=== PATIENT | male | born 1940 | race Caucasian/White ===

== ENCOUNTER → 2017-04-22 | Outpatient (CLI) | payer MEDICARE, OTHER ==
[~2017-04-22] MED LIST: AGM875T PO; ALPR-557 PO; ALPR0.5T22 PO; ALPR1TAB21; AMLO10TA PO; AMLO5TAB2 PO; ASP325TEC PO; ASPI-892; ATOR80TA PO; CLIN150C2 PO; CRV25T PO; DOXE25CA2 PO; DOXE50CA3; FENO135C PO; FISH1CAP15 PO; GBPN600T; MELA1TAB11 PO; MULT-608 PO; NIAC1CAP PO; OMEP40CA36 PO; OMG1KC; OXYC-199 PO; TMSL.4C; VALS1TAB12 PO; VALS1TAB4; WARF5TAB6 PO; WARF7.5T; WRF5T; WRF5T PO
--- NOTE | 2017-04-22 14:35 | Diagnostic Imaging Report ---
PROCEDURE: CT abdomen and pelvis without contrast. TECHNIQUE: Multiple contiguous axial images were obtained through the abdomen and pelvis without the use of intravenous contrast. INDICATION: Hematuria. COMPARISON: 02/14/2014. FINDINGS: There is minimal atelectasis and scarring. Lobulated contour of the liver is seen compatible with chronic liver disease or cirrhosis. There is no ascites. There is a calcified gallstone with no CT evidence of cholecystitis. The spleen, the adrenal glands, and the pancreas appear unremarkable for an unenhanced exam. Prominent vascular calcifications are seen in the upper abdomen and in the aortoiliac arterial segments. No aortic aneurysm. The kidneys demonstrate no hydronephrosis. No urinary tract stone is seen. There is no significant free fluid or fluid collection in the abdomen or pelvis. The prostate is enlarged at 5.8 cm in transverse dimension. A few colonic diverticula are seen with no evidence of diverticulitis. The osseous structures appear grossly unremarkable. IMPRESSION: 1. The prostate is enlarged. 2. No urinary tract stones or hydronephrosis. 3. Lobulated contour of the liver is suggestive of underlying chronic liver disease or cirrhosis. Dictated by: Dictated on workstation # [id number]
== END ==
LOC: RAD 12:33
PROVIDERS: ATTEND Urology
DX: N40.0 Benign prostatic hyperplasia without lower urinary tract symptoms (principal); R31.9 Hematuria, unspecified
CPT/HCPCS: 74176

== ENCOUNTER 2017-09-13 11:44 | Inpatient (IN) | payer MEDICARE, OTHER ==
[2017-09-13] VITALS (9 sets, daily range): BP systolic 121–143; BP diastolic 58–85
[~2017-09-13] VITALS: Ht 180.3 cm; Wt 85.0 kg
--- OUTSIDE RECORDS SUMMARY | 2017-09-13 12:16 | XMS REPORT | CCD ---
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 Name Role Phone PP Unavailable CCM Unavailable Summary Purpose Interface Exchange Insurance Providers Payer name Policy type / Coverage type Covered alliance party ID Effective Begin Date Effective End Date [place] Medicare Part B [id number] 2013 Unknown [facility] Medicare Part B [id number] 2013 Unknown Family history Mother Diagnosis Age At Onset No Family Disease Entered N/A Daughter Diagnosis Age At Onset No Family Disease Entered N/A Son Diagnosis Age At Onset No Family Disease Entered N/A Sister Diagnosis Age At Onset No Family Disease Entered N/A Son Diagnosis Age At Onset No Family Disease Entered N/A Father Diagnosis Age At Onset No Family Disease Entered N/A Daughter Diagnosis Age At Onset No Family Disease Entered N/A Daughter Diagnosis Age At Onset No Family Disease Entered N/A Social History Social History Element Codes Description Effective Dates Marital status Unknown Cheryle 03/21/2015 Living arrangements Unknown House 02/01/2013 Employment 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 smoked cigars 4 daily x 20 years. quit totally Jan 2011 01/29/[address]: 200742753 Never drinks alcohol quit 198601/29/2011 Has the patient ever used illegal drugs? 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 ICD-9: V58.61 ICD-10: Z79.01 Active 08/22/2014 Unknown Urinary tract infection, site not specified ICD-9: 599.0 ICD-10: N39.0 Active 04/05/2017 Unknown Essential (primary) hypertension ICD-9: 401.9 ICD-10: I10 Active 01/18/2014 Unknown Low back pain ICD-9: 724.2 ICD-10: M54.5 Active 04/06/2016 Unknown Mixed hyperlipidemia ICD-9: 272.4 ICD-10: E78.2 Active 03/19/2014 Unknown Cervicalgia ICD-9: 723.1 ICD-10: M54.2 Active 04/06/2016 Unknown Cough ICD-9: 786.2 ICD-10: R05 Active 10/21/2011 Unknown Encounter for general adult medical examination with abnormal findings ICD-9: V70.0 ICD-10: Z00.01 Active 04/16/2016 Unknown Encounter for immunization ICD-9: V04.81 ICD-10: Z23 Active 02/20/2016 Unknown Other secondary pulmonary hypertension ICD-9: 416.8 ICD-10: I27.2 Active 06/24/2015 Unknown Encounter for immunization ICD-9: V03.9 ICD-10: Z23 Active 03/19/2015 Unknown Pain in left knee ICD- 9: 719.46 ICD-10: M25.562 Active 02/21/2015 Unknown Pneumonia, unspecified organism ICD-9: 486 ICD-10: J18.9 Active 02/21/2015 Unknown Left knee pain ICD-9: 719.46 Active 12/27/2014 Unknown ESSENTIAL HYPERTENSION ICD-9: 401.9 Active 01/18/2014 Unknown H/O long-term (current) use of anticoagulants ICD-9: V58.61 Active 08/22/2014 Unknown HYPERLIPIDEMIA ICD-9: 272.4 Active 03/19/2014 Unknown Diarrhea ICD-9: 787.91 Active 03/05/2014 Unknown Abdominal abscess ICD- 9: 567.22 Active 02/19/2014 Unknown Cellulitis of oral soft tissues ICD-9: 528.3 Active 02/13/2014 Unknown Abdominal pain ICD-9: 789.00 Active 01/18/2014 Unknown Dehydration ICD-9: 276.51 Active 01/18/2014 Unknown FEVER NOS ICD-9: 780.60 Active 01/18/2014 Unknown Nausea alone ICD-9: 787.02 Active 01/18/2014 Unknown Rebound tenderness ICD -9: 789.60 Active 01/18/2014 Unknown Renal insufficiency ICD-9: 593.9 Active 01/18/2014 Unknown Right lower quadrant abdominal pain ICD-9: 789.03 Active 2013 Unknown Nodule of tongue ICD-9 : 784.2 Active 10/10/2013 Unknown VAC STREP PNEUMONIAE-FLU ICD-9: V06.6 Active 02/01/2013 Unknown VACCIN FOR INFLUENZA ICD-9: V04.81 Active 02/01/2013 Unknown Multiple actinic keratoses ICD-9: 702.0 Active 09/01/2012 Unknown Myalgia ICD-9: 729.1 Active 07/13/2012 Unknown CRP elevated ICD-9: 790.95 Active 07/07/2012 Unknown BACTERIAL PNEUMONIA NEC ICD-9: 482.89 Active 06/28/2012 Unknown Constipation ICD-9: 564.00 Active 05/25/2012 Unknown Constipation - functional ICD-9: 564.09 Active 10/21/2011 Unknown COUGH ICD-9: 786.2 Active 10/21/2011 Unknown Sacroiliitis ICD-9: 720.2 Active 06/24/2011 Unknown Fatigue ICD-9: 780.79 Active 03/23/2011 Unknown Cyst of ear canal ICD- 9: 380.89 Active 02/03/2011 Unknown Atrial fibrillation Unknown Active 01/29/2011 Unknown BPH Unknown Active 01/29/2011 Unknown Coronary Artery Disease Unknown Active 01/29/2011 Unknown Hyperlipidemia Unknown Active 01/29/2011 Unknown Hypertension Unknown Active 01/29/2011 Unknown peripheral neuropathy Unknown Active 01/29/2011 Unknown HYPOTENSION ICD-9: 458.9 Active 01/29/2011 Unknown PNEUMONIA (CAP) ICD-9 : 486 Active 01/29/2011 Unknown Problems Condition Codes Effective Dates Condition Status custodial (current) use of anticoagulants ICD-9: V58.61 ICD-10: Z79.01 08/22/2014 Active Urinary tract infection, site not specified ICD-9: 599.0 ICD-10: N39.0 04/05/2017 Active Essential (primary) hypertension ICD-9: 401.9 ICD-10: I10 01/18/2014 Active Low back pain ICD-9: 724.2 ICD-10: M54.5 04/06/2016 Active Mixed hyperlipidemia ICD-9: 272.4 ICD-10: E78.2 03/19/2014 Active Cervicalgia ICD-9: 723.1 ICD-10: M54.2 04/06/2016 Active Cough ICD-9: 786.2 ICD-10: R05 10/21/2011 Active Encounter for general adult medical examination with abnormal findings ICD-9: V70.0 ICD-10: Z00.01 04/16/2016 Active Encounter for immunization ICD-9: V04.81 ICD-10: Z23 02/20/2016 Active Other secondary pulmonary hypertension ICD-9: 416.8 ICD-10: I27.2 06/24/2015 Active Encounter for immunization ICD-9: V03.9 ICD-10: Z23 03/19/2015 Active Pain in left knee ICD- 9: 719.46 ICD-10: M25.562 02/21/2015 Active Pneumonia, unspecified organism ICD-9: 486 ICD-10: J18.9 02/21/2015 Active Left knee pain ICD-9: 719.46 12/27/2014 Active ESSENTIAL HYPERTENSION ICD-9: 401.9 01/18/2014 Active H/O long-term (current) use of anticoagulants ICD-9: V58.61 08/22/2014 Active HYPERLIPIDEMIA ICD-9: 272.4 03/19/2014 Active Diarrhea ICD-9: 787.91 03/05/2014 Active Abdominal abscess ICD- 9: 567.22 02/19/2014 Active Cellulitis of oral soft tissues ICD-9: 528.3 02/13/2014 Active Abdominal pain ICD-9: 789.00 01/18/2014 Active Dehydration ICD-9: 276.51 01/18/2014 Active FEVER NOS ICD-9: 780.60 01/18/2014 Active Nausea alone ICD-9: 787.02 01/18/2014 Active Rebound tenderness ICD -9: 789.60 01/18/2014 Active Renal insufficiency ICD-9: 593.9 01/18/2014 Active Right lower quadrant abdominal pain ICD-9: 789.03 01/18/2014 Active Nodule of tongue ICD-9 : 784.2 10/10/2013 Active VAC STREP PNEUMONIAE-FLU ICD-9: V06.6 02/01/2013 Active VACCIN FOR INFLUENZA ICD-9: V04.81 02/01/2013 Active Multiple actinic keratoses ICD-9: 702.0 09/01/2012 Active Myalgia ICD-9: 729.1 07/13/2012 Active CRP elevated ICD-9: 790.95 07/07/2012 Active BACTERIAL PNEUMONIA NEC ICD-9: 482.89 06/28/2012 Active Constipation ICD-9: 564.00 05/25/2012 Active Constipation - functional ICD-9: 564.09 10/21/2011 Active COUGH ICD-9: 786.2 10/21/2011 Active Sacroiliitis ICD-9: 720.2 06/24/2011 Active Fatigue ICD-9: 780.79 03/23/2011 Active Cyst of ear canal ICD- 9: 380.89 02/03/2011 Active Atrial fibrillation Unknown 01/29/2011 Active BPH Unknown 01/29/2011 Active Coronary Artery Disease Unknown 01/29/2011 Active Hyperlipidemia Unknown 01/29/2011 Active Hypertension Unknown 01/29/2011 Active peripheral neuropathy Unknown 01/29/2011 Active HYPOTENSION ICD-9: 458.9 01/29/2011 Active PNEUMONIA (CAP) ICD-9 : 486 01/29/2011 Active Medications Medication Codes Instructions Start Date Stop Date Status Fill Instructions amlodipine 10 mg tablet RxNorm: 516666 Tablet(s) TAKE ONE TABLET BY MOUTH DAILY 05/25/2017 02/18/2018 Active valsartan 160 mg tablet RxNorm: 259842 TAKE ONE TABLET BY MOUTH DAILY 04/26/2017 10/22/2017 Active carvedilol 25 mg tablet RxNorm: 781046 TAKE ONE TABLET BY MOUTH TWICE A DAY 03/22/2017 12/16/2017 Active Flomax 0.4 mg capsule RxNorm: 061768 TAKE ONE CAPSULE BY MOUTH DAILY 03/15/2017 03/09/2018 Active amlodipine 10 mg tablet RxNorm: 845463 TAKE ONE TABLET BY MOUTH DAILY 02/25/2017 05/24/2017 Inactive fenofibrate nanocrystallized 145 mg tablet RxNorm: 860650 TAKE ONE TABLET BY MOUTH DAILY 02/09/2017 12/05/2017 Active valsartan 160 mg tablet RxNorm: 246164 TAKE ONE TABLET BY MOUTH DAILY 01/25/2017 04/25/2017 Inactive Lipitor 80 mg tablet RxNorm: 625933 TAKE ONE TABLET BY MOUTH AT BEDTIME 11/04/2016 10/29/2017 Active valsartan 160 mg tablet RxNorm: 544640 TAKE ONE TABLET BY MOUTH DAILY 10/21/2016 01/24/2017 Inactive fenofibrate nanocrystallized 145 mg tablet RxNorm: 736933 TAKE ONE TABLET BY MOUTH DAILY 10/06/2016 02/08/2017 Inactive amlodipine 10 mg tablet RxNorm: 905437 1 Tablet(s) PO daily 02/20/2017 Inactive amlodipine 10 mg tablet RxNorm: 562670 1 Tablet(s) PO daily 09/23/2016 Inactive carvedilol 25 mg tablet RxNorm: 630946 TAKE ONE TABLET BY MOUTH TWICE A DAY 09/22/2016 03/20/2017 Inactive Coumadin 5 mg tablet RxNorm: 508434 TAKE 1 TABLET BY MOUTH ON WEDNESDAY , WEDNESDAY, WEDNESDAY, WEDNESDAY AND SUNDAYS. TAKE 1/2 TABLET BY MOUTH ON THURSDAYS. 07/07/2016 04/02/2017 Inactive fenofibrate nanocrystallized 145 mg tablet RxNorm: 553344 TAKE ONE TABLET BY MOUTH DAILY 06/10/2016 10/05/2016 Inactive valsartan 160 mg tablet RxNorm: 230219 1 Tablet(s) PO daily 04/201610/16/2016 Inactive Flomax 0.4 mg capsule RxNorm: 644544 TAKE ONE CAPSULE BY MOUTH DAILY 04/10/2016 03/05/2017 Inactive carvedilol 25 mg tablet RxNorm: 982210 TAKE ONE TABLET BY MOUTH TWICE A DAY 03/23/2016 09/18/2016 Inactive fenofibrate nanocrystallized 145 mg tablet RxNorm: 976962 TAKE ONE TABLET BY MOUTH DAILY 01/14/2016 06/09/2016 Inactive Coumadin 5 mg tablet RxNorm: 851504 Tablet(s) take 5mg daily except 1/2 pill wednesday/wednesday12/19/2015 07/06/2016 Inactive Coumadin 5 mg tablet RxNorm: 632417 Tablet(s) take 5mg wednesday/wednesday/wednesday/ wednesday and 1/2 pill wednesday//wednesday12/18/2015 12/18/2015 Inactive Lipitor 80 mg tablet RxNorm: 914940 TAKE ONE TABLET BY MOUTH AT BEDTIME 11/11/2015 11/04/2016 Inactive Lipitor 80 mg tablet RxNorm: 655604 TAKE ONE TABLET BY MOUTH AT BEDTIME 11/11/2015 11/04/2016 Inactive Lipitor 80 mg tablet RxNorm: 274889 TAKE ONE TABLET BY MOUTH AT BEDTIME 11/11/2015 11/04/2016 Inactive Lipitor 80 mg tablet RxNorm: 828444 TAKE ONE TABLET BY MOUTH AT BEDTIME 11/11/2015 11/03/2016 Inactive Coumadin 5 mg tablet RxNorm: 978923 Tablet(s) TAKE 1 TABLET BY MOUTH DAILY 10/29/2015 10/28/2015 Inactive betamethasone dipropionate 0.05 % topical ointment RxNorm: 881727 1 Application TOP QID 10/29/2015 11/04/2015 Inactive amlodipine 5 mg tablet RxNorm: 410268 1 Tablet(s) PO daily 09/23/2016 Inactive Coumadin 5 mg tablet RxNorm: 501561 Tablet(s) take 5mg wednesday/wednesday/wednesday/ wednesday/wednesday and 1/2 pill wednesday/10/29/2015 12/17/2015 Inactive valsartan 160 mg tablet RxNorm: 793963 1 Tablet(s) PO daily 04/17/2016 Inactive Norvasc 10 mg tablet RxNorm: 373632 Tablet(s) TAKE ONE TABLET BY MOUTH EVERY DAY 10/01/2015 10/28/2015 Inactive Norvasc 10 mg tablet RxNorm: 758804 Tablet(s) TAKE ONE TABLET BY MOUTH EVERY DAY 09/30/2015 09/30/2015 Inactive carvedilol 25 mg tablet RxNorm: 646848 TAKE ONE TABLET BY MOUTH TWICE A DAY 09/24/2015 03/21/2016 Inactive Coumadin 5 mg tablet RxNorm: 820801 TAKE 1 TABLET BY MOUTH ON WEDNESDAY , WEDNESDAY, WEDNESDAY, WEDNESDAY AND SUNDAYS. TAKE 1/2 TABLET BY MOUTH ON THURSDAYS. 06/28/2015 10/28/2015 Inactive fenofibrate nanocrystallized 145 mg tablet RxNorm: 474772 1 Tablet(s) PO daily 06/25/2015 01/13/2016 Inactive Diovan 160 mg tablet RxNorm: 278415 TAKE ONE TABLET BY MOUTH EVERY MORNING 05/17/2015 06/24/2015 Inactive Keflex 500 mg capsule RxNorm: 654425 1 Capsule(s) PO TID 201405/05/2015 Inactive Keflex 500 mg capsule RxNorm: 269670 1 Capsule(s) PO TID 201404/28/2015 Inactive Trilipix 135 mg capsule,delayed release RxNorm: 485441 TAKE ONE CAPSULE BY MOUTH DAILY 04/08/2015 06/24/2015 Inactive Flomax 0.4 mg capsule RxNorm: 480745 TAKE ONE CAPSULE BY MOUTH DAILY 04/03/2015 03/27/2016 Inactive Flomax 0.4 mg capsule RxNorm: 967321 Capsule(s) TAKE ONE CAPSULE BY MOUTH DAILY 04/03/2015 04/02/2015 Inactive carvedilol 25 mg tablet RxNorm: 426919 1 Tablet(s) PO BID 03/2609/21/2015 Inactive Trilipix 135 mg capsule,delayed release RxNorm: 532895 1 Capsule(s) PO daily 03/04/2015 04/02/2015 Inactive Levaquin 500 mg tablet RxNorm: 052122 1 Tablet(s) PO daily 10/201402/18/2015 Inactive Levaquin 500 mg tablet RxNorm: 357622 1 Tablet(s) PO daily 04/201512/25/2014 Inactive Lipitor 80 mg tablet RxNorm: 733788 1 Tablet(s) PO QH 201411/07/2015 Inactive Lipitor 80 mg tablet RxNorm: 706857 1 Tablet(s) PO QH 201411/12/2014 Inactive Norvasc 10 mg tablet RxNorm: 065621 TAKE ONE TABLET BY MOUTH EVERY DAY 09/26/2014 09/20/2015 Inactive Flomax 0.4 mg capsule RxNorm: 564324 TAKE ONE CAPSULE BY MOUTH DAILY 09/13/2014 03/11/2015 Inactive Norvasc 10 mg tablet RxNorm: 202818 Tablet(s) PO TAKE ONE TABLET BY MOUTH EVERY DAY 08/23/2014 09/25/2014 Inactive [SAVINGS FOR NON-COVERED DRUGS -- BIN:759839, PCN: ASPROD1, Group: XXXXX, ID# [id number], Questions: . THIS IS NOT INSURANCE.] Diovan 160 mg tablet RxNorm: 500900 1 Tablet(s) PO QAM 201402/17/2015 Inactive [SAVINGS FOR NON-COVERED DRUGS -- BIN:054022, PCN: ASPROD1, Group: XXXXX, ID # [id number], Questions: . THIS IS NOT INSURANCE.] Coumadin 5 mg tablet RxNorm: 903793 TAKE 1 TABLET BY MOUTH ON WEDNESDAY , WEDNESDAY, WEDNESDAY, WEDNESDAY AND SUNDAYS. TAKE 1/2 TABLET BY MOUTH ON THURSDAYS. 07/27/2014 06/21/2015 Inactive Diovan 160 mg tablet RxNorm: 315477 1/2 Tablet(s) PO BID 201408/21/2014 Inactive [SAVINGS FOR UNINSURED PATIENTS -- BIN:649064, PCN: ASPROD1, Group: [id number], ID # [id number], Process claim through MedImpact, for questions: . THIS IS NOT INSURANCE.] Diovan 320 mg tablet RxNorm: 523017 1/2 Tablet(s) PO BID 201305/22/2014 Inactive [SAVINGS FOR UNINSURED PATIENTS -- BIN:092088, PCN: ASPROD1, Group: [id number], ID # [id number], Process claim through MedImpact, for questions: . THIS IS NOT INSURANCE.] Flomax 0.4 mg capsule RxNorm: 445145 1 Capsule(s) PO daily 03/0509/12/2014 Inactive [SAVINGS FOR UNINSURED PATIENTS -- BIN:774896, PCN: ASPROD1, Group: [id number], ID# [id number], Process claim through MedImpact, for questions: . THIS IS NOT INSURANCE.] ciprofloxacin 500 mg tablet RxNorm: 967749 1 Tablet(s) PO BID 02/14/2014 02/23/2014 Inactive [SAVINGS FOR UNINSURED PATIENTS -- BIN:577746, PCN: ASPROD1, Group: [id number], ID# [id number], Process claim through MedImpact, for questions: [phone]. THIS IS NOT INSURANCE.] ciprofloxacin 500 mg tablet RxNorm: 326293 1 Tablet(s) PO BID 02/14/2014 02/13/2014 Inactive Flagyl 500 mg tablet RxNorm: 869509 1 Tablet(s) PO TID 201302/13/2014 Inactive Flagyl 500 mg tablet RxNorm: 659035 1 Tablet(s) PO TID 201302/23/2014 Inactive [SAVINGS FOR UNINSURED PATIENTS -- BIN:700078, PCN: ASPROD1, Group: [id number], ID # [id number], Process claim through MedImpact, for questions: . THIS IS NOT INSURANCE.] clindamycin 150 mg capsule RxNorm: 562192 1 Capsule(s) PO QID 02/13/2014 02/13/2014 Inactive [SAVINGS FOR UNINSURED PATIENTS -- BIN:299744, PCN: ASPROD1, Group: [id number], ID# [id number], Process claim through MedImpact, for questions: [phone]. THIS IS NOT INSURANCE.] Diovan 320 mg tablet RxNorm: 911417 1/2 Tablet(s) PO BID 201303/04/2014 Inactive [SAVINGS FOR UNINSURED PATIENTS -- BIN:537252, PCN: ASPROD1, Group: [id number], ID # [id number], Process claim through MedImpact, for questions: . THIS IS NOT INSURANCE.] triamcinolone acetonide 0.1 % topical ointment RxNorm: 7241914 1 Application TOP PRN 01/02/2014 01/01/2014 Inactive triamcinolone acetonide 0.1 % topical ointment RxNorm: 5153386 1 Application TOP PRN 01/02/2014 06/24/2015 Inactive [SAVINGS FOR UNINSURED PATIENTS -- BIN:069807, PCN: ASPROD1, Group: [id number], ID# [id number], Process claim through MedImpact, for questions: . THIS IS NOT INSURANCE.] Norvasc 10 mg tablet RxNorm: 247072 Tablet(s) PO TAKE ONE TABLET BY MOUTH EVERY DAY 08/28/2013 08/27/2013 Inactive Norvasc 10 mg tablet RxNorm: 029409 Tablet(s) PO TAKE ONE TABLET BY MOUTH EVERY DAY 08/28/2013 08/27/2013 Inactive Norvasc 10 mg tablet RxNorm: 565273 Tablet(s) PO TAKE ONE TABLET BY MOUTH EVERY DAY 08/28/2013 03/04/2014 Inactive Coumadin 5 mg tablet RxNorm: 002931 Tablet(s) PO TAKE ONE TABLET BY MOUTH ON WEDNESDAY, WED, WEDNESDAY, SAT. AND WEDNESDAY . TAKE 1/2 TABLET ON Thursdays07/10/2013 10/28/2015 Inactive Coumadin 5 mg tablet RxNorm: 244631 Tablet(s) PO TAKE ONE TABLET BY MOUTH ON WEDNESDAY, WED, WEDNESDAY, SAT. AND WEDNESDAY . TAKE 1/2 TABLET ON Thursdays07/10/2013 07/09/2013 Inactive Zithromax Z-Marcelo 250 mg tablet RxNorm: 331398 1 Tablet(s) PO UD 05/01/2013 05/05/2013 Inactive cefdinir 300 mg capsule RxNorm: 055249 1 Capsule(s) PO BID 05/07/2013 Inactive Senna-S 8.6 mg-50 mg tablet RxNorm: 179628 Tablet(s) PO TAKE ONE TABLET BY MOUTH TWICE A DAY 03/24/2013 03/04/2014 Inactive Senna-S 8.6 mg-50 mg tablet RxNorm: 830358 Tablet(s) PO TAKE ONE TABLET BY MOUTH TWICE A DAY 11/22/2012 03/23/2013 Inactive Norvasc 10 mg tablet RxNorm: 401018 Tablet(s) PO TAKE ONE TABLET BY MOUTH EVERY DAY 09/22/2012 08/27/2013 Inactive Coumadin 5 mg tablet RxNorm: 588953 Tablet(s) PO 07/04/2012 07/09/2013 Inactive 5mg Wed Sat Sun2.5 levofloxacin 500 mg tablet RxNorm: 368181 1 Tablet(s) PO daily 1.5 pills daily on days #1, #2, then one pill daily thereafter 06/28/2012 07/02/2012 Inactive Levaquin 500 mg tablet RxNorm: 239307 Tablet(s) PO 1.5 tabs on day 1 & 2, 1 tab on days 3,4,5,6 06/28/2012 08/31/2012 Inactive 1.5 tabs on day 1 & 2, 1 tab on days 3,4,5,6 Coumadin 5 mg tablet RxNorm: 938298 Tablet(s) PO 06/20/2012 07/03/2012 Inactive 5mg Mon Wed Frid Sat Sun2.5 Thurs Coumadin 5 mg tablet RxNorm: 140509 Tablet(s) PO 05/25/2012 06/19/2012 Inactive 5mg Mon Wed Frid Sat Sun2.5 Tu Th Norvasc 10 mg tablet RxNorm: 994996 1 Tablet(s) PO 05/25/2012 09/21/2012 Inactive Senna-S 8.6 mg-50 mg tablet RxNorm: 857250 1 Tablet(s) PO BID 05/25/2012 11/20/2012 Inactive Senna-S 8.6 mg-50 mg tablet RxNorm: 659697 1 Tablet(s) PO BID 04/29/2012 05/24/2012 Inactive Kenalog 40 mg/mL Susp for Injection RxNorm: 3770618 Milliliter(s) Inj 03/17/2012 03/17/2012 Inactive cefdinir 300 mg capsule RxNorm: 339355 1 Capsule(s) PO BID 12/201103/23/2012 Inactive Rocephin 500 mg Solution for Injection RxNorm: 986266 Inj 03/1703/17/2012 Inactive Vitamin D2 50,000 unit Cap RxNorm: 299196 1 Capsule(s) PO QW 08/01/2015 Inactive 50,000 weekly for 3 months then 1000 units daily thereafter Senna-S 8.6 mg-50 mg tablet RxNorm: 829793 1 Tablet(s) PO BID 10/21/2011 04/17/2012 Inactive Coumadin 5 mg Tab RxNorm: 084759 Tablet(s) PO 06/15/2011 06/14/2011 Inactive 5mg Mon Wed Frid Sat2.5 Tues Thurs Sat Coumadin 5 mg tablet RxNorm: 438467 Tablet(s) PO 06/15/2011 05/24/2012 Inactive 5mg Mon Wed Frid Sat2.5 Tues Th Sun Norvasc 5 mg tablet RxNorm: 177697 1 Tablet(s) PO daily 201005/21/2012 Inactive Rocephin 1 gram Solution for Injection RxNorm: 491359 Inj 01/3010/21/2011 Inactive Levaquin 500 mg Tab RxNorm: 116742 1 Tablet(s) PO daily 201010/21/2011 Inactive Rocephin 1 gram Solution for Injection RxNorm: 820414 Inj 01/2901/29/2011 Inactive cyclobenzaprine 5 mg tablet RxNorm: 995668 1 Tablet(s) PO Q8 as needed No Start Date Active aspirin 81 mg Tab RxNorm: 877674 1 Tablet(s) PO daily No Start Date Active Centrum Silver Tab RxNorm: 1 Tablet(s) PO daily No Start Date Active melatonin 3 mg tablet RxNorm: 053769 1 Tablet(s) PO QHS No Start Date Active alprazolam 0.5 mg tablet RxNorm: 453467 1 Tablet(s) PO TID as needed No Start Date Active polyethylene glycol 3350 17 gram oral powder packet RxNorm: 704397 17 Gram(s) PO daily No Start Date Active Fish Oil 1,000 mg Cap RxNorm: 4 Capsule(s) PO QH No Start Date 06/24/2015 Inactive Miralax 17 gram Oral Powder Packet RxNorm: 124130 1 PO daily No Start Date 03/04/2014 Inactive carvedilol 25 mg Tab RxNorm: 828910 1 Tablet(s) PO BID No Start Date 03/25/2015 Inactive Diovan 320 mg tablet RxNorm: 341947 1/2 Tablet(s) PO BID No Start Date 02/11/2014 Inactive doxepin 25 mg Cap RxNorm: 2678749 Capsule(s) PO No Start Date 03/04/2014 Inactive one bid and 2 at hs valsartan 160 mg tablet RxNorm: 611296 1 Tablet(s) PO daily No Start Date 10/20/2015 Inactive promethazine-codeine 6.25 mg-10 mg/5 mL Syrup RxNorm: 683559 5-10 Milliliter(s) PO Q4 PRN No Start Date 10/21/2011 Inactive Diovan HCT 320 mg-12.5 mg Tab RxNorm: 850277 1/2 Tablet(s) PO BID No Start Date 05/25/2012 Inactive niacin ER 500 mg Tab RxNorm: 813106 2 Tablet(s) PO QH No Start Date 08/21/2014 Inactive Vitamin D2 50,000 unit Cap RxNorm: 462813 1 Capsule(s) PO QW No Start Date 10/22/2011 Inactive 50,000 weekly for 3 months then 1000 units daily thereafter Trilipix 135 mg Cap RxNorm: 624636 1 Capsule(s) PO daily No Start Date 08/13/2014 Inactive Lipitor 80 mg Tab RxNorm: 808012 1 Tablet(s) PO QH No Start Date 11/12/2014 Inactive Coumadin 5 mg Tab RxNorm: 681378 Tablet(s) PO No Start Date 06/14/2011 Inactive 5mg Wed Sat2.5 Sat Norvasc 5 mg Tab RxNorm: 874016 1 Tablet(s) PO daily No Start Date 04/27/2011 Inactive Flomax 0.4 mg 24 hr Cap RxNorm: 485737 1 Capsule(s) PO QH No Start Date 03/04/2014 Inactive Levaquin 500 mg tablet RxNorm: 100357 Tablet(s) PO 1.5 tabs on day 1 & 2, 1 tab on days 3,4,5,6 No Start Date 06/27/2012 Inactive albuterol sulfate 2.5 mg/3 mL (0.083 %) Neb Solution RxNorm: 913912 3 Milliliter(s ) INH Q4 PRN No Start Date 03/04/2014 Inactive Zithromax Z-Marcelo 250 mg tablet RxNorm: 383951 Tablet(s) PO UD No Start Date 10/31/2012 Inactive alprazolam 0.5 mg Tab RxNorm: 221246 Tablet(s) PO No Start Date 06/25/2015 Inactive 1- 3 daily 2 at hs Medication Administered Medication Codes Instructions Start Date Status Rocephin 500 mg Solution for Injection RxNorm: 625494 03/17/2012 No longer Active Kenalog 40 mg/mL Susp for Injection RxNorm: 6848690 Milliliter 03/17/2012 No longer Active Rocephin 1 gram Solution for Injection RxNorm: 863271 01/29/2011 No longer Active Immunizations Vaccine Codes Date Status Influenza CVX: 141 02/21/2016 completed Influenza CVX: 141 03/20/2015 completed Influenza CVX: 141 02/08/2014 completed Influenza CVX: 141 02/01/2013 completed Pneumococcal (Adult) CVX: 33 02/01/2013 completed Assessments Condition Codes Effective Dates 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: 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 ICD-9: V58.61 04/05/2017 Urinary tract infection, site not specified ICD-10: N39.0 ICD-9: 599.0 04/05/2017 Mixed hyperlipidemia ICD-10: E78.2 ICD-9: 272.4 03/09/2017 Essential (primary) hypertension ICD-10: I10 ICD-9: 401.9 03/09/2017 Low back pain ICD-10: M54.5 ICD-9: 724.2 12/01/2016 Cough ICD-10: R05 ICD-9: 786.2 08/04/2016 Encounter for general adult medical examination with abnormal findings ICD-10: Z00.01 ICD-9: V70.0 04/17/2016 Cervicalgia ICD-10: M54.2 ICD-9: 723.1 04/07/2016 Encounter for immunization ICD-10: Z23 ICD-9: V04.81 02/21/2016 Other secondary pulmonary hypertension ICD-10: I27.2 ICD-9: 416.8 06/25/2015 Encounter for immunization ICD-10: Z23 ICD-9: V03.9 03/20/2015 Pneumonia, unspecified organism ICD-10: J18.9 ICD-9: 486 02/22/2015 Pain in left knee ICD-10: M25.562 ICD-9: 719.46 02/22/2015 Left knee pain ICD-9: 719.46 12/28/2014 ESSENTIAL HYPERTENSION ICD-9: 401.9 12/28 HYPERLIPIDEMIA ICD-9: 272.4 12/19/2014 H/O long-term (current) use of anticoagulants ICD-9: V58.61 12/19/2014 Diarrhea ICD-9: 787.91 03/05/2014 Abdominal abscess ICD-9: 567.22 2013 Abdominal pain ICD-9: 789.00 02/19/2014 Cellulitis of oral soft tissues ICD-9: 528.3 02/13/2014 Renal insufficiency ICD-9: 593.9 2013 Right lower quadrant abdominal pain ICD-9: 789.03 01/18/2014 FEVER NOS ICD-9: 780.60 01/18/2014 Nausea alone ICD-9: 787.02 01/18/2014 Dehydration ICD-9: 276.51 01/18/2014 Rebound tenderness ICD-9: 789.60 2013 Nodule of tongue ICD-9: 784.2 10/10/2013 COUGH ICD-9: 786.2 05/16/2013 PNEUMONIA (CAP) ICD-9: 486 05/01/2013 VAC STREP PNEUMONIAE-FLU ICD-9: V06.6 ACTINIC KERATOSIS ICD-9: 702.0 2012 Myalgia ICD-9: 729.1 07/13/2012 CRP elevated ICD-9: 790.95 07/13/2012 BACTERIAL PNEUMONIA NEC ICD-9: 482.89 Constipation ICD-9: 564.00 05/25/2012 Constipation - functional ICD-9: 564.09 10/21/2011 Sacroiliitis ICD-9: 720.2 06/24/2011 Fatigue ICD-9: 780.79 03/23/2011 Cyst of ear canal ICD-9: 380.89 2010 HYPOTENSION ICD-9: 458.9 02/03/2011 Reason For Visit Reason For Visit Effective Dates Notes prolonged PT (INR) 03/09/2017 prolonged PT (INR) 12/01/2016 prolonged PT (INR) 11/26/2016 hypertension 08/04/2016 Annual Medicare Wellness Exam 04/17/2016 hypertension 04/07/2016 vaccination against influenza 02/21/2016 hypertension 12/04/2015 hypertension 10/29/2015 back pain 08/02/2015 hypertension 06/25/2015 hypertension 03/21/2015 vaccination against influenza 03/20/2015 cough 02/22/2015 cough 02/12/2015 hypertension 12/28/2014 hypertension 12/19/2014 hypertension 08/22/2014 hypertension 05/23/2014 hypertension 03/19/2014 abdominal pain 03/05/2014 abdominal pain 02/19/2014 earache 02/13/2014 right ear abdominal pain 02/08/2014 abdominal pain 01/18/2014 hypertension 10/10/2013 hypertension 08/15/2013 hypertension 05/16/2013 hypertension 05/01/2013 hypertension 02/01/2013 hypertension 11/01/2012 changing lesion 09/07/2012 hypertension 09/01/2012 cough 07/07/2012 cough 06/28/2012 hypertension 06/08/2012 hypertension 05/25/2012 cough 03/17/2012 hypertension 02/17/2012 hypertension 10/21/2011 back pain 06/24/2011 hypertension 05/25/2011 blood pressure followup 03/23/2011 cough 02/03/2011 --Improved edema 01/30/2011 --Improved cough 01/29/2011 Results Observation Observation Code Item Item Code Result Date Pt [id number] PT 24.7 seconds 04/14/2017 Pt Gle7014 INR 2.2 04/14/2017 Pt Owr8500 Low Intensity - 1.5-2.0 04/14/2017 Pt Blr0019 Mod intensity - 2.0-3.0 04/14/2017 Pt Lza7714 Hi intensity - 3.0-4.0 04/14/2017 Cbc With Differential Ord2 WBC 6.55 K/ul 04/14/2017 Cbc With Differential Ord2 RBC 4.63 M/ul 04/14/2017 Cbc With Differential Ord2 HGB 12.8 g/dl 04/14/2017 Cbc With Differential Ord2 Neut% 65.0 % 04/14/2017 Cbc With Differential Ord2 HCT 37.6 % 04/14/2017 Cbc With Differential Ord2 Lymph% 25.5 % 04/14/2017 Cbc With Differential Ord2 MCV 81.2 fl 04/14/2017 Cbc With Differential Ord2 [place]% 7.3 % 04/14/2017 Cbc With Differential Ord2 MCH 27.6 pg 04/14/2017 Cbc With Differential Ord2 Eos% 2.0 % 04/14/2017 Cbc With Differential Ord2 MCHC 34.0 pg 04/14/2017 Cbc With Differential Ord2 Baso% 0.2 % 04/14/2017 Cbc With Differential Ord2 PLT 304 K/ul 04/14/2017 Cbc With Differential Ord2 RDW 18.5 % 04/14/2017 Cbc With Differential Ord2 Neut ABS# 4.26 K/ul 04/14/2017 Cbc With Differential Ord2 Lymph ABS# 1.67 K/ul 04/14/2017 Cbc With Differential Ord2 [place] ABS# 0.5 K/ul 04/14/2017 Cbc With Differential Ord2 Eos ABS# 0.1 K/ul 04/14/2017 Cbc With Differential Ord2 Baso ABS# 0.0 K/ul 04/14/2017 Urine Culture Ucult Preliminary NO Growth Day 1 04/07/2017 Urine Culture Ucult Complete NO Growth Day 2 04/07/2017 Pt Ryu5340 PT 33.2 seconds 04/05/2017 Pt Lyo1046 INR 3.2 04/05/2017 Pt Tla5026 Low Intensity - 1.5-2.0 04/05/2017 Pt Tjm0203 Mod intensity - 2.0-3.0 04/05/2017 Pt Meu4065 Hi intensity - 3.0-4.0 04/05/2017 Cbc With Differential Ord2 WBC 6.25 K/ul 03/08/2017 Cbc With Differential Ord2 RBC 4.48 M/ul 03/08/2017 Cbc With Differential Ord2 HGB 12.5 g/dl 03/08/2017 Cbc With Differential Ord2 HCT 36.9 % 03/08/2017 Cbc With Differential Ord2 Neut% 68.4 % 03/08/2017 Cbc With Differential Ord2 Lymph% 22.6 % 03/08/2017 Cbc With Differential Ord2 MCV 82.4 fl 03/08/2017 Cbc With Differential Ord2 [place]% 7.4 % 03/08/2017 Cbc With Differential Ord2 MCH 27.9 pg 03/08/2017 Cbc With Differential Ord2 MCHC 33.9 pg 03/08/2017 Cbc With Differential Ord2 Eos% 1.4 % 03/08/2017 Cbc With Differential Ord2 Baso% 0.2 % 03/08/2017 Cbc With Differential Ord2 PLT 258 K/ul 03/08/2017 Cbc With Differential Ord2 Neut ABS# 4.28 K/ul 03/08/2017 Cbc With Differential Ord2 RDW 18.0 % 03/08/2017 Cbc With Differential Ord2 Lymph ABS# 1.41 K/ul 03/08/2017 Cbc With Differential Ord2 [place] ABS# 0.5 K/ul 03/08/2017 Cbc With Differential Ord2 Eos ABS# 0.1 K/ul 03/08/2017 Cbc With Differential Ord2 Baso ABS# 0.0 K/ul 03/08/2017 Comp Metabolic Ihb468 NA 142 mEq/L 03/08/2017 Comp Metabolic Nvk100 K 4.3 mEq/L 03/08/2017 Comp Metabolic Apv165 CL 110 mEq/L 03/08/2017 Comp Metabolic Yvf893 CO2 24.0 mEq/L 03/08/2017 Comp Metabolic Ogi799 ANION GAP 12 03/08/2017 Comp Metabolic Cwh205 GLUCOSE 110 mg/dL 03/08/2017 Comp Metabolic Bob603 Creat 1.0 mg/dL 03/08/2017 Comp Metabolic Ktd108 eGFR 74 ml/min/1.73m2 03/08/2017 Comp Metabolic Ssg911 BUN 20 mg/dL 03/08/2017 Comp Metabolic Knq987 B/C Ratio 19.4 Ratio 03/08/2017 Comp Metabolic Ewk101 CALCIUM 8.9 mg/dL 03/08/2017 Comp Metabolic Zkl945 ALK PHOS 42 U/L 03/08/2017 Comp Metabolic Qpd895 AST(SGOT) 18 U/L 03/08/2017 Comp Metabolic Udr893 ALT(SGPT) 14 U/L 03/08/2017 Comp Metabolic Qsd789 BILI T 0.7 mg/dL 03/08/2017 Comp Metabolic Rbc053 ALBUMIN 4.1 g/dL 03/08/2017 Comp Metabolic Nia549 TPRO 7.2 g/dL 03/08/2017 Comp Metabolic Qtx573 GLOB 3.1 g/dL 03/08/2017 Comp Metabolic Iwd205 A/G Ratio 1.3 Ratio 03/08/2017 Comp Metabolic Qtl598 Osmo 286 mOsmo 03/08/2017 Lipid Ord30 CHOL 78 mg/dL 03/08/2017 Lipid Ord30 HDL 17.0 mg/dl 03/08/2017 Lipid Ord30 TRIG 84 mg/dL 03/08/2017 Lipid Ord30 LDL 44 mg/dL 03/08/2017 Lipid Ord30 C/HDL 4.6 Ratio 03/08/2017 Pt Gho3038 PT 30.5 seconds 03/08/2017 Pt Zdf7860 INR 2.9 03/08/2017 Pt Ejz4304 Low Intensity - 1.5-2.0 03/08/2017 Pt Smx7070 Mod intensity - 2.0-3.0 03/08/2017 Pt Qsg9327 Hi intensity - 3.0-4.0 03/08/2017 Tsh Ord6 hTSH II 2.02 uIU/mL 03/08/2017 Comp Metabolic Ftl603 NA 140 mEq/L 12/02/2016 Comp Metabolic Wjy422 K 4.1 mEq/L 12/02/2016 Comp Metabolic Tgb568 CL 109 mEq/L 12/02/2016 Comp Metabolic Asv207 CO2 23.0 mEq/L 12/02/2016 Comp Metabolic Rks519 ANION GAP 12 12/02/2016 Comp Metabolic Rqi265 GLUCOSE 117 mg/dL 12/02/2016 Comp Metabolic Qhf967 Creat 1.2 mg/dL 12/02/2016 Comp Metabolic Oxe442 eGFR 64 ml/min/1.73m2 12/02/2016 Comp Metabolic Kck398 BUN 18 mg/dL 12/02/2016 Comp Metabolic Kli183 B/C Ratio 15.3 Ratio 12/02/2016 Comp Metabolic Pat164 CALCIUM 9.7 mg/dL 12/02/2016 Comp Metabolic Zpc613 ALK PHOS 34 U/L 12/02/2016 Comp Metabolic Tfq457 AST(SGOT) 21 U/L 12/02/2016 Comp Metabolic Zkb760 ALT(SGPT) 17 U/L 12/02/2016 Comp Metabolic Nzi145 BILI T 0.6 mg/dL 12/02/2016 Comp Metabolic Byr487 ALBUMIN 4.2 g/dL 12/02/2016 Comp Metabolic Feb320 TPRO 7.6 g/dL 12/02/2016 Comp Metabolic Kqh925 GLOB 3.4 g/dL 12/02/2016 Comp Metabolic Ehk695 A/G Ratio 1.3 Ratio 12/02/2016 Comp Metabolic Huv351 Osmo 282 mOsmo 12/02/2016 Lipid Ord30 CHOL 98 mg/dL 12/02/2016 Lipid Ord30 HDL 19.0 mg/dl 12/02/2016 Lipid Ord30 TRIG 156 mg/dL 12/02/2016 Lipid Ord30 LDL 48 mg/dL 12/02/2016 Lipid Ord30 C/HDL 5.2 Ratio 12/02/2016 Cbc With Differential Ord2 WBC 7.21 K/ul 12/02/2016 Cbc With Differential Ord2 RBC 5.13 M/ul 12/02/2016 Cbc With Differential Ord2 HGB 14.2 g/dl 12/02/2016 Cbc With Differential Ord2 HCT 41.2 % 12/02/2016 Cbc With Differential Ord2 Neut% 63.0 % 12/02/2016 Cbc With Differential Ord2 Lymph% 27.5 % 12/02/2016 Cbc With Differential Ord2 MCV 80.3 fl 12/02/2016 Cbc With Differential Ord2 MCH 27.7 pg 12/02/2016 Cbc With Differential Ord2 [place]% 7.6 % 12/02/2016 Cbc With Differential Ord2 MCHC 34.5 pg 12/02/2016 Cbc With Differential Ord2 Eos% 1.9 % 12/02/2016 Cbc With Differential Ord2 Baso% 0.0 % 12/02/2016 Cbc With Differential Ord2 PLT 312 K/ul 12/02/2016 Cbc With Differential Ord2 RDW 21.2 % 12/02/2016 Cbc With Differential Ord2 Neut ABS# 4.54 K/ul 12/02/2016 Cbc With Differential Ord2 Lymph ABS# 1.98 K/ul 12/02/2016 Cbc With Differential Ord2 [place] ABS# 0.6 K/ul 12/02/2016 Cbc With Differential Ord2 Eos ABS# 0.1 K/ul 12/02/2016 Cbc With Differential Ord2 Baso ABS# 0.0 K/ul 12/02/2016 Tsh Ord6 hTSH II 1.65 uIU/mL 12/02/2016 Pt Xxr6818 PT 23.4 seconds 11/26/2016 Pt Zgd8931 INR 2.2 11/26/2016 Pt Nwh1628 Low Intensity - 1.5-2.0 11/26/2016 Pt Yhz8413 Mod intensity - 2.0-3.0 11/26/2016 Pt Mip0045 Hi intensity - 3.0-4.0 11/26/2016 Comp Metabolic Coe593 NA 139 mEq/L 08/03/2016 Comp Metabolic Eto313 K 3.9 mEq/L 08/03/2016 Comp Metabolic Gmo690 CL 109 mEq/L 08/03/2016 Comp Metabolic Ujn777 CO2 22.0 mEq/L 08/03/2016 Comp Metabolic Mut325 ANION GAP 12 08/03/2016 Comp Metabolic Nrm958 GLUCOSE 109 mg/dL 08/03/2016 Comp Metabolic Lqx719 Creat 1.0 mg/dL 08/03/2016 Comp Metabolic Egj366 eGFR 82 ml/min/1.73m2 08/03/2016 Comp Metabolic Rlx594 BUN 20 mg/dL 08/03/2016 Comp Metabolic Ksb846 B/C Ratio 21.1 Ratio 08/03/2016 Comp Metabolic Spj365 CALCIUM 9.3 mg/dL 08/03/2016 Comp Metabolic Rip909 ALK PHOS 44 U/L 08/03/2016 Comp Metabolic Xka668 AST(SGOT) 18 U/L 08/03/2016 Comp Metabolic Tkj346 ALT(SGPT) 14 U/L 08/03/2016 Comp Metabolic Zko752 BILI T 0.8 mg/dL 08/03/2016 Comp Metabolic Gzu657 ALBUMIN 4.0 g/dL 08/03/2016 Comp Metabolic Edj625 TPRO 7.2 g/dL 08/03/2016 Comp Metabolic Zav689 GLOB 3.2 g/dL 08/03/2016 Comp Metabolic Vze169 A/G Ratio 1.2 Ratio 08/03/2016 Comp Metabolic Sqh059 Osmo 281 mOsmo 08/03/2016 Pt Bjw1086 PT 21.6 seconds 08/03/2016 Pt Niz1799 INR 2.0 08/03/2016 Pt Wsr3226 Low Intensity - 1.5-2.0 08/03/2016 Pt Xuu8540 Mod intensity - 2.0-3.0 08/03/2016 Pt Vkd9531 Hi intensity - 3.0-4.0 08/03/2016 Cbc With Differential Ord2 WBC 6.24 K/ul 08/03/2016 Cbc With Differential Ord2 RBC 4.87 M/ul 08/03/2016 Cbc With Differential Ord2 HGB 13.3 g/dl 08/03/2016 Cbc With Differential Ord2 HCT 39.4 % 08/03/2016 Cbc With Differential Ord2 Neut% 69.3 % 08/03/2016 Cbc With Differential Ord2 MCV 80.9 fl 08/03/2016 Cbc With Differential Ord2 Lymph% 20.5 % 08/03/2016 Cbc With Differential Ord2 MCH 27.3 pg 08/03/2016 Cbc With Differential Ord2 [place]% 7.9 % 08/03/2016 Cbc With Differential Ord2 MCHC 33.8 pg 08/03/2016 Cbc With Differential Ord2 Eos% 2.1 % 08/03/2016 Cbc With Differential Ord2 Baso% 0.2 % 08/03/2016 Cbc With Differential Ord2 PLT 256 K/ul 08/03/2016 Cbc With Differential Ord2 RDW 19.0 % 08/03/2016 Cbc With Differential Ord2 Neut ABS# 4.33 K/ul 08/03/2016 Cbc With Differential Ord2 Lymph ABS# 1.28 K/ul 08/03/2016 Cbc With Differential Ord2 [place] ABS# 0.5 K/ul 08/03/2016 Cbc With Differential Ord2 Eos ABS# 0.1 K/ul 08/03/2016 Cbc With Differential Ord2 Baso ABS# 0.0 K/ul 08/03/2016 Tsh Ord6 hTSH II 1.66 uIU/mL 08/03/2016 Lipid Ord30 CHOL 85 mg/dL 08/03/2016 Lipid Ord30 HDL 17.0 mg/dl 08/03/2016 Lipid Ord30 TRIG 104 mg/dL 08/03/2016 Lipid Ord30 LDL 47 mg/dL 08/03/2016 Lipid Ord30 C/HDL 5.0 Ratio 08/03/2016 Tsh Ord6 hTSH II 1.87 uIU/mL 04/06/2016 Pt Trc6078 PT 23.2 seconds 04/06/2016 Pt Iss1021 INR 2.2 04/06/2016 Pt Pui7260 Low Intensity - 1.5-2.0 04/06/2016 Pt Qtb2630 Mod intensity - 2.0-3.0 04/06/2016 Pt Uai1198 Hi intensity - 3.0-4.0 04/06/2016 Cbc With Differential Ord2 WBC 7.07 K/ul 04/06/2016 Cbc With Differential Ord2 RBC 5.08 M/ul 04/06/2016 Cbc With Differential Ord2 HGB 13.8 g/dl 04/06/2016 Cbc With Differential Ord2 Neut% 67.8 % 04/06/2016 Cbc With Differential Ord2 HCT 41.2 % 04/06/2016 Cbc With Differential Ord2 MCV 81.1 fl 04/06/2016 Cbc With Differential Ord2 Lymph% 24.0 % 04/06/2016 Cbc With Differential Ord2 MCH 27.2 pg 04/06/2016 Cbc With Differential Ord2 [place]% 6.4 % 04/06/2016 Cbc With Differential Ord2 Eos% 1.7 % 04/06/2016 Cbc With Differential Ord2 MCHC 33.5 pg 04/06/2016 Cbc With Differential Ord2 PLT 275 K/ul 04/06/2016 Cbc With Differential Ord2 Baso% 0.1 % 04/06/2016 Cbc With Differential Ord2 Neut ABS# 4.79 K/ul 04/06/2016 Cbc With Differential Ord2 RDW 19.0 % 04/06/2016 Cbc With Differential Ord2 Lymph ABS# 1.70 K/ul 04/06/2016 Cbc With Differential Ord2 [place] ABS# 0.5 K/ul 04/06/2016 Cbc With Differential Ord2 Eos ABS# 0.1 K/ul 04/06/2016 Cbc With Differential Ord2 Baso ABS# 0.0 K/ul 04/06/2016 Comp Metabolic Knx185 NA 140 mEq/L 04/06/2016 Comp Metabolic Tjq271 K 4.2 mEq/L 04/06/2016 Comp Metabolic Tlm592 CL 108 mEq/L 04/06/2016 Comp Metabolic Rdw398 CO2 22.0 mEq/L 04/06/2016 Comp Metabolic Gkq511 ANION GAP 14 04/06/2016 Comp Metabolic Hew281 GLUCOSE 95 mg/dL 04/06/2016 Comp Metabolic Rxp418 Creat 1.1 mg/dL 04/06/2016 Comp Metabolic Rdc733 eGFR 69 ml/min/1.73m2 04/06/2016 Comp Metabolic Xvt177 BUN 19 mg/dL 04/06/2016 Comp Metabolic Lmh761 B/C Ratio 17.3 Ratio 04/06/2016 Comp Metabolic Qdl957 CALCIUM 9.5 mg/dL 04/06/2016 Comp Metabolic Iyx530 ALK PHOS 34 U/L 04/06/2016 Comp Metabolic Lev635 AST(SGOT) 20 U/L 04/06/2016 Comp Metabolic Acg716 ALT(SGPT) 18 U/L 04/06/2016 Comp Metabolic Uxf426 BILI T 0.8 mg/dL 04/06/2016 Comp Metabolic Ena022 ALBUMIN 4.2 g/dL 04/06/2016 Comp Metabolic Fwn075 TPRO 7.7 g/dL 04/06/2016 Comp Metabolic Yij046 GLOB 3.5 g/dL 04/06/2016 Comp Metabolic Ksk202 A/G Ratio 1.2 Ratio 04/06/2016 Comp Metabolic Pwg769 Osmo 281 mOsmo 04/06/2016 Pt Zgv4809 PT 33.1 seconds 03/20/2016 Pt Vdz1881 INR 3.5 03/20/2016 Pt Yvq4875 Low Intensity - 1.5-2.0 03/20/2016 Pt Vci9551 Mod intensity - 2.0-3.0 03/20/2016 Pt Ukd7644 Hi intensity - 3.0-4.0 03/20/2016 Pt Qff9465 PT 30.3 seconds 03/06/2016 Pt Tks4122 INR 3.1 03/06/2016 Pt Xfx5824 Low Intensity - 1.5-2.0 03/06/2016 Pt Gys7828 Mod intensity - 2.0-3.0 03/06/2016 Pt Kee2449 Hi intensity - 3.0-4.0 03/06/2016 Pt Eap8795 PT 33.5 seconds 02/21/2016 Pt Enc9589 INR 3.6 02/21/2016 Pt Oqe8806 Low Intensity - 1.5-2.0 02/21/2016 Pt Efn1159 Mod intensity - 2.0-3.0 02/21/2016 Pt Lkd6304 Hi intensity - 3.0-4.0 02/21/2016 Cbc With Differential Ord2 WBC 6.49 K/ul 01/30/2016 Cbc With Differential Ord2 RBC 4.83 M/ul 01/30/2016 Cbc With Differential Ord2 HGB 13.7 g/dl 01/30/2016 Cbc With Differential Ord2 Neut% 70.2 % 01/30/2016 Cbc With Differential Ord2 HCT 40.9 % 01/30/2016 Cbc With Differential Ord2 Lymph% 21.9 % 01/30/2016 Cbc With Differential Ord2 MCV 84.7 fl 01/30/2016 Cbc With Differential Ord2 [place]% 6.2 % 01/30/2016 Cbc With Differential Ord2 MCH 28.4 pg 01/30/2016 Cbc With Differential Ord2 MCHC 33.5 pg 01/30/2016 Cbc With Differential Ord2 Eos% 1.5 % 01/30/2016 Cbc With Differential Ord2 Baso% 0.2 % 01/30/2016 Cbc With Differential Ord2 PLT 314 K/ul 01/30/2016 Cbc With Differential Ord2 RDW 16.7 % 01/30/2016 Cbc With Differential Ord2 Neut ABS# 4.56 K/ul 01/30/2016 Cbc With Differential Ord2 Lymph ABS# 1.42 K/ul 01/30/2016 Cbc With Differential Ord2 [place] ABS# 0.4 K/ul 01/30/2016 Cbc With Differential Ord2 Eos ABS# 0.1 K/ul 01/30/2016 Cbc With Differential Ord2 Baso ABS# 0.0 K/ul 01/30/2016 Comp Metabolic Lnp110 NA 136 mEq/L 01/30/2016 Comp Metabolic Smd759 K 4.0 mEq/L 01/30/2016 Comp Metabolic Biw805 CL 103 mEq/L 01/30/2016 Comp Metabolic Gdh669 CO2 27.0 mEq/L 01/30/2016 Comp Metabolic Fjb637 ANION GAP 10 01/30/2016 Comp Metabolic Vrf400 GLUCOSE 106 mg/dL 01/30/2016 Comp Metabolic Cwu649 Creat 1.3 mg/dL 01/30/2016 Comp Metabolic Osu843 eGFR 60 ml/min/1.73m2 01/30/2016 Comp Metabolic Xql626 BUN 22 mg/dL 01/30/2016 Comp Metabolic Xci802 B/C Ratio 17.6 Ratio 01/30/2016 Comp Metabolic Yql694 CALCIUM 9.7 mg/dL 01/30/2016 Comp Metabolic Uvq039 ALK PHOS 29 U/L 01/30/2016 Comp Metabolic Ehn902 AST(SGOT) 19 U/L 01/30/2016 Comp Metabolic Xuy518 ALT(SGPT) 16 U/L 01/30/2016 Comp Metabolic Gll606 BILI T 0.6 mg/dL 01/30/2016 Comp Metabolic Raq388 ALBUMIN 4.4 g/dL 01/30/2016 Comp Metabolic Fmo705 TPRO 7.5 g/dL 01/30/2016 Comp Metabolic Msl602 GLOB 3.1 g/dL 01/30/2016 Comp Metabolic Gdy318 A/G Ratio 1.4 Ratio 01/30/2016 Comp Metabolic Ivf463 Osmo 276 mOsmo 01/30/2016 Pt Nhl3858 PT 22.3 seconds 01/30/2016 Pt Zol8093 INR 2.1 01/30/2016 Pt Qje6916 Low Intensity - 1.5-2.0 01/30/2016 Pt Rou3058 Mod intensity - 2.0-3.0 01/30/2016 Pt Xrw5220 Hi intensity - 3.0-4.0 01/30/2016 Lipid Ord30 CHOL 104 mg/dL 01/30/2016 Lipid Ord30 HDL 19.0 mg/dl 01/30/2016 Lipid Ord30 TRIG 137 mg/dL 01/30/2016 Lipid Ord30 LDL 58 mg/dL 01/30/2016 Lipid Ord30 C/HDL 5.5 Ratio 01/30/2016 Pt Rxo5645 PT 35.2 seconds 12/17/2015 Pt Fgi8655 INR 3.8 12/17/2015 Pt Jev8555 Low Intensity - 1.5-2.0 12/17/2015 Pt Htr6518 Mod intensity - 2.0-3.0 12/17/2015 Pt Jdy3755 Hi intensity - 3.0-4.0 12/17/2015 Comp Metabolic Pcj587 NA 140 mEq/L 10/25/2015 Comp Metabolic Wys447 K 4.2 mEq/L 10/25/2015 Comp Metabolic Fza150 CL 107 mEq/L 10/25/2015 Comp Metabolic Adg876 CO2 25.0 mEq/L 10/25/2015 Comp Metabolic Edl613 ANION GAP 12 10/25/2015 Comp Metabolic Wkp554 GLUCOSE 105 mg/dL 10/25/2015 Comp Metabolic Tog400 Creat 1.2 mg/dL 10/25/2015 Comp Metabolic Gjv441 eGFR 61 ml/min/1.73m2 10/25/2015 Comp Metabolic Ksh871 BUN 31 mg/dL 10/25/2015 Comp Metabolic Olc057 B/C Ratio 25.4 Ratio 10/25/2015 Comp Metabolic Glu107 CALCIUM 9.5 mg/dL 10/25/2015 Comp Metabolic Oay088 ALK PHOS 37 U/L 10/25/2015 Comp Metabolic Mwg629 AST(SGOT) 23 U/L 10/25/2015 Comp Metabolic Aay946 ALT(SGPT) 23 U/L 10/25/2015 Comp Metabolic Rqy450 BILI T 0.6 mg/dL 10/25/2015 Comp Metabolic Zjf671 ALBUMIN 4.2 g/dL 10/25/2015 Comp Metabolic Nrd506 TPRO 7.1 g/dL 10/25/2015 Comp Metabolic Lyw568 GLOB 3.0 g/dL 10/25/2015 Comp Metabolic Kkf870 A/G Ratio 1.4 Ratio 10/25/2015 Comp Metabolic Ypk119 Osmo 286 mOsmo 10/25/2015 Pt Tce0384 PT 29.9 seconds 10/25/2015 Pt Ifa8681 INR 3.1 10/25/2015 Pt Ztv1281 Low Intensity - 1.5-2.0 10/25/2015 Pt Xeq2481 Mod intensity - 2.0-3.0 10/25/2015 Pt Vyj4090 Hi intensity - 3.0-4.0 10/25/2015 Tsh Ord6 hTSH II 1.61 uIU/mL 10/25/2015 Lipid Ord30 CHOL 114 mg/dL 10/25/2015 Lipid Ord30 HDL 24.0 mg/dl 10/25/2015 Lipid Ord30 TRIG 141 mg/dL 10/25/2015 Lipid Ord30 LDL 62 mg/dL 10/25/2015 Lipid Ord30 C/HDL 4.8 Ratio 10/25/2015 Cbc With Differential Ord2 WBC 7.60 K/ul 10/25/2015 Cbc With Differential Ord2 RBC 4.88 M/ul 10/25/2015 Cbc With Differential Ord2 HGB 13.8 g/dl 10/25/2015 Cbc With Differential Ord2 Neut% 68.3 % 10/25/2015 Cbc With Differential Ord2 HCT 40.5 % 10/25/2015 Cbc With Differential Ord2 Lymph% 21.1 % 10/25/2015 Cbc With Differential Ord2 MCV 83.0 fl 10/25/2015 Cbc With Differential Ord2 MCH 28.3 pg 10/25/2015 Cbc With Differential Ord2 [place]% 8.7 % 10/25/2015 Cbc With Differential Ord2 Eos% 1.8 % 10/25/2015 Cbc With Differential Ord2 MCHC 34.1 pg 10/25/2015 Cbc With Differential Ord2 PLT 309 K/ul 10/25/2015 Cbc With Differential Ord2 Baso% 0.1 % 10/25/2015 Cbc With Differential Ord2 RDW 20.1 % 10/25/2015 Cbc With Differential Ord2 Neut ABS# 5.19 K/ul 10/25/2015 Cbc With Differential Ord2 Lymph ABS# 1.60 K/ul 10/25/2015 Cbc With Differential Ord2 [place] ABS# 0.7 K/ul 10/25/2015 Cbc With Differential Ord2 Eos ABS# 0.1 K/ul 10/25/2015 Cbc With Differential Ord2 Baso ABS# 0.0 K/ul 10/25/2015 Pt Hvy3681 PT 31.8 seconds 09/26/2015 Pt Oqq5164 INR 3.3 09/26/2015 Pt Jml4077 Low Intensity - 1.5-2.0 09/26/2015 Pt Tpx6641 Mod intensity - 2.0-3.0 09/26/2015 Pt Rbc7600 Hi intensity - 3.0-4.0 09/26/2015 Pt Ugo2851 PT 15.7 seconds 09/10/2015 Pt Boj6004 INR 1.3 09/10/2015 Pt Odc6698 Low Intensity - 1.5-2.0 09/10/2015 Pt Cdo0944 Mod intensity - 2.0-3.0 09/10/2015 Pt Kea4224 Hi intensity - 3.0-4.0 09/10/2015 Pt Fkr7499 PT 22.0 seconds 08/27/2015 Pt Vvz8569 INR 2.0 08/27/2015 Pt Wqs6078 Low Intensity - 1.5-2.0 08/27/2015 Pt Yqw1740 Mod intensity - 2.0-3.0 08/27/2015 Pt Mnb5721 Hi intensity - 3.0-4.0 08/27/2015 Pt Ccd1386 PT 22.0 seconds 03/20/2015 Pt Mhs5927 INR 2.0 03/20/2015 Pt Omt3593 Low Intensity - 1.5-2.0 03/20/2015 Pt Nom9848 Mod intensity - 2.0-3.0 03/20/2015 Pt Luf0496 Hi intensity - 3.0-4.0 03/20/2015 Lipid Ord30 CHOL 89 mg/dL 03/20/2015 Lipid Ord30 HDL 22.0 mg/dl 03/20/2015 Lipid Ord30 TRIG 95 mg/dL 03/20/2015 Lipid Ord30 LDL 48 mg/dL 03/20/2015 Lipid Ord30 C/HDL 4.0 Ratio 03/20/2015 Cbc With Differential Ord2 WBC 6.8 K/uL 03/20/2015 Cbc With Differential Ord2 LYM 1.5 K/uL 03/20/2015 Cbc With Differential Ord2 LYM% 21.6 % 03/20/2015 Cbc With Differential Ord2 NEUT/GRAN 4.9 K/uL 03/20/2015 Cbc With Differential Ord2 NEUT/GRAN % 72.3 % 03/20/2015 Cbc With Differential Ord2 MID 0.4 K/uL 03/20/2015 Cbc With Differential Ord2 MID% 6.1 % 03/20/2015 Cbc With Differential Ord2 RBC 4.74 M/uL 03/20/2015 Cbc With Differential Ord2 HGB 13.4 g/dL 03/20/2015 Cbc With Differential Ord2 HCT 39.9 % 03/20/2015 Cbc With Differential Ord2 MCV 84 fL 03/20/2015 Cbc With Differential Ord2 MCH 28 pg 03/20/2015 Cbc With Differential Ord2 MCHC 34 g/dL 03/20/2015 Cbc With Differential Ord2 PLT 257 K/uL 03/20/2015 Cbc With Differential Ord2 RDW 18.1 % 03/20/2015 Comp Metabolic Ebc645 NA 140 mEq/L 03/20/2015 Comp Metabolic Vvu365 K 4.3 mEq/L 03/20/2015 Comp Metabolic Aer936 CL 109 mEq/L 03/20/2015 Comp Metabolic Oal272 CO2 22.0 mEq/L 03/20/2015 Comp Metabolic Txv353 ANION GAP 13 03/20/2015 Comp Metabolic Gdt184 GLUCOSE 100 mg/dL 03/20/2015 Comp Metabolic Ikq883 Creat 1.1 mg/dL 03/20/2015 Comp Metabolic Igj764 eGFR 67 ml/min/1.73m2 03/20/2015 Comp Metabolic Dtd814 BUN 18 mg/dL 03/20/2015 Comp Metabolic Vdo131 B/C Ratio 15.9 Ratio 03/20/2015 Comp Metabolic Nlu787 CALCIUM 9.3 mg/dL 03/20/2015 Comp Metabolic Rji798 ALK PHOS 41 U/L 03/20/2015 Comp Metabolic Vxz100 AST(SGOT) 21 U/L 03/20/2015 Comp Metabolic Byb662 ALT(SGPT) 19 U/L 03/20/2015 Comp Metabolic Mkn294 BILI T 0.8 mg/dL 03/20/2015 Comp Metabolic Skj129 ALBUMIN 4.3 g/dL 03/20/2015 Comp Metabolic Mlt551 TPRO 7.5 g/dL 03/20/2015 Comp Metabolic Enq798 GLOB 3.2 g/dL 03/20/2015 Comp Metabolic Ouq722 A/G Ratio 1.4 Ratio 03/20/2015 Comp Metabolic Obb674 Osmo 281 mOsmo 03/20/2015 Tsh Ord6 hTSH II 1.69 uIU/mL 03/20/2015 Pt Wcs9148 PT 23.7 seconds 02/20/2015 Pt Ukr4730 INR 2.2 02/20/2015 Pt Voe2973 Low Intensity - 1.5-2.0 02/20/2015 Pt Dat3986 Mod intensity - 2.0-3.0 02/20/2015 Pt Ljm4388 Hi intensity - 3.0-4.0 02/20/2015 Pt Rka9377 PT 23.6 seconds 02/15/2015 Pt Gls6811 INR 2.2 02/15/2015 Pt Dbc2121 Low Intensity - 1.5-2.0 02/15/2015 Pt Kkx9401 Mod intensity - 2.0-3.0 02/15/2015 Pt Jmq9421 Hi intensity - 3.0-4.0 02/15/2015 Pt Rrj7373 PT 25.2 seconds 02/12/2015 Pt Kyj2976 INR 2.4 02/12/2015 Pt Acc1936 Low Intensity - 1.5-2.0 02/12/2015 Pt Imo9934 Mod intensity - 2.0-3.0 02/12/2015 Pt Kpb0893 Hi intensity - 3.0-4.0 02/12/2015 Pt Tqs8976 PT 25.8 seconds 12/27/2014 Pt Jze5795 INR 2.4 12/27/2014 Pt Srd7667 Low Intensity - 1.5-2.0 12/27/2014 Pt Nab1204 Mod intensity - 2.0-3.0 12/27/2014 Pt Ssd9994 Hi intensity - 3.0-4.0 12/27/2014 Comp Metabolic Kwv865 NA 138 mEq/L 12/18/2014 Comp Metabolic Hgc714 K 4.3 mEq/L 12/18/2014 Comp Metabolic Aep723 CL 107 mEq/L 12/18/2014 Comp Metabolic Pso517 CO2 25.0 mEq/L 12/18/2014 Comp Metabolic Ltr113 ANION GAP 10 12/18/2014 Comp Metabolic Ona492 GLUCOSE 105 mg/dL 12/18/2014 Comp Metabolic Rma336 Creat 1.1 mg/dL 12/18/2014 Comp Metabolic Uqc228 eGFR 69 ml/min/1.73m2 12/18/2014 Comp Metabolic Hht518 BUN 16 mg/dL 12/18/2014 Comp Metabolic Jxx595 B/C Ratio 14.5 Ratio 12/18/2014 Comp Metabolic Kkf355 CALCIUM 9.9 mg/dL 12/18/2014 Comp Metabolic Mhf105 ALK PHOS 39 U/L 12/18/2014 Comp Metabolic Yqw486 AST(SGOT) 19 U/L 12/18/2014 Comp Metabolic Msc620 ALT(SGPT) 18 U/L 12/18/2014 Comp Metabolic Apb956 BILI T 0.7 mg/dL 12/18/2014 Comp Metabolic Mip139 ALBUMIN 4.4 g/dL 12/18/2014 Comp Metabolic Wag211 TPRO 7.8 g/dL 12/18/2014 Comp Metabolic Ovq271 GLOB 3.4 g/dL 12/18/2014 Comp Metabolic Yil752 A/G Ratio 1.3 Ratio 12/18/2014 Comp Metabolic Ibu736 Osmo 277 mOsmo 12/18/2014 Pt Xoa9779 PT 26.4 seconds 12/18/2014 Pt Czq1647 INR 2.5 12/18/2014 Pt Asb6946 Low Intensity - 1.5-2.0 12/18/2014 Pt Nls7613 Mod intensity - 2.0-3.0 12/18/2014 Pt Wan6485 Hi intensity - 3.0-4.0 12/18/2014 Cbc With Differential Ord2 WBC 6.2 K/uL 12/18/2014 Cbc With Differential Ord2 LYM 1.5 K/uL 12/18/2014 Cbc With Differential Ord2 LYM% 25.0 % 12/18/2014 Cbc With Differential Ord2 NEUT/GRAN 4.3 K/uL 12/18/2014 Cbc With Differential Ord2 NEUT/GRAN % 70.0 % 12/18/2014 Cbc With Differential Ord2 MID 0.3 K/uL 12/18/2014 Cbc With Differential Ord2 MID% 5.0 % 12/18/2014 Cbc With Differential Ord2 RBC 5.03 M/uL 12/18/2014 Cbc With Differential Ord2 HGB 13.7 g/dL 12/18/2014 Cbc With Differential Ord2 HCT 42.4 % 12/18/2014 Cbc With Differential Ord2 MCV 84 fL 12/18/2014 Cbc With Differential Ord2 MCH 27 pg 12/18/2014 Cbc With Differential Ord2 MCHC 32 g/dL 12/18/2014 Cbc With Differential Ord2 PLT 293 K/uL 12/18/2014 Cbc With Differential Ord2 RDW 18.3 % 12/18/2014 Tsh Ord6 hTSH II 1.79 uIU/mL 12/18/2014 Lipid Ord30 CHOL 85 mg/dL 12/18/2014 Lipid Ord30 HDL 22.0 mg/dl 12/18/2014 Lipid Ord30 TRIG 89 mg/dL 12/18/2014 Lipid Ord30 LDL 45 mg/dL 12/18/2014 Lipid Ord30 C/HDL 3.9 Ratio 12/18/2014 ESR [id number] ESR 28 MM/HR 07/14/2012 CRP [id number] CRP 0.4 MG/DL 07/13/2012 PT/MC [id number] PRO TIME 24.6 SEC 07/13/2012 PT/MC [id number] INR [facility] 2.2 07/13/2012 Review of Systems System Result Effective Dates Constitutional No night sweats 2016 Constitutional No chills 03/09/2017 Constitutional No fever 03/09/2017 Eyes No blindness 03/09/2017 Eyes No vision change 03/09/2017 Ears/Nose/Throat/Neck No dizziness 2016 Ears/Nose/Throat/Neck No dysphagia 2016 Ears/Nose/Throat/Neck No headache 2016 Ears/Nose/Throat/Neck No hearing loss Ears/Nose/Throat/Neck No nasal allergies 03/09/2017 Ears/Nose/Throat/Neck No sore throat Ears/Nose/Throat/Neck No postnasal drip 03/09/2017 Ears/Nose/Throat/Neck No sinus congestion 03/09/2017 Cardiovascular No chest pain/pressure Cardiovascular No dyspnea 03/09/2017 Cardiovascular No edema 03/09/2017 Cardiovascular No exercise intolerance Cardiovascular No fatigue 03/09/2017 Cardiovascular hypertension 03/09/2017 Cardiovascular No near-syncope/dizziness 03/09/2017 Respiratory No chest congestion 2016 Respiratory No chest tightness 2016 Gastrointestinal No anorexia 03/09/2017 Gastrointestinal No constipation 2016 Gastrointestinal No diarrhea 03/09/2017 Genitourinary/Nephrology No dysuria 03/09 Genitourinary/Nephrology No nocturia Genitourinary/Nephrology No urinary incontinence 03/09/2017 Musculoskeletal No stiffness 03/09/2017 Musculoskeletal No arthralgia(s) 2016 Dermatologic No rash 03/09/2017 Dermatologic No scar 03/09/2017 Neurologic No dizziness 03/09/2017 Neurologic No headache 03/09/2017 Psychiatric No anxiety 03/09/2017 Psychiatric No depression 03/09/2017 Constitutional No night sweats 2016 Constitutional No chills 12/01/2016 Constitutional No fever 12/01/2016 Eyes No blindness 12/01/2016 Eyes No vision change 12/01/2016 Ears/Nose/Throat/Neck No dental pain Ears/Nose/Throat/Neck No dizziness 2016 Ears/Nose/Throat/Neck No dysphagia 2016 Ears/Nose/Throat/Neck No headache 2016 Ears/Nose/Throat/Neck No hearing loss Ears/Nose/Throat/Neck No nasal allergies 12/01/2016 Ears/Nose/Throat/Neck No sore throat Ears/Nose/Throat/Neck No postnasal drip 12/01/2016 Ears/Nose/Throat/Neck No sinus congestion 12/01/2016 Cardiovascular No chest pain/pressure Cardiovascular No dyspnea 12/01/2016 Cardiovascular No edema 12/01/2016 Cardiovascular No exercise intolerance Cardiovascular No fatigue 12/01/2016 Cardiovascular hypertension 12/01/2016 Cardiovascular No near-syncope/dizziness 12/01/2016 Respiratory No chest congestion 2016 Respiratory No chest tightness 2016 Respiratory cough 12/01/2016 Gastrointestinal No anorexia 12/01/2016 Gastrointestinal No constipation 2016 Gastrointestinal No diarrhea 12/01/2016 Genitourinary/Nephrology No dysuria 12/01 Genitourinary/Nephrology No nocturia Genitourinary/Nephrology No urinary incontinence 12/01/2016 Musculoskeletal No stiffness 12/01/2016 Musculoskeletal No arthralgia(s) 2016 Dermatologic No rash 12/01/2016 Dermatologic No scar 12/01/2016 Neurologic No dizziness 12/01/2016 Neurologic No headache 12/01/2016 Psychiatric No anxiety 12/01/2016 Psychiatric No depression 12/01/2016 Constitutional No night sweats 2016 Constitutional No chills 11/26/2016 Constitutional No fever 11/26/2016 Eyes No blindness 11/26/2016 Eyes No vision change 11/26/2016 Ears/Nose/Throat/Neck No dental pain Ears/Nose/Throat/Neck No dizziness 2016 Ears/Nose/Throat/Neck No dysphagia 2016 Ears/Nose/Throat/Neck No headache 2016 Ears/Nose/Throat/Neck No hearing loss Ears/Nose/Throat/Neck No nasal allergies 11/26/2016 Ears/Nose/Throat/Neck No sore throat Ears/Nose/Throat/Neck No postnasal drip 11/26/2016 Ears/Nose/Throat/Neck No sinus congestion 11/26/2016 Cardiovascular No chest pain/pressure Cardiovascular No dyspnea 11/26/2016 Cardiovascular No edema 11/26/2016 Cardiovascular No exercise intolerance Cardiovascular No fatigue 11/26/2016 Cardiovascular hypertension 11/26/2016 Cardiovascular No near-syncope/dizziness 11/26/2016 Respiratory No chest congestion 2016 Respiratory No chest tightness 2016 Gastrointestinal No anorexia 11/26/2016 Gastrointestinal No constipation 2016 Gastrointestinal No diarrhea 11/26/2016 Genitourinary/Nephrology No dysuria 11/26 Genitourinary/Nephrology No nocturia Genitourinary/Nephrology No urinary incontinence 11/26/2016 Musculoskeletal No stiffness 11/26/2016 Dermatologic No rash 11/26/2016 Dermatologic No scar 11/26/2016 Neurologic No dizziness 11/26/2016 Neurologic No headache 11/26/2016 Psychiatric No anxiety 11/26/2016 Psychiatric No depression 11/26/2016 Musculoskeletal back pain 11/26/2016 Musculoskeletal neck pain 11/26/2016 Constitutional No night sweats 2016 Constitutional No chills 08/04/2016 Constitutional No fever 08/04/2016 Eyes No blindness 08/04/2016 Eyes No vision change 08/04/2016 Ears/Nose/Throat/Neck No dental pain Ears/Nose/Throat/Neck No dizziness 2016 Ears/Nose/Throat/Neck No dysphagia 2016 Ears/Nose/Throat/Neck No headache 2016 Ears/Nose/Throat/Neck No hearing loss Ears/Nose/Throat/Neck No nasal allergies 08/04/2016 Ears/Nose/Throat/Neck No sore throat Ears/Nose/Throat/Neck No postnasal drip 08/04/2016 Ears/Nose/Throat/Neck No sinus congestion 08/04/2016 Cardiovascular No chest pain/pressure Cardiovascular No dyspnea 08/04/2016 Cardiovascular No edema 08/04/2016 Cardiovascular No exercise intolerance Cardiovascular No fatigue 08/04/2016 Cardiovascular hypertension 08/04/2016 Cardiovascular No near-syncope/dizziness 08/04/2016 Respiratory No chest congestion 2016 Respiratory No chest tightness 2016 Respiratory cough 08/04/2016 Gastrointestinal No anorexia 08/04/2016 Gastrointestinal No constipation 2016 Gastrointestinal No diarrhea 08/04/2016 Genitourinary/Nephrology No dysuria 08/04 Genitourinary/Nephrology No nocturia Genitourinary/Nephrology No urinary incontinence 08/04/2016 Musculoskeletal No stiffness 08/04/2016 Musculoskeletal No arthralgia(s) 2016 Dermatologic No rash 08/04/2016 Dermatologic No scar 08/04/2016 Neurologic No dizziness 08/04/2016 Neurologic No headache 08/04/2016 Psychiatric No anxiety 08/04/2016 Psychiatric No depression 08/04/2016 Constitutional No chills 04/17/2016 Constitutional No fever 04/17/2016 Eyes No eye erythema 04/17/2016 Eyes No vision change 04/17/2016 Ears/Nose/Throat/Neck No nasal allergies 04/17/2016 Ears/Nose/Throat/Neck No sore throat 01/2016 Ears/Nose/Throat/Neck No postnasal drip 04/17/2016 Ears/Nose/Throat/Neck No sinus congestion 04/17/2016 Cardiovascular No chest pain/pressure 01/2016 Cardiovascular No dyspnea 04/17/2016 Respiratory No chest congestion 2015 Respiratory No cough 04/17/2016 Gastrointestinal No constipation 2015 Gastrointestinal No diarrhea 04/17/2016 Dermatologic No rash 04/17/2016 Psychiatric No anxiety 04/17/2016 Psychiatric No depression 04/17/2016 Constitutional No recent illness 2015 Ears/Nose/Throat/Neck No nasal discharge 04/17/2016 Cardiovascular No edema 04/17/2016 Respiratory No dyspnea 04/17/2016 Gastrointestinal No vomiting 04/17/2016 Gastrointestinal No nausea 04/17/2016 Gastrointestinal No abdominal pain 2015 Musculoskeletal back pain 04/17/2016 Neurologic No alteration of consciousness 04/17/2016 Neurologic No mental status change 2015 Constitutional No night sweats 2015 Constitutional No chills 04/07/2016 Constitutional No fever 04/07/2016 Eyes No blindness 04/07/2016 Eyes No vision change 04/07/2016 Ears/Nose/Throat/Neck No dental pain Ears/Nose/Throat/Neck No dizziness 2015 Ears/Nose/Throat/Neck No dysphagia 2015 Ears/Nose/Throat/Neck No headache 2015 Ears/Nose/Throat/Neck No hearing loss Ears/Nose/Throat/Neck No nasal allergies 04/07/2016 Ears/Nose/Throat/Neck No sore throat Ears/Nose/Throat/Neck No postnasal drip 04/07/2016 Ears/Nose/Throat/Neck No sinus congestion 04/07/2016 Cardiovascular No chest pain/pressure Cardiovascular No dyspnea 04/07/2016 Cardiovascular No edema 04/07/2016 Cardiovascular No exercise intolerance Cardiovascular No fatigue 04/07/2016 Cardiovascular hypertension 04/07/2016 Cardiovascular No near-syncope/dizziness 04/07/2016 Respiratory No chest congestion 2015 Respiratory No chest tightness 2015 Respiratory cough 04/07/2016 Gastrointestinal No anorexia 04/07/2016 Gastrointestinal No constipation 2015 Gastrointestinal No diarrhea 04/07/2016 Genitourinary/Nephrology No dysuria 04/07 Genitourinary/Nephrology No nocturia Genitourinary/Nephrology No urinary incontinence 04/07/2016 Musculoskeletal No stiffness 04/07/2016 Musculoskeletal No arthralgia(s) 2015 Dermatologic No rash 04/07/2016 Dermatologic No scar 04/07/2016 Neurologic No dizziness 04/07/2016 Neurologic No headache 04/07/2016 Psychiatric No anxiety 04/07/2016 Psychiatric No depression 04/07/2016 Constitutional No night sweats 2015 Constitutional No chills 12/04/2015 Constitutional No fever 12/04/2015 Eyes No blindness 12/04/2015 Eyes No vision change 12/04/2015 Ears/Nose/Throat/Neck No dental pain Ears/Nose/Throat/Neck No dizziness 2015 Ears/Nose/Throat/Neck No dysphagia 2015 Ears/Nose/Throat/Neck No headache 2015 Ears/Nose/Throat/Neck No hearing loss Ears/Nose/Throat/Neck No nasal allergies 12/04/2015 Ears/Nose/Throat/Neck No sore throat Ears/Nose/Throat/Neck No postnasal drip 12/04/2015 Ears/Nose/Throat/Neck No sinus congestion 12/04/2015 Cardiovascular No chest pain/pressure Cardiovascular No dyspnea 12/04/2015 Cardiovascular No edema 12/04/2015 Cardiovascular No exercise intolerance Cardiovascular No fatigue 12/04/2015 Cardiovascular hypertension 12/04/2015 Cardiovascular No near-syncope/dizziness 12/04/2015 Respiratory No chest congestion 2015 Respiratory No chest tightness 2015 Respiratory cough 12/04/2015 Gastrointestinal No anorexia 12/04/2015 Gastrointestinal No constipation 2015 Gastrointestinal No diarrhea 12/04/2015 Genitourinary/Nephrology No dysuria 12/03 Genitourinary/Nephrology No nocturia Genitourinary/Nephrology No urinary incontinence 12/04/2015 Musculoskeletal No stiffness 12/04/2015 Musculoskeletal No arthralgia(s) 2015 Dermatologic No rash 12/04/2015 Dermatologic No scar 12/04/2015 Neurologic No dizziness 12/04/2015 Neurologic No headache 12/04/2015 Psychiatric No anxiety 12/04/2015 Psychiatric No depression 12/04/2015 Constitutional No night sweats 2015 Constitutional No chills 10/29/2015 Constitutional No fever 10/29/2015 Eyes No blindness 10/29/2015 Eyes No vision change 10/29/2015 Ears/Nose/Throat/Neck No dental pain Ears/Nose/Throat/Neck No dizziness 2015 Ears/Nose/Throat/Neck No dysphagia 2015 Ears/Nose/Throat/Neck No headache 2015 Ears/Nose/Throat/Neck No hearing loss Ears/Nose/Throat/Neck No nasal allergies 10/29/2015 Ears/Nose/Throat/Neck No sore throat Ears/Nose/Throat/Neck No postnasal drip 10/29/2015 Ears/Nose/Throat/Neck No sinus congestion 10/29/2015 Cardiovascular No chest pain/pressure Cardiovascular No dyspnea 10/29/2015 Cardiovascular No edema 10/29/2015 Cardiovascular No exercise intolerance Cardiovascular No fatigue 10/29/2015 Cardiovascular hypertension 10/29/2015 Cardiovascular No near-syncope/dizziness 10/29/2015 Respiratory No chest congestion 2015 Respiratory No chest tightness 2015 Respiratory cough 10/29/2015 Gastrointestinal No anorexia 10/29/2015 Gastrointestinal No constipation 2015 Gastrointestinal No diarrhea 10/29/2015 Genitourinary/Nephrology No dysuria 10/28 Genitourinary/Nephrology No nocturia Genitourinary/Nephrology No urinary incontinence 10/29/2015 Musculoskeletal No stiffness 10/29/2015 Musculoskeletal No arthralgia(s) 2015 Dermatologic No rash 10/29/2015 Dermatologic No scar 10/29/2015 Neurologic No dizziness 10/29/2015 Neurologic No headache 10/29/2015 Psychiatric No anxiety 10/29/2015 Psychiatric No depression 10/29/2015 Eyes No eye erythema 08/02/2015 Eyes No vision change 08/02/2015 Ears/Nose/Throat/Neck No nasal allergies 08/02/2015 Cardiovascular No chest pain/pressure Cardiovascular No dyspnea 08/02/2015 Respiratory No chest congestion 2015 Respiratory No cough 08/02/2015 Gastrointestinal No anorexia 08/02/2015 Gastrointestinal No constipation 2015 Gastrointestinal No diarrhea 08/02/2015 Genitourinary/Nephrology No dysuria 08/01 Dermatologic No rash 08/02/2015 Dermatologic No scar 08/02/2015 Psychiatric No anxiety 08/02/2015 Psychiatric No depression 08/02/2015 Constitutional No recent illness 2015 Ears/Nose/Throat/Neck No nasal discharge 08/02/2015 Musculoskeletal back pain 08/02/2015 Neurologic No alteration of consciousness 08/02/2015 Neurologic No mental status change 2015 Constitutional No night sweats 2015 Constitutional No chills 06/25/2015 Constitutional No fever 06/25/2015 Ears/Nose/Throat/Neck No dental pain Ears/Nose/Throat/Neck No dizziness 2015 Ears/Nose/Throat/Neck No dysphagia 2015 Ears/Nose/Throat/Neck No headache 2015 Ears/Nose/Throat/Neck No hearing loss Ears/Nose/Throat/Neck No nasal allergies 06/25/2015 Ears/Nose/Throat/Neck No sore throat Ears/Nose/Throat/Neck No postnasal drip 06/25/2015 Ears/Nose/Throat/Neck No sinus congestion 06/25/2015 Cardiovascular No chest pain/pressure Cardiovascular No dyspnea 06/25/2015 Cardiovascular No edema 06/25/2015 Cardiovascular No exercise intolerance Cardiovascular No fatigue 06/25/2015 Cardiovascular hypertension 06/25/2015 Cardiovascular No near-syncope/dizziness 06/25/2015 Respiratory No chest congestion 2015 Respiratory No chest tightness 2015 Respiratory cough 06/25/2015 Gastrointestinal No anorexia 06/25/2015 Gastrointestinal No constipation 2015 Gastrointestinal No diarrhea 06/25/2015 Musculoskeletal No stiffness 06/25/2015 Musculoskeletal No arthralgia(s) 2015 Dermatologic No rash 06/25/2015 Dermatologic No scar 06/25/2015 Neurologic No dizziness 06/25/2015 Neurologic No headache 06/25/2015 Psychiatric No anxiety 06/25/2015 Psychiatric No depression 06/25/2015 Genitourinary/Nephrology No dysuria 06/25 Genitourinary/Nephrology No nocturia Genitourinary/Nephrology No urinary incontinence 06/25/2015 Eyes No blindness 06/25/2015 Eyes No vision change 06/25/2015 Constitutional No night sweats 2014 Constitutional No chills 03/21/2015 Constitutional No fever 03/21/2015 Ears/Nose/Throat/Neck No dental pain 04/2015 Ears/Nose/Throat/Neck No dizziness 2014 Ears/Nose/Throat/Neck No dysphagia 2014 Ears/Nose/Throat/Neck No headache 2014 Ears/Nose/Throat/Neck No hearing loss 04/2015 Ears/Nose/Throat/Neck No nasal allergies 03/21/2015 Ears/Nose/Throat/Neck No sore throat 04/2015 Ears/Nose/Throat/Neck No postnasal drip 03/21/2015 Ears/Nose/Throat/Neck No sinus congestion 03/21/2015 Cardiovascular No chest pain/pressure 04/2015 Cardiovascular No dyspnea 03/21/2015 Cardiovascular No edema 03/21/2015 Cardiovascular No exercise intolerance Cardiovascular No fatigue 03/21/2015 Cardiovascular hypertension 03/21/2015 Cardiovascular No near-syncope/dizziness 03/21/2015 Respiratory No chest congestion 2014 Respiratory No chest tightness 2014 Respiratory cough 03/21/2015 Gastrointestinal No anorexia 03/21/2015 Gastrointestinal No constipation 2014 Gastrointestinal No diarrhea 03/21/2015 Musculoskeletal No stiffness 03/21/2015 Musculoskeletal No arthralgia(s) 2014 Dermatologic No rash 03/21/2015 Dermatologic No scar 03/21/2015 Neurologic No dizziness 03/21/2015 Neurologic No headache 03/21/2015 Psychiatric No anxiety 03/21/2015 Psychiatric No depression 03/21/2015 Eyes No blindness 03/21/2015 Eyes No vision change 03/21/2015 Genitourinary/Nephrology No dysuria 03/21 Genitourinary/Nephrology No nocturia 04/2015 Genitourinary/Nephrology No urinary incontinence 03/21/2015 Constitutional recent illness 02/22/2015 Constitutional No anorexia 02/22/2015 Constitutional No night sweats 2014 Constitutional No chills 02/22/2015 Constitutional No diaphoresis 02/22/2015 Constitutional No fatigue 02/22/2015 Constitutional No fever 02/22/2015 Constitutional insomnia 02/22/2015 Constitutional No malaise 02/22/2015 Constitutional No weight loss 02/22/2015 Constitutional No weight gain 02/22/2015 Eyes No eye erythema 02/22/2015 Eyes No eye discharge 02/22/2015 Ears/Nose/Throat/Neck No dizziness 2014 Ears/Nose/Throat/Neck nasal allergies Ears/Nose/Throat/Neck No headache 2014 Cardiovascular No chest pain/pressure Cardiovascular No edema 02/22/2015 Respiratory No cigarette smoking 2014 Respiratory cough 02/22/2015 Gastrointestinal No abdominal pain 2014 Gastrointestinal No constipation 2014 Gastrointestinal No diarrhea 02/22/2015 Dermatologic No rash 02/22/2015 Dermatologic No sores 02/22/2015 Psychiatric No anxiety 02/22/2015 Psychiatric No depression 02/22/2015 Respiratory No dyspnea on exertion 2014 Musculoskeletal joint complaint 2014 Neurologic No alteration of consciousness 02/22/2015 Genitourinary/Nephrology No dysuria 02/22 Constitutional recent illness 02/12/2015 Constitutional fatigue 02/12/2015 Constitutional No fever 02/12/2015 Constitutional malaise 02/12/2015 Ears/Nose/Throat/Neck No dizziness 2014 Ears/Nose/Throat/Neck No headache 2014 Cardiovascular No chest pain/pressure 10/2014 Cardiovascular dyspnea 02/12/2015 Cardiovascular No edema 02/12/2015 Cardiovascular exercise intolerance 02/12 Cardiovascular fatigue 02/12/2015 Respiratory cough 02/12/2015 Respiratory chest congestion 02/12/2015 Respiratory No cigarette smoking 2014 Respiratory dyspnea on exertion 2014 Gastrointestinal No abdominal pain 2014 Gastrointestinal No diarrhea 02/12/2015 Gastrointestinal No constipation 2014 Psychiatric No anxiety 02/12/2015 Psychiatric No depression 02/12/2015 Dermatologic No sores 02/12/2015 Dermatologic No rash 02/12/2015 Constitutional No recent illness 2014 Constitutional No anorexia 12/28/2014 Constitutional No night sweats 2014 Constitutional No chills 12/28/2014 Constitutional No diaphoresis 12/28/2014 Constitutional No fatigue 12/28/2014 Constitutional No fever 12/28/2014 Constitutional No malaise 12/28/2014 Constitutional No weight loss 12/28/2014 Constitutional No weight gain 12/28/2014 Constitutional No insomnia 12/28/2014 Eyes No eye discharge 12/28/2014 Eyes No eye erythema 12/28/2014 Ears/Nose/Throat/Neck No dizziness 2014 Ears/Nose/Throat/Neck No headache 2014 Cardiovascular No chest pain/pressure Cardiovascular No dyspnea 12/28/2014 Cardiovascular No edema 12/28/2014 Respiratory No productive sputum 2014 Respiratory No chest congestion 2014 Gastrointestinal No vomiting 12/28/2014 Musculoskeletal joint complaint 2014 Dermatologic No drainage 12/28/2014 Neurologic No alteration of consciousness 12/28/2014 Constitutional No night sweats 2014 Constitutional No chills 12/19/2014 Constitutional No fever 12/19/2014 Ears/Nose/Throat/Neck No dental pain 04/2015 Ears/Nose/Throat/Neck No dizziness 2014 Ears/Nose/Throat/Neck No dysphagia 2014 Ears/Nose/Throat/Neck No headache 2014 Ears/Nose/Throat/Neck No hearing loss 04/2015 Ears/Nose/Throat/Neck No nasal allergies 12/19/2014 Ears/Nose/Throat/Neck No sore throat 04/2015 Ears/Nose/Throat/Neck No postnasal drip 12/19/2014 Ears/Nose/Throat/Neck No sinus congestion 12/19/2014 Cardiovascular No chest pain/pressure 04/2015 Cardiovascular No dyspnea 12/19/2014 Cardiovascular No edema 12/19/2014 Cardiovascular No exercise intolerance Cardiovascular No fatigue 12/19/2014 Cardiovascular hypertension 12/19/2014 Cardiovascular No near-syncope/dizziness 12/19/2014 Respiratory No chest congestion 2014 Respiratory No chest tightness 2014 Respiratory No cough 12/19/2014 Gastrointestinal No anorexia 12/19/2014 Gastrointestinal No constipation 2014 Gastrointestinal No diarrhea 12/19/2014 Musculoskeletal No stiffness 12/19/2014 Musculoskeletal No arthralgia(s) 2014 Dermatologic No rash 12/19/2014 Dermatologic No scar 12/19/2014 Neurologic No dizziness 12/19/2014 Neurologic No headache 12/19/2014 Psychiatric No anxiety 12/19/2014 Psychiatric No depression 12/19/2014 Constitutional No night sweats 2014 Constitutional No chills 08/22/2014 Constitutional No fever 08/22/2014 Ears/Nose/Throat/Neck No dental pain Ears/Nose/Throat/Neck No dizziness 2014 Ears/Nose/Throat/Neck No dysphagia 2014 Ears/Nose/Throat/Neck No headache 2014 Ears/Nose/Throat/Neck No hearing loss Ears/Nose/Throat/Neck No nasal allergies 08/22/2014 Ears/Nose/Throat/Neck No sore throat Ears/Nose/Throat/Neck No postnasal drip 08/22/2014 Ears/Nose/Throat/Neck No sinus congestion 08/22/2014 Cardiovascular No chest pain/pressure Cardiovascular No dyspnea 08/22/2014 Cardiovascular No edema 08/22/2014 Cardiovascular No exercise intolerance Cardiovascular No fatigue 08/22/2014 Cardiovascular hypertension 08/22/2014 Cardiovascular No near-syncope/dizziness 08/22/2014 Respiratory No chest congestion 2014 Respiratory No chest tightness 2014 Respiratory No cough 08/22/2014 Gastrointestinal No anorexia 08/22/2014 Gastrointestinal No constipation 2014 Gastrointestinal No diarrhea 08/22/2014 Musculoskeletal No stiffness 08/22/2014 Musculoskeletal No arthralgia(s) 2014 Dermatologic No rash 08/22/2014 Dermatologic No scar 08/22/2014 Neurologic No dizziness 08/22/2014 Neurologic No headache 08/22/2014 Psychiatric No anxiety 08/22/2014 Psychiatric No depression 08/22/2014 Constitutional No night sweats 2014 Constitutional No chills 05/23/2014 Constitutional No fever 05/23/2014 Respiratory No chest congestion 2014 Respiratory No chest tightness 2014 Respiratory No cough 05/23/2014 Gastrointestinal No anorexia 05/23/2014 Gastrointestinal No constipation 2014 Gastrointestinal No diarrhea 05/23/2014 Musculoskeletal No stiffness 05/23/2014 Musculoskeletal No arthralgia(s) 2014 Neurologic No dizziness 05/23/2014 Neurologic No headache 05/23/2014 Psychiatric No anxiety 05/23/2014 Psychiatric No depression 05/23/2014 Cardiovascular No chest pain/pressure Cardiovascular No dyspnea 05/23/2014 Cardiovascular No edema 05/23/2014 Cardiovascular No exercise intolerance Cardiovascular No fatigue 05/23/2014 Cardiovascular No near-syncope/dizziness 05/23/2014 Cardiovascular hypertension 05/23/2014 Ears/Nose/Throat/Neck No dental pain Ears/Nose/Throat/Neck No dizziness 2014 Ears/Nose/Throat/Neck No dysphagia 2014 Ears/Nose/Throat/Neck No headache 2014 Ears/Nose/Throat/Neck No hearing loss Ears/Nose/Throat/Neck No nasal allergies 05/23/2014 Ears/Nose/Throat/Neck No sore throat Ears/Nose/Throat/Neck No postnasal drip 05/23/2014 Ears/Nose/Throat/Neck No sinus congestion 05/23/2014 Dermatologic No rash 05/23/2014 Dermatologic No scar 05/23/2014 Constitutional No night sweats 2013 Constitutional No chills 03/19/2014 Constitutional No fever 03/19/2014 Respiratory No chest congestion 2013 Respiratory No chest tightness 2013 Respiratory No cough 03/19/2014 Gastrointestinal No anorexia 03/19/2014 Gastrointestinal No constipation 2013 Gastrointestinal No diarrhea 03/19/2014 Musculoskeletal No stiffness 03/19/2014 Musculoskeletal No arthralgia(s) 2013 Neurologic No dizziness 03/19/2014 Neurologic No headache 03/19/2014 Psychiatric No anxiety 03/19/2014 Psychiatric No depression 03/19/2014 Constitutional No night sweats 2013 Constitutional No chills 03/05/2014 Constitutional insomnia 03/05/2014 Eyes No blindness 03/05/2014 Eyes No vision change 03/05/2014 Ears/Nose/Throat/Neck No dizziness 2013 Ears/Nose/Throat/Neck No dysphagia 2013 Ears/Nose/Throat/Neck No headache 2013 Ears/Nose/Throat/Neck No hearing loss Ears/Nose/Throat/Neck No nasal allergies 03/05/2014 Ears/Nose/Throat/Neck No sore throat Ears/Nose/Throat/Neck No postnasal drip 03/05/2014 Ears/Nose/Throat/Neck No sinus congestion 03/05/2014 Respiratory No chest congestion 2013 Respiratory No chest tightness 2013 Respiratory No cough 03/05/2014 Genitourinary/Nephrology No dysuria 03/05 Genitourinary/Nephrology No nocturia Genitourinary/Nephrology No urinary incontinence 03/05/2014 Musculoskeletal No stiffness 03/05/2014 Musculoskeletal No arthralgia(s) 2013 Neurologic No dizziness 03/05/2014 Neurologic No headache 03/05/2014 Psychiatric No anxiety 03/05/2014 Psychiatric No depression 03/05/2014 Constitutional insomnia 02/19/2014 Constitutional No night sweats 2013 Constitutional No chills 02/19/2014 Eyes No blindness 02/19/2014 Eyes No vision change 02/19/2014 Ears/Nose/Throat/Neck No dizziness 2013 Ears/Nose/Throat/Neck No dysphagia 2013 Ears/Nose/Throat/Neck No headache 2013 Ears/Nose/Throat/Neck No hearing loss Ears/Nose/Throat/Neck No nasal allergies 02/19/2014 Ears/Nose/Throat/Neck No sore throat Ears/Nose/Throat/Neck No postnasal drip 02/19/2014 Ears/Nose/Throat/Neck No sinus congestion 02/19/2014 Respiratory No chest congestion 2013 Respiratory No chest tightness 2013 Respiratory No cough 02/19/2014 Genitourinary/Nephrology No dysuria 02/19 Genitourinary/Nephrology No nocturia Genitourinary/Nephrology No urinary incontinence 02/19/2014 Musculoskeletal No stiffness 02/19/2014 Musculoskeletal No arthralgia(s) 2013 Neurologic No dizziness 02/19/2014 Neurologic No headache 02/19/2014 Psychiatric No anxiety 02/19/2014 Psychiatric No depression 02/19/2014 Constitutional recent illness 02/13/2014 Constitutional No anorexia 02/13/2014 Constitutional No night sweats 2013 Constitutional No chills 02/13/2014 Constitutional No diaphoresis 02/13/2014 Constitutional No fatigue 02/13/2014 Constitutional No fever 02/13/2014 Constitutional No insomnia 02/13/2014 Constitutional No malaise 02/13/2014 Constitutional weight loss 02/13/2014 Eyes No eye discharge 02/13/2014 Eyes No eye erythema 02/13/2014 Ears/Nose/Throat/Neck facial pain 2013 Ears/Nose/Throat/Neck No nasal discharge 02/13/2014 Ears/Nose/Throat/Neck oral pain 2013 Ears/Nose/Throat/Neck otalgia 02/13/2014 Ears/Nose/Throat/Neck No otorrhea 2013 Ears/Nose/Throat/Neck No sore throat 11/2013 Cardiovascular No chest pain/pressure 11/2013 Respiratory No cough 02/13/2014 Dermatologic No sores 02/13/2014 Dermatologic No rash 02/13/2014 Dermatologic erythema 02/13/2014 Constitutional No night sweats 2013 Constitutional No chills 02/08/2014 Eyes No blindness 02/08/2014 Eyes No vision change 02/08/2014 Ears/Nose/Throat/Neck No dizziness 2013 Ears/Nose/Throat/Neck No dysphagia 2013 Ears/Nose/Throat/Neck No headache 2013 Ears/Nose/Throat/Neck No hearing loss 06/2013 Ears/Nose/Throat/Neck No nasal allergies 02/08/2014 Ears/Nose/Throat/Neck No sore throat 06/2013 Ears/Nose/Throat/Neck No postnasal drip 02/08/2014 Ears/Nose/Throat/Neck No sinus congestion 02/08/2014 Respiratory No chest congestion 2013 Respiratory No chest tightness 2013 Respiratory No cough 02/08/2014 Genitourinary/Nephrology No dysuria 02/08 Genitourinary/Nephrology No nocturia 06/2013 Genitourinary/Nephrology No urinary incontinence 02/08/2014 Musculoskeletal No stiffness 02/08/2014 Musculoskeletal No arthralgia(s) 2013 Neurologic No dizziness 02/08/2014 Neurologic No headache 02/08/2014 Psychiatric No anxiety 02/08/2014 Psychiatric No depression 02/08/2014 Constitutional recent illness 01/18/2014 Constitutional anorexia 01/18/2014 Constitutional fatigue 01/18/2014 Constitutional fever 01/18/2014 Constitutional malaise 01/18/2014 Eyes No vision change 01/18/2014 Ears/Nose/Throat/Neck No dizziness 2013 Ears/Nose/Throat/Neck No headache 2013 Cardiovascular No chest pain/pressure 03/2014 Cardiovascular No dyspnea 01/18/2014 Cardiovascular No edema 01/18/2014 Cardiovascular fatigue 01/18/2014 Respiratory No cough 01/18/2014 Respiratory No chest congestion 2013 Gastrointestinal abdominal pain 2013 Gastrointestinal anorexia 01/18/2014 Gastrointestinal gas and bloating 2013 Gastrointestinal nausea 01/18/2014 Gastrointestinal No vomiting 01/18/2014 Genitourinary/Nephrology No flank pain Musculoskeletal No stiffness 01/18/2014 Musculoskeletal No arthralgia(s) 2013 Musculoskeletal No joint complaint 2013 Dermatologic No rash 01/18/2014 Dermatologic No sores 01/18/2014 Neurologic No ataxia 01/18/2014 Neurologic No dizziness 01/18/2014 Psychiatric No anxiety 01/18/2014 Psychiatric No depression 01/18/2014 Hematologic/Lymphatic No abnormal ecchymoses 01/18/2014 Hematologic/Lymphatic No abnormal bleeding and bruising 01/18/2014 Allergy/Immunology No food allergy 2013 Constitutional No night sweats 2013 Constitutional No chills 10/10/2013 Constitutional No fever 10/10/2013 Eyes No blindness 10/10/2013 Eyes No vision change 10/10/2013 Ears/Nose/Throat/Neck No dizziness 2013 Ears/Nose/Throat/Neck No dysphagia 2013 Ears/Nose/Throat/Neck No headache 2013 Ears/Nose/Throat/Neck No hearing loss 07/2013 Ears/Nose/Throat/Neck No nasal allergies 10/10/2013 Ears/Nose/Throat/Neck No sore throat 07/2013 Ears/Nose/Throat/Neck No postnasal drip 10/10/2013 Ears/Nose/Throat/Neck No sinus congestion 10/10/2013 Respiratory No chest congestion 2013 Respiratory No chest tightness 2013 Respiratory No cough 10/10/2013 Gastrointestinal No anorexia 10/10/2013 Gastrointestinal No constipation 2013 Gastrointestinal No diarrhea 10/10/2013 Genitourinary/Nephrology No dysuria 10/10 Genitourinary/Nephrology No nocturia 07/2013 Genitourinary/Nephrology No urinary incontinence 10/10/2013 Musculoskeletal No stiffness 10/10/2013 Musculoskeletal No arthralgia(s) 2013 Neurologic No dizziness 10/10/2013 Neurologic No headache 10/10/2013 Psychiatric No anxiety 10/10/2013 Psychiatric No depression 10/10/2013 Constitutional No night sweats 2013 Constitutional No chills 08/15/2013 Constitutional No fever 08/15/2013 Eyes No blindness 08/15/2013 Eyes No vision change 08/15/2013 Respiratory No chest congestion 2013 Respiratory No chest tightness 2013 Respiratory No cough 08/15/2013 Gastrointestinal No anorexia 08/15/2013 Gastrointestinal No constipation 2013 Gastrointestinal No diarrhea 08/15/2013 Genitourinary/Nephrology No dysuria 08/15 Genitourinary/Nephrology No nocturia 12/2013 Genitourinary/Nephrology No urinary incontinence 08/15/2013 Musculoskeletal No stiffness 08/15/2013 Musculoskeletal No arthralgia(s) 2013 Neurologic No dizziness 08/15/2013 Neurologic No headache 08/15/2013 Psychiatric No anxiety 08/15/2013 Psychiatric No depression 08/15/2013 Ears/Nose/Throat/Neck No dizziness 2013 Ears/Nose/Throat/Neck No dysphagia 2013 Ears/Nose/Throat/Neck No headache 2013 Ears/Nose/Throat/Neck No hearing loss 12/2013 Ears/Nose/Throat/Neck No nasal allergies 08/15/2013 Ears/Nose/Throat/Neck No sore throat 12/2013 Ears/Nose/Throat/Neck No postnasal drip 08/15/2013 Ears/Nose/Throat/Neck No sinus congestion 08/15/2013 Constitutional No night sweats 2013 Constitutional No chills 05/16/2013 Constitutional No fever 05/16/2013 Eyes No blindness 05/16/2013 Eyes No vision change 05/16/2013 Respiratory chest congestion 05/16/2013 Respiratory No chest tightness 2013 Respiratory cough 05/16/2013 Gastrointestinal No anorexia 05/16/2013 Gastrointestinal No constipation 2013 Gastrointestinal No diarrhea 05/16/2013 Genitourinary/Nephrology No dysuria 05/16 Genitourinary/Nephrology No nocturia 11/2013 Genitourinary/Nephrology No urinary incontinence 05/16/2013 Musculoskeletal No stiffness 05/16/2013 Musculoskeletal No arthralgia(s) 2013 Neurologic No dizziness 05/16/2013 Neurologic No headache 05/16/2013 Psychiatric No anxiety 05/16/2013 Psychiatric No depression 05/16/2013 Constitutional No night sweats 2012 Constitutional No chills 05/01/2013 Constitutional No fever 05/01/2013 Eyes No blindness 05/01/2013 Eyes No vision change 05/01/2013 Respiratory chest congestion 05/01/2013 Respiratory No chest tightness 2012 Respiratory cough 05/01/2013 Gastrointestinal No anorexia 05/01/2013 Gastrointestinal No constipation 2012 Gastrointestinal No diarrhea 05/01/2013 Genitourinary/Nephrology No dysuria 05/01 Genitourinary/Nephrology No nocturia Genitourinary/Nephrology No urinary incontinence 05/01/2013 Musculoskeletal No stiffness 05/01/2013 Musculoskeletal No arthralgia(s) 2012 Neurologic No dizziness 05/01/2013 Neurologic No headache 05/01/2013 Psychiatric No anxiety 05/01/2013 Psychiatric No depression 05/01/2013 Constitutional No night sweats 2012 Constitutional No chills 02/01/2013 Constitutional No fever 02/01/2013 Eyes No blindness 02/01/2013 Eyes No vision change 02/01/2013 Respiratory No chest congestion 2012 Respiratory No chest tightness 2012 Respiratory No cough 02/01/2013 Gastrointestinal No anorexia 02/01/2013 Gastrointestinal No constipation 2012 Gastrointestinal No diarrhea 02/01/2013 Genitourinary/Nephrology No dysuria 02/01 Genitourinary/Nephrology No nocturia Genitourinary/Nephrology No urinary incontinence 02/01/2013 Musculoskeletal No stiffness 02/01/2013 Musculoskeletal No arthralgia(s) 2012 Neurologic No dizziness 02/01/2013 Neurologic No headache 02/01/2013 Psychiatric No anxiety 02/01/2013 Psychiatric No depression 02/01/2013 Constitutional No night sweats 2012 Constitutional No chills 11/01/2012 Constitutional No fever 11/01/2012 Eyes No blindness 11/01/2012 Eyes No vision change 11/01/2012 Respiratory No chest congestion 2012 Respiratory No chest tightness 2012 Respiratory No cough 11/01/2012 Gastrointestinal No anorexia 11/01/2012 Gastrointestinal No constipation 2012 Gastrointestinal No diarrhea 11/01/2012 Genitourinary/Nephrology No dysuria 11/01 Genitourinary/Nephrology No nocturia Genitourinary/Nephrology No urinary incontinence 11/01/2012 Musculoskeletal No stiffness 11/01/2012 Musculoskeletal No arthralgia(s) 2012 Neurologic No dizziness 11/01/2012 Neurologic No headache 11/01/2012 Psychiatric No anxiety 11/01/2012 Psychiatric No depression 11/01/2012 Constitutional No recent illness 2012 Constitutional No anorexia 09/07/2012 Constitutional No night sweats 2012 Constitutional No chills 09/07/2012 Constitutional No diaphoresis 09/07/2012 Constitutional No fatigue 09/07/2012 Constitutional No insomnia 09/07/2012 Constitutional No fever 09/07/2012 Constitutional No malaise 09/07/2012 Constitutional No weight loss 09/07/2012 Constitutional No weight gain 09/07/2012 Constitutional No obesity 09/07/2012 Constitutional No night sweats 2012 Constitutional No chills 09/01/2012 Constitutional No fever 09/01/2012 Eyes No blindness 09/01/2012 Eyes No vision change 09/01/2012 Respiratory No chest congestion 2012 Respiratory No chest tightness 2012 Respiratory No cough 09/01/2012 Gastrointestinal No anorexia 09/01/2012 Gastrointestinal No constipation 2012 Gastrointestinal No diarrhea 09/01/2012 Genitourinary/Nephrology No dysuria 09/01 Genitourinary/Nephrology No nocturia Genitourinary/Nephrology No urinary incontinence 09/01/2012 Musculoskeletal No stiffness 09/01/2012 Musculoskeletal No arthralgia(s) 2012 Neurologic No dizziness 09/01/2012 Neurologic No headache 09/01/2012 Psychiatric No anxiety 09/01/2012 Psychiatric No depression 09/01/2012 Constitutional recent illness 06/28/2012 Constitutional No night sweats 2012 Constitutional No chills 06/28/2012 Constitutional diaphoresis 06/28/2012 Constitutional No fever 06/28/2012 Eyes No eye discharge 06/28/2012 Eyes No eye erythema 06/28/2012 Ears/Nose/Throat/Neck dizziness 2012 Ears/Nose/Throat/Neck No headache 2012 Ears/Nose/Throat/Neck No otalgia 2012 Ears/Nose/Throat/Neck sinus congestion Ears/Nose/Throat/Neck No sore throat Cardiovascular No chest pain/pressure Gastrointestinal No abdominal pain 2012 Gastrointestinal No constipation 2012 Gastrointestinal No diarrhea 06/28/2012 Gastrointestinal No nausea 06/28/2012 Gastrointestinal No vomiting 06/28/2012 Genitourinary/Nephrology No dysuria 06/28 Musculoskeletal No joint complaint 2012 Dermatologic No rash 06/28/2012 Dermatologic No sores 06/28/2012 Neurologic No alteration of consciousness 06/28/2012 Constitutional No night sweats 2012 Constitutional No chills 06/08/2012 Constitutional No fever 06/08/2012 Respiratory No chest congestion 2012 Respiratory No chest tightness 2012 Respiratory No cough 06/08/2012 Gastrointestinal No anorexia 06/08/2012 Gastrointestinal No constipation 2012 Gastrointestinal No diarrhea 06/08/2012 Musculoskeletal No stiffness 06/08/2012 Musculoskeletal No arthralgia(s) 2012 Neurologic No dizziness 06/08/2012 Neurologic No headache 06/08/2012 Psychiatric No anxiety 06/08/2012 Psychiatric No depression 06/08/2012 Genitourinary/Nephrology No dysuria 05/25 Respiratory No productive sputum 2012 Respiratory No chest congestion 2012 Respiratory No cough 05/25/2012 Ears/Nose/Throat/Neck No dizziness 2012 Ears/Nose/Throat/Neck No headache 2012 Ears/Nose/Throat/Neck No nasal allergies 05/25/2012 Ears/Nose/Throat/Neck No nasal discharge 05/25/2012 Ears/Nose/Throat/Neck No otalgia 2012 Ears/Nose/Throat/Neck No sinus congestion 05/25/2012 Eyes No eye discharge 05/25/2012 Eyes No eye erythema 05/25/2012 Constitutional No recent illness 2012 Constitutional No anorexia 05/25/2012 Constitutional No chills 05/25/2012 Constitutional No diaphoresis 05/25/2012 Constitutional No fatigue 05/25/2012 Constitutional No fever 05/25/2012 Constitutional No insomnia 05/25/2012 Musculoskeletal No joint complaint 2012 Dermatologic No rash 05/25/2012 Dermatologic No sores 05/25/2012 Neurologic No alteration of consciousness 05/25/2012 Constitutional recent illness 03/17/2012 Constitutional No chills 03/17/2012 Constitutional No night sweats 2011 Constitutional diaphoresis 03/17/2012 Constitutional No fever 03/17/2012 Eyes No eye discharge 03/17/2012 Eyes No eye erythema 03/17/2012 Ears/Nose/Throat/Neck dizziness 2011 Ears/Nose/Throat/Neck No headache 2011 Ears/Nose/Throat/Neck nasal allergies 12/2011 Ears/Nose/Throat/Neck nasal discharge 12/2011 Ears/Nose/Throat/Neck No otalgia 2011 Ears/Nose/Throat/Neck No sore throat 12/2011 Ears/Nose/Throat/Neck sinus congestion Cardiovascular No chest pain/pressure 12/2011 Gastrointestinal No abdominal pain 2011 Gastrointestinal No diarrhea 03/17/2012 Gastrointestinal No constipation 2011 Gastrointestinal No nausea 03/17/2012 Gastrointestinal No vomiting 03/17/2012 Genitourinary/Nephrology No dysuria 03/17 Musculoskeletal No joint complaint 2011 Dermatologic No rash 03/17/2012 Dermatologic No sores 03/17/2012 Neurologic No alteration of consciousness 03/17/2012 Constitutional No night sweats 2011 Constitutional No chills 02/17/2012 Constitutional No fever 02/17/2012 Respiratory No chest congestion 2011 Respiratory No chest tightness 2011 Respiratory No cough 02/17/2012 Gastrointestinal No anorexia 02/17/2012 Gastrointestinal No constipation 2011 Gastrointestinal No diarrhea 02/17/2012 Musculoskeletal No stiffness 02/17/2012 Musculoskeletal No arthralgia(s) 2011 Neurologic No dizziness 02/17/2012 Neurologic No headache 02/17/2012 Psychiatric No anxiety 02/17/2012 Psychiatric No depression 02/17/2012 Eyes No blindness 02/17/2012 Eyes No vision change 02/17/2012 Genitourinary/Nephrology No dysuria 02/16 Genitourinary/Nephrology No nocturia 02/2012 Genitourinary/Nephrology No urinary incontinence 02/17/2012 Constitutional No night sweats 2011 Constitutional No chills 10/21/2011 Constitutional No fever 10/21/2011 Respiratory No chest congestion 2011 Respiratory No chest tightness 2011 Respiratory No cough 10/21/2011 Gastrointestinal No anorexia 10/21/2011 Gastrointestinal constipation 10/21/2011 Gastrointestinal No diarrhea 10/21/2011 Musculoskeletal No stiffness 10/21/2011 Musculoskeletal No arthralgia(s) 2011 Neurologic No dizziness 10/21/2011 Neurologic No headache 10/21/2011 Psychiatric No anxiety 10/21/2011 Psychiatric No depression 10/21/2011 Dermatologic No sores 10/21/2011 Dermatologic No rash 10/21/2011 Ears/Nose/Throat/Neck No dental pain Cardiovascular hypertension 06/24/2011 Cardiovascular No near-syncope/dizziness 06/24/2011 Respiratory No cough 06/24/2011 Respiratory No chest tightness 2011 Respiratory No chest congestion 2011 Gastrointestinal No abdominal pain 2011 Gastrointestinal No constipation 2011 Gastrointestinal No diarrhea 06/24/2011 Psychiatric No anxiety 06/24/2011 Psychiatric No depression 06/24/2011 Neurologic No dizziness 06/24/2011 Neurologic gait abnormality 06/24/2011 Neurologic pain, back 06/24/2011 Dermatologic No rash 06/24/2011 Constitutional No recent illness 2011 Constitutional No chills 06/24/2011 Constitutional No fatigue 06/24/2011 Constitutional No fever 06/24/2011 Eyes No vision change 06/24/2011 Ears/Nose/Throat/Neck No dizziness 2011 Ears/Nose/Throat/Neck No headache 2011 Cardiovascular No chest pain/pressure Cardiovascular No edema 06/24/2011 Cardiovascular No fatigue 06/24/2011 Constitutional No night sweats 2011 Constitutional No chills 05/25/2011 Constitutional No fever 05/25/2011 Psychiatric No anxiety 05/25/2011 Psychiatric No depression 05/25/2011 Neurologic No dizziness 05/25/2011 Neurologic No headache 05/25/2011 Musculoskeletal No arthralgia(s) 2011 Musculoskeletal No stiffness 05/25/2011 Respiratory No cough 05/25/2011 Respiratory No chest congestion 2011 Respiratory No chest tightness 2011 Gastrointestinal No anorexia 05/25/2011 Gastrointestinal No diarrhea 05/25/2011 Gastrointestinal No constipation 2011 Musculoskeletal No arthralgia(s) 2010 Dermatologic No rash 03/23/2011 Dermatologic No sores 03/23/2011 Neurologic No headache 03/23/2011 Neurologic No memory loss 03/23/2011 Psychiatric No anxiety 03/23/2011 Psychiatric No depression 03/23/2011 Constitutional fatigue 03/23/2011 Constitutional No recent illness 2010 Constitutional No chills 03/23/2011 Eyes No vision change 03/23/2011 Ears/Nose/Throat/Neck dental pain 2010 Respiratory No cough 03/23/2011 Respiratory No chest congestion 2010 Gastrointestinal No abdominal pain 2010 Gastrointestinal No constipation 2010 Gastrointestinal No diarrhea 03/23/2011 Constitutional recent illness 02/03/2011 Constitutional chills 02/03/2011 Constitutional fatigue 02/03/2011 Constitutional fever 02/03/2011 Neurologic No mental status change 2010 Constitutional malaise 02/03/2011 Ears/Nose/Throat/Neck nasal discharge Ears/Nose/Throat/Neck sinus congestion Ears/Nose/Throat/Neck sore throat 2010 Respiratory productive sputum 02/03/2011 Respiratory chest congestion 02/03/2011 Respiratory cough 02/03/2011 Respiratory dyspnea on exertion 2010 Eyes No eye discharge 02/03/2011 Eyes No eye erythema 02/03/2011 Ears/Nose/Throat/Neck No facial pain Cardiovascular No chest pain/pressure Cardiovascular No hypertension 2010 Respiratory No hemoptysis 02/03/2011 Respiratory No pedal edema 02/03/2011 Gastrointestinal No abdominal pain 2010 Gastrointestinal No constipation 2010 Gastrointestinal No diarrhea 02/03/2011 Gastrointestinal No nausea 02/03/2011 Gastrointestinal No vomiting 02/03/2011 Genitourinary/Nephrology No dysuria 02/03 Musculoskeletal No joint complaint 2010 Dermatologic No rash 02/03/2011 Neurologic No alteration of consciousness 02/03/2011 Constitutional recent illness 01/30/2011 Constitutional chills 01/30/2011 Constitutional fatigue 01/30/2011 Constitutional fever 01/30/2011 Neurologic No mental status change 2010 Constitutional malaise 01/30/2011 Eyes No eye discharge 01/30/2011 Eyes No eye erythema 01/30/2011 Ears/Nose/Throat/Neck No facial pain Ears/Nose/Throat/Neck nasal discharge Ears/Nose/Throat/Neck sinus congestion Ears/Nose/Throat/Neck sore throat 2010 Cardiovascular No chest pain/pressure Cardiovascular No hypertension 2010 Respiratory productive sputum 01/30/2011 Respiratory chest congestion 01/30/2011 Respiratory cough 01/30/2011 Respiratory dyspnea on exertion 2010 Respiratory No hemoptysis 01/30/2011 Respiratory No pedal edema 01/30/2011 Gastrointestinal No abdominal pain 2010 Gastrointestinal No constipation 2010 Gastrointestinal No diarrhea 01/30/2011 Gastrointestinal No nausea 01/30/2011 Gastrointestinal No vomiting 01/30/2011 Genitourinary/Nephrology No dysuria 01/30 Musculoskeletal No joint complaint 2010 Dermatologic No rash 01/30/2011 Neurologic No alteration of consciousness 01/30/2011 Constitutional recent illness 01/29/2011 Constitutional chills 01/29/2011 Constitutional fever 01/29/2011 Constitutional fatigue 01/29/2011 Constitutional malaise 01/29/2011 Eyes No eye discharge 01/29/2011 Eyes No eye erythema 01/29/2011 Ears/Nose/Throat/Neck No facial pain Ears/Nose/Throat/Neck nasal discharge Ears/Nose/Throat/Neck sinus congestion Ears/Nose/Throat/Neck sore throat 2010 Cardiovascular No chest pain/pressure Cardiovascular No hypertension 2010 Respiratory productive sputum 01/29/2011 Respiratory chest congestion 01/29/2011 Respiratory cough 01/29/2011 Respiratory dyspnea on exertion 2010 Respiratory No hemoptysis 01/29/2011 Respiratory No pedal edema 01/29/2011 Gastrointestinal No constipation 2010 Gastrointestinal No diarrhea 01/29/2011 Gastrointestinal No nausea 01/29/2011 Gastrointestinal No vomiting 01/29/2011 Gastrointestinal No abdominal pain 2010 Genitourinary/Nephrology No dysuria 01/29 Musculoskeletal No joint complaint 2010 Dermatologic No rash 01/29/2011 Neurologic No alteration of consciousness 01/29/2011 Neurologic No mental status change 2010 Physical Exam Exam Name System Name Item Name Status Result Effective Dates Notes Full Exam - General 1994 Constitutional general appearance Overall: well developed 03/09/2017 None Full Exam - General 1994 Constitutional general appearance Overall: in no acute distress 03/09/2017 None Full Exam - General 1994 Constitutional general appearance Overall: well nourished 03/09/2017 None Full Exam - General 1994 Eyes pupils and irises Overall: pupils equal, round, reactive to light and accomodation 03/09/2017 None Full Exam - General 1994 Ears/Nose/Throat otoscopic exam Overall: external auditory canals clear 03/09/2017 None Full Exam - General 1994 Ears/Nose/Throat otoscopic exam Overall: tympanic membranes clear 03/09/2017 None Full Exam - General 1994 Ears/Nose/Throat oral cavity/pharynx/larynx Overall: oral mucosa clear 03/09/2017 None Full Exam - General 1994 Ears/Nose/Throat oral cavity/pharynx/larynx Overall: oropharyngeal mucosa clear 03/09/2017 None Full Exam - General 1994 Ears/Nose/Throat oral cavity/pharynx/larynx Overall: no masses 03/09/2017 None Full Exam - General 1994 Respiratory auscultation Overall: breath sounds clear bilaterally 03/09/2017 None Full Exam - General 1994 Respiratory respiratory effort/rhythm Overall: no retractions 03/09/2017 None Full Exam - General 1994 Respiratory respiratory effort/rhythm Overall: normal rate 03/09/2017 None Full Exam - General 1994 Cardiovascular extremities Overall: no clubbing 03/09/2017 None Full Exam - General 1994 Cardiovascular auscultation of heart Overall: regular rate 03/09/2017 None Full Exam - General 1994 Cardiovascular auscultation of heart Overall: normal heart sounds 03/09/2017 None Full Exam - General 1994 Cardiovascular auscultation of heart Systolic murmur: holosystolic 03/09/2017 None Full Exam - General 1994 Cardiovascular auscultation of heart Systolic murmur grade: II/ 03/09/2017 None Full Exam - General 1994 Abdomen abdominal exam Overall: no tenderness 03/09/2017 None Full Exam - General 1994 Abdomen abdominal exam Overall: normal bowel sounds 03/09/2017 None Full Exam - General 1994 Abdomen abdominal exam Contour: protuberant 03/09/2017 None Full Exam - General 1994 Musculoskeletal head and neck Overall: head atraumatic 03/09/2017 None Full Exam - General 1994 Musculoskeletal head and neck Overall: cervical spine benign 03/09/2017 None Full Exam - General 1994 Neurologic gait Overall: no ataxia, no unsteadiness 03/09/2017 None Full Exam - General 1994 Psychiatric orientation/consciousness Overall: oriented to person, place and time 03/09/2017 None Full Exam - General 1994 Psychiatric mood and affect Overall: normal mood and affect 03/09/2017 None Full Exam - General 1994 Constitutional general appearance Overall: well developed 12/01/2016 None Full Exam - General 1994 Constitutional general appearance Overall: in no acute distress 12/01/2016 None Full Exam - General 1994 Constitutional general appearance Overall: well nourished 12/01/2016 None Full Exam - General 1994 Eyes pupils and irises Overall: pupils equal, round, reactive to light and accomodation 12/01/2016 None Full Exam - General 1994 Ears/Nose/Throat otoscopic exam Overall: external auditory canals clear 12/01/2016 None Full Exam - General 1994 Ears/Nose/Throat otoscopic exam Overall: tympanic membranes clear 12/01/2016 None Full Exam - General 1994 Ears/Nose/Throat oral cavity/pharynx/larynx Overall: oral mucosa clear 12/01/2016 None Full Exam - General 1994 Ears/Nose/Throat oral cavity/pharynx/larynx Overall: oropharyngeal mucosa clear 12/01/2016 None Full Exam - General 1994 Ears/Nose/Throat oral cavity/pharynx/larynx Overall: no masses 12/01/2016 None Full Exam - General 1994 Respiratory auscultation Overall: breath sounds clear bilaterally 12/01/2016 None Full Exam - General 1994 Respiratory respiratory effort/rhythm Overall: no retractions 12/01/2016 None Full Exam - General 1994 Respiratory respiratory effort/rhythm Overall: normal rate 12/01/2016 None Full Exam - General 1994 Cardiovascular extremities Overall: no clubbing 12/01/2016 None Full Exam - General 1994 Cardiovascular auscultation of heart Overall: regular rate 12/01/2016 None Full Exam - General 1994 Cardiovascular auscultation of heart Overall: normal heart sounds 12/01/2016 None Full Exam - General 1994 Cardiovascular auscultation of heart Systolic murmur: holosystolic 12/01/2016 None Full Exam - General 1994 Cardiovascular auscultation of heart Systolic murmur grade: II/ 12/01/2016 None Full Exam - General 1994 Abdomen abdominal exam Overall: no tenderness 12/01/2016 None Full Exam - General 1994 Abdomen abdominal exam Overall: normal bowel sounds 12/01/2016 None Full Exam - General 1994 Abdomen abdominal exam Contour: protuberant 12/01/2016 None Full Exam - General 1994 Musculoskeletal head and neck Overall: head atraumatic 12/01/2016 None Full Exam - General 1994 Musculoskeletal head and neck Overall: cervical spine benign 12/01/2016 None Full Exam - General 1994 Neurologic gait Overall: no ataxia, no unsteadiness 12/01/2016 None Full Exam - General 1994 Psychiatric orientation/consciousness Overall: oriented to person, place and time 12/01/2016 None Full Exam - General 1994 Psychiatric mood and affect Overall: normal mood and affect 12/01/2016 None Full Exam - General 1994 Constitutional general appearance Overall: well developed 11/26/2016 None Full Exam - General 1994 Constitutional general appearance Overall: in no acute distress 11/26/2016 None Full Exam - General 1994 Constitutional general appearance Overall: well nourished 11/26/2016 None Full Exam - General 1994 Eyes pupils and irises Overall: pupils equal, round, reactive to light and accomodation 11/26/2016 None Full Exam - General 1994 Ears/Nose/Throat otoscopic exam Overall: external auditory canals clear 11/26/2016 None Full Exam - General 1994 Ears/Nose/Throat otoscopic exam Overall: tympanic membranes clear 11/26/2016 None Full Exam - General 1994 Ears/Nose/Throat oral cavity/pharynx/larynx Overall: oral mucosa clear 11/26/2016 None Full Exam - General 1994 Ears/Nose/Throat oral cavity/pharynx/larynx Overall: oropharyngeal mucosa clear 11/26/2016 None Full Exam - General 1994 Ears/Nose/Throat oral cavity/pharynx/larynx Overall: no masses 11/26/2016 None Full Exam - General 1994 Respiratory auscultation Overall: breath sounds clear bilaterally 11/26/2016 None Full Exam - General 1994 Respiratory respiratory effort/rhythm Overall: no retractions 11/26/2016 None Full Exam - General 1994 Respiratory respiratory effort/rhythm Overall: normal rate 11/26/2016 None Full Exam - General 1994 Cardiovascular extremities Overall: no clubbing 11/26/2016 None Full Exam - General 1994 Cardiovascular auscultation of heart Overall: regular rate 11/26/2016 None Full Exam - General 1994 Cardiovascular auscultation of heart Overall: normal heart sounds 11/26/2016 None Full Exam - General 1994 Cardiovascular auscultation of heart Systolic murmur: holosystolic 11/26/2016 None Full Exam - General 1994 Cardiovascular auscultation of heart Systolic murmur grade: II/ 11/26/2016 None Full Exam - General 1994 Abdomen abdominal exam Overall: no tenderness 11/26/2016 None Full Exam - General 1994 Abdomen abdominal exam Overall: normal bowel sounds 11/26/2016 None Full Exam - General 1994 Abdomen abdominal exam Contour: protuberant 11/26/2016 None Full Exam - General 1994 Musculoskeletal head and neck Overall: head atraumatic 11/26/2016 None Full Exam - General 1994 Musculoskeletal head and neck Overall: cervical spine benign 11/26/2016 None Full Exam - General 1994 Neurologic gait Overall: no ataxia, no unsteadiness 11/26/2016 None Full Exam - General 1994 Psychiatric orientation/consciousness Overall: oriented to person, place and time 11/26/2016 None Full Exam - General 1994 Psychiatric mood and affect Overall: normal mood and affect 11/26/2016 None Full Exam - General 1994 Constitutional general appearance Overall: well developed 08/04/2016 None Full Exam - General 1994 Constitutional general appearance Overall: in no acute distress 08/04/2016 None Full Exam - General 1994 Constitutional general appearance Overall: well nourished 08/04/2016 None Full Exam - General 1994 Eyes pupils and irises Overall: pupils equal, round, reactive to light and accomodation 08/04/2016 None Full Exam - General 1994 Ears/Nose/Throat otoscopic exam Overall: external auditory canals clear 08/04/2016 None Full Exam - General 1994 Ears/Nose/Throat otoscopic exam Overall: tympanic membranes clear 08/04/2016 None Full Exam - General 1994 Ears/Nose/Throat oral cavity/pharynx/larynx Overall: oral mucosa clear 08/04/2016 None Full Exam - General 1994 Ears/Nose/Throat oral cavity/pharynx/larynx Overall: oropharyngeal mucosa clear 08/04/2016 None Full Exam - General 1994 Ears/Nose/Throat oral cavity/pharynx/larynx Overall: no masses 08/04/2016 None Full Exam - General 1994 Respiratory auscultation Overall: breath sounds clear bilaterally 08/04/2016 None Full Exam - General 1994 Respiratory respiratory effort/rhythm Overall: no retractions 08/04/2016 None Full Exam - General 1994 Respiratory respiratory effort/rhythm Overall: normal rate 08/04/2016 None Full Exam - General 1994 Cardiovascular extremities Overall: no clubbing 08/04/2016 None Full Exam - General 1994 Cardiovascular auscultation of heart Overall: regular rate 08/04/2016 None Full Exam - General 1994 Cardiovascular auscultation of heart Overall: normal heart sounds 08/04/2016 None Full Exam - General 1994 Cardiovascular auscultation of heart Systolic murmur: holosystolic 08/04/2016 None Full Exam - General 1994 Cardiovascular auscultation of heart Systolic murmur grade: II/ 08/04/2016 None Full Exam - General 1994 Abdomen abdominal exam Overall: no tenderness 08/04/2016 None Full Exam - General 1994 Abdomen abdominal exam Overall: normal bowel sounds 08/04/2016 None Full Exam - General 1994 Abdomen abdominal exam Contour: protuberant 08/04/2016 None Full Exam - General 1994 Musculoskeletal head and neck Overall: head atraumatic 08/04/2016 None Full Exam - General 1994 Musculoskeletal head and neck Overall: cervical spine benign 08/04/2016 None Full Exam - General 1994 Neurologic gait Overall: no ataxia, no unsteadiness 08/04/2016 None Full Exam - General 1994 Psychiatric orientation/consciousness Overall: oriented to person, place and time 08/04/2016 None Full Exam - General 1994 Psychiatric mood and affect Overall: normal mood and affect 08/04/2016 None Full Exam - General 1994 Constitutional general appearance Overall: well developed 04/17/2016 None Full Exam - General 1994 Constitutional general appearance Overall: in no acute distress 04/17/2016 None Full Exam - General 1994 Constitutional general appearance Overall: well nourished 04/17/2016 None Full Exam - General 1994 Ears/Nose/Throat otoscopic exam Overall: external auditory canals clear 04/17/2016 None Full Exam - General 1994 Ears/Nose/Throat otoscopic exam Overall: tympanic membranes clear 04/17/2016 None Full Exam - General 1994 Ears/Nose/Throat oral cavity/pharynx/larynx Overall: oral mucosa clear 04/17/2016 None Full Exam - General 1994 Ears/Nose/Throat oral cavity/pharynx/larynx Overall: oropharyngeal mucosa clear 04/17/2016 None Full Exam - General 1994 Ears/Nose/Throat oral cavity/pharynx/larynx Overall: no masses 04/17/2016 None Full Exam - General 1994 Respiratory auscultation Overall: breath sounds clear bilaterally 04/17/2016 None Full Exam - General 1994 Respiratory respiratory effort/rhythm Overall: no retractions 04/17/2016 None Full Exam - General 1994 Respiratory respiratory effort/rhythm Overall: normal rate 04/17/2016 None Full Exam - General 1994 Cardiovascular extremities Overall: no clubbing 04/17/2016 None Full Exam - General 1994 Cardiovascular auscultation of heart Overall: regular rate 04/17/2016 None Full Exam - General 1994 Cardiovascular auscultation of heart Overall: normal heart sounds 04/17/2016 None Full Exam - General 1994 Cardiovascular auscultation of heart Systolic murmur: holosystolic 04/17/2016 None Full Exam - General 1994 Cardiovascular auscultation of heart Systolic murmur grade: II/ 04/17/2016 None Full Exam - General 1994 Abdomen abdominal exam Overall: no tenderness 04/17/2016 None Full Exam - General 1994 Abdomen abdominal exam Overall: normal bowel sounds 04/17/2016 None Full Exam - General 1994 Musculoskeletal head and neck Overall: head atraumatic 04/17/2016 None Full Exam - General 1994 Neurologic gait Overall: no ataxia, no unsteadiness 04/17/2016 None Full Exam - General 1994 Psychiatric orientation/consciousness Overall: oriented to person, place and time 04/17/2016 None Full Exam - General 1994 Psychiatric mood and affect Overall: normal mood and affect 04/17/2016 None Full Exam - General 1994 Eyes conjunctiva /eyelids Overall: conjunctiva clear 04/17/2016 None Full Exam - General 1994 Eyes conjunctiva /eyelids Overall: eyelids normal 04/17/2016 None Full Exam - General 1994 Ears/Nose/Throat lips/teeth/gingiva Overall: benign lips 04/17/2016 None Full Exam - General 1994 Psychiatric appearance Overall: well-groomed, good eye contact 04/17/2016 None Full Exam - General 1994 Constitutional general appearance Overall: well developed 04/07/2016 None Full Exam - General 1994 Constitutional general appearance Overall: in no acute distress 04/07/2016 None Full Exam - General 1994 Constitutional general appearance Overall: well nourished 04/07/2016 None Full Exam - General 1994 Eyes pupils and irises Overall: pupils equal, round, reactive to light and accomodation 04/07/2016 None Full Exam - General 1994 Ears/Nose/Throat otoscopic exam Overall: external auditory canals clear 04/07/2016 None Full Exam - General 1994 Ears/Nose/Throat otoscopic exam Overall: tympanic membranes clear 04/07/2016 None Full Exam - General 1994 Ears/Nose/Throat oral cavity/pharynx/larynx Overall: oral mucosa clear 04/07/2016 None Full Exam - General 1994 Ears/Nose/Throat oral cavity/pharynx/larynx Overall: oropharyngeal mucosa clear 04/07/2016 None Full Exam - General 1994 Ears/Nose/Throat oral cavity/pharynx/larynx Overall: no masses 04/07/2016 None Full Exam - General 1994 Respiratory auscultation Overall: breath sounds clear bilaterally 04/07/2016 None Full Exam - General 1994 Respiratory respiratory effort/rhythm Overall: no retractions 04/07/2016 None Full Exam - General 1994 Respiratory respiratory effort/rhythm Overall: normal rate 04/07/2016 None Full Exam - General 1994 Cardiovascular extremities Overall: no clubbing 04/07/2016 None Full Exam - General 1994 Cardiovascular auscultation of heart Overall: regular rate 04/07/2016 None Full Exam - General 1994 Cardiovascular auscultation of heart Overall: normal heart sounds 04/07/2016 None Full Exam - General 1994 Cardiovascular auscultation of heart Systolic murmur: holosystolic 04/07/2016 None Full Exam - General 1994 Cardiovascular auscultation of heart Systolic murmur grade: II/ 04/07/2016 None Full Exam - General 1994 Abdomen abdominal exam Overall: no tenderness 04/07/2016 None Full Exam - General 1994 Abdomen abdominal exam Overall: normal bowel sounds 04/07/2016 None Full Exam - General 1994 Abdomen abdominal exam Contour: protuberant 04/07/2016 None Full Exam - General 1994 Musculoskeletal head and neck Overall: head atraumatic 04/07/2016 None Full Exam - General 1994 Musculoskeletal head and neck Overall: cervical spine benign 04/07/2016 None Full Exam - General 1994 Neurologic gait Overall: no ataxia, no unsteadiness 04/07/2016 None Full Exam - General 1994 Psychiatric orientation/consciousness Overall: oriented to person, place and time 04/07/2016 None Full Exam - General 1994 Psychiatric mood and affect Overall: normal mood and affect 04/07/2016 None Full Exam - Cardiology Respiratory respiratory effort/rhythm Overall: no retractions 02/21/2016 None Full Exam - Cardiology Respiratory respiratory effort/rhythm Overall: normal rate 02/21/2016 None Full Exam - Cardiology Respiratory auscultation Overall: breath sounds clear bilaterally 02/21/2016 None Full Exam - General 1994 Constitutional general appearance Overall: well developed 12/04/2015 None Full Exam - General 1994 Constitutional general appearance Overall: in no acute distress 12/04/2015 None Full Exam - General 1994 Constitutional general appearance Overall: well nourished 12/04/2015 None Full Exam - General 1994 Eyes pupils and irises Overall: pupils equal, round, reactive to light and accomodation 12/04/2015 None Full Exam - General 1994 Ears/Nose/Throat otoscopic exam Overall: external auditory canals clear 12/04/2015 None Full Exam - General 1994 Ears/Nose/Throat otoscopic exam Overall: tympanic membranes clear 12/04/2015 None Full Exam - General 1994 Ears/Nose/Throat oral cavity/pharynx/larynx Overall: oral mucosa clear 12/04/2015 None Full Exam - General 1994 Ears/Nose/Throat oral cavity/pharynx/larynx Overall: oropharyngeal mucosa clear 12/04/2015 None Full Exam - General 1994 Ears/Nose/Throat oral cavity/pharynx/larynx Overall: no masses 12/04/2015 None Full Exam - General 1994 Respiratory auscultation Overall: breath sounds clear bilaterally 12/04/2015 None Full Exam - General 1994 Respiratory respiratory effort/rhythm Overall: no retractions 12/04/2015 None Full Exam - General 1994 Respiratory respiratory effort/rhythm Overall: normal rate 12/04/2015 None Full Exam - General 1994 Cardiovascular extremities Overall: no clubbing 12/04/2015 None Full Exam - General 1994 Cardiovascular auscultation of heart Overall: regular rate 12/04/2015 None Full Exam - General 1994 Cardiovascular auscultation of heart Overall: normal heart sounds 12/04/2015 None Full Exam - General 1994 Cardiovascular auscultation of heart Systolic murmur: holosystolic 12/04/2015 None Full Exam - General 1994 Cardiovascular auscultation of heart Systolic murmur grade: II/ 12/04/2015 None Full Exam - General 1994 Abdomen abdominal exam Overall: no tenderness 12/04/2015 None Full Exam - General 1994 Abdomen abdominal exam Overall: normal bowel sounds 12/04/2015 None Full Exam - General 1994 Abdomen abdominal exam Contour: protuberant 12/04/2015 None Full Exam - General 1994 Musculoskeletal head and neck Overall: head atraumatic 12/04/2015 None Full Exam - General 1994 Musculoskeletal head and neck Overall: cervical spine benign 12/04/2015 None Full Exam - General 1994 Neurologic gait Overall: no ataxia, no unsteadiness 12/04/2015 None Full Exam - General 1994 Psychiatric orientation/consciousness Overall: oriented to person, place and time 12/04/2015 None Full Exam - General 1994 Psychiatric mood and affect Overall: normal mood and affect 12/04/2015 None Full Exam - General 1994 Constitutional general appearance Overall: well developed 10/29/2015 None Full Exam - General 1994 Constitutional general appearance Overall: in no acute distress 10/29/2015 None Full Exam - General 1994 Constitutional general appearance Overall: well nourished 10/29/2015 None Full Exam - General 1994 Eyes pupils and irises Overall: pupils equal, round, reactive to light and accomodation 10/29/2015 None Full Exam - General 1994 Ears/Nose/Throat otoscopic exam Overall: external auditory canals clear 10/29/2015 None Full Exam - General 1994 Ears/Nose/Throat otoscopic exam Overall: tympanic membranes clear 10/29/2015 None Full Exam - General 1994 Ears/Nose/Throat oral cavity/pharynx/larynx Overall: oral mucosa clear 10/29/2015 None Full Exam - General 1994 Ears/Nose/Throat oral cavity/pharynx/larynx Overall: oropharyngeal mucosa clear 10/29/2015 None Full Exam - General 1994 Ears/Nose/Throat oral cavity/pharynx/larynx Overall: no masses 10/29/2015 None Full Exam - General 1994 Respiratory auscultation Overall: breath sounds clear bilaterally 10/29/2015 None Full Exam - General 1994 Respiratory respiratory effort/rhythm Overall: no retractions 10/29/2015 None Full Exam - General 1994 Respiratory respiratory effort/rhythm Overall: normal rate 10/29/2015 None Full Exam - General 1994 Cardiovascular extremities Overall: no clubbing 10/29/2015 None Full Exam - General 1994 Cardiovascular auscultation of heart Overall: regular rate 10/29/2015 None Full Exam - General 1994 Cardiovascular auscultation of heart Overall: normal heart sounds 10/29/2015 None Full Exam - General 1994 Cardiovascular auscultation of heart Systolic murmur: holosystolic 10/29/2015 None Full Exam - General 1994 Cardiovascular auscultation of heart Systolic murmur grade: II/ 10/29/2015 None Full Exam - General 1994 Abdomen abdominal exam Overall: no tenderness 10/29/2015 None Full Exam - General 1994 Abdomen abdominal exam Overall: normal bowel sounds 10/29/2015 None Full Exam - General 1994 Abdomen abdominal exam Contour: protuberant 10/29/2015 None Full Exam - General 1994 Musculoskeletal head and neck Overall: head atraumatic 10/29/2015 None Full Exam - General 1994 Musculoskeletal head and neck Overall: cervical spine benign 10/29/2015 None Full Exam - General 1994 Neurologic gait Overall: no ataxia, no unsteadiness 10/29/2015 None Full Exam - General 1994 Psychiatric orientation/consciousness Overall: oriented to person, place and time 10/29/2015 None Full Exam - General 1994 Psychiatric mood and affect Overall: normal mood and affect 10/29/2015 None Full Exam - General 1994 Constitutional general appearance Overall: well developed 08/02/2015 None Full Exam - General 1994 Constitutional general appearance Overall: in no acute distress 08/02/2015 None Full Exam - General 1994 Constitutional general appearance Overall: well nourished 08/02/2015 None Full Exam - General 1994 Respiratory respiratory effort/rhythm Overall: no retractions 08/02/2015 None Full Exam - General 1994 Respiratory respiratory effort/rhythm Overall: normal rate 08/02/2015 None Full Exam - General 1994 Abdomen abdominal exam Contour: protuberant 08/02/2015 None Full Exam - General 1994 Musculoskeletal head and neck Overall: head atraumatic 08/02/2015 None Full Exam - General 1994 Musculoskeletal head and neck Overall: cervical spine benign 08/02/2015 None Full Exam - General 1994 Neurologic gait Overall: no ataxia, no unsteadiness 08/02/2015 None Full Exam - General 1994 Psychiatric orientation/consciousness Overall: oriented to person, place and time 08/02/2015 None Full Exam - General 1994 Psychiatric mood and affect Overall: normal mood and affect 08/02/2015 None Full Exam - General 1994 Eyes conjunctiva /eyelids Overall: conjunctiva clear 08/02/2015 None Full Exam - General 1994 Eyes conjunctiva /eyelids Overall: cornea clear 08/02/2015 None Full Exam - General 1994 Eyes conjunctiva /eyelids Overall: eyelids normal 08/02/2015 None Full Exam - General 1994 Ears/Nose/Throat lips/teeth/gingiva Overall: benign lips 08/02/2015 None Full Exam - General 1994 Musculoskeletal spine, ribs and pelvis Spine: tender @ lumbar spine 08/02/2015 None Full Exam - General 1994 Musculoskeletal spine, ribs and pelvis Sacroiliac joints: tender right sacroiliac joint 08/02/2015 None Full Exam - General 1994 Constitutional general appearance Overall: well developed 06/25/2015 None Full Exam - General 1994 Constitutional general appearance Overall: in no acute distress 06/25/2015 None Full Exam - General 1994 Constitutional general appearance Overall: well nourished 06/25/2015 None Full Exam - General 1994 Eyes pupils and irises Overall: pupils equal, round, reactive to light and accomodation 06/25/2015 None Full Exam - General 1994 Ears/Nose/Throat otoscopic exam Overall: external auditory canals clear 06/25/2015 None Full Exam - General 1994 Ears/Nose/Throat otoscopic exam Overall: tympanic membranes clear 06/25/2015 None Full Exam - General 1994 Ears/Nose/Throat oral cavity/pharynx/larynx Overall: oral mucosa clear 06/25/2015 None Full Exam - General 1994 Ears/Nose/Throat oral cavity/pharynx/larynx Overall: oropharyngeal mucosa clear 06/25/2015 None Full Exam - General 1994 Ears/Nose/Throat oral cavity/pharynx/larynx Overall: no masses 06/25/2015 None Full Exam - General 1994 Respiratory auscultation Overall: breath sounds clear bilaterally 06/25/2015 None Full Exam - General 1994 Respiratory respiratory effort/rhythm Overall: no retractions 06/25/2015 None Full Exam - General 1994 Respiratory respiratory effort/rhythm Overall: normal rate 06/25/2015 None Full Exam - General 1994 Cardiovascular extremities Overall: no clubbing 06/25/2015 None Full Exam - General 1994 Cardiovascular auscultation of heart Overall: regular rate 06/25/2015 None Full Exam - General 1994 Cardiovascular auscultation of heart Overall: normal heart sounds 06/25/2015 None Full Exam - General 1994 Cardiovascular auscultation of heart Systolic murmur: holosystolic 06/25/2015 None Full Exam - General 1994 Cardiovascular auscultation of heart Systolic murmur grade: II/ 06/25/2015 None Full Exam - General 1994 Abdomen abdominal exam Overall: no tenderness 06/25/2015 None Full Exam - General 1994 Abdomen abdominal exam Overall: normal bowel sounds 06/25/2015 None Full Exam - General 1994 Abdomen abdominal exam Contour: protuberant 06/25/2015 None Full Exam - General 1994 Musculoskeletal head and neck Overall: head atraumatic 06/25/2015 None Full Exam - General 1994 Musculoskeletal head and neck Overall: cervical spine benign 06/25/2015 None Full Exam - General 1994 Neurologic gait Overall: no ataxia, no unsteadiness 06/25/2015 None Full Exam - General 1994 Psychiatric orientation/consciousness Overall: oriented to person, place and time 06/25/2015 None Full Exam - General 1994 Psychiatric mood and affect Overall: normal mood and affect 06/25/2015 None Full Exam - General 1994 Constitutional general appearance Overall: well developed 03/21/2015 None Full Exam - General 1994 Constitutional general appearance Overall: in no acute distress 03/21/2015 None Full Exam - General 1994 Constitutional general appearance Overall: well nourished 03/21/2015 None Full Exam - General 1994 Eyes pupils and irises Overall: pupils equal, round, reactive to light and accomodation 03/21/2015 None Full Exam - General 1994 Ears/Nose/Throat otoscopic exam Overall: external auditory canals clear 03/21/2015 None Full Exam - General 1994 Ears/Nose/Throat otoscopic exam Overall: tympanic membranes clear 03/21/2015 None Full Exam - General 1994 Ears/Nose/Throat oral cavity/pharynx/larynx Overall: oral mucosa clear 03/21/2015 None Full Exam - General 1994 Ears/Nose/Throat oral cavity/pharynx/larynx Overall: oropharyngeal mucosa clear 03/21/2015 None Full Exam - General 1994 Ears/Nose/Throat oral cavity/pharynx/larynx Overall: no masses 03/21/2015 None Full Exam - General 1994 Respiratory auscultation Overall: breath sounds clear bilaterally 03/21/2015 None Full Exam - General 1994 Respiratory respiratory effort/rhythm Overall: no retractions 03/21/2015 None Full Exam - General 1994 Respiratory respiratory effort/rhythm Overall: normal rate 03/21/2015 None Full Exam - General 1994 Cardiovascular extremities Overall: no clubbing 03/21/2015 None Full Exam - General 1994 Cardiovascular auscultation of heart Overall: regular rate 03/21/2015 None Full Exam - General 1994 Cardiovascular auscultation of heart Overall: normal heart sounds 03/21/2015 None Full Exam - General 1994 Cardiovascular auscultation of heart Systolic murmur: holosystolic 03/21/2015 None Full Exam - General 1994 Cardiovascular auscultation of heart Systolic murmur grade: II/ 03/21/2015 None Full Exam - General 1994 Abdomen abdominal exam Overall: no tenderness 03/21/2015 None Full Exam - General 1994 Abdomen abdominal exam Overall: normal bowel sounds 03/21/2015 None Full Exam - General 1994 Abdomen abdominal exam Contour: protuberant 03/21/2015 None Full Exam - General 1994 Musculoskeletal head and neck Overall: head atraumatic 03/21/2015 None Full Exam - General 1994 Musculoskeletal head and neck Overall: cervical spine benign 03/21/2015 None Full Exam - General 1994 Neurologic gait Overall: no ataxia, no unsteadiness 03/21/2015 None Full Exam - General 1994 Psychiatric orientation/consciousness Overall: oriented to person, place and time 03/21/2015 None Full Exam - General 1994 Psychiatric mood and affect Overall: normal mood and affect 03/21/2015 None Full Exam - General 1994 Constitutional general appearance Overall: well developed 02/22/2015 None Full Exam - General 1994 Constitutional general appearance Overall: in no acute distress 02/22/2015 None Full Exam - General 1994 Constitutional general appearance Overall: well nourished 02/22/2015 None Full Exam - General 1994 Eyes pupils and irises Overall: pupils equal, round, reactive to light and accomodation 02/22/2015 None Full Exam - General 1994 Ears/Nose/Throat otoscopic exam Overall: external auditory canals clear 02/22/2015 None Full Exam - General 1994 Ears/Nose/Throat otoscopic exam Overall: tympanic membranes clear 02/22/2015 None Full Exam - General 1994 Ears/Nose/Throat oral cavity/pharynx/larynx Overall: oral mucosa clear 02/22/2015 None Full Exam - General 1994 Ears/Nose/Throat oral cavity/pharynx/larynx Overall: oropharyngeal mucosa clear 02/22/2015 None Full Exam - General 1994 Ears/Nose/Throat oral cavity/pharynx/larynx Overall: no masses 02/22/2015 None Full Exam - General 1994 Respiratory auscultation Overall: breath sounds clear bilaterally 02/22/2015 None Full Exam - General 1994 Respiratory respiratory effort/rhythm Overall: no retractions 02/22/2015 None Full Exam - General 1994 Respiratory respiratory effort/rhythm Overall: normal rate 02/22/2015 None Full Exam - General 1994 Cardiovascular extremities Overall: no clubbing 02/22/2015 None Full Exam - General 1994 Cardiovascular auscultation of heart Overall: regular rate 02/22/2015 None Full Exam - General 1994 Cardiovascular auscultation of heart Overall: normal heart sounds 02/22/2015 None Full Exam - General 1994 Cardiovascular auscultation of heart Systolic murmur: holosystolic 02/22/2015 None Full Exam - General 1994 Cardiovascular auscultation of heart Systolic murmur grade: II/ 02/22/2015 None Full Exam - General 1994 Abdomen abdominal exam Overall: no tenderness 02/22/2015 None Full Exam - General 1994 Abdomen abdominal exam Overall: normal bowel sounds 02/22/2015 None Full Exam - General 1994 Abdomen abdominal exam Contour: protuberant 02/22/2015 None Full Exam - General 1994 Musculoskeletal lower extremity Inspection - knee: swelling 02/22/2015 None Full Exam - General 1994 Musculoskeletal head and neck Overall: head atraumatic 02/22/2015 None Full Exam - General 1994 Musculoskeletal head and neck Overall: cervical spine benign 02/22/2015 None Full Exam - General 1994 Neurologic gait Overall: no ataxia, no unsteadiness 02/22/2015 None Full Exam - General 1994 Psychiatric orientation/consciousness Overall: oriented to person, place and time 02/22/2015 None Full Exam - General 1994 Psychiatric mood and affect Overall: normal mood and affect 02/22/2015 None Full Exam - General 1994 Constitutional general appearance Overall: well developed 02/12/2015 None Full Exam - General 1994 Constitutional general appearance Overall: in no acute distress 02/12/2015 None Full Exam - General 1994 Constitutional general appearance Overall: well nourished 02/12/2015 None Full Exam - General 1994 Eyes pupils and irises Overall: pupils equal, round, reactive to light and accomodation 02/12/2015 None Full Exam - General 1994 Ears/Nose/Throat otoscopic exam Overall: external auditory canals clear 02/12/2015 None Full Exam - General 1994 Ears/Nose/Throat otoscopic exam Overall: tympanic membranes clear 02/12/2015 None Full Exam - General 1994 Ears/Nose/Throat oral cavity/pharynx/larynx Overall: oral mucosa clear 02/12/2015 None Full Exam - General 1994 Ears/Nose/Throat oral cavity/pharynx/larynx Overall: oropharyngeal mucosa clear 02/12/2015 None Full Exam - General 1994 Ears/Nose/Throat oral cavity/pharynx/larynx Overall: no masses 02/12/2015 None Full Exam - General 1994 Respiratory respiratory effort/rhythm Overall: no retractions 02/12/2015 None Full Exam - General 1994 Respiratory respiratory effort/rhythm Overall: normal rate 02/12/2015 None Full Exam - General 1994 Cardiovascular extremities Overall: no clubbing 02/12/2015 None Full Exam - General 1994 Cardiovascular auscultation of heart Overall: regular rate 02/12/2015 None Full Exam - General 1994 Cardiovascular auscultation of heart Overall: normal heart sounds 02/12/2015 None Full Exam - General 1994 Cardiovascular auscultation of heart Systolic murmur: holosystolic 02/12/2015 None Full Exam - General 1994 Cardiovascular auscultation of heart Systolic murmur grade: II/ 02/12/2015 None Full Exam - General 1994 Musculoskeletal head and neck Overall: head atraumatic 02/12/2015 None Full Exam - General 1994 Musculoskeletal head and neck Overall: cervical spine benign 02/12/2015 None Full Exam - General 1994 Neurologic gait Overall: no ataxia, no unsteadiness 02/12/2015 None Full Exam - General 1994 Psychiatric orientation/consciousness Overall: oriented to person, place and time 02/12/2015 None Full Exam - General 1994 Psychiatric mood and affect Overall: normal mood and affect 02/12/2015 None Full Exam - General 1994 Respiratory auscultation Lower lung field: crackles 02/12/2015 left greater than right Full Exam - General 1994 Lymphatic neck nodes Overall: anterior cervical chain benign 02/12/2015 None Full Exam - General 1994 Lymphatic neck nodes Overall: posterior cervical chain benign 02/12/2015 None Full Exam - General 1994 Constitutional general appearance Overall: well developed 12/28/2014 None Full Exam - General 1994 Constitutional general appearance Overall: in no acute distress 12/28/2014 None Full Exam - General 1994 Constitutional general appearance Overall: well nourished 12/28/2014 None Full Exam - General 1994 Eyes pupils and irises Overall: pupils equal, round, reactive to light and accomodation 12/28/2014 None Full Exam - General 1994 Ears/Nose/Throat otoscopic exam Overall: external auditory canals clear 12/28/2014 None Full Exam - General 1994 Ears/Nose/Throat otoscopic exam Overall: tympanic membranes clear 12/28/2014 None Full Exam - General 1994 Ears/Nose/Throat oral cavity/pharynx/larynx Overall: oral mucosa clear 12/28/2014 None Full Exam - General 1994 Ears/Nose/Throat oral cavity/pharynx/larynx Overall: oropharyngeal mucosa clear 12/28/2014 None Full Exam - General 1994 Ears/Nose/Throat oral cavity/pharynx/larynx Overall: no masses 12/28/2014 None Full Exam - General 1994 Respiratory auscultation Overall: breath sounds clear bilaterally 12/28/2014 None Full Exam - General 1994 Respiratory respiratory effort/rhythm Overall: no retractions 12/28/2014 None Full Exam - General 1994 Respiratory respiratory effort/rhythm Overall: normal rate 12/28/2014 None Full Exam - General 1994 Cardiovascular extremities Overall: no clubbing 12/28/2014 None Full Exam - General 1994 Cardiovascular auscultation of heart Overall: regular rate 12/28/2014 None Full Exam - General 1994 Cardiovascular auscultation of heart Overall: normal heart sounds 12/28/2014 None Full Exam - General 1994 Cardiovascular auscultation of heart Systolic murmur: holosystolic 12/28/2014 None Full Exam - General 1994 Cardiovascular auscultation of heart Systolic murmur grade: II/ 12/28/2014 None Full Exam - General 1994 Abdomen abdominal exam Overall: no tenderness 12/28/2014 None Full Exam - General 1994 Abdomen abdominal exam Overall: normal bowel sounds 12/28/2014 None Full Exam - General 1994 Abdomen abdominal exam Contour: protuberant 12/28/2014 None Full Exam - General 1994 Musculoskeletal head and neck Overall: head atraumatic 12/28/2014 None Full Exam - General 1994 Musculoskeletal head and neck Overall: cervical spine benign 12/28/2014 None Full Exam - General 1994 Neurologic gait Overall: no ataxia, no unsteadiness 12/28/2014 None Full Exam - General 1994 Psychiatric orientation/consciousness Overall: oriented to person, place and time 12/28/2014 None Full Exam - General 1994 Psychiatric mood and affect Overall: normal mood and affect 12/28/2014 None Full Exam - General 1994 Musculoskeletal lower extremity Inspection - knee: swelling 12/28/2014 None Full Exam - General 1994 Constitutional general appearance Overall: well developed 12/19/2014 None Full Exam - General 1994 Constitutional general appearance Overall: in no acute distress 12/19/2014 None Full Exam - General 1994 Constitutional general appearance Overall: well nourished 12/19/2014 None Full Exam - General 1994 Eyes pupils and irises Overall: pupils equal, round, reactive to light and accomodation 12/19/2014 None Full Exam - General 1994 Ears/Nose/Throat otoscopic exam Overall: external auditory canals clear 12/19/2014 None Full Exam - General 1994 Ears/Nose/Throat otoscopic exam Overall: tympanic membranes clear 12/19/2014 None Full Exam - General 1994 Ears/Nose/Throat oral cavity/pharynx/larynx Overall: oral mucosa clear 12/19/2014 None Full Exam - General 1994 Ears/Nose/Throat oral cavity/pharynx/larynx Overall: oropharyngeal mucosa clear 12/19/2014 None Full Exam - General 1994 Ears/Nose/Throat oral cavity/pharynx/larynx Overall: no masses 12/19/2014 None Full Exam - General 1994 Respiratory auscultation Overall: breath sounds clear bilaterally 12/19/2014 None Full Exam - General 1994 Respiratory respiratory effort/rhythm Overall: no retractions 12/19/2014 None Full Exam - General 1994 Respiratory respiratory effort/rhythm Overall: normal rate 12/19/2014 None Full Exam - General 1994 Cardiovascular extremities Overall: no clubbing 12/19/2014 None Full Exam - General 1994 Cardiovascular auscultation of heart Overall: regular rate 12/19/2014 None Full Exam - General 1994 Cardiovascular auscultation of heart Overall: normal heart sounds 12/19/2014 None Full Exam - General 1994 Cardiovascular auscultation of heart Systolic murmur: holosystolic 12/19/2014 None Full Exam - General 1994 Cardiovascular auscultation of heart Systolic murmur grade: II/ 12/19/2014 None Full Exam - General 1994 Abdomen abdominal exam Overall: no tenderness 12/19/2014 None Full Exam - General 1994 Abdomen abdominal exam Overall: normal bowel sounds 12/19/2014 None Full Exam - General 1994 Abdomen abdominal exam Contour: protuberant 12/19/2014 None Full Exam - General 1994 Musculoskeletal head and neck Overall: head atraumatic 12/19/2014 None Full Exam - General 1994 Musculoskeletal head and neck Overall: cervical spine benign 12/19/2014 None Full Exam - General 1994 Neurologic gait Overall: no ataxia, no unsteadiness 12/19/2014 None Full Exam - General 1994 Psychiatric orientation/consciousness Overall: oriented to person, place and time 12/19/2014 None Full Exam - General 1994 Psychiatric mood and affect Overall: normal mood and affect 12/19/2014 None Full Exam - General 1994 Constitutional general appearance Overall: well developed 08/22/2014 None Full Exam - General 1994 Constitutional general appearance Overall: in no acute distress 08/22/2014 None Full Exam - General 1994 Constitutional general appearance Overall: well nourished 08/22/2014 None Full Exam - General 1994 Eyes pupils and irises Overall: pupils equal, round, reactive to light and accomodation 08/22/2014 None Full Exam - General 1994 Ears/Nose/Throat otoscopic exam Overall: external auditory canals clear 08/22/2014 None Full Exam - General 1994 Ears/Nose/Throat otoscopic exam Overall: tympanic membranes clear 08/22/2014 None Full Exam - General 1994 Ears/Nose/Throat oral cavity/pharynx/larynx Overall: oral mucosa clear 08/22/2014 None Full Exam - General 1994 Ears/Nose/Throat oral cavity/pharynx/larynx Overall: oropharyngeal mucosa clear 08/22/2014 None Full Exam - General 1994 Ears/Nose/Throat oral cavity/pharynx/larynx Overall: no masses 08/22/2014 None Full Exam - General 1994 Respiratory auscultation Overall: breath sounds clear bilaterally 08/22/2014 None Full Exam - General 1994 Respiratory respiratory effort/rhythm Overall: no retractions 08/22/2014 None Full Exam - General 1994 Respiratory respiratory effort/rhythm Overall: normal rate 08/22/2014 None Full Exam - General 1994 Cardiovascular extremities Overall: no clubbing 08/22/2014 None Full Exam - General 1994 Cardiovascular auscultation of heart Overall: regular rate 08/22/2014 None Full Exam - General 1994 Cardiovascular auscultation of heart Overall: normal heart sounds 08/22/2014 None Full Exam - General 1994 Cardiovascular auscultation of heart Systolic murmur: holosystolic 08/22/2014 None Full Exam - General 1994 Cardiovascular auscultation of heart Systolic murmur grade: II/ 08/22/2014 None Full Exam - General 1994 Abdomen abdominal exam Overall: no tenderness 08/22/2014 None Full Exam - General 1994 Abdomen abdominal exam Overall: normal bowel sounds 08/22/2014 None Full Exam - General 1994 Abdomen abdominal exam Contour: protuberant 08/22/2014 None Full Exam - General 1994 Musculoskeletal head and neck Overall: head atraumatic 08/22/2014 None Full Exam - General 1994 Musculoskeletal head and neck Overall: cervical spine benign 08/22/2014 None Full Exam - General 1994 Neurologic gait Overall: no ataxia, no unsteadiness 08/22/2014 None Full Exam - General 1994 Psychiatric orientation/consciousness Overall: oriented to person, place and time 08/22/2014 None Full Exam - General 1994 Psychiatric mood and affect Overall: normal mood and affect 08/22/2014 None Full Exam - General 1994 Constitutional general appearance Overall: well developed 05/23/2014 None Full Exam - General 1994 Constitutional general appearance Overall: in no acute distress 05/23/2014 None Full Exam - General 1994 Constitutional general appearance Overall: well nourished 05/23/2014 None Full Exam - General 1994 Eyes pupils and irises Overall: pupils equal, round, reactive to light and accomodation 05/23/2014 None Full Exam - General 1994 Ears/Nose/Throat otoscopic exam Overall: external auditory canals clear 05/23/2014 None Full Exam - General 1994 Ears/Nose/Throat otoscopic exam Overall: tympanic membranes clear 05/23/2014 None Full Exam - General 1995 Ears/Nose/Throat oral cavity/pharynx/larynx Overall: oral mucosa clear 05/23/2014 None Full Exam - General 1994 Ears/Nose/Throat oral cavity/pharynx/larynx Overall: oropharyngeal mucosa clear 05/23/2014 None Full Exam - General 1994 Ears/Nose/Throat oral cavity/pharynx/larynx Overall: no masses 05/23/2014 None Full Exam - General 1994 Respiratory auscultation Overall: breath sounds clear bilaterally 05/23/2014 None Full Exam - General 1994 Respiratory respiratory effort/rhythm Overall: no retractions 05/23/2014 None Full Exam - General 1994 Respiratory respiratory effort/rhythm Overall: normal rate 05/23/2014 None Full Exam - General 1994 Cardiovascular extremities Overall: no clubbing 05/23/2014 None Full Exam - General 1994 Cardiovascular auscultation of heart Overall: regular rate 05/23/2014 None Full Exam - General 1994 Cardiovascular auscultation of heart Overall: normal heart sounds 05/23/2014 None Full Exam - General 1994 Cardiovascular auscultation of heart Systolic murmur: holosystolic 05/23/2014 None Full Exam - General 1994 Cardiovascular auscultation of heart Systolic murmur grade: II/ 05/23/2014 None Full Exam - General 1994 Abdomen abdominal exam Overall: no tenderness 05/23/2014 None Full Exam - General 1994 Abdomen abdominal exam Overall: normal bowel sounds 05/23/2014 None Full Exam - General 1994 Abdomen abdominal exam Contour: protuberant 05/23/2014 None Full Exam - General 1994 Musculoskeletal head and neck Overall: head atraumatic 05/23/2014 None Full Exam - General 1994 Musculoskeletal head and neck Overall: cervical spine benign 05/23/2014 None Full Exam - General 1994 Neurologic gait Overall: no ataxia, no unsteadiness 05/23/2014 None Full Exam - General 1994 Psychiatric orientation/consciousness Overall: oriented to person, place and time 05/23/2014 None Full Exam - General 1994 Psychiatric mood and affect Overall: normal mood and affect 05/23/2014 None Full Exam - General 1994 Constitutional general appearance Overall: well developed 03/19/2014 None Full Exam - General 1994 Constitutional general appearance Overall: in no acute distress 03/19/2014 None Full Exam - General 1994 Constitutional general appearance Overall: well nourished 03/19/2014 None Full Exam - General 1994 Eyes pupils and irises Overall: pupils equal, round, reactive to light and accomodation 03/19/2014 None Full Exam - General 1994 Ears/Nose/Throat otoscopic exam Overall: external auditory canals clear 03/19/2014 None Full Exam - General 1994 Ears/Nose/Throat otoscopic exam Overall: tympanic membranes clear 03/19/2014 None Full Exam - General 1994 Ears/Nose/Throat oral cavity/pharynx/larynx Overall: oral mucosa clear 03/19/2014 None Full Exam - General 1994 Ears/Nose/Throat oral cavity/pharynx/larynx Overall: oropharyngeal mucosa clear 03/19/2014 None Full Exam - General 1994 Ears/Nose/Throat oral cavity/pharynx/larynx Overall: no masses 03/19/2014 None Full Exam - General 1994 Respiratory auscultation Overall: breath sounds clear bilaterally 03/19/2014 None Full Exam - General 1994 Respiratory respiratory effort/rhythm Overall: no retractions 03/19/2014 None Full Exam - General 1994 Respiratory respiratory effort/rhythm Overall: normal rate 03/19/2014 None Full Exam - General 1994 Cardiovascular extremities Overall: no clubbing 03/19/2014 None Full Exam - General 1994 Cardiovascular auscultation of heart Overall: regular rate 03/19/2014 None Full Exam - General 1994 Cardiovascular auscultation of heart Overall: normal heart sounds 03/19/2014 None Full Exam - General 1994 Cardiovascular auscultation of heart Systolic murmur: holosystolic 03/19/2014 None Full Exam - General 1994 Cardiovascular auscultation of heart Systolic murmur grade: II/ 03/19/2014 None Full Exam - General 1994 Abdomen abdominal exam Overall: no tenderness 03/19/2014 None Full Exam - General 1994 Abdomen abdominal exam Overall: normal bowel sounds 03/19/2014 None Full Exam - General 1994 Abdomen abdominal exam Contour: protuberant 03/19/2014 None Full Exam - General 1994 Musculoskeletal head and neck Overall: head atraumatic 03/19/2014 None Full Exam - General 1994 Musculoskeletal head and neck Overall: cervical spine benign 03/19/2014 None Full Exam - General 1994 Neurologic gait Overall: no ataxia, no unsteadiness 03/19/2014 None Full Exam - General 1994 Psychiatric orientation/consciousness Overall: oriented to person, place and time 03/19/2014 None Full Exam - General 1994 Psychiatric mood and affect Overall: normal mood and affect 03/19/2014 None Full Exam - General 1994 Constitutional general appearance Overall: well developed 03/05/2014 None Full Exam - General 1994 Constitutional general appearance Overall: in no acute distress 03/05/2014 None Full Exam - General 1994 Constitutional general appearance Overall: well nourished 03/05/2014 None Full Exam - General 1994 Eyes pupils and irises Overall: pupils equal, round, reactive to light and accomodation 03/05/2014 None Full Exam - General 1994 Ears/Nose/Throat oral cavity/pharynx/larynx Overall: oral mucosa clear 03/05/2014 None Full Exam - General 1994 Ears/Nose/Throat oral cavity/pharynx/larynx Overall: oropharyngeal mucosa clear 03/05/2014 None Full Exam - General 1994 Ears/Nose/Throat oral cavity/pharynx/larynx Overall: no masses 03/05/2014 None Full Exam - General 1994 Respiratory auscultation Overall: breath sounds clear bilaterally 03/05/2014 None Full Exam - General 1994 Respiratory respiratory effort/rhythm Overall: no retractions 03/05/2014 None Full Exam - General 1994 Respiratory respiratory effort/rhythm Overall: normal rate 03/05/2014 None Full Exam - General 1994 Cardiovascular extremities Overall: no clubbing 03/05/2014 None Full Exam - General 1994 Cardiovascular auscultation of heart Overall: regular rate 03/05/2014 None Full Exam - General 1994 Cardiovascular auscultation of heart Overall: normal heart sounds 03/05/2014 None Full Exam - General 1994 Cardiovascular auscultation of heart Systolic murmur: holosystolic 03/05/2014 None Full Exam - General 1994 Cardiovascular auscultation of heart Systolic murmur grade: II/ 03/05/2014 None Full Exam - General 1994 Abdomen abdominal exam Overall: no tenderness 03/05/2014 None Full Exam - General 1994 Abdomen abdominal exam Overall: normal bowel sounds 03/05/2014 None Full Exam - General 1994 Abdomen abdominal exam Contour: protuberant 03/05/2014 None Full Exam - General 1994 Neurologic gait Overall: no ataxia, no unsteadiness 03/05/2014 None Full Exam - General 1994 Psychiatric orientation/consciousness Overall: oriented to person, place and time 03/05/2014 None Full Exam - General 1994 Psychiatric mood and affect Overall: normal mood and affect 03/05/2014 None Full Exam - General 1994 Constitutional general appearance Overall: well developed 02/19/2014 None Full Exam - General 1994 Constitutional general appearance Overall: in no acute distress 02/19/2014 None Full Exam - General 1994 Constitutional general appearance Overall: well nourished 02/19/2014 None Full Exam - General 1994 Eyes pupils and irises Overall: pupils equal, round, reactive to light and accomodation 02/19/2014 None Full Exam - General 1994 Ears/Nose/Throat otoscopic exam Overall: external auditory canals clear 02/19/2014 None Full Exam - General 1994 Ears/Nose/Throat otoscopic exam Overall: tympanic membranes clear 02/19/2014 None Full Exam - General 1995 Ears/Nose/Throat oral cavity/pharynx/larynx Overall: oral mucosa clear 02/19/2014 None Full Exam - General 1995 Ears/Nose/Throat oral cavity/pharynx/larynx Overall: oropharyngeal mucosa clear 02/19/2014 None Full Exam - General 1994 Ears/Nose/Throat oral cavity/pharynx/larynx Overall: no masses 02/19/2014 None Full Exam - General 1994 Respiratory auscultation Overall: breath sounds clear bilaterally 02/19/2014 None Full Exam - General 1994 Respiratory respiratory effort/rhythm Overall: no retractions 02/19/2014 None Full Exam - General 1994 Respiratory respiratory effort/rhythm Overall: normal rate 02/19/2014 None Full Exam - General 1994 Cardiovascular extremities Overall: no clubbing 02/19/2014 None Full Exam - General 1994 Cardiovascular auscultation of heart Overall: regular rate 02/19/2014 None Full Exam - General 1994 Cardiovascular auscultation of heart Overall: normal heart sounds 02/19/2014 None Full Exam - General 1994 Cardiovascular auscultation of heart Systolic murmur: holosystolic 02/19/2014 None Full Exam - General 1994 Cardiovascular auscultation of heart Systolic murmur grade: II/ 02/19/2014 None Full Exam - General 1994 Abdomen abdominal exam Contour: protuberant 02/19/2014 None Full Exam - General 1994 Musculoskeletal head and neck Overall: head atraumatic 02/19/2014 None Full Exam - General 1994 Musculoskeletal head and neck Overall: cervical spine benign 02/19/2014 None Full Exam - General 1994 Neurologic gait Overall: no ataxia, no unsteadiness 02/19/2014 None Full Exam - General 1994 Psychiatric orientation/consciousness Overall: oriented to person, place and time 02/19/2014 None Full Exam - General 1994 Psychiatric mood and affect Overall: normal mood and affect 02/19/2014 None Full Exam - General 1994 Abdomen abdominal exam Bowel sounds: hypoactive 02/19/2014 None Full Exam - General 1994 Abdomen abdominal exam Upper quadrant: non-tender to palpation 02/19/2014 None Full Exam - General 1994 Abdomen abdominal exam Lower quadrant: tender to palpation 02/19/2014 None Full Exam - General 1994 Constitutional general appearance Overall: well developed 02/13/2014 None Full Exam - General 1994 Constitutional general appearance Overall: in no acute distress 02/13/2014 None Full Exam - General 1994 Constitutional general appearance Overall: well nourished 02/13/2014 None Full Exam - General 1994 Eyes pupils and irises Overall: pupils equal, round, reactive to light and accomodation 02/13/2014 None Full Exam - General 1994 Ears/Nose/Throat otoscopic exam Overall: tympanic membranes clear 02/13/2014 None Full Exam - General 1994 Respiratory auscultation Overall: breath sounds clear bilaterally 02/13/2014 None Full Exam - General 1994 Respiratory respiratory effort/rhythm Overall: no retractions 02/13/2014 None Full Exam - General 1994 Respiratory respiratory effort/rhythm Overall: normal rate 02/13/2014 None Full Exam - General 1994 Cardiovascular extremities Overall: no clubbing 02/13/2014 None Full Exam - General 1994 Cardiovascular auscultation of heart Overall: regular rate 02/13/2014 None Full Exam - General 1994 Cardiovascular auscultation of heart Overall: normal heart sounds 02/13/2014 None Full Exam - General 1994 Cardiovascular auscultation of heart Systolic murmur: holosystolic 02/13/2014 None Full Exam - General 1994 Cardiovascular auscultation of heart Systolic murmur grade: II/ 02/13/2014 None Full Exam - General 1994 Abdomen abdominal exam Contour: protuberant 02/13/2014 None Full Exam - General 1994 Musculoskeletal head and neck Overall: head atraumatic 02/13/2014 None Full Exam - General 1994 Musculoskeletal head and neck Overall: cervical spine benign 02/13/2014 None Full Exam - General 1994 Neurologic gait Overall: no ataxia, no unsteadiness 02/13/2014 None Full Exam - General 1994 Psychiatric orientation/consciousness Overall: oriented to person, place and time 02/13/2014 None Full Exam - General 1994 Psychiatric mood and affect Overall: normal mood and affect 02/13/2014 None Full Exam - General 1994 Ears/Nose/Throat otoscopic exam Overall: external auditory canals clear 02/13/2014 None Full Exam - General 1994 Ears/Nose/Throat external ear Auricle: erythema 02/13/2014 None Full Exam - General 1994 Ears/Nose/Throat external ear Auricle: tender 02/13/2014 swelling, soft tissue swelling noted to right upper cheek and extends to right auricle. Full Exam - General 1994 Ears/Nose/Throat lips/teeth/gingiva Teeth: wears dentures 02/13/2014 None Full Exam - General 1994 Ears/Nose/Throat lips/teeth/gingiva Gingiva: a normal exam 02/13/2014 None Full Exam - General 1994 Lymphatic neck nodes Overall: anterior cervical chain benign 02/13/2014 None Full Exam - General 1994 Lymphatic neck nodes Overall: posterior cervical chain benign 02/13/2014 None Full Exam - General 1994 Constitutional general appearance Overall: well developed 02/08/2014 None Full Exam - General 1994 Constitutional general appearance Overall: in no acute distress 02/08/2014 None Full Exam - General 1994 Constitutional general appearance Overall: well nourished 02/08/2014 None Full Exam - General 1994 Eyes pupils and irises Overall: pupils equal, round, reactive to light and accomodation 02/08/2014 None Full Exam - General 1994 Ears/Nose/Throat otoscopic exam Overall: external auditory canals clear 02/08/2014 None Full Exam - General 1994 Ears/Nose/Throat otoscopic exam Overall: tympanic membranes clear 02/08/2014 None Full Exam - General 1994 Ears/Nose/Throat oral cavity/pharynx/larynx Overall: oral mucosa clear 02/08/2014 None Full Exam - General 1994 Ears/Nose/Throat oral cavity/pharynx/larynx Overall: oropharyngeal mucosa clear 02/08/2014 None Full Exam - General 1994 Ears/Nose/Throat oral cavity/pharynx/larynx Overall: no masses 02/08/2014 None Full Exam - General 1994 Respiratory auscultation Overall: breath sounds clear bilaterally 02/08/2014 None Full Exam - General 1994 Respiratory respiratory effort/rhythm Overall: no retractions 02/08/2014 None Full Exam - General 1994 Respiratory respiratory effort/rhythm Overall: normal rate 02/08/2014 None Full Exam - General 1994 Cardiovascular extremities Overall: no clubbing 02/08/2014 None Full Exam - General 1994 Cardiovascular auscultation of heart Overall: regular rate 02/08/2014 None Full Exam - General 1994 Cardiovascular auscultation of heart Overall: normal heart sounds 02/08/2014 None Full Exam - General 1994 Cardiovascular auscultation of heart Systolic murmur: holosystolic 02/08/2014 None Full Exam - General 1994 Cardiovascular auscultation of heart Systolic murmur grade: II/ 02/08/2014 None Full Exam - General 1994 Abdomen abdominal exam Overall: normal bowel sounds 02/08/2014 None Full Exam - General 1994 Abdomen abdominal exam Contour: protuberant 02/08/2014 None Full Exam - General 1994 Musculoskeletal head and neck Overall: head atraumatic 02/08/2014 None Full Exam - General 1994 Musculoskeletal head and neck Overall: cervical spine benign 02/08/2014 None Full Exam - General 1994 Neurologic gait Overall: no ataxia, no unsteadiness 02/08/2014 None Full Exam - General 1994 Psychiatric orientation/consciousness Overall: oriented to person, place and time 02/08/2014 None Full Exam - General 1994 Psychiatric mood and affect Overall: normal mood and affect 02/08/2014 None Full Exam - General 1994 Constitutional general appearance Overall: well developed 01/18/2014 None Full Exam - General 1994 Constitutional general appearance Overall: well nourished 01/18/2014 None Full Exam - General 1994 Eyes pupils and irises Overall: pupils equal, round, reactive to light and accomodation 01/18/2014 None Full Exam - General 1994 Ears/Nose/Throat otoscopic exam Overall: external auditory canals clear 01/18/2014 None Full Exam - General 1994 Ears/Nose/Throat otoscopic exam Overall: tympanic membranes clear 01/18/2014 None Full Exam - General 1994 Ears/Nose/Throat oral cavity/pharynx/larynx Overall: oral mucosa clear 01/18/2014 None Full Exam - General 1994 Ears/Nose/Throat oral cavity/pharynx/larynx Overall: oropharyngeal mucosa clear 01/18/2014 None Full Exam - General 1994 Ears/Nose/Throat oral cavity/pharynx/larynx Overall: no masses 01/18/2014 None Full Exam - General 1994 Respiratory auscultation Overall: breath sounds clear bilaterally 01/18/2014 None Full Exam - General 1994 Respiratory respiratory effort/rhythm Overall: no retractions 01/18/2014 None Full Exam - General 1994 Respiratory respiratory effort/rhythm Overall: normal rate 01/18/2014 None Full Exam - General 1994 Cardiovascular extremities Overall: no clubbing 01/18/2014 None Full Exam - General 1994 Cardiovascular auscultation of heart Overall: regular rate 01/18/2014 None Full Exam - General 1994 Cardiovascular auscultation of heart Overall: normal heart sounds 01/18/2014 None Full Exam - General 1994 Cardiovascular auscultation of heart Systolic murmur: holosystolic 01/18/2014 None Full Exam - General 1994 Cardiovascular auscultation of heart Systolic murmur grade: II/ 01/18/2014 None Full Exam - General 1994 Abdomen abdominal exam Contour: protuberant 01/18/2014 None Full Exam - General 1994 Musculoskeletal head and neck Overall: head atraumatic 01/18/2014 None Full Exam - General 1994 Musculoskeletal head and neck Overall: cervical spine benign 01/18/2014 None Full Exam - General 1994 Psychiatric orientation/consciousness Overall: oriented to person, place and time 01/18/2014 None Full Exam - General 1994 Psychiatric mood and affect Overall: normal mood and affect 01/18/2014 None Full Exam - General 1994 Integument inspection of skin Overall: no rash, lesions 01/18/2014 None Full Exam - General 1994 Neurologic gait Conventional walking: unsteady 01/18/2014 None Full Exam - General 1994 Abdomen abdominal exam Bowel sounds: hypoactive 01/18/2014 None Full Exam - General 1994 Abdomen abdominal exam Upper quadrant: tender to palpation 01/18/2014 None Full Exam - General 1994 Abdomen abdominal exam Upper quadrant: involuntary guarding 01/18/2014 None Full Exam - General 1994 Abdomen abdominal exam Lower quadrant: involuntary guarding 01/18/2014 None Full Exam - General 1994 Abdomen abdominal exam Lower quadrant: tender to palpation 01/18/2014 None Full Exam - General 1994 Abdomen abdominal exam Lower quadrant: rebound tenderness 01/18/2014 None Full Exam - General 1994 Abdomen abdominal exam Lower quadrant: firm 01/18/2014 None Full Exam - General 1994 Abdomen abdominal exam Epigastric: non-tender to palpation 01/18/2014 None Full Exam - General 1994 Abdomen abdominal exam Periumbilical: tender to palpation 01/18/2014 None Full Exam - General 1994 Constitutional general appearance Overall: well developed 10/10/2013 None Full Exam - General 1994 Constitutional general appearance Overall: in no acute distress 10/10/2013 None Full Exam - General 1994 Constitutional general appearance Overall: well nourished 10/10/2013 None Full Exam - General 1994 Eyes pupils and irises Overall: pupils equal, round, reactive to light and accomodation 10/10/2013 None Full Exam - General 1994 Ears/Nose/Throat otoscopic exam Overall: external auditory canals clear 10/10/2013 None Full Exam - General 1994 Ears/Nose/Throat otoscopic exam Overall: tympanic membranes clear 10/10/2013 None Full Exam - General 1994 Ears/Nose/Throat oral cavity/pharynx/larynx Overall: oral mucosa clear 10/10/2013 None Full Exam - General 1994 Ears/Nose/Throat oral cavity/pharynx/larynx Overall: oropharyngeal mucosa clear 10/10/2013 None Full Exam - General 1994 Ears/Nose/Throat oral cavity/pharynx/larynx Overall: no masses 10/10/2013 None Full Exam - General 1994 Respiratory auscultation Overall: breath sounds clear bilaterally 10/10/2013 None Full Exam - General 1994 Respiratory respiratory effort/rhythm Overall: no retractions 10/10/2013 None Full Exam - General 1994 Respiratory respiratory effort/rhythm Overall: normal rate 10/10/2013 None Full Exam - General 1994 Cardiovascular extremities Overall: no clubbing 10/10/2013 None Full Exam - General 1994 Cardiovascular auscultation of heart Overall: regular rate 10/10/2013 None Full Exam - General 1994 Cardiovascular auscultation of heart Overall: normal heart sounds 10/10/2013 None Full Exam - General 1994 Cardiovascular auscultation of heart Systolic murmur: holosystolic 10/10/2013 None Full Exam - General 1994 Cardiovascular auscultation of heart Systolic murmur grade: II/ 10/10/2013 None Full Exam - General 1994 Abdomen abdominal exam Overall: no tenderness 10/10/2013 None Full Exam - General 1994 Abdomen abdominal exam Overall: normal bowel sounds 10/10/2013 None Full Exam - General 1994 Abdomen abdominal exam Contour: protuberant 10/10/2013 None Full Exam - General 1994 Musculoskeletal head and neck Overall: head atraumatic 10/10/2013 None Full Exam - General 1994 Musculoskeletal head and neck Overall: cervical spine benign 10/10/2013 None Full Exam - General 1994 Neurologic gait Overall: no ataxia, no unsteadiness 10/10/2013 None Full Exam - General 1994 Psychiatric orientation/consciousness Overall: oriented to person, place and time 10/10/2013 None Full Exam - General 1994 Psychiatric mood and affect Overall: normal mood and affect 10/10/2013 None Full Exam - General 1994 Constitutional general appearance Overall: well developed 08/15/2013 None Full Exam - General 1994 Constitutional general appearance Overall: in no acute distress 08/15/2013 None Full Exam - General 1994 Constitutional general appearance Overall: well nourished 08/15/2013 None Full Exam - General 1994 Eyes pupils and irises Overall: pupils equal, round, reactive to light and accomodation 08/15/2013 None Full Exam - General 1994 Ears/Nose/Throat otoscopic exam Overall: external auditory canals clear 08/15/2013 None Full Exam - General 1994 Ears/Nose/Throat otoscopic exam Overall: tympanic membranes clear 08/15/2013 None Full Exam - General 1994 Ears/Nose/Throat oral cavity/pharynx/larynx Overall: oral mucosa clear 08/15/2013 None Full Exam - General 1994 Ears/Nose/Throat oral cavity/pharynx/larynx Overall: oropharyngeal mucosa clear 08/15/2013 None Full Exam - General 1994 Ears/Nose/Throat oral cavity/pharynx/larynx Overall: no masses 08/15/2013 None Full Exam - General 1994 Respiratory auscultation Overall: breath sounds clear bilaterally 08/15/2013 None Full Exam - General 1994 Respiratory respiratory effort/rhythm Overall: no retractions 08/15/2013 None Full Exam - General 1994 Respiratory respiratory effort/rhythm Overall: normal rate 08/15/2013 None Full Exam - General 1994 Cardiovascular extremities Overall: no clubbing 08/15/2013 None Full Exam - General 1994 Cardiovascular auscultation of heart Overall: regular rate 08/15/2013 None Full Exam - General 1994 Cardiovascular auscultation of heart Overall: normal heart sounds 08/15/2013 None Full Exam - General 1994 Cardiovascular auscultation of heart Systolic murmur: holosystolic 08/15/2013 None Full Exam - General 1994 Cardiovascular auscultation of heart Systolic murmur grade: II/ 08/15/2013 None Full Exam - General 1994 Abdomen abdominal exam Overall: no tenderness 08/15/2013 None Full Exam - General 1994 Abdomen abdominal exam Overall: normal bowel sounds 08/15/2013 None Full Exam - General 1994 Abdomen abdominal exam Contour: protuberant 08/15/2013 None Full Exam - General 1994 Musculoskeletal head and neck Overall: head atraumatic 08/15/2013 None Full Exam - General 1994 Musculoskeletal head and neck Overall: cervical spine benign 08/15/2013 None Full Exam - General 1994 Neurologic gait Overall: no ataxia, no unsteadiness 08/15/2013 None Full Exam - General 1994 Psychiatric orientation/consciousness Overall: oriented to person, place and time 08/15/2013 None Full Exam - General 1994 Psychiatric mood and affect Overall: normal mood and affect 08/15/2013 None Full Exam - General 1994 Constitutional general appearance Overall: well developed 05/16/2013 None Full Exam - General 1994 Constitutional general appearance Overall: in no acute distress 05/16/2013 None Full Exam - General 1994 Constitutional general appearance Overall: well nourished 05/16/2013 None Full Exam - General 1994 Eyes pupils and irises Overall: pupils equal, round, reactive to light and accomodation 05/16/2013 None Full Exam - General 1994 Ears/Nose/Throat otoscopic exam Overall: external auditory canals clear 05/16/2013 None Full Exam - General 1994 Ears/Nose/Throat otoscopic exam Overall: tympanic membranes clear 05/16/2013 None Full Exam - General 1995 Ears/Nose/Throat oral cavity/pharynx/larynx Overall: oral mucosa clear 05/16/2013 None Full Exam - General 1995 Ears/Nose/Throat oral cavity/pharynx/larynx Overall: oropharyngeal mucosa clear 05/16/2013 None Full Exam - General 1995 Ears/Nose/Throat oral cavity/pharynx/larynx Overall: no masses 05/16/2013 None Full Exam - General 1994 Respiratory auscultation Overall: breath sounds clear bilaterally 05/16/2013 None Full Exam - General 1994 Respiratory respiratory effort/rhythm Overall: no retractions 05/16/2013 None Full Exam - General 1994 Respiratory respiratory effort/rhythm Overall: normal rate 05/16/2013 None Full Exam - General 1994 Cardiovascular extremities Overall: no clubbing 05/16/2013 None Full Exam - General 1994 Cardiovascular auscultation of heart Overall: regular rate 05/16/2013 None Full Exam - General 1994 Cardiovascular auscultation of heart Overall: normal heart sounds 05/16/2013 None Full Exam - General 1994 Cardiovascular auscultation of heart Systolic murmur: holosystolic 05/16/2013 None Full Exam - General 1994 Cardiovascular auscultation of heart Systolic murmur grade: II/ 05/16/2013 None Full Exam - General 1994 Abdomen abdominal exam Overall: no tenderness 05/16/2013 None Full Exam - General 1994 Abdomen abdominal exam Overall: normal bowel sounds 05/16/2013 None Full Exam - General 1994 Abdomen abdominal exam Contour: protuberant 05/16/2013 None Full Exam - General 1994 Musculoskeletal head and neck Overall: head atraumatic 05/16/2013 None Full Exam - General 1994 Musculoskeletal head and neck Overall: cervical spine benign 05/16/2013 None Full Exam - General 1994 Neurologic gait Overall: no ataxia, no unsteadiness 05/16/2013 None Full Exam - General 1994 Psychiatric orientation/consciousness Overall: oriented to person, place and time 05/16/2013 None Full Exam - General 1994 Psychiatric mood and affect Overall: normal mood and affect 05/16/2013 None Full Exam - General 1994 Constitutional general appearance Overall: well developed 05/01/2013 None Full Exam - General 1994 Constitutional general appearance Overall: in no acute distress 05/01/2013 None Full Exam - General 1994 Constitutional general appearance Overall: well nourished 05/01/2013 None Full Exam - General 1994 Eyes pupils and irises Overall: pupils equal, round, reactive to light and accomodation 05/01/2013 None Full Exam - General 1994 Ears/Nose/Throat otoscopic exam Overall: external auditory canals clear 05/01/2013 None Full Exam - General 1994 Ears/Nose/Throat otoscopic exam Overall: tympanic membranes clear 05/01/2013 None Full Exam - General 1994 Ears/Nose/Throat oral cavity/pharynx/larynx Overall: oral mucosa clear 05/01/2013 None Full Exam - General 1994 Ears/Nose/Throat oral cavity/pharynx/larynx Overall: oropharyngeal mucosa clear 05/01/2013 None Full Exam - General 1994 Ears/Nose/Throat oral cavity/pharynx/larynx Overall: no masses 05/01/2013 None Full Exam - General 1994 Respiratory auscultation Overall: breath sounds clear bilaterally 05/01/2013 None Full Exam - General 1994 Respiratory respiratory effort/rhythm Overall: no retractions 05/01/2013 None Full Exam - General 1994 Respiratory respiratory effort/rhythm Overall: normal rate 05/01/2013 None Full Exam - General 1994 Cardiovascular extremities Overall: no clubbing 05/01/2013 None Full Exam - General 1994 Cardiovascular auscultation of heart Overall: regular rate 05/01/2013 None Full Exam - General 1994 Cardiovascular auscultation of heart Overall: normal heart sounds 05/01/2013 None Full Exam - General 1994 Cardiovascular auscultation of heart Systolic murmur: holosystolic 05/01/2013 None Full Exam - General 1994 Cardiovascular auscultation of heart Systolic murmur grade: II/ 05/01/2013 None Full Exam - General 1994 Abdomen abdominal exam Overall: no tenderness 05/01/2013 None Full Exam - General 1994 Abdomen abdominal exam Overall: normal bowel sounds 05/01/2013 None Full Exam - General 1994 Abdomen abdominal exam Contour: protuberant 05/01/2013 None Full Exam - General 1994 Musculoskeletal head and neck Overall: head atraumatic 05/01/2013 None Full Exam - General 1994 Musculoskeletal head and neck Overall: cervical spine benign 05/01/2013 None Full Exam - General 1994 Neurologic gait Overall: no ataxia, no unsteadiness 05/01/2013 None Full Exam - General 1994 Psychiatric orientation/consciousness Overall: oriented to person, place and time 05/01/2013 None Full Exam - General 1994 Psychiatric mood and affect Overall: normal mood and affect 05/01/2013 None Full Exam - General 1994 Constitutional general appearance Overall: well developed 02/01/2013 None Full Exam - General 1994 Constitutional general appearance Overall: in no acute distress 02/01/2013 None Full Exam - General 1994 Constitutional general appearance Overall: well nourished 02/01/2013 None Full Exam - General 1994 Eyes pupils and irises Overall: pupils equal, round, reactive to light and accomodation 02/01/2013 None Full Exam - General 1994 Ears/Nose/Throat otoscopic exam Overall: external auditory canals clear 02/01/2013 None Full Exam - General 1994 Ears/Nose/Throat otoscopic exam Overall: tympanic membranes clear 02/01/2013 None Full Exam - General 1994 Ears/Nose/Throat oral cavity/pharynx/larynx Overall: oral mucosa clear 02/01/2013 None Full Exam - General 1994 Ears/Nose/Throat oral cavity/pharynx/larynx Overall: oropharyngeal mucosa clear 02/01/2013 None Full Exam - General 1994 Ears/Nose/Throat oral cavity/pharynx/larynx Overall: no masses 02/01/2013 None Full Exam - General 1994 Respiratory auscultation Overall: breath sounds clear bilaterally 02/01/2013 None Full Exam - General 1994 Respiratory respiratory effort/rhythm Overall: no retractions 02/01/2013 None Full Exam - General 1994 Respiratory respiratory effort/rhythm Overall: normal rate 02/01/2013 None Full Exam - General 1994 Cardiovascular extremities Overall: no clubbing 02/01/2013 None Full Exam - General 1994 Cardiovascular auscultation of heart Overall: regular rate 02/01/2013 None Full Exam - General 1994 Cardiovascular auscultation of heart Overall: normal heart sounds 02/01/2013 None Full Exam - General 1994 Cardiovascular auscultation of heart Systolic murmur: holosystolic 02/01/2013 None Full Exam - General 1994 Cardiovascular auscultation of heart Systolic murmur grade: II/ 02/01/2013 None Full Exam - General 1994 Abdomen abdominal exam Overall: no tenderness 02/01/2013 None Full Exam - General 1994 Abdomen abdominal exam Overall: normal bowel sounds 02/01/2013 None Full Exam - General 1994 Abdomen abdominal exam Contour: protuberant 02/01/2013 None Full Exam - General 1994 Musculoskeletal head and neck Overall: head atraumatic 02/01/2013 None Full Exam - General 1994 Musculoskeletal head and neck Overall: cervical spine benign 02/01/2013 None Full Exam - General 1994 Neurologic gait Overall: no ataxia, no unsteadiness 02/01/2013 None Full Exam - General 1994 Psychiatric orientation/consciousness Overall: oriented to person, place and time 02/01/2013 None Full Exam - General 1994 Psychiatric mood and affect Overall: normal mood and affect 02/01/2013 None Full Exam - General 1994 Constitutional general appearance Overall: well developed 11/01/2012 None Full Exam - General 1994 Constitutional general appearance Overall: in no acute distress 11/01/2012 None Full Exam - General 1994 Constitutional general appearance Overall: well nourished 11/01/2012 None Full Exam - General 1994 Eyes pupils and irises Overall: pupils equal, round, reactive to light and accomodation 11/01/2012 None Full Exam - General 1994 Ears/Nose/Throat otoscopic exam Overall: external auditory canals clear 11/01/2012 None Full Exam - General 1994 Ears/Nose/Throat otoscopic exam Overall: tympanic membranes clear 11/01/2012 None Full Exam - General 1994 Ears/Nose/Throat oral cavity/pharynx/larynx Overall: oral mucosa clear 11/01/2012 None Full Exam - General 1995 Ears/Nose/Throat oral cavity/pharynx/larynx Overall: oropharyngeal mucosa clear 11/01/2012 None Full Exam - General 1994 Ears/Nose/Throat oral cavity/pharynx/larynx Overall: no masses 11/01/2012 None Full Exam - General 1994 Respiratory auscultation Overall: breath sounds clear bilaterally 11/01/2012 None Full Exam - General 1994 Respiratory respiratory effort/rhythm Overall: no retractions 11/01/2012 None Full Exam - General 1994 Respiratory respiratory effort/rhythm Overall: normal rate 11/01/2012 None Full Exam - General 1994 Cardiovascular extremities Overall: no clubbing 11/01/2012 None Full Exam - General 1994 Cardiovascular auscultation of heart Overall: regular rate 11/01/2012 None Full Exam - General 1994 Cardiovascular auscultation of heart Overall: normal heart sounds 11/01/2012 None Full Exam - General 1994 Cardiovascular auscultation of heart Systolic murmur: holosystolic 11/01/2012 None Full Exam - General 1994 Cardiovascular auscultation of heart Systolic murmur grade: II/ 11/01/2012 None Full Exam - General 1994 Abdomen abdominal exam Overall: no tenderness 11/01/2012 None Full Exam - General 1994 Abdomen abdominal exam Overall: normal bowel sounds 11/01/2012 None Full Exam - General 1994 Abdomen abdominal exam Contour: protuberant 11/01/2012 None Full Exam - General 1994 Musculoskeletal head and neck Overall: head atraumatic 11/01/2012 None Full Exam - General 1994 Musculoskeletal head and neck Overall: cervical spine benign 11/01/2012 None Full Exam - General 1994 Neurologic gait Overall: no ataxia, no unsteadiness 11/01/2012 None Full Exam - General 1994 Psychiatric orientation/consciousness Overall: oriented to person, place and time 11/01/2012 None Full Exam - General 1994 Psychiatric mood and affect Overall: normal mood and affect 11/01/2012 None Full Exam - General 1994 Integument inspection of skin Location: left arm 09/07/2012 4 lesions on left upper forearm and down to the interdigitary region on left dorsum of hand between digits # 4 and 5 Full Exam - General 1994 Integument inspection of skin Location: right arm 09/07/2012 5 lesions from lateral upper forearm down to wrist on right - the lateral lesion with more irritation at the borders, the lesions as they go down the arm appear less irritated, and have a white heaped up appearance. Full Exam - General 1994 Musculoskeletal head and neck Overall: cervical spine benign 09/01/2012 None Full Exam - General 1994 Neurologic gait Overall: no ataxia, no unsteadiness 09/01/2012 None Full Exam - General 1994 Psychiatric orientation/consciousness Overall: oriented to person, place and time 09/01/2012 None Full Exam - General 1994 Psychiatric mood and affect Overall: normal mood and affect 09/01/2012 None Full Exam - General 1994 Integument inspection of skin Location: left arm 09/01/2012 4-5 lesions on left upper forearm and down to the interdigitary region on left dorsum of hand between digits # 2 and 3, the lesion on left lateral forearm with heaped up border and appears fairly irritated today. Full Exam - General 1994 Integument inspection of skin Location: right arm 09/01/2012 about 4 lesions from lateral upper forearm down to wrist on right - the lateral lesion with more irritation at the borders, the lesions as they go down the arm appear less irritated, and have a white heaped up appearance. Full Exam - General 1994 Ears/Nose/Throat oral cavity/pharynx/larynx Overall: oropharyngeal mucosa clear 09/01/2012 None Full Exam - General 1994 Ears/Nose/Throat oral cavity/pharynx/larynx Overall: no masses 09/01/2012 None Full Exam - General 1994 Respiratory auscultation Overall: breath sounds clear bilaterally 09/01/2012 None Full Exam - General 1994 Respiratory respiratory effort/rhythm Overall: no retractions 09/01/2012 None Full Exam - General 1994 Respiratory respiratory effort/rhythm Overall: normal rate 09/01/2012 None Full Exam - General 1994 Cardiovascular extremities Overall: no clubbing 09/01/2012 None Full Exam - General 1994 Cardiovascular auscultation of heart Overall: regular rate 09/01/2012 None Full Exam - General 1994 Cardiovascular auscultation of heart Overall: normal heart sounds 09/01/2012 None Full Exam - General 1994 Cardiovascular auscultation of heart Systolic murmur: holosystolic 09/01/2012 None Full Exam - General 1994 Cardiovascular auscultation of heart Systolic murmur grade: II/ 09/01/2012 None Full Exam - General 1994 Abdomen abdominal exam Overall: no tenderness 09/01/2012 None Full Exam - General 1994 Abdomen abdominal exam Overall: normal bowel sounds 09/01/2012 None Full Exam - General 1995 Abdomen abdominal exam Contour: protuberant 09/01/2012 None Full Exam - General 1994 Musculoskeletal head and neck Overall: head atraumatic 09/01/2012 None Full Exam - General 1995 Constitutional general appearance Overall: well developed 09/01/2012 None Full Exam - General 1995 Constitutional general appearance Overall: in no acute distress 09/01/2012 None Full Exam - General 1995 Constitutional general appearance Overall: well nourished 09/01/2012 None Full Exam - General 1994 Eyes pupils and irises Overall: pupils equal, round, reactive to light and accomodation 09/01/2012 None Full Exam - General 1995 Ears/Nose/Throat otoscopic exam Overall: external auditory canals clear 09/01/2012 None Full Exam - General 1995 Ears/Nose/Throat otoscopic exam Overall: tympanic membranes clear 09/01/2012 None Full Exam - General 1995 Ears/Nose/Throat oral cavity/pharynx/larynx Overall: oral mucosa clear 09/01/2012 None Full Exam - General 1994 Constitutional general appearance Overall: well developed 07/07/2012 None Full Exam - General 1994 Constitutional general appearance Overall: in no acute distress 07/07/2012 None Full Exam - General 1994 Constitutional general appearance Overall: well nourished 07/07/2012 None Full Exam - General 1994 Respiratory auscultation Overall: breath sounds clear bilaterally 07/07/2012 None Full Exam - General 1994 Respiratory respiratory effort/rhythm Overall: no retractions 07/07/2012 None Full Exam - General 1994 Respiratory respiratory effort/rhythm Overall: normal rate 07/07/2012 None Full Exam - General 1994 Cardiovascular extremities Overall: no clubbing 07/07/2012 None Full Exam - General 1994 Cardiovascular auscultation of heart Overall: regular rate 07/07/2012 None Full Exam - General 1994 Cardiovascular auscultation of heart Overall: normal heart sounds 07/07/2012 None Full Exam - General 1994 Cardiovascular auscultation of heart Systolic murmur: holosystolic 07/07/2012 None Full Exam - General 1994 Cardiovascular auscultation of heart Systolic murmur grade: II/ 07/07/2012 None Full Exam - General 1994 Abdomen abdominal exam Contour: protuberant 07/07/2012 None Full Exam - General 1994 Psychiatric mood and affect Overall: normal mood and affect 07/07/2012 None Full Exam - General 1994 Psychiatric orientation/consciousness Overall: oriented to person, place and time 07/07/2012 None Full Exam - General 1995 Neurologic gait Overall: no ataxia, no unsteadiness 07/07/2012 None Full Exam - Pulmonary Constitutional general appearance Overall: well nourished 06/28/2012 None Full Exam - Pulmonary Constitutional general appearance Overall: well developed 06/28/2012 None Full Exam - Pulmonary Constitutional general appearance Overall: in no acute distress 06/28/2012 None Full Exam - Pulmonary Eyes conjunctiva/ eyelids Overall: conjunctiva clear 06/28/2012 None Full Exam - Pulmonary Eyes pupils and irises Overall: pupils equal, round, reactive to light and accomodation 06/28/2012 None Full Exam - Pulmonary Ears/Nose/Throat oropharynx Oral mucosa: a normal exam 06/28/2012 None Full Exam - Pulmonary Neck inspection of neck Overall: normal size 06/28/2012 None Full Exam - Pulmonary Neck inspection of neck Overall: normal appearance 06/28/2012 None Full Exam - Pulmonary Respiratory auscultation Left upper lung field: a normal exam 06/28/2012 None Full Exam - Pulmonary Respiratory auscultation Left lower lung field: crackles 06/28/2012 None Full Exam - Pulmonary Respiratory auscultation Right upper lung field: a normal exam 06/28/2012 None Full Exam - Pulmonary Respiratory auscultation Right middle lung field: a normal exam 06/28/2012 None Full Exam - Pulmonary Respiratory auscultation Right lower lung field: diminished 06/28/2012 None Full Exam - Pulmonary Respiratory respiratory effort/rhythm Overall: no retractions 06/28/2012 None Full Exam - Pulmonary Respiratory respiratory effort/rhythm Overall: normal rate 06/28/2012 None Full Exam - Pulmonary Respiratory breast/ chest inspection Overall: normal shape, normal expansion 06/28/2012 None Full Exam - Pulmonary Cardiovascular auscultation of heart Overall: regular rate 06/28/2012 None Full Exam - Pulmonary Cardiovascular auscultation of heart Overall: normal heart sounds 06/28/2012 None Full Exam - Pulmonary Cardiovascular examination of vasculature Overall: no clubbing 06/28/2012 None Full Exam - Pulmonary Cardiovascular examination of vasculature Edema: absent 06/28/2012 None Full Exam - Pulmonary Abdomen abdominal exam Overall: normal bowel sounds 06/28/2012 None Full Exam - Pulmonary Abdomen abdominal exam Contour: rounded 06/28/2012 None Full Exam - Pulmonary Lymphatic palpation of nodes Overall: anterior cervical chain benign 06/28/2012 None Full Exam - Pulmonary Lymphatic palpation of nodes Overall: posterior cervical chain benign 06/28/2012 None Full Exam - Pulmonary Musculoskeletal gait and station Overall: normal gait 06/28/2012 None Full Exam - Pulmonary Musculoskeletal gait and station Overall: normal station 06/28/2012 None Full Exam - Pulmonary Integument inspection/palpation Overall: no rash, lesions 06/28/2012 None Full Exam - Pulmonary Neurologic deep tendon reflexes Overall: deep tendon reflexes intact 06/28/2012 None Full Exam - Pulmonary Neurologic mental status Overall: alert 06/28/2012 None Full Exam - Pulmonary Neurologic mental status Overall: oriented 06/28/2012 None Full Exam - Pulmonary Neurologic cranial nerves Overall: cranial nerves 1-12 intact 06/28/2012 None Full Exam - Pulmonary Psychiatric orientation/consciousness Overall: oriented to person, place and time 06/28/2012 None Full Exam - General 1994 Constitutional general appearance Overall: well nourished 06/08/2012 None Full Exam - General 1994 Constitutional general appearance Overall: well developed 06/08/2012 None Full Exam - General 1994 Constitutional general appearance Overall: in no acute distress 06/08/2012 None Full Exam - General 1994 Eyes pupils and irises Overall: pupils equal, round, reactive to light and accomodation 06/08/2012 None Full Exam - General 1994 Ears/Nose/Throat otoscopic exam Overall: external auditory canals clear 06/08/2012 None Full Exam - General 1994 Ears/Nose/Throat otoscopic exam Overall: tympanic membranes clear 06/08/2012 None Full Exam - General 1994 Ears/Nose/Throat oral cavity/pharynx/larynx Overall: oral mucosa clear 06/08/2012 None Full Exam - General 1994 Ears/Nose/Throat oral cavity/pharynx/larynx Overall: oropharyngeal mucosa clear 06/08/2012 None Full Exam - General 1995 Ears/Nose/Throat oral cavity/pharynx/larynx Overall: no masses 06/08/2012 None Full Exam - General 1994 Respiratory auscultation Overall: breath sounds clear bilaterally 06/08/2012 None Full Exam - General 1994 Respiratory respiratory effort/rhythm Overall: no retractions 06/08/2012 None Full Exam - General 1994 Respiratory respiratory effort/rhythm Overall: normal rate 06/08/2012 None Full Exam - General 1994 Cardiovascular auscultation of heart Overall: regular rate 06/08/2012 None Full Exam - General 1994 Cardiovascular auscultation of heart Overall: normal heart sounds 06/08/2012 None Full Exam - General 1994 Cardiovascular auscultation of heart Systolic murmur: holosystolic 06/08/2012 None Full Exam - General 1994 Cardiovascular auscultation of heart Systolic murmur grade: II/ 06/08/2012 None Full Exam - General 1995 Cardiovascular extremities Overall: no clubbing 06/08/2012 None Full Exam - General 1994 Abdomen abdominal exam Overall: no tenderness 06/08/2012 None Full Exam - General 1994 Abdomen abdominal exam Overall: normal bowel sounds 06/08/2012 None Full Exam - General 1995 Abdomen abdominal exam Contour: protuberant 06/08/2012 None Full Exam - General 1994 Musculoskeletal head and neck Overall: head atraumatic 06/08/2012 None Full Exam - General 1994 Musculoskeletal head and neck Overall: cervical spine benign 06/08/2012 None Full Exam - General 1994 Neurologic gait Overall: no ataxia, no unsteadiness 06/08/2012 None Full Exam - General 1994 Psychiatric orientation/consciousness Overall: oriented to person, place and time 06/08/2012 None Full Exam - General 1994 Psychiatric mood and affect Overall: normal mood and affect 06/08/2012 None Full Exam - General 1994 Constitutional general appearance Overall: well developed 05/25/2012 None Full Exam - General 1994 Constitutional general appearance Overall: in no acute distress 05/25/2012 None Full Exam - General 1994 Constitutional general appearance Overall: well nourished 05/25/2012 None Full Exam - General 1994 Eyes pupils and irises Overall: pupils equal, round, reactive to light and accomodation 05/25/2012 None Full Exam - General 1994 Ears/Nose/Throat otoscopic exam Overall: external auditory canals clear 05/25/2012 None Full Exam - General 1994 Ears/Nose/Throat otoscopic exam Overall: tympanic membranes clear 05/25/2012 None Full Exam - General 1994 Ears/Nose/Throat oral cavity/pharynx/larynx Overall: oral mucosa clear 05/25/2012 None Full Exam - General 1995 Ears/Nose/Throat oral cavity/pharynx/larynx Overall: oropharyngeal mucosa clear 05/25/2012 None Full Exam - General 1994 Ears/Nose/Throat oral cavity/pharynx/larynx Overall: no masses 05/25/2012 None Full Exam - General 1994 Respiratory auscultation Overall: breath sounds clear bilaterally 05/25/2012 None Full Exam - General 1994 Respiratory respiratory effort/rhythm Overall: no retractions 05/25/2012 None Full Exam - General 1994 Respiratory respiratory effort/rhythm Overall: normal rate 05/25/2012 None Full Exam - General 1994 Cardiovascular extremities Overall: no clubbing 05/25/2012 None Full Exam - General 1994 Cardiovascular auscultation of heart Overall: regular rate 05/25/2012 None Full Exam - General 1994 Cardiovascular auscultation of heart Overall: normal heart sounds 05/25/2012 None Full Exam - General 1994 Cardiovascular auscultation of heart Systolic murmur: holosystolic 05/25/2012 None Full Exam - General 1994 Cardiovascular auscultation of heart Systolic murmur grade: II/ 05/25/2012 None Full Exam - General 1994 Abdomen abdominal exam Overall: no tenderness 05/25/2012 None Full Exam - General 1994 Abdomen abdominal exam Overall: normal bowel sounds 05/25/2012 None Full Exam - General 1994 Abdomen abdominal exam Contour: protuberant 05/25/2012 None Full Exam - General 1994 Musculoskeletal head and neck Overall: head atraumatic 05/25/2012 None Full Exam - General 1994 Musculoskeletal head and neck Overall: cervical spine benign 05/25/2012 None Full Exam - General 1994 Neurologic gait Overall: no ataxia, no unsteadiness 05/25/2012 None Full Exam - General 1994 Psychiatric orientation/consciousness Overall: oriented to person, place and time 05/25/2012 None Full Exam - General 1994 Psychiatric mood and affect Overall: normal mood and affect 05/25/2012 None Full Exam - Pulmonary Constitutional general appearance Overall: well nourished 03/17/2012 None Full Exam - Pulmonary Constitutional general appearance Overall: well developed 03/17/2012 None Full Exam - Pulmonary Constitutional general appearance Overall: in no acute distress 03/17/2012 None Full Exam - Pulmonary Eyes conjunctiva/ eyelids Overall: conjunctiva clear 03/17/2012 None Full Exam - Pulmonary Eyes pupils and irises Overall: pupils equal, round, reactive to light and accomodation 03/17/2012 None Full Exam - Pulmonary Neck inspection of neck Overall: normal size 03/17/2012 None Full Exam - Pulmonary Neck inspection of neck Overall: normal appearance 03/17/2012 None Full Exam - Pulmonary Respiratory auscultation Left upper lung field: a normal exam 03/17/2012 None Full Exam - Pulmonary Respiratory auscultation Left lower lung field: crackles 03/17/2012 None Full Exam - Pulmonary Respiratory auscultation Right upper lung field: a normal exam 03/17/2012 None Full Exam - Pulmonary Respiratory auscultation Right middle lung field: a normal exam 03/17/2012 None Full Exam - Pulmonary Respiratory auscultation Right lower lung field: diminished 03/17/2012 None Full Exam - Pulmonary Respiratory respiratory effort/rhythm Overall: no retractions 03/17/2012 None Full Exam - Pulmonary Respiratory respiratory effort/rhythm Overall: normal rate 03/17/2012 None Full Exam - Pulmonary Respiratory breast/ chest inspection Overall: normal shape, normal expansion 03/17/2012 None Full Exam - Pulmonary Cardiovascular auscultation of heart Overall: regular rate 03/17/2012 None Full Exam - Pulmonary Cardiovascular auscultation of heart Overall: normal heart sounds 03/17/2012 None Full Exam - Pulmonary Cardiovascular examination of vasculature Overall: no clubbing 03/17/2012 None Full Exam - Pulmonary Cardiovascular examination of vasculature Edema: absent 03/17/2012 None Full Exam - Pulmonary Abdomen abdominal exam Overall: normal bowel sounds 03/17/2012 None Full Exam - Pulmonary Abdomen abdominal exam Contour: rounded 03/17/2012 None Full Exam - Pulmonary Lymphatic palpation of nodes Overall: anterior cervical chain benign 03/17/2012 None Full Exam - Pulmonary Lymphatic palpation of nodes Overall: posterior cervical chain benign 03/17/2012 None Full Exam - Pulmonary Musculoskeletal gait and station Overall: normal gait 03/17/2012 None Full Exam - Pulmonary Musculoskeletal gait and station Overall: normal station 03/17/2012 None Full Exam - Pulmonary Integument inspection/palpation Overall: no rash, lesions 03/17/2012 None Full Exam - Pulmonary Neurologic deep tendon reflexes Overall: deep tendon reflexes intact 03/17/2012 None Full Exam - Pulmonary Neurologic mental status Overall: alert 03/17/2012 None Full Exam - Pulmonary Neurologic mental status Overall: oriented 03/17/2012 None Full Exam - Pulmonary Neurologic cranial nerves Overall: cranial nerves 1-12 intact 03/17/2012 None Full Exam - Pulmonary Psychiatric orientation/consciousness Overall: oriented to person, place and time 03/17/2012 None Full Exam - Pulmonary Ears/Nose/Throat oropharynx Oral mucosa: a normal exam 03/17/2012 None Full Exam - General 1995 Ears/Nose/Throat oral cavity/pharynx/larynx Overall: oral mucosa clear 02/17/2012 None Full Exam - General 1994 Ears/Nose/Throat oral cavity/pharynx/larynx Overall: oropharyngeal mucosa clear 02/17/2012 None Full Exam - General 1994 Ears/Nose/Throat oral cavity/pharynx/larynx Overall: no masses 02/17/2012 None Full Exam - General 1994 Respiratory auscultation Overall: breath sounds clear bilaterally 02/17/2012 None Full Exam - General 1994 Respiratory respiratory effort/rhythm Overall: no retractions 02/17/2012 None Full Exam - General 1994 Respiratory respiratory effort/rhythm Overall: normal rate 02/17/2012 None Full Exam - General 1994 Cardiovascular auscultation of heart Overall: regular rate 02/17/2012 None Full Exam - General 1994 Cardiovascular auscultation of heart Overall: normal heart sounds 02/17/2012 None Full Exam - General 1994 Cardiovascular auscultation of heart Systolic murmur: holosystolic 02/17/2012 None Full Exam - General 1994 Cardiovascular auscultation of heart Systolic murmur grade: II/ 02/17/2012 None Full Exam - General 1994 Cardiovascular extremities Overall: no clubbing 02/17/2012 None Full Exam - General 1994 Abdomen abdominal exam Overall: no tenderness 02/17/2012 None Full Exam - General 1994 Abdomen abdominal exam Overall: normal bowel sounds 02/17/2012 None Full Exam - General 1994 Constitutional general appearance Overall: well nourished 02/17/2012 None Full Exam - General 1994 Constitutional general appearance Overall: well developed 02/17/2012 None Full Exam - General 1994 Constitutional general appearance Overall: in no acute distress 02/17/2012 None Full Exam - General 1994 Eyes pupils and irises Overall: pupils equal, round, reactive to light and accomodation 02/17/2012 None Full Exam - General 1994 Ears/Nose/Throat otoscopic exam Overall: external auditory canals clear 02/17/2012 None Full Exam - General 1994 Ears/Nose/Throat otoscopic exam Overall: tympanic membranes clear 02/17/2012 None Full Exam - General 1994 Abdomen abdominal exam Contour: protuberant 02/17/2012 None Full Exam - General 1994 Musculoskeletal head and neck Overall: head atraumatic 02/17/2012 None Full Exam - General 1994 Musculoskeletal head and neck Overall: cervical spine benign 02/17/2012 None Full Exam - General 1994 Neurologic gait Overall: no ataxia, no unsteadiness 02/17/2012 None Full Exam - General 1994 Psychiatric orientation/consciousness Overall: oriented to person, place and time 02/17/2012 None Full Exam - General 1994 Psychiatric mood and affect Overall: normal mood and affect 02/17/2012 None Full Exam - General 1994 Constitutional general appearance Overall: well nourished 10/21/2011 None Full Exam - General 1994 Constitutional general appearance Overall: well developed 10/21/2011 None Full Exam - General 1994 Constitutional general appearance Overall: in no acute distress 10/21/2011 None Full Exam - General 1994 Eyes pupils and irises Overall: pupils equal, round, reactive to light and accomodation 10/21/2011 None Full Exam - General 1994 Ears/Nose/Throat otoscopic exam Overall: external auditory canals clear 10/21/2011 None Full Exam - General 1994 Ears/Nose/Throat otoscopic exam Overall: tympanic membranes clear 10/21/2011 None Full Exam - General 1994 Ears/Nose/Throat oral cavity/pharynx/larynx Overall: oral mucosa clear 10/21/2011 None Full Exam - General 1994 Ears/Nose/Throat oral cavity/pharynx/larynx Overall: oropharyngeal mucosa clear 10/21/2011 None Full Exam - General 1995 Ears/Nose/Throat oral cavity/pharynx/larynx Overall: no masses 10/21/2011 None Full Exam - General 1994 Respiratory auscultation Overall: breath sounds clear bilaterally 10/21/2011 None Full Exam - General 1994 Respiratory respiratory effort/rhythm Overall: no retractions 10/21/2011 None Full Exam - General 1994 Respiratory respiratory effort/rhythm Overall: normal rate 10/21/2011 None Full Exam - General 1994 Cardiovascular auscultation of heart Overall: regular rate 10/21/2011 None Full Exam - General 1994 Cardiovascular auscultation of heart Overall: normal heart sounds 10/21/2011 None Full Exam - General 1994 Cardiovascular auscultation of heart Systolic murmur: holosystolic 10/21/2011 None Full Exam - General 1994 Cardiovascular auscultation of heart Systolic murmur grade: II/ 10/21/2011 None Full Exam - General 1994 Cardiovascular extremities Overall: no clubbing 10/21/2011 None Full Exam - General 1994 Abdomen abdominal exam Overall: no tenderness 10/21/2011 None Full Exam - General 1994 Abdomen abdominal exam Overall: normal bowel sounds 10/21/2011 None Full Exam - General 1995 Abdomen abdominal exam Contour: protuberant 10/21/2011 None Full Exam - General 1995 Musculoskeletal head and neck Overall: head atraumatic 10/21/2011 None Full Exam - General 1995 Musculoskeletal head and neck Overall: cervical spine benign 10/21/2011 None Full Exam - General 1995 Neurologic gait Overall: no ataxia, no unsteadiness 10/21/2011 None Full Exam - General 1995 Psychiatric orientation/consciousness Overall: oriented to person, place and time 10/21/2011 None Full Exam - General 1995 Psychiatric mood and affect Overall: normal mood and affect 10/21/2011 None Full Exam - General 1994 Cardiovascular auscultation of heart Systolic murmur: holosystolic 06/24/2011 None Full Exam - General 1994 Cardiovascular auscultation of heart Systolic murmur grade: II/ 06/24/2011 None Full Exam - General 1995 Musculoskeletal spine, ribs and pelvis Sacroiliac joints: tender right sacroiliac joint 06/24/2011 injection with lidocaoine and kenalog 0.5ml of each using sterile technique Full Exam - General 1994 Musculoskeletal spine, ribs and pelvis Sacroiliac joints: tender left sacroiliac joint 06/24/2011 injection with lidocaoine and kenalog 0.5ml of each using sterile technique Full Exam - General 1994 Ears/Nose/Throat oral cavity/pharynx/larynx Overall: oral mucosa clear 06/24/2011 None Full Exam - General 1995 Ears/Nose/Throat oral cavity/pharynx/larynx Overall: oropharyngeal mucosa clear 06/24/2011 None Full Exam - General 1994 Ears/Nose/Throat oral cavity/pharynx/larynx Overall: no masses 06/24/2011 None Full Exam - General 1994 Eyes pupils and irises Overall: pupils equal, round, reactive to light and accomodation 06/24/2011 None Full Exam - General 1994 Musculoskeletal head and neck Overall: head atraumatic 06/24/2011 None Full Exam - General 1994 Musculoskeletal head and neck Overall: cervical spine benign 06/24/2011 None Full Exam - General 1994 Neurologic gait Overall: no ataxia, no unsteadiness 06/24/2011 None Full Exam - General 1994 Psychiatric orientation/consciousness Overall: oriented to person, place and time 06/24/2011 None Full Exam - General 1994 Psychiatric mood and affect Overall: normal mood and affect 06/24/2011 None Full Exam - General 1994 Respiratory auscultation Overall: breath sounds clear bilaterally 06/24/2011 None Full Exam - General 1994 Respiratory respiratory effort/rhythm Overall: no retractions 06/24/2011 None Full Exam - General 1994 Respiratory respiratory effort/rhythm Overall: normal rate 06/24/2011 None Full Exam - General 1994 Abdomen abdominal exam Overall: no tenderness 06/24/2011 None Full Exam - General 1994 Abdomen abdominal exam Overall: normal bowel sounds 06/24/2011 None Full Exam - General 1994 Abdomen abdominal exam Contour: protuberant 06/24/2011 None Full Exam - General 1994 Cardiovascular auscultation of heart Overall: regular rate 06/24/2011 None Full Exam - General 1994 Cardiovascular auscultation of heart Overall: normal heart sounds 06/24/2011 None Full Exam - General 1994 Cardiovascular extremities Overall: no clubbing 06/24/2011 None Full Exam - General 1994 Constitutional general appearance Overall: well nourished 06/24/2011 None Full Exam - General 1994 Constitutional general appearance Overall: well developed 06/24/2011 None Full Exam - General 1994 Constitutional general appearance Overall: in no acute distress 06/24/2011 None Full Exam - General 1994 Ears/Nose/Throat otoscopic exam Overall: external auditory canals clear 06/24/2011 None Full Exam - General 1994 Ears/Nose/Throat otoscopic exam Overall: tympanic membranes clear 06/24/2011 None Full Exam - General 1994 Constitutional general appearance Overall: well nourished 05/25/2011 None Full Exam - General 1994 Constitutional general appearance Overall: well developed 05/25/2011 None Full Exam - General 1994 Constitutional general appearance Overall: in no acute distress 05/25/2011 None Full Exam - General 1994 Eyes pupils and irises Overall: pupils equal, round, reactive to light and accomodation 05/25/2011 None Full Exam - General 1994 Ears/Nose/Throat otoscopic exam Overall: external auditory canals clear 05/25/2011 None Full Exam - General 1994 Ears/Nose/Throat otoscopic exam Overall: tympanic membranes clear 05/25/2011 None Full Exam - General 1994 Ears/Nose/Throat oral cavity/pharynx/larynx Overall: oral mucosa clear 05/25/2011 None Full Exam - General 1994 Ears/Nose/Throat oral cavity/pharynx/larynx Overall: oropharyngeal mucosa clear 05/25/2011 None Full Exam - General 1994 Ears/Nose/Throat oral cavity/pharynx/larynx Overall: no masses 05/25/2011 None Full Exam - General 1994 Respiratory auscultation Overall: breath sounds clear bilaterally 05/25/2011 None Full Exam - General 1994 Respiratory respiratory effort/rhythm Overall: no retractions 05/25/2011 None Full Exam - General 1994 Respiratory respiratory effort/rhythm Overall: normal rate 05/25/2011 None Full Exam - General 1994 Cardiovascular auscultation of heart Overall: regular rate 05/25/2011 None Full Exam - General 1994 Cardiovascular auscultation of heart Overall: normal heart sounds 05/25/2011 None Full Exam - General 1994 Cardiovascular extremities Overall: no clubbing 05/25/2011 None Full Exam - General 1994 Abdomen abdominal exam Overall: no tenderness 05/25/2011 None Full Exam - General 1994 Abdomen abdominal exam Overall: normal bowel sounds 05/25/2011 None Full Exam - General 1994 Abdomen abdominal exam Contour: protuberant 05/25/2011 None Full Exam - General 1994 Musculoskeletal head and neck Overall: head atraumatic 05/25/2011 None Full Exam - General 1994 Musculoskeletal head and neck Overall: cervical spine benign 05/25/2011 None Full Exam - General 1994 Neurologic gait Overall: no ataxia, no unsteadiness 05/25/2011 None Full Exam - General 1994 Psychiatric orientation/consciousness Overall: oriented to person, place and time 05/25/2011 None Full Exam - General 1994 Psychiatric mood and affect Overall: normal mood and affect 05/25/2011 None Full Exam - General 1994 Cardiovascular auscultation of heart Systolic murmur: holosystolic 05/25/2011 None Full Exam - General 1994 Cardiovascular auscultation of heart Systolic murmur grade: II/ 05/25/2011 None Full Exam - General 1994 Respiratory respiratory effort/rhythm Overall: normal rate 03/23/2011 None Full Exam - General 1994 Neurologic gait Overall: no ataxia, no unsteadiness 03/23/2011 None Full Exam - General 1994 Psychiatric orientation/consciousness Overall: oriented to person, place and time 03/23/2011 None Full Exam - General 1994 Psychiatric mood and affect Overall: normal mood and affect 03/23/2011 None Full Exam - General 1994 Musculoskeletal head and neck Overall: cervical spine benign 03/23/2011 None Full Exam - General 1994 Musculoskeletal head and neck Overall: head atraumatic 03/23/2011 None Full Exam - General 1994 Constitutional general appearance Overall: well nourished 03/23/2011 None Full Exam - General 1994 Constitutional general appearance Overall: well developed 03/23/2011 None Full Exam - General 1994 Constitutional general appearance Overall: in no acute distress 03/23/2011 None Full Exam - General 1994 Eyes pupils and irises Overall: pupils equal, round, reactive to light and accomodation 03/23/2011 None Full Exam - General 1994 Ears/Nose/Throat otoscopic exam Overall: tympanic membranes clear 03/23/2011 None Full Exam - General 1994 Ears/Nose/Throat otoscopic exam Overall: external auditory canals clear 03/23/2011 None Full Exam - General 1994 Ears/Nose/Throat oral cavity/pharynx/larynx Overall: oropharyngeal mucosa clear 03/23/2011 None Full Exam - General 1994 Ears/Nose/Throat oral cavity/pharynx/larynx Overall: no masses 03/23/2011 None Full Exam - General 1994 Respiratory respiratory effort/rhythm Overall: no retractions 03/23/2011 None Full Exam - General 1994 Respiratory auscultation Overall: breath sounds clear bilaterally 03/23/2011 None Full Exam - General 1994 Cardiovascular auscultation of heart Overall: regular rate 03/23/2011 None Full Exam - General 1994 Cardiovascular auscultation of heart Overall: normal heart sounds 03/23/2011 None Full Exam - General 1994 Cardiovascular extremities Overall: no clubbing 03/23/2011 None Full Exam - General 1994 Abdomen abdominal exam Overall: no tenderness 03/23/2011 None Full Exam - General 1994 Abdomen abdominal exam Overall: normal bowel sounds 03/23/2011 None Full Exam - General 1994 Abdomen abdominal exam Contour: protuberant 03/23/2011 None Full Exam - General 1994 Ears/Nose/Throat oral cavity/pharynx/larynx Overall: oral mucosa clear 03/23/2011 None Full Exam - Pulmonary Neck inspection of neck Overall: normal appearance 02/03/2011 None Full Exam - Pulmonary Respiratory auscultation Left upper lung field: a normal exam 02/03/2011 None Full Exam - Pulmonary Respiratory auscultation Right upper lung field: a normal exam 02/03/2011 None Full Exam - Pulmonary Respiratory auscultation Right middle lung field: a normal exam 02/03/2011 None Full Exam - Pulmonary Respiratory respiratory effort/rhythm Overall: no retractions 02/03/2011 None Full Exam - Pulmonary Respiratory respiratory effort/rhythm Overall: normal rate 02/03/2011 None Full Exam - Pulmonary Respiratory breast/ chest inspection Overall: normal shape, normal expansion 02/03/2011 None Full Exam - Pulmonary Cardiovascular auscultation of heart Overall: regular rate 02/03/2011 None Full Exam - Pulmonary Cardiovascular auscultation of heart Overall: normal heart sounds 02/03/2011 None Full Exam - Pulmonary Cardiovascular examination of vasculature Overall: no clubbing 02/03/2011 None Full Exam - Pulmonary Cardiovascular examination of vasculature Edema: absent 02/03/2011 None Full Exam - Pulmonary Abdomen abdominal exam Overall: normal bowel sounds 02/03/2011 None Full Exam - Pulmonary Lymphatic palpation of nodes Overall: anterior cervical chain benign 02/03/2011 None Full Exam - Pulmonary Ears/Nose/Throat oropharynx Oral mucosa: dry 02/03/2011 --Resolved Full Exam - Pulmonary Ears/Nose/Throat oropharynx Oropharynx: erythema 02/03/2011 --Resolved. Pustule noted to right ear canal. Dr. Ferro in to evaluate patient-open pustule with 23g needle and drained. Culture obtained as well. Silver nitrate stick applied. Patient tolerated well. Full Exam - Pulmonary Respiratory auscultation Left lower lung field: crackles 02/03/2011 --Resolved Full Exam - Pulmonary Respiratory auscultation Right lower lung field: diminished 02/03/2011 --Resolved Full Exam - Pulmonary Abdomen abdominal exam Contour: rounded 02/03/2011 None Full Exam - Pulmonary Constitutional general appearance Overall: well nourished 02/03/2011 None Full Exam - Pulmonary Constitutional general appearance Overall: well developed 02/03/2011 None Full Exam - Pulmonary Constitutional general appearance Overall: in no acute distress 02/03/2011 None Full Exam - Pulmonary Eyes conjunctiva/ eyelids Overall: conjunctiva clear 02/03/2011 None Full Exam - Pulmonary Eyes pupils and irises Overall: pupils equal, round, reactive to light and accomodation 02/03/2011 None Full Exam - Pulmonary Neck inspection of neck Overall: normal size 02/03/2011 None Full Exam - Pulmonary Lymphatic palpation of nodes Overall: posterior cervical chain benign 02/03/2011 None Full Exam - Pulmonary Musculoskeletal gait and station Overall: normal gait 02/03/2011 None Full Exam - Pulmonary Musculoskeletal gait and station Overall: normal station 02/03/2011 None Full Exam - Pulmonary Integument inspection/palpation Overall: no rash, lesions 02/03/2011 None Full Exam - Pulmonary Neurologic deep tendon reflexes Overall: deep tendon reflexes intact 02/03/2011 None Full Exam - Pulmonary Neurologic mental status Overall: alert 02/03/2011 None Full Exam - Pulmonary Neurologic mental status Overall: oriented 02/03/2011 None Full Exam - Pulmonary Neurologic cranial nerves Overall: cranial nerves 1-12 intact 02/03/2011 None Full Exam - Pulmonary Psychiatric orientation/consciousness Overall: oriented to person, place and time 02/03/2011 None Full Exam - Pulmonary Abdomen abdominal exam Contour: rounded 01/30/2011 None Full Exam - Pulmonary Lymphatic palpation of nodes Overall: anterior cervical chain benign 01/30/2011 None Full Exam - Pulmonary Lymphatic palpation of nodes Overall: posterior cervical chain benign 01/30/2011 None Full Exam - Pulmonary Musculoskeletal gait and station Overall: normal gait 01/30/2011 None Full Exam - Pulmonary Musculoskeletal gait and station Overall: normal station 01/30/2011 None Full Exam - Pulmonary Integument inspection/palpation Overall: no rash, lesions 01/30/2011 None Full Exam - Pulmonary Neurologic deep tendon reflexes Overall: deep tendon reflexes intact 01/30/2011 None Full Exam - Pulmonary Neurologic mental status Overall: alert 01/30/2011 None Full Exam - Pulmonary Respiratory auscultation Left lower lung field: crackles 01/30/2011 --Improved Full Exam - Pulmonary Respiratory auscultation Right upper lung field: a normal exam 01/30/2011 None Full Exam - Pulmonary Respiratory auscultation Right middle lung field: a normal exam 01/30/2011 None Full Exam - Pulmonary Respiratory auscultation Right lower lung field: diminished 01/30/2011 --Improved Full Exam - Pulmonary Respiratory respiratory effort/rhythm Overall: no retractions 01/30/2011 None Full Exam - Pulmonary Respiratory respiratory effort/rhythm Overall: normal rate 01/30/2011 None Full Exam - Pulmonary Abdomen abdominal exam Overall: normal bowel sounds 01/30/2011 None Full Exam - Pulmonary Respiratory breast/ chest inspection Overall: normal shape, normal expansion 01/30/2011 None Full Exam - Pulmonary Constitutional general appearance Overall: well nourished 01/30/2011 None Full Exam - Pulmonary Constitutional general appearance Overall: well developed 01/30/2011 None Full Exam - Pulmonary Constitutional general appearance Overall: in no acute distress 01/30/2011 None Full Exam - Pulmonary Cardiovascular auscultation of heart Overall: regular rate 01/30/2011 None Full Exam - Pulmonary Cardiovascular auscultation of heart Overall: normal heart sounds 01/30/2011 None Full Exam - Pulmonary Cardiovascular examination of vasculature Overall: no clubbing 01/30/2011 None Full Exam - Pulmonary Cardiovascular examination of vasculature Edema: absent 01/30/2011 None Full Exam - Pulmonary Neurologic mental status Overall: oriented 01/30/2011 None Full Exam - Pulmonary Neurologic cranial nerves Overall: cranial nerves 1-12 intact 01/30/2011 None Full Exam - Pulmonary Psychiatric orientation/consciousness Overall: oriented to person, place and time 01/30/2011 None Full Exam - Pulmonary Eyes conjunctiva/ eyelids Overall: conjunctiva clear 01/30/2011 None Full Exam - Pulmonary Eyes pupils and irises Overall: pupils equal, round, reactive to light and accomodation 01/30/2011 None Full Exam - Pulmonary Ears/Nose/Throat oropharynx Oral mucosa: dry 01/30/2011 --Improved Full Exam - Pulmonary Ears/Nose/Throat oropharynx Oropharynx: erythema 01/30/2011 --Improved Full Exam - Pulmonary Neck inspection of neck Overall: normal size 01/30/2011 None Full Exam - Pulmonary Neck inspection of neck Overall: normal appearance 01/30/2011 None Full Exam - Pulmonary Respiratory auscultation Left upper lung field: a normal exam 01/30/2011 None Full Exam - Pulmonary Neurologic deep tendon reflexes Overall: deep tendon reflexes intact 01/29/2011 None Full Exam - Pulmonary Neurologic mental status Overall: alert 01/29/2011 None Full Exam - Pulmonary Neurologic mental status Overall: oriented 01/29/2011 None Full Exam - Pulmonary Neurologic cranial nerves Overall: cranial nerves 1-12 intact 01/29/2011 None Full Exam - Pulmonary Psychiatric orientation/consciousness Overall: oriented to person, place and time 01/29/2011 None Full Exam - Pulmonary Ears/Nose/Throat oropharynx Oral mucosa: dry 01/29/2011 None Full Exam - Pulmonary Cardiovascular examination of vasculature Edema: absent 01/29/2011 None Full Exam - Pulmonary Cardiovascular examination of vasculature Overall: no clubbing 01/29/2011 None Full Exam - Pulmonary Constitutional general appearance Overall: well nourished 01/29/2011 None Full Exam - Pulmonary Constitutional general appearance Overall: well developed 01/29/2011 None Full Exam - Pulmonary Constitutional general appearance Overall: in no acute distress 01/29/2011 None Full Exam - Pulmonary Eyes conjunctiva/ eyelids Overall: conjunctiva clear 01/29/2011 None Full Exam - Pulmonary Eyes pupils and irises Overall: pupils equal, round, reactive to light and accomodation 01/29/2011 None Full Exam - Pulmonary Ears/Nose/Throat oropharynx Oropharynx: erythema 01/29/2011 None Full Exam - Pulmonary Abdomen abdominal exam Contour: rounded 01/29/2011 None Full Exam - Pulmonary Abdomen abdominal exam Overall: normal bowel sounds 01/29/2011 None Full Exam - Pulmonary Lymphatic palpation of nodes Overall: anterior cervical chain benign 01/29/2011 None Full Exam - Pulmonary Lymphatic palpation of nodes Overall: posterior cervical chain benign 01/29/2011 None Full Exam - Pulmonary Musculoskeletal gait and station Overall: normal gait 01/29/2011 None Full Exam - Pulmonary Musculoskeletal gait and station Overall: normal station 01/29/2011 None Full Exam - Pulmonary Integument inspection/palpation Overall: no rash, lesions 01/29/2011 None Full Exam - Pulmonary Neck inspection of neck Overall: normal size 01/29/2011 None Full Exam - Pulmonary Neck inspection of neck Overall: normal appearance 01/29/2011 None Full Exam - Pulmonary Respiratory auscultation Left lower lung field: crackles 01/29/2011 None Full Exam - Pulmonary Respiratory auscultation Left upper lung field: a normal exam 01/29/2011 None Full Exam - Pulmonary Respiratory auscultation Right upper lung field: a normal exam 01/29/2011 None Full Exam - Pulmonary Respiratory auscultation Right middle lung field: a normal exam 01/29/2011 None Full Exam - Pulmonary Respiratory auscultation Right lower lung field: diminished 01/29/2011 None Full Exam - Pulmonary Respiratory respiratory effort/rhythm Overall: no retractions 01/29/2011 None Full Exam - Pulmonary Respiratory respiratory effort/rhythm Overall: normal rate 01/29/2011 None Full Exam - Pulmonary Respiratory breast/ chest inspection Overall: normal shape, normal expansion 01/29/2011 None Full Exam - Pulmonary Cardiovascular auscultation of heart Overall: normal heart sounds 01/29/2011 None Full Exam - Pulmonary Cardiovascular auscultation of heart Overall: regular rate 01/29/2011 None Procedures Procedure Codes Date URINALYSIS NONAUTO W/O SCOPE CPT-4: 12500 04/05/2017 PPPS, SUBSEQ VISIT CPT -4: G0439 04/17/2016 ADMIN INFLUENZA VIRUS VAC CPT-4: G0008 02/21/2016 FLU VACC PRSV FREE INC ANTIG Formatting Model/CDA Sections, Assigned to/Tona Helm CPT-4: 68677Gthjwwm 02/21/2016 TRIAMCINOLONE ACET INJ NOS CPT-4: J3301 08/02/2015 DRAIN/INJECT JOINT/BURSA CPT-4: 39042 08/02/2015 ADMIN INFLUENZA VIRUS VAC CPT-4: G0008 03/20/2015 FLU VACC PRSV FREE INC ANTIG Formatting Model/CDA Sections, Assigned to/Tona Helm CPT-4: 58035Oofgxod 03/20/2015 FLU VACC 4 BEHZAD 3 YRS PLUS IM SNOMED CT: [id number] CPT-4: 15338 02/08/2014 ADMIN INFLUENZA VIRUS VAC CPT-4: G0008 02/08/2014 TRIAMCINOLONE ACET INJ NOS CPT-4: J3301 05/01/2013 THER/PROPH/DIAG INJ SC/IM CPT-4: 53046 05/01/2013 ADMIN INFLUENZA VIRUS VAC CPT-4: G0008 02/01/2013 FLULAVAL VACC, 3 YRS & >, IM CPT-4: Q2036 02/01/2013 ADMIN PNEUMOCOCCAL VACCINE SNOMED CT: [id number] CPT-4: G0009 02/01/2013 Pneumococcal Polysaccharide Vaccine, 23-Valent, Ad CPT-4: 30031 02/01/2013 DESTRUCT PREMALG LESION CPT-4: 19160 09/07/2012 DESTRUCT PREMALG LES 2-14 CPT-4: 68759 09/07/2012 ROUTINE VENIPUNCTURE CPT-4: 95780 07/13/2012 78441 EST. PATIENT, LEVEL IV CPT-4: 94768 06/08/2012 ROCEPHIN, PER 250 MG CPT-4: J0696 03/17/2012 TRIAMCINOLONE ACET INJ NOS CPT-4: J3301 03/17/2012 THER/PROPH/DIAG INJ SC/IM CPT-4: 36535 03/17/2012 INJ TRIGGER POINT 1/2 MUSCL CPT-4: 34687 06/24/2011 TRIAMCINOLONE ACET INJ NOS CPT-4: J3301 06/24/2011 ROUTINE VENIPUNCTURE CPT-4: 05499 01/30/2011 ROCEPHIN, PER 250 MG CPT-4: J0696 01/30/2011 THER/PROPH/DIAG INJ SC/IM CPT-4: 91542 01/30/2011 ROCEPHIN, PER 250 MG CPT-4: J0696 01/29/2011 THER/PROPH/DIAG INJ SC/IM CPT-4: 33352 01/29/2011 AIRWAY INHALATION TREATMENT CPT-4: 69213 01/29/2011 PRESCRIP TRANSMIT VIA ERX SY CPT-4: G8553 01/29/2011 Vital Signs Date Vital 03/09/2017 Blood Pressure 1: 136/64 Code : 8480-6 BMI: 28.7 Code : 04890-1 Heart Rate 1 : 68 bpm Height: 5'10" SpO2: 94% Weight: 197 lbs 8 oz 12/01/2016 Blood Pressure 1: 124/68 Code : 8480-6 BMI: 27.7 Code : 65349-0 Heart Rate 1 : 70 bpm Height: 5'10" SpO2: 94% Weight: 190 lbs 11/26/2016 Blood Pressure 1: 120/72 Code : 8480-6 Heart Rate 1: 73 bpm SpO2: 97% Weight: 190 lbs 8 oz 08/04/2016 Blood Pressure 1: 138/78 Code : 8480-6 BMI: 29.4 Code : 23273-3 Heart Rate 1 : 69 bpm Height: 5'10" SpO2: 97% Weight: 202 lbs 04/17/2016 Blood Pressure 1: 128/60 Code : 8480-6 BMI: 29.4 Code : 96666-5 Heart Rate 1 : 70 bpm Height: 5'10" SpO2: 97% Waist Measure (cm): 97 cm Weight: 202 lbs 04/07/2016 Blood Pressure 1: 132/78 Code : 8480-6 BMI: 29.0 Code : 97888-9 Heart Rate 1 : 78 bpm Height: 5'10" SpO2: 98% Weight: 199 lbs 12/04/2015 Blood Pressure 1: 120/62 Code : 8480-6 BMI: 28.4 Code : 72598-8 Heart Rate 1 : 80 bpm Height: 5'10" SpO2: 97% Weight: 195 lbs 10/29/2015 Blood Pressure 1: 108/58 Code : 8480-6 BMI: 27.8 Code : 63840-3 Heart Rate 1 : 78 bpm Height: 5'10" SpO2: 98% Weight: 191 lbs 08/02/2015 Blood Pressure 1: 148/82 Code : 8480-6 Heart Rate 1: 63 bpm Height: 5'10" SpO2: 98% Weight: 06/25/2015 Blood Pressure 1: 146/78 Code : 8480-6 Blood Pressure 1: 150/76 Code: 8480-6 BMI: 30.3 Code: 03483-0 Heart Rate 1: 89 bpm Height: 5'10" SpO2: 97% Weight: 208 lbs 03/21/2015 Blood Pressure 1: 136/80 Code : 8480-6 BMI: 29.3 Code : 10673-7 Heart Rate 1 : 72 bpm Height: 5'10" Weight: 201 lbs 02/22/2015 Blood Pressure 1: 156/78 Code : 8480-6 Blood Pressure 1: 140/80 Code: 8480-6 BMI: 29.5 Code: 89842-8 Heart Rate 1: 74 bpm Height: 5'10" SpO2: 97% Weight: 203 lbs 02/12/2015 Blood Pressure 1: 140/88 Code : 8480-6 BMI: 29.8 Code : 76497-7 Heart Rate 1 : 81 bpm Height: 5'10" SpO2: 95% Temperature: 36.8 (C) / 98.2 (F) Weight: 205 lbs 12/28/2014 Blood Pressure 1: 126/64 Code : 8480-6 BMI: 30.1 Code : 55641-7 Heart Rate 1 : 71 bpm Height: 5'10" SpO2: 96% Weight: 207 lbs 12/19/2014 Blood Pressure 1: 132/66 Code : 8480-6 BMI: 29.8 Code : 61705-0 Heart Rate 1 : 68 bpm Height: 5'10" SpO2: 95% Temperature: 36.5 (C) / 97.7 (F) Weight: 205 lbs 08/22/2014 Blood Pressure 1: 140/82 Code : 8480-6 BMI: 30.6 Code : 67104-3 Heart Rate 1 : 90 bpm Height: 5'10" SpO2: 97% Weight: 210 lbs 05/23/2014 Blood Pressure 1: 118/64 Code : 8480-6 BMI: 30.6 Code : 56129-4 Heart Rate 1 : 68 bpm Height: 5'10" Weight: 210 lbs 03/19/2014 Blood Pressure 1: 138/88 Code : 8480-6 BMI: 29.4 Code : 95933-4 Heart Rate 1 : 86 bpm Height: 5'10" Weight: 202 lbs 03/05/2014 Blood Pressure 1: 114/72 Code : 8480-6 BMI: 28.4 Code : 61676-4 Heart Rate 1 : 93 bpm Height: 5'10" Weight: 195 lbs 02/19/2014 Blood Pressure 1: 102/64 Code : 8480-6 BMI: 30.1 Code : 74212-4 Heart Rate 1 : 92 bpm Height: 5'10" SpO2: 96% Weight: 207 lbs 02/13/2014 Blood Pressure 1: 128/68 Code : 8480-6 BMI: 31.0 Code : 61566-8 Heart Rate 1 : 76 bpm Height: 5'10" SpO2: 94% Weight: 213 lbs 02/08/2014 Blood Pressure 1: 122/62 Code : 8480-6 BMI: 30.9 Code : 72220-3 Heart Rate 1 : 74 bpm Height: 5'10" Respiratory Rate: 18 bpm Weight: 212 lbs 01/18/2014 Blood Pressure 1: 130/82 Code : 8480-6 BMI: 31.9 Code : 28562-8 Heart Rate 1 : 108 bpm Height: 5'10 " Respiratory Rate: 18 bpm SpO2: 95% Temperature: 37.5 (C) / 99.5 (F ) Weight: 219 lbs 10/10/2013 Blood Pressure 1: 140/82 Code : 8480-6 BMI: 32.6 Code : 02007-6 Heart Rate 1 : 68 bpm Height: 5'10" Weight: 224 lbs 08/15/2013 Blood Pressure 1: 158/82 Code : 8480-6 BMI: 32.7 Code : 09356-9 Heart Rate 1 : 72 bpm Height: 5'10" Weight: 225 lbs 05/16/2013 Blood Pressure 1: 148/84 Code : 8480-6 BMI: 32.6 Code : 20147-3 Heart Rate 1 : 84 bpm Height: 5'10" Weight: 224 lbs 05/01/2013 Blood Pressure 1: 174/92 Code : 8480-6 BMI: 32.6 Code : 69151-3 Heart Rate 1 : 76 bpm Height: 5'10" Weight: 224 lbs 02/01/2013 Blood Pressure 1: 110/64 Code : 8480-6 BMI: 32.6 Code : 85633-3 Heart Rate 1 : 80 bpm Height: 5'10" Weight: 224 lbs 11/01/2012 Blood Pressure 1: 132/70 Code : 8480-6 BMI: 32.7 Code : 65913-7 Heart Rate 1 : 92 bpm Height: 5'10" Weight: 225 lbs 09/07/2012 Blood Pressure 1: 164/72 Code : 8480-6 Heart Rate 1: 76 bpm 09/01/2012 Blood Pressure 1: 136/78 Code : 8480-6 BMI: 32.7 Code : 19169-2 Heart Rate 1 : 92 bpm Height: 5'10" Weight: 225 lbs 07/07/2012 Blood Pressure 1: 172/90 Code : 8480-6 Heart Rate 1: 81 bpm SpO2: 98% Weight: 224 lbs 06/28/2012 Blood Pressure 1: 148/96 Code : 8480-6 Heart Rate 1: 76 bpm SpO2: 97% Temperature: 36.3 (C) / 97.4 (F) Weight: 06/08/2012 Blood Pressure 1: 152/92 Code : 8480-6 BMI: 32.5 Code : 89342-6 Heart Rate 1 : 80 bpm Height: 5'10" Weight: 223 lbs 05/25/2012 Blood Pressure 1: 178/98 Code : 8480-6 Heart Rate 1: 68 bpm Weight: 221 lbs 03/17/2012 Blood Pressure 1: 122/88 Code : 8480-6 Heart Rate 1: 94 bpm SpO2: 97% Temperature: 36.6 (C) / 97.8 (F) Weight: 225 lbs 8 oz 02/17/2012 Blood Pressure 1: 136/70 Code : 8480-6 BMI: 32.5 Code : 12594-7 Heart Rate 1 : 68 bpm Height: 5'10" Weight: 223 lbs 10/21/2011 Blood Pressure 1: 138/62 Code : 8480-6 BMI: 31.6 Code : 62137-8 Heart Rate 1 : 64 bpm Height: 5'10" Weight: 217 lbs 06/24/2011 Blood Pressure 1: 146/62 Code : 8480-6 Heart Rate 1: 82 bpm Respiratory Rate : 16 bpm Weight: 220 lbs 05/25/2011 Blood Pressure 1: 126/70 Code : 8480-6 Heart Rate 1: 80 bpm Respiratory Rate : 16 bpm Weight: 219 lbs 03/23/2011 Blood Pressure 1: 172/68 Code : 8480-6 BMI: 32.2 Code : 87309-5 Heart Rate 1 : 72 bpm Height: 5'10" Respiratory Rate: 16 bpm Weight: 221 lbs 02/03/2011 Blood Pressure 1: 137/76 Code : 8480-6 BMI: 32.2 Code : 03997-0 Heart Rate 1 : 81 bpm Height: 5'10" Weight: 221 lbs 01/30/2011 Blood Pressure 1: 106/60 Code : 8480-6 Heart Rate 1: 76 bpm Respiratory Rate : 20 bpm SpO2: 96% Weight: 220 lbs 01/29/2011 Blood Pressure 1: 84/52 Code : 8480-6 BMI: 31.7 Code : 35496-9 Heart Rate 1 : 87 bpm Height: 5'10" SpO2: 98% Weight: 218 lbs Functional Status No Functional Status data History of Present Illness Symptom Name Status Result Effective Date Notes prolonged PT (INR) Quality acute 03/09/2017 Currently 2.9 prolonged PT (INR) Onset and Resolution ongoing 03/09/2017 None prolonged PT (INR) Onset of Symptom during adulthood 03/09/2017 None prolonged PT (INR) Severity mild 03/09/2017 None prolonged PT (INR) Triggers medication use 03/09/2017 None prolonged PT (INR) Pertinent Findings Denies cough 03/09/2017 None prolonged PT (INR) Pertinent Findings Denies dyspnea 03/09/2017 None prolonged PT (INR) Pertinent Findings Denies easy bruising 03/09/2017 None hypertension Quality chronic 03/09/2017 None hypertension Onset and Resolution ongoing 03/09/2017 None hypertension Blood Pressure Values patient checking blood pressure at home - did not bring in readings 03/09/2017 -Checks occasionally hypertension Severity mild 03/09/2017 None hypertension Alleviating Factors medication 03/09/2017 None hypertension Pertinent Findings dizziness 03/09/2017 (occasional) --when he first stands up hypertension Pertinent Findings dyspnea 03/09/2017 with exertion hypertension Pertinent Findings edema 03/09/2017 None hyperlipidemia Onset and Resolution gradual in onset 03/09/2017 None hyperlipidemia Onset and Resolution ongoing 03/09/2017 None hyperlipidemia Onset of Symptom during adulthood 03/09/2017 None hyperlipidemia Alleviating Factors medication 03/09/2017 None hyperlipidemia Exacerbating Factors diet 03/09/2017 None prolonged PT (INR) Quality acute 12/01/2016 states INR was 1.[address] Morales would not do the procedure for his back. prolonged PT (INR) Onset and Resolution ongoing 12/01/2016 None prolonged PT (INR) Onset of Symptom during adulthood 12/01/2016 None prolonged PT (INR) Severity mild 12/01/2016 None prolonged PT (INR) Triggers medication use 12/01/2016 None prolonged PT (INR) Pertinent Findings Denies cough 12/01/2016 None prolonged PT (INR) Pertinent Findings Denies dyspnea 12/01/2016 None prolonged PT (INR) Pertinent Findings Denies easy bruising 12/01/2016 None prolonged PT (INR) Quality acute 11/26/2016 states INR was 1.[address] Morales would not do the procedure for his back. prolonged PT (INR) Onset and Resolution ongoing 11/26/2016 None prolonged PT (INR) Onset of Symptom during adulthood 11/26/2016 None prolonged PT (INR) Severity mild 11/26/2016 None prolonged PT (INR) Triggers medication use 11/26/2016 None prolonged PT (INR) Pertinent Findings Denies cough 11/26/2016 None prolonged PT (INR) Pertinent Findings Denies dyspnea 11/26/2016 None prolonged PT (INR) Pertinent Findings Denies easy bruising 11/26/2016 None hypertension Quality chronic 08/04/2016 None hypertension Onset and Resolution ongoing 08/04/2016 None hypertension Blood Pressure Values patient checking blood pressure at home - did not bring in readings 08/04/2016 -Checks occasionally hypertension Severity mild 08/04/2016 None hypertension Alleviating Factors medication 08/04/2016 None hypertension Pertinent Findings dizziness 08/04/2016 (occasional) --when he first stands up hypertension Pertinent Findings dyspnea 08/04/2016 with exertion hypertension Pertinent Findings edema 08/04/2016 None hyperlipidemia Onset and Resolution gradual in onset 08/04/2016 None hyperlipidemia Onset and Resolution ongoing 08/04/2016 None hyperlipidemia Onset of Symptom during adulthood 08/04/2016 None hyperlipidemia Alleviating Factors medication 08/04/2016 None hyperlipidemia Exacerbating Factors diet 08/04/2016 None cough Quality chronic 08/04/2016 None cough Quality intermittent 08/04/2016 None cough Quality productive 08/04/2016 None cough Onset and Resolution ongoing 08/04/2016 None cough Pertinent Findings Denies chills 08/04/2016 None cough Pertinent Findings Denies fever 08/04/2016 None cough Pertinent Findings sputum production 08/04/2016 None neck pain Location on both sides 08/04/2016 None neck pain Quality intermittent 08/04/2016 None neck pain Quality discomfort 08/04/2016 None neck pain Onset and Resolution gradual in onset 08/04/2016 None neck pain Onset and Resolution ongoing 08/04/2016 None cough Onset of Symptom 6+ months ago 08/04/2016 None neck pain Quality improving 08/04/2016 None neck pain Limitation on Activities does not limit activities 08/04/2016 None Annual Medicare Wellness Exam Alcohol Use does not drink any alcohol 04/17/2016 None Annual Medicare Wellness Exam Aspirin Use yes 04/17/2016 None Annual Medicare Wellness Exam Blood Glucose (self reported) desireable (below 100) 04/17/2016 None Annual Medicare Wellness Exam Blood Pressure (self reported ) low / normal (120/80) 04/17/2016 None Annual Medicare Wellness Exam Cholesterol (self reported) desireable (below 200) 04/17/2016 None Annual Medicare Wellness Exam Depression (last 6 months) almost never 04/17/2016 None Annual Medicare Wellness Exam Depression or Hopelessness almost never 04/17/2016 None Annual Medicare Wellness Exam Describe Your Health good 04/17/2016 None Annual Medicare Wellness Exam Exercise Habits does not exercise 04/17/2016 None Annual Medicare Wellness Exam Handling Stress usually shira effectively 04/17/2016 None Annual Medicare Wellness Exam Hemaglobin A-1C (self reported ) don't know 04/17/2016 None Annual Medicare Wellness Exam Hours of Sleep 8 04/17/2016 None Annual Medicare Wellness Exam Interaction with Friends yes 04/17/2016 None Annual Medicare Wellness Exam Interests & Pleasure almost all of the time 04/17/2016 None Annual Medicare Wellness Exam Life Satisfaction very satisfied 04/17/2016 None Annual Medicare Wellness Exam Motor Vehicle Safety always fastens seat belt: y 04/17/2016 None Annual Medicare Wellness Exam Motor Vehicle Safety drives after drinking: n 04/17/2016 None Annual Medicare Wellness Exam Motor Vehicle Safety rides with someone who has been drinking: n 2015 None Annual Medicare Wellness Exam Nutrition servings of fried food / high fat foods per day: 1 2015 None Annual Medicare Wellness Exam Nutrition servings of high fiber / whole grain per day: 2 04/17/2016 None Annual Medicare Wellness Exam Nutrition servings of vegetables / fruit per day: 2 04/17/2016 None Annual Medicare Wellness Exam Smoking and Tobacco Use cigar smoker 04/17/2016 None Annual Medicare Wellness Exam Social & Emotional Support always 04/17/2016 None Annual Medicare Wellness Exam Stress almost never 04/17/2016 None Annual Medicare Wellness Exam Sun Exposure protects skin when outdoors: y 04/17/2016 None hypertension Quality chronic 04/07/2016 None hypertension Onset and Resolution ongoing 04/07/2016 None hypertension Blood Pressure Values patient checking blood pressure at home - did not bring in readings 04/07/2016 -Occasionally hypertension Severity mild 04/07/2016 None hypertension Alleviating Factors medication 04/07/2016 None hypertension Pertinent Findings dizziness 04/07/2016 (occasional) --when he first stands up hypertension Pertinent Findings dyspnea 04/07/2016 with exertion hypertension Pertinent Findings edema 04/07/2016 None hyperlipidemia Onset and Resolution gradual in onset 04/07/2016 None hyperlipidemia Onset and Resolution ongoing 04/07/2016 None hyperlipidemia Onset of Symptom during adulthood 04/07/2016 None hyperlipidemia Alleviating Factors medication 04/07/2016 None hyperlipidemia Exacerbating Factors diet 04/07/2016 None low back pain Onset and Resolution ongoing 04/07/2016 None low back pain Limitation on Activities allows weight bearing activity 04/07/2016 None low back pain Alleviating Factors rest 04/07/2016 None low back pain Alleviating Factors physical therapy 04/07/2016 None low back pain Exacerbating Factors activity 04/07/2016 None cough Quality intermittent 04/07/2016 None cough Quality productive 04/07/2016 None cough Quality chronic 04/07/2016 None cough Onset and Resolution ongoing 04/07/2016 None cough Onset of Symptom 6-8 months ago 04/07/2016 None cough Pertinent Findings sputum production 04/07/2016 None cough Pertinent Findings Denies fever 04/07/2016 None cough Pertinent Findings Denies chills 04/07/2016 None neck pain Onset and Resolution ongoing 04/07/2016 None neck pain Onset and Resolution gradual in onset 04/07/2016 None neck pain Location on both sides 04/07/2016 None neck pain Quality intermittent 04/07/2016 None neck pain Quality discomfort 04/07/2016 None neck pain Limitation on Activities moderately limits activities 04/07/2016 None low back pain Onset of Symptom months ago 04/07/2016 None hypertension Quality chronic 12/04/2015 None hypertension Onset and Resolution ongoing 12/04/2015 None hypertension Blood Pressure Values patient checking blood pressure at home - did not bring in readings 12/04/2015 -Occasionally hypertension Severity mild 12/04/2015 None hypertension Alleviating Factors medication 12/04/2015 None hypertension Pertinent Findings Denies dizziness 12/04/2015 None hypertension Pertinent Findings dyspnea 12/04/2015 with exertion hypertension Pertinent Findings Denies edema 12/04/2015 None hyperlipidemia Onset and Resolution gradual in onset 12/04/2015 None hyperlipidemia Onset and Resolution ongoing 12/04/2015 None hyperlipidemia Onset of Symptom during adulthood 12/04/2015 None hyperlipidemia Alleviating Factors medication 12/04/2015 None hyperlipidemia Exacerbating Factors diet 12/04/2015 None cough Quality intermittent 12/04/2015 None cough Onset and Resolution ongoing 12/04/2015 None cough Onset of Symptom months ago 12/04/2015 None cough Pertinent Findings Denies chills 12/04/2015 None cough Pertinent Findings Denies fever 12/04/2015 None low back pain Quality improving 12/04/2015 None low back pain Onset and Resolution sudden in onset 12/04/2015 None low back pain Onset and Resolution ongoing 12/04/2015 None low back pain Onset of Symptom 3 months ago 12/04/2015 None low back pain Limitation on Activities allows weight bearing activity 12/04/2015 None low back pain Alleviating Factors rest 12/04/2015 None low back pain Alleviating Factors physical therapy 12/04/2015 None low back pain Exacerbating Factors activity 12/04/2015 None hypertension Quality chronic 10/29/2015 None hypertension Onset and Resolution ongoing 10/29/2015 None hypertension Blood Pressure Values patient checking blood pressure at home - did not bring in readings 10/29/2015 -Occasionally hypertension Severity mild 10/29/2015 None hypertension Alleviating Factors medication 10/29/2015 None hypertension Pertinent Findings Denies dizziness 10/29/2015 None hypertension Pertinent Findings dyspnea 10/29/2015 with exertion hypertension Pertinent Findings Denies edema 10/29/2015 None hyperlipidemia Onset and Resolution ongoing 10/29/2015 None hyperlipidemia Alleviating Factors medication 10/29/2015 None cough Quality intermittent 10/29/2015 None cough Onset and Resolution ongoing 10/29/2015 None cough Pertinent Findings Denies chills 10/29/2015 None cough Pertinent Findings Denies fever 10/29/2015 None hyperlipidemia Onset and Resolution gradual in onset 10/29/2015 None hyperlipidemia Onset of Symptom during adulthood 10/29/2015 None hyperlipidemia Exacerbating Factors diet 10/29/2015 None low back pain Onset and Resolution sudden in onset 10/29/2015 None low back pain Onset and Resolution ongoing 10/29/2015 None low back pain Onset of Symptom 3 months ago 10/29/2015 None low back pain Limitation on Activities allows weight bearing activity 10/29/2015 None low back pain Alleviating Factors rest 10/29/2015 None low back pain Exacerbating Factors activity 10/29/2015 None cough Onset of Symptom months ago 10/29/2015 None low back pain Alleviating Factors physical therapy 10/29/2015 None low back pain Mechanism of injury fall from height 10/29/2015 None low back pain Quality improving 10/29/2015 None back pain Quality acute 08/02/2015 None back pain Quality constant 08/02/2015 None back pain Quality worsening 08/02/2015 None back pain Onset and Resolution sudden in onset 08/02/2015 None back pain Onset and Resolution acute 08/02/2015 None back pain Onset of Symptom 4 days ago 08/02/2015 None back pain Limitation on Activities is incapacitating 08/02/2015 None back pain Frequency of Episodes constant 08/02/2015 None back pain Mechanism of injury fall from height 08/02/2015 None hypertension Quality chronic 06/25/2015 None hypertension Onset and Resolution ongoing 06/25/2015 None hypertension Severity mild 06/25/2015 None hypertension Pertinent Findings Denies dizziness 06/25/2015 None hypertension Pertinent Findings dyspnea 06/25/2015 -with exertion hypertension Pertinent Findings Denies edema 06/25/2015 None cough Quality intermittent 06/25/2015 None cough Quality productive 06/25/2015 yellowish sputum cough Onset and Resolution ongoing 06/25/2015 None cough Onset of Symptom 6 months ago 06/25/2015 None cough Pertinent Findings Denies chills 06/25/2015 None cough Pertinent Findings Denies fever 06/25/2015 None hypertension Blood Pressure Values patient checking blood pressure at home - did not bring in readings 06/25/2015 None hypertension Alleviating Factors medication 06/25/2015 None hyperlipidemia Onset and Resolution ongoing 06/25/2015 None hyperlipidemia Alleviating Factors medication 06/25/2015 None hypertension Quality chronic 03/21/2015 None hypertension Onset and Resolution ongoing 03/21/2015 None hypertension Blood Pressure Values patient checking blood pressure at home - did not bring in readings 03/21/2015 None hypertension Blood Pressure Values pt checking blood pressure - see scanned document 03/21/2015 None hypertension Severity mild 03/21/2015 None hypertension Pertinent Findings Denies dizziness 03/21/2015 None hypertension Pertinent Findings Denies dyspnea 03/21/2015 sometimes hypertension Pertinent Findings Denies edema 03/21/2015 None cough Location in the throat 03/21/2015 None cough Quality productive 03/21/2015 None cough Onset and Resolution ongoing 03/21/2015 None cough Frequency of Episodes daily 03/21/2015 None cough Pertinent Findings Denies chest discomfort 03/21/2015 None cough Pertinent Findings Denies dyspnea 03/21/2015 None cough Pertinent Findings Denies fever 03/21/2015 None cough Location in the lung 02/22/2015 None cough Location in the throat 02/22/2015 None cough Quality constant 02/22/2015 None cough Quality productive 02/22/2015 yellowish/white cough Onset of Symptom 1 months ago 02/22/2015 None cough Limitation on Activities moderately limits activities 02/22/2015 None cough Length of Episodes 3-4 days 02/22/2015 None cough Significant Medical Conditions cardiac disease 02/22/2015 None cough Triggers post nasal drip 02/22/2015 None cough Pertinent Findings chest discomfort 02/22/2015 None cough Pertinent Findings dyspnea 02/22/2015 upon exertion cough Pertinent Findings Denies fever 02/22/2015 None cough Onset of Symptom 1 months ago 02/12/2015 None cough Location in the lung 02/12/2015 None cough Location in the throat 02/12/2015 None cough Quality constant 02/12/2015 None cough Quality productive 02/12/2015 yellowish/white cough Triggers post nasal drip 02/12/2015 None cough Pertinent Findings chest discomfort 02/12/2015 None cough Pertinent Findings Denies fever 02/12/2015 None cough Pertinent Findings dyspnea 02/12/2015 upon exertion cough Significant Medical Conditions cardiac disease 02/12/2015 None cough Limitation on Activities moderately limits activities 02/12/2015 None cough Length of Episodes 3-4 days 02/12/2015 None hypertension Quality chronic 12/28/2014 None hypertension Onset and Resolution ongoing 12/28/2014 None hypertension Blood Pressure Values patient checking blood pressure at home - did not bring in readings 12/28/2014 None hypertension Blood Pressure Values pt checking blood pressure - see scanned document 12/28/2014 None hypertension Severity mild 12/28/2014 None hypertension Pertinent Findings Denies dizziness 12/28/2014 None hypertension Pertinent Findings dyspnea 12/28/2014 sometimes hypertension Pertinent Findings Denies edema 12/28/2014 None cough Onset of Symptom 2 months ago 12/28/2014 None cough Frequency of Episodes daily 12/28/2014 None cough Pertinent Findings dyspnea 12/28/2014 None cough Pertinent Findings Denies fever 12/28/2014 None cough Pertinent Findings sputum production 12/28/2014 clear lately, but a month ago was yellow nasal discharge Onset of Symptom 1-2 months ago 12/28/2014 clear nasal discharge nasal discharge Pertinent Findings cough 12/28/2014 None nasal discharge Pertinent Findings dyspnea 12/28/2014 None nasal discharge Pertinent Findings Denies fever 12/28/2014 None knee pain Location on the left 12/28/2014 None knee pain Quality dull pain 12/28/2014 None knee pain Quality sharp pain 12/28/2014 None knee pain Onset and Resolution sudden in onset 12/28/2014 None knee pain Onset of Symptom 1 days ago 12/28/2014 None knee pain Limitation on Activities moderately limits activities 12/28/2014 None knee pain Mechanism of injury twisting 12/28/2014 None knee pain Pertinent Findings pain with movement 12/28/2014 None knee pain Pertinent Findings redness 12/28/2014 None knee pain Pertinent Findings stiffness 12/28/2014 None knee pain Pertinent Findings swelling 12/28/2014 None hypertension Quality chronic 12/19/2014 None hypertension Onset and Resolution ongoing 12/19/2014 None hypertension Blood Pressure Values patient checking blood pressure at home - did not bring in readings 12/19/2014 None hypertension Blood Pressure Values pt checking blood pressure - see scanned document 12/19/2014 None hypertension Severity mild 12/19/2014 None hypertension Pertinent Findings Denies dizziness 12/19/2014 None hypertension Pertinent Findings dyspnea 12/19/2014 sometimes hypertension Pertinent Findings Denies edema 12/19/2014 None cough Onset of Symptom 2 months ago 12/19/2014 None cough Frequency of Episodes daily 12/19/2014 None cough Pertinent Findings dyspnea 12/19/2014 None cough Pertinent Findings Denies fever 12/19/2014 None cough Pertinent Findings sputum production 12/19/2014 clear lately, but a month ago was yellow nasal discharge Onset of Symptom 1-2 months ago 12/19/2014 clear nasal discharge nasal discharge Pertinent Findings Denies fever 12/19/2014 None nasal discharge Pertinent Findings cough 12/19/2014 None nasal discharge Pertinent Findings dyspnea 12/19/2014 None hypertension Quality chronic 08/22/2014 None hypertension Onset and Resolution ongoing 08/22/2014 None hypertension Blood Pressure Values pt checking blood pressure - see scanned document 08/22/2014 None hypertension Severity mild 08/22/2014 None hypertension Pertinent Findings Denies dizziness 08/22/2014 None hypertension Pertinent Findings dyspnea 08/22/2014 sometimes hypertension Pertinent Findings Denies edema 08/22/2014 None hypertension Blood Pressure Values patient checking blood pressure at home - did not bring in readings 08/22/2014 None hypertension Quality chronic 05/23/2014 None hypertension Onset and Resolution ongoing 05/23/2014 None hypertension Blood Pressure Values pt checking blood pressure - see scanned document 05/23/2014 None hypertension Severity mild 05/23/2014 None hypertension Pertinent Findings Denies dizziness 05/23/2014 None hypertension Pertinent Findings dyspnea 05/23/2014 sometimes hypertension Pertinent Findings Denies edema 05/23/2014 None hypertension Blood Pressure Values patient checking blood pressure at home - did not bring in readings 05/23/2014 None hypertension Quality chronic 03/19/2014 None hypertension Onset and Resolution ongoing 03/19/2014 None hypertension Blood Pressure Values pt checking blood pressure - see scanned document 03/19/2014 None hypertension Severity mild 03/19/2014 None hypertension Pertinent Findings Denies dizziness 03/19/2014 None hypertension Pertinent Findings dyspnea 03/19/2014 sometimes hypertension Pertinent Findings Denies edema 03/19/2014 None abdominal pain Location in the RLQ 03/05/2014 None abdominal pain Quality burning 03/05/2014 None abdominal pain Quality constant 03/05/2014 None abdominal pain Onset of Symptom _ weeks ago 03/05/2014 None abdominal pain Pertinent Findings Denies abdominal distension 03/05/2014 None abdominal pain Pertinent Findings bloating 03/05/2014 None abdominal pain Pertinent Findings Denies dyspnea 03/05/2014 None abdominal pain Pertinent Findings Denies fever 03/05/2014 None abdominal pain Pertinent Findings Denies increased appetite 03/05/2014 None abdominal pain Pertinent Findings Denies melena 03/05/2014 None abdominal pain Location in the RLQ 02/19/2014 None abdominal pain Quality burning 02/19/2014 None abdominal pain Quality constant 02/19/2014 None abdominal pain Pertinent Findings Denies abdominal distension 02/19/2014 None abdominal pain Pertinent Findings bloating 02/19/2014 None abdominal pain Pertinent Findings Denies dyspnea 02/19/2014 None abdominal pain Pertinent Findings Denies fever 02/19/2014 None abdominal pain Pertinent Findings Denies increased appetite 02/19/2014 None abdominal pain Pertinent Findings Denies melena 02/19/2014 None abdominal pain Onset of Symptom _ weeks ago 02/19/2014 None earache Location right ear 02/13/2014 None earache Quality acute 02/13/2014 None earache Onset of Symptom 2 days ago 02/13/2014 None earache Alleviating Factors medication 02/13/2014 acetasol HC used drops twice yesterday vertigo Quality intermittent 02/13/2014 None vertigo Pertinent Findings dizziness 02/13/2014 None vertigo Pertinent Findings Denies syncope 02/13/2014 None vertigo Onset of Symptom 2 days ago 02/13/2014 None earache Severity mild 02/13/2014 None earache Frequency of Episodes increasing 02/13/2014 None abdominal pain Location in the RLQ 02/08/2014 None abdominal pain Onset of Symptom 2 days ago 02/08/2014 None abdominal pain Pertinent Findings Denies abdominal distension 02/08/2014 None abdominal pain Pertinent Findings Denies bloating 02/08/2014 None abdominal pain Pertinent Findings Denies dyspnea 02/08/2014 None abdominal pain Pertinent Findings Denies fever 02/08/2014 None abdominal pain Pertinent Findings Denies increased appetite 02/08/2014 None abdominal pain Pertinent Findings Denies melena 02/08/2014 None abdominal pain Onset and Resolution resolved 02/08/2014 None hypertension Quality chronic 02/08/2014 None hypertension Onset and Resolution ongoing 02/08/2014 None hypertension Blood Pressure Values pt checking blood pressure - see scanned document 02/08/2014 None hypertension Severity mild 02/08/2014 None hypertension Pertinent Findings Denies dizziness 02/08/2014 None hypertension Pertinent Findings Denies dyspnea 02/08/2014 None hypertension Pertinent Findings Denies edema 02/08/2014 None abdominal pain Location in the RLQ 01/18/2014 None abdominal pain Quality burning 01/18/2014 None abdominal pain Quality constant 01/18/2014 None abdominal pain Onset of Symptom 2 days ago 01/18/2014 None abdominal pain Pertinent Findings Denies abdominal distension 01/18/2014 None abdominal pain Pertinent Findings bloating 01/18/2014 took gas x and has belched and getting better abdominal pain Pertinent Findings dyspnea 01/18/2014 None abdominal pain Pertinent Findings Denies fever 01/18/2014 None abdominal pain Pertinent Findings Denies increased appetite 01/18/2014 None abdominal pain Pertinent Findings Denies melena 01/18/2014 None hypertension Blood Pressure Values pt checking blood pressure - see scanned document 10/10/2013 None hypertension Pertinent Findings Denies dizziness 10/10/2013 None hypertension Pertinent Findings Denies dyspnea 10/10/2013 None hypertension Pertinent Findings Denies edema 10/10/2013 None hypertension Quality chronic 10/10/2013 None hypertension Onset and Resolution ongoing 10/10/2013 None hypertension Severity mild 10/10/2013 None hypertension Quality acute 08/15/2013 None hypertension Onset and Resolution ongoing 08/15/2013 None hypertension Blood Pressure Values pt checking blood pressure - see scanned document 08/15/2013 None hypertension Triggers no known associated factors 08/15/2013 None hypertension Alleviating Factors medication 08/15/2013 None hypertension Exacerbating Factors change in dietary habits 08/15/2013 None hypertension Severity mild 08/15/2013 None hypertension Pertinent Findings Denies anxiety 08/15/2013 None hypertension Pertinent Findings Denies decreased energy 08/15/2013 None hypertension Quality chronic 05/16/2013 None hypertension Onset and Resolution ongoing 05/16/2013 None hypertension Blood Pressure Values pt checking blood pressure - see scanned document 05/16/2013 None cough Onset and Resolution resolved 05/16/2013 None hypertension Triggers stress 05/16/2013 None hypertension Alleviating Factors medication 05/16/2013 None hypertension Exacerbating Factors stress 05/16/2013 None hypertension Quality chronic 05/01/2013 None hypertension Onset and Resolution ongoing 05/01/2013 None hypertension Blood Pressure Values pt checking blood pressure - see scanned document 05/01/2013 None hypertension Alleviating Factors medication 05/01/2013 None hypertension Pertinent Findings Denies anxiety 05/01/2013 None hypertension Pertinent Findings Denies confusion 05/01/2013 None hypertension Pertinent Findings Denies dizziness 05/01/2013 None hypertension Pertinent Findings Denies dyspnea 05/01/2013 None hypertension Severity mild 05/01/2013 None hypertension Quality chronic 02/01/2013 None hypertension Onset and Resolution ongoing 02/01/2013 None hypertension Blood Pressure Values pt checking blood pressure - see scanned document 02/01/2013 None hypertension Alleviating Factors medication 02/01/2013 None hypertension Pertinent Findings Denies anxiety 02/01/2013 None hypertension Pertinent Findings Denies decreased energy 02/01/2013 None hypertension Pertinent Findings Denies dizziness 02/01/2013 None hypertension Severity mild 02/01/2013 None hypertension Quality chronic 11/01/2012 None hypertension Onset and Resolution ongoing 11/01/2012 None hypertension Blood Pressure Values pt checking blood pressure - see scanned document 11/01/2012 None hypertension Alleviating Factors medication 11/01/2012 None changing lesion Location-Major on the arms 09/07/2012 left arm, left hand and right arm hypertension Quality chronic 09/01/2012 None hypertension Onset and Resolution ongoing 09/01/2012 None hypertension Blood Pressure Values pt checking blood pressure - see scanned document 09/01/2012 None hypertension Severity mild 09/01/2012 None hypertension Triggers stress 09/01/2012 None hypertension Alleviating Factors medication 09/01/2012 None hypertension Exacerbating Factors stress 09/01/2012 None cough Quality improving 07/07/2012 None hypertension Quality chronic 07/07/2012 None hypertension Blood Pressure Values pt checking blood pressure - see scanned document 07/07/2012 None hypertension Onset and Resolution ongoing 07/07/2012 did not take blood pressure medication this morning cough Onset of Symptom 2+ weeks ago 07/07/2012 None cough Limitation on Activities does not limit activities 07/07/2012 None cough Frequency of Episodes decreasing 07/07/2012 None cough Pertinent Findings Denies chills 07/07/2012 None cough Pertinent Findings Denies chest discomfort 07/07/2012 None cough Pertinent Findings Denies dyspnea 07/07/2012 None cough Pertinent Findings ill contacts 07/07/2012 None hypertension Severity mild 07/07/2012 None hypertension Pertinent Findings Denies anxiety 07/07/2012 None hypertension Pertinent Findings Denies confusion 07/07/2012 None hypertension Pertinent Findings Denies dyspnea 07/07/2012 None hypertension Pertinent Findings Denies dizziness 07/07/2012 None hypertension Pertinent Findings Denies decreased energy 07/07/2012 None cough Quality productive 06/28/2012 None cough Quality worsening 06/28/2012 None cough Location in the lung 06/28/2012 None cough Onset and Resolution ongoing 06/28/2012 None cough Onset of Symptom 1 weeks ago 06/28/2012 None cough Pertinent Findings chest discomfort 06/28/2012 None cough Pertinent Findings Denies nasal congestion 06/28/2012 None cough Pertinent Findings sputum production 06/28/2012 None sore throat Location on both sides 06/28/2012 None sore throat Quality aching 06/28/2012 None sore throat Pertinent Findings ill contacts 06/28/2012 was sick last week sore throat Pertinent Findings Denies nasal congestion 06/28/2012 None sore throat Pertinent Findings cough 06/28/2012 None hypertension Onset and Resolution ongoing 06/08/2012 None hypertension Blood Pressure Values pt checking blood pressure - see scanned document 06/08/2012 None hypertension Frequency of Episodes daily 06/08/2012 None hypertension Alleviating Factors medication 06/08/2012 None hypertension Quality chronic 06/08/2012 None hypertension Pertinent Findings Denies anxiety 06/08/2012 None hypertension Pertinent Findings Denies confusion 06/08/2012 None hypertension Pertinent Findings Denies nausea 06/08/2012 None hypertension Pertinent Findings Denies muscle weakness 06/08/2012 None hypertension Pertinent Findings Denies lethargy 06/08/2012 None hypertension Pertinent Findings obesity 06/08/2012 None hypertension Exacerbating Factors stress 06/08/2012 None hypertension Significant Family History heart disease 06/08/2012 None hypertension Significant Medical Conditions cardiac disease 06/08/2012 None hypertension Quality chronic 05/25/2012 None hypertension Onset and Resolution ongoing 05/25/2012 None constipation Quality chronic 05/25/2012 None constipation Onset and Resolution ongoing 05/25/2012 None constipation Severity moderate 05/25/2012 states he ran out of stool softeners. Last BM this morning. constipation Frequency of Episodes unchanged 05/25/2012 None constipation Alleviating Factors diet changes 05/25/2012 states he gets constipated when he eats alot of sandwiches constipation Pertinent Findings bloating 05/25/2012 None constipation Pertinent Findings Denies decreased energy level 05/25/2012 None constipation Pertinent Findings Denies depressed mood 05/25/2012 None constipation Pertinent Findings Denies dysphagia 05/25/2012 None constipation Pertinent Findings Denies nausea 05/25/2012 None hypertension Onset of Symptom during adulthood 05/25/2012 None hypertension Blood Pressure Values not checking blood pressure at home 05/25/2012 None hypertension Severity not consistently severe symptoms, the symptoms fluctuate from no symptoms to anxiety and headaches 05/25/2012 None hypertension Frequency of Episodes unchanged 05/25/2012 None hypertension Triggers no known associated factors 05/25/2012 None hypertension Alleviating Factors medication 05/25/2012 None hypertension Pertinent Findings Denies decreased energy 05/25/2012 None hypertension Pertinent Findings Denies confusion 05/25/2012 None hypertension Pertinent Findings Denies dyspnea 05/25/2012 None hypertension Pertinent Findings Denies edema 05/25/2012 None hypertension Pertinent Findings Denies nausea 05/25/2012 None hypertension Pertinent Findings Denies palpitations 05/25/2012 None hypertension Pertinent Findings Denies tachycardia 05/25/2012 None hypertension Pertinent Findings Denies vomiting 05/25/2012 None cough Location in the lung 03/17/2012 None cough Quality acute None cough Onset and Resolution ongoing 03/17/2012 None cough Onset of Symptom 1 months ago 03/17/2012 None cough Pertinent Findings chest discomfort 03/17/2012 None cough Pertinent Findings hoarseness 03/17/2012 None cough Pertinent Findings nasal congestion 03/17/2012 None cough Pertinent Findings post nasal drip 03/17/2012 None cough Frequency of Episodes unchanged 03/17/2012 None cough Triggers ill contacts 03/17/2012 None cough Pertinent Findings sputum production 03/17/2012 describes it as slimey-che but not really coughing up much. hypertension Quality stable 02/17/2012 None hypertension Onset and Resolution ongoing 02/17/2012 None hyperlipidemia Onset and Resolution ongoing 02/17/2012 None hypertension Quality chronic 02/17/2012 None hypertension Blood Pressure Values patient checking blood pressure at home - did not bring in readings 02/17/2012 states that his pressure at hime is not as good as in clinic today. hypertension Severity mild 02/17/2012 None hypertension Triggers stress 02/17/2012 None hypertension Alleviating Factors medication 02/17/2012 None hypertension Exacerbating Factors stress 02/17/2012 None hyperlipidemia Quality chronic 02/17/2012 None hyperlipidemia Severity moderate 02/17/2012 None hypertension Quality chronic 10/21/2011 None hypertension Onset and Resolution ongoing 10/21/2011 None cough Location in the throat 10/21/2011 None cough Quality hacking 10/21/2011 None cough Quality productive 10/21/2011 None cough Onset and Resolution ongoing 10/21/2011 None cough Onset of Symptom 2 months ago 10/21/2011 None cough Triggers no known associated factors 10/21/2011 None constipation Onset and Resolution ongoing 10/21/2011 None constipation Severity moderate 10/21/2011 None constipation Significant Medications over the counter preparations 10/21/2011 None constipation Triggers no known associated factors 10/21/2011 None constipation Alleviating Factors laxatives 10/21/2011 None constipation Pertinent Findings Denies chills 10/21/2011 None constipation Pertinent Findings Denies dysphagia 10/21/2011 None cough Pertinent Findings Denies dyspnea 10/21/2011 None cough Pertinent Findings hoarseness 10/21/2011 None constipation Quality chronic 10/21/2011 None constipation Quality hard 10/21/2011 None constipation Quality worsening 10/21/2011 None constipation Pertinent Findings bloating 10/21/2011 states uses metamucil every am but not working any longer hypertension Blood Pressure Values patient checking blood pressure at home - did not bring in readings 10/21/2011 states that his pressure at hime is not as good as in clinic today. hypertension Severity mild 10/21/2011 None hypertension Triggers stress 10/21/2011 None hypertension Alleviating Factors medication 10/21/2011 None hypertension Exacerbating Factors stress 10/21/2011 None cough Location in the lung 10/21/2011 None cough Onset and Resolution gradual in onset 10/21/2011 None cough Significant Medical Conditions cardiac disease 10/21/2011 None hypertension Pertinent Findings Denies anxiety 10/21/2011 None hypertension Pertinent Findings Denies dizziness 10/21/2011 None hypertension Pertinent Findings Denies decreased energy 10/21/2011 None hypertension Significant Medical Conditions cardiac disease 10/21/2011 None hypertension Onset of Symptom during adulthood 10/21/2011 None cough Limitation on Activities does not limit activities 10/21/2011 None back pain Location lumbar-sacral spine 06/24/2011 None back pain Quality acute 06/24/2011 None back pain Quality sharp 06/24/2011 None back pain Onset and Resolution sudden in onset 06/24/2011 None back pain Onset of Symptom 1 days ago 06/24/2011 None back pain Limitation on Activities is incapacitating 06/24/2011 None back pain Severity moderate 06/24/2011 None back pain Pertinent Findings Denies cervical disc herniation 06/24/2011 None back pain Pertinent Findings Denies chills 06/24/2011 None back pain Pertinent Findings Denies limited range of neck motion 06/24/2011 None back pain Pertinent Findings Denies extremity numbness 06/24/2011 None back pain Pertinent Findings Denies extremity weakness 06/24/2011 None back pain Pertinent Findings muscle strain 06/24/2011 None back pain Pertinent Findings osteoarthritis 06/24/2011 None back pain Pertinent Findings sleep disturbance 06/24/2011 None back pain Radiating does not radiate 06/24/2011 None back pain Initial treatment heat 06/24/2011 None back pain Initial treatment ice 06/24/2011 None back pain Triggers bending 06/24/2011 None back pain Triggers lifting 06/24/2011 None back pain Triggers twisting 06/24/2011 None back pain Triggers activity 06/24/2011 None hypertension Quality chronic 05/25/2011 None hypertension Onset and Resolution ongoing 05/25/2011 None hyperlipidemia Quality chronic 05/25/2011 None hyperlipidemia Onset and Resolution ongoing 05/25/2011 None hypertension Blood Pressure Values patient checking blood pressure at home - did not bring in readings 05/25/2011 states that his pressure at hime is not as good as in clinic today. hypertension Severity mild 05/25/2011 None hypertension Triggers stress 05/25/2011 None hypertension Alleviating Factors medication 05/25/2011 None hypertension Exacerbating Factors stress 05/25/2011 None hyperlipidemia Severity moderate 05/25/2011 None fatigue Onset of Symptom 6 weeks ago 03/23/2011 None blood pressure followup Quality chronic 03/23/2011 None blood pressure followup Onset of Symptom during adulthood 03/23/2011 None blood pressure followup Blood Pressure Values Stage 0:SBP 130-139 mmHg / DBP 85-89 mmHg 03/23/2011 None blood pressure followup Severity mild 03/23/2011 None blood pressure followup Triggers stress 03/23/2011 None blood pressure followup Alleviating Factors medication 03/23/2011 None blood pressure followup Pertinent Findings Denies decreased energy 03/23/2011 None blood pressure followup Pertinent Findings Denies dizziness 03/23/2011 None blood pressure followup Pertinent Findings obesity 03/23/2011 None fatigue Quality chronic 03/23/2011 None fatigue Limitation on Activities does not limit activities 03/23/2011 None fatigue Significant Medical Conditions cardiac disease 03/23/2011 None blood pressure followup Onset and Resolution ongoing 03/23/2011 None cough Frequency of Episodes unchanged 02/03/2011 --Improved cough Location in the lung 02/03/2011 None cough Quality hacking 02/03/2011 --Resolved cough Quality interrupts sleep 02/03/2011 --Resolved cough Quality productive 02/03/2011 None cough Onset and Resolution gradual in onset 02/03/2011 None cough Timing of Episodes at night 02/03/2011 None cough Significant Medical Conditions cardiac disease 02/03/2011 None fatigue Quality acute 02/03/2011 None fatigue Onset and Resolution gradual in onset 02/03/2011 None shortness of breath Quality acute 02/03/2011 --Resolved shortness of breath Quality chest tightness 02/03/2011 --Resolved cough Location in the lung 01/30/2011 None cough Quality hacking 01/30/2011 None cough Quality interrupts sleep 01/30/2011 None cough Quality productive 01/30/2011 None cough Onset and Resolution gradual in onset 01/30/2011 None cough Frequency of Episodes unchanged 01/30/2011 --Improved cough Timing of Episodes at night 01/30/2011 None cough Significant Medical Conditions cardiac disease 01/30/2011 None fatigue Quality acute 01/30/2011 None fatigue Onset and Resolution gradual in onset 01/30/2011 None shortness of breath Quality acute 01/30/2011 None shortness of breath Quality chest tightness 01/30/2011 --Resolved cough Location in the lung 01/29/2011 None cough Quality hacking 01/29/2011 None cough Quality interrupts sleep 01/29/2011 None cough Quality productive 01/29/2011 None fatigue Quality acute 01/29/2011 None sinus congestion Quality acute 01/29/2011 None sinus congestion Quality pressure 01/29/2011 None shortness of breath Quality acute 01/29/2011 None shortness of breath Quality chest tightness 01/29/2011 None shortness of breath Onset of Symptom 2 weeks ago 01/29/2011 None sinus congestion Onset and Resolution ongoing 01/29/2011 None sinus congestion Onset of Symptom 2 weeks ago 01/29/2011 None sinus congestion Severity moderate 01/29/2011 None fatigue Onset and Resolution gradual in onset 01/29/2011 None fatigue Onset of Symptom 2 weeks ago 01/29/2011 None cough Onset and Resolution gradual in onset 01/29/2011 None cough Onset of Symptom 2 weeks ago 01/29/2011 None cough Frequency of Episodes unchanged 01/29/2011 None cough Timing of Episodes at night 01/29/2011 None cough Significant Medical Conditions cardiac disease 01/29/2011 None Advance Directives No Advance Directive data Encounters Encounter Performer Location Codes Date ([id number]) 01083 EST. PATIENT, LEVEL IV Diagnosis: Essential (primary) hypertension[ICD10: I10] Diagnosis: Mixed hyperlipidemia[ICD10: E78.2] [facility] CPT-4: 40035 03/09/2017 ([id number]) 71930 EST. PATIENT, LEVEL IV Diagnosis: Essential (primary) hypertension[ICD10: I10] Diagnosis: Mixed hyperlipidemia[ICD10: E78.2] Diagnosis: Low back pain[ICD10: M54.5] [facility] CPT- 4: 86547 12/01/2016 ([id number]) 74335 EST. 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 PATIENT, LEVEL IV Diagnosis: Essential (primary) hypertension[ICD10: I10] Diagnosis: Mixed hyperlipidemia[ICD10: E78.2] Diagnosis: Cough[ICD10: R05] Verna Ferro MD, [facility] CPT-4: 29711 08/04/2016 ([id number]) 06969 EST. PATIENT, LEVEL IV Diagnosis: Essential (primary) hypertension[ICD10: I10] Diagnosis: Mixed hyperlipidemia[ICD10: E78.2] Diagnosis: Low back pain[ICD10: M54.5] Diagnosis: Cervicalgia[ICD10: M54.2] Verna Ferro MD, [facility] CPT-4: 09227 04/07/2016 ([id number]) 08696 EST. PATIENT, LEVEL III Diagnosis: Essential (primary) hypertension[ICD10: I10] Diagnosis: Mixed hyperlipidemia[ICD10: E78.2] Verna Ferro MD, [facility] CPT-4: 25123 12/04/2015 ([id number]) 33141 EST. 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 PATIENT, LEVEL IV Diagnosis: Low back pain[ICD10: M54.5] Maria E Ferro MD, [facility] CPT-4 : 83325 08/02/2015 ([id number]) 68258 EST. 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 PATIENT, LEVEL IV Diagnosis: Essential (primary) hypertension[ICD10: I10] Diagnosis: Mixed hyperlipidemia[ICD10: E78.2] Verna Ferro MD [facility] CPT-4: 52456 03/21/2015 ([id number]) 74881 EST. PATIENT, LEVEL III Diagnosis: Essential (primary) hypertension[ICD10: I10] Diagnosis: Pneumonia, unspecified organism[ICD10: J18.9] Diagnosis: Pain in left knee[ICD10: M25.562] Nydia Ferro MD [facility] CPT-4: 07033 02/22/2015 ([id number]) 04922 EST. PATIENT, LEVEL III Diagnosis: Pneumonia, unspecified organism[ICD10: J18.9] Verna Ferro MD [facility] CPT-4: 22045 02/12/2015 ([id number]) 77771 EST. PATIENT, LEVEL III Diagnosis: ESSENTIAL HYPERTENSION[ICD9: 401.9] Diagnosis: Left knee pain[ICD9: 719.46] Nydia Ferro MD [facility] CPT-4: 01841 12/28/2014 ([id number]) 73828 EST. PATIENT, LEVEL IV Diagnosis: HYPERLIPIDEMIA[ICD9: 272.4] Diagnosis: ESSENTIAL HYPERTENSION[ICD9: 401.9] Diagnosis: H/O long-term (current) use of anticoagulants[ICD9: V58.61] Verna Ferro MD [facility] CPT-4: 13229 12/19/2014 ([id number]) 28138 EST. PATIENT, LEVEL IV Diagnosis: ESSENTIAL HYPERTENSION[ICD9: 401.9] Diagnosis: HYPERLIPIDEMIA[ICD9: 272.4] Diagnosis: H/O long-term (current) use of anticoagulants[ICD9: V58.61] Verna Ferro MD [facility] CPT-4: 41204 08/22/2014 ([id number]) 70683 EST. PATIENT, LEVEL IV Diagnosis: ESSENTIAL HYPERTENSION[ICD9: 401.9] Diagnosis: HYPERLIPIDEMIA[ICD9: 272.4] Verna Ferro MD [facility] CPT- 4: 26967 05/23/2014 ([id number]) 89030 EST. PATIENT, LEVEL III Diagnosis: HYPERLIPIDEMIA[ICD9: 272.4] Diagnosis: ESSENTIAL HYPERTENSION[ICD9: 401.9] Verna Ferro MD [facility] CPT-4: 79933 03/19/2014 ([id number]) 59686 EST. PATIENT, LEVEL III Diagnosis: Diarrhea[ICD9: 787.91] SHALOM Leos MD CPT-4: 65387 03/05/2014 ([id number]) 20974 EST. PATIENT, LEVEL III Diagnosis: Abdominal pain[ICD9: 789.00] Diagnosis: Abdominal abscess[ICD9: 567.22] SHALOM Leos MD CPT- 4: 83840 02/19/2014 ([id number]) 31495 EST. PATIENT, LEVEL III Diagnosis: Cellulitis of oral soft tissues[ICD9: 528.3] SHALOM Leos MD CPT-4: 87458 02/13/2014 ([id number]) 76273 EST. PATIENT, LEVEL III Diagnosis: ESSENTIAL HYPERTENSION[ICD9: 401.9] Diagnosis: Abdominal pain[ICD9: 789.00] Verna Ferro MD [facility] CPT- 4: 72264 02/08/2014 ([id number]) Patient admitted to the hospital from clinic (NO CHARGE) Diagnosis: Abdominal pain[ICD9: 789.00] Diagnosis: Right lower quadrant abdominal pain[ICD9: 789.03] Diagnosis: Rebound tenderness[ICD9: 789.60] Diagnosis: FEVER NOS[ICD9: 780.60] Diagnosis: Nausea alone[ICD9: 787.02] Diagnosis: ESSENTIAL HYPERTENSION[ICD9: 401.9] Diagnosis: Renal insufficiency[ICD9: 593.9] Diagnosis: Dehydration[ICD9: 276.51] Verna Ferro MD [facility] CPT-4: 25371L 01/18/2014 ([id number]) 02152 EST. PATIENT, LEVEL IV Diagnosis: ESSENTIAL HYPERTENSION[SNOMED: 67627248] Diagnosis: HYPERLIPIDEMIA[ICD9: 272.4] Diagnosis: Nodule of tongue[ICD9: 784.2] Verna Ferro MD [facility] CPT- 4: 60134 10/10/2013 ([id number]) 57417 EST. PATIENT, LEVEL IV Diagnosis: ESSENTIAL HYPERTENSION[SNOMED: 07414920] Diagnosis: HYPERLIPIDEMIA[ICD9: 272.4] Verna Ferro MD [facility] CPT- 4: 10064 08/15/2013 ([id number]) 91268 EST. PATIENT, LEVEL III Diagnosis: COUGH[ICD9: 786.2] Diagnosis: RENAL & URETERAL DIS NOS[ICD9: 593.9] Verna Ferro MD [facility] CPT-4: 02899 05/16/2013 ([id number]) 51945 EST. PATIENT, LEVEL III Diagnosis: ESSENTIAL HYPERTENSION[SNOMED: 41741653] Diagnosis: COUGH[ICD9: 786.2] Diagnosis: PNEUMONIA (CAP)[ICD9: 486] Verna Ferro MD [facility] CPT- 4: 18122 05/01/2013 ([id number]) 96155 EST. PATIENT, LEVEL IV Diagnosis: ESSENTIAL HYPERTENSION[SNOMED: 97102822] Diagnosis: HYPERLIPIDEMIA[ICD9: 272.4] Verna Ferro MD [facility] CPT- 4: 98037 02/01/2013 ([id number]) 42027 EST. PATIENT, LEVEL III Diagnosis: ESSENTIAL HYPERTENSION[SNOMED: 09194383] Verna Ferro MD [facility] CPT-4: 97530 11/01/2012 ([id number]) 35078 EST. PATIENT, LEVEL III Diagnosis: ESSENTIAL HYPERTENSION[SNOMED: 37131976] Diagnosis: Multiple actinic keratoses[ICD9: 702.0] Verna Ferro MD [facility] CPT-4: 77969 09/01/2012 ([id number]) 32939 EST. PATIENT, LEVEL III Diagnosis: ESSENTIAL HYPERTENSION[SNOMED: 76322870] Diagnosis: CRP elevated[ICD9: 790.95] Verna Ferro MD [facility] CPT- 4: 44004 07/07/2012 ([id number]) 47089 EST. PATIENT, LEVEL IV Diagnosis: BACTERIAL PNEUMONIA NEC[ICD9: 482.89] Diagnosis: Cough[ICD9: 786.2] Verna Ferro MD, [facility] CPT-4: 05430 06/28/2012 ([id number]) 01524 EST. PATIENT, LEVEL IV Diagnosis: ESSENTIAL HYPERTENSION[SNOMED: 09397314] Diagnosis: Constipation[ICD9: 564.00] Diagnosis: H/O long-term (current) use of anticoagulants[ICD9: V58.61] Verna Ferro MD , [facility] CPT-4: 93341 05/25/2012 72377 EST. PATIENT, LEVEL IV Diagnosis: Pneumonia[ICD9: 486] Diagnosis: COUGH[ICD9: 786.2] Diagnosis: RENAL & URETERAL DIS NOS[ICD9: 593.9] Nydia Ferro MD [facility] CPT-4: 54356 03/17/2012 ([id number]) 64468 EST. PATIENT, LEVEL IV Diagnosis: ESSENTIAL HYPERTENSION[SNOMED: 35117974] Diagnosis: HYPERLIPIDEMIA[ICD9: 272.4] Diagnosis: Renal insufficiency[ICD9: 593.9] Verna Ferro MD, [facility] CPT-4: 28353 02/17/2012 87444 EST. PATIENT, LEVEL IV Diagnosis: ESSENTIAL HYPERTENSION[SNOMED: 80906474] Diagnosis: Constipation - functional[ICD9: 564.09] Diagnosis: COUGH[ICD9: 786.2] Verna Ferro MD, [facility] CPT-4: 77932 10/21/2011 ([id number]) 05712 EST. PATIENT, LEVEL IV Diagnosis: ESSENTIAL HYPERTENSION[SNOMED: 39584255] Diagnosis: HYPERLIPIDEMIA[ICD9: 272.4] Diagnosis: Sacroiliitis[ICD9: 720.2] Verna Ferro MD, [facility] CPT-4: 82670 06/24/2011 ([id number]) 26169 EST. PATIENT, LEVEL IV Diagnosis: ESSENTIAL HYPERTENSION[SNOMED: 11840691] Diagnosis: HYPERLIPIDEMIA[ICD9: 272.4] Verna Ferro MD, [facility] CPT- 4: 31848 05/25/2011 64627 EST. PATIENT, LEVEL IV Diagnosis: ESSENTIAL HYPERTENSION[SNOMED: 92831548] Diagnosis: Fatigue[ICD9: 780.79] Verna Ferro MD [facility] CPT-4: 14622 03/23/2011 67138 EST. PATIENT, LEVEL IV Diagnosis: Cyst of ear canal[ICD9: 380.89] Diagnosis: PNEUMONIA (CAP)[ICD9: 486] Diagnosis: HYPOTENSION[ICD9: 458.9] Nydia Ferro MD, [facility] CPT-4: 12708 02/03/2011 29593 EST. PATIENT, LEVEL IV Diagnosis: Dehydration[ICD9: 276.51] Diagnosis: PNEUMONIA (CAP)[ICD9: 486] Nydia Ferro MD, [facility] CPT-4: 62016 01/30/2011 85937 EST. PATIENT, LEVEL IV Diagnosis: PNEUMONIA (CAP)[ICD9: 486] Diagnosis: Dehydration[ICD9: 276.51] Diagnosis: HYPOTENSION[ICD9: 458.9] [facility] CPT-4: 98527 01/29/2011 Plan of Care Planned Activity Notes Codes Status Date Appointment: Ashok [facility] E [phone] [id number] [facility] - Annual Wellness Visit 04/22/2017 Appointment: Lab Draw 04/05/2017 Patient Education: Patient Medication Summary Completed 04/05/2017 Visit Plan: Hypertension - well controlled - continue with current medications, continue with no added salt diet. Pt has been encouraged to exercise daily. The pt has been advised to call the office if there are any acute concerns about change in blood pressure readings at home. Hyperlipidemia - pt has been counseled about appropriate diet, exercise, and need for low fat food choices. I have discussed the need for the patient to take medications as prescribed. If the patient has negative side effects from the medication, they are to CALL the office and not abruptly discontinue the medication without discussion with a practitioner in the office. We will check labs in 3-6 months for follow up on the patient's chronic medical problem and to assure normal liver response to medications. 03/09/2017 Appointment: [phone] [id number] (15 min) Moderate 03/09/2017 Patient Education: Patient Medication Summary Completed 03/09/2017 Visit Plan: Hypertension - well controlled - continue with current medications, continue with no added salt diet. Pt has been encouraged to exercise daily. The pt has been advised to call the office if there are any acute concerns about change in blood pressure readings at home. Hyperlipidemia - pt has been counseled about appropriate diet, exercise, and need for low fat food choices. I have discussed the need for the patient to take medications as prescribed. If the patient has negative side effects from the medication, they are to CALL the office and not abruptly discontinue the medication without discussion with a practitioner in the office. We will check labs in 3-6 months for follow up on the patient's chronic medical problem and to assure normal liver response to medications. Back pain - pt reports that his back pain is better - however he is going to wait to have any injections. 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 11/26/2016 Appointment: Nydia Cuellar WPtel: [address] [phone] [place] (30 min) Complex 11/26/2016 Patient Education: Patient Medication Summary Completed 11/26/2016 Visit Plan: Hypertension - well controlled - continue with current medications, continue with no added salt diet. Pt has been encouraged to exercise daily. The pt has been advised to call the office if there are any acute concerns about change in blood pressure readings at home. Hyperlipidemia - pt has been counseled about appropriate diet, exercise, and need for low fat food choices. I have discussed the need for the patient to take medications as prescribed. If the patient has negative side effects from the medication, they are to CALL the office and not abruptly discontinue the medication without discussion with a practitioner in the office. We will check labs in 3-6 months for follow up on the patient's chronic medical problem and to assure normal liver response to medications. Cough - prn cough medication - monitor symptoms. 08/04/2016 Appointment: Verna Ferro WPtel: [phone] [phone] [place] (15 min) Moderate 08/04/2016 Patient Education: Patient Medication Summary Completed 08/04/2016 Patient Education: Hypertension Completed 08/04/2016 Visit Plan: Medicare Exam - today we discussed the patients past history, immunizations, preventative exams/evaluations - colonoscopy, fecal occult blood testing, routine labs for renal function, glucose, cholesterol, osteoporosis evaluations, cardiovascular testing and cancer screenings. We have also discussed mental health and the signs/symptoms of depression. The patient was advised of home safety evaluations and the need to make sure that as the aging process continues, we need to be aware of different ways to make the home a safer place to reside. The patient has also been counseled that exercise is necessary - and of utmost importance as we age to help decrease fall risk and to maintain independece in the home. Today we discussed the need for the patient to create paperwork for Advanced directives as well as for the patient to provide this office with a copy of her DOPA paperwork for health care surrogate. 04/17/2016 Appointment: Nydia Cuellar WPtel: [phone] [phone] [facility] - Annual Wellness Visit 04/17/2016 Patient Education: Patient Medication Summary Completed 04/17/2016 Visit Plan: Hypertension - well controlled - continue with current medications, continue with no added salt diet. Pt has been encouraged to exercise daily. The pt has been advised to call the office if there are any acute concerns about change in blood pressure readings at home. Hyperlipidemia - pt has been counseled about appropriate diet, exercise, and need for low fat food choices. I have discussed the need for the patient to take medications as prescribed. If the patient has negative side effects from the medication, they are to CALL the office and not abruptly discontinue the medication without discussion with a practitioner in the office. We will check labs in 3-6 months for follow up on the patient's chronic medical problem and to assure normal liver response to medications. Neck pain - recommended massage, if not improving , then will have pt come in for trigger point injections. 04/07/2016 Appointment: [facility]el[phone] (15 min) Moderate 04/07/2016 Patient Education: Patient Medication Summary Completed 04/07/2016 Appointment: Injection 02/21/2016 Patient Education: Patient Medication Summary Completed 02/21/2016 Visit Plan: Hypertension - well controlled - continue with current medications, continue with no added salt diet. Pt has been encouraged to exercise daily. The pt has been advised to call the office if there are any acute concerns about change in blood pressure readings at home. Hyperlipidemia - pt has been counseled about appropriate diet, exercise, and need for low fat food choices. I have discussed the need for the patient to take medications as prescribed. If the patient has negative side effects from the medication, they are to CALL the office and not abruptly discontinue the medication without discussion with a practitioner in the office. We will check labs in 3-6 months for follow up on the patient's chronic medical problem and to assure normal liver response to medications. 12/04/2015 Appointment: Verna Ferro WPtel: [phone] [facility] (15 min) Moderate 12/04/2015 Patient Education: Patient Medication Summary Completed 12/04/2015 Visit Plan: Hypertension - too well controlled - Pt has been encouraged to exercise daily. The pt has been advised to call the office if there are any acute concerns about change in blood pressure readings at home. Pt has been instructed to decrease norvasc to 5mg daily - what you currently have is a 10mg pill - cut it in 1/2 and take 1/2 pill daily - when your current 10mg supply runs out - change to the 5mg pills - the new rx has been sent to the pharmacy. talk to [facility] care therapy - ask them to take you down to [employer] and show you which machines and how much on each machine you should be working on and how often to do the machines. Coumadin ( warfarin)pills - take 5mg wednesday/wednesday/wednesday/wednesday/wednesday and 1/2 pill wednesday/ check inr in 2 weeks 10/29/2015 Appointment: Verna Ferro WPtel: [phone] [facility] (15 min) Moderate 10/29/2015 Patient Education: Patient Medication Summary Completed 10/29/2015 Patient Education: Hypertension Completed 10/29/2015 Patient Education: Patient Medication Summary Completed 10/21/2015 Patient Education: Patient Medication Summary Completed 08/27/2015 Visit Plan: Joint Injection - right SI joint - Pt was given post - injection instructions. The pt has been advised to use anti- inflammatories post injection today, ice to the injected site, call if redness, warmth, or increased pain occurs at the site of injection. He is needing a seated wheeled walker due to increased weakness, difficulty with ambulation, and back pain. Length of need is expected to be 3-6 months. 08/02/2015 Visit Plan: Joint Injection - right SI joint - Pt was given post - injection instructions. The pt has been advised to use anti- inflammatories post injection today, ice to the injected site, call if redness, warmth, or increased pain occurs at the site of injection. 08/02/2015 Appointment: (30 min) Complex 08/02/2015 Patient Education: Patient Medication Summary Completed 08/02/2015 Referral: Roldan Cruz Referral Completed 07/11/2015 Visit Plan: Hypertension - well controlled - continue with current medications, continue with no added salt diet. Pt has been encouraged to exercise daily. The pt has been advised to call the office if there are any acute concerns about change in blood pressure readings at home. Pulmonary Hypertension - Newly diagnosed - I have recommended a Referral to Dr. Cruz re : pulmonary hypertension. Hyperlipidemia - pt has been counseled about appropriate diet, exercise, and need for low fat food choices. I have discussed the need for the patient to take medications as prescribed. If the patient has negative side effects from the medication, they are to CALL the office and not abruptly discontinue the medication without discussion with a practitioner in the office. We will check labs in 3-6 months for follow up on the patient's chronic medical problem and to assure normal liver response to medications. 06/25/2015 Appointment: Verna Ferro WPtel: [facility] (15 min) Moderate 06/25/2015 Patient Education: Patient Medication Summary Completed 06/25/2015 Patient Education: Hypertension Completed 06/25/2015 Care Plan: Referral Order SNOMED-CT : [id number] Ordered 06/25/2015 Visit Plan: Hypertension - well controlled - continue with current medications, continue with no added salt diet. Pt has been encouraged to exercise daily. The pt has been advised to call the office if there are any acute concerns about change in blood pressure readings at home. Hyperlipidemia - pt has been counseled about appropriate diet, exercise, and need for low fat food choices. I have discussed the need for the patient to take medications as prescribed. If the patient has negative side effects from the medication, they are to CALL the office and not abruptly discontinue the medication without discussion with a practitioner in the office. We will check labs in 3-6 months for follow up on the patient's chronic medical problem and to assure normal liver response to medications. Discussed treatment options for high cholesterol - pt may benefit from treatment with new injectable medications. 03/21/2015 Appointment: Verna Ferro WPtel: [phone] [facility] (15 min) Moderate 03/21/2015 Patient Education: Patient Medication Summary Completed 03/21/2015 Patient Education: Hypertension Completed 03/21/2015 Care Plan: Referral Order SNOMED-CT : [id number] Ordered 03/21/2015 Patient Education: Patient Medication Summary Completed 03/20/2015 Visit Plan: TIS-njoehcpjgg-uf change Pneumonia-resolved Left knee pain-continue pennsaid-recommend MRI if symptoms do not improve- continue to wear knee brace 02/22/2015 Appointment: (30 min) Complex 02/22/2015 Patient Education: Patient Medication Summary Completed 02/22/2015 Patient Education: Hypertension Completed 02/22/2015 Visit Plan: Pneumonia - Pt has been diagnosed with pneumonia by physical exam. A chest xray has been ordered as have antibiotics. The pt is aware of the diagnosis and the need for acute treatment of this illness. Chronic anticoagulation - pt to have coumadin level checked today and we will adjust his medication based on his pt/inr findings and repeat a pt/inr on wednesday. 02/12/2015 Appointment: (15 min) Moderate 02/12/2015 Appointment: Verna Ferro WPtel: [phone] [facility] (15 min) Moderate 02/12/2015 Patient Education: Patient Medication Summary Completed 02/12/2015 Visit Plan: Hypertension - well controlled - continue with current medications, continue with no added salt diet. Pt has been encouraged to exercise daily. The pt has been advised to call the office if there are any acute concerns about change in blood pressure readings at home. Left knee pain- swelling-patient sent for xray 12/28/2014 Appointment: (15 min) Moderate 12/28/2014 Patient Education: Patient Medication Summary Completed 12/28/2014 Patient Education: Hypertension Completed 12/28/2014 Visit Plan: Hypertension - well controlled - continue with current medications, continue with no added salt diet. Pt has been encouraged to exercise daily. The pt has been advised to call the office if there are any acute concerns about change in blood pressure readings at home. Hyperlipidemia - pt has been counseled about appropriate diet, exercise, and need for low fat food choices. I have discussed the need for the patient to take medications as prescribed. If the patient has negative side effects from the medication, they are to CALL the office and not abruptly discontinue the medication without discussion with a practitioner in the office. We will check labs in 3-6 months for follow up on the patient's chronic medical problem and to assure normal liver response to medications. Chronic Anticoagulant use - Pt has been counseled about the anticoagulant, need for serial monitoring, and need for the pt to alert the physician as to any new bruising, or acute bleeding. Therapeutic goal for INR is between 2.0 and 3.5. 12/19/2014 Appointment: Verna Ferro WPtel: [address] [place], [place] [id number] Follow up 12/19/2014 Patient Education: Patient Medication Summary Completed 12/19/2014 Patient Education: Patient Medication Summary Completed 12/17/2014 Visit Plan: Hypertension - well controlled - continue with current medications, continue with no added salt diet. Pt has been encouraged to exercise daily. The pt has been advised to call the office if there are any acute concerns about change in blood pressure readings at home. Hyperlipidemia - pt has been counseled about appropriate diet, exercise, and need for low fat food choices. I have discussed the need for the patient to take medications as prescribed. If the patient has negative side effects from the medication, they are to CALL the office and not abruptly discontinue the medication without discussion with a practitioner in the office. We will check labs in 3-6 months for follow up on the patient's chronic medical problem and to assure normal liver response to medications. Chronic Anticoagulant use - Pt has been counseled about the anticoagulant, need for serial monitoring, and need for the pt to alert the physician as to any new bruising, or acute bleeding. Therapeutic goal for INR is between 2.0 and 3.5. 08/22/2014 Appointment: Verna Ferro WPtel: [address] [place], [place] [phone] Follow up 08/22/2014 Patient Education: Patient Medication Summary Completed 08/22/2014 Patient Education: Hypertension Completed 08/22/2014 Visit Plan: Hypertension - too well controlled - continue with current medications, continue with no added salt diet. Pt has been encouraged to exercise daily. The pt has been advised to call the office if there are any acute concerns about change in blood pressure readings at home. Hyperlipidemia - pt has been counseled about appropriate diet, exercise, and need for low fat food choices. I have discussed the need for the patient to take medications as prescribed. If the patient has negative side effects from the medication, they are to CALL the office and not abruptly discontinue the medication without discussion with a practitioner in the office. We will check labs in 3-6 months for follow up on the patient's chronic medical problem and to assure normal liver response to medications. 05/23/2014 Appointment: Verna Ferro WPtel: [address] [place], [place] [id number] Follow up 05/23/2014 Patient Education: Patient Medication Summary Completed 05/23/2014 Patient Education: Hypertension Completed 05/23/2014 Appointment: Verna Ferro WPtel: [address] [place], [place] [phone] Follow up 05/21/2014 Appointment: Verna Ferro WPtel: [address] [place], [place] [phone] Follow up 05/11/2014 Visit Plan: Hypertension - uncontrolled - the patient's medications have been modified as documented in the visit note. The patient has been counseled to cut back on salt in diet for a no added salt diet, low fat diet, start an exercise program with low weight bearing exercises and higher aerobic activity for heart health. The patient is to check blood pressure readings as an outpatient and either fax, call, or email the readings to the office next week for practitioner to review. The pt is to call for acute concerns. restart diovan 320mg 1/2 pill daily, if pressures still above 140, then restart diovan 320mg twice daily. Hyperlipidemia - pt has been counseled about appropriate diet, exercise, and need for low fat food choices. I have discussed the need for the patient to take medications as prescribed. If the patient has negative side effects from the medication, they are to CALL the office and not abruptly discontinue the medication without discussion with a practitioner in the office. We will check labs in 3-6 months for follow up on the patient's chronic medical problem and to assure normal liver response to medications. restart lipitor restart trilipix 03/19/2014 Patient Education: Patient Medication Summary Completed 03/19/2014 Patient Education: Hypertension Completed 03/19/2014 Care Plan: COMPLETE CBC AUTOMATED LOINC : 47053-6 Ordered 03/19/2014 Visit Plan: Diarrhea - persistent - Pt to start on probiotic three times daily x 2 weeks. Urinary urgency - pt to start on flomax Pt to restart several home medications, bring in blood pressure machine. 03/05/2014 Appointment: Verna Ferro WPtel: [address] [place], [place] [phone] Follow up 03/05/2014 Patient Education: Patient Medication Summary Completed 03/05/2014 Visit Plan: Pt to see Dr. Graf at 3:30pm on Wednesday Pt to finish antibiotics and advance diet. 02/19/2014 Appointment: Verna Ferro WPtel: [address] [place] [id number] Follow up 02/19/2014 Patient Education: Patient Medication Summary Completed 02/19/2014 Visit Plan: Cellulitis-oral soft tissue-Dr Ferro in to evaluate patient-plan to start on clindamycin orally. Instructed the patient and his to call if symptoms do not completely resolve, or if they become any worse. Patient and verbalize understanding of plan. 02/13/2014 Appointment: Sick 02/13/2014 Patient Education: Patient Medication Summary Completed 02/13/2014 Visit Plan: Hypertension - well controlled - continue with current medications, continue with no added salt diet. Pt has been encouraged to exercise daily. The pt has been advised to call the office if there are any acute concerns about change in blood pressure readings at home. 02/08/2014 Appointment: Verna Ferro WPtel: [phone] [facility] Follow up 02/08/2014 Patient Education: Patient Medication Summary Completed 02/08/2014 Visit Plan: ADMIT FROM CLINIC TO HOSPITAL - PT IS ACUTELY ILL, REQUIRES HOSPITALIZATION. THE PATIENT HAS BEEN EVALUATED IN CLINIC AND THIS STANDS THE HOSPITAL HISTORY AND PHYSICAL EXAMINATION. THE PATIENT HAS BEEN SENT TO THE HOSPITAL WITH WRITTEN ORDERS FOR TREATMENT AND EVALUATION OF THE ACUTE ILLNESS. Pt is suspected to have appendicitis - pt to be admitted, Dr. Graf consulted per patient request, and pt to be started on iv antibiotics, check labs, and CT scan of abdomen and keep pt NPO 01/18/2014 Appointment: Verna Ferro WPtel: [phone] [facility] Sick 01/18/2014 Patient Education: Patient Medication Summary Completed 01/18/2014 Patient Education: Hypertension Completed 01/18/2014 Visit Plan: Hypertension - well controlled - continue with current medications, continue with no added salt diet. Pt has been encouraged to exercise daily. The pt has been advised to call the office if there are any acute concerns about change in blood pressure readings at home. Hyperlipidemia - pt has been counseled about appropriate diet, exercise, and need for low fat food choices. I have discussed the need for the patient to take medications as prescribed. If the patient has negative side effects from the medication, they are to CALL the office and not abruptly discontinue the medication without discussion with a practicioner in the office. We will check labs in 3-6 months for follow up on the patient's chronic medical problem and to assure normal liver response to medications. Nodule on tongue - appt with dr. hanks for evaluation and treatment with likely biopsy. 10/10/2013 Appointment: Verna Ferro WPtel: [phone] [facility] Follow up 10/10/2013 Patient Education: Patient Medication Summary Completed 10/10/2013 Patient Education: Hypertension Completed 10/10/2013 Visit Plan: Hypertension - well controlled - continue with current medications, continue with no added salt diet. Pt has been encouraged to exercise daily. The pt has been advised to call the office if there are any acute concerns about change in blood pressure readings at home. Hyperlipidemia - pt has been counseled about appropriate diet, exercise, and need for low fat food choices. I have discussed the need for the patient to take medications as prescribed. If the patient has negative side effects from the medication, they are to CALL the office and not abruptly discontinue the medication without discussion with a practicioner in the office. We will check labs in 3-6 months for follow up on the patient's chronic medical problem and to assure normal liver response to medications. 08/15/2013 Appointment: Verna Ferro WPtel: [phone] [id number] Follow up 08/15/2013 Patient Education: Patient Medication Summary Completed 08/15/2013 Patient Education: Hypertension Completed 08/15/2013 Visit Plan: Cough - improved - continue with current treatment. Elevated creatinine - recommended pt to increase water intake. 05/16/2013 Appointment: Verna Ferro WPtel: [phone] [phone] Follow up 05/16/2013 Patient Education: Patient Medication Summary Completed 05/16/2013 Visit Plan: Hypertension - uncontrolled - the pt has been anxious today - The patient has been counseled to cut back on salt in diet for a no added salt diet, low fat diet, start an exercise program with low weight bearing exercises and higher aerobic activity for heart health. The patient is to check blood pressure readings as an outpatient and either fax, call, or email the readings to the office next week for practicioner to review. The pt is to call for acute concerns. Pneumonia - Pt has been diagnosed with pneumonia by physical exam. Antibiotics have been ordered - The pt is aware of the diagnosis and the need for acute treatment of this illness. 05/01/2013 Appointment: Verna Ferro WPtel: [phone] [facility] Follow up 05/01/2013 Patient Education: Patient Medication Summary Completed 05/01/2013 Patient Education: Hypertension Completed 05/01/2013 Visit Plan: Hypertension - well controlled - continue with current medications, continue with no added salt diet. Pt has been encouraged to exercise daily. The pt has been advised to call the office if there are any acute concerns about change in blood pressure readings at home. Hyperlipidemia - pt has been counseled about appropriate diet, exercise, and need for low fat food choices. I have discussed the need for the patient to take medications as prescribed. If the patient has negative side effects from the medication, they are to CALL the office and not abruptly discontinue the medication without discussion with a practicioner in the office. We will check labs in 3-6 months for follow up on the patient's chronic medical problem and to assure normal liver response to medications. PT AGREED TO START EXERCISE AT THE [facility] IN [place] AT LEAST THREE TIMES A WEEK. 02/01/2013 Appointment: Verna Ferro WPtel: [phone] [facility] [place] Follow up 02/01/2013 Patient Education: Patient Medication Summary Completed 02/01/2013 Patient Education: Hypertension Completed 02/01/2013 Visit Plan: Hypertension - well controlled - continue with current medications, continue with no added salt diet. Pt has been encouraged to exercise daily. The pt has been advised to call the office if there are any acute concerns about change in blood pressure readings at home. 11/01/2012 Appointment: Vern[facility]el[phone] [facility] Follow up 11/01/2012 Patient Education: Patient Medication Summary Completed 11/01/2012 Patient Education: Hypertension Completed 11/01/2012 Appointment: [facility]el[phone] [phone] [place] Follow up 09/28/2012 Visit Plan: Wound Instructions - Pt was instruced to keep the wound clean, wash with antibacterial soap, use triple antibiotic ointment, call if redness, pustular drainage, or any other acute conerns. 09/07/2012 Patient Education: Patient Medication Summary Completed 09/07/2012 Visit Plan: Hypertension - well controlled - continue with current medications, continue with no added salt diet. Pt has been encouraged to exercise daily. The pt has been advised to call the office if there are any acute concerns about change in blood pressure readings at home. 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 However, the lesion on his right upper forearm and left hand/wrist should probably be removed via shave biopsy and sent for pathology. 09/01/2012 Appointment: Verna Ferro WPtel: [phone] [facility] Follow up 09/01/2012 Patient Education: Patient Medication Summary Completed 09/01/2012 Patient Education: Hypertension Completed 09/01/2012 Patient Education: Patient Medication Summary Completed 07/13/2012 Visit Plan: HTN - blood pressures improved per home blood pressure report - continue with current medications. Pt to report blood pressure in three weeks. Elevated CRP - pt had pneumonia - has been on antibiotics - will repeat in one more week. 07/07/2012 Appointment: Verna Ferro WPtel: [phone] [facility] Follow up 07/07/2012 Patient Education: Patient Medication Summary Completed 07/07/2012 Patient Education: Hypertension Completed 07/07/2012 Visit Plan: Pneumonia - Pt has been diagnosed with pneumonia by physical exam. A chest xray has been ordered as have antibiotics. The pt is aware of the diagnosis and the need for acute treatment of this illness. Cough - recommended pt to start on cough medication call if symptoms are not improving. 06/28/2012 Patient Education: Patient Medication Summary Completed 06/28/2012 Visit Plan: Hypertension - uncontrolled - the patient's medications have been modified as documented in the visit note. The patient has been counseled to cut back on salt in diet for a no added salt diet, low fat diet, start an exercise program with low weight bearing exercises and higher aerobic activity for heart health. The patient is to check blood pressure readings as an outpatient and either fax, call, or email the readings to the office next week for practicioner to review. The pt is to call for acute concerns. PT IS TO START TAKING THE NORVASC AT NOON INSTEAD OF IN THE MORNING. LORETA IS TO DROP OFF HIS BLOOD PRESSURE READINGS NEXT WEEK. 06/08/2012 Appointment: Verna Ferro WPtel: [phone] [facility] Follow up 06/08/2012 Patient Education: Patient Medication Summary Completed 06/08/2012 Patient Education: Hypertension Completed 06/08/2012 Visit Plan: Hypertension - uncontrolled - the patient's medications have been modified as documented in the visit note. The patient has been counseled to cut back on salt in diet for a no added salt diet, low fat diet, start an exercise program with low weight bearing exercises and higher aerobic activity for heart health. The patient is to check blood pressure readings as an outpatient and either fax, call, or email the readings to the office next week for practicioner to review. The pt is to call for acute concerns. Constipation - uncontrolled - I have discussed with the patient the need for adequate fiber and water intake to facilitate soft, easily passed stools. The pt noted understanding of our conversation. I have given the patient a recipe for "power pudding" - equal parts, bran flakes, prune juice, and apple sauce. The pt is to call if symptoms not improved on this regimen. Chronic Anticoagulant use - Pt has been counseled about the anticoagulant, need for serial monitoring, and need for the pt to alert the physician as to any new bruising, or acute bleeding. Theraputic goal for INR is between 2.0 and 3.5. 05/25/2012 Appointment: Vern[facility] Ferro [facility]Ptel[phone] [facility] Follow up 05/25/2012 Patient Education: Patient Medication Summary Completed 05/25/2012 Patient Education: Hypertension Completed 05/25/2012 Visit Plan: Pneumonia-cough- Pt advised to increase fluids , vitamin C. Discussed natural and expected course of this diagnosis and need to alert me if symtpoms do not follow expected course, or if any worse. RX sent to patient's pharmacy and instructed on use. Andrews to go to the [facility] for chest xray and labs. He is to call or go to ER if his symptoms do not improve, or if ANY worse. Patient verbalized understanding of plan. Chronic renal disease -check labs and follow renal function closely. 03/17/2012 Appointment: Nydia Cuellar WPtel: [phone] [phone] [facility] 03/17/2012 Patient Education: Patient Medication Summary Completed 03/17/2012 Visit Plan: Hypertension - well controlled - continue with current medications, continue with no added salt diet. Pt has been encouraged to exercise daily. The pt has been advised to call the office if there are any acute concerns about change in blood pressure readings at home. Hyperlipidemia - pt has been counseled about appropriate diet, exercise, and need for low fat food choices. I have discussed the need for the patient to take medications as prescribed. If the patient has negative side effects from the medication, they are to CALL the office and not abruptly discontinue the medication without discussion with a practicioner in the office. We will check labs in 3-6 months for follow up on the patient's chronic medical problem and to assure normal liver response to medications. Mild Renal insufficiency- recommended pt to change his diovan from diovan/hct- 320/12.5 1/2 po bid- to plain diovan 320 mg 1 /2 po bid. 02/17/2012 Appointment: Verna Ferro WPtel: [phone] [facility] Follow up 02/17/2012 Patient Education: Patient Medication Summary Completed 02/17/2012 Patient Education: High Blood Pressure: Essential Hypertension Completed 2011 Visit Plan: Hypertension - well controlled - continue with current medications, continue with no added salt diet. Pt has been encouraged to exercise daily. The pt has been advised to call the office if there are any acute concerns about change in blood pressure readings at home. Constipation - uncontrolled - I have discussed with the patient the need for adequate fiber and water intake to facilitate soft, easily passed stools. The pt noted understanding of our conversation.. Pt to start on senna s one twice daily. Cough - suspect is allergy related, no specific treatment at this time. 10/21/2011 Appointment: Verna Ferro WPtel: [phone] [facility] Other 10/21/2011 Patient Education: Patient Medication Summary Completed 10/21/2011 Patient Education: High Blood Pressure: Essential Hypertension Completed 2011 Visit Plan: Hypertension - well controlled - continue with current medications, continue with no added salt diet. Pt has been encouraged to exercise daily. The pt has been advised to call the office if there are any acute concerns about change in blood pressure readings at home. Hyperlipidemia - pt has been counseled about appropriate diet, exercise, and need for low fat food choices. I have discussed the need for the patient to take medications as prescribed. If the patient has negative side effects from the medication, they are to CALL the office and not abruptly discontinue the medication without discussion with a practicioner in the office. We will check labs in 3-6 months for follow up on the patient's chronic medical problem and to assure normal liver response to medications. His HDL cotinues to be low, unable to adjust his meds to improve the HDL despite being on multiple theraputic treatments. Continue to encouraged diet changes and exercise. Trigger Points - Injected trigger points today, pt given post-injection instructions, signs and symptoms for which to call the office. Pt to use heat to the muscles today, and take an anti-inflammatory today unless otherwise contraindicated by renal function or other disease process. Trigger point injections over the SI joints bilaterally 06/24/2011 Appointment: Verna Ferro WPtel: [address] [place] [address] Other 06/24/2011 Patient Education: Patient Medication Summary Completed 06/24/2011 Patient Education: High Blood Pressure: Essential Hypertension Completed 2011 Visit Plan: Hypertension - well controlled - continue with current medications, continue with no added salt diet. Pt has been encouraged to exercise daily. The pt has been advised to call the office if there are any acute concerns about change in blood pressure readings at home. Hyperlipidemia - pt has been counseled about appropriate diet, exercise, and need for low fat food choices. I have discussed the need for the patient to take medications as prescribed. If the patient has negative side effects from the medication, they are to CALL the office and not abruptly discontinue the medication without discussion with a practicioner in the office. We will check labs in 3-6 months for follow up on the patient's chronic medical problem and to assure normal liver response to medications. 05/25/2011 Appointment: Verna Ferro WPtel: [facility]2 [facility]66[facility] Other 05/25/2011 Patient Education: Patient Medication Summary Completed 05/25/2011 Patient Education: High Blood Pressure: Essential Hypertension Completed 2011 Visit Plan: Hypertension - well controlled - continue with current medications, continue with no added salt diet. Pt has been encouraged to exercise daily. The pt has been advised to call the office if there are any acute concerns about change in blood pressure readings at home. Fatige- recommeded pt to continue with exercise, recommended to change eating pattern, eat smaller servings at breakfast, eat a lunch and smaller supper. 03/23/2011 Appointment: Verna Ferro WPtel: [phone] [place] [phone] Other 03/23/2011 Patient Education: Patient Medication Summary Completed 03/23/2011 Patient Education: High Blood Pressure: Essential Hypertension Completed 2010 Appointment: Verna Ferro WPtel: [phone] [place] [address] [place] Other 02/24/2011 Visit Plan: Luyfqthoe-hhzaefok-unaemsuvj natural and expected course of this diagnosis and patient to alert me if symptoms do not follow expected course. Follow up in 3 weeks, sooner if any symptoms return. Finish antibiotic as instructed. Qnzapvxvdvu-dpxscjnt-wyjmjoc diovan 1/2 tab daily-monitor blood pressure daily and bring to clinic for review at next appointment. Call with any concerns-elevated blood pressure, chest pain, soa, etc. Ear lesion-right ear canal-lesion drained per Dr. Ferro-culture obtained. 02/03/2011 Visit Plan: Funwyhgnt-bnbsyuxh-vxlonpfjt natural and expected course of this diagnosis and patient to alert me if symptoms do not follow expected course. Follow up in 3 weeks, sooner if any symptoms return. Finish antibiotic as instructed. Xyohpqgyupa-gywbktme-qssvyiw diovan 1/2 tab daily-monitor blood pressure daily and bring to clinic for review at next appointment. Call with any concerns-elevated blood pressure, chest pain, soa, etc. Ear lesion-right ear canal-lesion drained per Dr. Ferro-culture obtained. Doctor's eval of the patient - I personally evaluated the patient with the nurse practicioner. I have reviewed the patient's chart, I have reviewed the patient's past medical history, problem list, medication list, and personal history. I agree with the documentation by the nurse practicioner in the HPI, physical exam, and the assessment and plan. 02/03/2011 Appointment: Nydia Cuellar WPtel: [facility] [place] [phone] [place] Other 02/03/2011 Patient Education: Patient Medication Summary Completed 02/03/2011 Visit Plan: Pneumonia-discussed natural and expected course of this diagnosis and patient to alert me if symptoms do not follow expected course. Rocephin 1gm injection given in the office today. Continue levaquin 1/2 tab daily for 5 additional days. Follow up Wednesday in the office. Zinypkhbepa-ivnwezfk-fgfb recheck labs today-continue to increase fluids and monitor symptoms. Hypotension-improved as well. Monitor blood pressure at home. Return to clinic Wednesday for follow up, sooner if needed. ER over the weekend with any changes or concerns. Recheck labs Wednesday a.m. 01/30/2011 Appointment: Nydia Cuellar WPtel: [phone] Other 01/30/2011 Patient Education: Patient Medication Summary Completed 01/30/2011 Visit Plan: Pneumonia-discussed natural and expected course of this diagnosis and patient to alert me if symptoms do not follow expected course. Rocephin 1gm injection given in the office today as well as albuterol treatment. Instructed to continue with nebulizer treatments every 4 hours-samples of albuterol provided to patient. RX for levaquin sent to patient' s pharmacy and instructed to start today. Instructed patient and to take a full tab today then 1/2 tab daily due to kidney function. Dehydration- instructed patient to increase his fluid intake. Called Dr. Ferro and discussed labs with her-recommend IVF normal saline 1 liter at the hospital today. Return to clinic in am for follow up. Hypotension-hold diovan-monitor blood pressure and call for any concerns. Instructed patient and to go to ER if symptoms worsen or do not improve. Will follow up with patient in the office tomorrow morning. Recheck labs in a.m. Recheck PT/INR next week. 01/29/2011 Appointment: Nydia Cuellar WPtel: [phone] Other 01/29/2011 Patient Education: Patient Medication Summary Completed 01/29/2011 Referral: Roldan Cruz Referral Appointment Requested Referral: External, Ordering Provider Referral Appointment Requested Instructions Comment . Medicare Exam - today we discussed the patients past history, immunizations, preventative exams/evaluations - colonoscopy, fecal occult blood testing, routine labs for renal function, glucose, cholesterol, osteoporosis evaluations, cardiovascular testing and cancer screenings. We have also discussed mental health and the signs/symptoms of depression. The patient was advised of home safety evaluations and the need to make sure that as the aging process continues, we need to be aware of different ways to make the home a safer place to reside. The patient has also been counseled that exercise is necessary - and of utmost importance as we age to help decrease fall risk and to maintain independece in the home. Today we discussed the need for the patient to create paperwork for Advanced directives as well as for the patient to provide this office with a copy of her DOPA paperwork for health care surrogate. . Hypertension - too well controlled - continue with current medications, continue with no added salt diet. Pt has been encouraged to exercise daily. The pt has been advised to call the office if there are any acute concerns about change in blood pressure readings at home. Hyperlipidemia - pt has been counseled about appropriate diet, exercise, and need for low fat food choices. I have discussed the need for the patient to take medications as prescribed. If the patient has negative side effects from the medication, they are to CALL the office and not abruptly discontinue the medication without discussion with a practitioner in the office. We will check labs in 3-6 months for follow up on the patient's chronic medical problem and to assure normal liver response to medications. . Cough - improved - continue with current treatment. Elevated creatinine - recommended pt to increase water intake. . Pneumonia - Pt has been diagnosed with pneumonia by physical exam. A chest xray has been ordered as have antibiotics. The pt is aware of the diagnosis and the need for acute treatment of this illness. Cough - recommended pt to start on cough medication call if symptoms are not improving. Continue levaquin 1/2 daily for the next 5 days. Continue breathing treatments every 4-6 hours as needed. Hold diovan until blood pressure greater than 130/70. Take your blood pressure daily at noon, if blood pressure greater than 130/70-take diovan 1/2 tablet and then restart your normal twice daily per day the next day. If your blood pressure is less than 130/70, continue to hold diovan. Recheck blood pressure the next day and follow the same rules. I called the RX for promethazine with codeine cough syrup-you can take 5-10ml every 4-6 hours as needed for cough. . Pneumonia-discussed natural and expected course of this diagnosis and patient to alert me if symptoms do not follow expected course. Rocephin 1gm injection given in the office today. Continue levaquin 1/2 tab daily for 5 additional days. Follow up Wednesday in the office. Ldmolshtgus-cmrqzpin-cltq recheck labs today-continue to increase fluids and monitor symptoms. Hypotension-improved as well. Monitor blood pressure at home. Return to clinic Wednesday for follow up, sooner if needed. ER over the weekend with any changes or concerns. Recheck labs Wednesday a.m. . Hypertension - well controlled - continue with current medications, continue with no added salt diet. Pt has been encouraged to exercise daily. The pt has been advised to call the office if there are any acute concerns about change in blood pressure readings at home. Hyperlipidemia - pt has been counseled about appropriate diet, exercise, and need for low fat food choices. I have discussed the need for the patient to take medications as prescribed. If the patient has negative side effects from the medication, they are to CALL the office and not abruptly discontinue the medication without discussion with a practicioner in the office. We will check labs in 3-6 months for follow up on the patient's chronic medical problem and to assure normal liver response to medications. . Hypertension - well controlled - continue with current medications, continue with no added salt diet. Pt has been encouraged to exercise daily. The pt has been advised to call the office if there are any acute concerns about change in blood pressure readings at home. Hyperlipidemia - pt has been counseled about appropriate diet, exercise, and need for low fat food choices. I have discussed the need for the patient to take medications as prescribed. If the patient has negative side effects from the medication, they are to CALL the office and not abruptly discontinue the medication without discussion with a practitioner in the office. We will check labs in 3-6 months for follow up on the patient's chronic medical problem and to assure normal liver response to medications. Cough - prn cough medication - monitor symptoms. Restart your diovan 1/2 tab daily. Continue to monitor blood pressure daily and call with readings. May change albuterol breathing treatments to as needed only. May stop levaquin after last dose on Wednesday. Recheck kidney function and coumadin level in 2 weeks. Follow up with Dr. Ferro 3 weeks for your blood pressure. . Dmihpvbsj-ceblglcj-eixfjskiq natural and expected course of this diagnosis and patient to alert me if symptoms do not follow expected course. Follow up in 3 weeks, sooner if any symptoms return. Finish antibiotic as instructed. Omwsrqjctjq-fmzlrsnk-xycwivn diovan 1/2 tab daily-monitor blood pressure daily and bring to clinic for review at next appointment. Call with any concerns- elevated blood pressure, chest pain, soa, etc. Ear lesion-right ear canal-lesion drained per Dr. Ferro-culture obtained. . Pneumonia - Pt has been diagnosed with pneumonia by physical exam. A chest xray has been ordered as have antibiotics. The pt is aware of the diagnosis and the need for acute treatment of this illness. Chronic anticoagulation - pt to have coumadin level checked today and we will adjust his medication based on his pt/inr findings and repeat a pt/inr on wednesday. appt with dr. hanks - at 9AM on 10/14/13 - office is on [facility] - across from Dr. Camarena's office . Hypertension - well controlled - continue with current medications, continue with no added salt diet. Pt has been encouraged to exercise daily. The pt has been advised to call the office if there are any acute concerns about change in blood pressure readings at home. Hyperlipidemia - pt has been counseled about appropriate diet, exercise, and need for low fat food choices. I have discussed the need for the patient to take medications as prescribed. If the patient has negative side effects from the medication, they are to CALL the office and not abruptly discontinue the medication without discussion with a practicioner in the office. We will check labs in 3-6 months for follow up on the patient's chronic medical problem and to assure normal liver response to medications. Nodule on tongue - appt with dr. hanks for evaluation and treatment with likely biopsy. . Hypertension - well controlled - continue with current medications, continue with no added salt diet. Pt has been encouraged to exercise daily. The pt has been advised to call the office if there are any acute concerns about change in blood pressure readings at home. . XZE-znjvqfjdom-om change Pneumonia-resolved Left knee pain-continue pennsaid-recommend MRI if symptoms do not improve- continue to wear knee brace CHECK PT/INR TODAY CONTINUE SAME DOSE OF COUMADIN UNLESS WE CALL YOU WITH CHANGES . custodial use of anti coagulants-unable to have injections in back due to INR too high-will check INR today-instructed patient that we can check INR before his procedure to make sure it is low enough to have the procedure done so he doesn't have to wait and get canceled again. . Joint Injection - right SI joint - Pt was given post - injection instructions. The pt has been advised to use anti-inflammatories post injection today, ice to the injected site, call if redness, warmth, or increased pain occurs at the site of injection. He is needing a seated wheeled walker due to increased weakness, difficulty with ambulation, and back pain. Length of need is expected to be 3-6 months. PT IS TO START TAKING THE NORVASC AT NOON INSTEAD OF IN THE MORNING. LORETA IS TO DROP OFF HIS BLOOD PRESSURE READINGS NEXT WEEK.. Hypertension - uncontrolled - the patient's medications have been modified as documented in the visit note. The patient has been counseled to cut back on salt in diet for a no added salt diet, low fat diet, start an exercise program with low weight bearing exercises and higher aerobic activity for heart health. The patient is to check blood pressure readings as an outpatient and either fax , call, or email the readings to the office next week for practicioner to review. The pt is to call for acute concerns. PT IS TO START TAKING THE NORVASC AT NOON INSTEAD OF IN THE MORNING. LORETA IS TO DROP OFF HIS BLOOD PRESSURE READINGS NEXT WEEK. . Hypertension - well controlled - continue with current medications, continue with no added salt diet. Pt has been encouraged to exercise daily. The pt has been advised to call the office if there are any acute concerns about change in blood pressure readings at home. Hyperlipidemia - pt has been counseled about appropriate diet, exercise, and need for low fat food choices. I have discussed the need for the patient to take medications as prescribed. If the patient has negative side effects from the medication, they are to CALL the office and not abruptly discontinue the medication without discussion with a practicioner in the office. We will check labs in 3-6 months for follow up on the patient's chronic medical problem and to assure normal liver response to medications. Mild Renal insufficiency- recommended pt to change his diovan from diovan/hct- 320/12.5 1/2 po bid- to plain diovan 320 mg 1/2 po bid. . Hypertension - well controlled - continue with current medications, continue with no added salt diet. Pt has been encouraged to exercise daily. The pt has been advised to call the office if there are any acute concerns about change in blood pressure readings at home. Pulmonary Hypertension - Newly diagnosed - I have recommended a Referral to Dr. Cruz re: pulmonary hypertension. Hyperlipidemia - pt has been counseled about appropriate diet, exercise, and need for low fat food choices. I have discussed the need for the patient to take medications as prescribed. If the patient has negative side effects from the medication, they are to CALL the office and not abruptly discontinue the medication without discussion with a practitioner in the office. We will check labs in 3-6 months for follow up on the patient's chronic medical problem and to assure normal liver response to medications. . HTN - blood pressures improved per home blood pressure report - continue with current medications. Pt to report blood pressure in three weeks. Elevated CRP - pt had pneumonia - has been on antibiotics - will repeat in one more week. . Hypertension - well controlled - continue with current medications, continue with no added salt diet. Pt has been encouraged to exercise daily. The pt has been advised to call the office if there are any acute concerns about change in blood pressure readings at home. Hyperlipidemia - pt has been counseled about appropriate diet, exercise, and need for low fat food choices. I have discussed the need for the patient to take medications as prescribed. If the patient has negative side effects from the medication, they are to CALL the office and not abruptly discontinue the medication without discussion with a practitioner in the office. We will check labs in 3-6 months for follow up on the patient's chronic medical problem and to assure normal liver response to medications. Chronic Anticoagulant use - Pt has been counseled about the anticoagulant, need for serial monitoring, and need for the pt to alert the physician as to any new bruising, or acute bleeding. Therapeutic goal for INR is between 2.0 and 3.5. . Hypertension - well controlled - continue with current medications, continue with no added salt diet. Pt has been encouraged to exercise daily. The pt has been advised to call the office if there are any acute concerns about change in blood pressure readings at home. Fatige-recommeded pt to continue with exercise, recommended to change eating pattern, eat smaller servings at breakfast, eat a lunch and smaller supper. . ADMIT FROM CLINIC TO HOSPITAL - PT IS ACUTELY ILL, REQUIRES HOSPITALIZATION. THE PATIENT HAS BEEN EVALUATED IN CLINIC AND THIS STANDS THE HOSPITAL HISTORY AND PHYSICAL EXAMINATION. THE PATIENT HAS BEEN SENT TO THE HOSPITAL WITH WRITTEN ORDERS FOR TREATMENT AND EVALUATION OF THE ACUTE ILLNESS. Pt is suspected to have appendicitis - pt to be admitted, Dr. Graf consulted per patient request, and pt to be started on iv antibiotics, check labs, and CT scan of abdomen and keep pt NPO . Hypertension - well controlled - continue with current medications, continue with no added salt diet. Pt has been encouraged to exercise daily. The pt has been advised to call the office if there are any acute concerns about change in blood pressure readings at home. 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 However, the lesion on his right upper forearm and left hand/wrist should probably be removed via shave biopsy and sent for pathology. . Hypertension - well controlled - continue with current medications, continue with no added salt diet. Pt has been encouraged to exercise daily. The pt has been advised to call the office if there are any acute concerns about change in blood pressure readings at home. Hyperlipidemia - pt has been counseled about appropriate diet, exercise, and need for low fat food choices. I have discussed the need for the patient to take medications as prescribed. If the patient has negative side effects from the medication, they are to CALL the office and not abruptly discontinue the medication without discussion with a practitioner in the office. We will check labs in 3-6 months for follow up on the patient's chronic medical problem and to assure normal liver response to medications. Back pain - pt reports that his back pain is better - however he is going to wait to have any injections. . Hypertension - well controlled - continue with current medications, continue with no added salt diet. Pt has been encouraged to exercise daily. The pt has been advised to call the office if there are any acute concerns about change in blood pressure readings at home. Hyperlipidemia - pt has been counseled about appropriate diet, exercise, and need for low fat food choices. I have discussed the need for the patient to take medications as prescribed. If the patient has negative side effects from the medication, they are to CALL the office and not abruptly discontinue the medication without discussion with a practitioner in the office. We will check labs in 3-6 months for follow up on the patient's chronic medical problem and to assure normal liver response to medications. Chronic Anticoagulant use - Pt has been counseled about the anticoagulant, need for serial monitoring, and need for the pt to alert the physician as to any new bruising, or acute bleeding. Therapeutic goal for INR is between 2.0 and 3.5. . Ndnfhbgtn-qhyqhzsu-uxpsaxple natural and expected course of this diagnosis and patient to alert me if symptoms do not follow expected course. Follow up in 3 weeks, sooner if any symptoms return. Finish antibiotic as instructed. Ccqqdokvkoz-lmxbdtnb-ugknplg diovan 1/2 tab daily-monitor blood pressure daily and bring to clinic for review at next appointment. Call with any concerns- elevated blood pressure, chest pain, soa, etc. Ear lesion-right ear canal-lesion drained per Dr. Ferro-culture obtained. Doctor's eval of the patient - I personally evaluated the patient with the nurse practicioner. I have reviewed the patient's chart, I have reviewed the patient's past medical history, problem list, medication list, and personal history. I agree with the documentation by the nurse practicioner in the HPI, physical exam, and the assessment and plan. . Hypertension - well controlled - continue with current medications, continue with no added salt diet. Pt has been encouraged to exercise daily. The pt has been advised to call the office if there are any acute concerns about change in blood pressure readings at home. Hyperlipidemia - pt has been counseled about appropriate diet, exercise, and need for low fat food choices. I have discussed the need for the patient to take medications as prescribed. If the patient has negative side effects from the medication, they are to CALL the office and not abruptly discontinue the medication without discussion with a practicioner in the office. We will check labs in 3-6 months for follow up on the patient's chronic medical problem and to assure normal liver response to medications. XRAY LEFT KNEE . Hypertension - well controlled - continue with current medications, continue with no added salt diet. Pt has been encouraged to exercise daily. The pt has been advised to call the office if there are any acute concerns about change in blood pressure readings at home. Left knee jcsw-znvjwidw-zkdiquc sent for xray . Hypertension - well controlled - continue with current medications, continue with no added salt diet. Pt has been encouraged to exercise daily. The pt has been advised to call the office if there are any acute concerns about change in blood pressure readings at home. Hold diovan tonight and tomorrow. Get labs and chest xray at the hospital today. Come back tomorrow for follow up. Do your albuterol 3cc (1 vial) breathing treatments every 4-6 hours. I sent the RX for Levaquin to [facility]-start today. . Pneumonia-discussed natural and expected course of this diagnosis and patient to alert me if symptoms do not follow expected course. Rocephin 1gm injection given in the office today as well as albuterol treatment. Instructed to continue with nebulizer treatments every 4 hours-samples of albuterol provided to patient. RX for levaquin sent to patient's pharmacy and instructed to start today. Instructed patient and to take a full tab today then 1/2 tab daily due to kidney function. Dehydration-instructed patient to increase his fluid intake. Called Dr. Ferro and discussed labs with her-recommend IVF normal saline 1 liter at the hospital today. Return to clinic in am for follow up. Hypotension-hold diovan-monitor blood pressure and call for any concerns. Instructed patient and to go to ER if symptoms worsen or do not improve. Will follow up with patient in the office tomorrow morning. Recheck labs in a.m. Recheck PT/INR next week. . Hypertension - well controlled - continue with current medications, continue with no added salt diet. Pt has been encouraged to exercise daily. The pt has been advised to call the office if there are any acute concerns about change in blood pressure readings at home. Hyperlipidemia - pt has been counseled about appropriate diet, exercise, and need for low fat food choices. I have discussed the need for the patient to take medications as prescribed. If the patient has negative side effects from the medication, they are to CALL the office and not abruptly discontinue the medication without discussion with a practitioner in the office. We will check labs in 3-6 months for follow up on the patient's chronic medical problem and to assure normal liver response to medications. . Hypertension - well controlled - continue with current medications, continue with no added salt diet. Pt has been encouraged to exercise daily. The pt has been advised to call the office if there are any acute concerns about change in blood pressure readings at home. Hyperlipidemia - pt has been counseled about appropriate diet, exercise, and need for low fat food choices. I have discussed the need for the patient to take medications as prescribed. If the patient has negative side effects from the medication, they are to CALL the office and not abruptly discontinue the medication without discussion with a practitioner in the office. We will check labs in 3-6 months for follow up on the patient's chronic medical problem and to assure normal liver response to medications. Discussed treatment options for high cholesterol - pt may benefit from treatment with new injectable medications. I sent 2 prescriptions to [facility]. Start the zithromax today-you will take 2 tabs and then 1 tab daily thereafter. Take the cefdinir once daily tonight and then tomorrow, start taking it twice daily. We gave you a shot today so that is why you only take it once today. You need to get a probiotic and take it twice daily while you are on the antibiotics. . Pneumonia-cough- Pt advised to increase fluids, vitamin C. Discussed natural and expected course of this diagnosis and need to alert me if symtpoms do not follow expected course, or if any worse. RX sent to patient's pharmacy and instructed on use. Andrews to go to the [facility] for chest xray and labs. He is to call or go to ER if his symptoms do not improve, or if ANY worse. Patient verbalized understanding of plan. Chronic renal disease-check labs and follow renal function closely. . Hypertension - well controlled - continue with current medications, continue with no added salt diet. Pt has been encouraged to exercise daily. The pt has been advised to call the office if there are any acute concerns about change in blood pressure readings at home. Hyperlipidemia - pt has been counseled about appropriate diet, exercise, and need for low fat food choices. I have discussed the need for the patient to take medications as prescribed. If the patient has negative side effects from the medication, they are to CALL the office and not abruptly discontinue the medication without discussion with a practicioner in the office. We will check labs in 3-6 months for follow up on the patient's chronic medical problem and to assure normal liver response to medications. PT AGREED TO START EXERCISE AT THE [facility] IN [place] AT LEAST THREE TIMES A WEEK. Change coumadin to 5mg on Wednesday/Wednesday//Wednesday/ Wednesday and 2.5mg (1/2) on Tuesdays and Increase Norvasc (Amlodipine) to 10mg daily Monitor your blood pressure at home and record. Bring in your readings to your next appointment, or as directed. Call for chest pain, shortness of breath, headaches, or other concerns. . Hypertension - uncontrolled - the patient's medications have been modified as documented in the visit note. The patient has been counseled to cut back on salt in diet for a no added salt diet, low fat diet, start an exercise program with low weight bearing exercises and higher aerobic activity for heart health. The patient is to check blood pressure readings as an outpatient and either fax , call, or email the readings to the office next week for practicioner to review. The pt is to call for acute concerns. Constipation - uncontrolled - I have discussed with the patient the need for adequate fiber and water intake to facilitate soft, easily passed stools. The pt noted understanding of our conversation. I have given the patient a recipe for "power pudding" - equal parts, bran flakes, prune juice, and apple sauce. The pt is to call if symptoms not improved on this regimen. Chronic Anticoagulant use - Pt has been counseled about the anticoagulant, need for serial monitoring, and need for the pt to alert the physician as to any new bruising, or acute bleeding. Theraputic goal for INR is between 2.0 and 3.5. restart lipitor restart trilipix restart diovan 320mg 1/2 pill daily, if pressures still above 140, then restart diovan 320mg twice daily. . Hypertension - uncontrolled - the patient's medications have been modified as documented in the visit note. The patient has been counseled to cut back on salt in diet for a no added salt diet, low fat diet, start an exercise program with low weight bearing exercises and higher aerobic activity for heart health. The patient is to check blood pressure readings as an outpatient and either fax , call, or email the readings to the office next week for practitioner to review. The pt is to call for acute concerns. restart diovan 320mg 1/2 pill daily, if pressures still above 140, then restart diovan 320mg twice daily. Hyperlipidemia - pt has been counseled about appropriate diet, exercise, and need for low fat food choices. I have discussed the need for the patient to take medications as prescribed. If the patient has negative side effects from the medication, they are to CALL the office and not abruptly discontinue the medication without discussion with a practitioner in the office. We will check labs in 3-6 months for follow up on the patient's chronic medical problem and to assure normal liver response to medications. restart lipitor restart trilipix Coumadin (warfarin)pills - take 5mg wednesday/wednesday/wednesday /wednesday/wednesday and 1/2 pill wednesday/ check inr in 2 weeks decrease norvasc to 5mg daily - what you currently have is a 10mg pill - cut it in 1/2 and take 1/2 pill daily - when your current 10mg supply runs out - change to the 5mg pills - the new rx has been sent to the pharmacy. talk to [facility] - [facility] and show you which machines and how much on each machine you should be working on and how often to do the machines. . Hypertension - too well controlled - Pt has been encouraged to exercise daily. The pt has been advised to call the office if there are any acute concerns about change in blood pressure readings at home. Pt has been instructed to decrease norvasc to 5mg daily - what you currently have is a 10mg pill - cut it in 1/2 and take 1/2 pill daily - when your current 10mg supply runs out - change to the 5mg pills - the new rx has been sent to the pharmacy. talk to [facility] - ask them to take [facility] and show you which machines and how much on each machine you should be working on and how often to do the machines. Coumadin (warfarin)pills - take 5mg wednesday/wednesday/wednesday/wednesday/wednesday and 1/2 pill wednesday/ check inr in 2 weeks . Hypertension - well controlled - continue with current medications, continue with no added salt diet. Pt has been encouraged to exercise daily. The pt has been advised to call the office if there are any acute concerns about change in blood pressure readings at home. Hyperlipidemia - pt has been counseled about appropriate diet, exercise, and need for low fat food choices. I have discussed the need for the patient to take medications as prescribed. If the patient has negative side effects from the medication, they are to CALL the office and not abruptly discontinue the medication without discussion with a practitioner in the office. We will check labs in 3-6 months for follow up on the patient's chronic medical problem and to assure normal liver response to medications. . Hypertension - uncontrolled - the pt has been anxious today - The patient has been counseled to cut back on salt in diet for a no added salt diet, low fat diet, start an exercise program with low weight bearing exercises and higher aerobic activity for heart health. The patient is to check blood pressure readings as an outpatient and either fax , call, or email the readings to the office next week for practicioner to review. The pt is to call for acute concerns. Pneumonia - Pt has been diagnosed with pneumonia by physical exam. Antibiotics have been ordered - The pt is aware of the diagnosis and the need for acute treatment of this illness. . Hypertension - well controlled - continue with current medications, continue with no added salt diet. Pt has been encouraged to exercise daily. The pt has been advised to call the office if there are any acute concerns about change in blood pressure readings at home. Hyperlipidemia - pt has been counseled about appropriate diet, exercise, and need for low fat food choices. I have discussed the need for the patient to take medications as prescribed. If the patient has negative side effects from the medication, they are to CALL the office and not abruptly discontinue the medication without discussion with a practicioner in the office. We will check labs in 3-6 months for follow up on the patient's chronic medical problem and to assure normal liver response to medications. His HDL cotinues to be low, unable to adjust his meds to improve the HDL despite being on multiple theraputic treatments. Continue to encouraged diet changes and exercise. Trigger Points - Injected trigger points today, pt given post-injection instructions, signs and symptoms for which to call the office. Pt to use heat to the muscles today, and take an anti-inflammatory today unless otherwise contraindicated by renal function or other disease process. Trigger point injections over the SI joints bilaterally . Diarrhea - persistent - Pt to start on probiotic three times daily x 2 weeks. Urinary urgency - pt to start on flomax Pt to restart several home medications, bring in blood pressure machine. . Hypertension - well controlled - continue with current medications, continue with no added salt diet. Pt has been encouraged to exercise daily. The pt has been advised to call the office if there are any acute concerns about change in blood pressure readings at home. Hyperlipidemia - pt has been counseled about appropriate diet, exercise, and need for low fat food choices. I have discussed the need for the patient to take medications as prescribed. If the patient has negative side effects from the medication, they are to CALL the office and not abruptly discontinue the medication without discussion with a practitioner in the office. We will check labs in 3-6 months for follow up on the patient's chronic medical problem and to assure normal liver response to medications. Neck pain - recommended massage, if not improving, then will have pt come in for trigger point injections. . Cellulitis-oral soft tissue-Dr Ferro in to evaluate patient-plan to start on clindamycin orally. Instructed the patient and his to call if symptoms do not completely resolve, or if they become any worse. Patient and verbalize understanding of plan. . Joint Injection - right SI joint - Pt was given post - injection instructions. The pt has been advised to use anti-inflammatories post injection today, ice to the injected site, call if redness, warmth, or increased pain occurs at the site of injection. . Hypertension - well controlled - continue with current medications, continue with no added salt diet. Pt has been encouraged to exercise daily. The pt has been advised to call the office if there are any acute concerns about change in blood pressure readings at home. Constipation - uncontrolled - I have discussed with the patient the need for adequate fiber and water intake to facilitate soft, easily passed stools. The pt noted understanding of our conversation.. Pt to start on senna s one twice daily. Cough - suspect is allergy related, no specific treatment at this time. continue to hold diovan, norvasc, trilipix and lipitor and niacin cut coreg (carvedilol) to 1/2 pill twice daily if heart rate jumps above 100 consistently for 24 hours, then call doctor for further instructions. Pt to see Dr. Graf at 3:30pm on Wednesday Pt to finish antibiotics and advance diet. . Pt to see Dr. Graf at 3:30pm on Wednesday Pt to finish antibiotics and advance diet. . Wound Instructions - Pt was instruced to keep the wound clean, wash with antibacterial soap, use triple antibiotic ointment, call if redness, pustular drainage, or any other acute conerns.
--- OUTSIDE RECORDS SUMMARY | 2017-09-13 12:24 | XMS REPORT | CCD ---
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 smoked cigars 4 daily x 20 years. quit totally Jan 2011 01/29/[address]: 046713384 Never drinks alcohol quit 198601/29/2011 Has the patient ever used illegal drugs? 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 TAKE 1/2 TABLET BY MOUTH ON THURSDAYS. 05/31/2017 04/02/2019 Active amlodipine 10 mg tablet RxNorm: 072241 Tablet(s) TAKE ONE TABLET BY MOUTH DAILY 05/25/2017 02/18/2018 Active valsartan 160 mg tablet RxNorm: 833960 TAKE ONE TABLET BY MOUTH DAILY 04/26/2017 10/22/2017 Active carvedilol 25 mg tablet RxNorm: 865915 TAKE ONE TABLET BY MOUTH TWICE A DAY 03/22/2017 12/16/2017 Active Flomax 0.4 mg capsule RxNorm: 723309 TAKE ONE CAPSULE BY MOUTH DAILY 03/15/2017 03/09/2018 Active amlodipine 10 mg tablet RxNorm: 397626 TAKE ONE TABLET BY MOUTH DAILY 02/25/2017 05/24/2017 Inactive fenofibrate nanocrystallized 145 mg tablet RxNorm: 705852 TAKE ONE TABLET BY MOUTH DAILY 02/09/2017 12/05/2017 Active valsartan 160 mg tablet RxNorm: 648731 TAKE ONE TABLET BY MOUTH DAILY 01/25/2017 04/25/2017 Inactive Lipitor 80 mg tablet RxNorm: 514946 TAKE ONE TABLET BY MOUTH AT BEDTIME 11/04/2016 10/29/2017 Active valsartan 160 mg tablet RxNorm: 140631 TAKE ONE TABLET BY MOUTH DAILY 10/21/2016 01/24/2017 Inactive fenofibrate nanocrystallized 145 mg tablet RxNorm: 441462 TAKE ONE TABLET BY MOUTH DAILY 10/06/2016 02/08/2017 Inactive amlodipine 10 mg tablet RxNorm: 776869 1 Tablet(s) PO daily 02/20/2017 Inactive amlodipine 10 mg tablet RxNorm: 198933 1 Tablet(s) PO daily 09/23/2016 Inactive carvedilol 25 mg tablet RxNorm: 579976 TAKE ONE TABLET BY MOUTH TWICE A DAY 09/22/2016 03/20/2017 Inactive Coumadin 5 mg tablet RxNorm: 564568 TAKE 1 TABLET BY MOUTH ON WEDNESDAY , WEDNESDAY, WEDNESDAY, WEDNESDAY AND SUNDAYS. TAKE 1/2 TABLET BY MOUTH ON THURSDAYS. 07/07/2016 04/02/2017 Inactive fenofibrate nanocrystallized 145 mg tablet RxNorm: 545275 TAKE ONE TABLET BY MOUTH DAILY 06/10/2016 10/05/2016 Inactive valsartan 160 mg tablet RxNorm: 815070 1 Tablet(s) PO daily 04/201610/16/2016 Inactive Flomax 0.4 mg capsule RxNorm: 562336 TAKE ONE CAPSULE BY MOUTH DAILY 04/10/2016 03/05/2017 Inactive carvedilol 25 mg tablet RxNorm: 472524 TAKE ONE TABLET BY MOUTH TWICE A DAY 03/23/2016 09/18/2016 Inactive fenofibrate nanocrystallized 145 mg tablet RxNorm: 671517 TAKE ONE TABLET BY MOUTH DAILY 01/14/2016 06/09/2016 Inactive Coumadin 5 mg tablet RxNorm: 900188 Tablet(s) take 5mg daily except 1/2 pill wednesday/wednesday12/19/2015 07/06/2016 Inactive Coumadin 5 mg tablet RxNorm: 295694 Tablet(s) take 5mg wednesday/wednesday/wednesday/ wednesday and 1/2 pill wednesday//wednesday12/18/2015 12/18/2015 Inactive Lipitor 80 mg tablet RxNorm: 876213 TAKE ONE TABLET BY MOUTH AT BEDTIME 11/11/2015 11/04/2016 Inactive Lipitor 80 mg tablet RxNorm: 234223 TAKE ONE TABLET BY MOUTH AT BEDTIME 11/11/2015 11/04/2016 Inactive Lipitor 80 mg tablet RxNorm: 461028 TAKE ONE TABLET BY MOUTH AT BEDTIME 11/11/2015 11/04/2016 Inactive Lipitor 80 mg tablet RxNorm: 894692 TAKE ONE TABLET BY MOUTH AT BEDTIME 11/11/2015 11/03/2016 Inactive Coumadin 5 mg tablet RxNorm: 432951 Tablet(s) TAKE 1 TABLET BY MOUTH DAILY 10/29/2015 10/28/2015 Inactive betamethasone dipropionate 0.05 % topical ointment RxNorm: 843575 1 Application TOP QID 10/29/2015 11/04/2015 Inactive amlodipine 5 mg tablet RxNorm: 953969 1 Tablet(s) PO daily 09/23/2016 Inactive Coumadin 5 mg tablet RxNorm: 943717 Tablet(s) take 5mg wednesday/wednesday/wednesday/ wednesday/wednesday and 1/2 pill wednesday/10/29/2015 12/17/2015 Inactive valsartan 160 mg tablet RxNorm: 443190 1 Tablet(s) PO daily 04/17/2016 Inactive Norvasc 10 mg tablet RxNorm: 609294 Tablet(s) TAKE ONE TABLET BY MOUTH EVERY DAY 10/01/2015 10/28/2015 Inactive Norvasc 10 mg tablet RxNorm: 152795 Tablet(s) TAKE ONE TABLET BY MOUTH EVERY DAY 09/30/2015 09/30/2015 Inactive carvedilol 25 mg tablet RxNorm: 065514 TAKE ONE TABLET BY MOUTH TWICE A DAY 09/24/2015 03/21/2016 Inactive Coumadin 5 mg tablet RxNorm: 176812 TAKE 1 TABLET BY MOUTH ON WEDNESDAY , WEDNESDAY, WEDNESDAY, WEDNESDAY AND SUNDAYS. TAKE 1/2 TABLET BY MOUTH ON THURSDAYS. 06/28/2015 10/28/2015 Inactive fenofibrate nanocrystallized 145 mg tablet RxNorm: 678795 1 Tablet(s) PO daily 06/25/2015 01/13/2016 Inactive Diovan 160 mg tablet RxNorm: 120397 TAKE ONE TABLET BY MOUTH EVERY MORNING 05/17/2015 06/24/2015 Inactive Keflex 500 mg capsule RxNorm: 851788 1 Capsule(s) PO TID 201405/05/2015 Inactive Keflex 500 mg capsule RxNorm: 950911 1 Capsule(s) PO TID 201404/28/2015 Inactive Trilipix 135 mg capsule,delayed release RxNorm: 950665 TAKE ONE CAPSULE BY MOUTH DAILY 04/08/2015 06/24/2015 Inactive Flomax 0.4 mg capsule RxNorm: 527237 TAKE ONE CAPSULE BY MOUTH DAILY 04/03/2015 03/27/2016 Inactive Flomax 0.4 mg capsule RxNorm: 300976 Capsule(s) TAKE ONE CAPSULE BY MOUTH DAILY 04/03/2015 04/02/2015 Inactive carvedilol 25 mg tablet RxNorm: 234485 1 Tablet(s) PO BID 03/2609/21/2015 Inactive Trilipix 135 mg capsule,delayed release RxNorm: 016572 1 Capsule(s) PO daily 03/04/2015 04/02/2015 Inactive Levaquin 500 mg tablet RxNorm: 350885 1 Tablet(s) PO daily 10/201402/18/2015 Inactive Levaquin 500 mg tablet RxNorm: 506851 1 Tablet(s) PO daily 04/201512/25/2014 Inactive Lipitor 80 mg tablet RxNorm: 946088 1 Tablet(s) PO QH 201411/07/2015 Inactive Lipitor 80 mg tablet RxNorm: 999500 1 Tablet(s) PO QH 201411/12/2014 Inactive Norvasc 10 mg tablet RxNorm: 173996 TAKE ONE TABLET BY MOUTH EVERY DAY 09/26/2014 09/20/2015 Inactive Flomax 0.4 mg capsule RxNorm: 805622 TAKE ONE CAPSULE BY MOUTH DAILY 09/13/2014 03/11/2015 Inactive Norvasc 10 mg tablet RxNorm: 215870 Tablet(s) PO TAKE ONE TABLET BY MOUTH EVERY DAY 08/23/2014 09/25/2014 Inactive [SAVINGS FOR NON-COVERED DRUGS -- BIN:[id number], PCN: ASPROD1, Group: XXXXX, ID# [id number], Questions: . THIS IS NOT INSURANCE.] Diovan 160 mg tablet RxNorm: 228210 1 Tablet(s) PO QAM 201402/17/2015 Inactive [SAVINGS FOR NON-COVERED DRUGS -- BIN:493155, PCN: ASPROD1, Group: XXXXX, ID # [id number], Questions: . THIS IS NOT INSURANCE.] Coumadin 5 mg tablet RxNorm: 035473 TAKE 1 TABLET BY MOUTH ON WEDNESDAY , WEDNESDAY, WEDNESDAY, WEDNESDAY AND SUNDAYS. TAKE 1/2 TABLET BY MOUTH ON THURSDAYS. 07/27/2014 06/21/2015 Inactive Diovan 160 mg tablet RxNorm: 243122 1/2 Tablet(s) PO BID 201408/21/2014 Inactive [SAVINGS FOR UNINSURED PATIENTS -- BIN:651140, PCN: ASPROD1, Group: AME08, ID # [id number], Process claim through MedImpact, for questions: . THIS IS NOT INSURANCE.] Diovan 320 mg tablet RxNorm: 819863 1/2 Tablet(s) PO BID 201305/22/2014 Inactive [SAVINGS FOR UNINSURED PATIENTS -- BIN:763386, PCN: ASPROD1, Group: [id number], ID # [id number], Process claim through MedImpact, for questions: . THIS IS NOT INSURANCE.] Flomax 0.4 mg capsule RxNorm: 784661 1 Capsule(s) PO daily 03/0509/12/2014 Inactive [SAVINGS FOR UNINSURED PATIENTS -- BIN:000442, PCN: ASPROD1, Group: [id number], ID# [id number], Process claim through MedImpact, for questions: . THIS IS NOT INSURANCE.] ciprofloxacin 500 mg tablet RxNorm: 978102 1 Tablet(s) PO BID 02/14/2014 02/23/2014 Inactive [SAVINGS FOR UNINSURED PATIENTS -- BIN:370174, PCN: ASPROD1, Group: [id number], ID# [id number], Process claim through MedImpact, for questions: [phone]. THIS IS NOT INSURANCE.] ciprofloxacin 500 mg tablet RxNorm: 206592 1 Tablet(s) PO BID 02/14/2014 02/13/2014 Inactive Flagyl 500 mg tablet RxNorm: 674030 1 Tablet(s) PO TID 201302/13/2014 Inactive Flagyl 500 mg tablet RxNorm: 505331 1 Tablet(s) PO TID 201302/23/2014 Inactive [SAVINGS FOR UNINSURED PATIENTS -- BIN:924612, PCN: ASPROD1, Group: [id number], ID # [id number], Process claim through MedImpact, for questions: . THIS IS NOT INSURANCE.] clindamycin 150 mg capsule RxNorm: 637459 1 Capsule(s) PO QID 02/13/2014 02/13/2014 Inactive [SAVINGS FOR UNINSURED PATIENTS -- BIN:814079, PCN: ASPROD1, Group: [id number], ID# [id number], Process claim through MedImpact, for questions: [phone]. THIS IS NOT INSURANCE.] Diovan 320 mg tablet RxNorm: 164518 1/2 Tablet(s) PO BID 201303/04/2014 Inactive [SAVINGS FOR UNINSURED PATIENTS -- BIN:469358, PCN: ASPROD1, Group: AME08, ID # [id number], Process claim through MedImpact, for questions: . THIS IS NOT INSURANCE.] triamcinolone acetonide 0.1 % topical ointment RxNorm: 5447662 1 Application TOP PRN 01/02/2014 01/01/2014 Inactive triamcinolone acetonide 0.1 % topical ointment RxNorm: 4999370 1 Application TOP PRN 01/02/2014 06/24/2015 Inactive [SAVINGS FOR UNINSURED PATIENTS -- BIN:342973, PCN: ASPROD1, Group: AME08, ID# [id number], Process claim through MedImpact, for questions: . THIS IS NOT INSURANCE.] Norvasc 10 mg tablet RxNorm: 010793 Tablet(s) PO TAKE ONE TABLET BY MOUTH EVERY DAY 08/28/2013 08/27/2013 Inactive Norvasc 10 mg tablet RxNorm: 237970 Tablet(s) PO TAKE ONE TABLET BY MOUTH EVERY DAY 08/28/2013 08/27/2013 Inactive Norvasc 10 mg tablet RxNorm: 475599 Tablet(s) PO TAKE ONE TABLET BY MOUTH EVERY DAY 08/28/2013 03/04/2014 Inactive Coumadin 5 mg tablet RxNorm: 597491 Tablet(s) PO TAKE ONE TABLET BY MOUTH ON WEDNESDAY, WED, WEDNESDAY, SAT. AND WEDNESDAY . TAKE 1/2 TABLET ON Thursdays07/10/2013 10/28/2015 Inactive Coumadin 5 mg tablet RxNorm: 032340 Tablet(s) PO TAKE ONE TABLET BY MOUTH ON WEDNESDAY, WED, WEDNESDAY, SAT. AND WEDNESDAY . TAKE 1/2 TABLET ON Thursdays07/10/2013 07/09/2013 Inactive Zithromax Z-Marcelo 250 mg tablet RxNorm: 772084 1 Tablet(s) PO UD 05/01/2013 05/05/2013 Inactive cefdinir 300 mg capsule RxNorm: 134452 1 Capsule(s) PO BID 05/07/2013 Inactive Senna-S 8.6 mg-50 mg tablet RxNorm: 118548 Tablet(s) PO TAKE ONE TABLET BY MOUTH TWICE A DAY 03/24/2013 03/04/2014 Inactive Senna-S 8.6 mg-50 mg tablet RxNorm: 720086 Tablet(s) PO TAKE ONE TABLET BY MOUTH TWICE A DAY 11/22/2012 03/23/2013 Inactive Norvasc 10 mg tablet RxNorm: 422911 Tablet(s) PO TAKE ONE TABLET BY MOUTH EVERY DAY 09/22/2012 08/27/2013 Inactive Coumadin 5 mg tablet RxNorm: 332649 Tablet(s) PO 07/04/2012 07/09/2013 Inactive 5mg Wed Frid Sat Sun2.5 levofloxacin 500 mg tablet RxNorm: 217100 1 Tablet(s) PO daily 1.5 pills daily on days #1, #2, then one pill daily thereafter 06/28/2012 07/02/2012 Inactive Levaquin 500 mg tablet RxNorm: 998211 Tablet(s) PO 1.5 tabs on day 1 & 2, 1 tab on days 3,4,5,6 06/28/2012 08/31/2012 Inactive 1.5 tabs on day 1 & 2, 1 tab on days 3,4,5,6 Coumadin 5 mg tablet RxNorm: 010206 Tablet(s) PO 06/20/2012 07/03/2012 Inactive 5mg Mon Wed Frid Sat Sun2.5 Thurs Coumadin 5 mg tablet RxNorm: 742520 Tablet(s) PO 05/25/2012 06/19/2012 Inactive 5mg Mon Wed Frid Sat Sun2.5 Tu Norvasc 10 mg tablet RxNorm: 433357 1 Tablet(s) PO 05/25/2012 09/21/2012 Inactive Senna-S 8.6 mg-50 mg tablet RxNorm: 640915 1 Tablet(s) PO BID 05/25/2012 11/20/2012 Inactive Senna-S 8.6 mg-50 mg tablet RxNorm: 932724 1 Tablet(s) PO BID 04/29/2012 05/24/2012 Inactive Kenalog 40 mg/mL Susp for Injection RxNorm: 1792371 Milliliter(s) Inj 03/17/2012 03/17/2012 Inactive cefdinir 300 mg capsule RxNorm: 852506 1 Capsule(s) PO BID 12/201103/23/2012 Inactive Rocephin 500 mg Solution for Injection RxNorm: 081896 Inj 03/1703/17/2012 Inactive Vitamin D2 50,000 unit Cap RxNorm: 525347 1 Capsule(s) PO QW 08/01/2015 Inactive 50,000 weekly for 3 months then 1000 units daily thereafter Senna-S 8.6 mg-50 mg tablet RxNorm: 076582 1 Tablet(s) PO BID 10/21/2011 04/17/2012 Inactive Coumadin 5 mg Tab RxNorm: 896918 Tablet(s) PO 06/15/2011 06/14/2011 Inactive 5mg Mon Wed Frid Sat2.5 Tu Th Sat Coumadin 5 mg tablet RxNorm: 694729 Tablet(s) PO 06/15/2011 05/24/2012 Inactive 5mg Mon Wed Frid Sat2.5 Tu Sun Norvasc 5 mg tablet RxNorm: 220196 1 Tablet(s) PO daily 201005/21/2012 Inactive Rocephin 1 gram Solution for Injection RxNorm: 792684 Inj 01/3010/21/2011 Inactive Levaquin 500 mg Tab RxNorm: 983387 1 Tablet(s) PO daily 201010/21/2011 Inactive Rocephin 1 gram Solution for Injection RxNorm: 669873 Inj 01/2901/29/2011 Inactive cyclobenzaprine 5 mg tablet RxNorm: 225937 1 Tablet(s) PO Q8 as needed No Start Date Active aspirin 81 mg Tab RxNorm: 933750 1 Tablet(s) PO daily No Start Date Active Centrum Silver Tab RxNorm: 1 Tablet(s) PO daily No Start Date Active melatonin 3 mg tablet RxNorm: 163325 1 Tablet(s) PO QHS No Start Date Active alprazolam 0.5 mg tablet RxNorm: 537166 1 Tablet(s) PO TID as needed No Start Date Active polyethylene glycol 3350 17 gram oral powder packet RxNorm: 511826 17 Gram(s) PO daily No Start Date Active Fish Oil 1,000 mg Cap RxNorm: 4 Capsule(s) PO QH No Start Date 06/24/2015 Inactive Miralax 17 gram Oral Powder Packet RxNorm: 426644 1 PO daily No Start Date 03/04/2014 Inactive carvedilol 25 mg Tab RxNorm: 606612 1 Tablet(s) PO BID No Start Date 03/25/2015 Inactive Diovan 320 mg tablet RxNorm: 894990 1/2 Tablet(s) PO BID No Start Date 02/11/2014 Inactive doxepin 25 mg Cap RxNorm: 7811859 Capsule(s) PO No Start Date 03/04/2014 Inactive one bid and 2 at hs valsartan 160 mg tablet RxNorm: 109218 1 Tablet(s) PO daily No Start Date 10/20/2015 Inactive promethazine-codeine 6.25 mg-10 mg/5 mL Syrup RxNorm: 867719 5-10 Milliliter(s) PO Q4 PRN No Start Date 10/21/2011 Inactive Diovan HCT 320 mg-12.5 mg Tab RxNorm: 448929 1/2 Tablet(s) PO BID No Start Date 05/25/2012 Inactive niacin ER 500 mg Tab RxNorm: 212007 2 Tablet(s) PO QH No Start Date 08/21/2014 Inactive Vitamin D2 50,000 unit Cap RxNorm: 418605 1 Capsule(s) PO QW No Start Date 10/22/2011 Inactive 50,000 weekly for 3 months then 1000 units daily thereafter Trilipix 135 mg Cap RxNorm: 082049 1 Capsule(s) PO daily No Start Date 08/13/2014 Inactive Lipitor 80 mg Tab RxNorm: 403590 1 Tablet(s) PO QH No Start Date 11/12/2014 Inactive Coumadin 5 mg Tab RxNorm: 313483 Tablet(s) PO No Start Date 06/14/2011 Inactive 5mg Wed Sat2.5 Sat Norvasc 5 mg Tab RxNorm: 326475 1 Tablet(s) PO daily No Start Date 04/27/2011 Inactive Flomax 0.4 mg 24 hr Cap RxNorm: 864160 1 Capsule(s) PO QH No Start Date 03/04/2014 Inactive Levaquin 500 mg tablet RxNorm: 540892 Tablet(s) PO 1.5 tabs on day 1 & 2, 1 tab on days 3,4,5,6 No Start Date 06/27/2012 Inactive albuterol sulfate 2.5 mg/3 mL (0.083 %) Neb Solution RxNorm: 488867 3 Milliliter(s ) INH Q4 PRN No Start Date 03/04/2014 Inactive Zithromax Z-Marcelo 250 mg tablet RxNorm: 978969 Tablet(s) PO UD No Start Date 10/31/2012 Inactive alprazolam 0.5 mg Tab RxNorm: 172182 Tablet(s) PO No Start Date 06/25/2015 Inactive 1- 3 daily 2 at hs Medication Administered Medication Codes Instructions Start Date Status Rocephin 500 mg Solution for Injection RxNorm: 458443 03/17/2012 No longer Active Kenalog 40 mg/mL Susp for Injection RxNorm: 4354454 Milliliter 03/17/2012 No longer Active Rocephin 1 gram Solution for Injection RxNorm: 232176 01/29/2011 No longer Active Immunizations Vaccine Codes Date Status Influenza CVX: 141 02/21/2016 completed Influenza CVX: 141 03/20/2015 completed Influenza CVX: 141 02/08/2014 completed Influenza CVX: 141 02/01/2013 completed Pneumococcal (Adult) CVX: 33 02/01/2013 completed Assessments Condition Codes Effective 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 ICD-10: Z79.01 ICD-9: V58.61 04/05/2017 Urinary tract infection, site not specified ICD-10: N39.0 ICD-9: 599.0 04/05/2017 Essential (primary) hypertension ICD-10: I10 ICD-9: 401.9 03/09/2017 Mixed hyperlipidemia ICD-10: E78.2 ICD-9: 272.4 03/09/2017 Low back pain ICD-10: M54.5 ICD-9: [...] of oral soft tissues ICD-9: 528.3 02/13/2014 FEVER NOS ICD-9: 780.60 01/18/2014 Dehydration ICD-9: 276.51 01/18/2014 Renal insufficiency ICD-9: 593.9 2013 Right lower quadrant abdominal pain ICD-9: 789.03 01/18/2014 Nausea alone ICD-9: 787.02 01/18/2014 Rebound tenderness ICD-9: 789.60 2013 Nodule of tongue ICD-9: 784.2 10/10/2013 COUGH ICD-9: 786.2 05/16/2013 PNEUMONIA (CAP) ICD-9: 486 05/01/2013 VAC STREP PNEUMONIAE-FLU ICD-9: V06.6 ACTINIC KERATOSIS ICD-9: 702.0 2012 CRP elevated ICD-9: 790.95 07/13/2012 Myalgia ICD-9: 729.1 07/13/2012 BACTERIAL PNEUMONIA NEC ICD-9: 482.89 Constipation [...] Code Item Item Code Result Date Pt [id number] PT 24.7 seconds 04/14/2017 Pt Ild4658 INR 2.2 04/14/2017 Pt Guv4033 Low Intensity - 1.5-2.0 04/14/2017 Pt Qfq6929 Mod intensity - 2.0-3.0 04/14/2017 Pt Puk9737 Hi intensity - 3.0-4.0 04/14/2017 Cbc With Differential Ord2 WBC 6.55 K/ul 04/14/2017 Cbc With Differential Ord2 RBC 4.63 M/ul 04/14/2017 Cbc With Differential Ord2 HGB 12.8 g/dl 04/14/2017 Cbc With Differential Ord2 Neut% 65.0 % 04/14/2017 Cbc With Differential Ord2 HCT 37.6 % 04/14/2017 Cbc With Differential Ord2 MCV 81.2 fl 04/14/2017 Cbc With Differential Ord2 Lymph% 25.5 % 04/14/2017 Cbc With Differential Ord2 MCH 27.6 pg 04/14/2017 Cbc With Differential Ord2 [place]% 7.3 % 04/14/2017 Cbc With Differential Ord2 MCHC 34.0 pg 04/14/2017 Cbc With Differential Ord2 Eos% 2.0 % 04/14/2017 Cbc With Differential Ord2 PLT 304 K/ul 04/14/2017 Cbc With Differential Ord2 Baso% 0.2 % 04/14/2017 Cbc With Differential Ord2 RDW 18.5 % 04/14/2017 Cbc With Differential Ord2 Neut ABS# 4.26 K/ul 04/14/2017 Cbc With Differential Ord2 Lymph ABS# 1.67 K/ul 04/14/2017 Cbc With Differential Ord2 [place] ABS# 0.5 K/ul 04/14/2017 Cbc With Differential Ord2 Eos ABS# 0.1 K/ul 04/14/2017 Cbc With Differential Ord2 Baso ABS# 0.0 K/ul 04/14/2017 Urine Culture Ucult Preliminary NO Growth Day 1 04/07/2017 Urine Culture Ucult Complete NO Growth Day 2 04/07/2017 Pt Azt7271 PT 33.2 seconds 04/05/2017 Pt Tnl4915 INR 3.2 04/05/2017 Pt Rge0880 Low Intensity - 1.5-2.0 04/05/2017 Pt Fvn0323 Mod intensity - 2.0-3.0 04/05/2017 Pt Yzx7657 Hi intensity - 3.0-4.0 04/05/2017 Cbc With [...] 82.4 fl 03/08/2017 Cbc With Differential Ord2 [place]% 7.4 % 03/08/2017 Cbc With Differential Ord2 MCH 27.9 pg 03/08/2017 Cbc With Differential Ord2 Eos% 1.4 % 03/08/2017 Cbc With Differential Ord2 MCHC 33.9 pg 03/08/2017 Cbc With Differential Ord2 PLT 258 K/ul 03/08/2017 Cbc With Differential Ord2 Baso% 0.2 % 03/08/2017 Cbc With Differential Ord2 RDW 18.0 % 03/08/2017 Cbc With Differential Ord2 Neut ABS# 4.28 K/ul 03/08/2017 Cbc With Differential Ord2 Lymph ABS# 1.41 K/ul 03/08/2017 Cbc With Differential Ord2 [place] ABS# 0.5 K/ul 03/08/2017 Cbc With Differential Ord2 Eos ABS# 0.1 K/ul 03/08/2017 Cbc With Differential Ord2 Baso ABS# 0.0 K/ul 03/08/2017 Pt Pdc9870 PT 30.5 seconds 03/08/2017 Pt Rwz6982 INR 2.9 03/08/2017 Pt Eql7612 Low Intensity - 1.5-2.0 03/08/2017 Pt Iqr8155 Mod intensity - 2.0-3.0 03/08/2017 Pt Tms3690 Hi intensity - 3.0-4.0 03/08/2017 Tsh Ord6 hTSH II 2.02 uIU/mL 03/08/2017 Lipid Ord30 CHOL 78 mg/dL 03/08/2017 Lipid Ord30 HDL 17.0 mg/dl 03/08/2017 Lipid Ord30 TRIG 84 mg/dL 03/08/2017 Lipid Ord30 LDL 44 mg/dL 03/08/2017 Lipid Ord30 C/HDL 4.6 Ratio 03/08/2017 Comp Metabolic Mye284 NA 142 mEq/L 03/08/2017 Comp Metabolic Iqq792 K 4.3 mEq/L 03/08/2017 Comp Metabolic Sup010 CL 110 mEq/L 03/08/2017 Comp Metabolic Lsv057 CO2 24.0 mEq/L 03/08/2017 Comp Metabolic Gyg770 ANION GAP 12 03/08/2017 Comp Metabolic Vpy029 GLUCOSE 110 mg/dL 03/08/2017 Comp Metabolic Agg702 Creat 1.0 mg/dL 03/08/2017 Comp Metabolic Wpy887 eGFR 74 ml/min/1.73m2 03/08/2017 Comp Metabolic Xkv780 BUN 20 mg/dL 03/08/2017 Comp Metabolic Pdj674 B/C Ratio 19.4 Ratio 03/08/2017 Comp Metabolic Icv181 CALCIUM 8.9 mg/dL 03/08/2017 Comp Metabolic Rqa329 ALK PHOS 42 U/L 03/08/2017 Comp Metabolic Ulh091 AST(SGOT) 18 U/L 03/08/2017 Comp Metabolic Uqh403 ALT(SGPT) 14 U/L 03/08/2017 Comp Metabolic Viz497 BILI T 0.7 mg/dL 03/08/2017 Comp Metabolic Fww919 ALBUMIN 4.1 g/dL 03/08/2017 Comp Metabolic Srk183 TPRO 7.2 g/dL 03/08/2017 Comp Metabolic Axh914 GLOB 3.1 g/dL 03/08/2017 Comp Metabolic Wgy944 A/G Ratio 1.3 Ratio 03/08/2017 Comp Metabolic Myg915 Osmo 286 mOsmo 03/08/2017 Comp Metabolic Hyr140 NA 140 mEq/L 12/02/2016 Comp Metabolic Ppj939 K 4.1 mEq/L 12/02/2016 Comp Metabolic Vyr528 CL 109 mEq/L 12/02/2016 Comp Metabolic Gqw753 CO2 23.0 mEq/L 12/02/2016 Comp Metabolic Pyo233 ANION GAP 12 12/02/2016 Comp Metabolic Aqe207 GLUCOSE 117 mg/dL 12/02/2016 Comp Metabolic Cwo266 Creat 1.2 mg/dL 12/02/2016 Comp Metabolic Wnl844 eGFR 64 ml/min/1.73m2 12/02/2016 Comp Metabolic Uyh572 BUN 18 mg/dL 12/02/2016 Comp Metabolic Hgo470 B/C Ratio 15.3 Ratio 12/02/2016 Comp Metabolic Ams998 CALCIUM 9.7 mg/dL 12/02/2016 Comp Metabolic Tjm476 ALK PHOS 34 U/L 12/02/2016 Comp Metabolic Eqh546 AST(SGOT) 21 U/L 12/02/2016 Comp Metabolic Aoy154 ALT(SGPT) 17 U/L 12/02/2016 Comp Metabolic Etu047 BILI T 0.6 mg/dL 12/02/2016 Comp Metabolic Bns203 ALBUMIN 4.2 g/dL 12/02/2016 Comp Metabolic Olv049 TPRO 7.6 g/dL 12/02/2016 Comp Metabolic Iqa743 GLOB 3.4 g/dL 12/02/2016 Comp Metabolic Vod813 A/G Ratio 1.3 Ratio 12/02/2016 Comp Metabolic Lic915 Osmo 282 mOsmo 12/02/2016 Lipid Ord30 CHOL [...] 80.3 fl 12/02/2016 Cbc With Differential Ord2 [place]% 7.6 % 12/02/2016 Cbc With Differential Ord2 MCH 27.7 pg 12/02/2016 Cbc With Differential Ord2 Eos% 1.9 % 12/02/2016 Cbc With Differential Ord2 MCHC 34.5 pg 12/02/2016 Cbc With Differential Ord2 PLT 312 K/ul 12/02/2016 Cbc With Differential Ord2 Baso% 0.0 % 12/02/2016 Cbc With Differential Ord2 RDW 21.2 % 12/02/2016 Cbc With Differential Ord2 Neut ABS# 4.54 K/ul 12/02/2016 Cbc With Differential Ord2 Lymph ABS# 1.98 K/ul 12/02/2016 Cbc With Differential Ord2 [place] ABS# 0.6 K/ul 12/02/2016 Cbc With Differential Ord2 Eos ABS# 0.1 K/ul 12/02/2016 Cbc With Differential Ord2 Baso ABS# 0.0 K/ul 12/02/2016 Tsh Ord6 hTSH II 1.65 uIU/mL 12/02/2016 Pt Kxw5498 PT 23.4 seconds 11/26/2016 Pt Xip7198 INR 2.2 11/26/2016 Pt Edx9056 Low Intensity - 1.5-2.0 11/26/2016 Pt Yri5722 Mod intensity - 2.0-3.0 11/26/2016 Pt Fof3241 Hi intensity - 3.0-4.0 11/26/2016 Tsh Ord6 hTSH II 1.66 uIU/mL 08/03/2016 Pt [id number] PT 21.6 seconds 08/03/2016 Pt [id number] INR 2.0 08/03/2016 Pt Ijv4968 Low Intensity - 1.5-2.0 08/03/2016 Pt [id number] Mod intensity - 2.0-3.0 08/03/2016 Pt [id number] Hi intensity - 3.0-4.0 08/03/2016 Cbc With Differential Ord2 WBC 6.24 K/ul 08/03/2016 Cbc With Differential Ord2 RBC 4.87 M/ul 08/03/2016 Cbc With Differential Ord2 HGB 13.3 g/dl 08/03/2016 Cbc With Differential Ord2 Neut% 69.3 % 08/03/2016 Cbc With Differential Ord2 HCT 39.4 % 08/03/2016 Cbc With Differential Ord2 MCV 80.9 fl 08/03/2016 Cbc With Differential Ord2 Lymph% 20.5 % 08/03/2016 Cbc With Differential Ord2 MCH 27.3 pg 08/03/2016 Cbc With Differential Ord2 [place]% 7.9 % 08/03/2016 Cbc With Differential Ord2 [...] 1.28 K/ul 08/03/2016 Cbc With Differential Ord2 [place] ABS# 0.5 K/ul 08/03/2016 Cbc With Differential Ord2 Eos ABS# 0.1 K/ul 08/03/2016 Cbc With Differential Ord2 Baso ABS# 0.0 K/ul 08/03/2016 Lipid Ord30 CHOL 85 mg/dL 08/03/2016 Lipid Ord30 HDL 17.0 mg/dl 08/03/2016 Lipid Ord30 TRIG 104 mg/dL 08/03/2016 Lipid Ord30 LDL 47 mg/dL 08/03/2016 Lipid Ord30 C/HDL 5.0 Ratio 08/03/2016 Comp Metabolic [id number] NA 139 mEq/L 08/03/2016 Comp Metabolic [id number] K 3.9 mEq/L 08/03/2016 Comp Metabolic Zln392 CL 109 mEq/L 08/03/2016 Comp Metabolic Lrj949 CO2 22.0 mEq/L 08/03/2016 Comp Metabolic Jru071 ANION GAP 12 08/03/2016 Comp Metabolic Xwu278 GLUCOSE 109 mg/dL 08/03/2016 Comp Metabolic Fat385 Creat 1.0 mg/dL 08/03/2016 Comp Metabolic Xbw253 eGFR 82 ml/min/1.73m2 08/03/2016 Comp Metabolic Zsf223 BUN 20 mg/dL 08/03/2016 Comp Metabolic Var534 B/C Ratio 21.1 Ratio 08/03/2016 Comp Metabolic Tdw457 CALCIUM 9.3 mg/dL 08/03/2016 Comp Metabolic Bou132 ALK PHOS 44 U/L 08/03/2016 Comp Metabolic Xma372 AST(SGOT) 18 U/L 08/03/2016 Comp Metabolic Cjq882 ALT(SGPT) 14 U/L 08/03/2016 Comp Metabolic Gvk732 BILI T 0.8 mg/dL 08/03/2016 Comp Metabolic Ujz184 ALBUMIN 4.0 g/dL 08/03/2016 Comp Metabolic Zwe519 TPRO 7.2 g/dL 08/03/2016 Comp Metabolic Wnj919 GLOB 3.2 g/dL 08/03/2016 Comp Metabolic Dbg155 A/G Ratio 1.2 Ratio 08/03/2016 Comp Metabolic Zjv351 Osmo 281 mOsmo 08/03/2016 Pt Aoy6530 PT 23.2 seconds 04/06/2016 Pt Suy4622 INR 2.2 04/06/2016 Pt Tos2379 Low Intensity - 1.5-2.0 04/06/2016 Pt Nve2980 Mod intensity - 2.0-3.0 04/06/2016 Pt Bpx2413 Hi intensity - 3.0-4.0 04/06/2016 Tsh Ord6 hTSH II 1.87 uIU/mL 04/06/2016 Comp Metabolic Ger879 NA 140 mEq/L 04/06/2016 Comp Metabolic Ldr769 K 4.2 mEq/L 04/06/2016 Comp Metabolic Foh332 CL 108 mEq/L 04/06/2016 Comp Metabolic Snd823 CO2 22.0 mEq/L 04/06/2016 Comp Metabolic Rre652 ANION GAP 14 04/06/2016 Comp Metabolic Kaw117 GLUCOSE 95 mg/dL 04/06/2016 Comp Metabolic Xrb108 Creat 1.1 mg/dL 04/06/2016 Comp Metabolic Kmp002 eGFR 69 ml/min/1.73m2 04/06/2016 Comp Metabolic Ktf722 BUN 19 mg/dL 04/06/2016 Comp Metabolic Vow407 B/C Ratio 17.3 Ratio 04/06/2016 Comp Metabolic Pfh681 CALCIUM 9.5 mg/dL 04/06/2016 Comp Metabolic Mah598 ALK PHOS 34 U/L 04/06/2016 Comp Metabolic Sfp646 AST(SGOT) 20 U/L 04/06/2016 Comp Metabolic Hrc046 ALT(SGPT) 18 U/L 04/06/2016 Comp Metabolic Zfm210 BILI T 0.8 mg/dL 04/06/2016 Comp Metabolic Egz897 ALBUMIN 4.2 g/dL 04/06/2016 Comp Metabolic Xws266 TPRO 7.7 g/dL 04/06/2016 Comp Metabolic Vil923 GLOB 3.5 g/dL 04/06/2016 Comp Metabolic Cpe186 A/G Ratio 1.2 Ratio 04/06/2016 Comp Metabolic Svo487 Osmo 281 mOsmo 04/06/2016 Cbc With Differential Ord2 WBC 7.07 K/ul 04/06/2016 Cbc With Differential Ord2 RBC 5.08 M/ul 04/06/2016 Cbc With Differential Ord2 HGB 13.8 g/dl 04/06/2016 Cbc With Differential Ord2 Neut% 67.8 % 04/06/2016 Cbc With Differential Ord2 HCT 41.2 % 04/06/2016 Cbc With Differential Ord2 Lymph% 24.0 % 04/06/2016 Cbc With Differential Ord2 MCV 81.1 fl 04/06/2016 Cbc With Differential Ord2 MCH 27.2 pg 04/06/2016 Cbc With Differential Ord2 [place]% 6.4 % 04/06/2016 Cbc With Differential Ord2 [...] 1.70 K/ul 04/06/2016 Cbc With Differential Ord2 [place] ABS# 0.5 K/ul 04/06/2016 Cbc With Differential Ord2 Eos ABS# 0.1 K/ul 04/06/2016 Cbc With Differential Ord2 Baso ABS# 0.0 K/ul 04/06/2016 Pt Ila7408 PT 33.1 seconds 03/20/2016 Pt Wkd8709 INR 3.5 03/20/2016 Pt Ucr3776 Low Intensity - 1.5-2.0 03/20/2016 Pt Zgc2607 Mod intensity - 2.0-3.0 03/20/2016 Pt Rgh2896 Hi intensity - 3.0-4.0 03/20/2016 Pt Jjo3973 PT 30.3 seconds 03/06/2016 Pt Ikz8201 INR 3.1 03/06/2016 Pt Drz7895 Low Intensity - 1.5-2.0 03/06/2016 Pt Qvu8905 Mod intensity - 2.0-3.0 03/06/2016 Pt Utw0192 Hi intensity - 3.0-4.0 03/06/2016 Pt Aao0855 PT 33.5 seconds 02/21/2016 Pt Ecy9425 INR 3.6 02/21/2016 Pt Ylz7438 Low Intensity - 1.5-2.0 02/21/2016 Pt Lak3843 Mod intensity - 2.0-3.0 02/21/2016 Pt Enj5407 Hi intensity - 3.0-4.0 02/21/2016 Lipid Ord30 CHOL 104 mg/dL 01/30/2016 Lipid Ord30 HDL 19.0 mg/dl 01/30/2016 Lipid Ord30 TRIG 137 mg/dL 01/30/2016 Lipid Ord30 LDL 58 mg/dL 01/30/2016 Lipid Ord30 C/HDL 5.5 Ratio 01/30/2016 Pt Oqr9987 PT 22.3 seconds 01/30/2016 Pt Ebp4826 INR 2.1 01/30/2016 Pt Yko3266 Low Intensity - 1.5-2.0 01/30/2016 Pt Nha2993 Mod intensity - 2.0-3.0 01/30/2016 Pt Lqh2161 Hi intensity - 3.0-4.0 01/30/2016 Comp Metabolic Ckp223 NA 136 mEq/L 01/30/2016 Comp Metabolic Djt781 K 4.0 mEq/L 01/30/2016 Comp Metabolic Hop296 CL 103 mEq/L 01/30/2016 Comp Metabolic Iun443 CO2 27.0 mEq/L 01/30/2016 Comp Metabolic Rve326 ANION GAP 10 01/30/2016 Comp Metabolic Ftp403 GLUCOSE 106 mg/dL 01/30/2016 Comp Metabolic Fhq887 Creat 1.3 mg/dL 01/30/2016 Comp Metabolic Sqo515 eGFR 60 ml/min/1.73m2 01/30/2016 Comp Metabolic Zpe255 BUN 22 mg/dL 01/30/2016 Comp Metabolic Fni222 B/C Ratio 17.6 Ratio 01/30/2016 Comp Metabolic Zaa300 CALCIUM 9.7 mg/dL 01/30/2016 Comp Metabolic Vfv945 ALK PHOS 29 U/L 01/30/2016 Comp Metabolic Uze061 AST(SGOT) 19 U/L 01/30/2016 Comp Metabolic Tpc774 ALT(SGPT) 16 U/L 01/30/2016 Comp Metabolic Fyt072 BILI T 0.6 mg/dL 01/30/2016 Comp Metabolic Bqh870 ALBUMIN 4.4 g/dL 01/30/2016 Comp Metabolic Ghp084 TPRO 7.5 g/dL 01/30/2016 Comp Metabolic Qqx121 GLOB 3.1 g/dL 01/30/2016 Comp Metabolic Wow735 A/G Ratio 1.4 Ratio 01/30/2016 Comp Metabolic Tdx178 Osmo 276 mOsmo 01/30/2016 Cbc With Differential Ord2 WBC 6.49 K/ul 01/30/2016 Cbc With Differential Ord2 RBC 4.83 M/ul 01/30/2016 Cbc With Differential Ord2 HGB 13.7 g/dl 01/30/2016 Cbc With Differential Ord2 Neut% 70.2 % 01/30/2016 Cbc With Differential Ord2 HCT 40.9 % 01/30/2016 Cbc With Differential Ord2 Lymph% 21.9 % 01/30/2016 Cbc With Differential Ord2 MCV 84.7 fl 01/30/2016 Cbc With Differential Ord2 MCH 28.4 pg 01/30/2016 Cbc With Differential Ord2 [place]% 6.2 % 01/30/2016 Cbc With Differential Ord2 Eos% 1.5 % 01/30/2016 Cbc With Differential Ord2 MCHC 33.5 pg 01/30/2016 Cbc With Differential Ord2 PLT 314 K/ul 01/30/2016 Cbc With Differential Ord2 Baso% 0.2 % 01/30/2016 Cbc With Differential Ord2 RDW 16.7 % 01/30/2016 Cbc With Differential Ord2 Neut ABS# 4.56 K/ul 01/30/2016 Cbc With Differential Ord2 Lymph ABS# 1.42 K/ul 01/30/2016 Cbc With Differential Ord2 [place] ABS# 0.4 K/ul 01/30/2016 Cbc With Differential Ord2 Eos ABS# 0.1 K/ul 01/30/2016 Cbc With Differential Ord2 Baso ABS# 0.0 K/ul 01/30/2016 Pt Edx2408 PT 35.2 seconds 12/17/2015 Pt Vbl8706 INR 3.8 12/17/2015 Pt Uzi2003 Low Intensity - 1.5-2.0 12/17/2015 Pt Xqw1749 Mod intensity - 2.0-3.0 12/17/2015 Pt Lgz1059 Hi intensity - 3.0-4.0 12/17/2015 Comp Metabolic Seq465 NA 140 mEq/L 10/25/2015 Comp Metabolic Shw672 K 4.2 mEq/L 10/25/2015 Comp Metabolic Oud927 CL 107 mEq/L 10/25/2015 Comp Metabolic Txj434 CO2 25.0 mEq/L 10/25/2015 Comp Metabolic Mgz737 ANION GAP 12 10/25/2015 Comp Metabolic Sgc798 GLUCOSE 105 mg/dL 10/25/2015 Comp Metabolic Iof713 Creat 1.2 mg/dL 10/25/2015 Comp Metabolic Gey725 eGFR 61 ml/min/1.73m2 10/25/2015 Comp Metabolic Ene687 BUN 31 mg/dL 10/25/2015 Comp Metabolic Soo215 B/C Ratio 25.4 Ratio 10/25/2015 Comp Metabolic Nbl140 CALCIUM 9.5 mg/dL 10/25/2015 Comp Metabolic Aza145 ALK PHOS 37 U/L 10/25/2015 Comp Metabolic Nws525 AST(SGOT) 23 U/L 10/25/2015 Comp Metabolic Ywh400 ALT(SGPT) 23 U/L 10/25/2015 Comp Metabolic Ete059 BILI T 0.6 mg/dL 10/25/2015 Comp Metabolic Esy259 ALBUMIN 4.2 g/dL 10/25/2015 Comp Metabolic Ovl409 TPRO 7.1 g/dL 10/25/2015 Comp Metabolic Dtn888 GLOB 3.0 g/dL 10/25/2015 Comp Metabolic Ovf022 A/G Ratio 1.4 Ratio 10/25/2015 Comp Metabolic Eip573 Osmo 286 mOsmo 10/25/2015 Pt Lfu6106 PT 29.9 seconds 10/25/2015 Pt Hdb6580 INR 3.1 10/25/2015 Pt Bkq6723 Low Intensity - 1.5-2.0 10/25/2015 Pt Kjj8775 Mod intensity - 2.0-3.0 10/25/2015 Pt Lxd1974 Hi intensity - 3.0-4.0 10/25/2015 Tsh Ord6 [...] 13.8 g/dl 10/25/2015 Cbc With Differential Ord2 HCT 40.5 % 10/25/2015 Cbc With Differential Ord2 Neut% 68.3 % 10/25/2015 Cbc With Differential Ord2 MCV 83.0 fl 10/25/2015 Cbc With Differential Ord2 Lymph% 21.1 % 10/25/2015 Cbc With Differential Ord2 MCH 28.3 pg 10/25/2015 Cbc With Differential Ord2 [place]% 8.7 % 10/25/2015 Cbc With Differential Ord2 MCHC 34.1 pg 10/25/2015 Cbc With Differential Ord2 Eos% 1.8 % 10/25/2015 Cbc With Differential Ord2 Baso% 0.1 % 10/25/2015 Cbc With Differential Ord2 PLT 309 K/ul 10/25/2015 Cbc With Differential Ord2 RDW 20.1 % 10/25/2015 Cbc With Differential Ord2 Neut ABS# 5.19 K/ul 10/25/2015 Cbc With Differential Ord2 Lymph ABS# 1.60 K/ul 10/25/2015 Cbc With Differential Ord2 [place] ABS# 0.7 K/ul 10/25/2015 Cbc With Differential Ord2 Eos ABS# 0.1 K/ul 10/25/2015 Cbc With Differential Ord2 Baso ABS# 0.0 K/ul 10/25/2015 Pt Rng3880 PT 31.8 seconds 09/26/2015 Pt Xdz0380 INR 3.3 09/26/2015 Pt Kmx2475 Low Intensity - 1.5-2.0 09/26/2015 Pt Xak0461 Mod intensity - 2.0-3.0 09/26/2015 Pt Bim4402 Hi intensity - 3.0-4.0 09/26/2015 Pt Ckp9360 PT 15.7 seconds 09/10/2015 Pt Lxa6865 INR 1.3 09/10/2015 Pt Flb5892 Low Intensity - 1.5-2.0 09/10/2015 Pt Knl5712 Mod intensity - 2.0-3.0 09/10/2015 Pt Dzn3233 Hi intensity - 3.0-4.0 09/10/2015 Pt Upe9358 PT 22.0 seconds 08/27/2015 Pt Ddu7418 INR 2.0 08/27/2015 Pt Biw8493 Low Intensity - 1.5-2.0 08/27/2015 Pt Ayk9487 Mod intensity - 2.0-3.0 08/27/2015 Pt Tnz6488 Hi intensity - 3.0-4.0 08/27/2015 Pt Aup7872 PT 22.0 seconds 03/20/2015 Pt Ydl3028 INR 2.0 03/20/2015 Pt Nkh5959 Low Intensity - 1.5-2.0 03/20/2015 Pt Ool1019 Mod intensity - 2.0-3.0 03/20/2015 Pt Ciu9753 Hi intensity - 3.0-4.0 03/20/2015 Comp Metabolic Psc900 NA 140 mEq/L 03/20/2015 Comp Metabolic Gpf072 K 4.3 mEq/L 03/20/2015 Comp Metabolic Zjw963 CL 109 mEq/L 03/20/2015 Comp Metabolic Myz035 CO2 22.0 mEq/L 03/20/2015 Comp Metabolic Ixx409 ANION GAP 13 03/20/2015 Comp Metabolic Tke296 GLUCOSE 100 mg/dL 03/20/2015 Comp Metabolic Lka019 Creat 1.1 mg/dL 03/20/2015 Comp Metabolic Pfi969 eGFR 67 ml/min/1.73m2 03/20/2015 Comp Metabolic Wcq997 BUN 18 mg/dL 03/20/2015 Comp Metabolic Rkl798 B/C Ratio 15.9 Ratio 03/20/2015 Comp Metabolic Hms625 CALCIUM 9.3 mg/dL 03/20/2015 Comp Metabolic Htm302 ALK PHOS 41 U/L 03/20/2015 Comp Metabolic Tii240 AST(SGOT) 21 U/L 03/20/2015 Comp Metabolic Upb252 ALT(SGPT) 19 U/L 03/20/2015 Comp Metabolic Coi276 BILI T 0.8 mg/dL 03/20/2015 Comp Metabolic Xdb722 ALBUMIN 4.3 g/dL 03/20/2015 Comp Metabolic Asp230 TPRO 7.5 g/dL 03/20/2015 Comp Metabolic Flo626 GLOB 3.2 g/dL 03/20/2015 Comp Metabolic Eol356 A/G Ratio 1.4 Ratio 03/20/2015 Comp Metabolic Uza710 Osmo 281 mOsmo 03/20/2015 Tsh Ord6 hTSH II 1.69 uIU/mL 03/20/2015 Lipid Ord30 CHOL 89 mg/dL 03/20/2015 [...] With Differential Ord2 RDW 18.1 % 03/20/2015 Pt Pgg4585 PT 23.7 seconds 02/20/2015 Pt Nrg5744 INR 2.2 02/20/2015 Pt Zsh8775 Low Intensity - 1.5-2.0 02/20/2015 Pt Vld1820 Mod intensity - 2.0-3.0 02/20/2015 Pt Fbo4901 Hi intensity - 3.0-4.0 02/20/2015 Pt Ewl1934 PT 23.6 seconds 02/15/2015 Pt Bzr2068 INR 2.2 02/15/2015 Pt Gvj2472 Low Intensity - 1.5-2.0 02/15/2015 Pt Mrc3774 Mod intensity - 2.0-3.0 02/15/2015 Pt Tvd1336 Hi intensity - 3.0-4.0 02/15/2015 Pt Zdt1890 PT 25.2 seconds 02/12/2015 Pt Ynh8850 INR 2.4 02/12/2015 Pt Hyh7524 Low Intensity - 1.5-2.0 02/12/2015 Pt Mqe2544 Mod intensity - 2.0-3.0 02/12/2015 Pt Cys5734 Hi intensity - 3.0-4.0 02/12/2015 Pt Rse8065 PT 25.8 seconds 12/27/2014 Pt Bmb8082 INR 2.4 12/27/2014 Pt Gzx1566 Low Intensity - 1.5-2.0 12/27/2014 Pt Uyn7562 Mod intensity - 2.0-3.0 12/27/2014 Pt Gww0928 Hi intensity - 3.0-4.0 12/27/2014 Pt Eul3430 PT 26.4 seconds 12/18/2014 Pt Zsi8963 INR 2.5 12/18/2014 Pt Sit4592 Low Intensity - 1.5-2.0 12/18/2014 Pt Wxp0292 Mod intensity - 2.0-3.0 12/18/2014 Pt Wdm0364 Hi intensity - 3.0-4.0 12/18/2014 Cbc With [...] With Differential Ord2 RDW 18.3 % 12/18/2014 Lipid Ord30 CHOL 85 mg/dL 12/18/2014 Lipid Ord30 HDL 22.0 mg/dl 12/18/2014 Lipid Ord30 TRIG 89 mg/dL 12/18/2014 Lipid Ord30 LDL 45 mg/dL 12/18/2014 Lipid Ord30 C/HDL 3.9 Ratio 12/18/2014 Comp Metabolic Njj398 NA 138 mEq/L 12/18/2014 Comp Metabolic Lej304 K 4.3 mEq/L 12/18/2014 Comp Metabolic Ziz471 CL 107 mEq/L 12/18/2014 Comp Metabolic Nub350 CO2 25.0 mEq/L 12/18/2014 Comp Metabolic Rbi094 ANION GAP 10 12/18/2014 Comp Metabolic Qmx226 GLUCOSE 105 mg/dL 12/18/2014 Comp Metabolic Yaj774 Creat 1.1 mg/dL 12/18/2014 Comp Metabolic Tlr424 eGFR 69 ml/min/1.73m2 12/18/2014 Comp Metabolic Rin927 BUN 16 mg/dL 12/18/2014 Comp Metabolic Zut068 B/C Ratio 14.5 Ratio 12/18/2014 Comp Metabolic Dcd171 CALCIUM 9.9 mg/dL 12/18/2014 Comp Metabolic Cnw249 ALK PHOS 39 U/L 12/18/2014 Comp Metabolic Xio861 AST(SGOT) 19 U/L 12/18/2014 Comp Metabolic Fpc626 ALT(SGPT) 18 U/L 12/18/2014 Comp Metabolic Ajh486 BILI T 0.7 mg/dL 12/18/2014 Comp Metabolic Rcs122 ALBUMIN 4.4 g/dL 12/18/2014 Comp Metabolic Wtr580 TPRO 7.8 g/dL 12/18/2014 Comp Metabolic Bbd821 GLOB 3.4 g/dL 12/18/2014 Comp Metabolic Sff089 A/G Ratio 1.3 Ratio 12/18/2014 Comp Metabolic Alz911 Osmo 277 mOsmo 12/18/2014 Tsh Ord6 hTSH II 1.79 uIU/mL 12/18/2014 ESR [id number] ESR 28 MM/HR 07/14/2012 CRP [id number] CRP 0.4 MG/DL 07/13/2012 PT/MC [id number] PRO TIME 24.6 SEC 07/13/2012 PT/MC [id number] INR MCMC 2.2 07/13/2012 Review of Systems [...] 1994 Ears/Nose/Throat oral cavity/pharynx/larynx Overall: no masses 05/16/2013 [...] protuberant 05/16/2013 None Full Exam - General 1995 Musculoskeletal head and neck Overall: head atraumatic 05/16/2013 None Full Exam - General 1995 Musculoskeletal [...] protuberant 09/01/2012 None Full Exam - General 1995 Musculoskeletal head and neck Overall: head atraumatic 09/01/2012 None Full Exam - General 1994 Constitutional general appearance Overall: well developed 09/01/2012 None Full Exam - General 1994 Constitutional general appearance Overall: in no acute distress 09/01/2012 None Full Exam - General 1995 Constitutional general appearance Overall: well nourished 09/01/2012 None Full Exam - General 1994 Eyes pupils and irises Overall: pupils equal, round, reactive to light and accomodation 09/01/2012 None Full Exam - General 1994 [...] time 07/07/2012 None Full Exam - General 1994 Neurologic [...] 1994 Ears/Nose/Throat oral cavity/pharynx/larynx Overall: no masses 06/08/2012 None Full Exam - General 1994 Respiratory auscultation Overall: breath sounds clear bilaterally 06/08/2012 None Full Exam - General 1994 Respiratory respiratory effort/rhythm Overall: no retractions 06/08/2012 None Full Exam - General 1995 Respiratory respiratory effort/rhythm Overall: normal rate 06/08/2012 None Full Exam - General 1994 Cardiovascular auscultation of heart Overall: regular rate 06/08/2012 None Full Exam - General 1995 Cardiovascular auscultation of heart Overall: normal heart sounds 06/08/2012 None Full Exam - General 1995 Cardiovascular auscultation of heart Systolic murmur: holosystolic [...] General 1994 Abdomen abdominal exam Contour: protuberant 06/08/2012 None [...] clear 02/17/2012 None Full Exam - General 1995 Ears/Nose/Throat oral cavity/pharynx/larynx Overall: oropharyngeal mucosa clear 02/17/2012 None Full Exam - General 1995 Ears/Nose/Throat oral cavity/pharynx/larynx Overall: no masses 02/17/2012 [...] protuberant 02/17/2012 None Full Exam - General 1995 Musculoskeletal head and neck Overall: head atraumatic 02/17/2012 None Full Exam - General 1994 Musculoskeletal head and neck Overall: cervical spine benign 02/17/2012 None Full Exam - General 1994 Neurologic gait Overall: no ataxia, no unsteadiness 02/17/2012 None Full Exam - General 1995 Psychiatric orientation/consciousness Overall: oriented to person, place and time 02/17/2012 None Full Exam - General 1994 Psychiatric mood and affect Overall: normal mood and affect 02/17/2012 None Full Exam - General 1995 Constitutional general appearance Overall: well nourished 10/21/2011 None Full Exam - General 1995 Constitutional general appearance Overall: well developed 10/21/2011 None Full Exam - General 1995 Constitutional general appearance Overall: in no acute distress 10/21/2011 None Full Exam - General 1994 Eyes pupils and irises Overall: pupils equal, round, reactive to light and accomodation 10/21/2011 None Full Exam - General 1995 [...] General 1994 Abdomen abdominal exam Contour: protuberant 10/21/2011 None Full Exam - General 1995 Musculoskeletal head and neck Overall: head atraumatic 10/21/2011 None Full Exam - General 1994 Musculoskeletal head and neck Overall: cervical spine benign 10/21/2011 None Full Exam - General 1994 Neurologic gait Overall: no ataxia, no unsteadiness 10/21/2011 None Full Exam - General 1994 Psychiatric orientation/consciousness Overall: oriented to person, place and time 10/21/2011 None Full Exam - General 1994 Psychiatric mood and affect Overall: normal mood and affect 10/21/2011 None Full Exam - General 1994 Cardiovascular auscultation of heart Systolic murmur: holosystolic 06/24/2011 None Full Exam - General 1994 Cardiovascular auscultation of heart Systolic murmur grade: II/ 06/24/2011 None Full Exam - General 1994 [...] clear 05/25/2011 None Full Exam - General 1995 Ears/Nose/Throat oral cavity/pharynx/larynx Overall: oral mucosa clear 05/25/2011 None Full Exam - General 1995 Ears/Nose/Throat [...] Codes Date URINALYSIS NONAUTO W/O SCOPE CPT-4: 35383 04/05/2017 PPPS, SUBSEQ VISIT CPT -4: G0439 04/17/2016 ADMIN INFLUENZA VIRUS VAC CPT-4: G0008 02/21/2016 FLU VACC PRSV FREE INC ANTIG Formatting Model/CDA Sections, Assigned to/Tona Helm CPT-4: 63951Ecbakha 02/21/2016 TRIAMCINOLONE ACET INJ NOS CPT-4: J3301 08/02/2015 DRAIN/INJECT JOINT/BURSA CPT-4: 00899 08/02/2015 ADMIN INFLUENZA VIRUS VAC CPT-4: G0008 03/20/2015 FLU VACC PRSV FREE INC ANTIG Formatting Model/CDA Sections, Assigned to/Tona Helm CPT-4: 80461Kvoxqxw 03/20/2015 FLU VACC 4 BEHZAD 3 YRS PLUS IM SNOMED CT: 01774468 CPT-4: 80276 02/08/2014 ADMIN INFLUENZA VIRUS VAC CPT-4: G0008 02/08/2014 TRIAMCINOLONE ACET INJ NOS CPT-4: J3301 05/01/2013 THER/PROPH/DIAG INJ SC/IM CPT-4: 89080 05/01/2013 ADMIN INFLUENZA VIRUS VAC CPT-4: G0008 02/01/2013 FLULAVAL VACC, 3 YRS & >, IM CPT-4: Q2036 02/01/2013 ADMIN PNEUMOCOCCAL VACCINE SNOMED CT: 73548026 CPT-4: G0009 02/01/2013 Pneumococcal Polysaccharide Vaccine, 23-Valent, Ad CPT-4: 23667 02/01/2013 DESTRUCT PREMALG LESION CPT-4: 64520 09/07/2012 DESTRUCT PREMALG LES 2-14 CPT-4: 66447 09/07/2012 ROUTINE VENIPUNCTURE CPT-4: 67299 07/13/2012 55197 EST. PATIENT, LEVEL IV CPT-4: 02695 06/08/2012 ROCEPHIN, PER 250 MG CPT-4: J0696 03/17/2012 TRIAMCINOLONE ACET INJ NOS CPT-4: J3301 03/17/2012 THER/PROPH/DIAG INJ SC/IM CPT-4: 65648 03/17/2012 INJ TRIGGER POINT 1/2 MUSCL CPT-4: 36845 06/24/2011 TRIAMCINOLONE ACET INJ NOS CPT-4: J3301 06/24/2011 ROUTINE VENIPUNCTURE CPT-4: 14069 01/30/2011 ROCEPHIN, PER 250 MG CPT-4: J0696 01/30/2011 THER/PROPH/DIAG INJ SC/IM CPT-4: 13822 01/30/2011 ROCEPHIN, PER 250 MG CPT-4: J0696 01/29/2011 THER/PROPH/DIAG INJ SC/IM CPT-4: 76153 01/29/2011 AIRWAY INHALATION TREATMENT CPT-4: 03421 01/29/2011 PRESCRIP TRANSMIT VIA ERX SY CPT-4: G8553 01/29/2011 Vital Signs Date Vital 03/09/2017 Blood Pressure 1: 136/64 Code : 8480-6 BMI: 28.7 Code : 54646-0 Heart Rate 1 : 68 bpm Height: 5'10" SpO2: 94% Weight: 197 lbs 8 oz 12/01/2016 Blood Pressure 1: 124/68 Code : 8480-6 BMI: 27.7 Code : 80082-3 Heart Rate 1 : 70 bpm Height: 5'10" SpO2: 94% Weight: 190 lbs 11/26/2016 Blood Pressure 1: 120/72 Code : 8480-6 Heart Rate 1: 73 bpm SpO2: 97% Weight: 190 lbs 8 oz 08/04/2016 Blood Pressure 1: 138/78 Code : 8480-6 BMI: 29.4 Code : 80712-1 Heart Rate 1 : 69 bpm Height: 5'10" SpO2: 97% Weight: 202 lbs 04/17/2016 Blood Pressure 1: 128/60 Code : 8480-6 BMI: 29.4 Code : 20494-7 Heart Rate 1 : 70 bpm Height: 5'10" SpO2: 97% Waist Measure (cm): 97 cm Weight: 202 lbs 04/07/2016 Blood Pressure 1: 132/78 Code : 8480-6 BMI: 29.0 Code : 20183-4 Heart Rate 1 : 78 bpm Height: 5'10" SpO2: 98% Weight: 199 lbs 12/04/2015 Blood Pressure 1: 120/62 Code : 8480-6 BMI: 28.4 Code : 64434-8 Heart Rate 1 : 80 bpm Height: 5'10" SpO2: 97% Weight: 195 lbs 10/29/2015 Blood Pressure 1: 108/58 Code : 8480-6 BMI: 27.8 Code : 64867-3 Heart Rate 1 : 78 bpm Height: 5'10" SpO2: 98% Weight: 191 lbs 08/02/2015 Blood Pressure 1: 148/82 Code : 8480-6 Heart Rate 1: 63 bpm Height: 5'10" SpO2: 98% Weight: 06/25/2015 Blood Pressure 1: 146/78 Code : 8480-6 Blood Pressure 1: 150/76 Code: 8480-6 BMI: 30.3 Code: 43229-3 Heart Rate 1: 89 bpm Height: 5'10" SpO2: 97% Weight: 208 lbs 03/21/2015 Blood Pressure 1: 136/80 Code : 8480-6 BMI: 29.3 Code : 03355-9 Heart Rate 1 : 72 bpm Height: 5'10" Weight: 201 lbs 02/22/2015 Blood Pressure 1: 156/78 Code : 8480-6 Blood Pressure 1: 140/80 Code: 8480-6 BMI: 29.5 Code: 79304-8 Heart Rate 1: 74 bpm Height: 5'10" SpO2: 97% Weight: 203 lbs 02/12/2015 Blood Pressure 1: 140/88 Code : 8480-6 BMI: 29.8 Code : 62818-7 Heart Rate 1 : 81 bpm Height: 5'10" SpO2: 95% Temperature: 36.8 (C) / 98.2 (F) Weight: 205 lbs 12/28/2014 Blood Pressure 1: 126/64 Code : 8480-6 BMI: 30.1 Code : 81882-1 Heart Rate 1 : 71 bpm Height: 5'10" SpO2: 96% Weight: 207 lbs 12/19/2014 Blood Pressure 1: 132/66 Code : 8480-6 BMI: 29.8 Code : 11537-8 Heart Rate 1 : 68 bpm Height: 5'10" SpO2: 95% Temperature: 36.5 (C) / 97.7 (F) Weight: 205 lbs 08/22/2014 Blood Pressure 1: 140/82 Code : 8480-6 BMI: 30.6 Code : 38077-5 Heart Rate 1 : 90 bpm Height: 5'10" SpO2: 97% Weight: 210 lbs 05/23/2014 Blood Pressure 1: 118/64 Code : 8480-6 BMI: 30.6 Code : 37604-2 Heart Rate 1 : 68 bpm Height: 5'10" Weight: 210 lbs 03/19/2014 Blood Pressure 1: 138/88 Code : 8480-6 BMI: 29.4 Code : 10643-1 Heart Rate 1 : 86 bpm Height: 5'10" Weight: 202 lbs 03/05/2014 Blood Pressure 1: 114/72 Code : 8480-6 BMI: 28.4 Code : 81781-1 Heart Rate 1 : 93 bpm Height: 5'10" Weight: 195 lbs 02/19/2014 Blood Pressure 1: 102/64 Code : 8480-6 BMI: 30.1 Code : 82993-5 Heart Rate 1 : 92 bpm Height: 5'10" SpO2: 96% Weight: 207 lbs 02/13/2014 Blood Pressure 1: 128/68 Code : 8480-6 BMI: 31.0 Code : 35806-9 Heart Rate 1 : 76 bpm Height: 5'10" SpO2: 94% Weight: 213 lbs 02/08/2014 Blood Pressure 1: 122/62 Code : 8480-6 BMI: 30.9 Code : 82673-9 Heart Rate 1 : 74 bpm Height: 5'10" Respiratory Rate: 18 bpm Weight: 212 lbs 01/18/2014 Blood Pressure 1: 130/82 Code : 8480-6 BMI: 31.9 Code : 42705-0 Heart Rate 1 : 108 bpm Height: 5'10 " Respiratory Rate: 18 bpm SpO2: 95% Temperature: 37.5 (C) / 99.5 (F ) Weight: 219 lbs 10/10/2013 Blood Pressure 1: 140/82 Code : 8480-6 BMI: 32.6 Code : 08091-9 Heart Rate 1 : 68 bpm Height: 5'10" Weight: 224 lbs 08/15/2013 Blood Pressure 1: 158/82 Code : 8480-6 BMI: 32.7 Code : 00621-0 Heart Rate 1 : 72 bpm Height: 5'10" Weight: 225 lbs 05/16/2013 Blood Pressure 1: 148/84 Code : 8480-6 BMI: 32.6 Code : 71577-9 Heart Rate 1 : 84 bpm Height: 5'10" Weight: 224 lbs 05/01/2013 Blood Pressure 1: 174/92 Code : 8480-6 BMI: 32.6 Code : 10254-2 Heart Rate 1 : 76 bpm Height: 5'10" Weight: 224 lbs 02/01/2013 Blood Pressure 1: 110/64 Code : 8480-6 BMI: 32.6 Code : 34738-9 Heart Rate 1 : 80 bpm Height: 5'10" Weight: 224 lbs 11/01/2012 Blood Pressure 1: 132/70 Code : 8480-6 BMI: 32.7 Code : 92614-0 Heart Rate 1 : 92 bpm Height: 5'10" Weight: 225 lbs 09/07/2012 Blood Pressure 1: 164/72 Code : 8480-6 Heart Rate 1: 76 bpm 09/01/2012 Blood Pressure 1: 136/78 Code : 8480-6 BMI: 32.7 Code : 71652-7 Heart Rate 1 : 92 bpm Height: 5'10" Weight: 225 lbs 07/07/2012 Blood Pressure 1: 172/90 Code : 8480-6 Heart Rate 1: 81 bpm SpO2: 98% Weight: 224 lbs 06/28/2012 Blood Pressure 1: 148/96 Code : 8480-6 Heart Rate 1: 76 bpm SpO2: 97% Temperature: 36.3 (C) / 97.4 (F) Weight: 06/08/2012 Blood Pressure 1: 152/92 Code : 8480-6 BMI: 32.5 Code : 75693-0 Heart Rate 1 : 80 bpm Height: [...] Code : 8480-6 BMI: 32.5 Code : 66476-7 Heart Rate 1 : 68 bpm Height: 5'10" Weight: 223 lbs 10/21/2011 Blood Pressure 1: 138/62 Code : 8480-6 BMI: 31.6 Code : 35915-1 Heart Rate 1 : 64 bpm Height: [...] Code : 8480-6 BMI: 32.2 Code : 73820-7 Heart Rate 1 : 72 bpm Height: 5'10" Respiratory Rate: 16 bpm Weight: 221 lbs 02/03/2011 Blood Pressure 1: 137/76 Code : 8480-6 BMI: 32.2 Code : 71878-5 Heart Rate 1 : 81 bpm Height: 5'10" Weight: 221 lbs 01/30/2011 Blood Pressure 1: 106/60 Code : 8480-6 Heart Rate 1: 76 bpm Respiratory Rate : 20 bpm SpO2: 96% Weight: 220 lbs 01/29/2011 Blood Pressure 1: 84/52 Code : 8480-6 BMI: 31.7 Code : 07003-9 Heart Rate 1 : 87 bpm Height: [...] data Encounters Encounter Performer Location Codes Date ([id number]) [id number] EST. PATIENT, LEVEL IV Diagnosis: Essential (primary) hypertension[ICD10: I10] Diagnosis: Mixed hyperlipidemia[ICD10: E78.2] Verna Ferro MD, [facility] CPT-4: 79569 03/09/2017 ([id number]) [id number] EST. PATIENT, LEVEL IV Diagnosis: Essential (primary) hypertension[ICD10: I10] Diagnosis: Mixed hyperlipidemia[ICD10: E78.2] Diagnosis: Low back pain[ICD10: M54.5] Verna Ferro MD, [facility] CPT- 4: 96247 12/01/2016 ([id number]) [id number] EST. 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 PATIENT, LEVEL IV Diagnosis: Essential (primary) hypertension[ICD10: I10] Diagnosis: Mixed hyperlipidemia[ICD10: E78.2] Diagnosis: Cough[ICD10: R05] Verna Ferro MD, [facility] CPT-4: 56673 08/04/2016 ([id number]) 03438 EST. PATIENT, LEVEL IV Diagnosis: Essential (primary) hypertension[ICD10: I10] Diagnosis: Mixed hyperlipidemia[ICD10: E78.2] Diagnosis: Low back pain[ICD10: M54.5] Diagnosis: Cervicalgia[ICD10: M54.2] Verna Ferro MD, [facility] CPT-4: 61507 04/07/2016 ([id number]) 89475 EST. PATIENT, LEVEL III Diagnosis: Essential (primary) hypertension[ICD10: I10] Diagnosis: Mixed hyperlipidemia[ICD10: E78.2] Verna Ferro MD, [facility] CPT-4: 90983 12/04/2015 ([id number]) 76815 EST. PATIENT, LEVEL IV Diagnosis: Essential (primary) hypertension[ICD10: I10] Diagnosis: FDC (current) use of anticoagulants[ICD10: Z79.01] Verna Ferro MD, [facility] CPT-4: 77531 10/29/2015 81784 EST. PATIENT, LEVEL IV Diagnosis: Low back pain[ICD10: M54.5] Maria E Ferro MD, [facility] CPT-4 : 27313 08/02/2015 ([id number]) 44266 EST. 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 PATIENT, LEVEL IV Diagnosis: Essential (primary) hypertension[ICD10: I10] Diagnosis: Mixed hyperlipidemia[ICD10: E78.2] Verna Ferro MD [facility] CPT-4: 47859 03/21/2015 ([id number]) 85410 EST. PATIENT, LEVEL III Diagnosis: Essential (primary) hypertension[ICD10: I10] Diagnosis: Pneumonia, unspecified organism[ICD10: J18.9] Diagnosis: Pain in left knee[ICD10: M25.562] Nydia Ferro MD [facility] CPT-4: 25585 02/22/2015 ([id number]) 78131 EST. PATIENT, LEVEL III Diagnosis: Pneumonia, unspecified organism[ICD10: J18.9] Verna Ferro MD [facility] CPT-4: 52446 02/12/2015 ([id number]) 11537 EST. PATIENT, LEVEL III Diagnosis: ESSENTIAL HYPERTENSION[ICD9: 401.9] Diagnosis: Left knee pain[ICD9: 719.46] Nydia Ferro MD, [facility] CPT-4: 99836 12/28/2014 ([id number]) 35155 EST. PATIENT, LEVEL IV Diagnosis: HYPERLIPIDEMIA[ICD9: 272.4] Diagnosis: ESSENTIAL HYPERTENSION[ICD9: 401.9] Diagnosis: H/O long-term (current) use of anticoagulants[ICD9: V58.61] Verna Ferro MD [facility] CPT-4: 27532 12/19/2014 ([id number]) 14856 EST. PATIENT, LEVEL IV Diagnosis: ESSENTIAL HYPERTENSION[ICD9: 401.9] Diagnosis: HYPERLIPIDEMIA[ICD9: 272.4] Diagnosis: H/O long-term (current) use of anticoagulants[ICD9: V58.61] Verna Ferro MD , [facility] CPT-4: 55764 08/22/2014 ([id number]) 46363 EST. PATIENT, LEVEL IV Diagnosis: ESSENTIAL HYPERTENSION[ICD9: 401.9] Diagnosis: HYPERLIPIDEMIA[ICD9: 272.4] Verna Ferro MD, [facility] CPT- 4: 35680 05/23/2014 ([id number]) 27090 EST. PATIENT, LEVEL III Diagnosis: HYPERLIPIDEMIA[ICD9: 272.4] Diagnosis: ESSENTIAL HYPERTENSION[ICD9: 401.9] Verna Ferro MD [facility] CPT-4: 02435 03/19/2014 ([id number]) 41136 EST. PATIENT, LEVEL III Diagnosis: Diarrhea[ICD9: 787.91] Verna Ferro MD [facility] CPT-4: 13952 03/05/2014 ([id number]) 93112 EST. PATIENT, LEVEL III Diagnosis: Abdominal pain[ICD9: 789.00] Diagnosis: Abdominal abscess[ICD9: 567.22] Verna Ferro MD [facility] CPT- 4: 33558 02/19/2014 ([id number]) 41728 EST. PATIENT, LEVEL III Diagnosis: Cellulitis of oral soft tissues[ICD9: 528.3] Verna Ferro MD [facility] CPT-4: 62644 02/13/2014 ([id number]) 70738 EST. PATIENT, LEVEL III Diagnosis: ESSENTIAL HYPERTENSION[ICD9: 401.9] Diagnosis: Abdominal pain[ICD9: 789.00] Verna Ferro MD [facility] CPT- 4: 35227 02/08/2014 ([id number]) Patient admitted to the hospital from clinic (NO CHARGE) Diagnosis: Abdominal pain[ICD9: 789.00] Diagnosis: Right lower quadrant abdominal pain[ICD9: 789.03] Diagnosis: Rebound tenderness[ICD9: 789.60] Diagnosis: FEVER NOS[ICD9: 780.60] Diagnosis: Nausea alone[ICD9: 787.02] Diagnosis: ESSENTIAL HYPERTENSION[ICD9: 401.9] Diagnosis: Renal insufficiency[ICD9: 593.9] Diagnosis: Dehydration[ICD9: 276.51] Verna Ferro MD [facility] CPT-4: 65168O 01/18/2014 ([id number]) 11037 EST. PATIENT, LEVEL IV Diagnosis: ESSENTIAL HYPERTENSION[SNOMED: 81905386] Diagnosis: HYPERLIPIDEMIA[ICD9: 272.4] Diagnosis: Nodule of tongue[ICD9: 784.2] Verna Ferro MD, [facility] CPT- 4: 65400 10/10/2013 ([id number]) 61994 EST. PATIENT, LEVEL IV Diagnosis: ESSENTIAL HYPERTENSION[SNOMED: 94315580] Diagnosis: HYPERLIPIDEMIA[ICD9: 272.4] Verna Ferro MD [facility] CPT- 4: 30856 08/15/2013 ([id number]) 01959 EST. PATIENT, LEVEL III Diagnosis: COUGH[ICD9: 786.2] Diagnosis: RENAL & URETERAL DIS NOS[ICD9: 593.9] Verna Ferro MD [facility] CPT-4: 12967 05/16/2013 ([id number]) 93990 EST. PATIENT, LEVEL III Diagnosis: ESSENTIAL HYPERTENSION[SNOMED: 49698123] Diagnosis: COUGH[ICD9: 786.2] Diagnosis: PNEUMONIA (CAP)[ICD9: 486] Verna Feror MD [facility] CPT- 4: 81642 05/01/2013 ([id number]) 07044 EST. PATIENT, LEVEL IV Diagnosis: ESSENTIAL HYPERTENSION[SNOMED: 88675250] Diagnosis: HYPERLIPIDEMIA[ICD9: 272.4] Verna Ferro MD [facility] CPT- 4: 13401 02/01/2013 ([id number]) 37398 EST. PATIENT, LEVEL III Diagnosis: ESSENTIAL HYPERTENSION[SNOMED: 67416572] Verna Ferro MD [facility] CPT-4: 51125 11/01/2012 ([id number]) 24955 EST. PATIENT, LEVEL III Diagnosis: ESSENTIAL HYPERTENSION[SNOMED: 79714831] Diagnosis: Multiple actinic keratoses[ICD9: 702.0] Verna Ferro MD [facility] CPT-4: 99198 09/01/2012 ([id number]) 99254 EST. PATIENT, LEVEL III Diagnosis: ESSENTIAL HYPERTENSION[SNOMED: 90843145] Diagnosis: CRP elevated[ICD9: 790.95] Verna Ferro MD [facility] CPT- 4: 52622 07/07/2012 ([id number]) 26416 EST. PATIENT, LEVEL IV Diagnosis: BACTERIAL PNEUMONIA NEC[ICD9: 482.89] Diagnosis: Cough[ICD9: 786.2] Verna Ferro MD [facility] CPT-4: 74357 06/28/2012 ([id number]) 29999 EST. PATIENT, LEVEL IV Diagnosis: ESSENTIAL HYPERTENSION[SNOMED: 43992883] Diagnosis: Constipation[ICD9: 564.00] Diagnosis: H/O long-term (current) use of anticoagulants[ICD9: V58.61] Verna Ferro MD [facility] CPT-4: 53124 05/25/2012 65790 EST. PATIENT, LEVEL IV Diagnosis: Pneumonia[ICD9: 486] Diagnosis: COUGH[ICD9: 786.2] Diagnosis: RENAL & URETERAL DIS NOS[ICD9: 593.9] Nydia Ferro MD, [facility] CPT-4: 33235 03/17/2012 ([id number]) 81192 EST. PATIENT, LEVEL IV Diagnosis: ESSENTIAL HYPERTENSION[SNOMED: 75811127] Diagnosis: HYPERLIPIDEMIA[ICD9: 272.4] Diagnosis: Renal insufficiency[ICD9: 593.9] Verna Ferro MD, [facility] CPT-4: 46284 02/17/2012 39908 EST. PATIENT, LEVEL IV Diagnosis: ESSENTIAL HYPERTENSION[SNOMED: 02791315] Diagnosis: Constipation - functional[ICD9: 564.09] Diagnosis: COUGH[ICD9: 786.2] Verna Ferro MD [facility] CPT-4: 85173 10/21/2011 ([id number]) 70259 EST. PATIENT, LEVEL IV Diagnosis: ESSENTIAL HYPERTENSION[SNOMED: 46062720] Diagnosis: HYPERLIPIDEMIA[ICD9: 272.4] Diagnosis: Sacroiliitis[ICD9: 720.2] Verna Ferro MD, [facility] CPT-4: 93836 06/24/2011 ([id number]) 00201 EST. PATIENT, LEVEL IV Diagnosis: ESSENTIAL HYPERTENSION[SNOMED: 48723337] Diagnosis: HYPERLIPIDEMIA[ICD9: 272.4] Verna Ferro MD [facility] CPT- 4: 15792 05/25/2011 29124 EST. PATIENT, LEVEL IV Diagnosis: ESSENTIAL HYPERTENSION[SNOMED: 17688366] Diagnosis: Fatigue[ICD9: 780.79] Verna Ferro MD [facility] CPT-4: 63074 03/23/2011 08155 EST. PATIENT, LEVEL IV Diagnosis: Cyst of ear canal[ICD9: 380.89] Diagnosis: PNEUMONIA (CAP)[ICD9: 486] Diagnosis: HYPOTENSION[ICD9: 458.9] Nydia Ferro MD, [facility] CPT-4: 82710 02/03/2011 52720 EST. PATIENT, LEVEL IV Diagnosis: Dehydration[ICD9: 276.51] Diagnosis: PNEUMONIA (CAP)[ICD9: 486] Nydia Ferro MD, [facility] CPT-4: 54233 01/30/2011 16475 EST. PATIENT, LEVEL IV Diagnosis: PNEUMONIA (CAP)[ICD9: 486] Diagnosis: Dehydration[ICD9: 276.51] Diagnosis: HYPOTENSION[ICD9: 458.9] Nydia Ferro MD, [facility] CPT-4: 17541 01/29/2011 Plan of Care Planned Activity Notes Codes Status Date Appointment: Maria E Pulido [facility]el[facility] [facility] - Annual Wellness Visit 04/22/2017 [...] to medications. 03/09/2017 Appointment: Verna Ferro WPtel: [address] [place], [place] [address] (15 min) Moderate 03/09/2017 Patient Education: Patient [...] any injections. 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 11/26/2016 Appointment: Nydia Cuellar [facility]el[facility] [phone] [facility] (30 min) Complex 11/26/2016 Patient Education: Patient [...] symptoms. 08/04/2016 Appointment: [phone] (15 min) Moderate 08/04/2016 Patient Education: Patient [...] care surrogate. 04/17/2016 Appointment: Nydia Cuellar WPtel: [facility] [facility] - Annual Wellness Visit 04/17/2016 [...] point injections. 04/07/2016 Appointment: Verna Ferro WPtel: [facility] (15 min) Moderate 04/07/2016 Patient Education: Patient [...] to medications. 12/04/2015 Appointment: [facility] Ferro [phone] [facility] [place] (15 min) Moderate 12/04/2015 Patient Education: Patient [...] been sent to the pharmacy. talk to [facility] - ask them to take you down to [facility] [employer] [employer] and show you which machines and how much on each machine you should be working on and how often to do the machines. Coumadin ( warfarin)pills - take 5mg wednesday/wednesday/wednesday/wednesday/wednesday and 1/2 pill wednesday/ check inr in 2 weeks 10/29/2015 Appointment: Verna Fer[phone] [facility] (15 min) Moderate 10/29/2015 Patient Education: Patient [...] to medications. 06/25/2015 Appointment: Verna Ferro WPtel: [address] [place], [place] [address] (15 min) Moderate 06/25/2015 Patient Education: Patient Medication Summary Completed 06/25/2015 Patient Education: Hypertension Completed 06/25/2015 Care Plan: Referral Order SNOMED-CT : [id number] Ordered 06/25/2015 Visit Plan: Hypertension - well [...] medications. 03/21/2015 Appointment: [phone] (15 min) Moderate 03/21/2015 Patient Education: Patient Medication Summary Completed 03/21/2015 Patient Education: Hypertension Completed 03/21/2015 Care Plan: Referral Order SNOMED-CT : [id number] Ordered 03/21/2015 Patient Education: Patient Medication Summary Completed 03/20/2015 Visit Plan: LYF-zpppfcjjzq-kt change Pneumonia-resolved Left knee pain-continue pennsaid-recommend MRI [...] min) Moderate 02/12/2015 Appointment: Verna Ferro [facility]Ptel[facility] [address] [facility] (15 min) Moderate 02/12/2015 Patient Education: Patient [...] and 3.5. 12/19/2014 Appointment: Verna Ferro WPtel: [facility] Follow up 12/19/2014 Patient Education: Patient Medication [...] and 3.5. 08/22/2014 Appointment: Verna Ferro WPtel: [address] [place], [place] [id number] Follow up 08/22/2014 Patient Education: Patient Medication [...] to medications. 05/23/2014 Appointment: Verna Ferro WPtel: [address] [place], [place] [id number] Follow up 05/23/2014 Patient Education: Patient Medication Summary Completed 05/23/2014 Patient Education: Hypertension Completed 05/23/2014 Appointment: Verna Ferro WPtel: [address] [place], [place] [phone] Follow up 05/21/2014 Appointment: Verna Ferro WPtel: [address] [place], [place] [phone] [place] Follow up 05/11/2014 Visit Plan: Hypertension - [...] Care Plan: COMPLETE CBC AUTOMATED LOINC : 25600-1 Ordered 03/19/2014 Visit Plan: Diarrhea - persistent - Pt to start on probiotic three times daily x 2 weeks. Urinary urgency - pt to start on flomax Pt to restart several home medications, bring in blood pressure machine. 03/05/2014 Appointment: Verna Ferro WPtel: [facility] Follow up 03/05/2014 Patient Education: Patient Medication Summary Completed 03/05/2014 Visit Plan: Pt to see Dr. Graf at 3:30pm on Wednesday Pt to finish antibiotics and advance diet. 02/19/2014 Appointment: Verna Ferro WPtel: [facility] Follow up 02/19/2014 Patient Education: Patient Medication [...] at home. 02/08/2014 Appointment: Verna Ferro WPtel: [phone] [facility] Follow up 02/08/2014 Patient Education: Patient Medication [...] pt NPO 01/18/2014 Appointment: Verna Ferro WPtel: [phone] [facility] Sick 01/18/2014 Patient Education: Patient Medication Summary [...] likely biopsy. 10/10/2013 Appointment: Verna Ferro WPtel: [address] [facility] Follow up 10/10/2013 Patient Education: Patient Medication [...] to medications. 08/15/2013 Appointment: Verna Ferro WPtel: [phone] [facility] [place] Follow up 08/15/2013 Patient Education: Patient Medication Summary Completed 08/15/2013 Patient Education: Hypertension Completed 08/15/2013 Visit Plan: Cough - improved - continue with current treatment. Elevated creatinine - recommended pt to increase water intake. 05/16/2013 Appointment: Verna Ferro WPtel: [phone] [facility] [place] Follow up 05/16/2013 Patient Education: Patient Medication [...] this illness. 05/01/2013 Appointment: Verna Ferro WPtel: [phone] [facility] [place] Follow up 05/01/2013 Patient Education: Patient Medication [...] PT AGREED TO START EXERCISE AT THE [facility] [place] AT LEAST THREE TIMES A WEEK. 02/01/2013 Appointment: Verna Ferro WPtel: [address] [place] [address] Follow up 02/01/2013 Patient Education: Patient Medication [...] at home. 11/01/2012 Appointment: Verna Ferro WPtel: [address] [place] [address] Follow up 11/01/2012 Patient Education: Patient Medication Summary Completed 11/01/2012 Patient Education: Hypertension Completed 11/01/2012 Appointment: Nydia Cuellar WPtel: [facility] Follow up 09/28/2012 Visit Plan: Wound Instructions [...] pathology. 09/01/2012 Appointment: Vern[facility]el[phone] [facility] Follow up 09/01/2012 Patient Education: Patient Medication [...] week. 07/07/2012 Appointment: Vern[facility] Ferro [facility]Ptel: [phone] [facility] Follow up 07/07/2012 Patient Education: Patient Medication [...] PRESSURE READINGS NEXT WEEK. 06/08/2012 Appointment: Verna Ferrol: [phone] [facility] Follow up 06/08/2012 Patient Education: Patient Medication [...] and 3.5. 05/25/2012 Appointment: Verna Ferro [facility]Ptel: [phone] [facility] Follow up 05/25/2012 Patient Education: Patient Medication [...] on use. Andrews to go to [facility] for [facility] and labs. He is to call or go to ER if his symptoms do not improve, or if ANY worse. Patient verbalized understanding of plan. Chronic renal disease -check labs and follow renal function closely. 03/17/2012 Appointment: Nydia Cuellar WPtel: [facility] Sick 03/17/2012 Patient Education: Patient Medication Summary Completed [...] po bid. 02/17/2012 Appointment: Verna Ferro WPtel: [phone] [facility] Follow up 02/17/2012 Patient Education: Patient Medication [...] this time. 10/21/2011 Appointment: Verna Ferro WPtel: [phone] [facility] Other 10/21/2011 Patient Education: Patient Medication Summary [...] joints bilaterally 06/24/2011 Appointment: Verna Ferro WPtel: [facility] Other 06/24/2011 Patient Education: Patient Medication Summary [...] to medications. 05/25/2011 Appointment: Verna Ferro WPtel: [phone] [facility] Other 05/25/2011 Patient Education: Patient Medication Summary [...] smaller supper. 03/23/2011 Appointment: Verna Ferro WPtel: [phone] [facility] Other 03/23/2011 Patient Education: Patient Medication Summary Completed 03/23/2011 Patient Education: High Blood Pressure: Essential Hypertension Completed 2010 Appointment: Verna Ferro WPtel: [facility] Other 02/24/2011 Visit Plan: Ogngkqwmr-kpofhsqu-ajugnurub natural and expected course of this diagnosis and patient to alert me if symptoms do not follow expected course. Follow up in 3 weeks, sooner if any symptoms return. Finish antibiotic as instructed. Gzbouqpbkdi-ebrbbixs-eqotjuf diovan 1/2 tab daily-monitor blood pressure daily and bring to clinic for review at next appointment. Call with any concerns-elevated blood pressure, chest pain, soa, etc. Ear lesion-right ear canal-lesion drained per Dr. Ferro-culture obtained. 02/03/2011 Visit Plan: Qtwucfqma-zczsjgxf-wgnzymaew natural and expected course of this diagnosis and patient to alert me if symptoms do not follow expected course. Follow up in 3 weeks, sooner if any symptoms return. Finish antibiotic as instructed. Vkjlednoxbm-reztcojh-jjpeovq diovan 1/2 tab daily-monitor blood pressure daily [...] and plan. 02/03/2011 Appointment: Nydia Cuellar WPtel: [facility]5 [facility] [place] [address] Other 02/03/2011 Patient Education: Patient Medication Summary Completed 02/03/2011 Visit Plan: Pneumonia-discussed natural and expected course of this diagnosis and patient to alert me if symptoms do not follow expected course. Rocephin 1gm injection given in the office today. Continue levaquin 1/2 tab daily for 5 additional days. Follow up Wednesday in the office. Lhcqdzivqpt-gsfhsxuh-bpwc recheck labs today-continue to increase fluids and monitor symptoms. Hypotension-improved as well. Monitor blood pressure at home. Return to clinic Wednesday for follow up, sooner if needed. ER over the weekend with any changes or concerns. Recheck labs Wednesday a.m. 01/30/2011 Appointment: Nydia Cuellar WPtel: [facility] [place] [address] Other 01/30/2011 Patient Education: Patient Medication Summary [...] next week. 01/29/2011 Appointment: Nydia Cuellar WPtel: [facility] [facility] 01/29/2011 Patient Education: Patient Medication Summary Completed 01/29/2011 Referral: Roldan Cruz Referral Appointment Requested Referral: External, Ordering Provider Referral Appointment Requested Instructions Comment . Hypertension - well controlled - continue [...] in blood pressure readings at home. . Pneumonia - Pt has been diagnosed [...] findings and repeat a pt/inr on wednesday. . Pneumonia - Pt has been diagnosed with pneumonia by physical exam. A chest xray has been ordered as have antibiotics. The pt is aware of the diagnosis and the need for acute treatment of this illness. Cough - recommended pt to start on cough medication call if symptoms are not improving. . Hypertension - too well controlled - [...] to assure normal liver response to medications. Continue levaquin 1/2 daily for the next [...] days. Follow up Wednesday in the office. Awcjogxknlv-yiazgtkg-wxfg recheck labs today-continue to increase fluids and [...] going to wait to have any injections. Restart your diovan 1/2 tab daily. Continue to monitor blood pressure daily and call with readings. May change albuterol breathing treatments to as needed only. May stop levaquin after last dose on Wednesday. Recheck kidney function and coumadin level in 2 weeks. Follow up with Dr. Ferro 3 weeks for your blood pressure. . Dndfdtzcs-jkfuduss-vrnnfwvaa natural and expected course of this diagnosis and patient to alert me if symptoms do not follow expected course. Follow up in 3 weeks, sooner if any symptoms return. Finish antibiotic as instructed. Wptirhnsnbr-zwscyfkf-tpfwaxb diovan 1/2 tab daily-monitor blood pressure daily and bring to clinic for review at next appointment. Call with any concerns- elevated blood pressure, chest pain, soa, etc. Ear lesion-right ear canal-lesion drained per Dr. Ferro-culture obtained. . Hypertension - well controlled - continue [...] - prn cough medication - monitor symptoms. appt with dr. hanks - at 9AM on 10/14/13 - office is on [facility] - across from Dr. Camarena's office . [...] benefit from treatment with new injectable medications. . Joint Injection - right SI joint [...] need is expected to be 3-6 months. . Hypertension - well controlled - continue [...] PT AGREED TO START EXERCISE AT THE [facility] [place] AT LEAST THREE TIMES A WEEK. . Hypertension - well controlled - [...] eat a lunch and smaller supper. . Hypertension - well controlled - continue [...] INR is between 2.0 and 3.5. . Medicare Exam - today we discussed [...] DOPA paperwork for health care surrogate. . ADMIT FROM CLINIC TO HOSPITAL - [...] of abdomen and keep pt NPO . Cough - improved - continue with current treatment. Elevated creatinine - recommended pt to increase water intake. . Hypertension - well controlled - continue [...] INR is between 2.0 and 3.5. . Nqxcohrna-quoonwuy-ozqyteepp natural and expected course of this diagnosis and patient to alert me if symptoms do not follow expected course. Follow up in 3 weeks, sooner if any symptoms return. Finish antibiotic as instructed. Iybpborltdn-geckdzgr-pudwhlv diovan 1/2 tab daily-monitor blood pressure daily [...] assure normal liver response to medications. . Diarrhea - persistent - Pt to start on probiotic three times daily x 2 weeks. Urinary urgency - pt to start on flomax Pt to restart several home medications, bring in blood pressure machine. XRAY LEFT KNEE . Hypertension - well controlled - continue with current medications, continue with no added salt diet. Pt has been encouraged to exercise daily. The pt has been advised to call the office if there are any acute concerns about change in blood pressure readings at home. Left knee zwrk-gprnhuyw-saghtcd sent for xray . UDH-bwmqianhut-qa change Pneumonia-resolved Left knee pain-continue pennsaid-recommend MRI if symptoms do not improve- continue to wear knee brace CHECK PT/INR TODAY CONTINUE SAME DOSE OF COUMADIN UNLESS WE CALL YOU WITH CHANGES . [facility]DC use of anti coagulants-unable to have injections in back due to INR too high-will check INR today-instructed patient that we can check INR before his procedure to make sure it is low enough to have the procedure done so he doesn't have to wait and get canceled again. PT IS TO START TAKING THE NORVASC [...] in blood pressure readings at home. . Joint Injection - right SI joint - Pt was given post - injection instructions. The pt has been advised to use anti-inflammatories post injection today, ice to the injected site, call if redness, warmth, or increased pain occurs at the site of injection. Hold diovan tonight and tomorrow. Get labs and chest xray at the hospital today. Come back tomorrow for follow up. Do your albuterol 3cc (1 vial) breathing treatments every 4-6 hours. I sent the RX for Levaquin to [facility]-start today. . Pneumonia-discussed natural and expected course [...] related, no specific treatment at this time. I sent 2 prescriptions to [facility]. Start the zithromax today-you will take 2 [...] on use. Andrews to go [facility] for [facility] and labs. He is to call or go to ER if his symptoms do not improve, or if ANY worse. Patient verbalized understanding of plan. Chronic renal disease-check labs and follow renal function closely. continue to hold diovan, norvasc, trilipix and [...] Pt to finish antibiotics and advance diet. Change coumadin to 5mg on Wednesday/Wednesday//Wednesday/ Wednesday [...] been sent to the pharmacy. talk to [facility] - [facility] and show you which machines and how [...] been sent to the pharmacy. talk to critical access hospital - ask them to take you down to [facility] and show you which machines and how [...] assure normal liver response to medications. . Wound Instructions - Pt was instruced to keep the wound clean, wash with antibacterial soap, use triple antibiotic ointment, call if redness, pustular drainage, or any other acute conerns. . Hypertension - uncontrolled - the pt [...] injections over the SI joints bilaterally . Hypertension - well controlled - continue [...]
--- OUTSIDE RECORDS SUMMARY | 2017-09-13 12:31 | XMS REPORT | CCD ---
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 smoked cigars 4 daily x 20 years. quit totally Jan 2011 01/29/[address]: 107232374 Never drinks alcohol quit 198601/29/2011 Has the patient ever used illegal drugs? 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 TAKE 1/2 TABLET BY MOUTH ON THURSDAYS. 05/31/2017 04/02/2019 Active amlodipine 10 mg tablet RxNorm: 090081 Tablet(s) TAKE ONE TABLET BY MOUTH DAILY 05/25/2017 02/18/2018 Active valsartan 160 mg tablet RxNorm: 366236 TAKE ONE TABLET BY MOUTH DAILY 04/26/2017 06/23/2017 Inactive carvedilol 25 mg tablet RxNorm: 273904 TAKE ONE TABLET BY MOUTH TWICE A DAY 03/22/2017 12/16/2017 Active Flomax 0.4 mg capsule RxNorm: 001339 TAKE ONE CAPSULE BY MOUTH DAILY 03/15/2017 06/13/2017 Inactive amlodipine 10 mg tablet RxNorm: 590628 TAKE ONE TABLET BY MOUTH DAILY 02/25/2017 05/24/2017 Inactive fenofibrate nanocrystallized 145 mg tablet RxNorm: 073489 TAKE ONE TABLET BY MOUTH DAILY 02/09/2017 12/05/2017 Active valsartan 160 mg tablet RxNorm: 282326 TAKE ONE TABLET BY MOUTH DAILY 01/25/2017 04/25/2017 Inactive Lipitor 80 mg tablet RxNorm: 205894 TAKE ONE TABLET BY MOUTH AT BEDTIME 11/04/2016 10/29/2017 Active valsartan 160 mg tablet RxNorm: 398451 TAKE ONE TABLET BY MOUTH DAILY 10/21/2016 01/24/2017 Inactive fenofibrate nanocrystallized 145 mg tablet RxNorm: 886592 TAKE ONE TABLET BY MOUTH DAILY 10/06/2016 02/08/2017 Inactive amlodipine 10 mg tablet RxNorm: 293679 1 Tablet(s) PO daily 02/20/2017 Inactive amlodipine 10 mg tablet RxNorm: 844346 1 Tablet(s) PO daily 09/23/2016 Inactive carvedilol 25 mg tablet RxNorm: 984687 TAKE ONE TABLET BY MOUTH TWICE A DAY 09/22/2016 03/20/2017 Inactive Coumadin 5 mg tablet RxNorm: 239492 TAKE 1 TABLET BY MOUTH ON WEDNESDAY , WEDNESDAY, WEDNESDAY, WEDNESDAY AND SUNDAYS. TAKE 1/2 TABLET BY MOUTH ON THURSDAYS. 07/07/2016 04/02/2017 Inactive fenofibrate nanocrystallized 145 mg tablet RxNorm: 445446 TAKE ONE TABLET BY MOUTH DAILY 06/10/2016 10/05/2016 Inactive valsartan 160 mg tablet RxNorm: 035924 1 Tablet(s) PO daily 04/201610/16/2016 Inactive Flomax 0.4 mg capsule RxNorm: 718984 TAKE ONE CAPSULE BY MOUTH DAILY 04/10/2016 03/05/2017 Inactive carvedilol 25 mg tablet RxNorm: 340922 TAKE ONE TABLET BY MOUTH TWICE A DAY 03/23/2016 09/18/2016 Inactive fenofibrate nanocrystallized 145 mg tablet RxNorm: 672173 TAKE ONE TABLET BY MOUTH DAILY 01/14/2016 06/09/2016 Inactive Coumadin 5 mg tablet RxNorm: 229383 Tablet(s) take 5mg daily except 1/2 pill wednesday/wednesday12/19/2015 07/06/2016 Inactive Coumadin 5 mg tablet RxNorm: 162049 Tablet(s) take 5mg wednesday/wednesday/wednesday/ wednesday and 1/2 pill wednesday//wednesday12/18/2015 12/18/2015 Inactive Lipitor 80 mg tablet RxNorm: 446120 TAKE ONE TABLET BY MOUTH AT BEDTIME 11/11/2015 11/04/2016 Inactive Lipitor 80 mg tablet RxNorm: 240190 TAKE ONE TABLET BY MOUTH AT BEDTIME 11/11/2015 11/04/2016 Inactive Lipitor 80 mg tablet RxNorm: 760732 TAKE ONE TABLET BY MOUTH AT BEDTIME 11/11/2015 11/04/2016 Inactive Lipitor 80 mg tablet RxNorm: 715953 TAKE ONE TABLET BY MOUTH AT BEDTIME 11/11/2015 11/03/2016 Inactive Coumadin 5 mg tablet RxNorm: 878665 Tablet(s) TAKE 1 TABLET BY MOUTH DAILY 10/29/2015 10/28/2015 Inactive betamethasone dipropionate 0.05 % topical ointment RxNorm: 407663 1 Application TOP QID 10/29/2015 11/04/2015 Inactive amlodipine 5 mg tablet RxNorm: 689397 1 Tablet(s) PO daily 09/23/2016 Inactive Coumadin 5 mg tablet RxNorm: 026926 Tablet(s) take 5mg wednesday/wednesday/wednesday/ wednesday/wednesday and 1/2 pill wednesday/10/29/2015 12/17/2015 Inactive valsartan 160 mg tablet RxNorm: 701172 1 Tablet(s) PO daily 04/17/2016 Inactive Norvasc 10 mg tablet RxNorm: 000257 Tablet(s) TAKE ONE TABLET BY MOUTH EVERY DAY 10/01/2015 10/28/2015 Inactive Norvasc 10 mg tablet RxNorm: 148646 Tablet(s) TAKE ONE TABLET BY MOUTH EVERY DAY 09/30/2015 09/30/2015 Inactive carvedilol 25 mg tablet RxNorm: 454312 TAKE ONE TABLET BY MOUTH TWICE A DAY 09/24/2015 03/21/2016 Inactive Coumadin 5 mg tablet RxNorm: 909380 TAKE 1 TABLET BY MOUTH ON WEDNESDAY , WEDNESDAY, WEDNESDAY, WEDNESDAY AND SUNDAYS. TAKE 1/2 TABLET BY MOUTH ON THURSDAYS. 06/28/2015 10/28/2015 Inactive fenofibrate nanocrystallized 145 mg tablet RxNorm: 456686 1 Tablet(s) PO daily 06/25/2015 01/13/2016 Inactive Diovan 160 mg tablet RxNorm: 060865 TAKE ONE TABLET BY MOUTH EVERY MORNING 05/17/2015 06/24/2015 Inactive Keflex 500 mg capsule RxNorm: 514820 1 Capsule(s) PO TID 201405/05/2015 Inactive Keflex 500 mg capsule RxNorm: 340893 1 Capsule(s) PO TID 201404/28/2015 Inactive Trilipix 135 mg capsule,delayed release RxNorm: 467557 TAKE ONE CAPSULE BY MOUTH DAILY 04/08/2015 06/24/2015 Inactive Flomax 0.4 mg capsule RxNorm: 738899 TAKE ONE CAPSULE BY MOUTH DAILY 04/03/2015 03/27/2016 Inactive Flomax 0.4 mg capsule RxNorm: 592264 Capsule(s) TAKE ONE CAPSULE BY MOUTH DAILY 04/03/2015 04/02/2015 Inactive carvedilol 25 mg tablet RxNorm: 718466 1 Tablet(s) PO BID 03/2609/21/2015 Inactive Trilipix 135 mg capsule,delayed release RxNorm: 034466 1 Capsule(s) PO daily 03/04/2015 04/02/2015 Inactive Levaquin 500 mg tablet RxNorm: 112909 1 Tablet(s) PO daily 10/201402/18/2015 Inactive Levaquin 500 mg tablet RxNorm: 304264 1 Tablet(s) PO daily 04/201512/25/2014 Inactive Lipitor 80 mg tablet RxNorm: 454597 1 Tablet(s) PO QH 201411/07/2015 Inactive Lipitor 80 mg tablet RxNorm: 737399 1 Tablet(s) PO QH 201411/12/2014 Inactive Norvasc 10 mg tablet RxNorm: 353781 TAKE ONE TABLET BY MOUTH EVERY DAY 09/26/2014 09/20/2015 Inactive Flomax 0.4 mg capsule RxNorm: 859503 TAKE ONE CAPSULE BY MOUTH DAILY 09/13/2014 03/11/2015 Inactive Norvasc 10 mg tablet RxNorm: 235180 Tablet(s) PO TAKE ONE TABLET BY MOUTH EVERY DAY 08/23/2014 09/25/2014 Inactive [SAVINGS FOR NON-COVERED DRUGS -- BIN:877363, PCN: ASPROD1, Group: XXXXX, ID# [id number], Questions: . THIS IS NOT INSURANCE.] Diovan 160 mg tablet RxNorm: 507138 1 Tablet(s) PO QAM 201402/17/2015 Inactive [SAVINGS FOR NON-COVERED DRUGS -- BIN:011781, PCN: ASPROD1, Group: XXXXX, ID # [id number], Questions: . THIS IS NOT INSURANCE.] Coumadin 5 mg tablet RxNorm: 388238 TAKE 1 TABLET BY MOUTH ON WEDNESDAY , WEDNESDAY, WEDNESDAY, WEDNESDAY AND SUNDAYS. TAKE 1/2 TABLET BY MOUTH ON THURSDAYS. 07/27/2014 06/21/2015 Inactive Diovan 160 mg tablet RxNorm: 809847 1/2 Tablet(s) PO BID 201408/21/2014 Inactive [SAVINGS FOR UNINSURED PATIENTS -- BIN:446198, PCN: ASPROD1, Group: [id number], ID # [id number], Process claim through [employer], for questions: . THIS IS NOT INSURANCE.] Diovan 320 mg tablet RxNorm: 122054 1/2 Tablet(s) PO BID 201305/22/2014 Inactive [SAVINGS FOR UNINSURED PATIENTS -- BIN:153853, PCN: ASPROD1, Group: [id number], ID # [id number], Process claim through [employer], for questions: . THIS IS NOT INSURANCE.] Flomax 0.4 mg capsule RxNorm: 643622 1 Capsule(s) PO daily 03/0509/12/2014 Inactive [SAVINGS FOR UNINSURED PATIENTS -- BIN:426353, PCN: ASPROD1, Group: [id number], ID# [id number], Process claim through [employer], for questions: . THIS IS NOT INSURANCE.] ciprofloxacin 500 mg tablet RxNorm: 627920 1 Tablet(s) PO BID 02/14/2014 02/23/2014 Inactive [SAVINGS FOR UNINSURED PATIENTS -- BIN:955183, PCN: ASPROD1, Group: [id number], ID# [id number], Process claim through [employer], for questions: [phone]. THIS IS NOT INSURANCE.] ciprofloxacin 500 mg tablet RxNorm: 908161 1 Tablet(s) PO BID 02/14/2014 02/13/2014 Inactive Flagyl 500 mg tablet RxNorm: 662525 1 Tablet(s) PO TID 201302/13/2014 Inactive Flagyl 500 mg tablet RxNorm: 033270 1 Tablet(s) PO TID 201302/23/2014 Inactive [SAVINGS FOR UNINSURED PATIENTS -- BIN:795501, PCN: ASPROD1, Group: [id number], ID # [id number], Process claim through [employer], for questions: . THIS IS NOT INSURANCE.] clindamycin 150 mg capsule RxNorm: 043673 1 Capsule(s) PO QID 02/13/2014 02/13/2014 Inactive [SAVINGS FOR UNINSURED PATIENTS -- BIN:709206, PCN: ASPROD1, Group: [id number], ID# [id number], Process claim through [employer], for questions: [phone]. THIS IS NOT INSURANCE.] Diovan 320 mg tablet RxNorm: 149805 1/2 Tablet(s) PO BID 201303/04/2014 Inactive [SAVINGS FOR UNINSURED PATIENTS -- BIN:394261, PCN: ASPROD1, Group: [id number], ID # [id number], Process claim through [employer], for questions: . THIS IS NOT INSURANCE.] triamcinolone acetonide 0.1 % topical ointment RxNorm: 9008175 1 Application TOP PRN 01/02/2014 01/01/2014 Inactive triamcinolone acetonide 0.1 % topical ointment RxNorm: 6617624 1 Application TOP PRN 01/02/2014 06/24/2015 Inactive [SAVINGS FOR UNINSURED PATIENTS -- BIN:091395, PCN: ASPROD1, Group: [id number], ID# [id number], Process claim through [employer], for questions: . THIS IS NOT INSURANCE.] Norvasc 10 mg tablet RxNorm: 702267 Tablet(s) PO TAKE ONE TABLET BY MOUTH EVERY DAY 08/28/2013 08/27/2013 Inactive Norvasc 10 mg tablet RxNorm: 803143 Tablet(s) PO TAKE ONE TABLET BY MOUTH EVERY DAY 08/28/2013 08/27/2013 Inactive Norvasc 10 mg tablet RxNorm: 708795 Tablet(s) PO TAKE ONE TABLET BY MOUTH EVERY DAY 08/28/2013 03/04/2014 Inactive Coumadin 5 mg tablet RxNorm: 940598 Tablet(s) PO TAKE ONE TABLET BY MOUTH ON WEDNESDAY, WED, WEDNESDAY, WED. AND WEDNESDAY . TAKE 1/2 TABLET ON Thursdays07/10/2013 10/28/2015 Inactive Coumadin 5 mg tablet RxNorm: 021233 Tablet(s) PO TAKE ONE TABLET BY MOUTH ON WEDNESDAY, WED, WEDNESDAY, SAT. AND WEDNESDAY . TAKE 1/2 TABLET ON Thursdays07/10/2013 07/09/2013 Inactive Zithromax Z-Marcelo 250 mg tablet RxNorm: 138588 1 Tablet(s) PO UD 05/01/2013 05/05/2013 Inactive cefdinir 300 mg capsule RxNorm: 104319 1 Capsule(s) PO BID 05/07/2013 Inactive Senna-S 8.6 mg-50 mg tablet RxNorm: 396851 Tablet(s) PO TAKE ONE TABLET BY MOUTH TWICE A DAY 03/24/2013 03/04/2014 Inactive Senna-S 8.6 mg-50 mg tablet RxNorm: 725936 Tablet(s) PO TAKE ONE TABLET BY MOUTH TWICE A DAY 11/22/2012 03/23/2013 Inactive Norvasc 10 mg tablet RxNorm: 385249 Tablet(s) PO TAKE ONE TABLET BY MOUTH EVERY DAY 09/22/2012 08/27/2013 Inactive Coumadin 5 mg tablet RxNorm: 354773 Tablet(s) PO 07/04/2012 07/09/2013 Inactive 5mg Mon Wed Frid Sat Sun2.5 Thurs levofloxacin 500 mg tablet RxNorm: 388313 1 Tablet(s) PO daily 1.5 pills daily on days #1, #2, then one pill daily thereafter 06/28/2012 07/02/2012 Inactive Levaquin 500 mg tablet RxNorm: 289765 Tablet(s) PO 1.5 tabs on day 1 & 2, 1 tab on days 3,4,5,6 06/28/2012 08/31/2012 Inactive 1.5 tabs on day 1 & 2, 1 tab on days 3,4,5,6 Coumadin 5 mg tablet RxNorm: 900800 Tablet(s) PO 06/20/2012 07/03/2012 Inactive 5mg Mon Wed Frid Sat Sun2.5 Thurs Coumadin 5 mg tablet RxNorm: 933253 Tablet(s) PO 05/25/2012 06/19/2012 Inactive 5mg Mon Wed Frid Sat Sun2.5 Tues Thurs Norvasc 10 mg tablet RxNorm: 486960 1 Tablet(s) PO 05/25/2012 09/21/2012 Inactive Senna-S 8.6 mg-50 mg tablet RxNorm: 015448 1 Tablet(s) PO BID 05/25/2012 11/20/2012 Inactive Senna-S 8.6 mg-50 mg tablet RxNorm: 533863 1 Tablet(s) PO BID 04/29/2012 05/24/2012 Inactive Kenalog 40 mg/mL Susp for Injection RxNorm: 1429209 Milliliter(s) Inj 03/17/2012 03/17/2012 Inactive cefdinir 300 mg capsule RxNorm: 483965 1 Capsule(s) PO BID 12/201103/23/2012 Inactive Rocephin 500 mg Solution for Injection RxNorm: 282896 Inj 03/1703/17/2012 Inactive Vitamin D2 50,000 unit Cap RxNorm: 947756 1 Capsule(s) PO QW 08/01/2015 Inactive 50,000 weekly for 3 months then 1000 units daily thereafter Senna-S 8.6 mg-50 mg tablet RxNorm: 958322 1 Tablet(s) PO BID 10/21/2011 04/17/2012 Inactive Coumadin 5 mg Tab RxNorm: 763560 Tablet(s) PO 06/15/2011 06/14/2011 Inactive 5mg Wed Frid Sat2.5 Sat Coumadin 5 mg tablet RxNorm: 885569 Tablet(s) PO 06/15/2011 05/24/2012 Inactive 5mg Mon Wed Frid Sat2.5 Sun Norvasc 5 mg tablet RxNorm: 903018 1 Tablet(s) PO daily 201005/21/2012 Inactive Rocephin 1 gram Solution for Injection RxNorm: 616520 Inj 01/3010/21/2011 Inactive Levaquin 500 mg Tab RxNorm: 256192 1 Tablet(s) PO daily 201010/21/2011 Inactive Rocephin 1 gram Solution for Injection RxNorm: 992532 Inj 01/2901/29/2011 Inactive cyclobenzaprine 5 mg tablet RxNorm: 672089 1 Tablet(s) PO Q8 as needed No Start Date Active aspirin 81 mg Tab RxNorm: 593270 1 Tablet(s) PO daily No Start Date Active Centrum Silver Tab RxNorm: 1 Tablet(s) PO daily No Start Date Active melatonin 3 mg tablet RxNorm: 364230 1 Tablet(s) PO QHS No Start Date Active alprazolam 0.5 mg tablet RxNorm: 489818 1 Tablet(s) PO TID as needed No Start Date Active polyethylene glycol 3350 17 gram oral powder packet RxNorm: 366714 17 Gram(s) PO daily No Start Date Active Fish Oil 1,000 mg Cap RxNorm: 4 Capsule(s) PO QH No Start Date 06/24/2015 Inactive Miralax 17 gram Oral Powder Packet RxNorm: 695107 1 PO daily No Start Date 03/04/2014 Inactive carvedilol 25 mg Tab RxNorm: 807173 1 Tablet(s) PO BID No Start Date 03/25/2015 Inactive Diovan 320 mg tablet RxNorm: 914800 1/2 Tablet(s) PO BID No Start Date 02/11/2014 Inactive doxepin 25 mg Cap RxNorm: 5497993 Capsule(s) PO No Start Date 03/04/2014 Inactive one bid and 2 at hs valsartan 160 mg tablet RxNorm: 478517 1 Tablet(s) PO daily No Start Date 10/20/2015 Inactive promethazine-codeine 6.25 mg-10 mg/5 mL Syrup RxNorm: 380602 5-10 Milliliter(s) PO Q4 PRN No Start Date 10/21/2011 Inactive Diovan HCT 320 mg-12.5 mg Tab RxNorm: 736068 1/2 Tablet(s) PO BID No Start Date 05/25/2012 Inactive niacin ER 500 mg Tab RxNorm: 814252 2 Tablet(s) PO QH No Start Date 08/21/2014 Inactive Vitamin D2 50,000 unit Cap RxNorm: 190884 1 Capsule(s) PO QW No Start Date 10/22/2011 Inactive 50,000 weekly for 3 months then 1000 units daily thereafter Trilipix 135 mg Cap RxNorm: 530694 1 Capsule(s) PO daily No Start Date 08/13/2014 Inactive Lipitor 80 mg Tab RxNorm: 748647 1 Tablet(s) PO QH No Start Date 11/12/2014 Inactive Coumadin 5 mg Tab RxNorm: 341565 Tablet(s) PO No Start Date 06/14/2011 Inactive 5mg Wed Sat2.5 Sat Norvasc 5 mg Tab RxNorm: 837515 1 Tablet(s) PO daily No Start Date 04/27/2011 Inactive Flomax 0.4 mg 24 hr Cap RxNorm: 676553 1 Capsule(s) PO QH No Start Date 03/04/2014 Inactive Levaquin 500 mg tablet RxNorm: 043562 Tablet(s) PO 1.5 tabs on day 1 & 2, 1 tab on days 3,4,5,6 No Start Date 06/27/2012 Inactive albuterol sulfate 2.5 mg/3 mL (0.083 %) Neb Solution RxNorm: 987763 3 Milliliter(s ) INH Q4 PRN No Start Date 03/04/2014 Inactive Zithromax Z-Marcelo 250 mg tablet RxNorm: 723117 Tablet(s) PO UD No Start Date 10/31/2012 Inactive alprazolam 0.5 mg Tab RxNorm: 963145 Tablet(s) PO No Start Date 06/25/2015 Inactive 1- 3 daily 2 at hs Medication Administered Medication Codes Instructions Start Date Status Rocephin 500 mg Solution for Injection RxNorm: 281466 03/17/2012 No longer Active Kenalog 40 mg/mL Susp for Injection RxNorm: 0031877 Milliliter 03/17/2012 No longer Active Rocephin 1 gram Solution for Injection RxNorm: 694516 01/29/2011 No longer Active Immunizations Vaccine Codes Date Status Influenza CVX: 141 02/21/2016 completed Influenza CVX: 141 03/20/2015 completed Influenza CVX: 141 02/08/2014 completed Influenza CVX: 141 02/01/2013 completed Pneumococcal (Adult) CVX: 33 02/01/2013 completed Assessments Condition Codes Effective Dates 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 ICD-10: Z79.01 ICD-9: [...] Code Item Item Code Result Date Pt [id number] PT 24.7 seconds 04/14/2017 Pt Uhe5991 INR 2.2 04/14/2017 Pt Sxe8558 Low Intensity - 1.5-2.0 04/14/2017 Pt Kzl1236 Mod intensity - 2.0-3.0 04/14/2017 Pt Tfo9944 Hi intensity - 3.0-4.0 04/14/2017 Cbc With [...] 27.6 pg 04/14/2017 Cbc With Differential Ord2 Jefferson% 7.3 % 04/14/2017 Cbc With Differential Ord2 [...] 1.67 K/ul 04/14/2017 Cbc With Differential Ord2 [place] ABS# 0.5 K/ul 04/14/2017 Cbc With Differential Ord2 Eos ABS# 0.1 K/ul 04/14/2017 Cbc With Differential Ord2 Baso ABS# 0.0 K/ul 04/14/2017 Urine Culture Ucult Preliminary NO Growth Day 1 04/07/2017 Urine Culture Ucult Complete NO Growth Day 2 04/07/2017 Pt Nlc3012 PT 33.2 seconds 04/05/2017 Pt Ioi6810 INR 3.2 04/05/2017 Pt Uff5077 Low Intensity - 1.5-2.0 04/05/2017 Pt Aef4786 Mod intensity - 2.0-3.0 04/05/2017 Pt Kzk1629 Hi intensity - 3.0-4.0 04/05/2017 Cbc With Differential Ord2 WBC 6.25 K/ul 03/08/2017 Cbc With Differential Ord2 RBC 4.48 M/ul 03/08/2017 Cbc With Differential Ord2 HGB 12.5 g/dl 03/08/2017 Cbc With Differential Ord2 Neut% 68.4 % 03/08/2017 Cbc With Differential Ord2 HCT 36.9 % 03/08/2017 Cbc With Differential Ord2 MCV 82.4 fl 03/08/2017 Cbc With Differential Ord2 Lymph% 22.6 % 03/08/2017 Cbc With Differential Ord2 MCH 27.9 pg 03/08/2017 Cbc With Differential Ord2 Jefferson% 7.4 % 03/08/2017 Cbc With Differential Ord2 Eos% 1.4 % 03/08/2017 Cbc With Differential Ord2 MCHC 33.9 pg 03/08/2017 Cbc With Differential Ord2 Baso% 0.2 % 03/08/2017 Cbc With Differential Ord2 PLT 258 K/ul 03/08/2017 Cbc With Differential Ord2 Neut ABS# 4.28 K/ul 03/08/2017 Cbc With Differential Ord2 RDW 18.0 % 03/08/2017 Cbc With Differential Ord2 Lymph ABS# 1.41 K/ul 03/08/2017 Cbc With Differential Ord2 [place] ABS# 0.5 K/ul 03/08/2017 Cbc With Differential Ord2 Eos ABS# 0.1 K/ul 03/08/2017 Cbc With Differential Ord2 Baso ABS# 0.0 K/ul 03/08/2017 Comp Metabolic Nrg661 NA 142 mEq/L 03/08/2017 Comp Metabolic Lkh911 K 4.3 mEq/L 03/08/2017 Comp Metabolic Kkj619 CL 110 mEq/L 03/08/2017 Comp Metabolic Khn903 CO2 24.0 mEq/L 03/08/2017 Comp Metabolic Ejh604 ANION GAP 12 03/08/2017 Comp Metabolic Zop239 GLUCOSE 110 mg/dL 03/08/2017 Comp Metabolic Vsw804 Creat 1.0 mg/dL 03/08/2017 Comp Metabolic Swl661 eGFR 74 ml/min/1.73m2 03/08/2017 Comp Metabolic Jiq335 BUN 20 mg/dL 03/08/2017 Comp Metabolic Zev932 B/C Ratio 19.4 Ratio 03/08/2017 Comp Metabolic Ddz442 CALCIUM 8.9 mg/dL 03/08/2017 Comp Metabolic Fxn381 ALK PHOS 42 U/L 03/08/2017 Comp Metabolic Jym884 AST(SGOT) 18 U/L 03/08/2017 Comp Metabolic Fgz171 ALT(SGPT) 14 U/L 03/08/2017 Comp Metabolic Lop601 BILI T 0.7 mg/dL 03/08/2017 Comp Metabolic Wed658 ALBUMIN 4.1 g/dL 03/08/2017 Comp Metabolic Dfx222 TPRO 7.2 g/dL 03/08/2017 Comp Metabolic Bcn945 GLOB 3.1 g/dL 03/08/2017 Comp Metabolic Ccw030 A/G Ratio 1.3 Ratio 03/08/2017 Comp Metabolic Pgy650 Osmo 286 mOsmo 03/08/2017 Lipid Ord30 CHOL 78 mg/dL 03/08/2017 Lipid Ord30 HDL 17.0 mg/dl 03/08/2017 Lipid Ord30 TRIG 84 mg/dL 03/08/2017 Lipid Ord30 LDL 44 mg/dL 03/08/2017 Lipid Ord30 C/HDL 4.6 Ratio 03/08/2017 Pt Ysm8449 PT 30.5 seconds 03/08/2017 Pt Fht9210 INR 2.9 03/08/2017 Pt Mwc2562 Low Intensity - 1.5-2.0 03/08/2017 Pt Jqw0347 Mod intensity - 2.0-3.0 03/08/2017 Pt Qnt1848 Hi intensity - 3.0-4.0 03/08/2017 Tsh Ord6 hTSH II 2.02 uIU/mL 03/08/2017 Comp Metabolic Rof420 NA 140 mEq/L 12/02/2016 Comp Metabolic Tyw503 K 4.1 mEq/L 12/02/2016 Comp Metabolic Uwv677 CL 109 mEq/L 12/02/2016 Comp Metabolic Srz164 CO2 23.0 mEq/L 12/02/2016 Comp Metabolic Bqi913 ANION GAP 12 12/02/2016 Comp Metabolic Dcq478 GLUCOSE 117 mg/dL 12/02/2016 Comp Metabolic Grn306 Creat 1.2 mg/dL 12/02/2016 Comp Metabolic Jww695 eGFR 64 ml/min/1.73m2 12/02/2016 Comp Metabolic Hwf560 BUN 18 mg/dL 12/02/2016 Comp Metabolic Kdp396 B/C Ratio 15.3 Ratio 12/02/2016 Comp Metabolic Vtc692 CALCIUM 9.7 mg/dL 12/02/2016 Comp Metabolic Ctg160 ALK PHOS 34 U/L 12/02/2016 Comp Metabolic Kic266 AST(SGOT) 21 U/L 12/02/2016 Comp Metabolic Tto754 ALT(SGPT) 17 U/L 12/02/2016 Comp Metabolic Bie839 BILI T 0.6 mg/dL 12/02/2016 Comp Metabolic Kid922 ALBUMIN 4.2 g/dL 12/02/2016 Comp Metabolic Onu875 TPRO 7.6 g/dL 12/02/2016 Comp Metabolic Aoo941 GLOB 3.4 g/dL 12/02/2016 Comp Metabolic Gmb138 A/G Ratio 1.3 Ratio 12/02/2016 Comp Metabolic Mut672 Osmo 282 mOsmo 12/02/2016 Lipid Ord30 CHOL [...] 63.0 % 12/02/2016 Cbc With Differential Ord2 MCV 80.3 fl 12/02/2016 Cbc With Differential Ord2 Lymph% 27.5 % 12/02/2016 Cbc With Differential Ord2 MCH 27.7 pg 12/02/2016 Cbc With Differential Ord2 Jefferson% 7.6 % 12/02/2016 Cbc With Differential Ord2 [...] 1.98 K/ul 12/02/2016 Cbc With Differential Ord2 [place] ABS# 0.6 K/ul 12/02/2016 Cbc With Differential Ord2 Eos ABS# 0.1 K/ul 12/02/2016 Cbc With Differential Ord2 Baso ABS# 0.0 K/ul 12/02/2016 Tsh Ord6 hTSH II 1.65 uIU/mL 12/02/2016 Pt Bgs9239 PT 23.4 seconds 11/26/2016 Pt Iaq5943 INR 2.2 11/26/2016 Pt Hlc1475 Low Intensity - 1.5-2.0 11/26/2016 Pt Vhp9206 Mod intensity - 2.0-3.0 11/26/2016 Pt Vbb4172 Hi intensity - 3.0-4.0 11/26/2016 Comp Metabolic Bhk787 NA 139 mEq/L 08/03/2016 Comp Metabolic Wqk337 K 3.9 mEq/L 08/03/2016 Comp Metabolic Ety087 CL 109 mEq/L 08/03/2016 Comp Metabolic Zmu959 CO2 22.0 mEq/L 08/03/2016 Comp Metabolic Hea390 ANION GAP 12 08/03/2016 Comp Metabolic Skz300 GLUCOSE 109 mg/dL 08/03/2016 Comp Metabolic Mws390 Creat 1.0 mg/dL 08/03/2016 Comp Metabolic Odw908 eGFR 82 ml/min/1.73m2 08/03/2016 Comp Metabolic Cuc937 BUN 20 mg/dL 08/03/2016 Comp Metabolic Pob474 B/C Ratio 21.1 Ratio 08/03/2016 Comp Metabolic Ukf539 CALCIUM 9.3 mg/dL 08/03/2016 Comp Metabolic Xsa168 ALK PHOS 44 U/L 08/03/2016 Comp Metabolic Xdl866 AST(SGOT) 18 U/L 08/03/2016 Comp Metabolic Zte763 ALT(SGPT) 14 U/L 08/03/2016 Comp Metabolic Kmt706 BILI T 0.8 mg/dL 08/03/2016 Comp Metabolic Wau540 ALBUMIN 4.0 g/dL 08/03/2016 Comp Metabolic Vtk055 TPRO 7.2 g/dL 08/03/2016 Comp Metabolic Smm051 GLOB 3.2 g/dL 08/03/2016 Comp Metabolic Jdb128 A/G Ratio 1.2 Ratio 08/03/2016 Comp Metabolic Xdg710 Osmo 281 mOsmo 08/03/2016 Pt Tpq6891 PT 21.6 seconds 08/03/2016 Pt Evf8872 INR 2.0 08/03/2016 Pt Rov5695 Low Intensity - 1.5-2.0 08/03/2016 Pt Pon9099 Mod intensity - 2.0-3.0 08/03/2016 Pt Lhm7139 Hi intensity - 3.0-4.0 08/03/2016 Cbc With [...] 27.3 pg 08/03/2016 Cbc With Differential Ord2 Jefferson% 7.9 % 08/03/2016 Cbc With Differential Ord2 MCHC 33.8 pg 08/03/2016 Cbc With Differential Ord2 Eos% 2.1 % 08/03/2016 Cbc With Differential Ord2 Baso% 0.2 % 08/03/2016 Cbc With Differential Ord2 PLT 256 K/ul 08/03/2016 Cbc With Differential Ord2 Neut ABS# 4.33 K/ul 08/03/2016 Cbc With Differential Ord2 RDW 19.0 % 08/03/2016 Cbc With Differential Ord2 Lymph ABS# 1.28 K/ul 08/03/2016 Cbc With Differential Ord2 Jefferson ABS# 0.5 K/ul 08/03/2016 Cbc With Differential [...] Ord6 hTSH II 1.87 uIU/mL 04/06/2016 Pt [id number] PT 23.2 seconds 04/06/2016 Pt Esx9697 INR 2.2 04/06/2016 Pt Kts4303 Low Intensity - 1.5-2.0 04/06/2016 Pt Azm8439 Mod intensity - 2.0-3.0 04/06/2016 Pt Fym8711 Hi intensity - 3.0-4.0 04/06/2016 Cbc With Differential Ord2 WBC 7.07 K/ul 04/06/2016 Cbc With Differential Ord2 RBC 5.08 M/ul 04/06/2016 Cbc With Differential Ord2 HGB 13.8 g/dl 04/06/2016 Cbc With Differential Ord2 HCT 41.2 % 04/06/2016 Cbc With Differential Ord2 Neut% 67.8 % 04/06/2016 Cbc With Differential Ord2 MCV 81.1 fl 04/06/2016 Cbc With Differential Ord2 Lymph% 24.0 % 04/06/2016 Cbc With Differential Ord2 MCH 27.2 pg 04/06/2016 Cbc With Differential Ord2 Jefferson% 6.4 % 04/06/2016 Cbc With Differential Ord2 MCHC 33.5 pg 04/06/2016 Cbc With Differential Ord2 Eos% 1.7 % 04/06/2016 Cbc With Differential Ord2 PLT 275 K/ul 04/06/2016 Cbc With Differential Ord2 Baso% 0.1 % 04/06/2016 Cbc With Differential Ord2 RDW 19.0 % 04/06/2016 Cbc With Differential Ord2 Neut ABS# 4.79 K/ul 04/06/2016 Cbc With Differential Ord2 Lymph ABS# 1.70 K/ul 04/06/2016 Cbc With Differential Ord2 [place] ABS# 0.5 K/ul 04/06/2016 Cbc With Differential Ord2 Eos ABS# 0.1 K/ul 04/06/2016 Cbc With Differential Ord2 Baso ABS# 0.0 K/ul 04/06/2016 Comp Metabolic Ifs929 NA 140 mEq/L 04/06/2016 Comp Metabolic Zoy302 K 4.2 mEq/L 04/06/2016 Comp Metabolic Ncc444 CL 108 mEq/L 04/06/2016 Comp Metabolic Vsy226 CO2 22.0 mEq/L 04/06/2016 Comp Metabolic Jxs988 ANION GAP 14 04/06/2016 Comp Metabolic Eeo770 GLUCOSE 95 mg/dL 04/06/2016 Comp Metabolic Vso893 Creat 1.1 mg/dL 04/06/2016 Comp Metabolic Ord736 eGFR 69 ml/min/1.73m2 04/06/2016 Comp Metabolic Ppz024 BUN 19 mg/dL 04/06/2016 Comp Metabolic Rcw930 B/C Ratio 17.3 Ratio 04/06/2016 Comp Metabolic Brq958 CALCIUM 9.5 mg/dL 04/06/2016 Comp Metabolic Kni509 ALK PHOS 34 U/L 04/06/2016 Comp Metabolic Jvd250 AST(SGOT) 20 U/L 04/06/2016 Comp Metabolic Mzw799 ALT(SGPT) 18 U/L 04/06/2016 Comp Metabolic Spx393 BILI T 0.8 mg/dL 04/06/2016 Comp Metabolic Xtu949 ALBUMIN 4.2 g/dL 04/06/2016 Comp Metabolic Hpv380 TPRO 7.7 g/dL 04/06/2016 Comp Metabolic Mod284 GLOB 3.5 g/dL 04/06/2016 Comp Metabolic Piw273 A/G Ratio 1.2 Ratio 04/06/2016 Comp Metabolic Kdx234 Osmo 281 mOsmo 04/06/2016 Pt Vjy1520 PT 33.1 seconds 03/20/2016 Pt Gzl9272 INR 3.5 03/20/2016 Pt Pwh5729 Low Intensity - 1.5-2.0 03/20/2016 Pt Vbj5444 Mod intensity - 2.0-3.0 03/20/2016 Pt Nze8984 Hi intensity - 3.0-4.0 03/20/2016 Pt Ibd9363 PT 30.3 seconds 03/06/2016 Pt Ors9184 INR 3.1 03/06/2016 Pt Uta1406 Low Intensity - 1.5-2.0 03/06/2016 Pt Dqw5776 Mod intensity - 2.0-3.0 03/06/2016 Pt Ime7689 Hi intensity - 3.0-4.0 03/06/2016 Pt Nxm2143 PT 33.5 seconds 02/21/2016 Pt Yaa8005 INR 3.6 02/21/2016 Pt Gvy7080 Low Intensity - 1.5-2.0 02/21/2016 Pt Lwu5006 Mod intensity - 2.0-3.0 02/21/2016 Pt Acs6728 Hi intensity - 3.0-4.0 02/21/2016 Cbc With [...] 84.7 fl 01/30/2016 Cbc With Differential Ord2 [place]% 6.2 % 01/30/2016 Cbc With Differential Ord2 MCH 28.4 pg 01/30/2016 Cbc With Differential Ord2 Eos% 1.5 % 01/30/2016 Cbc With Differential Ord2 MCHC 33.5 pg 01/30/2016 Cbc With Differential Ord2 Baso% 0.2 % 01/30/2016 Cbc With Differential Ord2 PLT 314 K/ul 01/30/2016 Cbc With Differential Ord2 RDW 16.7 % 01/30/2016 Cbc With Differential Ord2 Neut ABS# 4.56 K/ul 01/30/2016 Cbc With Differential Ord2 Lymph ABS# 1.42 K/ul 01/30/2016 Cbc With Differential Ord2 [place] ABS# 0.4 K/ul 01/30/2016 Cbc With Differential Ord2 Eos ABS# 0.1 K/ul 01/30/2016 Cbc With Differential Ord2 Baso ABS# 0.0 K/ul 01/30/2016 Comp Metabolic Qwp897 NA 136 mEq/L 01/30/2016 Comp Metabolic Ygl157 K 4.0 mEq/L 01/30/2016 Comp Metabolic Onb669 CL 103 mEq/L 01/30/2016 Comp Metabolic Rbx074 CO2 27.0 mEq/L 01/30/2016 Comp Metabolic Mkt003 ANION GAP 10 01/30/2016 Comp Metabolic Mho975 GLUCOSE 106 mg/dL 01/30/2016 Comp Metabolic Mnh782 Creat 1.3 mg/dL 01/30/2016 Comp Metabolic Ilk706 eGFR 60 ml/min/1.73m2 01/30/2016 Comp Metabolic Lwd796 BUN 22 mg/dL 01/30/2016 Comp Metabolic Sca856 B/C Ratio 17.6 Ratio 01/30/2016 Comp Metabolic Cpw927 CALCIUM 9.7 mg/dL 01/30/2016 Comp Metabolic Bgq337 ALK PHOS 29 U/L 01/30/2016 Comp Metabolic Zio467 AST(SGOT) 19 U/L 01/30/2016 Comp Metabolic Ezf937 ALT(SGPT) 16 U/L 01/30/2016 Comp Metabolic Osq106 BILI T 0.6 mg/dL 01/30/2016 Comp Metabolic Qos700 ALBUMIN 4.4 g/dL 01/30/2016 Comp Metabolic Bfi844 TPRO 7.5 g/dL 01/30/2016 Comp Metabolic Oae225 GLOB 3.1 g/dL 01/30/2016 Comp Metabolic Gff407 A/G Ratio 1.4 Ratio 01/30/2016 Comp Metabolic Bgw791 Osmo 276 mOsmo 01/30/2016 Pt Bwc3919 PT 22.3 seconds 01/30/2016 Pt Dzs1377 INR 2.1 01/30/2016 Pt Caj6200 Low Intensity - 1.5-2.0 01/30/2016 Pt Knp6465 Mod intensity - 2.0-3.0 01/30/2016 Pt Mse6508 Hi intensity - 3.0-4.0 01/30/2016 Lipid Ord30 CHOL 104 mg/dL 01/30/2016 Lipid Ord30 HDL 19.0 mg/dl 01/30/2016 Lipid Ord30 TRIG 137 mg/dL 01/30/2016 Lipid Ord30 LDL 58 mg/dL 01/30/2016 Lipid Ord30 C/HDL 5.5 Ratio 01/30/2016 Pt Mwl4771 PT 35.2 seconds 12/17/2015 Pt Wib9259 INR 3.8 12/17/2015 Pt Ecq6005 Low Intensity - 1.5-2.0 12/17/2015 Pt Jpd0387 Mod intensity - 2.0-3.0 12/17/2015 Pt Sxt1163 Hi intensity - 3.0-4.0 12/17/2015 Comp Metabolic Qhl421 NA 140 mEq/L 10/25/2015 Comp Metabolic Pfx792 K 4.2 mEq/L 10/25/2015 Comp Metabolic Qtk378 CL 107 mEq/L 10/25/2015 Comp Metabolic Cco555 CO2 25.0 mEq/L 10/25/2015 Comp Metabolic Ate231 ANION GAP 12 10/25/2015 Comp Metabolic Ynp615 GLUCOSE 105 mg/dL 10/25/2015 Comp Metabolic Fxb919 Creat 1.2 mg/dL 10/25/2015 Comp Metabolic Zmj422 eGFR 61 ml/min/1.73m2 10/25/2015 Comp Metabolic Xth378 BUN 31 mg/dL 10/25/2015 Comp Metabolic Bsp250 B/C Ratio 25.4 Ratio 10/25/2015 Comp Metabolic Lhy888 CALCIUM 9.5 mg/dL 10/25/2015 Comp Metabolic Iom410 ALK PHOS 37 U/L 10/25/2015 Comp Metabolic Exu092 AST(SGOT) 23 U/L 10/25/2015 Comp Metabolic Nna513 ALT(SGPT) 23 U/L 10/25/2015 Comp Metabolic Ius333 BILI T 0.6 mg/dL 10/25/2015 Comp Metabolic Xmw951 ALBUMIN 4.2 g/dL 10/25/2015 Comp Metabolic Izf627 TPRO 7.1 g/dL 10/25/2015 Comp Metabolic Jao734 GLOB 3.0 g/dL 10/25/2015 Comp Metabolic Mbp914 A/G Ratio 1.4 Ratio 10/25/2015 Comp Metabolic Ajy383 Osmo 286 mOsmo 10/25/2015 Pt Wic6199 PT 29.9 seconds 10/25/2015 Pt Nin2156 INR 3.1 10/25/2015 Pt Zlf4524 Low Intensity - 1.5-2.0 10/25/2015 Pt Vev7603 Mod intensity - 2.0-3.0 10/25/2015 Pt Wgf2020 Hi intensity - 3.0-4.0 10/25/2015 Tsh Ord6 [...] 28.3 pg 10/25/2015 Cbc With Differential Ord2 [place]% 8.7 % 10/25/2015 Cbc With Differential Ord2 MCHC 34.1 pg 10/25/2015 Cbc With Differential Ord2 Eos% 1.8 % 10/25/2015 Cbc With Differential Ord2 Baso% 0.1 % 10/25/2015 Cbc With Differential Ord2 PLT 309 K/ul 10/25/2015 Cbc With Differential Ord2 Neut ABS# 5.19 K/ul 10/25/2015 Cbc With Differential Ord2 RDW 20.1 % 10/25/2015 Cbc With Differential Ord2 Lymph ABS# 1.60 K/ul 10/25/2015 Cbc With Differential Ord2 [place] ABS# 0.7 K/ul 10/25/2015 Cbc With Differential Ord2 Eos ABS# 0.1 K/ul 10/25/2015 Cbc With Differential Ord2 Baso ABS# 0.0 K/ul 10/25/2015 Pt Vmu1170 PT 31.8 seconds 09/26/2015 Pt Ozi6905 INR 3.3 09/26/2015 Pt Vty8500 Low Intensity - 1.5-2.0 09/26/2015 Pt Qmr6884 Mod intensity - 2.0-3.0 09/26/2015 Pt Hht7035 Hi intensity - 3.0-4.0 09/26/2015 Pt Kya2932 PT 15.7 seconds 09/10/2015 Pt Tad8694 INR 1.3 09/10/2015 Pt Hmk9979 Low Intensity - 1.5-2.0 09/10/2015 Pt Gea3248 Mod intensity - 2.0-3.0 09/10/2015 Pt Oef0188 Hi intensity - 3.0-4.0 09/10/2015 Pt Tyh4084 PT 22.0 seconds 08/27/2015 Pt Jmc2450 INR 2.0 08/27/2015 Pt Dly0720 Low Intensity - 1.5-2.0 08/27/2015 Pt Eez9174 Mod intensity - 2.0-3.0 08/27/2015 Pt Eyx4200 Hi intensity - 3.0-4.0 08/27/2015 Pt Vtk8134 PT 22.0 seconds 03/20/2015 Pt Zza7610 INR 2.0 03/20/2015 Pt Pxw7032 Low Intensity - 1.5-2.0 03/20/2015 Pt Jgh2020 Mod intensity - 2.0-3.0 03/20/2015 Pt Lxd3541 Hi intensity - 3.0-4.0 03/20/2015 Lipid Ord30 [...] Ord2 RDW 18.1 % 03/20/2015 Comp Metabolic Itq343 NA 140 mEq/L 03/20/2015 Comp Metabolic Acn547 K 4.3 mEq/L 03/20/2015 Comp Metabolic Zdd617 CL 109 mEq/L 03/20/2015 Comp Metabolic Emr698 CO2 22.0 mEq/L 03/20/2015 Comp Metabolic Czp413 ANION GAP 13 03/20/2015 Comp Metabolic Nwn336 GLUCOSE 100 mg/dL 03/20/2015 Comp Metabolic Lhc228 Creat 1.1 mg/dL 03/20/2015 Comp Metabolic Xxv320 eGFR 67 ml/min/1.73m2 03/20/2015 Comp Metabolic Wae555 BUN 18 mg/dL 03/20/2015 Comp Metabolic Tgs114 B/C Ratio 15.9 Ratio 03/20/2015 Comp Metabolic Lka916 CALCIUM 9.3 mg/dL 03/20/2015 Comp Metabolic Pgq577 ALK PHOS 41 U/L 03/20/2015 Comp Metabolic Mjy889 AST(SGOT) 21 U/L 03/20/2015 Comp Metabolic Ujy138 ALT(SGPT) 19 U/L 03/20/2015 Comp Metabolic Vag110 BILI T 0.8 mg/dL 03/20/2015 Comp Metabolic Bxs358 ALBUMIN 4.3 g/dL 03/20/2015 Comp Metabolic Ked812 TPRO 7.5 g/dL 03/20/2015 Comp Metabolic Bnk870 GLOB 3.2 g/dL 03/20/2015 Comp Metabolic Che437 A/G Ratio 1.4 Ratio 03/20/2015 Comp Metabolic Vfq474 Osmo 281 mOsmo 03/20/2015 Tsh Ord6 hTSH II 1.69 uIU/mL 03/20/2015 Pt Ixj5007 PT 23.7 seconds 02/20/2015 Pt Ozu1008 INR 2.2 02/20/2015 Pt Qih6765 Low Intensity - 1.5-2.0 02/20/2015 Pt Lde4868 Mod intensity - 2.0-3.0 02/20/2015 Pt Nod9574 Hi intensity - 3.0-4.0 02/20/2015 Pt Knd5608 PT 23.6 seconds 02/15/2015 Pt Oun6216 INR 2.2 02/15/2015 Pt Hop6526 Low Intensity - 1.5-2.0 02/15/2015 Pt Swm5970 Mod intensity - 2.0-3.0 02/15/2015 Pt Dmz7765 Hi intensity - 3.0-4.0 02/15/2015 Pt Lyg6636 PT 25.2 seconds 02/12/2015 Pt Ghi8256 INR 2.4 02/12/2015 Pt Rdq6774 Low Intensity - 1.5-2.0 02/12/2015 Pt Sfm2597 Mod intensity - 2.0-3.0 02/12/2015 Pt Kmw3121 Hi intensity - 3.0-4.0 02/12/2015 Pt Vkk7205 PT 25.8 seconds 12/27/2014 Pt Rgf9959 INR 2.4 12/27/2014 Pt Jpv6627 Low Intensity - 1.5-2.0 12/27/2014 Pt Dzk9517 Mod intensity - 2.0-3.0 12/27/2014 Pt Gmm3917 Hi intensity - 3.0-4.0 12/27/2014 Comp Metabolic Emw408 NA 138 mEq/L 12/18/2014 Comp Metabolic Cnf076 K 4.3 mEq/L 12/18/2014 Comp Metabolic Hme253 CL 107 mEq/L 12/18/2014 Comp Metabolic Jjp820 CO2 25.0 mEq/L 12/18/2014 Comp Metabolic Pzk119 ANION GAP 10 12/18/2014 Comp Metabolic Wlv165 GLUCOSE 105 mg/dL 12/18/2014 Comp Metabolic Sdm787 Creat 1.1 mg/dL 12/18/2014 Comp Metabolic Tbb058 eGFR 69 ml/min/1.73m2 12/18/2014 Comp Metabolic Cak312 BUN 16 mg/dL 12/18/2014 Comp Metabolic Xou974 B/C Ratio 14.5 Ratio 12/18/2014 Comp Metabolic Hhe492 CALCIUM 9.9 mg/dL 12/18/2014 Comp Metabolic Vvm593 ALK PHOS 39 U/L 12/18/2014 Comp Metabolic Jtu039 AST(SGOT) 19 U/L 12/18/2014 Comp Metabolic Ecz591 ALT(SGPT) 18 U/L 12/18/2014 Comp Metabolic Noi433 BILI T 0.7 mg/dL 12/18/2014 Comp Metabolic Pzs164 ALBUMIN 4.4 g/dL 12/18/2014 Comp Metabolic Vha668 TPRO 7.8 g/dL 12/18/2014 Comp Metabolic Tcx085 GLOB 3.4 g/dL 12/18/2014 Comp Metabolic Ntf650 A/G Ratio 1.3 Ratio 12/18/2014 Comp Metabolic Vpo952 Osmo 277 mOsmo 12/18/2014 Pt Ocv2340 PT 26.4 seconds 12/18/2014 Pt Jfn8567 INR 2.5 12/18/2014 Pt Pdx3815 Low Intensity - 1.5-2.0 12/18/2014 Pt Oet2316 Mod intensity - 2.0-3.0 12/18/2014 Pt Ste0613 Hi intensity - 3.0-4.0 12/18/2014 Cbc With [...] Lipid Ord30 C/HDL 3.9 Ratio 12/18/2014 ESR [id number] ESR 28 MM/HR 07/14/2012 CRP [id number] CRP 0.4 MG/DL 07/13/2012 PT/MC [id number] PRO TIME 24.6 SEC 07/13/2012 PT/MC [id number] INR MCMC 2.2 07/13/2012 Review of Systems [...] 1995 Ears/Nose/Throat oral cavity/pharynx/larynx Overall: no masses 02/19/2014 [...] affect 02/13/2014 None Full Exam - General 1995 Ears/Nose/Throat [...] clear 02/08/2014 None Full Exam - General 1995 Ears/Nose/Throat oral cavity/pharynx/larynx Overall: no masses 02/08/2014 [...] clear 02/01/2013 None Full Exam - General 1995 Ears/Nose/Throat oral cavity/pharynx/larynx Overall: oral mucosa clear 02/01/2013 None Full Exam - General 1995 Ears/Nose/Throat oral cavity/pharynx/larynx Overall: oropharyngeal mucosa clear 02/01/2013 None Full Exam - General 1995 Ears/Nose/Throat oral cavity/pharynx/larynx Overall: no masses 02/01/2013 [...] rate 09/01/2012 None Full Exam - General 1995 Cardiovascular [...] distress 09/01/2012 None Full Exam - General 1994 Constitutional general appearance Overall: well nourished 09/01/2012 [...] masses 06/08/2012 None Full Exam - General 1995 Respiratory auscultation Overall: breath sounds clear bilaterally 06/08/2012 None Full Exam - General 1995 Respiratory respiratory effort/rhythm Overall: no retractions 06/08/2012 None Full Exam - General 1995 Respiratory respiratory effort/rhythm Overall: normal rate 06/08/2012 None Full Exam - General 1995 Cardiovascular auscultation of heart Overall: regular rate 06/08/2012 None Full Exam - General 1995 Cardiovascular auscultation of heart Overall: normal heart sounds 06/08/2012 None Full Exam - General 1995 Cardiovascular auscultation of heart Systolic murmur: holosystolic 06/08/2012 None Full Exam - General 1994 Cardiovascular auscultation of heart Systolic murmur grade: II/ 06/08/2012 None Full Exam - General 1994 Cardiovascular extremities Overall: no clubbing 06/08/2012 None [...] 1995 Ears/Nose/Throat oral cavity/pharynx/larynx Overall: no masses 05/25/2012 [...] 1994 Ears/Nose/Throat oral cavity/pharynx/larynx Overall: no masses 10/21/2011 [...] protuberant 10/21/2011 None Full Exam - General 1994 [...] accomodation 05/25/2011 None Full Exam - General 1995 [...] 1995 Ears/Nose/Throat oral cavity/pharynx/larynx Overall: no masses 05/25/2011 [...] Codes Date URINALYSIS NONAUTO W/O SCOPE CPT-4: 36821 04/05/2017 PPPS, SUBSEQ VISIT CPT -4: G0439 04/17/2016 ADMIN INFLUENZA VIRUS VAC CPT-4: G0008 02/21/2016 FLU VACC PRSV FREE INC ANTIG Formatting Model/CDA Sections, Assigned to/Tona Helm CPT-4: 35890Qghnzmy 02/21/2016 TRIAMCINOLONE ACET INJ NOS CPT-4: J3301 08/02/2015 DRAIN/INJECT JOINT/BURSA CPT-4: 57534 08/02/2015 ADMIN INFLUENZA VIRUS VAC CPT-4: G0008 03/20/2015 FLU VACC PRSV FREE INC ANTIG Formatting Model/CDA Sections, Assigned to/Tona Helm CPT-4: 95099Latnugp 03/20/2015 FLU VACC 4 BEHZAD 3 YRS PLUS IM SNOMED CT: 17097278 CPT-4: 67081 02/08/2014 ADMIN INFLUENZA VIRUS VAC CPT-4: G0008 02/08/2014 TRIAMCINOLONE ACET INJ NOS CPT-4: J3301 05/01/2013 THER/PROPH/DIAG INJ SC/IM CPT-4: 46519 05/01/2013 ADMIN INFLUENZA VIRUS VAC CPT-4: G0008 02/01/2013 FLULAVAL VACC, 3 YRS & >, IM CPT-4: Q2036 02/01/2013 ADMIN PNEUMOCOCCAL VACCINE SNOMED CT: 05669928 CPT-4: G0009 02/01/2013 Pneumococcal Polysaccharide Vaccine, 23-Valent, Ad CPT-4: 86824 02/01/2013 DESTRUCT PREMALG LESION CPT-4: 10152 09/07/2012 DESTRUCT PREMALG LES 2-14 CPT-4: 14430 09/07/2012 ROUTINE VENIPUNCTURE CPT-4: 70824 07/13/2012 [id number] EST. PATIENT, LEVEL IV CPT-4: 09763 06/08/2012 ROCEPHIN, PER 250 MG CPT-4: J0696 03/17/2012 TRIAMCINOLONE ACET INJ NOS CPT-4: J3301 03/17/2012 THER/PROPH/DIAG INJ SC/IM CPT-4: 69541 03/17/2012 INJ TRIGGER POINT 1/2 MUSCL CPT-4: 79636 06/24/2011 TRIAMCINOLONE ACET INJ NOS CPT-4: J3301 06/24/2011 ROUTINE VENIPUNCTURE CPT-4: 68264 01/30/2011 ROCEPHIN, PER 250 MG CPT-4: J0696 01/30/2011 THER/PROPH/DIAG INJ SC/IM CPT-4: 45032 01/30/2011 ROCEPHIN, PER 250 MG CPT-4: J0696 01/29/2011 THER/PROPH/DIAG INJ SC/IM CPT-4: 43233 01/29/2011 AIRWAY INHALATION TREATMENT CPT-4: 85449 01/29/2011 PRESCRIP TRANSMIT VIA ERX SY CPT-4: G8553 01/29/2011 Vital Signs Date Vital 03/09/2017 Blood Pressure 1: 136/64 Code : 8480-6 BMI: 28.7 Code : 92285-2 Heart Rate 1 : 68 bpm Height: 5'10" SpO2: 94% Weight: 197 lbs 8 oz 12/01/2016 Blood Pressure 1: 124/68 Code : 8480-6 BMI: 27.7 Code : 58640-1 Heart Rate 1 : 70 bpm Height: 5'10" SpO2: 94% Weight: 190 lbs 11/26/2016 Blood Pressure 1: 120/72 Code : 8480-6 Heart Rate 1: 73 bpm SpO2: 97% Weight: 190 lbs 8 oz 08/04/2016 Blood Pressure 1: 138/78 Code : 8480-6 BMI: 29.4 Code : 27824-3 Heart Rate 1 : 69 bpm Height: 5'10" SpO2: 97% Weight: 202 lbs 04/17/2016 Blood Pressure 1: 128/60 Code : 8480-6 BMI: 29.4 Code : 75800-4 Heart Rate 1 : 70 bpm Height: 5'10" SpO2: 97% Waist Measure (cm): 97 cm Weight: 202 lbs 04/07/2016 Blood Pressure 1: 132/78 Code : 8480-6 BMI: 29.0 Code : 30524-8 Heart Rate 1 : 78 bpm Height: 5'10" SpO2: 98% Weight: 199 lbs 12/04/2015 Blood Pressure 1: 120/62 Code : 8480-6 BMI: 28.4 Code : 81270-9 Heart Rate 1 : 80 bpm Height: 5'10" SpO2: 97% Weight: 195 lbs 10/29/2015 Blood Pressure 1: 108/58 Code : 8480-6 BMI: 27.8 Code : 77381-7 Heart Rate 1 : 78 bpm Height: 5'10" SpO2: 98% Weight: 191 lbs 08/02/2015 Blood Pressure 1: 148/82 Code : 8480-6 Heart Rate 1: 63 bpm Height: 5'10" SpO2: 98% Weight: 06/25/2015 Blood Pressure 1: 150/76 Code : 8480-6 Blood Pressure 1: 146/78 Code: 8480-6 BMI: 30.3 Code: 90315-6 Heart Rate 1: 89 bpm Height: 5'10" SpO2: 97% Weight: 208 lbs 03/21/2015 Blood Pressure 1: 136/80 Code : 8480-6 BMI: 29.3 Code : 52232-1 Heart Rate 1 : 72 bpm Height: 5'10" Weight: 201 lbs 02/22/2015 Blood Pressure 1: 156/78 Code : 8480-6 Blood Pressure 1: 140/80 Code: 8480-6 BMI: 29.5 Code: 38304-6 Heart Rate 1: 74 bpm Height: 5'10" SpO2: 97% Weight: 203 lbs 02/12/2015 Blood Pressure 1: 140/88 Code : 8480-6 BMI: 29.8 Code : 90097-1 Heart Rate 1 : 81 bpm Height: 5'10" SpO2: 95% Temperature: 36.8 (C) / 98.2 (F) Weight: 205 lbs 12/28/2014 Blood Pressure 1: 126/64 Code : 8480-6 BMI: 30.1 Code : 80463-8 Heart Rate 1 : 71 bpm Height: 5'10" SpO2: 96% Weight: 207 lbs 12/19/2014 Blood Pressure 1: 132/66 Code : 8480-6 BMI: 29.8 Code : 11377-3 Heart Rate 1 : 68 bpm Height: 5'10" SpO2: 95% Temperature: 36.5 (C) / 97.7 (F) Weight: 205 lbs 08/22/2014 Blood Pressure 1: 140/82 Code : 8480-6 BMI: 30.6 Code : 85474-5 Heart Rate 1 : 90 bpm Height: 5'10" SpO2: 97% Weight: 210 lbs 05/23/2014 Blood Pressure 1: 118/64 Code : 8480-6 BMI: 30.6 Code : 03633-7 Heart Rate 1 : 68 bpm Height: 5'10" Weight: 210 lbs 03/19/2014 Blood Pressure 1: 138/88 Code : 8480-6 BMI: 29.4 Code : 68625-4 Heart Rate 1 : 86 bpm Height: 5'10" Weight: 202 lbs 03/05/2014 Blood Pressure 1: 114/72 Code : 8480-6 BMI: 28.4 Code : 76590-1 Heart Rate 1 : 93 bpm Height: 5'10" Weight: 195 lbs 02/19/2014 Blood Pressure 1: 102/64 Code : 8480-6 BMI: 30.1 Code : 64175-4 Heart Rate 1 : 92 bpm Height: 5'10" SpO2: 96% Weight: 207 lbs 02/13/2014 Blood Pressure 1: 128/68 Code : 8480-6 BMI: 31.0 Code : 53037-4 Heart Rate 1 : 76 bpm Height: 5'10" SpO2: 94% Weight: 213 lbs 02/08/2014 Blood Pressure 1: 122/62 Code : 8480-6 BMI: 30.9 Code : 53991-6 Heart Rate 1 : 74 bpm Height: 5'10" Respiratory Rate: 18 bpm Weight: 212 lbs 01/18/2014 Blood Pressure 1: 130/82 Code : 8480-6 BMI: 31.9 Code : 31917-6 Heart Rate 1 : 108 bpm Height: 5'10 " Respiratory Rate: 18 bpm SpO2: 95% Temperature: 37.5 (C) / 99.5 (F ) Weight: 219 lbs 10/10/2013 Blood Pressure 1: 140/82 Code : 8480-6 BMI: 32.6 Code : 21507-9 Heart Rate 1 : 68 bpm Height: 5'10" Weight: 224 lbs 08/15/2013 Blood Pressure 1: 158/82 Code : 8480-6 BMI: 32.7 Code : 18252-5 Heart Rate 1 : 72 bpm Height: 5'10" Weight: 225 lbs 05/16/2013 Blood Pressure 1: 148/84 Code : 8480-6 BMI: 32.6 Code : 61999-1 Heart Rate 1 : 84 bpm Height: 5'10" Weight: 224 lbs 05/01/2013 Blood Pressure 1: 174/92 Code : 8480-6 BMI: 32.6 Code : 45572-4 Heart Rate 1 : 76 bpm Height: 5'10" Weight: 224 lbs 02/01/2013 Blood Pressure 1: 110/64 Code : 8480-6 BMI: 32.6 Code : 33948-1 Heart Rate 1 : 80 bpm Height: 5'10" Weight: 224 lbs 11/01/2012 Blood Pressure 1: 132/70 Code : 8480-6 BMI: 32.7 Code : 13141-0 Heart Rate 1 : 92 bpm Height: 5'10" Weight: 225 lbs 09/07/2012 Blood Pressure 1: 164/72 Code : 8480-6 Heart Rate 1: 76 bpm 09/01/2012 Blood Pressure 1: 136/78 Code : 8480-6 BMI: 32.7 Code : 99786-5 Heart Rate 1 : 92 bpm Height: 5'10" Weight: 225 lbs 07/07/2012 Blood Pressure 1: 172/90 Code : 8480-6 Heart Rate 1: 81 bpm SpO2: 98% Weight: 224 lbs 06/28/2012 Blood Pressure 1: 148/96 Code : 8480-6 Heart Rate 1: 76 bpm SpO2: 97% Temperature: 36.3 (C) / 97.4 (F) Weight: 06/08/2012 Blood Pressure 1: 152/92 Code : 8480-6 BMI: 32.5 Code : 92068-7 Heart Rate 1 : 80 bpm Height: [...] Code : 8480-6 BMI: 32.5 Code : 68343-2 Heart Rate 1 : 68 bpm Height: 5'10" Weight: 223 lbs 10/21/2011 Blood Pressure 1: 138/62 Code : 8480-6 BMI: 31.6 Code : 34565-0 Heart Rate 1 : 64 bpm Height: [...] Code : 8480-6 BMI: 32.2 Code : 50342-5 Heart Rate 1 : 72 bpm Height: 5'10" Respiratory Rate: 16 bpm Weight: 221 lbs 02/03/2011 Blood Pressure 1: 137/76 Code : 8480-6 BMI: 32.2 Code : 10243-8 Heart Rate 1 : 81 bpm Height: 5'10" Weight: 221 lbs 01/30/2011 Blood Pressure 1: 106/60 Code : 8480-6 Heart Rate 1: 76 bpm Respiratory Rate : 20 bpm SpO2: 96% Weight: 220 lbs 01/29/2011 Blood Pressure 1: 84/52 Code : 8480-6 BMI: 31.7 Code : 95707-2 Heart Rate 1 : 87 bpm Height: [...] data Encounters Encounter Performer Location Codes Date ([id number]) 13078 EST. PATIENT, LEVEL IV Diagnosis: Essential (primary) hypertension[ICD10: I10] Diagnosis: Mixed hyperlipidemia[ICD10: E78.2] [facility] CPT-4: 92404 03/09/2017 ([id number]) 68560 EST. PATIENT, LEVEL IV Diagnosis: Essential (primary) hypertension[ICD10: I10] Diagnosis: Mixed hyperlipidemia[ICD10: E78.2] Diagnosis: Low back pain[ICD10: M54.5] Verna Ferro MD [facility] CPT- 4: 07121 12/01/2016 ([id number]) 67143 EST. 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 PATIENT, LEVEL IV Diagnosis: Essential (primary) hypertension[ICD10: I10] Diagnosis: Mixed hyperlipidemia[ICD10: E78.2] Diagnosis: Cough[ICD10: R05] Verna Ferro MD [facility] CPT-4: 78028 08/04/2016 ([id number]) 03517 EST. PATIENT, LEVEL IV Diagnosis: Essential (primary) hypertension[ICD10: I10] Diagnosis: Mixed hyperlipidemia[ICD10: E78.2] Diagnosis: Low back pain[ICD10: M54.5] Diagnosis: Cervicalgia[ICD10: M54.2] Verna Ferro MD, [facility] CPT-4: 76083 04/07/2016 ([id number]) 14214 EST. PATIENT, LEVEL III Diagnosis: Essential (primary) hypertension[ICD10: I10] Diagnosis: Mixed hyperlipidemia[ICD10: E78.2] Verna Ferro MD, [facility] CPT-4: 72856 12/04/2015 ([id number]) 74045 EST. PATIENT, LEVEL IV Diagnosis: Essential (primary) hypertension[ICD10: I10] Diagnosis: half-way (current) use of anticoagulants[ICD10: Z79.01] Verna Ferro MD, [facility] CPT-4: 37894 10/29/2015 [id number] EST. PATIENT, LEVEL IV Diagnosis: Low back pain[ICD10: M54.5] Maria E Ferro MD, [facility] CPT-4 : 16992 08/02/2015 ([id number]) 55600 EST. 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 PATIENT, LEVEL IV Diagnosis: Essential (primary) hypertension[ICD10: I10] Diagnosis: Mixed hyperlipidemia[ICD10: E78.2] Verna Ferro MD, [facility] CPT-4: 84293 03/21/2015 ([id number]) 69990 EST. PATIENT, LEVEL III Diagnosis: Essential (primary) hypertension[ICD10: I10] Diagnosis: Pneumonia, unspecified organism[ICD10: J18.9] Diagnosis: Pain in left knee[ICD10: M25.562] Nydia Ferro MD [facility] CPT-4: 71690 02/22/2015 ([id number]) 21233 EST. PATIENT, LEVEL III Diagnosis: Pneumonia, unspecified organism[ICD10: J18.9] Verna Ferro MD, [facility] CPT-4: 12697 02/12/2015 ([id number]) 22081 EST. PATIENT, LEVEL III Diagnosis: ESSENTIAL HYPERTENSION[ICD9: 401.9] Diagnosis: Left knee pain[ICD9: 719.46] Nydia Ferro MD [facility] CPT-4: 46637 12/28/2014 ([id number]) 47520 EST. PATIENT, LEVEL IV Diagnosis: HYPERLIPIDEMIA[ICD9: 272.4] Diagnosis: ESSENTIAL HYPERTENSION[ICD9: 401.9] Diagnosis: H/O long-term (current) use of anticoagulants[ICD9: V58.61] Verna Ferro MD , [facility] CPT-4: 72352 12/19/2014 ([id number]) 84691 EST. PATIENT, LEVEL IV Diagnosis: ESSENTIAL HYPERTENSION[ICD9: 401.9] Diagnosis: HYPERLIPIDEMIA[ICD9: 272.4] Diagnosis: H/O long-term (current) use of anticoagulants[ICD9: V58.61] [facility] CPT-4: 84568 08/22/2014 ([id number]) 13117 EST. PATIENT, LEVEL IV Diagnosis: ESSENTIAL HYPERTENSION[ICD9: 401.9] Diagnosis: HYPERLIPIDEMIA[ICD9: 272.4] Verna Ferro MD [facility] CPT- 4: 72745 05/23/2014 ([id number]) 44877 EST. PATIENT, LEVEL III Diagnosis: HYPERLIPIDEMIA[ICD9: 272.4] Diagnosis: ESSENTIAL HYPERTENSION[ICD9: 401.9] Verna Ferro MD [facility] CPT-4: 92693 03/19/2014 ([id number]) 83499 EST. PATIENT, LEVEL III Diagnosis: Diarrhea[ICD9: 787.91] Verna Ferro MD [facility] CPT-4: 65395 03/05/2014 ([id number]) 85307 EST. PATIENT, LEVEL III Diagnosis: Abdominal pain[ICD9: 789.00] Diagnosis: Abdominal abscess[ICD9: 567.22] Verna Ferro MD [facility] CPT- 4: 28664 02/19/2014 ([id number]) 08992 EST. PATIENT, LEVEL III Diagnosis: Cellulitis of oral soft tissues[ICD9: 528.3] Verna Ferro MD [facility] CPT-4: 36813 02/13/2014 ([id number]) 50374 EST. PATIENT, LEVEL III Diagnosis: ESSENTIAL HYPERTENSION[ICD9: 401.9] Diagnosis: Abdominal pain[ICD9: 789.00] Verna Ferro MD [facility] CPT- 4: 49475 02/08/2014 ([id number]) Patient admitted to the hospital from clinic (NO CHARGE) Diagnosis: Abdominal pain[ICD9: 789.00] Diagnosis: Right lower quadrant abdominal pain[ICD9: 789.03] Diagnosis: Rebound tenderness[ICD9: 789.60] Diagnosis: FEVER NOS[ICD9: 780.60] Diagnosis: Nausea alone[ICD9: 787.02] Diagnosis: ESSENTIAL HYPERTENSION[ICD9: 401.9] Diagnosis: Renal insufficiency[ICD9: 593.9] Diagnosis: Dehydration[ICD9: 276.51] Verna Ferro MD [facility] CPT-4: 09717U 01/18/2014 ([id number]) 76941 EST. PATIENT, LEVEL IV Diagnosis: ESSENTIAL HYPERTENSION[SNOMED: 59887574] Diagnosis: HYPERLIPIDEMIA[ICD9: 272.4] Diagnosis: Nodule of tongue[ICD9: 784.2] Verna Ferro MD [facility] CPT- 4: 67180 10/10/2013 ([id number]) 46652 EST. PATIENT, LEVEL IV Diagnosis: ESSENTIAL HYPERTENSION[SNOMED: 88531621] Diagnosis: HYPERLIPIDEMIA[ICD9: 272.4] Verna Ferro MD [facility] CPT- 4: 04767 08/15/2013 ([id number]) 17535 EST. PATIENT, LEVEL III Diagnosis: COUGH[ICD9: 786.2] Diagnosis: RENAL & URETERAL DIS NOS[ICD9: 593.9] Verna Ferro MD [facility] CPT-4: 30732 05/16/2013 ([id number]) 56740 EST. PATIENT, LEVEL III Diagnosis: ESSENTIAL HYPERTENSION[SNOMED: 69404787] Diagnosis: COUGH[ICD9: 786.2] Diagnosis: PNEUMONIA (CAP)[ICD9: 486] Verna Ferro MD [facility] CPT- 4: 87097 05/01/2013 ([id number]) 66379 EST. PATIENT, LEVEL IV Diagnosis: ESSENTIAL HYPERTENSION[SNOMED: 41052249] Diagnosis: HYPERLIPIDEMIA[ICD9: 272.4] Verna Ferro MD [facility] CPT- 4: 87019 02/01/2013 ([id number]) 79237 EST. PATIENT, LEVEL III Diagnosis: ESSENTIAL HYPERTENSION[SNOMED: 69590042] Verna Ferro MD [facility] CPT-4: 14338 11/01/2012 ([id number]) 66168 EST. PATIENT, LEVEL III Diagnosis: ESSENTIAL HYPERTENSION[SNOMED: 87460606] Diagnosis: Multiple actinic keratoses[ICD9: 702.0] Verna Ferro MD [facility] CPT-4: 88774 09/01/2012 ([id number]) 09125 EST. PATIENT, LEVEL III Diagnosis: ESSENTIAL HYPERTENSION[SNOMED: 26998108] Diagnosis: CRP elevated[ICD9: 790.95] Verna Ferro MD [facility] CPT- 4: 94467 07/07/2012 ([id number]) 08086 EST. PATIENT, LEVEL IV Diagnosis: BACTERIAL PNEUMONIA NEC[ICD9: 482.89] Diagnosis: Cough[ICD9: 786.2] Verna Ferro MD [facility] CPT-4: 34540 06/28/2012 ([id number]) 84967 EST. PATIENT, LEVEL IV Diagnosis: ESSENTIAL HYPERTENSION[SNOMED: 44798807] Diagnosis: Constipation[ICD9: 564.00] Diagnosis: H/O long-term (current) use of anticoagulants[ICD9: V58.61] Verna Ferro MD [facility] CPT-4: 39276 05/25/2012 65228 EST. PATIENT, LEVEL IV Diagnosis: Pneumonia[ICD9: 486] Diagnosis: COUGH[ICD9: 786.2] Diagnosis: RENAL & URETERAL DIS NOS[ICD9: 593.9] Nydia Ferro MD [facility] CPT-4: 55907 03/17/2012 ([id number]) 32967 EST. PATIENT, LEVEL IV Diagnosis: ESSENTIAL HYPERTENSION[SNOMED: 51007614] Diagnosis: HYPERLIPIDEMIA[ICD9: 272.4] Diagnosis: Renal insufficiency[ICD9: 593.9] Verna Ferro MD [facility] CPT-4: 59329 02/17/2012 01611 EST. PATIENT, LEVEL IV Diagnosis: ESSENTIAL HYPERTENSION[SNOMED: 64777582] Diagnosis: Constipation - functional[ICD9: 564.09] Diagnosis: COUGH[ICD9: 786.2] Verna Ferro MD [facility] CPT-4: 71391 10/21/2011 ([id number]) 64516 EST. PATIENT, LEVEL IV Diagnosis: ESSENTIAL HYPERTENSION[SNOMED: 43022235] Diagnosis: HYPERLIPIDEMIA[ICD9: 272.4] Diagnosis: Sacroiliitis[ICD9: 720.2] Verna Ferro MD [facility] CPT-4: 26360 06/24/2011 ([id number]) 21964 EST. PATIENT, LEVEL IV Diagnosis: ESSENTIAL HYPERTENSION[SNOMED: 97883111] Diagnosis: HYPERLIPIDEMIA[ICD9: 272.4] Verna Ferro MD [facility] CPT- 4: 24857 05/25/2011 06199 EST. PATIENT, LEVEL IV Diagnosis: ESSENTIAL HYPERTENSION[SNOMED: 56397304] Diagnosis: Fatigue[ICD9: 780.79] Verna Ferro MD, [facility] CPT-4: 79300 03/23/2011 92404 EST. PATIENT, LEVEL IV Diagnosis: Cyst of ear canal[ICD9: 380.89] Diagnosis: PNEUMONIA (CAP)[ICD9: 486] Diagnosis: HYPOTENSION[ICD9: 458.9] Nydia Ferro MD, [facility] CPT-4: 95831 02/03/2011 52268 EST. PATIENT, LEVEL IV Diagnosis: Dehydration[ICD9: 276.51] Diagnosis: PNEUMONIA (CAP)[ICD9: 486] Nydia Ferro MD, [facility] CPT-4: 45965 01/30/2011 91100 EST. PATIENT, LEVEL IV Diagnosis: PNEUMONIA (CAP)[ICD9: 486] Diagnosis: Dehydration[ICD9: 276.51] Diagnosis: HYPOTENSION[ICD9: 458.9] Nydia Ferro MD, [facility] CPT-4: 86462 01/29/2011 Plan of Care Planned Activity Notes Codes Status Date Appointment: Maria E Pulido WPtel: [facility] [place] [address] - Annual Wellness Visit 04/22/2017 Appointment: Lab [...] to medications. 03/09/2017 Appointment: Verna Ferro WPtel: [facility] (15 min) Moderate 03/09/2017 Patient Education: Patient [...] wait to have any injections. 12/01/2016 Appointment: [facility]na [phone] (15 min) Moderate 12/01/2016 Patient Education: Patient Medication Summary Completed 12/01/2016 Patient Education: Hypertension Completed 12/01/2016 Visit Plan: half-way use of anti coagulants-unable to have injections in back due to INR too high-will check INR today-instructed patient that we can check INR before his procedure to make sure it is low enough to have the procedure done so he doesn't have to wait and get canceled again. 11/26/2016 Appointment: [phone] (30 min) Complex 11/26/2016 Patient Education: Patient [...] monitor symptoms. 08/04/2016 Appointment: [phone] (15 min) Moderate 08/04/2016 Patient Education: Patient [...] paperwork for health care surrogate. 04/17/2016 Appointment: Nyida [phone] [facility] - Annual Wellness Visit 04/17/2016 Patient Education: [...] injections. 04/07/2016 Appointment: Verna Ferro WPtel: [phone] [facility] (15 min) Moderate 04/07/2016 Patient Education: Patient [...] medications. 12/04/2015 Appointment: Verna Ferro WPtel: [phone] [facility] (15 min) Moderate 12/04/2015 Patient Education: Patient [...] been sent to the pharmacy. talk to [facility] care therapy - ask them to take you down to [employer] and show you which machines and how much on each machine you should be working on and how often to do the machines. Coumadin ( warfarin)pills - take 5mg wednesday/wednesday/wednesday/wednesday/wednesday and 1/2 pill yesi/ check inr in 2 weeks 10/29/2015 Appointment: Vern[facility] Fer[phone] (15 min) Moderate 10/29/2015 Patient Education: Patient [...] to medications. 06/25/2015 Appointment: [phone] (15 min) Moderate 06/25/2015 Patient Education: Patient Medication Summary Completed 06/25/2015 Patient Education: Hypertension Completed 06/25/2015 Care Plan: Referral Order SNOMED-CT : [id number] Ordered 06/25/2015 Visit Plan: Hypertension - well [...] injectable medications. 03/21/2015 Appointment: Vern[facility] Fer[phone] (15 min) Moderate 03/21/2015 Patient Education: Patient Medication Summary Completed 03/21/2015 Patient Education: Hypertension Completed 03/21/2015 Care Plan: Referral Order SNOMED-CT : [id number] Ordered 03/21/2015 Patient Education: Patient Medication Summary Completed 03/20/2015 Visit Plan: KSX-nynxfaityc-mr change Pneumonia-resolved Left knee pain-continue pennsaid-recommend MRI [...] Moderate 02/12/2015 Appointment: Vern[facility]el[phone] (15 min) Moderate 02/12/2015 Patient Education: Patient [...] and 3.5. 12/19/2014 Appointment: Vern[facility] Fer[facility]Ptel[phone] Follow up 12/19/2014 Patient Education: Patient Medication [...] and 3.5. 08/22/2014 Appointment: Verna Ferro WPtel: [address] [place], [place] [phone] Follow up 08/22/2014 Patient Education: Patient Medication [...] to medications. 05/23/2014 Appointment: Verna Ferro WPtel: [address] [place], [place] [address] Follow up 05/23/2014 Patient Education: Patient Medication Summary Completed 05/23/2014 Patient Education: Hypertension Completed 05/23/2014 Appointment: Verna Ferro WPtel: [address] [place], [place] [phone] [place] Follow up 05/21/2014 Appointment: Verna Ferro WPtel: [address] [place], [place] [phone] [place] Follow up 05/11/2014 Visit Plan: Hypertension [...] Care Plan: COMPLETE CBC AUTOMATED LOINC : 00432-5 Ordered 03/19/2014 Visit Plan: Diarrhea - persistent - Pt to start on probiotic three times daily x 2 weeks. Urinary urgency - pt to start on flomax Pt to restart several home medications, bring in blood pressure machine. 03/05/2014 Appointment: Verna Ferro WPtel: [facility] Follow up 03/05/2014 Patient Education: Patient Medication Summary Completed 03/05/2014 Visit Plan: Pt to see Dr. Graf at 3:30pm on Wednesday Pt to finish antibiotics and advance diet. 02/19/2014 Appointment: Verna Ferro WPtel: [facility] [place] Follow up 02/19/2014 Patient Education: Patient Medication [...] at home. 02/08/2014 Appointment: Verna Ferro WPtel: [phone] [phone] Follow up 02/08/2014 Patient Education: Patient Medication [...] pt NPO 01/18/2014 Appointment: Verna Ferro WPtel: [facility] Sick 01/18/2014 Patient Education: Patient Medication Summary [...] likely biopsy. 10/10/2013 Appointment: Verna Ferro [facility]Ptel[phone] Follow up 10/10/2013 Patient Education: Patient Medication [...] medications. 08/15/2013 Appointment: Verna Ferro WPtel: [phone] [phone] Follow up 08/15/2013 Patient Education: Patient Medication Summary Completed 08/15/2013 Patient Education: Hypertension Completed 08/15/2013 Visit Plan: Cough - improved - continue with current treatment. Elevated creatinine - recommended pt to increase water intake. 05/16/2013 Appointment: Verna Ferrotel: [phone] [phone] Follow up 05/16/2013 Patient Education: Patient Medication [...] treatment of this illness. 05/01/2013 Appointment: Verna Ferrol[phone] Follow up 05/01/2013 Patient Education: Patient Medication [...] EXERCISE AT THE [facility] IN [place] AT LEAST THREE TIMES A WEEK. 02/01/2013 Appointment: Verna Ferro [facility]Ptel[phone] [place] Follow up 02/01/2013 Patient Education: Patient [...] home. 11/01/2012 Appointment: Verna Ferro [facility]Ptel[phone] Follow up 11/01/2012 Patient Education: Patient Medication Summary Completed 11/01/2012 Patient Education: Hypertension Completed 11/01/2012 Appointment: [facility]el[phone] [place] Follow up 09/28/2012 Visit Plan: Wound [...] pathology. 09/01/2012 Appointment: Verna Ferro [facility]Ptel: [phone] Follow up 09/01/2012 Patient Education: Patient Medication [...] week. 07/07/2012 Appointment: Verna Ferro [facility]Ptel: [phone] Follow up 07/07/2012 Patient Education: Patient Medication [...] WEEK. 06/08/2012 Appointment: Verna Ferro [facility]Ptel: [phone] Follow up 06/08/2012 Patient Education: Patient Medication [...] 3.5. 05/25/2012 Appointment: Verna Ferro [facility]Ptel[phone] Follow up 05/25/2012 Patient Education: Patient Medication [...] on use. [facility] to go [facility] for chest xray and labs. He is to call or go to ER if his symptoms do not improve, or if ANY worse. Patient verbalized understanding of plan. Chronic renal disease -check labs and follow renal function closely. 03/17/2012 Appointment: Nydia Cuellar WPtel: [phone] [phone] Sick 03/17/2012 Patient Education: Patient Medication Summary [...] po bid. 02/17/2012 Appointment: Verna Ferro WPtel: [facility] Follow up 02/17/2012 Patient Education: Patient Medication [...] time. 10/21/2011 Appointment: Verna Ferro WPtel: [phone] [phone] Other 10/21/2011 Patient Education: Patient Medication Summary [...] joints bilaterally 06/24/2011 Appointment: Verna Ferro WPtel: [phone] [phone] Other 06/24/2011 Patient Education: Patient Medication Summary [...] to medications. 05/25/2011 Appointment: Verna Ferro WPtel: [address] [place] [phone] Other 05/25/2011 Patient Education: Patient Medication Summary [...] smaller supper. 03/23/2011 Appointment: Verna Ferro WPtel: [address] [place] [address] Other 03/23/2011 Patient Education: Patient Medication Summary Completed 03/23/2011 Patient Education: High Blood Pressure: Essential Hypertension Completed 2010 Appointment: Verna Ferro WPtel: [address] [place] [phone] Other 02/24/2011 Visit Plan: Cbpmpqazy-uoxdjtur-cmqbncdtx natural and expected course of this diagnosis and patient to alert me if symptoms do not follow expected course. Follow up in 3 weeks, sooner if any symptoms return. Finish antibiotic as instructed. Kvcrbltgxgb-jgmvundt-jaxaapp diovan 1/2 tab daily-monitor blood pressure daily and bring to clinic for review at next appointment. Call with any concerns-elevated blood pressure, chest pain, soa, etc. Ear lesion-right ear canal-lesion drained per Dr. Ferro-culture obtained. 02/03/2011 Visit Plan: Basgehwvm-lepxjfsj-jbxrbpkit natural and expected course of this diagnosis and patient to alert me if symptoms do not follow expected course. Follow up in 3 weeks, sooner if any symptoms return. Finish antibiotic as instructed. Nktgkdlesfs-rclflbhn-tdlwxua diovan 1/2 tab daily-monitor blood pressure daily [...] and plan. 02/03/2011 Appointment: Nydia Cuellar WPtel: [phone] Other 02/03/2011 Patient Education: Patient Medication Summary Completed 02/03/2011 Visit Plan: Pneumonia-discussed natural and expected course of this diagnosis and patient to alert me if symptoms do not follow expected course. Rocephin 1gm injection given in the office today. Continue levaquin 1/2 tab daily for 5 additional days. Follow up Wednesday in the office. Xxkiwykmxzc-npzagsxg-oqiy recheck labs today-continue to increase fluids and monitor symptoms. Hypotension-improved as well. Monitor blood pressure at home. Return to clinic Wednesday for follow up, sooner if needed. ER over the weekend with any changes or concerns. Recheck labs Wednesday a.m. 01/30/2011 Appointment: Nydia Cuellar WPtel: [phone] Other 01/30/2011 Patient Education: Patient Medication Summary [...] next week. 01/29/2011 Appointment: Nydia Cuellar WPtel: [phone] Other 01/29/2011 Patient Education: Patient Medication Summary Completed 01/29/2011 Referral: Roldan Cruz Referral Appointment Requested Referral: External, Ordering Provider Referral Appointment Requested Instructions Comment . HTN - blood pressures improved per [...] EXERCISE AT THE [facility] IN [place] AT LEAST THREE TIMES A WEEK. . [...] lunch and smaller supper. . Hypertension - too well controlled - [...] medications, bring in blood pressure machine. . Medicare Exam - today we discussed [...] [employer] paperwork for health care surrogate. . Cough - improved - continue with [...] days. Follow up Wednesday in the office. Atubklzggpu-fmnzdzks-drnr recheck labs today-continue to increase fluids and [...] - prn cough medication - monitor symptoms. I sent 2 prescriptions to [facility]. Start the zithromax today-you will take 2 [...] to patient's pharmacy and instructed on use. [facility] to go to the hosp for chest xray and labs. He is to call or go to ER if his symptoms do not improve, or if ANY worse. Patient verbalized understanding of plan. Chronic renal disease-check labs and follow renal function closely. appt with dr. hanks - at 9AM on 10/14/13 - office is on [address] - across from Dr. Camarena's office . [...] change in blood pressure readings at home. Change coumadin to 5mg on Wednesday/Wednesday//Wednesday/ Wednesday [...] INR is between 2.0 and 3.5. . KEE-wllrcsxmul-dv change Pneumonia-resolved Left knee pain-continue pennsaid-recommend MRI if symptoms do not improve- continue to wear knee brace CHECK PT/INR TODAY CONTINUE SAME DOSE OF COUMADIN UNLESS WE CALL YOU WITH CHANGES . half-way use of anti coagulants-unable to have injections [...] pustular drainage, or any other acute conerns. Restart your diovan 1/2 tab daily. Continue to monitor blood pressure daily and call with readings. May change albuterol breathing treatments to as needed only. May stop levaquin after last dose on Wednesday. Recheck kidney function and coumadin level in 2 weeks. Follow up with Dr. Ferro 3 weeks for your blood pressure. . Tvzrlejzv-xyfpsolv-xdbojbdyq natural and expected course of this diagnosis and patient to alert me if symptoms do not follow expected course. Follow up in 3 weeks, sooner if any symptoms return. Finish antibiotic as instructed. Tairagqoncc-rghofjxw-negcabd diovan 1/2 tab daily-monitor blood pressure daily [...] for INR is between 2.0 and 3.5. XRAY LEFT KNEE . Hypertension - well controlled - continue with current medications, continue with no added salt diet. Pt has been encouraged to exercise daily. The pt has been advised to call the office if there are any acute concerns about change in blood pressure readings at home. Left knee shzp-cpoanuzw-fwfokuw sent for xray . Hypertension - well [...] is expected to be 3-6 months. . Joint Injection - right SI joint [...] related, no specific treatment at this time. . Pneumonia - Pt has been diagnosed [...] findings and repeat a pt/inr on wednesday. continue to hold diovan, norvasc, trilipix and [...] Pt to finish antibiotics and advance diet. restart lipitor restart trilipix restart diovan 320mg [...] response to medications. restart lipitor restart trilipix . ADMIT FROM CLINIC TO HOSPITAL - [...] scan of abdomen and keep pt NPO Coumadin (warfarin)pills - take 5mg wednesday/wednesday/wednesday /wednesday/wednesday [...] been sent to the pharmacy. talk to [facility] home care therapy - ask them to take you down to [employer] and show you which machines and [...] been sent to the pharmacy. talk to [facility] home care therapy - ask them to take you down to [employer] and show you which machines and [...] from treatment with new injectable medications. . Hypertension - well controlled - [...] shave biopsy and sent for pathology. . Vehlranun-qulmmlsp-zlyhfjngd natural and expected course of this diagnosis and patient to alert me if symptoms do not follow expected course. Follow up in 3 weeks, sooner if any symptoms return. Finish antibiotic as instructed. Vdfcnbizure-uchceldt-cuxudev diovan 1/2 tab daily-monitor blood pressure daily [...] Patient and verbalize understanding of plan. . Hypertension - well controlled - [...] between 2.0 and 3.5. . Hypertension - uncontrolled - the pt [...]
--- OUTSIDE RECORDS SUMMARY | 2017-09-13 12:39 | XMS REPORT | CCD ---
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 smoked cigars 4 daily x 20 years. quit totally Jan 2011 01/29/[address]: 975177268 Never drinks alcohol quit 198601/29/2011 Has the patient ever used illegal drugs? 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 TAKE 1/2 TABLET BY MOUTH ON THURSDAYS. 05/31/2017 04/02/2019 Active amlodipine 10 mg tablet RxNorm: 286203 Tablet(s) TAKE ONE TABLET BY MOUTH DAILY 05/25/2017 02/18/2018 Active valsartan 160 mg tablet RxNorm: 402605 TAKE ONE TABLET BY MOUTH DAILY 04/26/2017 10/22/2017 Active carvedilol 25 mg tablet RxNorm: 165436 TAKE ONE TABLET BY MOUTH TWICE A DAY 03/22/2017 12/16/2017 Active Flomax 0.4 mg capsule RxNorm: 112345 TAKE ONE CAPSULE BY MOUTH DAILY 03/15/2017 06/13/2017 Inactive amlodipine 10 mg tablet RxNorm: 143925 TAKE ONE TABLET BY MOUTH DAILY 02/25/2017 05/24/2017 Inactive fenofibrate nanocrystallized 145 mg tablet RxNorm: 635709 TAKE ONE TABLET BY MOUTH DAILY 02/09/2017 12/05/2017 Active valsartan 160 mg tablet RxNorm: 602182 TAKE ONE TABLET BY MOUTH DAILY 01/25/2017 04/25/2017 Inactive Lipitor 80 mg tablet RxNorm: 771114 TAKE ONE TABLET BY MOUTH AT BEDTIME 11/04/2016 10/29/2017 Active valsartan 160 mg tablet RxNorm: 276242 TAKE ONE TABLET BY MOUTH DAILY 10/21/2016 01/24/2017 Inactive fenofibrate nanocrystallized 145 mg tablet RxNorm: 452446 TAKE ONE TABLET BY MOUTH DAILY 10/06/2016 02/08/2017 Inactive amlodipine 10 mg tablet RxNorm: 243010 1 Tablet(s) PO daily 02/20/2017 Inactive amlodipine 10 mg tablet RxNorm: 101311 1 Tablet(s) PO daily 09/23/2016 Inactive carvedilol 25 mg tablet RxNorm: 152366 TAKE ONE TABLET BY MOUTH TWICE A DAY 09/22/2016 03/20/2017 Inactive Coumadin 5 mg tablet RxNorm: 919794 TAKE 1 TABLET BY MOUTH ON WEDNESDAY , WEDNESDAY, WEDNESDAY, WEDNESDAY AND SUNDAYS. TAKE 1/2 TABLET BY MOUTH ON THURSDAYS. 07/07/2016 04/02/2017 Inactive fenofibrate nanocrystallized 145 mg tablet RxNorm: 917915 TAKE ONE TABLET BY MOUTH DAILY 06/10/2016 10/05/2016 Inactive valsartan 160 mg tablet RxNorm: 001095 1 Tablet(s) PO daily 04/201610/16/2016 Inactive Flomax 0.4 mg capsule RxNorm: 535129 TAKE ONE CAPSULE BY MOUTH DAILY 04/10/2016 03/05/2017 Inactive carvedilol 25 mg tablet RxNorm: 853280 TAKE ONE TABLET BY MOUTH TWICE A DAY 03/23/2016 09/18/2016 Inactive fenofibrate nanocrystallized 145 mg tablet RxNorm: 980140 TAKE ONE TABLET BY MOUTH DAILY 01/14/2016 06/09/2016 Inactive Coumadin 5 mg tablet RxNorm: 027950 Tablet(s) take 5mg daily except 1/2 pill wednesday/wednesday12/19/2015 07/06/2016 Inactive Coumadin 5 mg tablet RxNorm: 297059 Tablet(s) take 5mg wednesday/wednesday/wednesday/ wednesday and 1/2 pill wednesday//wednesday12/18/2015 12/18/2015 Inactive Lipitor 80 mg tablet RxNorm: 456336 TAKE ONE TABLET BY MOUTH AT BEDTIME 11/11/2015 11/04/2016 Inactive Lipitor 80 mg tablet RxNorm: 796441 TAKE ONE TABLET BY MOUTH AT BEDTIME 11/11/2015 11/04/2016 Inactive Lipitor 80 mg tablet RxNorm: 989858 TAKE ONE TABLET BY MOUTH AT BEDTIME 11/11/2015 11/04/2016 Inactive Lipitor 80 mg tablet RxNorm: 431658 TAKE ONE TABLET BY MOUTH AT BEDTIME 11/11/2015 11/03/2016 Inactive Coumadin 5 mg tablet RxNorm: 822423 Tablet(s) TAKE 1 TABLET BY MOUTH DAILY 10/29/2015 10/28/2015 Inactive betamethasone dipropionate 0.05 % topical ointment RxNorm: 773658 1 Application TOP QID 10/29/2015 11/04/2015 Inactive amlodipine 5 mg tablet RxNorm: 255008 1 Tablet(s) PO daily 09/23/2016 Inactive Coumadin 5 mg tablet RxNorm: 679755 Tablet(s) take 5mg wednesday/wednesday/wednesday/ wednesday/wednesday and 1/2 pill wednesday/10/29/2015 12/17/2015 Inactive valsartan 160 mg tablet RxNorm: 391898 1 Tablet(s) PO daily 04/17/2016 Inactive Norvasc 10 mg tablet RxNorm: 602206 Tablet(s) TAKE ONE TABLET BY MOUTH EVERY DAY 10/01/2015 10/28/2015 Inactive Norvasc 10 mg tablet RxNorm: 168439 Tablet(s) TAKE ONE TABLET BY MOUTH EVERY DAY 09/30/2015 09/30/2015 Inactive carvedilol 25 mg tablet RxNorm: 437743 TAKE ONE TABLET BY MOUTH TWICE A DAY 09/24/2015 03/21/2016 Inactive Coumadin 5 mg tablet RxNorm: 003806 TAKE 1 TABLET BY MOUTH ON WEDNESDAY , WEDNESDAY, WEDNESDAY, WEDNESDAY AND SUNDAYS. TAKE 1/2 TABLET BY MOUTH ON THURSDAYS. 06/28/2015 10/28/2015 Inactive fenofibrate nanocrystallized 145 mg tablet RxNorm: 491738 1 Tablet(s) PO daily 06/25/2015 01/13/2016 Inactive Diovan 160 mg tablet RxNorm: 779768 TAKE ONE TABLET BY MOUTH EVERY MORNING 05/17/2015 06/24/2015 Inactive Keflex 500 mg capsule RxNorm: 643982 1 Capsule(s) PO TID 201405/05/2015 Inactive Keflex 500 mg capsule RxNorm: 143106 1 Capsule(s) PO TID 201404/28/2015 Inactive Trilipix 135 mg capsule,delayed release RxNorm: 686892 TAKE ONE CAPSULE BY MOUTH DAILY 04/08/2015 06/24/2015 Inactive Flomax 0.4 mg capsule RxNorm: 724770 TAKE ONE CAPSULE BY MOUTH DAILY 04/03/2015 03/27/2016 Inactive Flomax 0.4 mg capsule RxNorm: 067956 Capsule(s) TAKE ONE CAPSULE BY MOUTH DAILY 04/03/2015 04/02/2015 Inactive carvedilol 25 mg tablet RxNorm: 034613 1 Tablet(s) PO BID 03/2609/21/2015 Inactive Trilipix 135 mg capsule,delayed release RxNorm: 388129 1 Capsule(s) PO daily 03/04/2015 04/02/2015 Inactive Levaquin 500 mg tablet RxNorm: 758877 1 Tablet(s) PO daily 10/201402/18/2015 Inactive Levaquin 500 mg tablet RxNorm: 529294 1 Tablet(s) PO daily 04/201512/25/2014 Inactive Lipitor 80 mg tablet RxNorm: 768908 1 Tablet(s) PO QH 201411/07/2015 Inactive Lipitor 80 mg tablet RxNorm: 514230 1 Tablet(s) PO QH 201411/12/2014 Inactive Norvasc 10 mg tablet RxNorm: 331177 TAKE ONE TABLET BY MOUTH EVERY DAY 09/26/2014 09/20/2015 Inactive Flomax 0.4 mg capsule RxNorm: 010968 TAKE ONE CAPSULE BY MOUTH DAILY 09/13/2014 03/11/2015 Inactive Norvasc 10 mg tablet RxNorm: 593860 Tablet(s) PO TAKE ONE TABLET BY MOUTH EVERY DAY 08/23/2014 09/25/2014 Inactive [SAVINGS FOR NON-COVERED DRUGS -- BIN:[id number], PCN: ASPROD1, Group: XXXXX, ID# [id number], Questions: . THIS IS NOT INSURANCE.] Diovan 160 mg tablet RxNorm: 802423 1 Tablet(s) PO QAM 201402/17/2015 Inactive [SAVINGS FOR NON-COVERED DRUGS -- BIN:843157, PCN: ASPROD1, Group: XXXXX, ID # [id number], Questions: . THIS IS NOT INSURANCE.] Coumadin 5 mg tablet RxNorm: 179157 TAKE 1 TABLET BY MOUTH ON WEDNESDAY , WEDNESDAY, WEDNESDAY, WEDNESDAY AND SUNDAYS. TAKE 1/2 TABLET BY MOUTH ON THURSDAYS. 07/27/2014 06/21/2015 Inactive Diovan 160 mg tablet RxNorm: 106387 1/2 Tablet(s) PO BID 201408/21/2014 Inactive [SAVINGS FOR UNINSURED PATIENTS -- BIN:171132, PCN: ASPROD1, Group: [id number], ID # [id number], Process claim through MedImp[employer], for questions: . THIS IS NOT INSURANCE.] Diovan 320 mg tablet RxNorm: 110523 1/2 Tablet(s) PO BID 201305/22/2014 Inactive [SAVINGS FOR UNINSURED PATIENTS -- BIN:176149, PCN: ASPROD1, Group: [id number], ID # [id number], Process claim through MedImp[employer], for questions: . THIS IS NOT INSURANCE.] Flomax 0.4 mg capsule RxNorm: 367645 1 Capsule(s) PO daily 03/0509/12/2014 Inactive [SAVINGS FOR UNINSURED PATIENTS -- BIN:131861, PCN: ASPROD1, Group: [id number], ID# [id number], Process claim through [employer]Imp[employer], for questions: . THIS IS NOT INSURANCE.] ciprofloxacin 500 mg tablet RxNorm: 473990 1 Tablet(s) PO BID 02/14/2014 02/23/2014 Inactive [SAVINGS FOR UNINSURED PATIENTS -- BIN:288435, PCN: ASPROD1, Group: [id number], ID# [id number], Process claim through MedImp[employer], for questions: [phone]. THIS IS NOT INSURANCE.] ciprofloxacin 500 mg tablet RxNorm: 338028 1 Tablet(s) PO BID 02/14/2014 02/13/2014 Inactive Flagyl 500 mg tablet RxNorm: 456785 1 Tablet(s) PO TID 201302/13/2014 Inactive Flagyl 500 mg tablet RxNorm: 644583 1 Tablet(s) PO TID 201302/23/2014 Inactive [SAVINGS FOR UNINSURED PATIENTS -- BIN:960708, PCN: ASPROD1, Group: [id number], ID # [id number], Process claim through MedImpact, for questions: . THIS IS NOT INSURANCE.] clindamycin 150 mg capsule RxNorm: 051779 1 Capsule(s) PO QID 02/13/2014 02/13/2014 Inactive [SAVINGS FOR UNINSURED PATIENTS -- BIN:166967, PCN: ASPROD1, Group: [id number], ID# [id number], Process claim through MedImpact, for questions: [phone]. THIS IS NOT INSURANCE.] Diovan 320 mg tablet RxNorm: 772419 1/2 Tablet(s) PO BID 201303/04/2014 Inactive [SAVINGS FOR UNINSURED PATIENTS -- BIN:215123, PCN: ASPROD1, Group: [id number], ID # [id number], Process claim through MedImpact, for questions: . THIS IS NOT INSURANCE.] triamcinolone acetonide 0.1 % topical ointment RxNorm: 0302393 1 Application TOP PRN 01/02/2014 01/01/2014 Inactive triamcinolone acetonide 0.1 % topical ointment RxNorm: 4700415 1 Application TOP PRN 01/02/2014 06/24/2015 Inactive [SAVINGS FOR UNINSURED PATIENTS -- BIN:733990, PCN: ASPROD1, Group: SALLY, ID# [id number], Process claim through [employer], for questions: . THIS IS NOT INSURANCE.] Norvasc 10 mg tablet RxNorm: 558811 Tablet(s) PO TAKE ONE TABLET BY MOUTH EVERY DAY 08/28/2013 08/27/2013 Inactive Norvasc 10 mg tablet RxNorm: 726171 Tablet(s) PO TAKE ONE TABLET BY MOUTH EVERY DAY 08/28/2013 08/27/2013 Inactive Norvasc 10 mg tablet RxNorm: 765445 Tablet(s) PO TAKE ONE TABLET BY MOUTH EVERY DAY 08/28/2013 03/04/2014 Inactive Coumadin 5 mg tablet RxNorm: 003387 Tablet(s) PO TAKE ONE TABLET BY MOUTH ON WEDNESDAY, WED, WEDNESDAY, WED. AND WEDNESDAY . TAKE 1/2 TABLET ON Thursdays07/10/2013 10/28/2015 Inactive Coumadin 5 mg tablet RxNorm: 473803 Tablet(s) PO TAKE ONE TABLET BY MOUTH ON WEDNESDAY, WED, WEDNESDAY, WED. AND WEDNESDAY . TAKE 1/2 TABLET ON Thursdays07/10/2013 07/09/2013 Inactive Zithromax Z-Marcelo 250 mg tablet RxNorm: 989375 1 Tablet(s) PO UD 05/01/2013 05/05/2013 Inactive cefdinir 300 mg capsule RxNorm: 933704 1 Capsule(s) PO BID 05/07/2013 Inactive Senna-S 8.6 mg-50 mg tablet RxNorm: 185437 Tablet(s) PO TAKE ONE TABLET BY MOUTH TWICE A DAY 03/24/2013 03/04/2014 Inactive Senna-S 8.6 mg-50 mg tablet RxNorm: 145346 Tablet(s) PO TAKE ONE TABLET BY MOUTH TWICE A DAY 11/22/2012 03/23/2013 Inactive Norvasc 10 mg tablet RxNorm: 619553 Tablet(s) PO TAKE ONE TABLET BY MOUTH EVERY DAY 09/22/2012 08/27/2013 Inactive Coumadin 5 mg tablet RxNorm: 967971 Tablet(s) PO 07/04/2012 07/09/2013 Inactive 5mg Wed Frid Sat Sun2.5 levofloxacin 500 mg tablet RxNorm: 614398 1 Tablet(s) PO daily 1.5 pills daily on days #1, #2, then one pill daily thereafter 06/28/2012 07/02/2012 Inactive Levaquin 500 mg tablet RxNorm: 642303 Tablet(s) PO 1.5 tabs on day 1 & 2, 1 tab on days 3,4,5,6 06/28/2012 08/31/2012 Inactive 1.5 tabs on day 1 & 2, 1 tab on days 3,4,5,6 Coumadin 5 mg tablet RxNorm: 039183 Tablet(s) PO 06/20/2012 07/03/2012 Inactive 5mg Mon Wed Frid Sat Sun2.5 Thurs Coumadin 5 mg tablet RxNorm: 411720 Tablet(s) PO 05/25/2012 06/19/2012 Inactive 5mg Mon Wed Frid Sat Sun2.5 Tu Thurs Norvasc 10 mg tablet RxNorm: 369205 1 Tablet(s) PO 05/25/2012 09/21/2012 Inactive Senna-S 8.6 mg-50 mg tablet RxNorm: 094866 1 Tablet(s) PO BID 05/25/2012 11/20/2012 Inactive Senna-S 8.6 mg-50 mg tablet RxNorm: 218600 1 Tablet(s) PO BID 04/29/2012 05/24/2012 Inactive Kenalog 40 mg/mL Susp for Injection RxNorm: 7357432 Milliliter(s) Inj 03/17/2012 03/17/2012 Inactive cefdinir 300 mg capsule RxNorm: 450420 1 Capsule(s) PO BID 12/201103/23/2012 Inactive Rocephin 500 mg Solution for Injection RxNorm: 875127 Inj 03/1703/17/2012 Inactive Vitamin D2 50,000 unit Cap RxNorm: 308053 1 Capsule(s) PO QW 08/01/2015 Inactive 50,000 weekly for 3 months then 1000 units daily thereafter Senna-S 8.6 mg-50 mg tablet RxNorm: 889464 1 Tablet(s) PO BID 10/21/2011 04/17/2012 Inactive Coumadin 5 mg Tab RxNorm: 626518 Tablet(s) PO 06/15/2011 06/14/2011 Inactive 5mg Mon Wed Frid Sat2.5 Sat Coumadin 5 mg tablet RxNorm: 767287 Tablet(s) PO 06/15/2011 05/24/2012 Inactive 5mg Wed Frid Sat2.5 Sun Norvasc 5 mg tablet RxNorm: 202038 1 Tablet(s) PO daily 201005/21/2012 Inactive Rocephin 1 gram Solution for Injection RxNorm: 115814 Inj 01/3010/21/2011 Inactive Levaquin 500 mg Tab RxNorm: 898073 1 Tablet(s) PO daily 201010/21/2011 Inactive Rocephin 1 gram Solution for Injection RxNorm: 744804 Inj 01/2901/29/2011 Inactive cyclobenzaprine 5 mg tablet RxNorm: 990439 1 Tablet(s) PO Q8 as needed No Start Date Active aspirin 81 mg Tab RxNorm: 291469 1 Tablet(s) PO daily No Start Date Active Centrum Silver Tab RxNorm: 1 Tablet(s) PO daily No Start Date Active melatonin 3 mg tablet RxNorm: 598035 1 Tablet(s) PO QHS No Start Date Active alprazolam 0.5 mg tablet RxNorm: 017879 1 Tablet(s) PO TID as needed No Start Date Active polyethylene glycol 3350 17 gram oral powder packet RxNorm: 786874 17 Gram(s) PO daily No Start Date Active Fish Oil 1,000 mg Cap RxNorm: 4 Capsule(s) PO QH No Start Date 06/24/2015 Inactive Miralax 17 gram Oral Powder Packet RxNorm: 199073 1 PO daily No Start Date 03/04/2014 Inactive carvedilol 25 mg Tab RxNorm: 843773 1 Tablet(s) PO BID No Start Date 03/25/2015 Inactive Diovan 320 mg tablet RxNorm: 840878 1/2 Tablet(s) PO BID No Start Date 02/11/2014 Inactive doxepin 25 mg Cap RxNorm: 4078925 Capsule(s) PO No Start Date 03/04/2014 Inactive one bid and 2 at hs valsartan 160 mg tablet RxNorm: 046851 1 Tablet(s) PO daily No Start Date 10/20/2015 Inactive promethazine-codeine 6.25 mg-10 mg/5 mL Syrup RxNorm: 833115 5-10 Milliliter(s) PO Q4 PRN No Start Date 10/21/2011 Inactive Diovan HCT 320 mg-12.5 mg Tab RxNorm: 532831 1/2 Tablet(s) PO BID No Start Date 05/25/2012 Inactive niacin ER 500 mg Tab RxNorm: 226335 2 Tablet(s) PO QH No Start Date 08/21/2014 Inactive Vitamin D2 50,000 unit Cap RxNorm: 586609 1 Capsule(s) PO QW No Start Date 10/22/2011 Inactive 50,000 weekly for 3 months then 1000 units daily thereafter Trilipix 135 mg Cap RxNorm: 115198 1 Capsule(s) PO daily No Start Date 08/13/2014 Inactive Lipitor 80 mg Tab RxNorm: 013598 1 Tablet(s) PO QH No Start Date 11/12/2014 Inactive Coumadin 5 mg Tab RxNorm: 669744 Tablet(s) PO No Start Date 06/14/2011 Inactive 5mg Wed Sat2.5 Sat Norvasc 5 mg Tab RxNorm: 241327 1 Tablet(s) PO daily No Start Date 04/27/2011 Inactive Flomax 0.4 mg 24 hr Cap RxNorm: 531761 1 Capsule(s) PO QH No Start Date 03/04/2014 Inactive Levaquin 500 mg tablet RxNorm: 006899 Tablet(s) PO 1.5 tabs on day 1 & 2, 1 tab on days 3,4,5,6 No Start Date 06/27/2012 Inactive albuterol sulfate 2.5 mg/3 mL (0.083 %) Neb Solution RxNorm: 341914 3 Milliliter(s ) INH Q4 PRN No Start Date 03/04/2014 Inactive Zithromax Z-Marcelo 250 mg tablet RxNorm: 079133 Tablet(s) PO UD No Start Date 10/31/2012 Inactive alprazolam 0.5 mg Tab RxNorm: 433471 Tablet(s) PO No Start Date 06/25/2015 Inactive 1- 3 daily 2 at hs Medication Administered Medication Codes Instructions Start Date Status Rocephin 500 mg Solution for Injection RxNorm: 599953 03/17/2012 No longer Active Kenalog 40 mg/mL Susp for Injection RxNorm: 8120720 Milliliter 03/17/2012 No longer Active Rocephin 1 gram Solution for Injection RxNorm: 316059 01/29/2011 No longer Active Immunizations Vaccine Codes Date Status Influenza CVX: 141 02/21/2016 completed Influenza CVX: 141 03/20/2015 completed Influenza CVX: 141 02/08/2014 completed Influenza CVX: 141 02/01/2013 completed Pneumococcal (Adult) CVX: 33 02/01/2013 completed Assessments Condition Codes Effective Dates Urinary tract infection, site not specified ICD-10: N39.0 ICD-9: 599.0 04/05/2017 half-way (current) use of anticoagulants ICD-10: Z79.01 ICD-9: V58.61 04/05/2017 Essential (primary) hypertension ICD-10: I10 ICD-9: [...] for immunization ICD-10: Z23 ICD-9: V03.9 03/20/2015 Pain in left knee ICD-10: M25.562 ICD-9: 719.46 02/22/2015 Pneumonia, unspecified organism ICD-10: J18.9 ICD-9: 486 02/22/2015 Left knee pain ICD-9: 719.46 12/28/2014 ESSENTIAL HYPERTENSION ICD-9: 401.9 12/28 HYPERLIPIDEMIA ICD-9: 272.4 12/19/2014 H/O long-term (current) use of anticoagulants ICD-9: V58.61 12/19/2014 Diarrhea ICD-9: 787.91 03/05/2014 Abdominal abscess ICD-9: 567.22 2013 Abdominal pain ICD-9: 789.00 02/19/2014 Cellulitis of oral soft tissues ICD-9: 528.3 02/13/2014 Renal insufficiency ICD-9: 593.9 2013 FEVER NOS ICD-9: 780.60 01/18/2014 Nausea alone ICD-9: 787.02 01/18/2014 Rebound tenderness ICD-9: 789.60 2013 Right lower quadrant abdominal pain ICD-9: 789.03 01/18/2014 Dehydration ICD-9: 276.51 01/18/2014 Nodule of tongue ICD-9: 784.2 10/10/2013 COUGH [...] Observation Code Item Item Code Result Date Cbc With Differential Ord2 WBC 6.55 K/ul 04/14/2017 Cbc With Differential Ord2 RBC 4.63 M/ul 04/14/2017 Cbc With Differential Ord2 HGB 12.8 g/dl 04/14/2017 Cbc With Differential Ord2 Neut% 65.0 % 04/14/2017 Cbc With Differential Ord2 HCT 37.6 % 04/14/2017 Cbc With Differential Ord2 Lymph% 25.5 % 04/14/2017 Cbc With Differential Ord2 MCV 81.2 fl 04/14/2017 Cbc With Differential Ord2 [place]% 7.3 % 04/14/2017 Cbc With Differential Ord2 [...] 1.67 K/ul 04/14/2017 Cbc With Differential Ord2 [place] ABS# 0.5 K/ul 04/14/2017 Cbc With Differential Ord2 Eos ABS# 0.1 K/ul 04/14/2017 Cbc With Differential Ord2 Baso ABS# 0.0 K/ul 04/14/2017 Pt [id number] PT 24.7 seconds 04/14/2017 Pt Bsc0012 INR 2.2 04/14/2017 Pt Pfy7828 Low Intensity - 1.5-2.0 04/14/2017 Pt Hyc5485 Mod intensity - 2.0-3.0 04/14/2017 Pt Bqc3598 Hi intensity - 3.0-4.0 04/14/2017 Urine Culture Ucult Preliminary NO Growth Day 1 04/07/2017 Urine Culture Ucult Complete NO Growth Day 2 04/07/2017 Pt Znr7312 PT 33.2 seconds 04/05/2017 Pt Ijl8250 INR 3.2 04/05/2017 Pt Mhk9353 Low Intensity - 1.5-2.0 04/05/2017 Pt Fmr2435 Mod intensity - 2.0-3.0 04/05/2017 Pt Ebh7311 Hi intensity - 3.0-4.0 04/05/2017 Pt Edl8919 PT 30.5 seconds 03/08/2017 Pt Thp7616 INR 2.9 03/08/2017 Pt Had1619 Low Intensity - 1.5-2.0 03/08/2017 Pt Omm9060 Mod intensity - 2.0-3.0 03/08/2017 Pt Nin8049 Hi intensity - 3.0-4.0 03/08/2017 Tsh Ord6 hTSH II 2.02 uIU/mL 03/08/2017 Lipid Ord30 CHOL 78 mg/dL 03/08/2017 Lipid Ord30 HDL 17.0 mg/dl 03/08/2017 Lipid Ord30 TRIG 84 mg/dL 03/08/2017 Lipid Ord30 LDL 44 mg/dL 03/08/2017 Lipid Ord30 C/HDL 4.6 Ratio 03/08/2017 Comp Metabolic Amv734 NA 142 mEq/L 03/08/2017 Comp Metabolic Cvz202 K 4.3 mEq/L 03/08/2017 Comp Metabolic Zkh701 CL 110 mEq/L 03/08/2017 Comp Metabolic Bke710 CO2 24.0 mEq/L 03/08/2017 Comp Metabolic Xla425 ANION GAP 12 03/08/2017 Comp Metabolic Xuu983 GLUCOSE 110 mg/dL 03/08/2017 Comp Metabolic Ovm467 Creat 1.0 mg/dL 03/08/2017 Comp Metabolic Guk897 eGFR 74 ml/min/1.73m2 03/08/2017 Comp Metabolic Ocs443 BUN 20 mg/dL 03/08/2017 Comp Metabolic Dqt078 B/C Ratio 19.4 Ratio 03/08/2017 Comp Metabolic Ygq586 CALCIUM 8.9 mg/dL 03/08/2017 Comp Metabolic Bsp090 ALK PHOS 42 U/L 03/08/2017 Comp Metabolic Gmp745 AST(SGOT) 18 U/L 03/08/2017 Comp Metabolic Trg826 ALT(SGPT) 14 U/L 03/08/2017 Comp Metabolic Neg061 BILI T 0.7 mg/dL 03/08/2017 Comp Metabolic Hvq673 ALBUMIN 4.1 g/dL 03/08/2017 Comp Metabolic Kxh693 TPRO 7.2 g/dL 03/08/2017 Comp Metabolic Sby017 GLOB 3.1 g/dL 03/08/2017 Comp Metabolic Xqp465 A/G Ratio 1.3 Ratio 03/08/2017 Comp Metabolic Nsl175 Osmo 286 mOsmo 03/08/2017 Cbc With Differential Ord2 WBC 6.25 K/ul 03/08/2017 Cbc With Differential Ord2 RBC 4.48 M/ul 03/08/2017 Cbc With Differential Ord2 HGB 12.5 g/dl 03/08/2017 Cbc With Differential Ord2 HCT 36.9 % 03/08/2017 Cbc With Differential Ord2 Neut% 68.4 % 03/08/2017 Cbc With Differential Ord2 Lymph% 22.6 % 03/08/2017 Cbc With Differential Ord2 MCV 82.4 fl 03/08/2017 Cbc With Differential Ord2 [place]% 7.4 % 03/08/2017 Cbc With Differential Ord2 [...] 1.41 K/ul 03/08/2017 Cbc With Differential Ord2 [place] ABS# 0.5 K/ul 03/08/2017 Cbc With Differential Ord2 Eos ABS# 0.1 K/ul 03/08/2017 Cbc With Differential Ord2 Baso ABS# 0.0 K/ul 03/08/2017 Comp Metabolic Nob947 NA 140 mEq/L 12/02/2016 Comp Metabolic Uat453 K 4.1 mEq/L 12/02/2016 Comp Metabolic Xxo081 CL 109 mEq/L 12/02/2016 Comp Metabolic Lru158 CO2 23.0 mEq/L 12/02/2016 Comp Metabolic Phk417 ANION GAP 12 12/02/2016 Comp Metabolic Ceg036 GLUCOSE 117 mg/dL 12/02/2016 Comp Metabolic Yyc890 Creat 1.2 mg/dL 12/02/2016 Comp Metabolic Mko222 eGFR 64 ml/min/1.73m2 12/02/2016 Comp Metabolic Kio454 BUN 18 mg/dL 12/02/2016 Comp Metabolic Pmo250 B/C Ratio 15.3 Ratio 12/02/2016 Comp Metabolic Uhm970 CALCIUM 9.7 mg/dL 12/02/2016 Comp Metabolic Sii474 ALK PHOS 34 U/L 12/02/2016 Comp Metabolic Tkd314 AST(SGOT) 21 U/L 12/02/2016 Comp Metabolic Oxt646 ALT(SGPT) 17 U/L 12/02/2016 Comp Metabolic Jut488 BILI T 0.6 mg/dL 12/02/2016 Comp Metabolic Tpy126 ALBUMIN 4.2 g/dL 12/02/2016 Comp Metabolic Prm222 TPRO 7.6 g/dL 12/02/2016 Comp Metabolic Axg855 GLOB 3.4 g/dL 12/02/2016 Comp Metabolic Wwu161 A/G Ratio 1.3 Ratio 12/02/2016 Comp Metabolic Frr587 Osmo 282 mOsmo 12/02/2016 Lipid Ord30 CHOL [...] 27.7 pg 12/02/2016 Cbc With Differential Ord2 [place]% 7.6 % 12/02/2016 Cbc With Differential Ord2 [...] 1.98 K/ul 12/02/2016 Cbc With Differential Ord2 [place] ABS# 0.6 K/ul 12/02/2016 Cbc With Differential Ord2 Eos ABS# 0.1 K/ul 12/02/2016 Cbc With Differential Ord2 Baso ABS# 0.0 K/ul 12/02/2016 Tsh Ord6 hTSH II 1.65 uIU/mL 12/02/2016 Pt Tig1833 PT 23.4 seconds 11/26/2016 Pt Vwm9359 INR 2.2 11/26/2016 Pt Uyn6092 Low Intensity - 1.5-2.0 11/26/2016 Pt Eqz3887 Mod intensity - 2.0-3.0 11/26/2016 Pt Zii7086 Hi intensity - 3.0-4.0 11/26/2016 Comp Metabolic Ejl771 NA 139 mEq/L 08/03/2016 Comp Metabolic Rjf471 K 3.9 mEq/L 08/03/2016 Comp Metabolic Wck923 CL 109 mEq/L 08/03/2016 Comp Metabolic Rke062 CO2 22.0 mEq/L 08/03/2016 Comp Metabolic Svi095 ANION GAP 12 08/03/2016 Comp Metabolic Kmn444 GLUCOSE 109 mg/dL 08/03/2016 Comp Metabolic Mtb731 Creat 1.0 mg/dL 08/03/2016 Comp Metabolic Wqq145 eGFR 82 ml/min/1.73m2 08/03/2016 Comp Metabolic Azd607 BUN 20 mg/dL 08/03/2016 Comp Metabolic Scl860 B/C Ratio 21.1 Ratio 08/03/2016 Comp Metabolic Zac597 CALCIUM 9.3 mg/dL 08/03/2016 Comp Metabolic Khh791 ALK PHOS 44 U/L 08/03/2016 Comp Metabolic Jpw542 AST(SGOT) 18 U/L 08/03/2016 Comp Metabolic Jht536 ALT(SGPT) 14 U/L 08/03/2016 Comp Metabolic Kwt320 BILI T 0.8 mg/dL 08/03/2016 Comp Metabolic Kbk778 ALBUMIN 4.0 g/dL 08/03/2016 Comp Metabolic Lov501 TPRO 7.2 g/dL 08/03/2016 Comp Metabolic Eoo250 GLOB 3.2 g/dL 08/03/2016 Comp Metabolic Jkq909 A/G Ratio 1.2 Ratio 08/03/2016 Comp Metabolic Ppu827 Osmo 281 mOsmo 08/03/2016 Cbc With Differential Ord2 WBC 6.24 [...] 27.3 pg 08/03/2016 Cbc With Differential Ord2 [place]% 7.9 % 08/03/2016 Cbc With Differential Ord2 [...] 1.28 K/ul 08/03/2016 Cbc With Differential Ord2 [place] ABS# 0.5 K/ul 08/03/2016 Cbc With Differential Ord2 Eos ABS# 0.1 K/ul 08/03/2016 Cbc With Differential Ord2 Baso ABS# 0.0 K/ul 08/03/2016 Tsh Ord6 hTSH II 1.66 uIU/mL 08/03/2016 Pt [id number] PT 21.6 seconds 08/03/2016 Pt [id number] INR 2.0 08/03/2016 Pt Kly1383 Low Intensity - 1.5-2.0 08/03/2016 Pt Tfe2279 Mod intensity - 2.0-3.0 08/03/2016 Pt Kba1107 Hi intensity - 3.0-4.0 08/03/2016 Lipid Ord30 CHOL 85 mg/dL 08/03/2016 Lipid Ord30 HDL 17.0 mg/dl 08/03/2016 Lipid Ord30 TRIG 104 mg/dL 08/03/2016 Lipid Ord30 LDL 47 mg/dL 08/03/2016 Lipid Ord30 C/HDL 5.0 Ratio 08/03/2016 Tsh Ord6 hTSH II 1.87 uIU/mL 04/06/2016 Comp Metabolic Hud273 NA 140 mEq/L 04/06/2016 Comp Metabolic Ico245 K 4.2 mEq/L 04/06/2016 Comp Metabolic Ygr613 CL 108 mEq/L 04/06/2016 Comp Metabolic Jdt634 CO2 22.0 mEq/L 04/06/2016 Comp Metabolic Frp722 ANION GAP 14 04/06/2016 Comp Metabolic Kqy365 GLUCOSE 95 mg/dL 04/06/2016 Comp Metabolic Xal995 Creat 1.1 mg/dL 04/06/2016 Comp Metabolic Gjj726 eGFR 69 ml/min/1.73m2 04/06/2016 Comp Metabolic Rkp562 BUN 19 mg/dL 04/06/2016 Comp Metabolic Yea570 B/C Ratio 17.3 Ratio 04/06/2016 Comp Metabolic Jxm803 CALCIUM 9.5 mg/dL 04/06/2016 Comp Metabolic Cjg874 ALK PHOS 34 U/L 04/06/2016 Comp Metabolic Hkj114 AST(SGOT) 20 U/L 04/06/2016 Comp Metabolic Kto770 ALT(SGPT) 18 U/L 04/06/2016 Comp Metabolic Kmt146 BILI T 0.8 mg/dL 04/06/2016 Comp Metabolic Utz187 ALBUMIN 4.2 g/dL 04/06/2016 Comp Metabolic Eah885 TPRO 7.7 g/dL 04/06/2016 Comp Metabolic Uvd170 GLOB 3.5 g/dL 04/06/2016 Comp Metabolic Lpk021 A/G Ratio 1.2 Ratio 04/06/2016 Comp Metabolic Atq940 Osmo 281 mOsmo 04/06/2016 Pt Wop5503 PT 23.2 seconds 04/06/2016 Pt Gbx2144 INR 2.2 04/06/2016 Pt Asl7175 Low Intensity - 1.5-2.0 04/06/2016 Pt Pob2656 Mod intensity - 2.0-3.0 04/06/2016 Pt Rfu2663 Hi intensity - 3.0-4.0 04/06/2016 Cbc With [...] 27.2 pg 04/06/2016 Cbc With Differential Ord2 [place]% 6.4 % 04/06/2016 Cbc With Differential Ord2 [...] 1.70 K/ul 04/06/2016 Cbc With Differential Ord2 [place] ABS# 0.5 K/ul 04/06/2016 Cbc With Differential Ord2 Eos ABS# 0.1 K/ul 04/06/2016 Cbc With Differential Ord2 Baso ABS# 0.0 K/ul 04/06/2016 Pt Jjw4682 PT 33.1 seconds 03/20/2016 Pt Khx9737 INR 3.5 03/20/2016 Pt Fkh3165 Low Intensity - 1.5-2.0 03/20/2016 Pt Hwb5100 Mod intensity - 2.0-3.0 03/20/2016 Pt Hze2282 Hi intensity - 3.0-4.0 03/20/2016 Pt Myy6644 PT 30.3 seconds 03/06/2016 Pt Fqz9152 INR 3.1 03/06/2016 Pt Ydi7337 Low Intensity - 1.5-2.0 03/06/2016 Pt Jue8386 Mod intensity - 2.0-3.0 03/06/2016 Pt Icr4635 Hi intensity - 3.0-4.0 03/06/2016 Pt Sgh2130 PT 33.5 seconds 02/21/2016 Pt Xwf2202 INR 3.6 02/21/2016 Pt Fwa6696 Low Intensity - 1.5-2.0 02/21/2016 Pt Vxm6003 Mod intensity - 2.0-3.0 02/21/2016 Pt Osq8407 Hi intensity - 3.0-4.0 02/21/2016 Cbc With [...] 84.7 fl 01/30/2016 Cbc With Differential Ord2 [place]% 6.2 % 01/30/2016 Cbc With Differential Ord2 [...] 1.42 K/ul 01/30/2016 Cbc With Differential Ord2 [place] ABS# 0.4 K/ul 01/30/2016 Cbc With Differential Ord2 Eos ABS# 0.1 K/ul 01/30/2016 Cbc With Differential Ord2 Baso ABS# 0.0 K/ul 01/30/2016 Lipid Ord30 CHOL 104 mg/dL 01/30/2016 Lipid Ord30 HDL 19.0 mg/dl 01/30/2016 Lipid Ord30 TRIG 137 mg/dL 01/30/2016 Lipid Ord30 LDL 58 mg/dL 01/30/2016 Lipid Ord30 C/HDL 5.5 Ratio 01/30/2016 Pt Usb8697 PT 22.3 seconds 01/30/2016 Pt Waj1882 INR 2.1 01/30/2016 Pt Fbp2040 Low Intensity - 1.5-2.0 01/30/2016 Pt Ccu6351 Mod intensity - 2.0-3.0 01/30/2016 Pt Zei2193 Hi intensity - 3.0-4.0 01/30/2016 Comp Metabolic Djz035 NA 136 mEq/L 01/30/2016 Comp Metabolic Odl778 K 4.0 mEq/L 01/30/2016 Comp Metabolic Utm257 CL 103 mEq/L 01/30/2016 Comp Metabolic Vll533 CO2 27.0 mEq/L 01/30/2016 Comp Metabolic Aps204 ANION GAP 10 01/30/2016 Comp Metabolic Sgt505 GLUCOSE 106 mg/dL 01/30/2016 Comp Metabolic Zzm184 Creat 1.3 mg/dL 01/30/2016 Comp Metabolic Qsh018 eGFR 60 ml/min/1.73m2 01/30/2016 Comp Metabolic Pew861 BUN 22 mg/dL 01/30/2016 Comp Metabolic Sxz900 B/C Ratio 17.6 Ratio 01/30/2016 Comp Metabolic Jbv817 CALCIUM 9.7 mg/dL 01/30/2016 Comp Metabolic Pdz956 ALK PHOS 29 U/L 01/30/2016 Comp Metabolic Byq870 AST(SGOT) 19 U/L 01/30/2016 Comp Metabolic Ejb142 ALT(SGPT) 16 U/L 01/30/2016 Comp Metabolic Uzi226 BILI T 0.6 mg/dL 01/30/2016 Comp Metabolic Gvz878 ALBUMIN 4.4 g/dL 01/30/2016 Comp Metabolic Lnn328 TPRO 7.5 g/dL 01/30/2016 Comp Metabolic Fls743 GLOB 3.1 g/dL 01/30/2016 Comp Metabolic Nzm170 A/G Ratio 1.4 Ratio 01/30/2016 Comp Metabolic Mpx085 Osmo 276 mOsmo 01/30/2016 Pt Tfg4933 PT 35.2 seconds 12/17/2015 Pt Mag1808 INR 3.8 12/17/2015 Pt Sok6868 Low Intensity - 1.5-2.0 12/17/2015 Pt Xsj1631 Mod intensity - 2.0-3.0 12/17/2015 Pt Dax4946 Hi intensity - 3.0-4.0 12/17/2015 Pt Sbz3763 PT 29.9 seconds 10/25/2015 Pt Hxc3199 INR 3.1 10/25/2015 Pt Svo0645 Low Intensity - 1.5-2.0 10/25/2015 Pt Ejc5360 Mod intensity - 2.0-3.0 10/25/2015 Pt Ioq8311 Hi intensity - 3.0-4.0 10/25/2015 Lipid Ord30 CHOL 114 mg/dL 10/25/2015 Lipid Ord30 HDL 24.0 mg/dl 10/25/2015 Lipid Ord30 TRIG 141 mg/dL 10/25/2015 Lipid Ord30 LDL 62 mg/dL 10/25/2015 Lipid Ord30 C/HDL 4.8 Ratio 10/25/2015 Comp Metabolic Lam375 NA 140 mEq/L 10/25/2015 Comp Metabolic Tjk324 K 4.2 mEq/L 10/25/2015 Comp Metabolic Qrl999 CL 107 mEq/L 10/25/2015 Comp Metabolic Mhf544 CO2 25.0 mEq/L 10/25/2015 Comp Metabolic Gmi689 ANION GAP 12 10/25/2015 Comp Metabolic Cug856 GLUCOSE 105 mg/dL 10/25/2015 Comp Metabolic Nai714 Creat 1.2 mg/dL 10/25/2015 Comp Metabolic Utg004 eGFR 61 ml/min/1.73m2 10/25/2015 Comp Metabolic Fcl675 BUN 31 mg/dL 10/25/2015 Comp Metabolic Oxw539 B/C Ratio 25.4 Ratio 10/25/2015 Comp Metabolic Xvi473 CALCIUM 9.5 mg/dL 10/25/2015 Comp Metabolic Dpf825 ALK PHOS 37 U/L 10/25/2015 Comp Metabolic Ayq810 AST(SGOT) 23 U/L 10/25/2015 Comp Metabolic Xgz793 ALT(SGPT) 23 U/L 10/25/2015 Comp Metabolic Uik891 BILI T 0.6 mg/dL 10/25/2015 Comp Metabolic Phn927 ALBUMIN 4.2 g/dL 10/25/2015 Comp Metabolic Nrz724 TPRO 7.1 g/dL 10/25/2015 Comp Metabolic Lpt356 GLOB 3.0 g/dL 10/25/2015 Comp Metabolic Jhh845 A/G Ratio 1.4 Ratio 10/25/2015 Comp Metabolic Abk199 Osmo 286 mOsmo 10/25/2015 Tsh Ord6 hTSH II 1.61 uIU/mL 10/25/2015 Cbc With Differential Ord2 WBC 7.60 [...] 28.3 pg 10/25/2015 Cbc With Differential Ord2 [place]% 8.7 % 10/25/2015 Cbc With Differential Ord2 [...] 1.60 K/ul 10/25/2015 Cbc With Differential Ord2 [place] ABS# 0.7 K/ul 10/25/2015 Cbc With Differential Ord2 Eos ABS# 0.1 K/ul 10/25/2015 Cbc With Differential Ord2 Baso ABS# 0.0 K/ul 10/25/2015 Pt Iey5634 PT 31.8 seconds 09/26/2015 Pt Dhi8162 INR 3.3 09/26/2015 Pt Pes6522 Low Intensity - 1.5-2.0 09/26/2015 Pt Tow5527 Mod intensity - 2.0-3.0 09/26/2015 Pt Jrq9526 Hi intensity - 3.0-4.0 09/26/2015 Pt Zzd0359 PT 15.7 seconds 09/10/2015 Pt Znb1538 INR 1.3 09/10/2015 Pt Rbj9563 Low Intensity - 1.5-2.0 09/10/2015 Pt Oxx5738 Mod intensity - 2.0-3.0 09/10/2015 Pt Rbo3510 Hi intensity - 3.0-4.0 09/10/2015 Pt Uqe0659 PT 22.0 seconds 08/27/2015 Pt Vup0287 INR 2.0 08/27/2015 Pt Pzg9157 Low Intensity - 1.5-2.0 08/27/2015 Pt Fdp3713 Mod intensity - 2.0-3.0 08/27/2015 Pt Kav7541 Hi intensity - 3.0-4.0 08/27/2015 Cbc With Differential Ord2 WBC 6.8 K/uL [...] With Differential Ord2 RDW 18.1 % 03/20/2015 Lipid Ord30 CHOL 89 mg/dL 03/20/2015 Lipid Ord30 HDL 22.0 mg/dl 03/20/2015 Lipid Ord30 TRIG 95 mg/dL 03/20/2015 Lipid Ord30 LDL 48 mg/dL 03/20/2015 Lipid Ord30 C/HDL 4.0 Ratio 03/20/2015 Comp Metabolic Dmo831 NA 140 mEq/L 03/20/2015 Comp Metabolic Eqy655 K 4.3 mEq/L 03/20/2015 Comp Metabolic Gxn153 CL 109 mEq/L 03/20/2015 Comp Metabolic Eoi931 CO2 22.0 mEq/L 03/20/2015 Comp Metabolic Ena844 ANION GAP 13 03/20/2015 Comp Metabolic Raw724 GLUCOSE 100 mg/dL 03/20/2015 Comp Metabolic Zgf148 Creat 1.1 mg/dL 03/20/2015 Comp Metabolic Tyl917 eGFR 67 ml/min/1.73m2 03/20/2015 Comp Metabolic Fun874 BUN 18 mg/dL 03/20/2015 Comp Metabolic Ifa340 B/C Ratio 15.9 Ratio 03/20/2015 Comp Metabolic Imd715 CALCIUM 9.3 mg/dL 03/20/2015 Comp Metabolic Kkw594 ALK PHOS 41 U/L 03/20/2015 Comp Metabolic Qvt892 AST(SGOT) 21 U/L 03/20/2015 Comp Metabolic Fyl218 ALT(SGPT) 19 U/L 03/20/2015 Comp Metabolic Pdq059 BILI T 0.8 mg/dL 03/20/2015 Comp Metabolic Wgg056 ALBUMIN 4.3 g/dL 03/20/2015 Comp Metabolic Krc748 TPRO 7.5 g/dL 03/20/2015 Comp Metabolic Iig604 GLOB 3.2 g/dL 03/20/2015 Comp Metabolic Vsl261 A/G Ratio 1.4 Ratio 03/20/2015 Comp Metabolic Ppk103 Osmo 281 mOsmo 03/20/2015 Tsh Ord6 hTSH II 1.69 uIU/mL 03/20/2015 Pt Iwd2133 PT 22.0 seconds 03/20/2015 Pt Tko6333 INR 2.0 03/20/2015 Pt Inw6647 Low Intensity - 1.5-2.0 03/20/2015 Pt Yqk4610 Mod intensity - 2.0-3.0 03/20/2015 Pt Lfg7422 Hi intensity - 3.0-4.0 03/20/2015 Pt Jcb0746 PT 23.7 seconds 02/20/2015 Pt Acr1884 INR 2.2 02/20/2015 Pt Fnc1547 Low Intensity - 1.5-2.0 02/20/2015 Pt Byt7577 Mod intensity - 2.0-3.0 02/20/2015 Pt Hht3279 Hi intensity - 3.0-4.0 02/20/2015 Pt Gaa3163 PT 23.6 seconds 02/15/2015 Pt Ggt7087 INR 2.2 02/15/2015 Pt Omh6575 Low Intensity - 1.5-2.0 02/15/2015 Pt Miu1274 Mod intensity - 2.0-3.0 02/15/2015 Pt Wcc7778 Hi intensity - 3.0-4.0 02/15/2015 Pt Puu0009 PT 25.2 seconds 02/12/2015 Pt Jdc6763 INR 2.4 02/12/2015 Pt Udo8692 Low Intensity - 1.5-2.0 02/12/2015 Pt Six9658 Mod intensity - 2.0-3.0 02/12/2015 Pt Wdb2351 Hi intensity - 3.0-4.0 02/12/2015 Pt Eee2157 PT 25.8 seconds 12/27/2014 Pt Vox6359 INR 2.4 12/27/2014 Pt Njo7228 Low Intensity - 1.5-2.0 12/27/2014 Pt Chp7327 Mod intensity - 2.0-3.0 12/27/2014 Pt Rwt9536 Hi intensity - 3.0-4.0 12/27/2014 Cbc With Differential Ord2 WBC 6.2 K/uL [...] 12/18/2014 Lipid Ord30 C/HDL 3.9 Ratio 12/18/2014 Tsh Ord6 hTSH II 1.79 uIU/mL 12/18/2014 Pt Ipn7819 PT 26.4 seconds 12/18/2014 Pt Zli5622 INR 2.5 12/18/2014 Pt Ivj2333 Low Intensity - 1.5-2.0 12/18/2014 Pt Rdu2167 Mod intensity - 2.0-3.0 12/18/2014 Pt Bfr5219 Hi intensity - 3.0-4.0 12/18/2014 Comp Metabolic Dkd956 NA 138 mEq/L 12/18/2014 Comp Metabolic Qhl688 K 4.3 mEq/L 12/18/2014 Comp Metabolic Wid813 CL 107 mEq/L 12/18/2014 Comp Metabolic Xes135 CO2 25.0 mEq/L 12/18/2014 Comp Metabolic Sco340 ANION GAP 10 12/18/2014 Comp Metabolic Fdm675 GLUCOSE 105 mg/dL 12/18/2014 Comp Metabolic Gqm060 Creat 1.1 mg/dL 12/18/2014 Comp Metabolic Ecl615 eGFR 69 ml/min/1.73m2 12/18/2014 Comp Metabolic Zmd433 BUN 16 mg/dL 12/18/2014 Comp Metabolic Igj349 B/C Ratio 14.5 Ratio 12/18/2014 Comp Metabolic Srj679 CALCIUM 9.9 mg/dL 12/18/2014 Comp Metabolic Vwd072 ALK PHOS 39 U/L 12/18/2014 Comp Metabolic Cxx325 AST(SGOT) 19 U/L 12/18/2014 Comp Metabolic Yju576 ALT(SGPT) 18 U/L 12/18/2014 Comp Metabolic Arz062 BILI T 0.7 mg/dL 12/18/2014 Comp Metabolic Xxq114 ALBUMIN 4.4 g/dL 12/18/2014 Comp Metabolic Vak813 TPRO 7.8 g/dL 12/18/2014 Comp Metabolic Yiq649 GLOB 3.4 g/dL 12/18/2014 Comp Metabolic Sfn328 A/G Ratio 1.3 Ratio 12/18/2014 Comp Metabolic Kzk733 Osmo 277 mOsmo 12/18/2014 ESR [id number] ESR 28 MM/HR 07/14/2012 PT/MC [id number] PRO TIME 24.6 SEC 07/13/2012 PT/MC [id number] INR MCMC 2.2 07/13/2012 CRP [id number] CRP 0.4 MG/DL 07/13/2012 Review of Systems System Result Effective [...] clear 12/19/2014 None Full Exam - General 1995 Ears/Nose/Throat oral cavity/pharynx/larynx Overall: no masses 12/19/2014 [...] clear 02/13/2014 None Full Exam - General 1995 Ears/Nose/Throat external ear Auricle: erythema 02/13/2014 None Full Exam - General 1995 Ears/Nose/Throat external ear Auricle: tender 02/13/2014 swelling, [...] tenderness 05/16/2013 None Full Exam - General 1995 Abdomen abdominal exam Overall: normal bowel sounds 05/16/2013 None Full Exam - General 1995 Abdomen abdominal exam Contour: protuberant 05/16/2013 None [...] clear 05/01/2013 None Full Exam - General 1995 Ears/Nose/Throat [...] masses 02/01/2013 None Full Exam - General 1995 Respiratory [...] accomodation 11/01/2012 None Full Exam - General 1995 [...] 1995 Ears/Nose/Throat oral cavity/pharynx/larynx Overall: no masses 11/01/2012 [...] tenderness 09/01/2012 None Full Exam - General 1995 Abdomen abdominal exam Overall: normal bowel sounds 09/01/2012 None Full Exam - General 1994 Abdomen abdominal exam Contour: protuberant 09/01/2012 None [...] holosystolic 06/08/2012 None Full Exam - General 1995 Cardiovascular auscultation of heart Systolic murmur grade: II/ 06/08/2012 None Full Exam - General 1995 Cardiovascular extremities Overall: no clubbing 06/08/2012 None Full Exam - General 1994 Abdomen abdominal exam Overall: no tenderness 06/08/2012 None Full Exam - General 1995 Abdomen abdominal exam Overall: normal bowel sounds 06/08/2012 None Full Exam - General 1994 Abdomen abdominal exam Contour: protuberant 06/08/2012 None Full Exam - General 1994 Musculoskeletal head and neck Overall: head atraumatic 06/08/2012 None Full Exam - General 1995 Musculoskeletal [...] distress 05/25/2012 None Full Exam - General 1995 Constitutional general appearance Overall: well nourished 05/25/2012 None Full Exam - General 1994 Eyes pupils and irises Overall: pupils equal, round, reactive to light and accomodation 05/25/2012 None Full Exam - General 1995 [...] tenderness 10/21/2011 None Full Exam - General 1995 Abdomen abdominal exam Overall: normal bowel sounds [...] Codes Date URINALYSIS NONAUTO W/O SCOPE CPT-4: 44650 04/05/2017 PPPS, SUBSEQ VISIT CPT -4: G0439 04/17/2016 ADMIN INFLUENZA VIRUS VAC CPT-4: G0008 02/21/2016 FLU VACC PRSV FREE INC ANTIG Formatting Model/CDA Sections, Assigned to/Tona Helm CPT-4: 25467Qkzoxlv 02/21/2016 TRIAMCINOLONE ACET INJ NOS CPT-4: J3301 08/02/2015 DRAIN/INJECT JOINT/BURSA CPT-4: 38171 08/02/2015 ADMIN INFLUENZA VIRUS VAC CPT-4: G0008 03/20/2015 FLU VACC PRSV FREE INC ANTIG Formatting Model/CDA Sections, Assigned to/Tona Helm CPT-4: 81742Orlxvzd 03/20/2015 FLU VACC 4 BEHZAD 3 YRS PLUS IM SNOMED CT: 59568120 CPT-4: 70014 02/08/2014 ADMIN INFLUENZA VIRUS VAC CPT-4: G0008 02/08/2014 TRIAMCINOLONE ACET INJ NOS CPT-4: J3301 05/01/2013 THER/PROPH/DIAG INJ SC/IM CPT-4: 78753 05/01/2013 ADMIN INFLUENZA VIRUS VAC CPT-4: G0008 02/01/2013 FLULAVAL VACC, 3 YRS & >, IM CPT-4: Q2036 02/01/2013 ADMIN PNEUMOCOCCAL VACCINE SNOMED CT: 68768738 CPT-4: G0009 02/01/2013 Pneumococcal Polysaccharide Vaccine, 23-Valent, Ad CPT-4: 85930 02/01/2013 DESTRUCT PREMALG LESION CPT-4: 83974 09/07/2012 DESTRUCT PREMALG LES 2-14 CPT-4: 11327 09/07/2012 ROUTINE VENIPUNCTURE CPT-4: 31657 07/13/2012 [id number] EST. PATIENT, LEVEL IV CPT-4: 93313 06/08/2012 ROCEPHIN, PER 250 MG CPT-4: J0696 03/17/2012 TRIAMCINOLONE ACET INJ NOS CPT-4: J3301 03/17/2012 THER/PROPH/DIAG INJ SC/IM CPT-4: 11891 03/17/2012 INJ TRIGGER POINT 1/2 MUSCL CPT-4: 86192 06/24/2011 TRIAMCINOLONE ACET INJ NOS CPT-4: J3301 06/24/2011 ROUTINE VENIPUNCTURE CPT-4: 83285 01/30/2011 ROCEPHIN, PER 250 MG CPT-4: J0696 01/30/2011 THER/PROPH/DIAG INJ SC/IM CPT-4: 05151 01/30/2011 ROCEPHIN, PER 250 MG CPT-4: J0696 01/29/2011 THER/PROPH/DIAG INJ SC/IM CPT-4: 99256 01/29/2011 AIRWAY INHALATION TREATMENT CPT-4: 27577 01/29/2011 PRESCRIP TRANSMIT VIA ERX SY CPT-4: G8553 01/29/2011 Vital Signs Date Vital 03/09/2017 Blood Pressure 1: 136/64 Code : 8480-6 BMI: 28.7 Code : 83081-7 Heart Rate 1 : 68 bpm Height: 5'10" SpO2: 94% Weight: 197 lbs 8 oz 12/01/2016 Blood Pressure 1: 124/68 Code : 8480-6 BMI: 27.7 Code : 95934-9 Heart Rate 1 : 70 bpm Height: 5'10" SpO2: 94% Weight: 190 lbs 11/26/2016 Blood Pressure 1: 120/72 Code : 8480-6 Heart Rate 1: 73 bpm SpO2: 97% Weight: 190 lbs 8 oz 08/04/2016 Blood Pressure 1: 138/78 Code : 8480-6 BMI: 29.4 Code : 00358-9 Heart Rate 1 : 69 bpm Height: 5'10" SpO2: 97% Weight: 202 lbs 04/17/2016 Blood Pressure 1: 128/60 Code : 8480-6 BMI: 29.4 Code : 88296-8 Heart Rate 1 : 70 bpm Height: 5'10" SpO2: 97% Waist Measure (cm): 97 cm Weight: 202 lbs 04/07/2016 Blood Pressure 1: 132/78 Code : 8480-6 BMI: 29.0 Code : 58987-3 Heart Rate 1 : 78 bpm Height: 5'10" SpO2: 98% Weight: 199 lbs 12/04/2015 Blood Pressure 1: 120/62 Code : 8480-6 BMI: 28.4 Code : 65417-8 Heart Rate 1 : 80 bpm Height: 5'10" SpO2: 97% Weight: 195 lbs 10/29/2015 Blood Pressure 1: 108/58 Code : 8480-6 BMI: 27.8 Code : 23107-3 Heart Rate 1 : 78 bpm Height: 5'10" SpO2: 98% Weight: 191 lbs 08/02/2015 Blood Pressure 1: 148/82 Code : 8480-6 Heart Rate 1: 63 bpm Height: 5'10" SpO2: 98% Weight: 06/25/2015 Blood Pressure 1: 146/78 Code : 8480-6 Blood Pressure 1: 150/76 Code: 8480-6 BMI: 30.3 Code: 61546-2 Heart Rate 1: 89 bpm Height: 5'10" SpO2: 97% Weight: 208 lbs 03/21/2015 Blood Pressure 1: 136/80 Code : 8480-6 BMI: 29.3 Code : 75542-4 Heart Rate 1 : 72 bpm Height: 5'10" Weight: 201 lbs 02/22/2015 Blood Pressure 1: 156/78 Code : 8480-6 Blood Pressure 1: 140/80 Code: 8480-6 BMI: 29.5 Code: 08078-4 Heart Rate 1: 74 bpm Height: 5'10" SpO2: 97% Weight: 203 lbs 02/12/2015 Blood Pressure 1: 140/88 Code : 8480-6 BMI: 29.8 Code : 56779-2 Heart Rate 1 : 81 bpm Height: 5'10" SpO2: 95% Temperature: 36.8 (C) / 98.2 (F) Weight: 205 lbs 12/28/2014 Blood Pressure 1: 126/64 Code : 8480-6 BMI: 30.1 Code : 28358-1 Heart Rate 1 : 71 bpm Height: 5'10" SpO2: 96% Weight: 207 lbs 12/19/2014 Blood Pressure 1: 132/66 Code : 8480-6 BMI: 29.8 Code : 36444-9 Heart Rate 1 : 68 bpm Height: 5'10" SpO2: 95% Temperature: 36.5 (C) / 97.7 (F) Weight: 205 lbs 08/22/2014 Blood Pressure 1: 140/82 Code : 8480-6 BMI: 30.6 Code : 61855-0 Heart Rate 1 : 90 bpm Height: 5'10" SpO2: 97% Weight: 210 lbs 05/23/2014 Blood Pressure 1: 118/64 Code : 8480-6 BMI: 30.6 Code : 98868-2 Heart Rate 1 : 68 bpm Height: 5'10" Weight: 210 lbs 03/19/2014 Blood Pressure 1: 138/88 Code : 8480-6 BMI: 29.4 Code : 46447-4 Heart Rate 1 : 86 bpm Height: 5'10" Weight: 202 lbs 03/05/2014 Blood Pressure 1: 114/72 Code : 8480-6 BMI: 28.4 Code : 39876-2 Heart Rate 1 : 93 bpm Height: 5'10" Weight: 195 lbs 02/19/2014 Blood Pressure 1: 102/64 Code : 8480-6 BMI: 30.1 Code : 05593-6 Heart Rate 1 : 92 bpm Height: 5'10" SpO2: 96% Weight: 207 lbs 02/13/2014 Blood Pressure 1: 128/68 Code : 8480-6 BMI: 31.0 Code : 34271-2 Heart Rate 1 : 76 bpm Height: 5'10" SpO2: 94% Weight: 213 lbs 02/08/2014 Blood Pressure 1: 122/62 Code : 8480-6 BMI: 30.9 Code : 45096-0 Heart Rate 1 : 74 bpm Height: 5'10" Respiratory Rate: 18 bpm Weight: 212 lbs 01/18/2014 Blood Pressure 1: 130/82 Code : 8480-6 BMI: 31.9 Code : 25867-2 Heart Rate 1 : 108 bpm Height: 5'10 " Respiratory Rate: 18 bpm SpO2: 95% Temperature: 37.5 (C) / 99.5 (F ) Weight: 219 lbs 10/10/2013 Blood Pressure 1: 140/82 Code : 8480-6 BMI: 32.6 Code : 66286-3 Heart Rate 1 : 68 bpm Height: 5'10" Weight: 224 lbs 08/15/2013 Blood Pressure 1: 158/82 Code : 8480-6 BMI: 32.7 Code : 05601-8 Heart Rate 1 : 72 bpm Height: 5'10" Weight: 225 lbs 05/16/2013 Blood Pressure 1: 148/84 Code : 8480-6 BMI: 32.6 Code : 01952-4 Heart Rate 1 : 84 bpm Height: 5'10" Weight: 224 lbs 05/01/2013 Blood Pressure 1: 174/92 Code : 8480-6 BMI: 32.6 Code : 08101-4 Heart Rate 1 : 76 bpm Height: 5'10" Weight: 224 lbs 02/01/2013 Blood Pressure 1: 110/64 Code : 8480-6 BMI: 32.6 Code : 80077-5 Heart Rate 1 : 80 bpm Height: 5'10" Weight: 224 lbs 11/01/2012 Blood Pressure 1: 132/70 Code : 8480-6 BMI: 32.7 Code : 18628-3 Heart Rate 1 : 92 bpm Height: 5'10" Weight: 225 lbs 09/07/2012 Blood Pressure 1: 164/72 Code : 8480-6 Heart Rate 1: 76 bpm 09/01/2012 Blood Pressure 1: 136/78 Code : 8480-6 BMI: 32.7 Code : 67673-8 Heart Rate 1 : 92 bpm Height: 5'10" Weight: 225 lbs 07/07/2012 Blood Pressure 1: 172/90 Code : 8480-6 Heart Rate 1: 81 bpm SpO2: 98% Weight: 224 lbs 06/28/2012 Blood Pressure 1: 148/96 Code : 8480-6 Heart Rate 1: 76 bpm SpO2: 97% Temperature: 36.3 (C) / 97.4 (F) Weight: 06/08/2012 Blood Pressure 1: 152/92 Code : 8480-6 BMI: 32.5 Code : 18819-7 Heart Rate 1 : 80 bpm Height: [...] Code : 8480-6 BMI: 32.5 Code : 80572-4 Heart Rate 1 : 68 bpm Height: 5'10" Weight: 223 lbs 10/21/2011 Blood Pressure 1: 138/62 Code : 8480-6 BMI: 31.6 Code : 87881-7 Heart Rate 1 : 64 bpm Height: [...] Code : 8480-6 BMI: 32.2 Code : 51734-9 Heart Rate 1 : 72 bpm Height: 5'10" Respiratory Rate: 16 bpm Weight: 221 lbs 02/03/2011 Blood Pressure 1: 137/76 Code : 8480-6 BMI: 32.2 Code : 06824-9 Heart Rate 1 : 81 bpm Height: 5'10" Weight: 221 lbs 01/30/2011 Blood Pressure 1: 106/60 Code : 8480-6 Heart Rate 1: 76 bpm Respiratory Rate : 20 bpm SpO2: 96% Weight: 220 lbs 01/29/2011 Blood Pressure 1: 84/52 Code : 8480-6 BMI: 31.7 Code : 92600-5 Heart Rate 1 : 87 bpm Height: [...] data Encounters Encounter Performer Location Codes Date ([id number]) [id number] EST. PATIENT, LEVEL IV Diagnosis: Essential (primary) hypertension[ICD10: I10] Diagnosis: Mixed hyperlipidemia[ICD10: E78.2] [facility] CPT-4: 10216 03/09/2017 ([id number]) 60739 EST. PATIENT, LEVEL IV Diagnosis: Essential (primary) hypertension[ICD10: I10] Diagnosis: Mixed hyperlipidemia[ICD10: E78.2] Diagnosis: Low back pain[ICD10: M54.5] Verna Ferro MD, [facility] CPT- 4: 46198 12/01/2016 ([id number]) 93988 EST. PATIENT, LEVEL III Diagnosis: half-way (current) use of anticoagulants[ICD10: Z79.01] Diagnosis: Low back pain[ICD10: M54.5] Nydia Ferro MD, [facility] CPT-4: 88590 11/26/2016 ([id number]) 12492 EST. PATIENT, LEVEL IV Diagnosis: Essential (primary) hypertension[ICD10: I10] Diagnosis: Mixed hyperlipidemia[ICD10: E78.2] Diagnosis: Cough[ICD10: R05] Verna Ferro MD, [facility] CPT-4: 42619 08/04/2016 ([id number]) 59732 EST. PATIENT, LEVEL IV Diagnosis: Essential (primary) hypertension[ICD10: I10] Diagnosis: Mixed hyperlipidemia[ICD10: E78.2] Diagnosis: Low back pain[ICD10: M54.5] Diagnosis: Cervicalgia[ICD10: M54.2] Verna Ferro MD, [facility] CPT-4: 70786 04/07/2016 ([id number]) 87864 EST. PATIENT, LEVEL III Diagnosis: Essential (primary) hypertension[ICD10: I10] Diagnosis: Mixed hyperlipidemia[ICD10: E78.2] Verna Ferro MD, [facility] CPT-4: 98414 12/04/2015 ([id number]) 12435 EST. PATIENT, LEVEL IV Diagnosis: Essential (primary) hypertension[ICD10: I10] Diagnosis: long term care pharmacist (current) use of anticoagulants[ICD10: Z79.01] Verna Ferro MD, [facility] CPT-4: 66262 10/29/2015 [id number] EST. PATIENT, LEVEL IV Diagnosis: Low back pain[ICD10: M54.5] Maria E Ferro MD, [facility] CPT-4 : 16584 08/02/2015 ([id number]) 21431 EST. 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 PATIENT, LEVEL IV Diagnosis: Essential (primary) hypertension[ICD10: I10] Diagnosis: Mixed hyperlipidemia[ICD10: E78.2] Verna Ferro MD [facility] CPT-4: 11708 03/21/2015 ([id number]) 26980 EST. PATIENT, LEVEL III Diagnosis: Essential (primary) hypertension[ICD10: I10] Diagnosis: Pneumonia, unspecified organism[ICD10: J18.9] Diagnosis: Pain in left knee[ICD10: M25.562] Nydia Ferro MD [facility] CPT-4: 58260 02/22/2015 ([id number]) 50044 EST. PATIENT, LEVEL III Diagnosis: Pneumonia, unspecified organism[ICD10: J18.9] Verna Ferro MD [facility] CPT-4: 26549 02/12/2015 ([id number]) 59025 EST. PATIENT, LEVEL III Diagnosis: ESSENTIAL HYPERTENSION[ICD9: 401.9] Diagnosis: Left knee pain[ICD9: 719.46] Nydia Ferro MD [facility] CPT-4: 52817 12/28/2014 ([id number]) 71756 EST. PATIENT, LEVEL IV Diagnosis: HYPERLIPIDEMIA[ICD9: 272.4] Diagnosis: ESSENTIAL HYPERTENSION[ICD9: 401.9] Diagnosis: H/O long-term (current) use of anticoagulants[ICD9: V58.61] Verna Ferro MD [facility] CPT-4: 55107 12/19/2014 ([id number]) 36255 EST. PATIENT, LEVEL IV Diagnosis: ESSENTIAL HYPERTENSION[ICD9: 401.9] Diagnosis: HYPERLIPIDEMIA[ICD9: 272.4] Diagnosis: H/O long-term (current) use of anticoagulants[ICD9: V58.61] Verna Ferro MD [facility] CPT-4: 02758 08/22/2014 ([id number]) 14196 EST. PATIENT, LEVEL IV Diagnosis: ESSENTIAL HYPERTENSION[ICD9: 401.9] Diagnosis: HYPERLIPIDEMIA[ICD9: 272.4] Verna Ferro MD, [facility] CPT- 4: 88627 05/23/2014 ([id number]) 86908 EST. PATIENT, LEVEL III Diagnosis: HYPERLIPIDEMIA[ICD9: 272.4] Diagnosis: ESSENTIAL HYPERTENSION[ICD9: 401.9] Verna Ferro MD, [facility] CPT-4: 80611 03/19/2014 ([id number]) 64512 EST. PATIENT, LEVEL III Diagnosis: Diarrhea[ICD9: 787.91] SHALOM Leos MD CPT-4: 93576 03/05/2014 ([id number]) 20508 EST. PATIENT, LEVEL III Diagnosis: Abdominal pain[ICD9: 789.00] Diagnosis: Abdominal abscess[ICD9: 567.22] Verna Ferro MD, [facility] CPT- 4: 92815 02/19/2014 ([id number]) 01907 EST. PATIENT, LEVEL III Diagnosis: Cellulitis of oral soft tissues[ICD9: 528.3] Verna Ferro MD, [facility] CPT-4: 38344 02/13/2014 ([id number]) 49592 EST. PATIENT, LEVEL III Diagnosis: ESSENTIAL HYPERTENSION[ICD9: 401.9] Diagnosis: Abdominal pain[ICD9: 789.00] Verna Ferro MD, [facility] CPT- 4: 18024 02/08/2014 ([id number]) Patient admitted to the hospital from clinic (NO CHARGE) Diagnosis: Abdominal pain[ICD9: 789.00] Diagnosis: Right lower quadrant abdominal pain[ICD9: 789.03] Diagnosis: Rebound tenderness[ICD9: 789.60] Diagnosis: FEVER NOS[ICD9: 780.60] Diagnosis: Nausea alone[ICD9: 787.02] Diagnosis: ESSENTIAL HYPERTENSION[ICD9: 401.9] Diagnosis: Renal insufficiency[ICD9: 593.9] Diagnosis: Dehydration[ICD9: 276.51] Verna Ferro MD, [facility] CPT-4: 34610I 01/18/2014 ([id number]) 56478 EST. PATIENT, LEVEL IV Diagnosis: ESSENTIAL HYPERTENSION[SNOMED: 58528577] Diagnosis: HYPERLIPIDEMIA[ICD9: 272.4] Diagnosis: Nodule of tongue[ICD9: 784.2] Verna Ferro MD [facility] CPT- 4: 20933 10/10/2013 ([id number]) 39053 EST. PATIENT, LEVEL IV Diagnosis: ESSENTIAL HYPERTENSION[SNOMED: 71254288] Diagnosis: HYPERLIPIDEMIA[ICD9: 272.4] SHALOM Leos MD CPT- 4: 62616 08/15/2013 ([id number]) 69352 EST. PATIENT, LEVEL III Diagnosis: COUGH[ICD9: 786.2] Diagnosis: RENAL & URETERAL DIS NOS[ICD9: 593.9] Verna Ferro MD [facility] CPT-4: 94921 05/16/2013 ([id number]) 23375 EST. PATIENT, LEVEL III Diagnosis: ESSENTIAL HYPERTENSION[SNOMED: 66869528] Diagnosis: COUGH[ICD9: 786.2] Diagnosis: PNEUMONIA (CAP)[ICD9: 486] Verna Ferro MD [facility] CPT- 4: 77558 05/01/2013 ([id number]) 90060 EST. PATIENT, LEVEL IV Diagnosis: ESSENTIAL HYPERTENSION[SNOMED: 64492481] Diagnosis: HYPERLIPIDEMIA[ICD9: 272.4] Verna Ferro MD [facility] CPT- 4: 39231 02/01/2013 ([id number]) 10965 EST. PATIENT, LEVEL III Diagnosis: ESSENTIAL HYPERTENSION[SNOMED: 63411384] Verna Ferro MD [facility] CPT-4: 93937 11/01/2012 ([id number]) 73818 EST. PATIENT, LEVEL III Diagnosis: ESSENTIAL HYPERTENSION[SNOMED: 44204521] Diagnosis: Multiple actinic keratoses[ICD9: 702.0] [facility] CPT-4: 08016 09/01/2012 ([id number]) 58024 EST. PATIENT, LEVEL III Diagnosis: ESSENTIAL HYPERTENSION[SNOMED: 40172349] Diagnosis: CRP elevated[ICD9: 790.95] Verna Ferro MD [facility] CPT- 4: 99220 07/07/2012 ([id number]) 26588 EST. PATIENT, LEVEL IV Diagnosis: BACTERIAL PNEUMONIA NEC[ICD9: 482.89] Diagnosis: Cough[ICD9: 786.2] Verna Ferro MD, [facility] CPT-4: 04041 06/28/2012 ([id number]) 79177 EST. PATIENT, LEVEL IV Diagnosis: ESSENTIAL HYPERTENSION[SNOMED: 43846937] Diagnosis: Constipation[ICD9: 564.00] Diagnosis: H/O long-term (current) use of anticoagulants[ICD9: V58.61] Verna Ferro MD , [facility] CPT-4: 07963 05/25/2012 02915 EST. PATIENT, LEVEL IV Diagnosis: Pneumonia[ICD9: 486] Diagnosis: COUGH[ICD9: 786.2] Diagnosis: RENAL & URETERAL DIS NOS[ICD9: 593.9] Nydia Ferro MD, [facility] CPT-4: 86830 03/17/2012 ([id number]) 61327 EST. PATIENT, LEVEL IV Diagnosis: ESSENTIAL HYPERTENSION[SNOMED: 14993041] Diagnosis: HYPERLIPIDEMIA[ICD9: 272.4] Diagnosis: Renal insufficiency[ICD9: 593.9] Verna Ferro MD, [facility] CPT-4: 98444 02/17/2012 96381 EST. PATIENT, LEVEL IV Diagnosis: ESSENTIAL HYPERTENSION[SNOMED: 53924962] Diagnosis: Constipation - functional[ICD9: 564.09] Diagnosis: COUGH[ICD9: 786.2] Verna Ferro MD, [facility] CPT-4: 30209 10/21/2011 ([id number]) 37340 EST. PATIENT, LEVEL IV Diagnosis: ESSENTIAL HYPERTENSION[SNOMED: 36796743] Diagnosis: HYPERLIPIDEMIA[ICD9: 272.4] Diagnosis: Sacroiliitis[ICD9: 720.2] Verna Ferro MD, [facility] CPT-4: 79240 06/24/2011 ([id number]) 41216 EST. PATIENT, LEVEL IV Diagnosis: ESSENTIAL HYPERTENSION[SNOMED: 58041047] Diagnosis: HYPERLIPIDEMIA[ICD9: 272.4] Verna Ferro MD, [facility] CPT- 4: 37830 05/25/2011 21011 EST. PATIENT, LEVEL IV Diagnosis: ESSENTIAL HYPERTENSION[SNOMED: 73684337] Diagnosis: Fatigue[ICD9: 780.79] Verna Ferro MD, [facility] CPT-4: 91636 03/23/2011 79772 EST. PATIENT, LEVEL IV Diagnosis: Cyst of ear canal[ICD9: 380.89] Diagnosis: PNEUMONIA (CAP)[ICD9: 486] Diagnosis: HYPOTENSION[ICD9: 458.9] Nydia Ferro MD, [facility] CPT-4: 76161 02/03/2011 30310 EST. PATIENT, LEVEL IV Diagnosis: Dehydration[ICD9: 276.51] Diagnosis: PNEUMONIA (CAP)[ICD9: 486] Nydia Ferro MD, [facility] CPT-4: 55314 01/30/2011 36530 EST. PATIENT, LEVEL IV Diagnosis: PNEUMONIA (CAP)[ICD9: 486] Diagnosis: Dehydration[ICD9: 276.51] Diagnosis: HYPOTENSION[ICD9: 458.9] Nydia Ferro MD, [facility] CPT-4: 42988 01/29/2011 Plan of Care Planned Activity Notes Codes Status Date Appointment: Maria E Pulido WPtel: [facility] [place] [facility] - Annual Wellness Visit 04/22/2017 Appointment: Lab [...] to medications. 03/09/2017 Appointment: Verna Ferro WPtel: [facility] [place] (15 min) Moderate 03/09/2017 Patient Education: [...] injections. 12/01/2016 Appointment[phone] ([facility] min) Moderate 12/01/2016 Patient Education: [...] canceled again. 11/26/2016 Appointment: [phone] [place] (30 min) Complex 11/26/2016 Patient Education: [...] symptoms. 08/04/2016 Appointment: [phone] (15 min) Moderate 08/04/2016 Patient Education: [...] surrogate. 04/17/2016 App[facility]ment: N[phone] [facility] - Annual Wellness Visit 04/17/2016 Patient Education: [...] point injections. 04/07/2016 Appointment: Verna Ferro WPtel: [phone] [facility] (15 min) Moderate 04/07/2016 Patient Education: [...] to medications. 12/04/2015 Appointment: Verna Ferro WPtel: [phone] [facility] (15 min) Moderate 12/04/2015 Patient Education: [...] been sent to the pharmacy. talk to [facility] therapy - ask them to take you down to [employer] and show you which machines and how much on each machine you should be working on and how often to do the machines. Coumadin ( warfarin)pills - take 5mg wednesday/wednesday/wednesday/wednesday/wednesday and 1/2 pill wednesday/ check inr in 2 weeks 10/29/2015 Appointment: [phone] [facility] (15 min) Moderate 10/29/2015 Patient Education: [...] to medications. 06/25/2015 Appointment: [phone] [facility] (15 min) Moderate 06/25/2015 Patient Education: Patient Medication Summary Completed 06/25/2015 Patient Education: Hypertension Completed 06/25/2015 Care Plan: Referral Order SNOMED-CT : [id number] Ordered 06/25/2015 Visit Plan: Hypertension - well [...] injectable medications. 03/21/2015 Appointment: [phone] (15 min) Moderate 03/21/2015 Patient Education: Patient Medication Summary Completed 03/21/2015 Patient Education: Hypertension Completed 03/21/2015 Care Plan: Referral Order SNOMED-CT : [id number] Ordered 03/21/2015 Patient Education: Patient Medication Summary Completed 03/20/2015 Visit Plan: QZE-crkibwagoi-lb change Pneumonia-resolved Left knee pain-continue pennsaid-recommend MRI [...] Moderate 02/12/2015 Appointment: Verna Ferro [facility]Ptel[facility] (15 min) Moderate 02/12/2015 Patient Education: [...] 3.5. 12/19/2014 Appointment: [phone] Follow up 12/19/2014 Patient Education: Patient [...] and 3.5. 08/22/2014 Appointment: Verna Ferro WPtel: [facility] [place] Follow up 08/22/2014 Patient Education: Patient Medication [...] to medications. 05/23/2014 Appointment: Verna Ferro WPtel: [facility] [place] [place] Follow up 05/23/2014 Patient Education: Patient Medication Summary Completed 05/23/2014 Patient Education: Hypertension Completed 05/23/2014 Appointment: Verna Ferro WPtel: [phone] [facility] [place] Follow up 05/21/2014 Appointment: Vern[facility] Ferro [facility]Ptel[facility] Follow up 05/11/2014 Visit Plan: Hypertension - [...] Care Plan: COMPLETE CBC AUTOMATED LOINC : 12534-0 Ordered 03/19/2014 Visit Plan: Diarrhea - persistent - Pt to start on probiotic three times daily x 2 weeks. Urinary urgency - pt to start on flomax Pt to restart several home medications, bring in blood pressure machine. 03/05/2014 Appointment: Verna Ferro WPtel: [facility] [place] Follow up 03/05/2014 Patient Education: Patient Medication Summary Completed 03/05/2014 Visit Plan: Pt to see Dr. Graf at 3:30pm on Wednesday Pt to finish antibiotics and advance diet. 02/19/2014 Appointment: Verna Ferro WPtel: [address] [place] [address] Follow up 02/19/2014 Patient Education: Patient Medication [...] at home. 02/08/2014 Appointment: Verna Ferro WPtel: [phone] [facility] Follow up 02/08/2014 Patient Education: Patient [...] pt NPO 01/18/2014 Appointment: Verna Ferro WPtel: [facility] [place] Sick 01/18/2014 Patient Education: Patient Medication [...] likely biopsy. 10/10/2013 Appointment: Verna Ferro WPtel: [phone] [facility] Follow up 10/10/2013 Patient Education: Patient Medication [...] medications. 08/15/2013 Appointment: Verna Ferro WPtel: [phone] [facility] Follow up 08/15/2013 Patient Education: Patient Medication Summary Completed 08/15/2013 Patient Education: Hypertension Completed 08/15/2013 Visit Plan: Cough - improved - continue with current treatment. Elevated creatinine - recommended pt to increase water intake. 05/16/2013 Appointment: Verna Ferro WPtel: [phone] [facility] Follow up 05/16/2013 Patient Education: Patient [...] this illness. 05/01/2013 Appointment: Verna Ferro WPtel: [phone] [facility] Follow up 05/01/2013 Patient Education: Patient Medication [...] PT AGREED TO START EXERCISE AT THE [facility] IN [place] AT LEAST THREE TIMES A WEEK. 02/01/2013 Appointment: [facility]el[phone] Follow up 02/01/2013 Patient Education: Patient Medication [...] home. 11/01/2012 Appointment: [facility]el[phone] Follow up 11/01/2012 Patient Education: Patient Medication Summary Completed 11/01/2012 Patient Education: Hypertension Completed 11/01/2012 Appointment: Nydia Cuellar [facility]Ptel[phone] [place] Follow up 09/28/2012 Visit Plan: Wound [...] pathology. 09/01/2012 Appointment: [facility]Ptel[phone] Follow up 09/01/2012 Patient Education: Patient [...] week. 07/07/2012 Appointment: [facility]Ptel[phone] Follow up 07/07/2012 Patient Education: Patient [...] WEEK. 06/08/2012 Appointment: [facility]el[phone] [facility] Follow up 06/08/2012 Patient Education: Patient [...] 3.5. 05/25/2012 Appointment: [facility]el[phone] [facility] Follow up 05/25/2012 Patient Education: Patient [...] on use. [employer] to [facility] and labs. He is to call or go to ER if his symptoms do not improve, or if ANY worse. Patient verbalized understanding of plan. Chronic renal disease -check labs and follow renal function closely. 03/17/2012 Appointment: Polo Nydia WPtel: [phone] [facility] [place] [address] Sick 03/17/2012 Patient Education: Patient Medication Summary [...] po bid. 02/17/2012 Appointment: Verna Ferro WPtel: [facility] [place] Follow up 02/17/2012 Patient Education: Patient [...] this time. 10/21/2011 Appointment: Verna Ferro WPtel: [phone] [facility] Other 10/21/2011 Patient Education: Patient Medication [...] joints bilaterally 06/24/2011 Appointment: Verna Ferro WPtel: [address] [place] [address] [facility] 06/24/2011 Patient Education: Patient Medication Summary Completed [...] medications. 05/25/2011 Appointment: Verna Ferro WPtel: [phone] [facility] Other 05/25/2011 Patient Education: Patient Medication Summary [...] smaller supper. 03/23/2011 Appointment: Verna Ferro WPtel: [phone] Other 03/23/2011 Patient Education: Patient Medication Summary Completed 03/23/2011 Patient Education: High Blood Pressure: Essential Hypertension Completed 2010 Appointment: Verna Ferro WPtel: [facility] [place] [address] Other 02/24/2011 Visit Plan: Ahnlidota-ugfcaknf-apscjgygi natural and expected course of this diagnosis and patient to alert me if symptoms do not follow expected course. Follow up in 3 weeks, sooner if any symptoms return. Finish antibiotic as instructed. Btltegxnldz-offvgcsd-ndvgqra diovan 1/2 tab daily-monitor blood pressure daily [...] exam, and the assessment and plan. 02/03/2011 Visit Plan: [place]-nhrgdakb-oorlzwkgb natural and expected course of this diagnosis and patient to alert me if symptoms do not follow expected course. Follow up in 3 weeks, sooner if any symptoms return. Finish antibiotic as instructed. Bbdwcdvobut-dduiktas-hqjcznc diovan 1/2 tab daily-monitor blood pressure daily and bring to clinic for review at next appointment. Call with any concerns-elevated blood pressure, chest pain, soa, etc. Ear lesion-right ear canal-lesion drained per Dr. Ferro-culture obtained. 02/03/2011 Appointment: Nydia Cuellar WPtel: [facility] [place] Other 02/03/2011 Patient Education: Patient Medication Summary Completed 02/03/2011 Visit Plan: Pneumonia-discussed natural and expected course of this diagnosis and patient to alert me if symptoms do not follow expected course. Rocephin 1gm injection given in the office today. Continue levaquin 1/2 tab daily for 5 additional days. Follow up Wednesday in the office. Ympyurkvxrr-xdfuweiy-xsev recheck labs today-continue to increase fluids and monitor symptoms. Hypotension-improved as well. Monitor blood pressure at home. Return to clinic Wednesday for follow up, sooner if needed. ER over the weekend with any changes or concerns. Recheck labs Wednesday a.m. 01/30/2011 Appointment: Nydia Cuellar WPtel: [facility] [place] [place] Other 01/30/2011 Patient Education: Patient Medication Summary [...] next week. 01/29/2011 Appointment: Nydia Cuellar WPtel: [address] [place], [place] [address] [facility] 01/29/2011 Patient Education: Patient Medication Summary Completed [...] PT AGREED TO START EXERCISE AT THE [facility] IN [place] AT LEAST THREE TIMES A WEEK. PT IS TO START TAKING THE NORVASC [...] will repeat in one more week. . Diarrhea - persistent - Pt to [...] between 2.0 and 3.5. . Hypertension - too well controlled - [...] assure normal liver response to medications. . Medicare Exam - today we discussed [...] medication call if symptoms are not improving. I sent 2 prescriptions to [facility]. Start [...] on use. [facility] to [facility] and labs. He is to call or go to ER if his symptoms do not improve, or if ANY worse. Patient verbalized understanding of plan. Chronic renal disease-check labs and follow renal function closely. Continue levaquin 1/2 daily for the next [...] days. Follow up Wednesday in the office. Dwrnhtyqsru-zgbwmsro-wbct recheck labs today-continue to increase fluids and [...] - prn cough medication - monitor symptoms. . Pneumonia - Pt has been diagnosed [...] 9AM on 10/14/13 - office is on [facility] - across from Dr. Camarena's office . [...] in blood pressure readings at home. . DFU-gcongatjbz-wo change Pneumonia-resolved Left knee pain-continue pennsaid-recommend MRI [...] to wait and get canceled again. . Wound Instructions - Pt was instruced to keep the wound clean, wash with antibacterial soap, use triple antibiotic ointment, call if redness, pustular drainage, or any other acute conerns. . Hypertension - well controlled - continue [...] shave biopsy and sent for pathology. . Axdldktaf-dxxlleuz-rjnocoxsn natural and expected course of this diagnosis and patient to alert me if symptoms do not follow expected course. Follow up in 3 weeks, sooner if any symptoms return. Finish antibiotic as instructed. Tgythaglvnt-ikjswkpl-elvuoyx diovan 1/2 tab daily-monitor blood pressure daily [...] physical exam, and the assessment and plan. Restart your diovan 1/2 tab daily. Continue to monitor blood pressure daily and call with readings. May change albuterol breathing treatments to as needed only. May stop levaquin after last dose on Wednesday. Recheck kidney function and coumadin level in 2 weeks. Follow up with Dr. Ferro 3 weeks for your blood pressure. . Nrtvveenc-qymdcryk-pxgpsbhrc natural and expected course of this diagnosis and patient to alert me if symptoms do not follow expected course. Follow up in 3 weeks, sooner if any symptoms return. Finish antibiotic as instructed. Mqverugpqqv-nhvoawkx-vlzkhnq diovan 1/2 tab daily-monitor blood pressure daily [...] response to medications. restart lipitor restart trilipix restart diovan 320mg [...] been sent to the pharmacy. talk to [facility] home care therapy - ask them to take you down to [employer] and show you which machines and how [...] been sent to the pharmacy. talk to [facility] - ask them to take you down to [employer] and show you which machines and how [...] blood pressure readings at home. Left knee zysw-kaafjylp-mdokptb sent for xray
--- OUTSIDE RECORDS SUMMARY | 2017-09-13 12:40 | XMS REPORT | Continuity of Care Document ---
Author Author [facility] Organization [facility] Address Unknown Phone Unavailable Allergies Active Description Code Type Severity Reaction Onset Reported/Identified Relationship to Patient Clinical Status Yes nitroglycerin [id number] Drug Allergy Mild DECREASED BP 01/23/2009 Yes amoxicillin [id number] Drug Allergy Moderate HIVES 02/14/2014 Medications There is no data. Problems Date Dx Coded Attending Type Code Diagnosis Diagnosed By 04/29/2011 Ot V58.61 04/29/2011 Ot V58.69 04/29/2011 Ot V58.83 01/21/2014 LUCIANA MACKENZIE, CAREY Torres Ot 038.9 SEPTICEMIA NOS 01/21/2014 CAREY CHOWDHURY MD Ot 041.02 BACTERIAL INFECTION DUE TO STREPTOCOCCUS 01/21/2014 CAREY CHOWDHURY MD Ot 272.0 PURE HYPERCHOLESTEROLEM 01/21/2014 CAREY CHOWDHURY MD Ot 276.51 DEHYDRATION 01/21/2014 CAREY CHOWDHURY MD Ot 356.9 IDIO PERIPH NEURPTHY NOS 01/21/2014 CAREY CHOWDHURY MD Ot 403.90 HYPTNSV CHR KID DIS, UNSPEC, W CHR KD ST 01/21/2014 CAREY CHOWDHURY MD Ot 414.00 CORON ATHEROSCLER NOS TYPE VESSEL, NATIV 01/21/2014 CAREY CHOWDHURY MD Ot 427.31 ATRIAL FIBRILLATION 01/21/2014 CAREY CHOWDHURY MD Ot 443.9 PERIPH VASCULAR DIS NOS 01/21/2014 CAREY CHOWDHURY MD Ot 540.1 ABSCESS OF APPENDIX 01/21/2014 CAREY CHOWDHURY MD Ot 553.3 DIAPHRAGMATIC HERNIA 01/21/2014 CAREY CHOWDHURY MD Ot 584.9 ACUTE RENAL FAILURE, UNSPECIFIED 01/21/2014 CAREY CHOWDHURY MD Ot 585.9 CHRONIC KIDNEY DISEASE, UNSPECIFIED 01/21/2014 CAREY CHOWDHURY MD Ot 599.0 URIN TRACT INFECTION NOS 01/21/2014 CAREY CHOWDHURY MD Ot 716.90 ARTHROPATHY NOS-UNSPEC 01/21/2014 CAREY CHOWDHURY MD Ot 781.2 ABNORMALITY OF GAIT 01/21/2014 CAREY CHOWDHURY MD Ot 784.42 DYSPHONIA 01/21/2014 CAREY CHOWDHURY MD Ot 788.20 RETENTION OF URINE NOS 01/21/2014 CAREY CHOWDHURY MD Ot 909.1 LATE EFF NONMED SUBSTANC 01/21/2014 CAREY CHOWDHURY MD Ot 995.91 SEPSIS 01/21/2014 CAREY CHOWDHURY MD Ot E929.5 LATE EFF ENVIRONMENT ACC 01/21/2014 CAREY CHOWDHURY MD Ot V10.51 HX OF BLADDER MALIGNANCY 01/21/2014 CAREY CHOWDHURY MD Ot V12.59 HX-CIRCULATORY SYST DIS,NEC 01/21/2014 CAREY CHOWDHURY MD Ot V15.82 HISTORY OF TOBACCO USE 01/21/2014 CAREY CHOWDHURY MD Ot V45.81 AORTOCORONARY BYPASS 01/01/2015 ANTONY PINEDA FINANCIAL MANAGEMENT Ot 719.06 01/04/2015 ANTONY PINEDA FINANCIAL MANAGEMENT Ot 719.06 01/04/2015 ANTONY PINEDA FINANCIAL MANAGEMENT Ot 719.06 01/17/2015 ANTONY PINEDA FINANCIAL MANAGEMENT Ot 719.06 01/24/2015 ANTONY PINEDA FINANCIAL MANAGEMENT Ot 719.06 03/05/2015 Ot J18.9 03/14/2015 Ot J18.9 08/21/2015 Ot 429.3 08/21/2015 Ot 458.9 08/21/2015 Ot 486 08/21/2015 Ot 276.50 08/21/2015 Ot 250.00 08/21/2015 Ot 257.2 08/21/2015 Ot 401.9 08/21/2015 Ot 780.79 08/21/2015 Ot 790.6 08/21/2015 Ot V58.69 08/21/2015 Ot V82.81 08/21/2015 Ot 401.9 08/21/2015 Ot 786.2 08/21/2015 Ot V45.81 08/21/2015 Ot 429.3 08/21/2015 Ot 486 08/21/2015 Ot 786.2 08/21/2015 CAREY CHOWDHURY MD Ot 458.9 08/21/2015 CAREY CHOWDHURY MD Ot 789.00 08/21/2015 ANTONY PINEDA Ot 719.06 08/21/2015 Ot J18.9 09/03/2015 CAREY CHOWDHURY MD Ot M54.5 LOW BACK PAIN 09/19/2015 CAREY CHOWDHURY MD Ot M54.5 LOW BACK PAIN 09/30/2015 CAREY CHOWDHURY MD Ot M54.5 LOW BACK PAIN 04/20/2017 Ot 250.00 DIAB ROSEMARY WO COMPL, TYPE II OR UNSPEC TY 04/20/2017 Ot 257.2 TESTICULAR HYPOFUNC NEC 04/20/2017 Ot 401.9 HYPERTENSION NOS 04/20/2017 Ot 780.79 OTH MALAISE FATIGUE 04/20/2017 Ot 790.6 ABN BLOOD CHEMISTRY NEC 04/20/2017 Ot V58.69 OTH MED,LT, CURRENT USE 04/20/2017 Ot V82.81 SCREENING FOR OSTEOPOROSIS 04/20/2017 Ot 401.9 HYPERTENSION NOS 04/20/2017 Ot 786.2 COUGH 04/20/2017 Ot V45.81 AORTOCORONARY BYPASS 04/20/2017 Ot 429.3 CARDIOMEGALY 04/20/2017 Ot 486 PNEUMONIA, ORGANISM NOS 04/20/2017 Ot 786.2 COUGH 04/20/2017 CAREY CHOWDHURY MD Ot 458.9 HYPOTENSION NOS 04/20/2017 CAREY CHOWDHURY MD Ot 789.00 ABDOMINAL PAIN, UNSPECIFIED SITE 04/20/2017 ANTONY PINEDAP Ot 719.06 JOINT EFFUSION-L/LEG 04/20/2017 Ot J18.9 PNEUMONIA, UNSPECIFIED ORGANISM 04/20/2017 CAREY CHOWDHURY MD Ot M54.5 LOW BACK PAIN 04/22/2017 Ot 401.9 HYPERTENSION NOS 04/22/2017 Ot 786.2 COUGH 04/22/2017 Ot V45.81 AORTOCORONARY BYPASS 04/22/2017 Ot 429.3 CARDIOMEGALY 04/22/2017 Ot 486 PNEUMONIA, ORGANISM NOS 04/22/2017 Ot 786.2 COUGH 04/22/2017 CAREY CHOWDHRUY MD Ot 458.9 HYPOTENSION NOS 04/22/2017 CAREY CHOWDHURY MD Ot 789.00 ABDOMINAL PAIN, UNSPECIFIED SITE 04/22/2017 ANTONY PINEDAP Ot 719.06 JOINT EFFUSION-L/LEG 04/22/2017 Ot J18.9 PNEUMONIA, UNSPECIFIED ORGANISM 04/22/2017 LUCIANA MACKENZIE, CAREY Torres Ot M54.5 LOW BACK PAIN 05/13/2017 GALI MACKENZIE, LANRE Torres Ot N40.0 BENIGN PROSTATIC HYPERPLASIA WITHOUT LOW 05/13/2017 GALI MACKENZIE, LANRE Torres Ot R31.9 HEMATURIA, UNSPECIFIED 05/19/2017 GALI MACKENZIE, LANRE Torres Ot N40.0 BENIGN PROSTATIC HYPERPLASIA WITHOUT LOW 05/19/2017 GALI MACKENZIE, LANRE Torres Ot R31.9 HEMATURIA, UNSPECIFIED Procedures Code Description Performed By Performed On 47.01 LAPAROSCOP APPENDECTOMY 01/18/2014 Results There is no data. Encounters ACCT No. Visit Date/Time Discharge Status Pt. Type Provider Facility Loc./Unit Complaint [id number] 04/22/2017 12:33:00 04/22/2017 23:59:59 CLS Outpatient LANRE TALBERT MD [facility] RAD HEMATURIA [id number] 08/21/2015 08:29:00 08/21/2015 23:59:59 CLS Outpatient CAREY CHOWDHURY MD [facility] RAD LOW BACK PAIN [id number] 12/28/2014 11:10:00 12/28/2014 23:59:59 CLS Outpatient ANTONY PINEDA [facility] RAD L KNEE PAIN, SWELLING [id number] 02/14/2014 13:57:00 02/14/2014 23:59:59 CLS Outpatient CAREY CHOWDHURY MD [facility] ABD PAIN/HTN [id number] 01/18/2014 12:18:00 01/21/2014 14:00:00 DIS Inpatient CAREY CHOWDHURY MD [facility] SURGICAL ABD PAIN [id number] 08/21/2015 08:27:00 Document Registration [id number] 05/01/2015 15:50:00 Document Registration [id number] 02/12/2015 15:12:00 Document Registration [id number] 06/29/2012 09:12:00 Document Registration [id number] 03/17/2012 11:19:00 Document Registration [id number] 10/30/2011 11:22:00 Document Registration [id number] 01/29/2011 15:53:00 Document Registration [id number] 01/29/2011 11:17:00 Document Registration [id number] 01/29/2011 10:42:00 Document Registration [id number] 03/04/2017 23:43:51 03/04/2017 23:59:59 [facility] Outpatient [id number] 12/28/2014 11:11:52 ACT Document Registration
[2017-09-13] MEDS ORDERED: CATHETER FLUSH 10 ML SYR IV PRN (12:45)
[2017-09-13 12:52] LABS: BASOPHILS % (AUTO) 0 % (0-10); EOSINOPHILS # (AUTO) 0.3 10^3/uL (0.0-0.3); EOSINOPHILS % (AUTO) 4 % (0-10); HEMATOCRIT 21 % (40-54); LYMPHOCYTES # (AUTO) 1.1 X 10^3 (1.0-4.0); LYMPHOCYTES % (AUTO) 19 % (12-44); MEAN CORPUSCULAR HEMOGLOBIN 27 PG (25-34); MEAN CORPUSCULAR HGB CONC 32 G/DL (32-36); MEAN CORPUSCULAR VOLUME 85 FL (80-99); MEAN PLATELET VOLUME 11.5 FL (7.4-10.4); MONOCYTES # (AUTO) 0.6 X 10^3 (0.0-1.0); MONOCYTES % (AUTO) 10 % (0-12); NEUTROPHILS # (AUTO) 4.1 X 10^3 (1.8-7.8); NEUTROPHILS % (AUTO) 67 % (42-75); PLATELET COUNT 377 10^3/uL (130-400); RED BLOOD COUNT 2.51 10^6/uL (4.35-5.85); RED CELL DISTRIBUTION WIDTH 19.4 % (10.0-14.5); WHITE BLOOD COUNT 6.1 10^3/uL (4.3-11.0)
[2017-09-13 12:55] LABS: HEMOGLOBIN 6.7 G/DL (13.3-17.7)
[2017-09-13] MEDS: NS IV 1000 ML 1,000 ML IV SCH (12:56)
[2017-09-13] MEDS ORDERED: LIDOCAINE UROJET 2% GEL 10 ML PKG TOP NR (13:00)
[2017-09-13 13:11] LABS: ALBUMIN 3.8 GM/DL (3.2-4.5); BILIRUBIN,TOTAL 0.9 MG/DL (0.1-1.0); CREATININE SERUM 2.86 MG/DL (0.60-1.30); MAGNESIUM 2.1 MG/DL (1.8-2.4); PHOSPHORUS 5.5 MG/DL (2.3-4.7); POTASSIUM 4.1 MMOL/L (3.6-5.0); TOTAL PROTEIN 7.4 GM/DL (6.4-8.2)
[2017-09-13] MEDS ORDERED: AMLO10TA2 PO (13:34)
[2017-09-13] MEDS ORDERED: BUME2TAB3 PO (13:34)
[2017-09-13] MEDS ORDERED: VALS320T14 PO (13:34)
[2017-09-13] MEDS ORDERED: FENO145T37 PO (13:34)
[2017-09-13] MEDS ORDERED: CARV25TA PO (13:34)
[2017-09-13] MEDS ORDERED: TAMS0.4C2 PO (13:34)
[2017-09-13] MEDS ORDERED: ATOR80TA76 PO (13:34)
[2017-09-13] MEDS ORDERED: POTA10TA36 PO (13:34)
[2017-09-13] MEDS ORDERED: ALPR0.5T7 PO ×2 (13:34→14:58)
[2017-09-13] MEDS ORDERED: FURO20TA4 PO (13:34)
[2017-09-13 13:55] LABS: INR 1.7 (0.8-1.4); PROTHROMBIN TIME PATIENT 20.1 SEC (12.2-14.7)
[2017-09-13] MEDS ORDERED: OMEG-160 PO (14:24)
[2017-09-13] MEDS ORDERED: MULT-1029 PO (14:24)
[2017-09-13] MEDS ORDERED: ASPI-983 PO (14:24)
[2017-09-13] MEDS ORDERED: MELA1TAB27 PO (14:24)
[2017-09-13] MEDS ORDERED: WARF-48 PO ×2 (14:24)
[2017-09-13] MEDS ORDERED: MENT113P TP (14:25)
[2017-09-13] MEDS ORDERED: POLY17PO6 PO (14:25)
[2017-09-13] MEDS ORDERED: OMEG-9 PO (14:52)
[2017-09-13] MEDS ORDERED: CHOL400C9 PO (14:52)
[2017-09-13] MEDS ORDERED: LACT1CAP39 PO (14:52)
--- NOTE | 2017-09-13 15:57 | Diagnostic Imaging Report ---
PA and lateral chest at 2:57 PM. Indication: Cough. Findings: The cardiomegaly and the sternotomy wires and Surgiclips on the prior exam of 02/12/2015 are again evident and no different. However in the interval since the prior study, a poorly defined 1.3 x 1.7 cm area of increased density has developed in the right midlung. This finding could be related to a neoplastic mass. I would recommend that CT of the chest be performed for further study. There are chronic pulmonary changes evident but there is no sign of failure, pneumonia or pleural effusion. The mediastinum is not widened. The osseous structures are intact. Impression: 1. In the interval since the prior exam a small area of increased density has developed in the right midlung. This of uncertain etiology but worrisome for neoplasm. CT of the chest would be recommended for further study. 2. There is cardiomegaly, evidence of prior cardiac surgery and chronic pulmonary disease. There is no acute cardiopulmonary abnormality identified however. Dictated by: Dictated on workstation # [id number]
--- NOTE | 2017-09-13 21:01 | Diagnostic Imaging Report ---
PROCEDURE: CT chest, abdomen, and pelvis without contrast. TECHNIQUE: Multiple contiguous axial images were obtained through the chest, abdomen, and pelvis without the use of intravenous contrast. INDICATION: Renal failure, hematuria, prostatic dysfunction with hemoptysis. COMPARISON: The study compared with an abdominal pelvic CT dated 04/22/2017. CT CHEST: There is a lobular mass in the patient's right upper lobe measuring 2.3 x 1.8 cm. There is underlying COPD with some scarring and honeycombing as a chronic finding, most notably in the right middle and upper lobes. There is cardiomegaly. There is no pleural or pericardial effusion. Aortic and coronary arterial atherosclerosis without demonstrated aneurysm. Hilar and mediastinal evaluation limited by the absence of vascular contrast. No convincing evidence for adenopathy within those spaces. No fracture deformity. CT ABDOMEN / PELVIS: There is a Ramirez catheter within the urinary bladder lumen. Mild left hydroureteronephrosis has developed without an appreciable intraureteral stone. Partial bladder decompression limits its evaluation. There does appear to be some nodular thickening along the left greater than right urinary bladder wall on the left involving the trigone. Neoplasm could not be excluded. There may be some intraluminal bladder debris, as well. Right kidney is unobstructed. The are hilar vascular calcifications but no opaque stone. The unopacified liver showed no obvious focal abnormality. The spleen, adrenals and pancreas were nonacute. The atherosclerotic aorta is nonaneurysmal. There has been previous appendectomy. There is noninflamed diverticulosis. IMPRESSION: CHEST: 1. Right upper lobe lung mass, neoplasm not excluded. Would suggest metabolic PET CT. 2. There are background emphysematous changes and chronic lung disease with cardiomegaly. No convincing adenopathy ABDOMEN / PELVIS: 1. Left hydroureteronephrosis has developed without an opaque stone. Soft tissue like thickening of the left greater than right bladder wall at the level of the trigone may be an obstructing neoplasm. 2. Cholelithiasis without acute cholecystitis or biliary dilatation. 3. Noninflamed diverticulosis and previous appendectomy. 4. No abdominal pelvic adenopathy. Dictated by: Dictated on workstation # [id number]
[2017-09-13] MEDS ORDERED: MELATONIN 3 MG TABLET ONE (22:23)
[2017-09-13] MEDS ORDERED: ALPRAZolam 0.5 MG (XANAX) TAB ONE (22:23)
[2017-09-13] MEDS: ALPRAZolam 0.5 MG (XANAX) TAB PO SCH (22:29)
[2017-09-13 23:04] LABS: HEMOGLOBIN 7.9 G/DL (13.3-17.7)
[2017-09-14] VITALS (9 sets, daily range): BP systolic 123–155; BP diastolic 55–69
[2017-09-14] MEDS: NS IV 1000 ML 1,000 ML IV SCH ×2 (02:26→14:10)
[2017-09-14] MEDS: PANTOPRAZOLE 40 MG (PROTONIX) TAB PO SCH (06:02)
[2017-09-14 06:54] LABS: BASOPHILS % (AUTO) 0 % (0-10); EOSINOPHILS # (AUTO) 0.4 10^3/uL (0.0-0.3); EOSINOPHILS % (AUTO) 5 % (0-10); HEMATOCRIT 26 % (40-54); HEMOGLOBIN 8.5 G/DL (13.3-17.7); LYMPHOCYTES # (AUTO) 1.1 X 10^3 (1.0-4.0); LYMPHOCYTES % (AUTO) 16 % (12-44); MEAN CORPUSCULAR HEMOGLOBIN 27 PG (25-34); MEAN CORPUSCULAR HGB CONC 33 G/DL (32-36); MEAN CORPUSCULAR VOLUME 83 FL (80-99); MEAN PLATELET VOLUME 11.5 FL (7.4-10.4); MONOCYTES # (AUTO) 0.7 X 10^3 (0.0-1.0); MONOCYTES % (AUTO) 9 % (0-12); NEUTROPHILS # (AUTO) 4.9 X 10^3 (1.8-7.8); NEUTROPHILS % (AUTO) 69 % (42-75); PLATELET COUNT 357 10^3/uL (130-400); RED CELL DISTRIBUTION WIDTH 18.7 % (10.0-14.5); WHITE BLOOD COUNT 7.1 10^3/uL (4.3-11.0)
[2017-09-14 07:24] LABS: ALBUMIN 3.6 GM/DL (3.2-4.5); BILIRUBIN,TOTAL 1.4 MG/DL (0.1-1.0); CALCIUM 8.6 MG/DL (8.5-10.1); CREATININE SERUM 2.49 MG/DL (0.60-1.30); POTASSIUM 3.9 MMOL/L (3.6-5.0)
--- NOTE | 2017-09-14 09:10 | Progress Note ---
Subjective Date Seen by Provider: September 14, 2017 Time Seen by Provider: 08:30 Subjective/Events-last exam see h and p scanned into chart - pt seen in office on 09/13/17 and directly admitted, pt reports that today he is feeling a little better, more energy than on admission. his notes that they had a hard time getting urine out yesterday due to massive clotting. he reports that he has abdominal pain this morning. he denies acute changes to breathing, chest pain, headache, dizziness. Review of Systems General: Fatigue, Malaise HEENT: No Head Aches, No Visual Changes Pulmonary: No Dyspnea, No Cough Cardiovascular: No: Chest Pain, Palpitations Gastrointestinal: Abdominal Pain; No: Nausea Genitourinary: Dysuria, Retention Neurological: Weakness; No: Confusion Objective Exam Last Set of Vital Signs Vital Signs Date Time Temp Pulse Resp B/P (MAP) Pulse Ox O2 Delivery O2 Flow Rate FiO2 09/14/17 07:48 98.3 75 22 137/62 (87) 94 Room Air Capillary Refill : I&O Intake and Output 09/14/17 00:00 Intake Total 200 ml Output Total 2100 ml Balance -1900 ml Intake Oral 200 ml Output Urine Total 2100 ml Bladder Scan Volume Amount 874 ml 54 ml Daily Weight Change Yes, 14-23 lbs General: Alert, Oriented X3, Cooperative HEENT: Atraumatic, PERRLA Neck: Supple Lungs: Clear to Auscultation Heart: Other (tachycardia, with ii/vi lacie) Abdomen: Normal Bowel Sounds, Other (ttp over dome of bladder on left and midline - protuberant abdomen) Extremities: No Clubbing Neuro: Normal Speech Psych/Mental Status: Mental Status NL, Mood NL Results Lab Laboratory Tests 09/13/17 12:45: White Blood Count 6.1, Red Blood Count 2.51L, Hemoglobin 6.7*L, Hematocrit 21L, Mean Corpuscular Volume 85, Mean Corpuscular Hemoglobin 27, Mean Corpuscular Hemoglobin Concent 32, Red Cell Distribution Width 19.4H, Platelet Count 377, Mean Platelet Volume 11.5H, Neutrophils (%) (Auto) 67, Lymphocytes (%) (Auto) 19 , Monocytes (%) (Auto) 10, Eosinophils (%) (Auto) 4, Basophils (%) (Auto) 0, Neutrophils # (Auto) 4.1, Lymphocytes # (Auto) 1.1, Monocytes # (Auto) 0.6, Eosinophils # (Auto) 0.3, Basophils # (Auto) 0.0, Prothrombin Time 20.1H, INR Comment 1.7H, Sodium Level 138, Potassium Level 4.1, Chloride Level 101, Carbon Dioxide Level 27, Anion Gap 10, Blood Urea Nitrogen 63H, Creatinine 2.86H, Estimat Glomerular Filtration Rate 22, BUN/Creatinine Ratio 22, Glucose Level 139H, Calcium Level 9.0, Phosphorus Level 5.5H, Magnesium Level 2.1, Total Bilirubin 0.9, Aspartate Amino Transf (AST/SGOT) 28, Alanine Aminotransferase ( ALT/SGPT) 16, Alkaline Phosphatase 43, Total Protein 7.4, Albumin 3.8 09/13/17 22:54: Hemoglobin 7.9L, Hematocrit 23L 09/14/17 05:38: White Blood Count 7.1, Red Blood Count 3.10L, Hemoglobin 8.5L, Hematocrit 26L, Mean Corpuscular Volume 83, Mean Corpuscular Hemoglobin 27, Mean Corpuscular Hemoglobin Concent 33, Red Cell Distribution Width 18.7H, Platelet Count 357, Mean Platelet Volume 11.5H, Neutrophils (%) (Auto) 69, Lymphocytes (%) (Auto) 16 , Monocytes (%) (Auto) 9, Eosinophils (%) (Auto) 5, Basophils (%) (Auto) 0, Neutrophils # (Auto) 4.9, Lymphocytes # (Auto) 1.1, Monocytes # (Auto) 0.7, Eosinophils # (Auto) 0.4H, Basophils # (Auto) 0.0, Sodium Level 142, Potassium Level 3.9, Chloride Level 109H, Carbon Dioxide Level 24, Anion Gap 9, Blood Urea Nitrogen 54H, Creatinine 2.49H, Estimat Glomerular Filtration Rate 25, BUN/ Creatinine Ratio 22, Glucose Level 89, Calcium Level 8.6, Total Bilirubin 1.4H, Aspartate Amino Transf (AST/SGOT) 28, Alanine Aminotransferase (ALT/SGPT) 15, Alkaline Phosphatase 38L, Total Protein 7.0, Albumin 3.6 Assessment/Plan Assessment/Plan Assess & Plan/Chief Complaint BLADDER MASS RIGHT SIDED LUNG MASS ABDOMINAL PAIN URINARY RETENTION ANEMIA ACUTE RENAL FAILURE HYDROURETERONEPHROSIS CHRONIC ANTICOAGULATION BLADDER MASS - WITH ACUTE RENAL FAILURE AND HYDROURETERONEPHROSIS - DEFER SURGICAL INTERVENTION TO DR. TALBERT - MONITOR URINE OUTPUT - PT WILL NEED CONTINUOUS IRRIGATION UNTIL CLEAR, THEN RESUME JUST BLACKBURN WITHOUT IRRIGATION. PT WILL HAVE TO BE OFF OF ASPIRIN X 1 WEEK AND COUMADIN X 3 DAYS PRIOR TO ANY PROCEDURE - DUE TO HIS BLEEDING AND ELEVATED INR HE HAS BEEN OFF OF COUMADIN FOR SEVERAL DAYS AND I WILL CONFIRM HIS TIME OFF OF ASPIRIN. RIGHT SIDED LUNG MASS - DISCUSSED WITH ONCOLOGY - DR. SUNSHINE TO BE INVOLVED, THE POSITION OF THE MASS DOES NOT LOOK AMENABLE TO BIOPSY VIA CT SCAN. ABDOMINAL PAIN DUE TO URINARY RETENTION - CBI TO BE INITIATED. ANEMIA - IMPROVED AFTER BLOOD TRANSFUSION - WILL REPEAT H AND H THIS AFTERNOON CHRONIC ANTICOAGULATION AND HYPERTENSION - WITH CURRENT HYPOTENSION -HOLDING HOME MEDICATIONS AT THIS TIME - CONSULT TO DR. GONZALEZ - CARDIOLOGY. GI PROPHYLAXIS WILL BE WITH PEPCID. DVT PROPHYLAXIS WITH SCD'S ONLY AT THIS TIME DUE TO PT BLEEDING/ANEMIA Clinical Quality Measures DVT/VTE Risk/Contraindication: Risk Factor Score Per Nursin RFS Level Per Nursing on Admit: 4+=Very High CAREY CHOWDHURY MD September 14, 2017 09:10
--- NOTE | 2017-09-14 09:25 | CONSULTATION REPORT ---
DATE OF SERVICE: 09/14/2017 ATTENDING PHYSICIAN: Dr. Verna Ferro. SUMMARY: After reviewing the patient's records at the office and the hospital interviewing him, this is well known to me patient who has a history of bladder tumor and previous TURP. He had an episode of gross hematuria back in April. A CT scan was obtained that was negative and a cystoscopy done at the office was also negative. The patient recently has been having fluid retention that was treated by the sales enablement manager, also lost 17 pounds, which could be just old fluid. He has been also feeling kind of weak. Over the weekend, he developed gross hematuria and difficulty urination. He came to the emergency room, but emergency room apparently was pretty busy and he was not able to be seen. So he went back home, presented to Dr. Ferro's office with gross hematuria. She contacted me and we admitted the patient to the hospital. Catheter was inserted draining bloody urine and some clots, which were hand irrigated overnight. The patient's warfarin was stopped. His INR was 1.4 and also held his aspirin. The patient underwent a CT scan of the chest, abdomen and pelvis without contrast because of elevated creatinine and it showed abnormality in the bladder that was not there back in April mostly on the left side with left ureterohydronephrosis highly suspicious of a bladder mass, question one on the right side. The patient also is anemic from his episodes of gross hematuria. IMPRESSION: 1. Gross hematuria with possible bladder tumor with left ureteral obstruction. 2. History of bladder tumor. RECOMMENDATION: Once the patient is medically in good condition, we will take him to surgery under anesthesia, do a cystoscopy with possible transurethral resection of bladder tumor. We need to increase his H and H, probably give him some blood. I will check that with Dr. Ferro. Job ID: [id number] DocumentID: [id number] Dictated Date: 09/14/2017 08:18:53 [employer] Date: 09/14/2017 09:25:05 Dictated By: LANRE TALBERT MD
[2017-09-14] MEDS ORDERED: LIDOCAINE UROJET 2% GEL 10 ML PKG TOP NR (10:00)
[2017-09-14] MEDS: LACTOBACILLUS Acidoph/Bulgar (LACTINEX/FLORANEX) TAB PO SCH (10:02)
--- NOTE | 2017-09-14 13:26 | Consultation-Cardiology ---
HPI-Cardiology Cardiology Consultation: Date of Consultation 09/14/17 Date of Admission Attending Physician Verna Ferro MD Admitting Physician Verna Ferro MD Consulting Physician Charles BRANDON MD HPI: Time Seen by Provider: 13:15 Chief Complaint: Gross hematuria This is a 77-year-old gentleman who has history of CABG, atrial fibrillation, carotid disease. He is on warfarin therapy for atrial fibrillation. He has a known enlarged prostate and has been under treatment of Dr. Brooke. He presents with complains of gross hematuria, fatigue and abdominal discomfort. CT scan shows possible bladder mass and also right lung mass. The patient follows with cardiology in [place]. He denies any significant cardiac symptoms and specifically denies chest pain, shortness of breath, palpitations, syncope or near syncope. According to the patient he has above-average functional capacity. Patient is an active smoker. Review of Systems-Cardiology Review of Systems Constitutional: As described under HPI; No As described under HPI, No no symptoms reported, No chills, No fever, No lightheadedness; tiredness Eyes: No As described under HPI, No no symptoms reported, No blindness, No blurred vision, No contact lenses, No drainage, No decreased acuity, No foreign body sensation, No pain, No vision change Ears/Nose/Throat: No As described under HPI, No no symptoms reported, No chronic hearing loss, No ear discharge, No ear pain, No nasal drainage, No ulcerations Respiratory: No no symptoms reported; As described under HPI; No As described under HPI, No cough, No orthopnea, No shortness of breath, No SOB with excertion Cardiovascular: No no symptoms reported; As described under HPI; No As described under HPI, No chest pain, No edema, No irregular heart rate, No lightheadedness, No palpitations Gastrointestinal: No no symptoms reported, No As described under HPI, No abdomen distended, No abdominal pain, No blood streaked bowels, No constipation , No diarrhea, No nausea, No vomiting, No stool coloration changes Genitourinary: No As described under HPI, No burning, No dysuria, No discharge , No frequency, No flank pain; hematuria; No urgency Skin: No rash, No skin related problems, No ulcerations Psychiatric/Neurological: No anxiety, No depression, No seizure, No focal weakness, No syncope Hematologic: No bleeding abnormalities [id number]-[id number] Hx Patient Social History Alcohol Use: Denies Use Recreational Drug Use: No Smoking Status: Current Everyday Smoker Type Used: Cigars Recent Foreign Travel: No Recent Infectious Disease Expo: No Physical Abuse Screen: No Sexual Abuse: No Immunizations Up To Date Date of Pneumonia Vaccine: Jan 19, 2012 Date of Influenza Vaccine: Feb 07, 2014 Past Medical History PMH As described under Assessment. Family Medical History Family History: Ca 19 MOTHER G8 SISTER Cancer of mouth 19 MOTHER Cardiovascular disease 19 FATHER Allergies and Home Medications Allergies Coded Allergies: amoxicillin (Verified Allergy, Intermediate, HIVES, 09/13/17) nitroglycerin (Verified Allergy, Mild, DECREASED BP, 09/13/17) Home Medications Alprazolam 0.5 Mg Tablet, 0.5 MG PO BID PRN for ANXIETY, (Reported) Alprazolam 0.5 Mg Tablet, 0.5 MG PO HS, (Reported) Amlodipine Besylate 10 Mg Tablet, 5 MG PO DAILY, (Reported) TAKES 1/2 OF A (10 MG) TABLET Aspirin 81 Mg Tablet.dr, 81 MG PO HS, (Reported) Atorvastatin Calcium 80 Mg Tablet, 80 MG PO HS, (Reported) Bumetanide 2 Mg Tablet, 2 MG PO DAILY, (Reported) Carvedilol 25 Mg Tablet, 25 MG PO BID, (Reported) Cholecalciferol (Vitamin D3) 400 Unit Capsule, 400 UNIT PO DAILY, (Reported) Fenofibrate Nanocrystallized 145 Mg Tablet, 145 MG PO DAILY, (Reported) Furosemide 20 Mg Tablet, 20 MG PO DAILY PRN for SWELLING, (Reported) Lactobacillus Rhamnosus GG 1 Each Capsule, 1 CAP PO DAILY, (Reported) Melatonin/Pyridoxine HCl (B6) 1 Each Tablet, 9 MG PO HS, (Reported) TAKES 3 (3 MG) TABLETS Menthol/Zinc Oxide 113 Gm Powder, TP PRN PRN for RASH, (Reported) Multivit-Min/FA/Lycopene/Lut 1 Each Tablet, 1 TAB PO DAILY, (Reported) [place]-3/Dha/Epa/Fish Oil 1 Each Capsule.dr, 1,400 MG PO DAILY, (Reported) Potassium Chloride 10 Meq Tab.er.prt, 10 MEQ PO DAILY PRN for WITH FUROSEMIDE, ( Reported) Tamsulosin HCl 0.4 Mg Cap.er.24h, 0.4 MG PO DAILY, (Reported) Valsartan 320 Mg Tablet, 160 MG PO DAILY, (Reported) TAKES 1/2 OF A (320 MG) TABLET Warfarin Sodium 5 Mg Tablet, 5 MG PO SuMoWeFrSa, (Reported) Warfarin Sodium 5 Mg Tablet, 2.5 MG PO TuTh, (Reported) TAKES 1/2 OF A (5 MG) TABLET Patient Home Medication List Home Medication List Reviewed: Yes Physical Exam-Cardiology Physical Exam Vital Signs/I&O 09/14/17 09/14/17 09/14/17 09/14/17 12:00 16:00 17:08 17:30 Temp 98.4 97.7 98.9 99.1 Pulse 67 69 77 71 Resp 20 18 16 16 B/P (MAP) 142/61 (88) 134/64 (87) 135/63 155/69 Pulse Ox 97 94 95 95 O2 Delivery Room Air Room Air Room Air Room Air 09/14/17 09/14/17 19:30 20:00 Temp 98.1 98.1 Pulse 61 61 Resp 18 18 B/P (MAP) 128/55 128/55 (79) Pulse Ox 96 96 O2 Delivery Room Air Room Air 09/14/17 00:00 Intake Total 200 ml Output Total 2100 ml Balance -1900 ml Capillary Refill : Constitutional: appears stated age, AAO x 3; No apparent distress; well- developed, well-nourished HEENT: PERRL; No normal ENT inspection, No TMs normal, No pharynx normal, No scleral icterus (R), No scleral icterus (L), No pale conjunctivae (R), No pale conjunctivae (L), No photophobia, No TM abnormal (R), No TM abnormal (L), No pharyngeal erythema, No tonsillar exudate, No other, No discharge, No EOMI; hearing is well preserved; No hard of hearing; oral hygience is good; No ulceration, No xanthelasmas are seen Neck: No non-tender, No full range of motion, No supple, No normal inspection, No carotid bruit, No limited range of motion, No lymphadenopathy (R), No lymphadenopathy (L), No tender lateral, No tender midline, No thyromegaly, No other; carotid pulses are 2 + bilaterally; No with good upstrokes Respiratory: chest is bilaterally symmetric, lungs clear to auscultation Cardiovascular: regular rate-rhythm; No irregularly irregular, No extra beats, No parasternal heave is noted, No JVD, No edema, No bradycardia, No tachycardia , No point of maximal impulse, No cardiac thrills are palpable; S1 and S2; No gallop/S3, No gallop/S4, No diastolic murmur, No systolic murmur, No friction rub, No click, No other Gastrointestinal: No tender, No soft, No round, No distended, No pulsatile mass , No organomegaly, No guarding, No rebound, No tenderness, No hernia, No mass, No audible bowel sounds, No abnormal bowel sounds, No abdominal bruits, No spleenomegaly, No other Rectal: deferred Extremities: No normal range of motion, No non-tender, No normal inspection, No pedal edema, No calf tenderness, No normal capillary refill, No pelvis stable , No calf tenderness, No inflammation, No pedal edema, No slow capillary refill , No swelling, No other, No abrasion, No clubbing, No cyanosis, No ecchymosis, No laceration, No no lower extremity edema bilateral, No significant edema, No tenderness, No wound Neurologic/Psychiatric: no motor/sensory deficits, alert, normal mood/affect, oriented x 3, power is 5/5 both on sides Skin: No normal color, No warm/dry, No cyanosis, No cool, No diaphoresis, No damp, No ecchymosis, No jaundice, No mottled, No pallor, No rash, No tattoos/ piercings, No ulcerations, No rash on exposed areas, No ulcerations on exposed areas, No other Data Review Labs Laboratory Tests 09/13/17 22:54: Hemoglobin 7.9L, Hematocrit 23L 09/14/17 05:38: Hemoglobin 8.5L, Hematocrit 26L, White Blood Count 7.1, Red Blood Count 3.10L, Mean Corpuscular Volume 83, Mean Corpuscular Hemoglobin 27, Mean Corpuscular Hemoglobin Concent 33, Red Cell Distribution Width 18.7H, Platelet Count 357, Mean Platelet Volume 11.5H, Neutrophils (%) (Auto) 69, Lymphocytes (%) (Auto) 16 , Monocytes (%) (Auto) 9, Eosinophils (%) (Auto) 5, Basophils (%) (Auto) 0, Neutrophils # (Auto) 4.9, Lymphocytes # (Auto) 1.1, Monocytes # (Auto) 0.7, Eosinophils # (Auto) 0.4H, Basophils # (Auto) 0.0, Sodium Level 142, Potassium Level 3.9, Chloride Level 109H, Carbon Dioxide Level 24, Anion Gap 9, Blood Urea Nitrogen 54H, Creatinine 2.49H, Estimat Glomerular Filtration Rate 25, BUN/ Creatinine Ratio 22, Glucose Level 89, Calcium Level 8.6, Total Bilirubin 1.4H, Aspartate Amino Transf (AST/SGOT) 28, Alanine Aminotransferase (ALT/SGPT) 15, Alkaline Phosphatase 38L, Total Protein 7.0, Albumin 3.6 09/14/17 13:43: Hemoglobin 8.1L, Hematocrit 25L 09/14/17 16:49: Lab Scanned Report Transfusion Reaction Form ECG Impression ECG Initial ECG Rhythm: Normal Sinus A/P-Cardiology Assessment/Admission Diagnosis Gross hematuria, Anemia, Bladder mass, Right lung mass, Atrial fibrillation, CAD, status post CABG, Carotid arterial disease, Active smoking, DESI, Preoperative cardiovascular risk assessment Plan Gross hematuria, could be secondary to the bladder mass. Will likely require bladder surgery with Dr. Brooke. Anemia, improvement in hemoglobin after transfusion. Bladder mass, likely cause of hematuria. See above. Right lung mass, unclear etiology. Dr. Ramirez following. Atrial fibrillation, on warfarin with subtherapeutic INR. INR 1.7. Can hold warfarin 3 days before the surgery and start once okay with surgery. CAD, status post CABG, no active issues. Can hold aspirin before surgery and to restart when okay with surgery. Carotid arterial disease, stable area did no active issues. Active smoking, smoking cessation is recommended. DESI, likely secondary to post renal obstruction. Intrinsic renal disease cannot be ruled out. Nephrology referral as outpatient. Preoperative cardiovascular risk assessment: Patient denies any active cardiac symptoms. Above average functional capacity. We will recommend echocardiogram. Patient will be considered at moderate risk for major adverse perioperative cardiac events undergoing an intermediate risk noncardiac surgery. Anticoagulation management as above. Will require hemoglobin and hematocrit over 10 and 30 respectively. Complicated medical issues as above. Thank you for your consultation. Please call me if you have any questions. Liban Brandon MD, FACP, FACC, FSCAI, FHRS, CCDS Interventional Cardiology Cardiac Electrophysiology Vascular Medicine and Endovascular Interventions Clinical Quality Measures DVT/VTE Risk/Contraindication: Risk Factor Score Per Nursin RFS Level Per Nursing on Admit: 4+=Very High Charles BRANDON MD September 14, 2017 13:25
[2017-09-14 13:49] LABS: HEMOGLOBIN 8.1 G/DL (13.3-17.7)
[2017-09-14] MEDS: TAMSULOSIN 0.4 MG (FLOMAX) CAP PO SCH (18:08)
[2017-09-14] MEDS: MELATONIN 3 MG TABLET PO SCH (20:28)
[2017-09-14] MEDS: ALPRAZolam 0.5 MG (XANAX) TAB PO SCH (20:28)
[2017-09-15] VITALS: BP 117/70
--- NOTE | 2017-09-15 02:41 | CONSULTATION REPORT ---
DATE OF SERVICE: 09/14/2017 Patient is admitted to room # 406. REFERRING AND PRIMARY PHYSICIAN: Verna Ferro MD. IMPRESSION: 1. A 77-year-old male admitted with hematuria. 2. CT scan showing a thickening of the bladder at the trigone area with left hydroureteronephrosis. 3. Right upper lobe lung mass of undetermined etiology. 4. History of significant exposure to Agent Cotton as well as longstanding tobacco use. 5. Coronary artery disease as well as carotid artery disease and paroxysmal atrial fibrillation, on chronic anticoagulation with warfarin and aspirin. RECOMMENDATIONS: 1. Agree with urology consultation and cystoscopy with biopsy of the bladder mass. Stent left ureter if possible because of the left hydroureteronephrosis. 2. Scheduled the patient for a PET CT scan next Wednesday on an outpatient basis to evaluate the right lung nodule. 3. Once the pathology report and the PET scan results are available, I will see the patient back and discuss about diagnosis and other options. 4. We will follow the patient with you. HISTORY OF PRESENT ILLNESS: The patient is a 77-year-old male with the history of hematuria for the last one to two weeks. He had difficulty passing urine this past weekend and presented to the emergency room, but because of the long wait, decided to go home. He was evaluated by Dr. Ferro yesterday and admitted to the hospital for further evaluation and management. Admission CT scan of the chest, abdomen and pelvis showed a right upper lobe pulmonary mass as well as bladder wall thickening near the trigone with a left hydroureteronephrosis. The patient is on chronic anticoagulation with warfarin and aspirin and the warfarin was stopped approximately a week ago. He was continuing on the aspirin until Wednesday. Today, he indicated that the lower abdominal pain is better. The 3-way Ramirez catheter with continuous irrigation is continuing and he is draining pink with occasional small clots. He denied any other areas of bony aches or pains. No headaches or visual changes. PAST MEDICAL HISTORY: Significant for coronary artery disease requiring a 3-vessel CABG. He has peripheral arterial disease with carotid artery disease requiring replacement with that graft. He has history of paroxysmal atrial fibrillation and has been on anticoagulation with warfarin for several years. He also has history of TURBT in the past and appendectomy approximately three years ago for a ruptured appendix. He gives history of hiatal hernia. He has had multiple accidents and fractures requiring surgical correction, history of peripheral neuropathy involving both lower extremities. SOCIAL HISTORY: The patient is and lives in [facility]. 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 He has smoked cigars since the age of 20 on a regular basis until a few years ago. Now, he smokes an occasional cigar. He has 5 children, 2 daughters and 3 sons. Both his daughters live close by. He has no contact with his sons. Denied any history of recreational drug use and no significant alcohol use. 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 FAMILY HISTORY: Significant for his sister who was diagnosed with breast cancer while in her 40s. His mother was diagnosed with an abdominal malignancy while in her 60s. Maternal grandmother had an unknown malignancy while in her 50s. No other malignancies in the family that the patient knows of. PHYSICAL EXAMINATION: GENERAL: Today showed an elderly male, awake and oriented, answering questions appropriately, in no acute distress. VITAL SIGNS: Temperature was 99.1, pulse rate of 71, respirations 16, blood pressure 155/69 and pulse oximetry showed 95% oxygen saturation on room air. HEENT: Normocephalic, extraocular muscles intact, conjunctivae slightly pale and oral mucosa moist. NECK: Supple, with no JVD. Healed scars from bilateral carotid endarterectomies noted. No cervical, supraclavicular or axillary lymphadenopathy palpable. CHEST: Symmetrical. Lungs fairly are clear to auscultation without wheezes or rales. CARDIOVASCULAR: Regular rate and rhythm. Grade II systolic murmur was heard. ABDOMEN: Soft, obese and nontender with no hepatosplenomegaly or other masses palpable. A 3-way Ramirez draining pink. EXTREMITIES: Showed no edema. NEUROLOGIC: Showed no focal motor deficits. LABORATORY DATA: CBC done today showed white count of 7.1, hemoglobin 8.5, platelet count 357,000 with neutrophil count 4.9 and lymphocyte count 1.1. CBC done yesterday at the time of admission showed WBC 6.1, hemoglobin 6.7, platelet count 377,000 with neutrophil count 4.1. Chemistry panel today showed relatively normal electrolytes. BUN was 54 and creatinine 2.49 with GFR of 25 mL per minute. Total bilirubin was 1.4 with the rest of the liver function studies within normal limits. IMAGING STUDIES: CT scan of the chest, abdomen and pelvis done on 09/13/[address] scan of the chest showed a right upper lobe lung mass measuring 2.3 x 1.8 cm with the neoplasm suspected. A PET CT scan was recommended. Background emphysematous changes and chronic lung disease with cardiomegaly. CT scan of the abdomen and pelvis showed left hydroureteronephrosis without evidence of an opaque stone. Soft tissue thickening of the bladder wall with left greater than the right at the level of the trigone may be the cause for obstruction. Cholelithiasis without acute cholecystitis. Noninflamed diverticulosis. Thank you for allowing me to participate in this patient's care. I will follow the patient with you and make appropriate recommendations. Job ID: [id number] DocumentID: [id number] Dictated Date: 09/14/2017 18:35:15 Project Safety Manager Date: 09/15/2017 02:40:51 Dictated By: LAVERNE SUNSHINE MD MTDD
[2017-09-15 04:00] VITALS: BP 126/66
[2017-09-15] MEDS: NS IV 1000 ML 1,000 ML IV SCH ×2 (06:01→17:00)
[2017-09-15] MEDS: PANTOPRAZOLE 40 MG (PROTONIX) TAB PO SCH (06:01)
[2017-09-15 06:09] LABS: BASOPHILS % (AUTO) 0 % (0-10); EOSINOPHILS # (AUTO) 0.4 10^3/uL (0.0-0.3); EOSINOPHILS % (AUTO) 6 % (0-10); HEMATOCRIT 26 % (40-54); HEMOGLOBIN 8.6 G/DL (13.3-17.7); LYMPHOCYTES # (AUTO) 1.1 X 10^3 (1.0-4.0); LYMPHOCYTES % (AUTO) 17 % (12-44); MEAN CORPUSCULAR HEMOGLOBIN 28 PG (25-34); MEAN CORPUSCULAR HGB CONC 33 G/DL (32-36); MEAN CORPUSCULAR VOLUME 83 FL (80-99); MEAN PLATELET VOLUME 11.4 FL (7.4-10.4); MONOCYTES # (AUTO) 0.6 X 10^3 (0.0-1.0); MONOCYTES % (AUTO) 10 % (0-12); NEUTROPHILS # (AUTO) 4.1 X 10^3 (1.8-7.8); NEUTROPHILS % (AUTO) 66 % (42-75); PLATELET COUNT 334 10^3/uL (130-400); RED BLOOD COUNT 3.11 10^6/uL (4.35-5.85); WHITE BLOOD COUNT 6.2 10^3/uL (4.3-11.0)
[2017-09-15 06:19] LABS: INR 1.9 (0.8-1.4); PROTHROMBIN TIME PATIENT 21.4 SEC (12.2-14.7)
[2017-09-15 06:37] LABS: ALBUMIN 3.3 GM/DL (3.2-4.5); BILIRUBIN,TOTAL 1.5 MG/DL (0.1-1.0); CALCIUM 8.2 MG/DL (8.5-10.1); CREATININE SERUM 1.95 MG/DL (0.60-1.30); POTASSIUM 3.7 MMOL/L (3.6-5.0); TOTAL PROTEIN 6.2 GM/DL (6.4-8.2)
[2017-09-15 08:00] VITALS: BP 154/56
[2017-09-15] MEDS: LACTOBACILLUS Acidoph/Bulgar (LACTINEX/FLORANEX) TAB PO SCH (08:12)
--- NOTE | 2017-09-15 08:53 | Progress Note ---
Subjective Date Seen by Provider: September 15, 2017 Time Seen by Provider: 08:50 Subjective/Events-last exam PT REPORTS THAT HE IS FEELING BETTER TODAY AFTER THE BLOOD TRANSFUSION. HE STATES THAT HE IS STILL HAVING A LOT OF BLOODY OUTPUT IN THE CATHETER. HE DENIES CHEST PAIN OR SHORTNESS OF BREATH Review of Systems General: No Chills; Fatigue, Malaise HEENT: No Head Aches, No Eye Pain Pulmonary: No Dyspnea, No Cough Cardiovascular: No: Chest Pain Gastrointestinal: No: Nausea Genitourinary: Other (HEMATURIA) Neurological: Weakness Objective Exam Last Set of Vital Signs Vital Signs Date Time Temp Pulse Resp B/P (MAP) Pulse Ox O2 Delivery O2 Flow Rate FiO2 09/15/17 04:00 99.2 62 16 126/66 (86) 96 Room Air Capillary Refill : I&O Intake and Output 09/15/17 00:00 Intake Total 3225 ml Output Total 2305 ml Balance 920 ml Intake Oral 1400 ml IV Total 1825 ml Output Urine Total 2305 ml Bladder Scan Volume Amount 615 ml General: Alert, Oriented X3, Cooperative HEENT: Atraumatic, PERRLA Neck: Supple Lungs: Clear to Auscultation Heart: Other (tachycardia, with ii/vi lacie) Abdomen: Normal Bowel Sounds, Other (ttp over dome of bladder on left and midline - protuberant abdomen) Extremities: No Clubbing Neuro: Normal Speech Psych/Mental Status: Mental Status NL, Mood NL Results Lab Laboratory Tests 09/14/17 13:43: Hemoglobin 8.1L, Hematocrit 25L 09/14/17 16:49: Lab Scanned Report Transfusion Reaction Form 09/15/17 05:28: Hemoglobin 8.6L, Hematocrit 26L, White Blood Count 6.2, Red Blood Count 3.11L, Mean Corpuscular Volume 83, Mean Corpuscular Hemoglobin 28, Mean Corpuscular Hemoglobin Concent 33, Red Cell Distribution Width 18.0H, Platelet Count 334, Mean Platelet Volume 11.4H, Neutrophils (%) (Auto) 66, Lymphocytes (%) (Auto) 17 , Monocytes (%) (Auto) 10, Eosinophils (%) (Auto) 6, Basophils (%) (Auto) 0, Neutrophils # (Auto) 4.1, Lymphocytes # (Auto) 1.1, Monocytes # (Auto) 0.6, Eosinophils # (Auto) 0.4H, Basophils # (Auto) 0.0, Prothrombin Time 21.4H, INR Comment 1.9H, Sodium Level 142, Potassium Level 3.7, Chloride Level 112H, Carbon Dioxide Level 21, Anion Gap 9, Blood Urea Nitrogen 39H, Creatinine 1.95H , Estimat Glomerular Filtration Rate 34, BUN/Creatinine Ratio 20, Glucose Level 85, Calcium Level 8.2L, Total Bilirubin 1.5H, Aspartate Amino Transf (AST/SGOT) 26, Alanine Aminotransferase (ALT/SGPT) 12, Alkaline Phosphatase 36L, Total Protein 6.2L, Albumin 3.3 Assessment/Plan Assessment/Plan Assess & Plan/Chief Complaint BLADDER MASS RIGHT SIDED LUNG MASS ABDOMINAL PAIN URINARY RETENTION ANEMIA ACUTE RENAL FAILURE HYDROURETERONEPHROSIS CHRONIC ANTICOAGULATION BLADDER MASS - WITH ACUTE RENAL FAILURE AND HYDROURETERONEPHROSIS - DEFER SURGICAL INTERVENTION TO DR. TALBERT - MONITOR URINE OUTPUT - PT WILL NEED CONTINUOUS IRRIGATION UNTIL CLEAR, THEN RESUME JUST BLACKBURN WITHOUT IRRIGATION. PT WILL HAVE TO BE OFF OF ASPIRIN X 1 WEEK AND COUMADIN X 3 DAYS PRIOR TO ANY PROCEDURE - DUE TO HIS BLEEDING AND ELEVATED INR HE HAS BEEN OFF OF COUMADIN FOR SEVERAL DAYS ANDOFF OF ASPIRIN SINCE 09/13/17 RIGHT SIDED LUNG MASS - DISCUSSED WITH ONCOLOGY - DR. SUNSHINE TO BE INVOLVED, THE POSITION OF THE MASS DOES NOT LOOK AMENABLE TO BIOPSY VIA CT SCAN. ABDOMINAL PAIN DUE TO URINARY RETENTION - CBI TO BE CONTINUED ANEMIA - IMPROVED AFTER BLOOD TRANSFUSION - WILL REPEAT H AND H SERIALLY CHRONIC ANTICOAGULATION AND HYPERTENSION - WITH CURRENT HYPOTENSION -HOLDING HOME MEDICATIONS AT THIS TIME - CONSULT TO DR. GONZALEZ - CARDIOLOGY. GI PROPHYLAXIS WILL BE WITH PEPCID. DVT PROPHYLAXIS WITH SCD'S ONLY AT THIS TIME DUE TO PT BLEEDING/ANEMIA Clinical Quality Measures DVT/VTE Risk/Contraindication: Risk Factor Score Per Nursin RFS Level Per Nursing on Admit: 4+=Very High CAREY CHOWDHURY MD September 15, 2017 08:52
[2017-09-15] MEDS ORDERED: methylPREDNISolone 40 MG/ML (Solu-MEDROL) VIAL IV NR (09:15)
--- NOTE | 2017-09-15 10:26 | Progress Note-Urology ---
Progress Note-Urology Progress Notes/Assess & Plan Progress/Assessment & Plan ON SLOW DRIP CBI, URINE TINGED, KEEP TILL CLEAR AND THEN WE WILL DC BLACKBURN. PLAN OR WEDNESDAY 8AM IF CLEARED BY DR BRISENO. NEED STAY OF ASA AND WARFARIN. NEED HB ABOVE 10. Final Diagnosis GROSS HEMATURIA, POSSIBLE BLADDER TUMOR. LANRE TALBERT MD September 15, 2017 10:26 am
[2017-09-15 12:35] VITALS: BP 130/64
[2017-09-15] MEDS: methylPREDNISolone 40 MG/ML (Solu-MEDROL) VIAL IV SCH ×3 (12:50→23:21)
--- NOTE | 2017-09-15 14:57 | Cardiology Progress Note ---
Cardiology SOAP Progress Note Subjective: No cardiac symptoms. Objective: I&O/Vital Signs 09/15/17 09/15/17 09/15/17 09/15/17 04:00 08:00 08:13 12:35 Temp 99.2 97.1 97.7 Pulse 62 69 69 Resp 16 20 18 B/P (MAP) 126/66 (86) 154/56 (88) 130/64 (86) Pulse Ox 96 94 97 O2 Delivery Room Air Room Air Room Air Room Air 09/14/17 23:59 Intake Total 2100 ml Output Total 1505 ml Balance 595 ml Weight (Pounds): 178 Weight (Ounces): 7.0 Weight (Calculated Kilograms): 80.715629 Constitutional: appears stated age, AAO x 3; No apparent distress; well- developed, well-nourished Respiratory: chest is bilaterally symmetric, lungs clear to auscultation Cardiovascular: regular rate-rhythm; No irregularly irregular, No extra beats, No parasternal heave is noted, No JVD, No edema, No bradycardia, No tachycardia , No point of maximal impulse, No cardiac thrills are palpable; S1 and S2; No gallop/S3, No gallop/S4, No diastolic murmur, No systolic murmur, No friction rub, No click, No other Gastrointestional: No tender, No soft, No round, No distended, No pulsatile mass, No organomegaly, No guarding, No rebound, No tenderness, No hernia, No mass, No audible bowel sounds, No abnormal bowel sounds, No abdominal bruits, No spleenomegaly, No other Extremities: No normal range of motion, No non-tender, No normal inspection, No pedal edema, No calf tenderness, No normal capillary refill, No pelvis stable , No calf tenderness, No inflammation, No pedal edema, No slow capillary refill , No swelling, No other, No abrasion, No clubbing, No cyanosis, No ecchymosis, No laceration, No no lower extremity edema bilateral, No significant edema, No tenderness, No wound Neurologic/Psychiatric: no motor/sensory deficits, alert, normal mood/affect, oriented x 3, power is 5/5 both on sides Skin: No normal color, No warm/dry, No cyanosis, No cool, No diaphoresis, No damp, No ecchymosis, No jaundice, No mottled, No pallor, No rash, No tattoos/ piercings, No ulcerations, No rash on exposed areas, No ulcerations on exposed areas, No other Results/Procedures: Labs Laboratory Tests 09/14/17 16:49: Lab Scanned Report Transfusion Reaction Form 09/15/17 05:28: White Blood Count 6.2, Red Blood Count 3.11L, Hemoglobin 8.6L, Hematocrit 26L, Mean Corpuscular Volume 83, Mean Corpuscular Hemoglobin 28, Mean Corpuscular Hemoglobin Concent 33, Red Cell Distribution Width 18.0H, Platelet Count 334, Mean Platelet Volume 11.4H, Neutrophils (%) (Auto) 66, Lymphocytes (%) (Auto) 17 , Monocytes (%) (Auto) 10, Eosinophils (%) (Auto) 6, Basophils (%) (Auto) 0, Neutrophils # (Auto) 4.1, Lymphocytes # (Auto) 1.1, Monocytes # (Auto) 0.6, Eosinophils # (Auto) 0.4H, Basophils # (Auto) 0.0, Prothrombin Time 21.4H, INR Comment 1.9H, Sodium Level 142, Potassium Level 3.7, Chloride Level 112H, Carbon Dioxide Level 21, Anion Gap 9, Blood Urea Nitrogen 39H, Creatinine 1.95H , Estimat Glomerular Filtration Rate 34, BUN/Creatinine Ratio 20, Glucose Level 85, Calcium Level 8.2L, Total Bilirubin 1.5H, Aspartate Amino Transf (AST/SGOT) 26, Alanine Aminotransferase (ALT/SGPT) 12, Alkaline Phosphatase 36L, Total Protein 6.2L, Albumin 3.3 A/P: Assessment/Dx: Gross hematuria, Anemia, Bladder mass, Right lung mass, Atrial fibrillation, CAD, status post CABG, Carotid arterial disease, Active smoking, DESI, Preoperative cardiovascular risk assessment Plan: Gross hematuria, could be secondary to the bladder mass. Will likely require bladder surgery with Dr. Brooke. Anemia, improvement in hemoglobin after transfusion. Bladder mass, likely cause of hematuria. See above. Right lung mass, unclear etiology. Dr. Ramirez following. Atrial fibrillation, on warfarin with subtherapeutic INR. INR 1.7. Can hold warfarin 3 days before the surgery and start once okay with surgery. CAD, status post CABG, no active issues. Can hold aspirin before surgery and to restart when okay with surgery. Carotid arterial disease, stable area did no active issues. Active smoking, smoking cessation is recommended. DESI, likely secondary to post renal obstruction. Intrinsic renal disease cannot be ruled out. Nephrology referral as outpatient. Preoperative cardiovascular risk assessment: Patient denies any active cardiac symptoms. Above average functional capacity. We will recommend echocardiogram. Patient will be considered at moderate risk for major adverse perioperative cardiac events undergoing an intermediate risk noncardiac surgery. Anticoagulation management as above. Will require hemoglobin and hematocrit over 10 and 30 respectively. Complicated medical issues as above. Thank you for your consultation. Please call me if you have any questions. Liban Gonzalez MD, FACP, FACC, FSCAI, FHRS, CCDS Interventional Cardiology Cardiac Electrophysiology Vascular Medicine and Endovascular Interventions Charles GONZALEZ MD September 15, 2017 2:57 pm
[2017-09-15 16:00] VITALS: BP 131/69
[2017-09-15] MEDS: TAMSULOSIN 0.4 MG (FLOMAX) CAP PO SCH (17:00)
[2017-09-15 20:00] VITALS: BP 142/62
[2017-09-15] MEDS: ALPRAZolam 0.5 MG (XANAX) TAB PO SCH (20:30)
[2017-09-15] MEDS: MELATONIN 3 MG TABLET PO SCH (20:30)
[2017-09-16] VITALS (7 sets, daily range): BP systolic 126–151; BP diastolic 60–72
[2017-09-16] MEDS: PANTOPRAZOLE 40 MG (PROTONIX) TAB PO SCH (05:21)
[2017-09-16] MEDS: methylPREDNISolone 40 MG/ML (Solu-MEDROL) VIAL IV SCH ×4 (05:21→23:55)
[2017-09-16] MEDS: NS IV 1000 ML 1,000 ML IV SCH ×2 (05:24→20:32)
[2017-09-16 05:54] LABS: BASOPHILS % (AUTO) 0 % (0-10); EOSINOPHILS % (AUTO) 0 % (0-10); HEMATOCRIT 25 % (40-54); HEMOGLOBIN 8.4 G/DL (13.3-17.7); LYMPHOCYTES # (AUTO) 0.5 X 10^3 (1.0-4.0); LYMPHOCYTES % (AUTO) 10 % (12-44); MEAN CORPUSCULAR HEMOGLOBIN 28 PG (25-34); MEAN CORPUSCULAR HGB CONC 33 G/DL (32-36); MEAN CORPUSCULAR VOLUME 84 FL (80-99); MEAN PLATELET VOLUME 10.9 FL (7.4-10.4); MONOCYTES # (AUTO) 0.2 X 10^3 (0.0-1.0); MONOCYTES % (AUTO) 4 % (0-12); NEUTROPHILS # (AUTO) 4.2 X 10^3 (1.8-7.8); NEUTROPHILS % (AUTO) 86 % (42-75); PLATELET COUNT 321 10^3/uL (130-400); RED BLOOD COUNT 3.03 10^6/uL (4.35-5.85); RED CELL DISTRIBUTION WIDTH 18.3 % (10.0-14.5); WHITE BLOOD COUNT 4.8 10^3/uL (4.3-11.0)
[2017-09-16 06:20] LABS: ALBUMIN 3.2 GM/DL (3.2-4.5); CALCIUM 8.2 MG/DL (8.5-10.1); CREATININE SERUM 1.87 MG/DL (0.60-1.30); POTASSIUM 4.2 MMOL/L (3.6-5.0); TOTAL PROTEIN 6.1 GM/DL (6.4-8.2)
[2017-09-16 06:35] LABS: INR 1.8 (0.8-1.4); PROTHROMBIN TIME PATIENT 20.6 SEC (12.2-14.7)
--- NOTE | 2017-09-16 08:28 | Progress Note ---
Subjective Date Seen by Provider: September 16, 2017 Time Seen by Provider: 08:45 Subjective/Events-last exam PT REPORTS THAT HE IS FEELING BETTER TODAY- HE HAD SOME THERAPY AND HAS BEEN OTHERWISE DOING WELL - HE DOES NOTE NO BOWEL MOVEMENT FOR SEVERAL DAYS Review of Systems General: Fatigue HEENT: No Head Aches Pulmonary: No Dyspnea, No Cough Cardiovascular: No: Chest Pain Gastrointestinal: Abdominal Pain, Constipation; No: Nausea Genitourinary: Hematuria (BLACKBURN IN PLACE WITH CBI) Neurological: Weakness Objective Exam Last Set of Vital Signs Vital Signs Date Time Temp Pulse Resp B/P (MAP) Pulse Ox O2 Delivery O2 Flow Rate FiO2 09/16/17 05:16 98.2 70 17 135/69 (91) 96 Room Air Capillary Refill : I&O Intake and Output 09/16/17 00:00 Intake Total 2950 ml Output Total 3325 ml Balance -375 ml Intake Oral 2100 ml IV Total 850 ml Output Urine Total 3325 ml General: Alert, Oriented X3, Cooperative HEENT: Atraumatic, PERRLA Neck: Supple Lungs: Clear to Auscultation Heart: Other (tachycardia, with ii/vi lacie) Abdomen: Normal Bowel Sounds, Other (ttp over dome of bladder on left and midline - protuberant abdomen) Extremities: No Clubbing Neuro: Normal Speech Psych/Mental Status: Mental Status NL, Mood NL Results Lab Laboratory Tests 09/15/17 16:58: Lab Scanned Report Transfusion Reaction Form 09/16/17 05:23: White Blood Count 4.8, Red Blood Count 3.03L, Hemoglobin 8.4L, Hematocrit 25L, Mean Corpuscular Volume 84, Mean Corpuscular Hemoglobin 28, Mean Corpuscular Hemoglobin Concent 33, Red Cell Distribution Width 18.3H, Platelet Count 321, Mean Platelet Volume 10.9H, Neutrophils (%) (Auto) 86H, Lymphocytes (%) (Auto) 10L, Monocytes (%) (Auto) 4, Eosinophils (%) (Auto) 0, Basophils (%) (Auto) 0, Neutrophils # (Auto) 4.2, Lymphocytes # (Auto) 0.5L, Monocytes # (Auto) 0.2, Eosinophils # (Auto) 0.0, Basophils # (Auto) 0.0, Prothrombin Time 20.6H, INR Comment 1.8H, Sodium Level 142, Potassium Level 4.2, Chloride Level 114H, Carbon Dioxide Level 19L, Anion Gap 9, Blood Urea Nitrogen 37H, Creatinine 1.87H , Estimat Glomerular Filtration Rate 35, BUN/Creatinine Ratio 20, Glucose Level 134H, Calcium Level 8.2L, Total Bilirubin 1.0, Aspartate Amino Transf (AST/SGOT ) 23, Alanine Aminotransferase (ALT/SGPT) 16, Alkaline Phosphatase 33L, Total Protein 6.1L, Albumin 3.2 Assessment/Plan Assessment/Plan Assess & Plan/Chief Complaint BLADDER MASS RIGHT SIDED LUNG MASS ABDOMINAL PAIN URINARY RETENTION ANEMIA ACUTE RENAL FAILURE HYDROURETERONEPHROSIS CHRONIC ANTICOAGULATION BLADDER MASS - WITH ACUTE RENAL FAILURE AND HYDROURETERONEPHROSIS - DEFER SURGICAL INTERVENTION TO DR. TALBERT - MONITOR URINE OUTPUT - PT WILL NEED CONTINUOUS IRRIGATION UNTIL CLEAR, THEN RESUME JUST BLACKBURN WITHOUT IRRIGATION. PT WILL HAVE TO BE OFF OF ASPIRIN X 1 WEEK AND COUMADIN X 3 DAYS PRIOR TO ANY PROCEDURE - DUE TO HIS BLEEDING AND ELEVATED INR HE HAS BEEN OFF OF COUMADIN FOR SEVERAL DAYS ANDOFF OF ASPIRIN SINCE 09/13/17 RIGHT SIDED LUNG MASS - DISCUSSED WITH ONCOLOGY - DR. SUNSHINE TO BE INVOLVED, THE POSITION OF THE MASS DOES NOT LOOK AMENABLE TO BIOPSY VIA CT SCAN. ABDOMINAL PAIN DUE TO URINARY RETENTION - CBI TO BE CONTINUED ANEMIA -DROP IN HEMOGLOBIN -BLOOD TRANSFUSION TODAY - WILL REPEAT H AND H SERIALLY CHRONIC ANTICOAGULATION AND HYPERTENSION - WITH CURRENT HYPOTENSION -HOLDING HOME MEDICATIONS AT THIS TIME - CONSULT TO DR. GONZALEZ - CARDIOLOGY. GI PROPHYLAXIS WILL BE WITH PEPCID. DVT PROPHYLAXIS WITH SCD'S ONLY AT THIS TIME DUE TO PT BLEEDING/ANEMIA Clinical Quality Measures DVT/VTE Risk/Contraindication: Risk Factor Score Per Nursin RFS Level Per Nursing on Admit: 4+=Very High CAREY CHOWDHURY MD September 16, 2017 08:28
[2017-09-16] MEDS: LACTOBACILLUS Acidoph/Bulgar (LACTINEX/FLORANEX) TAB PO SCH (08:52)
[2017-09-16] MEDS ORDERED: BISACODYL 10 MG SUPP (DULCOLAX) PR NR (09:15)
--- NOTE | 2017-09-16 17:54 | Cardiology Progress Note ---
Cardiology SOAP Progress Note Subjective: No cardiac complaints Objective: I&O/Vital Signs 09/16/17 09/16/17 09/16/17 09/16/17 08:10 08:43 12:26 16:41 Temp 97.2 97.2 97.5 Pulse 74 70 79 Resp 22 20 20 B/P (MAP) 151/72 (98) 128/64 (85) 142/67 (92) Pulse Ox 95 97 97 O2 Delivery Room Air Room Air Room Air Room Air 09/16/17 00:00 Intake Total 2550 ml Output Total 1625 ml Balance 925 ml Weight (Pounds): 189 Weight (Ounces): 7.0 Weight (Calculated Kilograms): 85.816491 Constitutional: appears stated age, AAO x 3; No apparent distress; well- developed, well-nourished Respiratory: chest is bilaterally symmetric, lungs clear to auscultation Cardiovascular: regular rate-rhythm; No irregularly irregular, No extra beats, No parasternal heave is noted, No JVD, No edema, No bradycardia, No tachycardia , No point of maximal impulse, No cardiac thrills are palpable; S1 and S2; No gallop/S3, No gallop/S4, No diastolic murmur, No systolic murmur, No friction rub, No click, No other Gastrointestional: No tender, No soft, No round, No distended, No pulsatile mass, No organomegaly, No guarding, No rebound, No tenderness, No hernia, No mass, No audible bowel sounds, No abnormal bowel sounds, No abdominal bruits, No spleenomegaly, No other Extremities: No normal range of motion, No non-tender, No normal inspection, No pedal edema, No calf tenderness, No normal capillary refill, No pelvis stable , No calf tenderness, No inflammation, No pedal edema, No slow capillary refill , No swelling, No other, No abrasion, No clubbing, No cyanosis, No ecchymosis, No laceration, No no lower extremity edema bilateral, No significant edema, No tenderness, No wound Neurologic/Psychiatric: no motor/sensory deficits, alert, normal mood/affect, oriented x 3, power is 5/5 both on sides Skin: No normal color, No warm/dry, No cyanosis, No cool, No diaphoresis, No damp, No ecchymosis, No jaundice, No mottled, No pallor, No rash, No tattoos/ piercings, No ulcerations, No rash on exposed areas, No ulcerations on exposed areas, No other Results/Procedures: Labs Laboratory Tests 09/16/17 05:23: White Blood Count 4.8, Red Blood Count 3.03L, Hemoglobin 8.4L, Hematocrit 25L, Mean Corpuscular Volume 84, Mean Corpuscular Hemoglobin 28, Mean Corpuscular Hemoglobin Concent 33, Red Cell Distribution Width 18.3H, Platelet Count 321, Mean Platelet Volume 10.9H, Neutrophils (%) (Auto) 86H, Lymphocytes (%) (Auto) 10L, Monocytes (%) (Auto) 4, Eosinophils (%) (Auto) 0, Basophils (%) (Auto) 0, Neutrophils # (Auto) 4.2, Lymphocytes # (Auto) 0.5L, Monocytes # (Auto) 0.2, Eosinophils # (Auto) 0.0, Basophils # (Auto) 0.0, Prothrombin Time 20.6H, INR Comment 1.8H, Sodium Level 142, Potassium Level 4.2, Chloride Level 114H, Carbon Dioxide Level 19L, Anion Gap 9, Blood Urea Nitrogen 37H, Creatinine 1.87H , Estimat Glomerular Filtration Rate 35, BUN/Creatinine Ratio 20, Glucose Level 134H, Calcium Level 8.2L, Total Bilirubin 1.0, Aspartate Amino Transf (AST/SGOT ) 23, Alanine Aminotransferase (ALT/SGPT) 16, Alkaline Phosphatase 33L, Total Protein 6.1L, Albumin 3.2 09/16/17 13:40: Stool Occult Blood Immunoassay NEGATIVE A/P: Assessment/Dx: Gross hematuria, Anemia, Bladder mass, Right lung mass, Atrial fibrillation, CAD, status post CABG, Carotid arterial disease, Active smoking, DESI, Preoperative cardiovascular risk assessment Plan: Gross hematuria, could be secondary to the bladder mass. Will likely require bladder surgery with Dr. Brooke. Anemia, improvement in hemoglobin after transfusion. Bladder mass, likely cause of hematuria. See above. Right lung mass, unclear etiology. Dr. Ramirez following. Atrial fibrillation, on warfarin with subtherapeutic INR. INR 1.7. Can hold warfarin 3 days before the surgery and start once okay with surgery. CAD, status post CABG, no active issues. Can hold aspirin before surgery and to restart when okay with surgery. Carotid arterial disease, stable area did no active issues. Active smoking, smoking cessation is recommended. DESI, likely secondary to post renal obstruction. Intrinsic renal disease cannot be ruled out. Nephrology referral as outpatient. Preoperative cardiovascular risk assessment: Patient denies any active cardiac symptoms. Above average functional capacity. We will recommend echocardiogram. Patient will be considered at moderate risk for major adverse perioperative cardiac events undergoing an intermediate risk noncardiac surgery. Anticoagulation management as above. Will require hemoglobin and hematocrit over 10 and 30 respectively. Complicated medical issues as above. Thank you for your consultation. Please call me if you have any questions. Liban Gonzalez MD, FACP, FACC, FSCAI, FHRS, CCDS Interventional Cardiology Cardiac Electrophysiology Vascular Medicine and Endovascular Interventions Charles GONZALEZ MD September 16, 2017 17:54
[2017-09-16] MEDS: TAMSULOSIN 0.4 MG (FLOMAX) CAP PO SCH (19:00)
[2017-09-16] MEDS: MELATONIN 3 MG TABLET PO SCH (20:32)
[2017-09-16] MEDS: POLYETHYLENE GLYCOL 17 GM (MIRALAX) PACK PO SCH (20:32)
[2017-09-16] MEDS: ALPRAZolam 0.5 MG (XANAX) TAB PO SCH (20:32)
[2017-09-17] VITALS (10 sets, daily range): BP systolic 130–151; BP diastolic 67–74
[2017-09-17] MEDS: PANTOPRAZOLE 40 MG (PROTONIX) TAB PO SCH (05:13)
[2017-09-17] MEDS: methylPREDNISolone 40 MG/ML (Solu-MEDROL) VIAL IV SCH (05:13)
[2017-09-17 05:56] LABS: BASOPHILS % (AUTO) 0 % (0-10); EOSINOPHILS % (AUTO) 0 % (0-10); HEMATOCRIT 25 % (40-54); LYMPHOCYTES # (AUTO) 0.5 X 10^3 (1.0-4.0); LYMPHOCYTES % (AUTO) 5 % (12-44); MEAN CORPUSCULAR HEMOGLOBIN 27 PG (25-34); MEAN CORPUSCULAR HGB CONC 32 G/DL (32-36); MEAN CORPUSCULAR VOLUME 85 FL (80-99); MEAN PLATELET VOLUME 11.7 FL (7.4-10.4); MONOCYTES # (AUTO) 0.4 X 10^3 (0.0-1.0); MONOCYTES % (AUTO) 4 % (0-12); NEUTROPHILS # (AUTO) 8.5 X 10^3 (1.8-7.8); NEUTROPHILS % (AUTO) 91 % (42-75); PLATELET COUNT 333 10^3/uL (130-400); RED BLOOD COUNT 2.92 10^6/uL (4.35-5.85); RED CELL DISTRIBUTION WIDTH 18.5 % (10.0-14.5); WHITE BLOOD COUNT 9.4 10^3/uL (4.3-11.0)
[2017-09-17 06:15] LABS: ALBUMIN 3.3 GM/DL (3.2-4.5); BILIRUBIN,TOTAL 0.7 MG/DL (0.1-1.0); CALCIUM 8.2 MG/DL (8.5-10.1); CREATININE SERUM 1.69 MG/DL (0.60-1.30); POTASSIUM 4.3 MMOL/L (3.6-5.0); TOTAL PROTEIN 6.2 GM/DL (6.4-8.2)
[2017-09-17 06:19] LABS: BAND NEUTROPHILS 0 %; BASOPHILS % (MANUAL) 0 %; EOSINOPHILS % (MANUAL) 0 %; LYMPHOCYTES % (MANUAL) 3 %; MONOCYTES % (MANUAL) 2 %; NEUTROPHILS % (MANUAL) 95 %
[2017-09-17 06:20] LABS: ANISOCYTOSIS SLIGHT; CRENATED RBC SLIGHT; ELLIPT/OVALOCYTES SLIGHT; HYPOCHROMASIA MODERATE; POIKILOCYTOSIS SLIGHT; POLYCHROMASIA SLIGHT; TARGET CELLS SLIGHT
[2017-09-17] MEDS ORDERED: diphenhydrAMINE 50 MG/ML INJ (BENADRYL) IVP PRN (06:45)
[2017-09-17] MEDS ORDERED: NS IV 500 ML 500 ML IV SCH (06:45)
[2017-09-17 06:47] LABS: INR 1.7 (0.8-1.4); PROTHROMBIN TIME PATIENT 19.6 SEC (12.2-14.7)
--- NOTE | 2017-09-17 06:47 | Progress Note ---
Subjective Date Seen by Provider: September 17, 2017 Time Seen by Provider: 06:47 Subjective/Events-last exam PT REPORTS THAT HE IS FEELING MORE ENERGETIC - HE HAD BOWEL MOVEMENTS YESTERDAY. Review of Systems General: No Chills; Fatigue, Malaise Pulmonary: No Dyspnea, No Cough Cardiovascular: No: Chest Pain, Palpitations Gastrointestinal: Abdominal Pain Genitourinary: Hematuria Neurological: Weakness Objective Exam Last Set of Vital Signs Vital Signs Date Time Temp Pulse Resp B/P (MAP) Pulse Ox O2 Delivery O2 Flow Rate FiO2 09/17/17 04:34 97.8 76 17 133/67 (89) 97 Room Air Capillary Refill : I&O Intake and Output 09/17/17 00:00 Intake Total 2670 ml Output Total 4000 ml Balance -1330 ml Intake Oral 2670 ml Output Urine Total 4000 ml General: Alert, Oriented X3, Cooperative HEENT: Atraumatic, PERRLA Neck: Supple Lungs: Clear to Auscultation Heart: Other (tachycardia, with ii/vi lacie) Abdomen: Normal Bowel Sounds, Other (ttp over dome of bladder on left and midline - protuberant abdomen) Extremities: No Clubbing Neuro: Normal Speech Psych/Mental Status: Mental Status NL, Mood NL Results Lab Laboratory Tests 09/16/17 13:40: Stool Occult Blood Immunoassay NEGATIVE 09/17/17 05:05: White Blood Count 9.4, Red Blood Count 2.92L, Hemoglobin 8.0L, Hematocrit 25L, Mean Corpuscular Volume 85, Mean Corpuscular Hemoglobin 27, Mean Corpuscular Hemoglobin Concent 32, Red Cell Distribution Width 18.5H, Platelet Count 333, Mean Platelet Volume 11.7H, Neutrophils (%) (Auto) 91H, Lymphocytes (%) (Auto) 5L, Monocytes (%) (Auto) 4, Eosinophils (%) (Auto) 0, Basophils (%) (Auto) 0, Neutrophils # (Auto) 8.5H, Lymphocytes # (Auto) 0.5L, Monocytes # (Auto) 0.4, Eosinophils # (Auto) 0.0, Basophils # (Auto) 0.0, Neutrophils % (Manual) 95, Lymphocytes % (Manual) 3, Monocytes % (Manual) 2, Eosinophils % (Manual) 0, Basophils % (Manual) 0, Band Neutrophils 0, Polychromasia SLIGHT, Hypochromasia MODERATE, Poikilocytosis SLIGHT, Anisocytosis SLIGHT, Target Cells SLIGHT, Crenated Cell SLIGHT, Elliptocytes SLIGHT, Sodium Level 143, Potassium Level 4.3 , Chloride Level 115H, Carbon Dioxide Level 18L, Anion Gap 10, Blood Urea Nitrogen 39H, Creatinine 1.69H, Estimat Glomerular Filtration Rate 40, BUN/ Creatinine Ratio 23, Glucose Level 154H, Calcium Level 8.2L, Total Bilirubin 0.7 , Aspartate Amino Transf (AST/SGOT) 26, Alanine Aminotransferase (ALT/SGPT) 17, Alkaline Phosphatase 32L, Total Protein 6.2L, Albumin 3.3 Assessment/Plan Assessment/Plan Assess & Plan/Chief Complaint BLADDER MASS RIGHT SIDED LUNG MASS ABDOMINAL PAIN URINARY RETENTION ANEMIA ACUTE RENAL FAILURE HYDROURETERONEPHROSIS CHRONIC ANTICOAGULATION BLADDER MASS - WITH ACUTE RENAL FAILURE AND HYDROURETERONEPHROSIS - DEFER SURGICAL INTERVENTION TO DR. TALBERT - MONITOR URINE OUTPUT - PT WILL NEED CONTINUOUS IRRIGATION UNTIL CLEAR, THEN RESUME JUST BLACKBURN WITHOUT IRRIGATION. PT WILL HAVE TO BE OFF OF ASPIRIN X 1 WEEK AND COUMADIN X 3 DAYS PRIOR TO ANY PROCEDURE - DUE TO HIS BLEEDING AND ELEVATED INR HE HAS BEEN OFF OF COUMADIN FOR SEVERAL DAYS AND ON WEDNESDAY HE WILL BE OFF OF HIS ASPIRIN FOR 8 DAYS. PLANNING FOR CYSTOSCOPE WEDNESDAY. RIGHT SIDED LUNG MASS - DISCUSSED WITH ONCOLOGY - DR. SUNSHINE TO BE INVOLVED, THE POSITION OF THE MASS DOES NOT LOOK AMENABLE TO BIOPSY VIA CT SCAN. ABDOMINAL PAIN DUE TO URINARY RETENTION - CBI TO BE CONTINUED DUE TO PERSISTENT CLOTS ANEMIA - HGB DOWN AGAIN - DUE TO HIS CARDIAC HISTORY - HE WILL NEED TO HAVE HGB AT 10 PRIOR TO PROCEDURE DUE TO THE HIGH PROBABILITY OF BLEEDING INTRAOPERATIVELY. A HIGHER HGB WILL DECREASE HIS CARDIAC RISK. CHRONIC ANTICOAGULATION AND HYPERTENSION - WITH CURRENT HYPOTENSION -HOLDING HOME MEDICATIONS AT THIS TIME - CONSULT TO DR. GONZALEZ - CARDIOLOGY. GI PROPHYLAXIS WILL BE WITH PEPCID. DVT PROPHYLAXIS WITH SCD'S ONLY AT THIS TIME DUE TO PT BLEEDING/ANEMIA CONSTIPATION IMPROVED WITH STOOL SOFTENERS AND DULCOLAX GIVEN YESTERDAY. Clinical Quality Measures DVT/VTE Risk/Contraindication: Risk Factor Score Per Nursin RFS Level Per Nursing on Admit: 4+=Very High CAREY CHOWDHURY MD September 17, 2017 06:47
[2017-09-17] MEDS ORDERED: FUROSEMIDE 40 MG/4 ML INJ (LASIX) IVP NR (07:11)
[2017-09-17] MEDS: LACTOBACILLUS Acidoph/Bulgar (LACTINEX/FLORANEX) TAB PO SCH (08:24)
--- NOTE | 2017-09-17 09:29 | Progress Note-Urology ---
Progress Note-Urology Progress Notes/Assess & Plan Progress/Assessment & Plan URINE IMPROVING. PLAN 2U P.C TODAY, NEED HB ABOVE 10 BEFORE OR WEDNESDAY AND KEEP OFF ASA AND WARFARIN. I WILL WRITE PREOP ORDERS ON WEDNESDAY Final Diagnosis GROSS HEMATURIA POSSIBLE BLADDER TUMOR WITH RT URETERAL OBSTRUCTION LANRE TALBERT MD September 17, 2017 9:29 am
[2017-09-17] MEDS: NS IV 1000 ML 1,000 ML IV SCH (09:48)
--- NOTE | 2017-09-17 12:29 | Physical Therapy Evaluation ---
PT Evaluation-General Medical Diagnosis Admission Date September 13, 2017 at 12:03 Medical Diagnosis: renal failure Onset Date: September 13, 2017 Therapy Diagnosis Therapy Diagnosis: generalized weakness Height/Weight Height (Feet): 5 Height (Inches): 11.00 Weight (Pounds): 191 Weight (Ounces): 6.0 Precautions Precautions/Isolations: Standard Precautions Weight Bear Status Right Lower Extremity: Right Full Weight Bearing Left Lower Extremity: Left Full Weight Bearing Referral Physician: Kasie Reason for Referral: Evaluation/Treatment Medical History Pertinent Medical History: Renal Insufficiency Additional Medical History bladder and lung mass Current History Direct admit from office Reviewed History: Yes Social History Home: Single Level Current Living Status: Spouse Prior/Core FIM Prior Level of Function Functional [place] Measure 0=Not Assessed/NA 4=Minimal Assistance 1=Total Assistance 5=Supervision or Setup 2=Maximal Assistance 6=Modified [place] 3=Moderate Assistance 7=Complete [place] Bed Mobility: 7 Transfers (B,C,W/C) (FIM): 7 Gait: 7 Locomotion: 7 PT Evaluation-Current Subjective Patient agrees to PT. No c/o. Pain Numeric Pain Scale: 0-No Pain Location: No Pain Reported Objective Patient Orientation: Normal For Age Problem Solving: Good Attachments: Ramirez Catheter, IV ROM/Strength ROM Lower Extremities bilateral LE WNL Strength Lower Extremities 4/5 bilaterally grossly Integumentary/Posture Integumentary refer to nursing notes Bowel Incontinence: No Bladder Incontinence: Ramirez Cath Posture WNL Neuromuscular (Tone, Coordination, Reflexes) grossly intact Sensory Vision: Functional Hearing: Functional Sensation Right Lower Extremit: Intact Sensation Left Lower Extremity: Intact Transfers Functional [place] Measure 0=Not Assessed/NA 4=Minimal Assistance 1=Total Assistance 5=Supervision or Setup 2=Maximal Assistance 6=Modified [place] 3=Moderate Assistance 7=Complete [place] Transfers (B, C, W/C) (FIM): 5 Scootin Rollin Supine to/from Sit: 6 Sit to/from Stand: 5 Gait Mode of Locomotion: Walk Anticipated Mode of Locomotion: Walk Gait (FIM): 2 Distance (FIM): 9=052-24 ft Distance: 125' Gait Level of Assist: 5 Gait Assistive Device: None Comments/Gait Description close SBA due to inactivity during week. PT did place FWW for use PRN Balance Sitting Static: Normal Sitting Dynamic: Normal Standing Static: Fair Standing Dynamic: Fair Assessment/Needs 77 y.o. male, will be seen short term by skilled PT to address functional strength and mobility to improve current LOF. Patient to have surgery next week to address bladder/renal insufficiency Rehab Potential: Fair PT Custodial Goals Boiler House Inspector Goals PT Custodial Goals Time Frame: October 01, 2017 Transfers (B,C,W/C) (FIM): 7 Gait (FIM): 7 Gait distance (FIM): 3=150 ft Gait Level of Assist: 7 Gait Assistive Device: None PT Plan Treatment/Plan Treatment Plan: Continue Plan of Care Treatment Plan: Education, Functional Activity Sadia, Functional Strength, Gait , Safety, Therapeutic Exercise, Transfers Treatment Duration: October 01, 2017 Frequency: 6 times per week Estimated Hrs Per Day: .25 hour per day Patient and/or Family Agrees t: Yes Discharge Recommendations Therapy D/C Recommendations: Home w/ Family Support, Home Independently Time/GCodes Time In: 1136 Time Out: 1157 Total Billed Treatment Time: 21 Total Billed Treatment 1 visit EVMod 21 min JAYA GUERRERO PT September 17, 2017 12:29
--- NOTE | 2017-09-17 12:52 | Cardiology Progress Note ---
Cardiology SOAP Progress Note Subjective: No cardiac symptoms Objective: I&O/Vital Signs 09/17/17 09/17/17 09/17/17 09/17/17 04:34 08:10 08:36 09:33 Temp 97.8 97.7 97.7 Pulse 76 79 79 Resp 17 20 18 B/P (MAP) 133/67 (89) 141/72 (95) 141/72 Pulse Ox 97 95 95 O2 Delivery Room Air Room Air Room Air Room Air 09/17/17 09/17/17 09:55 12:27 Temp 97.5 Pulse 78 71 Resp 18 18 B/P (MAP) 147/71 145/67 Pulse Ox 70 98 O2 Delivery Room Air Room Air 09/17/17 00:00 Intake Total 2320 ml Output Total 2425 ml Balance -105 ml Weight (Pounds): 191 Weight (Ounces): 6.0 Weight (Calculated Kilograms): 86.431144 Constitutional: appears stated age, AAO x 3; No apparent distress; well- developed, well-nourished Respiratory: chest is bilaterally symmetric, lungs clear to auscultation Cardiovascular: regular rate-rhythm; No irregularly irregular, No extra beats, No parasternal heave is noted, No JVD, No edema, No bradycardia, No tachycardia , No point of maximal impulse, No cardiac thrills are palpable; S1 and S2; No gallop/S3, No gallop/S4, No diastolic murmur, No systolic murmur, No friction rub, No click, No other Gastrointestional: No tender, No soft, No round, No distended, No pulsatile mass, No organomegaly, No guarding, No rebound, No tenderness, No hernia, No mass, No audible bowel sounds, No abnormal bowel sounds, No abdominal bruits, No spleenomegaly, No other Extremities: No normal range of motion, No non-tender, No normal inspection, No pedal edema, No calf tenderness, No normal capillary refill, No pelvis stable , No calf tenderness, No inflammation, No pedal edema, No slow capillary refill , No swelling, No other, No abrasion, No clubbing, No cyanosis, No ecchymosis, No laceration, No no lower extremity edema bilateral, No significant edema, No tenderness, No wound Neurologic/Psychiatric: no motor/sensory deficits, alert, normal mood/affect, oriented x 3, power is 5/5 both on sides Skin: No normal color, No warm/dry, No cyanosis, No cool, No diaphoresis, No damp, No ecchymosis, No jaundice, No mottled, No pallor, No rash, No tattoos/ piercings, No ulcerations, No rash on exposed areas, No ulcerations on exposed areas, No other Results/Procedures: Labs Laboratory Tests 09/16/17 13:40: Stool Occult Blood Immunoassay NEGATIVE 09/17/17 05:05: White Blood Count 9.4, Red Blood Count 2.92L, Hemoglobin 8.0L, Hematocrit 25L, Mean Corpuscular Volume 85, Mean Corpuscular Hemoglobin 27, Mean Corpuscular Hemoglobin Concent 32, Red Cell Distribution Width 18.5H, Platelet Count 333, Mean Platelet Volume 11.7H, Neutrophils (%) (Auto) 91H, Lymphocytes (%) (Auto) 5L, Monocytes (%) (Auto) 4, Eosinophils (%) (Auto) 0, Basophils (%) (Auto) 0, Neutrophils # (Auto) 8.5H, Lymphocytes # (Auto) 0.5L, Monocytes # (Auto) 0.4, Eosinophils # (Auto) 0.0, Basophils # (Auto) 0.0, Neutrophils % (Manual) 95, Lymphocytes % (Manual) 3, Monocytes % (Manual) 2, Eosinophils % (Manual) 0, Basophils % (Manual) 0, Band Neutrophils 0, Polychromasia SLIGHT, Hypochromasia MODERATE, Poikilocytosis SLIGHT, Anisocytosis SLIGHT, Target Cells SLIGHT, Crenated Cell SLIGHT, Elliptocytes SLIGHT, Prothrombin Time 19.6H, INR Comment 1.7H, Sodium Level 143, Potassium Level 4.3, Chloride Level 115H, Carbon Dioxide Level 18L, Anion Gap 10, Blood Urea Nitrogen 39H, Creatinine 1.69H, Estimat Glomerular Filtration Rate 40, BUN/Creatinine Ratio 23, Glucose Level 154H, Calcium Level 8.2L, Total Bilirubin 0.7, Aspartate Amino Transf (AST/SGOT ) 26, Alanine Aminotransferase (ALT/SGPT) 17, Alkaline Phosphatase 32L, Total Protein 6.2L, Albumin 3.3 A/P: Assessment/Dx: Gross hematuria, Anemia, Bladder mass, Right lung mass, Atrial fibrillation, CAD, status post CABG, Carotid arterial disease, Active smoking, DESI, Preoperative cardiovascular risk assessment Plan: Gross hematuria, could be secondary to the bladder mass. Will likely require bladder surgery with Dr. Brooke. Anemia, undergoing transfusion during my interview. Bladder mass, likely cause of hematuria. See above. Right lung mass, unclear etiology. Dr. Ramirez following. Atrial fibrillation, on warfarin with subtherapeutic INR. INR 1.7. Can hold warfarin 3 days before the surgery and start once okay with surgery. CAD, status post CABG, no active issues. Can hold aspirin before surgery and to restart when okay with surgery. Carotid arterial disease, stable area did no active issues. Active smoking, smoking cessation is recommended. DESI, likely secondary to post renal obstruction. Intrinsic renal disease cannot be ruled out. Nephrology referral as outpatient. Preoperative cardiovascular risk assessment: Patient denies any active cardiac symptoms. Above average functional capacity. We will recommend echocardiogram. Patient will be considered at moderate risk for major adverse perioperative cardiac events undergoing an intermediate risk noncardiac surgery. Anticoagulation management as above. Will require hemoglobin and hematocrit over 10 and 30 respectively. Complicated medical issues as above. Thank you for your consultation. Please call me if you have any questions. Liban Gonzalez MD, FACP, FACC, FSCAI, FHRS, CCDS Interventional Cardiology Cardiac Electrophysiology Vascular Medicine and Endovascular Interventions Charles GONZALEZ MD September 17, 2017 12:52 pm
[2017-09-17] MEDS: ALPRAZolam 0.5 MG (XANAX) TAB PO SCH (19:47)
[2017-09-17] MEDS: MELATONIN 3 MG TABLET PO SCH (19:47)
[2017-09-17] MEDS: TAMSULOSIN 0.4 MG (FLOMAX) CAP PO SCH (19:47)
[2017-09-17] MEDS: POLYETHYLENE GLYCOL 17 GM (MIRALAX) PACK PO SCH (19:47)
[2017-09-18 00:21] VITALS: BP 158/76
[2017-09-18 04:32] VITALS: BP 134/62
[2017-09-18] MEDS: PANTOPRAZOLE 40 MG (PROTONIX) TAB PO SCH (05:25)
[2017-09-18] MEDS: NS IV 1000 ML 1,000 ML IV SCH (05:27)
[2017-09-18 06:31] LABS: BASOPHILS % (AUTO) 0 % (0-10); EOSINOPHILS # (AUTO) 0.1 10^3/uL (0.0-0.3); EOSINOPHILS % (AUTO) 1 % (0-10); HEMATOCRIT 31 % (40-54); HEMOGLOBIN 10.4 G/DL (13.3-17.7); LYMPHOCYTES % (AUTO) 9 % (12-44); MEAN CORPUSCULAR HEMOGLOBIN 28 PG (25-34); MEAN CORPUSCULAR HGB CONC 33 G/DL (32-36); MEAN CORPUSCULAR VOLUME 84 FL (80-99); MEAN PLATELET VOLUME 11.1 FL (7.4-10.4); MONOCYTES # (AUTO) 1.1 X 10^3 (0.0-1.0); MONOCYTES % (AUTO) 10 % (0-12); NEUTROPHILS # (AUTO) 8.7 X 10^3 (1.8-7.8); NEUTROPHILS % (AUTO) 80 % (42-75); PLATELET COUNT 348 10^3/uL (130-400); RED CELL DISTRIBUTION WIDTH 18.2 % (10.0-14.5); WHITE BLOOD COUNT 10.9 10^3/uL (4.3-11.0)
[2017-09-18 06:50] LABS: ALBUMIN 3.4 GM/DL (3.2-4.5); BILIRUBIN,TOTAL 1.6 MG/DL (0.1-1.0); CALCIUM 8.7 MG/DL (8.5-10.1); CREATININE SERUM 1.57 MG/DL (0.60-1.30); POTASSIUM 3.9 MMOL/L (3.6-5.0); TOTAL PROTEIN 6.5 GM/DL (6.4-8.2)
[2017-09-18 08:19] VITALS: BP 157/78
[2017-09-18] MEDS: LACTOBACILLUS Acidoph/Bulgar (LACTINEX/FLORANEX) TAB PO SCH (08:58)
--- NOTE | 2017-09-18 10:29 | Progress Note-Hospitalist ---
Subjective HPI/CC On Admission Date Seen by Provider: September 18, 2017 Time Seen by Provider: 09:30 Subjective/Events-last exam Patient doing much better Has received 5 units of packed red blood cell transfusion since admission Patient is eating and drinking well and crackles on exam precludes IV fluids to be continued to prevent massive volume overload especially with the transfused packed cell volume so will DC the IV fluid Continuous bladder irrigation is continuing and will have cystoscopy on Wednesday since this is suspicious for bladder cancer No pain is reported Bowels are moving and now is having loose stools due to the bowel regimen that he was given. Review of Systems General: Fatigue, Malaise Genitourinary: Frequency Objective Exam Vital Signs Vital Signs Date Time Temp Pulse Resp B/P (MAP) Pulse Ox O2 Delivery O2 Flow Rate FiO2 09/18/17 12:00 99.1 78 16 161/75 (103) 96 Room Air Capillary Refill : General Appearance: No Apparent Distress, WD/WN, Chronically ill, Obese Neck: Non Tender Respiratory: No Accessory Muscle Use, No Respiratory Distress, Crackles Cardiovascular: No Edema, Irregularly Irregular Neurologic/Psychiatric: Alert, Oriented x3, No Motor/Sensory Deficits, Normal Mood/Affect Skin: Normal Color, Warm/Dry Lymphatic: No Adenopathy Results/Procedures Lab Laboratory Tests 09/18/17 06:20 Patient resulted labs reviewed. Assessment/Plan Assessment and Plan Assess & Plan/Chief Complaint Assessment: Gross hematuria while on Coumadin now anticoagulation stopped but required 5 units of packed red blood cells since admission cystoscopy on Wednesday likely this indicates bladder tumor Plan: Maintain continuous bladder irrigation per urology Monitor INR Hold aspirin products Monitor for A. fib with rapid ventricular response Monitor closely Hep-Lock IV fluid due to crackles on lung exam to prevent overt volume overload Diagnosis/Problems Diagnosis/Problems (1) Hematuria Status: Acute Qualifiers: Hematuria type: gross Qualified Codes: R31.0 - Gross hematuria (2) Severe anemia Status: Acute (3) Atrial fibrillation Status: Chronic Qualifiers: Atrial fibrillation type: chronic Qualified Codes: I48.2 - Chronic atrial fibrillation (4) CAD (coronary artery disease) Status: Chronic Qualifiers: Coronary Disease-Associated Artery/Lesion type: nond[place]ton artery [place] vs. transplanted heart: nondalton heart Associated angina: without angina Qualified Codes: I25.10 - Atherosclerotic heart disease of nondalton coronary artery without angina pectoris (5) Hypertension Status: Chronic Qualifiers: Hypertension type: essential hypertension Qualified Codes: I10 - Essential (primary) hypertension (6) Transfusion of blood during current hospitalisation Status: Acute (7) Urinary retention Status: Acute (8) Renal failure (ARF), acute on chronic Status: Acute Qualifiers: Acute renal failure type: unspecified Chronic kidney disease stage: stage 4 (severe) Qualified Codes: N17.9 - Acute kidney failure, unspecified; N18.4 - Chronic kidney disease, stage 4 (severe) (9) Bladder irritation Status: Acute Clinical Quality Measures DVT/VTE Risk/Contraindication: Risk Factor Score Per Nursin RFS Level Per Nursing on Admit: 4+=Very High MARIO BLACK DO September 18, 2017 10:29
[2017-09-18] MEDS ORDERED: LIDOCAINE UROJET 2% GEL 10 ML PKG ONE (10:48)
[2017-09-18] MEDS ORDERED: LIDOCAINE UROJET 2% GEL 10 ML PKG TOP ONE (11:00)
[2017-09-18 12:00] VITALS: BP 161/75
--- NOTE | 2017-09-18 14:45 | Cardiology Progress Note ---
Cardiology SOAP Progress Note Subjective: No acute cardiac complaints Objective: I&O/Vital Signs 09/18/17 09/18/17 09/18/17 09/18/17 04:32 08:00 08:19 12:00 Temp 97.8 98.4 99.1 Pulse 90 88 78 Resp 16 20 16 B/P (MAP) 134/62 (86) 157/78 (104) 161/75 (103) Pulse Ox 96 96 96 O2 Delivery Room Air Room Air Room Air Room Air 09/18/17 00:00 Intake Total 1600 ml Output Total 2408 ml Balance -808 ml Weight (Pounds): 186 Weight (Ounces): 8.0 Weight (Calculated Kilograms): 84.196521 Constitutional: appears stated age, AAO x 3; No apparent distress; well- developed, well-nourished Respiratory: chest is bilaterally symmetric, lungs clear to auscultation Cardiovascular: regular rate-rhythm; No irregularly irregular, No extra beats, No parasternal heave is noted, No JVD, No edema, No bradycardia, No tachycardia , No point of maximal impulse, No cardiac thrills are palpable; S1 and S2; No gallop/S3, No gallop/S4, No diastolic murmur, No systolic murmur, No friction rub, No click, No other Gastrointestional: No tender, No soft, No round, No distended, No pulsatile mass, No organomegaly, No guarding, No rebound, No tenderness, No hernia, No mass, No audible bowel sounds, No abnormal bowel sounds, No abdominal bruits, No spleenomegaly, No other Extremities: No normal range of motion, No non-tender, No normal inspection, No pedal edema, No calf tenderness, No normal capillary refill, No pelvis stable , No calf tenderness, No inflammation, No pedal edema, No slow capillary refill , No swelling, No other, No abrasion, No clubbing, No cyanosis, No ecchymosis, No laceration, No no lower extremity edema bilateral, No significant edema, No tenderness, No wound Neurologic/Psychiatric: no motor/sensory deficits, alert, normal mood/affect, oriented x 3, power is 5/5 both on sides Skin: No normal color, No warm/dry, No cyanosis, No cool, No diaphoresis, No damp, No ecchymosis, No jaundice, No mottled, No pallor, No rash, No tattoos/ piercings, No ulcerations, No rash on exposed areas, No ulcerations on exposed areas, No other Results/Procedures: Labs Laboratory Tests 09/18/17 06:20: White Blood Count 10.9, Red Blood Count 3.70L, Hemoglobin 10.4#L, Hematocrit 31L , Mean Corpuscular Volume 84, Mean Corpuscular Hemoglobin 28, Mean Corpuscular Hemoglobin Concent 33, Red Cell Distribution Width 18.2H, Platelet Count 348, Mean Platelet Volume 11.1H, Neutrophils (%) (Auto) 80H, Lymphocytes (%) (Auto) 9L, Monocytes (%) (Auto) 10, Eosinophils (%) (Auto) 1, Basophils (%) (Auto) 0, Neutrophils # (Auto) 8.7H, Lymphocytes # (Auto) 1.0, Monocytes # (Auto) 1.1H, Eosinophils # (Auto) 0.1, Basophils # (Auto) 0.0, Sodium Level 141, Potassium Level 3.9, Chloride Level 114H, Carbon Dioxide Level 19L, Anion Gap 8, Blood Urea Nitrogen 38H, Creatinine 1.57H, Estimat Glomerular Filtration Rate 43, BUN/ Creatinine Ratio 24, Glucose Level 82, Calcium Level 8.7, Total Bilirubin 1.6H, Aspartate Amino Transf (AST/SGOT) 32, Alanine Aminotransferase (ALT/SGPT) 20, Alkaline Phosphatase 31L, Total Protein 6.5, Albumin 3.4 A/P: Assessment/Dx: Gross hematuria, Anemia, Bladder mass, Right lung mass, Atrial fibrillation, CAD, status post CABG, Carotid arterial disease, Active smoking, DESI, Preoperative cardiovascular risk assessment Plan: Gross hematuria, could be secondary to the bladder mass. Will likely require bladder surgery with Dr. Brooke. Surgery scheduled for Wednesday. Anemia, undergoing transfusion during my interview. Bladder mass, likely cause of hematuria. See above. Right lung mass, unclear etiology. Dr. Ramirez following. Atrial fibrillation, on warfarin with subtherapeutic INR. INR 1.7. Can hold warfarin 3 days before the surgery and start once okay with surgery. CAD, status post CABG, no active issues. Can hold aspirin one week before surgery and to restart when okay with surgery. Carotid arterial disease, stable area did no active issues. Active smoking, smoking cessation is recommended. DESI, likely secondary to post renal obstruction. Intrinsic renal disease cannot be ruled out. Nephrology referral as outpatient. Preoperative cardiovascular risk assessment: Patient denies any active cardiac symptoms. Above average functional capacity. We will recommend echocardiogram. Patient will be considered at moderate risk for major adverse perioperative cardiac events undergoing an intermediate risk noncardiac surgery. Anticoagulation management as above. Will require hemoglobin and hematocrit over 10 and 30 respectively. Complicated medical issues as above. Thank you for your consultation. Please call me if you have any questions. Liban Gonzalez MD, FACP, FACC, FSCAI, FHRS, CCDS Interventional Cardiology Cardiac Electrophysiology Vascular Medicine and Endovascular Interventions Charles GONZALEZ MD September 18, 2017 2:45 pm
[2017-09-18 15:25] VITALS: BP 169/80
[2017-09-18] MEDS: TAMSULOSIN 0.4 MG (FLOMAX) CAP PO SCH (17:49)
[2017-09-18] MEDS: MELATONIN 3 MG TABLET PO SCH (20:11)
[2017-09-18] MEDS: POLYETHYLENE GLYCOL 17 GM (MIRALAX) PACK PO SCH (20:11)
[2017-09-18] MEDS: CARVEDILOL 12.5 MG (COREG) TABLET PO SCH (20:11)
[2017-09-18] MEDS: ALPRAZolam 0.5 MG (XANAX) TAB PO SCH (20:11)
[2017-09-19 00:04] VITALS: BP 154/70
[2017-09-19 04:11] VITALS: BP 149/65
[2017-09-19 04:50] LABS: BASOPHILS % (AUTO) 0 % (0-10); EOSINOPHILS # (AUTO) 0.4 10^3/uL (0.0-0.3); EOSINOPHILS % (AUTO) 5 % (0-10); HEMATOCRIT 30 % (40-54); HEMOGLOBIN 9.7 G/DL (13.3-17.7); LYMPHOCYTES # (AUTO) 1.1 X 10^3 (1.0-4.0); LYMPHOCYTES % (AUTO) 13 % (12-44); MEAN CORPUSCULAR HEMOGLOBIN 28 PG (25-34); MEAN CORPUSCULAR HGB CONC 33 G/DL (32-36); MEAN CORPUSCULAR VOLUME 84 FL (80-99); MEAN PLATELET VOLUME 11.5 FL (7.4-10.4); MONOCYTES # (AUTO) 0.8 X 10^3 (0.0-1.0); MONOCYTES % (AUTO) 10 % (0-12); NEUTROPHILS # (AUTO) 6.1 X 10^3 (1.8-7.8); NEUTROPHILS % (AUTO) 73 % (42-75); PLATELET COUNT 309 10^3/uL (130-400); RED CELL DISTRIBUTION WIDTH 17.5 % (10.0-14.5); WHITE BLOOD COUNT 8.3 10^3/uL (4.3-11.0)
[2017-09-19] MEDS: PANTOPRAZOLE 40 MG (PROTONIX) TAB PO SCH (05:17)
[2017-09-19 05:19] LABS: ALBUMIN 3.3 GM/DL (3.2-4.5); BILIRUBIN,TOTAL 1.6 MG/DL (0.1-1.0); CALCIUM 8.5 MG/DL (8.5-10.1); CREATININE SERUM 1.51 MG/DL (0.60-1.30); POTASSIUM 3.6 MMOL/L (3.6-5.0); TOTAL PROTEIN 6.2 GM/DL (6.4-8.2)
[2017-09-19] MEDS: LACTOBACILLUS Acidoph/Bulgar (LACTINEX/FLORANEX) TAB PO SCH (08:00)
[2017-09-19] MEDS: amLODIPine 5 MG (NORVASC) TAB PO SCH (08:00)
[2017-09-19] MEDS: CARVEDILOL 12.5 MG (COREG) TABLET PO SCH ×2 (08:01→19:47)
[2017-09-19 08:30] VITALS: BP 173/83
--- NOTE | 2017-09-19 11:43 | Progress Note-Hospitalist ---
Subjective HPI/CC On Admission Date Seen by Provider: September 19, 2017 Time Seen by Provider: 10:30 Subjective/Events-last exam Patient doing well overall Drinking and eating well Crackles on lungs have resolved since I hep-locked IV fluid prevent volume overload Creatinine noted at 1.5 Hemoglobin stable at 9.7 this am after a total of 5 units of packed red blood cells since admit Awaiting cystoscopy on Wednesday BM+ Review of Systems General: Fatigue, Malaise Objective Exam Vital Signs Vital Signs Date Time Temp Pulse Resp B/P (MAP) Pulse Ox O2 Delivery O2 Flow Rate FiO2 09/19/17 08:57 Room Air 09/19/17 08:30 98.9 87 20 173/83 (113) 93 Capillary Refill : General Appearance: No Apparent Distress, WD/WN Neck: Normal Inspection Respiratory: Lungs Clear, Normal Breath Sounds Cardiovascular: Regular Rate, Rhythm, No Edema Neurologic/Psychiatric: Alert, Oriented x3, No Motor/Sensory Deficits, Normal Mood/Affect Skin: Normal Color, Warm/Dry Lymphatic: No Adenopathy Results/Procedures Lab Laboratory Tests 09/19/17 03:20 Patient resulted labs reviewed. Assessment/Plan Assessment and Plan Assess & Plan/Chief Complaint Assessment: Gross hematuria while on Coumadin now anticoagulation stopped but required 5 units of packed red blood cells since admission cystoscopy on Wednesday likely this indicates bladder tumor Plan: Maintain continuous bladder irrigation per urology Monitor labs Hold aspirin products Monitor for A. fib with rapid ventricular response Monitor closely Diagnosis/Problems Diagnosis/Problems (1) Hematuria Status: Acute Qualifiers: Hematuria type: gross Qualified Codes: R31.0 - Gross hematuria (2) Severe anemia Status: Acute (3) Atrial fibrillation Status: Chronic Qualifiers: Atrial fibrillation type: chronic Qualified Codes: I48.2 - Chronic atrial fibrillation (4) CAD (coronary artery disease) Status: Chronic Qualifiers: Coronary Disease-Associated Artery/Lesion type: [place] artery Teller vs. transplanted heart: [place] heart Associated angina: without angina Qualified Codes: I25.10 - Atherosclerotic heart disease of [place] coronary artery without angina pectoris (5) Hypertension Status: Chronic Qualifiers: Hypertension type: essential hypertension Qualified Codes: I10 - Essential (primary) hypertension (6) Transfusion of blood during current hospitalisation Status: Acute (7) Urinary retention Status: Acute (8) Renal failure (ARF), acute on chronic Status: Acute Qualifiers: Acute renal failure type: unspecified Chronic kidney disease stage: stage 4 (severe) Qualified Codes: N17.9 - Acute kidney failure, unspecified; N18.4 - Chronic kidney disease, stage 4 (severe) (9) Bladder irritation Status: Acute Clinical Quality Measures DVT/VTE Risk/Contraindication: Risk Factor Score Per Nursin RFS Level Per Nursing on Admit: 4+=Very High MARIO BLCAK DO September 19, 2017 11:43
--- NOTE | 2017-09-19 12:22 | Cardiology Progress Note ---
Cardiology SOAP Progress Note Subjective: No cardiac complaints. Objective: I&O/Vital Signs 09/19/17 09/19/17 09/19/17 04:11 08:30 08:57 Temp 98.5 98.9 Pulse 82 87 Resp 16 20 B/P (MAP) 149/65 (93) 173/83 (113) Pulse Ox 93 93 O2 Delivery Room Air Room Air Room Air 09/19/17 00:00 Intake Total 1740 ml Output Total 3390 ml Balance -1650 ml Weight (Pounds): 182 Weight (Ounces): 0.0 Weight (Calculated Kilograms): 82.359452 Constitutional: appears stated age, AAO x 3; No apparent distress; well- developed, well-nourished Respiratory: chest is bilaterally symmetric, lungs clear to auscultation Cardiovascular: regular rate-rhythm; No irregularly irregular, No extra beats, No parasternal heave is noted, No JVD, No edema, No bradycardia, No tachycardia , No point of maximal impulse, No cardiac thrills are palpable; S1 and S2; No gallop/S3, No gallop/S4, No diastolic murmur, No systolic murmur, No friction rub, No click, No other Gastrointestional: No tender, No soft, No round, No distended, No pulsatile mass, No organomegaly, No guarding, No rebound, No tenderness, No hernia, No mass, No audible bowel sounds, No abnormal bowel sounds, No abdominal bruits, No spleenomegaly, No other Extremities: No normal range of motion, No non-tender, No normal inspection, No pedal edema, No calf tenderness, No normal capillary refill, No pelvis stable , No calf tenderness, No inflammation, No pedal edema, No slow capillary refill , No swelling, No other, No abrasion, No clubbing, No cyanosis, No ecchymosis, No laceration, No no lower extremity edema bilateral, No significant edema, No tenderness, No wound Neurologic/Psychiatric: no motor/sensory deficits, alert, normal mood/affect, oriented x 3, power is 5/5 both on sides Skin: No normal color, No warm/dry, No cyanosis, No cool, No diaphoresis, No damp, No ecchymosis, No jaundice, No mottled, No pallor, No rash, No tattoos/ piercings, No ulcerations, No rash on exposed areas, No ulcerations on exposed areas, No other Results/Procedures: Labs Laboratory Tests 09/19/17 03:20: White Blood Count 8.3, Red Blood Count 3.50L, Hemoglobin 9.7L, Hematocrit 30L, Mean Corpuscular Volume 84, Mean Corpuscular Hemoglobin 28, Mean Corpuscular Hemoglobin Concent 33, Red Cell Distribution Width 17.5H, Platelet Count 309, Mean Platelet Volume 11.5H, Neutrophils (%) (Auto) 73, Lymphocytes (%) (Auto) 13 , Monocytes (%) (Auto) 10, Eosinophils (%) (Auto) 5, Basophils (%) (Auto) 0, Neutrophils # (Auto) 6.1, Lymphocytes # (Auto) 1.1, Monocytes # (Auto) 0.8, Eosinophils # (Auto) 0.4H, Basophils # (Auto) 0.0, Sodium Level 141, Potassium Level 3.6, Chloride Level 111H, Carbon Dioxide Level 19L, Anion Gap 11, Blood Urea Nitrogen 34H, Creatinine 1.51H, Estimat Glomerular Filtration Rate 45, BUN/ Creatinine Ratio 23, Glucose Level 82, Calcium Level 8.5, Total Bilirubin 1.6H, Aspartate Amino Transf (AST/SGOT) 32, Alanine Aminotransferase (ALT/SGPT) 22, Alkaline Phosphatase 39L, Total Protein 6.2L, Albumin 3.3 A/P: Assessment/Dx: Gross hematuria, Anemia, Bladder mass, Right lung mass, Atrial fibrillation, CAD, status post CABG, Carotid arterial disease, Active smoking, DESI, Preoperative cardiovascular risk assessment Plan: Gross hematuria, could be secondary to the bladder mass. Will likely require bladder surgery with Dr. Brooke. Surgery scheduled for Wednesday. Anemia, undergoing transfusion during my interview. Bladder mass, likely cause of hematuria. See above. Right lung mass, unclear etiology. Dr. Ramirez following. Atrial fibrillation, on warfarin with subtherapeutic INR. INR 1.7. Can hold warfarin 3 days before the surgery and start once okay with surgery. CAD, status post CABG, no active issues. Can hold aspirin one week before surgery and to restart when okay with surgery. Carotid arterial disease, stable area did no active issues. Active smoking, smoking cessation is recommended. DESI, likely secondary to post renal obstruction. Intrinsic renal disease cannot be ruled out. Nephrology referral as outpatient. Preoperative cardiovascular risk assessment: Patient denies any active cardiac symptoms. Above average functional capacity. We will recommend echocardiogram. Patient will be considered at moderate risk for major adverse perioperative cardiac events undergoing an intermediate risk noncardiac surgery. Anticoagulation management as above. Will require hemoglobin and hematocrit over 10 and 30 respectively. Complicated medical issues as above. Thank you for your consultation. Please call me if you have any questions. Liban Gonzalez MD, FACP, FACC, FSCAI, FHRS, CCDS Interventional Cardiology Cardiac Electrophysiology Vascular Medicine and Endovascular Interventions Charles GONZALEZ MD September 19, 2017 12:22 pm
[2017-09-19 16:20] VITALS: BP 158/70
[2017-09-19] MEDS: TAMSULOSIN 0.4 MG (FLOMAX) CAP PO SCH (17:31)
[2017-09-19] MEDS: POLYETHYLENE GLYCOL 17 GM (MIRALAX) PACK PO SCH (19:11)
[2017-09-19] MEDS ORDERED: LOPERAMIDE 2 MG (IMODIUM) CAP ONE (19:38)
[2017-09-19] MEDS: LOPERAMIDE 2 MG (IMODIUM) CAP PO PRN (19:47)
[2017-09-19] MEDS: MELATONIN 3 MG TABLET PO SCH (19:47)
[2017-09-19] MEDS: ALPRAZolam 0.5 MG (XANAX) TAB PO SCH (19:47)
[2017-09-20] VITALS: BP 147/70
[2017-09-20] MEDS: LOPERAMIDE 2 MG (IMODIUM) CAP PO PRN ×2 (00:59→09:23)
[2017-09-20 04:34] LABS: BASOPHILS % (AUTO) 0 % (0-10); EOSINOPHILS # (AUTO) 0.5 10^3/uL (0.0-0.3); EOSINOPHILS % (AUTO) 6 % (0-10); HEMATOCRIT 29 % (40-54); HEMOGLOBIN 9.6 G/DL (13.3-17.7); LYMPHOCYTES # (AUTO) 1.3 X 10^3 (1.0-4.0); LYMPHOCYTES % (AUTO) 16 % (12-44); MEAN CORPUSCULAR HEMOGLOBIN 28 PG (25-34); MEAN CORPUSCULAR HGB CONC 33 G/DL (32-36); MEAN CORPUSCULAR VOLUME 85 FL (80-99); MEAN PLATELET VOLUME 10.9 FL (7.4-10.4); MONOCYTES # (AUTO) 0.7 X 10^3 (0.0-1.0); MONOCYTES % (AUTO) 9 % (0-12); NEUTROPHILS # (AUTO) 5.6 X 10^3 (1.8-7.8); NEUTROPHILS % (AUTO) 69 % (42-75); PLATELET COUNT 303 10^3/uL (130-400); RED BLOOD COUNT 3.43 10^6/uL (4.35-5.85); RED CELL DISTRIBUTION WIDTH 17.1 % (10.0-14.5); WHITE BLOOD COUNT 8.1 10^3/uL (4.3-11.0)
[2017-09-20 04:53] LABS: ALBUMIN 3.3 GM/DL (3.2-4.5); BILIRUBIN,TOTAL 1.7 MG/DL (0.1-1.0); CALCIUM 8.6 MG/DL (8.5-10.1); CREATININE SERUM 1.48 MG/DL (0.60-1.30); POTASSIUM 3.4 MMOL/L (3.6-5.0); TOTAL PROTEIN 6.3 GM/DL (6.4-8.2)
[2017-09-20] MEDS: PANTOPRAZOLE 40 MG (PROTONIX) TAB PO SCH (05:51)
--- NOTE | 2017-09-20 06:48 | Progress Note-Urology ---
Progress Note-Urology Progress Notes/Assess & Plan Progress/Assessment & Plan PLAN OR TOMORROW FULLY REEXPLAINED TO PATIENT AND WITH PREOPS Final Diagnosis GROSS HEMATURIA POSSIBLE BLADDER TUMOR LANRE TALBERT MD September 20, 2017 06:48
[2017-09-20] MEDS ORDERED: cefTRIAXone INJECTION 1,000 MG in NS (IVPB) 50 ML IV ONE (07:00)
[2017-09-20 07:31] VITALS: BP 164/74
[2017-09-20] MEDS ORDERED: NS IV 500 ML 500 ML IV SCH (08:16)
--- NOTE | 2017-09-20 08:19 | Progress Note ---
Subjective Date Seen by Provider: September 20, 2017 Time Seen by Provider: 08:15 Subjective/Events-last exam PT REPORTS THAT HE FEELS UNCHANGED FROM THE WEEKEND - HE REPORTS THAT HE DOES NOT HAVE ANY CHEST PAIN OR SHORTNESS OF BREATH Review of Systems General: Fatigue; No Malaise HEENT: No Dysphasia Pulmonary: No Dyspnea, No Cough Cardiovascular: No: Chest Pain, Palpitations Gastrointestinal: No: Nausea, Abdominal Pain, Constipation Genitourinary: Hematuria Neurological: Weakness Objective Exam Last Set of Vital Signs Vital Signs Date Time Temp Pulse Resp B/P (MAP) Pulse Ox O2 Delivery O2 Flow Rate FiO2 09/20/17 07:31 97.5 70 18 164/74 (104) 92 Room Air Capillary Refill : I&O Intake and Output 09/20/17 00:00 Intake Total 2400 ml Output Total 2050 ml Balance 350 ml Intake Oral 2400 ml Output Urine Total 2050 ml # Bowel Movements 7 General: Alert, Oriented X3, Cooperative HEENT: Atraumatic, PERRLA Neck: Supple Lungs: Clear to Auscultation Heart: Other (tachycardia, with ii/vi lacie) Abdomen: Normal Bowel Sounds, Other (ttp over dome of bladder on left and midline - protuberant abdomen) Extremities: No Clubbing Neuro: Normal Speech Psych/Mental Status: Mental Status NL, Mood NL Results Lab Laboratory Tests 09/20/17 04:25: White Blood Count 8.1, Red Blood Count 3.43L, Hemoglobin 9.6L, Hematocrit 29L, Mean Corpuscular Volume 85, Mean Corpuscular Hemoglobin 28, Mean Corpuscular Hemoglobin Concent 33, Red Cell Distribution Width 17.1H, Platelet Count 303, Mean Platelet Volume 10.9H, Neutrophils (%) (Auto) 69, Lymphocytes (%) (Auto) 16 , Monocytes (%) (Auto) 9, Eosinophils (%) (Auto) 6, Basophils (%) (Auto) 0, Neutrophils # (Auto) 5.6, Lymphocytes # (Auto) 1.3, Monocytes # (Auto) 0.7, Eosinophils # (Auto) 0.5H, Basophils # (Auto) 0.0, Sodium Level 141, Potassium Level 3.4L, Chloride Level 111H, Carbon Dioxide Level 18L, Anion Gap 12, Blood Urea Nitrogen 27H, Creatinine 1.48H, Estimat Glomerular Filtration Rate 46, BUN/ Creatinine Ratio 18, Glucose Level 93, Calcium Level 8.6, Total Bilirubin 1.7H, Aspartate Amino Transf (AST/SGOT) 28, Alanine Aminotransferase (ALT/SGPT) 23, Alkaline Phosphatase 41, Total Protein 6.3L, Albumin 3.3 Assessment/Plan Assessment/Plan Assess & Plan/Chief Complaint BLADDER MASS RIGHT SIDED LUNG MASS ABDOMINAL PAIN URINARY RETENTION ANEMIA ACUTE RENAL FAILURE HYDROURETERONEPHROSIS CHRONIC ANTICOAGULATION BLADDER MASS - WITH ACUTE RENAL FAILURE AND HYDROURETERONEPHROSIS - DEFER SURGICAL INTERVENTION TO DR. TALBERT - MONITOR URINE OUTPUT - PT WILL NEED CONTINUOUS IRRIGATION UNTIL CLEAR, THEN RESUME JUST BLACKBURN WITHOUT IRRIGATION. PT WILL HAVE TO BE OFF OF ASPIRIN X 1 WEEK AND COUMADIN X 3 DAYS PRIOR TO ANY PROCEDURE - DUE TO HIS BLEEDING AND ELEVATED INR HE HAS BEEN OFF OF COUMADIN FOR SEVERAL DAYS AND ON WEDNESDAY HE WILL BE OFF OF HIS ASPIRIN FOR 8 DAYS. PLANNING FOR CYSTOSCOPE WEDNESDAY. RIGHT SIDED LUNG MASS - DISCUSSED WITH ONCOLOGY - DR. SUNSHINE TO BE INVOLVED, THE POSITION OF THE MASS DOES NOT LOOK AMENABLE TO BIOPSY VIA CT SCAN. ABDOMINAL PAIN DUE TO URINARY RETENTION - CBI TO BE CONTINUED DUE TO PERSISTENT CLOTS ANEMIA - HGB DOWN AGAIN - DUE TO HIS CARDIAC HISTORY - HE WILL NEED TO HAVE HGB AT 10 PRIOR TO PROCEDURE DUE TO THE HIGH PROBABILITY OF BLEEDING INTRAOPERATIVELY. A HIGHER HGB WILL DECREASE HIS CARDIAC RISK. CHRONIC ANTICOAGULATION AND HYPERTENSION - WITH CURRENT HYPOTENSION -HOLDING HOME MEDICATIONS AT THIS TIME - CONSULT TO DR. GONZALEZ - CARDIOLOGY. GI PROPHYLAXIS WILL BE WITH PEPCID. DVT PROPHYLAXIS WITH SCD'S ONLY AT THIS TIME DUE TO PT BLEEDING/ANEMIA CONSTIPATION IMPROVED WITH STOOL SOFTENERS AND DULCOLAX GIVEN YESTERDAY. Clinical Quality Measures DVT/VTE Risk/Contraindication: Risk Factor Score Per Nursin RFS Level Per Nursing on Admit: 4+=Very High CAREY CHOWDHURY MD September 20, 2017 08:19
[2017-09-20] MEDS ORDERED: FUROSEMIDE 40 MG/4 ML INJ (LASIX) IVP NR (08:30)
[2017-09-20] MEDS ORDERED: diphenhydrAMINE 50 MG/ML INJ (BENADRYL) IVP PRN (08:30)
[2017-09-20] MEDS: LACTOBACILLUS Acidoph/Bulgar (LACTINEX/FLORANEX) TAB PO SCH (09:23)
[2017-09-20] MEDS: CARVEDILOL 12.5 MG (COREG) TABLET PO SCH ×2 (09:23→20:44)
[2017-09-20] MEDS: amLODIPine 5 MG (NORVASC) TAB PO SCH (09:23)
--- NOTE | 2017-09-20 09:23 | Cardiology Progress Note ---
Cardiology SOAP Progress Note Subjective: No chest pain or shortness of breath Objective: I&O/Vital Signs 09/20/17 09/20/17 00:00 07:31 Temp 98.9 97.5 Pulse 73 70 Resp 18 18 B/P (MAP) 147/70 (95) 164/74 (104) Pulse Ox 94 92 O2 Delivery Room Air Room Air 09/20/17 00:00 Intake Total 2100 ml Output Total 1350 ml Balance 750 ml Weight (Pounds): 177 Weight (Ounces): 1.0 Weight (Calculated Kilograms): 80.418762 Constitutional: appears stated age, AAO x 3; No apparent distress; well- developed, well-nourished Respiratory: chest is bilaterally symmetric, lungs clear to auscultation Cardiovascular: regular rate-rhythm; No irregularly irregular, No extra beats, No parasternal heave is noted, No JVD, No edema, No bradycardia, No tachycardia , No point of maximal impulse, No cardiac thrills are palpable; S1 and S2; No gallop/S3, No gallop/S4, No diastolic murmur, No systolic murmur, No friction rub, No click, No other Gastrointestional: No tender, No soft, No round, No distended, No pulsatile mass, No organomegaly, No guarding, No rebound, No tenderness, No hernia, No mass, No audible bowel sounds, No abnormal bowel sounds, No abdominal bruits, No spleenomegaly, No other Extremities: No normal range of motion, No non-tender, No normal inspection, No pedal edema, No calf tenderness, No normal capillary refill, No pelvis stable , No calf tenderness, No inflammation, No pedal edema, No slow capillary refill , No swelling, No other, No abrasion, No clubbing, No cyanosis, No ecchymosis, No laceration, No no lower extremity edema bilateral, No significant edema, No tenderness, No wound Neurologic/Psychiatric: no motor/sensory deficits, alert, normal mood/affect, oriented x 3, power is 5/5 both on sides Skin: No normal color, No warm/dry, No cyanosis, No cool, No diaphoresis, No damp, No ecchymosis, No jaundice, No mottled, No pallor, No rash, No tattoos/ piercings, No ulcerations, No rash on exposed areas, No ulcerations on exposed areas, No other Results/Procedures: Labs Laboratory Tests 09/20/17 04:25: White Blood Count 8.1, Red Blood Count 3.43L, Hemoglobin 9.6L, Hematocrit 29L, Mean Corpuscular Volume 85, Mean Corpuscular Hemoglobin 28, Mean Corpuscular Hemoglobin Concent 33, Red Cell Distribution Width 17.1H, Platelet Count 303, Mean Platelet Volume 10.9H, Neutrophils (%) (Auto) 69, Lymphocytes (%) (Auto) 16 , Monocytes (%) (Auto) 9, Eosinophils (%) (Auto) 6, Basophils (%) (Auto) 0, Neutrophils # (Auto) 5.6, Lymphocytes # (Auto) 1.3, Monocytes # (Auto) 0.7, Eosinophils # (Auto) 0.5H, Basophils # (Auto) 0.0, Sodium Level 141, Potassium Level 3.4L, Chloride Level 111H, Carbon Dioxide Level 18L, Anion Gap 12, Blood Urea Nitrogen 27H, Creatinine 1.48H, Estimat Glomerular Filtration Rate 46, BUN/ Creatinine Ratio 18, Glucose Level 93, Calcium Level 8.6, Total Bilirubin 1.7H, Aspartate Amino Transf (AST/SGOT) 28, Alanine Aminotransferase (ALT/SGPT) 23, Alkaline Phosphatase 41, Total Protein 6.3L, Albumin 3.3 A/P: Assessment/Dx: Gross hematuria, Anemia, Bladder mass, Right lung mass, Atrial fibrillation, CAD, status post CABG, Carotid arterial disease, Active smoking, DESI, Preoperative cardiovascular risk assessment Plan: Gross hematuria, could be secondary to the bladder mass. Will likely require bladder surgery with Dr. Brooke. Surgery scheduled for Wednesday. Anemia, hemoglobin 9.7. Will be receiving more blood transfusion today to get hemoglobin over 10. Bladder mass, likely cause of hematuria. See above. Right lung mass, unclear etiology. Dr. Ramirez following. Atrial fibrillation, on warfarin with subtherapeutic INR. INR 1.7. Can hold warfarin 3 days before the surgery and start once okay with surgery. CAD, status post CABG, no active issues. Can hold aspirin one week before surgery and to restart when okay with surgery. Carotid arterial disease, stable area did no active issues. Active smoking, smoking cessation is recommended. DESI, likely secondary to post renal obstruction. Intrinsic renal disease cannot be ruled out. Nephrology referral as outpatient. Preoperative cardiovascular risk assessment: Patient denies any active cardiac symptoms. Above average functional capacity. We will recommend echocardiogram. Patient will be considered at moderate risk for major adverse perioperative cardiac events undergoing an intermediate risk noncardiac surgery. Anticoagulation management as above. Will require hemoglobin and hematocrit over 10 and 30 respectively. Complicated medical issues as above. Thank you for your consultation. Please call me if you have any questions. Liban Gonzalez MD, FACP, FACC, FSCAI, FHRS, CCDS Interventional Cardiology Cardiac Electrophysiology Vascular Medicine and Endovascular Interventions Charles GONZALEZ MD September 20, 2017 9:23 am
[2017-09-20 11:27] VITALS: BP 134/63
[2017-09-20 11:46] VITALS: BP 143/64
[2017-09-20 14:00] VITALS: BP 141/69
--- NOTE | 2017-09-20 15:20 | Physical Therapy Daily Note ---
PT Daily Note-Current Subjective Denies pain. Has diarrhea so doesn't want to walk a long distance. Surgery tomorrow am. Mental Status Patient Orientation: Normal For Age Transfers Functional Crisp Measure 0=Not Assessed/NA 4=Minimal Assistance 1=Total Assistance 5=Supervision or Setup 2=Maximal Assistance 6=Modified Crisp 3=Moderate Assistance 7=Complete IndependenceIRFPAI Quality Coding Scale 6 Independent with activity with or without an assistive device 5 Patient requires set up or clean up by helper. Patient completes activity by themselves 4 Supervision or touching assist (CGA). [place] provide cues , steadying assist 3 The helper provides less than half the effort to complete the activity 2 The helper provides more than half the effort to complete the activity 1 Dependent. The helper does all the effort to complete an activity 7 Patient refused to complete or attempt activity 9 The patient did not perform the activity before the current illness or injury 88 Not attempted due to Medical conditions or safety concerns Transfers (B, C, W/C) (FIM): 6 Scootin Rollin Supine to/from Sit: 6 Sit to/from Stand: 6 Bed to/from Chair: 6 Uses handrail. Has bladder irrigation set up which he manages by himself to and from the bathroom. Weight Bearing Right Lower Extremity: Right Full Weight Bearing Left Lower Extremity: Left Full Weight Bearing Gait Training Gait (FIM): 5 Distance: 200 Gait Level of Assist: 5 Gait Persons Needed: 1 Gait Assistive Device: None Pushes own IV pole Exercises Supine Ex: Ankle pumps, Heel Slides Supine Reps: 10 Assessment Current Status: Good Progress (Moving well but needs encouragement to walk the hallway. ) Moving well - needs encouragment to walk longer distances. 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 Bulk Sealer Operator Goals 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 Time Frame: October 01, 2017 Transfers (B,C,W/C) (FIM): 7 Gait (FIM): 7 Gait distance (FIM): 3=150 ft Gait Level of Assist: 7 Gait Assistive Device: None PT Plan Treatment/Plan Treatment Plan: Continue Plan of Care Treatment Plan: Education, Functional Activity Sadia, Functional Strength, Gait , Safety, Therapeutic Exercise, Transfers Treatment Duration: October 01, 2017 Frequency: 6 times per week Estimated Hrs Per Day: .25 hour per day Patient and/or Family Agrees t: Yes Time/GCodes Time In: 250 Time Out: 310 Total Billed Treatment Time: 20 Total Billed Treatment 1, gt x 20 min G Codes Necessary: JANIE Weller PT September 20, 2017 15:20
[2017-09-20 16:00] VITALS: BP 166/72
[2017-09-20] MEDS: TAMSULOSIN 0.4 MG (FLOMAX) CAP PO SCH (17:15)
[2017-09-20] MEDS: POLYETHYLENE GLYCOL 17 GM (MIRALAX) PACK PO SCH (19:33)
[2017-09-20] MEDS: MELATONIN 3 MG TABLET PO SCH (20:43)
[2017-09-20] MEDS: ALPRAZolam 0.5 MG (XANAX) TAB PO SCH (20:44)
[2017-09-21] VITALS: BP 170/78
[2017-09-21] MEDS: PANTOPRAZOLE 40 MG (PROTONIX) TAB PO SCH (05:16)
[2017-09-21 05:18] LABS: BASOPHILS % (AUTO) 0 % (0-10); EOSINOPHILS # (AUTO) 0.6 10^3/uL (0.0-0.3); EOSINOPHILS % (AUTO) 7 % (0-10); HEMATOCRIT 31 % (40-54); HEMOGLOBIN 10.5 G/DL (13.3-17.7); LYMPHOCYTES # (AUTO) 1.1 X 10^3 (1.0-4.0); LYMPHOCYTES % (AUTO) 14 % (12-44); MEAN CORPUSCULAR HEMOGLOBIN 28 PG (25-34); MEAN CORPUSCULAR HGB CONC 34 G/DL (32-36); MEAN CORPUSCULAR VOLUME 84 FL (80-99); MEAN PLATELET VOLUME 11.1 FL (7.4-10.4); MONOCYTES # (AUTO) 0.7 X 10^3 (0.0-1.0); MONOCYTES % (AUTO) 9 % (0-12); NEUTROPHILS # (AUTO) 5.7 X 10^3 (1.8-7.8); NEUTROPHILS % (AUTO) 70 % (42-75); PLATELET COUNT 312 10^3/uL (130-400); RED CELL DISTRIBUTION WIDTH 16.7 % (10.0-14.5); WHITE BLOOD COUNT 8.1 10^3/uL (4.3-11.0)
[2017-09-21 05:36] LABS: ALBUMIN 3.2 GM/DL (3.2-4.5); BILIRUBIN,TOTAL 1.4 MG/DL (0.1-1.0); CALCIUM 8.3 MG/DL (8.5-10.1); CREATININE SERUM 1.57 MG/DL (0.60-1.30); POTASSIUM 3.1 MMOL/L (3.6-5.0); TOTAL PROTEIN 6.1 GM/DL (6.4-8.2)
[2017-09-21] MEDS ORDERED: fentaNYL INJECTION 100 MCG/2 ML AMP ONE (06:33)
[2017-09-21] MEDS ORDERED: LIDOCAINE PF 2% 5 ML (XYLOCAINE) VIAL ONE (06:33)
[2017-09-21] MEDS ORDERED: LACTATED RINGERS 0 ML IV ONE (06:33)
[2017-09-21] MEDS ORDERED: proPOfol 200 MG/20 ML (DIPRIVAN) VIAL IV ONE (06:33)
[2017-09-21] MEDS ORDERED: ONDANSETRON 4 MG/2 ML (SDV) Z0FRAN ONE (06:33)
[2017-09-21] MEDS ORDERED: MIDAZOLAM 2 MG/2 ML (VERSED) VIAL ONE (06:34)
--- NOTE | 2017-09-21 06:57 | Progress Note-Pre Operative ---
Pre-Operative Progress Note H&P Reviewed The H&P was reviewed, patient examined and no changes noted. Date Seen by Provider: September 21, 2017 Time Seen by Provider: 06:57 Date H&P Reviewed: September 21, 2017 Time H&P Reviewed: 06:57 Pre-Operative Diagnosis: GROSS HEMATURIA WITH POSSIBLE BLADDER TUMOR AND LT URETERAL OBSTRUCTION LANRE TALBERT MD September 21, 2017 6:57 am
[2017-09-21] MEDS ORDERED: SEVOFLURANE (ULTANE) 15 ML INHAL SOLN ONE ×3 (08:02→08:24)
[2017-09-21] MEDS ORDERED: NEOSTIGMINE 1 MG/ML 5 ML SYRINGE ONE (08:02)
[2017-09-21] MEDS ORDERED: GLYCOPYRROLATE 0.2 MG/ML (ROBINUL) 2 ML VIAL ONE (08:02)
[2017-09-21] MEDS ORDERED: DEXAMETHASONE 10 MG/ML (DECADRON) 1 ML VIAL ONE (08:10)
[2017-09-21] MEDS ORDERED: ROCURONIUM 10 MG/ML 5 ML SYRINGE IV ONE (08:10)
--- NOTE | 2017-09-21 08:13 | Progress Note ---
Subjective Date Seen by Provider: September 21, 2017 Time Seen by Provider: 08:12 Subjective/Events-last exam ATTEMPTED TO SEE PT THIS MORNING - HE WAS IN OPERATING ROOM, UNAVAILABLE, LABS REVIEWED, HGB IMPROVED TO 10.5 AFTER TRANSFUSION YESTERDAY. Objective Exam Last Set of Vital Signs Vital Signs Date Time Temp Pulse Resp B/P (MAP) Pulse Ox O2 Delivery O2 Flow Rate FiO2 09/21/17 00:00 98.8 71 18 170/78 (108) 92 Room Air Capillary Refill : I&O Intake and Output 09/20/17 23:59 Intake Total 1481 ml Output Total 3250 ml Balance -1769 ml Intake Oral 1380 ml IV Total 101 ml Output Urine Total 3250 ml # Bowel Movements 5 General: Alert, Oriented X3, Cooperative HEENT: Atraumatic, PERRLA Neck: Supple Lungs: Clear to Auscultation Heart: Other (tachycardia, with ii/vi lacie) Abdomen: Normal Bowel Sounds, Other (ttp over dome of bladder on left and midline - protuberant abdomen) Extremities: No Clubbing Neuro: Normal Speech Psych/Mental Status: Mental Status NL, Mood NL Results Lab Laboratory Tests 09/20/17 15:01: Lab Scanned Report Transfusion Reaction Form 09/21/17 05:02: White Blood Count 8.1, Red Blood Count 3.70L, Hemoglobin 10.5L, Hematocrit 31L, Mean Corpuscular Volume 84, Mean Corpuscular Hemoglobin 28, Mean Corpuscular Hemoglobin Concent 34, Red Cell Distribution Width 16.7H, Platelet Count 312, Mean Platelet Volume 11.1H, Neutrophils (%) (Auto) 70, Lymphocytes (%) (Auto) 14 , Monocytes (%) (Auto) 9, Eosinophils (%) (Auto) 7, Basophils (%) (Auto) 0, Neutrophils # (Auto) 5.7, Lymphocytes # (Auto) 1.1, Monocytes # (Auto) 0.7, Eosinophils # (Auto) 0.6H, Basophils # (Auto) 0.0, Sodium Level 144, Potassium Level 3.1L, Chloride Level 111H, Carbon Dioxide Level 21, Anion Gap 12, Blood Urea Nitrogen 25H, Creatinine 1.57H, Estimat Glomerular Filtration Rate 43, BUN/ Creatinine Ratio 16, Glucose Level 101, Calcium Level 8.3L, Total Bilirubin 1.4H , Aspartate Amino Transf (AST/SGOT) 29, Alanine Aminotransferase (ALT/SGPT) 25, Alkaline Phosphatase 47, Total Protein 6.1L, Albumin 3.2 Assessment/Plan Assessment/Plan Assess & Plan/Chief Complaint BLADDER MASS RIGHT SIDED LUNG MASS ABDOMINAL PAIN URINARY RETENTION ANEMIA ACUTE RENAL FAILURE HYDROURETERONEPHROSIS CHRONIC ANTICOAGULATION BLADDER MASS - WITH ACUTE RENAL FAILURE AND HYDROURETERONEPHROSIS - DEFER SURGICAL INTERVENTION TO DR. TALBERT - MONITOR URINE OUTPUT - PT WILL NEED CONTINUOUS IRRIGATION UNTIL CLEAR, THEN RESUME JUST BLACKBURN WITHOUT IRRIGATION. PT WILL HAVE TO BE OFF OF ASPIRIN X 1 WEEK AND COUMADIN X 3 DAYS PRIOR TO ANY PROCEDURE - DUE TO HIS BLEEDING AND ELEVATED INR HE HAS BEEN OFF OF COUMADIN FOR SEVERAL DAYS AND ON WEDNESDAY HE WILL BE OFF OF HIS ASPIRIN FOR 8 DAYS. PT DOWN IN SURGERY TODAY RIGHT SIDED LUNG MASS - DISCUSSED WITH ONCOLOGY - DR. SUNSHINE TO BE INVOLVED, THE POSITION OF THE MASS DOES NOT LOOK AMENABLE TO BIOPSY VIA CT SCAN. ABDOMINAL PAIN DUE TO URINARY RETENTION - CBI TO BE CONTINUED DUE TO PERSISTENT CLOTS ANEMIA - HGB DOWN AGAIN - DUE TO HIS CARDIAC HISTORY - HE WILL NEED TO HAVE HGB AT 10 PRIOR TO PROCEDURE DUE TO THE HIGH PROBABILITY OF BLEEDING INTRAOPERATIVELY. A HIGHER HGB WILL DECREASE HIS CARDIAC RISK. CHRONIC ANTICOAGULATION AND HYPERTENSION - WITH CURRENT HYPOTENSION -HOLDING HOME MEDICATIONS AT THIS TIME - CONSULT TO DR. GONZALEZ - CARDIOLOGY. GI PROPHYLAXIS WILL BE WITH PEPCID. DVT PROPHYLAXIS WITH SCD'S ONLY AT THIS TIME DUE TO PT BLEEDING/ANEMIA CONSTIPATION IMPROVED WITH STOOL SOFTENERS AND DULCOLAX GIVEN YESTERDAY. Clinical Quality Measures DVT/VTE Risk/Contraindication: Risk Factor Score Per Nursin RFS Level Per Nursing on Admit: 4+=Very High CAREY CHOWDHURY MD September 21, 2017 08:13
[2017-09-21] MEDS ORDERED: LACTATED RINGERS 1,000 ML IV SCH (08:15)
[2017-09-21] MEDS ORDERED: KCL 20 MEQ TAB (K-DUR) PO NR (08:19)
--- NOTE | 2017-09-21 08:28 | Progress Note-Post Operative ---
Post-Operative Progess Note Surgeon (s)/Mobile Application Architect (s) Surgeon LANRE TALBERT MD Mobile Application Architect: N/A Pre-Operative Diagnosis GROSS HEMATURIA WITH POSSIBLE BLADDER TUMOR AND LT URETERAL OBSTRUCTION Post-Operative Diagnosis SAME (LARGE) Procedure & Operative Findings Date of Procedure 09/21/17 Procedure Performed/Findings TURBT Anesthesia Type GENERAL Estimated Blood Loss Estimated blood loss (mL): NEGLIGIBLE Specimens/Packing Specimens Removed BLADDER TUMOR CHIPS AND BASE Packing: N/A LANRE TALBERT MD September 21, 2017 8:28 am
[2017-09-21] MEDS ORDERED: ONDANSETRON 4 MG/2 ML (SDV) Z0FRAN IVP PRN (08:45)
[2017-09-21] MEDS ORDERED: morphine INJ 10 MG/ML 1ML (SYR OR VIAL) IVP PRN (08:45)
[2017-09-21] MEDS ORDERED: MEPERIDINE (DEMEROL) INJ 50 MG/ML IVP PRN (08:45)
[2017-09-21 09:30] VITALS: BP 175/73
--- NOTE | 2017-09-21 09:55 | Cardiology Progress Note ---
Cardiology SOAP Progress Note Subjective: Bladder surgery this morning. No chest pain or shortness of breath. No bleeding Objective: I&O/Vital Signs 09/21/17 00:00 Temp 98.8 Pulse 71 Resp 18 B/P (MAP) 170/78 (108) Pulse Ox 92 O2 Delivery Room Air 09/21/17 00:00 Intake Total 1231 ml Output Total 2000 ml Balance -769 ml Weight (Pounds): 179 Weight (Ounces): 2.0 Weight (Calculated Kilograms): 81.341504 Constitutional: appears stated age, AAO x 3; No apparent distress; well- developed, well-nourished Respiratory: chest is bilaterally symmetric, lungs clear to auscultation Cardiovascular: regular rate-rhythm; No irregularly irregular, No extra beats, No parasternal heave is noted, No JVD, No edema, No bradycardia, No tachycardia , No point of maximal impulse, No cardiac thrills are palpable; S1 and S2; No gallop/S3, No gallop/S4, No diastolic murmur, No systolic murmur, No friction rub, No click, No other Gastrointestional: No tender, No soft, No round, No distended, No pulsatile mass, No organomegaly, No guarding, No rebound, No tenderness, No hernia, No mass, No audible bowel sounds, No abnormal bowel sounds, No abdominal bruits, No spleenomegaly, No other Extremities: No normal range of motion, No non-tender, No normal inspection, No pedal edema, No calf tenderness, No normal capillary refill, No pelvis stable , No calf tenderness, No inflammation, No pedal edema, No slow capillary refill , No swelling, No other, No abrasion, No clubbing, No cyanosis, No ecchymosis, No laceration, No no lower extremity edema bilateral, No significant edema, No tenderness, No wound Neurologic/Psychiatric: no motor/sensory deficits, alert, normal mood/affect, oriented x 3, power is 5/5 both on sides Skin: No normal color, No warm/dry, No cyanosis, No cool, No diaphoresis, No damp, No ecchymosis, No jaundice, No mottled, No pallor, No rash, No tattoos/ piercings, No ulcerations, No rash on exposed areas, No ulcerations on exposed areas, No other Results/Procedures: Labs Laboratory Tests 09/20/17 15:01: Lab Scanned Report Transfusion Reaction Form 09/21/17 05:02: White Blood Count 8.1, Red Blood Count 3.70L, Hemoglobin 10.5L, Hematocrit 31L, Mean Corpuscular Volume 84, Mean Corpuscular Hemoglobin 28, Mean Corpuscular Hemoglobin Concent 34, Red Cell Distribution Width 16.7H, Platelet Count 312, Mean Platelet Volume 11.1H, Neutrophils (%) (Auto) 70, Lymphocytes (%) (Auto) 14 , Monocytes (%) (Auto) 9, Eosinophils (%) (Auto) 7, Basophils (%) (Auto) 0, Neutrophils # (Auto) 5.7, Lymphocytes # (Auto) 1.1, Monocytes # (Auto) 0.7, Eosinophils # (Auto) 0.6H, Basophils # (Auto) 0.0, Sodium Level 144, Potassium Level 3.1L, Chloride Level 111H, Carbon Dioxide Level 21, Anion Gap 12, Blood Urea Nitrogen 25H, Creatinine 1.57H, Estimat Glomerular Filtration Rate 43, BUN/ Creatinine Ratio 16, Glucose Level 101, Calcium Level 8.3L, Total Bilirubin 1.4H , Aspartate Amino Transf (AST/SGOT) 29, Alanine Aminotransferase (ALT/SGPT) 25, Alkaline Phosphatase 47, Total Protein 6.1L, Albumin 3.2 A/P: Assessment/Dx: Gross hematuria, Anemia, Bladder mass, Right lung mass, Atrial fibrillation, CAD, status post CABG, Carotid arterial disease, Active smoking, DESI, Preoperative cardiovascular risk assessment Plan: Gross hematuria, could be secondary to the bladder mass. Bladder surgery this morning with Dr. Brooke. Tumor biopsy sent for pathology will be available on . Anemia, hemoglobin over 10. Bladder mass, likely cause of hematuria. See above. Right lung mass, unclear etiology. Dr. Ramirez following. Atrial fibrillation, on warfarin with subtherapeutic INR. INR 1.7. Can restart warfarin when okay with surgery. CAD, status post CABG, no active issues. Can restart aspirin when okay with surgery. Carotid arterial disease, stable area did no active issues. Active smoking, smoking cessation is recommended. DESI, likely secondary to post renal obstruction. Intrinsic renal disease cannot be ruled out. Nephrology referral as outpatient. Complicated medical issues as above. Thank you for your consultation. Please call me if you have any questions. Liban Gonzalez MD, FACP, FACC, FSCAI, FHRS, CCDS Interventional Cardiology Cardiac Electrophysiology Vascular Medicine and Endovascular Interventions Chrales GONZALEZ MD September 21, 2017 9:55 am
[2017-09-21] MEDS: amLODIPine 5 MG (NORVASC) TAB PO SCH (10:09)
[2017-09-21] MEDS: CARVEDILOL 12.5 MG (COREG) TABLET PO SCH ×2 (10:09→20:08)
[2017-09-21] MEDS: LACTOBACILLUS Acidoph/Bulgar (LACTINEX/FLORANEX) TAB PO SCH (10:09)
--- NOTE | 2017-09-21 13:46 | Physical Therapy Progress Note ---
Therapy Progress Note Patient is currently resting/sleeping from surgery this a.m. PT will resume in a.m. JAYA GUERRERO PT September 21, 2017 13:46
[2017-09-21 15:30] VITALS: BP 142/68
[2017-09-21] MEDS: TAMSULOSIN 0.4 MG (FLOMAX) CAP PO SCH (18:23)
[2017-09-21] MEDS: POLYETHYLENE GLYCOL 17 GM (MIRALAX) PACK PO SCH (19:33)
--- NOTE | 2017-09-21 19:42 | OPERATIVE REPORT ---
DATE OF SERVICE: 09/21/2017 PREOPERATIVE DIAGNOSIS: Gross hematuria, possible bladder tumor. POSTOPERATIVE DIAGNOSIS: Gross hematuria with large bladder tumor. OPERATION PERFORMED: Transurethral resection of large bladder tumor. SURGEON: Lanre Talbert MD ANESTHESIA: General. COMPLICATIONS: None. DESCRIPTION OF PROCEDURE: Under satisfactory general anesthesia, the patient in lithotomy position, genitalia were prepped and draped in the usual sterile fashion. Urethra was dilated with Nic sound to accommodate a 27-Belarusian Mcgrath resectoscope. The bladder was carefully inspected and the only abnormality was a large nodular spreading type tumor over the intramural portion and extending through the lateral wall on the left side. There were no papillary areas or nodular. I resected as much as possible and completely of the tumor without perforating it since there was no actual demarcation between where the tumor looks and the wall of the bladder underneath it. I could not see any efflux at any time or ureteric orifice as well. Bleeders were cauterized and resection looked complete and hemostasis complete. There was no further bladder tumor. I sent the bladder tumor chips separately from the base or what was the deeper sections into the bladder tumor and the wall of the bladder. I went ahead and inserted a 20-Belarusian 3-way 5 mL balloon catheter, inflated the balloon to 10 mL, connected to continuous bladder irrigation, the return of which was clear. Estimated blood loss negligible. The patient tolerated the procedure and anesthesia well and was sent to recovery room in stable condition. Job ID: [id number] DocumentID: [id number] Dictated Date: 09/21/2017 08:33:22 Senior Talent Acquisition Specialist Date: 09/21/2017 14:19:36 Dictated By: LANRE TALBERT MD
[2017-09-21 19:50] VITALS: BP 143/71
[2017-09-21] MEDS: MELATONIN 3 MG TABLET PO SCH (20:07)
[2017-09-21] MEDS: ALPRAZolam 0.5 MG (XANAX) TAB PO SCH (20:08)
[2017-09-21] MEDS: ALPRAZolam 0.5 MG (XANAX) TAB PO PRN (23:35)
[2017-09-22] VITALS: BP 166/72
[2017-09-22 04:00] VITALS: BP 175/79
[2017-09-22 05:50] LABS: BASOPHILS % (AUTO) 0 % (0-10); EOSINOPHILS % (AUTO) 0 % (0-10); HEMATOCRIT 30 % (40-54); HEMOGLOBIN 10.3 G/DL (13.3-17.7); LYMPHOCYTES # (AUTO) 0.9 X 10^3 (1.0-4.0); LYMPHOCYTES % (AUTO) 12 % (12-44); MEAN CORPUSCULAR HEMOGLOBIN 29 PG (25-34); MEAN CORPUSCULAR HGB CONC 34 G/DL (32-36); MEAN CORPUSCULAR VOLUME 84 FL (80-99); MEAN PLATELET VOLUME 11.2 FL (7.4-10.4); MONOCYTES # (AUTO) 0.7 X 10^3 (0.0-1.0); MONOCYTES % (AUTO) 10 % (0-12); NEUTROPHILS % (AUTO) 78 % (42-75); PLATELET COUNT 305 10^3/uL (130-400); RED CELL DISTRIBUTION WIDTH 17.1 % (10.0-14.5); WHITE BLOOD COUNT 7.7 10^3/uL (4.3-11.0)
[2017-09-22 06:15] LABS: ALBUMIN 3.1 GM/DL (3.2-4.5); CALCIUM 8.1 MG/DL (8.5-10.1); CREATININE SERUM 1.34 MG/DL (0.60-1.30); POTASSIUM 3.4 MMOL/L (3.6-5.0); TOTAL PROTEIN 6.1 GM/DL (6.4-8.2)
[2017-09-22] MEDS: PANTOPRAZOLE 40 MG (PROTONIX) TAB PO SCH (06:15)
[2017-09-22 07:47] VITALS: BP 175/80
--- NOTE | 2017-09-22 08:27 | Discharge Summary ---
Diagnosis/Chief Complaint Date of Admission September 13, 2017 at 12:03 Date of Discharge Discharge Date: September 22, 2017 Discharge Time: 12:00 Admission Diagnosis Admission Diagnosis BLADDER MASS RIGHT SIDED LUNG MASS ABDOMINAL PAIN URINARY RETENTION ANEMIA ACUTE RENAL FAILURE HYDROURETERONEPHROSIS CHRONIC ANTICOAGULATION Discharge Diagnosis BLADDER MASS RIGHT SIDED LUNG MASS ABDOMINAL PAIN URINARY RETENTION ANEMIA ACUTE RENAL FAILURE HYDROURETERONEPHROSIS CHRONIC ANTICOAGULATION HX OF CAD Reason Hospital Visit PT WAS A DIRECT ADMISSION FROM CLINIC TO THE HOSPITAL. HE WAS ADMITTED DUE TO SEVERE DECLINE AND URINARY RETENTION. HE WAS FOUND TO HAVE A HGB OF 6.7 ON ADMISSION AND MASSIVE URINARY RETENTION WITH OBSTRUCTIVE LESION IN BLADDER ON LEFT SIDE WITH HYDROURETER AND A NEWLY DIAGNOSED LUNG MASS. Discharge Summary Procedures: CYSTOSCOPE Consultations DR. GALI GONZALEZ Discharge Physical Examination Allergies: Coded Allergies: amoxicillin (Verified Allergy, Intermediate, HIVES, 09/13/17) nitroglycerin (Verified Allergy, Mild, DECREASED BP, 09/13/17) Vitals & I&Os Vital Signs Date Time Temp Pulse Resp B/P (MAP) Pulse Ox O2 Delivery O2 Flow Rate FiO2 09/22/17 07:47 98.1 67 18 175/80 (111) 95 Room Air General Appearance: Alert, Oriented X3, Cooperative HEENT: Atraumatic, PERRLA Respiratory: Clear to Auscultation Cardiovascular: Other (tachycardia, with ii/vi lacie) Abdominal: Normal Bowel Sounds, Other (ttp over dome of bladder on left and midline - protuberant abdomen) Extremities: No Clubbing Neuro: Normal Speech Psych/Mental Status: Mental Status NL, Mood NL Hospital Course BLADDER MASS RIGHT SIDED LUNG MASS ABDOMINAL PAIN URINARY RETENTION ANEMIA ACUTE RENAL FAILURE HYDROURETERONEPHROSIS CHRONIC ANTICOAGULATION BLADDER MASS - WITH ACUTE RENAL FAILURE AND HYDROURETERONEPHROSIS - DEFER SURGICAL INTERVENTION TO DR. TALBERT - MONITOR URINE OUTPUT - PT WILL NEED CONTINUOUS IRRIGATION UNTIL CLEAR, THEN RESUME JUST BLACKBURN WITHOUT IRRIGATION. PT WILL HAVE TO BE OFF OF ASPIRIN X 1 WEEK AND COUMADIN X 3 DAYS PRIOR TO ANY PROCEDURE - DUE TO HIS BLEEDING AND ELEVATED INR HE HAS BEEN OFF OF COUMADIN FOR SEVERAL DAYS AND ON WEDNESDAY HE WILL BE OFF OF HIS ASPIRIN FOR 8 DAYS. CYSTOSCOPE PERFORMED YESTERDAY - PATHOLOGY PENDING. HOLD COUMADIN UNTIL SEEN BY DR. TALBERT IN CLINIC. RIGHT SIDED LUNG MASS - DISCUSSED WITH ONCOLOGY - DR. SUNSHINE TO BE INVOLVED, THE POSITION OF THE MASS DOES NOT LOOK AMENABLE TO BIOPSY VIA CT SCAN. - PT WILL NEED TO BE SET UP FOR PET SCAN NEXT WEDNESDAY ABDOMINAL PAIN DUE TO URINARY RETENTION - CBI STOPPED THIS MORNING. ANEMIA - HGB STABLE AFTER LAST BLOOD TRANSFUSION AND CYSTOSCOPE YESTERDAY. CHRONIC ANTICOAGULATION AND HYPERTENSION - WITH CURRENT HYPOTENSION -HOLDING HOME MEDICATIONS AT THIS TIME - CONSULT TO DR. GONZALEZ - CARDIOLOGY. GI PROPHYLAXIS WILL BE WITH PEPCID. DVT PROPHYLAXIS WITH SCD'S ONLY AT THIS TIME DUE TO PT BLEEDING/ANEMIA CONSTIPATION IMPROVED WITH STOOL SOFTENERS AND DULCOLAX. DISCHARGE TO HOME - PT TO BE ON CIPROFLOXACIN 500MG BID X 3 MORE DAYS ON DISCHARGE - HE WILL SEE DR. TALBERT IN CLINIC NEXT WEEK. Pending Labs Laboratory Tests 09/22/17 05:22: White Blood Count 7.7, Red Blood Count 3.60, Hemoglobin 10.3, Hematocrit 30, Mean Corpuscular Volume 84, Mean Corpuscular Hemoglobin 29, Mean Corpuscular Hemoglobin Concent 34, Red Cell Distribution Width 17.1, Platelet Count 305, Mean Platelet Volume 11.2, Neutrophils (%) (Auto) 78, Lymphocytes (%) (Auto) 12 , Monocytes (%) (Auto) 10, Eosinophils (%) (Auto) 0, Basophils (%) (Auto) 0, Neutrophils # (Auto) 6.0, Lymphocytes # (Auto) 0.9, Monocytes # (Auto) 0.7, Eosinophils # (Auto) 0.0, Basophils # (Auto) 0.0, Sodium Level 142, Potassium Level 3.4, Chloride Level 110, Carbon Dioxide Level 21, Anion Gap 11, Blood Urea Nitrogen 23, Creatinine 1.34, Estimat Glomerular Filtration Rate 52, BUN/ Creatinine Ratio 17, Glucose Level 121, Calcium Level 8.1, Total Bilirubin 1.0, Aspartate Amino Transf (AST/SGOT) 25, Alanine Aminotransferase (ALT/SGPT) 25, Alkaline Phosphatase 47, Total Protein 6.1, Albumin 3.1 Discharge Condition at discharge STABLE Instructions to patient/family Please see electronic discharge instructions given to patient. Discharge Medications Reviewed and agree with Discharge Medication list on patient's Discharge Instruction sheet Medication List: Active Scripts Active Ciprofloxacin HCl 500 Mg Tablet 500 Mg PO BID 3 Days Warfarin Sodium 5 Mg Tablet 2.5 Mg PO TUTH COUMADIN ON HOLD UNTIL CLEARED BY DR. TALBERT TO RESTART Warfarin Sodium 5 Mg Tablet 5 Mg PO SUMOWEFRSA COUMADIN ON HOLD UNTIL CLEARED BY DR. TALBERT TO RESTART Reported Alprazolam 0.5 Mg Tablet 0.5 Mg PO HS Culturelle (Lactobacillus Rhamnosus GG) 1 Each Capsule 1 Cap PO DAILY Vitamin D3 (Cholecalciferol (Vitamin D3)) 400 Unit Capsule 400 Unit PO DAILY Gold Garcia Medicated Body Powd (Menthol/Zinc Oxide) 113 Gm Powder TP PRN PRN Melatonin 3 mg Tablet (Melatonin/Pyridoxine HCl (B6)) 1 Each Tablet 9 Mg PO HS TAKES 3 (3 MG) TABLETS Centrum Silver Tablet (Multivit-Min/FA/Lycopene/Lut) 1 Each Tablet 1 Tab PO DAILY Tamsulosin HCl 0.4 Mg Cap.er.24h 0.4 Mg PO DAILY Valsartan 320 Mg Tablet 160 Mg PO DAILY TAKES 1/2 OF A (320 MG) TABLET Amlodipine Besylate 10 Mg Tablet 5 Mg PO DAILY TAKES 1/2 OF A (10 MG) TABLET Alprazolam 0.5 Mg Tablet 0.5 Mg PO BID PRN Fenofibrate (Fenofibrate Nanocrystallized) 145 Mg Tablet 145 Mg PO DAILY Carvedilol 25 Mg Tablet 25 Mg PO BID Atorvastatin Calcium 80 Mg Tablet 80 Mg PO HS Clinical Quality Measures DVT/VTE Risk/Contraindication: Risk Factor Score Per Nursin RFS Level Per Nursing on Admit: 4+=Very High CAREY CHOWDHURY MD September 22, 2017 08:27
--- NOTE | 2017-09-22 08:30 | Progress Note-Urology ---
Progress Note-Urology Progress Notes/Assess & Plan Progress/Assessment & Plan RECOVERED WELL. NO COMPLAINTS. URINE TINGED. PLAN PER ORDERS Final Diagnosis BLADDER TUMOR WITH GROSS HEMATURIA LANRE TALBERT MD September 22, 2017 8:30 am
[2017-09-22] MEDS ORDERED: WARF-48 PO ×2 (08:31)
[2017-09-22] MEDS ORDERED: CIPR500T4 PO (08:31)
--- NOTE | 2017-09-22 08:34 | Discharge Inst-Complex ---
[facility] [place] Med Rec & Follow Up Appt. New Medications: Ciprofloxacin HCl (Ciprofloxacin HCl) 500 Mg Tablet 500 MG PO BID for 3 Days, #6 TAB Changed Medications: Warfarin Sodium (Warfarin Sodium) 5 Mg Tablet 5 MG PO SuMoWeFr, #30 TAB (Medication details modified) COUMADIN ON HOLD UNTIL CLEARED BY DR. TALBERT TO RESTART Warfarin Sodium (Warfarin Sodium) 5 Mg Tablet 2.5 MG PO TuTh, #30 TAB (Changed from: TAKES 1/2 OF A (5 MG) TABLET) COUMADIN ON HOLD UNTIL CLEARED BY DR. TALBERT TO RESTART Continued Medications: Alprazolam (Alprazolam) 0.5 Mg Tablet 0.5 MG PO BID PRN for ANXIETY, TAB Alprazolam (Alprazolam) 0.5 Mg Tablet 0.5 MG PO HS, TAB Amlodipine Besylate (Amlodipine Besylate) 10 Mg Tablet 5 MG PO DAILY, TAB TAKES 1/2 OF A (10 MG) TABLET Atorvastatin Calcium (Atorvastatin Calcium) 80 Mg Tablet 80 MG PO HS, TAB Carvedilol (Carvedilol) 25 Mg Tablet 25 MG PO BID, TAB Cholecalciferol (Vitamin D3) (Vitamin D3) 400 Unit Capsule 400 UNIT PO DAILY, CAP Fenofibrate Nanocrystallized (Fenofibrate) 145 Mg Tablet 145 MG PO DAILY, TAB Lactobacillus Rhamnosus GG (Culturelle) 1 Each Capsule 1 CAP PO DAILY, CAP Melatonin/Pyridoxine HCl (B6) (Melatonin 3 mg Tablet) 1 Each Tablet 9 MG PO HS, TAB TAKES 3 (3 MG) TABLETS Menthol/Zinc Oxide (Gold Garcia Medicated Body Powd) 113 Gm Powder TP PRN PRN for RASH, EA Multivit-Min/FA/Lycopene/Lut (Centrum Silver Tablet) 1 Each Tablet 1 TAB PO DAILY, TAB Tamsulosin HCl (Tamsulosin HCl) 0.4 Mg Cap.er.24h 0.4 MG PO DAILY, CAP Valsartan (Valsartan) 320 Mg Tablet 160 MG PO DAILY, TAB TAKES 1/2 OF A (320 MG) TABLET Discontinued Medications: Aspirin (Aspirin EC) 81 Mg Tablet.dr 81 MG PO HS, TAB Bumetanide (Bumetanide) 2 Mg Tablet 2 MG PO DAILY, TAB Furosemide (Furosemide) 20 Mg Tablet 20 MG PO DAILY PRN for SWELLING, TAB [place]-3/Dha/Epa/Fish Oil (Fish Oil 1,400 mg Softgel) 1 Each Capsule.dr 1400 MG PO DAILY, CAP Potassium Chloride (Potassium Chloride) 10 Meq Tab.er.prt 10 MEQ PO DAILY PRN for WITH FUROSEMIDE Prescription: Transmitted to Pharmacy ([facility] SENT TO PHARMACY) Patient Instructions: DO NOT RESTART COUMADIN UNTIL YOU ARE CLEARED BY DR. TALBERT TO RESTART THE COUMADIN Activity, Diet and PDI Resume Normal Activity: Yes Discharge Diet: Regular Diet Driving Instructions: No Driving/Refer to Symptoms to Reoprt to : Appetite Changes, Fever Over 101 Degrees F, Pain/ Pressure in Chest, Shortness of Breath For Problems or Questions: Contact Your Physician, Go to Emergency Room Infection Signs and Symptoms: Temperature Above 101 F CAREY CHOWDHURY MD September 22, 2017 08:34
[2017-09-22] MEDS: LACTOBACILLUS Acidoph/Bulgar (LACTINEX/FLORANEX) TAB PO SCH (09:06)
[2017-09-22] MEDS: CARVEDILOL 12.5 MG (COREG) TABLET PO SCH ×2 (09:07→20:05)
[2017-09-22] MEDS: amLODIPine 5 MG (NORVASC) TAB PO SCH (09:07)
--- NOTE | 2017-09-22 10:27 | Physical Therapy Progress Note ---
Therapy Progress Note MONOMER RECOVERY OPERATOR talked to both pt & Nurse to confirm discharge. Pt has had Ramirez removed and fluids being pushed. As long as pt is able to urinate successfully, pt will discharge. PET scan to be obtained. MONOMER RECOVERY OPERATOR will check back in a little while to confirm this has happened. Time: 930 1 visit, no tx ISAMAR MATHIS PTA September 22, 2017 10:27
[2017-09-22 11:37] VITALS: BP 166/70
--- NOTE | 2017-09-22 13:47 | Cardiology Progress Note ---
Cardiology SOAP Progress Note Subjective: No cardiac symptoms. Objective: I&O/Vital Signs 09/22/17 09/22/17 09/22/17 09/22/17 04:00 07:47 08:00 11:37 Temp 97.5 98.1 97.7 Pulse 66 67 61 Resp 18 18 20 B/P (MAP) 175/79 (111) 175/80 (111) 166/70 (102) Pulse Ox 94 95 96 O2 Delivery Room Air Room Air Room Air Room Air 09/22/17 00:00 Intake Total 1740 ml Output Total 425 ml Balance 1315 ml Weight (Pounds): 187 Weight (Ounces): 9.0 Weight (Calculated Kilograms): 85.106142 Constitutional: appears stated age, AAO x 3; No apparent distress; well- developed, well-nourished Respiratory: chest is bilaterally symmetric, lungs clear to auscultation Cardiovascular: regular rate-rhythm; No irregularly irregular, No extra beats, No parasternal heave is noted, No JVD, No edema, No bradycardia, No tachycardia , No point of maximal impulse, No cardiac thrills are palpable; S1 and S2; No gallop/S3, No gallop/S4, No diastolic murmur, No systolic murmur, No friction rub, No click, No other Gastrointestional: No tender, No soft, No round, No distended, No pulsatile mass, No organomegaly, No guarding, No rebound, No tenderness, No hernia, No mass, No audible bowel sounds, No abnormal bowel sounds, No abdominal bruits, No spleenomegaly, No other Extremities: No normal range of motion, No non-tender, No normal inspection, No pedal edema, No calf tenderness, No normal capillary refill, No pelvis stable , No calf tenderness, No inflammation, No pedal edema, No slow capillary refill , No swelling, No other, No abrasion, No clubbing, No cyanosis, No ecchymosis, No laceration, No no lower extremity edema bilateral, No significant edema, No tenderness, No wound Neurologic/Psychiatric: no motor/sensory deficits, alert, normal mood/affect, oriented x 3, power is 5/5 both on sides Skin: No normal color, No warm/dry, No cyanosis, No cool, No diaphoresis, No damp, No ecchymosis, No jaundice, No mottled, No pallor, No rash, No tattoos/ piercings, No ulcerations, No rash on exposed areas, No ulcerations on exposed areas, No other Results/Procedures: Labs Laboratory Tests 09/22/17 05:22: White Blood Count 7.7, Red Blood Count 3.60L, Hemoglobin 10.3L, Hematocrit 30L, Mean Corpuscular Volume 84, Mean Corpuscular Hemoglobin 29, Mean Corpuscular Hemoglobin Concent 34, Red Cell Distribution Width 17.1H, Platelet Count 305, Mean Platelet Volume 11.2H, Neutrophils (%) (Auto) 78H, Lymphocytes (%) (Auto) 12, Monocytes (%) (Auto) 10, Eosinophils (%) (Auto) 0, Basophils (%) (Auto) 0, Neutrophils # (Auto) 6.0, Lymphocytes # (Auto) 0.9L, Monocytes # (Auto) 0.7, Eosinophils # (Auto) 0.0, Basophils # (Auto) 0.0, Sodium Level 142, Potassium Level 3.4L, Chloride Level 110H, Carbon Dioxide Level 21, Anion Gap 11, Blood Urea Nitrogen 23H, Creatinine 1.34H, Estimat Glomerular Filtration Rate 52, BUN/ Creatinine Ratio 17, Glucose Level 121H, Calcium Level 8.1L, Total Bilirubin 1.0 , Aspartate Amino Transf (AST/SGOT) 25, Alanine Aminotransferase (ALT/SGPT) 25, Alkaline Phosphatase 47, Total Protein 6.1L, Albumin 3.1L Microbiology 09/20/17 MRSA Screen - Final, Complete MRSA not isolated A/P: Assessment/Dx: Gross hematuria, Anemia, Bladder mass, Right lung mass, Atrial fibrillation, CAD, status post CABG, Carotid arterial disease, Active smoking, DESI, Preoperative cardiovascular risk assessment Plan: Gross hematuria, could be secondary to the bladder mass. Bladder surgery this morning with Dr. Brooke. Tumor biopsy sent for pathology will be available on . Anemia, hemoglobin over 10. Bladder mass, likely cause of hematuria. See above. Right lung mass, unclear etiology. Dr. Ramirez following. Atrial fibrillation, on warfarin with subtherapeutic INR. INR 1.7. Can restart warfarin when okay with surgery. CAD, status post CABG, no active issues. Can restart aspirin when okay with surgery. Carotid arterial disease, stable area did no active issues. Active smoking, smoking cessation is recommended. DESI, likely secondary to post renal obstruction. Intrinsic renal disease cannot be ruled out. Nephrology referral as outpatient. Can set up with Dr Alise Gonzalez in [place]. Complicated medical issues as above. Once the patient is ready for discharge, follow with his printing technician in [facility]. Thank you for your consultation. Please call me if you have any questions. Liban Gonzalez MD, FACP, FACC, FSCAI, FHRS, CCDS Interventional Cardiology Cardiac Electrophysiology Vascular Medicine and Endovascular Interventions Charles GONZALEZ MD September 22, 2017 1:47 pm
--- NOTE | 2017-09-22 13:54 | Anesthesia-General Post-Op ---
General Patient Condition Mental Status/LOC: Same as Preop Cardiovascular: Satisfactory Nausea/Vomiting: Absent Respiratory: Satisfactory Pain: Controlled Complications: Absent Post Op Complications Complications None Follow Up Care/Instructions Patient Instructions None needed. Anesthesia/Patient Condition Patient Condition Patient is doing well, no complaints, stable vital signs, no apparent adverse anesthesia problems. THUY TYSON DO September 22, 2017 13:54
[2017-09-22 15:20] VITALS: BP 176/77
[2017-09-22] MEDS: ALPRAZolam 0.5 MG (XANAX) TAB PO PRN (17:34)
[2017-09-22] MEDS: TAMSULOSIN 0.4 MG (FLOMAX) CAP PO SCH (17:36)
[2017-09-22 19:30] VITALS: BP 138/69
[2017-09-22] MEDS: MELATONIN 3 MG TABLET PO SCH (20:05)
[2017-09-22] MEDS: ALPRAZolam 0.5 MG (XANAX) TAB PO SCH (20:05)
[2017-09-22] MEDS: POLYETHYLENE GLYCOL 17 GM (MIRALAX) PACK PO SCH (20:05)
[2017-09-23 00:28] VITALS: BP 139/70
[2017-09-23 04:18] VITALS: BP 142/68
[2017-09-23] MEDS: PANTOPRAZOLE 40 MG (PROTONIX) TAB PO SCH (05:04)
[2017-09-23 05:41] LABS: BASOPHILS % (AUTO) 0 % (0-10); EOSINOPHILS # (AUTO) 0.4 10^3/uL (0.0-0.3); EOSINOPHILS % (AUTO) 5 % (0-10); HEMATOCRIT 31 % (40-54); LYMPHOCYTES # (AUTO) 1.4 X 10^3 (1.0-4.0); LYMPHOCYTES % (AUTO) 19 % (12-44); MEAN CORPUSCULAR HEMOGLOBIN 28 PG (25-34); MEAN CORPUSCULAR HGB CONC 33 G/DL (32-36); MEAN CORPUSCULAR VOLUME 85 FL (80-99); MEAN PLATELET VOLUME 11.4 FL (7.4-10.4); MONOCYTES # (AUTO) 0.8 X 10^3 (0.0-1.0); MONOCYTES % (AUTO) 11 % (0-12); NEUTROPHILS # (AUTO) 4.9 X 10^3 (1.8-7.8); NEUTROPHILS % (AUTO) 65 % (42-75); PLATELET COUNT 312 10^3/uL (130-400); RED BLOOD COUNT 3.61 10^6/uL (4.35-5.85); WHITE BLOOD COUNT 7.5 10^3/uL (4.3-11.0)
[2017-09-23 06:08] LABS: BILIRUBIN,TOTAL 0.8 MG/DL (0.1-1.0); CALCIUM 8.2 MG/DL (8.5-10.1); CREATININE SERUM 1.48 MG/DL (0.60-1.30); POTASSIUM 3.5 MMOL/L (3.6-5.0); TOTAL PROTEIN 5.7 GM/DL (6.4-8.2)
[2017-09-23 07:36] VITALS: BP 172/75
[2017-09-23] MEDS: LACTOBACILLUS Acidoph/Bulgar (LACTINEX/FLORANEX) TAB PO SCH (09:46)
[2017-09-23] MEDS: CARVEDILOL 12.5 MG (COREG) TABLET PO SCH (09:47)
[2017-09-23] MEDS: amLODIPine 5 MG (NORVASC) TAB PO SCH (09:47)
--- NOTE | 2017-09-23 10:55 | Physical Therapy Daily Note ---
PT Daily Note-Current Subjective Patient agrees to PT. Pain Numeric Pain Scale: 0-No Pain Location: No Pain Reported Mental Status Patient Orientation: Normal For Age Transfers Functional [place] Measure 0=Not Assessed/NA 4=Minimal Assistance 1=Total Assistance 5=Supervision or Setup 2=Maximal Assistance 6=Modified [place] 3=Moderate Assistance 7=Complete IndependenceIRFPAI Quality Coding Scale 6 Independent with activity with or without an assistive device 5 Patient requires set up or clean up by helper. Patient completes activity by themselves 4 Supervision or touching assist (CGA). [place] provide cues , steadying assist 3 The helper provides less than half the effort to complete the activity 2 The helper provides more than half the effort to complete the activity 1 Dependent. The helper does all the effort to complete an activity 7 Patient refused to complete or attempt activity 9 The patient did not perform the activity before the current illness or injury 88 Not attempted due to Medical conditions or safety concerns Transfers (B, C, W/C) (FIM): 7 Scootin Rollin Supine to/from Sit: 7 Sit to/from Stand: 7 Bed to/from Chair: 7 Weight Bearing Right Lower Extremity: Right Full Weight Bearing Left Lower Extremity: Left Full Weight Bearing Gait Training Gait (FIM): 6 Distance (FIM): 3=150 ft Distance: >500' Gait Level of Assist: 6 Gait Assistive Device: FWW safe and functional/up independently in room Assessment Patient to dismiss to home on this date per physician. Patient is currently at independent PLOF with all gross motor skills. PT Customer Support Representative Goals Customer Support Representative Goals PT Customer Support Representative Goals Time Frame: October 01, 2017 Transfers (B,C,W/C) (FIM): 7 Gait (FIM): 7 Gait distance (FIM): 3=150 ft Gait Level of Assist: 7 Gait Assistive Device: None PT Plan Treatment/Plan Treatment Plan: Discontinue PT Treatment Plan: Education, Functional Activity [place], Functional Strength, Gait , Safety, Therapeutic Exercise, Transfers Treatment Duration: October 01, 2017 Frequency: 6 times per week Estimated Hrs Per Day: .25 hour per day Patient and/or Family Agrees t: Yes Time/GCodes Time In: 1005 Time Out: 1020 Total Billed Treatment Time: 15 Total Billed Treatment 1 visit FA 15 min JAYA GUERRERO PT September 23, 2017 10:55
--- NOTE | 2017-09-23 12:18 | D/C HH Face to Face Order ---
D/C Face to Face Orders Instructions for Patient Patient Instructions/FollowUp: home health to straight cath PVR daily and record amount Physician to follow Patient: Edwardo Discharge Diet for Home: Regular Diet Patient Problems: retention Goals for Patient: empty bladder Patient Data-Allergies,Ht & Wt Patient Allergies: Coded Allergies: amoxicillin (Verified Allergy, Intermediate, HIVES, 09/13/17) nitroglycerin (Verified Allergy, Mild, DECREASED BP, 09/13/17) Height (Feet): 5 Height (Inches): 11.00 Weight (Pounds): 187 Weight (Ounces): 6.0 Home Health Need/Face to Face Date of Face to Face: September 23, 2017 Clinical Findings: Other-list in note postop with retention I have seen Pt [id number]: Yes Discharged To: Home Diagnosis/Conditions: bladder cancer, gross hematuria and retention Patient is Homebound due to: Muscle weakness postop Homebound Status Due to the above stated illness, injury or surgical procedure (medical condition or diagnosis) and associated clinical findings, the patient is homebound because of his/her inability to leave home except with aid of a supportive device and/or person AND leaving the home requires a considerable and taxing effort or is medically contraindicated. Pt req the following assistanc: Aid of another person Home Health Nursing Orders Home Health Services Order: Nursing Services dialy vs Home Health Infusion Therapy Line Start Date: September 20, 2017 Line Start Time: 957 Line Type: Saline Lock Site Location: Forearm Certify Stmt I certify that this patient is under my care and that I, a nurse practitioner or a physician; a critical care physician assistant working with me, had a face to face encounter that - meets the physician face to face encounter requirements with this patient as dated. LANRE TALBERT MD September 23, 2017 12:17 pm
[2017-09-23] MEDS: ALPRAZolam 0.5 MG (XANAX) TAB PO PRN (12:50)
--- NOTE | 2017-09-23 13:56 | Cardiology Progress Note ---
Cardiology SOAP Progress Note Subjective: No Cardiac symptoms. Objective: I&O/Vital Signs 09/23/17 09/23/17 04:18 07:36 Temp 98.1 97.7 Pulse 67 71 Resp 17 20 B/P (MAP) 142/68 (92) 172/75 (107) Pulse Ox 93 94 O2 Delivery Room Air Room Air 09/23/17 00:00 Intake Total 2220 ml Output Total 300 ml Balance 1920 ml Weight (Pounds): 187 Weight (Ounces): 6.0 Weight (Calculated Kilograms): 84.274129 Constitutional: appears stated age, AAO x 3; No apparent distress; well- developed, well-nourished Respiratory: chest is bilaterally symmetric, lungs clear to auscultation Cardiovascular: regular rate-rhythm; No irregularly irregular, No extra beats, No parasternal heave is noted, No JVD, No edema, No bradycardia, No tachycardia , No point of maximal impulse, No cardiac thrills are palpable; S1 and S2; No gallop/S3, No gallop/S4, No diastolic murmur, No systolic murmur, No friction rub, No click, No other Gastrointestional: No tender, No soft, No round, No distended, No pulsatile mass, No organomegaly, No guarding, No rebound, No tenderness, No hernia, No mass, No audible bowel sounds, No abnormal bowel sounds, No abdominal bruits, No spleenomegaly, No other Extremities: No normal range of motion, No non-tender, No normal inspection, No pedal edema, No calf tenderness, No normal capillary refill, No pelvis stable , No calf tenderness, No inflammation, No pedal edema, No slow capillary refill , No swelling, No other, No abrasion, No clubbing, No cyanosis, No ecchymosis, No laceration, No no lower extremity edema bilateral, No significant edema, No tenderness, No wound Neurologic/Psychiatric: no motor/sensory deficits, alert, normal mood/affect, oriented x 3, power is 5/5 both on sides Skin: No normal color, No warm/dry, No cyanosis, No cool, No diaphoresis, No damp, No ecchymosis, No jaundice, No mottled, No pallor, No rash, No tattoos/ piercings, No ulcerations, No rash on exposed areas, No ulcerations on exposed areas, No other Results/Procedures: Labs Laboratory Tests 09/23/17 05:15: White Blood Count 7.5, Red Blood Count 3.61L, Hemoglobin 10.0L, Hematocrit 31L, Mean Corpuscular Volume 85, Mean Corpuscular Hemoglobin 28, Mean Corpuscular Hemoglobin Concent 33, Red Cell Distribution Width 17.0H, Platelet Count 312, Mean Platelet Volume 11.4H, Neutrophils (%) (Auto) 65, Lymphocytes (%) (Auto) 19 , Monocytes (%) (Auto) 11, Eosinophils (%) (Auto) 5, Basophils (%) (Auto) 0, Neutrophils # (Auto) 4.9, Lymphocytes # (Auto) 1.4, Monocytes # (Auto) 0.8, Eosinophils # (Auto) 0.4H, Basophils # (Auto) 0.0, Sodium Level 142, Potassium Level 3.5L, Chloride Level 109H, Carbon Dioxide Level 22, Anion Gap 11, Blood Urea Nitrogen 29H, Creatinine 1.48H, Estimat Glomerular Filtration Rate 46, BUN/ Creatinine Ratio 20, Glucose Level 107H, Calcium Level 8.2L, Total Bilirubin 0.8 , Aspartate Amino Transf (AST/SGOT) 36H, Alanine Aminotransferase (ALT/SGPT) 34 , Alkaline Phosphatase 51, Total Protein 5.7L, Albumin 3.0L Microbiology 09/20/17 MRSA Screen - Final, Complete MRSA not isolated A/P: Assessment/Dx: Gross hematuria, Anemia, Bladder mass, Right lung mass, Atrial fibrillation, CAD, status post CABG, Carotid arterial disease, Active smoking, DESI, Preoperative cardiovascular risk assessment Plan: Gross hematuria, could be secondary to the bladder mass. Bladder surgery this morning with Dr. Brooke. Tumor biopsy sent for pathology will be available on . Anemia, hemoglobin over 10. Bladder mass, likely cause of hematuria. See above. Right lung mass, unclear etiology. Dr. Ramirez following. Atrial fibrillation, on warfarin with subtherapeutic INR. INR 1.7. Restart warfarin. CAD, status post CABG, no active issues. Discharge on aspirin. Carotid arterial disease, stable area did no active issues. Active smoking, smoking cessation is recommended. DESI, likely secondary to post renal obstruction. Intrinsic renal disease cannot be ruled out. Nephrology referral as outpatient. Can set up with Dr Alise Gonzalez in [place]. Complicated medical issues as above. Once the patient is ready for discharge, follow with outpatient nuclear weapons custodian. Thank you for your consultation. Please call me if you have any questions. Liban Gonzalez MD, FACP, FACC, FSCAI, FHRS, CCDS Interventional Cardiology Cardiac Electrophysiology Vascular Medicine and Endovascular Interventions Charles GONZALEZ MD September 23, 2017 1:56 pm
--- NOTE | 2017-09-30 08:59 | Physician Query Clarification ---
PQ-Further Specificity Admission/Discharge Admission Date: September 13, 2017 at 12:03 Discharge Date: September 23, 2017 at 14:42 The medical record reflects the following clinical scenario: History/Risk Factors: Neoplasm of unspecified behavior of the bladder Clinical Findings: Per path report: invasive papillary urothelial carcinoma Treatment: Question: Can you further specify neoplasm of unspecified behavior of the bladder per the clinical indicators above? Please document below. 1. papillary urothelial carcinoma of the bladder 2. neoplasm of unspecified behavior of the bladder 3. Other, with explanation of the clinical findings. 4. Clinically undetermined, no explanation for the clinical findings. PHYSICIAN RESPONSE Can you specify per above: Clinically undetermined In responding to this query, please exercise your independent professional judgment. The purpose of this communication is to more accurately reflect the complexity of your patients condition. The fact that a question is asked does not imply that any particular answer is desired or expected. Thank you for your timely response to this clarification. Requestors name: Shara Walter THIS PHYSICIAN QUERY FORM IS A PERMANENT PART OF THE MEDICAL RECORD ALIX WALTER September 30, 2017 08:59 CAREY CHOWDHURY MD October 01, 2017 15:20
== END 2017-09-23 14:42 | disposition home health service (06) | DRG 669 ==
LOC: 4TH 12:03
PROVIDERS: ADMIT Family Medicine; ATTEND Family Medicine
PROC: 0TBB8ZX Excision of Bladder, Via Natural or Artificial Opening Endoscopic, Diagnostic (ICD-10-PCS; principal; 2017-09-21 07:34)
DX: D49.4 Neoplasm of unspecified behavior of bladder (principal); N13.30 Unspecified hydronephrosis; N17.9 Acute kidney failure, unspecified; R31.0 Gross hematuria; R33.9 Retention of urine, unspecified; I12.9 Hypertensive chronic kidney disease with stage 1 through stage 4 chronic kidney disease, or unspecified chronic kidney disease; N18.4 Chronic kidney disease, stage 4 (severe); R91.8 Other nonspecific abnormal finding of lung field; D50.0 Iron deficiency anemia secondary to blood loss (chronic); N40.0 Benign prostatic hyperplasia without lower urinary tract symptoms; I48.0 Paroxysmal atrial fibrillation; I25.10 Atherosclerotic heart disease of native coronary artery without angina pectoris; I73.9 Peripheral vascular disease, unspecified; G62.9 Polyneuropathy, unspecified; K80.20 Calculus of gallbladder without cholecystitis without obstruction; K44.9 Diaphragmatic hernia without obstruction or gangrene; K57.90 Diverticulosis of intestine, part unspecified, without perforation or abscess without bleeding; I65.29 Occlusion and stenosis of unspecified carotid artery; F17.290 Nicotine dependence, other tobacco product, uncomplicated; K59.00 Constipation, unspecified; Z79.01 Long term (current) use of anticoagulants; Z77.29 Contact with and (suspected) exposure to other hazardous substances; Z95.1 Presence of aortocoronary bypass graft
CPT/HCPCS: 36415; 71046; 71250; 74176; 80053; 82274; 83735; 84100; 85007; 85014; 85018; 85025; 85027; 85610; 86850; 86900; 86901; 86920; 87081; 88307; 94664

== ENCOUNTER → 2017-09-28 | Outpatient (CLI) | payer MEDICARE, OTHER ==
[~2017-09-28] MED LIST changes: +ALPR0.5T7 PO; +AMLO10TA2 PO; +ASPI-983 PO; +ATOR80TA76 PO; +BUME2TAB3 PO; +CARV25TA PO; +CHOL400C9 PO; +CIPR500T4 PO; +FENO145T37 PO; +FURO20TA4 PO; +LACT1CAP39 PO; +MELA1TAB27 PO; +MENT113P TP; +MULT-1029 PO; +OMEG-160 PO; +OMEG-9 PO; +POLY17PO6 PO; +POTA10TA36 PO; +TAMS0.4C2 PO; +VALS320T14 PO; +WARF-48 PO
--- NOTE | 2017-09-28 13:51 | Diagnostic Imaging Report ---
INDICATION: Right lung mass as well as questionable bladder tumor. TECHNIQUE: Serum blood glucose level at the time of injection is 140 mg/dL. The patient was administered 12.7 mCi of F-18 FDG intravenously, administered in the left forearm and PET imaging was performed from the top of the skull through the mid thighs. Noncontrast CT was also performed for attenuation correction and anatomic correlation. COMPARISON: Correlation is made with the recent CT chest, abdomen, and pelvis study from 09/13/2017. FINDINGS: There is symmetric metabolism throughout the brain. The soft tissues of the neck are unremarkable. Imaging through the chest does show hypermetabolism in the recently described mass in the right upper lobe which shows an SUV max of approximately 5. This does correspond to the lobulated 2.7 cm density. There is also intense hypermetabolism in the right hilum with SUV max of approximately 10.5. This does correspond to some soft tissue density at this location measuring approximately 3.9 cm. The left hilum and left pulmonary parenchyma are without evidence of hypermetabolism. No mediastinal hypermetabolism is seen. Physiologic activity within the liver and spleen as well as the genitourinary and GI tracts is noted. There is normal excretion of activity into the ureters and urinary bladder therefore evaluation for bladder neoplasm could not be performed. No definite hypermetabolic abdominal or pelvic lymphadenopathy is seen. Hydronephrosis on the left is again noted correlating with the recent CT. 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 No other suspicious regions of hypermetabolism are identified. Dictated by: Dictated on workstation # [id number]
== END ==
LOC: RAD 08:37
PROVIDERS: ATTEND Family Medicine
DX: R91.8 Other nonspecific abnormal finding of lung field (principal); D49.4 Neoplasm of unspecified behavior of bladder

== ENCOUNTER 2017-10-05 06:10 | Outpatient (CLI) | payer MEDICARE, OTHER ==
[~2017-10-05] VITALS: Ht 180.3 cm; Wt 78.9 kg
== END 2017-10-05 10:00 ==
LOC: PREOP 06:10
PROVIDERS: ATTEND Internal Medicine Critical Care Medicine
DX: Z01.818 Encounter for other preprocedural examination (principal); C67.2 Malignant neoplasm of lateral wall of bladder; R91.8 Other nonspecific abnormal finding of lung field

== ENCOUNTER 2017-10-06 06:58 | Day surgery (SDC) | payer MEDICARE, OTHER ==
[~2017-10-06] VITALS: Ht 180.3 cm; Wt 78.9 kg
[2017-10-06] MEDS ORDERED: LIDOCAINE PF 1% 2 ML AMP IJ ONE (06:59)
[2017-10-06] MEDS ORDERED: LIDOCAINE JELLY 2% (XYLOCAINE) 30 ML TUBE TOP ONE (06:59)
[2017-10-06] MEDS ORDERED: LIDOCAINE 4% INJ (XYLOCAINE) 5ML AMP INJ ONE (06:59)
[2017-10-06] MEDS ORDERED: LACTATED RINGERS 1,000 ML IV ONE (07:04)
[2017-10-06 07:10] VITALS: BP 112/61
[2017-10-06] MEDS ORDERED: LACTATED RINGERS 1,000 ML IV PRN (07:15)
[2017-10-06] MEDS ORDERED: proPOfol 200 MG/20 ML (DIPRIVAN) VIAL IV ONE (07:23)
[2017-10-06] MEDS ORDERED: fentaNYL INJECTION 100 MCG/2 ML AMP ONE (07:23)
[2017-10-06] MEDS ORDERED: ROCURONIUM 10 MG/ML 5 ML SYRINGE IV ONE (07:23)
[2017-10-06] MEDS ORDERED: SUCCINYLCHOLINE INJ 100 MG/5 ML SYR ONE (07:23)
[2017-10-06] MEDS ORDERED: LIDOCAINE JELLY 2% (XYLOCAINE) 5 ML TUBE ONE (07:23)
[2017-10-06] MEDS ORDERED: LIDOCAINE PF 2% 5 ML (XYLOCAINE) VIAL ONE (07:23)
[2017-10-06] MEDS ORDERED: ONDANSETRON 4 MG/2 ML (SDV) Z0FRAN ONE (07:23)
[2017-10-06] MEDS ORDERED: MIDAZOLAM 2 MG/2 ML (VERSED) VIAL ONE (07:24)
--- OUTSIDE RECORDS SUMMARY | 2017-10-06 07:29 | XMS REPORT | Continuity of Care Document ---
Author Author [facility] Organization [facility] Address Unknown Phone Unavailable Allergies Active Description Code Type Severity Reaction Onset Reported/Identified Relationship to Patient Clinical Status Yes amoxicillin [id number] Drug Allergy Moderate HIVES 09/13/2017 Yes nitroglycerin [id number] Drug Allergy Mild DECREASED BP 09/13/2017 Medications There is no data. Problems Date [...] Ot V45.81 AORTOCORONARY BYPASS 01/01/2015 ANTONY PINEDA [employer] Ot 719.06 01/04/2015 ANTONY PINEDA [employer]LLER Ot 719.06 01/04/2015 ANTONY PINEDA [employer]LLER Ot 719.06 01/17/2015 ANTONY PINEDA [employer]LLER Ot 719.06 01/24/2015 ANTONY PINEDA [employer]ER Ot 719.06 03/05/2015 Ot J18.9 03/14/2015 Ot [...] NOS 04/22/2017 Ot 786.2 COUGH 04/22/2017 CAREY CHOWDHURY MD Ot 458.9 HYPOTENSION NOS 04/22/2017 CAREY [...] HYPERPLASIA WITHOUT LOW 05/19/2017 GALI MACKENZIE, LANRE A Ot R31.9 HEMATURIA, UNSPECIFIED 09/13/2017 Ot 429.3 CARDIOMEGALY 09/13/2017 Ot 486 PNEUMONIA, ORGANISM NOS 09/13/2017 Ot 786.2 COUGH 09/13/2017 LUCIANA MACKENZIE, CAREY Torres Ot 458.9 HYPOTENSION NOS 09/13/2017 LUCIANA MACKENZIE, CAREY Torres Ot 789.00 ABDOMINAL PAIN, UNSPECIFIED SITE 09/13/2017 ANTONY PINEDA [employer] Ot 719.06 JOINT EFFUSION-L/LEG 09/13/2017 Ot J18.9 PNEUMONIA, UNSPECIFIED ORGANISM 09/13/2017 LUCIANA MACKENZIE, CAREY Torres Ot M54.5 LOW BACK PAIN 09/13/2017 GALI MACKENZIE, LANRE Torres Ot N40.0 BENIGN PROSTATIC HYPERPLASIA WITHOUT LOW 09/13/2017 LANRE TALBERT MD Ot R31.9 HEMATURIA, UNSPECIFIED 09/15/2017 CAREY CHOWDHURY MD Ot 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 09/15/2017 CAREY CHOWDHURY MD Ot D50.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 09/15/2017 CAREY CHOWDHURY MD Ot I10 ESSENTIAL (PRIMARY) HYPERTENSION 09/15/2017 CAREY CHOWDHURY MD Ot N13.30 UNSPECIFIED HYDRONEPHROSIS 09/15/2017 CAREY CHOWDHURY MD Ot N17.9 ACUTE KIDNEY FAILURE, UNSPECIFIED 09/15/2017 CAREY CHOWDHURY MD Ot R31.0 GROSS HEMATURIA 09/15/2017 CAREY CHOWDHURY MD Ot R33.9 RETENTION OF URINE, UNSPECIFIED 09/15/2017 CAREY CHOWDHURY MD Ot R91.8 OTHER NONSPECIFIC ABNORMAL FINDING OF [place]ICK[place] 09/15/2017 CAREY CHOWDHURY MD Ot Z79.01 HALFWAY (CURRENT) USE OF ANTICOAGULANT 09/16/2017 CAREY CHOWDHURY MD Ot D49.1 NEOPLASM OF UNSPECIFIED BEHAVIOR OF RESP 09/16/2017 CAREY CHOWDHURY MD Ot 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 09/16/2017 CAREY CHOWDHURY MD Ot D50.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 09/16/2017 CAREY CHOWDHURY MD Ot F17.290 NICOTINE DEPENDENCE, OTHER TOBACCO PRODU 09/16/2017 CAREY CHOWDHURY MD Ot G62.9 POLYNEUROPATHY, UNSPECIFIED 09/16/2017 CAREY CHOWDHURY MD Ot I10 ESSENTIAL (PRIMARY) HYPERTENSION 09/16/2017 CAREY CHOWDHURY MD Ot I25.10 ATHSCL HEART DISEASE OF [place] CORONARY 09/16/2017 CAREY CHOWDHURY MD Ot I48.0 PAROXYSMAL ATRIAL FIBRILLATION 09/16/2017 CAREY CHOWDHURY MD Ot I73.9 PERIPHERAL VASCULAR DISEASE, UNSPECIFIED 09/16/2017 CAREY CHOWDHURY MD Ot K44.9 DIAPHRAGMATIC HERNIA WITHOUT OBSTRUCTION 09/16/2017 CAREY CHOWDHURY MD Ot K57.90 DVRTCLOS OF INTEST, PART UNSP, W/O PERF 09/16/2017 CAREY CHOWDHURY MD Ot K80.20 CALCULUS OF GALLBLADDER W/O CHOLECYSTITI 09/16/2017 CAREY CHOWDHURY MD Ot N13.30 UNSPECIFIED HYDRONEPHROSIS 09/16/2017 CAREY CHOWDHURY MD, Ot N17.9 ACUTE KIDNEY FAILURE, UNSPECIFIED 09/16/2017 CAREY CHOWDHURY MD Ot N40.0 BENIGN PROSTATIC HYPERPLASIA WITHOUT LOW 09/16/2017 CAREY CHOWDHURY MD Ot R31.0 GROSS HEMATURIA 09/16/2017 CAREY CHOWDHURY MD, Ot R33.9 RETENTION OF URINE, UNSPECIFIED 09/16/2017 CAREY CHOWDHURY MD Ot Z77.29 CONTACT W AND (SUSPECTED ) EXPOSURE TO O 09/16/2017 CAREY CHOWDHURY MD Ot Z79.01 HALFWAY (CURRENT) USE OF ANTICOAGULANT 09/16/2017 CAREY CHOWDHURY MD Ot Z95.1 PRESENCE OF AORTOCORONARY BYPASS GRAFT 09/17/2017 CAREY CHOWDHURY MD Ot D49.1 NEOPLASM OF UNSPECIFIED BEHAVIOR OF RESP 09/17/2017 CAREY CHOWDHURY MD Ot 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 09/17/2017 CAREY CHOWDHURY MD Ot D50.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 09/17/2017 CAREY CHOWDHURY MD Ot F17.290 NICOTINE DEPENDENCE, OTHER TOBACCO PRODU 09/17/2017 CAREY CHOWDHURY MD Ot G62.9 POLYNEUROPATHY, UNSPECIFIED 09/17/2017 CAREY CHOWDHURY MD Ot I10 ESSENTIAL (PRIMARY) HYPERTENSION 09/17/2017 CAREY CHOWDHURY MD Ot I25.10 ATHSCL HEART DISEASE OF [place] CORONARY 09/17/2017 CAREY CHOWDHURY MD Ot I48.0 PAROXYSMAL ATRIAL FIBRILLATION 09/17/2017 CAREY CHOWDHURY MD Ot I73.9 PERIPHERAL VASCULAR DISEASE, UNSPECIFIED 09/17/2017 CAREY CHOWDHURY MD Ot K44.9 DIAPHRAGMATIC HERNIA WITHOUT OBSTRUCTION 09/17/2017 CAREY CHOWDHURY MD Ot K57.90 DVRTCLOS OF INTEST, PART UNSP, W/O PERF 09/17/2017 CAREY CHOWDHURY MD Ot K80.20 CALCULUS OF GALLBLADDER W/O CHOLECYSTITI 09/17/2017 CAREY CHOWDHURY MD Ot N13.30 UNSPECIFIED HYDRONEPHROSIS 09/17/2017 CAREY CHOWDHUYR MD Ot N17.9 ACUTE KIDNEY FAILURE, UNSPECIFIED 09/17/2017 CRAEY CHOWDHURY MD Ot N40.0 BENIGN PROSTATIC HYPERPLASIA WITHOUT LOW 09/17/2017 CAREY CHOWDHURY MD Ot R31.0 GROSS HEMATURIA 09/17/2017 CAREY CHOWDHURY MD Ot R33.9 RETENTION OF URINE, UNSPECIFIED 09/17/2017 CAREY CHOWDHURY MD Ot Z77.29 CONTACT W AND (SUSPECTED ) EXPOSURE TO O 09/17/2017 CAREY CHOWDHURY MD Ot Z79.01 HALFWAY (CURRENT) USE OF ANTICOAGULANT 09/17/2017 CAREY CHOWDHURY MD Ot Z95.1 PRESENCE OF AORTOCORONARY BYPASS GRAFT 09/18/2017 CAREY CHOWDHURY MD Ot D49.1 NEOPLASM OF UNSPECIFIED BEHAVIOR OF RESP 09/18/2017 CAREY CHOWDHURY MD Ot 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 09/18/2017 CAREY CHOWDHURY MD Ot D50.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 09/18/2017 CAREY CHOWDHURY MD Ot F17.290 NICOTINE DEPENDENCE, OTHER TOBACCO PRODU 09/18/2017 CAREY CHOWDHURY MD Ot G62.9 POLYNEUROPATHY, UNSPECIFIED 09/18/2017 CAREY CHOWDHURY MD Ot I10 ESSENTIAL (PRIMARY) HYPERTENSION 09/18/2017 CAREY CHOWDHURY MD Ot I25.10 ATHSCL HEART DISEASE OF [place] CORONARY 09/18/2017 CAREY CHOWDHURY MD Ot I48.0 PAROXYSMAL ATRIAL FIBRILLATION 09/18/2017 CAREY CHOWDHURY MD Ot I65.29 OCCLUSION AND STENOSIS OF UNSPECIFIED CA 09/18/2017 CAREY CHOWDHURY MD Ot I73.9 PERIPHERAL VASCULAR DISEASE, UNSPECIFIED 09/18/2017 CAREY CHOWDHURY MD Ot K44.9 DIAPHRAGMATIC HERNIA WITHOUT OBSTRUCTION 09/18/2017 CAREY CHOWDHURY MD Ot K57.90 DVRTCLOS OF INTEST, PART UNSP, W/O PERF 09/18/2017 CAREY CHOWDHURY MD Ot K80.20 CALCULUS OF GALLBLADDER W/O CHOLECYSTITI 09/18/2017 CAREY CHOWDHURY MD Ot N13.30 UNSPECIFIED HYDRONEPHROSIS 09/18/2017 CAREY CHOWDHURY MD Ot N17.9 ACUTE KIDNEY FAILURE, UNSPECIFIED 09/18/2017 CAREY CHOWDHURY MD Ot N40.0 BENIGN PROSTATIC HYPERPLASIA WITHOUT LOW 09/18/2017 CAREY CHOWDHURY MD Ot R31.0 GROSS HEMATURIA 09/18/2017 CAREY CHOWDHURY MD, Ot R33.9 RETENTION OF URINE, UNSPECIFIED 09/18/2017 CAREY CHOWDHURY MD Ot Z77.29 CONTACT W AND (SUSPECTED ) EXPOSURE TO O 09/18/2017 CAREY CHOWDHURY MD Ot Z79.01 [employer] (CURRENT) USE OF ANTICOAGULANT 09/18/2017 CAREY CHOWDHURY MD Ot Z95.1 PRESENCE OF AORTOCORONARY BYPASS GRAFT 09/19/2017 CAREY CHOWDHURY MD, Ot D49.1 NEOPLASM OF UNSPECIFIED BEHAVIOR OF RESP 09/19/2017 LUCIANA MD, CAREY A Ot 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 09/19/2017 CAREY CHOWDHURY MD Ot D50.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 09/19/2017 CAREY CHOWDHURY MD Ot F17.290 NICOTINE DEPENDENCE, OTHER TOBACCO PRODU 09/19/2017 CAREY CHOWDHURY MD Ot G62.9 POLYNEUROPATHY, UNSPECIFIED 09/19/2017 CAREY CHOWDHURY MD Ot I10 ESSENTIAL (PRIMARY) HYPERTENSION 09/19/2017 CAREY CHOWDHURY MD Ot I25.10 ATHSCL HEART DISEASE OF [place] CORONARY 09/19/2017 CAREY CHOWDHURY MD Ot I48.0 PAROXYSMAL ATRIAL FIBRILLATION 09/19/2017 CAREY CHOWDHURY MD Ot I65.29 OCCLUSION AND STENOSIS OF UNSPECIFIED CA 09/19/2017 CAREY CHOWDHURY MD Ot I73.9 PERIPHERAL VASCULAR DISEASE, UNSPECIFIED 09/19/2017 CAREY CHOWDHURY MD Ot K44.9 DIAPHRAGMATIC HERNIA WITHOUT OBSTRUCTION 09/19/2017 CAREY CHOWDHURY MD Ot K57.90 DVRTCLOS OF INTEST, PART UNSP, W/O PERF 09/19/2017 CAREY CHOWDHURY MD Ot K80.20 CALCULUS OF GALLBLADDER W/O CHOLECYSTITI 09/19/2017 CAREY CHOWDHURY MD Ot N13.30 UNSPECIFIED HYDRONEPHROSIS 09/19/2017 CAREY CHOWDHURY MD Ot N17.9 ACUTE KIDNEY FAILURE, UNSPECIFIED 09/19/2017 CAREY CHOWDHURY MD Ot N40.0 BENIGN PROSTATIC HYPERPLASIA WITHOUT LOW 09/19/2017 CAREY CHOWDHURY MD Ot R31.0 GROSS HEMATURIA 09/19/2017 CAREY CHOWDHURY MD, Ot R33.9 RETENTION OF URINE, UNSPECIFIED 09/19/2017 CAREY CHOWDHURY MD Ot Z77.29 CONTACT W AND (SUSPECTED ) EXPOSURE TO O 09/19/2017 CAREY CHOWDHURY MD Ot Z79.01 HALFWAY (CURRENT) USE OF ANTICOAGULANT 09/19/2017 CAREY CHOWDHURY MD Ot Z95.1 PRESENCE OF AORTOCORONARY BYPASS GRAFT 09/20/2017 CAREY CHOWDHURY MD Ot D49.1 NEOPLASM OF UNSPECIFIED BEHAVIOR OF RESP 09/20/2017 LUCIANA MD, CAREY A Ot 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 09/20/2017 CAREY CHOWDHURY MD Ot D50.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 09/20/2017 CAREY CHOWDHURY MD Ot F17.290 NICOTINE DEPENDENCE, OTHER TOBACCO PRODU 09/20/2017 CAREY CHOWDHURY MD Ot G62.9 POLYNEUROPATHY, UNSPECIFIED 09/20/2017 CAREY CHOWDHURY MD Ot I10 ESSENTIAL (PRIMARY) HYPERTENSION 09/20/2017 CAREY CHOWDHURY MD Ot I25.10 ATHSCL HEART DISEASE OF [place] CORONARY 09/20/2017 CAREY CHOWDHURY MD Ot I48.0 PAROXYSMAL ATRIAL FIBRILLATION 09/20/2017 CAREY CHOWDHURY MD Ot I65.29 OCCLUSION AND STENOSIS OF UNSPECIFIED CA 09/20/2017 CAREY CHOWDHURY MD Ot I73.9 PERIPHERAL VASCULAR DISEASE, UNSPECIFIED 09/20/2017 CAREY CHOWDHURY MD Ot K44.9 DIAPHRAGMATIC HERNIA WITHOUT OBSTRUCTION 09/20/2017 CAREY CHOWDHURY MD Ot K57.90 DVRTCLOS OF INTEST, PART UNSP, W/O PERF 09/20/2017 CAREY CHOWDHURY MD Ot K80.20 CALCULUS OF GALLBLADDER W/O CHOLECYSTITI 09/20/2017 CAREY CHOWDHURY MD Ot N13.30 UNSPECIFIED HYDRONEPHROSIS 09/20/2017 CAREY CHOWDHURY MD Ot N17.9 ACUTE KIDNEY FAILURE, UNSPECIFIED 09/20/2017 CAREY CHOWDHURY MD Ot N40.0 BENIGN PROSTATIC HYPERPLASIA WITHOUT LOW 09/20/2017 CAREY CHOWDHURY MD Ot R31.0 GROSS HEMATURIA 09/20/2017 CAREY CHOWDHURY MD, Ot R33.9 RETENTION OF URINE, UNSPECIFIED 09/20/2017 CAREY CHOWDHURY MD Ot Z77.29 CONTACT W AND (SUSPECTED ) EXPOSURE TO O 09/20/2017 CAREY CHOWDHURY MD Ot Z79.01 [employer] (CURRENT) USE OF ANTICOAGULANT 09/20/2017 CAREY CHOWDHURY MD Ot Z95.1 PRESENCE OF AORTOCORONARY BYPASS GRAFT 09/21/2017 CAREY CHOWDHURY MD Ot D49.1 NEOPLASM OF UNSPECIFIED BEHAVIOR OF RESP 09/21/2017 LUCIANA MD, CAREY A Ot 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 09/21/2017 CAREY CHOWDHURY MD Ot D50.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 09/21/2017 CAREY CHOWDHURY MD Ot F17.290 NICOTINE DEPENDENCE, OTHER TOBACCO PRODU 09/21/2017 CAREY CHOWDHURY MD Ot G62.9 POLYNEUROPATHY, UNSPECIFIED 09/21/2017 CAREY CHOWDHURY MD Ot I10 ESSENTIAL (PRIMARY) HYPERTENSION 09/21/2017 CAREY CHOWDHURY MD Ot I25.10 ATHSCL HEART DISEASE OF [place] CORONARY 09/21/2017 CAREY CHOWDHURY MD Ot I48.0 PAROXYSMAL ATRIAL FIBRILLATION 09/21/2017 CAREY CHOWDHURY MD Ot I65.29 OCCLUSION AND STENOSIS OF UNSPECIFIED CA 09/21/2017 CAREY CHOWDHURY MD Ot I73.9 PERIPHERAL VASCULAR DISEASE, UNSPECIFIED 09/21/2017 CAREY CHOWDHURY MD Ot K44.9 DIAPHRAGMATIC HERNIA WITHOUT OBSTRUCTION 09/21/2017 CAREY CHOWDHURY MD Ot K57.90 DVRTCLOS OF INTEST, PART UNSP, W/O PERF 09/21/2017 CAREY CHOWDHURY MD Ot K80.20 CALCULUS OF GALLBLADDER W/O CHOLECYSTITI 09/21/2017 CAREY CHOWDHURY MD Ot N13.30 UNSPECIFIED HYDRONEPHROSIS 09/21/2017 CAREY CHOWDHURY MD Ot N17.9 ACUTE KIDNEY FAILURE, UNSPECIFIED 09/21/2017 CAREY CHOWDHURY MD Ot N40.0 BENIGN PROSTATIC HYPERPLASIA WITHOUT LOW 09/21/2017 CAREY CHOWDHURY MD Ot R31.0 GROSS HEMATURIA 09/21/2017 CAREY CHOWDHURY MD, Ot R33.9 RETENTION OF URINE, UNSPECIFIED 09/21/2017 CAREY CHOWDHURY MD, Ot Z77.29 CONTACT W AND (SUSPECTED ) EXPOSURE TO O 09/21/2017 CAREY CHOWDHURY MD Ot Z79.01 [employer] (CURRENT) USE OF ANTICOAGULANT 09/21/2017 CAREY CHOWDHURY MD Ot Z95.1 PRESENCE OF AORTOCORONARY BYPASS GRAFT 09/22/2017 CAREY CHOWDHURY MD Ot D49.1 NEOPLASM OF UNSPECIFIED BEHAVIOR OF RESP 09/22/2017 LUCIANA MD, CAREY A Ot 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 09/22/2017 CAREY CHOWDHURY MD Ot D50.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 09/22/2017 CAREY CHOWDHURY MD Ot F17.290 NICOTINE DEPENDENCE, OTHER TOBACCO PRODU 09/22/2017 CAREY CHOWDHURY MD Ot G62.9 POLYNEUROPATHY, UNSPECIFIED 09/22/2017 CAREY CHOWDHURY MD Ot I10 ESSENTIAL (PRIMARY) HYPERTENSION 09/22/2017 CAREY CHOWDHURY MD Ot I25.10 ATHSCL HEART DISEASE OF [place] CORONARY 09/22/2017 CAREY CHOWDHURY MD Ot I48.0 PAROXYSMAL ATRIAL FIBRILLATION 09/22/2017 CAREY CHOWDHURY MD Ot I65.29 OCCLUSION AND STENOSIS OF UNSPECIFIED CA 09/22/2017 CAREY CHOWDHURY MD Ot I73.9 PERIPHERAL VASCULAR DISEASE, UNSPECIFIED 09/22/2017 CAREY CHOWDHURY MD Ot K44.9 DIAPHRAGMATIC HERNIA WITHOUT OBSTRUCTION 09/22/2017 CAREY CHOWDHURY MD Ot K57.90 DVRTCLOS OF INTEST, PART UNSP, W/O PERF 09/22/2017 CAREY CHOWDHURY MD Ot K80.20 CALCULUS OF GALLBLADDER W/O CHOLECYSTITI 09/22/2017 CAREY CHOWDHURY MD Ot N13.30 UNSPECIFIED HYDRONEPHROSIS 09/22/2017 CAREY CHOWDHURY MD Ot N17.9 ACUTE KIDNEY FAILURE, UNSPECIFIED 09/22/2017 CAREY CHOWDHURY MD Ot N40.0 BENIGN PROSTATIC HYPERPLASIA WITHOUT LOW 09/22/2017 CAREY CHOWDHURY MD Ot R31.0 GROSS HEMATURIA 09/22/2017 CAREY CHOWDHURY MD, Ot R33.9 RETENTION OF URINE, UNSPECIFIED 09/22/2017 CAREY CHOWDHURY MD Ot Z77.29 CONTACT W AND (SUSPECTED ) EXPOSURE TO O 09/22/2017 CAREY CHOWDHURY MD Ot Z79.01 [employer] (CURRENT) USE OF ANTICOAGULANT 09/22/2017 CAREY CHOWDHURY MD Ot Z95.1 PRESENCE OF AORTOCORONARY BYPASS GRAFT 09/22/2017 CAREY CHOWDHURY MD Ot D49.1 NEOPLASM OF UNSPECIFIED BEHAVIOR OF RESP 09/22/2017 LUCIANA MD, CAREY A Ot 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 09/22/2017 CAREY CHOWDHURY MD Ot D50.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 09/22/2017 CAREY CHOWDHURY MD Ot F17.290 NICOTINE DEPENDENCE, OTHER TOBACCO PRODU 09/22/2017 CAREY CHOWDHURY MD Ot G62.9 POLYNEUROPATHY, UNSPECIFIED 09/22/2017 CAREY CHOWDHURY MD Ot I10 ESSENTIAL (PRIMARY) HYPERTENSION 09/22/2017 CAREY CHOWDHURY MD Ot I25.10 ATHSCL HEART DISEASE OF [place] CORONARY 09/22/2017 CAREY CHOWDHURY MD Ot I48.0 PAROXYSMAL ATRIAL FIBRILLATION 09/22/2017 CAREY CHOWDHURY MD Ot I65.29 OCCLUSION AND STENOSIS OF UNSPECIFIED CA 09/22/2017 CAREY CHOWDHURY MD Ot I73.9 PERIPHERAL VASCULAR DISEASE, UNSPECIFIED 09/22/2017 CAREY CHOWDHURY MD Ot K44.9 DIAPHRAGMATIC HERNIA WITHOUT OBSTRUCTION 09/22/2017 CAREY CHOWDHURY MD Ot K57.90 DVRTCLOS OF INTEST, PART UNSP, W/O PERF 09/22/2017 CAREY CHOWDHURY MD Ot K80.20 CALCULUS OF GALLBLADDER W/O CHOLECYSTITI 09/22/2017 CAREY CHOWDHURY MD Ot N13.30 UNSPECIFIED HYDRONEPHROSIS 09/22/2017 CAREY CHOWDHURY MD Ot N17.9 ACUTE KIDNEY FAILURE, UNSPECIFIED 09/22/2017 CAREY CHOWDHURY MD Ot N40.0 BENIGN PROSTATIC HYPERPLASIA WITHOUT LOW 09/22/2017 CAREY CHOWDHURY MD Ot R31.0 GROSS HEMATURIA 09/22/2017 CAREY CHOWDHURY MD, Ot R33.9 RETENTION OF URINE, UNSPECIFIED 09/22/2017 CAREY CHOWDHURY MD Ot Z77.29 CONTACT W AND (SUSPECTED ) EXPOSURE TO O 09/22/2017 CAREY CHOWDHURY MD Ot Z79.01 [employer] (CURRENT) USE OF ANTICOAGULANT 09/22/2017 CAREY CHOWDHURY MD Ot Z95.1 PRESENCE OF AORTOCORONARY BYPASS GRAFT 09/23/2017 CAREY CHOWDHURY MD Ot D49.1 NEOPLASM OF UNSPECIFIED BEHAVIOR OF RESP 09/23/2017 CAREY CHOWDHURY MD Ot 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 09/23/2017 CAREY CHOWDHURY MD Ot D50.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 09/23/2017 CAREY CHOWDHURY MD Ot F17.290 NICOTINE DEPENDENCE, OTHER TOBACCO PRODU 09/23/2017 CAREY CHOWDHURY MD Ot G62.9 POLYNEUROPATHY, UNSPECIFIED 09/23/2017 CAREY CHOWDHURY MD Ot I10 ESSENTIAL (PRIMARY) HYPERTENSION 09/23/2017 CAREY CHOWDHURY MD Ot I25.10 ATHSCL HEART DISEASE OF [place] CORONARY 09/23/2017 CAREY CHOWDHURY MD Ot I48.0 PAROXYSMAL ATRIAL FIBRILLATION 09/23/2017 CAREY CHOWDHURY MD Ot I65.29 OCCLUSION AND STENOSIS OF UNSPECIFIED CA 09/23/2017 CAREY CHOWDHURY MD Ot I73.9 PERIPHERAL VASCULAR DISEASE, UNSPECIFIED 09/23/2017 CAREY CHOWDHURY MD Ot K44.9 DIAPHRAGMATIC HERNIA WITHOUT OBSTRUCTION 09/23/2017 CAREY CHOWDHURY MD Ot K57.90 DVRTCLOS OF INTEST, PART UNSP, W/O PERF 09/23/2017 CAREY CHOWDHURY MD Ot K80.20 CALCULUS OF GALLBLADDER W/O CHOLECYSTITI 09/23/2017 CAREY CHOWDHURY MD Ot N13.30 UNSPECIFIED HYDRONEPHROSIS 09/23/2017 CAREY CHOWDHURY MD Ot N17.9 ACUTE KIDNEY FAILURE, UNSPECIFIED 09/23/2017 CAREY CHOWDHURY MD Ot N40.0 BENIGN PROSTATIC HYPERPLASIA WITHOUT LOW 09/23/2017 CAREY CHOWDHURY MD Ot R31.0 GROSS HEMATURIA 09/23/2017 CAREY CHOWDHURY MD Ot R33.9 RETENTION OF URINE, UNSPECIFIED 09/23/2017 CAREY CHOWDHURY MD Ot Z77.29 CONTACT W AND (SUSPECTED ) EXPOSURE TO O 09/23/2017 CAREY CHOWDHURY MD Ot Z79.01 HALFWAY (CURRENT) USE OF ANTICOAGULANT 09/23/2017 CAREY CHOWDHURY MD Ot Z95.1 PRESENCE OF AORTOCORONARY BYPASS GRAFT 09/23/2017 CAREY CHOWDHURY MD Ot D49.1 NEOPLASM OF UNSPECIFIED BEHAVIOR OF RESP 09/23/2017 CAREY CHOWDHURY MD, Ot 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 09/23/2017 CAREY CHOWDHURY MD Ot D50.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 09/23/2017 CAREY CHOWDHURY MD Ot F17.290 NICOTINE DEPENDENCE, OTHER TOBACCO PRODU 09/23/2017 CAREY CHOWDHURY MD Ot G62.9 POLYNEUROPATHY, UNSPECIFIED 09/23/2017 CAREY CHOWDHURY MD Ot I10 ESSENTIAL (PRIMARY) HYPERTENSION 09/23/2017 CAREY CHOWDHURY MD Ot I25.10 ATHSCL HEART DISEASE OF [place] CORONARY 09/23/2017 CAREY CHOWDHURY MD Ot I48.0 PAROXYSMAL ATRIAL FIBRILLATION 09/23/2017 CAREY CHOWDHURY MD, Ot I65.29 OCCLUSION AND STENOSIS OF UNSPECIFIED CA 09/23/2017 CAREY CHOWDHURY MD Ot I73.9 PERIPHERAL VASCULAR DISEASE, UNSPECIFIED 09/23/2017 CAREY CHOWDHURY MD Ot K44.9 DIAPHRAGMATIC HERNIA WITHOUT OBSTRUCTION 09/23/2017 CAREY CHOWDHURY MD, Ot K57.90 DVRTCLOS OF INTEST, PART UNSP, W/O PERF 09/23/2017 CAREY CHOWDHURY MD Ot K80.20 CALCULUS OF GALLBLADDER W/O CHOLECYSTITI 09/23/2017 CAREY CHOWDHURY MD Ot N13.30 UNSPECIFIED HYDRONEPHROSIS 09/23/2017 CAREY CHOWDHURY MD Ot N17.9 ACUTE KIDNEY FAILURE, UNSPECIFIED 09/23/2017 CAREY CHOWDHURY MD Ot N40.0 BENIGN PROSTATIC HYPERPLASIA WITHOUT LOW 09/23/2017 CAREY CHOWDHURY MD Ot R31.0 GROSS HEMATURIA 09/23/2017 CAREY CHOWDHURY MD Ot R33.9 RETENTION OF URINE, UNSPECIFIED 09/23/2017 CAREY CHOWDHURY MD Ot Z77.29 CONTACT W AND (SUSPECTED ) EXPOSURE TO O 09/23/2017 CAREY CHOWDHURY MD Ot Z79.01 HALFWAY (CURRENT) USE OF ANTICOAGULANT 09/23/2017 CAREY CHOWDHURY MD Ot Z95.1 PRESENCE OF AORTOCORONARY BYPASS GRAFT 09/29/2017 CAREY CHOWDHURY MD Ot 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 09/29/2017 CAREY CHOWDHURY MD Ot R91.8 OTHER NONSPECIFIC ABNORMAL FINDING OF NICKY Procedures Code Description Performed By Performed On 47.01 LAPAROSCOP APPENDECTOMY 01/18/2014 Results Test Result Range Complete blood count (CBC) with automated white blood cell (WBC) differential - 09/13/17 12:45 Blood leukocytes automated count (number/volume) 6.1 10*3/uL 4.3-11.0 Blood erythrocytes automated count (number/volume) 2.51 10*6/uL 4.35-5.85 Venous blood hemoglobin measurement (mass/volume) 6.7 g/dL 13.3-17.7 Blood hematocrit (volume fraction) 21 % 40-54 Automated erythrocyte mean corpuscular volume 85 [foz_us] 80-99 Automated erythrocyte mean corpuscular hemoglobin (mass per erythrocyte) 27 pg 25-34 Automated erythrocyte mean corpuscular hemoglobin concentration measurement ( mass/volume) 32 g/dL 32-36 Automated erythrocyte distribution width ratio 19.4 % 10.0-14.5 Automated blood platelet count (count/volume) 377 10*3/uL 130-400 Automated blood platelet mean volume measurement 11.5 [foz_us] 7.4-10.4 Automated blood neutrophils/100 leukocytes 67 % 42-75 Automated blood lymphocytes/100 leukocytes 19 % 12-44 Blood monocytes/100 leukocytes 10 % 0-12 Automated blood eosinophils/100 leukocytes 4 % 0-10 Automated blood basophils/100 leukocytes 0 % 0-10 Blood neutrophils automated count (number/volume) 4.1 10*3 1.8-7.8 Blood lymphocytes automated count (number/volume) 1.1 10*3 1.0-4.0 Blood monocytes automated count (number/volume) 0.6 10*3 0.0-1.0 Automated eosinophil count 0.3 10*3/uL 0.0-0.3 Automated blood basophil count (count/volume) 0.0 10*3/uL 0.0-0.1 Comprehensive metabolic panel - 09/13/17 12:45 Serum or plasma sodium measurement (moles/volume) 138 mmol/L 135-145 Serum or plasma potassium measurement (moles/volume) 4.1 mmol/L 3.6-5.0 Serum or plasma chloride measurement (moles/volume) 101 mmol/L 98-107 Carbon dioxide 27 mmol/L 21-32 Serum or plasma anion gap determination (moles/volume) 10 mmol/L 5-14 Serum or plasma urea nitrogen measurement (mass/volume) 63 mg/dL 7-18 Serum or plasma creatinine measurement (mass/volume) 2.86 mg/dL 0.60-1.30 Serum or plasma urea nitrogen/creatinine mass ratio 22 NRG Serum or plasma creatinine measurement with calculation of estimated glomerular filtration rate 22 NRG Serum or plasma glucose measurement (mass/volume) 139 mg/dL 70-105 Serum or plasma calcium measurement (mass/volume) 9.0 mg/dL 8.5-10.1 Serum or plasma total bilirubin measurement (mass/volume) 0.9 mg/dL 0.1-1.0 Serum or plasma alkaline phosphatase measurement (enzymatic activity/volume) 43 U/L 40-136 Serum or plasma aspartate aminotransferase measurement (enzymatic activity/ volume) 28 U/L 5-34 Serum or plasma alanine aminotransferase measurement (enzymatic activity/volume ) 16 U/L 0-55 Serum or plasma protein measurement (mass/volume) 7.4 g/dL 6.4-8.2 Serum or plasma albumin measurement (mass/volume) 3.8 g/dL 3.2-4.5 Serum or plasma phosphate measurement (mass/volume) - 09/13/17 12:45 Serum or plasma phosphate measurement (mass/volume) 5.5 mg/dL 2.3-4.7 Magnesium - 09/13/17 12:45 Magnesium 2.1 mg/dL 1.8-2.4 PT panel in platelet poor plasma by coagulation assay - 09/13/17 12:45 Prothrombin time (PT) in platelet poor plasma by coagulation assay 20.1 s 12.2-14.7 INR in platelet poor plasma or blood by coagulation assay 1.7 0.8-1.4 RED CELLS LEUKO REDUCED AS1 - 09/13/17 14:22 RED CELLS LEUKO REDUCED AS1 NOT AVAILABLE [facility] Blood type T Indirect antibody screen panel - 09/13/17 14:22 ABO+Rh group AP [facility] Transfusion band number [id number] [facility] Blood group antibody screen NEGATIVE [facility] Whole blood hemoglobin and hematocrit panel - 09/13/17 22:54 Venous blood hemoglobin measurement (mass/volume) 7.9 g/dL 13.3-17.7 Blood hematocrit (volume fraction) 23 % 40-54 Complete blood count (CBC) with automated white blood cell (WBC) differential - 09/14/17 05:38 Blood leukocytes automated count (number/volume) 7.1 10*3/uL 4.3-11.0 Blood erythrocytes automated count (number/volume) 3.10 10*6/uL 4.35-5.85 Venous blood hemoglobin measurement (mass/volume) 8.5 g/dL 13.3-17.7 Blood hematocrit (volume fraction) 26 % 40-54 Automated erythrocyte mean corpuscular volume 83 [foz_us] 80-99 Automated erythrocyte mean corpuscular hemoglobin (mass per erythrocyte) 27 pg 25-34 Automated erythrocyte mean corpuscular hemoglobin concentration measurement ( mass/volume) 33 g/dL 32-36 Automated erythrocyte distribution width ratio 18.7 % 10.0-14.5 Automated blood platelet count (count/volume) 357 10*3/uL 130-400 Automated blood platelet mean volume measurement 11.5 [foz_us] 7.4-10.4 Automated blood neutrophils/100 leukocytes 69 % 42-75 Automated blood lymphocytes/100 leukocytes 16 % 12-44 Blood monocytes/100 leukocytes 9 % 0-12 Automated blood eosinophils/100 leukocytes 5 % 0-10 Automated blood basophils/100 leukocytes 0 % 0-10 Blood neutrophils automated count (number/volume) 4.9 10*3 1.8-7.8 Blood lymphocytes automated count (number/volume) 1.1 10*3 1.0-4.0 Blood monocytes automated count (number/volume) 0.7 10*3 0.0-1.0 Automated eosinophil count 0.4 10*3/uL 0.0-0.3 Automated blood basophil count (count/volume) 0.0 10*3/uL 0.0-0.1 Comprehensive metabolic panel - 09/14/17 05:38 Serum or plasma sodium measurement (moles/volume) 142 mmol/L 135-145 Serum or plasma potassium measurement (moles/volume) 3.9 mmol/L 3.6-5.0 Serum or plasma chloride measurement (moles/volume) 109 mmol/L 98-107 Carbon dioxide 24 mmol/L 21-32 Serum or plasma anion gap determination (moles/volume) 9 mmol/L 5-14 Serum or plasma urea nitrogen measurement (mass/volume) 54 mg/dL 7-18 Serum or plasma creatinine measurement (mass/volume) 2.49 mg/dL 0.60-1.30 Serum or plasma urea nitrogen/creatinine mass ratio 22 NRG Serum or plasma creatinine measurement with calculation of estimated glomerular filtration rate 25 NRG Serum or plasma glucose measurement (mass/volume) 89 mg/dL 70-105 Serum or plasma calcium measurement (mass/volume) 8.6 mg/dL 8.5-10.1 Serum or plasma total bilirubin measurement (mass/volume) 1.4 mg/dL 0.1-1.0 Serum or plasma alkaline phosphatase measurement (enzymatic activity/volume) 38 U/L 40-136 Serum or plasma aspartate aminotransferase measurement (enzymatic activity/ volume) 28 U/L 5-34 Serum or plasma alanine aminotransferase measurement (enzymatic activity/volume ) 15 U/L 0-55 Serum or plasma protein measurement (mass/volume) 7.0 g/dL 6.4-8.2 Serum or plasma albumin measurement (mass/volume) 3.6 g/dL 3.2-4.5 Whole blood hemoglobin and hematocrit panel - 09/14/17 13:43 Venous blood hemoglobin measurement (mass/volume) 8.1 g/dL 13.3-17.7 Blood hematocrit (volume fraction) 25 % 40-54 Complete blood count (CBC) with automated white blood cell (WBC) differential - 09/15/17 05:28 Blood leukocytes automated count (number/volume) 6.2 10*3/uL 4.3-11.0 Blood erythrocytes automated count (number/volume) 3.11 10*6/uL 4.35-5.85 Venous blood hemoglobin measurement (mass/volume) 8.6 g/dL 13.3-17.7 Blood hematocrit (volume fraction) 26 % 40-54 Automated erythrocyte mean corpuscular volume 83 [foz_us] 80-99 Automated erythrocyte mean corpuscular hemoglobin (mass per erythrocyte) 28 pg 25-34 Automated erythrocyte mean corpuscular hemoglobin concentration measurement ( mass/volume) 33 g/dL 32-36 Automated erythrocyte distribution width ratio 18.0 % 10.0-14.5 Automated blood platelet count (count/volume) 334 10*3/uL 130-400 Automated blood platelet mean volume measurement 11.4 [foz_us] 7.4-10.4 Automated blood neutrophils/100 leukocytes 66 % 42-75 Automated blood lymphocytes/100 leukocytes 17 % 12-44 Blood monocytes/100 leukocytes 10 % 0-12 Automated blood eosinophils/100 leukocytes 6 % 0-10 Automated blood basophils/100 leukocytes 0 % 0-10 Blood neutrophils automated count (number/volume) 4.1 10*3 1.8-7.8 Blood lymphocytes automated count (number/volume) 1.1 10*3 1.0-4.0 Blood monocytes automated count (number/volume) 0.6 10*3 0.0-1.0 Automated eosinophil count 0.4 10*3/uL 0.0-0.3 Automated blood basophil count (count/volume) 0.0 10*3/uL 0.0-0.1 PT panel in platelet poor plasma by coagulation assay - 09/15/17 05:28 Prothrombin time (PT) in platelet poor plasma by coagulation assay 21.4 s 12.2-14.7 INR in platelet poor plasma or blood by coagulation assay 1.9 0.8-1.4 Comprehensive metabolic panel - 09/15/17 05:28 Serum or plasma sodium measurement (moles/volume) 142 mmol/L 135-145 Serum or plasma potassium measurement (moles/volume) 3.7 mmol/L 3.6-5.0 Serum or plasma chloride measurement (moles/volume) 112 mmol/L 98-107 Carbon dioxide 21 mmol/L 21-32 Serum or plasma anion gap determination (moles/volume) 9 mmol/L 5-14 Serum or plasma urea nitrogen measurement (mass/volume) 39 mg/dL 7-18 Serum or plasma creatinine measurement (mass/volume) 1.95 mg/dL 0.60-1.30 Serum or plasma urea nitrogen/creatinine mass ratio 20 NRG Serum or plasma creatinine measurement with calculation of estimated glomerular filtration rate 34 NRG Serum or plasma glucose measurement (mass/volume) 85 mg/dL 70-105 Serum or plasma calcium measurement (mass/volume) 8.2 mg/dL 8.5-10.1 Serum or plasma total bilirubin measurement (mass/volume) 1.5 mg/dL 0.1-1.0 Serum or plasma alkaline phosphatase measurement (enzymatic activity/volume) 36 U/L 40-136 Serum or plasma aspartate aminotransferase measurement (enzymatic activity/ volume) 26 U/L 5-34 Serum or plasma alanine aminotransferase measurement (enzymatic activity/volume ) 12 U/L 0-55 Serum or plasma protein measurement (mass/volume) 6.2 g/dL 6.4-8.2 Serum or plasma albumin measurement (mass/volume) 3.3 g/dL 3.2-4.5 Complete blood count (CBC) with automated white blood cell (WBC) differential - 09/16/17 05:23 Blood leukocytes automated count (number/volume) 4.8 10*3/uL 4.3-11.0 Blood erythrocytes automated count (number/volume) 3.03 10*6/uL 4.35-5.85 Venous blood hemoglobin measurement (mass/volume) 8.4 g/dL 13.3-17.7 Blood hematocrit (volume fraction) 25 % 40-54 Automated erythrocyte mean corpuscular volume 84 [foz_us] 80-99 Automated erythrocyte mean corpuscular hemoglobin (mass per erythrocyte) 28 pg 25-34 Automated erythrocyte mean corpuscular hemoglobin concentration measurement ( mass/volume) 33 g/dL 32-36 Automated erythrocyte distribution width ratio 18.3 % 10.0-14.5 Automated blood platelet count (count/volume) 321 10*3/uL 130-400 Automated blood platelet mean volume measurement 10.9 [foz_us] 7.4-10.4 Automated blood neutrophils/100 leukocytes 86 % 42-75 Automated blood lymphocytes/100 leukocytes 10 % 12-44 Blood monocytes/100 leukocytes 4 % 0-12 Automated blood eosinophils/100 leukocytes 0 % 0-10 Automated blood basophils/100 leukocytes 0 % 0-10 Blood neutrophils automated count (number/volume) 4.2 10*3 1.8-7.8 Blood lymphocytes automated count (number/volume) 0.5 10*3 1.0-4.0 Blood monocytes automated count (number/volume) 0.2 10*3 0.0-1.0 Automated eosinophil count 0.0 10*3/uL 0.0-0.3 Automated blood basophil count (count/volume) 0.0 10*3/uL 0.0-0.1 Comprehensive metabolic panel - 09/16/17 05:23 Serum or plasma sodium measurement (moles/volume) 142 mmol/L 135-145 Serum or plasma potassium measurement (moles/volume) 4.2 mmol/L 3.6-5.0 Serum or plasma chloride measurement (moles/volume) 114 mmol/L 98-107 Carbon dioxide 19 mmol/L 21-32 Serum or plasma anion gap determination (moles/volume) 9 mmol/L 5-14 Serum or plasma urea nitrogen measurement (mass/volume) 37 mg/dL 7-18 Serum or plasma creatinine measurement (mass/volume) 1.87 mg/dL 0.60-1.30 Serum or plasma urea nitrogen/creatinine mass ratio 20 NRG Serum or plasma creatinine measurement with calculation of estimated glomerular filtration rate 35 NRG Serum or plasma glucose measurement (mass/volume) 134 mg/dL 70-105 Serum or plasma calcium measurement (mass/volume) 8.2 mg/dL 8.5-10.1 Serum or plasma total bilirubin measurement (mass/volume) 1.0 mg/dL 0.1-1.0 Serum or plasma alkaline phosphatase measurement (enzymatic activity/volume) 33 U/L 40-136 Serum or plasma aspartate aminotransferase measurement (enzymatic activity/ volume) 23 U/L 5-34 Serum or plasma alanine aminotransferase measurement (enzymatic activity/volume ) 16 U/L 0-55 Serum or plasma protein measurement (mass/volume) 6.1 g/dL 6.4-8.2 Serum or plasma albumin measurement (mass/volume) 3.2 g/dL 3.2-4.5 PT panel in platelet poor plasma by coagulation assay - 09/16/17 05:23 Prothrombin time (PT) in platelet poor plasma by coagulation assay 20.6 s 12.2-14.7 INR in platelet poor plasma or blood by coagulation assay 1.8 0.8-1.4 Stool occult blood screen - 09/16/17 13:40 Stool gastrointestinal hemoglobin detection NEGATIVE NEGATIVE Complete blood count (CBC) with automated white blood cell (WBC) differential - 09/17/17 05:05 Blood leukocytes automated count (number/volume) 9.4 10*3/uL 4.3-11.0 Blood erythrocytes automated count (number/volume) 2.92 10*6/uL 4.35-5.85 Venous blood hemoglobin measurement (mass/volume) 8.0 g/dL 13.3-17.7 Blood hematocrit (volume fraction) 25 % 40-54 Automated erythrocyte mean corpuscular volume 85 [foz_us] 80-99 Automated erythrocyte mean corpuscular hemoglobin (mass per erythrocyte) 27 pg 25-34 Automated erythrocyte mean corpuscular hemoglobin concentration measurement ( mass/volume) 32 g/dL 32-36 Automated erythrocyte distribution width ratio 18.5 % 10.0-14.5 Automated blood platelet count (count/volume) 333 10*3/uL 130-400 Automated blood platelet mean volume measurement 11.7 [foz_us] 7.4-10.4 Automated blood neutrophils/100 leukocytes 91 % 42-75 Automated blood lymphocytes/100 leukocytes 5 % 12-44 Blood monocytes/100 leukocytes 4 % 0-12 Automated blood eosinophils/100 leukocytes 0 % 0-10 Automated blood basophils/100 leukocytes 0 % 0-10 Blood neutrophils automated count (number/volume) 8.5 10*3 1.8-7.8 Blood lymphocytes automated count (number/volume) 0.5 10*3 1.0-4.0 Blood monocytes automated count (number/volume) 0.4 10*3 0.0-1.0 Automated eosinophil count 0.0 10*3/uL 0.0-0.3 Automated blood basophil count (count/volume) 0.0 10*3/uL 0.0-0.1 Comprehensive metabolic panel - 09/17/17 05:05 Serum or plasma sodium measurement (moles/volume) 143 mmol/L 135-145 Serum or plasma potassium measurement (moles/volume) 4.3 mmol/L 3.6-5.0 Serum or plasma chloride measurement (moles/volume) 115 mmol/L 98-107 Carbon dioxide 18 mmol/L 21-32 Serum or plasma anion gap determination (moles/volume) 10 mmol/L 5-14 Serum or plasma urea nitrogen measurement (mass/volume) 39 mg/dL 7-18 Serum or plasma creatinine measurement (mass/volume) 1.69 mg/dL 0.60-1.30 Serum or plasma urea nitrogen/creatinine mass ratio 23 NRG Serum or plasma creatinine measurement with calculation of estimated glomerular filtration rate 40 NRG Serum or plasma glucose measurement (mass/volume) 154 mg/dL 70-105 Serum or plasma calcium measurement (mass/volume) 8.2 mg/dL 8.5-10.1 Serum or plasma total bilirubin measurement (mass/volume) 0.7 mg/dL 0.1-1.0 Serum or plasma alkaline phosphatase measurement (enzymatic activity/volume) 32 U/L 40-136 Serum or plasma aspartate aminotransferase measurement (enzymatic activity/ volume) 26 U/L 5-34 Serum or plasma alanine aminotransferase measurement (enzymatic activity/volume ) 17 U/L 0-55 Serum or plasma protein measurement (mass/volume) 6.2 g/dL 6.4-8.2 Serum or plasma albumin measurement (mass/volume) 3.3 g/dL 3.2-4.5 Blood manual differential performed detection - 09/17/17 05:05 Blood monocytes/100 leukocytes 2 % NRG Manual blood segmented neutrophils/100 leukocytes 95 % NRG Blood band neutrophils/100 leukocytes 0 % NRG Manual blood lymphocytes/100 leukocytes 3 % NRG Manual eosinophils/100 leukocytes in nose 0 % NRG Manual blood basophils/100 leukocytes 0 % NRG Blood polychromasia detection by light microscopy SLIGHT NRG Blood anisocytosis detection by light microscopy SLIGHT NRG Blood ovalocytes detection by light microscopy SLIGHT NRG Blood poikilocytosis detection by light microscopy SLIGHT NRG Blood hypochromia detection by light microscopy MODERATE NRG Blood kat cells detection by light microscopy SLIGHT NRG Blood target cells detection by light microscopy SLIGHT NRG PT panel in platelet poor plasma by coagulation assay - 09/17/17 05:05 Prothrombin time (PT) in platelet poor plasma by coagulation assay 19.6 s 12.2-14.7 INR in platelet poor plasma or blood by coagulation assay 1.7 0.8-1.4 RED CELLS LEUKO REDUCED AS1 - 09/17/17 05:05 RED CELLS LEUKO REDUCED AS1 TRANSFUSED 09/17/17 1534 NRG Blood type T Indirect antibody screen panel - 09/17/17 05:05 ABO+Rh group AP NRG Transfusion band number [id number] NRG Blood group antibody screen NEGATIVE NRG Complete blood count (CBC) with automated white blood cell (WBC) differential - 09/18/17 06:20 Blood leukocytes automated count (number/volume) 10.9 10*3/uL 4.3-11.0 Blood erythrocytes automated count (number/volume) 3.70 10*6/uL 4.35-5.85 Venous blood hemoglobin measurement (mass/volume) 10.4 g/dL 13.3-17.7 Blood hematocrit (volume fraction) 31 % 40-54 Automated erythrocyte mean corpuscular volume 84 [foz_us] 80-99 Automated erythrocyte mean corpuscular hemoglobin (mass per erythrocyte) 28 pg 25-34 Automated erythrocyte mean corpuscular hemoglobin concentration measurement ( mass/volume) 33 g/dL 32-36 Automated erythrocyte distribution width ratio 18.2 % 10.0-14.5 Automated blood platelet count (count/volume) 348 10*3/uL 130-400 Automated blood platelet mean volume measurement 11.1 [foz_us] 7.4-10.4 Automated blood neutrophils/100 leukocytes 80 % 42-75 Automated blood lymphocytes/100 leukocytes 9 % 12-44 Blood monocytes/100 leukocytes 10 % 0-12 Automated blood eosinophils/100 leukocytes 1 % 0-10 Automated blood basophils/100 leukocytes 0 % 0-10 Blood neutrophils automated count (number/volume) 8.7 10*3 1.8-7.8 Blood lymphocytes automated count (number/volume) 1.0 10*3 1.0-4.0 Blood monocytes automated count (number/volume) 1.1 10*3 0.0-1.0 Automated eosinophil count 0.1 10*3/uL 0.0-0.3 Automated blood basophil count (count/volume) 0.0 10*3/uL 0.0-0.1 Comprehensive metabolic panel - 09/18/17 06:20 Serum or plasma sodium measurement (moles/volume) 141 mmol/L 135-145 Serum or plasma potassium measurement (moles/volume) 3.9 mmol/L 3.6-5.0 Serum or plasma chloride measurement (moles/volume) 114 mmol/L 98-107 Carbon dioxide 19 mmol/L 21-32 Serum or plasma anion gap determination (moles/volume) 8 mmol/L 5-14 Serum or plasma urea nitrogen measurement (mass/volume) 38 mg/dL 7-18 Serum or plasma creatinine measurement (mass/volume) 1.57 mg/dL 0.60-1.30 Serum or plasma urea nitrogen/creatinine mass ratio 24 NRG Serum or plasma creatinine measurement with calculation of estimated glomerular filtration rate 43 NRG Serum or plasma glucose measurement (mass/volume) 82 mg/dL 70-105 Serum or plasma calcium measurement (mass/volume) 8.7 mg/dL 8.5-10.1 Serum or plasma total bilirubin measurement (mass/volume) 1.6 mg/dL 0.1-1.0 Serum or plasma alkaline phosphatase measurement (enzymatic activity/volume) 31 U/L 40-136 Serum or plasma aspartate aminotransferase measurement (enzymatic activity/ volume) 32 U/L 5-34 Serum or plasma alanine aminotransferase measurement (enzymatic activity/volume ) 20 U/L 0-55 Serum or plasma protein measurement (mass/volume) 6.5 g/dL 6.4-8.2 Serum or plasma albumin measurement (mass/volume) 3.4 g/dL 3.2-4.5 Complete blood count (CBC) with automated white blood cell (WBC) differential - 09/19/17 03:20 Blood leukocytes automated count (number/volume) 8.3 10*3/uL 4.3-11.0 Blood erythrocytes automated count (number/volume) 3.50 10*6/uL 4.35-5.85 Venous blood hemoglobin measurement (mass/volume) 9.7 g/dL 13.3-17.7 Blood hematocrit (volume fraction) 30 % 40-54 Automated erythrocyte mean corpuscular volume 84 [foz_us] 80-99 Automated erythrocyte mean corpuscular hemoglobin (mass per erythrocyte) 28 pg 25-34 Automated erythrocyte mean corpuscular hemoglobin concentration measurement ( mass/volume) 33 g/dL 32-36 Automated erythrocyte distribution width ratio 17.5 % 10.0-14.5 Automated blood platelet count (count/volume) 309 10*3/uL 130-400 Automated blood platelet mean volume measurement 11.5 [foz_us] 7.4-10.4 Automated blood neutrophils/100 leukocytes 73 % 42-75 Automated blood lymphocytes/100 leukocytes 13 % 12-44 Blood monocytes/100 leukocytes 10 % 0-12 Automated blood eosinophils/100 leukocytes 5 % 0-10 Automated blood basophils/100 leukocytes 0 % 0-10 Blood neutrophils automated count (number/volume) 6.1 10*3 1.8-7.8 Blood lymphocytes automated count (number/volume) 1.1 10*3 1.0-4.0 Blood monocytes automated count (number/volume) 0.8 10*3 0.0-1.0 Automated eosinophil count 0.4 10*3/uL 0.0-0.3 Automated blood basophil count (count/volume) 0.0 10*3/uL 0.0-0.1 Comprehensive metabolic panel - 09/19/17 03:20 Serum or plasma sodium measurement (moles/volume) 141 mmol/L 135-145 Serum or plasma potassium measurement (moles/volume) 3.6 mmol/L 3.6-5.0 Serum or plasma chloride measurement (moles/volume) 111 mmol/L 98-107 Carbon dioxide 19 mmol/L 21-32 Serum or plasma anion gap determination (moles/volume) 11 mmol/L 5-14 Serum or plasma urea nitrogen measurement (mass/volume) 34 mg/dL 7-18 Serum or plasma creatinine measurement (mass/volume) 1.51 mg/dL 0.60-1.30 Serum or plasma urea nitrogen/creatinine mass ratio 23 NRG Serum or plasma creatinine measurement with calculation of estimated glomerular filtration rate 45 NRG Serum or plasma glucose measurement (mass/volume) 82 mg/dL 70-105 Serum or plasma calcium measurement (mass/volume) 8.5 mg/dL 8.5-10.1 Serum or plasma total bilirubin measurement (mass/volume) 1.6 mg/dL 0.1-1.0 Serum or plasma alkaline phosphatase measurement (enzymatic activity/volume) 39 U/L 40-136 Serum or plasma aspartate aminotransferase measurement (enzymatic activity/ volume) 32 U/L 5-34 Serum or plasma alanine aminotransferase measurement (enzymatic activity/volume ) 22 U/L 0-55 Serum or plasma protein measurement (mass/volume) 6.2 g/dL 6.4-8.2 Serum or plasma albumin measurement (mass/volume) 3.3 g/dL 3.2-4.5 Complete blood count (CBC) with automated white blood cell (WBC) differential - 09/20/17 04:25 Blood leukocytes automated count (number/volume) 8.1 10*3/uL 4.3-11.0 Blood erythrocytes automated count (number/volume) 3.43 10*6/uL 4.35-5.85 Venous blood hemoglobin measurement (mass/volume) 9.6 g/dL 13.3-17.7 Blood hematocrit (volume fraction) 29 % 40-54 Automated erythrocyte mean corpuscular volume 85 [foz_us] 80-99 Automated erythrocyte mean corpuscular hemoglobin (mass per erythrocyte) 28 pg 25-34 Automated erythrocyte mean corpuscular hemoglobin concentration measurement ( mass/volume) 33 g/dL 32-36 Automated erythrocyte distribution width ratio 17.1 % 10.0-14.5 Automated blood platelet count (count/volume) 303 10*3/uL 130-400 Automated blood platelet mean volume measurement 10.9 [foz_us] 7.4-10.4 Automated blood neutrophils/100 leukocytes 69 % 42-75 Automated blood lymphocytes/100 leukocytes 16 % 12-44 Blood monocytes/100 leukocytes 9 % 0-12 Automated blood eosinophils/100 leukocytes 6 % 0-10 Automated blood basophils/100 leukocytes 0 % 0-10 Blood neutrophils automated count (number/volume) 5.6 10*3 1.8-7.8 Blood lymphocytes automated count (number/volume) 1.3 10*3 1.0-4.0 Blood monocytes automated count (number/volume) 0.7 10*3 0.0-1.0 Automated eosinophil count 0.5 10*3/uL 0.0-0.3 Automated blood basophil count (count/volume) 0.0 10*3/uL 0.0-0.1 Comprehensive metabolic panel - 09/20/17 04:25 Serum or plasma sodium measurement (moles/volume) 141 mmol/L 135-145 Serum or plasma potassium measurement (moles/volume) 3.4 mmol/L 3.6-5.0 Serum or plasma chloride measurement (moles/volume) 111 mmol/L 98-107 Carbon dioxide 18 mmol/L 21-32 Serum or plasma anion gap determination (moles/volume) 12 mmol/L 5-14 Serum or plasma urea nitrogen measurement (mass/volume) 27 mg/dL 7-18 Serum or plasma creatinine measurement (mass/volume) 1.48 mg/dL 0.60-1.30 Serum or plasma urea nitrogen/creatinine mass ratio 18 NRG Serum or plasma creatinine measurement with calculation of estimated glomerular filtration rate 46 NRG Serum or plasma glucose measurement (mass/volume) 93 mg/dL 70-105 Serum or plasma calcium measurement (mass/volume) 8.6 mg/dL 8.5-10.1 Serum or plasma total bilirubin measurement (mass/volume) 1.7 mg/dL 0.1-1.0 Serum or plasma alkaline phosphatase measurement (enzymatic activity/volume) 41 U/L 40-136 Serum or plasma aspartate aminotransferase measurement (enzymatic activity/ volume) 28 U/L 5-34 Serum or plasma alanine aminotransferase measurement (enzymatic activity/volume ) 23 U/L 0-55 Serum or plasma protein measurement (mass/volume) 6.3 g/dL 6.4-8.2 Serum or plasma albumin measurement (mass/volume) 3.3 g/dL 3.2-4.5 RED CELLS LEUKO REDUCED AS1 - 09/20/17 08:54 RED CELLS LEUKO REDUCED AS1 TRANSFUSED 09/20/17 1118 NRG Blood type T Indirect antibody screen panel - 09/20/17 08:54 ABO+Rh group AP NRG Transfusion band number [id number] NRG Blood group antibody screen NEGATIVE NRG Methicillin resistant Staphylococcus aureus (MRSA) screening culture - 09:32 Methicillin resistant Staphylococcus aureus (MRSA) screening culture NEG NRG Complete blood count (CBC) with automated white blood cell (WBC) differential - 09/21/17 05:02 Blood leukocytes automated count (number/volume) 8.1 10*3/uL 4.3-11.0 Blood erythrocytes automated count (number/volume) 3.70 10*6/uL 4.35-5.85 Venous blood hemoglobin measurement (mass/volume) 10.5 g/dL 13.3-17.7 Blood hematocrit (volume fraction) 31 % 40-54 Automated erythrocyte mean corpuscular volume 84 [foz_us] 80-99 Automated erythrocyte mean corpuscular hemoglobin (mass per erythrocyte) 28 pg 25-34 Automated erythrocyte mean corpuscular hemoglobin concentration measurement ( mass/volume) 34 g/dL 32-36 Automated erythrocyte distribution width ratio 16.7 % 10.0-14.5 Automated blood platelet count (count/volume) 312 10*3/uL 130-400 Automated blood platelet mean volume measurement 11.1 [foz_us] 7.4-10.4 Automated blood neutrophils/100 leukocytes 70 % 42-75 Automated blood lymphocytes/100 leukocytes 14 % 12-44 Blood monocytes/100 leukocytes 9 % 0-12 Automated blood eosinophils/100 leukocytes 7 % 0-10 Automated blood basophils/100 leukocytes 0 % 0-10 Blood neutrophils automated count (number/volume) 5.7 10*3 1.8-7.8 Blood lymphocytes automated count (number/volume) 1.1 10*3 1.0-4.0 Blood monocytes automated count (number/volume) 0.7 10*3 0.0-1.0 Automated eosinophil count 0.6 10*3/uL 0.0-0.3 Automated blood basophil count (count/volume) 0.0 10*3/uL 0.0-0.1 Comprehensive metabolic panel - 09/21/17 05:02 Serum or plasma sodium measurement (moles/volume) 144 mmol/L 135-145 Serum or plasma potassium measurement (moles/volume) 3.1 mmol/L 3.6-5.0 Serum or plasma chloride measurement (moles/volume) 111 mmol/L 98-107 Carbon dioxide 21 mmol/L 21-32 Serum or plasma anion gap determination (moles/volume) 12 mmol/L 5-14 Serum or plasma urea nitrogen measurement (mass/volume) 25 mg/dL 7-18 Serum or plasma creatinine measurement (mass/volume) 1.57 mg/dL 0.60-1.30 Serum or plasma urea nitrogen/creatinine mass ratio 16 NRG Serum or plasma creatinine measurement with calculation of estimated glomerular filtration rate 43 NRG Serum or plasma glucose measurement (mass/volume) 101 mg/dL 70-105 Serum or plasma calcium measurement (mass/volume) 8.3 mg/dL 8.5-10.1 Serum or plasma total bilirubin measurement (mass/volume) 1.4 mg/dL 0.1-1.0 Serum or plasma alkaline phosphatase measurement (enzymatic activity/volume) 47 U/L 40-136 Serum or plasma aspartate aminotransferase measurement (enzymatic activity/ volume) 29 U/L 5-34 Serum or plasma alanine aminotransferase measurement (enzymatic activity/volume ) 25 U/L 0-55 Serum or plasma protein measurement (mass/volume) 6.1 g/dL 6.4-8.2 Serum or plasma albumin measurement (mass/volume) 3.2 g/dL 3.2-4.5 Complete blood count (CBC) with automated white blood cell (WBC) differential - 09/22/17 05:22 Blood leukocytes automated count (number/volume) 7.7 10*3/uL 4.3-11.0 Blood erythrocytes automated count (number/volume) 3.60 10*6/uL 4.35-5.85 Venous blood hemoglobin measurement (mass/volume) 10.3 g/dL 13.3-17.7 Blood hematocrit (volume fraction) 30 % 40-54 Automated erythrocyte mean corpuscular volume 84 [foz_us] 80-99 Automated erythrocyte mean corpuscular hemoglobin (mass per erythrocyte) 29 pg 25-34 Automated erythrocyte mean corpuscular hemoglobin concentration measurement ( mass/volume) 34 g/dL 32-36 Automated erythrocyte distribution width ratio 17.1 % 10.0-14.5 Automated blood platelet count (count/volume) 305 10*3/uL 130-400 Automated blood platelet mean volume measurement 11.2 [foz_us] 7.4-10.4 Automated blood neutrophils/100 leukocytes 78 % 42-75 Automated blood lymphocytes/100 leukocytes 12 % 12-44 Blood monocytes/100 leukocytes 10 % 0-12 Automated blood eosinophils/100 leukocytes 0 % 0-10 Automated blood basophils/100 leukocytes 0 % 0-10 Blood neutrophils automated count (number/volume) 6.0 10*3 1.8-7.8 Blood lymphocytes automated count (number/volume) 0.9 10*3 1.0-4.0 Blood monocytes automated count (number/volume) 0.7 10*3 0.0-1.0 Automated eosinophil count 0.0 10*3/uL 0.0-0.3 Automated blood basophil count (count/volume) 0.0 10*3/uL 0.0-0.1 Comprehensive metabolic panel - 09/22/17 05:22 Serum or plasma sodium measurement (moles/volume) 142 mmol/L 135-145 Serum or plasma potassium measurement (moles/volume) 3.4 mmol/L 3.6-5.0 Serum or plasma chloride measurement (moles/volume) 110 mmol/L 98-107 Carbon dioxide 21 mmol/L 21-32 Serum or plasma anion gap determination (moles/volume) 11 mmol/L 5-14 Serum or plasma urea nitrogen measurement (mass/volume) 23 mg/dL 7-18 Serum or plasma creatinine measurement (mass/volume) 1.34 mg/dL 0.60-1.30 Serum or plasma urea nitrogen/creatinine mass ratio 17 NRG Serum or plasma creatinine measurement with calculation of estimated glomerular filtration rate 52 NRG Serum or plasma glucose measurement (mass/volume) 121 mg/dL 70-105 Serum or plasma calcium measurement (mass/volume) 8.1 mg/dL 8.5-10.1 Serum or plasma total bilirubin measurement (mass/volume) 1.0 mg/dL 0.1-1.0 Serum or plasma alkaline phosphatase measurement (enzymatic activity/volume) 47 U/L 40-136 Serum or plasma aspartate aminotransferase measurement (enzymatic activity/ volume) 25 U/L 5-34 Serum or plasma alanine aminotransferase measurement (enzymatic activity/volume ) 25 U/L 0-55 Serum or plasma protein measurement (mass/volume) 6.1 g/dL 6.4-8.2 Serum or plasma albumin measurement (mass/volume) 3.1 g/dL 3.2-4.5 Complete blood count (CBC) with automated white blood cell (WBC) differential - 09/23/17 05:15 Blood leukocytes automated count (number/volume) 7.5 10*3/uL 4.3-11.0 Blood erythrocytes automated count (number/volume) 3.61 10*6/uL 4.35-5.85 Venous blood hemoglobin measurement (mass/volume) 10.0 g/dL 13.3-17.7 Blood hematocrit (volume fraction) 31 % 40-54 Automated erythrocyte mean corpuscular volume 85 [foz_us] 80-99 Automated erythrocyte mean corpuscular hemoglobin (mass per erythrocyte) 28 pg 25-34 Automated erythrocyte mean corpuscular hemoglobin concentration measurement ( mass/volume) 33 g/dL 32-36 Automated erythrocyte distribution width ratio 17.0 % 10.0-14.5 Automated blood platelet count (count/volume) 312 10*3/uL 130-400 Automated blood platelet mean volume measurement 11.4 [foz_us] 7.4-10.4 Automated blood neutrophils/100 leukocytes 65 % 42-75 Automated blood lymphocytes/100 leukocytes 19 % 12-44 Blood monocytes/100 leukocytes 11 % 0-12 Automated blood eosinophils/100 leukocytes 5 % 0-10 Automated blood basophils/100 leukocytes 0 % 0-10 Blood neutrophils automated count (number/volume) 4.9 10*3 1.8-7.8 Blood lymphocytes automated count (number/volume) 1.4 10*3 1.0-4.0 Blood monocytes automated count (number/volume) 0.8 10*3 0.0-1.0 Automated eosinophil count 0.4 10*3/uL 0.0-0.3 Automated blood basophil count (count/volume) 0.0 10*3/uL 0.0-0.1 Comprehensive metabolic panel - 09/23/17 05:15 Serum or plasma sodium measurement (moles/volume) 142 mmol/L 135-145 Serum or plasma potassium measurement (moles/volume) 3.5 mmol/L 3.6-5.0 Serum or plasma chloride measurement (moles/volume) 109 mmol/L 98-107 Carbon dioxide 22 mmol/L 21-32 Serum or plasma anion gap determination (moles/volume) 11 mmol/L 5-14 Serum or plasma urea nitrogen measurement (mass/volume) 29 mg/dL 7-18 Serum or plasma creatinine measurement (mass/volume) 1.48 mg/dL 0.60-1.30 Serum or plasma urea nitrogen/creatinine mass ratio 20 NRG Serum or plasma creatinine measurement with calculation of estimated glomerular filtration rate 46 NRG Serum or plasma glucose measurement (mass/volume) 107 mg/dL 70-105 Serum or plasma calcium measurement (mass/volume) 8.2 mg/dL 8.5-10.1 Serum or plasma total bilirubin measurement (mass/volume) 0.8 mg/dL 0.1-1.0 Serum or plasma alkaline phosphatase measurement (enzymatic activity/volume) 51 U/L 40-136 Serum or plasma aspartate aminotransferase measurement (enzymatic activity/ volume) 36 U/L 5-34 Serum or plasma alanine aminotransferase measurement (enzymatic activity/volume ) 34 U/L 0-55 Serum or plasma protein measurement (mass/volume) 5.7 g/dL 6.4-8.2 Serum or plasma albumin measurement (mass/volume) 3.0 g/dL 3.2-4.5 Encounters ACCT No. Visit Date/Time Discharge Status Pt. Type Provider Facility Loc./Unit Complaint [id number] 09/30/2017 13:01:00 09/30/2017 23:59:59 CLS Preadmit LAVERNE SUNSHINE [facility] ONC [id number] 09/28/2017 08:37:00 09/28/2017 23:59:59 CLS Outpatient CAREY CHOWDHURY MD [facility] RAD RT LUNG MASS,BLADDER TUMOR [id number] 09/13/2017 12:03:00 09/23/2017 14:42:00 DIS Inpatient CAREY CHOWDHURY MD 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 RAD HEMATURIA [id number] 08/21/2015 08:29:00 08/21/2015 23:59:59 CLS Outpatient CAREY CHOWDHURY MD [facility] RAD LOW BACK PAIN [id number] 12/28/2014 11:10:00 12/28/2014 23:59:59 CLS Outpatient ANTONY PINEDA [facility] RAD L KNEE PAIN, SWELLING [id number] 02/14/2014 13:57:00 02/14/2014 23:59:59 [id number] 01/18/2014 12:18:00 01/21/2014 14:00:00 DIS Inpatient CAREY CHOWDHURY MD [facility] SURGICAL ABD PAIN [id number] 10/07/2017 12:00:00 PEN Preadmit LANRE TALBERT MD [facility] CARD CA BLADDER [id number] 08/21/2015 08:27:00 Document Registration [id number] 05/01/2015 15:50:00 Document Registration [id number] 02/12/2015 15:12:00 Document Registration [id number] 06/29/2012 09:12:00 Document Registration [id number] 03/17/2012 11:19:00 Document Registration [id number] 10/30/2011 11:22:00 Document Registration [id number] 01/29/2011 15:53:00 Document Registration [id number] 01/29/2011 11:17:00 Document Registration [id number] 01/29/2011 10:42:00 Document Registration [id number] 03/04/2017 23:43:51 03/04/2017 23:59:59 CLS Outpatient [id number] 12/28/2014 11:11:52 ACT Document Registration
[2017-10-06] MEDS ORDERED: PROPOFOL INJECTION 50 ML IV ONE (07:38)
--- NOTE | 2017-10-06 07:44 | Progress Note-Pre Operative ---
Pre-Operative Progress Note H&P Reviewed The H&P was reviewed, patient examined and no changes noted. Time Seen by Provider: 07:44 Date H&P Reviewed: October 06, 2017 Time H&P Reviewed: 07:44 Pre-Operative Diagnosis: lung mass GODFREY WILL DO October 06, 2017 07:44
--- NOTE | 2017-10-06 07:46 | Pulmonary Procedures ---
Pulmonary Procedures Date of Procedure Date of Service: October 06, 2017 Bronch Bronchoscopy with fluoroscopy EBUS with bx of station 10R lymph nodes Preop DX: mediastinal lymphadenopathy PostOP DX: same Complications: None Pt was sedated per anesthesia. Bronchoscopy was advanced through the ED tube and an anatomical undertaken down to the segmental bronchi bilaterally. No endobronchial lesions noted. EBUS was then advanced through ET tube and the mediastinum was US. Station 10R lymph nodes were sampled via needle bx under US guidance. Pt tolerated procedure well. No complications noted. GODFREY WILL DO October 06, 2017 07:46
--- NOTE | 2017-10-06 09:19 | Diagnostic Imaging Report ---
PATIENT HISTORY: POST EBUS. TECHNIQUE: Single frontal view of the chest. COMPARISON: CT and radiograph from 09/13/2017. FINDINGS: Lung volumes are mildly low. The mass in the right midlung is again seen, and appears stable. There are increased airspace opacities in the lung bases, compared to the previous exam. No pneumothorax or pleural effusion is seen. There is cardiomegaly, and mild central vascular congestion. 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 IMPRESSION: 1. Increased bibasilar airspace opacities, may represent atelectasis given the low lung volumes although underlying infiltrate is not excluded. 2. Cardiomegaly with central vascular congestion. 3. Stable mass in the right lung. No pneumothorax is seen. Dictated by: Dictated on workstation # [id number]
[2017-10-06 09:45] VITALS: BP 117/66
[2017-10-06 10:14] VITALS: BP 116/68
--- NOTE | 2017-10-06 11:18 | Diagnostic Imaging Report ---
Indication: Bronchoscopy. 17 seconds of actual fluoroscopy time were utilized during bronchoscopy. Impression: Fluoroscopy utilized during bronchoscopy. Dictated by: Dictated on workstation # [id number]
== END 2017-10-06 10:40 | disposition home or self-care (01) ==
LOC: ENDO 06:58
PROVIDERS: ATTEND Internal Medicine Critical Care Medicine
DX: R91.8 Other nonspecific abnormal finding of lung field (principal); I48.0 Paroxysmal atrial fibrillation; I27.20 Pulmonary hypertension, unspecified; Z85.51 Personal history of malignant neoplasm of bladder; I10 Essential (primary) hypertension; E78.5 Hyperlipidemia, unspecified; G62.9 Polyneuropathy, unspecified; Z95.1 Presence of aortocoronary bypass graft; Z79.899 Other long term (current) drug therapy
CPT/HCPCS: 71045; 87070; 87101; 87116; 87205; 88112; 94640

== ENCOUNTER → 2017-11-08 | Outpatient (CLI) | payer MEDICARE, OTHER ==
[~2017-11-08] MED LIST changes: -VALS320T14 PO; +VALS320T15 PO
[2017-11-08 10:56] LABS: CREATININE SERUM 1.91 MG/DL (0.60-1.30)
== END ==
LOC: LAB 09:43
PROVIDERS: ATTEND Internal Medicine Cardiovascular Disease
DX: R91.8 Other nonspecific abnormal finding of lung field (principal); C67.8 Malignant neoplasm of overlapping sites of bladder
CPT/HCPCS: 36415; 82565; 84520

== ENCOUNTER → 2017-11-08 | Outpatient (CLI) | payer MEDICARE, OTHER ==
--- NOTE | 2017-11-08 17:20 | Diagnostic Imaging Report ---
PROCEDURE: MR imaging of the chest without contrast. TECHNIQUE: Multiplanar, multisequence non-contrast MR imaging of the chest was performed. INDICATION: Lung mass. COMPARISON: CT chest from 09/13/2017. FINDINGS: Please note that MRI is not the study of choice in evaluation for lung pathology. CT is the examination of choice as artifact associated with air in the lungs is suboptimal to evaluate the lung parenchyma. The right upper lobe lung mass is grossly stable in size measuring approximately 2.3 x 1.5 cm. Right hilar lymphadenopathy is present and appears to measure 3.3 x 2.4 cm. No definitive new lymphadenopathy. There are no definitive new pulmonary masses, though small nodules can very easily be obscured by MRI imaging in assessment of the lungs. Masslike consolidation along the left hemidiaphragm appears grossly unchanged. No pleural effusion or pericardial effusion. Heart is enlarged. IMPRESSION: 1. Please note that MRI is not the radiographic study of choice to assess the lungs. CT should be utilized in assessment of lung lesions, even if patient cannot obtain contrast. 2. Allowing for this, the right upper lobe lung mass is grossly unchanged in size since recent CT. 3. Grossly stable right hilar lymphadenopathy. 4. Followup imaging for lung lesions and lymphadenopathy would be much better suited with CT of the chest, even if the patient cannot have contrast. Dictated by: Dictated on workstation # [id number]
== END ==
LOC: RAD 15:47
PROVIDERS: ATTEND Nurse Practitioner Family
DX: C67.8 Malignant neoplasm of overlapping sites of bladder (principal); R91.8 Other nonspecific abnormal finding of lung field; R59.0 Localized enlarged lymph nodes
CPT/HCPCS: 71550

== ENCOUNTER → 2017-11-08 | Outpatient (CLI) | payer MEDICARE, OTHER | LOC: RAD 10:09 | PROVIDERS: ATTEND Thoracic Surgery (Cardiothoracic Vascular Surgery) | DX: R91.8 Other nonspecific abnormal finding of lung field (principal) ==

== ENCOUNTER 2018-01-12 08:11 | Outpatient (RCR) | payer MEDICARE, OTHER ==
[~2018-01-12 08:11] MED LIST changes: -AMLO10TA2 PO; +AMLO10TA6 PO
[2018-01-12 08:25] LABS: BASOPHILS % (AUTO) 0 % (0-10); EOSINOPHILS # (AUTO) 0.3 10^3/uL (0.0-0.3); EOSINOPHILS % (AUTO) 3 % (0-10); HEMATOCRIT 36 % (40-54); HEMOGLOBIN 12.1 G/DL (13.3-17.7); LYMPHOCYTES # (AUTO) 1.6 X 10^3 (1.0-4.0); LYMPHOCYTES % (AUTO) 18 % (12-44); MEAN CORPUSCULAR HEMOGLOBIN 26 PG (25-34); MEAN CORPUSCULAR HGB CONC 33 G/DL (32-36); MEAN CORPUSCULAR VOLUME 78 FL (80-99); MEAN PLATELET VOLUME 11.6 FL (7.4-10.4); MONOCYTES # (AUTO) 0.7 X 10^3 (0.0-1.0); MONOCYTES % (AUTO) 8 % (0-12); NEUTROPHILS # (AUTO) 6.2 X 10^3 (1.8-7.8); NEUTROPHILS % (AUTO) 71 % (42-75); PLATELET COUNT 302 10^3/uL (130-400); RED BLOOD COUNT 4.64 10^6/uL (4.35-5.85); RED CELL DISTRIBUTION WIDTH 18.7 % (10.0-14.5); WHITE BLOOD COUNT 8.7 10^3/uL (4.3-11.0)
[2018-01-12 08:37] LABS: INR 2.9 (0.8-1.4); PROTHROMBIN TIME PATIENT 30.3 SEC (12.2-14.7)
[2018-01-12 08:48] LABS: ALBUMIN 4.1 GM/DL (3.2-4.5); BILIRUBIN,TOTAL 0.6 MG/DL (0.1-1.0); CALCIUM 9.9 MG/DL (8.5-10.1); CREATININE SERUM 2.25 MG/DL (0.60-1.30); POTASSIUM 4.3 MMOL/L (3.6-5.0); TOTAL PROTEIN 8.3 GM/DL (6.4-8.2)
[2018-02-08] MEDS ORDERED: ASPI-983 PO (14:33)
[2018-02-08] MEDS ORDERED: HYDR-3922 PO (14:33)
[2018-02-08] MEDS ORDERED: WARF-48 PO ×2 (14:33)
[2018-02-08] MEDS ORDERED: BUME2TAB3 PO (14:33)
[2018-02-11] MEDS ORDERED: DIPH1TAB PO (08:56)
[2018-02-11] MEDS ORDERED: HYDR-3922 PO (08:56)
[2018-02-11] MEDS ORDERED: WARF-48 PO (08:56)
[2018-02-11] MEDS ORDERED: BETA15CR4 TP (08:56)
[2018-02-11] MEDS ORDERED: CARV25TA PO (08:56)
[2018-02-11] MEDS ORDERED: CEPH-507 PO (08:59)
== END 2018-02-06 | disposition home or self-care (01) ==
LOC: LAB 08:11
PROVIDERS: ATTEND Internal Medicine Critical Care Medicine
DX: C34.11 Malignant neoplasm of upper lobe, right bronchus or lung (principal); C67.8 Malignant neoplasm of overlapping sites of bladder; I10 Essential (primary) hypertension; D50.0 Iron deficiency anemia secondary to blood loss (chronic); Z79.01 Long term (current) use of anticoagulants; Z79.899 Other long term (current) drug therapy
CPT/HCPCS: 36415; 77386; 80053; 85025; 85610

== ENCOUNTER → 2018-01-17 | Outpatient (CLI) | payer MEDICARE, OTHER ==
[~2018-01-17] MED LIST changes: +HYDR-3922 PO
[2018-01-17 11:54] LABS: CALCIUM 10.1 MG/DL (8.5-10.1); CREATININE SERUM 2.62 MG/DL (0.60-1.30); POTASSIUM 4.1 MMOL/L (3.6-5.0)
== END ==
LOC: LAB 11:01
PROVIDERS: ATTEND Internal Medicine Advanced Heart Failure and Transplant Cardiology
DX: I27.20 Pulmonary hypertension, unspecified (principal); I50.30 Unspecified diastolic (congestive) heart failure
CPT/HCPCS: 36415; 80048

== ENCOUNTER 2018-02-03 07:41 | Outpatient (RCR) | payer MEDICARE, OTHER ==
[2017-12-30 10:22] LABS: BASOPHILS % (AUTO) 0 % (0-10); EOSINOPHILS # (AUTO) 0.2 10^3/uL (0.0-0.3); EOSINOPHILS % (AUTO) 3 % (0-10); HEMATOCRIT 37 % (40-54); HEMOGLOBIN 12.1 G/DL (13.3-17.7); LYMPHOCYTES # (AUTO) 1.6 X 10^3 (1.0-4.0); LYMPHOCYTES % (AUTO) 22 % (12-44); MEAN CORPUSCULAR HEMOGLOBIN 26 PG (25-34); MEAN CORPUSCULAR HGB CONC 33 G/DL (32-36); MEAN CORPUSCULAR VOLUME 79 FL (80-99); MEAN PLATELET VOLUME 11.7 FL (7.4-10.4); MONOCYTES # (AUTO) 0.6 X 10^3 (0.0-1.0); MONOCYTES % (AUTO) 8 % (0-12); NEUTROPHILS # (AUTO) 4.8 X 10^3 (1.8-7.8); NEUTROPHILS % (AUTO) 67 % (42-75); PLATELET COUNT 379 10^3/uL (130-400); RED BLOOD COUNT 4.68 10^6/uL (4.35-5.85); RED CELL DISTRIBUTION WIDTH 19.6 % (10.0-14.5); WHITE BLOOD COUNT 7.2 10^3/uL (4.3-11.0)
[2017-12-30 10:44] LABS: ALBUMIN 4.3 GM/DL (3.2-4.5); BILIRUBIN,TOTAL 0.6 MG/DL (0.1-1.0); CALCIUM 10.1 MG/DL (8.5-10.1); CREATININE SERUM 2.47 MG/DL (0.60-1.30); POTASSIUM 4.2 MMOL/L (3.6-5.0); TOTAL PROTEIN 8.5 GM/DL (6.4-8.2)
[2018-01-24 09:02] LABS: BASOPHILS % (AUTO) 0 % (0-10); EOSINOPHILS % (AUTO) 0 % (0-10); HEMATOCRIT 30 % (40-54); HEMOGLOBIN 10.1 G/DL (13.3-17.7); LYMPHOCYTES # (AUTO) 0.3 X 10^3 (1.0-4.0); LYMPHOCYTES % (AUTO) 13 % (12-44); MEAN CORPUSCULAR HEMOGLOBIN 27 PG (25-34); MEAN CORPUSCULAR HGB CONC 34 G/DL (32-36); MEAN CORPUSCULAR VOLUME 78 FL (80-99); MEAN PLATELET VOLUME 11.8 FL (7.4-10.4); MONOCYTES % (AUTO) 1 % (0-12); NEUTROPHILS # (AUTO) 2.1 X 10^3 (1.8-7.8); NEUTROPHILS % (AUTO) 85 % (42-75); PLATELET COUNT 267 10^3/uL (130-400); RED BLOOD COUNT 3.81 10^6/uL (4.35-5.85); RED CELL DISTRIBUTION WIDTH 18.1 % (10.0-14.5); WHITE BLOOD COUNT 2.5 10^3/uL (4.3-11.0)
[2018-01-24 09:26] LABS: CALCIUM 9.1 MG/DL (8.5-10.1); CREATININE SERUM 2.15 MG/DL (0.60-1.30); POTASSIUM 4.2 MMOL/L (3.6-5.0)
[2018-01-24 09:35] LABS: INR 3.1 (0.8-1.4); PROTHROMBIN TIME PATIENT 31.9 SEC (12.2-14.7)
[2018-01-31 08:52] LABS: BASOPHILS % (AUTO) 0 % (0-10); EOSINOPHILS % (AUTO) 1 % (0-10); HEMATOCRIT 27 % (40-54); HEMOGLOBIN 9.4 G/DL (13.3-17.7); LYMPHOCYTES # (AUTO) 0.2 X 10^3 (1.0-4.0); LYMPHOCYTES % (AUTO) 9 % (12-44); MEAN CORPUSCULAR HEMOGLOBIN 27 PG (25-34); MEAN CORPUSCULAR HGB CONC 34 G/DL (32-36); MEAN CORPUSCULAR VOLUME 79 FL (80-99); MONOCYTES % (AUTO) 2 % (0-12); NEUTROPHILS # (AUTO) 1.6 X 10^3 (1.8-7.8); NEUTROPHILS % (AUTO) 89 % (42-75); PLATELET COUNT 196 10^3/uL (130-400); RED BLOOD COUNT 3.49 10^6/uL (4.35-5.85); RED CELL DISTRIBUTION WIDTH 17.9 % (10.0-14.5); WHITE BLOOD COUNT 1.9 10^3/uL (4.3-11.0)
[2018-01-31 09:10] LABS: CALCIUM 8.3 MG/DL (8.5-10.1); CREATININE SERUM 2.08 MG/DL (0.60-1.30); POTASSIUM 3.8 MMOL/L (3.6-5.0)
[~2018-02-03] VITALS: Ht 180.3 cm; Wt 78.9 kg
[~2018-02-03 07:41] MED LIST changes: +CARBOPLATIN IV SCH; +D5W IV SCH; +FAMOTIDINE 20MG/2ML IV (CANCER CTR) IV SCH; -HYDR-3922 PO; +NS IV 1000 ML (CANCER CTR) IV SCH; +PACLITAXEL 90 MG in NORMAL SALINE (CANCER CENTER) 250 ML IV SCH; +PALONOSETRON HCL 0.25 MG, DEXAMETHASONE INJECTION 10 MG in NS (IVPB) CANCER CENTER 50 ML IV SCH; +diphenhydrAMINE 25 MG TAB (BENADRYL) CANCER CENTER PO SCH; +diphenhydrAMINE 50 MG/ML INJ (CANCER CENTER) IV PRN; +diphenhydrAMINE 50 MG/ML INJ (CANCER CENTER) ONE
[2018-02-08] MEDS ORDERED: WARF-48 PO ×2 (14:33)
[2018-02-08] MEDS ORDERED: BUME2TAB3 PO (14:33)
[2018-02-08] MEDS ORDERED: ASPI-983 PO (14:33)
[2018-02-08] MEDS ORDERED: HYDR-3922 PO (14:33)
[2018-02-11] MEDS ORDERED: HYDR-3922 PO (08:56)
[2018-02-11] MEDS ORDERED: WARF-48 PO (08:56)
[2018-02-11] MEDS ORDERED: BETA15CR4 TP (08:56)
[2018-02-11] MEDS ORDERED: DIPH1TAB PO (08:56)
[2018-02-11] MEDS ORDERED: CARV25TA PO (08:56)
[2018-02-11] MEDS ORDERED: CEPH-507 PO (08:59)
== END 2018-02-04 09:08 | disposition home or self-care (01) ==
LOC: ONC 07:41
PROVIDERS: ATTEND Internal Medicine Hematology & Oncology
DX: Z51.0 Encounter for antineoplastic radiation therapy (principal); Z51.11 Encounter for antineoplastic chemotherapy; C67.2 Malignant neoplasm of lateral wall of bladder; C34.11 Malignant neoplasm of upper lobe, right bronchus or lung; C77.1 Secondary and unspecified malignant neoplasm of intrathoracic lymph nodes; I48.2 Chronic atrial fibrillation; I25.10 Atherosclerotic heart disease of native coronary artery without angina pectoris; I27.20 Pulmonary hypertension, unspecified; Z79.01 Long term (current) use of anticoagulants
CPT/HCPCS: 36415; 77290; 77295; 77300; 77301; 77334; 77336; 77338; 77386; 80048; 80053; 83615; 85025; 85610; 96375; 96413; 96417; 99204; 99213

== ENCOUNTER 2018-02-04 12:08 | Outpatient (RCR) | payer MEDICARE, OTHER ==
[~2018-02-04 12:08] MED LIST changes: -CARBOPLATIN IV SCH; -D5W IV SCH; -FAMOTIDINE 20MG/2ML IV (CANCER CTR) IV SCH; -NS IV 1000 ML (CANCER CTR) IV SCH; -PACLITAXEL 90 MG in NORMAL SALINE (CANCER CENTER) 250 ML IV SCH; -PALONOSETRON HCL 0.25 MG, DEXAMETHASONE INJECTION 10 MG in NS (IVPB) CANCER CENTER 50 ML IV SCH; -diphenhydrAMINE 25 MG TAB (BENADRYL) CANCER CENTER PO SCH; -diphenhydrAMINE 50 MG/ML INJ (CANCER CENTER) IV PRN; -diphenhydrAMINE 50 MG/ML INJ (CANCER CENTER) ONE
[2018-02-04 12:43] LABS: BASOPHILS % (AUTO) 1 % (0-10); EOSINOPHILS # (AUTO) 0.1 10^3/uL (0.0-0.3); EOSINOPHILS % (AUTO) 6 % (0-10); HEMATOCRIT 27 % (40-54); HEMOGLOBIN 9.4 G/DL (13.3-17.7); LYMPHOCYTES # (AUTO) 0.2 X 10^3 (1.0-4.0); LYMPHOCYTES % (AUTO) 11 % (12-44); MEAN CORPUSCULAR HEMOGLOBIN 27 PG (25-34); MEAN CORPUSCULAR HGB CONC 35 G/DL (32-36); MEAN CORPUSCULAR VOLUME 78 FL (80-99); MEAN PLATELET VOLUME 10.8 FL (7.4-10.4); MONOCYTES # (AUTO) 0.1 X 10^3 (0.0-1.0); MONOCYTES % (AUTO) 6 % (0-12); NEUTROPHILS # (AUTO) 1.1 X 10^3 (1.8-7.8); NEUTROPHILS % (AUTO) 76 % (42-75); PLATELET COUNT 166 10^3/uL (130-400); RED BLOOD COUNT 3.47 10^6/uL (4.35-5.85); WHITE BLOOD COUNT 1.5 10^3/uL (4.3-11.0)
[2018-02-04 13:05] LABS: ALBUMIN 3.6 GM/DL (3.2-4.5); CALCIUM 7.8 MG/DL (8.5-10.1); CREATININE SERUM 1.88 MG/DL (0.60-1.30); POTASSIUM 3.8 MMOL/L (3.6-5.0); TOTAL PROTEIN 6.6 GM/DL (6.4-8.2)
[2018-02-08] MEDS ORDERED: WARF-48 PO ×2 (14:33)
[2018-02-08] MEDS ORDERED: BUME2TAB3 PO (14:33)
[2018-02-08] MEDS ORDERED: HYDR-3922 PO (14:33)
[2018-02-08] MEDS ORDERED: ASPI-983 PO (14:33)
[2018-02-11] MEDS ORDERED: CARV25TA PO (08:56)
[2018-02-11] MEDS ORDERED: BETA15CR4 TP (08:56)
[2018-02-11] MEDS ORDERED: HYDR-3922 PO (08:56)
[2018-02-11] MEDS ORDERED: WARF-48 PO (08:56)
[2018-02-11] MEDS ORDERED: DIPH1TAB PO (08:56)
[2018-02-11] MEDS ORDERED: CEPH-507 PO (08:59)
== END 2018-02-06 | disposition home or self-care (01) ==
LOC: ONC 12:08
PROVIDERS: ATTEND Internal Medicine Hematology & Oncology
DX: Z51.0 Encounter for antineoplastic radiation therapy (principal); C67.2 Malignant neoplasm of lateral wall of bladder; C34.11 Malignant neoplasm of upper lobe, right bronchus or lung; C77.1 Secondary and unspecified malignant neoplasm of intrathoracic lymph nodes; I25.10 Atherosclerotic heart disease of native coronary artery without angina pectoris; I11.0 Hypertensive heart disease with heart failure; Z80.0 Family history of malignant neoplasm of digestive organs; Z82.49 Family history of ischemic heart disease and other diseases of the circulatory system; Z87.19 Personal history of other diseases of the digestive system; Z92.21 Personal history of antineoplastic chemotherapy; Z88.0 Allergy status to penicillin; Z79.01 Long term (current) use of anticoagulants; Z95.1 Presence of aortocoronary bypass graft; Z90.89 Acquired absence of other organs; I48.2 Chronic atrial fibrillation; I27.20 Pulmonary hypertension, unspecified; I50.30 Unspecified diastolic (congestive) heart failure; D50.0 Iron deficiency anemia secondary to blood loss (chronic); Z79.899 Other long term (current) drug therapy
CPT/HCPCS: 36415; 77386; 80053; 85025

== ENCOUNTER 2018-02-04 13:17 | Emergency (ER) | payer MEDICARE, OTHER ==
[~2018-02-04] VITALS: Ht 177.8 cm; Wt 83.9 kg
--- OUTSIDE RECORDS SUMMARY | 2018-02-04 13:25 | XMS REPORT | Clinical Summary ---
Author Author [facility] Organization [facility] Address Unknown Phone Unavailable Care Team Providers Care Knotting Machine Operator Portable Name Role Phone Verna Ferro MD PCP Florentin Martinez MD 3 Source Comments Some departments are not documenting in the electronic medical record. If you do not see the information that you expected, contact Release of Information in the Health Information Management department at [phone] for further assistance in locating additional records.[facility] Allergies Active Allergy Reactions Severity Noted Date Comments Amoxicillin RASH Medium 10/27/2017 Nitroglycerin HYPOTENSION High Current Medications Prescription Sig. Disp. Refills Start End Date Status Date carvedilol (COREG) 25 mg Take 25 mg by mouth twice Active tablet daily with meals. Take with food. folic Take 1 tablet by mouth Active acid/multivit-min/lutein daily. (CENTRUM SILVER PO) lactobacillus rhamnosus Take 1 capsule by mouth Active (GG) (CULTURELLE) 10 daily with breakfast. billion cell cap tamsulosin (FLOMAX) 0.4 Take 0.4 mg by mouth Active mg capsule daily. Do not crush, chew or open capsules. Take 30 minutes following the same meal each day. atorvastatin (LIPITOR) 80 Take 80 mg by mouth Active mg tablet daily. cholecalciferol (VITAMIN Take 400 Units by mouth Active D-3) 400 unit tab tablet daily. ALPRAZolam (XANAX) 0.5 mg Take 0.5 mg by mouth Active tablet twice daily as needed for Anxiety. melatonin 3 mg tab Take 9 mg by mouth at Active bedtime daily. amLODIPine (NORVASC) 10 Take 1 tablet by mouth 90 tablet 3 11/05/19 Active mg tablet daily. 18 valsartan (DIOVAN) 80 mg Take 1 tablet by mouth 90 tablet 3 11/05/19 Active tablet daily. 18 aspirin EC 81 mg tablet Take 1 tablet by mouth 90 tablet 3 11/09/19 Active daily. Take with food. 18 hydrALAZINE (APRESOLINE) Take 1 tablet by mouth 180 tablet 3 11/20/19 Active 10 mg tablet twice daily. 18 fenofibrate Take 145 mg by mouth Active nanocrystallized (TRICOR) daily. Take with food. 145 mg tablet bumetanide (BUMEX) 2 mg Take one tablet by mouth 90 tablet 1 01/13/20 Active tablet daily. 18 bumetanide (BUMEX) 2 mg Take one tablet by mouth 180 tablet 3 01/13/20 Discontin tablet twice daily. 18 18 ued Active Problems Problem Noted Date Chronic diastolic heart failure, NYHA class 3 (HCC) 12/21/2017 Lung nodule 11/29/2017 Overview: Added automatically from request for surgery [id number] Mass of upper lobe of right lung 11/17/2017 Overview: Added automatically from request for surgery [id number] (HFpEF) heart failure with preserved ejection fraction (HCC) 11/07/2017 Malignant neoplasm of overlapping sites of bladder (HCC) 10/28/2017 Overview: Gross hematuria late 04/2017: negative hematuria workup 09/13/17: CT abdo/pelv shows left posterior bladder wall thickening along with a right upper lung mass with right hilar adenopathy, mild left hydronephrosis, along with possible liver disease and emphysema 09/21/17: TURBT shows high grade muscle invasive urothelial carcinoma 09/28/[address] shows uptake at the RUL mass and right hilar mass suggesting malignancy 10/06/17: FNA lung nodule is negative 10/28/17: Initial appointment with Dr. Divina Bernal ast Assessment & Plan: Mr. Schmitt is a 77 year old gentleman referred to Dr. Murcia for a new diagnosis of muscle-invasive bladder cancer. We had a long conversation with him where we explained the biology, grading, staging, and management of muscle-invasive bladder cancer including neoadjuvant chemotherapy and radical cystectomy. In his case, we emphasized that this plan is contingent upon the diagnosis of his lung mass and hilar adenopathy which has three main options including 1) metastatic urothelial carcinoma 2) primary lung cancer 3) Benign entities. Our treatment plan will depend on the plan from [facility] surgery and we will follow along with their plan to make decisions regarding his bladder cancer. Hilar mass 10/28/2017 Hx of CABG 10/28/2017 Squamous cell carcinoma of right lung (HCC) Overview: Ashley Schmitt is a 77 y.o. 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 A workup for hemoptysis and gross hematuria prompted a CT CAP on 09/13/17. This exam revealed soft tissue thickening in the bladder consistent with an obstructive neoplasm. Also noted was a RUL mass. On 09/21/17 he underwent cystoscopy and TURBT, with pathology consistent with high grade urothelial carcinoma with invasion of the muscularis propria, pT2. Staging workup with a PET/CT on 09/28/17 identified a hypermetabolic 2.7cm mass in the RUL (SUV 5) as well as a 3.9cm right suprahilar mass (SUV 10.5) without evidence of hypermetabolic mediastinal or pelvic lymphadenopathy. He underwent EBUS and FNA on 10/06/17 at OSH which showed nondiagnostic tissue at station 10R. He met in consultation with Dr. Flowers of CTS and Dr. Murcia of urology for further management. MRI of the brain on 11/08/17 was negative for intracranial metastasis. He established with cardiology prior to further workup, and required a right heart catheterization to evaluate his pulmonary hypertension. His ditching machine engineer has told him that any major surgery for his cancer diagnoses would be high risk from a cardiac standpoint. On 12/01/17 he underwent repeat EBUS / FNA with pathology consistent with poorly differentiated SCC at station 11R. RUL lung biopsy on 12/01/17 showed fragments of very atypical cells. Lung- Poorly differentiated Squamous cell carcinoma. PDL1 30% L ast Assessment & Plan: He is here for medical oncology consultation for above squamous cell carcinoma of lung. He has T2 and bulky hilar adenopathy. He concurrently has high grade muscle invasive bladder carcinoma, S/P TURB. I reviewed options. He is high risk for surgery with prior cardiac issues, he has concurrently bladder carcinoma as well. I discussed aggressive curative options and possible palliative only options. Because of localized nature of the disease, he has chance of being disease free for both bladder and Lung carcinoma. I recommend weekly carboplatin and paclitaxel with concurrent radiation for squamous cell lung carcinoma. Post chemoradiation, Durvalumab as in PACIFIC trial every 2 weeks for 12 months. Bladder carcinoma also is feasible to manage non surgically with radiation therapy. If technically possible and tolerated well, may consider radiation simultaneously. Post radiation durvalumab likely will benefit for his bladder carcinoma as well. His last PET was nearly 3 months ago. I also recommend PET scan for restaging and to make sure he does not have diffuse metastasis before making commitment for aggressive anti cancer therapy. He prefers treatment close to home. I called and discussed case with Dr. Wilber Lawson MD oncologist in [facility]. He will follow up with Dr. Lawson. Hypertension CAD (coronary artery disease) Aortic stenosis Arthritis Atrial fibrillation (HCC) GERD (gastroesophageal reflux disease) Hyperlipidemia Mitral valve regurgitation Pulmonary hypertension (HCC) Encounters Date Type Specialty Care Team Description 01/04/2018 Documentation Cardiology Marylou Wilhelm RN Labs Only (BMP) 12/23/2017 Telephone Cardiology Marylou Wilhelm RN Medication Follow-up (Diuretics) 12/21/2017 Office Visit Radiation Therapy Mason Barber MD Squamous cell carcinoma of lung, unspecified laterality (HCC) 12/21/2017 Office Visit Cardiology Akhil Gonzalez MD Post-hospital Follow Up (11/23/17 [facility] ); New To Provider (Hospital Only ) 12/21/2017 Office Visit Oncology Abdullahi Alicia, Squamous cell carcinoma MD of right lung (HCC) Abdon Hilton MD (Primary Dx) 12/10/2017 Telephone Oncology Abdon Hilton MD Navigation Assessment 12/09/2017 Telephone Cardiothoracic Surgery Afia Miller, CO FOUNDER AND CHIEF STRATEGY OFFICER-LODGING FACILITIES MANAGER Other (EBUS results) 12/09/2017 Orders Only Cardiothoracic Surgery Dori Pierce, JOSE MANUEL Squamous cell carcinoma of lung, unspecified laterality (HCC) (Primary Dx) 12/01/2017 Hospital Eduardo Brunson MD Lung nodule Encounter 12/01/2017 Procedure Pass 12/01/2017 Anesthesia Payton Galvez, PARTY PLAN SALES HOST/HOSTESS Event 12/01/2017 Procedure Pass 12/01/2017 Surgery Eduardo Brunson MD BRONCHOSCOPY RIGID 11/29/2017 Prep for Case Eduardo Brunson MD Lung nodule (Primary Dx) 11/25/2017 Telephone Cardiology Lacie Anderson LPN Medical Question 11/23/2017 Hospital Cardiology Cath, Physician Pulmonary hypertension Encounter Akhil Gonzalez MD (HCC) 11/23/2017 Anesthesia Cardiology Kim Emery, DARIEL Event 11/23/2017 Procedure Pass Cardiology 11/23/2017 Surgery Cardiology Akhil Gonzalez MD CATHETERIZATION RIGHT HEART 11/22/2017 Pre-Admit Cardiology Hallie Ayala APRN Pulmonary hypertension Orders Only (HCC) (Primary Dx); Heart failure with preserved ejection fraction (HCC) 11/22/2017 Prep for Case Cardiology Ines Salgado RN Pulmonary hypertension (HCC) (Primary Dx); (HFpEF) heart failure with preserved ejection fraction (HCC) 11/19/2017 Telephone Cardiothoracic Surgery Dori Pierce, JOSE MANUEL Follow-up Phone Call 11/17/2017 Telephone Cardiothoracic Surgery Dori Pierce RN Follow-up Phone Call 11/17/2017 Prep for Case Cardiothoracic Surgery Abdullahi Alicia, Hilar mass (Primary Dx); Mass of upper lobe of right lung 11/16/2017 Ancillary Radiology Outpatient, Radiologist Diagnosis unknown Orders 11/15/2017 Hospital Cardiology Florentin Martinez MD Encounter 11/08/2017 Hospital Radiology Encounter 11/08/2017 Telephone Cardiology Ines Salgado RN 11/08/2017 Orders Only Cardiothoracic Surgery Mary Mike RN Hilar mass (Primary Dx); Lung mass; Malignant neoplasm of overlapping sites of bladder (HCC) 11/04/2017 Office Visit Cardiology Florentin Martinez MD New Patient ; Follow Up from Last 3 Months Family History Medical History Relation Name Comments Heart Disease Father Cancer Mother Cancer Sister Relation Name Status Comments Father Mother Sister Social History Tobacco Use Types Packs/Day Years Used Date Current Some Day Smoker Cigars Smokeless Tobacco: Never Used Tobacco Cessation: Ready to Quit: Yes Alcohol Use Drinks/Week oz/Week Comments No Sex Assigned at Date Recorded Not on file Last Filed Vital Signs Vital Sign Reading Time Taken Blood Pressure 132/49 12/21/2017 12:55 PM CDT Pulse 69 12/21/2017 12:55 PM CDT Temperature 36.2 C (97.2 F) 12/21/2017 12:55 PM CDT Respiratory Rate 17 12/21/2017 9:33 AM CDT Oxygen Saturation 98% 12/21/2017 12:55 PM CDT Inhaled Oxygen - - Concentration Weight 84 kg (185 lb 3.2 oz) 12/21/2017 12:55 PM CDT Height 177.8 cm (5' 10") 12/21/2017 12:55 PM CDT Body Mass Index 26.57 12/21/2017 12:55 PM CDT Plan of Treatment Health Maintenance Due Date Last Done Comments PHYSICAL (COMPREHENSIVE) 1947 EXAM PERTUSSIS VACCINE 1951 TETANUS VACCINE 1957 SHINGLES RECOMBINANT 1990 VACCINE (1 of 2) PNEUMONIA (PCV13/PPSV23) 2005 VACCINES (1 of 2 - PCV13) INFLUENZA VACCINE 02/07/2018 02/18/2012, 02/25/2011, 02/10/2010, Additional history exists Procedures Procedure Name Priority Date/Time Associated Diagnosis Comments BASIC METABOLIC PANEL Routine 01/12/2018 Pulmonary hypertension Results for this 12:00 AM CDT (HCC) procedure are in the (HFpEF) heart failure results section. with preserved ejection fraction (HCC) PATHOLOGY REPORTS FROM 01/04/2018 Results for this OUTSIDE SCAN 11:37 AM CDT procedure are in the results section. BASIC METABOLIC PANEL Routine 12/31/2017 Pulmonary hypertension Results for this 12:00 AM CDT (HCC) procedure are in the (HFpEF) heart failure results section. with preserved ejection fraction (HCC) BASIC METABOLIC PANEL Routine 12/27/2017 Results for this 12:00 AM CDT procedure are in the results section. PROCEDURE RECORD-SCAN 12/02/2017 Results for this 3:14 PM CDT procedure are in the results section. TELEMETRY STRIPS-SCAN 12/02/2017 Results for this 3:11 PM CDT procedure are in the results section. SURGICAL PATHOLOGY 12/01/2017 Results for this 4:33 PM CDT procedure are in the results section. FINE NEEDLE ASPIRATE 12/01/2017 Results for this (FNA) 3:31 PM CDT procedure are in the results section. CULTURE-FUNGAL,OTHER Routine 12/01/2017 Results for this 3:17 PM CDT procedure are in the results section. CULTURE-TB (AFB) Routine 12/01/2017 Results for this 3:17 PM CDT procedure are in the results section. CT CHEST WO CONTRAST STAT 12/01/2017 Results for this 2:05 PM CDT procedure are in the results section. BRONCHOSCOPY 12/01/2017 Results for this 1:50 PM CDT procedure are in the results section. BRONCHOSCOPY WITH 12/01/2017 Lung nodule ULTRASOUND 1:45 PM CDT Special Needs Brunson/Sherino ud. Please sched 12/01/17 @ 1:30pm. 2 hr block. Thanks BRONCHOSCOPY RIGID 12/01/2017 Lung nodule 1:45 PM CDT Special Needs Brunson/Abbo ud. Please sched 12/01/17 @ 1:30pm. 2 hr block. Thanks BASIC METABOLIC PANEL 12/01/2017 Results for this 1:13 PM CDT procedure are in the results section. NON-STAGE TECHNICIAN CYTOLOGY (BODY 12/01/2017 Results for this FLUIDS/TISSUE) 9:48 AM CDT procedure are in the results section. PROCEDURE RECORD-SCAN 11/24/2017 Results for this 1:10 PM CDT procedure are in the results section. TELEMETRY STRIPS-SCAN 11/24/2017 Results for this 1:01 PM CDT procedure are in the results section. CARDIAC CATH REPORT 11/23/2017 Results for this 2:48 PM CDT procedure are in the results section. O2HGB SAT-VENOUS POC 11/23/2017 Results for this 2:30 PM CDT procedure are in the results section. MAGNESIUM STAT 11/23/2017 Results for this 11:28 AM CDT procedure are in the results section. BASIC METABOLIC PANEL STAT 11/23/2017 Results for this 11:28 AM CDT procedure are in the results section. CBC STAT 11/23/2017 Results for this 11:28 AM CDT procedure are in the results section. CATHETERIZATION RIGHT Routine 11/23/2017 Pulmonary hypertension HEART 10:54 AM CDT (HCC) (HFpEF) heart failure with preserved ejection fraction (HCC) 2-D + DOPPLER Routine 11/15/2017 Mitral valve Results for this ECHOCARDIOGRAM 2:56 PM CDT insufficiency, procedure are in the unspecified etiology results section. (HFpEF) heart failure with preserved ejection fraction (HCC) MRI HEAD EXTERNAL IMAGING Routine 11/08/2017 Diagnosis unknown Results for this 12:00 AM CDT procedure are in the results section. ECG-SCAN 11/05/2017 Results for this 10:40 PM CDT procedure are in the results section. from Last 3 Months Results * BASIC METABOLIC PANEL (01/12/2018) Only the most recent of 5 results within the time period is included. Sodium 139 [facility] Potassium 4.3 [facility] Chloride 108 (A) 98 - 107 [facility] CO2 21 [facility] Blood Urea Nitrogen 47 (A) 7 - 18 [facility] Creatinine 2.25 (A) 0.6 - 1.3 [facility] Glucose 108 (A) 70 - 105 [facility] Calcium 9.9 [facility] eGFR Non [facility] eGFR [facility] Anion Gap [facility] Specimen Blood - Blood Narrative Performed At Pt currently on bumex 2mg [address] P[address] Ferro recommended [facility] decreasing to 0.5 tab.Pt's creatinine still increased from [facility] baseline.Routing to [facility] for review. Performing Organization Address City/State/Zipcode Phone Number [facility] [address] [place] [address] [facility] * PATHOLOGY REPORTS FROM OUTSIDE SCAN (01/04/2018 11:37 AM) Narrative Performed At Ordered by an unspecified provider. * PROCEDURE RECORD-SCAN (12/02/2017 3:14 PM) Narrative Performed At Ordered by an unspecified provider. * TELEMETRY STRIPS-SCAN (12/02/2017 3:11 PM) Narrative Performed At Ordered by an unspecified provider. * SURGICAL PATHOLOGY (12/01/2017 4:33 PM) PATHOLOGY REPORT [facility] [address] [email or web address] Department of Pathology and Laboratory Medicine [address] [place] [address] Surgical Pathology Office:[phone] :[phone] SURGICAL PATHOLOGY REPORT NAME: ASHLEY SCHMITT SURG PATH #: [id number] MR #: [id number] SPECIMEN CLASS: SR BILLING #: [id number] ALT ID #:LOCATION: ENDO DATE OF PROCEDURE: 12/01/2017 AGE:77 SEX: M DATE RECEIVED: 12/01/2017 : 1940TIME RECEIVED:16:33 PHYSICIAN: EDUARDO BRUNSON DATE OF REPORT: 12/03/2017 COPY TO:DATE OF PRINTIN12/03/2017 ############################## ############################## ############ Final Diagnosis: A. Respiratory and focal squamous epithelium, "right upper lobe mass biopsy": Minute fragment of markedly atypical cells, cannot exclude carcinoma. Please correlate with the concurrent cytology specimen ([id number]). See comment. Comment: Immunostains performed on block A1 demonstrate that the very scant atypical cells show focal positivity for P40 and are negative for GATA3, TTF-1 and synaptophysin while stains for CD56, CK 5/6, Ki-67 and CK7 are noncontributory, owing to exhaustion of the atypical focus on the sections stained. Attestation: By this signature, I attest that I have personally formulated the final interpretation expressed in this report and that the above diagnosis is based upon my examination of the slides and/or other material indicated in this report. +++ +++ ksw/12/02/2017 ############################## ############################## ############ Material Received: A: right upper lobe mass biopsy History: 77-year-old male with a history of lung nodule. Gross Description: A. Received in formalin labeled "right upper lobe mass biopsy" is a 0.5 x 0.2 x 0.1 cm aggregate of irregular, pale cornejo soft tissue fragments. The specimen is entirely submitted in cassettes A1-A2. () /12/01/2017 If immunohistochemical stains and/or in situ hybridization are cited in this report, the performance characteristics were determined by the Department of Pathology and Laboratory Medicine of the [facility] ([employer]) in compliance with CLIA'88 regulations.Some of these tests rely on the use of "analyte specific reagents" and are subject to specific labeling requirements by the FDA. Known positive and negative control tissues demonstrate appropriate staining.Results should be interpreted with caution given the likelihood of false negativity on decalcified specimens.This testing was developed by the Department of Pathology and Laboratory Medicine of the [facility].It has not been cleared or approved by the FDA.The FDA has determined that such clearance or approval is not necessary. Performing Organization Address City/State/Zipcode Phone Number [facility] * FINE NEEDLE ASPIRATE (FNA) (12/01/2017 3:31 PM) Cytology [facility] [address] [email or web address] Department of Pathology and Laboratory Medicine [address] [place] [address] Surgical Pathology Office:[phone] :[phone] CYTOLOGY REPORT NAME: ASHLEY SCHMITT SURG PATH #: [id number] MR #: [id number] ALT ID #: BILLING #: [id number] LOCATION: [facility] DATE OF PROCEDURE: 12/01/2017 AGE: 77 SEX: M DATE RECEIVED: 12/01/2017 : 1940TIME RECEIVED:15:31 PHYSICIAN: EDUARDO BRUNSON DATE OF REPORT: 12/06/2017 COPY TO:DATE OF PRINTIN12/08/2017 Material Received: A: FNA Lymph Node-angela station 7 B: FNA Lymph Node-angela station 11 right C: FNA Lung- RUL History: 77 year old male with history of bladder carcinoma and right upper lobe lung mass. Gross Description: A.( 2 DQ direct smear, 2 Pap direct smear, 1 cell block) Rapid determination of adequacy was performed by the flue gas analystBHAVANI, on Diff-Quik stained slide(s). Pass 1 and 2 were not adequate for evaluation. Pass 3 was placed entirely in RPMI for cell block preparation. B.( 2 DQ direct smear, 2 Pap direct smear, 1 cell block) Rapid determination of adequacy was performed by the flue gas analystBHAVANI, on Diff-Quik stained slide(s). Pass 1 and 2 were not adequate for evaluation. Pass 3 was placed entirely in RPMI for cell block preparation. C. (Cell block) No adequacy was performed. Received 25mL of red fluid in RPMI labeled "RUL FNA". ############################## ############################## ############ Final Diagnosis: A. Lymph Node, station 7, EBUS guided FNA: Polymorphous population of lymphocytes. No carcinoma identified in the sampled specimen. B. Lymph Node, station 11R, EBUS guided FNA: Poorly differentiated carcinoma with extensive necrosis, favor squamous carcinoma. See comment. C. Lung, right upper lobe, EBUS guided FNA: Scant fragment of carcinoma. See comment. Please also see concurrent surgical pathology report ([id number]). Comment: Immunostains performed on the cell block B1 demonstrates that the tumor cells are diffusely positive for P40 and CK 5/6 and are negative for GATA3, TTF-1 and CD56, supporting the above interpretation. Immunostain for CK 20 and PD-L1 will be reported as an addendum. The cellblock for part B contains sufficient tumor tissue for further testing (block B1). The cellblocks for parts A and C contain insufficient tissue, precluding further testing. Pursuant to the [employer] Installer Program at the [facility] Pathology Department, selected slides from this case have been concurrently reviewed by the following pathologist: Dr. Cleveland who agrees with the final diagnosis. Attestation: By this signature, I attest that I have personally formulated the final interpretation expressed in this report and that the above diagnosis is based upon my examination of the slides and/or other material indicated in this report. +++Electronically Signed Out By+++ 12/02/2017 Interpreted by: AYANA Mccarty D.O. Procedures/Addenda Addendum Date Ordered: 12/08/2017 Status:Signed Out Date Complete: 12/08/2017 By: AYANA Mccarty Date Reported: 12/08/2017 Addendum Diagnosis PD-L1: Results: % Positive: 30% Interpretation: Low PD-L1 expression (Tumor proportion Score 1-49%) Comment: PD-L1 test name: DAKO PD-L1 IHC 22C3 pharmDX Cell types evaluated: Tumor cells FDA status: Electronic Resources Librarian Addendum Comment A CK20 immunostain on the cell block is negative in the tumor cells, supporting the original diagnosis. AYANA Mccarty Performing Organization Address City/State/Zipcode Phone Number [facility] * CULTURE-FUNGAL,OTHER (12/01/2017 3:17 PM) Battery Name FUNGUS CULTURE MAIN LAB Specimen Description TISSUE MAIN LAB RIGHT UPPER LOBE MASS Special Requests NONE [facility] Culture NO GROWTH OF FUNGUS AT 4 WEEKS [facility] Report Status FINAL MAIN LAB 01/03/2018 Specimen Tissue Performing Organization Address City[facility] Phone Number MA[facility] LAB [address] [place] [address] * CULTURE-TB (AFB) (12/01/2017 3:17 PM) Battery Name AFB CULTURE [facility] Specimen Description TISSUE MAIN LAB RIGHT UPPER LOBE MASS Special Requests NONE MAIN LAB Culture NO GROWTH OF MYCOBACTERIA AT 6 [facility]IN [facility] WEEKS Report Status FINAL MAIN LAB 01/17/2018 Specimen Tissue Performing Organization Address [facility] Phone Number MAIN LAB [address] [place] [address] * CT CHEST WO CONTRAST (12/01/2017 2:05 PM) Impressions Performed At 1.Increase in size of a lobulated right upper lobe mass since 09/13/2017. This [facility] may represent primary or secondary lung neoplasm given metabolic activity on outside PET/CT. 2.Right suprahilar mass, likely a collateral hilar metastasis. 3.No significant change in platelike consolidation at the left lung base which demonstrated no significant FDG uptake on the outside PET/CT. This may represent a chronic area of scarring, atelectasis or resolving pneumonitis. Continued attention on follow-up imaging is recommended to evaluate for long-term stability. 4.Marked emphysematous changes throughout both lungs with extensive areas of pleural-parenchymal scarring and fibrosis, greatest in the lung bases. 5.No significant change in mild dilatation of the left upper pole renal collecting system, likely due to distal obstruction by known bladder cancer. 6.Cholelithiasis. Finalized by Chapis Kelly M.D. on 12/01/2017 2:38 PM. Dictated by Chapis Kelly M.D. on 12/01/2017 2:16 PM. Narrative Performed At CT CHEST [facility] RAD RESULTS Clinical Indication:Male, 77 years old. Veran procedure, right hilar and pulmonary mass. Technique: Multiple contiguous axial CT images were obtained through the chest without IV contrast. High resolution imaging was obtained during both inspiration and expiration. Post processing coronal and sagittal reconstruction images were made from the axial images. IV contrast: None. Comparison: CT chest performed at an outside facility 09/13/2017; PET CT 2017 FINDINGS: Evaluation of the mediastinum and lesvia, including the vasculature and for lymphadenopathy, is limited without the use of IV contrast. Lower Neck: Unremarkable Axilla, Mediastinum and Lesvia: There is a large right suprahilar mass which measures 3.3 x 2.8 cm (image 2/29). A few normal-sized mediastinal lymph nodes are noted, unchanged. No axillary adenopathy. Heart and Great Vessels: The heart is enlarged. No pericardial effusion. There is at least moderate calcification of the aortic valve. Prior median sternotomy and CABG with dense calcification of the upper skagit coronary arteries. The thoracic aorta is normal in caliber with moderate calcified plaque. Airway, Lungs and Pleura: Central airways are patent, though there is mild retained secretions in the right middle lobe bronchus. Marked emphysema throughout both lungs with extensive pleural parenchymal scarring/fibrosis, greatest in the lung bases. There is a lobulated mass in the right upper lobe which measures 3 x 2 cm (image 2/26), previously 2.4 x 2 cm on the outside exam 09/13/2017. Slightly lobulated consolidation in the left posterior base (image 2/49), which is not significantly changed since the prior study. A few scattered calcified granulomas are noted in both lungs. No pleural effusion or pneumothorax. Mild air trapping in both upper lobes. No honeycombing. Upper Abdomen: Cholelithiasis. No significant change in mild dilatation of the left upper pole collecting system. Unchanged coarse calcification in the pancreatic tail. Chest Wall and Osseous Structures: Mild, diffuse bony demineralization with cervical and thoracic spondylosis noted. No aggressive osseous lesions. There is healed right posterolateral rib fracture deformities. Procedure Note Interface, Radiant Results - 12/01/2017 2:[address] CHEST Clinical Indication: Male, 77 years old. Veran procedure, right hilar and pulmonary mass. Technique: Multiple contiguous axial CT images were obtained through the chest without IV contrast. High resolution imaging was obtained during both inspiration and expiration. Post processing coronal and sagittal reconstruction images were made from the axial images. IV contrast: None. Comparison: CT chest performed at an outside facility 09/13/2017; PET CT 09/28/2017 FINDINGS: Evaluation of the mediastinum and lesvia, including the vasculature and for lymphadenopathy, is limited without the use of IV contrast. Lower Neck: Unremarkable Axilla, Mediastinum and Lesvia: There is a large right suprahilar mass which measures 3.3 x 2.8 cm (image 2/29). A few normal-sized mediastinal lymph nodes are noted, unchanged. No axillary adenopathy. Heart and Great Vessels: The heart is enlarged. No pericardial effusion. There is at least moderate calcification of the aortic valve. Prior median sternotomy and CABG with dense calcification of the upper sk[place] coronary arteries. The thoracic aorta is normal in caliber with moderate calcified plaque. Airway, Lungs and Pleura: Central airways are patent, though there is mild retained secretions in the right middle lobe bronchus. Marked emphysema throughout both lungs with extensive pleural parenchymal scarring/fibrosis, greatest in the lung bases. There is a lobulated mass in the right upper lobe which measures 3 x 2 cm (image 2/26), previously 2.4 x 2 cm on the outside exam 09/13/2017. Slightly lobulated consolidation in the left posterior base (image 2/ 49), which is not significantly changed since the prior study. A few scattered calcified granulomas are noted in both lungs. No pleural effusion or pneumothorax. Mild air trapping in both upper lobes. No honeycombing. Upper Abdomen: Cholelithiasis. No significant change in mild dilatation of the left upper pole collecting system. Unchanged coarse calcification in the pancreatic tail. Chest Wall and Osseous Structures: Mild, diffuse bony demineralization with cervical and thoracic spondylosis noted. No aggressive osseous lesions. There is healed right posterolateral rib fracture deformities. IMPRESSION 1. Increase in size of a lobulated right upper lobe mass since 09/13/2017. This may represent primary or secondary lung neoplasm given metabolic activity on outside PET/CT. 2. Right suprahilar mass, likely a collateral hilar metastasis. 3. No significant change in platelike consolidation at the left lung base which demonstrated no significant FDG uptake on the outside PET/CT. This may represent a chronic area of scarring, atelectasis or resolving pneumonitis. Continued attention on follow-up imaging is recommended to evaluate for long- term stability. 4. Marked emphysematous changes throughout both lungs with extensive areas of pleural-parenchymal scarring and fibrosis, greatest in the lung bases. 5. No significant change in mild dilatation of the left upper pole renal collecting system, likely due to distal obstruction by known bladder cancer. 6. Cholelithiasis. Finalized by Chapis Kelly M.D. on 12/01/2017 2:38 PM. Dictated by Chapis Kelly M.D. on 12/01/2017 2:16 PM. Performing Organization Address City/State/Zipcode Phone Number [facility] RAD RESULTS * BRONCHOSCOPY (12/01/2017 1:50 PM) Provation Report Patient Name: Ashley WEIR OTHER RESULTS Procedure Date: 12/01/2017 1:50 PM [facility]: [id number] Date of : 1940 Gender: Male Attending Physician: Eduardo Brunson MD Procedure: Bronchoscopy Indications: Right upper lobe mass Providers: Eduardo Brunson MD (Doctor), Milla Lou (Nurse), Vera Stewart RN (Nurse), Bon Angel, Retail Sales Lead (Retail Sales Lead), Minal Vega, Retail Sales Lead (Retail Sales Lead) Referring Physician:Verna Ferro Medications: Tetricaine 0.25%/Epinephrine 0.003% 10 mL nebulizer, Tetricaine 0.25%/Epinephrine 0.003% topically on airway mucosa 10 mL, General Anesthesia Complications: No immediate complications Findings: Endobronchial ultrasound was used assist with fine needle aspiration and/or characterization of lymph node stations 1R, 1L, 2R, 2L, 4R, 4L, 10R, 10L, 11Rs, 11Ri, 11L and 7. Only the following lymphnode stations were determined to be larger than 5mm on EBUS and/or metabolically active on PET then sampled using EBUS FNA: Lymph Nodes: Lymph node sizing was performed via endobronchial ultrasound for presumed lung cancer. Sampling by transbronchial needle aspiration was also performed 19 gauge Olympus in the subcarinal mediastinum (level 7) and right superior interlobar region (level 11Rs) and sent for routine cytology. - The 7 (subcarinal) node was 15 mm by EBUS. Three samples with the needle were obtained. - The 11Rs (superior interlobar) node was not measured. Four samples with the needle were obtained. Rapid On-Site Evaluation (NISH): - 7 (subcarinal): preliminary cytology was suggestive of benign-appearing lymphoid tissue (final results are pending). - 11Rs (superior interlobar): preliminary interpretation suggested inadequate cellularity. Electromagnetic navigation bronchoscopy utilizing the [employer] system was performed. The CT scan was used for planning purposes. A virtual bronchoscopic image was generated using the planning software and the marianne and left main bronchus marianne registration points were marked on the virtual image. The target in the anterior segment of the right upper lobe was marked. A mass 4 cm in size was found and a pathway was created. After a complete airway exam, the locatable guide/extended working channel was inserted and the pre-planned fiducial landmarks, including marianne and left main bronchus marianne were registered. The navigation phase was then begun to locate the target lesion(s). The locatable guide was removed from the extended working channel. Transbronchial biopsies of a mass were performed in the anterior segment of the right upper lobe Veran forceps and sent for histopathology examination. The procedure was guided by electromagnetic navigation. Transbronchial biopsy technique was selected because the sampling site was not visible endoscopically. The sampling device penetrated the full thickness of the bronchial wall to obtain the biopsy of lung tissue. Ten biopsy passes were performed. Ten biopsy samples were obtained. Transbronchial needle aspirations of a mass were performed in the anterior segment of the right upper lobe Veran SpinExtend Needle and sent for routine cytology. The procedure was guided by electromagnetic navigation. Three samples were obtained. Transbronchial brushings of a mass were obtained in the anterior segment of the right upper lobe with a Veran brush and sent for routine cytology. One sample was obtained. Impression: - Right upper lobe mass - Endobronchial ultrasound was performed. - Lymph node sizing and sampling was performed. - Rapid On-Site Evaluation (NISH): Preliminary cytology was suggestive of the following: - 7 (subcarinal): of benign-appearing lymphoid tissue. - 11Rs (superior interlobar): preliminary interpretation suggested inadequate cellularity. (Final results are pending). - Electromagnetic navigation bronchoscopy was performed. - Transbronchial lung biopsies were performed. - A transbronchial needle aspiration was performed. - Transbronchial brushings were obtained. Estimated Blood Loss: Estimated blood loss: none. Recommendation: - Await test results. Scope In: 2:27:36 PM Scope Out: 3:43:33 PM Attending Participation: I was present and participated during the entire procedure, including non-goldberg portions. MD Eduardo Wing MD 12/01/2017 3:54:01 PM The attending physician has electronically signed and finalized this document. Number of Addenda: 0 Note Initiated On: 12/01/2017 1:50 PM Performing Organization Address City/State/Zipcode Phone Number K[facility] OTHER RESULTS * NON-STAGE TECHNICIAN CYTOLOGY (BODY FLUIDS/TISSUE) (12/01/2017 9:48 AM) Cytology [facility] [address] [email or web address] Department of Pathology and Laboratory Medicine [address] [place] [address] Surgical Pathology Office:[phone] :[phone] CYTOLOGY REPORT NAME: ASHLEY SCHMITT CYTOLOGY #: [id number] MR #: [id number] ALT ID #: BILLING #: [id number] LOCATION: [facility] DATE OF PROCEDURE: 12/01/2017 AGE: 77 SEX: M DATE RECEIVED: 12/02/2017 : 1940TIME RECEIVED:09:48 PHYSICIAN: EDUARDO BRUNSON DATE OF REPORT: 12/02/2017 COPY TO:DATE OF PRINTIN12/02/2017 Material Received: A: Bronchial Brushing-RUL History: 77 year old male with history of urothelial carcinoma and lung lesion. Gross Description: ( 1 ThinPrep, 1 Pap direct smear) 20ml bloody fluid w/ one brush. ############################## ############################## ############ Final Diagnosis: A. Bronchial Brushing-RUL: Negative for malignant cells. Please also see concurrent cytology report ([id number]) and surgical pathology report ([id number]). Attestation: By this signature, I attest that I have personally formulated the final interpretation expressed in this report and that the above diagnosis is based upon my examination of the slides and/or other material indicated in this report. +++Electronically Signed Out By+++ dianna/12/02/2017 Interpreted by: MD Jalyn Mcfadden MD Resident Performing Organization Address City/State/Zipcode Phone Number LAB RESULTS * PROCEDURE RECORD-SCAN (11/24/2017 1:10 PM) Narrative Performed At Ordered by an unspecified provider. * TELEMETRY STRIPS-SCAN (11/24/2017 1:01 PM) Narrative Performed At Ordered by an unspecified provider. * CARDIAC CATH REPORT (11/23/2017 2:48 PM) Procedure Note Akhil Gonzalez MD - 11/23/2017 2:48 PM CDT [facility] at [facility] CARDIAC CATHETERIZATION REPORT Page 2 ASHLEY Soto : 1940 #: [id number] MR #/Billing ID #: [id number] / [id number] DATE: 11/23/2017 DOCTOR OF PHARMACY: Akhil Gonzalez MD DICTATING PROVIDER: Akhil Gonzalez MD REFERRING PHYSICIAN: Abdullahi Alicia MD NAME OF PROCEDURE: Right heart catheterization. REASON FOR REFERRAL: The patient is about to undergo thoracic surgery including possible lung tumor resection and possible partial lung resection and has a history of heart failure with preserved ejection fraction and has evidence on echocardiographic imaging for pulmonary hypertension. We are here for risk stratification preoperatively. INFORMED CONSENT: After discussing risks, benefits, and alternatives to the planned procedure and also discussing risks, benefits, and alternatives of conscious sedation, the patient agrees to proceed forward with the right heart catheterization and also agrees to forego conscious sedation after discussion of risks, benefits, and alternatives. PROCEDURAL DETAILS: The patient was brought to the cardiac catheterization lab in a fasting nonsedated state. The right internal jugular vein was prepped and draped in the usual sterile fashion. Using about 8 mL of lidocaine, the patient was given local anesthetic. Ultrasound was used to directly visualize the right internal jugular vein, and using a micropuncture, the right internal jugular vein was accessed, and ultimately, a 7-Belizean sheath was inserted into the right internal jugular vein. We then proceeded with a standard right heart catheterization which included measurements of the right atrial, right ventricular, pulmonary artery and pulmonary wedge pressures as well as thermodilution and Cat cardiac output and cardiac index. FINDINGS: At the time of the patient's cardiac catheterization, the blood pressure was noted to be 159/78 with a mean of 116 mmHg. The right atrial pressure at end expiration was noted to be 10 mmHg. The right ventricular pressure at end expiration was noted to be 48/0 with an end-diastolic pressure of 9 mmHg. The pulmonary artery pressure was 49/13 with a mean of 30 mmHg. The pulmonary wedge pressure end expiration was noted to be 24 mmHg. The Cat cardiac output was 4.1 L/min with a Cat cardiac index of 2.1 L/min per sq m. An average thermodilution cardiac output was 4.3 L/min with a cardiac index of 2.2 L/min per sq m. CONCLUSION: This was a standard right heart catheterization performed which is consistent with pulmonary hypertension as well as elevated wedge pressure consistent with his known diagnosis of heart failure with preserved ejection fraction. There is borderline low normal cardiac output based on both thermodilution and Cat cardiac output indices. I discussed the case with Dr. 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 The patient does have some increased risk for decompensation and heart failure progression. Please refer to my partner's note, Dr. Florentin Martinez, for additional details related to this patient. MD JOHN Sylvester/Dagmar /[id number] cc: - Abdullahi Alicia MD Performing Organization Address City/State/[facility] Phone Number OTHER OUTSIDE LAB * O2HGB SAT-VENOUS POC (11/23/2017 2:30 PM) O2HGB SAT-Venous POC 60.2 55 - 71 % MAIN LAB Performing Organization Address City/State/[facility] Cent[facility] Phone Number [facility] [address] [place] [address] * CBC (11/23/2017 11:28 AM) White Blood Cells 8.4 4.5 - 11.0 K/UL [facility] RBC 4.67 4.4 - 5.5 M/UL [facility] Hemoglobin 12.5 (L) 13.5 - 16.5 GM/DL [facility] Hematocrit 37.1 (L) 40 - 50 % [facility] MCV 79.3 (L) 80 - 100 FL [facility] MCH 26.7 26 - 34 PG [facility] MCHC 33.6 32.0 - 36.0 G/DL [facility] RDW 18.3 (H) 11 - 15 % [facility] Platelet Count 340 150 - 400 K/UL [facility] MPV 8.8 7 - 11 FL [facility] Specimen Blood Performing Organization Address City/[facility]/Zipcode Phone Number [facility] [address] [place] [address] * MAGNESIUM (11/23/2017 11:28 AM) Magnesium 1.9 1.6 - 2.6 mg/dL [facility] Specimen Blood Performing Organization Address City/[facility]/Zipcode Phone Number [facility] [address] [place] [address] * 2-D + DOPPLER ECHOCARDIOGRAM (11/15/2017 2:56 PM) LVOT diameter 2.02 cm OTHER OUTSIDE LAB IVS 1.54 0.6 - 1.0 cm OTHER OUTSIDE LAB LVIDD 4.62 4.2 - 5.8 cm OTHER OUTSIDE LAB LVIDS 2.8 2.5 - 4.0 cm OTHER OUTSIDE LAB PW 1.46 0.6 - 1.0 cm OTHER OUTSIDE LAB LVOT peak kacy 0.94 m/s OTHER OUTSIDE LAB LVOT peak VTI 0.24 meter OTHER OUTSIDE LAB Right Ventricular Mid 2.28 1.9 - 3.5 cm OTHER OUTSIDE LAB Diameter LA size 5.85 3.0 - 4.0 cm OTHER OUTSIDE LAB LA volume 90.75 18 - 58 mL OTHER OUTSIDE LAB Right Atrial Area 32.53 <18 cm2 OTHER OUTSIDE LAB Right Atrial Major 6.78 2.1 - 2.7 cm OTHER OUTSIDE LAB Dimension , with a mean gradient of 17.48 mmHg OTHER OUTSIDE LAB and a peak gradient of 32.23 mmHg OTHER OUTSIDE LAB AV peak velocity 2.84 m/s OTHER OUTSIDE LAB Ao VTI 0.68 meter OTHER OUTSIDE LAB Right Ventricular Basal 4.35 2.5 - 4.1 cm OTHER OUTSIDE LAB Diameter Right Heart Systolic 1.21 >1.7 cm OTHER OUTSIDE LAB Mmode TAPSE Sinus 3.13 3.1 - 3.7 cm OTHER OUTSIDE LAB BSA 2 m2 OTHER OUTSIDE LAB FS 39.39 28 - 44 % OTHER OUTSIDE LAB EF 66.96 % OTHER OUTSIDE LAB Left Atrium Index 45.38 16 - 34 OTHER OUTSIDE LAB AV index (upper skagit) 0.33 OTHER OUTSIDE LAB LVOT area 3.20 cm2 OTHER OUTSIDE LAB LVOT stroke volume 0.77 cm3 OTHER OUTSIDE LAB Referring Provider Verna Ferro MD OTHER OUTSIDE LAB LV mass 286.67 96 - 200 g OTHER OUTSIDE LAB RWT 0.63 <=0.42 OTHER OUTSIDE LAB Cardiology Ultrasound Siemens [id number] OTHER OUTSIDE LAB Machine Left Ventricle Mass Index 143.34 50 - 102 g/m2 OTHER OUTSIDE LAB Aortic valve area= 1.13 cm2 OTHER OUTSIDE LAB TV rest pulmonary artery 50 mmHg OTHER OUTSIDE LAB pressure Right Heart Systolic TDI 0.080 m/s OTHER OUTSIDE LAB S' ECHO EF 65 % OTHER OUTSIDE LAB Narrative Performed At OTHER OUTSIDE LAB Monophasic mitral diastolic flow consistent with atrial fibrillation. Normal global left ventricular contractility estimated LVEF 60-65%: Moderate concentric LV hypertrophy. Aortic arch not well visualized Right ventricle is not well visualized on apical images.On the parasternal images RV contractility is probably normal although RVs' and RV TAPSE are depressed. Moderate left atrial and moderate to severe right atrial dilatation. Mild mitral annular calcification with normal mitral valve leaflet motion. Aortic stenosis with very restricted mobility of the left coronary cusp. Mean aortic gradient 17.48 mmHg, peak aortic gradient 32.23 peak velocity 2.4 m/s.mHg, aortic velocity ratio 0.33, and calculated aortic valve area 1.13 cm. Normal tricuspid and pulmonic valve motion. Trace pulmonic, mild mitral, and moderate to severe tricuspid regurgitation. Estimated PA pressure is elevated, 60 mmHg. No prior study available for comparison Performing Organization Address City/State/Zipcode Phone Number OTHER OUTSIDE LAB * MRI HEAD EXTERNAL IMAGING (11/08/2017) Narrative Performed At This order has been auto finalized and does not contain a result. * ECG-SCAN (11/05/2017 10:40 PM) Narrative Performed At Ordered by an unspecified provider. from Last 3 Months
--- OUTSIDE RECORDS SUMMARY | 2018-02-04 13:25 | XMS REPORT | Encounter Summary ---
Author Author [facility] Organization [facility] Address Unknown Phone Unavailable Care Team Providers Care Sole Cementer Name Role Phone Verna Ferro MD PCP Florentin Martinez MD 3 Encounter Details Date Type Department Care Team Description 12/01/2017 Procedure Pass Gastrointenstinal Endoscopy [address] [place] [address] Social History Tobacco Use Types Packs/Day Years Used Date Current Some Day Smoker Cigars Smokeless Tobacco: Never Used Alcohol Use Drinks/Week oz/Week Comments No Sex Assigned at Date Recorded Not on file as of this encounter Functional Status Functional Status Response Date of Assessment Does the patient have a hearing impairment: No 11/04/2017 Does the patient have a visual impairment: Yes 11/04/2017 Does the patient have impaired ambulation: No 11/04/2017 Does the patient have an activity of daily living No 11/04/2017 (ADL) impairment: Does the patient have an instrumental activity of No 11/04/2017 daily living (IADL) impairment: Cognitive Status Response Date of Assessment Does the patient have a cognitive impairment: No 11/04/2017 as of this encounter Plan of Treatment Not on fileas of this encounter Visit Diagnoses Not on filein this encounter
--- OUTSIDE RECORDS SUMMARY | 2018-02-04 13:25 | XMS REPORT | Encounter Summary ---
Author Author [facility] Organization [facility] Address Unknown Phone Unavailable Care Team Providers Care Radio Engineering Teacher Name Role Phone Verna Ferro MD PCP Florentin Martinez MD 3 Reason for Referral * Consult, Test & Treat Status Reason Specialty Diagnoses / Referred By Referred To Procedures Contact Contact Closed Specialty Radiation Therapy Diagnoses Kacie Alicia [facility] Services Squamous long Fernando MD Therapy Required carcinoma of [address] lung, [facility] unspecified [place] [address] Onc laterality (HCC) [place], [place] [address] [address] [place], [place] Phone: Scheduling Instructions This referral requires a phone call to schedule with Radiation Oncology. See locations below: CC RADIATION THERAPY: [facility] RAD THER: [facility] RAD THER: [facility] OP RAD THER: * Consult, Test & Treat Status Reason Specialty Diagnoses / Referred By Referred To Procedures Contact Contact No Auth Needed Specialty Oncology Diagnoses Kacie Alicia - [facility] Squamous long Fernando MD Exm/Proc Rm Required carcinoma of [address] [facility] lung, [facility] unspecified [place] [address] laterality (HCC) [place], [place] [address] [address] [place], [place] Phone: Encounter Details Date Type Department Care Team Description 12/09/2017 Orders Only [facility] & Dori Pierce, JOSE MANUEL Squamous cell carcinoma [facility]ovascular Surgeons of lung, unspecified [facility] [id number] laterality (HCC) (Primary [address] Dx) [place] [address] Social History Tobacco Use Types Packs/Day Years [...] as of this encounter Plan of Treatment Name Priority Associated Diagnoses Order Schedule AMB REFERRAL TO ONCOLOGY Routine Squamous cell carcinoma Ordered: 2017 of lung, unspecified laterality (HCC) AMB REFERRAL TO RADIATION ONCOLOGY Routine Squamous cell carcinoma Ordered: 12/09/2017 of lung, unspecified laterality (HCC) as of this encounter Visit Diagnoses Diagnosis Squamous cell carcinoma of lung, unspecified laterality (HCC) - Primary
--- OUTSIDE RECORDS SUMMARY | 2018-02-04 13:25 | XMS REPORT | Encounter Summary ---
Author Author [facility] Organization [facility] Address Unknown Phone Unavailable Care Team Providers Care Senior Linux Unix Engineer Name Role Phone Verna Ferro MD PCP Florentin Martinez MD 3 Reason for Visit * Auth/Cert Status Reason Specialty Diagnoses / Referred By Referred To Procedures Contact Contact Diagnoses Lung nodule Lung nodule [R91.1] P rocedures NM BRONCHOSCOPY W/CPTR-ASST IMAGE-GUIDED NAVIGATION NM [facility] EBUS GUIDED SAMPL 3/> NODE STATION/STRUX BRONCHOSCOPY RIGID BRONCHOSCOPY WITH ULTRASOUND Encounter Details Date Type Department Care Team Description 12/01/2017 Anesthesia Gastrointenstinal Payton Galvez, PHIL Event Endoscopy [address] [facility] [address] [place] [address] [place] [address] [phone] Anesthesia Record Procedure Name Responsible Anesthesia Start Time Anesthesia Stop Time Anesthesiologist BRONCHOSCOPY RIGID (N/A ) Lani Farias MD 12/01/17 1415 1600 Date Time Event Comment 226 Proc Start 2018 1249 AN Equip Check 1413 In Room 1415 Anes Start 1415 An Start Data 1418 An Induction The patient was reevaluated immediately before moderate or deep sedation use and before anesthesia induction. 1418 An Intubation 1420 Anesthesia Ready 1554 An Extubation SV, oral suction/airway, Follows commands, ETT dcd, 100% O2 FM. SV, To PACU, VSS, Report to RN. 1555 an stop data 1557 Handoff to RN I completed my SBAR handoff to the receiving nurse. 1600 An Stop Meds Name Total fentaNYL PF (SUBLIMAZE) injection 150 mcg lidocaine (2%) 200 mg/10mL Injection 100 mg syringe propofol (DIPRIVAN) 200 mg/ 20 mL 200 mg injection (VIAL) succinylcholine (ANECTINE) injection 100 mg (VIAL) ondansetron (ZOFRAN) injection 4 mg dexamethasone (DECADRON) 4 mg/mL 4 mg injection phenylephrine (KALANI-SYNEPHRINE) 0.1 mg/mL 1,450 mcg injection (SYRINGE) dextran 70/hypromellose (GENTEAL TEARS; 2 drop BION TEARS) ophthalmic solution ePHEDrine injection 50 mg propofol (DIPRIVAN) infusion 231.4 mg vasopressin (VASOSTRICT) 20 units/mL IV 2 Units soln (VIAL) sodium chloride 0.9 % infusion 500 mL * Name O2 N2O Inspired N2O Sevoflurane Inspired Sevoflurane * No blood administrations on file. Type Details Placement Removal Puncture 11/23/17; 1453; Right; Jugular 11/23/17 1453 by Devin Nagy RN (Sheath) Peripheral 12/01/17; 1231; RN; R; Lower; Forearm; 12/01/17 1231 by Langat , 12/01/17 1647 by Sandoval, IV 20 G; 12/01/17; 1647 JOSE MANUEL Chen RN ETT 12/01/17; 1418; Ventilated by mask (1); 12/01/17 1418 by 12/01/17 1554 by Stylet, Direct laryngoscopy; Payton Galvez, CARRIER OPERATOR Payton Galvez, CARRIER OPERATOR Single-Lumen, Cuffed; 8.5mm; Mac; 4; Oral; 1-Full view of the glottis; 1 insertion attempt; Auscultation, ETCO2 Detector; 20 centimeters; atraumatic, dentition unchanged; 12/01/17; 1554 in this encounter Social History Tobacco Use Types Packs/Day Years [...] impairment: No 11/04/2017 as of this encounter OR Notes * Anesthesia Postprocedure Evaluation - Lani Farias MD - 12/01/2017 4:45 PM CDT Post-Anesthesia Evaluation Name: Ruslan Schmitt : 1940 Age: 77 y.o. Sex: male Procedure Date: 12/01/2017 Procedure: Procedure(s): BRONCHOSCOPY RIGID BRONCHOSCOPY WITH ULTRASOUND Surgeon: Surgeon(s): Eduardo Berg MD Post-Anesthesia Vitals BP: 128/57 (12/01 1618) Temp: 36.4 C (97.5 F) (12/01 1558) Pulse: 79 (12/01 1618) Respirations: 18 PER MINUTE (12/01 1618) SpO2: 96 % (12/01 1618) SpO2 Pulse: 79 (12/01 161) Post Anesthesia Evaluation Note Evaluation location: pre/post Patient participation: recovered; patient participated in evaluation Level of consciousness: alert Pain score: 2 Pain management: adequate Hydration: normovolemia Temperature: 36.0C - 38.4C Airway patency: adequate Perioperative Events Perioperative events: no Postoperative Status Cardiovascular status: hemodynamically stable Respiratory status: spontaneous ventilation Perioperative Events Perioperative Event: No Emergency Case Activation: No * Anesthesia Preprocedure Evaluation - Lani Farias MD - 12/01/2017 12 :45 PM CDT Formatting of this note may be different from the original. Anesthesia Pre-Procedure Evaluation Name: Ruslan Schmitt : 1940 Age: 77 y.o. Sex: male Procedure Date: 12/01/2017 Procedure: Procedure(s): BRONCHOSCOPY RIGID BRONCHOSCOPY WITH ULTRASOUND Physical Assessment Vital Signs (last filed in past 24 hours): BP: 135/70 (12/01 1225) Temp: 36.5 C (97.7 F) (12/01 1225) Pulse: 80 (12/01 1225) Respirations: 19 PER MINUTE (12/01 1225) SpO2: 97 % (12/01 1225) O2 Delivery: None (Room Air) (12/01 1225) Height: 177.8 cm (70") (12/01 1225) Weight: 80.7 kg (178 lb) (12/01 1225) Patient History Allergies Allergen Reactions Nitroglycerin HYPOTENSION Amoxicillin RASH Current Medications Medication Directions ALPRAZolam (XANAX) 0.5 mg tablet Take 0.5 mg by mouth three times daily as needed for Anxiety. amLODIPine (NORVASC) 10 mg tablet Take 1 tablet by mouth daily. aspirin EC 81 mg tablet Take 1 tablet by mouth daily. Take with food. atorvastatin (LIPITOR) 80 mg tablet Take 80 mg by mouth daily. carvedilol (COREG) 25 mg tablet Take 25 mg by mouth twice daily with meals. Take with food. cholecalciferol (VITAMIN D-3) 400 unit tab tablet Take 400 Units by mouth daily. folic acid/multivit-min/lutein (CENTRUM SILVER PO) Take 1 tablet by mouth daily. hydrALAZINE (APRESOLINE) 10 mg tablet Take 1 tablet by mouth twice daily. lactobacillus rhamnosus (GG) (CULTURELLE) 10 billion cell cap Take 1 capsule by mouth daily with breakfast. melatonin 3 mg tab Take 3 mg by mouth at bedtime daily. tamsulosin (FLOMAX) 0.4 mg capsule Take 0.4 mg by mouth daily. Do not crush, chew or open capsules. Take 30 minutes following the same meal each day. valsartan (DIOVAN) 80 mg tablet Take 1 tablet by mouth daily. Review of Systems/Medical History Patient summary reviewed Nursing notes reviewed Pertinent labs reviewed No history of anesthetic complications No family history of anesthetic complications Airway - negative Pulmonary Previous cigar smoker, now with likely malignancy Cardiovascular Exercise tolerance: >4 METS S/p CABG, patient with heart failure with preserved ejection fraction. Echocardiogram: Monophasic mitral diastolic flow consistent with atrial fibrillation. Normal global left ventricular contractility estimated LVEF 60-65%: Moderate concentric LV hypertrophy. Aortic arch not well visualized Right ventricle is not well visualized on apical images. On the parasternal images RV contractility is probably normal although RVs' and RV TAPSE are depressed. Moderate left atrial and moderate to severe right atrial dilatation. Mild mitral annular calcification with normal mitral valve leaflet motion. Aortic stenosis with very restricted mobility of the left coronary cusp. Mean aortic gradient 17.48 mmHg, peak aortic gradient 32.23 peak velocity 2.4 m/ s.mHg, aortic velocity ratio 0.33, and calculated aortic valve area 1.13 cm. Normal tricuspid and pulmonic valve motion. Trace pulmonic, mild mitral, and moderate to severe tricuspid regurgitation. Estimated PA pressure is elevated, 60 mmHg. No prior study available for comparison RHC : At the time of the patient's cardiac [...] index of 2.2 L/min per sq m. Atrial fibrillation, on chronic anticoagulation with ASA and coumadin. GI/Hepatic/Renal Renal disease (CKD III, chem 7 pending) Endocrine/Other Malignancy 09/13/17 - CT c/a/p (for renal failure, hematuria, prostatic dysfunction w/ hemoptysis) - RUL mass measuring 2.3 x 1.8 cm; background emphysematous changes , chronic lung disease w/ cardiomegaly; left hydroureteronephrosis has developed w/o an opaque stone; soft tissue like thickening of the left greater than right bladder wall at the level of the trigone, may be an obstructing neoplasm 09/21/17 - bladder, transurethral resection of tumor Path: Invasive papillary urothelial carcinoma, high grade type; muscularis propria invasion identified. 09/28/17 - PET scan - Hypermetabolic RUL mass and right hilar mass suggestive of RUL primary lung malignancy SUV 5 that corresponds to the lobulated 2.7 cm density. Intense hypermetabolic activity in the right hilum with SUV of 10.5 which corresoponds to some soft tissue density at the location measuring approximately 3.9 cm 10/06/17 - RUL lung EBUS-FNA BAL - negative for malignant cell; bronchial washings - negative for malignant cells; station 10R - nondiagnostic specimen; bronchial washings & lavage - negative for malignant cells 11/19/17- MRI brain, external imaging, negative for disease. Physical Exam Airway Findings Mallampati: I TM distance: >3 FB Neck ROM: full Mouth opening: good Airway patency: adequate Dental Findings: Upper dentures and lower dentures Cardiovascular Findings: Rhythm: regular Rate: normal Pulmonary Findings: Negative Abdominal Findings: Negative Neurological Findings: Negative Diagnostic Tests Hematology: Lab Results Component Value Date HGB 12.5 11/23/2017 HCT 37.1 11/23/2017 PLTCT 340 11/23/2017 WBC 8.4 11/23/2017 MCV 79.3 11/23/2017 MCH 26.7 11/23/2017 MCHC 33.6 11/23/2017 MPV 8.8 11/23/2017 RDW 18.3 11/23/2017 General Chemistry: Lab Results Component Value Date NA 134 11/23/2017 K 5.0 11/23/2017 CL 108 11/23/2017 CO2 19 11/23/2017 GAP 7 11/23/2017 BUN 47 11/23/2017 CR 2.16 11/23/2017 GLU 99 11/23/2017 CA 9.7 11/23/2017 MG 1.9 11/23/2017 Coagulation: No results found for: PT, PTT, INR Anesthesia Plan ASA score: 3 Plan: general Induction method: intravenous NPO status: acceptable Informed Consent Anesthetic plan and risks discussed with patient. Use of blood products discussed with patient; consented to blood products. in this encounter Plan of Treatment Not on fileas of this encounter Visit Diagnoses Not on filein this encounter Administered Medications Medication Order MAR Action Action Date Dose Rate Site dexamethasone (DECADRON) injection Given 12/01/2017 4 mg Intravenous, INTRA-PROCEDURE MED, 14:23 CDT Starting Wed12/01/17 at 1423, Until Wed12/01/17 at 1600, Nausea/Vomiting Injectable, Anesthesia Intra-op dextran 70/hypromellose (GENTEAL TEARS; Given 12/01/2017 2 drops BION TEARS) ophthalmic solution 14:18 CDT INTRA-PROCEDURE MED, Starting Wed12/01/17 at 1418, Until Wed12/01/17 at 1600, Dry Eyes, Anesthesia Intra-op ePHEDrine injection Given 12/01/2017 10 mg INTRA-PROCEDURE MED, Starting Wed 14:54 CDT 12/01/17 at 1443, Until Wed12/01/17 at 1600, Anesthesia Intra-op Given 12/01/2017 10 mg 15:09 CDT Given 12/01/2017 10 mg 15:12 CDT fentaNYL citrate PF (SUBLIMAZE) Given 12/01/2017 100 mcg injection 14:18 CDT INTRA-PROCEDURE MED, Starting Wed12/01/17 at 1418, Until Wed12/01/17 at 1600, Pain Injectable, Anesthesia Intra-op Given 12/01/2017 50 mcg 15:03 CDT lidocaine (PF) injection Given 12/01/2017 100 mg INTRA-PROCEDURE MED, Starting Wed 14:18 CDT 12/01/17 at 1418, Until Wed12/01/17 at 1600, Anesthesia Intra-op ondansetron (ZOFRAN) injection Given 12/01/2017 4 mg Intravenous, INTRA-PROCEDURE MED, 15:38 CDT Starting Wed12/01/17 at 1538, Until Wed12/01/17 at 1600, Nausea/Vomiting Injectable, Anesthesia Intra-op phenylephrine in NS injection syringe Given 12/01/2017 200 mcg Intravenous, INTRA-PROCEDURE MED, 14:58 CDT Starting Wed12/01/17 at 1433, Until Wed12/01/17 at 1600, Symptomatic Hypotension, Anesthesia Intra-op Given 12/01/2017 100 mcg 15:12 CDT Given 12/01/2017 200 mcg 15:18 CDT propofol (DIPRIVAN) infusion Given - New 12/01/2017 50 24.2 mL/hr 20 mL, INTRA-PROCEDURE MED(CONT), Bag 15:02 CDT mcg/kg/min Starting Wed12/01/17 at 1502, Until Wed12/01/17 at 1600, Anesthesia Intra-op Bolus 12/01/2017 40,000 mcg 15:33 CDT Given - New Bag 12/01/2017 15:34 CDT propofol (DIPRIVAN) injection Given 12/01/2017 150 mg INTRA-PROCEDURE MED, Starting Wed 14:18 CDT 12/01/17 at 1418, Until Wed12/01/17 at 1600, Anesthesia Intra-op Given 12/01/2017 50 mg 14:31 CDT sodium chloride 0.9 % infusion Given - New 12/01/2017 1,000 mL, Intravenous, CONTINUOUS, Bag 14:15 CDT Starting Wed12/01/17 at 1400, Until Wed12/01/17 at 1849, Pre-Op succinylcholine (ANECTINE) injection Given 12/01/2017 100 mg Intravenous, INTRA-PROCEDURE MED, 14:18 CDT Starting Wed12/01/17 at 1418, Until Wed12/01/17 at 1600, Anesthesia Intra-op vasopressin (VASOSTRICT) injection Given 12/01/2017 1 Units INTRA-PROCEDURE MED, Starting Wed 15:22 CDT 12/01/17 at 1522, Until Wed12/01/17 at 1600, Anesthesia Intra-op Given 12/01/2017 1 Units 15:35 CDT in this encounter
--- OUTSIDE RECORDS SUMMARY | 2018-02-04 13:25 | XMS REPORT | Encounter Summary ---
Author Author [facility] Organization [facility] Address Unknown Phone Unavailable Care Team Providers Care Resident Care Spec Name Role Phone Verna Ferro MD PCP Florentin Martinez MD 3 Reason for Referral * Status Reason Specialty Diagnoses / Referred By Referred To Procedures Contact Contact New Request Diagnoses Akhil Gonzalez, (HFpEF) heart MD failure with [address] ejection [place] [address] fraction (HCC) [place], [place] Chronic [address] diastolic heart Phone: failure, NYHA [phone] class 3 (HCC) Fax: Pulmonary [phone] hypertension (HCC) Mitral valve insufficiency, unspecified etiology P rocedures REQUEST FOR CARDIOLOGY APPOINTMENT Reason for Visit * Reason Comments Post-hospital Follow Up 11/23/17 [facility] s/p RHC New To Provider Hospital Only Encounter Details Date Type Department Care Team Description 12/21/2017 Office Visit [facility] Cardiology Akhil Gonzalez MD Post-hospital Follow Up [facility] Med [place] [address] (11/23/17 [facility] s/p RHC ); [address] [place] [address] New To Provider ([address] [address] Only ) [place] [address] [phone] Social History Tobacco Use Types Packs/Day Years Used Date Current Some Day Smoker Cigars Smokeless Tobacco: Never Used Alcohol Use Drinks/Week oz/Week Comments No Sex Assigned at Date Recorded Not on file as of this encounter Last Filed Vital Signs Vital Sign Reading Time Taken Blood Pressure 140/68 12/21/2017 11:25 AM CDT Pulse 72 12/21/2017 11:25 AM CDT Temperature - - Respiratory Rate - - Oxygen Saturation - - Inhaled Oxygen - - Concentration Weight 83.7 kg (184 lb 9.6 oz) 12/21/2017 11:25 AM CDT Height 177.8 cm (5' 10") 12/21/2017 11:25 AM CDT Body Mass Index 26.49 12/21/2017 11:25 AM CDT in this encounter Functional Status Functional Status Response Date of Assessment Does the patient have a hearing impairment: Yes 12/21/2017 Does the patient have a visual impairment: Yes 12/21/2017 Does the patient have impaired ambulation: No 12/21/2017 Does the patient have an activity of daily living No 12/21/2017 (ADL) impairment: Does the patient have an instrumental activity of No 12/21/2017 daily living (IADL) impairment: Cognitive Status Response Date of Assessment Does the patient have a cognitive impairment: No 12/21/2017 as of this encounter Instructions * Patient Instructions - Akhil Gonzalez MD - 12/21/2017 11:30 AM CDT We need to know what dose of diuretic you are taking (lasix or something else). I think I would like to double the dose to get you back to your target weight of 175 lbs. Call us with this information and we will adjust over the phone. No other changes to medications at this time. See me again in 3-6 months and call with questions. in this encounter Progress Notes * Akhil Gonzalez MD - 12/21/2017 11:30 AM CDT Formatting of this note may be different from the original. Date of Service: 12/21/2017 Ruslan Schmitt is a 77 y.o. male. HPI 77-year-old male, with past medical history notable for ongoing coronary artery disease, status post CABG in 1990, without need for further PCI, stents, or bypass grafting since then, peripheral vascular disease with carotid endarterectomy bilaterally, hypertension, hyperlipidemia, aortic stenosis of unclear degree, permanent atrial fibrillation on systemic anticoagulation with Coumadin, and heart failure with preserved ejection fraction. Recent echocardiogram, reviewed with Dr. Alicia, was concerning for compensated HF w/ elevated PAP of 60mmHg. Because of this the patient is not a low risk candidate for lung resection. He was scheduled for RHC to further evaluate for pulmonary hypertension. He underwent procedure and I discussed RHC results with Dr. Alicia and then with family. Plan will be to present the patient's case at tumor board for further discussion about optimization for surgery. The patient does have some increased risk for decompensation and heart failure progression. Vitals: 12/21/17 1125 BP: 140/68 Pulse: 72 Weight: 83.7 kg (184 lb 9.6 oz) Height: 1.778 m (5' 10") Body mass index is 26.49 kg/m. Past Medical History Patient Active Problem List Diagnosis Date Noted Chronic diastolic heart failure, NYHA class 3 (HCC) 12/21/2017 Lung nodule 11/29/2017 Added automatically from request for surgery [id number] Mass of upper lobe of right lung 11/17/2017 Added automatically from request for surgery [id number] (HFpEF) heart failure with preserved ejection fraction (HCC) 11/07/2017 Malignant neoplasm of overlapping sites of bladder (HCC) 10/28/2017 Gross hematuria late 04/2017: negative hematuria workup [...] is negative 10/28/17: Initial appointment with Dr. 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 HENT: Negative. Eyes: Negative. Cardiovascular: Negative. Respiratory: Negative. Endocrine: Negative. Hematologic/Lymphatic: Negative. Skin: Negative. Musculoskeletal: Negative. Gastrointestinal: Negative. Genitourinary: Negative. Neurological: Negative. Psychiatric/Behavioral: Negative. Allergic/Immunologic: Negative. Physical Exam General Appearance: in no distress Skin: warm Digits: no cyanosis Eyes: sclera anicteric Lips & Oral Mucosa: no cyanosis Neck Veins: He has some extra volume on board as evidenced by his jugular venous pulse being approximately 10 cm sitting upright. Respiratory Effort: no respiratory distress Auscultation/Percussion: no rales or rhonchi, no wheezing PMI: displaced laterally Cardiac Rhythm: Cardiac Auscultation: S1, S2 soft Murmurs: Radial Arteries: soft symmetric radial pulses Pedal Pulses: diminished symmetric pedal pulses Lower Extremity Edema: trace Abdominal Exam: soft, non-tender Liver: Neuromuscular: normal muscle tone Orientation: oriented to time, place and person Affect & Mood: appropriate Language and Memory: patient responsive and seems to comprehend information Neurologic Exam: neurological assessment grossly intact Cardiovascular Studies Problems Addressed Today Encounter Diagnoses Name Primary? (HFpEF) heart failure with preserved ejection fraction (HCC) Yes Chronic diastolic heart failure, NYHA class 3 (HCC) Pulmonary hypertension (HCC) Mitral valve insufficiency, unspecified etiology Assessment and Plan I think he needs to double his diuretic dose but he is not sure what he is taking and is not listed on his medication list. He previously was on Lasix but thinks he was switched to a different diuretic. We will have him check in with his family and with the correct diuretic dose he will call us we will probably double it with a target weight of approximately 175 pounds. He may need to be considered for PA pressure remote monitoring and we will need to watch his fluids carefully as he undergoes therapy and radiation. There is no plan for lung tumor resection at this time plan is for immunotherapy chemotherapy and radiation after discussion of risks benefits alternatives with the patient. Total time 25 minutes. Estimated counseling time 15 minutes including risks/ benefits/alternatives discussion related to plan as outlined and answering all questions related to the care plan while educating on the importance of adherence to recommended therapies, outpatient follow-up, and also addressing prognosis specific to the patient/family concerns. Thank you for allowing us to participate in the shared care of your patient. Akhil Gonzalez MD [facility] Failure [facility] Transplant Infant Nanny box sealing machine feeder Director Division of Advanced Heart Failure & Cardiac Transplantation [facility] Primary Transplant Physician Credit Collections Manager, [facility] [email or web address] Current Medications (including today's revisions) ALPRAZolam (XANAX) 0.5 mg tablet Take 0.5 mg by mouth twice daily as needed for Anxiety. amLODIPine (NORVASC) [...] tablet Take 400 Units by mouth daily. fenofibrate nanocrystallized (TRICOR) 145 mg tablet Take 145 mg by mouth daily. Take with food. folic acid/multivit-min/lutein (CENTRUM SILVER PO) Take 1 tablet by mouth daily. hydrALAZINE (APRESOLINE) 10 mg tablet Take 1 tablet by mouth twice daily. lactobacillus rhamnosus (GG) (CULTURELLE) 10 billion cell cap Take 1 capsule by mouth daily with breakfast. melatonin 3 mg tab Take 9 mg by mouth at bedtime daily. tamsulosin (FLOMAX) 0.4 mg capsule Take 0.4 mg by mouth daily. Do not crush , chew or open capsules. Take 30 minutes following the same meal each day. valsartan (DIOVAN) 80 mg tablet Take 1 tablet by mouth daily. in this encounter Plan of Treatment Not on fileas of this encounter Visit Diagnoses Diagnosis (HFpEF) heart failure with preserved ejection fraction (HCC) - Primary Chronic diastolic heart failure, NYHA class 3 (HCC) Chronic diastolic heart failure Pulmonary hypertension (HCC) Other chronic pulmonary heart diseases Mitral valve insufficiency, unspecified etiology
--- OUTSIDE RECORDS SUMMARY | 2018-02-04 13:25 | XMS REPORT | Encounter Summary ---
Author Author [facility] Organization [facility] Address Unknown Phone Unavailable Care Team Providers Care Food Service Tray Attendant Name Role Phone Verna Ferro MD PCP Florentin Martinez MD 3 Reason for Visit * Reason Comments Navigation Assessment Encounter Details Date Type Department Care Team Description 12/10/[address] [facility] Abdon Hilton MD Navigation Assessment Cancer [place] [facility] Exam [address] [facility] [address] [place] [address] [place] [address] [phone] Social History Tobacco Use Types Packs/Day Years [...] impairment: No 11/04/2017 as of this encounter Miscellaneous Notes * Telephone Encounter - Bettye Lambert RN - 12/10/2017 8:33 AM CDT Navigation Intake Assessment Document Patient Name: Ruslan Schmitt : 1940 Insurance: Medicare Appointment Info: 12/21/[address] Hilton Diagnosis & Reason for Visit: New squamous cell lung cancer, discuss treatment options Physician Info: Referring Physician: Dr. Abdullahi Alicia Contact Name & Number: [phone] Surgeon: Dr. Ayaan Brooke, urology Medical Oncologist: Dr. Wilber Lawson in [place]. PCP: Dr. Verna Ferro Other: Dr. Baldo Stoll, wire drawing setter in [place]. Dr. Aaron Murcia , urology. Location of Films: IN HOUSE and PACS Location of Pathology: [facility] and IN HOUSE History of Present Illness: 77 y/o male diagnosed with bladder cancer November 2008. He underwent TURP Jan 2009. TURP path showed glandular and stromal hyperplasia; fragments of chronically inflamed urothelium. Patient lost to follow up. Mr. Schmitt seen by Dr. Brooke Apr 2017 for gross hematuria. Further workup eventually revealed concerns in bladder and lungs. Patient underwent TURBT and RUL FNA in 09/2017. Path revealed invasive papillary urothelial carcinoma, but lung was non-diagnostic. He was referred to urology and thoracic surgery for further workup and/or treatment. Patient also has extensive cardiac history. 04/19/2017 Cystoscopy no evidence of disease. 04/22/2017 CT SCAN ABD/PELVIS - Impression: The prostate is enlarged. No urinary tract stones or hydronephrosis. Lobulated contour of the liver is suggestive of underlying chronic liver disease or cirrhosis. 09/13/2017 CT SCAN CHEST/ABD/PEVLIS - Impression: RUL mass, neoplasm not excluded. PET CT suggested. There are background emphysematous changes and chronic lung disease with cardiomegaly. No convincing adenopathy. Left hydroureteronephrosis has developed without an opague stone. Soft tissue like thickening of the left greater than right bladder wall at the level of the trigone may be an obstructing neoplasm. Additional findings see report. 09/21/2017 TURBT Pathology: Invasive papillary urothelial carcinoma, high grade type; muscularis propria invasion identified. (Path slides read at see O2.) 09/28/2017 PET SCAN - Impression: Hypermetabolic RUL mass and right hilar mass suggestive of RUL primary lung malignancy with right hilar metastasis. No other suspicious regions of hypermetabolism are identified. 10/06/2017 RUL lung FNA biopsy - negative for malignant cell; bronchial washings - negative for malignant cells; station 10R - nondiagnostic specimen; bronchial washings &lavage - negative for malignant cells. 10/28/17- consults with Dr. Murcia and Dr. Carmona 11/04/17- consult with Dr. Martinez in cardiology 11/23/17- right heart catheterization at . 12/01/17- EBUS FNA of LN and TBB of RUL mass (at ). Path of LN 11R showed poorly differentiated carcinoma with extensive necrosis, favor squamous carcinoma. RUL mass biopsy had scant fragment of carcinoma. Insufficient material for further testing. Prior Treatment (XRT, Surgery, Chemotherapy): Urological surgery as described above. N/A for lung cancer. Comments: Patient is traveling from out of town, coming from the [facility], [place], operated by [facility]. He would like to condense appts to the same day when possible. He also has consult with Dr. Barber in rad onc after seeing Dr. Hilton, as well as follow up with cardiology. Patient and deny any needs at this time. They were given appt info including addresses of [facility] and rad onc. Appt guide also sent. NEEDS Assessment: Genetic Counseling: Not Applicable Nutrition: No needs identified Social Work/Financial: No need identified Spiritual & Emotional: Emotional support provided Physical: No needs identified Communication: No needs identified Oncofertility - Females age 40 and under; Males age 50 and under : Not applicable in this encounter Plan of Treatment Not on fileas of this encounter Visit Diagnoses Not on filein this encounter
--- OUTSIDE RECORDS SUMMARY | 2018-02-04 13:25 | XMS REPORT | Encounter Summary ---
Author Author [facility] Organization [facility] Address Unknown Phone Unavailable Care Team Providers Care Aerial Applicator Pilot Name Role Phone Verna Ferro MD PCP Florentin Martinez MD 3 Reason for Visit * Reason Comments Rad Therapy Follow-up * Consult, Test & Treat Status Reason Specialty Diagnoses / Referred By Referred To Procedures Contact Contact Closed Specialty Radiation Therapy Diagnoses Kacie Alicia [facility] Squamous cell MD Abdullahi Therapy Required carcinoma of [address] and lung, [facility] Rad unspecified [place] [address] Onc laterality (HCC) [place], [place] [address] [address] [place], [place] Phone: [phone] Phone: Encounter Details Date Type Department Care Team Description 12/21/2017 Office Visit Cancer Center - Radiation Mason Barber MD Squamous cell carcinoma Therapy [address] of lung, unspecified [place] and [place] [facility] [place] [address] laterality (HCC) [place] [address] [address] [phone] [place] [address] [phone] Social History Tobacco Use Types Packs/Day Years [...] F) 12/21/2017 12:55 PM CDT Respiratory Rate - - Oxygen Saturation 98% 12/21/2017 12:55 PM CDT Inhaled Oxygen - - Concentration Weight 84 kg (185 lb 3.2 oz) 12/21/2017 12:55 PM CDT Height 177.8 cm (5' 10") 12/21/2017 12:55 PM CDT Body Mass Index 26.57 12/21/2017 12:55 PM CDT in this encounter Functional Status Functional [...] impairment: No 12/21/2017 as of this encounter Progress Notes * Mason Barber MD - 12/21/2017 1:00 PM CDT Formatting of this note may be different from the original. Radiation Oncology Consultation Date: 12/21/2017 Ruslan Schmitt is a 77 y.o. male. Requesting Provider: Abdullahi Alicia,* There were no encounter diagnoses. 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 male newly diagnosed locally advanced squamous cell carcinoma of the lung, as well as muscle-invasive urothelial carcinoma of the bladder s/p TURBT. [...] catheterization to evaluate his pulmonary hypertension. His oral hygienist has told him that any major surgery for his cancer diagnoses would be high risk from a cardiac standpoint. On 12/01/17 he underwent repeat EBUS / FNA with pathology consistent with poorly differentiated SCC at station 11R. RUL lung biopsy on 12/01/17 showed fragments of very atypical cells. His case was discussed at thoracic tumor conference, and the recommendation was to proceed with nonsurgical management of what is thought to be primary lung SCC. He met with Dr Hilton, who recommended concurrent chemoradiation with weekly chemotherapy for his lung SCC. He presents today to discuss the role of radiotherapy for his cancer diagnoses. The patient denies current hematuria or hemoptysis. He gets mildly SOB on exertion. He has overall fatigue, though appetite and weight have remained stable. He intends to return to his local oncologist Dr. Ballard to proceed with any systemic and radiation treatments near home. 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) Hypertension CAD (coronary artery disease) Aortic stenosis Arthritis Atrial fibrillation (HCC) GERD (gastroesophageal reflux disease) Hyperlipidemia Mitral valve regurgitation Pulmonary hypertension (HCC) Past Medical History: Diagnosis Date Aortic stenosis Arthritis Atrial fibrillation (HCC) CAD (coronary artery disease) GERD (gastroesophageal reflux disease) Hyperlipidemia Hypertension Lung mass Mitral valve regurgitation Pulmonary hypertension (HCC) Past Surgical History: Procedure Laterality Date DENTAL SURGERY 1982 HAND SURGERY 1987 CAROTID ENDARDECTOMY 1990 CORONARY ARTERY BYPASS GRAFT 1992 HEART CATHETERIZATION 1992 APPENDECTOMY 01/2014 BRONCHOSCOPY N/A 12/01/2017 BRONCHOSCOPY RIGID performed by Eduardo Berg MD at ENDO[facility]GI BRONCHOSCOPY N/A 12/01/2017 BRONCHOSCOPY WITH ULTRASOUND performed by Eduardo Berg MD at ENDO/GI Prior Radiation History: none Medications ALPRAZolam (XANAX) 0.5 mg tablet Take 0.5 [...] tablet Take 1 tablet by mouth daily. Allergies: Allergies Allergen Reactions Nitroglycerin HYPOTENSION Amoxicillin RASH Social History: Social History Social History Marital status: Spouse name: N/A Number of children: N/A Years of education: N/A Social History Main Topics Smoking status: Current Some Day Smoker Types: Cigars Smokeless tobacco: Never Used Alcohol use No Drug use: No Sexual activity: Not Currently Partners: Female Other Topics Concern Not on file Social History Narrative No narrative on file Family History: Family History Problem Relation Age of Onset Cancer Mother Heart Disease Father Cancer Sister Review of Systems All other systems reviewed and are negative. Patient Evaluated for a Clinical Trial: No treatment clinical trial available for this patient. KARNOFSKY PERFORMANCE SCORE: 80% Normal activity with effort; some symptoms of disease Physical Exam General: AAOx3, in no acute distress. Head: Normocephalic and atraumatic. Eyes: Normal sclerae / conjunctivae. EOMI. Neck: Supple, trachea midline, no palpable lymphadenopathy Lungs: Breathing nonlabored, no wheezing Abdomen: soft, nondistended, nontender Extremities: warm, no edema Neurologic: CN II-XII grossly intact, no focal motor deficits. Psychiatric: Normal mood and affect LABORATORY: Comprehensive Metabolic Profile Lab Results Component Value Date/Time NA 138 12/01/2017 01:13 PM K 4.5 12/01/2017 01:13 PM CL 110 12/01/2017 01:13 PM CO2 20 (L) 12/01/2017 01:13 PM GAP 8 12/01/2017 01:13 PM BUN 40 (H) 12/01/2017 01:13 PM CR 2.03 (H) 12/01/2017 01:13 PM GLU 97 12/01/2017 01:13 PM Lab Results Component Value Date/Time CA 10.6 12/01/2017 01:13 PM GFR 32 (L) 12/01/2017 01:13 PM GFRAA 39 (L) 12/01/2017 01:13 PM CBC w/Diff Lab Results Component Value Date/Time WBC 8.4 11/23/2017 11:28 AM RBC 4.67 11/23/2017 11:28 AM HGB 12.5 (L) 11/23/2017 11:28 AM HCT 37.1 (L) 11/23/2017 11:28 AM MCV 79.3 (L) 11/23/2017 11:28 AM MCH 26.7 11/23/2017 11:28 AM MCHC 33.6 11/23/2017 11:28 AM RDW 18.3 (H) 11/23/2017 11:28 AM PLTCT 340 11/23/2017 11:28 AM MPV 8.8 11/23/2017 11:28 AM No results found for: NEUT, ANC, LYMA, ALC, MAYDA, AMC, EOSA, AEC, BASA, ABC IMAGIN09/28/17 PET/CT: right hilar mass SUV 10.5, RUL mass SUV 5. No other hypermetabolic sites. 11/08/17 MRI brain: no intracranial metastasis 12/01/17 CT chest: 3x2.4x2cm RUL mass, 3.3x2.8cm right suprahilar mass PATHOLOGY: 09/21/17 TURBT: ([facility] read) Final Diagnosis: A. Outside case "[id number]" (Date collected: 09/21/17): 1. Urothelium, "bladder tumor", transurethral resection: Invasive high grade urothelial carcinoma with muscularis propria invasion. See checklist. 2. Urothelium, "Bladder base tumor", transurethral resection: Invasive high grade urothelial carcinoma with muscularis propria invasion. Comment: URINARY BLADDER: Biopsy and Transurethral Resection of Bladder Tumor (TURBT) CAP Version: 4.0.1.0 Procedure (required only for TURBT) TURBT Tumor Site Not specified Histologic Type Invasive urothelial carcinoma Associated Epithelial Lesions (select all that apply) None identified Histologic Grade (select all that apply) Urothelial carcinoma High-grade Tumor Configuration Solid Infiltrative Adequacy of Material for Determining Muscularis Propria Invasion Muscularis propria (detrusor muscle) present Lymph-Vascular Invasion Not identified Tumor Extension Tumor invades muscularis propria Additional Pathologic Findings (select all that apply) Cautery artifact Pathologic Staging (pTNM) Primary Tumor (pT2) pT2: Tumor invades muscularis propria The pathologic stage assigned here should be regarded as provisional, as it reflects only current pathologic data and does not incorporate full knowledge of the patient's clinical status and/or prior pathology. Attestation: By this signature, I attest that I have personally formulated the final interpretation expressed in this report and that the above diagnosis is based upon my examination of the slides and/or other material indicated in this report. 12/01/17 EBUS / FNA: Final Diagnosis: A. Lymph Node, station 7, EBUS guided FNA: Polymorphous population of lymphocytes. No carcinoma identified in the sampled specimen. B. Lymph Node, station 11R, EBUS guided FNA: Poorly differentiated carcinoma with extensive necrosis, favor squamous carcinoma. See comment. C. Lung, right upper lobe, EBUS guided FNA: Scant fragment of carcinoma. See comment. Please also see concurrent surgical pathology report ([id number]). Comment: Immunostains performed on the cell block [...] tissue, precluding further testing. Pursuant to the Cardiothoracic Icu Rn Program at the [facility] Pathology Department, selected slides from this case have been concurrently reviewed by the following pathologist: Dr. Cleveland who agrees with the final diagnosis. 12/01/17 RUL biopsy: Final Diagnosis: A. Respiratory and focal squamous epithelium, "right upper lobe mass biopsy": Minute fragment of markedly atypical cells, cannot exclude carcinoma. Please correlate with the concurrent cytology specimen ([id number]). See comment. Comment: Immunostains performed on block A1 demonstrate that the very scant atypical cells show focal positivity for P40 and are negative for GATA3, TTF-1 and synaptophysin while stains for CD56, CK 5/6, Ki-67 and CK7 are noncontributory, owing to exhaustion of the atypical focus on the sections stained. ASSESSMENT: 77 y.o. male with multiple medical comorbidities including CAD s/p CABG, HFpEF, AFib, aortic stenosis, mitral regurgitation with the following oncologic diagnoses: 1. 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 He is a poor surgical candidate from a cardiology standpoint. We recommend concurrent chemoradiation therapy to 60 Gy in 30 fractions to the right lung and hilum. We reviewed the rationale and logistics of treatment planning and delivery. We reviewed side effects of definitive lung radiotherapy including fatigue, cough, esophagitis, risk of pneumonitis, pulmonary fibrosis, damage to the esophagus, heart, major blood vessels, or spinal cord. The patient stated his preference to be treated closer to home in [place], and will discuss this with his local oncologist. We discussed standard of care for node-negative muscle-invasive bladder cancer, including neoadjuvant chemotherapy followed by surgery versus bladder- preserving chemoradiation. Because he is a poor surgical candidate we recommend concurrent chemoradiation therapy to the pelvis and bladder. We believe that these concurrent chemoradiation courses to the thorax and pelvis can be done simultaneously as long as the patient is tolerating treatments. He is encouraged to contact our office with any further questions or concerns that arise. René Foster M.D. Radiation Oncology Resident, PGY-3 [facility] Pager [phone] CC: A copy of this note has been sent to the referring provider, Abdullahi Cisse,*. ATTESTATION I personally performed the goldberg portions of the E/M visit, discussed case with resident and concur with resident documentation of history, physical exam, assessment, and treatment plan unless otherwise noted. Staff name: Mason Barber MD Date: 12/23/2017 in this encounter Plan of Treatment Not on fileas of this encounter Visit Diagnoses Diagnosis Squamous cell carcinoma of lung, unspecified laterality (HCC)
--- OUTSIDE RECORDS SUMMARY | 2018-02-04 13:25 | XMS REPORT | Encounter Summary ---
Author Author [facility] Organization [facility] Address Unknown Phone Unavailable Care Team Providers Care Reliability Technician Name Role Phone Verna Ferro MD PCP Florentin Martinez MD 3 Reason for Visit * Reason Comments Heme/Onc Care New Patient * Consult, Test & Treat Status Reason Specialty Diagnoses / Referred By Referred To Procedures Contact Contact No Auth Needed Specialty Oncology Diagnoses Kacie Alicia - Deepika Cl Services Squamous cell MD Abdullahi Exm/Proc Rm Required carcinoma of [address] [facility] lung, [facility] unspecified [place] [address] laterality (HCC) [place], [place] [address] [address] [place], [place] Phone: Encounter Details Date Type Department Care Team Description 12/21/2017 Office Visit [facility] Abdullahi Alicia , Squamous cell carcinoma [facility] Exam MD of right lung (HCC) [facility] [address] (Primary Dx) [address] [place] [address] [place] [address] [phone] Abdon Romero MD [address] [place], [place] [id number] Social History Tobacco Use Types Packs/Day Years Used Date Current Some Day Smoker Cigars Smokeless Tobacco: Never Used Alcohol Use Drinks/Week oz/Week Comments No Sex Assigned at Date Recorded Not on file as of this encounter Last Filed Vital Signs Vital Sign Reading Time Taken Blood Pressure 128/58 12/21/2017 9:33 AM CDT Pulse 63 12/21/2017 9:33 AM CDT Temperature 36.4 C (97.6 F) 12/21/2017 9:33 AM CDT Respiratory Rate 17 12/21/2017 9:33 AM CDT Oxygen Saturation 97% 12/21/2017 9:33 AM CDT Inhaled Oxygen - - Concentration Weight 84.6 kg (186 lb 6.4 oz) 12/21/2017 9:33 AM CDT Height 177.8 cm (5' 10") 12/21/2017 9:33 AM CDT Body Mass Index 26.75 12/21/2017 9:33 AM CDT in this encounter Functional Status [...] as of this encounter Progress Notes * Abdon Hilton MD - 12/21/2017 9:40 AM CDT Formatting of this note may be different from the original. Name: Ruslan Schmitt : 1940 AGE: 77 y.o. DATE OF SERVICE: 12/21/2017 Subjective: Reason for Visit: Heme/Onc Care and New Patient Ruslan Schmitt is a 77 y.o. male. 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 male [...] Also noted was a RUL mass. On he underwent cystoscopy and TURBT, with pathology [...] catheterization to evaluate his pulmonary hypertension. His clinical data manager has told him that any major surgery for his cancer diagnoses would be high risk from a cardiac standpoint. On 12/01/17 he underwent repeat EBUS / FNA with pathology consistent with poorly differentiated SCC at station 11R. RUL lung biopsy on 12/01/17 showed fragments of very atypical cells. Lung- Poorly differentiated Squamous cell carcinoma. PDL1 30% He is here for second opinion consult for above stated squamous cell carcinoma of lung. Review of Systems Constitutional: Positive for activity change. Negative for unexpected weight change. HENT: Negative. Eyes: Negative. Respiratory: Negative. Negative for cough and chest tightness. Cardiovascular: Negative. Gastrointestinal: Negative. Genitourinary: Negative. Musculoskeletal: Negative. Skin: Negative. Neurological: Negative. Negative for headaches. Hematological: Negative. Negative for adenopathy. Does not bruise/bleed easily. Psychiatric/Behavioral: Negative. All other systems reviewed and are negative. Objective: ALPRAZolam (XANAX) 0.5 mg tablet Take 0.5 [...] tablet Take 1 tablet by mouth daily. Vitals: 12/21/17 0933 BP: 128/58 Pulse: 63 Resp: 17 Temp: 36.4 C (97.6 F) TempSrc: Oral SpO2: 97% Weight: 84.6 kg (186 lb 6.4 oz) Height: 177.8 cm (70") Body mass index is 26.75 kg/m. Pain Score: Zero Pain Addressed: N/A Patient Evaluated for a Clinical Trial: No treatment clinical trial available for this patient. Eastern Cooperative Oncology Group performance status is 1, Restricted in physically strenuous activity but ambulatory and able to carry out work of a light or sedentary nature, e.g., light house work, office work. Physical Exam Constitutional: He is oriented to person, place, and time. Vital signs are normal. He appears well-developed and well-nourished. He is active. HENT: Head: Normocephalic and atraumatic. Right Ear: External ear normal. Left Ear: External ear normal. Nose: Nose normal. Mouth/Throat: Uvula is midline and oropharynx is clear and moist. Eyes: Conjunctivae and EOM are normal. Pupils are equal, round, and reactive to light. Right eye exhibits no discharge. Left eye exhibits no discharge. Neck: Trachea normal, normal range of motion and full passive range of motion without pain. Neck supple. No JVD present. Cardiovascular: Normal rate, regular rhythm, S1 normal, S2 normal, normal heart sounds, intact distal pulses and normal pulses. Exam reveals no gallop and no friction rub. No murmur heard. Pulmonary/Chest: Effort normal and breath sounds normal. He has no decreased breath sounds. He has no wheezes. He has no rhonchi. He has no rales. He exhibits no tenderness. Abdominal: Soft. Normal appearance and bowel sounds are normal. There is no hepatosplenomegaly. There is no tenderness. Musculoskeletal: Normal range of motion. He exhibits no edema or deformity. Lymphadenopathy: He has no cervical adenopathy. He has no axillary adenopathy. Neurological: He is alert and oriented to person, place, and time. No cranial nerve deficit. Skin: Skin is warm and intact. No rash noted. No cyanosis. Psychiatric: He has a normal mood and affect. His speech is normal and behavior is normal. Judgment and thought content normal. Cognition and memory are normal. Vitals reviewed. Assessment and Plan: Problem Squamous Cell Carcinoma of Right Lung (Hcc) Ruslan Schmitt is a 77 y.o. male [...] Also noted was a RUL mass. On he underwent cystoscopy and TURBT, with pathology [...] catheterization to evaluate his pulmonary hypertension. His clinical data manager has told him that any major surgery for his cancer diagnoses would be high risk from a cardiac standpoint. On 12/01/17 he underwent repeat EBUS / FNA with pathology consistent with poorly differentiated SCC at station 11R. RUL lung biopsy on 12/01/17 showed fragments of very atypical cells. Lung- Poorly differentiated Squamous cell carcinoma. PDL1 30% Squamous cell carcinoma of right lung (HCC) He is here for medical oncology consultation [...] with Dr. Wilber Lawson MD oncologist in [facility]. He will follow up with Dr. Lawson. 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 Wilber Lawson MD oncologist in [facility]. He will follow up with Dr. Lawson. 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
--- OUTSIDE RECORDS SUMMARY | 2018-02-04 13:25 | XMS REPORT | Encounter Summary ---
Author Author [facility] Organization [facility] Address Unknown Phone Unavailable Care Team Providers Care Plug Drill Operator Name Role Phone Verna Ferro MD PCP Florentin Martinez MD 3 Reason for Visit * Reason Comments Other EBUS results Encounter Details Date Type Department Care Team Description 12/09/2017 Telephone [facility] Afia Miller APRN-NP Other ( EBUS results) [facility] [address] [facility] [id number] [place] [address] [address] [facility] [phone] [place] [address] [phone] Social History Tobacco Use Types Packs/Day Years [...] encounter Miscellaneous Notes * Telephone Encounter - Afia Miller APRN-NP - 12/09/2017 2:16 PM CDT Discussed EBUS results, 11R positive for carcinoma, consistent with squamous cell carcinoma. Relayed tumor conference discussion recommending med onc and rad onc referrals as patient is not surgical candidate to to cardiac issues. Patient would like oncology opinions at our facility, ordered. We will also communicate with Dr. Chow to discuss care planning in regards to known invasive bladder cancer. in this encounter Plan of Treatment Not on fileas of this encounter Visit Diagnoses Not on filein this encounter
--- OUTSIDE RECORDS SUMMARY | 2018-02-04 13:25 | XMS REPORT | Encounter Summary ---
Author Author [facility] Organization [facility] Address Unknown Phone Unavailable Care Team Providers Care Sergeant At Arms Name Role Phone Verna Ferro MD PCP Florentin Martinez MD 3 Reason for Visit * Reason Comments Medication Follow-up Diuretics Encounter Details Date Type Department Care Team Description 12/23/2017 Telephone [facility] Marylou Wilhelm, development technician Follow-up [facility] (Diuretics) [address] [place] [address] Social History Tobacco Use Types Packs/Day Years [...] impairment: No 12/21/2017 as of this encounter Miscellaneous Notes * Telephone Encounter - Shamir Richmond LPN - 01/25/2018 8:49 AM CDT pts called, pt had labs drawn yesterday and requested they be sent to HF clinic. Will wait for results to arrive. * Telephone Encounter - Marylou Wilhelm, JOSE MANUEL - 01/14/2018 2:16 PM CDT Returned call to pt and spoke with pt's . Pt took Bumex 2mg 1 tablet. Told them to continue and we would talk with them next week when we get labs. She is agreeable. * Telephone Encounter - Anderson LacieVITALY - 01/14/2018 8:26 AM CDT Message received from pt's reporting pt's weight today was 174.2 lbs. * Addendum Note - Marylou Wilhelm RN - 01/13/2018 3:56 PM CDT Addended by: MARYLOU WILHELM on: 01/13/2018 03:56 PM Modules accepted: Orders * Telephone Encounter - Marylou Wilhelm RN - 01/13/2018 2:27 PM CDT No change per Dr. Gonzalez. Called and spoke with pt and . Notified her that Dr. Gonzalez does not want to make any changes and wants pt to continue Bumex 2mg 1 tab daily. Pt will start chemo and radiation on Wednesday. Requested they have labs drawn on Wednesday. Pt and are agreeable. Called [facility], P:[phone]. Given to send lab order to. * Telephone Encounter - Marylou Wilhelm RN - 01/12/2018 4:37 PM CDT Returned call and spoke with pt and . Told them I have sent the labs to Dr. Gonzalez for review and included Dr. Ferro's recommendation to decrease Bumex 2mg 1 tab to 1/2 tab. Pt's weight today is 175 lbs, although the states his weight is usually around 171-172 lbs. She states the pt only took Bumex 1mg this morning. Pt starts chemo and radiation on Wednesday. Told her I would notify Dr. Gonzalez and call her tomorrow with recommendations and to get a weight update. Pt and are agreeable. * Addendum Note - Marylou Wilhelm RN - 01/12/2018 4:37 PM CDT Addended by: MARYLOU WILHELM on: 01/12/2018 04:37 PM Modules accepted: Orders * Telephone Encounter - Shamir Richmond LPN - 01/12/2018 10:14 AM CDT pts spouse called reporting pt had labs drawn this morning and results should be sent to [facility] today. Spouse also mentions that PCP Dr. Ferro had suggested that pt lower bumex from 1 tablet daily to 0.5 tablet daily. * Telephone Encounter - Lacie Anderson LPN - 01/11/2018 4:50 PM CDT Call placed to Dr. Ferro's office and confirmed with Tona pt did come in for OV with Dr. Ferro today and CBC, CMP was drawn. Requested they fax results to R fax when received. Call placed to pt to get update on weights/symptoms and LM on VM to cb. * Addendum Note - Marylou Wilhelm RN - 01/04/2018 5:25 PM CDT Addended by: MARYLOU WILHELM on: 01/04/2018 05:25 PM Modules accepted: Orders * Telephone Encounter - Marylou Wilhelm RN - 01/04/2018 5:04 PM CDT Reviewed with Dr. Gonzalez. Orders given for pt to decrease Bumex to 2mg daily and recheck labs on Wednesday. Called pt and spoke with pt's spouse. She verbalized instructions and verified they will go to Dr. Ferro's office on Wednesday for lab. Orders faxed to Dr. Ferro's office. * Telephone Encounter - Marylou Wilhelm RN - 01/04/2018 4:46 PM CDT Returned call to pt and notified pts I received labs. Told her I sent a message to Dr. Gonzalez and will notify her if he wants any changes. She states the pt will start chemo and radiation soon. She verbalized understanding of the plan. * Telephone Encounter - Lacie Anderson LPN - 01/04/2018 2:21 PM CDT Call received from pt's requesting to know if we had received BMP results yet. states pt had lab drawn at PCP office. Informed her we have not and will call PCP today to request results. reported pt's weight 174.0 lbs today. Target weight < 175.0. Pt did hold Bumex 2 mg bid for 48 hours and resumed as instructed. Called PCP office and spoke to Shara. She will locate results and fax to R fax. * Telephone Encounter - Marylou Wilhelm RN - 12/30/2017 4:22 PM CDT Returned call to pt and spouse. The spouse, Cheryle, states the pt has a PET scan next Wednesday and they will see Dr. Borja again on Wednesday to review the plan for chemo and radiation. His BP today is 144/73 and weight is 174.4 lbs. He will go to Dr. Ferro's office tomorrow to have labs drawn. I told her I would call her when I receive the labs, but to continue the medications. Pt and spouse are agreeable with the plan. * Telephone Encounter - Shamir Richmond LPN - 12/30/2017 12:31 PM CDT pts spouse called to follow up with Marylou Wilhelm RN after pt had seen Dr. Ramirez today. pts spouse would like to discuss plan going forward and asks if labs to be drawn at Dr. jensen office were faxed. * Addendum Note - Marylou Wilhelm RN - 12/28/2017 5:07 PM CDT Addended by: MARYLOU WILHELM on: 12/28/2017 05:07 PM Modules accepted: Orders * Telephone Encounter - Marylou Wilhelm RN - 12/28/2017 4:56 PM CDT Formatting of this note may be different from the original. Akhil Gonzalez MD Voye, Melanie, RN Looking at his labile kidneys this is going to be tough. Would hold diuretics for 48 hours, then resume, repeat labs Wednesday, target weight < 175 lbs we can do our best. Called and spoke with pt and . Diuretic has been held for the last 2 days so will restart tomorrow and check labs at Dr. Ferro's office on Wednesday. Told them to call the office if his weight drops below 170 lbs. Pt and are agreeable to the plan. Lab req faxed to Dr. Ferro's office. * Telephone Encounter - Marylou Wilhelm RN - 12/28/2017 3:50 PM CDT Returned call to . They have difficulty traveling d/t needing someone to drive them to [place]. They meet with Dr. Ballard on and state the pt is going to start chemo and radiation 5 days a week for 6 weeks sometime soon. He states that his weight is 171.4 lbs today. They have not taken the Bumex since Wednesday afternoon per our instruction. Pt denies SOA and swelling and states that he is keeping a very close watch on his weight. I told her I would review with Dr. Gonzalez to see about managing over the phone as much as possible. They are agreeable. * Telephone Encounter - Yi ShamirVITALY - 12/28/2017 2:37 PM CDT pts returned call from [phone], requests call back to schedule appt. * Telephone Encounter - Marylou Wilhelm RN - 12/27/2017 4:[address] Gonzalez would like for the pt to return to clinic to see CASIMIRO in the next 1-2 weeks. Labs not received yet. Called and LMOM requesting call back to schedule OV with CASIMIRO. * Telephone Encounter - Lacie Anderson LPN - 12/27/2017 9:12 AM CDT Message received from providing update on weights past three days. 12/27 171.6 12/26 172.7 11/24 171.9 Weight 12/24 was 177.5 lbs. Pt is taking Bumex 2 mg bid. * Addendum Note - Marylou Wilhelm RN - 12/24/2017 9:25 AM CDT Addended by: MARYLOU WILHELM on: 12/24/2017 09:25 AM Modules accepted: Orders * Telephone Encounter - Marylou Wilhelm RN - 12/24/2017 9:08 AM CDT Formatting of this note may be different from the original. Akhil Gonzalez MD Voye, Melanie, JOSE MANUEL Caller: Unspecified (Yesterday, 5:02 PM) Double diuretics. Defer to PCP on the blood thinner if ok with PCP Called and spoke with pt's . Pt's weight today is 177.5 lbs. I instructed her to have the pt take Bumex 2mg twice a day approximately 6 hours apart today , tomorrow and Wednesday. I requested the pt weight first thing Wednesday morning and call the clinic to speak with one of us prior to taking the Bumex. I told her I will fax a lab order to Dr. Ferro's office for the pt to have done on Wednesday. She is agreeable. I also told her they will need to speak with Dr. Ferro about restarting and managing the blood thinner. She is agreeable with the plan. * Telephone Encounter - Marylou Wilhelm RN - 12/23/2017 5:16 PM CDT Called and spoke with pt's . She states the pt was taking 2mg Bumex once a day. The pt has not weighed since his OV on Thursday 12/21. I asked that the pt weight first thing tomorrow morning and she states he will. We reviewed the instructions and that Dr. Gonzalez wants the pt's weight to be around 170-175 lbs. She states they have an OV with Dr. Ferro on Wednesday and they are going to discuss restarting his blood thinner. She could not name what blood thinner he was previously on. Told her I would message Dr. Gonzalez to finalize a plan and call her tomorrow with further instructions. She is appreciative of the call. * Telephone Encounter - Marylou Wilhelm RN - 12/23/2017 5:02 PM CDT ----- Message from Ela Hadley sent at 12/22/2017 5:08 PM CDT ----- Regarding: FW: Late call from yesterday ----- Message ----- From: Ela Caldwell RN Sent: 12/22/2017 3:56 PM To: Navin Cisneros Subject: FW: Late call from yesterday ----- Message ----- From: Ela Carnes RN Sent: 12/22/2017 8:14 AM To: Ela Caldwell RN Subject: Late call from yesterday called saying that AJS wanted to know what dose of Lasix patinet was on. She said the last diuretic patient was on was bumetanide 2mg QD. She said he was on Lasix prior to that but it "didn't work." She doesn't have an old bottle , so she doesn't know wht the Lasix dose was. Her call back is . Thanks. in this encounter Plan of Treatment Name Priority Associated Diagnoses Order Schedule BASIC METABOLIC PANEL Routine Pulmonary hypertension Expected: 2017 (HCC) (Approximate), Expires: (HFpEF) heart failure 12/24/2018 with preserved ejection fraction (HCC) BASIC METABOLIC PANEL Routine Pulmonary hypertension Expected: 2017 (HCC) (Approximate), Expires: (HFpEF) heart failure 01/14/2019 with preserved ejection fraction (HCC) as of this encounter Procedures Procedure Name Priority Date/Time Associated Diagnosis Comments BASIC METABOLIC PANEL Routine 01/12/2018 Pulmonary hypertension Results for this 12:00 AM CDT (HCC) procedure are in the (HFpEF) heart failure results section. with preserved ejection fraction (HCC) BASIC METABOLIC PANEL Routine 12/27/2017 Results for this 12:00 AM CDT procedure are in the results section. in this encounter Results * BASIC METABOLIC PANEL (01/12/2018) Sodium 139 [facility] Potassium 4.3 [facility] Chloride 108 (A) 98 - 107 [facility] CO2 21 [facility] Blood Urea Nitrogen 47 (A) 7 - 18 [facility] Creatinine 2.25 (A) 0.6 - 1.3 [facility] Glucose 108 (A) 70 - 105 [facility] Calcium 9.9 [facility] eGFR Non [facility] eGFR [facility] Anion Gap [facility] Specimen Blood - Blood Narrative Performed At Pt currently on bumex 2mg [address] Ferro recommended [facility] decreasing to 0.5 tab.Pt's creatinine still increased from [facility] baseline.Routing to [facility] for review. Performing Organization Address City/State[place] [facility] [address] [place] [address] [facility] * BASIC METABOLIC PANEL (12/31/2017) Sodium 135 [facility] Potassium 4.9 [facility] Chloride 98 [facility] CO2 26 [facility] Blood Urea Nitrogen 67 (A) 9 - 27 [facility] Creatinine 2.6 (A) 0.6 - 1.5 [facility] Glucose 115 [facility] Calcium 10 [facility] eGFR Non 26 (A) 60 [facility] eGFR [facility] Anion Gap 16 (A) 6 - 14 [facility] Specimen Blood - Blood Narrative Performed At Labs stable.Pt taking Bumex 2mg BID.Routing to [facility] for review. OTHER OUTSIDE LAB Performing Organization Address City/State/Zipcode Phone Number OTHER OUT[facility]IDE [facility] * BASIC METABOLIC PANEL (12/27/2017) Sodium 139 [facility] [place] Potassium 4.5 [facility] [place] Chloride 100 [facility] [place] CO2 26 [facility] [place] Blood Urea Nitrogen 62 (A) 9 - 27 [facility] [place] Creatinine 2.7 (A) 0.6 - 1.5 [facility] [place] Glucose 110 [facility] [place] Calcium 9.6 [facility] [place] eGFR Non 24 (A) 59 [facility] [place] eGFR [facility] [place] Anion Gap 18 (A) 6 - 14 [facility] [place] Specimen Blood - Blood Narrative Performed At Pt currently taking Bumex 2mg BID, started on Wednesday.Will be making f/u appt [facility] in the next couple of weeks. Performing Organization Address City/[facility]/Zipcode Phone Number [facility] [address] [place] [address] 10A in this encounter Visit Diagnoses Diagnosis Pulmonary hypertension (HCC) - Primary Other chronic pulmonary heart diseases (HFpEF) heart failure with preserved ejection fraction (HCC)
--- OUTSIDE RECORDS SUMMARY | 2018-02-04 13:25 | XMS REPORT | Encounter Summary ---
Author Author [facility] Organization [facility] Address Unknown Phone Unavailable Care Team Providers Care Rubber Process Hand Name Role Phone Verna Ferro MD PCP Florentin Martinez MD 3 Reason for Visit * Reason Comments Labs Only BMP Encounter Details Date Type Department Care Team Description 01/04/2018 Documentation [facility] Marylou Wilhelm RN Labs Only (BMP) [facility] [place] [address] Social History Tobacco Use Types Packs/Day Years [...] impairment: No 12/21/2017 as of this encounter Plan of Treatment Not on fileas of this encounter Procedures Procedure Name Priority Date/Time Associated Diagnosis Comments BASIC METABOLIC PANEL Routine 12/31/2017 Pulmonary hypertension Results for this 12:00 AM CDT (HCC) procedure are in the (HFpEF) heart failure results section. with preserved ejection fraction (HCC) in this encounter Results * BASIC METABOLIC PANEL (12/31/2017) Sodium 135 [...] Labs stable.Pt taking Bumex 2mg BID.Routing to S for review. OTHER OUTSIDE LAB Performing Organization Address City/State/Zipcode Phone Number OTHER OUTSIDE LAB in this encounter Visit Diagnoses Diagnosis Pulmonary hypertension (HCC) Other chronic pulmonary heart diseases (HFpEF) heart failure with preserved ejection fraction (HCC)
--- OUTSIDE RECORDS SUMMARY | 2018-02-04 13:26 | XMS REPORT | Encounter Summary ---
Author Author [facility] Organization [facility] Address Unknown Phone Unavailable Care Team Providers Care Material Handler Floorperson Name Role Phone Verna Ferro MD PCP Florentin Martinez MD 3 Encounter Details Date Type Department Care Team Description 11/23/2017 Procedure [facility] [address] [place] [address] Social History Tobacco Use Types Packs/Day Years [...]
--- OUTSIDE RECORDS SUMMARY | 2018-02-04 13:26 | XMS REPORT | Encounter Summary ---
Author Author [facility] Organization [facility] Address Unknown Phone Unavailable Care Team Providers Care Payroll Accounting Specialist Name Role Phone Verna Ferro MD PCP Florentin Martinez MD 3 Reason for Visit * Auth/Cert Status Reason Specialty Diagnoses / Referred By Referred To Procedures Contact Contact Diagnoses Lung nodule Lung nodule [R91.1] P rocedures MT BRONCHOSCOPY W/CPTR-ASST IMAGE-GUIDED NAVIGATION MT BRNCC EBUS GUIDED SAMPL 3/> NODE STATION/STRUX BRONCHOSCOPY RIGID BRONCHOSCOPY WITH ULTRASOUND Encounter Details Date Type Department Care Team Description 12/01/2017 [facility] Eduardo Brunson MD Lung nodule Encounter Endoscopy [address] [place] [address] [place] [address] [phone] Social History Tobacco Use Types Packs/Day Years Used Date Current Some Day Smoker Cigars Smokeless Tobacco: Never Used Alcohol Use Drinks/Week oz/Week Comments No Sex Assigned at Date Recorded Not on file as of this encounter Last Filed Vital Signs Vital Sign Reading Time Taken Blood Pressure 128/57 12/01/2017 4:18 PM CDT Pulse 79 12/01/2017 4:18 PM CDT Temperature 36.4 C (97.5 F) 12/01/2017 3:58 PM CDT Respiratory Rate - - Oxygen Saturation 96% 12/01/2017 4:18 PM CDT Inhaled Oxygen - - Concentration Weight 80.7 kg (178 lb) 12/01/2017 12:26 PM CDT Height 177.8 cm (5' 10") 12/01/2017 12:26 PM CDT Body Mass Index 25.54 12/01/2017 12:26 PM CDT in this encounter Functional Status [...] impairment: No 11/04/2017 as of this encounter Discharge Instructions * Discharge Instr - Education - Kassidy Sandoval RN - 12/01/2017 4:16 PM CDT POST BRONCHOSCOPY INSTRUCTIONS 1. When your brochscopy is over, you will remain in the Recovery Room at least 30 minutes or until the nurse and/or doctor has released you to go home or back to your room. 2. You will not be allowed to have anything to eat or drink for about 1 - 2 hours following the procedure. You may start with a sip of water then advance your diet as directed. 3. You may have a sore throat after the topical numbing spray wears off. You may use Sucrets or any kind of throat lozenges as needed. 4. If samples of lung tissue (biopsies) are taken, you might cough up sputum with streaks of blood in it. This is normal. If you cough up greater than one tablespoon of bloody sputum, you need to notify the pulmonary doctor. 5. You may spike a fever approximately 4 hours after your brochoscopy. If your temperature is over 101 degrees, notify your doctor. 6. If you develop increased shortness of breath and/or chest pain following your bronchoscopy, notify your doctor. 7. You may experience increased mild coughing for several days following your brochoscopy. If your cough becomes severe and/or productive of discolored sputum, notify your doctor. 8. Avoid smoking for at least 24 hours. SPECIFIC INSTRUCTIONS INPATIENTS: Ask for help when you get up in your room, as you may still be drowsy from your sedation. OUTPATIENTS: A. Because of sedation and lack of coordination, UNTIL TOMORROW- DO NOT: 1. Operate any motorized vehicle - this includes driving. 2. Sign any legal documents or conduct important business matters. 3. Use any dangerous machinery (chain saw, lawnmower, etc.). 4. Drink any alcoholic beverages. B. If you should have any questions or problems after your procedure please call [phone] between the hours of 8 a.m. until 4:30 p.m. After 4:30 p.m., holidays, or weekends call [phone] and ask for the Pulmonary Physician alternative education teacher. in this encounter Medications at Time of Discharge Medication Sig. Disp. Refills Start Date End Date ALPRAZolam (XANAX) 0.5 mg Take 0.5 mg by mouth tablet twice daily as needed for Anxiety. amLODIPine (NORVASC) 10 Take 1 tablet by mouth 90 tablet 3 11/04/2017 mg tablet daily. aspirin EC 81 mg tablet Take 1 tablet by mouth 90 tablet 3 11/08/2017 daily. Take with food. atorvastatin (LIPITOR) 80 Take 80 mg by mouth mg tablet daily. carvedilol (COREG) 25 mg Take 25 mg by mouth twice tablet daily with meals. Take with food. cholecalciferol (VITAMIN Take 400 Units by mouth D-3) 400 unit tab tablet daily. folic Take 1 tablet by mouth acid/multivit-min/lutein daily. (CENTRUM SILVER PO) hydrALAZINE (APRESOLINE) Take 1 tablet by mouth 180 tablet 3 2017 10 mg tablet twice daily. lactobacillus rhamnosus Take 1 capsule by mouth (GG) (CULTURELLE) 10 daily with breakfast. billion cell cap melatonin 3 mg tab Take 9 mg by mouth at bedtime daily. tamsulosin (FLOMAX) 0.4 Take 0.4 mg by mouth mg capsule daily. Do not crush, chew or open capsules. Take 30 minutes following the same meal each day. valsartan (DIOVAN) 80 mg Take 1 tablet by mouth 90 tablet 3 2017 tablet daily. as of this encounter H&P Notes * Eduardo Brunson MD - 12/01/2017 1:40 PM CDT Formatting of this note may be different from the original. Pre Procedure History and Physical/Sedation Plan Name:Ashley Schmitt :1940 Age: 77 y.o. Date of Service: 12/01/2017 Date of Procedure: 12/01/2017 Planned Procedure(s): Pulmonary: EBUS/ENB/possible perc lung bx Sedation/Medication Plan: General Anesthesia Discussion/Reviews: Physician has discussed risks and alternatives of this type of sedation and above planned procedures with patient Chief Complaint: RUL mass History of Present Illness: Ashley Schmitt is a 77 y.o. male with RUL mass, previous nondiagnostic biopsies Previous Anesthetic/Sedation History: Per anesthesia Past Medical History: Diagnosis Date Aortic stenosis Arthritis Atrial fibrillation (HCC) CAD (coronary artery disease) GERD (gastroesophageal reflux disease) Hyperlipidemia Hypertension Lung mass Mitral valve regurgitation Pulmonary hypertension (HCC) Past Surgical History: Procedure Laterality Date DENTAL SURGERY 1982 HAND SURGERY 1987 CAROTID ENDARDECTOMY 1990 CORONARY ARTERY BYPASS GRAFT 1992 HEART CATHETERIZATION 1992 APPENDECTOMY 01/2014 Pertinent medical/surgical history reviewed Pertinent family history reviewed Social History Substance Use Topics Smoking status: Current Some Day Smoker Types: Cigars Smokeless tobacco: Never Used Alcohol use No History Drug Use No Allergies: Nitroglycerin and Amoxicillin Medications Current Facility-Administered Medications Medication sodium chloride 0.9 % infusion tetracaine 0.25% /EPINEPHrine 0.003%(#) injection Facility-Administered Medications Ordered in Other Encounters Medication dexamethasone (DECADRON) injection dextran 70/hypromellose (GENTEAL TEARS; BION TEARS) ophthalmic solution ePHEDrine injection fentaNYL citrate PF (SUBLIMAZE) injection lidocaine (PF) injection ondansetron (ZOFRAN) injection phenylephrine in NS injection syringe propofol (DIPRIVAN) infusion propofol (DIPRIVAN) injection succinylcholine (ANECTINE) injection vasopressin (VASOSTRICT) injection Review of Systems: A 14 point review of systems was negative except for: Respiratory: positive for dyspnea on exertion Physical Exam: Temp: 36.5 C (97.7 F) (12/01 1226) Pulse: 80 (12/01 1226) Respirations: 19 PER MINUTE (12/01 1226) BP: 135/70 (12/01 1226) General appearance: alert, cooperative and no distress Throat: Lips, mucosa, and tongue normal. Teeth and gums normal Lungs: clear to auscultation bilaterally Heart: regular rate and rhythm, S1, S2 normal, no murmur, click, rub or gallop Abdomen: soft, non-tender. Bowel sounds normal. No masses, no organomegaly Extremities: extremities normal, atraumatic, no cyanosis or edema @ Airway: per anesthesia Anesthesia Classification: ASA III (A patient with a severe systemic disease that limits activity, but is not incapacitating) NPO Status: Acceptable Status: N/A Lab/Radiology/Other Diagnostic Tests Labs: Relevant labs reviewed Eduardo Brunson MD Pager [phone] in this encounter Plan of Treatment Name Priority Associated Diagnoses Order Schedule PATHOLOGY SURGICAL < 5 SPECIMENS Routine Lung nodule ONCE for 1 Occurrences starting 12/01/2017 as of this encounter Procedures Procedure Name Priority Date/Time Associated Diagnosis Comments PROCEDURE RECORD-SCAN 12/02/2017 Results for this 3:14 [...] nodule ULTRASOUND 1:45 PM CDT Special Needs Morena/Mandi britt. Please sched 12/01/17 @ 1:30pm. 2 hr block. Thanks BRONCHOSCOPY RIGID 12/01/2017 Lung nodule 1:45 PM CDT Special Needs Morena/Mandi britt. Please sched 12/01/17 @ 1:30pm. 2 hr block. Thanks BASIC METABOLIC PANEL 12/01/2017 Results for this 1:13 PM CDT procedure are in the results section. NON-INSOLE AND OUTSOLE PREPARER CYTOLOGY (BODY 12/01/2017 Results for this FLUIDS/TISSUE) 9:48 AM CDT procedure are in the results section. in this encounter Results * PROCEDURE RECORD-SCAN (12/02/2017 3:14 PM) Narrative Performed At Ordered by an unspecified provider. * TELEMETRY STRIPS-SCAN (12/02/2017 3:11 PM) Narrative Performed At Ordered by an unspecified provider. * SURGICAL PATHOLOGY (12/01/2017 4:33 PM) PATHOLOGY REPORT [email or web address] Department of Pathology and Laboratory Medicine [address] [place] [address] Surgical Pathology Office:[phone] :[phone] SURGICAL PATHOLOGY REPORT NAME: ASHLEY SCHMITT SURG PATH #: [id number] MR #: [id number] SPECIMEN CLASS: SR BILLING #: [id number] ALT ID #:LOCATION: [facility] DATE OF PROCEDURE: 12/01/2017 AGE:77 SEX: M DATE RECEIVED: 12/01/2017 : 1940TIME RECEIVED:16:33 PHYSICIAN: EDUARDO BRUNSON DATE OF REPORT: 12/03/2017 COPY TO:DATE OF PRINTIN12/03/2017 ############################## ############################## ############ Final Diagnosis: A. Respiratory and focal squamous epithelium, "right upper lobe mass biopsy": Minute fragment of markedly atypical cells, cannot exclude carcinoma. Please correlate with the concurrent cytology specimen ([id number]). See comment. Comment: Immunostains performed on block [...] specimen is entirely submitted in cassettes A1-A2. (cg) cg/12/01/2017 If immunohistochemical stains and/or in situ hybridization are cited in this report, the performance characteristics were determined by the Department of Pathology and Laboratory Medicine of the [facility] ([employer] [facility] [employer]) in compliance with CLIA'88 regulations.Some [...] necessary. Performing Organization Address City/State/Zipcode Phone Number LAB RESULTS * FINE NEEDLE ASPIRATE (FNA) (12/01/2017 3:31 PM) Cytology [email or web address] Department of Pathology and Laboratory Medicine [address] [place] [address] Surgical Pathology Office:[phone] :[phone] CYTOLOGY REPORT NAME: ASHLEY SCHMITT SURG PATH #: [id number] MR #: [id number] ALT ID #: BILLING #: [id number] LOCATION: [facility] DATE OF PROCEDURE: 12/01/2017 AGE: 77 [...] determination of adequacy was performed by the violin repairer, ET, on Diff-Quik stained slide(s). Pass 1 and 2 were not adequate for evaluation. Pass 3 was placed entirely in RPMI for cell block preparation. B.( 2 DQ direct smear, 2 Pap direct smear, 1 cell block) Rapid determination of adequacy was performed by the violin repairer, ET, on Diff-Quik stained slide(s). Pass 1 and [...] Please also see concurrent surgical pathology report ([id number]). Comment: Immunostains performed on the cell block [...] tissue, precluding further testing. Pursuant to the [place] Splitter Operator Program at the [facility] Pathology Department, selected slides from [...] in this report. +++Electronically Signed Out By+++ /12/02/2017 Interpreted by: AYANA Mccarty D.O. Procedures/Addenda Addendum Date Ordered: 12/08/2017 Status:Signed Out Date Complete: 12/08/2017 By: AYANA Mccarty Date Reported: 12/08/2017 Addendum Diagnosis PD-L1: Results: % Positive: 30% Interpretation: Low PD-L1 expression (Tumor proportion Score 1-49%) Comment: PD-L1 test name: DAKO PD-L1 IHC 22C3 pharmDX Cell types evaluated: Tumor cells FDA status: Academic Affairs Coordinator Addendum Comment A CK20 immunostain on the cell block is negative in the tumor cells, supporting the original diagnosis. AYANA Mccarty Performing Organization Address City/State/Zipcode Phone Number LAB RESULTS * CULTURE-FUNGAL,OTHER (12/01/2017 3:17 PM) Battery Name FUNGUS CULTURE MAIN LAB Specimen Description TISSUE MAIN LAB RIGHT UPPER LOBE MASS Special Requests NONE MAIN LAB Culture NO GROWTH OF FUNGUS AT 4 WEEKS [facility] MAIN [facility] Report Status FINAL MAIN LAB 01/03/2018 Specimen Tissue Performing Organization Address City/State/Zipcode Phone Number MAIN LAB [address] [place] [address] * CULTURE-TB (AFB) (12/01/2017 3:17 PM) Battery Name AFB CULTURE [facility] MA[facility] Specimen Description TISSUE MAIN LAB RIGHT UPPER LOBE MASS Special Requests NONE MAIN LAB Culture NO GROWTH OF MYCOBACTERIA AT 6 MAIN LAB WEEKS Report Status FINAL MAIN LAB 01/17/2018 Specimen Tissue Performing Organization Address City/State/Zipcode Phone Number [facility] [address] [place] [address] * CT CHEST WO CONTRAST (12/01/2017 2:05 [...] and CABG with dense calcification of the [place] coronary arteries. The thoracic aorta is normal [...] and CABG with dense calcification of the [place] coronary arteries. The thoracic aorta is normal [...] OTHER RESULTS Procedure Date: 12/01/2017 1:50 PM CSN: [id number] Date of : 1940 Gender: Male Attending Physician: Eduardo Brunson MD Procedure: Bronchoscopy Indications: Right upper lobe mass Providers: Eduardo Brunson MD (Doctor), Milla Lou (Nurse), Vera Stewart, RN (Nurse), Bon Angel, Driver Education Road Instructor (Driver Education Road Instructor), Minal Vega, Driver Education Road Instructor (Driver Education Road Instructor) Referring Physician:Vrena Ferro Medications: Tetricaine 0.25%/Epinephrine 0.003% 10 mL [...] inadequate cellularity. Electromagnetic navigation bronchoscopy utilizing the [employer] Medical system was performed. The CT scan was [...] City/State/Zipcode Phone Number [facility] OTHER RESULTS * BASIC METABOLIC PANEL (12/01/2017 1:13 PM) Sodium 138 137 - 147 MMOL/L [facility] Potassium 4.5 3.5 - 5.1 MMOL/L [facility] Chloride 110 98 - 110 MMOL/L [facility] CO2 20 (L) 21 - 30 MMOL/L [facility] Anion Gap 8 3 - 12 [facility] Glucose 97 70 - 100 MG/DL [facility] Blood Urea Nitrogen 40 (H) 7 - 25 MG/DL [facility] Creatinine 2.03 (H) 0.4 - 1.24 MG/DL [facility] Calcium 10.6 8.5 - 10.6 MG/DL [facility] eGFR Non 32 (L) >60 mL/min [facility] Comment: The eGFR is not validated for use in drug dosing adjustments.Continue to use estimated creatinine clearance per dosing reference text.Please contact the Clinical Pharmacist for questions. eGFR 39 (L) >60 mL/min [facility] Comment: The eGFR is not validated for use in drug dosing adjustments.Continue to use estimated creatinine clearance per dosing reference text.Please contact the Clinical Pharmacist for questions. Performing Organization Address City/State/Zipcode Phone Number [facility] [address] [place] [address] * NON-INSOLE AND OUTSOLE PREPARER CYTOLOGY (BODY FLUIDS/TISSUE) (12/01/2017 9:48 AM) Cytology [email or web address] Department of Pathology and Laboratory Medicine [address] [place] [address] Surgical Pathology Office:[phone] :[phone] CYTOLOGY REPORT NAME: ASHLEY SCHMITT CYTOLOGY #: [id number] MR #: [id number] ALT ID #: BILLING #: [id number] LOCATION: [facility] DATE OF PROCEDURE: 12/01/2017 AGE: 77 [...] cells. Please also see concurrent cytology report ([id number]) and surgical pathology report ([id number]). Attestation: By this signature, I attest that I have personally formulated the final interpretation expressed in this report and that the above diagnosis is based upon my examination of the slides and/or other material indicated in this report. +++Electronically Signed Out By+++ dianna/12/02/2017 Interpreted by: MD Jalyn Mcfadden MD Resident Performing Organization Address City/State/Zipcode Phone Number [facility] RESULTS in this encounter Visit Diagnoses Diagnosis Lung nodule Solitary pulmonary nodule Admitting Diagnoses Diagnosis Lung nodule - Lung nodule [R91.1] Solitary pulmonary nodule Administered Medications Medication Order MAR Action Action Date Dose Rate Site sodium chloride 0.9 % infusion Given - New 12/01/2017 1,000 mL, Intravenous, CONTINUOUS, Bag 14:15 CDT Starting Wed12/01/17 at 1400, Until Wed12/01/17 at 1849, Pre-Op tetracaine 0.25% /EPINEPHrine 0.003%(#) Given 12/01/2017 15 mL injection 15:36 CDT INTRA-PROCEDURE MED, Starting Wed12/01/17 at 1536, Until Wed12/01/17 at 1849, Intra-op in this encounter
--- OUTSIDE RECORDS SUMMARY | 2018-02-04 13:26 | XMS REPORT | Encounter Summary ---
Author Author [facility] Organization [facility] Address Unknown Phone Unavailable Care Team Providers Care Medical Billing Service Name Role Phone Verna Ferro MD PCP Florentin Martinez MD 3 Reason for Visit * Reason Comments Medical Question Encounter Details Date Type Department Care Team Description 11/25/2017 Telephone [facility] CARDIOLOG[facility] Lacie Anderson LPN Medical Question [facility] [place] [address] Social History Tobacco Use Types Packs/Day Years [...] encounter Miscellaneous Notes * Telephone Encounter - Lacie Anderson LPN - 11/25/2017 9:53 AM CDT Call received from pt's requesting cb. Pt has HC by Dr. Gonzalez 11/23/17. They were supposed to take the dressings off today but cannot get the adhesive to release. Advised to use an alcohol pad or wet wash cloth to lift one edge of the dressing then keeping the skin taught slowly loosen the remaining edges. reports she can see blood at the bottom of the dressing to pt's neck and thought it looked like the incision was open. could be heard in the background disagreeing but asking if he can go to his PCP to look at it. Advised to call CTR at [phone] to report concerns with incision. Assured her they will call her back directly. in this encounter Plan of Treatment Not on fileas of this encounter Visit Diagnoses Not on filein this encounter
--- OUTSIDE RECORDS SUMMARY | 2018-02-04 13:26 | XMS REPORT | Encounter Summary ---
Author Author [facility] Organization [facility] Address Unknown Phone Unavailable Care Team Providers Care Saddle Maker Name Role Phone Verna Ferro MD PCP Florentin Martinez MD 3 Encounter Details Date Type Department Care Team Description 12/01/2017 Procedure Pass Gastrointenstinal Endoscopy [address] [place] [address] Social History Tobacco Use Types Packs/Day Years [...]
--- OUTSIDE RECORDS SUMMARY | 2018-02-04 13:26 | XMS REPORT | Encounter Summary ---
Author Author [facility] Organization [facility] Address Unknown Phone Unavailable Care Team Providers Care Leadership Development Instructor Name Role Phone Verna Ferro MD PCP Florentin Martinez MD 3 Encounter Details Date Type Department Care Team Description 11/23/2017 Anesthesia Cardiac Catheterization Kim Emery SRNA Event Laboratory [address] [place] [address] Anesthesia Record Procedure Name Responsible Anesthesia Start Time Anesthesia Stop Time Anesthesiologist CATHETERIZATION RIGHT HEART (N/A ) No events on file. Meds * No agents on file. * No blood administrations on file. Type Details Placement Removal Puncture 11/23/17; 1453; Right; Jugular 11/23/17 1453 by Devin Nagy RN (Sheath) Peripheral 11/23/17; 1140; RN; L; Lower; Forearm; 11/23/17 1140 by Lilo, 11/23/17 1530 by Lilo, IV 20 G; No; 1; Therapy completed; JOSE MANUEL Han RN 11/23/17; 1530 Peripheral 12/01/17; 1231; RN; R; Lower; Forearm; 12/01/17 1231 by Langat , 12/01/17 1647 by Sandoval, IV 20 G; 12/01/17; 1647 JOSE MANUEL Chen, JOSE MANUEL ETT 12/01/17; 1418; Ventilated by mask (1); 12/01/17 1418 by 12/01/17 1554 by Stylet, Direct laryngoscopy; Payton Galvez, CAMPUS SAFETY OFFICER Payton Galvez, CAMPUS SAFETY OFFICER Single-Lumen, Cuffed; 8.5mm; Mac; 4; Oral; 1-Full [...]
--- OUTSIDE RECORDS SUMMARY | 2018-02-04 13:26 | XMS REPORT | Encounter Summary ---
Author Author [facility] Organization [facility] Address Unknown Phone Unavailable Care Team Providers Care Digital Photographic Printer Name Role Phone Verna Ferro MD PCP Florentin Martinez MD 3 Encounter Details Date Type Department Care Team Description 11/29/2017 Prep for Case XDD INT MED Eduardo Berg MD Lung nodule ( Primary Dx) Ortho and Medical [address] [facility] [address] [place] [address] [place] [address] [place] [address] [phone] Social History Tobacco Use Types Packs/Day Years [...] fileas of this encounter Visit Diagnoses Diagnosis Lung nodule - Primary Solitary pulmonary nodule
--- OUTSIDE RECORDS SUMMARY | 2018-02-04 13:26 | XMS REPORT | Encounter Summary ---
Author Author [facility] Organization [facility] Address Unknown Phone Unavailable Care Team Providers Care Venetian Blind Installer Name Role Phone Verna Ferro MD PCP Florentin Martinez MD 3 Reason for Visit * Auth/Cert Status Reason Specialty Diagnoses / Referred By Referred To Procedures Contact Contact Diagnoses Lung nodule Lung nodule [R91.1] P rocedures MD BRONCHOSCOPY W/CPTR-ASST IMAGE-GUIDED NAVIGATION [facility] GUIDED SAMPL 3/> NODE STATION/STRUX BRONCHOSCOPY RIGID BRONCHOSCOPY WITH ULTRASOUND Encounter Details Date Type Department Care Team Description 12/01/2017 Surgery Gastrointenstinal Eduardo Brunson MD BRONCHOSCOPY RIGID Endoscopy [address] [place] [address] [place] [address] [phone] Social History Tobacco Use Types Packs/Day Years [...] or problems after your procedure please call [phone] between the hours of 8 a.m. until 4:30 p.m. After 4:30 p.m., holidays, or weekends call [phone] and ask for the Pulmonary Physician weight and balance control agent. in this encounter Medications at Time of [...] Relevant labs reviewed Eduardo Brunson MD Pager [phone] in this encounter Plan of Treatment Name [...] CDT procedure are in the results section. NON-MANAGER MARITIME CYTOLOGY (BODY 12/01/2017 Results for this FLUIDS/TISSUE) 9:48 AM CDT procedure are in the results section. in this encounter Results * PROCEDURE RECORD-SCAN (12/02/2017 3:14 PM) Narrative Performed At Ordered by an unspecified provider. * TELEMETRY STRIPS-SCAN (12/02/2017 3:11 PM) Narrative Performed At Ordered by an unspecified provider. * SURGICAL PATHOLOGY (12/01/2017 4:33 PM) PATHOLOGY REPORT [facility] [email or web address] Department of Pathology and Laboratory Medicine [address] [place] [address] Surgical Pathology Office:[phone] :[phone] SURGICAL PATHOLOGY REPORT NAME: ASHLEY SCHMITT SURG PATH #: [id number] MR #: [id number] SPECIMEN CLASS: SR BILLING #: [id number] ALT ID #:[facility]: [facility] DATE OF PROCEDURE: 12/01/2017 AGE:77 SEX: M DATE RECEIVED: 12/01/2017 : 1940TIME RECEIVED:16:33 PHYSICIAN: EDUARDO BRUNSON DATE OF REPORT: 12/03/2017 COPY TO:DATE OF PRINTIN12/03/2017 ############################## ############################## ############ Final Diagnosis: A. Respiratory and focal squamous epithelium, "right upper lobe mass biopsy": Minute fragment of markedly atypical cells, cannot exclude carcinoma. Please correlate with the concurrent cytology specimen ([id number]). See comment. Comment: Immunostains performed on block [...] of Pathology and Laboratory Medicine of the [facility] ([place] [facility] [employer]) in compliance with CLIA'88 regulations.Some [...] of Pathology and Laboratory Medicine of the [facility].It has not been cleared or approved by the FDA.The FDA has determined that such clearance or approval is not necessary. Performing Organization Address City/State/Zipcode Phone Number LAB RESULTS * FINE NEEDLE ASPIRATE (FNA) (12/01/2017 3:31 PM) Cytology [facility] [email or web address] Department of Pathology and Laboratory Medicine [address] [place] [address] Surgical Pathology Office:[phone] :[phone] CYTOLOGY REPORT NAME: ASHLEY SCHMITT SURG PATH #: [id number] MR #: [id number] ALT ID #: BILLING #: [id number] [facility] DATE OF PROCEDURE: 12/01/2017 AGE: 77 [...] determination of adequacy was performed by the assistant offset press operator, ET, on Diff-Quik stained slide(s). Pass 1 and 2 were not adequate for evaluation. Pass 3 was placed entirely in RPMI for cell block preparation. B.( 2 DQ direct smear, 2 Pap direct smear, 1 cell block) Rapid determination of adequacy was performed by the assistant offset press operator, ET, on Diff-Quik stained slide(s). Pass 1 [...] Please also see concurrent surgical pathology report ([id number]). Comment: Immunostains performed on the cell block [...] tissue, precluding further testing. Pursuant to the Clinical Laboratory Aide Program at the [facility] Pathology Department, selected slides from this case [...] Cell types evaluated: Tumor cells FDA status: Sizing End Bander Addendum Comment A CK20 immunostain on the [...] LAB 01/03/2018 Specimen Tissue Performing Organization Address City/[facility]/Zipcode Phone Number MAIN LAB [address] [place] [address] * CULTURE-TB (AFB) (12/01/2017 3:17 PM) Battery Name AFB CULTURE KU MAIN LAB Specimen Description TISSUE MAIN LAB RIGHT UPPER LOBE MASS Special Requests NONE MAIN LAB Culture NO GROWTH OF MYCOBACTERIA AT 6 MAIN LAB WEEKS Report Status FINAL MAIN LAB 01/17/2018 Specimen Tissue Performing Organization Address City/State/Zipcode Phone Number [facility] [address] [place] [address] * CT CHEST WO CONTRAST (12/01/2017 2:05 [...] and 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 The thoracic aorta is normal [...] RESULTS Procedure Date: 12/01/2017 1:50 PM CSN: [id number] Date of : 1940 Gender: Male Attending Physician: Eduardo Brunson MD Procedure: Bronchoscopy Indications: Right upper lobe mass Providers: Eduardo Brunson MD (Doctor), Milla Lou (Nurse), Vera Stewart, RN (Nurse), Bon Angel, Lumber Press Operator (Lumber Press Operator), Minal Vega, Lumber Press Operator (Lumber Press Operator) Referring Physician:Verna Ferro Medications: Tetricaine 0.25%/Epinephrine 0.003% [...] inadequate cellularity. Electromagnetic navigation bronchoscopy utilizing the LiveBu[employer] system was performed. The CT scan was [...] questions. Performing Organization Address City/State/Zipcode Phone Number [facility] [address] [place] [address] * NON-MANAGER MARITIME CYTOLOGY (BODY FLUIDS/TISSUE) (12/01/2017 9:48 AM) Cytology [facility] [email or web address] Department of Pathology and Laboratory Medicine [address] [place] [address] Surgical Pathology Office:[phone] :[phone] CYTOLOGY REPORT NAME: ASHLEY SCHMITT CYTOLOGY #: [id number] MR #: [id number] ALT ID #: BILLING #: [id number] [facility] DATE OF PROCEDURE: 12/01/2017 AGE: 77 [...] cells. Please also see concurrent cytology report ([id number]) and surgical pathology report ([id number]). Attestation: By this signature, I attest that [...]
--- OUTSIDE RECORDS SUMMARY | 2018-02-04 13:27 | XMS REPORT | Encounter Summary ---
Author Author [facility] Organization [facility] Address Unknown Phone Unavailable Care Team Providers Care Ore Miner Name Role Phone Verna Ferro MD PCP Florentin Martinez MD 3 Reason for Visit * Auth/Cert Status Reason Specialty Diagnoses / Referred By Referred To Procedures Contact Contact Diagnoses Pulmonary hypertension (HCC) (HFpEF) heart failure with preserved ejection fraction (HCC) unknown Procedures [place] RIGHT HEART CATH O2 SATURATION & CARDIAC OUTPUT CATHETERIZATION RIGHT HEART Encounter Details Date Type Department Care Team Description 11/23/2017 Surgery Cardiac Catheterization Aamir Carrillo MD CATHETERIZATION RIGHT Laboratory [address] HEART [address] [place] [address] [place] [address] [phone] Social History Tobacco Use Types Packs/Day Years Used Date Current Some Day Smoker Cigars Smokeless Tobacco: Never Used Alcohol Use Drinks/Week oz/Week Comments No Sex Assigned at Date Recorded Not on file as of this encounter Last Filed Vital Signs Vital Sign Reading Time Taken Blood Pressure 145/92 11/23/2017 3:46 PM CDT Pulse 74 11/23/2017 3:43 PM CDT Temperature 36.6 C (97.8 F) 11/23/2017 2:53 PM CDT Respiratory Rate - - Oxygen Saturation 96% 11/23/2017 3:43 PM CDT Inhaled Oxygen - - Concentration Weight 78.5 kg (173 lb 1 oz) 11/23/2017 11:18 AM CDT Height 177.8 cm (5' 10") 11/23/2017 11:18 AM CDT Body Mass Index 24.83 11/23/2017 11:18 AM CDT in this encounter Functional Status [...] No 11/04/2017 as of this encounter Discharge Summaries * Gertrude Espinoza APRN - 11/23/2017 4:09 PM CDT Formatting of this note may be different from the original. Physician Discharge Summary Name: Ashley Schmitt Date Of : 1940 Age: 77 years Admit date: 11/23/2017 Discharge date: 11/23/2017 Attending Physician: Aamir Carrillo MD Service: Med-Cardiovasc Physician Summary completed by: Gertrude Espinoza APRN Reason for hospitalization: Right Heart Catheterization Significant PMH: Past Medical History: Diagnosis Date Aortic stenosis Arthritis Atrial fibrillation (HCC) CAD (coronary artery disease) GERD (gastroesophageal reflux disease) Hyperlipidemia Hypertension Lung mass Mitral valve regurgitation Pulmonary hypertension (HCC) Allergies: Nitroglycerin and Amoxicillin Admission Lab/Radiology studies notable for: Hematology: Lab Results Component Value Date HGB 12.5 11/23/2017 HCT 37.1 11/23/2017 PLTCT 340 11/23/2017 WBC 8.4 11/23/2017 MCV 79.3 11/23/2017 MCHC 33.6 11/23/2017 MPV 8.8 11/23/2017 RDW 18.3 11/23/2017 , Coagulation: No results found for: PT, PTT, INR and General Chemistry: Lab Results Component Value Date NA 136 10/28/2017 K 5.2 10/28/2017 CL 106 10/28/2017 GAP 5 10/28/2017 BUN 46 10/28/2017 CR 1.94 10/28/2017 GLU 84 10/28/2017 CA 10.6 10/28/2017 Brief Hospital Course: 77-year-old male, with past medical history notable for ongoing coronary artery disease, status post CABG in 1990, without need for further PCI, stents, or bypass grafting since then, peripheral vascular disease with carotid endarterectomy bilaterally, hypertension, hyperlipidemia, aortic stenosis of unclear degree, permanent atrial fibrillation on systemic anticoagulation with Coumadin, and heart failure with preserved ejection fraction. Recent echocardiogram, reviewed by Dr. Carrillo and Dr. Alicia, was concerning for compensated HF w/ elevated PAP of 60mmHg. Because of this the patient is not a candidate for lung resection. He was scheduled for RHC to further evaluate for pulmonary hypertension. He underwent procedure with Dr. Carrillo on 11/23/17, procedural details noted below. Dr. Carrillo discussed RHC results with Dr. Alicia and then with family. Plan will be to present the patient's case at tumor board for further discussion about optimization for surgery. The patient does have some increased risk for decompensation and heart failure progression. F/u scheduled with Dr. Carrillo on 12/21/17. He is stable for discharge. Upon discharge the patient and family were given post procedure instructions/restrictions as well as written instructions (see Discharge instructions). Condition at Discharge: Stable Discharge Diagnoses: Hospital Problems Active Problems Pulmonary hypertension (HCC) (HFpEF) heart failure with preserved ejection fraction (HCC) Surgical Procedures: None Significant Diagnostic Studies and Procedures: 11/23/[address] Carrillo FINDINGS: At the time of the patient's [...] both thermodilution and Cat cardiac output indices. Consults: None Patient Disposition: Home Patient instructions/medications: Activity as Tolerated It is important to keep increasing your activity level after you leave the hospital. Moving around can help prevent blood clots, lung infection (pneumonia ) and other problems. Gradually increasing the number of times you are up moving around will help you return to your normal activity level more quickly. Continue to increase the number of times you are up to the chair and walking daily to return to your normal activity level. Begin to work towards your normal activity level at discharge. Driving Restrictions No driving for 1 day(s) Report These Signs and Symptoms Please contact your doctor if you have any of the following symptoms: Chest pain , shortness of breath, lightheadedness, dizziness, near fainting, palpitations, neck pain, or bleeding. Questions About Your Stay For questions or concerns regarding your hospital stay: - DURING BUSINESS HOURS (8:00 AM - 4:30 PM): Call [phone] and asked to be transferred to your discharge attending physician. - AFTER BUSINESS HOURS (4:30 PM - 8:00 AM, on weekends, or holidays): Call [phone] and ask the wool washing machine operator to page the on-call doctor for the discharge attending physician. Discharging attending physician: AAMIR CARRILLO [[id number]] Cardiac Diet Limiting unhealthy fats and cholesterol is the most important step you can take in reducing your risk for cardiovascular disease. Unhealthy fats include saturated and trans fats. Monitor your sodium and cholesterol intake. Restrict your sodium to 2g (grams) or 2000mg (milligrams) daily, and your cholesterol to 200mg daily. If you have questions regarding your diet at home, you may contact a dietitian at . Return Appointment Return as directed [facility] Provider ABDULLAHI ALICIA [[id number]] Current Discharge Medication List CONTINUE these medications which have NOT CHANGED Details ALPRAZolam (XANAX) 0.5 mg tablet Take 0.5 mg by mouth three times daily as needed for Anxiety. PRESCRIPTION TYPE: Historical Med amLODIPine (NORVASC) 10 mg tablet Take 1 tablet by mouth daily. Qty: 90 tablet, Refills: 3 PRESCRIPTION TYPE: Normal aspirin EC 81 mg tablet Take 1 tablet by mouth daily. Take with food. Qty: 90 tablet, Refills: 3 PRESCRIPTION TYPE: Normal atorvastatin (LIPITOR) 80 mg tablet Take 80 mg by mouth daily. PRESCRIPTION TYPE: Historical Med carvedilol (COREG) 25 mg tablet Take 25 mg by mouth twice daily with meals. Take with food. PRESCRIPTION TYPE: Historical Med cholecalciferol (VITAMIN D-3) 400 unit tab tablet Take 400 Units by mouth daily. PRESCRIPTION TYPE: Historical Med folic acid/multivit-min/lutein (CENTRUM SILVER PO) Take 1 tablet by mouth daily. PRESCRIPTION TYPE: Historical Med hydrALAZINE (APRESOLINE) 10 mg tablet Take 1 tablet by mouth twice daily. Qty: 180 tablet, Refills: 3 PRESCRIPTION TYPE: Normal lactobacillus rhamnosus (GG) (CULTURELLE) 10 billion cell cap Take 1 capsule by mouth daily with breakfast. PRESCRIPTION TYPE: Historical Med melatonin 3 mg tab Take 3 mg by mouth at bedtime daily. PRESCRIPTION TYPE: Historical Med tamsulosin (FLOMAX) 0.4 mg capsule Take 0.4 mg by mouth daily. Do not crush, chew or open capsules. Take 30 minutes following the same meal each day. PRESCRIPTION TYPE: Historical Med valsartan (DIOVAN) 80 mg tablet Take 1 tablet by mouth daily. Qty: 90 tablet, Refills: 3 PRESCRIPTION TYPE: Normal The following medications were removed from your list. This list includes medications discontinued this stay and those removed from your prior med list in our system fluticasone (FLONASE) 50 mcg/actuation nasal spray Pending items needing follow up: as above Signed: Gertrude Espinoza APRN 11/23/2017 cc: Primary Care Physician: Verna Ferro Verified Referring physicians: Verna Ferro MD Additional provider(s): Abdullahi Alicia MD in this encounter Medications at Time of [...] 2017 tablet daily. as of this encounter Progress Notes * Emely Nagy RN - 11/23/2017 4:29 PM CDT Patient discharged to home with all belongings. Discharge instructions, med reconciliation and home wound care instructions given and explained to patient and family both verbally and written. Accompanied by his and son. No complaints of pain or discomfort. Right IJ site remains clean, dry, and intact with no evidence of a hematoma after ambulation. Patient escorted to lobby via Transport. Patient to follow up with [facility] ([facility]) or on-call physician with any additional questions or concerns. All contact numbers provided. Patient and family acceptant of DC instuctions and report understanding to all information. * Emely Nagy, RN - 11/23/2017 10:57 AM CDT Patient arrived on unit via wheelchair accompanied by family. Patient transferred to the bed with assistance. Frailty score equals 4 Assessment completed, refer to flowsheet for details. Orders released, reviewed, and implemented as appropriate. Oriented to surroundings, call light within reach. Plan of care reviewed. Will continue to monitor and assess. in this encounter H&P Notes * Hallie Ayala APRN - 11/22/2017 1:56 PM CDT Formatting of this note may be different from the original. Patient presents for procedure. Please see most recent H/P FROM 11/04/17 below. LADONNA Stone Pager [phone] Office Visit 11/04/2017 [facility] Florentin Martinez MD Cardiology Paroxysmal atrial fibrillation (HCC) +2 more Dx New Patient, Follow Up; Referred by Verna Ferro MD Reason for Visit Progress Notes Florentin Martinez MD (Physician) Cardiology 11/04/17 1500 Signed Date of Service: 11/04/2017 Ashley Schmitt is a 77 y.o. male. HPI Mr. Schmitt is a 77-year-old male, with past medical history notable for ongoing coronary artery disease, status post CABG in 1990, without need for further PCI, stents, or bypass grafting since then, peripheral vascular disease with carotid endarterectomy bilaterally, hypertension, hyperlipidemia, aortic stenosis of unclear degree, permanent atrial fibrillation on systemic anticoagulation with Coumadin, and heart failure with preserved ejection fraction. Additionally, from a malignancy standpoint, he has a history of bladder cancer -with surgical tumor removal historically,, with more recent findings of possible right upper lobe lung mass suspicious for malignancy. He was referred to our thoracic surgeon, Dr. Alicia who is interested in performing a mediastinoscopy with biopsy. He is sent here for further evaluation from a cardiac status prior to undergoing thoracic procedures. Mr. Schmitt reports he really did not have cardiac limitations, or angina, before 08/2017 where he developed some shortness of breath breath with bilateral lower extremity fluid retention. Apparently he was hospitalized and given several days of intravenous Lasix, and a diagnosis of heart failure with preserved ejection fraction. Since then, he has lost 16 pounds of fluid weight and has not regained that weight, and has not needed loop diuretics since then. He currently has NYHA class II-III heart failure symptoms. His weights have been stable around 174-179 pounds. He denies lower extremity edema or abdominal distention. He denies orthopnea or PND. He denies angina/chest pain. He denies syncopal events. He was also hospitalized in 10/2017 with what appears to be hematuria requiring packed red blood cell transfusion. He was taken off aspirin and Coumadin at that time. He remains off these agents currently. With recent findings of lung tumor, bladder cancer treatment has been placed on hold until further clarification of his tumors are known. Social history he denies tobacco, alcohol, or drugs. 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 Family history mother at age 71 due to cancer, father at age 73 due to CAD, sister at age 64 due to stroke. No heart failure, sudden cardiac history. Vitals: 11/04/17 1453 BP: 140/70 Pulse: 75 SpO2: 95% Weight: 81.2 kg (179 lb) Height: 1.778 m (5' 10") Body mass index is 25.68 kg/m. Past Medical History Patient Active Problem List Diagnosis Date Noted (HFpEF) heart failure with preserved ejection fraction [...] Hilar mass 10/28/2017 Hx of CABG 10/28/2017 Lung mass Hypertension CAD (coronary artery disease) Aortic stenosis Arthritis Atrial fibrillation (HCC) GERD (gastroesophageal reflux disease) Hyperlipidemia Mitral valve regurgitation Pulmonary hypertension (HCC) Allergies Allergen Reactions Nitroglycerin HYPOTENSION Amoxicillin RASH Family History Problem Relation Age of Onset Cancer Mother Heart Disease Father Cancer Sister Past Surgical History: Procedure Laterality Date DENTAL SURGERY 1982 HAND SURGERY 1987 CAROTID ENDARDECTOMY 1990 CORONARY ARTERY BYPASS GRAFT 1992 HEART CATHETERIZATION 1992 APPENDECTOMY 01/2014 Social History Social History Marital status: Spouse name: N/A Number of children: N/A Years of education: N/A Social History Main Topics Smoking status: Current Some Day Smoker Types: Cigars Smokeless tobacco: Never Used Alcohol use No Drug use: No Sexual activity: Not Currently Partners: Female Other Topics Concern Not on file Social History Narrative No narrative on file Review of Systems Constitution: Negative. HENT: Negative. Eyes: Negative. Cardiovascular: Negative. Respiratory: Negative. Endocrine: Negative. Hematologic/Lymphatic: Negative. Skin: Negative. Musculoskeletal: Negative. Gastrointestinal: Negative. Genitourinary: Negative. Neurological: Negative. Psychiatric/Behavioral: Negative. Allergic/Immunologic: Negative. All other systems reviewed and are negative. Physical Exam General Appearance:In NAD Skin: warm, dry Digits and Nails: no cyanosis or clubbing Eyes: conjunctivae and lids normal, pupils are equal and round Lips & Oral Mucosa: no pallor or cyanosis Neck Veins: normal JVP 6-8 cm, neck veins are not distended; no HJR Respiratory Effort: breathing comfortably, no respiratory distress Auscultation/Percussion: lungs clear to auscultation, no rales or rhonchi, no wheezing PMI: PMI not enlarged or displaced Cardiac Rhythm: regular rhythm and normal rate Cardiac Auscultation: S1, S2 normal, irreg irreg, no rub, no definite S3 or S4 Murmurs: + systolic harsh murmur Peripheral Circulation: normal peripheral circulation Carotid Arteries: no bruits Radial Arteries: normal symmetric radial pulses Abdominal Aorta: no abdominal aortic bruit Posterior Tibial Pulses: normal symmetric posterior tibial pulses Lower Extremity Edema: no lower extremity edema bilaterally Abdominal Exam: soft, non-tender, bowel sounds normal nonobese, nondistended Liver & Spleen: no organomegaly Gait & Station: walks without assistance Muscle Strength: normal muscle tone Orientation: oriented to time, place and person Affect & Mood: appropriate and sustained affect Language and Memory: patient responsive and seems to comprehend information Neurologic Exam: neurological assessment grossly intact Cardiovascular Studies Echocardiogram from outside hospital by report in 04/2017 demonstrated ejection fraction 55%, RV normal size and function, severe left atrial dilation, calcified mitral valve leaflets without stenosis or regurgitation, mild aortic stenosis, moderate TR, and PA pressure estimated at 50 mmHg. LV size not in report. EKG today demonstrates atrial fibrillation with ventricular rate of 72 bpm and right bundle branch block. Problems Addressed Today Encounter Diagnoses Name Primary? Paroxysmal atrial fibrillation (HCC) Yes Coronary artery disease involving [place] heart, angina presence unspecified , unspecified vessel or lesion type (HFpEF) heart failure with preserved ejection fraction (HCC) Assessment and Plan Mr. Schmitt is a 77-year-old male, past medical history significant for known vascular disease including history of CABG and CEA bilaterally. He also has a diagnosis of heart failure with preserved ejection fraction. He is currently euvolemic. #1 chronic, heart failure with preserved ejection fraction: Would recommend decreasing Diovan to 80 mg daily and increase in Norvasc. Continue Coreg. Can consider Aldactone in the future, however given significant kidney dysfunction at present and unclear baseline we will hold off at this time. Does not need loop diuretics at present. I would like to obtain an echocardiogram prior to any planned thoracic procedures after full review of his outside medical records. He is currently compensated from heart failure standpoint. He does not have angina. He does not have ventricular arrhythmia history. He does not have ICD. There is no indication for ICD. #2 malignancybladder and possibly lung: Currently being worked up by the cardiothoracic surgical team with potential planned mediastinal endoscopy with biopsy. #3 hypertension: Near goal see above for changes. #4 antiplatelet/anticoagulation regimen: #5 atrial arrhythmias: Would recommend resuming aspirin 81 mg daily. I discussed this with CT surgical team who is okay with this in the context of pending biopsy. In summary, Would recommend echocardiogram at [facility], prior to surgical intervention. Additionally we will recommend decreasing Diovan to 80 mg daily and increasing his Norvasc to 10 mg daily. BMP in 1 week. 60 minutes of time spent with patient and family. Greater than 40 minutes of this time spent counseling regarding heart failure with preserved ejection fraction and coronary artery disease. Additionally, 40 minutes of time spent reviewing outside hospital records to further elucidate heart failure related diagnoses. Thank you for allowing me to produce been in the care of Mr. Schmitt. Please call with questions. Florentin Martinez MD Current Medications (including today's revisions) ALPRAZolam (XANAX) 0.5 mg tablet Take 0.5 mg by mouth three times daily as needed for Anxiety. amLODIPine (NORVASC) 10 mg tablet Take 1 tablet by mouth daily. atorvastatin (LIPITOR) 80 mg tablet Take 80 mg by mouth daily. carvedilol (COREG) 25 mg tablet Take 25 mg by mouth twice daily with meals. Take with food. cholecalciferol (VITAMIN D-3) 400 unit tab tablet Take 400 Units by mouth daily. fluticasone (FLONASE) 50 mcg/actuation nasal spray Apply 2 sprays to each nostril as directed daily. Shake bottle gently before using. folic acid/multivit-min/lutein (CENTRUM SILVER PO) Take 1 tablet by mouth daily. lactobacillus rhamnosus (GG) (CULTURELLE) 10 billion [...] tablet by mouth daily. in this encounter Procedure Notes * Aamir Carrillo MD - 11/23/2017 2:48 PM CDT Associated Order(s): CARDIAC CATH REPORT [facility] at [facility] CARDIAC CATHETERIZATION REPORT Page 2 ASHLEY Soto : 1940 #: [id number] [facility] MR #/Billing ID #: [id number] / [id number] DATE: 11/23/2017 AT HOME INDEPENDENT CALL CENTER AGENT: Aamir Carrillo MD DICTATING PROVIDER: Aamir Carrillo MD REFERRING PHYSICIAN: Abdullahi Alicia MD NAME [...] jugular vein was accessed, and ultimately, a 7-Welsh sheath was inserted into the right internal [...] Dr. Alicia over the phone in the cardiac cath lab technologist, and the plan will be to present the patient's case at tumor board for further discussion about optimization for surgery. The patient does have some increased risk for decompensation and heart failure progression. Please refer to my partner's note, Dr. Florentin Martinez, for additional details related to this patient. Aamir Carrillo MD AJS/MedQ /[id number] cc: - Abdullahi Alicia MD in this encounter Plan of Treatment Not on fileas of this encounter Procedures Procedure Name Priority Date/Time Associated Diagnosis Comments PROCEDURE RECORD-SCAN 11/24/2017 Results for this 1:10 [...] heart failure with preserved ejection fraction (HCC) in this encounter Results * PROCEDURE RECORD-SCAN (11/24/2017 1:10 PM) Narrative Performed At Ordered by an unspecified provider. * TELEMETRY STRIPS-SCAN (11/24/2017 1:01 PM) Narrative Performed At Ordered by an unspecified provider. * CARDIAC CATH REPORT (11/23/2017 2:48 PM) Procedure Note Aamir Carrillo MD - 11/23/2017 2:48 PM CDT [facility] at [facility] CARDIAC CATHETERIZATION REPORT Page 2 ASHLEY Soto : 1940 #: [id number] MR #/Billing ID #: [id number] / [id number] DATE: 11/23/2017 AT HOME INDEPENDENT CALL CENTER AGENT: Aamir Carrillo MD DICTATING PROVIDER: Aamir Carrillo MD REFERRING PHYSICIAN: Abdullahi Alicia MD NAME [...] jugular vein was accessed, and ultimately, a 7-Welsh sheath was inserted into the right internal [...] Dr. Alicia over the phone in the cardiac cath lab technologist, and the plan will be to present the patient's case at tumor board for further discussion about optimization for surgery. The patient does have some increased risk for decompensation and heart failure progression. Please refer to my partner's note, Dr. Florentin Martinez, for additional details related to this patient. MD JOHN Sylvester/Dagmar /[id number] cc: - Abdullahi Alicia MD Performing Organization Address City/State/Zipcode Phone Number OTHER OUTSIDE LAB * [facility] SAT-VENOUS POC (11/23/2017 2:30 PM) [facility] SAT-Venous POC 60.2 55 - 71 % MAIN LAB Performing Organization Address City/State/Zipcode Phone Number MAIN LAB [address] [place] [address] * MAGNESIUM (11/23/2017 11:28 AM) Magnesium 1.9 1.6 - 2.6 mg/dL [facility] MAIN [facility] Specimen Blood Performing Organization Address City/[facility]/Zipcode Phone Number MAIN LAB [address] [place] [address] * BASIC METABOLIC PANEL (11/23/2017 11:28 AM) Sodium 134 (L) 137 - 147 MMOL/L [facility] Potassium 5.0 3.5 - 5.1 MMOL/L [facility] Chloride 108 98 - 110 MMOL/L [facility] CO2 19 (L) 21 - 30 MMOL/L [facility] Anion Gap 7 3 - 12 [facility] Glucose 99 70 - 100 MG/DL [facility] Blood Urea Nitrogen 47 (H) 7 - 25 MG/DL [facility] Creatinine 2.16 (H) 0.4 - 1.24 MG/DL [facility] Calcium 9.7 8.5 - 10.6 MG/DL [facility] eGFR Non 30 (L) >60 mL/min [facility] Comment: The eGFR is not validated for use in drug dosing adjustments.Continue to use estimated creatinine clearance per dosing reference text.Please contact the Clinical Pharmacist for questions. eGFR 36 (L) >60 mL/min [facility] Comment: The eGFR is not validated for use in drug dosing adjustments.Continue to use estimated creatinine clearance per dosing reference text.Please contact the Clinical Pharmacist for questions. Specimen Blood Performing Organization Address City/[facility]/Zipcode Phone Number MAIN LAB [address] [place] [address] * CBC (11/23/2017 11:28 AM) White Blood Cells 8.4 4.5 - 11.0 K/UL [facility] RBC 4.67 4.4 - 5.5 M/UL [facility] Hemoglobin 12.5 (L) 13.5 - 16.5 GM/DL [facility] Hematocrit 37.1 (L) 40 - 50 % [facility] MCV 79.3 (L) 80 - 100 FL [facility] MCH 26.7 26 - 34 PG [facility] MCHC 33.6 32.0 - 36.0 G/DL [facility] RDW 18.3 (H) 11 - 15 % [facility] Platelet Count 340 150 - 400 K/UL [facility] MPV 8.8 7 - 11 FL MAIN LAB Specimen Blood Performing Organization Address City/State/Zipcode Phone Number MAIN LAB [address] [place] [address] in this encounter Visit Diagnoses Diagnosis Pulmonary hypertension (HCC) Other chronic pulmonary heart diseases (HFpEF) heart failure with preserved ejection fraction (HCC) Admitting Diagnoses Diagnosis Pulmonary hypertension (HCC) - unknown Other chronic pulmonary heart diseases (HFpEF) heart failure with preserved ejection fraction (HCC) Administered Medications Medication Order MAR Action Action Date Dose Rate Site acetaminophen (TYLENOL) tablet 650 mg 650 mg, Oral, EVERY 4 HOURS PRN, Starting Wed11/23/17 at 1055, Until Wed11/23/17 at 1830, Pain non-opioid: may be used alone or in combination with opioid analgesia, TOTAL ACETAMINOPHEN DOSE NOT TO EXCEED 4GM DAILY acetaminophen (TYLENOL) tablet 650 mg 650 mg, Oral, EVERY 4 HOURS PRN, Starting Wed11/23/17 at 1451, Until Wed11/23/17 at 1830, Pain non-opioid: may be used alone or in combination with opioid analgesia, TOTAL ACETAMINOPHEN DOSE NOT TO EXCEED 4GM DAILY aluminum/magnesium hydroxide (MAALOX) oral suspension 30 mL 30 mL, Oral, EVERY 4 HOURS PRN, Starting Wed11/23/17 at 1055, Until Wed11/23/17 at 1830, Indigestion/Heartburn, Admission/Obs/Extended Recovery aluminum/magnesium hydroxide (MAALOX) oral suspension 30 mL 30 mL, Oral, EVERY 4 HOURS PRN, Starting Wed11/23/17 at 1451, Until Wed11/23/17 at 1830, Indigestion/Heartburn diphenhydrAMINE (BENADRYL) capsule 25 mg 25 mg, Oral, EVERY 4 HOURS PRN, Starting Wed11/23/17 at 1451, Until Wed11/23/17 at 1830, Rash diphenhydrAMINE (BENADRYL) injection 25 mg 25 mg, Intravenous, EVERY 4 HOURS PRN, Starting Wed11/23/17 at 1451, Until Wed11/23/17 at 1830, Rash lidocaine PF 1% (10 mg/mL) injection 0.1-2 mL 0.1-2 mL, Injection, NEEDED, Starting Wed11/23/17 at 1056, Until Wed11/23/17 at 1830, Other..., for peripheral IV insertion, Pre-Op milk of magnesia (CONC) oral suspension 10 mL 10 mL, Oral, EVERY 6 HOURS PRN, Starting Wed11/23/17 at 1055, Until Wed11/23/17 at 1830, Constipation PO, 10 mL CONC=30 mL MOM. ondansetron (ZOFRAN) injection 4 mg 4 mg, Intravenous, EVERY 6 HOURS PRN, Starting Wed11/23/17 at 1451, Until Wed11/23/17 at 1830, Nausea/Vomiting Injectable sodium chloride 0.9 % infusion Given - New 11/23/2017 250 mL 100 mL/ hr 250 mL, 250 mL, Intravenous, NEEDED, Bag 11:41 CDT Starting Wed11/23/17 at 1056, Until Wed11/23/17 at 1830, Other..., eGFR < 60, For Acute Kidney Injury Prophylaxis, if eGFR < 60, administer a bolus of 250 mL 0.9% normal saline; follow with continuous infusion as ordered. - Inpatients: Hold for patients admitted with primary diagnosis of heart failure, EF < 35%, or symptoms of volume overload. - Same Day Admits/Outpatient: Hold for EF < 35% or symptoms of volume overload. temazepam (RESTORIL) capsule 15 mg 15 mg, Oral, AT BEDTIME PRN, Starting Wed11/23/17 at 1055, Until Wed11/23/17 at 1830, Insomnia, Admission/Obs/Extended Recovery in this encounter
--- OUTSIDE RECORDS SUMMARY | 2018-02-04 13:27 | XMS REPORT | Encounter Summary ---
Author Author [facility] Organization [facility] Address Unknown Phone Unavailable Care Team Providers Care Shoe Salesperson Name Role Phone Verna Ferro MD PCP Florentin Martinez MD 3 Reason for Visit * Reason Comments Follow-up Phone Call Encounter Details Date Type Department Care Team Description 11/19/2017 Telephone [facility] Thoracic & Dori Pierce RN Follow-up Phone Call Cardiovascular Surgeons [address] [address] Social History Tobacco Use Types Packs/Day Years [...] encounter Miscellaneous Notes * Telephone Encounter - Dori Pierce, JOSE MANUEL - 11/19/2017 4:[address] Alicia, there was concern on echocardiogram requiring further workup prior to proceeding with mediastinoscopy. Procedure cancelled. Patient and spouse updated on need for right heart catheterization prior to undergoing anesthesia for procedure per Dr. Gonzalez and Dr. Alicia. Questions regarding plan of care answered and patient and spouse verbalize understanding of need for additional testing. Dori Pierce RN in this encounter Plan of Treatment Not on fileas of this encounter Visit Diagnoses Not on filein this encounter
--- OUTSIDE RECORDS SUMMARY | 2018-02-04 13:27 | XMS REPORT | Encounter Summary ---
Author Author [facility] Organization [facility] Address Unknown Phone Unavailable Care Team Providers Care Warehouse Worker Name Role Phone Verna Ferro MD PCP Florentin Martinez MD 3 Reason for Visit * Reason Comments Follow-up Phone Call Encounter Details Date Type Department Care Team Description 11/17/2017 Telephone [facility] & Dori Pierce RN Follow-up Phone Call Cardiovascular Surgeons [address] [address] Social History Tobacco Use Types [...] Miscellaneous Notes * Telephone Encounter - Dori Pierce RN - 11/17/2017 3:06 PM CDT Plan of care reviewed with Dr. Alicia after receiving results from Brain MRI and chest MRI. Plan to proceed with Mediastinoscopy with Dr. Reno on 11/22/17. Plan discussed with patient and spouse. Questions and concerns addressed. Dori Pierce, RN in this encounter Plan of Treatment Not on fileas of this encounter Visit Diagnoses Not on filein this encounter
--- OUTSIDE RECORDS SUMMARY | 2018-02-04 13:27 | XMS REPORT | Encounter Summary ---
Author Author [facility] Organization [facility] Address Unknown Phone Unavailable Care Team Providers Care Regional Sales Engineer Name Role Phone Verna Ferro MD PCP Florentin Martinez MD 3 Encounter Details Date Type Department Care Team Description 11/17/2017 Prep for Case [facility] Veeramachaneni, Abdullahi, Hilar mass (Primary Dx); Cardiovascular Surgeons Mass of upper [facility] [id number] right lung [address] [place] [address] [place] [address] [phone] Social History Tobacco Use Types Packs/Day Years [...] fileas of this encounter Visit Diagnoses Diagnosis Hilar mass - Primary Swelling, mass, or lump in chest Mass of upper lobe of right lung
--- OUTSIDE RECORDS SUMMARY | 2018-02-04 13:27 | XMS REPORT | Encounter Summary ---
Author Author [facility] Organization [facility] Address Unknown Phone Unavailable Care Team Providers Care Structures Engineer Name Role Phone Verna Ferro MD PCP Florentin Martinez MD 3 Encounter Details Date Type Department Care Team Description 11/22/2017 Prep for [facility] CARDIOLOGY Ines Salgado RN Pulmonary hypertension [facility] [id number] (HCC) (Primary Dx); [address] (HFpEF) [place] [address] with preserved ejection [phone] fraction (HCC) Social History Tobacco Use Types Packs/Day Years [...] fileas of this encounter Visit Diagnoses Diagnosis Pulmonary hypertension (HCC) - Primary Other chronic pulmonary heart diseases (HFpEF) heart failure with preserved ejection fraction (HCC)
--- OUTSIDE RECORDS SUMMARY | 2018-02-04 13:27 | XMS REPORT | Encounter Summary ---
Author Author [facility] Organization [facility] Address Unknown Phone Unavailable Care Team Providers Care Compliance Attorney Name Role Phone Verna Ferro MD PCP Florentin Martinez MD 3 Reason for Visit * Auth/Cert Status Reason Specialty Diagnoses / Referred By Referred To Procedures Contact Contact Diagnoses Pulmonary hypertension (HCC) (HFpEF) heart failure with preserved ejection fraction (HCC) unknown Procedures RI RIGHT HEART CATH O2 SATURATION & CARDIAC OUTPUT CATHETERIZATION RIGHT HEART Encounter Details Date Type Department Care Team Description 11/23/2017 [facility] Cardiac Catheterization Cath, Physician Pulmonary hypertension Encounter Laboratory S (HCC) [address] [place] [address] [address] [employer] [place]UC[place] [phone] [address] [place] [address] [phone] Social History Tobacco Use Types Packs/Day Years [...] was noted to be 24 mmHg. The Act cardiac output was 4.1 L/min with a [...] HOURS (8:00 AM - 4:30 PM): Call [phone] and asked to be transferred to your discharge attending physician. - AFTER BUSINESS HOURS (4:30 PM - 8:00 AM, on weekends, or holidays): Call [phone] and ask the lock operator to page the on-call doctor for the discharge attending physician. Discharging attending physician: AAMIR CARRILLO [[id number]] Cardiac Diet Limiting unhealthy fats and cholesterol [...] Return as directed [facility] Provider ABDULLAHI ALICIA [[id number]] Current Discharge Medication List CONTINUE these medications [...] via Transport. Patient to follow up with [facility] Cardiology (MAC) or on-call physician with any additional questions or concerns. All contact numbers provided. Patient and family acceptant of DC instuctions and report understanding to all information. * Emely Nagy RN - 11/23/2017 10:57 AM CDT Patient [...] H/P FROM 11/04/17 below. LADONNA Stone Pager [phone] Office Visit 11/04/2017 [facility] Florentin Martinez [...] tobacco, alcohol, or drugs. [facility] 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 Family history mother at age 71 due [...] fibrillation (HCC) Yes Coronary artery disease involving [place] heart, angina presence unspecified , unspecified vessel [...] biopsy. In summary, Would recommend echocardiogram at [facility], prior to surgical intervention. Additionally we will [...] PM CDT Associated Order(s): CARDIAC CATH REPORT [facility] at [facility] CARDIAC CATHETERIZATION REPORT Page 2 ASHLEY Soto : 1940 #: [id number] [facility] MR #/Billing ID #: [id number] / [id number] DATE: 11/23/2017 DRIVERS LICENSE EXAMINER: Aamir Carrillo MD DICTATING PROVIDER: Aamir Carrillo [...] jugular vein was accessed, and ultimately, a 7-Haitian sheath was inserted into the right internal [...] Dr. Alicia over the phone in the lab aid, and the plan will be to present the patient's case at tumor board for further discussion about optimization for surgery. The patient does have some increased risk for decompensation and heart failure progression. Please refer to my partner's note, Dr. Florentin Martinez, for additional details related to this patient. MD JOHN Sylvester/Dagmar /[id number] cc: - Abdullahi Alicia MD in this [...] Carrillo MD - 11/23/2017 2:48 PM CDT [facility] at [facility] CARDIAC CATHETERIZATION REPORT Page 2 ASHLEY Soto : 1940 #: [id number] MR #/Billing ID #: [id number] / [id number] DATE: 11/23/2017 DRIVERS LICENSE EXAMINER: Aamir Carrillo MD DICTATING PROVIDER: Aamir Carrillo [...] jugular vein was accessed, and ultimately, a 7-Haitian sheath was inserted into the right internal [...] Dr. Alicia over the phone in the lab aid, and the plan will be to present the patient's case at tumor board for further discussion about optimization for surgery. The patient does have some increased risk for decompensation and heart failure progression. Please refer to my partner's note, Dr. Florentin Martinez, for additional details related to this patient. MD JOHN Sylvester/MedJanine /[id number] cc: - Abdullahi Alicia MD Performing Organization Address City/State/Zipcode Phone Number OTHER OUTSIDE LAB * O2HGB SAT-VENOUS POC (11/23/2017 2:30 PM) O2HGB SAT-Venous POC 60.2 55 - 71 % MAIN LAB Performing Organization Address City/State/Zipcode Phone Number MAIN LAB [address] [place] [address] * MAGNESIUM (11/23/2017 11:28 AM) Magnesium 1.9 1.6 - 2.6 mg/dL [facility] MAIN LAB Specimen Blood Performing Organization Address City/[facility]/Zipcode Phone Number MAIN LAB [address] [place] [address] * BASIC METABOLIC PANEL (11/23/2017 11:28 AM) [...] for questions. Specimen Blood Performing Organization Address City/[facility]/Zipcode Phone Number MAIN LAB [address] [place] [address] * CBC (11/23/2017 11:28 AM) White Blood [...] Platelet Count 340 150 - 400 K/UL MAIN LAB MPV 8.8 7 - 11 [place] MAIN LAB Specimen Blood Performing Organization Address City/State/Zipcode Phone Number MAIN LAB [address] [place] [address] in this encounter Visit Diagnoses Diagnosis Lung mass - Primary Swelling, mass, or lump in chest Pulmonary hypertension (HCC) Other chronic pulmonary heart diseases (HFpEF) heart failure with preserved ejection fraction (HCC) Heart failure with preserved ejection fraction (HCC) Admitting [...]
--- OUTSIDE RECORDS SUMMARY | 2018-02-04 13:27 | XMS REPORT | Encounter Summary ---
Author Author [facility] Organization [facility] Address Unknown Phone Unavailable Care Team Providers Care Visitor Services Associate Name Role Phone Verna Ferro MD PCP Florentin Martinez MD 3 Encounter Details Date Type Department Care Team Description 11/22/2017 Pre-Admit XDD CARDIOLOGY Hallie Ayala APRN Pulmonary hypertension Orders Only [address] (HCC) (Primary Dx); [address] [place] [address] preserved ejection [phone] fraction (HCC) Social History Tobacco Use Types [...] - Primary Other chronic pulmonary heart diseases Heart failure with preserved ejection fraction (HCC)
--- OUTSIDE RECORDS SUMMARY | 2018-02-04 13:27 | XMS REPORT | Encounter Summary ---
Author Author [facility] Organization [facility] Address Unknown Phone Unavailable Care Team Providers Care Medical Reception Name Role Phone Verna Ferro MD PCP Florentin Martinez MD 3 Encounter Details Date Type Department Care Team Description 11/16/2017 Ancillary Rad Outpatient, Radiologist Diagnosis unknown Orders [address] [place] [address] Social History Tobacco Use Types Packs/Day Years [...] Treatment Not on fileas of this encounter Results * MRI HEAD EXTERNAL IMAGING (11/08/2017) Narrative Performed At This order has been auto finalized and does not contain a result. in this encounter Visit Diagnoses Diagnosis Diagnosis unknown Other unknown and unspecified cause of morbidity or mortality
--- OUTSIDE RECORDS SUMMARY | 2018-02-04 13:28 | XMS REPORT | Encounter Summary ---
Author Author [facility] Organization [facility] Address Unknown Phone Unavailable Care Team Providers Care Land Developer Name Role Phone Verna Ferro MD PCP Florentin Martinez MD 3 Reason for Referral * Radiology Services Status Reason Specialty Diagnoses / Referred By Referred To Procedures Contact Contact New Request Radiology Diagnoses [place], Lung mass Nydia, Malignant SOFTWARE IMPLEMENTATION SPECIALIST-ORANGE GROWER neoplasm of [address] sites of bladder [address] (HCC) [place], [place] Hilar mass [address] P Phone: STWA [phone] MRI CHEST WO Fax: CONTRAST [phone] Encounter Details Date Type Department Care Team Description 11/08/2017 Orders Only [facility] & Mary Bella RN Hilar mass (Primary Dx); Cardiovascular Surgeons Lung mass; [facility] [id number] Malignant neoplasm of [address] [place] [address] bladder ([facility]) [phone] Social History Tobacco Use Types Packs/Day Years [...] as of this encounter Miscellaneous Notes * Addendum Note - Mary Bella, RN - 11/08/2017 10:01 AM CDT Addended by: MARY BELLA on: 11/08/2017 11:36 AM Modules accepted: Orders in this encounter Plan of Treatment Name Priority Associated Diagnoses Order Schedule BUN Routine Lung mass Expected: 11/08/2017 Malignant neoplasm of (Approximate), Expires: overlapping sites of 11/08/2018 bladder (HCC) Hilar mass CREATININE Routine Lung mass Expected: 11/08/2017 Malignant neoplasm of (Approximate), Expires: overlapping sites of 11/08/2018 bladder (HCC) Hilar mass MRI CHEST WO CONTRAST Routine Lung mass Expected: 11/08/2017 Malignant neoplasm of (Approximate), Expires: overlapping sites of 11/08/2018 bladder (HCC) Hilar mass as of this encounter Visit Diagnoses Diagnosis Hilar mass - Primary Swelling, mass, or lump in chest Lung mass Swelling, mass, or lump in chest Malignant neoplasm of overlapping sites of bladder (HCC) Malignant neoplasm of other specified sites of bladder
--- OUTSIDE RECORDS SUMMARY | 2018-02-04 13:28 | XMS REPORT | Encounter Summary ---
Author Author [facility] Organization [facility] Address Unknown Phone Unavailable Care Team Providers Care Aerospace Control And Warning Systems Name Role Phone Verna Ferro MD PCP Florentin Martinez MD 3 Encounter Details Date Type Department Care Team Description 11/08/2017 Hospital [facility] Encounter Hospital Radiology Main [facility] 2nd fl [address] [place] [address] Social History Tobacco Use Types Packs/Day Years [...] impairment: No 11/04/2017 as of this encounter Medications at Time of Discharge [...] mouth 90 tablet 3 2017 tablet daily. fluticasone (FLONASE) 50 Apply 2 sprays to each 11/23/2017 mcg/actuation nasal spray nostril as directed daily. Shake bottle gently before using. as of this encounter Plan of Treatment Not on fileas of this encounter Procedures Procedure Name Priority Date/Time Associated Diagnosis Comments MRI HEAD EXTERNAL IMAGING Routine 11/08/2017 Diagnosis unknown Results for this 12:00 AM CDT procedure are in the results section. in this encounter Results * MRI HEAD EXTERNAL IMAGING (11/08/2017) Narrative Performed At This order has been auto finalized and does not contain a result. in this encounter Visit Diagnoses Diagnosis Diagnosis unknown Other unknown and unspecified cause of morbidity or mortality
--- OUTSIDE RECORDS SUMMARY | 2018-02-04 13:28 | XMS REPORT | Encounter Summary ---
Author Author [facility] Organization [facility] Address Unknown Phone Unavailable Care Team Providers Care Documentation Liaison Name Role Phone Verna Ferro MD PCP Florentin Martinez MD 3 Reason for Referral * Test Status Reason Specialty Diagnoses / Referred By Referred To Procedures Contact Contact No Auth Needed Cardiology Diagnoses Michelle Cmp Card Echo/Pv Mitral valve Florentin oTrres MD [facility] [place] insufficiency, [address] [place] [address] (HFpEF) heart [address] [place], [place] failure with Phone: [phone] preserved [phone] Phone: ejection fraction (HCC) [phone] P rocedures 2-D + DOPPLER ECHOCARDIOGRAM SD ECHO TTHRC R-T 2D W/WOM-MODE COMPL SPEC&COLR D * Test Status Reason Specialty Diagnoses / Referred By Referred To Procedures Contact Contact No Auth Needed Cardiology Diagnoses Michelle Cmp Card Echo/Pv Mitral valve Florentin Torres MD [facility] [place] insufficiency, [address] [place] [address] (HFpEF) heart [address] [place], [place] failure with Phone: [phone] preserved [phone] Phone: ejection fraction (HCC) [phone] P rocedures 2-D + DOPPLER ECHOCARDIOGRAM SD ECHO TTHRC R-T 2D W/WOM-MODE COMPL SPEC&COLR D Reason for Visit * Test Status Reason Specialty Diagnoses / Referred By Referred To Procedures Contact Contact No Auth Needed Cardiology Diagnoses Gracia Martinez Card Echo/Pv Mitral valve Florentin Torres MD [facility] [place] insufficiency, [address] [place] [address] (HFpEF) heart [address] [place], [place] failure with Phone: [phone] preserved [phone] Phone: ejection fraction (HCC) [phone] P rocedures 2-D + DOPPLER ECHOCARDIOGRAM SD ECHO TTHRC R-T 2D W/WOM-MODE COMPL SPEC&COLR D Encounter Details Date Type Department Care Team Description 11/15/2017 [facility] Cardiology Florentin Martinez MD Encounter [facility] [place] [address] [place] [address] [phone] [place] [address] [phone] Social History Tobacco Use Types Packs/Day Years Used Date Current Some Day Smoker Cigars Smokeless Tobacco: Never Used Alcohol Use Drinks/Week oz/Week Comments No Sex Assigned at Date Recorded Not on file as of this encounter Last Filed Vital Signs Vital Sign Reading Time Taken Blood Pressure 138/76 11/15/2017 2:57 PM CDT Pulse - - Temperature - - Respiratory Rate - - Oxygen Saturation - - Inhaled Oxygen - - Concentration Weight 81.2 kg (179 lb) 11/15/2017 2:57 PM CDT Height 177.8 cm (5' 10") 11/15/2017 2:57 PM CDT Body Mass Index 25.68 11/15/2017 2:57 PM CDT in this encounter Functional Status [...] Procedure Name Priority Date/Time Associated Diagnosis Comments 2-D + DOPPLER Routine 11/15/2017 Mitral valve Results for this ECHOCARDIOGRAM 2:56 PM CDT insufficiency, procedure are in the unspecified etiology results section. (HFpEF) heart failure with preserved ejection fraction (HCC) in this encounter Results * 2-D + DOPPLER ECHOCARDIOGRAM (11/15/2017 2:56 [...] - 34 OTHER OUTSIDE LAB AV index ([place]ai[place]) 0.33 OTHER OUTSIDE LAB LVOT area 3.20 cm2 OTHER OUTSIDE LAB LVOT stroke volume 0.77 cm3 OTHER OUTSIDE LAB Referring Provider Verna Ferro MD OTHER OUTSIDE LAB LV mass 286.67 96 - 200 g OTHER OUTSIDE LAB RWT 0.63 <=0.42 OTHER OUTSIDE LAB Cardiology Ultrasound Siemens [id number] OTHER OUTSIDE LAB Machine Left Ventricle Mass [...] LAB in this encounter Visit Diagnoses Diagnosis Mitral valve insufficiency, unspecified etiology (HFpEF) heart failure with preserved ejection fraction (HCC)
--- OUTSIDE RECORDS SUMMARY | 2018-02-04 13:28 | XMS REPORT | Encounter Summary ---
Author Author [facility] Organization [facility] Address Unknown Phone Unavailable Care Team Providers Care Equipment Superintendent Name Role Phone Verna Ferro MD PCP Florentin Martinez MD 3 Reason for Visit * Reason Comments New Patient Follow Up Encounter Details Date Type Department Care Team Description 11/04/2017 Office Visit [facility] Florentin Martinez MD New Patient; Follow Up [facility] [facility] [address] [place] [address] [place] [address] [phone] Social History Tobacco Use Types Packs/Day Years Used Date Current Some Day Smoker Cigars Smokeless Tobacco: Never Used Alcohol Use Drinks/Week oz/Week Comments No Sex Assigned at Date Recorded Not on file as of this encounter Last Filed Vital Signs Vital Sign Reading Time Taken Blood Pressure 140/70 11/04/2017 2:53 PM CDT Pulse 75 11/04/2017 2:53 PM CDT Temperature - - Respiratory Rate - - Oxygen Saturation 95% 11/04/2017 2:53 PM CDT Inhaled Oxygen - - Concentration Weight 81.2 kg (179 lb) 11/04/2017 2:53 PM CDT Height 177.8 cm (5' 10") 11/04/2017 2:53 PM CDT Body Mass Index 25.68 11/04/2017 2:53 PM CDT in this encounter Functional Status [...] impairment: No 11/04/2017 as of this encounter Instructions * Patient Instructions - Florentin Martinez MD - 11/04/2017 3:00 PM CDT Thank you for coming to [facility]. Your instructions today: 1. Medications: Decrease Diovan to 80 mg daily. Increase Norvasc to 10 mg daily. ECG today. 2. Labs: BMP in 1 week 3. Follow-up with your primary machine skiver. 4. Call for any worsening symptoms of shortness of breath, swelling, sudden weight gain, lightheadedness, heart racing or chest pain. 5. Remember to weigh yourself daily and call for weight increase greater than 3 pounds overnight or 5 pounds in one week. 6. Taking your medications as directed helps keep you out of the hospital: please call if you have concerns about the side effects, cost or refills. 7. Follow low sodium dietary restriction- 2000 mg daily. Florentin Martinez MD [facility] [phone] When calling, please ask to speak with a heart failure triage nurse. in this encounter Progress Notes * Florentin Martinez MD - 11/04/2017 3:00 PM CDT Formatting of this note may be different from the original. Date of Service: 11/04/2017 Ruslan Schmitt is a 77 y.o. male. [...] tobacco, alcohol, or drugs. [facility]. 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 Family history mother at age 71 due [...] fibrillation (HCC) Yes Coronary artery disease involving [place] heart, angina presence unspecified , unspecified vessel [...] biopsy. In summary, Would recommend echocardiogram at [facility], prior to surgical intervention. Additionally we [...] daily. in this encounter Plan of Treatment Name Priority Associated Diagnoses Order Schedule ECG 12-LEAD Routine Paroxysmal atrial Ordered: 11/04/2017 fibrillation (HCC) Coronary artery disease involving [place] heart, angina presence unspecified, unspecified vessel or lesion type BASIC METABOLIC PANEL Routine Paroxysmal atrial Expected: 11/11/2017 fibrillation (HCC) (Approximate), Expires: Coronary artery disease 11/04/2018 involving [place] heart, angina presence unspecified, unspecified vessel or lesion type as of this encounter Procedures Procedure Name Priority Date/Time Associated Diagnosis Comments ECG-SCAN 11/05/2017 Results for this 10:40 PM CDT procedure are in the results section. in this encounter Results * ECG-SCAN (11/05/2017 10:40 PM) Narrative Performed At Ordered by an unspecified provider. in this encounter Visit Diagnoses Diagnosis Paroxysmal atrial fibrillation (HCC) - Primary Atrial fibrillation Coronary artery disease involving [place] heart, angina presence unspecified, unspecified vessel or lesion type (HFpEF) heart failure with preserved ejection fraction (HCC)
--- OUTSIDE RECORDS SUMMARY | 2018-02-04 13:28 | XMS REPORT | Encounter Summary ---
Author Author [facility] Organization [facility] Address Unknown Phone Unavailable Care Team Providers Care Coordinate Measuring Machine Technician Name Role Phone Verna Ferro MD PCP Florentin Martinez MD 3 Reason for Referral * Test Status Reason Specialty Diagnoses / Referred By Referred To Procedures Contact Contact No Auth Needed Cardiology Diagnoses Gracia Martinez Card Echo/Pv Mitral valve Florentin Torres MD [facility] [place] insufficiency, [address] [place] [address] (HFpEF) heart [address] [place], [place] failure with Phone: [phone] preserved [phone] Phone: ejection fraction (HCC) [phone] P rocedures 2-D + DOPPLER ECHOCARDIOGRAM MO ECHO TTHRC R-T 2D W/WOM-MODE COMPL SPEC&COLR D Encounter Details Date Type Department Care Team Description 11/08/2017 Telephone [facility] Ines Salgado, JOSE MANUEL [facility] [place] [id number] Social History Tobacco Use Types Packs/Day Years [...] encounter Miscellaneous Notes * Addendum Note - Ines Salgado RN - 11/19/2017 3:11 PM CDT Addended by: INES SALGADO on: 11/19/2017 03:11 PM Modules accepted: Orders * Telephone Encounter - Ines Salgado RN - 11/19/2017 3:07 PM CDT Formatting of this note may be different from the original. RE: F/u question on Norvasc Message Contents Florentin Martinez MD Lang, Katherine, RN Can you do 10 mg hydralazine PO BID then? This medicine doesn't affect kidney function and has lots of room for titration (you can tell them this)..... Thanks Kameron Previous Messages ----- Message ----- From: Ines Salgado RN Sent: 11/08/2017 3:11 PM To: Florentin Martinez MD Subject: F/u question on Norvasc On 11/04 you increased pt's Norvasc to 10 mg daily. In talking to pt and spouse today about ECHO, they told him they discovered when they got home that he's been taking Norvasc 10mg for several months now. Pt's primary hardware assembler increased this in August. Do you want to make any other rx changes? Called patient to review results of ECHO and Dr. Martinez's recommendation to start hydralazine. Reviewed with patient and spouse, Cheryle. They wrote down instructions and will start Hydralazine later next week after patient has his procedure 11/22. Patient and spouse had some f/u questions about other tests completed locally and future treatment options. Message sent to Dori Pierce RN for further f/u. Patient has f/u scheduled with his primary hardware assembler in April. * Addendum Note - Ines Salgado RN - 11/08/2017 2:24 PM CDT Addended by: INES SALGADO on: 11/08/2017 02:24 PM Modules accepted: Orders * Telephone Encounter - Ines Salgado RN - 11/08/2017 2:14 PM CDT Called patient and reviewed with patient and spouse. They are agreeable to come back up for ECHO in the next week or two. They would like to review with their son, Bobby, prior to scheduling. Also verbalized understanding regarding restarting ASA. No further questions at this time. * Telephone Encounter - Ines Salgado RN - 11/08/2017 1:57 PM CDT ----- Message from Florentin Martinez MD sent at 11/08/2017 6:28 AM CDT ----- HI Ines, After reviewing his full outside records, I would like to obtain an ECHO at [facility] PRIOR to him undergoing mediastinal biopsy - I also discussed this with Dr. Gómez Who also desires ECHO before biopsy. Also, please have him resume his ASA 81 mg daily (no prob per CT surgery in context of pending biopsy). Please let me know when he has ECHO and I can review. Otherwise no need for ongoing HF clinic F/U unless he or his PCP continue to desire. Thanks! Kameron in this encounter Plan of Treatment Not on fileas of this encounter Results * 2-D + DOPPLER [...] - 34 OTHER OUTSIDE LAB AV index ([place]) 0.33 OTHER OUTSIDE LAB LVOT area 3.20 cm2 OTHER OUTSIDE LAB LVOT stroke volume 0.77 cm3 OTHER OUTSIDE LAB Referring Provider Verna Ferro MD OTHER OUTSIDE LAB LV mass 286.67 96 - 200 g OTHER OUTSIDE LAB RWT 0.63 <=0.42 OTHER OUTSIDE LAB Cardiology Ultrasound Siemens [id number] OTHER OUTSIDE LAB Machine Left Ventricle Mass [...] Diagnoses Diagnosis Mitral valve insufficiency, unspecified etiology - Primary (HFpEF) heart failure with preserved ejection fraction (HCC)
--- NOTE | 2018-02-04 13:55 | ED GU-Male ---
General Stated Complaint: TROUBLE URINATING Source: patient, other (Dr. Lloyd) Exam Limitations: no limitations History of Present Illness Date Seen by Provider: Feb 04, 2018 Time Seen by Provider: 13:25 Initial Comments This 77-year-old gentleman presents to the emergency room as directed by Dr. Lloyd from [facility] for reasons of urinary obstruction. He is presently receiving chemotherapy and radiation for treatment of lung and bladder cancer. He has been unable to urinate for more than 24 hours. He feels bloated and full but has been unable to produce anything more than a small dribble of urine. He had a similar problem in June when he was hospitalized and he required catheterization followed by frequent straight catheterizations by home health. He denies any fever or dysuria. His primary oncologist is Dr. Ballard. Allergies and Home Medications Allergies Coded Allergies: amoxicillin (Verified Allergy, Intermediate, HIVES, 09/13/17) nitroglycerin (Verified Allergy, Mild, DECREASED BP, 09/13/17) Home Medications Alprazolam 0.5 Mg Tablet, 0.5 MG PO BID PRN for ANXIETY, (Reported) Alprazolam 0.5 Mg Tablet, 0.5 MG PO HS, (Reported) Amlodipine Besylate 10 Mg Tablet, 5 MG PO DAILY, (Reported) TAKES 1/2 OF A (10 MG) TABLET Atorvastatin Calcium 80 Mg Tablet, 80 MG PO HS, (Reported) Carvedilol 25 Mg Tablet, 25 MG PO BID, (Reported) Cholecalciferol (Vitamin D3) 400 Unit Capsule, 400 UNIT PO DAILY, (Reported) Fenofibrate Nanocrystallized 145 Mg Tablet, 145 MG PO DAILY, (Reported) Lactobacillus Rhamnosus GG 1 Each Capsule, 1 CAP PO DAILY, (Reported) Melatonin/Pyridoxine HCl (B6) 1 Each Tablet, 9 MG PO HS, (Reported) TAKES 3 (3 MG) TABLETS Menthol/Zinc Oxide 113 Gm Powder, TP PRN PRN for RASH, (Reported) Multivit-Min/FA/Lycopene/Lut 1 Each Tablet, 1 TAB PO DAILY, (Reported) Tamsulosin HCl 0.4 Mg Cap.er.24h, 0.4 MG PO DAILY, (Reported) Valsartan 320 Mg Tablet, 160 MG PO DAILY, (Reported) TAKES 1/2 OF A (320 MG) TABLET Warfarin Sodium 5 Mg Tablet, 5 MG PO SuMoWeFrSa COUMADIN ON HOLD UNTIL CLEARED BY DR. TALBERT TO RESTART Prescribed by: CAREY CHOWDHURY on 09/22/17 08 Warfarin Sodium 5 Mg Tablet, 2.5 MG PO TuTh COUMADIN ON HOLD UNTIL CLEARED BY DR. TALBERT TO RESTART Prescribed by: CAREY CHOWDHURY on 09/22/17 0831 Patient Home Medication List Home Medication List Reviewed: Yes Review of Systems Review of Systems Constitutional: no symptoms reported EENTM: no symptoms reported Respiratory: no symptoms reported Cardiovascular: no symptoms reported Gastrointestinal: no symptoms reported Genitourinary: see HPI Musculoskeletal: no symptoms reported Skin: no symptoms reported Psychiatric/Neurological: No Symptoms Reported Endocrine: No Symptoms Reported Hematologic/Lymphatic: No Symptoms Reported Past [id number]-Gaqbli-Pxodjr Hx Past Med/Social Hx: Reviewed and Corrections made Patient Social History Type Used: Cigars Recent Hopitalizations: No Immunizations Up To Date Tetanus Booster (TDap): Unknown Date of Pneumonia Vaccine: Jan 19, 2012 Date of Influenza Vaccine: Feb 07, 2014 Seasonal Allergies Seasonal Allergies: No Past Medical History Surgeries: Yes (ANEURYSM REPAIR,CABG,TURBT, bilat carotid endart.) Appendectomy, CABG Respiratory: No Cardiac: Yes (leaky valve, bypass) Coronary Artery Disease, Hypertension, Valvular Heart Disease Neurological: Yes (neuropathy in both legs) Reproductive Disorders: No Sexually Transmitted Disease: No Genitourinary: Yes (bladder tumor removed 2-3 yrs ago) Renal Failure Gastrointestinal: Yes Hiatal Hernia Musculoskeletal: Yes (arthritis) Arthritis Endocrine: No HEENT: Yes Hearing Impairment: Hard of Hearing Cancer: Yes Bladder, Lung Did You Recieve Any Treatments: Yes What Type of Treatment Did You: Chemotherapy, Radiation, Surgical Intervention Psychosocial: No Integumentary: Yes (current rash ) Recent Skin Changes Blood Disorders: No Family Medical History Reviewed Nursing Family Hx Ca 19 MOTHER G8 SISTER Cancer of mouth 19 MOTHER Cardiovascular disease 19 FATHER Physical Exam Vital Signs Vital Signs - First Documented 02/04/18 13:23 Temp 99.8 Pulse 89 Resp 18 B/P (MAP) 146/81 (102) Pulse Ox 98 O2 Delivery Room Air Capillary Refill : Height, Weight, BMI Height: 5'11.00" Weight: 174lbs. 0.0oz. 78.871125ld; 24.3 BMI Method: General Appearance: WD/WN, no apparent distress HEENT: PERRL/EOMI, normal ENT inspection Neck: normal inspection Cardiovascular: regular rate, rhythm, no edema, systolic murmur Respiratory: lungs clear, normal breath sounds, no respiratory distress, no accessory muscle use Gastrointestinal: normal bowel sounds, soft, distended, tenderness (general lower abdominal discomfort) Extremities: normal inspection, no pedal edema Neurologic/Psychiatric: ingot supervisor II-XII nml as tested, no motor/sensory deficits, alert, normal mood/affect, oriented x 3 Skin: normal color, warm/dry Progress/Results/Core Measures Suspected Sepsis SIRS Temperature: Pulse: Respiratory Rate: Blood Pressure / Mean: Results/Orders Lab Results Laboratory Tests Test 02/04/18 13:50 Range/Units Urine Color YELLOW Urine Clarity CLEAR Urine pH 6.5 5-9 Urine Specific Ona 1.005 L 1.016-1.022 Urine Protein NEGATIVE NEGATIVE Urine Glucose (UA) NEGATIVE NEGATIVE Urine Ketones NEGATIVE NEGATIVE Urine Nitrite NEGATIVE NEGATIVE Urine Bilirubin NEGATIVE NEGATIVE Urine Urobilinogen NORMAL NORMAL MG/DL Urine Leukocyte Esterase NEGATIVE NEGATIVE Urine RBC (Auto) NEGATIVE NEGATIVE Urine RBC NONE /HPF Urine WBC NONE /HPF Urine Squamous Epithelial Cells NONE /HPF Urine Crystals NONE /LPF Urine Bacteria NEGATIVE /HPF Urine Casts NONE /LPF Urine Mucus NEGATIVE /LPF Urine Culture Indicated NO My Orders Orders - ELENI CHIANG MD Ua Culture If Indicated (02/04/18 13:34) Ramirez Cath (02/04/18 13:34) Vital Signs/I&O 02/04/18 13:23 Temp 99.8 Pulse 89 Resp 18 B/P (MAP) 146/81 (102) Pulse Ox 98 O2 Delivery Room Air Capillary Refill : Progress Note : Progress Note Ramirez catheter was placed and yielded more than 1000 mL of urine. Patient was discharged with a Ramirez catheter and leg bag with instructions to follow-up during his radiation treatment on Wednesday. Departure Impression Primary Impression: Urinary obstruction Additional Impression: Bladder cancer Qualified Codes: C67.9 - Malignant neoplasm of bladder, unspecified Disposition: HOME, SELF-CARE Condition: Improved Departure-Patient Inst. Decision time for Depature: 14:33 Referrals: CAREY CHOWDHURY MD (PCP/Family) Primary Care Physician Patient Instructions: How to Care for Your Ramirez Catheter, Male Add. Discharge Instructions: Keep your Ramirez catheter in until instructed otherwise. Confer with the Cancer Center staff on Wednesday before your radiation treatment to determine if the catheter should stay in during radiation or be removed. Follow-up with Dr. Talbert early next week. Return to the emergency room if you have any further problems or concerns. Keep your urine bag below the level of your bladder to prevent backwash. Copy Copies To 1: CAREY CHOWDHURY MD Copies To 2: LAVERNE SUNSHINE JOSHUA T MD Feb 04, 2018 13:55
[2018-02-04 14:01] LABS: BILIRUBIN,URINE NEGATIVE (NEGATIVE); CLARITY,URINE CLEAR; COLOR,URINE YELLOW; GLUCOSE, URINE (UA) NEGATIVE (NEGATIVE); KETONES,URINE NEGATIVE (NEGATIVE); LEUKOCYTE ESTERASE ,URINE NEGATIVE (NEGATIVE); NITRITE,URINE NEGATIVE (NEGATIVE); PH,URINE 6.5 (5-9); PROTEIN,URINE NEGATIVE (NEGATIVE); UROBILINOGEN,URINE NORMAL (NORMAL)
--- OUTSIDE RECORDS SUMMARY | 2018-02-04 14:10 | XMS REPORT | Continuity of Care Document ---
Author Author [facility] Organization [facility] Address Unknown Phone Unavailable Allergies Active Description Code Type Severity Reaction Onset Reported/Identified Relationship to Patient Clinical Status Yes amoxicillin [id number] Drug Allergy Moderate HIVES 09/13/2017 Yes nitroglycerin [id number] Drug Allergy Mild DECREASED BP 09/13/2017 Medications There is no data. Problems Date Dx Coded Attending Type Code Diagnosis Diagnosed By 04/29/2011 Ot V58.61 04/29/2011 Ot V58.69 04/29/2011 Ot V58.83 01/21/2014 LUCIANA MACKENZIE, CAERY Torres Ot 038.9 SEPTICEMIA NOS 01/21/2014 CAREY [...] Ot V45.81 AORTOCORONARY BYPASS 01/01/2015 ANTONY PINEDA EQUIPMENT SERVICE ENGINEER Ot 719.06 01/04/2015 ANTONY PINEDA EQUIPMENT SERVICE ENGINEER Ot 719.06 01/04/2015 ANTONY PINEDA EQUIPMENT SERVICE ENGINEER Ot 719.06 01/17/2015 ANTONY PINEDA EQUIPMENT SERVICE ENGINEER Ot 719.06 01/24/2015 ANTONY PINEDA EQUIPMENT SERVICE ENGINEER Ot 719.06 03/05/2015 Ot J18.9 03/14/2015 Ot [...] ABDOMINAL PAIN, UNSPECIFIED SITE 09/13/2017 ANTONY PINEDA EQUIPMENT SERVICE ENGINEER Ot 719.06 JOINT EFFUSION-L/LEG 09/13/2017 Ot J18.9 [...] NICKY 09/15/2017 CAREY CHOWDHURY MD Ot Z79.01 HALF-WAY (CURRENT) USE OF ANTICOAGULANT 09/16/2017 CAREY CHOWDHURY [...] MD Ot I25.10 ATHSCL HEART DISEASE OF [place] CORONARY 09/16/2017 CAREY CHOWDHURY MD Ot I48.0 [...] O 09/16/2017 CAREY CHOWDHURY MD Ot Z79.01 HALF-WAY (CURRENT) USE OF ANTICOAGULANT 09/16/2017 CAREY CHOWDHURY [...] MD Ot I25.10 ATHSCL HEART DISEASE OF [place] CORONARY 09/17/2017 CAREY CHOWDHURY MD Ot I48.0 [...] MD Ot N13.30 UNSPECIFIED HYDRONEPHROSIS 09/17/2017 CAREY CHOWDHURY MD Ot N17.9 ACUTE KIDNEY FAILURE, UNSPECIFIED 09/17/2017 CAREY CHOWDHURY MD Ot N40.0 BENIGN PROSTATIC HYPERPLASIA WITHOUT LOW 09/17/2017 CAREY CHOWDHURY MD Ot R31.0 GROSS HEMATURIA 09/17/2017 CAREY CHOWDHURY MD Ot R33.9 RETENTION OF URINE, UNSPECIFIED 09/17/2017 CAREY CHOWDHURY MD Ot Z77.29 CONTACT W AND (SUSPECTED ) EXPOSURE TO O 09/17/2017 CAREY CHOWDHURY MD Ot Z79.01 HALF-WAY (CURRENT) USE OF ANTICOAGULANT 09/17/2017 CAREY CHOWDHURY [...] MD Ot I25.10 ATHSCL HEART DISEASE OF [place] CORONARY 09/18/2017 CAREY CHOWDHURY MD Ot I48.0 [...] O 09/18/2017 CAREY CHOWDHURY MD Ot Z79.01 SUBSTITUTE CROSSING GUARD (CURRENT) USE OF ANTICOAGULANT 09/18/2017 CAREY CHOWDHURY [...] MD Ot I25.10 ATHSCL HEART DISEASE OF [place] CORONARY 09/19/2017 CAREY CHOWDHURY MD Ot I48.0 [...] O 09/19/2017 CAREY CHOWDHURY MD Ot Z79.01 HALF-WAY (CURRENT) USE OF ANTICOAGULANT 09/19/2017 CAREY CHOWDHURY [...] MD Ot I25.10 ATHSCL HEART DISEASE OF [place] CORONARY 09/20/2017 CAREY CHOWDHURY MD Ot I48.0 [...] O 09/20/2017 CAREY CHOWDHURY MD Ot Z79.01 SUBSTITUTE CROSSING GUARD (CURRENT) USE OF ANTICOAGULANT 09/20/2017 CAREY CHOWDHURY [...] MD Ot I25.10 ATHSCL HEART DISEASE OF [place] CORONARY 09/21/2017 CAREY CHOWDHURY MD Ot I48.0 [...] O 09/21/2017 CAREY CHOWDHURY MD Ot Z79.01 SUBSTITUTE CROSSING GUARD (CURRENT) USE OF ANTICOAGULANT 09/21/2017 CAREY CHOWDHURY [...] MD Ot I25.10 ATHSCL HEART DISEASE OF [place] CORONARY 09/22/2017 CAREY CHOWDHURY MD Ot I48.0 [...] O 09/22/2017 CAREY CHOWDHURY MD Ot Z79.01 SUBSTITUTE CROSSING GUARD (CURRENT) USE OF ANTICOAGULANT 09/22/2017 CAREY CHOWDHURY MD Ot Z95.1 PRESENCE OF AORTOCORONARY BYPASS GRAFT 09/22/2017 CAREY CHOWDHURY MD Ot D49.1 NEOPLASM OF UNSPECIFIED BEHAVIOR OF RESP 09/22/2017 LUCIANA MD, CAREY A Ot 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 09/22/2017 CAREY CHOWDHURY MD Ot D50.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 09/22/2017 CAREY COHWDHURY MD Ot F17.290 NICOTINE DEPENDENCE, OTHER TOBACCO PRODU 09/22/2017 CAREY CHOWDHURY MD Ot G62.9 POLYNEUROPATHY, UNSPECIFIED 09/22/2017 CAREY CHOWDHURY MD Ot I10 ESSENTIAL (PRIMARY) HYPERTENSION 09/22/2017 CAREY CHOWDHURY MD Ot I25.10 ATHSCL HEART DISEASE OF [place] CORONARY 09/22/2017 CAREY CHOWDHURY MD Ot I48.0 [...] O 09/22/2017 CAREY CHOWDHURY MD Ot Z79.01 SUBSTITUTE CROSSING GUARD (CURRENT) USE OF ANTICOAGULANT 09/22/2017 CAREY CHOWDHURY [...] MD Ot I25.10 ATHSCL HEART DISEASE OF [place] CORONARY 09/23/2017 CAREY CHOWDHURY MD Ot I48.0 [...] O 09/23/2017 CAREY CHOWDHURY MD Ot Z79.01 HALF-WAY (CURRENT) USE OF ANTICOAGULANT 09/23/2017 CAREY CHOWDHURY [...] (PRIMARY) HYPERTENSION 09/23/2017 CAREY CHOWDHURY MD Ot I12.9 HYPERTENSIVE CHRONIC KIDNEY DISEASE W ST 09/23/2017 CAREY CHOWDHURY MD Ot I25.10 ATHSCL HEART DISEASE OF [place] CORONARY 09/23/2017 CAREY CHOWDHURY MD Ot I48.0 PAROXYSMAL ATRIAL FIBRILLATION 09/23/2017 CAREY CHOWDHURY MD Ot I65.29 OCCLUSION AND STENOSIS OF UNSPECIFIED CA 09/23/2017 CAREY CHOWDHURY MD Ot I73.9 PERIPHERAL VASCULAR DISEASE, UNSPECIFIED 09/23/2017 CAREY CHOWDHURY MD Ot K44.9 DIAPHRAGMATIC HERNIA WITHOUT OBSTRUCTION 09/23/2017 CAREY CHOWDHURY MD Ot K57.90 DVRTCLOS OF INTEST, PART UNSP, W/O PERF 09/23/2017 CAREY CHOWDHURY MD Ot K59.00 CONSTIPATION, UNSPECIFIED 09/23/2017 CAREY CHOWDHURY MD Ot K80.20 CALCULUS OF GALLBLADDER W/O CHOLECYSTITI 09/23/2017 CAREY CHOWDHURY MD Ot N13.30 UNSPECIFIED HYDRONEPHROSIS 09/23/2017 CAREY CHOWDHURY MD Ot N17.9 ACUTE KIDNEY FAILURE, UNSPECIFIED 09/23/2017 CAREY CHOWDHURY MD Ot N18.4 CHRONIC KIDNEY DISEASE, STAGE 4 (SEVERE) 09/23/2017 CAREY CHOWDHURY MD Ot N40.0 BENIGN PROSTATIC HYPERPLASIA WITHOUT LOW 09/23/2017 CAREY CHOWDHURY MD Ot R31.0 GROSS HEMATURIA 09/23/2017 CAREY CHOWDHURY MD Ot R33.9 RETENTION OF URINE, UNSPECIFIED 09/23/2017 CAREY CHOWDHURY MD Ot R91.8 OTHER NONSPECIFIC ABNORMAL FINDING OF NICKY 09/23/2017 CAREY CHOWDHURY MD Ot Z77.29 CONTACT W AND (SUSPECTED ) EXPOSURE TO O 09/23/2017 CAREY CHOWDHURY MD Ot Z79.01 SUBSTITUTE CROSSING GUARD (CURRENT) USE OF ANTICOAGULANT 09/23/2017 CAREY CHOWDHURY MD Ot Z95.1 PRESENCE OF AORTOCORONARY BYPASS GRAFT 09/29/2017 CAREY CHOWDHURY MD Ot 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 09/29/2017 CAREY CHOWDHURY MD Ot R91.8 OTHER NONSPECIFIC ABNORMAL FINDING OF NICKY 09/30/2017 Ot 429.3 CARDIOMEGALY 09/30/2017 Ot 486 PNEUMONIA, ORGANISM NOS 09/30/2017 Ot 786.2 COUGH 09/30/2017 CAREY CHOWDHURY MD Ot 458.9 HYPOTENSION NOS 09/30/2017 CAREY CHOWDHURY MD Ot 789.00 ABDOMINAL PAIN, UNSPECIFIED SITE 09/30/2017 ANTONY PINEDA EQUIPMENT SERVICE ENGINEER Ot 719.06 JOINT EFFUSION-L/LEG 09/30/2017 Ot J18.9 PNEUMONIA, UNSPECIFIED ORGANISM 09/30/2017 CAREY CHOWDHURY MD Ot M54.5 LOW BACK PAIN 09/30/2017 LANRE TALBERT MD Ot N40.0 BENIGN PROSTATIC HYPERPLASIA WITHOUT LOW 09/30/2017 LANRE TALBERT MD Ot R31.9 HEMATURIA, UNSPECIFIED 09/30/2017 CAREY CHOWDHURY MD Ot 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 09/30/2017 CAREY CHOWDHURY MD Ot R91.8 OTHER NONSPECIFIC ABNORMAL FINDING OF NICKY 10/05/2017 GODFREY WILL DO Ot 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 10/05/2017 GODFREY WILL DO Ot R91.8 OTHER NONSPECIFIC ABNORMAL FINDING OF NICKY 10/05/2017 GODFREY WILL DO Ot Z01.818 ENCOUNTER FOR OTHER PREPROCEDURAL EXAMIN 10/06/2017 GODFREY WILL DO Ot E78.5 HYPERLIPIDEMIA, UNSPECIFIED 10/06/2017 GODFREY WILL DO Ot G62.9 POLYNEUROPATHY, UNSPECIFIED 10/06/2017 GODFREY WILL DO Ot I10 ESSENTIAL (PRIMARY) HYPERTENSION 10/06/2017 GODFREY WILL DO Ot I27.20 PULMONARY HYPERTENSION, UNSPECIFIED 10/06/2017 GODFREY WILL DO Ot I48.0 PAROXYSMAL ATRIAL FIBRILLATION 10/06/2017 GODFREY WILL DO Ot R91.8 OTHER NONSPECIFIC ABNORMAL FINDING OF NICKY 10/06/2017 GODFREY WILL DO Ot Z79.899 OTHER SUBSTITUTE CROSSING GUARD (CURRENT) DRUG THERAPY 10/06/2017 GODFREY WILL DO Ot Z85.51 PERSONAL HISTORY OF MALIGNANT NEOPLASM O 10/06/2017 GODFREY WILL DO Ot Z95.1 PRESENCE OF AORTOCORONARY BYPASS GRAFT 10/06/2017 GODFREY WILL DO Ot 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 10/06/2017 GODFREY WILL DO Ot R91.8 OTHER NONSPECIFIC ABNORMAL FINDING OF NICKY 10/06/2017 GODFREY WILL DO Ot Z01.818 ENCOUNTER FOR OTHER PREPROCEDURAL EXAMIN 10/08/2017 GODFREY WILL DO Ot E78.5 HYPERLIPIDEMIA, UNSPECIFIED 10/08/2017 GODFREY WILL DO Ot G62.9 POLYNEUROPATHY, UNSPECIFIED 10/08/2017 GODFREY WILL DO Ot I10 ESSENTIAL (PRIMARY) HYPERTENSION 10/08/2017 GODFREY WILL DO Ot I27.20 PULMONARY HYPERTENSION, UNSPECIFIED 10/08/2017 GODFREY WILL DO Ot I48.0 PAROXYSMAL ATRIAL FIBRILLATION 10/08/2017 GODFREY WILL DO Ot R91.8 OTHER NONSPECIFIC ABNORMAL FINDING OF NICKY 10/08/2017 GODFREY WILL DO Ot Z79.899 OTHER HALF-WAY (CURRENT) DRUG THERAPY 10/08/2017 GODFREY WILL DO Ot Z85.51 PERSONAL HISTORY OF MALIGNANT NEOPLASM O 10/08/2017 GODFREY WILL DO Ot Z95.1 PRESENCE OF AORTOCORONARY BYPASS GRAFT 10/12/2017 GODFREY WILL DO Ot 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 10/12/2017 GODFREY WILL DO Ot R91.8 OTHER NONSPECIFIC ABNORMAL FINDING OF NICKY 10/12/2017 GODFREY WILL DO Ot Z01.818 ENCOUNTER FOR OTHER PREPROCEDURAL EXAMIN 10/22/2017 LUCIANA MACKENZIE, CAREY Torres Ot 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 10/22/2017 CAREY CHOWDHURY MD Ot R91.8 OTHER NONSPECIFIC ABNORMAL FINDING OF NICKY 10/29/2017 GODFREY WILL DO Ot R91.8 OTHER NONSPECIFIC ABNORMAL FINDING OF NICKY 10/29/2017 LAVERNE SUNSHINE Ot C67.9 MALIGNANT NEOPLASM OF BLADDER, UNSPECIFI 11/03/2017 LUCIANA MACKENZIE, CAREY Torres Ot 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 11/03/2017 CAREY CHOWDHURY MD Ot R91.8 OTHER NONSPECIFIC ABNORMAL FINDING OF NICKY 11/03/2017 Ot 429.3 CARDIOMEGALY 11/03/2017 Ot 486 PNEUMONIA, ORGANISM NOS 11/03/2017 Ot 786.2 COUGH 11/03/2017 LUCIANA MACKENZIE, CAREY Torres Ot 458.9 HYPOTENSION NOS 11/03/2017 LUCIANA MACKENZIE, CAREY Torres Ot 789.00 ABDOMINAL PAIN, UNSPECIFIED SITE 11/03/2017 ANTONY PINEDA EQUIPMENT SERVICE ENGINEER Ot 719.06 JOINT EFFUSION-L/LEG 11/03/2017 Ot J18.9 PNEUMONIA, UNSPECIFIED ORGANISM 11/03/2017 CAREY CHOWDHURY MD Ot M54.5 LOW BACK PAIN 11/03/2017 GALI MACKENZIE, LANRE Torres Ot N40.0 BENIGN PROSTATIC HYPERPLASIA WITHOUT LOW 11/03/2017 GALI MACKENZIE, LANRE Torres Ot R31.9 HEMATURIA, UNSPECIFIED 11/03/2017 LAVERNE SUNSHINE Ot C67.9 MALIGNANT NEOPLASM OF BLADDER, UNSPECIFI 11/03/2017 LUCIANA MACKENZIE, CAREY Torres Ot 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 11/03/2017 CAREY CHOWDHURY MD Ot R91.8 OTHER NONSPECIFIC ABNORMAL FINDING OF NICKY 11/03/2017 GODFREY WILL DO Ot R91.8 OTHER NONSPECIFIC ABNORMAL FINDING OF NICKY 11/09/2017 KANIKA MACKENZIE, MOOSE K Ot R91.8 OTHER NONSPECIFIC ABNORMAL FINDING OF NICKY 11/09/2017 ANTONY SCHWARTZ TRADE MARKER Ot 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 11/09/2017 ANTONY SCHWARTZ TRADE MARKER Ot R59.0 LOCALIZED ENLARGED LYMPH NODES 11/09/2017 ANTONY SCHWARTZ TRADE MARKER Ot R91.8 OTHER NONSPECIFIC ABNORMAL FINDING OF NICKY 11/11/2017 LAVERNE SUNSHINE Ot C67.9 MALIGNANT NEOPLASM OF BLADDER, UNSPECIFI 11/16/2017 REINA BYRD MD Ot 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 11/16/2017 REINA BYRD MD Ot R91.8 OTHER NONSPECIFIC ABNORMAL FINDING OF NICKY 11/17/2017 GODFREY WILL DO Ot R91.8 OTHER NONSPECIFIC ABNORMAL FINDING OF NICKY 12/01/2017 ANTONY SCHWARTZ TRADE MARKER Ot 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 12/01/2017 ANTONY SCHWARTZ TRADE MARKER Ot R59.0 LOCALIZED ENLARGED LYMPH NODES 12/01/2017 ANTONY SCHWARTZ TRADE MARKER Ot R91.8 OTHER NONSPECIFIC ABNORMAL FINDING OF NICKY 12/02/2017 REINA BYRD MD Ot 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 12/02/2017 REINA BYRD MD Ot R91.8 OTHER NONSPECIFIC ABNORMAL FINDING OF NICKY 12/29/2017 LAVERNE SUNSHINE Ot C67.9 MALIGNANT NEOPLASM OF BLADDER, UNSPECIFI 12/30/2017 GODFREY WILL DO Ot R91.8 OTHER NONSPECIFIC ABNORMAL FINDING OF NICKY 12/30/2017 CAREY CHOWDHURY MD Ot 458.9 HYPOTENSION NOS 12/30/2017 CAREY CHOWDHURY MD Ot 789.00 ABDOMINAL PAIN, UNSPECIFIED SITE 12/30/2017 ANTONY PINEDA Ot 719.06 JOINT EFFUSION-L/LEG 12/30/2017 Ot J18.9 PNEUMONIA, UNSPECIFIED ORGANISM 12/30/2017 CAREY CHOWDHURY MD Ot M54.5 LOW BACK PAIN 12/30/2017 LANRE TALBERT MD Ot N40.0 BENIGN PROSTATIC HYPERPLASIA WITHOUT LOW 12/30/2017 LANRE TALBERT MD Ot R31.9 HEMATURIA, UNSPECIFIED 12/30/2017 CAREY CHOWDHURY MD Ot 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 12/30/2017 CAREY CHOWDHURY MD Ot R91.8 OTHER NONSPECIFIC ABNORMAL FINDING OF NICKY 12/30/2017 GODFREY WILL DO Ot R91.8 OTHER NONSPECIFIC ABNORMAL FINDING OF NICKY 12/30/2017 KANIKA MACKENZIE, MOOSE Pena Ot R91.8 OTHER NONSPECIFIC ABNORMAL FINDING OF NICKY 12/30/2017 REINA BYRD MD Ot 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 12/30/2017 ROCHELLE MACKENZIE, REINA Torres Ot R91.8 OTHER NONSPECIFIC ABNORMAL FINDING OF NICKY 12/30/2017 OXAANTONY ASENCIO Ora TRADE MARKER Ot 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 12/30/2017 OXAANTONY ASENCIO Ora TRADE MARKER Ot R59.0 LOCALIZED ENLARGED LYMPH NODES 12/30/2017 OXANDANTONY RIVERA Ora TRADE MARKER Ot R91.8 OTHER NONSPECIFIC ABNORMAL FINDING OF NICKY 12/30/2017 BITALAVERNE N Ot C67.9 MALIGNANT NEOPLASM OF BLADDER, UNSPECIFI 12/31/2017 BITALAVERNE GILL N Ot C67.9 MALIGNANT NEOPLASM OF BLADDER, UNSPECIFI 12/31/2017 GODFREY WILL DO Ot R91.8 OTHER NONSPECIFIC ABNORMAL FINDING OF NICKY 12/31/2017 LAVERNE SUNSHINE N Ot C34.11 MALIGNANT NEOPLASM OF UPPER LOBE, RIGHT 12/31/2017 LAVERNE SUNSHINE N Ot 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 12/31/2017 LAVERNE SUNSHINE Ot 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 12/31/2017 LAVERNE SUNSHINE N Ot I25.10 ATHSCL HEART DISEASE OF [place] CORONARY 12/31/2017 LAVERNE SUNSHINE N Ot I27.20 PULMONARY HYPERTENSION, UNSPECIFIED 12/31/2017 LAVERNE SUNSHINE N Ot I48.2 CHRONIC ATRIAL FIBRILLATION 12/31/2017 LAVERNE SUNSHINE N Ot Z79.01 SUBSTITUTE CROSSING GUARD (CURRENT) USE OF ANTICOAGULANT 01/04/2018 LAVERNE SUNSHINE N Ot C67.9 MALIGNANT NEOPLASM OF BLADDER, UNSPECIFI 01/05/2018 LAVERNE SUNSHINE N Ot C34.90 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 01/05/2018 LAVERNE SUNSHINE N Ot 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 01/05/2018 LAVERNE SUNSHINE N Ot E88.9 METABOLIC DISORDER, UNSPECIFIED 01/05/2018 LAVERNE SUNSHINE N Ot J44.9 CHRONIC OBSTRUCTIVE PULMONARY DISEASE, U 01/05/2018 LAVERNE SUNSHINE N Ot N32.89 OTHER SPECIFIED DISORDERS OF BLADDER 01/05/2018 BITALAVERNE GILL N Ot R91.8 OTHER NONSPECIFIC ABNORMAL FINDING OF NICKY 01/05/2018 LAVERNE SUNSHINE N Ot Z01.89 ENCOUNTER FOR OTHER SPECIFIED SPECIAL EX 01/13/2018 GODFREY WILL DO Charles Ot R91.8 OTHER NONSPECIFIC ABNORMAL FINDING OF NICKY 01/14/2018 LAVERNE SUNSHINE Ot C34.11 MALIGNANT NEOPLASM OF UPPER LOBE, RIGHT 01/14/2018 LAVERNE SUNSHINE Ot 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 01/14/2018 LAVERNE SUNSHINE Mono Ot 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 01/14/2018 LAVERNE SUNSHINE Ot I25.10 ATHSCL HEART DISEASE OF [place] CORONARY 01/14/2018 LAVERNE SUNSHINE Mono Ot I27.20 PULMONARY HYPERTENSION, UNSPECIFIED 01/14/2018 LAVERNE SUNSHINE Mono Ot I48.2 CHRONIC ATRIAL FIBRILLATION 01/14/2018 LAVERNE SUNSHINE Ot Z79.01 HALF-WAY (CURRENT) USE OF ANTICOAGULANT 01/17/2018 LUCIANA MACKENZIE, CAREY Torres Ot 458.9 HYPOTENSION NOS 01/17/2018 LUCIANA MACKENZIE, CAREY Torres Ot 789.00 ABDOMINAL PAIN, UNSPECIFIED SITE 01/17/2018 ANTONY PINEDA EQUIPMENT SERVICE ENGINEER Ot 719.06 JOINT EFFUSION-L/LEG 01/17/2018 Ot J18.9 PNEUMONIA, UNSPECIFIED ORGANISM 01/17/2018 CAREY CHOWDHURY MD Ot M54.5 LOW BACK PAIN 01/17/2018 LANRE TALBERT MD Ot N40.0 BENIGN PROSTATIC HYPERPLASIA WITHOUT LOW 01/17/2018 LANRE TALBERT MD Ot R31.9 HEMATURIA, UNSPECIFIED 01/17/2018 CAREY CHOWDHURY MD Ot 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 01/17/2018 CAREY CHOWDHURY MD Ot R91.8 OTHER NONSPECIFIC ABNORMAL FINDING OF NICKY 01/17/2018 KANIKA MACKENZIE, MOOSE K Ot R91.8 OTHER NONSPECIFIC ABNORMAL FINDING OF NICKY 01/17/2018 ROCHELLE MACKENZIE, REINA Torres Ot 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 01/17/2018 RENIA BYRD MD Ot R91.8 OTHER NONSPECIFIC ABNORMAL FINDING OF NICKY 01/17/2018 ANTONY SCHWARTZ TRADE MARKER Ot 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 01/17/2018 ANTONY CSHWARTZ TRADE MARKER Ot R59.0 LOCALIZED ENLARGED LYMPH NODES 01/17/2018 ANTONY SCHWARTZ TRADE MARKER Ot R91.8 OTHER NONSPECIFIC ABNORMAL FINDING OF NICKY 01/17/2018 LAVERNE SUNSHINE Mono Ot C34.11 MALIGNANT NEOPLASM OF UPPER LOBE, RIGHT 01/17/2018 BITA NICHOLASREHAN Mono Ot 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 01/17/2018 BITA NICHOLASREHAN Mono Ot 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 01/17/2018 BITA LAVERNE Villareal Ot I25.10 ATHSCL HEART DISEASE OF [place] CORONARY 01/17/2018 BITALAVERNE Ot I27.20 PULMONARY HYPERTENSION, UNSPECIFIED 01/17/2018 BITALAVERNE Ot I48.2 CHRONIC ATRIAL FIBRILLATION 01/17/2018 BITALAVERNE Ot Z79.01 HALF-WAY (CURRENT) USE OF ANTICOAGULANT 01/17/2018 BITALAVERNE Ot C34.90 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 01/17/2018 BITA LAVERNE Villareal Ot 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 01/17/2018 LAVERNE SUNSHINE Mono Ot E88.9 METABOLIC DISORDER, UNSPECIFIED 01/17/2018 BITALAVERNE Ot J44.9 CHRONIC OBSTRUCTIVE PULMONARY DISEASE, U 01/17/2018 BITA LAVERNE Villareal Ot N32.89 OTHER SPECIFIED DISORDERS OF BLADDER 01/17/2018 BITA LAVERNE Villareal Ot R91.8 OTHER NONSPECIFIC ABNORMAL FINDING OF NICKY 01/17/2018 BITA, NICHOLASREHAN Mono Ot Z01.89 ENCOUNTER FOR OTHER SPECIFIED SPECIAL EX 01/17/2018 GODFREY WILL DO Ot C34.11 MALIGNANT NEOPLASM OF UPPER LOBE, RIGHT 01/17/2018 GODFREY WILL DO Ot 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 01/17/2018 GODFREY WILL DO Ot D50.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 01/17/2018 GODFREY WILL DO Ot I10 ESSENTIAL (PRIMARY) HYPERTENSION 01/17/2018 GODFREY WILL DO Ot Z79.01 HALF-WAY (CURRENT) USE OF ANTICOAGULANT 01/17/2018 GODFREY WILL DO, Ot Z79.899 OTHER HALF-WAY (CURRENT) DRUG THERAPY 01/19/2018 LORENA MACKENZIE, AAMIR Lopez Ot I27.20 PULMONARY HYPERTENSION, UNSPECIFIED 01/19/2018 LORENA MACKENZIE, AAMIR Lopez Ot I50.30 UNSPECIFIED DIASTOLIC (CONGESTIVE) HEART 01/28/2018 LAVERNE SUNSHINE Mono Ot C34.90 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 01/28/2018 LAVERNE SUNSHINE Mono Ot 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 01/28/2018 LAVERNE SUNSHINE Mono Ot E88.9 METABOLIC DISORDER, UNSPECIFIED 01/28/2018 LAVERNE SUNSHINE Mono Ot J44.9 CHRONIC OBSTRUCTIVE PULMONARY DISEASE, U 01/28/2018 LAVERNE SUNSHINE Mono Ot N32.89 OTHER SPECIFIED DISORDERS OF BLADDER 01/28/2018 LAVERNE SUNSHINE Mono Ot R91.8 OTHER NONSPECIFIC ABNORMAL FINDING OF NICKY 01/28/2018 LAVERNE SUNSHINE Mono Ot Z01.89 ENCOUNTER FOR OTHER SPECIFIED SPECIAL EX Procedures Code Description Performed By Performed On 47.01 LAPAROSCOP APPENDECTOMY 01/18/2014 [id number] EXCISION OF BLADDER, ENDO , DIAGN 09/21/2017 Results Test Result Range Complete blood count [...] RED CELLS LEUKO REDUCED AS1 NOT AVAILABLE NRG Blood type T Indirect antibody screen panel - 09/13/17 14:22 ABO+Rh group AP NRG Transfusion band number [id number] NRG Blood group antibody screen NEGATIVE NRG Whole blood hemoglobin and hematocrit panel - [...] ABO+Rh group AP NRG Transfusion band number [id number] [facility] Blood group antibody screen NEGATIVE [facility] Complete blood count (CBC) with automated white [...] ABO+Rh group AP NRG Transfusion band number [id number] NRG Blood group antibody screen NEGATIVE NRG [...] plasma albumin measurement (mass/volume) 3.0 g/dL 3.2-4.5 Mycobacterium species detection by organism specific culture - 10/06/17 08:15 Mycobacterium species detection by organism specific culture TNP: Lab Request NRG Sputum Gram stain - 10/06/17 08:15 GRAM STAIN SPUTUM NO BACTERIA OBSERVED NRG Bacteria identification in bronchial specimen by aerobe culture - 10/06/17 08: 15 Bacteria identification in bronchial specimen by aerobe culture NORMAL NRG Mycobacterium species detection by organism specific culture - 10/06/17 08:15 QUANTITY OF GROWTH . [facility] Mycobacterium species detection by organism specific culture SEE COMMEN [facility] Fungus culture - 10/06/17 08:15 FUNGUS REPORT NO FUNGUS GROWTH OBSERVED [facility] [id number] - 11/08/17 10:24 Serum or plasma urea nitrogen measurement (mass/volume) 39 mg/dL 7-18 Serum or plasma creatinine measurement (mass/volume) 1.91 mg/dL 0.60-1.30 Serum or plasma urea nitrogen/creatinine mass ratio 20 NRG Serum or plasma creatinine measurement with calculation of estimated glomerular filtration rate 34 NRG Complete blood count (CBC) with automated white blood cell (WBC) differential - 01/12/18 08:19 Blood leukocytes automated count (number/volume) 8.7 10*3/uL 4.3-11.0 Blood erythrocytes automated count (number/volume) 4.64 10*6/uL 4.35-5.85 Venous blood hemoglobin measurement (mass/volume) 12.1 g/dL 13.3-17.7 Blood hematocrit (volume fraction) 36 % 40-54 Automated erythrocyte mean corpuscular volume 78 [foz_us] 80-99 Automated erythrocyte mean corpuscular hemoglobin (mass per erythrocyte) 26 pg 25-34 Automated erythrocyte mean corpuscular hemoglobin concentration measurement ( mass/volume) 33 g/dL 32-36 Automated erythrocyte distribution width ratio 18.7 % 10.0-14.5 Automated blood platelet count (count/volume) 302 10*3/uL 130-400 Automated blood platelet mean volume measurement 11.6 [foz_us] 7.4-10.4 Automated blood neutrophils/100 leukocytes 71 % 42-75 Automated blood lymphocytes/100 leukocytes 18 % 12-44 Blood monocytes/100 leukocytes 8 % 0-12 Automated blood eosinophils/100 leukocytes 3 % 0-10 Automated blood basophils/100 leukocytes 0 % 0-10 Blood neutrophils automated count (number/volume) 6.2 10*3 1.8-7.8 Blood lymphocytes automated count (number/volume) 1.6 10*3 1.0-4.0 Blood monocytes automated count (number/volume) 0.7 10*3 0.0-1.0 Automated eosinophil count 0.3 10*3/uL 0.0-0.3 Automated blood basophil count (count/volume) 0.0 10*3/uL 0.0-0.1 Comprehensive metabolic panel - 01/12/18 08:19 Serum or plasma sodium measurement (moles/volume) 139 mmol/L 135-145 Serum or plasma potassium measurement (moles/volume) 4.3 mmol/L 3.6-5.0 Serum or plasma chloride measurement (moles/volume) 108 mmol/L 98-107 Carbon dioxide 21 mmol/L 21-32 Serum or plasma anion gap determination (moles/volume) 10 mmol/L 5-14 Serum or plasma urea nitrogen measurement (mass/volume) 47 mg/dL 7-18 Serum or plasma creatinine measurement (mass/volume) 2.25 mg/dL 0.60-1.30 Serum or plasma urea nitrogen/creatinine mass ratio 21 NRG Serum or plasma creatinine measurement with calculation of estimated glomerular filtration rate 28 NRG Serum or plasma glucose measurement (mass/volume) 108 mg/dL 70-105 Serum or plasma calcium measurement (mass/volume) 9.9 mg/dL 8.5-10.1 Serum or plasma total bilirubin measurement (mass/volume) 0.6 mg/dL 0.1-1.0 Serum or plasma alkaline phosphatase measurement (enzymatic activity/volume) 39 U/L 40-136 Serum or plasma aspartate aminotransferase measurement (enzymatic activity/ volume) 32 U/L 5-34 Serum or plasma alanine aminotransferase measurement (enzymatic activity/volume ) 32 U/L 0-55 Serum or plasma protein measurement (mass/volume) 8.3 g/dL 6.4-8.2 Serum or plasma albumin measurement (mass/volume) 4.1 g/dL 3.2-4.5 CALCIUM CORRECTED 9.8 mg/dL 8.5-10.1 PT panel in platelet poor plasma by coagulation assay - 01/12/18 08:19 Prothrombin time (PT) in platelet poor plasma by coagulation assay 30.3 s 12.2-14.7 INR in platelet poor plasma or blood by coagulation assay 2.9 0.8-1.4 Whole blood basic metabolic panel - 01/17/18 11:30 Serum or plasma sodium measurement (moles/volume) 138 mmol/L 135-145 Serum or plasma potassium measurement (moles/volume) 4.1 mmol/L 3.6-5.0 Serum or plasma chloride measurement (moles/volume) 103 mmol/L 98-107 Carbon dioxide 21 mmol/L 21-32 Serum or plasma anion gap determination (moles/volume) 14 mmol/L 5-14 Serum or plasma urea nitrogen measurement (mass/volume) 59 mg/dL 7-18 Serum or plasma creatinine measurement (mass/volume) 2.62 mg/dL 0.60-1.30 Serum or plasma urea nitrogen/creatinine mass ratio 23 NRG Serum or plasma creatinine measurement with calculation of estimated glomerular filtration rate 24 NRG Serum or plasma glucose measurement (mass/volume) 196 mg/dL 70-105 Serum or plasma calcium measurement (mass/volume) 10.1 mg/dL 8.5-10.1 Encounters ACCT No. Visit Date/Time Discharge Status Pt. Type Provider Facility Loc./Unit Complaint [id number] 01/31/2018 07:54:00 01/31/2018 23:59:59 CLS Outpatient [facility] [id number] 01/17/2018 11:01:00 01/17/2018 23:59:59 CLS Outpatient AAMIR CARRILLO MD [facility] [id number] 01/12/2018 08:11:00 01/12/2018 23:59:59 CLS Outpatient GODFREY WILL DO [facility] LAB R91.8 [id number] 01/04/2018 12:03:00 01/04/2018 23:59:59 CLS Outpatient LAVERNE SUNSHINE [facility] RAD BLADDER CA,SQUAMOUS CELL CARCINOMA LUNG [id number] 10/01/2017 12:11:00 12/30/2017 00:01:00 DIS Outpatient GODFREY WILL DO [facility] LAB R91.8 [id number] 11/08/2017 15:47:00 11/08/2017 23:59:59 CLS Outpatient ANTONY SCHWARTZ APRN [facility] RAD HILAR MASS,LUNG MASS [id number] 11/08/2017 10:09:00 11/08/2017 23:59:59 CLS Outpatient KANIKA MACKENZIE, MOOSE Pena [facility] RAD LUNG MASS, HILAR MASS [id number] 11/08/2017 09:43:00 11/08/2017 23:59:59 CLS Outpatient ROCHELLE MACKENZIE, REINA Torres [facility] LAB ATRIAL FIBRILLATION [id number] 11/02/2017 16:33:00 11/02/2017 23:59:59 CLS Preadmit KANIKA MACKENZIE, MOOSE Pena [facility] RAD LUNG MASS, HILAR MAS [id number] 10/11/2017 08:45:00 10/11/2017 23:59:59 CLS Outpatient LAVERNE SUNSHINE N [facility] ONC [id number] 10/07/2017 12:00:00 10/07/2017 23:59:59 CLS Preadmit GALI MACKENZIE, LANRE Torres [facility] CARD CA BLADDER [id number] 10/06/2017 06:58:00 10/06/2017 10:40:00 DIS Outpatient GODFREY WILL DO [facility] ENDO LUNG MASS/BLADDER CANCER [id number] 10/05/2017 06:10:00 10/05/2017 10:00:00 DIS Outpatient GODFREY WILL DO [facility] PREOP EBUS [id number] 09/28/2017 08:37:00 09/28/2017 23:59:59 CLS Outpatient CAREY CHOWDHURY MD [facility] RAD RT LUNG MASS,BLADDER TUMOR [id number] 09/13/2017 12:03:00 09/23/2017 14:42:00 DIS Inpatient CAREY CHOWDHURY MD [facility] 4TH RENAL FAILURE,URINARY RETENTION [id number] 04/22/2017 12:33:00 04/22/2017 23:59:59 CLS Outpatient LANRE TALBERT MD [facility] RAD HEMATURIA [id number] 08/21/2015 08:29:00 08/21/2015 23:59:59 CLS Outpatient CAREY CHOWDHURY MD [facility] RAD LOW BACK PAIN [id number] 12/28/2014 11:10:00 12/28/2014 23:59:59 CLS Outpatient ANTONY PINEDA [facility] RAD L KNEE PAIN, SWELLING [id number] 02/14/2014 13:57:00 02/14/2014 23:59:59 CLS Outpatient CAREY CHOWDHURY MD [facility] ABD PAIN/HTN [id number] 01/18/2014 12:18:00 01/21/2014 14:00:00 DIS Inpatient CAREY CHOWDHURY MD [facility] SURGICAL ABD PAIN [id number] 08/21/2015 08:27:00 Document Registration [id number] 05/01/2015 15:50:00 Document Registration [id number] 02/12/2015 15:12:00 Document Registration [id number] 06/29/2012 09:12:00 Document Registration [id number] 03/17/2012 11:19:00 Document Registration [id number] 10/30/2011 11:22:00 Document Registration [id number] 01/29/2011 15:53:00 Document Registration [id number] 01/29/2011 11:17:00 Document Registration [id number] 01/29/2011 10:42:00 Document Registration [id number] 03/04/2017 23:43:51 03/04/2017 23:59:59 CLS Outpatient [id number] 12/28/2014 11:11:52 ACT Document Registration
[2018-02-04 14:19] LABS: BACTERIA,URINE NEGATIVE /HPF
[2018-02-04 14:45] VITALS: BP 131/60
[2018-02-08] MEDS ORDERED: WARF-48 PO ×2 (14:33)
[2018-02-08] MEDS ORDERED: BUME2TAB3 PO (14:33)
[2018-02-08] MEDS ORDERED: HYDR-3922 PO (14:33)
[2018-02-08] MEDS ORDERED: ASPI-983 PO (14:33)
[2018-02-11] MEDS ORDERED: DIPH1TAB PO (08:56)
[2018-02-11] MEDS ORDERED: BETA15CR4 TP (08:56)
[2018-02-11] MEDS ORDERED: HYDR-3922 PO (08:56)
[2018-02-11] MEDS ORDERED: CARV25TA PO (08:56)
[2018-02-11] MEDS ORDERED: WARF-48 PO (08:56)
[2018-02-11] MEDS ORDERED: CEPH-507 PO (08:59)
== END 2018-02-04 14:47 | disposition home or self-care (01) ==
LOC: EDUNIT# 13:17 → ER 13:18
DX: C67.9 Malignant neoplasm of bladder, unspecified (principal); C34.90 Malignant neoplasm of unspecified part of unspecified bronchus or lung; I25.10 Atherosclerotic heart disease of native coronary artery without angina pectoris; I10 Essential (primary) hypertension; Z80.0 Family history of malignant neoplasm of digestive organs; Z82.49 Family history of ischemic heart disease and other diseases of the circulatory system; Z87.19 Personal history of other diseases of the digestive system; Z92.21 Personal history of antineoplastic chemotherapy; Z88.0 Allergy status to penicillin; Z79.01 Long term (current) use of anticoagulants; Z95.1 Presence of aortocoronary bypass graft; Z90.89 Acquired absence of other organs
CPT/HCPCS: 51702; 81000

== ENCOUNTER → 2018-02-16 | Outpatient (CLI) | payer MEDICARE, OTHER ==
[~2018-02-16] MED LIST changes: +BETA15CR4 TP; +CARV6.252 PO; +CEPH-507 PO; +DIPH1TAB PO; +FLUT9.9S16 NS; +HYDR-34 PO; +HYDR-3870 PO; +HYDR-3922 PO
== END | disposition home or self-care (01) ==
LOC: PREOP 15:47
PROVIDERS: ATTEND Surgery
DX: Z01.818 Encounter for other preprocedural examination (principal)

== ENCOUNTER 2018-02-17 08:44 | Day surgery (SDC) | payer MEDICARE, OTHER ==
[~2018-02-17] VITALS: Ht 177.8 cm; Wt 78.9 kg
[~2018-02-17 08:44] MED LIST changes: -CARV6.252 PO; -FLUT9.9S16 NS; -HYDR-34 PO; -HYDR-3870 PO
--- OUTSIDE RECORDS SUMMARY | 2018-02-17 08:48 | XMS REPORT | Encounter Summary ---
Author Author [facility] Organization [facility] Address Unknown Phone Unavailable Care Team Providers Care Media Librarian Name Role Phone Verna Ferro MD PCP Florentin Martinez MD 3 Reason for Visit * Reason Comments Labs Only BMP Encounter Details Date Type Department Care Team Description 01/04/2018 Documentation Cardiovascular Medicine Marylou Wilhelm RN Labs Only (BMP) [facility] [place] [address] Social History Tobacco Use Types Packs/Day Years [...]
--- OUTSIDE RECORDS SUMMARY | 2018-02-17 08:48 | XMS REPORT | Encounter Summary ---
Author Author [facility] Organization [facility] Address Unknown Phone Unavailable Care Team Providers Care Supervisor Cell Maintenance Name Role Phone Verna Ferro MD PCP Florentin Martinez MD 3 Reason for Visit * Reason Comments Heme/Onc Care New Patient * Consult, Test & Treat Status Reason Specialty Diagnoses / Referred By Referred To Procedures Contact Contact No Auth Needed Specialty Oncology Diagnoses Kacie Alicia - Deepika Cl Services Squamous cell MD Abdullahi Exm/Proc Rm Required carcinoma of [address] [facility] lung[facility] unspecified [place] [address] laterality (HCC) [place], [place] [address] [address] [place], [place] Phone: Encounter Details Date Type Department Care Team Description 12/21/2017 Office Visit [facility] Abdullahi Alicia , Squamous cell carcinoma [facility] [place] [facility] Exam MD of right lung (HCC) [facility] [address] (Primary Dx) [address] [place] [address] [place] [address] [place] [address] [phone] Abdon Romero MD [address] [place] [address] [place], [place] [id number] Social History Tobacco Use Types Packs/Day Years [...] catheterization to evaluate his pulmonary hypertension. His beverage manager has told him that any major [...] catheterization to evaluate his pulmonary hypertension. His beverage manager has told him that any major [...] with Dr. Wilber Lawson MD oncologist in [facility]. He will follow up with Dr. [...] with Dr. Wilber Lawson MD oncologist in [facility]. He will follow up with Dr. Lawson. 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
--- OUTSIDE RECORDS SUMMARY | 2018-02-17 08:48 | XMS REPORT | Clinical Summary ---
Author Author [facility] Organization [facility] Address Unknown Phone Unavailable Care Team Providers Care Sweater Operator Name Role Phone Verna Ferro MD PCP Florentin Martinez MD 3 Source Comments Some departments are not documenting in the electronic medical record. If you do not see the information that you expected, contact Release of Information in the Health Information Management department at [phone] for further assistance in locating additional records.[facility] Allergies Active Allergy Reactions Severity Noted Date [...] tablet 1 01/13/20 Active tablet daily. 18 Active Problems Problem Noted Date Chronic diastolic heart failure, NYHA class 3 (HCC) 12/21/2017 Lung nodule 11/29/2017 Overview: Added automatically from request for surgery [id number] Mass of upper lobe of right lung 11/17/2017 Overview: Added automatically from request for surgery [id number] (HFpEF) heart failure with preserved ejection fraction [...] catheterization to evaluate his pulmonary hypertension. His strategic marketing associate has told him that any major surgery [...] with Dr. Wilber Lawson MD oncologist in [facility]. He will follow up with Dr. Lawson. [...] Akhil Gonzalez MD Post-hospital Follow Up (11/23/17 [facility] s/p [facility] [place] ); New To Provider (Hospital Only ) 12/21/2017 Office Visit Oncology Abdullahi Alicia Squamous cell carcinoma MD of right lung (HCC) Abdon Hilton MD (Primary Dx) 12/10/2017 Telephone Oncology Abdon Hilton MD Navigation Assessment 12/09/2017 Telephone Cardiothoracic Surgery Afia Miller APRN-STATE'S ATTORNEY Other (EBUS results) 12/09/2017 Orders Only Cardiothoracic Surgery Dori Pierce, JOSE MANUEL Squamous cell carcinoma of lung, unspecified laterality (HCC) (Primary Dx) 12/01/2017 Hospital Eduardo Brunson MD Lung nodule Encounter 12/01/2017 Procedure Pass 12/01/2017 Anesthesia Payton Galvez, ASSEMBLER BICYCLE Event 12/01/2017 Procedure Pass 12/01/2017 Surgery Eduardo Brunson MD BRONCHOSCOPY RIGID 11/29/2017 Prep for Case Eduardo Brunson MD Lung nodule (Primary Dx) 11/25/2017 Telephone Cardiology Lacie Anderson LPN Medical Question 11/23/2017 Hospital Cardiology Cath, Physician Pulmonary hypertension Encounter Akhil Gonzalez MD (HCC) 11/23/2017 Anesthesia Cardiology Kim Emery, SRNA Event 11/23/2017 Procedure Pass Cardiology 11/23/2017 Surgery Cardiology Akhil Gonzalez MD CATHETERIZATION RIGHT HEART 11/22/2017 Pre-Admit Cardiology Hallie Ayala APRN Pulmonary hypertension Orders Only (HCC) (Primary Dx); Heart failure with preserved ejection fraction (HCC) 11/22/2017 Prep for Case Cardiology Ines Salgado RN Pulmonary hypertension (HCC) (Primary Dx); (HFpEF) heart failure with preserved ejection fraction ([facility] 11/19/2017 Telephone Cardiothoracic Surgery Dori Pierce, JOSE MANUEL Follow-up Phone Call 11/17/2017 Telephone Cardiothoracic Surgery Dori Pierce, JOSE MANUEL Follow-up Phone Call 11/17/2017 Prep for Case Cardiothoracic Surgery Abdullahi Alicia, Hilar mass (Primary Dx); Mass of upper lobe of right lung from Last 3 Months Family History Medical [...] (1 of 2 - PCV13) INFLUENZA VACCINE 12/08/2017 02/18/2012, 02/25/2011, 02/10/2010, Additional history exists Procedures [...] nodule ULTRASOUND 1:45 PM CDT Special Needs Nannette/Abbo ud. Please sched 12/01/17 @ 1:30pm. 2 hr block. Thanks BRONCHOSCOPY RIGID 12/01/2017 Lung nodule 1:45 PM CDT Special Needs Brunson/Abbo ud. Please sched 12/01/17 @ 1:30pm. 2 hr block. Thanks BASIC METABOLIC PANEL 12/01/2017 Results for this 1:13 PM CDT procedure are in the results section. NON-SENIOR PROJECT MANAGER ENGINEERING CYTOLOGY (BODY 12/01/2017 Results for this FLUIDS/TISSUE) [...] heart failure with preserved ejection fraction (HCC) from Last 3 Months Results * BASIC METABOLIC PANEL (01/12/2018) Only the most recent of 5 results within the time period is included. Sodium 139 [facility] Potassium 4.3 [facility] Chloride 108 (A) 98 - 107 [facility] CO2 21 [facility] Blood Urea Nitrogen 47 (A) 7 - 18 [facility] Creatinine 2.25 (A) 0.6 - 1.3 [facility] Glucose 108 (A) 70 - 105 [facility] Calcium 9.9 [facility] eGFR Non [facility] eGFR [facility] Anion Gap [facility] Specimen Blood - Blood Narrative Performed At Pt currently on bumex 2mg [address] Ferro recommended [facility] decreasing to 0.5 tab.Pt's creatinine still increased from [facility] baseline.Routing to [facility] for review. Performing Organization Address City/State/Zipcode Phone Number [facility] [address] [address] [employer] * PATHOLOGY REPORTS FROM OUTSIDE SCAN (01/04/2018 11:37 AM) Narrative Performed At Ordered by an unspecified provider. * PROCEDURE RECORD-SCAN (12/02/2017 3:14 PM) Narrative Performed At Ordered by an unspecified provider. * TELEMETRY STRIPS-SCAN (12/02/2017 3:11 PM) Narrative Performed At Ordered by an unspecified provider. * SURGICAL PATHOLOGY (12/01/2017 4:33 PM) PATHOLOGY REPORT THE [facility] [employer] [facility] [employer] Department of Pathology and Laboratory Medicine [address] [place] [address] Surgical Pathology Office:[phone] :[phone] SURGICAL PATHOLOGY REPORT NAME: ASHLEY SCHMITT SURG PATH #: [id number] MR #: [id number] SPECIMEN CLASS: SR BILLING #: [id number] ALT ID #:LOCATION: [facility] DATE OF PROCEDURE: 12/01/2017 AGE:77 SEX: M DATE RECEIVED: 12/01/2017 : 1940TIME RECEIVED:16:33 PHYSICIAN: EDUARDO BRUNSON DATE OF REPORT: 12/03/2017 COPY TO:DATE OF PRINTIN12/03/2017 ############################## ############################## ############ Final Diagnosis: A. Respiratory and focal squamous epithelium, "right upper lobe mass biopsy": Minute fragment of markedly atypical cells, cannot exclude carcinoma. Please correlate with the concurrent cytology specimen ([id number]). See comment. Comment: Immunostains performed on block [...] material indicated in this report. +++ +++ smita/12/02/2017 ############################## ############################## ############ Material Received: A: right [...] of Pathology and Laboratory Medicine of the [facility] ([employer]) in compliance with [...] of Pathology and Laboratory Medicine of the [facility].It has not been cleared or approved by the FDA.The FDA has determined that such clearance or approval is not necessary. Performing Organization Address City/State/Zipcode Phone Number LAB RESULTS * FINE NEEDLE ASPIRATE (FNA) (12/01/2017 3:31 PM) Cytology [facility] [employer] Department of Pathology and Laboratory Medicine [address] [place] [address] Surgical Pathology Office:[phone] :[phone] CYTOLOGY REPORT NAME: ASHLEY SCHMITT SURG PATH #: [id number] MR #: [id number] ALT ID #: BILLING #: [id number] LOCATION: END DATE OF PROCEDURE: 12/01/2017 AGE: 77 SEX: [...] determination of adequacy was performed by the [facility] technical lead senior developerBHAVANI, on Diff-Quik stained slide(s). Pass 1 and 2 were not adequate for evaluation. Pass 3 was placed entirely in RPMI for cell block preparation. B.( 2 DQ direct smear, 2 Pap direct smear, 1 cell block) Rapid determination of adequacy was performed by the [employer] technical lead senior developer ET, on Diff-Quik stained slide(s). Pass 1 [...] Please also see concurrent surgical pathology report ([id number]). Comment: Immunostains performed on the cell block [...] tissue, precluding further testing. Pursuant to the Oil Heat Technician Program at the [facility] Pathology Department, selected slides from this case [...] Cell types evaluated: Tumor cells FDA status: Industrial Maintenance Instructor Addendum Comment A CK20 immunostain on the cell block is negative in the tumor cells, supporting the original diagnosis. AYANA Mccarty Performing Organization Address City/State/Zipcode Phone Number [facility] LAB RESULTS * CULTURE-FUNGAL,OTHER (12/01/2017 3:17 PM) Battery Name FUNGUS CULTURE [facility] MA[facility] Specimen Description TISSUE MAIN LAB RIGHT UPPER LOBE MASS Special Requests NONE [facility] Culture NO GROWTH OF FUNGUS AT 4 WEEKS [facility]IN [facility] Report Status FINAL MAIN LAB 01/03/2018 Specimen Tissue Performing Organization Address City/State/Zipcode Phone Number MAIN LAB [address] [place] [address] * CULTURE-TB (AFB) (12/01/2017 3:17 PM) Battery Name AFB CULTURE [facility] Specimen Description TISSUE MAIN LAB RIGHT UPPER LOBE MASS Special Requests NONE MAIN LAB Culture NO GROWTH OF MYCOBACTERIA AT 6 [facility] MAIN LAB WEEKS Report Status FINAL [facility] 01/17/2018 Specimen Tissue Performing Organization Address City/State/Zipcode Phone Number MAIN [place] [address] * CT CHEST WO CONTRAST (12/01/2017 2:05 [...] and CABG with dense calcification of the [place] coronary arteries. The thoracic aorta is normal [...] and CABG with dense calcification of the [place] coronary arteries. The thoracic aorta is normal [...] RESULTS Procedure Date: 12/01/2017 1:50 PM CSN: [id number] Date of : 1940 Gender: Male Attending Physician: Eduardo Brunson MD Procedure: Bronchoscopy Indications: Right upper lobe mass Providers: Eduardo Brunson MD (Doctor), Milla Lou (Nurse), Vera Stewart RN (Nurse), Bon Angel, Director Behavioral Health (Director Behavioral Health), Minal Vega, Director Behavioral Health (Director Behavioral Health) Referring Physician:Verna Ferro Medications: Tetricaine 0.25%/Epinephrine 0.003% [...] inadequate cellularity. Electromagnetic navigation bronchoscopy utilizing the IPXI system was performed. The CT scan was [...] City/State/Zipcode Phone Number [facility] OTHER RESULTS * NON-SENIOR PROJECT MANAGER ENGINEERING CYTOLOGY (BODY FLUIDS/TISSUE) (12/01/2017 9:48 AM) Cytology [facility] [employer] [facility] [employer] Department of Pathology and Laboratory Medicine [address] [place] [address] Surgical Pathology Office:[phone] :[phone] CYTOLOGY REPORT NAME: ASHLEY SCHMITT CYTOLOGY #: [id number] MR #: [id number] ALT ID #: BILLING #: [id number] LOCATION: [facility] DATE OF PROCEDURE: 12/01/2017 AGE: 77 SEX: [...] cells. Please also see concurrent cytology report ([id number]) and surgical pathology report ([id number]). Attestation: By this signature, I attest that I have personally formulated the final interpretation expressed in this report and that the above diagnosis is based upon my examination of the slides and/or other material indicated in this report. +++Electronically Signed Out By+++ leb/12/02/2017 Interpreted by: MD Jalyn Mcfadden MD Resident Performing Organization Address City/State/Zipcode Phone Number [facility] RESULTS * PROCEDURE RECORD-SCAN (11/24/2017 1:10 PM) Narrative Performed At Ordered by an unspecified provider. * TELEMETRY STRIPS-SCAN (11/24/2017 1:01 PM) Narrative Performed At Ordered by an unspecified provider. * CARDIAC CATH REPORT (11/23/2017 2:48 PM) Procedure Note Akhil Gonzalez MD - 11/23/2017 2:48 PM CDT [facility] CARDIAC CATHETERIZATION REPORT Page 2 ASHLEY Soto : 1940 #: [id number] MR #/Billing ID #: [id number] / [id number] DATE: 11/23/2017 SENIOR FIRE PROTECTION ENGINEER: Akhil Gonzalez MD DICTATING PROVIDER: Akhil Gonzalez [...] jugular vein was accessed, and ultimately, a 7-Slovenian sheath was inserted into the right internal [...] Dr. Alicia over the phone in the chemical processing laborer, and the plan will be to present the patient's case at tumor board for further discussion about optimization for surgery. The patient does have some increased risk for decompensation and heart failure progression. Please refer to my partner's note, Dr. Florentin Martinez, for additional details related to this patient. Akhil Gonzalez MD AJMagno/MedJanine /[id number] cc: - Abdullahi Alicia MD Performing Organization Address City/[facility]/[employer] Phone Number OTHER OUTSIDE LAB * O2HGB SAT-VENOUS POC (11/23/2017 2:30 PM) O2HGB SAT-Venous POC 60.2 55 - 71 % MAIN LAB Performing Organization Address [facility] Phone Number [facility] [address] [place] [address] * CBC (11/23/2017 11:28 AM) White Blood Cells 8.4 4.5 - 11.0 K/UL MAIN LAB RBC 4.67 4.4 - 5.5 M/UL [facility] Hemoglobin 12.5 (L) 13.5 - 16.5 GM/DL MAIN LAB Hematocrit 37.1 (L) 40 - 50 % MAIN LAB MCV 79.3 (L) 80 - 100 FL MAIN LAB MCH 26.7 26 - 34 PG [facility] MCHC 33.6 32.0 - 36.0 G/DL [facility] RDW 18.3 (H) 11 - 15 % [facility] MAIN LAB Platelet Count 340 150 - 400 K/UL MAIN LAB MPV 8.8 7 - 11 FL [facility] Specimen Blood Performing Organization Address [facility] Phone Number [facility] [address] [place] [address] * MAGNESIUM (11/23/2017 11:28 AM) Magnesium 1.9 1.6 - 2.6 mg/dL [facility] MAIN LAB Specimen Blood Performing Organization Address City/State/Zipcode Phone Number MAIN LAB [address] [place] [address] from Last 3 Months
--- OUTSIDE RECORDS SUMMARY | 2018-02-17 08:48 | XMS REPORT | Encounter Summary ---
Author Author [facility] Organization [facility] Address Unknown Phone Unavailable Care Team Providers Care Gold Burnisher Name Role Phone Verna Ferro MD PCP Florentin Martinez MD 3 Reason for Visit * Reason Comments Other EBUS results Encounter Details Date Type Department Care Team Description 12/09/2017 Telephone [facility]ia Miller APRN-NP Other ( EBUS results) Cardiovascular Surgeons [address] [facility] [address] [place] [address] [address] [facility] [phone] [place] [address] [phone] Social History Tobacco Use Types Packs/Day Years [...]
--- OUTSIDE RECORDS SUMMARY | 2018-02-17 08:48 | XMS REPORT | Encounter Summary ---
Author Author [facility] Organization [facility] Address Unknown Phone Unavailable Care Team Providers Care Legal Recruiter Name Role Phone Verna Ferro MD PCP Florentin Martinez MD 3 Encounter Details Date Type Department Care Team Description 12/01/2017 Procedure Pass Gastrointenstinal Endoscopy [address] [place] [address] Social History Tobacco Use Types Packs/Day Years [...]
--- OUTSIDE RECORDS SUMMARY | 2018-02-17 08:48 | XMS REPORT | Encounter Summary ---
Author Author [facility] Organization [facility] Address Unknown Phone Unavailable Care Team Providers Care Flap Presser Name Role Phone Verna Ferro MD PCP Florentin Martinez MD 3 Reason for Visit * Auth/Cert Status Reason Specialty Diagnoses / Referred By Referred To Procedures Contact Contact Diagnoses Lung nodule Lung nodule [R91.1] P rocedures CA BRONCHOSCOPY W/CPTR-ASST IMAGE-GUIDED NAVIGATION CA [facility] EBUS GUIDED SAMPL 3/> NODE STATION/STRUX BRONCHOSCOPY RIGID BRONCHOSCOPY WITH ULTRASOUND Encounter Details Date Type Department Care Team Description 12/01/2017 Anesthesia Gastrointenstinal Payton Galvez, PHIL Event Endoscopy [address] [facility] [address] [place] [address] [place] [address] [phone] Anesthesia Record Procedure Name Responsible Anesthesia Start [...] 1554 by Stylet, Direct laryngoscopy; Payton Galvez, CATHOLIC PRIEST Payton Galvez, CATHOLIC PRIEST Single-Lumen, Cuffed; 8.5mm; Mac; 4; Oral; 1-Full [...]
--- OUTSIDE RECORDS SUMMARY | 2018-02-17 08:48 | XMS REPORT | Encounter Summary ---
Author Author [facility] Organization [facility] Address Unknown Phone Unavailable Care Team Providers Care Sales Data Analyst Name Role Phone Verna Ferro MD PCP Florentin Martinez MD 3 Reason for Visit * Reason Comments Navigation Assessment Encounter Details Date Type Department Care Team Description 12/10/2017 Telephone [facility] Abdon Hilton MD Navigation Assessment Cancer [place] [facility] Exam [address] [facility] [address] [place] [address] [place] [address] [phone] Social History Tobacco Use Types Packs/Day Years [...] Dr. Abdullahi Alicia Contact Name & Number: [phone] Surgeon: Dr. Ayaan Brooke, urology Medical Oncologist: Dr. Wilber Lawson in [place]. PCP: Dr. Verna Ferro Other: Dr. Baldo Stoll, mat puncher in [place]. Dr. Aaron Murcia , urology. Location of Films: IN HOUSE and PACS Location of Pathology: Via [facility] and IN HOUSE History of Present Illness: [...] from out of town, coming from the [facility]. He would like to condense appts to [...]
--- OUTSIDE RECORDS SUMMARY | 2018-02-17 08:48 | XMS REPORT | Encounter Summary ---
Author Author [facility] Organization [facility] Address Unknown Phone Unavailable Care Team Providers Care Cable Tv Installer Name Role Phone Verna Ferro MD PCP Florentin Martinez MD 3 Encounter Details Date Type Department Care Team Description 12/01/2017 Procedure Pass Gastrointenstinal Endoscopy [address] [place] [address] Social History Tobacco Use Types Packs/Day Years [...]
--- OUTSIDE RECORDS SUMMARY | 2018-02-17 08:48 | XMS REPORT | Encounter Summary ---
Author Author [facility] Organization [facility] Address Unknown Phone Unavailable Care Team Providers Care Trim Master Operator Name Role Phone Verna Ferro MD [...] Rad unspecified [place] 4035 Onc laterality (HCC) [place], [place] [address] [address] [place], [place] Phone: Scheduling Instructions This referral requires a phone call to schedule with Radiation Oncology. See locations below: CC RADIATION THERAPY: [facility] RAD THER: [facility] RAD THER: [facility] OP RAD THER: * Consult, Test & Treat Status Reason Specialty Diagnoses / Referred By Referred To Procedures Contact Contact No Auth Needed Specialty Oncology Diagnoses Kacie Alicia - Ww Cl Services Squamous long Fernando MD Exm/Proc Rm Required carcinoma of [address] [facility] Center lung, [facility] unspecified [place] [address] laterality (HCC) [place], [place] [address] [address] [place], [place] Phone: Encounter Details Date Type Department Care Team Description 12/09/2017 Orders Only Jonas Thoracic & Dori Pierce, JOSE MANUEL Squamous cell carcinoma Cardiovascular Surgeons of lung, unspecified [facility] [id number] laterality (HCC) (Primary [address] Dx) [place] [address] Social History Tobacco Use Types Packs/Day Years [...]
--- OUTSIDE RECORDS SUMMARY | 2018-02-17 08:48 | XMS REPORT | Encounter Summary ---
Author Author [facility] Organization [facility] Address Unknown Phone Unavailable Care Team Providers Care Architectural Technologist Name Role Phone Verna Ferro MD PCP Florentin Martinez MD 3 Reason for Referral * Status Reason Specialty Diagnoses / Referred By Referred To Procedures Contact Contact New Request Diagnoses Akhil Gonzalez, (HFpEF) heart MD failure with [address] ejection [place] 4023 fraction (HCC) [place] Chronic [address] diastolic heart Phone: failure, NYHA [phone] class 3 (HCC) Fax: Pulmonary [phone] hypertension (HCC) Mitral valve insufficiency, unspecified etiology P rocedures REQUEST FOR CARDIOLOGY APPOINTMENT Reason for Visit * Reason Comments Post-hospital Follow Up 11/23/17 [facility] s/p RHC New To Provider Hospital Only Encounter Details Date Type Department Care Team Description 12/21/2017 Office Visit Cardiovascular Medicine Akhil Gonzalez MD Post-hospital Follow Up [facility] Med [facility] [address] (11/23/17 [facility] s/p RHC ); fl Denys 300 [place] 4023 New To Provider ([address] [address] Only ) [place] [address] [phone] Social History Tobacco Use Types Packs/Day Years [...] 11/29/2017 Added automatically from request for surgery [id number] Mass of upper lobe of right lung 11/17/2017 Added automatically from request for surgery [id number] (HFpEF) heart failure with preserved ejection fraction [...] Gonzalez MD Advanced Heart Failure & Transplant Bowling Ball Grader post acute care nurse Director Division of Advanced Heart Failure & Cardiac Transplantation UNOS Primary Transplant Physician Translator Interpreter, Heart Transplantation [facility] [email or web address] Current Medications (including today's revisions) ALPRAZolam (XANAX) [...]
--- OUTSIDE RECORDS SUMMARY | 2018-02-17 08:48 | XMS REPORT | Encounter Summary ---
Author Author [facility] Organization [facility] Address Unknown Phone Unavailable Care Team Providers Care Public Health Sanitarian Name Role Phone Verna Ferro MD PCP Florentin Martinez MD 3 Reason for Visit * Reason Comments Medication Follow-up Diuretics Encounter Details Date Type Department Care Team Description 12/23/2017 Telephone Cardiovascular Medicine Marylou Wilhelm, ballpoint pens assembler Follow-up [facility]1100 (Diuretics) [address] [place] [address] Social History Tobacco Use Types Packs/Day Years [...] Wednesday. Pt and are agreeable. Called [facility], P:[phone]. Given to send lab order to. * [...] d/t needing someone to drive them to [place]. They meet with Dr. Ballard on and [...] They are agreeable. * Telephone Encounter - Grecia RichmondkVITALY - 12/28/2017 2:37 PM CDT pts returned call from [phone], requests call back to schedule appt. * [...] original. Akhil Gonzalez MD Voye, Melanie, RN Caller: Unspecified (Yesterday, 5:02 PM) Double diuretics. [...] BASIC METABOLIC PANEL (01/12/2018) Sodium 139 [facility] Potassium 4.3 [facility] Chloride 108 (A) 98 - 107 [facility] CO2 21 [facility] Blood Urea Nitrogen 47 (A) 7 - 18 [facility] Creatinine 2.25 (A) 0.6 - 1.3 [facility] Glucose 108 (A) 70 - 105 [facility] Calcium 9.9 [facility] eGFR Non [facility] eGFR [facility] Anion Gap [facility] Specimen Blood - Blood Narrative Performed At Pt currently on bumex 2mg [address] P[address] Ferro recommended [facility] decreasing to 0.5 tab.Pt's creatinine still increased from [facility] baseline.Routing to [facility] for review. Performing Organization Address City/[facility] Phone Number [facility] [address] [place] [address] [facility] * BASIC METABOLIC PANEL (12/31/2017) Sodium 135 [...] Labs stable.Pt taking Bumex 2mg BID.Routing to [facility] for review. OTHER OUTSIDE LAB Performing Organization Address City/State/Zipcode Phone Number OTHER OUTSIDE LAB * BASIC METABOLIC PANEL (12/27/2017) Sodium 139 [facility] Potassium 4.5 [facility] [place] Chloride 100 [facility] [place] CO2 26 [facility] [place] Blood Urea Nitrogen 62 (A) 9 - 27 [facility] [place] Creatinine 2.7 (A) 0.6 - 1.5 [facility] Glucose 110 [facility] [place] Calcium 9.6 [facility] [place] eGFR Non 24 (A) 59 [facility] [place] eGFR [facility] [place] Anion Gap 18 (A) 6 - 14 [facility] [place] Specimen Blood - Blood Narrative Performed At Pt currently taking Bumex 2mg BID, started on Wednesday.Will be making f/u appt [facility] [place] in the next couple of weeks. Performing Organization Address City/[facility]/Zipcode Phone Number [facility] [address] [place] [address] [phone] in this encounter Visit Diagnoses Diagnosis Pulmonary hypertension (HCC) - Primary Other chronic pulmonary heart diseases (HFpEF) heart failure with preserved ejection fraction (HCC)
--- OUTSIDE RECORDS SUMMARY | 2018-02-17 08:48 | XMS REPORT | Encounter Summary ---
Author Author [facility] Organization [facility] Address Unknown Phone Unavailable Care Team Providers Care Furniture And Bedding Inspector Name Role Phone Verna Ferro MD PCP Florentin Martinez MD 3 Reason for Visit * Reason Comments Rad Therapy Follow-up * Consult, Test & Treat Status Reason Specialty Diagnoses / Referred By Referred To Procedures Contact Contact Closed Specialty Radiation Therapy Diagnoses Kacie Alicia Radiation Services Squamous cell MD Abdullahi Therapy Required carcinoma of [address] and lung, [facility] [address] Rad unspecified [place] [address] Onc laterality (HCC) [place], [place] [address] [address] [place], [place] Phone: [phone] Phone: Encounter Details Date Type Department Care Team Description 12/21/2017 Office Visit Cancer Center - Radiation Mason Barber MD Squamous cell carcinoma Therapy [address] of lung, unspecified [place] and [place]ena Count Includes [facility] [place] [address] laterality (HCC) [place] [address] [phone] [place] [address] [phone] Social History Tobacco Use Types Packs/Day Years [...] catheterization to evaluate his pulmonary hypertension. His brown sourer has told him that any major surgery [...] ([facility] read) Final Diagnosis: A. Outside case "[id number]" (Date collected: 09/21/17): 1. Urothelium, "bladder tumor", [...] Please also see concurrent surgical pathology report ([id number]). Comment: Immunostains performed on the cell block [...] tissue, precluding further testing. Pursuant to the Forest Science Professor Program at the [facility] Pathology Department, selected slides [...] of the bladder s/p TURBT on 2. 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 Radiation Oncology Resident, PGY-3 [facility] Pager [phone] CC: A copy of this note has [...]
--- OUTSIDE RECORDS SUMMARY | 2018-02-17 08:49 | XMS REPORT | Encounter Summary ---
Author Author [facility] Organization [facility] Address Unknown Phone Unavailable Care Team Providers Care Project Manager Retail Name Role Phone Verna Ferro MD PCP Florentin Martinez MD 3 Encounter Details Date Type Department Care Team Description 11/23/2017 Procedure Pass Cardiac Catheterization Laboratory [address] [place] [address] Social History Tobacco Use Types Packs/Day Years [...]
--- OUTSIDE RECORDS SUMMARY | 2018-02-17 08:49 | XMS REPORT | Encounter Summary ---
Author Author [facility] Organization [facility] Address Unknown Phone Unavailable Care Team Providers Care Learning Coach Name Role Phone Verna Ferro MD PCP Florentin Martinez MD 3 Reason for Visit * Auth/Cert Status Reason Specialty Diagnoses / Referred By Referred To Procedures Contact Contact Diagnoses Lung nodule Lung nodule [R91.1] P rocedures VT BRONCHOSCOPY W/CPTR-ASST IMAGE-GUIDED NAVIGATION [facility] 3/> NODE STATION/STRUX BRONCHOSCOPY RIGID BRONCHOSCOPY WITH ULTRASOUND Encounter Details Date Type Department Care Team Description 12/01/2017 Surgery Gastrointenstinal Eduardo Brunson MD BRONCHOSCOPY RIGID Endoscopy [address] [place] [address] [place] [address] [phone] Social History Tobacco Use Types Packs/Day Years [...] or problems after your procedure please call [phone] between the hours of 8 a.m. until 4:30 p.m. After 4:30 p.m., holidays, or weekends call [phone] and ask for the Pulmonary Physician senior sales operations manager. in this encounter Medications at Time of [...] Relevant labs reviewed Eduardo Brunson MD Pager [phone] in this encounter Plan of Treatment Name [...] CDT procedure are in the results section. NON-JAPANESE TUTOR CYTOLOGY (BODY 12/01/2017 Results for this FLUIDS/TISSUE) 9:48 AM CDT procedure are in the results section. in this encounter Results * PROCEDURE RECORD-SCAN (12/02/2017 3:14 PM) Narrative Performed At Ordered by an unspecified provider. * TELEMETRY STRIPS-SCAN (12/02/2017 3:11 PM) Narrative Performed At Ordered by an unspecified provider. * SURGICAL PATHOLOGY (12/01/2017 4:33 PM) PATHOLOGY REPORT [facility] [employer] [facility] www.[email or web address] Department of Pathology and Laboratory Medicine [address] [place] [address] Surgical Pathology Office:[phone] :[phone] SURGICAL PATHOLOGY REPORT NAME: ASHLEY SCHMITT SURG PATH #: [id number] MR #: [id number] SPECIMEN CLASS: SR BILLING #: [id number] ALT ID #:LOCATION: [facility] DATE OF PROCEDURE: 12/01/2017 AGE:77 SEX: M DATE RECEIVED: 12/01/2017 : 1940TIME RECEIVED:16:33 PHYSICIAN: EDUARDO BRUNSON DATE OF REPORT: 12/03/2017 COPY TO:DATE OF PRINTIN12/03/2017 ############################## ############################## ############ Final Diagnosis: A. Respiratory and focal squamous epithelium, "right upper lobe mass biopsy": Minute fragment of markedly atypical cells, cannot exclude carcinoma. Please correlate with the concurrent cytology specimen ([id number]). See comment. Comment: Immunostains performed on block [...] of Pathology and Laboratory Medicine of the [facility] ([employer]) in compliance with CLIA'88 regulations.Some [...] of Pathology and Laboratory Medicine of the [facility].It has not been cleared or approved by the FDA.The FDA has determined that such clearance or approval is not necessary. Performing Organization Address City/State/Zipcode Phone Number LAB RESULTS * FINE NEEDLE ASPIRATE (FNA) (12/01/2017 3:31 PM) Cytology [facility] www.[email or web address] Department of Pathology and Laboratory Medicine [address] [place] [address] Surgical Pathology Office:[phone] :[phone] CYTOLOGY REPORT NAME: ASHLEY SCHMITT SURG PATH #: [id number] MR #: [id number] ALT ID #: BILLING #: [id number] LOCATION: [facility] DATE OF PROCEDURE: 12/01/2017 AGE: 77 [...] determination of adequacy was performed by the dental secretary, ET, on Diff-Quik stained slide(s). Pass 1 and 2 were not adequate for evaluation. Pass 3 was placed entirely in RPMI for cell block preparation. B.( 2 DQ direct smear, 2 Pap direct smear, 1 cell block) Rapid determination of adequacy was performed by the dental secretary, ET, on Diff-Quik stained slide(s). Pass 1 [...] Please also see concurrent surgical pathology report ([id number]). Comment: Immunostains performed on the cell block [...] tissue, precluding further testing. Pursuant to the Earring Maker Program at the [facility] Pathology Department, selected slides from this [...] Cell types evaluated: Tumor cells FDA status: In Home Caregiver Addendum Comment A CK20 immunostain on the [...] LAB 01/03/2018 Specimen Tissue Performing Organization Address City/[facility]/Zipcode Phone Number MAIN LAB [address] [place] [address] * CULTURE-TB (AFB) (12/01/2017 3:17 PM) Battery Name AFB CULTURE [facility] MAIN LAB Specimen Description TISSUE MAIN LAB RIGHT UPPER LOBE MASS Special Requests NONE MAIN LAB Culture NO GROWTH OF MYCOBACTERIA AT 6 MAIN LAB WEEKS Report Status FINAL MAIN LAB 01/17/2018 Specimen Tissue Performing Organization Address City/State/Zipcode Phone Number [facility] [address] [place] [address] * CT CHEST WO CONTRAST (12/01/2017 2:05 [...] and CABG with dense calcification of the cabazon coronary arteries. The thoracic aorta is normal [...] and CABG with dense calcification of the cabazon coronary arteries. The thoracic aorta is normal [...] RESULTS Procedure Date: 12/01/2017 1:50 PM CSN: [id number] Date of : 1940 Gender: Male Attending Physician: Eduardo Brunson MD Procedure: Bronchoscopy Indications: Right upper lobe mass Providers: Eduardo Brunson MD (Doctor), Milla Lou (Nurse), Vera Stewart, RN (Nurse), Bon Angel, Mold Tooling Technician (Mold Tooling Technician), Minal Vega, Mold Tooling Technician (Mold Tooling Technician) Referring Physician:Verna Ferro Medications: Tetricaine 0.25%/Epinephrine 0.003% [...] inadequate cellularity. Electromagnetic navigation bronchoscopy utilizing the [email or web address] system was performed. The CT scan was [...] questions. Performing Organization Address City/State/Zipcode Phone Number [facility] LAB [address] [place] [address] * NON-JAPANESE TUTOR CYTOLOGY (BODY FLUIDS/TISSUE) (12/01/2017 9:48 AM) Cytology [facility] [employer] [facility] www.[employer] Department of Pathology and Laboratory Medicine [address] [place] [address] Surgical Pathology Office:[phone] :[phone] CYTOLOGY REPORT NAME: ASHLEY SCHMITT CYTOLOGY #: [id number] MR #: [id number] ALT ID #: BILLING #: [id number] LOCATION: [facility] DATE OF PROCEDURE: 12/01/2017 AGE: 77 [...] cells. Please also see concurrent cytology report ([id number]) and surgical pathology report ([id number]). Attestation: By this signature, I attest that [...]
--- OUTSIDE RECORDS SUMMARY | 2018-02-17 08:49 | XMS REPORT | Encounter Summary ---
Author Author [facility] Organization [facility] Address Unknown Phone Unavailable Care Team Providers Care Metal Stamper Name Role Phone Verna Ferro MD PCP Florentin Martinez MD 3 Encounter Details Date Type Department Care Team Description 11/23/2017 Anesthesia Cardiac Catheterization Kim Emery SRNA Event Laboratory [address] [place] [address] Anesthesia Record Procedure Name Responsible [...] 1554 by Stylet, Direct laryngoscopy; Payton Galvez, SALESPERSON CORSETS Payton Galvez, SALESPERSON CORSETS Single-Lumen, Cuffed; 8.5mm; Mac; 4; Oral; 1-Full [...]
--- OUTSIDE RECORDS SUMMARY | 2018-02-17 08:49 | XMS REPORT | Encounter Summary ---
Author Author [facility] Organization [facility] Address Unknown Phone Unavailable Care Team Providers Care Security Officer Name Role Phone Verna Ferro MD PCP Florentin Martinez MD 3 Encounter Details Date Type Department Care Team Description 11/29/2017 Prep for Case XDD INT MED Eduardo Berg MD Lung nodule ( Primary Dx) Ortho and Medical [address] [facility] Pavilion Level 4B [address] [place] [address] [place] [address] [phone] Social History Tobacco Use Types Packs/Day Years [...]
--- OUTSIDE RECORDS SUMMARY | 2018-02-17 08:49 | XMS REPORT | Encounter Summary ---
Author Author [facility] Organization [facility] Address Unknown Phone Unavailable Care Team Providers Care Agent Broker Name Role Phone Verna Ferro MD PCP Florentin Martinez MD 3 Reason for Visit * Reason Comments Medical Question Encounter Details Date Type Department Care Team Description 11/25/2017 Telephone Cardiovascular Medicine Lacie Anderson LPN Medical Question [facility] [place] [address] Social History Tobacco Use Types Packs/Day [...]
--- OUTSIDE RECORDS SUMMARY | 2018-02-17 08:49 | XMS REPORT | Encounter Summary ---
Author Author [facility] Organization [facility] Address Unknown Phone Unavailable Care Team Providers Care Tiltrotor Crew Chief Name Role Phone Verna Ferro MD PCP Florentin Martinez MD 3 Reason for Visit * Auth/Cert Status Reason Specialty Diagnoses / Referred By Referred To Procedures Contact Contact Diagnoses Lung nodule Lung nodule [R91.1] P rocedures PA BRONCHOSCOPY W/CPTR-ASST IMAGE-GUIDED NAVIGATION PA BRNCC EBUS GUIDED SAMPL 3/> NODE STATION/STRUX BRONCHOSCOPY RIGID BRONCHOSCOPY WITH ULTRASOUND Encounter Details Date Type Department Care Team Description 12/01/2017 [facility] Eduardo Brunson MD Lung nodule Encounter Endoscopy [address] [place] [address] [place] [address] [phone] Social History Tobacco Use Types Packs/Day Years [...] or problems after your procedure please call [phone] between the hours of 8 a.m. until 4:30 p.m. After 4:30 p.m., holidays, or weekends call [phone] and ask for the Pulmonary Physician nurse's companion. in this encounter Medications at Time of [...] Relevant labs reviewed Eduardo Brunson MD Pager [phone] in this encounter Plan of Treatment Name [...] CDT procedure are in the results section. NON-INSTRUMENT AND ELECTRICAL TECHNICIAN CYTOLOGY (BODY 12/01/2017 Results for this FLUIDS/TISSUE) 9:48 AM CDT procedure are in the results section. in this encounter Results * PROCEDURE RECORD-SCAN (12/02/2017 3:14 PM) Narrative Performed At Ordered by an unspecified provider. * TELEMETRY STRIPS-SCAN (12/02/2017 3:11 PM) Narrative Performed At Ordered by an unspecified provider. * SURGICAL PATHOLOGY (12/01/2017 4:33 PM) PATHOLOGY REPORT [facility] [email or web address] Department of Pathology and Laboratory Medicine [address] [place] [address] Surgical Pathology Office:[phone] :[phone] SURGICAL PATHOLOGY REPORT NAME: ASHLEY SCHMITT SURG PATH #: [id number] MR #: [id number] SPECIMEN CLASS: SR BILLING #: [id number] ALT ID #:LOCATION: [facility] DATE OF PROCEDURE: 12/01/2017 AGE:77 SEX: M DATE RECEIVED: 12/01/2017 : 1940TIME RECEIVED:16:33 PHYSICIAN: EDUARDO BRUNSON DATE OF REPORT: 12/03/2017 COPY TO:DATE OF PRINTIN12/03/2017 ############################## ############################## ############ Final Diagnosis: A. Respiratory and focal squamous epithelium, "right upper lobe mass biopsy": Minute fragment of markedly atypical cells, cannot exclude carcinoma. Please correlate with the concurrent cytology specimen ([id number]). See comment. Comment: Immunostains performed on block [...] of Pathology and Laboratory Medicine of the [facility] ([employer]) in compliance with CLIA'88 regulations.Some [...] of Pathology and Laboratory Medicine of the [facility].It has not been cleared or approved by the FDA.The FDA has determined that such clearance or approval is not necessary. Performing Organization Address City/State/Zipcode Phone Number LAB RESULTS * FINE NEEDLE ASPIRATE (FNA) (12/01/2017 3:31 PM) Cytology [facility] [email or web address] Department of Pathology and Laboratory Medicine [address] [place] [address] Surgical Pathology Office:[phone] :[phone] CYTOLOGY REPORT NAME: ASHLEY SCHMITT SURG PATH #: [id number] MR #: [id number] ALT ID #: BILLING #: [id number] LOCATION: [facility] DATE OF PROCEDURE: 12/01/2017 AGE: 77 SEX: [...] determination of adequacy was performed by the finisher brush, ET, on Diff-Quik stained slide(s). Pass 1 and 2 were not adequate for evaluation. Pass 3 was placed entirely in RPMI for cell block preparation. B.( 2 DQ direct smear, 2 Pap direct smear, 1 cell block) Rapid determination of adequacy was performed by the finisher brush, ET, on Diff-Quik stained slide(s). Pass 1 [...] Please also see concurrent surgical pathology report ([id number]). Comment: Immunostains performed on the cell block [...] tissue, precluding further testing. Pursuant to the Weed Burner Program at the [facility] [...] Cell types evaluated: Tumor cells FDA status: Painter Foreman Addendum Comment A CK20 immunostain on the [...] Address City/State/Zipcode Phone Number MAIN LAB [address] [place] [address] * CULTURE-TB (AFB) (12/01/2017 3:17 PM) Battery Name AFB CULTURE [facility] MAIN LAB Specimen Description TISSUE MAIN LAB RIGHT UPPER LOBE MASS Special Requests NONE MAIN LAB Culture NO GROWTH OF MYCOBACTERIA AT 6 MAIN LAB WEEKS Report Status FINAL MAIN LAB 01/17/2018 Specimen Tissue Performing Organization Address City/State/Zipcode Phone Number [facility] [address] [place] [address] * CT CHEST WO CONTRAST (12/01/2017 2:05 [...] and CABG with dense calcification of the iqugmiut coronary arteries. The thoracic aorta is normal [...] and CABG with dense calcification of the iqugmiut coronary arteries. The thoracic aorta is normal [...] RESULTS Procedure Date: 12/01/2017 1:50 PM CSN: [id number] Date of : 1940 Gender: Male Attending Physician: Eduardo Brunson MD Procedure: Bronchoscopy Indications: Right upper lobe mass Providers: Eduardo Brunson MD (Doctor), Milla Lou (Nurse), Vera Stewart, RN (Nurse), Bon Angel, Store Clerk Checker (Store Clerk Checker), Minal Vega, Store Clerk Checker (Store Clerk Checker) Referring Physician:Verna Ferro Medications: Tetricaine 0.25%/Epinephrine 0.003% [...] inadequate cellularity. Electromagnetic navigation bronchoscopy utilizing the RedShelf system was performed. The CT scan was [...] questions. Performing Organization Address City/State/Zipcode Phone Number [facility] [address] [place] [address] * NON-INSTRUMENT AND ELECTRICAL TECHNICIAN CYTOLOGY (BODY FLUIDS/TISSUE) (12/01/2017 9:48 AM) Cytology [facility] [email or web address] Department of Pathology and Laboratory Medicine [address] [place] [address] Surgical Pathology Office:[phone] :[phone] CYTOLOGY REPORT NAME: ASHLEY SCHMITT CYTOLOGY #: [id number] MR #: [id number] ALT ID #: BILLING #: [id number] LOCATION: [facility] DATE OF PROCEDURE: 12/01/2017 AGE: 77 SEX: [...] cells. Please also see concurrent cytology report ([id number]) and surgical pathology report ([id number]). Attestation: By this signature, I attest that [...]
--- OUTSIDE RECORDS SUMMARY | 2018-02-17 08:50 | XMS REPORT | Encounter Summary ---
Author Author [facility] Organization [facility] Address Unknown Phone Unavailable Care Team Providers Care Screen Machine Operator Name Role Phone Verna Ferro MD PCP Florentin Martinez MD 3 Reason for Visit * Reason Comments Follow-up Phone Call Encounter Details Date Type Department Care Team Description 11/19/2017 Telephone [facility] Thoracic & Dori Pierce RN Follow-up Phone Call Cardiovascular Surgeons [address] [address] Social History Tobacco Use Types [...]
--- OUTSIDE RECORDS SUMMARY | 2018-02-17 08:50 | XMS REPORT | Encounter Summary ---
Author Author [facility] Organization [facility] Address Unknown Phone Unavailable Care Team Providers Care Hopper Operator Name Role Phone Verna Ferro MD PCP Florentin Martinez MD 3 Encounter Details Date Type Department Care Team Description 11/22/2017 Pre-Admit XDD CARDIOLOGY Hallie Ayala APRN Pulmonary hypertension Orders Only [address] (HCC) (Primary Dx); [address] [place] [address] preserved ejection [phone] fraction (HCC) Social History Tobacco Use Types [...]
--- OUTSIDE RECORDS SUMMARY | 2018-02-17 08:50 | XMS REPORT | Encounter Summary ---
Author Author [facility] Organization [facility] Address Unknown Phone Unavailable Care Team Providers Care Bottle House Pumper Name Role Phone Verna Ferro MD PCP Florentin Martinez MD 3 Reason for Visit * Reason Comments Follow-up Phone Call Encounter Details Date Type Department Care Team Description 11/17/2017 Telephone [facility] Dori Pierce RN Follow-up Phone Call Cardiovascular Surgeons [address] [address] Social History Tobacco Use Types [...]
--- OUTSIDE RECORDS SUMMARY | 2018-02-17 08:50 | XMS REPORT | Encounter Summary ---
Author Author [facility] Organization [facility] Address Unknown Phone Unavailable Care Team Providers Care Canine Service Teacher Name Role Phone Verna Ferro MD PCP Florentin Martinez MD 3 Reason for Visit * Auth/Cert Status Reason Specialty Diagnoses / Referred By Referred To Procedures Contact Contact Diagnoses Pulmonary hypertension (HCC) (HFpEF) heart failure with preserved ejection fraction (HCC) unknown Procedures [place] RIGHT HEART CATH O2 SATURATION & CARDIAC OUTPUT CATHETERIZATION RIGHT HEART Encounter Details Date Type Department Care Team Description 11/23/2017 [facility] Cardiac Catheterization Cath, Physician Pulmonary hypertension Encounter Laboratory S (HCC) [address] [place] [address] [address] [phone] [address] [place] [address] [phone] Social History Tobacco Use Types Packs/Day Years [...] HOURS (8:00 AM - 4:30 PM): Call [phone] and asked to be transferred to your discharge attending physician. - AFTER BUSINESS HOURS (4:30 PM - 8:00 AM, on weekends, or holidays): Call [phone] and ask the boring mill operator for metal to page the on-call doctor for the discharge attending physician. Discharging attending physician: AAMIR CARRILLO [[id number]] Cardiac Diet Limiting unhealthy fats and cholesterol [...] Return as directed [facility] Provider ABDULLAHI ALICIA [[id number]] Current Discharge Medication List CONTINUE these medications [...] H/P FROM 11/04/17 below. LADONNA Stone Pager [phone] Office Visit 11/04/2017 [facility] Florentin Martinez [...] tobacco, alcohol, or drugs. [facility]. 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 Family history mother at age 71 [...] fibrillation (HCC) Yes Coronary artery disease involving ramona heart, angina presence unspecified , unspecified vessel [...] biopsy. In summary, Would recommend echocardiogram at [facility], prior to surgical intervention. Additionally we [...] PM CDT Associated Order(s): CARDIAC CATH REPORT [facility] Cardiology at [facility] CARDIAC CATHETERIZATION REPORT Page 2 ASHLEY Soto : 1940 #: [id number] [facility] MR #/Billing ID #: [id number] / [id number] DATE: 11/23/2017 MONEY LAUNDERING INVESTIGATOR: Aamir Carrillo MD DICTATING PROVIDER: Aamir Carrillo [...] jugular vein was accessed, and ultimately, a 7-Tuvaluan sheath was inserted into the right internal [...] Dr. Alicia over the phone in the brine room laborer, and the plan will be to present the patient's case at tumor board for further discussion about optimization for surgery. The patient does have some increased risk for decompensation and heart failure progression. Please refer to my partner's note, Dr. Florentin Martinez, for additional details related to this patient. MD JOHN Sylvester/Dagmar /[id number] cc: - Abdullahi Alicia MD in this [...] Carrillo MD - 11/23/2017 2:48 PM CDT [facility] Cardiology at [facility] CARDIAC CATHETERIZATION REPORT Page 2 ASHLEY Soto : 1940 #: [id number] MR #/Billing ID #: [id number] / [id number] DATE: 11/23/2017 MONEY LAUNDERING INVESTIGATOR: Aamir Carrillo MD DICTATING PROVIDER: Aamir Carrillo [...] jugular vein was accessed, and ultimately, a 7-Tuvaluan sheath was inserted into the right internal [...] Dr. Alicia over the phone in the brine room laborer, and the plan will be to present the patient's case at tumor board for further discussion about optimization for surgery. The patient does have some increased risk for decompensation and heart failure progression. Please refer to my partner's note, Dr. Florentin Martinez, for additional details related to this patient. MD JOHN Sylvester/MedJanine /[id number] cc: - Abdullahi Alicia MD Performing Organization Address City/State/Zipcode Phone Number OTHER OUTSIDE LAB * O2HGB SAT-VENOUS POC (11/23/2017 2:30 PM) O2HGB SAT-Venous POC 60.2 55 - 71 % MAIN LAB Performing Organization Address City/State/Zipcode Phone Number MAIN LAB [address] [place] [address] * MAGNESIUM (11/23/2017 11:28 AM) Magnesium 1.9 1.6 - 2.6 mg/dL [facility] MAIN LAB Specimen Blood Performing Organization Address City/[facility]/Zipcode Phone Number MAIN LAB [address] [place] [address] * BASIC METABOLIC PANEL (11/23/2017 11:28 AM) [...] for questions. Specimen Blood Performing Organization Address City/[facility]/Zipcode Phone Number MAIN LAB [address] [place] [address] * CBC (11/23/2017 11:28 AM) White Blood [...] Organization Address City/State/Zipcode Phone Number MAIN LAB [address] [place] [address] in this encounter Visit Diagnoses Diagnosis Lung [...]
--- OUTSIDE RECORDS SUMMARY | 2018-02-17 08:50 | XMS REPORT | Encounter Summary ---
Author Author [facility] Organization [facility] Address Unknown Phone Unavailable Care Team Providers Care Plumber Helper Name Role Phone Verna Ferro MD PCP Florentin Martinez MD 3 Reason for Visit * Auth/Cert Status Reason Specialty Diagnoses / Referred By Referred To Procedures Contact Contact Diagnoses Pulmonary hypertension (HCC) (HFpEF) heart failure with preserved ejection fraction (HCC) unknown Procedures [place] RIGHT HEART CATH O2 SATURATION & CARDIAC OUTPUT CATHETERIZATION RIGHT HEART Encounter Details Date Type Department Care Team Description 11/23/2017 Surgery Cardiac Catheterization Aamir Carrillo MD CATHETERIZATION RIGHT Laboratory [address] HEART [address] [place] [address] [place] [address] [phone] Social History Tobacco Use Types Packs/Day Years [...] HOURS (8:00 AM - 4:30 PM): Call [phone] and asked to be transferred to your discharge attending physician. - AFTER BUSINESS HOURS (4:30 PM - 8:00 AM, on weekends, or holidays): Call [phone] and ask the microphone operator to page the on-call doctor for the discharge attending physician. Discharging attending physician: AAMIR CARRILLO [[id number]] Cardiac Diet Limiting unhealthy fats and cholesterol [...] Return as directed [facility] Provider ABDULLAHI ALICIA [[id number]] Current Discharge Medication List CONTINUE these medications [...] via Transport. Patient to follow up with [facility] Cardiology (MAC) or on-call physician [...] H/P FROM 11/04/17 below. LADONNA Stone Pager [phone] Office Visit 11/04/2017 [facility] Florentin Martinez [...] tobacco, alcohol, or drugs. He was a [facility] [employer] where he resides. 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 Family history mother at age 71 [...] fibrillation (HCC) Yes Coronary artery disease involving [place] heart, angina presence unspecified , unspecified vessel [...] biopsy. In summary, Would recommend echocardiogram at [facility], prior to surgical intervention. Additionally [...] PM CDT Associated Order(s): CARDIAC CATH REPORT [facility] Cardiology at [facility] CARDIAC CATHETERIZATION REPORT Page 2 ASHLEY Soto : 1940 #: [id number] [facility] MR #/Billing ID #: [id number] / [id number] DATE: 11/23/2017 ASSEMBLY MANAGER: Aamir Carrillo MD DICTATING PROVIDER: Aamir Carrillo [...] jugular vein was accessed, and ultimately, a 7-Singaporean sheath was inserted into the right internal [...] Dr. Alicia over the phone in the livestock laborer, and the plan will be to present the patient's case at tumor board for further discussion about optimization for surgery. The patient does have some increased risk for decompensation and heart failure progression. Please refer to my partner's note, Dr. Florentin Martinez, for additional details related to this patient. Aamir Carrillo MD AJS/MedQ /[id number] cc: - Abdullahi Alicia MD in this [...] Carrillo MD - 11/23/2017 2:48 PM CDT [facility] Cardiology at [facility] CARDIAC CATHETERIZATION REPORT Page 2 ASHLEY Soto : 1940 #: [id number] MR #/Billing ID #: [id number] / [id number] DATE: 11/23/2017 ASSEMBLY MANAGER: Aamir Carrillo MD DICTATING PROVIDER: Aamir Carrillo [...] jugular vein was accessed, and ultimately, a 7-Singaporean sheath was inserted into the right internal [...] Dr. Alicia over the phone in the livestock laborer, and the plan will be to present the patient's case at tumor board for further discussion about optimization for surgery. The patient does have some increased risk for decompensation and heart failure progression. Please refer to my partner's note, Dr. Florentin Martinez, for additional details related to this patient. MD JOHN Sylvester/Dagmar /[id number] cc: - Abdullahi Alicia MD Performing Organization Address City/State/Zipcode Phone Number OTHER OUTSIDE LAB * O2HGB SAT-VENOUS POC (11/23/2017 2:30 PM) O2HGB SAT-Venous POC 60.2 55 - 71 % MAIN LAB Performing Organization Address City/State/Zipcode Phone Number MAIN LAB [address] [place] [address] * MAGNESIUM (11/23/2017 11:28 AM) Magnesium 1.9 1.6 - 2.6 mg/dL [facility] MAIN LAB Specimen Blood Performing Organization Address City/[facility]/Zipcode Phone Number MAIN LAB [address] [place] [address] * BASIC METABOLIC PANEL (11/23/2017 11:28 AM) [...] for questions. Specimen Blood Performing Organization Address City/[facility]/Zipcode Phone Number MAIN LAB [address] [place] [address] * CBC (11/23/2017 11:28 AM) White Blood [...] Organization Address City/State/Zipcode Phone Number MAIN LAB [address] [place] [address] in this encounter Visit Diagnoses Diagnosis Pulmonary [...]
--- OUTSIDE RECORDS SUMMARY | 2018-02-17 08:50 | XMS REPORT | Encounter Summary ---
Author Author [facility] Organization [facility] Address Unknown Phone Unavailable Care Team Providers Care Insurance Analyst Name Role Phone Verna Ferro MD PCP Florentin Martinez MD 3 Encounter Details Date Type Department Care Team Description 11/17/2017 Prep for Case [facility], Abdullahi, Hilar mass (Primary Dx); [facility] [place] [facility] [id number] right lung [address] [place] [address] [place] [address] [phone] Social History Tobacco Use Types Packs/Day Years [...]
--- OUTSIDE RECORDS SUMMARY | 2018-02-17 08:50 | XMS REPORT | Encounter Summary ---
Author Author [facility] Organization [facility] Address Unknown Phone Unavailable Care Team Providers Care Power Shovel Mechanic Name Role Phone Verna Ferro MD PCP Florentin Martinez MD 3 Encounter Details Date Type Department Care Team Description 11/22/2017 Prep for Case Cardiovascular Medicine Ines Salgado RN Pulmonary hypertension [facility] [id number] (HCC) (Primary Dx); [address] (HFpEF) [place] [address] with preserved ejection [phone] fraction (HCC) Social History Tobacco Use Types [...]
--- NOTE | 2018-02-17 08:55 | Progress Note-Pre Operative ---
Pre-Operative Progress Note H&P Reviewed The H&P was reviewed, patient examined and no changes noted. Date Seen by Provider: Feb 17, 2018 Time Seen by Provider: 08:50 Date H&P Reviewed: Feb 17, 2018 Time H&P Reviewed: 08:55 Pre-Operative Diagnosis: Right lung cancer and bladder cancer DARLEEN EDUARDO APRN Feb 17, 2018 8:55 am
[2018-02-17 09:00] VITALS: BP 126/71
[2018-02-17] MEDS ORDERED: ACETAMINOPHEN 325 MG TABLET PO PRN (09:00)
[2018-02-17] MEDS ORDERED: HYDROcodone/APAP 5 MG/325 MG (LORTAB) TAB PO ONE ×2 (09:00→13:45)
[2018-02-17] MEDS ORDERED: ONDANSETRON 4 MG/2 ML (SDV) Z0FRAN IVP PRN ×2 (09:00→12:00)
[2018-02-17] MEDS ORDERED: fentaNYL INJECTION 100 MCG/2 ML AMP IVP PRN (09:00)
[2018-02-17] MEDS ORDERED: ceFAZolin INJECTION 1,000 MG in NS (IVPB) 50 ML IV ONE (09:00)
--- OUTSIDE RECORDS SUMMARY | 2018-02-17 09:32 | XMS REPORT | Continuity of Care Document ---
Author Author [facility] Organization [facility] Address Unknown Phone Unavailable Allergies Active Description Code Type Severity Reaction Onset Reported/Identified Relationship to Patient Clinical Status Yes amoxicillin [id number] Drug Allergy Moderate HIVES 09/13/2017 Yes nitroglycerin [id number] Drug Allergy Mild DECREASED BP 09/13/2017 Medications There is no data. Problems Date Dx Coded Attending Type Code Diagnosis Diagnosed By 04/29/2011 Ot V58.61 04/29/2011 Ot V58.69 04/29/2011 Ot V58.83 01/21/2014 CAREY CHOWDHURY MD Ot 038.9 SEPTICEMIA NOS 01/21/2014 CAREY CHOWDHURY [...] 788.20 RETENTION OF URINE NOS 01/21/2014 CAREY CHODWHURY MD Ot 909.1 LATE EFF NONMED SUBSTANC [...] Ot V45.81 AORTOCORONARY BYPASS 01/01/2015 ANTONY PINEDA PARKING ENFORCEMENT MANAGER Ot 719.06 01/04/2015 ANTONY PINEDA PARKING ENFORCEMENT MANAGER Ot 719.06 01/04/2015 ANTONY PINEDA PARKING ENFORCEMENT MANAGER Ot 719.06 01/17/2015 ANTONY PINEDA PARKING ENFORCEMENT MANAGER Ot 719.06 01/24/2015 ANTONY PINEDA PARKING ENFORCEMENT MANAGER Ot 719.06 03/05/2015 Ot J18.9 03/14/2015 Ot [...] ABDOMINAL PAIN, UNSPECIFIED SITE 09/13/2017 ANTONY PINEDA PARKING ENFORCEMENT MANAGER Ot 719.06 JOINT EFFUSION-L/LEG 09/13/2017 Ot J18.9 PNEUMONIA, UNSPECIFIED ORGANISM 09/13/2017 LUCIANA MACKENZIE, CAREY Torres Ot M54.5 LOW BACK PAIN 09/13/2017 GALI MACKENZIE, LNARE Torres Ot N40.0 BENIGN PROSTATIC HYPERPLASIA WITHOUT [...] NICKY 09/15/2017 CAREY CHOWDHURY MD Ot Z79.01 MCC (CURRENT) USE OF ANTICOAGULANT 09/16/2017 CAREY CHOWDHURY [...] MD Ot I25.10 ATHSCL HEART DISEASE OF [place] CORONARY 09/16/2017 CAREY CHOWDHURY MD Ot I48.0 [...] O 09/16/2017 CAREY CHOWDHURY MD Ot Z79.01 MCC (CURRENT) USE OF ANTICOAGULANT 09/16/2017 CAREY CHOWDHURY [...] MD Ot I25.10 ATHSCL HEART DISEASE OF [place] CORONARY 09/17/2017 CAREY CHOWDHURY MD Ot I48.0 [...] O 09/17/2017 CAREY CHOWDHURY MD Ot Z79.01 MCC (CURRENT) USE OF ANTICOAGULANT 09/17/2017 CAREY CHOWDHURY [...] MD Ot I25.10 ATHSCL HEART DISEASE OF [place] CORONARY 09/18/2017 CAREY CHOWDHURY MD Ot I48.0 [...] O 09/18/2017 CAREY CHOWDHURY MD Ot Z79.01 [employer] (CURRENT) USE OF ANTICOAGULANT 09/18/2017 CAREY CHOWDHURY [...] MD Ot I25.10 ATHSCL HEART DISEASE OF [place] CORONARY 09/19/2017 CAREY CHOWDHURY MD Ot I48.0 [...] O 09/19/2017 CAREY CHOWDHURY MD Ot Z79.01 MCC (CURRENT) USE OF ANTICOAGULANT 09/19/2017 CAREY CHOWDHURY [...] MD Ot I25.10 ATHSCL HEART DISEASE OF [place] CORONARY 09/20/2017 CAREY CHOWDHURY MD Ot I48.0 [...] O 09/20/2017 CAREY CHOWDHURY MD Ot Z79.01 [employer] (CURRENT) USE OF ANTICOAGULANT 09/20/2017 CAREY CHOWDHURY [...] MD Ot I25.10 ATHSCL HEART DISEASE OF [place] CORONARY 09/21/2017 CAREY CHOWDHURY MD Ot I48.0 [...] O 09/21/2017 CAREY CHOWDHURY MD Ot Z79.01 [employer] (CURRENT) USE OF ANTICOAGULANT 09/21/2017 CAREY CHOWDHURY [...] MD Ot I25.10 ATHSCL HEART DISEASE OF [place] CORONARY 09/22/2017 CAREY CHOWDHURY MD Ot I48.0 [...] O 09/22/2017 CAREY CHOWDHURY MD Ot Z79.01 [employer] (CURRENT) USE OF ANTICOAGULANT 09/22/2017 CAREY CHOWDHURY [...] MD Ot I25.10 ATHSCL HEART DISEASE OF [place] CORONARY 09/22/2017 CAREY CHOWDHURY MD Ot I48.0 [...] O 09/22/2017 CAREY CHOWDHURY MD Ot Z79.01 [employer] (CURRENT) USE OF ANTICOAGULANT 09/22/2017 CAREY CHOWDHURY [...] MD Ot I25.10 ATHSCL HEART DISEASE OF [place] CORONARY 09/23/2017 CAREY CHOWDHURY MD Ot I48.0 [...] O 09/23/2017 CAREY CHOWDHURY MD Ot Z79.01 MCC (CURRENT) USE OF ANTICOAGULANT 09/23/2017 CAREY CHOWDHURY [...] MD Ot I25.10 ATHSCL HEART DISEASE OF [place] CORONARY 09/23/2017 CAREY CHOWDHURY MD Ot I48.0 [...] O 09/23/2017 CAREY CHOWDHURY MD Ot Z79.01 [employer] [place] (CURRENT) USE OF ANTICOAGULANT 09/23/2017 CAREY CHOWDHURY [...] ABDOMINAL PAIN, UNSPECIFIED SITE 09/30/2017 ANTONY PINEDA PARKING ENFORCEMENT MANAGER Ot 719.06 JOINT EFFUSION-L/LEG 09/30/2017 Ot J18.9 [...] 10/06/2017 GODFREY WILL DO Ot Z79.899 OTHER [employer] [place] (CURRENT) DRUG THERAPY 10/06/2017 GODFREY WILL DO [...] 10/08/2017 GODFREY WILL DO Ot Z79.899 OTHER MCC (CURRENT) DRUG THERAPY 10/08/2017 GODFREY WILL DO [...] ABDOMINAL PAIN, UNSPECIFIED SITE 11/03/2017 ANTONY PINEDA PARKING ENFORCEMENT MANAGER Ot 719.06 JOINT EFFUSION-L/LEG 11/03/2017 Ot J18.9 [...] ABNORMAL FINDING OF NICKY 11/09/2017 ANTONY SCHWARTZ CRUSHER SETTER Ot 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 11/09/2017 ANTONY SCHWARTZ CRUSHER SETTER Ot R59.0 LOCALIZED ENLARGED LYMPH NODES 11/09/2017 ANTONY SCHWARTZ CRUSHER SETTER Ot R91.8 OTHER NONSPECIFIC ABNORMAL FINDING OF NICKY 11/11/2017 LAVERNE SUNSHINE Ot C67.9 MALIGNANT NEOPLASM OF BLAD[place], UNSPECIFI 11/16/2017 REINA BYRD MD Ot 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 11/16/2017 REINA BYRD MD Ot R91.8 OTHER NONSPECIFIC ABNORMAL FINDING OF NICKY 11/17/2017 GODFREY WILL DO Ot R91.8 OTHER NONSPECIFIC ABNORMAL FINDING OF NICKY 12/01/2017 ANTONY SCHWARTZ CRUSHER SETTER Ot 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 12/01/2017 ANTONY SCHWARTZ CRUSHER SETTER Ot R59.0 LOCALIZED ENLARGED LYMPH NODES 12/01/2017 ANTONY SCHWARTZ CRUSHER SETTER Ot R91.8 OTHER NONSPECIFIC ABNORMAL FINDING OF [...] FINDING OF NICKY 12/30/2017 OXAANTONY ASENCIO Ora CRUSHER SETTER Ot 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 12/30/2017 OXAANTONY ASENCIO Ora CRUSHER SETTER Ot R59.0 LOCALIZED ENLARGED LYMPH NODES 12/30/2017 OXANDANTONY RIVERA Ora CRUSHER SETTER Ot R91.8 OTHER NONSPECIFIC ABNORMAL FINDING OF [...] N Ot I25.10 ATHSCL HEART DISEASE OF [place] CORONARY 12/31/2017 LAVERNE SUNSHINE N Ot I27.20 PULMONARY HYPERTENSION, UNSPECIFIED 12/31/2017 LAVERNE SUNSHINE N Ot I48.2 CHRONIC ATRIAL FIBRILLATION 12/31/2017 LAVERNE SUNSHINE N Ot Z79.01 [employer] [place] (CURRENT) USE OF ANTICOAGULANT 01/04/2018 LAVERNE SUNSHINE [...] SUNSHINE Ot I25.10 ATHSCL HEART DISEASE OF [place] CORONARY 01/14/2018 LAVERNE SUNSHINE Mono Ot I27.20 PULMONARY HYPERTENSION, UNSPECIFIED 01/14/2018 LAVERNE SUNSHINE Mono Ot I48.2 CHRONIC ATRIAL FIBRILLATION 01/14/2018 LAVERNE SUNSHINE Ot Z79.01 MCC (CURRENT) USE OF ANTICOAGULANT 01/17/2018 LUCIANA MACKENZIE, CAREY Torres Ot 458.9 HYPOTENSION NOS 01/17/2018 LUCIANA MACKENZIE, CAREY Torres Ot 789.00 ABDOMINAL PAIN, UNSPECIFIED SITE 01/17/2018 ANTONY PINEDA PARKING ENFORCEMENT MANAGER Ot 719.06 JOINT EFFUSION-L/LEG 01/17/2018 Ot J18.9 [...] 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 01/17/2018 REINA BYRD MD Ot R91.8 OTHER NONSPECIFIC ABNORMAL FINDING OF NICKY 01/17/2018 ANTONY SCHWARTZ CRUSHER SETTER Ot 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 01/17/2018 ANTONY SCHWARTZ CRUSHER SETTER Ot R59.0 LOCALIZED ENLARGED LYMPH NODES 01/17/2018 ANOTNY SCHWARTZ CRUSHER SETTER Ot R91.8 OTHER NONSPECIFIC ABNORMAL FINDING OF NICKY 01/17/2018 LAVERNE SUNSHINE Mono Ot C34.11 MALIGNANT NEOPLASM OF UPPER LOBE, RIGHT 01/17/2018 BITA NICHOLASREHAN Mono Ot 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 01/17/2018 BITA NICHOLASREHAN Mono Ot 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 01/17/2018 BITA LAVERNE Villareal Ot I25.10 ATHSCL HEART DISEASE OF [place] CORONARY 01/17/2018 BITALAVERNE Ot I27.20 PULMONARY HYPERTENSION, UNSPECIFIED 01/17/2018 BITALAVERNE Ot I48.2 CHRONIC ATRIAL FIBRILLATION 01/17/2018 BITALAVERNE Ot Z79.01 MCC (CURRENT) USE OF ANTICOAGULANT 01/17/2018 BITALAVERNE Ot [...] HYPERTENSION 01/17/2018 GODFREY WILL DO Ot Z79.01 MCC (CURRENT) USE OF ANTICOAGULANT 01/17/2018 GODFREY WILL DO, Ot Z79.899 OTHER MCC (CURRENT) DRUG THERAPY 01/19/2018 LORENA MACKENZIE, AAMIR Lopez Ot I27.20 PULMONARY HYPERTENSION, UNSPECIFIED 01/19/2018 LORENA MACKENZIE, AAMIR Lopez Ot I50.30 UNSPECIFIED DIASTOLIC (CONGESTIVE) HEART 01/28/2018 BITA LAVERNE N Ot C34.90 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 01/28/2018 BITA NICHOLASREHAN N Ot 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 01/28/2018 BITA LAVERNE N Ot E88.9 METABOLIC DISORDER, UNSPECIFIED 01/28/2018 BITA, LAVERNE N Ot J44.9 CHRONIC OBSTRUCTIVE PULMONARY DISEASE, U 01/28/2018 BITA, LAVERNE N Ot N32.89 OTHER SPECIFIED DISORDERS OF BLADDER 01/28/2018 BITALAVERNE N Ot R91.8 OTHER NONSPECIFIC ABNORMAL FINDING OF NICKY 01/28/2018 BITA LAVERNE N Ot Z01.89 ENCOUNTER FOR OTHER SPECIFIED SPECIAL EX 02/02/2018 BITALAVERNE N Ot C34.90 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 02/02/2018 BITALAVERNE N Ot 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 02/02/2018 BITA LAVERNE N Ot E88.9 METABOLIC DISORDER, UNSPECIFIED 02/02/2018 BITA, LAVERNE N Ot J44.9 CHRONIC OBSTRUCTIVE PULMONARY DISEASE, U 02/02/2018 BITA, LAVERNE N Ot N32.89 OTHER SPECIFIED DISORDERS OF BLADDER 02/02/2018 BITA NICHOLASREHAN N Ot R91.8 OTHER NONSPECIFIC ABNORMAL FINDING OF NICKY 02/02/2018 BITA NICHOLASREHAN N Ot Z01.89 ENCOUNTER FOR OTHER SPECIFIED SPECIAL EX 02/04/2018 BITALAVERNE N Ot C34.11 MALIGNANT NEOPLASM OF UPPER LOBE, RIGHT 02/04/2018 LAVERNE SUNSHINE N Ot 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 02/04/2018 BITALAVERNE N Ot 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 02/04/2018 LAVERNE SUNSHINE N Ot I25.10 ATHSCL HEART DISEASE OF [place] CORONARY 02/04/2018 LAVERNE SUNSHINE N Ot I27.20 PULMONARY HYPERTENSION, UNSPECIFIED 02/04/2018 LAVERNE SUNSHINE N Ot I48.2 CHRONIC ATRIAL FIBRILLATION 02/04/2018 LAVERNE SUNSHINE N Ot Z51.0 ENCOUNTER FOR ANTINEOPLASTIC RADIATION T 02/04/2018 LAVERNE SUNSHINE Ot Z51.11 ENCOUNTER FOR ANTINEOPLASTIC CHEMOTHERAP 02/04/2018 LAVERNE SUNSHINE Ot Z79.01 [employer] (CURRENT) USE OF ANTICOAGULANT 02/04/2018 LUCIANA MCAKENZIE, CAREY Torres Ot 458.9 HYPOTENSION NOS 02/04/2018 LUCIANA MACKENZIE, CAREY Torres Ot 789.00 ABDOMINAL PAIN, UNSPECIFIED SITE 02/04/2018 ANTONY PINEDA PARKING ENFORCEMENT MANAGER Ot 719.06 JOINT EFFUSION-L/LEG 02/04/2018 Ot J18.9 PNEUMONIA, UNSPECIFIED ORGANISM 02/04/2018 LUCIANA MACKENZEI, CAREY Torres Ot M54.5 LOW BACK PAIN 02/04/2018 GALI MACKENZIE, LANRE Torres Ot N40.0 BENIGN PROSTATIC HYPERPLASIA WITHOUT LOW 02/04/2018 LANRE TALBERT MD Ot R31.9 HEMATURIA, UNSPECIFIED 02/04/2018 LUCIANA MACKENZIE, CAREY Torres Ot 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 02/04/2018 CAREY CHOWDHURY MD Ot R91.8 OTHER NONSPECIFIC ABNORMAL FINDING OF NICKY 02/04/2018 KANIKA MACKENZIE, MOOSE K Ot R91.8 OTHER NONSPECIFIC ABNORMAL FINDING OF NICKY 02/04/2018 REINA BYRD MD Ot 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 02/04/2018 REINA BYRD MD Ot R91.8 OTHER NONSPECIFIC ABNORMAL FINDING OF [place] 02/04/2018 ANTONY SCHWARTZ CRUSHER SETTER Ot 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 02/04/2018 ANTONY SCHWATRZ CRUSHER SETTER Ot R59.0 LOCALIZED ENLARGED LYMPH NODES 02/04/2018 ANTONY SCHWARTZ CRUSHER SETTER Ot R91.8 OTHER NONSPECIFIC ABNORMAL FINDING OF NICKY 02/04/2018 LAVERNE SUNSHINE Ot C34.90 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 02/04/2018 LAVERNE SUNSHINE Ot 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 02/04/2018 LAVERNE SUNSHINE Ot E88.9 METABOLIC DISORDER, UNSPECIFIED 02/04/2018 LAVERNE SUNSHINE Ot J44.9 CHRONIC OBSTRUCTIVE PULMONARY DISEASE, U 02/04/2018 LAVERNE SUNSHINE Ot N32.89 OTHER SPECIFIED DISORDERS OF BLADDER 02/04/2018 LAVERNE SUNSHINE Mono Ot R91.8 OTHER NONSPECIFIC ABNORMAL FINDING OF [place]ICK[place] 02/04/2018 LAVERNE SUNSHINE Mono Ot Z01.89 ENCOUNTER FOR OTHER SPECIFIED SPECIAL EX 02/04/2018 GODFREY WILL DO Ot C34.11 MALIGNANT NEOPLASM OF UPPER LOBE, RIGHT 02/04/2018 GODFREY WILL DO Ot 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 02/04/2018 GODFREY WILL DO Ot D50.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 02/04/2018 ZACHERY WILL DOSON M Ot I10 ESSENTIAL (PRIMARY) HYPERTENSION 02/04/2018 GODFREY WILL DO Ot Z79.01 MCC (CURRENT) USE OF ANTICOAGULANT 02/04/2018 GODFREY WILL DO Ot Z79.899 OTHER [employer] (CURRENT) DRUG THERAPY 02/04/2018 LORENA MACKENZIE, AAMIR Lopez Ot I27.20 PULMONARY HYPERTENSION, UNSPECIFIED 02/04/2018 LORENA MACKENZIE, AAMIR Lopez Ot I50.30 UNSPECIFIED DIASTOLIC (CONGESTIVE) HEART 02/06/2018 GODFREY WILL DO Ot C34.11 MALIGNANT NEOPLASM OF UPPER LOBE, RIGHT 02/06/2018 GODFREY WILL DO Ot 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 02/06/2018 GODFREY WILL DO M Ot D50.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 02/06/2018 GODFREY WILL DO M Ot I10 ESSENTIAL (PRIMARY) HYPERTENSION 02/06/2018 GODFREY WILL DO Ot Z79.01 MCC (CURRENT) USE OF ANTICOAGULANT 02/06/2018 GODFREY WILL DO Ot Z79.899 OTHER MCC (CURRENT) DRUG THERAPY 02/06/2018 GLO JALLOH MD Ot C34.11 MALIGNANT NEOPLASM OF UPPER LOBE, RIGHT 02/06/2018 GLO JALLOH MD Ot 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 02/06/2018 GLO JALLOH MD, Ot 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 02/06/2018 GLO JALLOH MD, Ot D50.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 02/06/2018 GLO JALLOH MD Ot I11.0 HYPERTENSIVE HEART DISEASE WITH HEART FA 02/06/2018 GLO JALLOH MD, Ot I25.10 ATHSCL HEART DISEASE OF [place] CORONARY 02/06/2018 GLO JALLOH MD, Ot I27.20 PULMONARY HYPERTENSION, UNSPECIFIED 02/06/2018 GLO JALLOH MD, Ot I48.2 CHRONIC ATRIAL FIBRILLATION 02/06/2018 GLO JALLOH MD, Ot I50.30 UNSPECIFIED DIASTOLIC (CONGESTIVE) HEART 02/06/2018 GLO JALLOH MD, Ot Z51.0 ENCOUNTER FOR ANTINEOPLASTIC RADIATION T 02/06/2018 GLO JALLOH MD, Ot Z79.01 MCC (CURRENT) USE OF ANTICOAGULANT 02/06/2018 GLO JALLOH MD, Ot Z79.899 OTHER MCC (CURRENT) DRUG THERAPY 02/06/2018 GLO JALLOH MD, Ot Z80.0 FAMILY HISTORY OF MALIGNANT NEOPLASM OF 02/06/2018 GLO JALLOH MD, Ot Z82.49 FAMILY HX OF ISCHEM HEART DIS AND OTH DI 02/06/2018 GLO JALLOH MD, Ot Z87.19 PERSONAL HISTORY OF OTHER DISEASES OF TH 02/06/2018 GLO JALLOH MD, Ot Z88.0 ALLERGY STATUS TO PENICILLIN 02/06/2018 GLO JALLOH MD, Ot Z90.89 ACQUIRED ABSENCE OF OTHER ORGANS 02/06/2018 GLO JALLOH MD, Ot Z92.21 PERSONAL HISTORY OF ANTINEOPLASTIC CHEMO 02/06/2018 GLO JALLOH MD, Ot Z95.1 PRESENCE OF AORTOCORONARY BYPASS GRAFT 02/07/2018 GLO JALLOH MD, Ot C34.11 MALIGNANT NEOPLASM OF UPPER LOBE, RIGHT 02/07/2018 GLO JALLOH MD, Ot 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 02/07/2018 GLO JALLOH MD, Ot 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 02/07/2018 GLO JALLOH MD, Ot D50.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 02/07/2018 GLO JALLOH MD, Ot I11.0 HYPERTENSIVE HEART DISEASE WITH HEART FA 02/07/2018 GLO JALLOH MD, Ot I25.10 ATHSCL HEART DISEASE OF [place] CORONARY 02/07/2018 GLO JALLOH MD, Ot I27.20 PULMONARY HYPERTENSION, UNSPECIFIED 02/07/2018 GLO JALLOH MD, Ot I48.2 CHRONIC ATRIAL FIBRILLATION 02/07/2018 GLO JALLOH MD, Ot I50.30 UNSPECIFIED DIASTOLIC (CONGESTIVE) HEART 02/07/2018 GLO JALLOH MD, Ot Z79.01 [employer] [place] (CURRENT) USE OF ANTICOAGULANT 02/07/2018 GLO JALLOH MD, Ot Z79.899 OTHER MCC (CURRENT) DRUG THERAPY 02/07/2018 GLO JALLOH MD, Ot Z80.0 FAMILY HISTORY OF MALIGNANT NEOPLASM OF 02/07/2018 GLO JALLOH MD, Ot Z82.49 FAMILY HX OF ISCHEM HEART DIS AND OTH DI 02/07/2018 GLO JALLOH MD, Ot Z87.19 PERSONAL HISTORY OF OTHER DISEASES OF TH 02/07/2018 GLO JALLOH MD, Ot Z88.0 ALLERGY STATUS TO PENICILLIN 02/07/2018 GLO JALLOH MD, Ot Z90.89 ACQUIRED ABSENCE OF OTHER ORGANS 02/07/2018 GLO JALLOH MD, Ot Z92.21 PERSONAL HISTORY OF ANTINEOPLASTIC CHEMO 02/07/2018 GLO JALLOH MD, Ot Z95.1 PRESENCE OF AORTOCORONARY BYPASS GRAFT 02/07/2018 GLO JALLOH MD, Ot C34.11 MALIGNANT NEOPLASM OF UPPER LOBE, RIGHT 02/07/2018 GLO JALLOH MD, Ot 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 02/07/2018 GLO JALLOH MD, Ot 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 02/07/2018 GLO JALLOH MD, Ot D50.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 02/07/2018 GLO JALLOH MD, Ot I11.0 HYPERTENSIVE HEART DISEASE WITH HEART FA 02/07/2018 GLO JALLOH MD, Ot I25.10 ATHSCL HEART DISEASE OF [place] CORONARY 02/07/2018 GLO JALLOH MD, Ot I27.20 PULMONARY HYPERTENSION, UNSPECIFIED 02/07/2018 GLO JALLOH MD, Ot I48.2 CHRONIC ATRIAL FIBRILLATION 02/07/2018 GLO JALLOH MD, Ot I50.30 UNSPECIFIED DIASTOLIC (CONGESTIVE) HEART 02/07/2018 GLO JALLOH MD, Ot Z51.0 ENCOUNTER FOR ANTINEOPLASTIC RADIATION T 02/07/2018 XUN MD, CLAROS-ONI Ot Z79.01 MCC (CURRENT) USE OF ANTICOAGULANT 02/07/2018 GLO JALLOH MD, Ot Z79.899 OTHER [employer] (CURRENT) DRUG THERAPY 02/07/2018 GLO JALLOH MD, Ot Z80.0 FAMILY HISTORY OF MALIGNANT NEOPLASM OF 02/07/2018 GLO JALLOH MD, Ot Z82.49 FAMILY HX OF ISCHEM HEART DIS AND OTH DI 02/07/2018 GLO JALLOH MD, Ot Z87.19 PERSONAL HISTORY OF OTHER DISEASES OF TH 02/07/2018 GLO JALLOH MD, Ot Z88.0 ALLERGY STATUS TO PENICILLIN 02/07/2018 GLO JALLOH MD, Ot Z90.89 ACQUIRED ABSENCE OF OTHER ORGANS 02/07/2018 GLO JALLOH MD, Ot Z92.21 PERSONAL HISTORY OF ANTINEOPLASTIC CHEMO 02/07/2018 GLO JALLOH MD, Ot Z95.1 PRESENCE OF AORTOCORONARY BYPASS GRAFT 02/09/2018 GODFREY WILL DO, Ot C34.11 MALIGNANT NEOPLASM OF UPPER LOBE, RIGHT 02/09/2018 GODFREY WILL DO, Ot 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 02/09/2018 GODFREY WILL DO, Ot D50.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 02/09/2018 GODFREY WILL DO, Ot I10 ESSENTIAL (PRIMARY) HYPERTENSION 02/09/2018 GODFREY WILL DO, Ot Z79.01 MCC (CURRENT) USE OF ANTICOAGULANT 02/09/2018 GODFREY WILL DO, Ot Z79.899 OTHER [employer] (CURRENT) DRUG THERAPY 02/10/2018 ELENI CHIANG MD, Ot C34.90 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 02/10/2018 ELENI CHIANG MD, Ot C67.9 MALIGNANT NEOPLASM OF BLADDER, UNSPECIFI 02/10/2018 ELENI CHIANG MD Ot I10 ESSENTIAL (PRIMARY) HYPERTENSION 02/10/2018 ELENI CHIANG MD, Ot I25.10 ATHSCL HEART DISEASE OF [place] CORONARY 02/10/2018 ELENI CHIANG MD, Ot N13.9 OBSTRUCTIVE AND REFLUX UROPATHY, UNSPECI 02/10/2018 ELENI CHIANG MD, Ot Z79.01 [employer] (CURRENT) USE OF ANTICOAGULANT 02/10/2018 ELENI CHIANG MD Ot Z80.0 FAMILY HISTORY OF MALIGNANT NEOPLASM OF 02/10/2018 ELENI CHIANG MD Ot Z82.49 FAMILY HX OF ISCHEM HEART DIS AND OTH DI 02/10/2018 ELENI CHIANG MD Ot Z87.19 PERSONAL HISTORY OF OTHER DISEASES OF TH 02/10/2018 ELENI CHIANG MD, Ot Z88.0 ALLERGY STATUS TO PENICILLIN 02/10/2018 ELENI CHIANG MD, Ot Z90.89 ACQUIRED ABSENCE OF OTHER ORGANS 02/10/2018 ELENI CHIANG MD, Ot Z92.21 PERSONAL HISTORY OF ANTINEOPLASTIC CHEMO 02/10/2018 ELENI CHIANG MD, Ot Z95.1 PRESENCE OF AORTOCORONARY BYPASS GRAFT 02/11/2018 CAREY CHOWDHURY MD Ot A41.9 SEPSIS, UNSPECIFIED ORGANISM 02/11/2018 CAREY CHOWDHURY MD Ot C34.11 MALIGNANT NEOPLASM OF UPPER LOBE, RIGHT 02/11/2018 CAREY CHOWDHURY MD Ot C67.9 MALIGNANT NEOPLASM OF BLADDER, UNSPECIFI 02/11/2018 CAREY CHOWDHURY MD Ot D61.818 OTHER PANCYTOPENIA 02/11/2018 CAREY CHOWDHURY MD Ot E78.00 PURE HYPERCHOLESTEROLEMIA, UNSPECIFIED 02/11/2018 CAREY CHOWDHURY MD Ot E83.42 HYPOMAGNESEMIA 02/11/2018 CAREY CHOWDHURY MD Ot E86.0 DEHYDRATION 02/11/2018 CAREY CHOWDHURY MD Ot E87.6 HYPOKALEMIA 02/11/2018 CAREY CHOWDHURY MD Ot G57.93 UNSPECIFIED MONONEUROPATHY OF BILATERAL 02/11/2018 CAREY CHOWDHURY MD Ot H91.90 UNSPECIFIED HEARING LOSS, UNSPECIFIED EA 02/11/2018 CAREY CHOWDHURY MD Ot I10 ESSENTIAL (PRIMARY) HYPERTENSION 02/11/2018 CAREY CHOWDHURY MD Ot I25.10 ATHSCL HEART DISEASE OF [place] CORONARY 02/11/2018 CAREY CHOWDHURY MD Ot I27.20 PULMONARY HYPERTENSION, UNSPECIFIED 02/11/2018 CAREY CHOWDHURY MD Ot I35.0 NONRHEUMATIC AORTIC (VALVE) STENOSIS 02/11/2018 CAREY CHOWDHURY MD, Ot I48.0 PAROXYSMAL ATRIAL FIBRILLATION 02/11/2018 CAREY CHOWDHURY MD, Ot I95.9 HYPOTENSION, UNSPECIFIED 02/11/2018 CAREY CHOWDHURY MD, Ot K44.9 DIAPHRAGMATIC HERNIA WITHOUT OBSTRUCTION 02/11/2018 CAREY CHOWDHURY MD Ot M19.91 PRIMARY OSTEOARTHRITIS, UNSPECIFIED SITE 02/11/2018 CAREY CHOWDHURY MD, Ot N39.0 URINARY TRACT INFECTION, SITE NOT SPECIF 02/11/2018 CAREY CHOWDHURY MD Ot R11.0 NAUSEA 02/11/2018 CAREY CHOWDHURY MD, Ot R14.0 ABDOMINAL DISTENSION (GASEOUS) 02/11/2018 CAREY CHOWDHURY MD Ot R19.7 DIARRHEA, UNSPECIFIED 02/11/2018 CAREY CHOWDHURY MD, Ot R21 RASH AND OTHER NONSPECIFIC SKIN ERUPTION 02/11/2018 CAREY CHOWDHURY MD, Ot R33.9 RETENTION OF URINE, UNSPECIFIED 02/11/2018 CAREY CHOWDHURY MD Ot R53.1 WEAKNESS 02/11/2018 CAREY CHOWDHURY MD, Ot T83.511A I/I REACT D/T INDWELLING URETHRAL CATHET 02/11/2018 CAREY CHOWDHURY MD, Ot Z79.01 MCC (CURRENT) USE OF ANTICOAGULANT 02/11/2018 CAREY CHOWDHURY MD Ot Z79.82 MCC (CURRENT) USE OF ASPIRIN 02/11/2018 CAREY CHOWDHURY MD, Ot Z87.891 PERSONAL HISTORY OF NICOTINE DEPENDENCE 02/11/2018 CAREY CHOWDHURY MD Ot Z95.1 PRESENCE OF AORTOCORONARY BYPASS GRAFT 02/11/2018 GLO JALLOH MD Ot C34.11 MALIGNANT NEOPLASM OF UPPER LOBE, RIGHT 02/11/2018 GLO JALLOH MD, Ot 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 02/11/2018 GLO JALLOH MD, Ot 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 02/11/2018 GLO AJLLOH MD, Ot D50.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 02/11/2018 GLO JALLOH MD, Ot I11.0 HYPERTENSIVE HEART DISEASE WITH HEART FA 02/11/2018 GLO JALLOH MD, Ot I25.10 ATHSCL HEART DISEASE OF [place] CORONARY 02/11/2018 GLO JALLOH MD, Ot I27.20 PULMONARY HYPERTENSION, UNSPECIFIED 02/11/2018 GLO JALLOH MD, Ot I48.2 CHRONIC ATRIAL FIBRILLATION 02/11/2018 GLO JALLOH MD, Ot I50.30 UNSPECIFIED DIASTOLIC (CONGESTIVE) HEART 02/11/2018 GLO JALLOH MD, Ot Z51.0 ENCOUNTER FOR ANTINEOPLASTIC RADIATION T 02/11/2018 GLO JALLOH MD, Ot Z79.01 MCC (CURRENT) USE OF ANTICOAGULANT 02/11/2018 GLO JALLOH MD, Ot Z79.899 OTHER [facility] (CURRENT) DRUG THERAPY 02/11/2018 GLO JALLOH MD, Ot Z80.0 FAMILY HISTORY OF MALIGNANT NEOPLASM OF 02/11/2018 GLO JALLOH MD, Ot Z82.49 FAMILY HX OF ISCHEM HEART DIS AND OTH DI 02/11/2018 GLO JALLOH MD, Ot Z87.19 PERSONAL HISTORY OF OTHER DISEASES OF 02/11/2018 GLO JALLOH MD, Ot Z88.0 ALLERGY STATUS TO PENICILLIN 02/11/2018 GLO JALLOH MD, Ot Z90.89 ACQUIRED ABSENCE OF OTHER ORGANS 02/11/2018 GLO JALLOH MD, Ot Z92.21 PERSONAL HISTORY OF ANTINEOPLASTIC CHEMO 02/11/2018 GLO JALLOH MD, Ot Z95.1 PRESENCE OF AORTOCORONARY BYPASS GRAFT Procedures Code Description Performed By Performed On 47.01 LAPAROSCOP APPENDECTOMY 01/18/2014 [id number] EXCISION OF BLADDER, ENDO , DIAGN 09/21/2017 [...] RED CELLS LEUKO REDUCED AS1 NOT AVAILABLE NR Blood type T Indirect antibody screen panel - 09/13/17 14:22 ABO+Rh group AP NR Transfusion band number [id number] [facility] Blood group antibody screen NEGATIVE [facility] Whole blood hemoglobin and hematocrit panel - [...] ABO+Rh group AP NRG Transfusion band number [id number] NRG Blood group antibody screen NEGATIVE NRG [...] CELLS LEUKO REDUCED AS1 TRANSFUSED 09/20/17 1118 [facility] Blood type T Indirect antibody screen panel - 09/20/17 08:54 ABO+Rh group AP [facility] [place] Transfusion band number [id number] [facility] [place] Blood group antibody screen NEGATIVE [facility] [place] Methicillin resistant Staphylococcus aureus (MRSA) screening culture - 09:32 Methicillin resistant Staphylococcus aureus (MRSA) screening culture NEG [facility] [place] Complete blood count (CBC) with automated white [...] - 10/06/17 08:15 QUANTITY OF GROWTH . NRG Mycobacterium species detection by organism specific culture SEE COMMEN [facility] Fungus culture - 10/06/17 08:15 FUNGUS REPORT NO FUNGUS GROWTH OBSERVED [facility] [id number] - 11/08/17 10:24 Serum or plasma urea [...] plasma calcium measurement (mass/volume) 10.1 mg/dL 8.5-10.1 Complete urinalysis with reflex to culture - 02/04/18 13:50 Urine color determination YELLOW NRG Urine clarity determination CLEAR NRG Urine pH measurement by test strip 6.5 5-9 Specific gravity of urine by test strip 1.005 1.016- 1.022 Urine protein assay by test strip, semi-quantitative NEGATIVE NEGATIVE Urine glucose detection by automated test strip NEGATIVE NEGATIVE Erythrocytes detection in urine sediment by light microscopy NEGATIVE NEGATIVE Urine ketones detection by automated test strip NEGATIVE NEGATIVE Urine nitrite detection by test strip NEGATIVE NEGATIVE Urine total bilirubin detection by test strip NEGATIVE NEGATIVE Urine urobilinogen measurement by automated test strip (mass/volume) NORMAL NORMAL Urine leukocyte esterase detection by dipstick NEGATIVE NEGATIVE Automated urine sediment erythrocyte count by microscopy (number/high power field) NONE NRG Automated urine sediment leukocyte count by microscopy (number/high power field ) NONE NRG Bacteria detection in urine sediment by light microscopy NEGATIVE NRG Squamous epithelial cells detection in urine sediment by light microscopy NONE NRG Crystals detection in urine sediment by light microscopy NONE NRG Casts detection in urine sediment by light microscopy NONE NRG Mucus detection in urine sediment by light microscopy NEGATIVE NRG Complete urinalysis with reflex to culture NO NRG Complete urinalysis with reflex to culture - 02/08/18 09:44 Urine color determination YELLOW NRG Urine clarity determination SLIGHTLY CLOUDY NRG Urine pH measurement by test strip 5 5-9 Specific gravity of urine by test strip 1.020 1.016- 1.022 Urine protein assay by test strip, semi-quantitative 3+ NEGATIVE Urine glucose detection by automated test strip NEGATIVE NEGATIVE Erythrocytes detection in urine sediment by light microscopy 5+ NEGATIVE Urine ketones detection by automated test strip NEGATIVE NEGATIVE Urine nitrite detection by test strip NEGATIVE NEGATIVE Urine total bilirubin detection by test strip NEGATIVE NEGATIVE Urine urobilinogen measurement by automated test strip (mass/volume) NORMAL NORMAL Urine leukocyte esterase detection by dipstick 3+ NEGATIVE Automated urine sediment erythrocyte count by microscopy (number/high power field) > [HPF] NRG Automated urine sediment leukocyte count by microscopy (number/high power field ) > [HPF] NRG Bacteria detection in urine sediment by light microscopy MODERATE NRG Squamous epithelial cells detection in urine sediment by light microscopy RARE NRG Crystals detection in urine sediment by light microscopy NONE NRG Casts detection in urine sediment by light microscopy NONE NRG Mucus detection in urine sediment by light microscopy NEGATIVE NRG Complete urinalysis with reflex to culture YES NRG Bacterial urine culture - 02/08/18 09:44 Bacterial urine culture [id number] NRG COLONY COUNT >100,000/ML NRG FTX;REPORTABLE SUSCEPTIBILITY REPORTED 02-10-2018, 1405. [facility] RML Sensitivity Panel - 02/08/18 09:44 Gentamicin susceptibility test by minimum inhibitory concentration < = NRG Trimethoprim/sulfamethoxazole susceptibility test by minimum inhibitoryconcentration S NRG Levofloxacin susceptibility test by minimum inhibitory concentration <= NRG Ampicillin susceptibility test by minimum inhibitory concentration R NRG Cefazolin susceptibility test by minimum inhibitory concentration R NRG Ceftriaxone susceptibility test by minimum inhibitory concentration <= NRG Ciprofloxacin susceptibility test by minimum inhibitory concentration <= NRG Meropenem susceptibility test by minimum inhibitory concentration < = NRG Nitrofurantoin susceptibility test by minimum inhibitory concentration <= NRG Amoxicillin and clavulanate potassium susc JEAN R NRG Complete blood count (CBC) with automated white blood cell (WBC) differential - 02/08/18 09:50 Blood leukocytes automated count (number/volume) 1.8 10*3/uL 4.3-11.0 Blood erythrocytes automated count (number/volume) 3.13 10*6/uL 4.35-5.85 Venous blood hemoglobin measurement (mass/volume) 8.6 g/dL 13.3-17.7 Blood hematocrit (volume fraction) 24 % 40-54 Automated erythrocyte mean corpuscular volume 78 [foz_us] 80-99 Automated erythrocyte mean corpuscular hemoglobin (mass per erythrocyte) 28 pg 25-34 Automated erythrocyte mean corpuscular hemoglobin concentration measurement ( mass/volume) 35 g/dL 32-36 Automated erythrocyte distribution width ratio 17.5 % 10.0-14.5 Automated blood platelet count (count/volume) 206 10*3/uL 130-400 Automated blood platelet mean volume measurement 10.5 [foz_us] 7.4-10.4 Automated blood neutrophils/100 leukocytes 63 % 42-75 Automated blood lymphocytes/100 leukocytes 9 % 12-44 Blood monocytes/100 leukocytes 27 % 0-12 Automated blood eosinophils/100 leukocytes 1 % 0-10 Automated blood basophils/100 leukocytes 0 % 0-10 Blood neutrophils automated count (number/volume) 1.1 10*3 1.8-7.8 Blood lymphocytes automated count (number/volume) 0.2 10*3 1.0-4.0 Blood monocytes automated count (number/volume) 0.5 10*3 0.0-1.0 Automated eosinophil count 0.0 10*3/uL 0.0-0.3 Automated blood basophil count (count/volume) 0.0 10*3/uL 0.0-0.1 Comprehensive metabolic panel - 02/08/18 09:50 Serum or plasma sodium measurement (moles/volume) 141 mmol/L 135-145 Serum or plasma potassium measurement (moles/volume) 3.0 mmol/L 3.6-5.0 Serum or plasma chloride measurement (moles/volume) 106 mmol/L 98-107 Carbon dioxide 23 mmol/L 21-32 Serum or plasma anion gap determination (moles/volume) 12 mmol/L 5-14 Serum or plasma urea nitrogen measurement (mass/volume) 42 mg/dL 7-18 Serum or plasma creatinine measurement (mass/volume) 1.95 mg/dL 0.60-1.30 Serum or plasma urea nitrogen/creatinine mass ratio 22 NRG Serum or plasma creatinine measurement with calculation of estimated glomerular filtration rate 34 NRG Serum or plasma glucose measurement (mass/volume) 106 mg/dL 70-105 Serum or plasma calcium measurement (mass/volume) 7.5 mg/dL 8.5-10.1 Serum or plasma total bilirubin measurement (mass/volume) 1.0 mg/dL 0.1-1.0 Serum or plasma alkaline phosphatase measurement (enzymatic activity/volume) 31 U/L 40-136 Serum or plasma aspartate aminotransferase measurement (enzymatic activity/ volume) 20 U/L 5-34 Serum or plasma alanine aminotransferase measurement (enzymatic activity/volume ) 17 U/L 0-55 Serum or plasma protein measurement (mass/volume) 6.0 g/dL 6.4-8.2 Serum or plasma albumin measurement (mass/volume) 3.1 g/dL 3.2-4.5 CALCIUM CORRECTED 8.2 mg/dL 8.5-10.1 Magnesium - 02/08/18 09:50 Magnesium 1.7 mg/dL 1.8-2.4 Serum or plasma amylase measurement (enzymatic activity/volume) - 02/08/18 09: 50 Serum or plasma amylase measurement (enzymatic activity/volume) 64 U /L 25-125 Lipase - 02/08/18 09:50 Lipase 33 U/L 8-78 Blood manual differential performed detection - 02/08/18 09:50 Blood monocytes/100 leukocytes 17 % NRG Manual blood segmented neutrophils/100 leukocytes 51 % NRG Blood band neutrophils/100 leukocytes 21 % NRG Manual blood lymphocytes/100 leukocytes 9 % NRG Manual eosinophils/100 leukocytes in nose 1 % NRG Manual blood basophils/100 leukocytes 0 % NRG Blood anisocytosis detection by light microscopy SLIGHT NRG Blood ovalocytes detection by light microscopy SLIGHT NRG Blood microcytes detection by light microscopy SLIGHT NRG Manual blood myelocytes/100 leukocytes 1 % NRG Influenza virus A and B antigen detection - 02/08/18 11:40 FLU RESULT NEGATIVE FOR INFLUENZA A AND B ANTIGENS BY IA NRG Blood lactic acid measurement (moles/volume) - 02/08/18 11:45 Blood lactic acid measurement (moles/volume) 1.05 mmol/L 0.50-2.00 Bacterial blood culture - 02/08/18 11:45 Bacterial blood culture NG NRG Bacterial blood culture - 02/08/18 11:55 Bacterial blood culture NG NRG C DIFFICILE AG + TOXIN A/B. - 02/08/18 21:50 RESULTS NEGATIVE FOR ANTIGEN AND TOXIN A/B [facility] Complete blood count (CBC) with automated white blood cell (WBC) differential - 02/09/18 05:45 Blood leukocytes automated count (number/volume) 2.7 10*3/uL 4.3-11.0 Blood erythrocytes automated count (number/volume) 3.01 10*6/uL 4.35-5.85 Venous blood hemoglobin measurement (mass/volume) 7.9 g/dL 13.3-17.7 Blood hematocrit (volume fraction) 24 % 40-54 Automated erythrocyte mean corpuscular volume 78 [foz_us] 80-99 Automated erythrocyte mean corpuscular hemoglobin (mass per erythrocyte) 26 pg 25-34 Automated erythrocyte mean corpuscular hemoglobin concentration measurement ( mass/volume) 34 g/dL 32-36 Automated erythrocyte distribution width ratio 17.8 % 10.0-14.5 Automated blood platelet count (count/volume) 236 10*3/uL 130-400 Automated blood platelet mean volume measurement 10.1 [foz_us] 7.4-10.4 Automated blood neutrophils/100 leukocytes 66 % 42-75 Automated blood lymphocytes/100 leukocytes 11 % 12-44 Blood monocytes/100 leukocytes 23 % 0-12 Automated blood eosinophils/100 leukocytes 1 % 0-10 Automated blood basophils/100 leukocytes 0 % 0-10 Blood neutrophils automated count (number/volume) 1.8 10*3 1.8-7.8 Blood lymphocytes automated count (number/volume) 0.3 10*3 1.0-4.0 Blood monocytes automated count (number/volume) 0.6 10*3 0.0-1.0 Automated eosinophil count 0.0 10*3/uL 0.0-0.3 Automated blood basophil count (count/volume) 0.0 10*3/uL 0.0-0.1 Comprehensive metabolic panel - 02/09/18 05:45 Serum or plasma sodium measurement (moles/volume) 139 mmol/L 135-145 Serum or plasma potassium measurement (moles/volume) 3.6 mmol/L 3.6-5.0 Serum or plasma chloride measurement (moles/volume) 109 mmol/L 98-107 Carbon dioxide 20 mmol/L 21-32 Serum or plasma anion gap determination (moles/volume) 10 mmol/L 5-14 Serum or plasma urea nitrogen measurement (mass/volume) 41 mg/dL 7-18 Serum or plasma creatinine measurement (mass/volume) 1.89 mg/dL 0.60-1.30 Serum or plasma urea nitrogen/creatinine mass ratio 22 NRG Serum or plasma creatinine measurement with calculation of estimated glomerular filtration rate 35 NRG Serum or plasma glucose measurement (mass/volume) 105 mg/dL 70-105 Serum or plasma calcium measurement (mass/volume) 7.8 mg/dL 8.5-10.1 Serum or plasma total bilirubin measurement (mass/volume) 0.8 mg/dL 0.1-1.0 Serum or plasma alkaline phosphatase measurement (enzymatic activity/volume) 32 U/L 40-136 Serum or plasma aspartate aminotransferase measurement (enzymatic activity/ volume) 19 U/L 5-34 Serum or plasma alanine aminotransferase measurement (enzymatic activity/volume ) 19 U/L 0-55 Serum or plasma protein measurement (mass/volume) 5.8 g/dL 6.4-8.2 Serum or plasma albumin measurement (mass/volume) 3.0 g/dL 3.2-4.5 CALCIUM CORRECTED 8.6 mg/dL 8.5-10.1 Magnesium - 02/09/18 05:45 Magnesium 1.9 mg/dL 1.8-2.4 PT panel in platelet poor plasma by coagulation assay - 02/09/18 07:24 Prothrombin time (PT) in platelet poor plasma by coagulation assay > s 12.2-14.7 INR in platelet poor plasma or blood by coagulation assay TNP 0.8-1.4 PT panel in platelet poor plasma by coagulation assay - 02/09/18 14:10 Prothrombin time (PT) in platelet poor plasma by coagulation assay 86.4 s 12.2-14.7 INR in platelet poor plasma or blood by coagulation assay 10.9 0.8-1.4 Automated blood complete blood count (hemogram) panel - 02/10/18 06:40 Blood leukocytes automated count (number/volume) 3.1 10*3/uL 4.3-11.0 Blood erythrocytes automated count (number/volume) 2.72 10*6/uL 4.35-5.85 Venous blood hemoglobin measurement (mass/volume) 7.4 g/dL 13.3-17.7 Blood hematocrit (volume fraction) 22 % 40-54 Automated erythrocyte mean corpuscular volume 79 [foz_us] 80-99 Automated erythrocyte mean corpuscular hemoglobin (mass per erythrocyte) 27 pg 25-34 Automated erythrocyte mean corpuscular hemoglobin concentration measurement ( mass/volume) 34 g/dL 32-36 Automated erythrocyte distribution width ratio 17.8 % 10.0-14.5 Automated blood platelet count (count/volume) 241 10*3/uL 130-400 Automated blood platelet mean volume measurement 10.7 [foz_us] 7.4-10.4 PT panel in platelet poor plasma by coagulation assay - 02/10/18 06:40 Prothrombin time (PT) in platelet poor plasma by coagulation assay 36.0 s 12.2-14.7 INR in platelet poor plasma or blood by coagulation assay 3.6 0.8-1.4 Whole blood basic metabolic panel - 02/10/18 06:40 Serum or plasma sodium measurement (moles/volume) 139 mmol/L 135-145 Serum or plasma potassium measurement (moles/volume) 3.4 mmol/L 3.6-5.0 Serum or plasma chloride measurement (moles/volume) 112 mmol/L 98-107 Carbon dioxide 17 mmol/L 21-32 Serum or plasma anion gap determination (moles/volume) 10 mmol/L 5-14 Serum or plasma urea nitrogen measurement (mass/volume) 33 mg/dL 7-18 Serum or plasma creatinine measurement (mass/volume) 1.64 mg/dL 0.60-1.30 Serum or plasma urea nitrogen/creatinine mass ratio 20 NRG Serum or plasma creatinine measurement with calculation of estimated glomerular filtration rate 41 NRG Serum or plasma glucose measurement (mass/volume) 90 mg/dL 70-105 Serum or plasma calcium measurement (mass/volume) 8.0 mg/dL 8.5-10.1 RED CELLS LEUKO REDUCED AS1 - 02/10/18 09:05 RED CELLS LEUKO REDUCED AS1 NOT AVAILABLE NRG Blood type T Indirect antibody screen panel - 02/10/18 09:05 ABO+Rh group AP NR Transfusion band number [id number] NR Blood group antibody screen NEGATIVE NR Automated blood complete blood count (hemogram) panel - 02/11/18 05:40 Blood leukocytes automated count (number/volume) 4.3 10*3/uL 4.3-11.0 Blood erythrocytes automated count (number/volume) 3.57 10*6/uL 4.35-5.85 Venous blood hemoglobin measurement (mass/volume) 9.7 g/dL 13.3-17.7 Blood hematocrit (volume fraction) 28 % 40-54 Automated erythrocyte mean corpuscular volume 79 [foz_us] 80-99 Automated erythrocyte mean corpuscular hemoglobin (mass per erythrocyte) 27 pg 25-34 Automated erythrocyte mean corpuscular hemoglobin concentration measurement ( mass/volume) 34 g/dL 32-36 Automated erythrocyte distribution width ratio 17.7 % 10.0-14.5 Automated blood platelet count (count/volume) 284 10*3/uL 130-400 Automated blood platelet mean volume measurement 9.9 [foz_us] 7.4-10.4 Whole blood basic metabolic panel - 02/11/18 05:40 Serum or plasma sodium measurement (moles/volume) 141 mmol/L 135-145 Serum or plasma potassium measurement (moles/volume) 3.5 mmol/L 3.6-5.0 Serum or plasma chloride measurement (moles/volume) 114 mmol/L 98-107 Carbon dioxide 19 mmol/L 21-32 Serum or plasma anion gap determination (moles/volume) 8 mmol/L 5-14 Serum or plasma urea nitrogen measurement (mass/volume) 24 mg/dL 7-18 Serum or plasma creatinine measurement (mass/volume) 1.39 mg/dL 0.60-1.30 Serum or plasma urea nitrogen/creatinine mass ratio 17 NRG Serum or plasma creatinine measurement with calculation of estimated glomerular filtration rate 50 NRG Serum or plasma glucose measurement (mass/volume) 91 mg/dL 70-105 Serum or plasma calcium measurement (mass/volume) 8.2 mg/dL 8.5-10.1 PT panel in platelet poor plasma by coagulation assay - 02/11/18 05:40 Prothrombin time (PT) in platelet poor plasma by coagulation assay 27.6 s 12.2-14.7 INR in platelet poor plasma or blood by coagulation assay 2.6 0.8-1.4 Encounters ACCT No. Visit Date/Time Discharge Status Pt. Type Provider Facility Loc./Unit Complaint [id number] 02/08/2018 11:18:00 02/11/2018 12:15:00 DIS Outpatient LUCIANA MACKENZIE, CAREY Torres [facility] 4TH SEPSIS;UTI;BLADDER CANCER ON CHEMO RADIATION;- [id number] 02/07/2018 01:02:00 02/07/2018 23:59:59 CLS Preadmit GODFREY WILL DO [facility] LAB R91.8 [id number] 02/04/2018 12:08:00 02/06/2018 00:01:00 DIS Outpatient SHUBHAM MACKENZIE, GLO [facility] ONC [id number] 01/12/2018 08:11:00 02/06/2018 00:01:00 DIS Outpatient GODFREY WILL DO [facility] LAB R91.8 [id number] 02/04/2018 13:18:00 02/04/2018 14:47:00 DIS Outpatient АНДРЕЙ MACKENZIE, ELENI Mcintosh [facility] ER TROUBLE URINATING [id number] 02/03/2018 07:41:00 02/04/2018 09:08:00 DIS Outpatient LAVERNE SUNSHINE [facility] ONC [id number] 01/17/2018 11:01:00 01/17/2018 23:59:59 CLS Outpatient LORENA MACKENZIE, AAMIR Lopez [facility] LAB [id number] 01/04/2018 12:03:00 01/04/2018 23:59:59 CLS Outpatient LAVERNE SUNSHINE [facility] RAD BLADDER CA,SQUAMOUS CELL CARCINOMA LUNG [id number] 10/01/2017 12:11:00 12/30/2017 00:01:00 DIS Outpatient GODFREY WILL DO [facility] LAB R91.8 [id number] 11/08/2017 15:47:00 11/08/2017 23:59:59 CLS Outpatient ANTONY SCHWARTZ APRN [facility] RAD HILAR MASS,LUNG MASS [id number] 11/08/2017 10:09:00 11/08/2017 23:59:59 CLS Outpatient KANIKA MACKENZIE, MOOSE Pena [facility] RAD LUNG MASS, HILAR MASS [id number] 11/08/2017 09:43:00 11/08/2017 23:59:59 CLS Outpatient ROCHELLE MACKENZIE, REINA Torres [facility] LAB ATRIAL FIBRILLATION [id number] 11/02/2017 16:33:00 11/02/2017 23:59:59 CLS Preadmit KANIKA MACKENZIE, MOOSE Pena [facility] RAD LUNG MASS, HILAR MAS [id number] 10/11/2017 08:45:00 10/11/2017 23:59:59 CLS Outpatient BITA LAVERNE N [facility] ONC [id number] 10/07/2017 12:00:00 10/07/2017 23:59:59 CLS Preadmit GALI MACKENZIE, LANRE Torres [facility] CARD CA BLADDER [id number] 10/06/2017 06:58:00 10/06/2017 10:40:00 DIS Outpatient GODFREY WILL DO [facility] ENDO LUNG MASS/BLADDER CANCER [id number] 10/05/2017 06:10:00 10/05/2017 10:00:00 DIS Outpatient GODFREY WILL DO [facility] PREOP EBUS [id number] 09/28/2017 08:37:00 09/28/2017 23:59:59 CLS Outpatient CAREY CHOWDHURY MD [facility] RAD RT LUNG MASS,BLADDER TUMOR [id number] 09/13/2017 12:03:00 09/23/2017 14:42:00 DIS Inpatient ACREY CHOWDHURY MD [facility] 4TH RENAL FAILURE,URINARY RETENTION [id number] 04/22/2017 12:33:00 04/22/2017 23:59:59 CLS Outpatient LANRE TALBERT MD [facility] RAD HEMATURIA [id number] 08/21/2015 08:29:00 08/21/2015 23:59:59 CLS Outpatient CAREY CHOWDHURY MD [facility] RAD LOW BACK PAIN [id number] 12/28/2014 11:10:00 12/28/2014 23:59:59 CLS Outpatient ANTONY PINEDA [facility] RAD L KNEE PAIN, SWELLING [id number] 02/14/2014 13:57:00 02/14/2014 23:59:59 CLS Outpatient CAREY CHOWDHURY MD [facility] ABD PAIN/HTN [id number] 01/18/2014 12:18:00 01/21/2014 14:00:00 DIS Inpatient CAREY CHOWDHURY MD [facility] SURGICAL ABD PAIN [id number] 02/17/2018 08:00:00 PEN Preadmit NEHEMIAH DILLON MD [facility] LUNG CANCER, BLADDER CANCER [id number] 02/16/2018 15:47:00 ACT Outpatient NEHEMIAH DILLON MD [facility] PREOP LUNG CANCER,BLADDER CANCER [id number] 02/16/2018 08:31:00 ACT Outpatient LAVERNE SUNSHINE [facility] ONC [id number] 08/21/2015 08:27:00 Document Registration [id number] 05/01/2015 15:50:00 Document Registration [id number] 02/12/2015 15:12:00 Document Registration [id number] 06/29/2012 09:12:00 Document Registration [id number] 03/17/2012 11:19:00 Document Registration [id number] 10/30/2011 11:22:00 Document Registration [id number] 01/29/2011 15:53:00 Document Registration [id number] 01/29/2011 11:17:00 Document Registration [id number] 01/29/2011 10:42:00 Document Registration [id number] 03/04/2017 23:43:51 03/04/2017 23:59:59 CLS Outpatient [id number] 12/28/2014 11:11:52 ACT Document Registration
[2018-02-17] MEDS ORDERED: HEParin (CENTRAL IV FLUSH) 500 UNIT/5 ML SYR ONE (09:43)
[2018-02-17] MEDS ORDERED: LIDOCAINE 1% INJ 20 ML 20 ML VIAL ONE (09:43)
[2018-02-17] MEDS ORDERED: MIDAZOLAM 2 MG/2 ML (VERSED) VIAL ONE (09:46)
[2018-02-17] MEDS ORDERED: fentaNYL INJECTION 100 MCG/2 ML AMP ONE (09:46)
[2018-02-17] MEDS ORDERED: PROPOFOL INJECTION 50 ML IV ONE (09:46)
[2018-02-17] MEDS ORDERED: FLUT9.9S16 NS (10:02)
[2018-02-17] MEDS ORDERED: CARV6.252 PO (10:02)
[2018-02-17] MEDS ORDERED: WARF-48 PO (10:02)
[2018-02-17] MEDS ORDERED: HYDR-3870 PO (10:02)
[2018-02-17] MEDS ORDERED: TAMS0.4C2 PO (10:02)
[2018-02-17] MEDS ORDERED: VALS320T15 PO (10:02)
[2018-02-17] MEDS ORDERED: LACTATED RINGERS 1,000 ML IV PRN (10:11)
--- NOTE | 2018-02-17 11:36 | Progress Note-Post Operative ---
Post-Operative Progess Note Surgeon (s)/Feed Project Engineer (s) Surgeon NEHEMIAH DILLON MD Feed Project Engineer: none Pre-Operative Diagnosis Right lung cancer and bladder cancer Post-Operative Diagnosis same Procedure & Operative Findings Date of Procedure 02/17/18 Procedure Performed/Findings left subclavian groshong implantable catheter placement under flouroscopy. Anesthesia Type MAC with local Estimated Blood Loss Estimated blood loss (mL): minimal Specimens/Packing Specimens Removed none NEHEMIAH DILLON MD Feb 17, 2018 11:35 am
[2018-02-17] MEDS ORDERED: HYDR-34 PO (11:37)
--- NOTE | 2018-02-17 11:40 | Discharge Inst-Surgical ---
D/C Lap Instructions-WILMA New, Converted, or Re-Newed RX: RX on Chart Follow Up Appt in 2 weeks Activity as tolerated Regular Diet Symptoms to Report: Fever over 101 degree F, Nausea/Vomiting Infection Signs and Symptoms to report: Increased redness, Foul odor of wound, Increased drainage Bathing instructions: May shower Operative Area Clean/Dry; Keep incision clean/dry If any problems/questions: Contact your physician or go to Emergency Room NEHEMIAH DILLON MD Feb 17, 2018 11:40 am
--- NOTE | 2018-02-17 11:52 | Anesthesia-General Post-Op ---
MAC Patient Condition Mental Status/LOC: Same as Preop Cardiovascular: Satisfactory Nausea/Vomiting: Absent Respiratory: Satisfactory Pain: Controlled Complications: Absent Post Op Complications Complications None Follow Up Care/Instructions Patient Instructions None needed. Anesthesiology Discharge Order Discharge Order Patient is doing well, no complaints, stable vital signs, no apparent adverse anesthesia problems. No complications reported per nursing. WILLIAM BEE CRNA Feb 17, 2018 11:52
[2018-02-17] MEDS ORDERED: morphine INJ 10 MG/ML 1ML (SYR OR VIAL) IVP ONE (12:00)
[2018-02-17 12:25] VITALS: BP 105/62
--- NOTE | 2018-02-17 12:42 | OPERATIVE REPORT ---
DATE OF SERVICE: 02/17/2018 ATTENDING PRIMARY CARE PHYSICIAN: Dr. Ferro. 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 POSTOPERATIVE DIAGNOSIS: Metastatic bladder transitional cell cancer. PROCEDURE: Placement of left subclavian Groshong implantable catheter under fluoroscopy. SURGEON: Nehemiah Dillon MD [employer] PRODUCT CONSULTANT: Dominic Padron APRN. ANESTHESIA: Monitored anesthesia care with local. ESTIMATED BLOOD LOSS: Minimal. FINDINGS: Catheter tip at superior vena caval - right atrial junction. DISPOSITION: The patient tolerated the procedure well. INDICATIONS: The patient is a 77-year-old male, who was found to have a bladder transitional cell cancer and underwent transurethral resection; however, this appeared to be invading the muscularis layer. 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 He has undergone recent radiation therapy as well as chemotherapy. The initial response from what he said appears to be good and will need to undergo further chemotherapy and will require Groshong implantable catheter. DESCRIPTION OF PROCEDURE: The patient was brought to the operating room, laid supine on the table. After adequate IV pain and sedative medications and monitored anesthesia care, the neck and chest were prepped and draped in standard surgical fashion. A 1% lidocaine with epinephrine was then used to anesthetize the overlying skin in the left subclavian region. The left subclavian vein was then cannulated withdrawing the venous blood. The guidewire was then inserted under fluoroscopy. The cannulating needle removed and a skin incision made using a 15 blade. A dilator and sheath were then placed under direct visualization over the guidewire. The dilator and guidewire were then removed and the Groshong catheter placed through the sheath until the catheter tip was at the superior vena caval - right atrial junction. The sheath was then removed. The inner wire within the catheter removed and the catheter cut down to size and port placed onto the catheter. We then proceeded with creation of the subcutaneous reservoir. Skin incision was extended laterally using a 15 blade. A plane was then created between the subcutaneous fat and the anterior pectoralis fascia using blunt dissection as well as electrocautery. The port was then placed into the reservoir and sutured to the anterior pectoralis fascia using interrupted 3-0 Vicryl sutures. Subcutaneous tissue was then closed using 3-0 Vicryl interrupted sutures and the skin was closed using 4-0 Monocryl running subcuticular suture. Wound was then cleaned and covered with Dermabond. The patient tolerated the procedure well. We will get a post-procedure chest x-ray and once confirmation of the placement of the catheter was confirmed, the catheter may be accessed and used at any time. Job ID: [id number] DocumentID: [id number] Dictated Date: 02/17/2018 11:54:16 Cafeteria Director Date: 02/17/2018 12:42:10 Dictated By: NEHEMIAH DILLON MD
--- NOTE | 2018-02-17 12:47 | Diagnostic Imaging Report ---
INDICATION: Catheter placement. TECHNIQUE: Single view chest at 12:08 PM. CORRELATION STUDY: 02/08/2018 FINDINGS: Since prior study, left-sided Wrsddt-d-Vrzb catheter has been placed, tip projected over the expected location of the cavoatrial junction. Patient is post sternotomy and coronary artery bypass. Cardiac enlargement. Vasculature is slightly prominent but less severe from prior study. There is abnormal rounded mass-like density in the right mid lung appearing slightly more prominent from prior study. Minimal areas of basilar atelectasis. No appreciable pneumothorax. Multiple surgical clips in soft tissues of the neck. IMPRESSION: 1. Left-sided central line has been placed, tip projected over the cavoatrial junction. 2. Cardiac enlargement without evidence of overt failure. 3. Mass in the right midlung does appear to be somewhat more prominent compared to prior study. This may be owing to difference in imaging technique. Dictated by: Dictated on workstation # [id number]
[2018-02-17 12:55] VITALS: BP 142/76
[2018-02-17] MEDS ORDERED: HYDROcodone/APAP 5 MG/325 MG (LORTAB) TAB ONE (13:38)
[2018-02-17 13:50] VITALS: BP 142/76
--- NOTE | 2018-02-17 16:33 | Diagnostic Imaging Report ---
INDICATION: Groshong catheter placement Intraoperative fluoroscopy views during Groshong catheter placement per Dr. Graf. Single fluoroscopic view demonstrates a central venous catheter in place with a left-sided approach with the tip overlying the mid SVC. 5 seconds of fluoroscopy time was used in surgery. IMPRESSION: Intraoperative fluoroscopy view demonstrates central venous catheter placement as above with tip overlying the mid SVC. Dictated by: Dictated on workstation # [id number]
== END 2018-02-17 14:10 | disposition home or self-care (01) ==
LOC: SDC 08:44
PROVIDERS: ATTEND Surgery
DX: C34.91 Malignant neoplasm of unspecified part of right bronchus or lung (principal); C67.9 Malignant neoplasm of bladder, unspecified; C79.01 Secondary malignant neoplasm of right kidney and renal pelvis; I13.0 Hypertensive heart and chronic kidney disease with heart failure and stage 1 through stage 4 chronic kidney disease, or unspecified chronic kidney disease; I50.9 Heart failure, unspecified; N18.3 Chronic kidney disease, stage 3 (moderate); I48.91 Unspecified atrial fibrillation; I25.10 Atherosclerotic heart disease of native coronary artery without angina pectoris; G57.93 Unspecified mononeuropathy of bilateral lower limbs; I27.20 Pulmonary hypertension, unspecified; I73.9 Peripheral vascular disease, unspecified; Z87.891 Personal history of nicotine dependence; Z95.5 Presence of coronary angioplasty implant and graft; Z79.01 Long term (current) use of anticoagulants; Z79.82 Long term (current) use of aspirin; Z79.899 Other long term (current) drug therapy
CPT/HCPCS: 71045; 87081

== ENCOUNTER 2018-03-04 09:11 | Inpatient (IN) | payer MEDICARE, OTHER ==
[2018-03-04] VITALS (19 sets, daily range): BP systolic 94–182; BP diastolic 45–92
[~2018-03-04] VITALS: Ht 175.3 cm; Wt 73.1 kg
[~2018-03-04 09:11] MED LIST changes: +CARV6.252 PO; +FLUT9.9S16 NS; +HYDR-34 PO; +HYDR-3870 PO
--- OUTSIDE RECORDS SUMMARY | 2018-03-04 09:16 | XMS REPORT | Encounter Summary ---
Author Author [facility] Organization [facility] Address Unknown Phone Unavailable Care Team Providers Care Lawn Service Supervisor Name Role Phone Verna Ferro MD PCP Florentin Martinez MD 3 Reason for Visit * Reason Comments Labs Only BMP Encounter Details Date Type Department Care Team Description 01/04/2018 Documentation Cardiovascular Medicine Marylou Wilhelm RN Labs Only (BMP) [facility] [place] [id number] Social History Tobacco Use Types Packs/Day Years [...]
--- OUTSIDE RECORDS SUMMARY | 2018-03-04 09:16 | XMS REPORT | Encounter Summary ---
Author Author [facility] Organization [facility] Address Unknown Phone Unavailable Care Team Providers Care Clinical Laboratory Director Name Role Phone Verna Ferro MD PCP Florentin Martinez MD 3 Reason for Referral * Status Reason Specialty Diagnoses / Referred By Referred To Procedures Contact Contact New Request Diagnoses Akhil Gonzalez, (HFpEF) heart MD failure with [address] ejection [place] 40[address] fraction (HCC) [place], [place] Chronic [address] diastolic heart Phone: failure, NYHA [phone] class 3 (HCC) Fax: Pulmonary [phone] hypertension (HCC) Mitral valve insufficiency, unspecified etiology P rocedures REQUEST FOR CARDIOLOGY APPOINTMENT Reason for Visit * Reason Comments Post-hospital Follow Up 11/23/17 [facility] s/p RHC New To Provider Hospital Only Encounter Details Date Type Department Care Team Description 12/21/2017 Office Visit Cardiovascular Medicine Akhil Gonzalez MD Post-hospital Follow Up [facility] [place] [address] 3rd [address] (11/23/17 [facility] s/p RHC ); fl [address]ys [address] [place] 4023 New To Provider ([address] [address] Only ) [place] [address] [phone] Social History Tobacco Use Types Packs/Day Years [...] 11/29/2017 Added automatically from request for surgery [id number] Mass of upper lobe of right lung 11/17/2017 Added automatically from request for surgery [id number] (HFpEF) heart failure with preserved ejection fraction [...] Gonzalez MD Advanced Heart Failure & Transplant Job Placement Specialist stockkeeper Director Division of Advanced Heart Failure & Cardiac Transplantation UNOS Primary Transplant Physician Design Specialist, Heart Transplantation [facility] [email or web address] Current Medications (including today's revisions) ALPRAZolam (XANAX) [...]
--- OUTSIDE RECORDS SUMMARY | 2018-03-04 09:16 | XMS REPORT | Encounter Summary ---
Author Author [facility] Organization [facility] Address Unknown Phone Unavailable Care Team Providers Care Formula Bottler Name Role Phone Verna Ferro MD PCP Florentin Martinez MD 3 Reason for Visit * Reason Comments Heme/Onc Care New Patient * Consult, Test & Treat Status Reason Specialty Diagnoses / Referred By Referred To Procedures Contact Contact No Auth Needed Specialty Oncology Diagnoses Kacie Alicia - Deepika Cl Services Squamous cell MD Abdullahi Exm/Proc Rm Required carcinoma of [address] [facility] lung, [address] [facility] unspecified [place] [address] laterality (HCC) [place], [place] [address] [address] [place], [place] Phone: Encounter Details Date Type Department Care Team Description 12/21/2017 Office Visit [facility] Abdullahi Alicia , Squamous cell carcinoma Cancer [place] [facility] Exam MD of right lung (HCC) [facility] [address] (Primary Dx) [address] [place] [address] [place] [address] [phone] Abdon Romero MD [address] [place], [place] [id number] Social History Tobacco Use Types Packs/Day Years [...] catheterization to evaluate his pulmonary hypertension. His soldering technician has told him that any major surgery [...] catheterization to evaluate his pulmonary hypertension. His soldering technician has told him that any major surgery [...] with Dr. Wilber Lawson MD oncologist in [facility]. He will follow up with Dr. Lawson. [...] with Dr. Wilber Lawson MD oncologist in [facility]. He will follow up with Dr. Lawson. 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
--- OUTSIDE RECORDS SUMMARY | 2018-03-04 09:16 | XMS REPORT | Encounter Summary ---
Author Author [facility] Organization [facility] Address Unknown Phone Unavailable Care Team Providers Care Product Ambassador Name Role Phone Verna Ferro MD PCP Florentin Martinez MD 3 Reason for Visit * Reason Comments Medication Follow-up Diuretics Encounter Details Date Type Department Care Team Description 12/23/2017 Telephone Cardiovascular Medicine Marylou Wilhelm, product marketing intern Follow-up [facility]1100 (Diuretics) [address] [place] [address] Social History Tobacco Use Types Packs/Day Years [...] Wednesday. Pt and are agreeable. Called [facility], P:[phone]. Given to send lab order to. * Telephone Encounter - Marylou Wilhelm RN - 01/12/2018 4:37 PM CDT Returned call and spoke with pt and . Told them I have sent the labs to Dr. Gonzalez for review and included Dr. Feror's recommendation to decrease Bumex 2mg 1 tab to 1/2 tab. Pt's weight today is 175 lbs, although the states his weight is usually around 171-172 lbs. She states the pt only took Bumex 1mg this morning. Pt starts chemo and radiation on Wednesday. Told her I would notify Dr. Gonzalze and call her tomorrow with recommendations and [...] d/t needing someone to drive them to [place]. They meet with Dr. Ballard on and [...] 2:37 PM CDT pts returned call from [phone], requests call back to schedule appt. * [...] BASIC METABOLIC PANEL (01/12/2018) Sodium 139 [facility] Potassium 4.3 [facility] Chloride 108 (A) 98 - 107 [facility] CO2 21 [facility] Blood Urea Nitrogen 47 (A) 7 - 18 [facility] Creatinine 2.25 (A) 0.6 - 1.3 [facility] Glucose 108 (A) 70 - 105 [facility] Calcium 9.9 [facility] eGFR Non [facility] eGFR [facility] Anion Gap [facility] Specimen Blood - Blood Narrative Performed At Pt currently on bumex 2mg [address] P[address] Ferro recommended [facility] decreasing to 0.5 tab.Pt's creatinine still increased from [facility] baseline.Routing to [facility] for review. Performing Organization Address City/[facility] Phone Number [facility] [address] [place] [address] [facility] * BASIC METABOLIC PANEL (12/31/2017) Sodium 135 [...] Labs stable.Pt taking Bumex 2mg BID.Routing to [facility] for review. OTHER OUTSIDE LAB Performing Organization Address City/State/Zipcode Phone Number OTHER OUTSIDE LAB * BASIC METABOLIC PANEL (12/27/2017) Sodium 139 [facility] Potassium 4.5 [facility] Chloride 100 [facility] CO2 26 [facility] Blood Urea Nitrogen 62 (A) 9 - 27 [facility] Creatinine 2.7 (A) 0.6 - 1.5 [facility] Glucose 110 [facility] [place] Calcium 9.6 [facility] eGFR Non 24 (A) 59 [facility] eGFR [facility] Anion Gap 18 (A) 6 - 14 [facility] [place] Specimen Blood - Blood Narrative Performed At Pt currently taking Bumex 2mg BID, started on Wednesday.Will be making f/u appt [facility] in the next couple of weeks. Performing Organization Address City/[facility]/Zipcode Phone Number [facility] [address] [place] [address] 10A in this encounter Visit Diagnoses Diagnosis Pulmonary hypertension (HCC) - Primary Other chronic pulmonary heart diseases (HFpEF) heart failure with preserved ejection fraction (HCC)
--- OUTSIDE RECORDS SUMMARY | 2018-03-04 09:16 | XMS REPORT | Encounter Summary ---
Author Author [facility] Organization [facility] Address Unknown Phone Unavailable Care Team Providers Care Scaffolding Helper Name Role Phone Verna Ferro MD PCP Florentin Martinez MD 3 Reason for Visit * Reason Comments Rad Therapy Follow-up * Consult, Test & Treat Status Reason Specialty Diagnoses / Referred By Referred To Procedures Contact Contact Closed Specialty Radiation Therapy Diagnoses Kacie Alicia Radiation Services Squamous cell MD Abdullahi Therapy Required carcinoma of [address] lung, [address] [facility] Rad unspecified [place] [address] Onc laterality (HCC) [place], [place] [address] [address] [place], [place] Phone: [phone] Phone: Encounter Details Date Type Department Care Team Description 12/21/2017 Office Visit Cancer Center - Radiation Mason Barber MD Squamous cell carcinoma Therapy [address] of lung, unspecified [place] and [place] [facility] [place] [address] laterality (HCC) [place] [address] [phone] [place] [address] [phone] Social History Tobacco Use Types Packs/Day Years [...] catheterization to evaluate his pulmonary hypertension. His stacker attendant has told him that any major surgery [...] ([facility] read) Final Diagnosis: A. Outside case "[id number]" (Date collected: 09/21/17): 1. Urothelium, "bladder tumor", [...] Please also see concurrent surgical pathology report ([id number]). Comment: Immunostains performed on the cell block [...] tissue, precluding further testing. Pursuant to the Cutting Table Operator Program at the [facility] Pathology Department, selected slides from this [...] of the bladder s/p TURBT on 2. 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 Radiation Oncology Resident, PGY-3 [facility] Pager [phone] CC: A copy of this note has [...]
--- OUTSIDE RECORDS SUMMARY | 2018-03-04 09:16 | XMS REPORT | Clinical Summary ---
Author Author [facility] Organization [facility] Address Unknown Phone Unavailable Care Team Providers Care Telecommunications Repairer Name Role Phone Verna Ferro MD PCP Florentin Martinez MD 3 Source Comments Some departments are not documenting in the electronic medical record. If you do not see the information that you expected, contact Release of Information in the Health Information Management department at [phone] for further assistance in locating additional records.[facility] Allergies Active Allergy Reactions Severity Noted Date [...] Overview: Added automatically from request for surgery [id number] Mass of upper lobe of right lung 11/17/2017 Overview: Added automatically from request for surgery [id number] (HFpEF) heart failure with preserved ejection fraction [...] cell carcinoma of right lung (HCC) Overview: Ruslan Schmitt is a 77 y.o. male [...] catheterization to evaluate his pulmonary hypertension. His prevention specialist has told him that any major surgery [...] with Dr. Wilber Lawson MD oncologist in [facility]. He will follow up with Dr. Lawson. [...] MD Post-hospital Follow Up (11/23/17 [facility] s/p [facility] ); New To Provider (Hospital Only ) 12/21/2017 Office Visit Oncology Abdullahi Alicia Squamous cell carcinoma MD of right lung (HCC) Abdon Hilton MD (Primary Dx) 12/10/2017 Telephone Oncology Abdon Hilton MD Navigation Assessment 12/09/2017 Telephone Cardiothoracic Surgery Afia Miller APRN-READING RECOVERY TEACHER Other (EBUS results) 12/09/2017 Orders Only Cardiothoracic Surgery Dori Pierce RN Squamous cell carcinoma of lung, unspecified laterality (HCC) (Primary Dx) from Last 3 Months Family History Medical [...] PANEL (01/12/2018) Only the most recent of 3 results within the time period is included. Sodium 139 [facility] Potassium 4.3 [facility] Chloride 108 (A) 98 - 107 [facility] CO2 21 [facility] Blood Urea Nitrogen 47 (A) 7 - 18 [facility] Creatinine 2.25 (A) 0.6 - 1.3 [facility] Glucose 108 (A) 70 - 105 [facility] Calcium 9.9 [facility] eGFR Non [facility] eGFR [facility] Anion Gap [facility] Specimen Blood - Blood Narrative Performed At Pt currently on bumex 2mg [address]Pt's PCP Dr[address] Ferro recommended [facility] decreasing to 0.5 tab.Pt's creatinine still increased from [facility] baseline.Routing to S for review. Performing Organization Address City/State/Zipcode Phone Number [facility] [address] [place] [address] [facility] * PATHOLOGY REPORTS FROM OUTSIDE SCAN (01/04/2018 11:37 AM) Narrative Performed At Ordered by an unspecified provider. * PROCEDURE RECORD-SCAN (12/02/2017 3:14 PM) Narrative Performed At Ordered by an unspecified provider. * TELEMETRY STRIPS-SCAN (12/02/2017 3:11 PM) Narrative Performed At Ordered by an unspecified provider. from Last 3 Months
--- OUTSIDE RECORDS SUMMARY | 2018-03-04 09:17 | XMS REPORT | Encounter Summary ---
Author Author [facility] Organization [facility] Address Unknown Phone Unavailable Care Team Providers Care Portable Power Tool Repairer Name Role Phone Verna Ferro MD [...] Rad unspecified [place] [address] Onc laterality (HCC) [place], [place] [address] [place] [address] [address] [place], [place] Phone: Scheduling Instructions This referral requires a phone call to schedule with Radiation Oncology. See locations below: CC RADIATION THERAPY: [facility] RAD THER: [facility] RAD THER: [facility] OP RAD THER: * Consult, Test & Treat Status Reason Specialty Diagnoses / Referred By Referred To Procedures Contact Contact No Auth Needed Specialty Oncology Diagnoses Kacie Alicia - Ww Cl Services Squamous long Fernando MD Exm/Proc Rm Required carcinoma of [address] [facility] lung[facility] [address] [facility] unspecified [place] [address] laterality (HCC) [place], [place] [address] [address] [place], [place] Phone: Encounter Details Date Type Department Care Team Description 12/09/2017 Orders Only [facility] & Dori Pierce, JOSE MANUEL Squamous cell carcinoma [facility] of lung, unspecified [facility] [id number] laterality (HCC) (Primary [address] Dx) [place] [address] Social History Tobacco Use Types Packs/Day Years [...]
--- OUTSIDE RECORDS SUMMARY | 2018-03-04 09:17 | XMS REPORT | Encounter Summary ---
Author Author [facility] Organization [facility] Address Unknown Phone Unavailable Care Team Providers Care Maintenance Worker Municipal Name Role Phone Verna Ferro MD PCP Florentin Martinez MD 3 Reason for Visit * Reason Comments Other EBUS results Encounter Details Date Type Department Care Team Description 12/09/2017 Telephone [facility] Afia Miller APRN-NP Other ( EBUS results) Cardiovascular Surgeons [address] [facility] [id number] [place] [address] [address] [facility] [phone] [place] [address] [phone] Social History Tobacco Use Types Packs/Day Years [...]
--- OUTSIDE RECORDS SUMMARY | 2018-03-04 09:17 | XMS REPORT | Encounter Summary ---
Author Author [facility] Address Unknown Phone Unavailable Care Team Providers Care Machine Tech Name Role Phone Verna Ferro MD PCP Florentin Martinez MD 3 Reason for Visit * Reason Comments Navigation Assessment Encounter Details Date Type Department Care Team Description 12/10/2017 Telephone [facility] Abdon Hilton MD Navigation Assessment Cancer [place] [facility] Exam [address] [facility] [address] [place] [address] [place] [address] [phone] Social History Tobacco Use Types Packs/Day Years [...] Dr. Abdullahi Alicia Contact Name & Number: [phone] Surgeon: Dr. Ayaan Brooke, urology Medical Oncologist: Dr. Wilber Lawson in [place]. PCP: Dr. Verna Ferro Other: Dr. Baldo Stoll, review scheduling coordinator in [place]. Dr. Aaron Murcia , urology. Location of Films: IN HOUSE and PACS Location of Pathology: [facility] and IN HOUSE History of Present Illness: [...] from out of town, coming from the [facility]. He would like to condense appts [...]
[2018-03-04] MEDS ORDERED: NS IV 1000 ML 1,000 ML IV ONE (09:22)
[2018-03-04] MEDS ORDERED: NS IV 1000 ML 1,000 ML ONE (09:24)
[2018-03-04] MEDS ORDERED: LIDOCAINE UROJET 2% GEL 10 ML PKG ONE (09:40)
[2018-03-04 09:42] LABS: BASOPHILS % (AUTO) 1 % (0-10); EOSINOPHILS % (AUTO) 0 % (0-10); HEMATOCRIT 25 % (40-54); HEMOGLOBIN 8.2 G/DL (13.3-17.7); LYMPHOCYTES # (AUTO) 0.3 X 10^3 (1.0-4.0); LYMPHOCYTES % (AUTO) 13 % (12-44); MEAN CORPUSCULAR HEMOGLOBIN 27 PG (25-34); MEAN CORPUSCULAR HGB CONC 33 G/DL (32-36); MEAN CORPUSCULAR VOLUME 83 FL (80-99); MEAN PLATELET VOLUME 10.4 FL (7.4-10.4); MONOCYTES # (AUTO) 0.2 X 10^3 (0.0-1.0); MONOCYTES % (AUTO) 6 % (0-12); NEUTROPHILS # (AUTO) 2.2 X 10^3 (1.8-7.8); NEUTROPHILS % (AUTO) 81 % (42-75); PLATELET COUNT 301 10^3/uL (130-400); RED BLOOD COUNT 3.02 10^6/uL (4.35-5.85); RED CELL DISTRIBUTION WIDTH 20.3 % (10.0-14.5); WHITE BLOOD COUNT 2.7 10^3/uL (4.3-11.0)
[2018-03-04] MEDS ORDERED: LIDOCAINE UROJET 2% GEL 10 ML PKG TOP ONE (09:45)
[2018-03-04 09:58] LABS: INR 3.8 (0.8-1.4); PROTHROMBIN TIME PATIENT 37.9 SEC (12.2-14.7)
--- OUTSIDE RECORDS SUMMARY | 2018-03-04 10:00 | XMS REPORT | Continuity of Care Document ---
Author Author [facility] Organization [facility] Address Unknown Phone Unavailable Allergies Active Description Code Type Severity Reaction Onset Reported/Identified Relationship to Patient Clinical Status Yes amoxicillin [id number] Drug Allergy Moderate HIVES 09/13/2017 Yes nitroglycerin [id number] Drug Allergy Mild DECREASED BP 09/13/2017 Medications [...] Ot V45.81 AORTOCORONARY BYPASS 01/01/2015 ANTONY PINEDA REPAIRER KILN CAR Ot 719.06 01/04/2015 ANTONY PINEDA REPAIRER KILN CAR Ot 719.06 01/04/2015 ANTONY PINEDA REPAIRER KILN CAR Ot 719.06 01/17/2015 ANTONY PINEDA REPAIRER KILN CAR Ot 719.06 01/24/2015 ANTONY PINEDA REPAIRER KILN CAR Ot 719.06 03/05/2015 Ot J18.9 03/14/2015 Ot [...] ABDOMINAL PAIN, UNSPECIFIED SITE 09/13/2017 ANTONY PINEDA REPAIRER KILN CAR Ot 719.06 JOINT EFFUSION-L/LEG 09/13/2017 Ot J18.9 [...] Ot I10 ESSENTIAL (PRIMARY) HYPERTENSION 09/15/2017 CAREY COHWDHURY MD Ot N13.30 UNSPECIFIED HYDRONEPHROSIS 09/15/2017 CAREY CHOWDHURY MD Ot N17.9 ACUTE KIDNEY FAILURE, UNSPECIFIED 09/15/2017 CAREY CHOWDHURY MD Ot R31.0 GROSS HEMATURIA 09/15/2017 CAREY CHOWDHURY MD Ot R33.9 RETENTION OF URINE, UNSPECIFIED 09/15/2017 CAREY CHOWDHURY MD Ot R91.8 OTHER NONSPECIFIC ABNORMAL FINDING OF NICKY 09/15/2017 CAREY CHOWDHURY MD Ot Z79.01 SENIOR LIVING (CURRENT) USE OF ANTICOAGULANT 09/16/2017 CAREY CHOWDHURY [...] MD Ot I25.10 ATHSCL HEART DISEASE OF [place] CORONARY 09/16/2017 CAREY CHOWDHURY MD Ot I48.0 [...] O 09/16/2017 CAREY CHOWDHURY MD Ot Z79.01 SENIOR LIVING (CURRENT) USE OF ANTICOAGULANT 09/16/2017 CAREY CHOWDHURY [...] MD Ot I25.10 ATHSCL HEART DISEASE OF [place] CORONARY 09/17/2017 CAREY CHOWDHURY MD Ot I48.0 [...] O 09/17/2017 CAREY CHOWDHURY MD Ot Z79.01 SENIOR LIVING (CURRENT) USE OF ANTICOAGULANT 09/17/2017 CAREY CHOWDHURY MD Ot Z95.1 PRESENCE OF AORTOCORONARY BYPASS GRAFT 09/18/2017 CAREY CHOWDHURY MD Ot D49.1 NEOPLASM OF UNSPECIFIED BEHAVIOR OF RESP 09/18/2017 CAERY CHOWDHURY MD Ot 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 09/18/2017 CAREY CHOWDHURY MD Ot D50.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 09/18/2017 CAREY CHOWDHURY MD Ot F17.290 NICOTINE DEPENDENCE, OTHER TOBACCO PRODU 09/18/2017 CAREY CHOWDHURY MD Ot G62.9 POLYNEUROPATHY, UNSPECIFIED 09/18/2017 CAREY CHOWDHURY MD Ot I10 ESSENTIAL (PRIMARY) HYPERTENSION 09/18/2017 CAREY CHOWDHURY MD Ot I25.10 ATHSCL HEART DISEASE OF [place] CORONARY 09/18/2017 CAREY CHOWDHURY MD Ot I48.0 [...] AND (SUSPECTED ) EXPOSURE TO O 09/18/2017 CRAEY CHOWDHURY MD Ot Z79.01 EXPLOSIVES MIXER OPERATOR (CURRENT) USE OF ANTICOAGULANT 09/18/2017 CAREY CHOWDHURY [...] MD Ot I25.10 ATHSCL HEART DISEASE OF [place] CORONARY 09/19/2017 CAREY CHOWDHURY MD Ot I48.0 [...] O 09/19/2017 CAREY CHOWDHURY MD Ot Z79.01 SENIOR LIVING (CURRENT) USE OF ANTICOAGULANT 09/19/2017 CAREY CHOWDHURY [...] MD Ot I25.10 ATHSCL HEART DISEASE OF [place] CORONARY 09/20/2017 CAREY CHOWDHURY MD Ot I48.0 [...] O 09/20/2017 CAREY CHOWDHURY MD Ot Z79.01 EXPLOSIVES MIXER OPERATOR (CURRENT) USE OF ANTICOAGULANT 09/20/2017 CAREY CHOWDHURY [...] MD Ot I25.10 ATHSCL HEART DISEASE OF [place] CORONARY 09/21/2017 CAREY CHOWDHURY MD Ot I48.0 [...] O 09/21/2017 CAREY CHOWDHURY MD Ot Z79.01 EXPLOSIVES MIXER OPERATOR (CURRENT) USE OF ANTICOAGULANT 09/21/2017 CAREY CHOWDHURY [...] MD Ot I25.10 ATHSCL HEART DISEASE OF [place] CORONARY 09/22/2017 CAREY CHOWDHURY MD Ot I48.0 PAROXYSMAL ATRIAL FIBRILLATION 09/22/2017 CARYE CHOWDHURY MD Ot I65.29 OCCLUSION AND STENOSIS [...] O 09/22/2017 CAREY CHOWDHURY MD Ot Z79.01 EXPLOSIVES MIXER OPERATOR (CURRENT) USE OF ANTICOAGULANT 09/22/2017 CAREY CHOWDHURY [...] MD Ot I25.10 ATHSCL HEART DISEASE OF [place] CORONARY 09/22/2017 CAREY CHOWDHURY MD Ot I48.0 [...] O 09/22/2017 CAREY CHOWDHURY MD Ot Z79.01 EXPLOSIVES MIXER OPERATOR (CURRENT) USE OF ANTICOAGULANT 09/22/2017 CAREY CHOWDHURY [...] MD Ot I25.10 ATHSCL HEART DISEASE OF [place] CORONARY 09/23/2017 CAREY CHOWDHURY MD Ot I48.0 [...] O 09/23/2017 CAREY CHOWDHURY MD Ot Z79.01 SENIOR LIVING (CURRENT) USE OF ANTICOAGULANT 09/23/2017 CAREY CHOWDHURY [...] MD Ot I25.10 ATHSCL HEART DISEASE OF [place] CORONARY 09/23/2017 CAREY CHOWDHURY MD Ot I48.0 [...] O 09/23/2017 CAREY CHOWDHURY MD Ot Z79.01 EXPLOSIVES MIXER OPERATOR (CURRENT) USE OF ANTICOAGULANT 09/23/2017 CAREY CHOWDHURY [...] ABDOMINAL PAIN, UNSPECIFIED SITE 09/30/2017 ANTONY PINEDA REPAIRER KILN CAR Ot 719.06 JOINT EFFUSION-L/LEG 09/30/2017 Ot J18.9 [...] 10/06/2017 GODFREY WILL DO Ot Z79.899 OTHER EXPLOSIVES MIXER OPERATOR (CURRENT) DRUG THERAPY 10/06/2017 GODFREY WILL DO [...] DO Ot G62.9 POLYNEUROPATHY, UNSPECIFIED 10/08/2017 GODFREY WLIL DO Ot I10 ESSENTIAL (PRIMARY) HYPERTENSION 10/08/2017 GODFREY WILL DO Ot I27.20 PULMONARY HYPERTENSION, UNSPECIFIED 10/08/2017 GODFREY WILL DO Ot I48.0 PAROXYSMAL ATRIAL FIBRILLATION 10/08/2017 GODFREY WILL DO Ot R91.8 OTHER NONSPECIFIC ABNORMAL FINDING OF NICKY 10/08/2017 GODFREY WILL DO Ot Z79.899 OTHER SENIOR LIVING (CURRENT) DRUG THERAPY 10/08/2017 GODFREY WILL DO [...] NONSPECIFIC ABNORMAL FINDING OF N[place] 10/29/2017 LAVERNE SUNHSINE Ot C67.9 MALIGNANT NEOPLASM OF BLADDER, UNSPECIFI [...] ABDOMINAL PAIN, UNSPECIFIED SITE 11/03/2017 ANTONY PINEDA REPAIRER KILN CAR Ot 719.06 JOINT EFFUSION-L/LEG 11/03/2017 Ot J18.9 [...] ABNORMAL FINDING OF NICKY 11/09/2017 ANTONY SCHWARTZ SURGICAL GARMENT FITTER Ot 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 11/09/2017 ANTONY SCHWARTZ SURGICAL GARMENT FITTER Ot R59.0 LOCALIZED ENLARGED LYMPH NODES 11/09/2017 ANTONY SCHWARTZ SURGICAL GARMENT FITTER Ot R91.8 OTHER NONSPECIFIC ABNORMAL FINDING OF [place] 11/11/2017 LAVERNE SUNSHINE Ot C67.9 MALIGNANT NEOPLASM OF BLADDER, UNSPECIFI 11/16/2017 REINA BYRD MD Ot 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 11/16/2017 REINA BYRD MD Ot R91.8 OTHER NONSPECIFIC ABNORMAL FINDING OF NICKY 11/17/2017 GODFREY WILL DO Ot R91.8 OTHER NONSPECIFIC ABNORMAL FINDING OF [place] 12/01/2017 ANTONY SCHWARTZ SURGICAL GARMENT FITTER Ot 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 12/01/2017 ANTONY SCHWARTZ SURGICAL GARMENT FITTER Ot R59.0 LOCALIZED ENLARGED LYMPH NODES 12/01/2017 ANTONY SCHWARTZ SURGICAL GARMENT FITTER Ot R91.8 OTHER NONSPECIFIC ABNORMAL FINDING OF [...] FINDING OF NICKY 12/30/2017 OXAANTONY ASENCIO Ora SURGICAL GARMENT FITTER Ot 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 12/30/2017 OXAANTONY ASENCIO Ora SURGICAL GARMENT FITTER Ot R59.0 LOCALIZED ENLARGED LYMPH NODES 12/30/2017 OXANDANTONY RIVERA Ora SURGICAL GARMENT FITTER Ot R91.8 OTHER NONSPECIFIC ABNORMAL FINDING OF [...] N Ot I25.10 ATHSCL HEART DISEASE OF [place] CORONARY 12/31/2017 LAVERNE SUNSHINE N Ot I27.20 PULMONARY HYPERTENSION, UNSPECIFIED 12/31/2017 LAVERNE SUNSHINE N Ot I48.2 CHRONIC ATRIAL FIBRILLATION 12/31/2017 LAVERNE SUNSHINE N Ot Z79.01 EXPLOSIVES MIXER OPERATOR (CURRENT) USE OF ANTICOAGULANT 01/04/2018 LAVERNE SUNSHINE [...] SUNSHINE Ot I25.10 ATHSCL HEART DISEASE OF [place] CORONARY 01/14/2018 LAVERNE SUNSHINE Mono Ot I27.20 PULMONARY HYPERTENSION, UNSPECIFIED 01/14/2018 LAVERNE SUNSHINE Mono Ot I48.2 CHRONIC ATRIAL FIBRILLATION 01/14/2018 LAVERNE SUNSHINE Ot Z79.01 SENIOR LIVING (CURRENT) USE OF ANTICOAGULANT 01/17/2018 LUCIANA MACKENZIE, CAREY Torres Ot 458.9 HYPOTENSION NOS 01/17/2018 LUCIANA MACKENZIE, CAREY Torres Ot 789.00 ABDOMINAL PAIN, UNSPECIFIED SITE 01/17/2018 ANTONY PINEDA REPAIRER KILN CAR Ot 719.06 JOINT EFFUSION-L/LEG 01/17/2018 Ot J18.9 [...] ABNORMAL FINDING OF NICKY 01/17/2018 ANTONY SCHWARTZ SURGICAL GARMENT FITTER Ot 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 01/17/2018 ANTONY SCHWARTZ SURGICAL GARMENT FITTER Ot R59.0 LOCALIZED ENLARGED LYMPH NODES 01/17/2018 ANTONY SCHWARTZ SURGICAL GARMENT FITTER Ot R91.8 OTHER NONSPECIFIC ABNORMAL FINDING OF NICKY 01/17/2018 LAVERNE SUNSHINE Mono Ot C34.11 MALIGNANT NEOPLASM OF UPPER LOBE, RIGHT 01/17/2018 BITA NICHOLASREHAN Mono Ot 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 01/17/2018 BITA NICHOLASREHAN Mono Ot 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 01/17/2018 BITA LAVERNE Villareal Ot I25.10 ATHSCL HEART DISEASE OF [place] CORONARY 01/17/2018 BITALAVERNE Ot I27.20 PULMONARY HYPERTENSION, UNSPECIFIED 01/17/2018 BITALAVERNE Ot I48.2 CHRONIC ATRIAL FIBRILLATION 01/17/2018 BITALAVERNE Ot Z79.01 SENIOR LIVING (CURRENT) USE OF ANTICOAGULANT 01/17/2018 BITALAVERNE Ot [...] HYPERTENSION 01/17/2018 GODFREY WILL DO Ot Z79.01 SENIOR LIVING (CURRENT) USE OF ANTICOAGULANT 01/17/2018 GODFREY WILL DO, Ot Z79.899 OTHER SENIOR LIVING (CURRENT) DRUG THERAPY 01/19/2018 LORENA MACKENZIE, AAMIR [...] N Ot I25.10 ATHSCL HEART DISEASE OF [place] CORONARY 02/04/2018 LAVERNE SUNSHINE N Ot I27.20 PULMONARY HYPERTENSION, UNSPECIFIED 02/04/2018 LAVERNE SUNSHINE N Ot I48.2 CHRONIC ATRIAL FIBRILLATION 02/04/2018 LAVERNE SUNSHINE N Ot Z51.0 ENCOUNTER FOR ANTINEOPLASTIC RADIATION T 02/04/2018 LAVERNE SUNSHINE Ot Z51.11 ENCOUNTER FOR ANTINEOPLASTIC CHEMOTHERAP 02/04/2018 LAVERNE SUNSHINE Ot Z79.01 EXPLOSIVES MIXER OPERATOR (CURRENT) USE OF ANTICOAGULANT 02/04/2018 LUCIANA MACKENZIE, CAREY Torres Ot 458.9 HYPOTENSION NOS 02/04/2018 LUCIANA MACKENZIE, CAREY Torres Ot 789.00 ABDOMINAL PAIN, UNSPECIFIED SITE 02/04/2018 ANTONY PINEDA REPAIRER KILN CAR Ot 719.06 JOINT EFFUSION-L/LEG 02/04/2018 Ot J18.9 PNEUMONIA, UNSPECIFIED ORGANISM 02/04/2018 LUCIANA MACKENZIE, CAREY Torres Ot M54.5 LOW [...] ABNORMAL FINDING OF NICK[place] 02/04/2018 ANTONY SCHWARTZ SURGICAL GARMENT FITTER Ot 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 02/04/2018 ANTONY SCHWARTZ SURGICAL GARMENT FITTER Ot R59.0 LOCALIZED ENLARGED LYMPH NODES 02/04/2018 ANTONY SCHWARTZ SURGICAL GARMENT FITTER Ot R91.8 OTHER NONSPECIFIC ABNORMAL FINDING OF [...] OTHER NONSPECIFIC ABNORMAL FINDING OF NICKY 02/04/2018 BITALAVERNE GILL Mono Ot Z01.89 ENCOUNTER FOR OTHER SPECIFIED SPECIAL EX 02/04/2018 GODFREY WILL DO, Ot C34.11 MALIGNANT NEOPLASM OF UPPER LOBE, RIGHT 02/04/2018 GODFREY WILL DO Ot 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 02/04/2018 GODFREY WILL DO, Ot D50.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 02/04/2018 GODFREY WILL DO Ot I10 ESSENTIAL (PRIMARY) HYPERTENSION 02/04/2018 GODFREY WILL DO, Ot Z79.01 SENIOR LIVING (CURRENT) USE OF ANTICOAGULANT 02/04/2018 GODFREY WILL DO, Ot Z79.899 OTHER EXPLOSIVES MIXER OPERATOR (CURRENT) DRUG THERAPY 02/04/2018 LORENA MACKENZIE, AAMIR Lopez Ot I27.20 PULMONARY HYPERTENSION, UNSPECIFIED 02/04/2018 LORENA MACKENZIE, AAMIR Lopez Ot I50.30 UNSPECIFIED DIASTOLIC (CONGESTIVE) HEART 02/04/2018 ELENI CHIANG MD, Ot C34.90 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 02/04/2018 ELENI CHIANG MD, Ot C67.9 MALIGNANT NEOPLASM OF BLADDER, UNSPECIFI 02/04/2018 ELENI CHIANG MD, Ot I10 ESSENTIAL (PRIMARY) HYPERTENSION 02/04/2018 ELENI CHIANG MD, Ot I25.10 ATHSCL HEART DISEASE OF [place] CORONARY 02/04/2018 ELENI CHIANG MD Ot N13.9 OBSTRUCTIVE AND REFLUX UROPATHY, UNSPECI 02/04/2018 ELENI CHIANG MD, Ot Z79.01 SENIOR LIVING (CURRENT) USE OF ANTICOAGULANT 02/04/2018 ELENI CHIANG MD, Ot Z80.0 FAMILY HISTORY OF MALIGNANT NEOPLASM OF 02/04/2018 ELENI CHIANG MD, Ot Z82.49 FAMILY HX OF ISCHEM HEART DIS AND OTH DI 02/04/2018 ELENI CHIANG MD, Ot Z87.19 PERSONAL HISTORY OF OTHER DISEASES OF 02/04/2018 BRUEGGEMANN MD, ELENI T Ot Z88.0 ALLERGY STATUS TO PENICILLIN 02/04/2018 АНДРЕЙ MACKENZIE, ELENI Mcintosh Ot Z90.89 ACQUIRED ABSENCE OF OTHER ORGANS 02/04/2018 АНДРЕЙ MACKENZIE, ELENI Mcintosh Ot Z92.21 PERSONAL HISTORY OF ANTINEOPLASTIC CHEMO 02/04/2018 ELENI CHIANG MD, Ot Z95.1 PRESENCE OF AORTOCORONARY BYPASS GRAFT 02/06/2018 GODFREY WILL DO, Ot C34.11 MALIGNANT NEOPLASM OF UPPER LOBE, RIGHT 02/06/2018 GODFREY WILL DO Ot 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 02/06/2018 GODFREY WILL DO, Ot D50.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 02/06/2018 GODFREY WILL DO Ot I10 ESSENTIAL (PRIMARY) HYPERTENSION 02/06/2018 GODFREY WILL DO, Ot Z79.01 SENIOR LIVING (CURRENT) USE OF ANTICOAGULANT 02/06/2018 GODFREY WILL DO, Ot Z79.899 OTHER EXPLOSIVES MIXER OPERATOR (CURRENT) DRUG THERAPY 02/06/2018 GLO JALLOH MD, Ot C34.11 MALIGNANT NEOPLASM OF UPPER LOBE, RIGHT 02/06/2018 GLO JALLOH MD, Ot 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 02/06/2018 GLO JALLOH MD, Ot 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 02/06/2018 GLO JALLOH MD, Ot D50.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 02/06/2018 GLO JALLOH MD Ot I11.0 HYPERTENSIVE HEART DISEASE WITH HEART FA 02/06/2018 GLO JALLOH MD, Ot I25.10 ATHSCL HEART DISEASE OF [place] CORONARY 02/06/2018 GLO JALLOH MD, Ot I27.20 PULMONARY HYPERTENSION, UNSPECIFIED 02/06/2018 GLO JALLOH MD, Ot I48.2 CHRONIC ATRIAL FIBRILLATION 02/06/2018 GLO JALLOH MD, Ot I50.30 UNSPECIFIED DIASTOLIC (CONGESTIVE) HEART 02/06/2018 GLO JALLOH MD, Ot Z51.0 ENCOUNTER FOR ANTINEOPLASTIC RADIATION T 02/06/2018 GLO JALLOH MD, Ot Z79.01 EXPLOSIVES MIXER OPERATOR (CURRENT) USE OF ANTICOAGULANT 02/06/2018 GLO JALLOH MD, Ot Z79.899 OTHER EXPLOSIVES MIXER OPERATOR (CURRENT) DRUG THERAPY 02/06/2018 GLO JALLOH MD, [...] 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 02/07/2018 GLO JALLOH MD Ot I11.0 HYPERTENSIVE HEART DISEASE WITH HEART FA 02/07/2018 GLO JALLOH MD, Ot I25.10 ATHSCL HEART DISEASE OF [place] CORONARY 02/07/2018 GLO JALLOH MD, Ot I27.20 PULMONARY HYPERTENSION, UNSPECIFIED 02/07/2018 GLO JALLOH MD, Ot I48.2 CHRONIC ATRIAL FIBRILLATION 02/07/2018 GLO JALLOH MD, Ot I50.30 UNSPECIFIED DIASTOLIC (CONGESTIVE) HEART 02/07/2018 GLO JALLOH MD, Ot Z79.01 EXPLOSIVES MIXER OPERATOR (CURRENT) USE OF ANTICOAGULANT 02/07/2018 GLO JALLOH MD, Ot Z79.899 OTHER SENIOR LIVING (CURRENT) DRUG THERAPY 02/07/2018 GLO JALLOH MD, [...] MD, Ot I25.10 ATHSCL HEART DISEASE OF [place] CORONARY 02/07/2018 GLO JALLOH MD, Ot I27.20 PULMONARY HYPERTENSION, UNSPECIFIED 02/07/2018 GLO JALLOH MD, Ot I48.2 CHRONIC ATRIAL FIBRILLATION 02/07/2018 GLO JALLOH MD, Ot I50.30 UNSPECIFIED DIASTOLIC (CONGESTIVE) HEART 02/07/2018 GLO JALLOH MD, Ot Z51.0 ENCOUNTER FOR ANTINEOPLASTIC RADIATION T 02/07/2018 GLO JALLOH MD, Ot Z79.01 EXPLOSIVES MIXER OPERATOR (CURRENT) USE OF ANTICOAGULANT 02/07/2018 GLO JALLOH MD, Ot Z79.899 OTHER SENIOR LIVING (CURRENT) DRUG THERAPY 02/07/2018 GLO JALLOH MD, [...] ABSENCE OF OTHER ORGANS 02/07/2018 GLO JALLOH MD Ot Z92.21 PERSONAL HISTORY OF ANTINEOPLASTIC CHEMO 02/07/2018 GLO JALLOH MD Ot Z95.1 PRESENCE OF AORTOCORONARY BYPASS GRAFT 02/09/2018 GODFREY WILL DO, Ot C34.11 MALIGNANT NEOPLASM OF UPPER LOBE, RIGHT 02/09/2018 GODFREY WILL DO, Ot 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 02/09/2018 GODFREY WILL DO, Ot D50.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9 OBSTRUCTIVE AND REFLUX UROPATHY, UNSPECI 02/10/2018 ELENI CHIANG MD, Ot Z79.01 EXPLOSIVES MIXER OPERATOR (CURRENT) USE OF ANTICOAGULANT 02/10/2018 ELENI CHIANG MD, Ot Z80.0 FAMILY HISTORY OF MALIGNANT NEOPLASM OF 02/10/2018 ELENI CHIANG MD, Ot Z82.49 FAMILY HX OF ISCHEM HEART DIS AND OTH DI 02/10/2018 ELENI CHIANG MD, Ot Z87.19 PERSONAL HISTORY OF OTHER DISEASES OF TH 02/10/2018 ELENI CHIANG MD, Ot Z88.0 ALLERGY STATUS TO PENICILLIN 02/10/2018 ELENI CHIANG MD, Ot Z90.89 ACQUIRED ABSENCE OF OTHER ORGANS 02/10/2018 ELENI CHIANG MD T Ot Z92.21 PERSONAL HISTORY OF ANTINEOPLASTIC CHEMO 02/10/2018 АНДРЕЙ MACKENZIE, ELENI Mcintosh Ot Z95.1 PRESENCE OF AORTOCORONARY BYPASS GRAFT [...] MD Ot I25.10 ATHSCL HEART DISEASE OF [place] CORONARY 02/11/2018 CAREY CHOWDHURY MD Ot I27.20 PULMONARY HYPERTENSION, UNSPECIFIED 02/11/2018 CAERY CHOWDHURY MD Ot I35.0 NONRHEUMATIC AORTIC (VALVE) STENOSIS 02/11/2018 CAREY CHOWDHURY MD Ot I48.0 PAROXYSMAL ATRIAL FIBRILLATION 02/11/2018 CAREY CHOWDHURY MD Ot I95.9 HYPOTENSION, UNSPECIFIED 02/11/2018 CAREY CHOWDHURY MD Ot K44.9 DIAPHRAGMATIC HERNIA WITHOUT OBSTRUCTION 02/11/2018 CAREY CHOWDHURY MD Ot M19.91 PRIMARY OSTEOARTHRITIS, UNSPECIFIED SITE 02/11/2018 CAREY CHOWDHURY MD Ot N39.0 URINARY TRACT INFECTION, SITE NOT SPECIF 02/11/2018 CAREY CHOWDHURY MD Ot R11.0 NAUSEA 02/11/2018 CAREY CHOWDHURY MD, Ot R14.0 ABDOMINAL DISTENSION (GASEOUS) 02/11/2018 CAREY CHOWDHURY MD, Ot R19.7 DIARRHEA, UNSPECIFIED 02/11/2018 CAREY CHOWDHURY MD, Ot R21 RASH AND OTHER NONSPECIFIC SKIN ERUPTION 02/11/2018 CAREY CHOWDHURY MD, Ot R33.9 RETENTION OF URINE, UNSPECIFIED 02/11/2018 CAREY CHOWDHURY MD, Ot R53.1 WEAKNESS 02/11/2018 CAREY CHOWDHURY MD, Ot T83.511A I/I REACT D/T INDWELLING URETHRAL CATHET 02/11/2018 CAREY CHOWDHURY MD, Ot Z79.01 EXPLOSIVES MIXER OPERATOR (CURRENT) USE OF ANTICOAGULANT 02/11/2018 CAREY CHOWDHURY MD, Ot Z79.82 SENIOR LIVING (CURRENT) USE OF ASPIRIN 02/11/2018 CAREY CHOWDHURY MD, Ot Z87.891 PERSONAL HISTORY OF NICOTINE DEPENDENCE 02/11/2018 CAREY CHOWDHURY MD, Ot Z95.1 PRESENCE OF AORTOCORONARY BYPASS GRAFT 02/11/2018 GLO JALLOH MD, Ot C34.11 MALIGNANT NEOPLASM OF UPPER LOBE, RIGHT 02/11/2018 GLO JALLOH MD, Ot 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 02/11/2018 GLO JALLOH MD, Ot 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 02/11/2018 GLO JALLOH MD, Ot D50.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 02/11/2018 GLO JALLOH MD, Ot I11.0 HYPERTENSIVE HEART DISEASE WITH HEART FA 02/11/2018 GLO JALLOH MD, Ot I25.10 ATHSCL HEART DISEASE OF [place] CORONARY 02/11/2018 GLO JALLOH MD, Ot I27.20 PULMONARY HYPERTENSION, UNSPECIFIED 02/11/2018 GLO JALLOH MD, Ot I48.2 CHRONIC ATRIAL FIBRILLATION 02/11/2018 GLO JALLOH MD, Ot I50.30 UNSPECIFIED DIASTOLIC (CONGESTIVE) HEART 02/11/2018 GLO JALLOH MD, Ot Z51.0 ENCOUNTER FOR ANTINEOPLASTIC RADIATION T 02/11/2018 GLO JALLOH MD, Ot Z79.01 EXPLOSIVES MIXER OPERATOR (CURRENT) USE OF ANTICOAGULANT 02/11/2018 GLO JALLOH MD, Ot Z79.899 OTHER EXPLOSIVES MIXER OPERATOR (CURRENT) DRUG THERAPY 02/11/2018 GLO JALLOH MD, Ot Z80.0 FAMILY HISTORY OF MALIGNANT NEOPLASM OF 02/11/2018 GLO JALLOH MD, Ot Z82.49 FAMILY HX OF ISCHEM HEART DIS AND OTH DI 02/11/2018 GLO JALLOH MD, Ot Z87.19 PERSONAL HISTORY OF OTHER DISEASES OF TH 02/11/2018 GLO JALLOH MD, Ot Z88.0 ALLERGY STATUS TO PENICILLIN 02/11/2018 GLO JALLOH MD, Ot Z90.89 ACQUIRED ABSENCE OF OTHER ORGANS 02/11/2018 GLO JALLOH MD, Ot Z92.21 PERSONAL HISTORY OF ANTINEOPLASTIC CHEMO 02/11/2018 GLO JALLOH MD, Ot Z95.1 PRESENCE OF AORTOCORONARY BYPASS GRAFT 02/17/2018 NEHEMIAH DILLON MD Ot Z01.818 ENCOUNTER FOR OTHER PREPROCEDURAL EXAMIN Procedures Code Description Performed By Performed On 47.01 LAPAROSCOP APPENDECTOMY 01/18/2014 [id number] EXCISION OF BLADDER, ENDO , DIAGN 09/21/2017 [...] ABO+Rh group AP NRG Transfusion band number [id number] NRG Blood group antibody screen NEGATIVE NRG [...] ABO+Rh group AP NRG Transfusion band number [id number] NRG Blood group antibody screen NEGATIVE NRG [...] CELLS LEUKO REDUCED AS1 TRANSFUSED 09/20/17 1118 NR Blood type T Indirect antibody screen panel - 09/20/17 08:54 ABO+Rh group AP NRG Transfusion band number [id number] NRG Blood group antibody screen NEGATIVE NRG [...] 08:15 GRAM STAIN SPUTUM NO BACTERIA OBSERVED NR Bacteria identification in bronchial specimen by aerobe culture - 10/06/17 08: 15 Bacteria identification in bronchial specimen by aerobe culture NORMAL [facility] Mycobacterium species detection by organism specific culture - 10/06/17 08:15 QUANTITY OF GROWTH . [facility] Mycobacterium species detection by organism specific culture SEE COMMEN [facility] Fungus culture - 10/06/17 08:15 FUNGUS REPORT NO FUNGUS GROWTH OBSERVED [facility] [id number] - 11/08/17 10:24 Serum or plasma urea [...] culture - 02/08/18 09:44 Bacterial urine culture [id number] NRG COLONY COUNT >100,000/ML NRG FTX;REPORTABLE SUSCEPTIBILITY REPORTED 02-10-2018, 1405. NR RML Sensitivity Panel - 02/08/18 09:44 Gentamicin [...] <= NRG Amoxicillin and clavulanate potassium susc JAEN R NRG Complete blood count (CBC) with [...] RESULTS NEGATIVE FOR ANTIGEN AND TOXIN A/B NRG Complete blood count (CBC) with automated [...] RED CELLS LEUKO REDUCED AS1 NOT AVAILABLE [facility] Blood type T Indirect antibody screen panel - 02/10/18 09:05 ABO+Rh group AP [facility] Transfusion band number [id number] [facility] Blood group antibody screen NEGATIVE [facility] Automated blood complete blood count (hemogram) panel [...] or blood by coagulation assay 2.6 0.8-1.4 Methicillin resistant Staphylococcus aureus (MRSA) screening culture - 09:40 Methicillin resistant Staphylococcus aureus (MRSA) screening culture NEG NRG Encounters ACCT No. Visit Date/Time Discharge Status Pt. Type Provider Facility Loc./Unit Complaint [id number] 02/17/2018 08:44:00 02/17/2018 14:10:00 DIS Outpatient NEHEMIAH DILLON MD Via [facility] LUNG CANCER, BLADDER CANCER [id number] 02/16/2018 15:47:00 02/16/2018 23:59:59 CLS Outpatient NEHEMIAH DILLON MD [facility] PREOP LUNG CANCER,BLADDER CANCER [id number] 02/08/2018 11:18:00 02/11/2018 12:15:00 DIS Outpatient CAREY CHOWDHURY MD [facility] 4TH SEPSIS;UTI;BLADDER CANCER ON CHEMO RADIATION;- [id number] 02/07/2018 01:02:00 02/07/2018 23:59:59 CLS Preadmit GODFREY WILL DO [facility] LAB R91.8 [id number] 02/04/2018 12:08:00 02/06/2018 00:01:00 DIS Outpatient SHUBHAM MACKENZIE, CLAROSAnupamaONI [facility] ONC [id number] 01/12/2018 08:11:00 02/06/2018 00:01:00 DIS Outpatient GODFREY WILL DO [facility] LAB R91.8 [id number] 02/04/2018 13:18:00 02/04/2018 14:47:00 DIS Emergency АНДРЕЙ MACKENZIE, ELENI Mcintosh [facility] ER TROUBLE URINATING [id number] 02/03/2018 07:41:00 02/04/2018 09:08:00 DIS Outpatient LAVERNE SUNSHINE [facility] ONC [id number] 01/17/2018 11:01:00 01/17/2018 23:59:59 CLS Outpatient LORENA MACKENZIE, AAMIR Lopez [facility] LAB [id number] 01/04/2018 12:03:00 01/04/2018 23:59:59 CLS Outpatient LAVERNE SUNSHINE [facility] RAD BLADDER CA,SQUAMOUS CELL CARCINOMA LUNG [id number] 10/01/2017 12:11:00 12/30/2017 00:01:00 DIS Outpatient GODFREY WILL DO [facility] LAB R91.8 [id number] 11/08/2017 15:47:00 11/08/2017 23:59:59 CLS Outpatient ANTONY SCHWARTZ APRN [facility] RAD HILAR MASS,LUNG MASS [id number] 11/08/2017 10:09:00 11/08/2017 23:59:59 CLS Outpatient KANIKA MACKENZIE, MOOSE Pena [facility] RAD LUNG MASS, HILAR MASS [id number] 11/08/2017 09:43:00 11/08/2017 23:59:59 CLS Outpatient REINA BYRD MD [facility] LAB ATRIAL FIBRILLATION [id number] 11/02/2017 16:33:00 11/02/2017 23:59:59 CLS Preadmit KANIKA MACKENZIE, MOOSE Jean [facility] RAD LUNG MASS, HILAR MAS [id number] 10/11/2017 08:45:00 10/11/2017 23:59:59 CLS Outpatient LAVERNE SUNSHINE [facility] ONC [id number] 10/07/2017 12:00:00 10/07/2017 23:59:59 CLS Preadmit GALI MACKENZIE, LANRE Torres [facility] CARD CA BLADDER [id number] 10/06/2017 06:58:00 10/06/2017 10:40:00 DIS Outpatient GODFREY WILL DO [facility] ENDO LUNG MASS/BLADDER CANCER [id number] 10/05/2017 06:10:00 10/05/2017 10:00:00 DIS Outpatient GODFREY WILL DO [facility] PREOP EBUS [id number] 09/28/2017 08:37:00 09/28/2017 23:59:59 CLS Outpatient CAREY CHOWDHURY MD [facility] [place] [facility] LUNG MASS,BLADDER TUMOR [id number] 09/13/2017 12:03:00 09/23/2017 14:42:00 DIS Inpatient CAREY CHOWDHURY MD Via [facility] 4TH RENAL FAILURE,URINARY RETENTION [id number] 04/22/2017 12:33:00 04/22/2017 23:59:59 CLS Outpatient LANRE TALBERT MD [facility] RAD HEMATURIA [id number] 08/21/2015 08:29:00 08/21/2015 23:59:59 CLS Outpatient CAREY CHOWDHURY MD [facility] RAD LOW BACK PAIN [id number] 12/28/2014 11:10:00 12/28/2014 23:59:59 CLS Outpatient ANTONY PINEDA [facility] [place] RAD L KNEE PAIN, SWELLING [id number] 02/14/2014 13:57:00 02/14/2014 23:59:59 CLS Outpatient CAREY CHOWDHURY MD [facility] SDC ABD PAIN/HTN [id number] 01/18/2014 12:18:00 01/21/2014 14:00:00 DIS Inpatient CAREY CHOWDHURY MD [facility] SURGICAL ABD PAIN [id number] 03/02/2018 08:34:00 ACT Outpatient LAVERNE SUNSHINE [facility] ONC [id number] 08/21/2015 08:27:00 Document Registration [id number] 05/01/2015 15:50:00 Document Registration [id number] 02/12/2015 15:12:00 Document Registration [id number] 06/29/2012 09:12:00 Document Registration [id number] 03/17/2012 11:19:00 Document Registration [id number] 10/30/2011 11:22:00 Document Registration [id number] 01/29/2011 15:53:00 Document Registration [id number] 01/29/2011 11:17:00 Document Registration [id number] 01/29/2011 10:42:00 Document Registration [id number] 03/04/2017 23:43:51 03/04/2017 23:59:59 CLS Outpatient [id number] 12/28/2014 11:11:52 ACT Document Registration
[2018-03-04 10:05] LABS: ALBUMIN 3.3 GM/DL (3.2-4.5); BILIRUBIN,TOTAL 1.6 MG/DL (0.1-1.0); CALCIUM 8.5 MG/DL (8.5-10.1); CREATININE SERUM 1.88 MG/DL (0.60-1.30); POTASSIUM 4.5 MMOL/L (3.6-5.0); TOTAL PROTEIN 6.6 GM/DL (6.4-8.2)
[2018-03-04] MEDS ORDERED: MAGNESIUM 1 GM/100 ML IVPB 100 ML IV ONE (10:30)
--- NOTE | 2018-03-04 10:49 | ED GU-Male ---
General Chief Complaint: -Male Stated Complaint: RECTAL BLEEDING Nursing Triage Note: PT TO ROOM 3 PER W/C PT CO OF BLEEDING FROM RECTUM, EXAM BY DR Magdaleno IS BLEEDING FROM PENIS. PT BROUGHT BY CANCER CENTER TO ED. PT HAS LUNG AND BLADDER CA. STARTED BLEEDING LAST PM Source: patient Exam Limitations: no limitations History of Present Illness Date Seen by Provider: Mar 04, 2018 Time Seen by Provider: 09:12 Initial Comments This 77-year-old gentleman presents to the emergency room with "rectal bleeding " and hypotension. During assessment it is noted that the blood is actually coming from the urethral meatus. Patient is being treated for bladder cancer and is on warfarin therapy. He was at the cancer center within the hemorrhaging started and was brought to the ER for treatment and evaluation. He was hypotensive upon arrival and appeared very pale. He has had some bleeding in the urine recently but the passing of jeyson blood started today. Allergies and Home Medications Allergies Coded Allergies: amoxicillin (Verified Allergy, Intermediate, HIVES, 03/04/18) nitroglycerin (Verified Allergy, Mild, DECREASED BP, 03/04/18) Home Medications Alprazolam 0.5 Mg Tablet, 0.5 MG PO TID PRN for ANXIETY, (Reported) Belladonna Alkaloids/Opium 30 Mg Supp, 30 MG NE QID PRN for BLADDER SPASMS Prescribed by: CAREY FERRO on 03/11/18 1043 Betamethasone/Propylene Glyc 15 Gm Cream..g., TP BID, (Reported) Bumetanide 2 Mg Tablet, 2 MG PO DAILY PRN for SWELLING, (Reported) Cephalexin 500 Mg Capsule, 500 MG PO QID Prescribed by: CAREY FERRO on 03/11/18 1043 Cholecalciferol (Vitamin D3) 400 Unit Capsule, 400 UNIT PO DAILY, (Reported) Diltiazem HCl 120 Mg Cap.er.24h, 120 MG PO DAILY Prescribed by: CAREY FERRO on 03/11/18 1043 Fluticasone Furoate 5.9 Ml [place].susp, 2 SPRAY NS DAILY PRN for CONGESTION, ( Reported) Hydrocodone/Acetaminophen 1 Each Tablet, 1 TAB PO Q6H PRN for PAIN-MODERATE FOR PAIN FROM BLADDER CANCER OR LUNG CANCER Prescribed by: CAREY FERRO on 03/11/18 1043 Lactobacillus Rhamnosus GG 1 Each Capsule, 1 CAP PO DAILY, (Reported) Melatonin 10 Mg Tablet, 10 MG PO HS, (Reported) Pantoprazole Sodium 20 Mg Tablet.dr, 20 MG PO DAILY, (Reported) Patient Home Medication List Home Medication List Reviewed: Yes Review of Systems Review of Systems Constitutional: no symptoms reported EENTM: no symptoms reported Respiratory: no symptoms reported Cardiovascular: no symptoms reported Gastrointestinal: no symptoms reported Genitourinary: see HPI Musculoskeletal: no symptoms reported Skin: no symptoms reported Psychiatric/Neurological: No Symptoms Reported Endocrine: No Symptoms Reported Hematologic/Lymphatic: See HPI Past Vznuuoo-Bwtksu-Iekmeq Hx Patient Social History Type Used: Cigars Former Smoker, Quit: Jan 08, 2011 2nd Hand Smoke Exposure: No Recent Foreign Travel: No Contact w/Someone Who Travel: No Recent Infectious Disease Expo: No Recent Hopitalizations: No Immunizations Up To Date Tetanus Booster (TDap): Unknown Date of Pneumonia Vaccine: Jan 19, 2012 Date of Influenza Vaccine: Feb 07, 2014 Seasonal Allergies Seasonal Allergies: No Past Medical History Surgeries: Yes Appendectomy, Bladder Surgery, CABG, Orthopedic, Transurethral Resection, Vascular Surgery Respiratory: Yes (LUNG MASS; HX OF SMOKING; PULMONARY HTN) Cardiac: Yes (CAROTID DISEASE; AORTIC STENOSIS; PULMONARY HTN) Aneurysm, Atrial Fibrillation, Coronary Artery Disease, High Cholesterol, Hypertension, Valvular Heart Disease Neurological: Yes (neuropathy in both legs) Neuropathy Reproductive Disorders: No Sexually Transmitted Disease: No Genitourinary: Yes (bladder tumor removed 2-3 yrs ago) Renal Failure Gastrointestinal: Yes Hiatal Hernia Musculoskeletal: Yes (arthritis) Arthritis Endocrine: No HEENT: Yes Hearing Impairment: Hard of Hearing Cancer: Yes Bladder, Lung Did You Recieve Any Treatments: Yes What Type of Treatment Did You: Chemotherapy, Radiation, Surgical Intervention Psychosocial: No Integumentary: Yes (rash on and off) Recent Skin Changes Blood Disorders: No (on coumadin and asa) Family Medical History Ca 19 MOTHER G8 SISTER Cancer of mouth 19 MOTHER Cardiovascular disease 19 FATHER Heart Disease, Cancer, Hypertension Physical Exam Vital Signs Capillary Refill : Less Than 3 Seconds Height, Weight, BMI Height: 5'9.00" Weight: 174lbs. 0.0oz. 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7 G/DL Hematocrit 25 L 40-54 % Mean Corpuscular Volume 83 80-99 FL Mean Corpuscular Hemoglobin 27 25-34 PG Mean Corpuscular Hemoglobin Concent 33 32-36 G/DL Red Cell Distribution Width 20.3 H 10.0-14.5 % Platelet Count 301 130-400 10^3/uL Mean Platelet Volume 10.4 7.4-10.4 FL Neutrophils (%) (Auto) 81 H 42-75 % Lymphocytes (%) (Auto) 13 12-44 % Monocytes (%) (Auto) 6 0-12 % Eosinophils (%) (Auto) 0 0-10 % Basophils (%) (Auto) 1 0-10 % Neutrophils # (Auto) 2.2 1.8-7.8 X 10^3 Lymphocytes # (Auto) 0.3 L 1.0-4.0 X 10^3 Monocytes # (Auto) 0.2 0.0-1.0 X 10^3 Eosinophils # (Auto) 0.0 0.0-0.3 10^3/uL Basophils # (Auto) 0.0 0.0-0.1 10^3/uL Prothrombin Time 37.9 H 12.2-14.7 SEC INR Comment 3.8 H 0.8-1.4 Activated Partial Thromboplast Time 47 H 24-35 SEC Sodium Level 139 135-145 MMOL/L Potassium Level 4.5 3.6-5.0 MMOL/L Chloride Level 106 98-107 MMOL/L Carbon Dioxide Level 18 L 21-32 MMOL/L Anion Gap 15 H 5-14 MMOL/L Blood Urea Nitrogen 35 H 7-18 MG/DL Creatinine 1.88 H 0.60-1.30 MG/DL Estimat Glomerular Filtration Rate 35 BUN/Creatinine Ratio 19 Glucose Level 130 H 70-105 MG/DL Calcium Level 8.5 8.5-10.1 MG/DL Corrected Calcium 9.1 8.5-10.1 MG/DL Magnesium Level 1.0 *L 1.8-2.4 MG/DL Total Bilirubin 1.6 H 0.1-1.0 MG/DL Aspartate Amino Transf (AST/SGOT) 25 5-34 U/L Alanine Aminotransferase (ALT/SGPT) 26 0-55 U/L Alkaline Phosphatase 92 40-136 U/L Total Protein 6.6 6.4-8.2 GM/DL Albumin 3.3 3.2-4.5 GM/DL My Orders Orders - ELENI CHIANG MD Red Cells Leukocytes Reduced (03/04/18:) Type And Screen (03/04/18:) Cbc With Automated Diff (03/04/18:22) Comprehensive Metabolic Panel (03/04/18:22) Magnesium (03/04/18:22) Protime With Inr (03/04/18:22) Partial Thromboplastin Time (03/04/18:22) Monitor-Rhythm Ecg Trace Only (03/04/18:22) Saline Lock/Iv-Start (03/04/18:22) Ns Iv 1000 Ml (Sodium Chloride 0.9%) (03/04/18 09:22) Implanted Port: Access (03/04/18:22) Ns Iv 1000 Ml (Sodium Chloride 0.9%) (03/04/18 09:24) Lidocaine 2% (Urojet) (Xylocaine Urojet) (03/04/18 09:45) Lidocaine 2% (Urojet) (Xylocaine Urojet) (03/04/18 09:40) Magnesium 1 Gm/100 Ml Ivpb (Magnesium Esquivel (03/04/18 10:30) Red Cells Leukocytes Reduced (03/04/18 09:20) Medications Given in ED Vital Signs/I&O Capillary Refill : Less Than 3 Seconds Blood Pressure Mean: 70 Progress Note : Progress Note Patient was given immediate fluid resuscitation with IV normal saline. This did rebound his blood pressure. Blood products including a unit of packed red blood cells and 2 units of FFP were ordered to give him immediately. INR was found to be slightly above therapeutic level. Patient was found to have low magnesium which was replaced by IV route. Dr. Brooke was consulted and recommended passing a three-way catheter and performing irrigation. Catheter was placed. A significant amount of urine was found to be retained after Ramirez placement. Bladder was then irrigated with sterile water. Patient was admitted to the ICU after discussion with Dr. Ferro. Departure Communication (Admissions) Time/Spoke to Admitting Phy: 10:23 Dr. Ferro Time/Spoke to Consulting Phy: 09:35 Dr. Brooke Impression Primary Impression: Hypovolemic shock Additional Impressions: Bladder hemorrhage hypertherapeutic INR Bladder cancer Qualified Codes: C67.9 - Malignant neoplasm of bladder, unspecified Urinary obstruction Acute blood loss anemia Hypomagnesemia Disposition: ADMITTED INPATIENT Condition: Improved Admissions Decision to Admit Reason: Admit from ER (General) Decision to Admit/Date: Mar 04, 2018 Time/Decision to Admit Time: 09:20 Departure-Patient Inst. Referrals: CAREY FERRO MD (PCP/Family) Primary Care Physician Scripts Cephalexin (Keflex) 500 Mg Capsule 500 MG PO QID, #20 CAP Prov: CAREY FERRO MD 03/11/18 Belladonna Alkaloids/Opium (Belladonna-Opium 16.2-30 Supp) 30 Mg Supp 30 MG NE QID PRN for BLADDER SPASMS, #20 SUPP Prov: CAREY FERRO MD 03/11/18 Diltiazem HCl (Diltiazem 24Hr Cd) 120 Mg Cap.er.24h 120 MG PO DAILY, #30 CAP 6 Refills Prov: CAREY FERRO MD 03/11/18 Hydrocodone/Acetaminophen (Lorcet 5-325 mg Tablet) 1 Each Tablet 1 TAB PO Q6H PRN for PAIN-MODERATE MDD 10, #60 TAB FOR PAIN FROM BLADDER CANCER OR LUNG CANCER Prov: CAREY FERRO MD 03/11/18 ELENI CHIANG MD Mar 04, 2018 10:49
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
[2018-03-04] MEDS ORDERED: NS IV 500 ML 500 ML IV SCH (12:45)
[2018-03-04] MEDS ORDERED: CATHETER FLUSH 10 ML SYR IV PRN (12:45)
[2018-03-04] MEDS ORDERED: ONDANSETRON 4 MG/2 ML (SDV) Z0FRAN IV PRN (12:45)
[2018-03-04] MEDS: MAGNESIUM 1 GM/100 ML IVPB IV SCH ×2 (13:13→15:04)
[2018-03-04] MEDS: CATHETER FLUSH 10 ML SYR IV SCH ×2 (13:13→22:00)
--- NOTE | 2018-03-04 13:49 | CONSULTATION REPORT ---
DATE OF SERVICE: 03/04/2018 ATTENDING PHYSICIAN: Dr. Ferro. SUMMARY: A 77-year-old white man known to me with multiple problems, among which an advanced metastatic carcinoma of the bladder with left ureteral obstruction, history of urinary retention and also cancer of the lung. He has been taken care of essentially at the Cancer Center. Today, he started having gross hematuria and was feeling weak. He was transferred from the [facility] to the ER. Dr. [place] called me and I told him to go ahead and put a 3-way catheter and give him blood. The patient is on Coumadin and his INR, which is aimed to be around 2 is 3.8 with a PT of 37.9, his creatinine is 1.88, his magnesium is low at 1 and his H and H was low. He received blood products. On CBI, the urine is bloody, but clear and no clots. He feels much better. IMPRESSION: Gross hematuria secondary to cancer of bladder and anticoagulation. RECOMMENDATIONS: Continue present management. I was recommended to hold the Coumadin if it is okay from the medical standpoint and manage accordingly. Plan was fully explained to the family and the patient. Job ID: [id number] DocumentID: [id number] Dictated Date: 03/04/2018 13:16:57 Phys Assistant Date: 03/04/2018 13:49:12 Dictated By: LANRE TALBERT MD
[2018-03-04] MEDS ORDERED: BETA15CR37 TP ×2 (14:38)
[2018-03-04] MEDS ORDERED: PANT20TA2 PO ×2 (14:38)
[2018-03-04] MEDS ORDERED: HYDR-3922 PO (14:38)
[2018-03-04] MEDS ORDERED: WARF-48 PO ×4 (14:38)
[2018-03-04] MEDS ORDERED: MELA10TA2 PO ×2 (14:38)
[2018-03-04] MEDS ORDERED: VALS80TA31 PO ×2 (14:38)
[2018-03-04] MEDS ORDERED: NS IV 500 ML 500 ML IV ONE (15:00)
--- NOTE | 2018-03-04 15:10 | Consultation-Cardiology ---
HPI-Cardiology Cardiology Consultation: Date of Consultation 03/04/18 Date of Admission Attending Physician Verna Ferro MD Admitting Physician Verna Ferro MD Consulting Physician Charles BRANDON MD HPI: Time Seen by a Provider: 16:22 Chief Complaint: Atrial fibrillation, hypovolemic shock due to bleeding. This is a 77-year-old patient of Dr. Ferro. He follows with me for chronic atrial fibrillation and has been on warfarin. The patient also has bladder and small cell lung cancer. He has been weak recently but was found to be bleeding in the cancer Center and sent directly to the ER. He was found to be bleeding from the urinary tract. His blood pressure was significantly low and therefore required aggressive fluid resuscitation. Low magnesium level was also noted. The patient denied any chest pain, shortness of breath, palpitations, near- syncope or syncope. Review of Systems-Cardiology Review of Systems Constitutional: As described under HPI; No As described under HPI, No no symptoms reported, No chills, No fever, No lightheadedness Eyes: No As described under HPI, No no symptoms reported, No blindness, No blurred vision, No contact lenses, No drainage, No decreased acuity, No foreign body sensation, No pain, No vision change Ears/Nose/Throat: No As described under HPI, No no symptoms reported, No chronic hearing loss, No ear discharge, No ear pain, No nasal drainage, No ulcerations Respiratory: No no symptoms reported; As described under HPI; No As described under HPI, No cough, No orthopnea, No shortness of breath, No SOB with excertion Cardiovascular: No no symptoms reported; As described under HPI; No As described under HPI, No chest pain, No edema, No irregular heart rate, No lightheadedness, No palpitations Gastrointestinal: No no symptoms reported, No As described under HPI, No abdomen distended, No abdominal pain, No blood streaked bowels, No constipation , No diarrhea, No nausea, No vomiting, No stool coloration changes Genitourinary: As described under HPI; No burning, No dysuria, No discharge, No frequency, No flank pain; hematuria; No urgency Skin: No rash, No skin related problems, No ulcerations Psychiatric/Neurological: No anxiety, No depression, No seizure, No focal weakness, No syncope Hematologic: No bleeding abnormalities All Other Systems Reviewed Negative Unless Noted: Yes RSE-Wcapra-Wipzsy Hx Patient Social History Marrital Status: Living Status: LIVES WITH HIS IN [place] Employed/Student: retired Alcohol Use: Denies Use Recreational Drug Use: No Smoking Status: Former Smoker Type Used: Cigars 2nd Hand Smoke Exposure: No Recent Foreign Travel: No Recent Infectious Disease Expo: No Physical Abuse Screen: No Sexual Abuse: No Immunizations Up To Date Tetanus Booster (TDap): Unknown Date of Pneumonia Vaccine: Jan 19, 2012 Date of Influenza Vaccine: Feb 07, 2014 Past Medical History PMH As described under Assessment. Family Medical History Family History: Ca 19 MOTHER G8 SISTER Cancer of mouth 19 MOTHER Cardiovascular disease 19 FATHER Allergies and Home Medications Allergies Coded Allergies: amoxicillin (Verified Allergy, Intermediate, HIVES, 09/13/17) nitroglycerin (Verified Allergy, Mild, DECREASED BP, 09/13/17) Home Medications Alprazolam 0.5 Mg Tablet, 0.5 MG PO TID PRN for ANXIETY, (Reported) Aspirin 81 Mg Tablet.dr, 81 MG PO HS, (Reported) Atorvastatin Calcium 80 Mg Tablet, 80 MG PO HS, (Reported) Betamethasone/Propylene Glyc 15 Gm Cream..g., TP BID, (Reported) Bumetanide 2 Mg Tablet, 2 MG PO DAILY PRN for SWELLING, (Reported) Carvedilol 6.25 Mg Tablet, 6.25 MG PO BID, (Reported) Cholecalciferol (Vitamin D3) 400 Unit Capsule, 400 UNIT PO DAILY, (Reported) Fluticasone Furoate 5.9 Ml [place].susp, 2 SPRAY NS DAILY PRN for CONGESTION, ( Reported) Hydrocodone/Acetaminophen 1 Each Tablet, 1 TAB PO Q6H PRN for PAIN-MODERATE, ( Reported) Lactobacillus Rhamnosus GG 1 Each Capsule, 1 CAP PO DAILY, (Reported) Melatonin 10 Mg Tablet, 10 MG PO HS, (Reported) Pantoprazole Sodium 20 Mg Tablet.dr, 20 MG PO DAILY, (Reported) Valsartan 80 Mg Tablet, 40 MG PO DAILY, (Reported) TAKES 1/2 (80MG) TABLET Warfarin Sodium 5 Mg Tablet, 2.5 MG PO TuTh, (Reported) TAKES 1/2 (5MG) TABLET Warfarin Sodium 5 Mg Tablet, 5 MG PO SuMoWeFrSa, (Reported) Patient Home Medication List Home Medication List Reviewed: Yes Physical Exam-Cardiology Physical Exam Vital Signs/I&O 03/04/18 03/04/18 03/04/18 03/04/18 09:20 12:07 12:25 13:00 Temp 99.4 99.1 Pulse 112 95 98 93 Resp 18 12 23 12 B/P (MAP) 84/63 (70) 88/64 (72) 108/69 (82) 125/62 (83) Pulse Ox 99 97 93 97 O2 Delivery Room Air Room Air 03/04/18 03/04/18 03/04/18 13:00 14:00 15:00 Pulse 92 88 87 Resp 19 11 B/P (MAP) 137/72 (93) 119/65 (83) Pulse Ox 99 96 O2 Delivery Room Air Room Air Capillary Refill : Less Than 3 Seconds Constitutional: appears stated age, AAO x 3; No apparent distress; well- developed, well-nourished HEENT: PERRL; No normal ENT inspection, No TMs normal, No pharynx normal, No scleral icterus (R), No scleral icterus (L), No pale conjunctivae (R), No pale conjunctivae (L), No photophobia, No TM abnormal (R), No TM abnormal (L), No pharyngeal erythema, No tonsillar exudate, No other, No discharge, No EOMI; hearing is well preserved; No hard of hearing; oral hygience is good; No ulceration, No xanthelasmas are seen Neck: No non-tender, No full range of motion, No supple, No normal inspection, No carotid bruit, No limited range of motion, No lymphadenopathy (R), No lymphadenopathy (L), No tender lateral, No tender midline, No thyromegaly, No other; carotid pulses are 2 + bilaterally; No with good upstrokes Respiratory: No accessory muscle use, No respiratory distress, No chest tender , No chest expansion is symmetric; chest is bilaterally symmetric; No lungs clear to percussion; lungs clear to auscultation; No crackles, No rhonchi, No rales, No stridor, No wheezing, No pleural rub, No other Cardiovascular: No regular rate-rhythm; irregularly irregular; No extra beats, No parasternal heave is noted, No JVD, No edema, No bradycardia, No tachycardia , No point of maximal impulse, No cardiac thrills are palpable; S1 and S2; No gallop/S3, No gallop/S4, No diastolic murmur, No systolic murmur, No friction rub, No click, No other Gastrointestinal: No tender, No soft, No round, No distended, No pulsatile mass , No organomegaly, No guarding, No rebound, No tenderness, No hernia, No mass, No audible bowel sounds, No abnormal bowel sounds, No abdominal bruits, No spleenomegaly, No other Rectal: deferred Extremities: No normal range of motion, No non-tender, No normal inspection, No pedal edema, No calf tenderness, No normal capillary refill, No pelvis stable , No calf tenderness, No inflammation, No pedal edema, No slow capillary refill , No swelling, No other, No abrasion, No clubbing, No cyanosis, No ecchymosis, No laceration, No no lower extremity edema bilateral, No significant edema, No tenderness, No wound Neurologic/Psychiatric: no motor/sensory deficits, alert, normal mood/affect, oriented x 3, power is 5/5 both on sides Skin: No rash, No ulcerations Data Review Labs Laboratory Tests 03/04/18 09:20: White Blood Count 2.7L, Red Blood Count 3.02L, Hemoglobin 8.2L, Hematocrit 25L, Mean Corpuscular Volume 83, Mean Corpuscular Hemoglobin 27, Mean Corpuscular Hemoglobin Concent 33, Red Cell Distribution Width 20.3H, Platelet Count 301, Mean Platelet Volume 10.4, Neutrophils (%) (Auto) 81H, Lymphocytes (%) (Auto) 13 , Monocytes (%) (Auto) 6, Eosinophils (%) (Auto) 0, Basophils (%) (Auto) 1, Neutrophils # (Auto) 2.2, Lymphocytes # (Auto) 0.3L, Monocytes # (Auto) 0.2, Eosinophils # (Auto) 0.0, Basophils # (Auto) 0.0, Prothrombin Time 37.9H, INR Comment 3.8H, Activated Partial Thromboplast Time 47H, Sodium Level 139, Potassium Level 4.5, Chloride Level 106, Carbon Dioxide Level 18L, Anion Gap 15H , Blood Urea Nitrogen 35H, Creatinine 1.88H, Estimat Glomerular Filtration Rate 35, BUN/Creatinine Ratio 19, Glucose Level 130H, Calcium Level 8.5, Corrected Calcium 9.1, Magnesium Level 1.0*L, Total Bilirubin 1.6H, Aspartate Amino Transf (AST/SGOT) 25, Alanine Aminotransferase (ALT/SGPT) 26, Alkaline Phosphatase 92, Total Protein 6.6, Albumin 3.3 A/P-Cardiology Assessment/Admission Diagnosis Small cell lung cancer, bladder cancer, Hypovolemic shock, Supratherapeutic INR, Chronic atrial fibrillation Plan Small cell lung cancer, bladder cancer, deferred to the cancer Center. Hypovolemic shock, aggressive fluid resuscitation. Supratherapeutic INR, DC warfarin. Chronic atrial fibrillation, DC warfarin. I spoke at length to the patient and recommended that we no longer continue him on warfarin unless he is cleared by Dr. Ferro and Dr. Brooke. There is a small risk of stroke but his risk of bleeding is much higher, therefore I do not recommend subsequent warfarin therapy. Thank you for your consultation. Please call me if you have any questions. Liban Brandon MD, FACP, FACC, FSCAI, FHRS, CCDS Interventional Cardiology Cardiac Electrophysiology Vascular Medicine and Endovascular Interventions Clinical Quality Measures DVT/VTE Risk/Contraindication: Contraindications-Pharm: Other *list below* Other: ACTIVE BLEEDING, CANNOT HAVE LOVENOX, WILL HOLD COUMADIN Charles BRANDON MD Mar 04, 2018 15:10
[2018-03-04] MEDS ORDERED: FLU QUADRIvalent (5+ YOA) 2018-2019 (AFLURIA) 0.5 ML IM ONE (17:00)
[2018-03-04 18:21] LABS: HEMOGLOBIN 6.5 G/DL (13.3-17.7)
[2018-03-04] MEDS ORDERED: FAMOTIDINE 20 MG (PEPCID) TABLET PO SCH (21:00)
[2018-03-04] MEDS ORDERED: fentaNYL INJECTION 100 MCG/2 ML AMP ONE (21:25)
[2018-03-04] MEDS ORDERED: HYDROcodone/APAP 5 MG/325 MG (LORTAB) TAB ONE (21:25)
[2018-03-04] MEDS ORDERED: ALPRAZolam 0.5 MG (XANAX) TAB ONE (21:26)
[2018-03-04] MEDS: HYDROcodone/APAP 5 MG/325 MG (LORTAB) TAB PO SCH (22:15)
[2018-03-04] MEDS ORDERED: ALPRAZolam 0.5 MG (XANAX) TAB PO PRN (22:15)
[2018-03-04] MEDS ORDERED: NS (IVPB) 250 ML ONE (22:31)
[2018-03-04] MEDS: fentaNYL INJECTION 100 MCG/2 ML AMP IV PRN ×2 (22:37→23:35)
[2018-03-05] VITALS (39 sets, daily range): BP systolic 96–182; BP diastolic 47–99
[2018-03-05] MEDS: HYDROcodone/APAP 5 MG/325 MG (LORTAB) TAB PO SCH ×4 (03:50→21:45)
[2018-03-05 04:15] LABS: BASOPHILS % (AUTO) 0 % (0-10); EOSINOPHILS % (AUTO) 1 % (0-10); HEMATOCRIT 23 % (40-54); HEMOGLOBIN 7.6 G/DL (13.3-17.7); LYMPHOCYTES # (AUTO) 0.3 X 10^3 (1.0-4.0); LYMPHOCYTES % (AUTO) 15 % (12-44); MEAN CORPUSCULAR HEMOGLOBIN 28 PG (25-34); MEAN CORPUSCULAR HGB CONC 34 G/DL (32-36); MEAN CORPUSCULAR VOLUME 84 FL (80-99); MEAN PLATELET VOLUME 10.2 FL (7.4-10.4); MONOCYTES # (AUTO) 0.1 X 10^3 (0.0-1.0); MONOCYTES % (AUTO) 6 % (0-12); NEUTROPHILS # (AUTO) 1.6 X 10^3 (1.8-7.8); NEUTROPHILS % (AUTO) 80 % (42-75); PLATELET COUNT 175 10^3/uL (130-400); RED BLOOD COUNT 2.69 10^6/uL (4.35-5.85); RED CELL DISTRIBUTION WIDTH 18.2 % (10.0-14.5)
[2018-03-05 04:24] LABS: INR 2.5 (0.8-1.4); PROTHROMBIN TIME PATIENT 27.2 SEC (12.2-14.7)
[2018-03-05 04:32] LABS: BUN/CREATININE RATIO 25; CALCIUM 7.4 MG/DL (8.5-10.1); CARBON DIOXIDE 21 MMOL/L (21-32); CHLORIDE 107 MMOL/L (98-107); CREATININE SERUM 1.13 MG/DL (0.60-1.30); GFR ESTIMATED > 60; GLUCOSE 107 MG/DL (70-105); MAGNESIUM 1.8 MG/DL (1.8-2.4); PHOSPHORUS 2.8 MG/DL (2.3-4.7); POTASSIUM 3.9 MMOL/L (3.6-5.0); SODIUM 137 MMOL/L (135-145)
[2018-03-05 06:34] LABS: HEMOGLOBIN 7.3 G/DL (13.3-17.7)
[2018-03-05] MEDS: POTASSIUM CL 10MEQ/50ML IVPB 50 ML IV SCH (06:51)
[2018-03-05] MEDS: CATHETER FLUSH 10 ML SYR IV SCH ×2 (06:52→14:20)
[2018-03-05] MEDS: KCL 20 MEQ TAB (K-DUR) PO SCH (06:52)
[2018-03-05] MEDS: MAGNESIUM 1 GM/100 ML IVPB 100 ML IV SCH (06:52)
[2018-03-05] MEDS ORDERED: LIDOCAINE UROJET 2% GEL 10 ML PKG ONE (08:31)
--- NOTE | 2018-03-05 09:08 | Diagnostic Imaging Report ---
Indication: Dyspnea with hematuria. Comparison: 02/17/2018. Discussion: Single portable upright view of the chest was obtained. Low lung volumes. Mass within the right midlung is again noted. There is increased interstitial thickness which is nonspecific and could be seen with poor inspiratory effort though underlying pneumonia or edema is not excluded. More patchy consolidation is noted within the left lung base, possible pneumonia. Mild cardiomegaly is stable. No definite pleural fluid. No pneumothorax. Median sternotomy and left-sided central venous catheter stable. Impression: 1. Worsening pulmonary opacities as described. Dictated by: Dictated on workstation # [id number]
--- NOTE | 2018-03-05 09:58 | Cardiology Progress Note ---
Subjective Date Seen by Provider: Mar 05, 2018 Time Seen by Provider: 09:53 Subjective/Events-last exam Patient was seen and evaluated, feeling better, still having active bleeding, no chest pain, no other symptoms Review of Systems General: No Chills, No Night Sweats, No Fatigue, No Malaise, No Appetite, No Other HEENT: No Head Aches, No Visual Changes, No Eye Pain, No Ear Pain, No Dysphasia , No Sinus Congestion, No Post Nasal Drip, No Sore Throat, No Other Pulmonary: No Dyspnea, No Cough, No Pleuritic Chest Pain, No Other Cardiovascular: Edema; No: Chest Pain, Palpitations, Orthopnea, Paroxysmal Noc. Dyspnea, Lt Headedness, Other Objective-Cardiology Exam Last Set of Vital Signs Vital Signs 03/05/18 03/05/18 03/05/18 06:00 07:00 08:00 Temp 97.4 Pulse 92 Resp 33 B/P (MAP) 116/51 (72) Pulse Ox 98 O2 Delivery Room Air Capillary Refill : Less Than 3 Seconds I&O Intake and Output 03/05/18 00:00 Intake Total 1936 ml Output Total 950 ml Balance 986 ml IV Total 1600 ml Other 336 ml Output Urine Total 950 ml # Bowel Movements 1 Daily Weight Change No General: Alert, Oriented X3, Cooperative HEENT: Atraumatic, PERRLA Neck: Supple, No JVD, No Thyromegaly Lungs: Clear to Auscultation, Normal Air Movement Heart: Normal S1, Normal S2, No Murmurs, Other (irregular, sm at lsb) Abdomen: Normal Bowel Sounds, Soft, No Tenderness, No Hepatosplenomegaly, No Masses Extremities: No Clubbing, No Cyanosis, Normal Pulses, No Tenderness/Swelling, Other (mild edema) Skin: No Rashes, No Breakdown, No Significant Lesion Neuro: Normal Speech, Normal Tone, Sensation Intact Psych/Mental Status: Mental Status NL, Mood NL Results Lab Laboratory Tests 03/04/18 17:55 03/05/18 03:51 03/05/18 06:23 A/P-Cardiology Admission Diagnosis Hematuria Bladder and cancer Lung cancer Atrial fibrillation Assessment/Plan Gross hematuria, still having active bleeding Supra-therapeutic INR, received FFP yesterday, will give additional unit and monitor Anemia, receiving transfusion. Continue to monitor Small cell lung cancer, bladder cancer, managed by medical team Atrial fibrillation, tried to achieve adequate rate control. Continue to monitor CAD, status post CABG, no active issues, Continue to monitor Carotid arterial disease, history of carotid endarterectomy, stable area did no active issues. Active smoking, smoking cessation is recommended. Clinical Quality Measures DVT/VTE Risk/Contraindication: Risk Factor Score Per Nursin RFS Level Per Nursing on Admit: 4+=Very High Contraindications-Pharm: Other *list below* Other: ACTIVE BLEEDING, CANNOT HAVE LOVENOX, WILL HOLD COUMADIN NAYELI DODSON MD Mar 05, 2018 09:58
[2018-03-05] MEDS: FAMOTIDINE 20 MG (PEPCID) TABLET PO SCH ×2 (10:02→20:37)
--- NOTE | 2018-03-05 10:11 | Progress Note-Urology ---
Progress Note-Urology Progress Notes/Assess & Plan Progress/Assessment & Plan PATIENT HAS SOME CLOTS WHICH NECESSITATED CHANGING BLACKBURN. DRAINING WELL WITH MODERATE CBI SPEED. COMPLAINS OF SUPRAPUBIC PAIN AND TENDERNESS. BLADDER SCAN ONLY 100CC. LABS CHECKED. NO NEED FOR SURGERY AT THIS POINT. PLAN 1. FFP IF OK WITH CARDIOLOGY 2. 2 UNITS OF PACKED CELLS AND CHECK H&H 2 HOURS LATER 3. B&O SUPPOSITORIES 30MG Q 6HRS PRN SPASMS 4. KEEP NPO IN CASE NEEDS OR LATER 5. LABS IN AM Final Diagnosis GROSS HEMATURIA LANRE TALBERT MD Mar 05, 2018 10:11
[2018-03-05] MEDS ORDERED: NS IV 1000 ML 1,000 ML ONE (10:49)
[2018-03-05] MEDS: BELLADONNA ALK/OPIUM (B & O) 30 MG SUPP PR PRN (11:16)
--- NOTE | 2018-03-05 12:28 | Progress Note-Hospitalist ---
Subjective HPI/CC On Admission Date Seen by Provider: Mar 05, 2018 Time Seen by Provider: 11:00 Subjective/Events-last exam Receive 3 units of blood yesterday with 1 unit of FFP and now giving another 2 units with 2 more units of FFP Clots continue and urology may need to perform procedure due to the extensive bleeding Now having blood in the stool so we'll consult Dr. Graf who had placed the port Overall very complex case becoming more and more complex Guarded prognosis Having pain so will initiate IV fentanyl Coarse breath sounds are noted and he refuses nebulizer treatment so we'll initiate incentive spirometer Review of Systems General: Fatigue Gastrointestinal: Nausea, Abdominal Pain, Melena Genitourinary: Hematuria Objective Exam Vital Signs Vital Signs Date Time Temp Pulse Resp B/P (MAP) Pulse Ox O2 Delivery O2 Flow Rate FiO2 03/05/18 11:20 97.6 110 23 145/97 96 Room Air Capillary Refill : Less Than 3 Seconds General Appearance: WD/WN, Chronically ill, Mild Distress (due to pain) Respiratory: No Accessory Muscle Use, No Respiratory Distress, Crackles, Decreased Breath Sounds, Wheezing Cardiovascular: Regular Rate, Rhythm, No Edema, No Gallop, No JVD, No Murmur, Normal Peripheral Pulses Neurologic/Psychiatric: Alert, Oriented x3, No Motor/Sensory Deficits, Normal Mood/Affect Results/Procedures Lab Laboratory Tests 03/04/18 17:55 03/05/18 03:51 03/05/18 06:23 Patient resulted labs reviewed. 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 HYPOTENSION DUE TO BLOOD LOSS CORONARY ARTERY DISEASE WITH HX OF CABG PAROXYSMAL ATRIAL FIBRILLATION New conditions: Acute GI bleed consulting Dr Graf Plan: Transfuse prn FFP Fentanyl IS since refuses Nebs since they cause sore throat Guarded prognosis DNR Diagnosis/Problems Diagnosis/Problems (1) Hypovolemic shock Status: Acute (2) Bladder hemorrhage Status: Acute (3) Rales Status: Acute (4) Abdominal pain Status: Acute Qualifiers: Abdominal location: generalized Qualified Codes: R10.84 - Generalized abdominal pain (5) Gastrointestinal bleeding Status: Acute Qualifiers: GI bleed type/associated pathology: unspecified gastrointestinal hemorrhage type Qualified Codes: K92.2 - Gastrointestinal hemorrhage, unspecified (6) Poor prognosis Status: Chronic (7) DNR (do not resuscitate) Status: Chronic (8) Acute blood loss anemia Status: Acute (9) Urinary obstruction Status: Acute (10) Hypomagnesemia Status: Acute (11) Bladder cancer Status: Chronic Qualifiers: Bladder location: unspecified site Qualified Codes: C67.9 - Malignant neoplasm of bladder, unspecified (12) Lung cancer Status: Chronic Qualifiers: Lung location: unspecified part of lung (13) Renal failure (ARF), acute on chronic Status: Acute Qualifiers: Acute renal failure type: unspecified Chronic kidney disease stage: stage 3 (moderate) Qualified Codes: N17.9 - Acute kidney failure, unspecified; N18.3 - Chronic kidney disease, stage 3 (moderate) (14) Bladder irritation Status: Acute (15) Transfusion of blood during current hospitalisation Status: Acute (16) Hypertension Status: Chronic (17) CAD (coronary artery disease) Status: Chronic Qualifiers: Coronary Disease-Associated Artery/Lesion type: [place] artery [place] vs. transplanted heart: rampart heart Associated angina: without angina Qualified Codes: I25.10 - Atherosclerotic heart disease of [place] coronary artery without angina pectoris (18) Atrial fibrillation Status: Chronic (19) Coagulopathy Status: Acute Clinical Quality Measures DVT/VTE Risk/Contraindication: Risk Factor Score Per Nursin RFS Level Per Nursing on Admit: 4+=Very High Contraindications-Pharm: Other *list below* Other: ACTIVE BLEEDING, CANNOT HAVE LOVENOX, WILL HOLD COUMADIN MARIO BLACK DO Mar 05, 2018 12:28
--- NOTE | 2018-03-05 12:57 | CONSULTATION REPORT ---
DATE OF SERVICE: 03/05/2018 ATTENDING PRIMARY CARE PHYSICIAN: Dr. Ferro. ADMITTING PHYSICIAN: Dr. Maxwell. HISTORY OF PRESENT ILLNESS: The patient is a 77-year-old male known to us. We had initially seen him in 01/2014 for abdominal pain. He underwent a CT scan, which did show an acute appendicitis and he underwent a laparoscopic appendectomy. 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 He was seen at [facility] and due to his other medical comorbidities, recommended no major surgery. The patient opted for chemotherapy and radiation, which he is currently undergoing. He also does have a history of atrial fibrillation and is on Coumadin. He presented with weakness and hematuria. Since being admitted, he was found to be anemic and also, he did have a bowel movement with a small amount of blood. His INR was also elevated. PAST MEDICAL HISTORY: Hypertension, hypercholesterolemia, coronary artery disease, peripheral vascular disease, bladder cancer, lung cancer, atrial fibrillation, anxiety. PAST SURGICAL HISTORY: Coronary artery bypass grafting three vessels in 1990, bilateral carotid endarterectomy in 1991, cardiac catheterization in 2011, TURP in 2008, laparoscopic appendectomy in 2013, left subclavian [place] catheter placement on 02/17/2018. ALLERGIES: AMOXICILLIN AND NITROGLYCERIN. MEDICATIONS: 1. Protonix 40 mg daily. 2. Aspirin 81 mg daily. 3. Coumadin 5 mg daily. 4. Alprazolam 0.5 mg p.r.n. 5. Atorvastatin 80 mg daily. 6. Bumetanide 2 mg daily. 7. Vitamin D daily. 8. Valsartan 40 mg daily. 9. Carvedilol 6.25 mg daily. 10. Hydrocodone q.6 hours p.r.n. 11. Flomax 0.4 mg daily. 12. Fenofibrate 145 mg daily. 13. Hydralazine 10 mg b.i.d. SOCIAL HISTORY: Previous smoke, quit in 2010, 20 pack years. Negative alcohol. FAMILY HISTORY: Mother, gastric cancer. Sister, breast cancer. Father, myocardial infarction in his 70s. REVIEW OF SYSTEMS: This is a slightly thin appearing male that is pale in complexion. He has not experienced any shortness of breath or difficulty in breathing. No chest pain, palpitations, or diaphoresis. No nausea or vomiting. No hematemesis or coffee ground emesis. He did have a bowel movement earlier today with some maroon color clotted stools identified. He is also experiencing significant hematuria. No fever or chills with weight loss in the past several months. All other review of systems is negative. PHYSICAL EXAMINATION: VITAL SIGNS: Temperature 97.6, blood pressure 145/97, pulse 110, respirations 23, pulse ox 96% on 2 liters nasal cannula. CHEST: A few scattered rales and rhonchi bilaterally. HEART: Regular. No murmurs. EXTREMITIES: No lower extremity edema. Negative Homans sign. HEENT: No scleral icterus. NECK: No cervical lymphadenopathy. ABDOMEN: Soft. There is pain upon palpation of the suprapubic region. No peritoneal signs. SKIN: Warm, dry. LABORATORY DATA: Hemoglobin 7.3, hematocrit 22, platelets 175, BUN 28, creatinine 1.13. Initial INR 3.8, today it is 2.5. ASSESSMENT AND PLAN: A 77-year-old male with stage IV bladder cancer as well as lung cancer. He is currently undergoing chemotherapy and radiation. He also does have a longstanding history of coronary artery disease as well as peripheral vascular disease as well as atrial fibrillation, is on aspirin and Coumadin. He is not a candidate for major surgical procedures. He did have a colonoscopy done in the past, which did not show any significant lesions. At this time, we will recommend conservative management. Urology was consulted and they proceeded with continuous bladder irrigation. At this time, his vital signs are stable and he is being resuscitated with fluids as well as blood. We will recommend his current regimen and allow his INR to correct on its own. Urology reports that if the bleeding from his urinary tract does not stop, he may need cystoscopy and embolization or cauterization. From a general surgical standpoint, we will continue to monitor his stools; however, if he does not have any significant rectal bleeding, we do not feel that he needs endoscopy at this time. Job ID: [id number] DocumentID: [id number] Dictated Date: 03/05/2018 12:28:48 Angledozer Operator Date: 03/05/2018 12:56:54 Dictated By: NEHEMIAH DILLON MD
[2018-03-05] MEDS: fentaNYL INJECTION 100 MCG/2 ML AMP IVP PRN ×3 (16:39→22:28)
[2018-03-05] MEDS ORDERED: CYCLOBENZAPRINE 10 MG (FLEXERIL) TAB PO ONE (22:15)
[2018-03-05] MEDS: MAGNESIUM 1 GM/D5W 100 ML IVPB IV SCH ×2 (22:28→23:35)
[2018-03-06] VITALS (49 sets, daily range): BP systolic 93–157; BP diastolic 51–81
[2018-03-06] MEDS: fentaNYL INJECTION 100 MCG/2 ML AMP IVP PRN ×2 (00:49→04:48)
[2018-03-06 03:45] LABS: BASOPHILS % (AUTO) 1 % (0-10); EOSINOPHILS % (AUTO) 1 % (0-10); LYMPHOCYTES # (AUTO) 0.3 X 10^3 (1.0-4.0); LYMPHOCYTES % (AUTO) 17 % (12-44); MEAN CORPUSCULAR HEMOGLOBIN 27 PG (25-34); MEAN CORPUSCULAR HGB CONC 33 G/DL (32-36); MEAN CORPUSCULAR VOLUME 82 FL (80-99); MEAN PLATELET VOLUME 10.6 FL (7.4-10.4); MONOCYTES # (AUTO) 0.2 X 10^3 (0.0-1.0); MONOCYTES % (AUTO) 9 % (0-12); NEUTROPHILS # (AUTO) 1.5 X 10^3 (1.8-7.8); NEUTROPHILS % (AUTO) 73 % (42-75); PLATELET COUNT 143 10^3/uL (130-400); RED BLOOD COUNT 2.45 10^6/uL (4.35-5.85); RED CELL DISTRIBUTION WIDTH 20.6 % (10.0-14.5); WHITE BLOOD COUNT 2.1 10^3/uL (4.3-11.0)
[2018-03-06 03:53] LABS: INR 2.4 (0.8-1.4)
[2018-03-06 03:58] LABS: HEMATOCRIT 20 % (40-54); HEMOGLOBIN 6.7 G/DL (13.3-17.7)
[2018-03-06 04:06] LABS: CALCIUM 7.9 MG/DL (8.5-10.1); CREATININE SERUM 1.34 MG/DL (0.60-1.30); MAGNESIUM 2.2 MG/DL (1.8-2.4); PHOSPHORUS 2.9 MG/DL (2.3-4.7)
[2018-03-06] MEDS: HYDROcodone/APAP 5 MG/325 MG (LORTAB) TAB PO SCH (04:48)
[2018-03-06] MEDS ORDERED: VITAMIN K IV ONE ×2 (05:30)
[2018-03-06] MEDS ORDERED: NS IV ONE ×2 (05:30)
[2018-03-06] MEDS: POTASSIUM CL 10MEQ/50ML IVPB 50 ML IV SCH (08:03)
[2018-03-06] MEDS: CATHETER FLUSH 10 ML SYR IV SCH ×4 (08:03→21:27)
[2018-03-06] MEDS: KCL 20 MEQ TAB (K-DUR) PO SCH (08:04)
[2018-03-06] MEDS: MAGNESIUM 1 GM/100 ML IVPB 100 ML IV SCH (08:04)
--- NOTE | 2018-03-06 08:44 | Cardiology Progress Note ---
Subjective Date Seen by Provider: Mar 06, 2018 Time Seen by Provider: 08:42 Subjective/Events-last exam Patient is in bed, still having hematuria, borderline tachycardic Review of Systems General: No Chills, No Night Sweats, No Fatigue, No Malaise, No Appetite, No Other HEENT: No Head Aches, No Visual Changes, No Eye Pain, No Ear Pain, No Dysphasia , No Sinus Congestion, No Post Nasal Drip, No Sore Throat, No Other Pulmonary: No Dyspnea, No Cough, No Pleuritic Chest Pain, No Other Cardiovascular: No: Chest Pain, Palpitations, Orthopnea, Paroxysmal Noc. Dyspnea, Edema, Lt Headedness, Other Objective-Cardiology Exam Last Set of Vital Signs Vital Signs 03/06/18 06:17 Temp 99.3 Pulse 101 Resp 16 B/P (MAP) 109/60 Pulse Ox 98 O2 Delivery Room Air Capillary Refill : Less Than 3 Seconds I&O Intake and Output 03/06/18 00:00 Intake Total 1974 ml Output Total 1675 ml Balance 299 ml Intake Oral 540 ml Other 1434 ml Output Urine Total 1675 ml # Bowel Movements 2 General: Alert, Oriented X3, Cooperative HEENT: Atraumatic, PERRLA Neck: Supple, No JVD, No Thyromegaly Lungs: Clear to Auscultation, Normal Air Movement Heart: Normal S1, Normal S2, No Murmurs, Other (irregular, sm at lsb) Abdomen: Normal Bowel Sounds, Soft, No Tenderness, No Hepatosplenomegaly, No Masses Extremities: No Clubbing, No Cyanosis, Normal Pulses, No Tenderness/Swelling, Other (mild edema) Skin: No Rashes, No Breakdown, No Significant Lesion Neuro: Normal Speech, Normal Tone, Sensation Intact Psych/Mental Status: Mental Status NL, Mood NL Results Lab Laboratory Tests 03/06/18 03:24 A/P-Cardiology Admission Diagnosis Hematuria Bladder and cancer Lung cancer Atrial fibrillation Assessment/Plan Gross hematuria, still having active bleeding, possible cysto Anemia, receiving transfusion and FFP, managed by primary care team Small cell lung cancer, bladder cancer, managed by medical team Atrial fibrillation, borderline tachycardia, monitor response to blood and FFP transfusion CAD, status post CABG, no active issues, Continue to monitor Carotid arterial disease, history of carotid endarterectomy, stable area did no active issues. Active smoking, smoking cessation is recommended. Clinical Quality Measures DVT/VTE Risk/Contraindication: Risk Factor Score Per Nursin RFS Level Per Nursing on Admit: 4+=Very High Contraindications-Pharm: Other *list below* Other: ACTIVE BLEEDING, CANNOT HAVE LOVENOX, WILL HOLD COUMADIN NAYELI DODSON MD Mar 06, 2018 08:44
[2018-03-06] MEDS ORDERED: HYDROcodone/APAP 5 MG/325 MG (LORTAB) TAB ONE (10:13)
[2018-03-06] MEDS: FAMOTIDINE 20 MG (PEPCID) TABLET PO SCH (10:16)
[2018-03-06] MEDS: BELLADONNA ALK/OPIUM (B & O) 30 MG SUPP PR PRN ×2 (10:17→17:35)
[2018-03-06] MEDS: HYDROcodone/APAP 5 MG/325 MG (LORTAB) TAB PO PRN ×3 (10:18→21:10)
--- NOTE | 2018-03-06 10:18 | Progress Note-Urology ---
Progress Note-Urology Progress Notes/Assess & Plan Progress/Assessment & Plan STILL HAVING GROSS HEMATURIA AND SMALL CLOTS. RECEIVED 1 UNIT PACKED CELLS AND TO GET 4U FFP. HB 6.5 AND INR 2.4. OPTIONS DISCUSSED WITH PATIENT AND , CONTINUE CONSERVATIVE TREATMENT VS OR. WE WILL ASK THE INPUT AND RECOMMENDATIONS OF ANESTHESIA. KEEP HIM NPO AND ONE MORE UNIT OF BLOOD Final Diagnosis GROSS HEMATURIA LANRE TALBERT MD Mar 06, 2018 10:18
--- NOTE | 2018-03-06 10:32 | Progress Note (SOAP) ---
Subjective Date Seen by a Provider: Mar 06, 2018 Time Seen by a Provider: 10:15 Subjective/Events-last exam doing ok. vital signs stable and clinical status stabls as well. continue to have hematuria thru CBI. INR still elevated. Objective Exam Vital Signs Date Time Temp Pulse Resp B/P (MAP) Pulse Ox O2 Delivery O2 Flow Rate FiO2 03/06/18 10:24 98.8 109 17 132/66 96 Room Air 03/06/18 10:00 99.4 106 15 127/67 96 Room Air 03/06/18 09:00 102 19 118/64 (82) 98 Room Air 03/06/18 08:35 99.2 94 17 116/65 98 Room Air 03/06/18 08:00 100 14 106/60 (75) 96 Room Air 03/06/18 07:00 95 14 111/57 (75) 99 Room Air 03/06/18 07:00 96 03/06/18 06:17 99.3 101 16 109/60 98 Room Air 03/06/18 06:00 102 102/51 (68) 97 Room Air 03/06/18 05:55 99.2 104 16 100/60 97 Room Air 03/06/18 05:00 107 120/64 (82) 99 Room Air 03/06/18 04:48 98.9 03/06/18 04:00 Room Air 03/06/18 04:00 99.7 03/06/18 04:00 100 113/56 (75) 96 Room Air 03/06/18 03:00 97 118/60 (79) 97 Room Air 03/06/18 02:00 106 28 115/60 (78) 95 Room Air 03/06/18 01:00 93 35 114/60 (78) 96 Room Air 03/06/18 01:00 93 03/06/18 00:30 98.9 85 22 109/61 97 Room Air 03/06/18 00:00 Room Air 03/06/18 00:00 105 19 125/60 (81) 95 Room Air 03/06/18 00:00 99.3 03/05/18 23:00 107 14 100/52 (68) 97 Room Air 03/05/18 22:15 98.5 115 16 112/60 98 03/05/18 22:15 99.3 10/27/18 22:11 Room Air 03/05/18 22:00 118 34 96/47 (63) 99 Room Air 03/05/18 21:53 98.6 107 22 145/70 97 Room Air 03/05/18 21:07 99.3 03/05/18 21:00 114 33 145/70 (95) 96 Room Air 03/05/18 20:30 98.8 110 20 145/70 97 Room Air 03/05/18 20:00 99.1 03/05/18 20:00 Room Air 03/05/18 20:00 105 14 117/57 (77) 97 Room Air 03/05/18 19:00 99.8 124 21 115/68 (84) 98 Room Air 03/05/18 19:00 110 03/05/18 18:00 107 36 107/55 (72) 98 Room Air 03/05/18 17:36 98.6 104 17 100/53 97 Room Air 03/05/18 17:21 98.9 98 18 107/59 97 Room Air 03/05/18 17:05 99.4 111 20 107/59 95 Room Air 03/05/18 17:00 105 18 107/59 (75) 96 Room Air 03/05/18 16:36 99.4 03/05/18 16:00 Room Air 03/05/18 16:00 103 20 182/86 (118) 98 Room Air 03/05/18 15:00 102 24 108/56 (73) 98 Room Air 03/05/18 14:34 98.5 105 20 96/56 96 03/05/18 14:19 99.2 108 16 96/50 98 03/05/18 14:00 96 16 96/50 (65) 98 Room Air 03/05/18 13:10 99.7 106 18 105/60 98 Room Air 03/05/18 13:00 110 03/05/18 13:00 102 24 108/56 (73) 98 Room Air 03/05/18 12:00 Room Air 03/05/18 12:00 105 23 114/59 (77) 98 Room Air 03/05/18 11:20 97.6 110 23 145/97 96 Room Air 03/05/18 11:20 97.6 03/05/18 11:05 98.3 120 20 129/62 99 Room Air 03/05/18 11:00 126 20 129/62 (84) 99 Room Air I & O 03/06/18 07:00 Intake Total 1674 ml Output Total 1675 ml Balance -1 ml Capillary Refill : Less Than 3 Seconds General Appearance: No Apparent Distress HEENT: PERRL/EOMI Neck: Full Range of Motion Respiratory: Chest Non Tender, Lungs Clear Cardiovascular: Regular Rate, Rhythm Gastrointestinal: normal bowel sounds, non tender, soft Extremity: Normal Capillary Refill Neurologic/Psychiatric: Alert, Oriented x3 Skin: Normal Color Lymphatic: No Adenopathy Results Lab Laboratory Tests 03/06/18 03:24: White Blood Count 2.1L, Red Blood Count 2.45L, Hemoglobin 6.7*L, Hematocrit 20*L , Mean Corpuscular Volume 82, Mean Corpuscular Hemoglobin 27, Mean Corpuscular Hemoglobin Concent 33, Red Cell Distribution Width 20.6H, Platelet Count 143, Mean Platelet Volume 10.6H, Neutrophils (%) (Auto) 73, Lymphocytes (%) (Auto) 17 , Monocytes (%) (Auto) 9, Eosinophils (%) (Auto) 1, Basophils (%) (Auto) 1, Neutrophils # (Auto) 1.5L, Lymphocytes # (Auto) 0.3L, Monocytes # (Auto) 0.2, Eosinophils # (Auto) 0.0, Basophils # (Auto) 0.0, Prothrombin Time 26.0H, INR Comment 2.4H, Sodium Level 139, Potassium Level 4.0, Chloride Level 108H, Carbon Dioxide Level 23, Anion Gap 8, Blood Urea Nitrogen 33H, Creatinine 1.34H , Estimat Glomerular Filtration Rate 52, BUN/Creatinine Ratio 25, Glucose Level 106H, Calcium Level 7.9L, Phosphorus Level 2.9, Magnesium Level 2.2 Microbiology 03/04/18 MRSA Screen - Final, Complete MRSA not isolated Assessment/Plan Assessment/Plan Assess & Plan/Chief Complaint metastatic bladder ca with hematuria and rectal bleed. INR still elevated. Hb decreased after 4 units. continue conservative per urology for now with correction INR with FFP and blood. Clinical Quality Measures DVT/VTE Risk/Contraindication: Risk Factor Score Per Nursin RFS Level Per Nursing on Admit: 4+=Very High Contraindications-Pharm: Other *list below* Other: ACTIVE BLEEDING, CANNOT HAVE LOVENOX, WILL HOLD COUMADIN NEHEMIAH DILLON MD Mar 06, 2018 10:32 am
--- NOTE | 2018-03-06 10:42 | Progress Note-Hospitalist ---
Subjective HPI/CC On Admission Date Seen by Provider: Mar 06, 2018 Time Seen by Provider: 10:45 Subjective/Events-last exam Patient continues to become more complex Bleeding continues Hemoglobin dropping again Will have a total of 6 units of packed red blood cell transfusion as of today INR still elevated at 2.4 and receiving multiple packs of fresh frozen plasma Appreciate urology and general surgery consultation but patient wants to continue medical management and transitional cell bladder cancer does not have resolution of bleeding with cautery so will continue the current medical treatment Patient appears to be strained and declining DO NOT RESUSCITATE is reasonable Review of Systems General: Fatigue Gastrointestinal: Melena Genitourinary: Hematuria Objective Exam Vital Signs Vital Signs Date Time Temp Pulse Resp B/P (MAP) Pulse Ox O2 Delivery O2 Flow Rate FiO2 03/06/18 11:00 111 17 105/60 (75) 98 Room Air 03/06/18 10:24 98.8 Capillary Refill : Less Than 3 Seconds General Appearance: No Apparent Distress, WD/WN, Chronically ill, Cachetic, Other (declining) Respiratory: Chest Non Tender, No Accessory Muscle Use, No Respiratory Distress , Crackles, Decreased Breath Sounds Cardiovascular: No Edema, No Gallop, No JVD, No Murmur, Normal Peripheral Pulses, Systolic Murmur, Irregularly Irregular Gastrointestinal: Soft Neurologic/Psychiatric: Alert, Oriented x3, No Motor/Sensory Deficits, Normal Mood/Affect Results/Procedures Lab Laboratory Tests 03/06/18 03:24 Patient resulted labs reviewed. 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 HYPOTENSION DUE TO BLOOD LOSS CORONARY ARTERY DISEASE WITH HX OF CABG PAROXYSMAL ATRIAL FIBRILLATION New conditions: Acute GI bleed consulting Dr Graf Plan: Transfuse prn FFP Fentanyl use is limited due to hypotension source IS since refuses Nebs since they cause sore throat Guarded prognosis DNR Declining Diagnosis/Problems Diagnosis/Problems (1) Hypovolemic shock Status: Acute (2) Bladder hemorrhage Status: Acute (3) Rales Status: Acute (4) Abdominal pain Status: Acute Qualifiers: Abdominal location: generalized Qualified Codes: R10.84 - Generalized abdominal pain (5) Gastrointestinal bleeding Status: Acute Qualifiers: GI bleed type/associated pathology: unspecified gastrointestinal hemorrhage type Qualified Codes: K92.2 - Gastrointestinal hemorrhage, unspecified (6) Poor prognosis Status: Chronic (7) DNR (do not resuscitate) Status: Chronic (8) Acute blood loss anemia Status: Acute (9) Urinary obstruction Status: Acute (10) Hypomagnesemia Status: Acute (11) Bladder cancer Status: Chronic Qualifiers: Bladder location: unspecified site Qualified Codes: C67.9 - Malignant neoplasm of bladder, unspecified (12) Lung cancer Status: Chronic Qualifiers: Lung location: unspecified part of lung (13) Renal failure (ARF), acute on chronic Status: Acute Qualifiers: Acute renal failure type: unspecified Chronic kidney disease stage: stage 3 (moderate) Qualified Codes: N17.9 - Acute kidney failure, unspecified; N18.3 - Chronic kidney disease, stage 3 (moderate) (14) Bladder irritation Status: Acute (15) Transfusion of blood during current hospitalisation Status: Acute (16) Hypertension Status: Chronic (17) CAD (coronary artery disease) Status: Chronic Qualifiers: Coronary Disease-Associated Artery/Lesion type: [place] artery [place] vs. transplanted heart: [place] heart Associated angina: without angina Qualified Codes: I25.10 - Atherosclerotic heart disease of [place] coronary artery without angina pectoris (18) Atrial fibrillation Status: Chronic (19) Coagulopathy Status: Acute Clinical Quality Measures DVT/VTE Risk/Contraindication: Risk Factor Score Per Nursin RFS Level Per Nursing on Admit: 4+=Very High Contraindications-Pharm: Other *list below* Other: ACTIVE BLEEDING, CANNOT HAVE LOVENOX, WILL HOLD COUMADIN MARIO BLACK DO Mar 06, 2018 10:42
--- NOTE | 2018-03-06 11:21 | Diagnostic Imaging Report ---
EXAMINATION: Portable erect AP chest at 3:18 AM INDICATION: Dyspnea When compared to the prior exam of 03/05/2018, there has been no significant change. The heart is enlarged but stable. The sternotomy wires and surgical clips seen previously are again evident and no different. The irregular parenchymal density in the right midlung noted ib the prior exam is again visualized and no different in appearance. There are still a few patchy areas of increased density in both lung bases. The upper lungs remain generally clear. There is no significant pleural effusion identified. The mediastinum is not widened. The osseous structures are intact. The left-sided central venous catheter remains in good position. IMPRESSION: Stable chest. There has been no adverse change since the prior exam. Dictated by: Dictated on workstation # [id number]
[2018-03-06] MEDS ORDERED: CYCLOBENZAPRINE 10 MG (FLEXERIL) TAB PO PRN (18:00)
[2018-03-06] MEDS ORDERED: DILTIAZEM 125 MG/25 ML IV (CARDIZEM) IV ONE (18:20)
[2018-03-06] MEDS ORDERED: NS (IVPB) 100 ML ONE (18:22)
[2018-03-06] MEDS ORDERED: DILTIAZEM 25 MG/5 ML INJ (CARDIZEM) VIAL IVP ONE (18:30)
[2018-03-06] MEDS: DILTIAZEM IV FOR DRIP 125 MG in NS (IVPB) 100 ML IV SCH (18:35)
[2018-03-06 19:26] LABS: HEMOGLOBIN 6.6 G/DL (13.3-17.7)
[2018-03-06 19:34] LABS: INR 1.3 (0.8-1.4); PROTHROMBIN TIME PATIENT 15.9 SEC (12.2-14.7)
[2018-03-07] VITALS (28 sets, daily range): BP systolic 111–157; BP diastolic 31–82
[2018-03-07 03:51] LABS: BASOPHILS % (AUTO) 0 % (0-10); EOSINOPHILS % (AUTO) 0 % (0-10); LYMPHOCYTES # (AUTO) 0.7 X 10^3 (1.0-4.0); LYMPHOCYTES % (AUTO) 29 % (12-44); MEAN CORPUSCULAR HEMOGLOBIN 29 PG (25-34); MEAN CORPUSCULAR HGB CONC 34 G/DL (32-36); MEAN CORPUSCULAR VOLUME 84 FL (80-99); MEAN PLATELET VOLUME 10.6 FL (7.4-10.4); MONOCYTES # (AUTO) 0.4 X 10^3 (0.0-1.0); MONOCYTES % (AUTO) 16 % (0-12); NEUTROPHILS # (AUTO) 1.4 X 10^3 (1.8-7.8); NEUTROPHILS % (AUTO) 55 % (42-75); PLATELET COUNT 145 10^3/uL (130-400); RED BLOOD COUNT 2.21 10^6/uL (4.35-5.85); RED CELL DISTRIBUTION WIDTH 18.4 % (10.0-14.5); WHITE BLOOD COUNT 2.6 10^3/uL (4.3-11.0)
[2018-03-07 03:57] LABS: HEMATOCRIT 19 % (40-54); HEMOGLOBIN 6.4 G/DL (13.3-17.7)
[2018-03-07 04:00] LABS: INR 1.3 (0.8-1.4); PROTHROMBIN TIME PATIENT 15.9 SEC (12.2-14.7)
[2018-03-07 04:11] LABS: CALCIUM 7.9 MG/DL (8.5-10.1); CREATININE SERUM 1.19 MG/DL (0.60-1.30); MAGNESIUM 1.6 MG/DL (1.8-2.4); PHOSPHORUS 2.2 MG/DL (2.3-4.7); POTASSIUM 3.9 MMOL/L (3.6-5.0)
[2018-03-07] MEDS: MAGNESIUM 1 GM/100 ML IVPB 100 ML IV SCH ×3 (05:53→07:17)
[2018-03-07] MEDS ORDERED: DILTIAZEM 125 MG/25 ML IV (CARDIZEM) IV ONE (05:53)
[2018-03-07] MEDS: KCL 20 MEQ TAB (K-DUR) PO SCH (05:53)
[2018-03-07] MEDS ORDERED: NS (IVPB) 100 ML ONE (05:53)
[2018-03-07] MEDS: POTASSIUM CL 10MEQ/50ML IVPB 50 ML IV SCH (05:53)
[2018-03-07] MEDS: CATHETER FLUSH 10 ML SYR IV SCH ×3 (06:16→22:21)
[2018-03-07] MEDS: DILTIAZEM IV FOR DRIP 125 MG in NS (IVPB) 100 ML IV SCH (06:17)
[2018-03-07] MEDS ORDERED: NS IV 500 ML 500 ML ONE (07:28)
[2018-03-07] MEDS ORDERED: ETOMIDATE IV SOLN 20 MG/10 ML VIAL ONE (07:31)
[2018-03-07] MEDS ORDERED: fentaNYL INJECTION 100 MCG/2 ML AMP ONE (07:33)
[2018-03-07] MEDS ORDERED: FAMOTIDINE 20MG/2ML IV (PEPCID) ONE ×2 (07:42→08:04)
[2018-03-07] MEDS ORDERED: cefTRIAXone 1 GM/10 ML for IV (ROCEPHIN) ONE (07:44)
[2018-03-07] MEDS ORDERED: NS (IVPB) 50 ML ONE (07:45)
[2018-03-07] MEDS ORDERED: KETAMINE HCL 100 MG/ML 5 ML VIAL ONE (07:51)
--- NOTE | 2018-03-07 07:54 | Progress Note-Pre Operative ---
Pre-Operative Progress Note H&P Reviewed The H&P was reviewed, patient examined and no changes noted. Date Seen by Provider: Mar 07, 2018 Time Seen by Provider: 07:53 Date H&P Reviewed: Mar 07, 2018 Time H&P Reviewed: 07:53 Pre-Operative Diagnosis: GROSS HEMATURIA WITH ADVANCED METASTATIC CA BLADDER LANRE TALBERT MD Mar 07, 2018 07:54
--- NOTE | 2018-03-07 08:06 | Diagnostic Imaging Report ---
INDICATION: Dyspnea, bladder hemorrhage, followup. TECHNIQUE: Single frontal view of the chest COMPARISON: 03/06/2018 FINDINGS: Patchy airspace opacities are seen in the lungs bilaterally, most notable in the right midlung in the left lung base. No significant pleural effusion or pneumothorax is seen. Sternotomy wires and post CABG changes are noted. There is stable cardiomegaly with aortic atherosclerosis. The left-sided central line tip projects over the low SVC. IMPRESSION: Patchy bilateral airspace opacities with overall stable aeration. Dictated by: Dictated on workstation # [id number]
[2018-03-07] MEDS: FAMOTIDINE 20 MG (PEPCID) TABLET PO SCH (08:20)
--- NOTE | 2018-03-07 08:28 | Progress Note ---
Subjective Date Seen by a Provider: Mar 07, 2018 Time Seen by a Provider: 08:19 Subjective/Events-last exam PT BEING WHEELED OUT OF ROOM BY OPERATING ROOM STAFF I WENT TO SEE HIM THIS MORNING. HE STATES THAT "I DON'T FEEL BAD", HIS NOTES THAT HE HAD A ROUGH WEEKEND. PER DR. TALBERT'S NOTES, PT HAD PERSISTENT HEMATURIA AND WAS BEING TAKEN DOWN FOR CYSTOSCOPE THIS MORNING. Review of Systems General: Fatigue, Malaise Genitourinary: Hematuria Neurological: Weakness Objective Exam Last Set of Vital Signs Vital Signs Date Time Temp Pulse Resp B/P (MAP) Pulse Ox O2 Delivery O2 Flow Rate FiO2 03/07/18 07:58 93 18 120/50 Room Air 03/07/18 06:00 89 03/07/18 03:55 100.0 Capillary Refill : Less Than 3 Seconds I&O Intake and Output 03/07/18 00:00 Intake Total 450 ml Output Total 2750 ml Balance -2300 ml Intake Oral 200 ml IV Total 250 ml Output Urine Total 2750 ml General: Alert, Oriented X3, Cooperative, No Acute Distress HEENT: Atraumatic, PERRLA Neck: Supple Lungs: Clear to Auscultation Heart: Normal S1, Normal S2, No Murmurs, Other (irregular, sm at lsb) Abdomen: Normal Bowel Sounds, Soft, No Tenderness, No Hepatosplenomegaly, No Masses Extremities: No Clubbing, No Cyanosis, Normal Pulses, No Tenderness/Swelling, Other (mild edema) Skin: Other (PALLOR) Neuro: Normal Speech, Normal Tone, Sensation Intact Psych/Mental Status: Mental Status NL, Mood NL Results Lab Laboratory Tests 03/06/18 19:17: Hemoglobin 6.6*L, Hematocrit 19*L, Prothrombin Time 15.9H, INR Comment 1.3 03/07/18 03:44: Hemoglobin 6.4*L, Hematocrit 19*L, Prothrombin Time 15.9H, INR Comment 1.3, White Blood Count 2.6L, Red Blood Count 2.21L, Mean Corpuscular Volume 84, Mean Corpuscular Hemoglobin 29, Mean Corpuscular Hemoglobin Concent 34, Red Cell Distribution Width 18.4H, Platelet Count 145, Mean Platelet Volume 10.6H, Neutrophils (%) (Auto) 55, Lymphocytes (%) (Auto) 29, Monocytes (%) (Auto) 16H, Eosinophils (%) (Auto) 0, Basophils (%) (Auto) 0, Neutrophils # (Auto) 1.4L, Lymphocytes # (Auto) 0.7L, Monocytes # (Auto) 0.4, Eosinophils # (Auto) 0.0, Basophils # (Auto) 0.0, Sodium Level 140, Potassium Level 3.9, Chloride Level 107, Carbon Dioxide Level 24, Anion Gap 9, Blood Urea Nitrogen 29H, Creatinine 1.19, Estimat Glomerular Filtration Rate 59, BUN/Creatinine Ratio 24, Glucose Level 109H, Calcium Level 7.9L, Phosphorus Level 2.2L, Magnesium Level 1.6L Microbiology 03/04/18 MRSA Screen - Final, Complete MRSA not isolated Assessment/Plan Assessment/Plan Assess & Plan/Chief Complaint ACUTE HEMATURIA ACUTE BLOOD LOSS ANEMIA HYPOMAGNESEMIA 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 TALBERT CONSULTED - CONTINUE WITH TREATMENT PLAN PER DR. TALBERT'S RECOMMENDATIONS - PT TAKEN DOWN FOR CYSTOSCOPE THIS MORNING. - MONITOR H AND H CLOSELY, TRANSFUSE PRN. - HGB HAS NOT BEEN ABOVE 7 FOR OVER 24 HOURS. HYPOMAGNESEMIA - MAGNESIUM REPLACEMENT PROTOCOL HIGH GRADE INVASIVE PAPILLARY UROTHELIAL CARCINOMA - SUPPORTIVE CARE, WILL CONSULT ONCOLOGY TODAY. 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
[2018-03-07] MEDS ORDERED: LIDOCAINE UROJET 2% GEL 10 ML PKG ONE (08:41)
[2018-03-07] MEDS ORDERED: proPOfol 200 MG/20 ML (DIPRIVAN) VIAL IV ONE (09:12)
--- NOTE | 2018-03-07 09:37 | Progress Note-Post Operative ---
Post-Operative Progess Note Surgeon (s)/Roll Setter (s) Surgeon LANRE TALBERT MD Roll Setter: NONE Pre-Operative Diagnosis GROSS HEMATURIA WITH ADVANCED METASTATIC CA BLADDER Post-Operative Diagnosis SAME Procedure & Operative Findings Date of Procedure 03/07/18 Procedure Performed/Findings CYSTOSCOPY, EVACUATION OF CLOTS, AND CAUTERIZATION OF BLEEDERS Anesthesia Type GENERAL Estimated Blood Loss Estimated blood loss (mL): NEGLIGIBLE Specimens/Packing Specimens Removed NONE Packing: NONE LANRE ATLBERT MD Mar 07, 2018 9:37 am
[2018-03-07] MEDS ORDERED: PHENYLEPHRINE 100 MCG/ML 10 ML (ANESTHESIA) SYR ONE (09:41)
[2018-03-07] MEDS ORDERED: ONDANSETRON 4 MG/2 ML (SDV) Z0FRAN IVP PRN (09:45)
[2018-03-07] MEDS ORDERED: fentaNYL INJECTION 100 MCG/2 ML AMP IVP ONE (09:45)
--- NOTE | 2018-03-07 13:13 | Oncology Consultation ---
Visit Information Visit Information Date of Admission Mar 04, 2018 at 10:53 Attending Physician Verna Ferro MD Admitting Physician Verna Ferro MD Chief Complaint Bladder cancer and squamous cell of lung cancer, anemia, bladder bleeding Interval History Mr. Schmitt is a 77 year old white man who has two different types of cancer under the care of doctor Renny, who presented to ER with bladder bleeding and was found to have Hb 6.3. He also has chronic Afib and on coumadin. He was admitted to ICU and treated with RBC transfusion, FFP. Dr. Brooke did a cystoscope today and saw blood clot and active bleeding for which he did cauterization. 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 Poorly differentiated squamous cell carcinoma. PET CT showed hypermetabolic right upper lobe solitary pulmonary nodule with a right hilar lymphadenopathy. EBUS/FNA done on 12/01/2017 at [facility], 11 R lymph node and the right upper lobe lung biopsy showed fragments of very atypical cells. PDL 1 was 30%. [facility]'s recommendation after multidisciplinary tumor conference was to consider combined chemoradiation using weekly carboplatinum and paclitaxel regimen with radiation administered both for the lung as well as bladder cancers. Pt tolerated the treatment poorly that we have been hold the treatment after 3 weeks of treatment and then resumed last week. Pt now has bladder bleeding and anemia Hb 6.4 requires RBC transfusion and ICU monitoring. I consulted the patient on: 03/07/18 13:08 Time Seen by Provider: 16:10 Review of Systems Constitutional: weakness Respiratory: dyspnea on exertion Cardiovascular: palpitations Gastrointestinal: no symptoms reported Genitourinary: hematuria Musculoskeletal: muscle stiffness Skin: other (skin burn from radiation) Psychiatric/Neurological: No Symptoms Reported Health Status Allergies Coded Allergies: amoxicillin (Verified Allergy, Intermediate, HIVES, 03/04/18) nitroglycerin (Verified Allergy, Mild, DECREASED BP, 03/04/18) Home Medications Alprazolam (Alprazolam) 0.5 Mg Tablet, 0.5 MG PO TID PRN for ANXIETY, (Reported) Aspirin (Aspirin EC) 81 Mg Tablet.dr, 81 MG PO HS, (Reported) Atorvastatin Calcium (Atorvastatin Calcium) 80 Mg Tablet, 80 MG PO HS, (Reported ) Betamethasone/Propylene Glyc (Betamethasone Dp Aug 0.05% Crm) 15 Gm Cream..g., TP BID, (Reported) Bumetanide (Bumetanide) 2 Mg Tablet, 2 MG PO DAILY PRN for SWELLING, (Reported) Carvedilol (Carvedilol) 6.25 Mg Tablet, 6.25 MG PO BID, (Reported) Cholecalciferol (Vitamin D3) (Vitamin D3) 400 Unit Capsule, 400 UNIT PO DAILY, ( Reported) Fluticasone Furoate (Flonase Sensimist) 5.9 Ml [place].susp, 2 SPRAY NS DAILY PRN for CONGESTION, (Reported) Hydrocodone/Acetaminophen (Lorcet 5-325 mg Tablet) 1 Each Tablet, 1 TAB PO Q6H PRN for PAIN-MODERATE, (Reported) Lactobacillus Rhamnosus GG (Culturelle) 1 Each Capsule, 1 CAP PO DAILY, ( Reported) Melatonin (Melatonin) 10 Mg Tablet, 10 MG PO HS, (Reported) Pantoprazole Sodium (Protonix) 20 Mg Tablet.dr, 20 MG PO DAILY, (Reported) Valsartan (Valsartan) 80 Mg Tablet, 40 MG PO DAILY, (Reported) TAKES 1/2 (80MG) TABLET Warfarin Sodium (Warfarin Sodium) 5 Mg Tablet, 2.5 MG PO TuTh, (Reported) TAKES 1/2 (5MG) TABLET Warfarin Sodium (Warfarin Sodium) 5 Mg Tablet, 5 MG PO SuMoWeFrSa, (Reported) [facility] Hx Patient Social History Marrital Status: Living Status: LIVES WITH HIS IN [place] Employed/Student: retired Alcohol Use: Denies Use Recreational Drug Use: No Smoking Status: Former Smoker Type Used: Cigars 2nd Hand Smoke Exposure: No Recent Foreign Travel: No Contact w/other who traveled: No Recent Infectious Disease Expo: No Recent Hopitalizations: Yes Physical Abuse Screen: No Sexual Abuse: No Immunizations Up To Date Tetanus Booster (TDap): Unknown Date of Pneumonia Vaccine: Jan 19, 2012 Date of Influenza Vaccine: Feb 07, 2014 Family Medical History Significant Family History: Heart Disease, Cancer, Hypertension Family History: Ca 19 MOTHER G8 SISTER Cancer of mouth 19 MOTHER Cardiovascular disease 19 FATHER Physical Exam Vital Signs Vital Signs - First Documented 03/04/18 09:20 Temp 99.4 Pulse 112 Resp 18 B/P (MAP) 84/63 (70) Pulse Ox 99 Capillary Refill : Less Than 3 Seconds Height, Weight, BMI Height: 5'9.00" Weight: 163lbs. 2.0oz. [id number]; 25.3 BMI Method:Stated General Appearance: No Apparent Distress HEENT: PERRL/EOMI Neck: Non Tender, Supple Respiratory: Lungs Clear, No Accessory Muscle Use, No Respiratory Distress Cardiovascular: No Edema, No Gallop, Irregularly Irregular Gastrointestinal: Non Tender, Soft Extremity: Non Tender, No Calf Tenderness Neurologic/Psychiatric: Alert, Oriented x3 Data Review Labs Laboratory Tests 03/08/18 03:20 Laboratory Tests 03/06/18 03:24: White Blood Count 2.1L, Red Blood Count 2.45L, Hemoglobin 6.7*L, Hematocrit 20*L , Red Cell Distribution Width 20.6H, Mean Platelet Volume 10.6H, Neutrophils # ( Auto) 1.5L, Lymphocytes # (Auto) 0.3L, Prothrombin Time 26.0H, INR Comment 2.4H , Chloride Level 108H, Blood Urea Nitrogen 33H, Creatinine 1.34H, Glucose Level 106H, Calcium Level 7.9L 03/06/18 19:17: Hemoglobin 6.6*L, Hematocrit 19*L, Prothrombin Time 15.9H 03/07/18 03:44: White Blood Count 2.6L, Red Blood Count 2.21L, Hemoglobin 6.4*L, Hematocrit 19*L , Red Cell Distribution Width 18.4H, Mean Platelet Volume 10.6H, Neutrophils # ( Auto) 1.4L, Lymphocytes # (Auto) 0.7L, Prothrombin Time 15.9H, Blood Urea Nitrogen 29H, Glucose Level 109H, Calcium Level 7.9L, Monocytes (%) (Auto) 16H, Phosphorus Level 2.2L, Magnesium Level 1.6L 03/07/18 08:59: 03/07/18 08:59: 03/07/18 09:01: 03/07/18 12:52: 03/08/18 03:20: White Blood Count 3.0L, Red Blood Count 2.59L, Hemoglobin 7.7#L, Hematocrit 22L , Red Cell Distribution Width 18.1H, Mean Platelet Volume 10.5H, Monocytes (%) ( Auto) 17H, Lymphocytes # (Auto) 0.7L, Blood Urea Nitrogen 25H, Calcium Level 7.9L, Magnesium Level 1.5L, Total Bilirubin 1.6H, Total Protein 4.9L, Albumin 2.5L 03/08/18 11:06: Impression & Plan Impression & Plan IMP: 1. 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 On concurrent chemoradiation with weekly Carbo+Taxol and radiation to both lung and bladder. He is on Coumadin for chronic aFib and now active bleeding demonstrated by cystoscope by Dr Brooke 03-07-18. s/p cauterization. on bladder irrigation. 2. Poorly differentiated squamous cell carcinoma. PET CT showed hypermetabolic right upper lobe solitary pulmonary nodule with a right hilar lymphadenopathy. EBUS/FNA done on 12/01/2017 at [facility], 11 R lymph node and the right upper lobe lung biopsy showed fragments of very atypical cells. PDL 1 was 30%. 3. Recommendations after multidisciplinary tumor conference was to consider combined chemoradiation using weekly carboplatinum and paclitaxel regimen with radiation administered both for the lung as well as bladder cancers. Pt tolerated the treatment poorly that we have been hold the treatment after 3 weeks of treatment and then resumed last week. Pt now is have bladder bleeding and anemia Hb 6.4 requires RBC transfusion and ICU monitoring. 4. Recent neutropenic fever, UTI, dehydration and diarrhea from the chemoradiaiton. 5. History of coronary artery disease, s/p CABG, bilateral CEA, pulmonary hypertension and chronic atrial fibrillation. Patient is on chronic anticoagulation with Coumadin and NOW has obvious bleeding and anemia. s/p FFP and RBC transfusion. INR returned to normal 1.3 today. Plan: 1. Hold off chemoradiation 2. Transfuse RBC to keep Hb above 7. 3. Hold off any anticoagulation until bleeding completely stopped and Hb above 10, then re-evaluate if he will benefit from the anticoagulation and if so, what drugs. 4. Dr Lawson his primary oncologist will be back at end of this week. GLO JALLOH MD Mar 07, 2018 13:13
--- NOTE | 2018-03-07 16:03 | OPERATIVE REPORT ---
DATE OF SERVICE: 03/07/2018 PREOPERATIVE DIAGNOSIS: Gross hematuria with advanced metastatic carcinoma of the bladder. POSTOPERATIVE DIAGNOSIS: Gross hematuria with advanced metastatic carcinoma of the bladder. OPERATION PERFORMED: Cystoscopy with evacuation of blood clots and cauterization of bleeders. SURGEON: Lanre Talbert MD. ANESTHESIA: General. COMPLICATIONS: None. DESCRIPTION OF PROCEDURE: Under light general anesthesia, mostly IV, the patient in lithotomy position, genitalia were prepped and draped in the usual sterile fashion after removing the existing catheter. Urethra was dilated with Nic sound to #30 Panamanian to accommodate 27-Panamanian Mcgrath resectoscope. Large amount of clots were evacuated till no more were obtained. Performing cystoscopy, prostate was well resected. Bladder neck was opened. There was still a nodular appearance good size bladder tumor on the left side of the bladder. There was some oozing here and there. I went ahead and cauterized all oozing areas. There were no active bleeders and hemostasis was complete. I looked around the bladder. There was no other area of cancer or bleeding. The right ureteral orifice was visualized. The left was covered by the cancer. I removed the resectoscope, inserted a 3-way catheter, 22-Panamanian 10 mL balloon connected to continuous bladder irrigation with sterile water. The return of which was clear. Estimated blood loss negligible. The patient tolerated the procedure and anesthesia well and was sent to recovery room in stable condition. PLAN: If he bleeds again or continues to bleed, we will transfer him to . This was fully explained to the . Job ID: [id number] DocumentID: [id number] Dictated Date: 03/07/2018 09:42:02 Courtroom Clerk Date: 03/07/2018 16:03:32 Dictated By: LANRE TALBERT MD
--- NOTE | 2018-03-07 16:21 | Progress Note (SOAP) ---
Subjective Date Seen by a Provider: Mar 07, 2018 Time Seen by a Provider: 15:55 Subjective/Events-last exam doing better today. s/p cystoscopy, clot evacuation and cautery. CBI much more clear now. Objective Exam Vital Signs Date Time Temp Pulse Resp B/P (MAP) Pulse Ox O2 Delivery O2 Flow Rate FiO2 03/07/18 15:08 Room Air 03/07/18 13:00 98.8 82 18 143/61 97 Room Air 03/07/18 11:38 Room Air 03/07/18 11:00 82 19 128/57 (80) 94 Room Air 03/07/18 10:56 98.3 77 18 129/60 95 Room Air 03/07/18 10:40 98.0 85 16 134/61 95 Room Air 03/07/18 10:02 98.8 79 20 133/62 95 Room Air 03/07/18 10:00 79 18 138/56 (83) 94 Room Air 03/07/18 08:40 96 18 153/67 98 03/07/18 08:00 Room Air 03/07/18 08:00 90 23 120/50 (73) 93 Room Air 03/07/18 07:58 93 18 120/50 Room Air 03/07/18 07:00 84 17 114/53 (73) 95 Room Air 03/07/18 07:00 84 03/07/18 06:17 88 126/55 03/07/18 06:00 89 12 120/50 (73) 89 Room Air 03/07/18 05:00 90 19 130/82 (98) 93 Room Air 03/07/18 04:00 Room Air 03/07/18 04:00 93 17 124/54 (77) 95 Room Air 03/07/18 03:55 100.0 03/07/18 03:00 93 21 157/72 (100) 95 Room Air 03/07/18 02:00 92 19 116/60 (78) 94 Room Air 03/07/18 01:00 101 03/07/18 01:00 101 18 121/49 (73) 95 Room Air 03/07/18 00:19 90 16 111/58 (75) 94 Room Air 03/07/18 00:00 Room Air 03/07/18 00:00 99.5 03/06/18 23:45 89 15 117/59 (78) 94 Room Air 03/06/18 23:30 89 17 117/53 (74) 95 Room Air 03/06/18 23:15 105 12 129/53 (78) 95 Room Air 03/06/18 23:00 91 17 106/51 (69) 92 Room Air 03/06/18 22:45 93 15 106/54 (71) 92 Room Air 03/06/18 22:30 96 15 108/55 (72) 94 Room Air 03/06/18 22:15 99 110/72 (85) 92 Room Air 03/06/18 22:00 99 109/59 (76) 94 Room Air 03/06/18 21:45 101 34 112/54 (73) 94 Room Air 03/06/18 21:30 94 31 116/55 (75) 95 Room Air 03/06/18 21:15 95 18 93/60 (71) 94 Room Air 03/06/18 21:00 96 20 117/57 (77) 94 Room Air 03/06/18 20:00 99.7 111 22 154/81 (105) 98 Room Air 03/06/18 20:00 Room Air 03/06/18 19:15 100.1 105 22 133/68 98 Room Air 03/06/18 19:00 105 03/06/18 19:00 115 13 133/68 (89) 99 Room Air 03/06/18 18:35 142/78 03/06/18 18:05 100.5 124 22 142/78 98 Room Air 03/06/18 18:00 125 29 142/78 (99) 98 Room Air 03/06/18 17:37 100.1 116 27 141/78 97 03/06/18 17:00 107 20 141/78 (99) 98 Room Air 03/06/18 16:42 99.5 104 17 128/70 100 Room Air 03/06/18 16:27 Room Air I & O 03/07/18 07:00 Intake Total 575 ml Output Total 3875 ml Balance -3300 ml Capillary Refill : Less Than 3 Seconds General Appearance: No Apparent Distress HEENT: PERRL/EOMI Neck: Full Range of Motion Respiratory: Chest Non Tender, Normal Breath Sounds Cardiovascular: Regular Rate, Rhythm Gastrointestinal: normal bowel sounds, soft, tenderness Extremity: Normal Capillary Refill Neurologic/Psychiatric: Alert, Oriented x3 Skin: Normal Color Lymphatic: No Adenopathy Results Lab Laboratory Tests 03/06/18 19:17: Hemoglobin 6.6*L, Hematocrit 19*L, Prothrombin Time 15.9H, INR Comment 1.3 03/07/18 03:44: Hemoglobin 6.4*L, Hematocrit 19*L, Prothrombin Time 15.9H, INR Comment 1.3, White Blood Count 2.6L, Red Blood Count 2.21L, Mean Corpuscular Volume 84, Mean Corpuscular Hemoglobin 29, Mean Corpuscular Hemoglobin Concent 34, Red Cell Distribution Width 18.4H, Platelet Count 145, Mean Platelet Volume 10.6H, Neutrophils (%) (Auto) 55, Lymphocytes (%) (Auto) 29, Monocytes (%) (Auto) 16H, Eosinophils (%) (Auto) 0, Basophils (%) (Auto) 0, Neutrophils # (Auto) 1.4L, Lymphocytes # (Auto) 0.7L, Monocytes # (Auto) 0.4, Eosinophils # (Auto) 0.0, Basophils # (Auto) 0.0, Sodium Level 140, Potassium Level 3.9, Chloride Level 107, Carbon Dioxide Level 24, Anion Gap 9, Blood Urea Nitrogen 29H, Creatinine 1.19, Estimat Glomerular Filtration Rate 59, BUN/Creatinine Ratio 24, Glucose Level 109H, Calcium Level 7.9L, Phosphorus Level 2.2L, Magnesium Level 1.6L 03/07/18 08:59: Lab Scanned Report Transfusion Reaction Form 03/07/18 08:59: Lab Scanned Report Transfusion Reaction Form 03/07/18 09:01: Lab Scanned Report Transfusion Reaction Form 03/07/18 12:52: Lab Scanned Report Transfusion Reaction Form Microbiology 03/04/18 MRSA Screen - Final, Complete MRSA not isolated Assessment/Plan Assessment/Plan Assess & Plan/Chief Complaint metastatic bladder ca with hematuria and rectal bleed s/p cystoscopy, clot evacuation, bladder cautery. continue blood resuscitation. ambulate. increase diet as tolerated. Clinical Quality Measures DVT/VTE Risk/Contraindication: Risk Factor Score Per Nursin RFS Level Per Nursing on Admit: 4+=Very High Contraindications-Pharm: Other *list below* Other: ACTIVE BLEEDING, CANNOT HAVE LOVENOX, WILL HOLD COUMADIN NEHEMIAH DILLON MD Mar 07, 2018 16:21
[2018-03-07] MEDS ORDERED: DILTIAZEM 120 MG (CARDIZEM CD) CAP PO NR (16:30)
--- NOTE | 2018-03-07 16:41 | Cardiology Progress Note ---
Cardiology SOAP Progress Note Subjective: Post cystoscopy. No cardiac complaints. Objective: I&O/Vital Signs 03/07/18 03/07/18 03/07/18 03/07/18 10:40 10:56 11:00 11:38 Temp 98.0 98.3 Pulse 85 77 82 Resp 16 18 19 B/P (MAP) 134/61 129/60 128/57 (80) Pulse Ox 95 95 94 O2 Delivery Room Air Room Air Room Air Room Air 03/07/18 03/07/18 03/07/18 03/07/18 12:00 13:00 13:00 13:00 Temp 98.8 Pulse 82 82 86 86 Resp 15 18 19 B/P (MAP) 133/66 (88) 143/61 143/31 (68) Pulse Ox 94 97 93 O2 Delivery Room Air Room Air Room Air 03/07/18 03/07/18 03/07/18 03/07/18 14:00 15:00 15:08 16:00 Pulse 87 99 96 Resp 20 21 26 B/P (MAP) 147/72 (97) 157/71 (99) 151/71 (97) Pulse Ox 96 98 95 O2 Delivery Room Air Room Air Room Air Room Air 03/07/18 03/07/18 03/07/18 03/07/18 17:00 18:00 19:00 20:15 Temp 99.9 Pulse 95 95 108 93 Resp 18 20 20 B/P (MAP) 147/76 (99) 131/63 (85) 134/55 (81) Pulse Ox 95 93 97 O2 Delivery Room Air Room Air Room Air 03/07/18 00:00 Intake Total 200 ml Output Total 2350 ml Balance -2150 ml Weight (Pounds): 163 Weight (Ounces): 2.0 Weight (Calculated Kilograms): 73.003479 Constitutional: appears stated age, AAO x 3; No apparent distress; well- developed, well-nourished Respiratory: No accessory muscle use, No respiratory distress, No chest tender , No chest expansion is symmetric; chest is bilaterally symmetric; No lungs clear to percussion; lungs clear to auscultation; No crackles, No rhonchi, No rales, No stridor, No wheezing, No pleural rub, No other Cardiovascular: No regular rate-rhythm; irregularly irregular; No extra beats, No parasternal heave is noted, No JVD, No edema, No bradycardia, No tachycardia , No point of maximal impulse, No cardiac thrills are palpable; S1 and S2; No gallop/S3, No gallop/S4, No diastolic murmur, No systolic murmur, No friction rub, No click, No other Gastrointestional: No tender, No soft, No round, No distended, No pulsatile mass, No organomegaly, No guarding, No rebound, No tenderness, No hernia, No mass, No audible bowel sounds, No abnormal bowel sounds, No abdominal bruits, No spleenomegaly, No other Extremities: No normal range of motion, No non-tender, No normal inspection, No pedal edema, No calf tenderness, No normal capillary refill, No pelvis stable , No calf tenderness, No inflammation, No pedal edema, No slow capillary refill , No swelling, No other, No abrasion, No clubbing, No cyanosis, No ecchymosis, No laceration, No no lower extremity edema bilateral, No significant edema, No tenderness, No wound Neurologic/Psychiatric: no motor/sensory deficits, alert, normal mood/affect, oriented x 3, power is 5/5 both on sides Skin: No rash, No ulcerations Results/Procedures: Labs Laboratory Tests 03/07/18 03:44: White Blood Count 2.6L, Red Blood Count 2.21L, Hemoglobin 6.4*L, Hematocrit 19*L , Mean Corpuscular Volume 84, Mean Corpuscular Hemoglobin 29, Mean Corpuscular Hemoglobin Concent 34, Red Cell Distribution Width 18.4H, Platelet Count 145, Mean Platelet Volume 10.6H, Neutrophils (%) (Auto) 55, Lymphocytes (%) (Auto) 29 , Monocytes (%) (Auto) 16H, Eosinophils (%) (Auto) 0, Basophils (%) (Auto) 0, Neutrophils # (Auto) 1.4L, Lymphocytes # (Auto) 0.7L, Monocytes # (Auto) 0.4, Eosinophils # (Auto) 0.0, Basophils # (Auto) 0.0, Prothrombin Time 15.9H, INR Comment 1.3, Sodium Level 140, Potassium Level 3.9, Chloride Level 107, Carbon Dioxide Level 24, Anion Gap 9, Blood Urea Nitrogen 29H, Creatinine 1.19, Estimat Glomerular Filtration Rate 59, BUN/Creatinine Ratio 24, Glucose Level 109H, Calcium Level 7.9L, Phosphorus Level 2.2L, Magnesium Level 1.6L 03/07/18 08:59: Lab Scanned Report Transfusion Reaction Form 03/07/18 08:59: Lab Scanned Report Transfusion Reaction Form 03/07/18 09:01: Lab Scanned Report Transfusion Reaction Form 03/07/18 12:52: Lab Scanned Report Transfusion Reaction Form [facility] 03/04/18 MRSA Screen - Final, Complete MRSA not isolated A/P: Assessment/Dx: Small cell lung cancer, bladder cancer, Hypovolemic shock, Supratherapeutic INR, Chronic atrial fibrillation Plan: Small cell lung cancer, bladder cancer, deferred to the cancer Center. Hypovolemic shock, aggressive fluid resuscitation. Resolved. Supratherapeutic INR, DC warfarin. resolved. Chronic atrial fibrillation, DC warfarin. Cystoscopy revealed significant blood clots in the bladder. I spoke at length to the patient and recommended that we no longer continue him on warfarin unless he is cleared by Dr. Ferro and Dr. Brooke. There is a small risk of stroke but his risk of bleeding is much higher, therefore I do not recommend subsequent warfarin therapy. Thank you for your consultation. Please call me if you have any questions. Liban Brandon MD, FACP, FACC, FSCAI, FHRS, CCDS Interventional Cardiology Cardiac Electrophysiology Vascular Medicine and Endovascular Interventions Charles BRANDON MD Mar 07, 2018 4:41 pm
[2018-03-08] VITALS (12 sets, daily range): BP systolic 107–145; BP diastolic 54–78
[2018-03-08 03:29] LABS: BASOPHILS % (AUTO) 0 % (0-10); EOSINOPHILS % (AUTO) 0 % (0-10); HEMATOCRIT 22 % (40-54); HEMOGLOBIN 7.7 G/DL (13.3-17.7); LYMPHOCYTES # (AUTO) 0.7 X 10^3 (1.0-4.0); LYMPHOCYTES % (AUTO) 22 % (12-44); MEAN CORPUSCULAR HEMOGLOBIN 30 PG (25-34); MEAN CORPUSCULAR HGB CONC 35 G/DL (32-36); MEAN CORPUSCULAR VOLUME 86 FL (80-99); MEAN PLATELET VOLUME 10.5 FL (7.4-10.4); MONOCYTES # (AUTO) 0.5 X 10^3 (0.0-1.0); MONOCYTES % (AUTO) 17 % (0-12); NEUTROPHILS # (AUTO) 1.8 X 10^3 (1.8-7.8); NEUTROPHILS % (AUTO) 61 % (42-75); PLATELET COUNT 152 10^3/uL (130-400); RED BLOOD COUNT 2.59 10^6/uL (4.35-5.85); RED CELL DISTRIBUTION WIDTH 18.1 % (10.0-14.5)
[2018-03-08 04:13] LABS: ALBUMIN 2.5 GM/DL (3.2-4.5); BILIRUBIN,TOTAL 1.6 MG/DL (0.1-1.0); CALCIUM 7.9 MG/DL (8.5-10.1); CREATININE SERUM 1.29 MG/DL (0.60-1.30); MAGNESIUM 1.5 MG/DL (1.8-2.4); PHOSPHORUS 2.4 MG/DL (2.3-4.7); POTASSIUM 3.9 MMOL/L (3.6-5.0); TOTAL PROTEIN 4.9 GM/DL (6.4-8.2)
[2018-03-08] MEDS: POTASSIUM CL 10MEQ/50ML IVPB 50 ML IV SCH (06:12)
[2018-03-08] MEDS: KCL 20 MEQ TAB (K-DUR) PO SCH (06:13)
[2018-03-08] MEDS: MAGNESIUM 1 GM/100 ML IVPB 100 ML IV SCH ×3 (06:15→07:38)
--- NOTE | 2018-03-08 07:08 | Anesthesia-General Post-Op ---
MAC Patient Condition Mental Status/LOC: Same as Preop Cardiovascular: Satisfactory Nausea/Vomiting: Absent Respiratory: Satisfactory Pain: Controlled Complications: Absent Post Op Complications Complications None Follow Up Care/Instructions Patient Instructions None needed. Anesthesiology Discharge Order Discharge Order Patient is doing well, no complaints, stable vital signs, no apparent adverse anesthesia problems. No complications reported per nursing. LISET QUAN CRNA Mar 08, 2018 07:08
[2018-03-08] MEDS: cefTRIAXone FOR IV USE 1,000 MG in NS (IVPB) 50 ML IV SCH (07:30)
[2018-03-08] MEDS: FAMOTIDINE 20 MG (PEPCID) TABLET PO SCH (07:30)
[2018-03-08] MEDS: DILTIAZEM 120 MG (CARDIZEM CD) CAP PO SCH (07:30)
[2018-03-08] MEDS: CATHETER FLUSH 10 ML SYR IV SCH ×3 (07:31→21:28)
--- NOTE | 2018-03-08 07:35 | Diagnostic Imaging Report ---
INDICATION: Dyspnea. COMPARISON: 03/07/2018. FINDINGS: Stable left subclavian Port-A-Cath. Bibasilar reticular pulmonary opacities are unchanged. No pleural effusion or pneumothorax. Stable cardiomegaly. IMPRESSION: Unchanged bibasilar heterogeneous pulmonary opacities, greater on the left. No adverse development. Dictated by: Dictated on workstation # [id number]
--- NOTE | 2018-03-08 08:32 | Progress Note ---
Subjective Date Seen by a Provider: Mar 08, 2018 Time Seen by a Provider: 08:30 Subjective/Events-last exam PT REPORTS THAT HE IS FEELING A LITTLE BETTER TODAY - HE HAD SOME SHORTNESS OF BREATH THIS MORNING, HE REPORTS THAT HE IS STILL HAVING A LITTLE BLOOD FROM THE BLACKBURN. HE DENIES ANY CHEST PAIN, NAUSEA, ABDOMINAL PAIN. Review of Systems General: Fatigue HEENT: No Head Aches Pulmonary: No Dyspnea, No Cough Cardiovascular: No: Chest Pain Gastrointestinal: No: Nausea, Abdominal Pain Genitourinary: Hematuria, Other (BLACKBURN IN PLACE) Neurological: Weakness Objective Exam Last Set of Vital Signs Vital Signs Date Time Temp Pulse Resp B/P (MAP) Pulse Ox O2 Delivery O2 Flow Rate FiO2 03/08/18 06:00 92 18 136/78 (97) Room Air 03/08/18 05:00 89 03/08/18 04:15 99.5 Capillary Refill : Less Than 3 Seconds I&O Intake and Output 03/08/18 00:00 Intake Total 825 ml Output Total 5325 ml Balance -4500 ml Intake Oral 600 ml IV Total 225 ml Output Urine Total 5325 ml # Bowel Movements 1 General: Alert, Oriented X3, Cooperative, No Acute Distress HEENT: Atraumatic, PERRLA Neck: Supple Lungs: Clear to Auscultation Heart: Normal S1, Normal S2, No Murmurs, Other (irregular, sm at lsb) Abdomen: Normal Bowel Sounds, Soft, No Tenderness, No Hepatosplenomegaly, No Masses Extremities: No Clubbing, No Cyanosis, Normal Pulses, No Tenderness/Swelling, Other (mild edema) Skin: Other (PALLOR) Neuro: Normal Speech, Normal Tone, Sensation Intact Psych/Mental Status: Mental Status NL, Mood NL Results Lab Laboratory Tests 03/07/18 08:59: Lab Scanned Report Transfusion Reaction Form 03/07/18 08:59: Lab Scanned Report Transfusion Reaction Form 03/07/18 09:01: Lab Scanned Report Transfusion Reaction Form 03/07/18 12:52: Lab Scanned Report Transfusion Reaction Form 03/08/18 03:20: White Blood Count 3.0L, Red Blood Count 2.59L, Hemoglobin 7.7#L, Hematocrit 22L , Mean Corpuscular Volume 86, Mean Corpuscular Hemoglobin 30, Mean Corpuscular Hemoglobin Concent 35, Red Cell Distribution Width 18.1H, Platelet Count 152, Mean Platelet Volume 10.5H, Neutrophils (%) (Auto) 61, Lymphocytes (%) (Auto) 22 , Monocytes (%) (Auto) 17H, Eosinophils (%) (Auto) 0, Basophils (%) (Auto) 0, Neutrophils # (Auto) 1.8, Lymphocytes # (Auto) 0.7L, Monocytes # (Auto) 0.5, Eosinophils # (Auto) 0.0, Basophils # (Auto) 0.0, Sodium Level 137, Potassium Level 3.9, Chloride Level 105, Carbon Dioxide Level 22, Anion Gap 10, Blood Urea Nitrogen 25H, Creatinine 1.29, Estimat Glomerular Filtration Rate 54, BUN/ Creatinine Ratio 19, Glucose Level 100, Calcium Level 7.9L, Corrected Calcium 9.1, Phosphorus Level 2.4, Magnesium Level 1.5L, Total Bilirubin 1.6H, Aspartate Amino Transf (AST/SGOT) 23, Alanine Aminotransferase (ALT/SGPT) 18, Alkaline Phosphatase 64, Total Protein 4.9L, Albumin 2.5L Microbiology 03/04/18 MRSA Screen - Final, Complete MRSA not isolated Assessment/Plan Assessment/Plan Assess & Plan/Chief Complaint ACUTE HEMATURIA ACUTE BLOOD LOSS ANEMIA HYPOMAGNESEMIA 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 TALBERT CONSULTED - CONTINUE WITH TREATMENT PLAN PER DR. TALBERT'S RECOMMENDATIONS - PT TAKEN DOWN FOR CYSTOSCOPE THIS MORNING. - MONITOR H AND H CLOSELY, TRANSFUSE PRN. - HGB HAS NOT BEEN ABOVE 7 FOR OVER 24 HOURS. HYPOMAGNESEMIA - MAGNESIUM REPLACEMENT PROTOCOL HIGH GRADE INVASIVE PAPILLARY UROTHELIAL CARCINOMA - SUPPORTIVE CARE, WILL CONSULT ONCOLOGY TODAY. 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
--- NOTE | 2018-03-08 09:11 | Cardiology Progress Note ---
Cardiology SOAP Progress Note Subjective: No cardiac symptoms. Objective: I&O/Vital Signs 03/07/18 03/08/18 03/08/18 03/08/18 23:00 00:00 00:00 00:00 Temp 99.8 Pulse 91 94 Resp 26 20 B/P (MAP) 137/65 (89) 124/66 (85) Pulse Ox 91 92 O2 Delivery Room Air Room Air Room Air 03/08/18 03/08/18 03/08/18 03/08/18 01:00 01:01 02:00 03:00 Pulse 93 96 102 100 Resp 24 17 26 B/P (MAP) 134/63 (86) 126/54 (78) Pulse Ox 92 93 93 O2 Delivery Room Air Room Air Room Air 03/08/18 03/08/18 03/08/18 03/08/18 04:00 04:00 04:15 05:00 Temp 99.5 Pulse 101 86 Resp 23 28 B/P (MAP) 130/61 (84) 145/72 (96) Pulse Ox 91 89 O2 Delivery Room Air Room Air Room Air 03/08/18 03/08/18 03/08/18 03/08/18 06:00 07:00 07:00 08:00 Pulse 92 83 83 Resp 18 19 B/P (MAP) 136/78 (97) O2 Delivery Room Air Room Air Room Air 03/08/18 03/08/18 08:00 09:00 Pulse 79 91 Resp 21 23 B/P (MAP) 114/59 (77) 123/59 (80) Pulse Ox 92 95 O2 Delivery Room Air Room Air 03/08/18 00:00 Intake Total 600 ml Output Total 2400 ml Balance -1800 ml Weight (Pounds): 162 Weight (Ounces): 3.0 Weight (Calculated Kilograms): 73.898266 Constitutional: appears stated age, AAO x 3; No apparent distress; well- developed, well-nourished Respiratory: No accessory muscle use, No respiratory distress, No chest tender , No chest expansion is symmetric; chest is bilaterally symmetric; No lungs clear to percussion; lungs clear to auscultation; No crackles, No rhonchi, No rales, No stridor, No wheezing, No pleural rub, No other Cardiovascular: No regular rate-rhythm; irregularly irregular; No extra beats, No parasternal heave is noted, No JVD, No edema, No bradycardia, No tachycardia , No point of maximal impulse, No cardiac thrills are palpable; S1 and S2; No gallop/S3, No gallop/S4, No diastolic murmur, No systolic murmur, No friction rub, No click, No other Gastrointestional: No tender, No soft, No round, No distended, No pulsatile mass, No organomegaly, No guarding, No rebound, No tenderness, No hernia, No mass, No audible bowel sounds, No abnormal bowel sounds, No abdominal bruits, No spleenomegaly, No other Extremities: No normal range of motion, No non-tender, No normal inspection, No pedal edema, No calf tenderness, No normal capillary refill, No pelvis stable , No calf tenderness, No inflammation, No pedal edema, No slow capillary refill , No swelling, No other, No abrasion, No clubbing, No cyanosis, No ecchymosis, No laceration, No no lower extremity edema bilateral, No significant edema, No tenderness, No wound Neurologic/Psychiatric: no motor/sensory deficits, alert, normal mood/affect, oriented x 3, power is 5/5 both on sides Skin: No rash, No ulcerations Results/Procedures: Labs Laboratory Tests 03/07/18 12:52: Lab Scanned Report Transfusion Reaction Form 03/08/18 03:20: White Blood Count 3.0L, Red Blood Count 2.59L, Hemoglobin 7.7#L, Hematocrit 22L , Mean Corpuscular Volume 86, Mean Corpuscular Hemoglobin 30, Mean Corpuscular Hemoglobin Concent 35, Red Cell Distribution Width 18.1H, Platelet Count 152, Mean Platelet Volume 10.5H, Neutrophils (%) (Auto) 61, Lymphocytes (%) (Auto) 22 , Monocytes (%) (Auto) 17H, Eosinophils (%) (Auto) 0, Basophils (%) (Auto) 0, Neutrophils # (Auto) 1.8, Lymphocytes # (Auto) 0.7L, Monocytes # (Auto) 0.5, Eosinophils # (Auto) 0.0, Basophils # (Auto) 0.0, Sodium Level 137, Potassium Level 3.9, Chloride Level 105, Carbon Dioxide Level 22, Anion Gap 10, Blood Urea Nitrogen 25H, Creatinine 1.29, Estimat Glomerular Filtration Rate 54, BUN/ Creatinine Ratio 19, Glucose Level 100, Calcium Level 7.9L, Corrected Calcium 9.1, Phosphorus Level 2.4, Magnesium Level 1.5L, Total Bilirubin 1.6H, Aspartate Amino Transf (AST/SGOT) 23, Alanine Aminotransferase (ALT/SGPT) 18, Alkaline Phosphatase 64, Total Protein 4.9L, Albumin 2.5L Microbiology 03/04/18 MRSA Screen - Final, Complete MRSA not isolated A/P: Assessment/Dx: Small cell lung cancer, bladder cancer, Hypovolemic shock, Supratherapeutic INR, Chronic atrial fibrillation Plan: Small cell lung cancer, bladder cancer, deferred to the cancer Center. Hypovolemic shock, aggressive fluid resuscitation. Resolved. Supratherapeutic INR, DC warfarin. resolved. Chronic atrial fibrillation, DC warfarin. Cystoscopy revealed significant blood clots in the bladder. Continuous bladder irrigation started yesterday. No significant blood in the urine today. I spoke at length to the patient and recommended that we no longer continue him on warfarin unless he is cleared by Dr. Ferro and Dr. Brooke. There is a small risk of stroke but his risk of bleeding is much higher, therefore I do not recommend subsequent warfarin therapy. Thank you for your consultation. Please call me if you have any questions. Liban Brandon MD, FACP, FACC, FSCAI, FHRS, CCDS Interventional Cardiology Cardiac Electrophysiology Vascular Medicine and Endovascular Interventions Charles BRANDON MD Mar 08, 2018 9:11 am
--- NOTE | 2018-03-08 09:21 | Progress Note-Urology ---
Progress Note-Urology Progress Notes/Assess & Plan Progress/Assessment & Plan DOING, LOOKING AND FEELING BETTER. URINE CLEAR. LABS STABLE Final Diagnosis GROSS HEMATURIA LANRE TALBERT MD Mar 08, 2018 9:21 am
[2018-03-08] MEDS: LACTOBACILLUS ACIDOPHILUS (PROBIOTIC) CAPSULE PO SCH (09:23)
[2018-03-08] MEDS: PANTOPRAZOLE 20 MG TABLET (PROTONIX) PO SCH (09:24)
--- NOTE | 2018-03-08 14:45 | Progress Note (SOAP) ---
Subjective Date Seen by a Provider: Mar 08, 2018 Time Seen by a Provider: 14:00 Subjective/Events-last exam doing well. no bleeding. tolerating diet. pain controlled. Objective Exam Vital Signs Date Time Temp Pulse Resp B/P (MAP) Pulse Ox O2 Delivery O2 Flow Rate FiO2 03/08/18 12:00 99.2 96 18 124/58 (80) 96 Room Air 03/08/18 10:00 96 16 131/70 (90) Room Air 03/08/18 09:00 91 23 123/59 (80) 95 Room Air 03/08/18 08:00 79 21 114/59 (77) 92 Room Air 03/08/18 08:00 Room Air 03/08/18 07:00 83 19 Room Air 03/08/18 07:00 83 03/08/18 06:00 92 18 136/78 (97) Room Air 03/08/18 05:00 86 28 145/72 (96) 89 Room Air 03/08/18 04:15 99.5 03/08/18 04:00 Room Air 03/08/18 04:00 101 23 130/61 (84) 91 Room Air 03/08/18 03:00 100 26 93 Room Air 03/08/18 02:00 102 17 126/54 (78) 93 Room Air 03/08/18 01:01 96 03/08/18 01:00 93 24 134/63 (86) 92 Room Air 03/08/18 00:00 94 20 124/66 (85) 92 Room Air 03/08/18 00:00 99.8 03/08/18 00:00 Room Air 03/07/18 23:00 91 26 137/65 (89) 91 Room Air 03/07/18 22:00 94 25 140/78 (98) 93 Room Air 03/07/18 21:00 89 26 129/57 (81) 93 Room Air 03/07/18 20:15 99.9 93 20 134/55 (81) 97 Room Air 03/07/18 20:00 Room Air 03/07/18 19:00 112 28 134/69 (90) 96 Room Air 03/07/18 19:00 108 03/07/18 18:00 95 20 131/63 (85) 93 Room Air 03/07/18 17:00 95 18 147/76 (99) 95 Room Air 03/07/18 16:00 96 26 151/71 (97) 95 Room Air 03/07/18 15:08 Room Air 03/07/18 15:00 99 21 157/71 (99) 98 Room Air I & O 03/08/18 07:00 Intake Total 800 ml Output Total 5475 ml Balance -4675 ml Capillary Refill : Less Than 3 Seconds General Appearance: No Apparent Distress HEENT: PERRL/EOMI Neck: Full Range of Motion Respiratory: Chest Non Tender, Lungs Clear, Normal Breath Sounds Cardiovascular: Regular Rate, Rhythm Gastrointestinal: normal bowel sounds, non tender, soft Extremity: Normal Capillary Refill Neurologic/Psychiatric: Alert, Oriented x3 Skin: Normal Color Lymphatic: No Adenopathy Results Lab Laboratory Tests 03/08/18 03:20: White Blood Count 3.0L, Red Blood Count 2.59L, Hemoglobin 7.7#L, Hematocrit 22L , Mean Corpuscular Volume 86, Mean Corpuscular Hemoglobin 30, Mean Corpuscular Hemoglobin Concent 35, Red Cell Distribution Width 18.1H, Platelet Count 152, Mean Platelet Volume 10.5H, Neutrophils (%) (Auto) 61, Lymphocytes (%) (Auto) 22 , Monocytes (%) (Auto) 17H, Eosinophils (%) (Auto) 0, Basophils (%) (Auto) 0, Neutrophils # (Auto) 1.8, Lymphocytes # (Auto) 0.7L, Monocytes # (Auto) 0.5, Eosinophils # (Auto) 0.0, Basophils # (Auto) 0.0, Sodium Level 137, Potassium Level 3.9, Chloride Level 105, Carbon Dioxide Level 22, Anion Gap 10, Blood Urea Nitrogen 25H, Creatinine 1.29, Estimat Glomerular Filtration Rate 54, BUN/ Creatinine Ratio 19, Glucose Level 100, Calcium Level 7.9L, Corrected Calcium 9.1, Phosphorus Level 2.4, Magnesium Level 1.5L, Total Bilirubin 1.6H, Aspartate Amino Transf (AST/SGOT) 23, Alanine Aminotransferase (ALT/SGPT) 18, Alkaline Phosphatase 64, Total Protein 4.9L, Albumin 2.5L 03/08/18 11:06: Lab Scanned Report Transfusion Reaction Form Microbiology 03/04/18 MRSA Screen - Final, Complete MRSA not isolated Assessment/Plan Assessment/Plan Assess & Plan/Chief Complaint metastatic bladder ca with hematuria and rectal bleed s/p cystoscopy, clot evacuation, bladder cautery. continue blood resuscitation. ambulate. increase diet as tolerated. Clinical Quality Measures DVT/VTE Risk/Contraindication: Risk Factor Score Per Nursin RFS Level Per Nursing on Admit: 4+=Very High Contraindications-Pharm: Other *list below* Other: ACTIVE BLEEDING, CANNOT HAVE LOVENOX, WILL HOLD COUMADIN NEHEMIAH DILLON MD Mar 08, 2018 2:45 pm
--- NOTE | 2018-03-08 15:41 | Oncology Progress Note ---
Subjective Date Seen by a Provider: Mar 08, 2018 Time Seen by a Provider: 15:35 Subjective/Events-last exam Pt is feeling better and doing better today. Moved out from ICU to acute care today Blood clots in the bladder irrigation bag and tube. Blood counts improved Eating some regular food today. Data Review Labs Laboratory Tests 03/08/18 03:20 Laboratory Tests 03/06/18 03:24: White Blood Count 2.1L, Red Blood Count 2.45L, Hemoglobin 6.7*L, Hematocrit 20*L , Red Cell Distribution Width 20.6H, Mean Platelet Volume 10.6H, Neutrophils # ( Auto) 1.5L, Lymphocytes # (Auto) 0.3L, Prothrombin Time 26.0H, INR Comment 2.4H , Chloride Level 108H, Blood Urea Nitrogen 33H, Creatinine 1.34H, Glucose Level 106H, Calcium Level 7.9L 03/06/18 19:17: Hemoglobin 6.6*L, Hematocrit 19*L, Prothrombin Time 15.9H 03/07/18 03:44: White Blood Count 2.6L, Red Blood Count 2.21L, Hemoglobin 6.4*L, Hematocrit 19*L , Red Cell Distribution Width 18.4H, Mean Platelet Volume 10.6H, Neutrophils # ( Auto) 1.4L, Lymphocytes # (Auto) 0.7L, Prothrombin Time 15.9H, Blood Urea Nitrogen 29H, Glucose Level 109H, Calcium Level 7.9L, Monocytes (%) (Auto) 16H, Phosphorus Level 2.2L, Magnesium Level 1.6L 03/07/18 08:59: 03/07/18 08:59: 03/07/18 09:01: 03/07/18 12:52: 03/08/18 03:20: White Blood Count 3.0L, Red Blood Count 2.59L, Hemoglobin 7.7#L, Hematocrit 22L , Red Cell Distribution Width 18.1H, Mean Platelet Volume 10.5H, Monocytes (%) ( Auto) 17H, Lymphocytes # (Auto) 0.7L, Blood Urea Nitrogen 25H, Calcium Level 7.9L, Magnesium Level 1.5L, Total Bilirubin 1.6H, Total Protein 4.9L, Albumin 2.5L 03/08/18 11:06: Laboratory Tests 03/08/18 03:20 Physical Exam Vital Signs Vital Signs - First Documented 03/04/18 09:20 Temp 99.4 Pulse 112 Resp 18 B/P (MAP) 84/63 (70) Pulse Ox 99 Capillary Refill : Less Than 3 Seconds Height, Weight, BMI Height: 5'9.00" Weight: 162lbs. 3.0oz. 73.494035nf; 25.3 BMI Method:Stated General Appearance: No Apparent Distress HEENT: PERRL/EOMI Neck: Non Tender, Supple Respiratory: Lungs Clear, No Accessory Muscle Use, No Respiratory Distress Cardiovascular: Irregularly Irregular Gastrointestinal: Non Tender, Soft Genital/Rectal: Other (bladder irrigation) Extremity: Non Tender, No Calf Tenderness, No Pedal Edema Neurologic/Psychiatric: Alert, Oriented x3 Impression & Plan Impression & Plan IMP: 1. 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 On concurrent chemoradiation with weekly Carbo+Taxol and radiation to both lung and bladder. He is on Coumadin for chronic aFib and now active bleeding demonstrated by cystoscope by Dr Brooke 03-07-18. s/p cauterization. on bladder irrigation. 2. Poorly differentiated squamous cell carcinoma. PET CT showed hypermetabolic right upper lobe solitary pulmonary nodule with a right hilar lymphadenopathy. EBUS/FNA done on 12/01/2017 at [facility], 11 R lymph node and the right upper lobe lung biopsy showed fragments of very atypical cells. PDL 1 was 30%. 3. Recommendations after multidisciplinary tumor conference was to consider combined chemoradiation using weekly carboplatinum and paclitaxel regimen with radiation administered both for the lung as well as bladder cancers. Pt tolerated the treatment poorly that we have been hold the treatment after 3 weeks of treatment and then resumed last week. Pt now is have bladder bleeding and anemia Hb 6.4 requires RBC transfusion and ICU monitoring. 4. Recent neutropenic fever, UTI, dehydration and diarrhea from the chemoradiaiton. 5. History of coronary artery disease, s/p CABG, bilateral CEA, pulmonary hypertension and chronic atrial fibrillation. Patient is on chronic anticoagulation with Coumadin and NOW has obvious bleeding and anemia. s/p FFP and RBC transfusion. INR returned to normal 1.3 today. 6. Anemia and leukopenia from bleeding and chemoradiation, Hb is better. WBC better. Plan: 1. Hold off chemoradiation at least to next Tu. 2. Hb 7.7 today. No transfusion needed today. WBC better, normal plt. I anticipate his counts will continue improving. He can be discharged in 1-[address] Ferro to make the final call of discharge. 3. Hold off any anticoagulation until bleeding completely stopped and Hb above 10, then re-evaluate if he will benefit from the anticoagulation and if so, what drugs. 4. If discharge, Pt will see ELISEO Mitchell of Dr Lawson his primary oncologist next Wed. I gave pt the appointment card today. Clinical Quality Measures DVT/VTE Risk/Contraindication: Risk Factor Score Per Nursin RFS Level Per Nursing on Admit: 4+=Very High Contraindications-Pharm: Other *list below* Other: ACTIVE BLEEDING, CANNOT HAVE LOVENOX, WILL HOLD COUMADIN GLO JALLOH MD Mar 08, 2018 15:41
[2018-03-08] MEDS: MELATONIN 3 MG TABLET PO SCH (21:28)
[2018-03-08] MEDS: BETAMETHASONE DIPRO (AUGMENTED) 0.05% CREAM 15 GM TP SCH (21:29)
[2018-03-09] MEDS: HYDROcodone/APAP 5 MG/325 MG (LORTAB) TAB PO PRN (00:27)
[2018-03-09 00:56] VITALS: BP 134/61
[2018-03-09] MEDS: BELLADONNA ALK/OPIUM (B & O) 30 MG SUPP PR PRN (02:12)
[2018-03-09 04:05] VITALS: BP 138/66
[2018-03-09 05:25] LABS: BASOPHILS % (AUTO) 0 % (0-10); EOSINOPHILS % (AUTO) 1 % (0-10); HEMATOCRIT 23 % (40-54); HEMOGLOBIN 7.5 G/DL (13.3-17.7); LYMPHOCYTES # (AUTO) 0.4 X 10^3 (1.0-4.0); LYMPHOCYTES % (AUTO) 14 % (12-44); MEAN CORPUSCULAR HEMOGLOBIN 29 PG (25-34); MEAN CORPUSCULAR HGB CONC 33 G/DL (32-36); MEAN CORPUSCULAR VOLUME 87 FL (80-99); MEAN PLATELET VOLUME 10.5 FL (7.4-10.4); MONOCYTES # (AUTO) 0.3 X 10^3 (0.0-1.0); MONOCYTES % (AUTO) 12 % (0-12); NEUTROPHILS # (AUTO) 1.9 X 10^3 (1.8-7.8); NEUTROPHILS % (AUTO) 73 % (42-75); PLATELET COUNT 152 10^3/uL (130-400); WHITE BLOOD COUNT 2.7 10^3/uL (4.3-11.0)
[2018-03-09 05:43] LABS: CALCIUM 8.2 MG/DL (8.5-10.1); CREATININE SERUM 1.18 MG/DL (0.60-1.30); MAGNESIUM 1.4 MG/DL (1.8-2.4); POTASSIUM 3.7 MMOL/L (3.6-5.0)
[2018-03-09 06:18] LABS: EOSINOPHILS % (MANUAL) 1 %; LYMPHOCYTES % (MANUAL) 14 %; MONOCYTES % (MANUAL) 8 %; NEUTROPHILS % (MANUAL) 77 %; POLYCHROMASIA MODERATE
[2018-03-09] MEDS: CATHETER FLUSH 10 ML SYR IV SCH ×3 (06:20→21:47)
[2018-03-09] MEDS: PANTOPRAZOLE 20 MG TABLET (PROTONIX) PO SCH (06:20)
[2018-03-09 08:00] VITALS: BP 108/67
--- NOTE | 2018-03-09 08:27 | Diagnostic Imaging Report ---
INDICATION: Dyspnea. TIME OF EXAM: 3:42 AM Correlation is made with prior chest from 03/08/2018. FINDINGS: The heart is enlarged and stable. There are changes of median sternotomy and CABG. There is minimal residual infiltrate right upper lobe. Left lung is clear. No effusion or pneumothorax is seen. Left subclavian line has tip overlying the SVC. IMPRESSION: Stable mild right upper lobe patchy infiltrate when compared with exam from one day earlier. Dictated by: Dictated on workstation # [id number]
[2018-03-09] MEDS: cefTRIAXone FOR IV USE 1,000 MG in NS (IVPB) 50 ML IV SCH (08:33)
[2018-03-09] MEDS: LACTOBACILLUS ACIDOPHILUS (PROBIOTIC) CAPSULE PO SCH (08:34)
[2018-03-09] MEDS: FAMOTIDINE 20 MG (PEPCID) TABLET PO SCH (08:34)
[2018-03-09] MEDS: DILTIAZEM 120 MG (CARDIZEM CD) CAP PO SCH (08:34)
[2018-03-09] MEDS: BETAMETHASONE DIPRO (AUGMENTED) 0.05% CREAM 15 GM TP SCH ×2 (09:01→21:46)
--- NOTE | 2018-03-09 09:11 | Cardiology Progress Note ---
Cardiology SOAP Progress Note Subjective: No cardiac symptoms. Objective: I&O/Vital Signs 03/09/18 03/09/18 00:56 04:05 Temp 98.9 98.2 Pulse 97 88 Resp 17 17 B/P (MAP) 134/61 (85) 138/66 (90) Pulse Ox 94 94 O2 Delivery Room Air Room Air 03/09/18 00:00 Intake Total 240 ml Output Total 350 ml Balance -110 ml Weight (Pounds): 170 Weight (Ounces): 3.0 Weight (Calculated Kilograms): 77.515075 Constitutional: appears stated age, AAO x 3; No apparent distress; well- developed, well-nourished Respiratory: No accessory muscle use, No respiratory distress, No chest tender , No chest expansion is symmetric; chest is bilaterally symmetric; No lungs clear to percussion; lungs clear to auscultation; No crackles, No rhonchi, No rales, No stridor, No wheezing, No pleural rub, No other Cardiovascular: No regular rate-rhythm; irregularly irregular; No extra beats, No parasternal heave is noted, No JVD, No edema, No bradycardia, No tachycardia , No point of maximal impulse, No cardiac thrills are palpable; S1 and S2; No gallop/S3, No gallop/S4, No diastolic murmur; systolic murmur; No friction rub, No click, No other Gastrointestional: No tender, No soft, No round, No distended, No pulsatile mass, No organomegaly, No guarding, No rebound, No tenderness, No hernia, No mass, No audible bowel sounds, No abnormal bowel sounds, No abdominal bruits, No spleenomegaly, No other Extremities: No normal range of motion, No non-tender, No normal inspection, No pedal edema, No calf tenderness, No normal capillary refill, No pelvis stable , No calf tenderness, No inflammation, No pedal edema, No slow capillary refill , No swelling, No other, No abrasion, No clubbing, No cyanosis, No ecchymosis, No laceration, No no lower extremity edema bilateral, No significant edema, No tenderness, No wound Neurologic/Psychiatric: no motor/sensory deficits, alert, normal mood/affect, oriented x 3, power is 5/5 both on sides Skin: No rash, No ulcerations Results/Procedures: Labs Laboratory Tests 03/08/18 11:06: Lab Scanned Report Transfusion Reaction Form 03/09/18 05:20: White Blood Count 2.7L, Red Blood Count 2.60L, Hemoglobin 7.5L, Hematocrit 23L, Mean Corpuscular Volume 87, Mean Corpuscular Hemoglobin 29, Mean Corpuscular Hemoglobin Concent 33, Red Cell Distribution Width 18.0H, Platelet Count 152, Mean Platelet Volume 10.5H, Neutrophils (%) (Auto) 73, Lymphocytes (%) (Auto) 14 , Monocytes (%) (Auto) 12, Eosinophils (%) (Auto) 1, Basophils (%) (Auto) 0, Neutrophils # (Auto) 1.9, Lymphocytes # (Auto) 0.4L, Monocytes # (Auto) 0.3, Eosinophils # (Auto) 0.0, Basophils # (Auto) 0.0, Neutrophils % (Manual) 77, Lymphocytes % (Manual) 14, Monocytes % (Manual) 8, Eosinophils % (Manual) 1, Polychromasia MODERATE, Sodium Level 138, Potassium Level 3.7, Chloride Level 107, Carbon Dioxide Level 22, Anion Gap 9, Blood Urea Nitrogen 23H, Creatinine 1.18, Estimat Glomerular Filtration Rate 60, BUN/Creatinine Ratio 19, Glucose Level 90, Calcium Level 8.2L, Phosphorus Level 3.0, Magnesium Level 1.4L Microbiology 03/04/18 MRSA Screen - Final, Complete MRSA not isolated A/P: Assessment/Dx: Small cell lung cancer, bladder cancer, Hypovolemic shock, Supratherapeutic INR, Chronic atrial fibrillation Plan: Small cell lung cancer, bladder cancer, deferred to the cancer Center. Hypovolemic shock, aggressive fluid resuscitation. Resolved. Supratherapeutic INR, DC warfarin. resolved. Chronic atrial fibrillation, DC warfarin. Cystoscopy revealed significant blood clots in the bladder. Still small amount of blood in the urine. I spoke at length to the patient and recommended that we no longer continue him on warfarin unless he is cleared by Dr. Ferro and Dr. Brooke. There is a small risk of stroke but his risk of bleeding is much higher, therefore I do not recommend subsequent warfarin therapy. Systolic murmur: We'll request an echocardiogram. Thank you for your consultation. Please call me if you have any questions. Liban Brandon MD, FACP, FACC, FSCAI, FHRS, CCDS Interventional Cardiology Cardiac Electrophysiology Vascular Medicine and Endovascular Interventions Charles BRANDON MD Mar 09, 2018 9:11 am
--- NOTE | 2018-03-09 09:33 | Progress Note-Urology ---
Progress Note-Urology Progress Notes/Assess & Plan Progress/Assessment & Plan CONTINUES WELL. CBC STABLE. URINE CLEAR. PLAN DC BLACKBURN Final Diagnosis GROSS HEMATURIA LANRE TALBERT MD Mar 09, 2018 9:33 am
[2018-03-09 12:59] VITALS: BP_SYST 136; BP_SYST 143; BP_DIAS 70
--- NOTE | 2018-03-09 13:04 | Progress Note ---
Subjective Date Seen by a Provider: Mar 09, 2018 Time Seen by a Provider: 13:00 Subjective/Events-last exam PT REPORTS THAT HE IS FEELING A LITTLE BIT BETTER TODAY - HE IS FATIGUED, BUT NOT BAD ON ADMISSION. HE DENIES CHEST PAIN HE DENIES DIZZINESS Review of Systems General: No Fatigue, No Malaise HEENT: No Head Aches, No Visual Changes Pulmonary: No Dyspnea, No Cough Cardiovascular: No: Chest Pain Gastrointestinal: No: Nausea, Abdominal Pain Genitourinary: No Dysuria Neurological: Weakness Objective Exam Last Set of Vital Signs Vital Signs Date Time Temp Pulse Resp B/P (MAP) Pulse Ox O2 Delivery O2 Flow Rate FiO2 03/09/18 08:00 97.8 102 18 108/67 (81) 99 Room Air Capillary Refill : Less Than 3 Seconds I&O Intake and Output 03/09/18 00:00 Intake Total 540 ml Output Total 2425 ml Balance -1885 ml Intake Oral 540 ml Output Urine Total 2425 ml General: Alert, Oriented X3, Cooperative, No Acute Distress HEENT: Atraumatic, PERRLA Neck: Supple Lungs: Clear to Auscultation Heart: Normal S1, Normal S2, No Murmurs, Other (irregular, sm at lsb) Abdomen: Normal Bowel Sounds, Soft, No Tenderness, No Hepatosplenomegaly, No Masses Extremities: No Clubbing, No Cyanosis, Normal Pulses, No Tenderness/Swelling, Other (mild edema) Skin: Other (PALLOR) Neuro: Normal Speech, Normal Tone, Sensation Intact Psych/Mental Status: Mental Status NL, Mood NL Results Lab Laboratory Tests 03/09/18 05:20: White Blood Count 2.7L, Red Blood Count 2.60L, Hemoglobin 7.5L, Hematocrit 23L, Mean Corpuscular Volume 87, Mean Corpuscular Hemoglobin 29, Mean Corpuscular Hemoglobin Concent 33, Red Cell Distribution Width 18.0H, Platelet Count 152, Mean Platelet Volume 10.5H, Neutrophils (%) (Auto) 73, Lymphocytes (%) (Auto) 14 , Monocytes (%) (Auto) 12, Eosinophils (%) (Auto) 1, Basophils (%) (Auto) 0, Neutrophils # (Auto) 1.9, Lymphocytes # (Auto) 0.4L, Monocytes # (Auto) 0.3, Eosinophils # (Auto) 0.0, Basophils # (Auto) 0.0, Neutrophils % (Manual) 77, Lymphocytes % (Manual) 14, Monocytes % (Manual) 8, Eosinophils % (Manual) 1, Polychromasia MODERATE, Sodium Level 138, Potassium Level 3.7, Chloride Level 107, Carbon Dioxide Level 22, Anion Gap 9, Blood Urea Nitrogen 23H, Creatinine 1.18, Estimat Glomerular Filtration Rate 60, BUN/Creatinine Ratio 19, Glucose Level 90, Calcium Level 8.2L, Phosphorus Level 3.0, Magnesium Level 1.4L Microbiology 03/04/18 MRSA Screen - Final, Complete MRSA not isolated Assessment/Plan Assessment/Plan Assess & Plan/Chief Complaint ACUTE HEMATURIA ACUTE BLOOD LOSS ANEMIA HYPOMAGNESEMIA 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 TALBERT CONSULTED - CONTINUE WITH TREATMENT PLAN PER DR. TALBERT'S RECOMMENDATIONS - PT TAKEN DOWN FOR CYSTOSCOPE THIS MORNING. - MONITOR H AND H CLOSELY, TRANSFUSE PRN. - HGB HAS NOT BEEN ABOVE 7 FOR OVER 24 HOURS. HYPOMAGNESEMIA - MAGNESIUM REPLACEMENT PROTOCOL HIGH GRADE INVASIVE PAPILLARY UROTHELIAL CARCINOMA - SUPPORTIVE CARE, WILL CONSULT ONCOLOGY TODAY. 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
[2018-03-09 15:40] VITALS: BP 136/67
[2018-03-09 20:10] VITALS: BP 149/75
[2018-03-09] MEDS: MELATONIN 3 MG TABLET PO SCH (21:46)
[2018-03-10] VITALS (12 sets, daily range): BP systolic 128–155; BP diastolic 58–76
[2018-03-10] MEDS: PANTOPRAZOLE 20 MG TABLET (PROTONIX) PO SCH (06:21)
[2018-03-10] MEDS: CATHETER FLUSH 10 ML SYR IV SCH ×3 (06:21→20:19)
--- NOTE | 2018-03-10 06:56 | Diagnostic Imaging Report ---
INDICATION: Dyspnea. COMPARISON: 03/09/2018 FINDINGS: Single frontal radiographic view of the chest was obtained and demonstrates stable mild cardiomegaly. Pulmonary vasculature is within normal limits. Lungs show diffuse coarse interstitial opacities bilaterally. No large focal consolidation, effusion, or pneumothorax is seen. Sternotomy wires, left subclavian Port-A-Cath, and calcified aortic atherosclerosis are noted. Bony structures show no acute adverse interval change. IMPRESSION: 1. Probable senescent course interstitial opacities bilaterally. 2. No focal alveolar consolidation. 3. Mild cardiomegaly. Dictated by: Dictated on workstation # [id number]
[2018-03-10] MEDS: BETAMETHASONE DIPRO (AUGMENTED) 0.05% CREAM 15 GM TP SCH ×2 (08:00→20:19)
[2018-03-10] MEDS: LACTOBACILLUS ACIDOPHILUS (PROBIOTIC) CAPSULE PO SCH (08:00)
[2018-03-10] MEDS: FAMOTIDINE 20 MG (PEPCID) TABLET PO SCH (08:00)
[2018-03-10] MEDS: DILTIAZEM 120 MG (CARDIZEM CD) CAP PO SCH (08:00)
[2018-03-10] MEDS: cefTRIAXone FOR IV USE 1,000 MG in NS (IVPB) 50 ML IV SCH (08:09)
[2018-03-10 08:57] LABS: BASOPHILS % (AUTO) 0 % (0-10); EOSINOPHILS % (AUTO) 0 % (0-10); HEMATOCRIT 24 % (40-54); HEMOGLOBIN 7.9 G/DL (13.3-17.7); LYMPHOCYTES # (AUTO) 0.5 X 10^3 (1.0-4.0); LYMPHOCYTES % (AUTO) 14 % (12-44); MEAN CORPUSCULAR HEMOGLOBIN 29 PG (25-34); MEAN CORPUSCULAR HGB CONC 33 G/DL (32-36); MEAN CORPUSCULAR VOLUME 88 FL (80-99); MEAN PLATELET VOLUME 10.2 FL (7.4-10.4); MONOCYTES # (AUTO) 0.3 X 10^3 (0.0-1.0); MONOCYTES % (AUTO) 9 % (0-12); NEUTROPHILS # (AUTO) 2.7 X 10^3 (1.8-7.8); NEUTROPHILS % (AUTO) 76 % (42-75); PLATELET COUNT 199 10^3/uL (130-400); RED BLOOD COUNT 2.72 10^6/uL (4.35-5.85); RED CELL DISTRIBUTION WIDTH 18.5 % (10.0-14.5); WHITE BLOOD COUNT 3.5 10^3/uL (4.3-11.0)
[2018-03-10 09:18] LABS: CALCIUM 8.1 MG/DL (8.5-10.1); CREATININE SERUM 1.26 MG/DL (0.60-1.30); MAGNESIUM 1.1 MG/DL (1.8-2.4); POTASSIUM 3.5 MMOL/L (3.6-5.0)
--- NOTE | 2018-03-10 09:27 | Progress Note ---
Subjective Date Seen by a Provider: Mar 10, 2018 Time Seen by a Provider: 08:50 Subjective/Events-last exam PT REPORTS THAT HE FEELS READY TO GO HOME. PT WOULD LIKE TO CONSIDER HOSPICE AFTER HE HAS CONVERSATION ABOUT THIS WITH SHANIKA AND DR. SUNSHINE NEXT WEEK - IF HE CHOOSES HOSPICE, HE IS THINKING [facility]. AFTER I WAS IN THE ROOM WITH THE PATIENT, NURSING STAFF REPORTED TO ME THAT THE NIGHT NURSE FROM 03/08/18PM - 03/09/18AM TOLD THE MORNING NURSE THAT HE HAD DRAINAGE FROM A SITE ABOVE THE PORT. THE NIGHT NURSE DID NOT CALL ME WITH THIS INFORMATION AND I DID NOT FIND OUT UNTIL THIS MORNING THAT HE HAD A HOLE ABOVE HIS PORT. Review of Systems General: No Chills; Fatigue HEENT: No Head Aches Pulmonary: No Dyspnea, No Cough Cardiovascular: No: Chest Pain, Palpitations Gastrointestinal: No: Nausea, Abdominal Pain Genitourinary: No Dysuria; Other (BLOODY URINE HAS RESOLVED) Neurological: Weakness Objective Exam Last Set of Vital Signs Vital Signs Date Time Temp Pulse Resp B/P (MAP) Pulse Ox O2 Delivery O2 Flow Rate FiO2 03/10/18 04:05 98.5 89 17 132/62 (85) 94 Room Air Capillary Refill : Less Than 3 Seconds I&O Intake and Output 03/10/18 00:00 Intake Total 1200 ml Output Total 2120 ml Balance -920 ml Intake Oral 1200 ml Output Urine Total 2120 ml # Bowel Movements 1 General: Alert, Oriented X3, Cooperative, No Acute Distress HEENT: Atraumatic, PERRLA Neck: Supple Lungs: Clear to Auscultation Heart: Normal S1, Normal S2, No Murmurs, Other (irregular, sm at lsb) Abdomen: Normal Bowel Sounds, Soft, No Tenderness, No Hepatosplenomegaly, No Masses Extremities: No Clubbing, No Cyanosis, Normal Pulses Skin: Other (RADIATION BURN ON BACK - SKIN PEELING AND APPEARS TO BE HEALING, NEW OPEN ULCERATION ABOVE PORT ON UPPER LEFT CHEST.) Neuro: Normal Speech, Normal Tone, Sensation Intact Psych/Mental Status: Mental Status NL, Mood NL Results Lab Laboratory Tests 03/10/18 08:50: White Blood Count 3.5L, Red Blood Count 2.72L, Hemoglobin 7.9L, Hematocrit 24L, Mean Corpuscular Volume 88, Mean Corpuscular Hemoglobin 29, Mean Corpuscular Hemoglobin Concent 33, Red Cell Distribution Width 18.5H, Platelet Count 199, Mean Platelet Volume 10.2, Neutrophils (%) (Auto) 76H, Lymphocytes (%) (Auto) 14 , Monocytes (%) (Auto) 9, Eosinophils (%) (Auto) 0, Basophils (%) (Auto) 0, Neutrophils # (Auto) 2.7, Lymphocytes # (Auto) 0.5L, Monocytes # (Auto) 0.3, Eosinophils # (Auto) 0.0, Basophils # (Auto) 0.0, Sodium Level 139, Potassium Level 3.5L, Chloride Level 106, Carbon Dioxide Level 23, Anion Gap 10, Blood Urea Nitrogen 22H, Creatinine 1.26, Estimat Glomerular Filtration Rate 55, BUN/ Creatinine Ratio 17, Glucose Level 95, Calcium Level 8.1L, Phosphorus Level 3.0 , Magnesium Level 1.1L Microbiology 03/04/18 MRSA Screen - Final, Complete MRSA not isolated Assessment/Plan Assessment/Plan Assess & Plan/Chief Complaint ACUTE HEMATURIA ACUTE BLOOD LOSS ANEMIA HYPOMAGNESEMIA 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 TALBERT CONSULTED - CONTINUE WITH TREATMENT PLAN PER DR. TALBERT'S RECOMMENDATIONS - PT TAKEN DOWN FOR CYSTOSCOPE THIS MORNING. - MONITOR H AND H CLOSELY, DISCUSSED WITH DR. SUNSHINE - HE WANTS PT TO HAVE ANOTHER UNIT OF BLOOD TODAY. INFECTION WITH ULCERATION ABOVE PORT SITE - DISCUSSED WITH DR. DILLON - CULTURES OBTAINED, HE WILL REMOVE PORT TODAY - PICC LINE TO BE PLACED HYPOMAGNESEMIA - MAGNESIUM REPLACEMENT PROTOCOL HIGH GRADE INVASIVE PAPILLARY UROTHELIAL CARCINOMA - SUPPORTIVE CARE, DISCUSSED WITH DR. 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
[2018-03-10] MEDS ORDERED: NS IV 500 ML 500 ML IV SCH (09:35)
[2018-03-10] MEDS ORDERED: LIDOCAINE 1% INJ 20 ML 20 ML VIAL ONE (09:55)
[2018-03-10] MEDS ORDERED: LORazepam INJ 2 MG/ML (ATIVAN) VIAL IVP PRN (10:15)
[2018-03-10] MEDS: ALPRAZolam 0.5 MG (XANAX) TAB PO PRN ×2 (10:49→18:29)
--- NOTE | 2018-03-10 11:39 | Progress Note-Post Operative ---
Post-Operative Progess Note Surgeon (s)/Offshore Diver (s) Surgeon NEHEMIAH DILLON MD Offshore Diver: NONE Pre-Operative Diagnosis skin necrosis adjacent groshong port Post-Operative Diagnosis same Procedure & Operative Findings Date of Procedure 03/10/18 Procedure Performed/Findings removal left sc groshong catheter Anesthesia Type local Estimated Blood Loss Estimated blood loss (mL): none Specimens/Packing Specimens Removed cath tip Packing: NONE NEHEMIAH DILLON MD Mar 10, 2018 11:39 am
--- NOTE | 2018-03-10 12:56 | Progress Note-Urology ---
Progress Note-Urology Progress Notes/Assess & Plan Progress/Assessment & Plan CONTINUES WELL. VOIDING WELL. URINE CLEARING. LABS STABLE. OK TO DISMISS SORIA Final Diagnosis GROSS HEMATURIA LNARE TALBERT MD Mar 10, 2018 12:56
--- NOTE | 2018-03-10 14:01 | Diagnostic Imaging Report ---
Indication: PICC line placement. Time of exam: 1:39 PM Correlation is made with prior study earlier the same day. Changes of median sternotomy and CABG are noted. The heart is enlarged but stable. A right upper extremity PICC line has been placed and has its tip in good position overlying the SVC. No pneumothorax is seen. Coarse interstitial changes in both lungs appear similar to prior study. No parenchymal consolidation is seen. No effusion or pneumothorax is seen. Impression: Satisfactory PICC line placement. Dictated by: Dictated on workstation # [id number]
--- NOTE | 2018-03-10 14:34 | Physical Therapy Evaluation ---
PT Evaluation-General Medical Diagnosis Admission Date Mar 04, 2018 at 10:53 Medical Diagnosis: Bladder hemorrage Onset Date: Mar 04, 2018 Therapy Diagnosis Therapy Diagnosis: General Weakness/ Debility Height/Weight Height (Feet): 5 Height (Inches): 9.00 Weight (Pounds): 161 Weight (Ounces): 4.0 Precautions Precautions/Isolations: Fall Prevention, Standard Precautions Weight Bear Status Right Lower Extremity: Right Weight Bearing/Tolerated Left Lower Extremity: Left Weight Bearing/Tolerated Referral Physician: Kasie Reason for Referral: Evaluation/Treatment Medical History Pertinent Medical History: Atrial Fib, CAD, HTN, Renal Insufficiency Additional Medical History Bladder and Lung Cancer, A- Fib, CAD, HTN, Valvular Heart Disease Current History bladder hemorrhage after radiation Reviewed History: Yes Social History Home: Single Level Current Living Status: Spouse Entry Into Home: Stairs With Railing PT Steps Into Home: 2 PT Steps Inside Home: 0 Prior/Core FIM Prior Level of Function Functional [place] Measure 0=Not Assessed/NA 4=Minimal Assistance 1=Total Assistance 5=Supervision or Setup 2=Maximal Assistance 6=Modified [place] 3=Moderate Assistance 7=Complete IndependenceIRFPAI Quality Coding Scale 6 Independent with activity with or without an assistive device 5 Patient requires set up or clean up by helper. Patient completes activity by themselves 4 Supervision or touching assist (CGA). [place] provide cues , steadying assist 3 The helper provides less than half the effort to complete the activity 2 The helper provides more than half the effort to complete the activity 1 Dependent. The helper does all the effort to complete an activity 7 Patient refused to complete or attempt activity 9 The patient did not perform the activity before the current illness or injury 88 Not attempted due to Medical conditions or safety concerns Bed Mobility: 6 Transfers (B,C,W/C) (FIM): 6 Gait: 6 Stairs: 6 PT Evaluation-Current Subjective Patient awake in bed and agrees to PT evaluation. Pain Numeric Pain Scale: 0-No Pain Location: No Pain Reported Objective Patient Orientation: Normal For Age Problem Solving: Fair Attachments: Central Line ROM/Strength ROM Upper Extremities WNL ROM Lower Extremities WNL Strength Upper Extremities WNL Strength Lower Extremities 4/5 bilateral LEs Integumentary/Posture Bowel Incontinence: No Bladder Incontinence: No Sensory Vision: Functional Hearing: Functional Sensation Right Upper Extremit: Intact Sensation Left Upper Extremity: Intact Sensation Right Lower Extremit: Intact Sensation Left Lower Extremity: Intact Transfers Functional [place] Measure 0=Not Assessed/NA 4=Minimal Assistance 1=Total Assistance 5=Supervision or Setup 2=Maximal Assistance 6=Modified [place] 3=Moderate Assistance 7=Complete [place] Transfers (B, C, W/C) (FIM): 5 Scootin Rollin Supine to/from Sit: 5 Sit to/from Stand: 5 Balance Sitting Static: Normal Sitting Dynamic: Normal Standing Static: Good Assessment/Needs Patient has 4/5 bilateral LE strength. Patient requires SBA for bed mobility and is able to get out bed on his own. Pt will benefit from skilled exercises to maintain patient strength and endurance for overall daily function. Patient plans to dismiss soon. Rehab Potential: Guarded PT Short Term Goals Short Term Goals Distance (FIM): 3=150 ft PT Custodial Goals Custodial Goals PT Custodial Goals Time Frame: Mar 16, 2018 Transfers (B,C,W/C) (FIM): 6 Gait (FIM): 1 Gait distance (FIM): 1=up to 49 ft Distance: 10' Gait Level of Assist: 5 Gait Assistive Device: FWW PT Plan Problem List Problem List: Activity Tolerance, Functional Strength, Safety, Balance, Gait, Transfer, Bed Mobility Treatment/Plan Treatment Plan: Continue Plan of Care Treatment Plan: Bed Mobility, Education, Functional Strength, Gait, Safety, Therapeutic Exercise, Transfers Treatment Duration: Mar 16, 2018 Frequency: 5 times per week Estimated Hrs Per Day: .25 hour per day Patient and/or Family Agrees t: Yes Time/GCodes Time In: 154 Time Out: 204 Total Billed Treatment Time: 10 Total Billed Treatment 1 visit [facility] 10' JAYA GUERRERO PT Mar 10, 2018 14:34
[2018-03-10] MEDS: fentaNYL INJECTION 100 MCG/2 ML AMP IVP PRN (15:05)
[2018-03-10] MEDS: MELATONIN 3 MG TABLET PO SCH (20:19)
[2018-03-10] MEDS: HYDROcodone/APAP 5 MG/325 MG (LORTAB) TAB PO PRN (22:47)
[2018-03-11] VITALS: BP 148/72
--- NOTE | 2018-03-11 03:02 | OPERATIVE REPORT ---
DATE OF SERVICE: 03/10/2018 ATTENDING PRIMARY CARE PHYSICIAN: Dr. Ferro. PREOPERATIVE DIAGNOSIS: Open necrotic skin adjacent to the port to an Groshong implantable catheter. POSTOPERATIVE DIAGNOSIS: Open necrotic skin adjacent to the port to an Gro[place]ong implantable catheter. PROCEDURE: Removal of Groshong implantable catheter. SURGEON: Nehemiah Dillon MD ANESTHESIA: Local. ESTIMATED BLOOD LOSS: Minimal. FINDINGS: No abscess or active infection identified. DISPOSITION: The patient tolerated the procedure well. 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 He was also found to have adenocarcinoma of the lungs. He underwent placement of a Groshong implantable catheter for chemotherapy as well as radiation which was placed approximately 1 month ago. During the process, he did develop hemorrhagic cystitis requiring multiple units of blood transfusion as well as blood clotting factors for he was supratherapeutic with his Coumadin and INR level. Over time and resuscitation as well as status post cystoscopy, blood clot removal and cauterization as well as hemostasis he did, the port was accessed and used multiple times and he did receive approximately 8 units of blood. Throughout this process, he has responded well; however, on opening was identified near the Groshong catheter with small amount of necrotic tissue; however, no signs of abscess, redness, erythema or infection at this time. Due to his immunocompromised state status post chemotherapy radiation as well as blood transfusions, the port would more than likely need to be removed due to the skin necrosis around the port and we will proceed with removal of the Groshong port and catheter. The left chest was prepped and draped in standard surgical fashion. 1% lidocaine was used to anesthetize the overlying skin to the port. A skin incision was made, it was along the previous skin incision. The capsule was not fully mature yet and just opened using a 15 blade. The port was then removed out of the subcutaneous reservoir and the entire catheter removal of holding direct pressure with the port and catheter completely intact. Good hemostasis was observed and a few sutures were placed to reapproximate the subcutaneous tissue and skin using 4-0 silk sutures. Wound was then cleaned and covered with gauze. The patient tolerated procedure well. We will instruct staff to keep the area clean and dry and to close mostly by secondary intention. Job ID: [id number] DocumentID: [id number] Dictated Date: 03/10/2018 16:30:07 Call Center Coordinator Date: 03/11/2018 03:01:49 Dictated By: NEHEMIAH DILLON MD MTDD
[2018-03-11 04:00] VITALS: BP 133/66
[2018-03-11 05:55] LABS: BASOPHILS % (AUTO) 0 % (0-10); EOSINOPHILS % (AUTO) 0 % (0-10); HEMATOCRIT 31 % (40-54); HEMOGLOBIN 10.3 G/DL (13.3-17.7); LYMPHOCYTES # (AUTO) 0.5 X 10^3 (1.0-4.0); LYMPHOCYTES % (AUTO) 12 % (12-44); MEAN CORPUSCULAR HEMOGLOBIN 29 PG (25-34); MEAN CORPUSCULAR HGB CONC 33 G/DL (32-36); MEAN CORPUSCULAR VOLUME 87 FL (80-99); MEAN PLATELET VOLUME 10.3 FL (7.4-10.4); MONOCYTES # (AUTO) 0.3 X 10^3 (0.0-1.0); MONOCYTES % (AUTO) 8 % (0-12); NEUTROPHILS # (AUTO) 3.5 X 10^3 (1.8-7.8); NEUTROPHILS % (AUTO) 80 % (42-75); PLATELET COUNT 182 10^3/uL (130-400); RED BLOOD COUNT 3.56 10^6/uL (4.35-5.85); RED CELL DISTRIBUTION WIDTH 17.8 % (10.0-14.5); WHITE BLOOD COUNT 4.3 10^3/uL (4.3-11.0)
[2018-03-11] MEDS: PANTOPRAZOLE 20 MG TABLET (PROTONIX) PO SCH (06:02)
[2018-03-11] MEDS: CATHETER FLUSH 10 ML SYR IV SCH (06:02)
[2018-03-11 06:13] LABS: CALCIUM 8.2 MG/DL (8.5-10.1); CREATININE SERUM 1.26 MG/DL (0.60-1.30); MAGNESIUM 1.2 MG/DL (1.8-2.4); PHOSPHORUS 3.2 MG/DL (2.3-4.7); POTASSIUM 3.8 MMOL/L (3.6-5.0)
--- NOTE | 2018-03-11 07:35 | Diagnostic Imaging Report ---
INDICATION: Dyspnea. Comparison made with prior examination 03/10/18. FINDINGS: There is cardiomegaly. There is some venous congestion. There are patchy bibasilar infiltrates. There is no pneumothorax. Mediastinum is unremarkable. There has been previous median sternotomy and coronary bypass graft. Right upper extremity PICC line has tip in superior vena cava. IMPRESSION: Bibasilar infiltrates, left greater than right. Cardiomegaly and some central pulmonary venous congestion. Dictated by: Dictated on workstation # [id number]
[2018-03-11 08:00] VITALS: BP 111/71
[2018-03-11] MEDS: DILTIAZEM 120 MG (CARDIZEM CD) CAP PO SCH (08:38)
[2018-03-11] MEDS: LACTOBACILLUS ACIDOPHILUS (PROBIOTIC) CAPSULE PO SCH (08:38)
[2018-03-11] MEDS: cefTRIAXone FOR IV USE 1,000 MG in NS (IVPB) 50 ML IV SCH (08:38)
[2018-03-11] MEDS: FAMOTIDINE 20 MG (PEPCID) TABLET PO SCH (08:39)
[2018-03-11] MEDS: BETAMETHASONE DIPRO (AUGMENTED) 0.05% CREAM 15 GM TP SCH (08:39)
--- NOTE | 2018-03-11 09:48 | Physical Therapy Daily Note ---
PT Daily Note-Current Subjective Patient awake in chair visiting with when PT arrived. Pt agreed to get up and walk for PT. Pain Numeric Pain Scale: 0-No Pain Location: No Pain Reported Mental Status Patient Orientation: Normal For Age Attachments: IV Transfers Functional [place] Measure 0=Not Assessed/NA 4=Minimal Assistance 1=Total Assistance 5=Supervision or Setup 2=Maximal Assistance 6=Modified [place] 3=Moderate Assistance 7=Complete IndependenceIRFPAI Quality Coding Scale 6 Independent with activity with or without an assistive device 5 Patient requires set up or clean up by helper. Patient completes activity by themselves 4 Supervision or touching assist (CGA). [place] provide cues , steadying assist 3 The helper provides less than half the effort to complete the activity 2 The helper provides more than half the effort to complete the activity 1 Dependent. The helper does all the effort to complete an activity 7 Patient refused to complete or attempt activity 9 The patient did not perform the activity before the current illness or injury 88 Not attempted due to Medical conditions or safety concerns Transfers (B, C, W/C) (FIM): 5 Scootin Weight Bearing Right Lower Extremity: Right Weight Bearing/Tolerated Left Lower Extremity: Left Weight Bearing/Tolerated Gait Training Gait (FIM): 2 Distance (FIM): 3=446-13 ft Distance: 125' Gait Level of Assist: 4 Gait Persons Needed: 1 Gait Assistive Device: FWW Exercises Seated Therapy Exercises: Long arc quads, Hip flexion, Hamstring Curls Seated Reps: 10 Assessment Patient was able to ambulate for 125' with FWW requiring CGA. Patient did not show fatigue but said he was ready to return to his room. Patient performed seated exercises once he returned to sitting in his room. PT Short Term Goals Short Term Goals Distance (FIM): 3=150 ft PT Budget Examiner Goals Fpc Goals PT Budget Examiner Goals Time Frame: Mar 16, 2018 Transfers (B,C,W/C) (FIM): 6 Gait (FIM): 1 Gait distance (FIM): 1=up to 49 ft Distance: 10' Gait Level of Assist: 5 Gait Assistive Device: FWW PT Plan Problem List Problem List: Activity Tolerance, Functional Strength, Safety, Balance, Gait, Transfer Treatment/Plan Treatment Plan: Continue Plan of Care Treatment Plan: Bed Mobility, Education, Functional Strength, Gait, Safety, Therapeutic Exercise, Transfers Treatment Duration: Mar 16, 2018 Frequency: 5 times per week Estimated Hrs Per Day: .25 hour per day Patient and/or Family Agrees t: Yes Time/GCodes Time In: 901 Time Out: 924 Total Billed Treatment Time: 23 Total Billed Treatment 1 visit [facility] x - ' JAYA GUERRERO PT Mar 11, 2018 09:48
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
[2018-03-11] MEDS ORDERED: HYDR-3870 PO ×2 (10:43)
[2018-03-11] MEDS ORDERED: DILT120C63 PO ×2 (10:43)
[2018-03-11] MEDS ORDERED: CEPH-507 PO ×2 (10:43)
[2018-03-11] MEDS ORDERED: BO30SU PR ×2 (10:43)
--- NOTE | 2018-03-11 10:49 | Discharge Inst-Complex ---
PDI Med Rec & Follow Up Appt. New Medications: Cephalexin (Keflex) 500 Mg Capsule 500 MG PO QID, #20 CAP Belladonna Alkaloids/Opium (Belladonna-Opium 16.2-30 Supp) 30 Mg Supp 30 MG CA QID PRN for BLADDER SPASMS, #20 SUPP Diltiazem HCl (Diltiazem 24Hr Cd) 120 Mg Cap.er.24h 120 MG PO DAILY, #30 CAP 6 Refills Changed Medications: Hydrocodone/Acetaminophen (Lorcet 5-325 mg Tablet) 1 Each Tablet 1 TAB PO Q6H PRN for PAIN-MODERATE MDD 10, #60 TAB (Medication details modified) FOR PAIN FROM BLADDER CANCER OR LUNG CANCER Continued Medications: Alprazolam (Alprazolam) 0.5 Mg Tablet 0.5 MG PO TID PRN for ANXIETY, TAB Betamethasone/Propylene Glyc (Betamethasone Dp Aug 0.05% Crm) 15 Gm Cream..g. TP BID, TUBE Bumetanide (Bumetanide) 2 Mg Tablet 2 MG PO DAILY PRN for SWELLING, TAB Cholecalciferol (Vitamin D3) (Vitamin D3) 400 Unit Capsule 400 UNIT PO DAILY, CAP Fluticasone Furoate (Flonase Sensimist) 5.9 Ml [place].susp 2 SPRAY NS DAILY PRN for CONGESTION, SPRAY Lactobacillus Rhamnosus GG (Culturelle) 1 Each Capsule 1 CAP PO DAILY, CAP Melatonin (Melatonin) 10 Mg Tablet 10 MG PO HS, TAB Pantoprazole Sodium (Protonix) 20 Mg Tablet.dr 20 MG PO DAILY, TAB Discontinued Medications: Aspirin (Aspirin EC) 81 Mg Tablet.dr 81 MG PO HS, TAB Atorvastatin Calcium (Atorvastatin Calcium) 80 Mg Tablet 80 MG PO HS, TAB Carvedilol (Carvedilol) 6.25 Mg Tablet 6.25 MG PO BID, TAB Valsartan (Valsartan) 80 Mg Tablet 40 MG PO DAILY, TAB TAKES 1/2 (80MG) TABLET Warfarin Sodium (Warfarin Sodium) 5 Mg Tablet 2.5 MG PO TuTh, TAB TAKES 1/2 (5MG) TABLET Warfarin Sodium (Warfarin Sodium) 5 Mg Tablet 5 MG PO SuMoWeFrSa, TAB Prescription: Transmitted to Pharmacy ([facility]) Patient Instructions: GET PORT FLUSHED WEEKLY AT THE CANCER CENTER Other Instructions CANCER CENTER TO FLUSH PORT WEEKLY!!! Referrals & Orders Referrals DR. SUNSHINE/FERNANDO ON 03/15/18 [facility] IN ONE WEEK Activity, Diet and PDI Resume Normal Activity: Yes Discharge Diet: Regular Diet Driving Instructions: No Driving/Refer to Return to The Hospital For: ANY CONCERN FOR WORSENING ILLNESS, INJURY OR LIFETHREATENING BLEEDING. Symptoms to Reoprt to : Appetite Changes, Bleeding Excessive, Fever Over 101 Degrees F, Pain/Pressure in Chest, Diarrhea(Persistant), Shortness of Breath For Problems or Questions: Contact Your Physician, Go to Emergency Room Infection Signs and Symptoms: Foul Odor of Wound, Temperature Above 101 F Operative Area Clean and Dry: Keep Incision Clean/Dry CAREY CHOWDHURY MD Mar 11, 2018 10:48
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
== END 2018-03-11 13:21 | disposition home or self-care (01) | DRG 662 ==
LOC: EDUNIT# 09:11 → ER 09:12 → ICU 10:53 → 4TH 03-08 10:50
PROVIDERS: ADMIT Family Medicine; ATTEND Family Medicine
PROC: 0T9B8ZZ Drainage of Bladder, Via Natural or Artificial Opening Endoscopic (ICD-10-PCS; 2018-03-07)
PROC: 0T5B4ZZ Destruction of Bladder, Percutaneous Endoscopic Approach (ICD-10-PCS; principal; 2018-03-07 08:34)
PROC: 0JPT3WZ Removal of Totally Implantable Vascular Access Device from Trunk Subcutaneous Tissue and Fascia, Percutaneous Approach (ICD-10-PCS; 2018-03-11)
PROC: 02PY33Z Removal of Infusion Device from Great Vessel, Percutaneous Approach (ICD-10-PCS; 2018-03-11)
DX: C67.9 Malignant neoplasm of bladder, unspecified (principal); R31.0 Gross hematuria; T45.515A Adverse effect of anticoagulants, initial encounter; R57.1 Hypovolemic shock; D62 Acute posthemorrhagic anemia; C78.01 Secondary malignant neoplasm of right lung; N13.5 Crossing vessel and stricture of ureter without hydronephrosis; T82.7XXA Infection and inflammatory reaction due to other cardiac and vascular devices, implants and grafts, initial encounter; Z66 Do not resuscitate; I12.9 Hypertensive chronic kidney disease with stage 1 through stage 4 chronic kidney disease, or unspecified chronic kidney disease; N18.3 Chronic kidney disease, stage 3 (moderate); R59.1 Generalized enlarged lymph nodes; I25.10 Atherosclerotic heart disease of native coronary artery without angina pectoris; E83.42 Hypomagnesemia; I48.0 Paroxysmal atrial fibrillation; N17.9 Acute kidney failure, unspecified; E78.00 Pure hypercholesterolemia, unspecified; I27.20 Pulmonary hypertension, unspecified; I35.0 Nonrheumatic aortic (valve) stenosis; G57.93 Unspecified mononeuropathy of bilateral lower limbs; K44.9 Diaphragmatic hernia without obstruction or gangrene; F41.9 Anxiety disorder, unspecified; M19.91 Primary osteoarthritis, unspecified site; Z79.01 Long term (current) use of anticoagulants; Z79.82 Long term (current) use of aspirin; Z92.21 Personal history of antineoplastic chemotherapy; Z92.3 Personal history of irradiation; Z87.891 Personal history of nicotine dependence; Z95.1 Presence of aortocoronary bypass graft; Z86.79 Personal history of other diseases of the circulatory system
CPT/HCPCS: 36415; 36569; 51702; 71045; 76937; 80048; 80053; 83605; 83735; 84100; 85007; 85014; 85018; 85025; 85027; 85610; 85730; 86850; 86900; 86901; 86920; 87040; 87070; 87077; 87081; 87186; 87205; 93041; 93306; 94664; 96361; 96374

== ENCOUNTER 2018-03-29 13:55 | Inpatient (IN) | payer MEDICARE, OTHER ==
[~2018-03-29] VITALS: Ht 175.3 cm; Wt 68.7 kg
[~2018-03-29 13:55] MED LIST changes: -HYDR-3812 PO; -IOHEXOL 350 MG/ML 150 ML (OMNIPAQUE 350) VIAL IV ONE; -MAGN400T39 PO; -NS 250 ML (IVPB) BAG IV ONE; -RECEIVED CONTRAST (Hold Metformin) IV SCH
[2018-03-29] MEDS ORDERED: HEParin 1000 UNIT/ML (10ML VIAL) FOR BOLUS IV SCH ×2 (14:15→19:45)
[2018-03-29] MEDS ORDERED: LIDOCAINE PF 2% 2 ML (XYLOCAINE) VIAL IJ ONE (14:20)
[2018-03-29] MEDS ORDERED: LIDOCAINE PF 2% 5 ML (XYLOCAINE) VIAL INJ ONE (14:20)
[2018-03-29] MEDS ORDERED: LIDOCAINE JELLY 2% (XYLOCAINE) 30 ML TUBE TOP ONE (14:20)
[2018-03-29 14:50] VITALS: BP 143/70
[2018-03-29] MEDS ORDERED: DILT120C63 PO (14:53)
[2018-03-29] MEDS ORDERED: MAGN400T39 PO (14:53)
[2018-03-29] MEDS ORDERED: HYDR-3812 PO (14:53)
[2018-03-29] MEDS ORDERED: ALPR0.5T7 PO (15:07)
[2018-03-29] MEDS ORDERED: CATHETER FLUSH 10 ML SYR IV PRN (15:30)
[2018-03-29] MEDS: HEParin DRIP 25000 UNIT/500ML 500 ML IV SCH (15:55)
[2018-03-29] MEDS: HEParin 1000 UNIT/ML (10ML VIAL) FOR BOLUS IV SCH (15:55)
[2018-03-29 16:00] VITALS: BP 148/76
[2018-03-29] MEDS ORDERED: BETAMETHASONE DIPRO (AUGMENTED) 0.05% CREAM 15 GM TP PRN (16:00)
[2018-03-29] MEDS ORDERED: FLUTICASONE FUROATE NS PRN (16:00)
[2018-03-29] MEDS ORDERED: ALPRAZolam 0.5 MG (XANAX) TAB PO PRN (16:00)
[2018-03-29] MEDS ORDERED: NON-FORMULARY MEDICATION 1 EA EA (Bumetanide 2 MG) PO PRN (16:00)
[2018-03-29] MEDS ORDERED: NON-FORMULARY MEDICATION 1 EA EA (Hydrocodone/Acetaminophen (Hydrocodone-Acetamin 5-325 mg PO SCH (16:00)
--- NOTE | 2018-03-29 16:24 | Pulmonary Consultation ---
History of Present Illness History of Present Illness Date of Consultation 03/29/18 16:22 Date of Admission Allergies and Home Medications Allergies Coded Allergies: amoxicillin (Verified Allergy, Intermediate, HIVES, 03/04/18) nitroglycerin (Verified Allergy, Mild, DECREASED BP, 03/04/18) Home Medications Alprazolam 0.5 Mg Tablet, 0.5 MG PO 0700,2030 PRN for ANXIETY, (Reported) Alprazolam 0.5 Mg Tablet, 0.5 MG PO 1200 PRN for ANXIETY, (Reported) Betamethasone/Propylene Glyc 15 Gm Cream..g., TP BID PRN for WOUNDS, (Reported) Bumetanide 2 Mg Tablet, 2 MG PO DAILY PRN for SWELLING, (Reported) Cholecalciferol (Vitamin D3) 400 Unit Capsule, 400 UNIT PO DAILY, (Reported) Diltiazem HCl 120 Mg Cap.er.24h, 120 MG PO DAILY, (Reported) Fluticasone Furoate 5.9 Ml [place].susp, 2 SPRAY NS DAILY PRN for CONGESTION, ( Reported) Hydrocodone/Acetaminophen 1 Each Tablet, 1 TAB PO Q6H, (Reported) Lactobacillus Rhamnosus GG 1 Each Capsule, 1 CAP PO DAILY, (Reported) Magnesium Oxide 400 Mg Tablet, 400 MG PO BID, (Reported) Melatonin 10 Mg Tablet, 10 MG PO HS, (Reported) Pantoprazole Sodium 20 Mg Tablet.dr, 20 MG PO DAILY, (Reported) Past [id number] Hx Patient Social History Type Used: Cigars Former Smoker, Quit: Jan 08, 2011 2nd Hand Smoke Exposure: No Recent Foreign Travel: No Contact w/Someone Who Travel: No Recent Hopitalizations: Yes Immunizations Up To Date Tetanus Booster (TDap): Unknown Date of Pneumonia Vaccine: Jan 19, 2012 Date of Influenza Vaccine: Feb 07, 2014 Seasonal Allergies Seasonal Allergies: No Past Medical History Surgeries: Yes (ANEURYSM REPAIR,CABG,TURBT, bilat carotid endart.) Appendectomy, Bladder Surgery, CABG, Orthopedic, Transurethral Resection, Vascular Surgery Respiratory: Yes (LUNG MASS; HX OF SMOKING; PULMONARY HTN) Currently Using CPAP: No Currently Using BIPAP: No Cardiac: Yes (CAROTID DISEASE; AORTIC STENOSIS; PULMONARY HTN) Aneurysm, Atrial Fibrillation, Coronary Artery Disease, High Cholesterol, Hypertension, Valvular Heart Disease Neurological: Yes (neuropathy in both legs) Neuropathy Reproductive Disorders: No Sexually Transmitted Disease: No Genitourinary: Yes (bladder tumor removed 2-3 yrs ago) Renal Failure Gastrointestinal: Yes Hiatal Hernia Musculoskeletal: Yes (arthritis) Arthritis Endocrine: No HEENT: Yes Loss of Vision: Denies Hearing Impairment: Hard of Hearing Cancer: Yes Bladder, Lung Did You Recieve Any Treatments: Yes What Type of Treatment Did You: Chemotherapy, Radiation, Surgical Intervention Psychosocial: No Integumentary: Yes (RADIATION RASH) Recent Skin Changes Blood Disorders: No Family Medical History Ca 19 MOTHER G8 SISTER Cancer of mouth 19 MOTHER Cardiovascular disease 19 FATHER Heart Disease, Cancer, Hypertension Sepsis Event Evaluation Height, Weight, BMI Height: 5'9.00" Weight: 151lbs. 8.0oz. 68.224850xy; 22.4 BMI Method:Stated Exam Exam Vital Signs Date Time Temp Pulse Resp B/P (MAP) Pulse Ox O2 Delivery O2 Flow Rate FiO2 03/29/18 14:50 97.6 115 24 143/70 (94) 92 Nasal Cannula 2.00 Height & Weight Height: 5'9.00" Weight: 151lbs. 8.0oz. 68.132254av; 22.4 BMI Method:Stated Assessment/Plan Assessment/Plan Diffuse bilateral infiltrates pneumonia vs lymphangitic spread -Will do bronchoscopy tomorrow morning in endoscopy -Hold heparin at 3am Hx lung cancer/bladder cancer GODFREY WILL DO Mar 29, 2018 16:24
[2018-03-29] MEDS ORDERED: FLUTICASONE NASAL SPRAY (FLONASE) 16 GM BTL NS PRN (16:45)
[2018-03-29] MEDS ORDERED: BUMETANIDE 1 MG (BUMEX) TAB PO PRN (16:45)
[2018-03-29] MEDS: NS IV 1000 ML 1,000 ML IV SCH (18:43)
[2018-03-29] MEDS: HYDROcodone/APAP 5 MG/325 MG (LORTAB) TAB PO SCH (18:51)
[2018-03-29] MEDS ORDERED: HEParin DRIP 25000 UNIT/500ML 500 ML IV SCH (19:35)
[2018-03-29 20:00] VITALS: BP 159/74
[2018-03-29 20:14] LABS: MEAN PLATELET VOLUME 9.7 FL (7.4-10.4); RED CELL DISTRIBUTION WIDTH 18.2 % (10.0-14.5)
[2018-03-29 20:16] LABS: HEMOGLOBIN 9.1 G/DL (13.3-17.7); RED BLOOD COUNT 3.14 10^6/uL (4.35-5.85); WHITE BLOOD COUNT 7.5 10^3/uL (4.3-11.0)
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
[2018-03-29] MEDS ORDERED: NON-FORMULARY MEDICATION 1 EA EA (Magnesium Oxide (Magnesium) 400 MG) PO SCH (21:00)
[2018-03-29] MEDS ORDERED: NON-FORMULARY MEDICATION 1 EA EA (Melatonin 10 MG) PO SCH (21:00)
[2018-03-29] MEDS: CATHETER FLUSH 10 ML SYR IV SCH (22:03)
[2018-03-29] MEDS: MAGNESIUM OXIDE (MAG-OX)400 MG TAB PO SCH (22:11)
[2018-03-29] MEDS: MELATONIN 3 MG TABLET PO SCH (22:11)
[2018-03-29] MEDS: ALPRAZolam 0.5 MG (XANAX) TAB PO PRN (22:13)
[2018-03-30] VITALS: BP 167/79
[2018-03-30] MEDS: HYDROcodone/APAP 5 MG/325 MG (LORTAB) TAB PO SCH ×5 (01:07→23:36)
[2018-03-30 04:00] VITALS: BP 147/74
[2018-03-30] MEDS: CATHETER FLUSH 10 ML SYR IV SCH ×3 (05:12→20:39)
[2018-03-30 06:20] LABS: BASOPHILS % (AUTO) 0 % (0-10); EOSINOPHILS # (AUTO) 0.1 10^3/uL (0.0-0.3); EOSINOPHILS % (AUTO) 2 % (0-10); HEMATOCRIT 32 % (40-54); HEMOGLOBIN 10.1 G/DL (13.3-17.7); LYMPHOCYTES # (AUTO) 0.5 X 10^3 (1.0-4.0); LYMPHOCYTES % (AUTO) 7 % (12-44); MEAN CORPUSCULAR HEMOGLOBIN 28 PG (25-34); MEAN CORPUSCULAR HGB CONC 32 G/DL (32-36); MEAN CORPUSCULAR VOLUME 90 FL (80-99); MEAN PLATELET VOLUME 9.9 FL (7.4-10.4); MONOCYTES # (AUTO) 0.2 X 10^3 (0.0-1.0); MONOCYTES % (AUTO) 3 % (0-12); NEUTROPHILS # (AUTO) 5.9 X 10^3 (1.8-7.8); NEUTROPHILS % (AUTO) 89 % (42-75); PLATELET COUNT 231 10^3/uL (130-400); RED BLOOD COUNT 3.57 10^6/uL (4.35-5.85); RED CELL DISTRIBUTION WIDTH 18.6 % (10.0-14.5); WHITE BLOOD COUNT 6.6 10^3/uL (4.3-11.0)
--- NOTE | 2018-03-30 06:24 | Pulmonary Progress Note ---
Subjective Time Seen by a Provider: 10:28 Subjective/Events-last exam Pt complains of SOB and coarse chest. He is not able to cough up secretions. Sepsis Event Evaluation Height, Weight, BMI Height: 5'9.00" Weight: 151lbs. 8.0oz. 68.384100ip; 22.4 BMI Method:Stated Exam Exam Vital Signs Date Time Temp Pulse Resp B/P (MAP) Pulse Ox O2 Delivery O2 Flow Rate FiO2 03/30/18 00:00 98.6 96 16 167/79 (108) 90 Nasal Cannula 4.00 03/29/18 23:59 Nasal Cannula 4.00 03/29/18 21:00 Nasal Cannula 4.00 03/29/18 20:00 99.4 103 23 159/74 (102) 90 Nasal Cannula 4.00 03/29/18 16:00 99.2 97 21 148/76 (100) 88 Nasal Cannula 4.00 03/29/18 14:50 97.6 115 24 143/70 (94) 92 Nasal Cannula 2.00 I & O 03/30/18 07:00 Intake Total 360 ml Output Total 250 ml Balance 110 ml Height & Weight Height: 5'9.00" Weight: 151lbs. 8.0oz. 68.598373uj; 22.4 BMI Method:Stated General Appearance: Anxious, Mild Distress HEENT: PERRL/EOMI, Normal ENT Inspection, Pharynx Normal Neck: Full Range of Motion, Non Tender, Supple Respiratory: Chest Non Tender, Accessory Muscle Use, Crackles, Decreased Breath Sounds Cardiovascular: Regular Rate, Rhythm, No Edema, No Gallop Capillary Refill: Less Than 3 Seconds Gastrointestinal: normal bowel sounds, non tender, soft Extremity: Normal Capillary Refill, Normal Inspection Neurologic/Psychiatric: Alert, Oriented x3 Skin: Normal Color, Warm/Dry Results Lab Laboratory Tests 03/29/18 20:05 03/30/18 06:06 Assessment/Plan Assessment/Plan Diffuse bilateral infiltrates pneumonia vs lymphangitic spread -Will do bronchoscopy this morning in endoscopy -Start vancomycin, and Merrem (pt is allergic to Amoxil) SOB with hypoxia -Oxygen Mucous plugging -Start SVNs with duoneb and Mucomyst Atelectasis Acute PE and RUE DVT from PICC line -Heparin gtt 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 Lawson is following Discussed with family and Dr. Lawson regarding plan of care with bronchoscopy, and abx. Family is in agreement with bronchoscopy. 60 min spent with patient, family and medical staff regarding plan of care not including bronchoscopy. GODFREY WILL DO Mar 30, 2018 06:24
[2018-03-30] MEDS: NS IV 1000 ML 1,000 ML IV SCH ×3 (06:25→22:32)
[2018-03-30 06:40] LABS: CALCIUM 8.3 MG/DL (8.5-10.1); CREATININE SERUM 1.23 MG/DL (0.60-1.30); POTASSIUM 3.7 MMOL/L (3.6-5.0)
[2018-03-30] MEDS ORDERED: MIDAZOLAM 2 MG/2 ML (VERSED) VIAL ONE (07:52)
[2018-03-30 08:00] VITALS: BP 153/77
[2018-03-30] MEDS ORDERED: NS IV 500 ML 500 ML IV PRN (08:24)
[2018-03-30] MEDS ORDERED: fentaNYL INJECTION 100 MCG/2 ML AMP IVP ONE (08:30)
[2018-03-30] MEDS ORDERED: MIDAZOLAM 2 MG/2 ML (VERSED) VIAL IVP ONE (08:30)
[2018-03-30] MEDS ORDERED: NON-FORMULARY MEDICATION 1 EA EA (Lactobacillus Rhamnosus GG (Culturelle) 1 CAP) PO SCH (09:00)
[2018-03-30] MEDS ORDERED: NON-FORMULARY MEDICATION 1 EA EA (Pantoprazole Sodium (Protonix) 20 MG) PO SCH (09:00)
[2018-03-30] MEDS ORDERED: NON-FORMULARY MEDICATION 1 EA EA (Cholecalciferol (Vitamin D3) (Vitamin D3) 400 UNIT) PO SCH (09:00)
[2018-03-30] MEDS ORDERED: NON-FORMULARY MEDICATION 1 EA EA (Diltiazem HCl (Diltiazem 24Hr Cd) 120 MG) PO SCH (09:00)
--- NOTE | 2018-03-30 09:25 | Consultation ---
History of Present Illness History of Present Illness Patient Consulted On(yemi/time) 03/30/18 09:24 Date Seen by Provider: Mar 30, 2018 Time Seen by Provider: 09:10 Reason for Visit: PULMONARY EMBOLISM History of Present Illness PT IS A 77 Y/O MALE WHO IS KNOWN TO ME FROM CLINIC. HE PRESENTED TO THE CAN[facility]ER CENTER WITH COMPLAINT OF SEVERE SWELLING OF THE RIGHT ARM AND SHORTNESS OF BREATH. HE WAS FOUND TO HAVE A RIGHT UPPER EXTREMITY DEEP VEIN THROMBOSIS AND ACUTE PULMONARY EMBOLISM. THIS MORNING HE STATES THAT HE IS FEELING A LOT BETTER. HE HAD BRONCHOSCOPY WITH SUCTIONING AND HE FEELS BETTER THAT ON ADMISSION. HE DENIES URINARY ISSUES/HEMATURIA. Allergies and Home Medications Allergies Coded Allergies: amoxicillin (Verified Allergy, Intermediate, HIVES, 03/04/18) nitroglycerin (Verified Allergy, Mild, DECREASED BP, 03/04/18) Home Medications Alprazolam 0.5 Mg Tablet, 0.5 MG PO 0700,2030 PRN for ANXIETY, (Reported) Alprazolam 0.5 Mg Tablet, 0.5 MG PO 1200 PRN for ANXIETY, (Reported) Betamethasone/Propylene Glyc 15 Gm Cream..g., TP BID PRN for WOUNDS, (Reported) Bumetanide 2 Mg Tablet, 2 MG PO DAILY PRN for SWELLING, (Reported) Cholecalciferol (Vitamin D3) 400 Unit Capsule, 400 UNIT PO DAILY, (Reported) Diltiazem HCl 120 Mg Cap.er.24h, 120 MG PO DAILY, (Reported) Fluticasone Furoate 5.9 Ml [place].susp, 2 SPRAY NS DAILY PRN for CONGESTION, ( Reported) Hydrocodone/Acetaminophen 1 Each Tablet, 1 TAB PO Q6H, (Reported) Lactobacillus Rhamnosus GG 1 Each Capsule, 1 CAP PO DAILY, (Reported) Magnesium Oxide 400 Mg Tablet, 400 MG PO BID, (Reported) Melatonin 10 Mg Tablet, 10 MG PO HS, (Reported) Pantoprazole Sodium 20 Mg Tablet.dr, 20 MG PO DAILY, (Reported) Patient Home Medication List Home Medication List Reviewed: Yes Past Vlazbck-Ldzsqo-Vpfbxq Hx Past Med/Social Hx: Reviewed Nursing Past Med/Soc Hx, Reviewed and Corrections made Patient Social History Alcohol Use: Denies Use Recreational Drug Use: No Smoking Status: Former Smoker Type Used: Cigars Former Smoker, Quit: Jan 08, 2011 2nd Hand Smoke Exposure: No Recent Foreign Travel: No Contact w/Someone Who Travel: No Recent Hopitalizations: Yes Physical Abuse: No Sexual Abuse: No Mistreated: No Fear: No Immunizations Up To Date Tetanus Booster (TDap): Unknown Date of Pneumonia Vaccine: Jan 19, 2012 Date of Influenza Vaccine: Feb 07, 2018 Seasonal Allergies Seasonal Allergies: No Past Medical History Surgeries: Yes (ANEURYSM REPAIR,CABG,TURBT, bilat carotid endart.) Appendectomy, Bladder Surgery, CABG, Orthopedic, Transurethral Resection, Vascular Surgery Respiratory: Yes (LUNG MASS; HX OF SMOKING; PULMONARY HTN) Currently Using CPAP: No Currently Using BIPAP: No Cardiac: Yes (CAROTID DISEASE; AORTIC STENOSIS; PULMONARY HTN) Aneurysm, Atrial Fibrillation, Coronary Artery Disease, High Cholesterol, Hypertension, Valvular Heart Disease Neurological: Yes (neuropathy in both legs) Neuropathy Reproductive Disorders: No Sexually Transmitted Disease: No Genitourinary: Yes (bladder tumor removed 2-3 yrs ago) Renal Failure Gastrointestinal: Yes Hiatal Hernia Musculoskeletal: Yes (arthritis) Arthritis Endocrine: No HEENT: Yes Loss of Vision: Denies Hearing Impairment: Hard of Hearing Cancer: Yes Bladder, Lung Did You Recieve Any Treatments: Yes What Type of Treatment Did You: Chemotherapy, Radiation, Surgical Intervention Psychosocial: No Integumentary: Yes (RADIATION RASH) Recent Skin Changes Blood Disorders: No Family Medical History Reviewed and Corrections made Ca 19 MOTHER G8 SISTER Cancer of mouth 19 MOTHER Cardiovascular disease 19 FATHER Heart Disease, Cancer, Hypertension Review of Systems-General Constitutional: No chills, No fever; malaise, weakness, weight loss EENTM: No hoarseness, No throat pain Respiratory: cough, dyspnea on exertion, short of breath Cardiovascular: No chest pain, No palpitations Gastrointestinal: No abdominal pain, No loss of appetite Genitourinary: no symptoms reported Musculoskeletal: No back pain; muscle weakness Skin: No change in color Psychiatric/Neurological: Denies Anxiety, Denies Depressed; Weakness All Other Systems Reviewed Negative Unless Noted: Yes Physical Exam-General Problems Physical Exam Vital Signs Vital Signs - First Documented 03/29/18 14:50 Temp 97.6 Pulse 115 Resp 24 B/P (MAP) 143/70 (94) Pulse Ox 92 O2 Delivery Nasal Cannula O2 Flow Rate 2.00 Capillary Refill : General Appearance: no apparent distress, thin HEENT: PERRL/EOMI, pharynx normal Neck: non-tender, supple, normal inspection Respiratory: chest non-tender, decreased breath sounds, crackles, wheezing Cardiovascular: regular rate, rhythm Gastrointestinal: normal bowel sounds, non tender, soft Rectal: deferred Extremities: normal range of motion, normal capillary refill, other (RIGHT UPPER EXTREMITY EDEMA) Neurologic/Psychiatric: boom tender II-XII nml as tested, alert, normal mood/affect, oriented x 3 Skin: warm/dry Assessment/Plan Assessment/Plan Admission Diagnosis/Plan PULMONARY EMBOLISM RIGHT UPPER EXTREMITY DEEP VEIN THROMBOSIS PNEUMONIA ANEMIA BLADDER CANCER HYPERTENSION ATRIAL FIBRILLATION PULMONARY EMBOLISM DUE TO RIGHT UPPER EXTREMITY DEEP VEIN THROMBOSIS - PT ON HEPARIN DRIP - CONTINUE WITH TREATMENT, DEFER TO DR. SUNSHINE. PNEUMONIA - STATUS POST BRONCHOSCOPY WITH IMPROVED SYMPTOMS. ANEMIA - STABLE - WILL NEED TO CLOSELY MONITOR SYMPTOMS WE HAD TO TAKE HIM OFF OF ANTICOAGULATION DUE TO PERSISTENT HEMATURIA. BLADDER CANCER - DEFER TO DR. SUNSHINE LUNG CANCER - DEFER TO DR. SUNSHINE HYPERTENSION - RESUME DILTIAZEM ATRIAL FIBRILLATION - RESUME DILTIAZEM. Admission Status: Inpatient Order (span 2 midnights) Reason for Inpatient Admission: INPATIENT STAY ANTICIPATED AT LEAST 3 MIDNIGHTS DUE TO UPPER EXTREMITY DVT, PULMONARY EMBOLISM, BLADDER AND LUNG CANCER Clinical Quality Measures DVT/VTE Risk/Contraindication: Risk Factor Score Per Nursin RFS Level Per Nursing on Admit: 4+=Very High CAREY CHOWDHURY MD Mar 30, 2018 09:25
[2018-03-30] MEDS: LACTOBACILLUS ACIDOPHILUS (PROBIOTIC) CAPSULE PO SCH (09:28)
[2018-03-30] MEDS: VITAMIN D3 400 UNITS (CHOLECALCIFEROL) TABLET PO SCH (09:28)
[2018-03-30] MEDS: MAGNESIUM OXIDE (MAG-OX)400 MG TAB PO SCH ×2 (09:28→20:39)
[2018-03-30] MEDS: DILTIAZEM 120 MG (CARDIZEM CD) CAP PO SCH (09:28)
[2018-03-30] MEDS: PANTOPRAZOLE 40 MG (PROTONIX) VIAL IV SCH (09:28)
[2018-03-30] MEDS ORDERED: RT-ALBUTEROL/IPRATROPIUM 3 ML (DUONEB) VIAL INH PRN (10:15)
--- NOTE | 2018-03-30 10:19 | Diagnostic Imaging Report ---
Portable supine AP chest at 8:38. Indication: Post bronchoscopy. As noted on the exam performed earlier today at 3:50 AM there is cardiomegaly, evidence of prior cardiac surgery and diffuse alveolar/interstitial pulmonary infiltrates along both lungs, particularly the right lung. Reported in the interval since the prior exam, the patient has undergone bronchoscopy. There is no sign of a pneumothorax although a small pneumothorax could be present yet undetected on a supine film such as this. The overall appearance of the chest has not changed significantly otherwise. Impression: Stable chest. There has been no adverse change since the prior exam. A followup study would be recommended for continued evaluation. Dictated by: Dictated on workstation # [id number]
[2018-03-30] MEDS ORDERED: PHARMACY TO DOSE IV SCH (10:30)
--- NOTE | 2018-03-30 10:34 | Pulmonary Procedures ---
Pulmonary Procedures Date of Procedure Date of Service: Mar 30, 2018 Bronch Bronchoscopy with bilateral washes and lavaging copious amounts of thick yellow sputum/pluggs with several passes. Preop DX pneumonia Postop DX: same mucous plugging no endobronchial mass. Complications: none After informed consent obtained and formal time out pt was sedated using Fentanyl and Versed. Bronchoscope was advanced through the nare and vocal cords. 1% lidocaine was used to anesthetize vocal cords, epiglottis, marianne, and left/right main stem bronchus. An anatomical tour was undertaken down to the segmental bronchi bilaterally. No endobronchial lesions noted. Bilateral washes and lavaging copious amounts of thick yellow sputum/pluggs with several passes.. Pt tolerated procedure well. No complications noted. Stat CXR is pending. GODFREY WILL DO Mar 30, 2018 10:34
--- NOTE | 2018-03-30 10:38 | Diagnostic Imaging Report ---
INDICATION: Infiltrate, followup. TECHNIQUE: Single view chest 3:58 AM. CORRELATION STUDY: 03/11/2018 FINDINGS: Poststernotomy and coronary artery bypass changes. Cardiac enlargement relatively stable. Vascular is largely obscured. Previous right-sided tip line has been removed. There is progressive and rather extensive consolidated infiltrate-like densities throughout both lung nova. There is a slightly greater involvement of the right lung compared to left lung. Additionally, previously noted more focal masslike density at the right mid lung field is largely obscured by the area of consolidation. Most hilar structures may reflect potential adenopathy or mass lesion, right greater than left. IMPRESSION: 1. Rather extensive and progressive consolidating infiltrate throughout both lung nova right greater than left. 2. Previously noted masslike density of the right mid lung field as well as hilar fullness is largely obscured by the areas of consolidation. Dictated by: Dictated on workstation # [id number]
[2018-03-30 10:45] VITALS: BP 153/77
[2018-03-30] MEDS ORDERED: VANCOMYCIN 1500 MG/NS 500 ML IVPB IV NR ×2 (11:00)
[2018-03-30 12:00] VITALS: BP 144/71
[2018-03-30] MEDS: MEROPENEM 500 MG in NS (IVPB) 100 ML IV SCH ×3 (14:13→23:36)
--- NOTE | 2018-03-30 14:54 | Progress Note-Standard ---
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 The patient completed 6 weeks of radiation therapy with weekly chemotherapy. Treatment held because of the significant hematuria. Patient is gradually recovering from this. Admitted with the right upper extremity swelling and evidence of DVT as well as the right lower lobe PE. CT angiogram with the bilateral infiltrates/atelectasis. Dr. Cruz did a bronchoscopy with washings bilaterally. Patient had evidence of significant mucus plugging which was washed out. He is on broad-spectrum antibiotics with meropenem and vancomycin. He is continuing on heparin and had a small amount of hematuria last night. Labs monitored today with hemoglobin stable and improvement of renal function. Continue IV fluids cautiously. Patient is clinically looking better today. His appetite is improving and wanted to eat more. I will change the diet to regular as tolerated. Today I discussed the DO NOT RESUSCITATE status with patient and per his wishes will make him DO NOT RESUSCITATE. Rest of the treatment will continue as is. I will also obtain a consultation with for cardiac follow-up. We'll obtain physical therapy consultation for strengthening and ambulation. Recheck lab work tomorrow morning. Appreciate Dr. Cruz's and Dr. Ferro's help. LAVERNE SUNSHINE Mar 30, 2018 14:54
[2018-03-30] MEDS: aCETylcysteine 20% (MUCOMYST) 30ML SOLN VIAL INH SCH ×2 (14:57→21:44)
[2018-03-30] MEDS: RT-ALBUTEROL/IPRATROPIUM 3 ML (DUONEB) VIAL INH SCH ×3 (14:57→21:46)
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
--- NOTE | 2018-03-30 17:58 | Consultation-Cardiology ---
HPI-Cardiology Cardiology Consultation: Date of Consultation 03/30/18 Date of Admission Attending Physician Wilber Lawson Admitting Physician Verna Ferro MD Consulting Physician Charles BRANDON MD HPI: Time Seen by a Provider: 17:15 Chief Complaint: Shortness of breath, tachycardia This is a 77-year-old gentleman who has previous history of CAD, CABG, paroxysmal atrial fibrillation on anticoagulation previously however discontinued due to significant hematuria. 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 He is on treatment with chemotherapy and radiation and has completed 6 weeks. Few weeks ago he developed significant hematuria requiring transfusion. Oral anticoagulation was discontinued at that point in time. [facility] and was found to be significant short of breath and tachycardic. He had a PICC line placed in his right arm however right upper extremity ultrasound study shows DVT and CT angiography of the chest shows right lower lobe pulmonary artery embolization. The patient was hypoxic in the [facility] center there for hospitalization was done. Dr. Cruz did bronchoscopy which revealed significant mucous plugs. When I saw the patient today he feels better with improved shortness of breath. He denied any chest pain, syncope, near-syncope. Review of Systems-Cardiology Review of Systems Constitutional: As described under HPI; No As described under HPI, No no symptoms reported, No chills, No fever, No lightheadedness Eyes: No As described under HPI, No no symptoms reported, No blindness, No blurred vision, No contact lenses, No drainage, No decreased acuity, No foreign body sensation, No pain, No vision change Ears/Nose/Throat: No As described under HPI, No no symptoms reported, No chronic hearing loss, No ear discharge, No ear pain, No nasal drainage, No ulcerations Respiratory: No no symptoms reported; As described under HPI; No As described under HPI, No cough, No orthopnea; shortness of breath; No SOB with excertion Cardiovascular: No no symptoms reported; As described under HPI; No As described under HPI, No chest pain, No edema, No irregular heart rate, No lightheadedness, No palpitations Gastrointestinal: No no symptoms reported, No As described under HPI, No abdomen distended, No abdominal pain, No blood streaked bowels, No constipation , No diarrhea, No nausea, No vomiting, No stool coloration changes Genitourinary: No As described under HPI, No burning, No dysuria, No discharge , No frequency, No flank pain, No hematuria, No urgency Skin: No rash, No skin related problems, No ulcerations Psychiatric/Neurological: No anxiety, No depression, No seizure, No focal weakness, No syncope Hematologic: No bleeding abnormalities KZC-Gzgahs-Byloes Hx Patient Social History Alcohol Use: Denies Use Recreational Drug Use: No Smoking Status: Former Smoker Type Used: Cigars 2nd Hand Smoke Exposure: No Recent Foreign Travel: No Physical Abuse Screen: No Sexual Abuse: No Immunizations Up To Date Tetanus Booster (TDap): Unknown Date of Pneumonia Vaccine: Jan 19, 2012 Date of Influenza Vaccine: Feb 07, 2018 Past Medical History PMH As described under Assessment. Family Medical History Family History: Ca 19 MOTHER G8 SISTER Cancer of mouth 19 MOTHER Cardiovascular disease 19 FATHER Allergies and Home Medications Allergies Coded Allergies: amoxicillin (Verified Allergy, Intermediate, HIVES, 03/04/18) nitroglycerin (Verified Allergy, Mild, DECREASED BP, 03/04/18) Home Medications Alprazolam 0.5 Mg Tablet, 0.5 MG PO 0700,2030 PRN for ANXIETY, (Reported) Alprazolam 0.5 Mg Tablet, 0.5 MG PO 1200 PRN for ANXIETY, (Reported) Betamethasone/Propylene Glyc 15 Gm Cream..g., TP BID PRN for WOUNDS, (Reported) Bumetanide 2 Mg Tablet, 2 MG PO DAILY PRN for SWELLING, (Reported) Cholecalciferol (Vitamin D3) 400 Unit Capsule, 400 UNIT PO DAILY, (Reported) Diltiazem HCl 120 Mg Cap.er.24h, 120 MG PO DAILY, (Reported) Fluticasone Furoate 5.9 Ml [place].susp, 2 SPRAY NS DAILY PRN for CONGESTION, ( Reported) Hydrocodone/Acetaminophen 1 Each Tablet, 1 TAB PO Q6H, (Reported) Lactobacillus Rhamnosus GG 1 Each Capsule, 1 CAP PO DAILY, (Reported) Magnesium Oxide 400 Mg Tablet, 400 MG PO BID, (Reported) Melatonin 10 Mg Tablet, 10 MG PO HS, (Reported) Pantoprazole Sodium 20 Mg Tablet.dr, 20 MG PO DAILY, (Reported) Patient Home Medication List Home Medication List Reviewed: Yes Physical Exam-Cardiology Physical Exam Vital Signs/I&O 03/30/18 03/30/18 03/30/18 03/30/18 07:03 07:50 08:00 10:00 Temp 98.9 Pulse 124 Resp 16 22 B/P (MAP) 153/77 (102) Pulse Ox 91 90 92 O2 Delivery Nasal Cannula Nasal Cannula Nasal Cannula O2 Flow Rate 2.50 4.00 4.00 03/30/18 03/30/18 03/30/18 12:00 14:58 15:12 Temp 100.6 100.8 Pulse 98 98 Resp 22 20 B/P (MAP) 144/71 (95) Pulse Ox 92 93 O2 Delivery Nasal Cannula Nasal Cannula O2 Flow Rate 4.00 4.50 03/30/18 00:00 Intake Total 360 ml Output Total 250 ml Balance 110 ml Capillary Refill : Less Than 3 Seconds Constitutional: appears stated age, AAO x 3; No apparent distress; well- developed, well-nourished HEENT: PERRL; No normal ENT inspection, No TMs normal, No pharynx normal, No scleral icterus (R), No scleral icterus (L), No pale conjunctivae (R), No pale conjunctivae (L), No photophobia, No TM abnormal (R), No TM abnormal (L), No pharyngeal erythema, No tonsillar exudate, No other, No discharge, No EOMI; hearing is well preserved; No hard of hearing; oral hygience is good; No ulceration, No xanthelasmas are seen Neck: No non-tender, No full range of motion, No supple, No normal inspection, No carotid bruit, No limited range of motion, No lymphadenopathy (R), No lymphadenopathy (L), No tender lateral, No tender midline, No thyromegaly, No other; carotid pulses are 2 + bilaterally; No with good upstrokes Respiratory: chest is bilaterally symmetric, lungs clear to auscultation Cardiovascular: regular rate-rhythm, S1 and S2, systolic murmur Gastrointestinal: No tender, No soft, No round, No distended, No pulsatile mass , No organomegaly, No guarding, No rebound, No tenderness, No hernia, No mass, No audible bowel sounds, No abnormal bowel sounds, No abdominal bruits, No spleenomegaly, No other Rectal: deferred Extremities: No normal range of motion, No non-tender, No normal inspection, No pedal edema, No calf tenderness, No normal capillary refill, No pelvis stable , No calf tenderness, No inflammation, No pedal edema, No slow capillary refill , No swelling, No other, No abrasion, No clubbing, No cyanosis, No ecchymosis, No laceration, No no lower extremity edema bilateral, No significant edema, No tenderness, No wound Neurologic/Psychiatric: no motor/sensory deficits, alert, normal mood/affect, oriented x 3, power is 5/5 both on sides Skin: No normal color, No warm/dry, No cyanosis, No cool, No diaphoresis, No damp, No ecchymosis, No jaundice, No mottled, No pallor, No rash, No tattoos/ piercings, No ulcerations, No rash on exposed areas, No ulcerations on exposed areas, No other Data Review Labs Laboratory Tests 03/29/18 20:05: White Blood Count 7.5, Red Blood Count 3.14L, Hemoglobin 9.1L, Hematocrit 28L, Mean Corpuscular Volume 89, Mean Corpuscular Hemoglobin 29, Mean Corpuscular Hemoglobin Concent 33, Red Cell Distribution Width 18.2H, Platelet Count 208, Mean Platelet Volume 9.7, Activated Partial Thromboplast Time 93H 03/30/18 02:30: Activated Partial Thromboplast Time 52H 03/30/18 06:06: White Blood Count 6.6, Red Blood Count 3.57L, Hemoglobin 10.1L, Hematocrit 32L, Mean Corpuscular Volume 90, Mean Corpuscular Hemoglobin 28, Mean Corpuscular Hemoglobin Concent 32, Red Cell Distribution Width 18.6H, Platelet Count 231, Mean Platelet Volume 9.9, Neutrophils (%) (Auto) 89H, Lymphocytes (%) (Auto) 7L , Monocytes (%) (Auto) 3, Eosinophils (%) (Auto) 2, Basophils (%) (Auto) 0, Neutrophils # (Auto) 5.9, Lymphocytes # (Auto) 0.5L, Monocytes # (Auto) 0.2, Eosinophils # (Auto) 0.1, Basophils # (Auto) 0.0, Sodium Level 139, Potassium Level 3.7, Chloride Level 105, Carbon Dioxide Level 26, Anion Gap 8, Blood Urea Nitrogen 22H, Creatinine 1.23, Estimat Glomerular Filtration Rate 57, BUN/ Creatinine Ratio 18, Glucose Level 96, Calcium Level 8.3L 03/30/18 16:50: Activated Partial Thromboplast Time 74H 03/30/18 17:56: A/P-Cardiology Assessment/Admission Diagnosis Bladder cancer, squamous cell lung cancer, Hematuria, Anemia, Right upper extremity DVT, Possible right PE, Respiratory failure, CAD/CABG, Paroxysmal atrial fibrillation Plan Bladder cancer, squamous cell lung cancer, deferred to Dr. Borja. Hematuria, and mild hematuria. Anemia, Right upper extremity DVT, on heparin. Possible right PE, and heparin. Respiratory failure, improved. status post bronchoscopy by Dr. Cruz. Numerous mucous plugs were removed. CAD/CABG, no antiplatelet therapy due to anemia and bleeding. Paroxysmal atrial fibrillation, regular pulse. Likely sinus rhythm. On Channel Anusha. No Oral Anticoagulation Due To Significant Hematuria Previously and Anemia. Oral Anticoagulation with Eliquis or Xarelto Is Recommended for DVT/PE/ Paroxysmal Atrial Fibrillation; However Starting Oral Anticoagulation, the Risk of Bleeding Needs to Be Considered. For Now Continue Heparin. Thank you for your consultation. Please call me if you have any questions. Liban Brandon MD, FACP, FACC, FSCAI, FHRS, CCDS Interventional Cardiology Cardiac Electrophysiology Vascular Medicine and Endovascular Interventions Clinical Quality Measures DVT/VTE Risk/Contraindication: Risk Factor Score Per Nursin RFS Level Per Nursing on Admit: 4+=Very High Charles BRANDON MD Mar 30, 2018 17:58
[2018-03-30] MEDS ORDERED: DOCUSATE SODIUM 100 MG (COLACE) CAP PO NR (19:30)
[2018-03-30] MEDS: MELATONIN 3 MG TABLET PO SCH (20:39)
[2018-03-30 20:51] VITALS: BP 108/74
[2018-03-30] MEDS: HEParin DRIP 25000 UNIT/500ML 500 ML IV SCH (21:53)
[2018-03-30] MEDS: HEParin 1000 UNIT/ML (10ML VIAL) FOR BOLUS IV SCH (23:52)
[2018-03-31] VITALS: BP 133/71
[2018-03-31] MEDS: RT-ALBUTEROL/IPRATROPIUM 3 ML (DUONEB) VIAL INH SCH ×6 (02:42→22:51)
[2018-03-31 04:00] VITALS: BP 130/66
[2018-03-31 04:52] LABS: BASOPHILS % (AUTO) 0 % (0-10); EOSINOPHILS % (AUTO) 1 % (0-10); HEMATOCRIT 28 % (40-54); LYMPHOCYTES # (AUTO) 0.5 X 10^3 (1.0-4.0); LYMPHOCYTES % (AUTO) 6 % (12-44); MEAN CORPUSCULAR HEMOGLOBIN 29 PG (25-34); MEAN CORPUSCULAR HGB CONC 33 G/DL (32-36); MEAN CORPUSCULAR VOLUME 90 FL (80-99); MEAN PLATELET VOLUME 9.8 FL (7.4-10.4); MONOCYTES # (AUTO) 0.2 X 10^3 (0.0-1.0); MONOCYTES % (AUTO) 2 % (0-12); NEUTROPHILS # (AUTO) 7.2 X 10^3 (1.8-7.8); NEUTROPHILS % (AUTO) 92 % (42-75); PLATELET COUNT 222 10^3/uL (130-400); RED BLOOD COUNT 3.08 10^6/uL (4.35-5.85); RED CELL DISTRIBUTION WIDTH 18.8 % (10.0-14.5); WHITE BLOOD COUNT 7.8 10^3/uL (4.3-11.0)
[2018-03-31 05:13] LABS: ALANINE AMINOTRANSFERASE 12 U/L (0-55); ALBUMIN 2.1 GM/DL (3.2-4.5); ALKALINE PHOSPHATASE 136 U/L (40-136); BILIRUBIN,TOTAL 0.9 MG/DL (0.1-1.0); BUN/CREATININE RATIO 20; CALCIUM 7.8 MG/DL (8.5-10.1); CARBON DIOXIDE 21 MMOL/L (21-32); CHLORIDE 108 MMOL/L (98-107); CREATININE SERUM 1.12 MG/DL (0.60-1.30); GFR ESTIMATED > 60; GLUCOSE 115 MG/DL (70-105); POTASSIUM 3.4 MMOL/L (3.6-5.0); SODIUM 140 MMOL/L (135-145); TOTAL PROTEIN 5.6 GM/DL (6.4-8.2)
[2018-03-31] MEDS: CATHETER FLUSH 10 ML SYR IV SCH ×3 (05:23→20:57)
[2018-03-31] MEDS: MEROPENEM 500 MG in NS (IVPB) 100 ML IV SCH ×4 (05:23→23:33)
[2018-03-31] MEDS: HYDROcodone/APAP 5 MG/325 MG (LORTAB) TAB PO SCH ×4 (05:23→23:33)
--- NOTE | 2018-03-31 06:08 | Pulmonary Progress Note ---
Sepsis Event Evaluation Height, Weight, BMI Height: 5'9.00" Weight: 151lbs. 8.0oz. [id number]; 22.4 BMI Method:Stated Exam Exam Vital Signs Date Time Temp Pulse Resp B/P (MAP) Pulse Ox O2 Delivery O2 Flow Rate FiO2 03/31/18 04:00 98.0 100 20 130/66 (87) 91 Nasal Cannula 4.50 03/31/18 02:42 90 Nasal Cannula 3.50 03/31/18 00:00 98.4 94 19 133/71 (91) 90 Nasal Cannula 4.50 03/30/18 21:47 91 Nasal Cannula 3.50 03/30/18 21:00 Nasal Cannula 4.00 03/30/18 20:51 98.2 102 22 108/74 (85) 95 Nasal Cannula 4.50 03/30/18 18:40 95 Nasal Cannula 4.50 03/30/18 15:12 100.8 98 20 03/30/18 14:58 93 Nasal Cannula 4.50 03/30/18 12:00 100.6 98 22 144/71 (95) 92 Nasal Cannula 4.00 03/30/18 10:00 92 Nasal Cannula 4.00 03/30/18 08:00 98.9 124 22 153/77 (102) 90 Nasal Cannula 4.00 03/30/18 07:50 16 03/30/18 07:03 91 Nasal Cannula 2.50 I & O 03/31/18 07:00 Intake Total 885 ml Output Total 300 ml Balance 585 ml Height & Weight Height: 5'9.00" Weight: 151lbs. 8.0oz. 68.148744kn; 22.4 BMI Method:Stated General Appearance: Anxious, Mild Distress HEENT: PERRL/EOMI, Normal ENT Inspection, Pharynx Normal Neck: Full Range of Motion, Non Tender, Supple Respiratory: Chest Non Tender, Accessory Muscle Use, Crackles, Decreased Breath Sounds Cardiovascular: Regular Rate, Rhythm, No Edema, No Gallop Capillary Refill: Less Than 3 Seconds Gastrointestinal: normal bowel sounds, non tender, soft Extremity: Normal Capillary Refill, Normal Inspection Neurologic/Psychiatric: Alert, Oriented x3 Skin: Normal Color, Warm/Dry Results Lab Laboratory Tests 03/29/18 20:05 03/30/18 06:06 03/31/18 04:37 Assessment/Plan Assessment/Plan Diffuse bilateral infiltrates pneumonia vs lymphangitic spread -s/p bronchoscopy -Start vancomycin, and Merrem (pt is allergic to Amoxil) SOB with hypoxia -Oxygen Mucous plugging -Start SVNs with duoneb and Mucomyst Atelectasis Acute PE and RUE DVT from PICC line -Heparin gtt 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 Lawson is following GODFREY WILL DO Mar 31, 2018 06:08
[2018-03-31] MEDS: aCETylcysteine 20% (MUCOMYST) 30ML SOLN VIAL INH SCH ×3 (06:58→22:51)
[2018-03-31 08:00] VITALS: BP 146/70
[2018-03-31] MEDS: MAGNESIUM OXIDE (MAG-OX)400 MG TAB PO SCH ×2 (08:04→20:57)
[2018-03-31] MEDS: LACTOBACILLUS ACIDOPHILUS (PROBIOTIC) CAPSULE PO SCH (08:04)
[2018-03-31] MEDS: DILTIAZEM 120 MG (CARDIZEM CD) CAP PO SCH (08:04)
[2018-03-31] MEDS: VITAMIN D3 400 UNITS (CHOLECALCIFEROL) TABLET PO SCH (08:04)
[2018-03-31] MEDS: PANTOPRAZOLE 40 MG (PROTONIX) VIAL IV SCH (08:04)
--- NOTE | 2018-03-31 08:59 | Physical Therapy Daily Note ---
PT Daily Note-Current Subjective Patient agrees to PT. Pain Numeric Pain Scale: 0-No Pain Location: No Pain Reported Mental Status Patient Orientation: Person, Time, Situation Attachments: Oxygen, IV Transfers Functional [place] Measure 0=Not Assessed/NA 4=Minimal Assistance 1=Total Assistance 5=Supervision or Setup 2=Maximal Assistance 6=Modified [place] 3=Moderate Assistance 7=Complete IndependenceIRFPAI Quality Coding Scale 6 Independent with activity with or without an assistive device 5 Patient requires set up or clean up by helper. Patient completes activity by themselves 4 Supervision or touching assist (CGA). [place] provide cues , steadying assist 3 The helper provides less than half the effort to complete the activity 2 The helper provides more than half the effort to complete the activity 1 Dependent. The helper does all the effort to complete an activity 7 Patient refused to complete or attempt activity 9 The patient did not perform the activity before the current illness or injury 88 Not attempted due to Medical conditions or safety concerns Transfers (B, C, W/C) (FIM): 5 Scootin Rollin Supine to/from Sit: 5 Sit to/from Stand: 5 Weight Bearing Right Lower Extremity: Right Weight Bearing/Tolerated Left Lower Extremity: Left Weight Bearing/Tolerated Gait Training Gait (FIM): 1 Distance (FIM): 1=up to 49 ft Distance: 10' Gait Level of Assist: 4 Gait Persons Needed: 1 Gait Assistive Device: FWW functional gait sequence. Appears to self limit Assessment Patient returned to bed with needs met. Patient tolerates minimal activity. PT Short Term Goals Short Term Goals Time Frame: Apr 06, 2018 Transfers (B,C,W/C) (FIM): 6 Gait (FIM): 2 Gait Distance Comment: 50' Gait Level of Assist: 6 Gait Assistive Device: FWW PT Plan Treatment/Plan Treatment Plan: Continue Plan of Care Treatment Plan: Bed Mobility, Education, Functional Activity Sadia, Functional Strength, Gait, Safety, Therapeutic Exercise, Transfers Treatment Duration: Apr 06, 2018 Frequency: 6 times per week Estimated Hrs Per Day: .25 hour per day (15-30') Patient and/or Family Agrees t: Yes Time/GCodes Time In: 830 Time Out: 840 Total Billed Treatment Time: 10 Total Billed Treatment 1 visit FA 10 min JAYA GUERRERO PT Mar 31, 2018 08:59
--- NOTE | 2018-03-31 10:36 | Progress Note-Hospitalist ---
Subjective HPI/CC On Admission Date Seen by Provider: Mar 31, 2018 Time Seen by Provider: 10:45 Subjective/Events-last exam Conferred with Dr Lawson Monitoring for hematuria since on Heparin drip Reviewed consultation noted and labs and meds No pain is reported Getting OOB to go to bathroom only BM+ Review of Systems General: Fatigue Objective Exam Vital Signs Vital Signs Date Time Temp Pulse Resp B/P (MAP) Pulse Ox O2 Delivery O2 Flow Rate FiO2 03/31/18 14:35 88 Nasal Cannula 6.00 03/31/18 12:00 98.4 111 20 142/75 (97) Capillary Refill : Less Than 3 Seconds General Appearance: No Apparent Distress, WD/WN, Chronically ill Respiratory: No Accessory Muscle Use, No Respiratory Distress, Crackles, Decreased Breath Sounds Cardiovascular: No Gallop, No JVD, No Murmur, Normal Peripheral Pulses, Irregularly Irregular Extremity: Pedal Edema, Other (right arm edema) Neurologic/Psychiatric: Alert, Oriented x3, No Motor/Sensory Deficits, Normal Mood/Affect Results/Procedures Lab Laboratory Tests 03/31/18 04:37 Patient resulted labs reviewed. Assessment/Plan Assessment and Plan Assess & Plan/Chief Complaint Per PCP: PULMONARY EMBOLISM RIGHT UPPER EXTREMITY DEEP VEIN THROMBOSIS PNEUMONIA ANEMIA BLADDER CANCER HYPERTENSION ATRIAL FIBRILLATION Plan: Heparin drip Pain control if occurs Prognosis guarde Diagnosis/Problems Diagnosis/Problems (1) Pneumonia Status: Acute Qualifiers: Pneumonia type: due to unspecified organism Laterality: right Lung location: lower lobe of lung Qualified Codes: J18.1 - Lobar pneumonia, unspecified organism (2) Deep venous thrombosis of right upper extremity Status: Acute Qualifiers: Affected thrombotic vein of extremity: unspecified vein of extremity Chronicity: acute Qualified Codes: I82.621 - Acute embolism and thrombosis of deep veins of right upper extremity (3) Anemia Status: Chronic Qualifiers: Anemia type: unspecified type Qualified Codes: D64.9 - Anemia, unspecified (4) Pulmonary embolism Status: Acute Qualifiers: Pulmonary embolism type: other Chronicity: acute Acute cor pulmonale presence: without acute cor pulmonale Qualified Codes: I26.99 - Other pulmonary embolism without acute cor pulmonale (5) Lung cancer Status: Chronic Qualifiers: Lung location: unspecified part of lung (6) Bladder cancer Status: Chronic Qualifiers: Bladder location: unspecified site Qualified Codes: C67.9 - Malignant neoplasm of bladder, unspecified (7) Poor prognosis Status: Chronic (8) DNR (do not resuscitate) Status: Chronic (9) Hypertension Status: Chronic Qualifiers: Hypertension type: essential hypertension Qualified Codes: I10 - Essential (primary) hypertension Clinical Quality Measures DVT/VTE Risk/Contraindication: Risk Factor Score Per Nursin RFS Level Per Nursing on Admit: 4+=Very High MARIO BLACK DO Mar 31, 2018 10:36
[2018-03-31] MEDS: NS IV 1000 ML 1,000 ML IV SCH (10:52)
[2018-03-31] MEDS: VANCOMYCIN 1 GM/NS 250 ML IVPB IV SCH ×2 (10:55)
--- NOTE | 2018-03-31 11:21 | Progress Note-Standard ---
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 The patient completed 6 weeks of radiation therapy with weekly chemotherapy. Treatment held because of the significant hematuria. Patient is gradually recovering from the side effects. Admitted with the right upper extremity swelling and evidence of DVT as well as the right lower lobe PE. CT angiogram with the bilateral infiltrates/atelectasis. Dr. Cruz did a bronchoscopy with washings bilaterally. Patient had evidence of significant mucus plugging which was washed out. He is on broad-spectrum antibiotics with meropenem and vancomycin. Preliminary cultures showing abundant Gram positive cocci but ID pending. He is continuing on heparin with no significant bleeding. Labs monitored today with hemoglobin 9.0 and improvement of renal function. Continue IV fluids but decrease rate to 50 ml/ hr. Patient is clinically stable. Intermittent hypoxia, d/w RT. Will try mask as patient is mouth breather. Recheck lab work and CXR tomorrow morning. Appreciate Dr. Brandon's help. LAVERNE SUNSHINE Mar 31, 2018 11:21
[2018-03-31] MEDS: NYSTATIN ORAL SUSP 5 ML UDC PO SCH ×3 (11:53→23:33)
[2018-03-31 12:00] VITALS: BP 142/75
--- NOTE | 2018-03-31 16:01 | Cardiology Progress Note ---
Cardiology SOAP Progress Note Subjective: Feeling unwell but no chest pain or significant shortness of breath. Objective: I&O/Vital Signs 03/31/18 03/31/18 03/31/18 03/31/18 06:58 08:00 08:00 10:33 Temp 96.9 Pulse 105 Resp 20 B/P (MAP) 146/70 (95) Pulse Ox 88 88 89 87 O2 Delivery Nasal Cannula Nasal Cannula Nasal Cannula Nasal Cannula O2 Flow Rate 3.00 3.00 4.50 4.00 03/31/18 03/31/18 12:00 14:35 Temp 98.4 Pulse 111 Resp 20 B/P (MAP) 142/75 (97) Pulse Ox 87 88 O2 Delivery Nasal Cannula Nasal Cannula O2 Flow Rate 6.00 6.00 03/31/18 00:00 Intake Total 885 ml Output Total 300 ml Balance 585 ml Weight (Pounds): 151 Weight (Ounces): 8.0 Weight (Calculated Kilograms): 68.389668 Constitutional: appears stated age, AAO x 3; No apparent distress; well- developed, well-nourished Respiratory: chest is bilaterally symmetric, lungs clear to auscultation Cardiovascular: regular rate-rhythm, S1 and S2, systolic murmur Gastrointestional: No tender, No soft, No round, No distended, No pulsatile mass, No organomegaly, No guarding, No rebound, No tenderness, No hernia, No mass, No audible bowel sounds, No abnormal bowel sounds, No abdominal bruits, No spleenomegaly, No other Extremities: No normal range of motion, No non-tender, No normal inspection, No pedal edema, No calf tenderness, No normal capillary refill, No pelvis stable , No calf tenderness, No inflammation, No pedal edema, No slow capillary refill , No swelling, No other, No abrasion, No clubbing, No cyanosis, No ecchymosis, No laceration, No no lower extremity edema bilateral, No significant edema, No tenderness, No wound Neurologic/Psychiatric: no motor/sensory deficits, alert, normal mood/affect, oriented x 3, power is 5/5 both on sides Skin: No normal color, No warm/dry, No cyanosis, No cool, No diaphoresis, No damp, No ecchymosis, No jaundice, No mottled, No pallor, No rash, No tattoos/ piercings, No ulcerations, No rash on exposed areas, No ulcerations on exposed areas, No other Results/Procedures: Labs Laboratory Tests 03/30/18 16:50: Activated Partial Thromboplast Time 74H 03/30/18 17:56: Stool Occult Blood Immunoassay POSITIVEH 03/30/18 23:00: Activated Partial Thromboplast Time 62H 03/31/18 04:37: Activated Partial Thromboplast Time 124*H, White Blood Count 7.8, Red Blood Count 3.08L, Hemoglobin 9.0L, Hematocrit 28L, Mean Corpuscular Volume 90, Mean Corpuscular Hemoglobin 29, Mean Corpuscular Hemoglobin Concent 33, Red Cell Distribution Width 18.8H, Platelet Count 222, Mean Platelet Volume 9.8, Neutrophils (%) (Auto) 92H, Lymphocytes (%) (Auto) 6L, Monocytes (%) (Auto) 2, Eosinophils (%) (Auto) 1, Basophils (%) (Auto) 0, Neutrophils # (Auto) 7.2, Lymphocytes # (Auto) 0.5L, Monocytes # (Auto) 0.2, Eosinophils # (Auto) 0.0, Basophils # (Auto) 0.0, Sodium Level 140, Potassium Level 3.4L, Chloride Level 108H, Carbon Dioxide Level 21, Anion Gap 11, Blood Urea Nitrogen 22H, Creatinine 1.12, Estimat Glomerular Filtration Rate > 60, BUN/Creatinine Ratio 20, Glucose Level 115H, Calcium Level 7.8L, Corrected Calcium 9.3, Total Bilirubin 0.9, Aspartate Amino Transf (AST/SGOT) 27, Alanine Aminotransferase ( ALT/SGPT) 12, Alkaline Phosphatase 136, Total Protein 5.6L, Albumin 2.1L 03/31/18 11:30: Activated Partial Thromboplast Time > 200*H 03/31/18 13:10: Stool Occult Blood Immunoassay POSITIVEH Microbiology 03/30/18 Gram Stain - Final, Resulted 03/30/18 Bronchial Culture - Preliminary, Resulted Culture In Progress 03/30/18 Fungal Culture 1, Resulted Pending A/P: Assessment/Dx: Bladder cancer, squamous cell lung cancer, Hematuria, Anemia, Right upper extremity DVT, Possible right PE, Respiratory failure, CAD/CABG, Paroxysmal atrial fibrillation Plan: Bladder cancer, squamous cell lung cancer, deferred to Dr. Borja. Hematuria, and mild hematuria. Anemia, Right upper extremity DVT, on heparin. Possible right PE, and heparin. Respiratory failure, improved. status post bronchoscopy by Dr. Cruz. Numerous mucous plugs were removed. CAD/CABG, no antiplatelet therapy due to anemia and bleeding. Paroxysmal atrial fibrillation, regular pulse. Likely sinus rhythm. On Channel Anush[place]. No Oral Anticoagulation Due To Significant Hematuria Previously and Anemia. Oral Anticoagulation with Eliquis or Xarelto Is Recommended for DVT/PE/ Paroxysmal Atrial Fibrillation; However Starting Oral Anticoagulation, the Risk of Bleeding Needs to Be Considered. For Now Continue Heparin. Thank you for your consultation. Please call me if you have any questions. Liban Brandon MD, FACP, FACC, FSCAI, FHRS, CCDS Interventional Cardiology Cardiac Electrophysiology Vascular Medicine and Endovascular Interventions Charles BRANDON MD Mar 31, 2018 4:01 pm
[2018-03-31 16:15] VITALS: BP 153/77
[2018-03-31] MEDS: HEParin DRIP 25000 UNIT/500ML 500 ML IV SCH (17:54)
[2018-03-31 20:00] VITALS: BP 133/66
[2018-03-31] MEDS: HEParin 1000 UNIT/ML (10ML VIAL) FOR BOLUS IV SCH (20:53)
[2018-03-31] MEDS: MELATONIN 3 MG TABLET PO SCH (20:57)
[2018-04-01 00:05] VITALS: BP 155/88
[2018-04-01] MEDS: ACETAMINOPHEN 325 MG TABLET PO PRN (02:14)
[2018-04-01 03:34] LABS: HEMOGLOBIN 9.2 G/DL (13.3-17.7); MEAN PLATELET VOLUME 9.7 FL (7.4-10.4); RED BLOOD COUNT 3.15 10^6/uL (4.35-5.85); RED CELL DISTRIBUTION WIDTH 19.2 % (10.0-14.5); WHITE BLOOD COUNT 9.7 10^3/uL (4.3-11.0)
[2018-04-01] MEDS: RT-ALBUTEROL/IPRATROPIUM 3 ML (DUONEB) VIAL INH SCH ×6 (03:47→22:13)
[2018-04-01 03:51] LABS: BUN/CREATININE RATIO 19; CARBON DIOXIDE 21 MMOL/L (21-32); CHLORIDE 108 MMOL/L (98-107); CREATININE SERUM 0.94 MG/DL (0.60-1.30); GFR ESTIMATED > 60; GLUCOSE 109 MG/DL (70-105); INR 1.5 (0.8-1.4); POTASSIUM 3.6 MMOL/L (3.6-5.0); PROTHROMBIN TIME PATIENT 17.7 SEC (12.2-14.7); SODIUM 140 MMOL/L (135-145)
[2018-04-01 04:10] VITALS: BP 147/80
[2018-04-01] MEDS: HEParin 1000 UNIT/ML (10ML VIAL) FOR BOLUS IV SCH (05:02)
[2018-04-01] MEDS: HYDROcodone/APAP 5 MG/325 MG (LORTAB) TAB PO SCH ×4 (05:05→23:16)
[2018-04-01] MEDS: NYSTATIN ORAL SUSP 5 ML UDC PO SCH ×3 (06:21→17:37)
[2018-04-01] MEDS: MEROPENEM 500 MG in NS (IVPB) 100 ML IV SCH ×3 (06:21→17:37)
[2018-04-01] MEDS: CATHETER FLUSH 10 ML SYR IV SCH ×3 (06:22→21:03)
[2018-04-01] MEDS: aCETylcysteine 20% (MUCOMYST) 30ML SOLN VIAL INH SCH ×3 (07:22→22:13)
[2018-04-01 08:00] VITALS: BP 127/71
[2018-04-01] MEDS: PANTOPRAZOLE 40 MG (PROTONIX) VIAL IV SCH (08:33)
[2018-04-01] MEDS: DILTIAZEM 120 MG (CARDIZEM CD) CAP PO SCH (08:33)
[2018-04-01] MEDS: VITAMIN D3 400 UNITS (CHOLECALCIFEROL) TABLET PO SCH (08:33)
[2018-04-01] MEDS: LACTOBACILLUS ACIDOPHILUS (PROBIOTIC) CAPSULE PO SCH (08:33)
[2018-04-01] MEDS: MAGNESIUM OXIDE (MAG-OX)400 MG TAB PO SCH ×2 (08:33→21:01)
[2018-04-01] MEDS: NS IV 1000 ML 1,000 ML IV SCH (08:40)
--- NOTE | 2018-04-01 08:42 | Diagnostic Imaging Report ---
INDICATION: Pneumonia. Comparison made with prior examination 03/30/2018. FINDINGS: There is cardiomegaly. There is diffuse bilateral airspace disease. There has been previous median sternotomy and coronary artery bypass graft. There is no pleural effusion or pneumothorax. Mediastinum is unremarkable. IMPRESSION: Diffuse bilateral airspace disease. Some underlying central pulmonary venous congestion cannot be excluded. Cardiomegaly. Dictated by: Dictated on workstation # [id number]
[2018-04-01] MEDS: VANCOMYCIN 1 GM/NS 250 ML IVPB IV SCH ×2 (11:25)
--- NOTE | 2018-04-01 11:32 | Progress Note-Standard ---
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 The patient completed 6 weeks of radiation therapy with weekly chemotherapy. Treatment held because of the significant hematuria. Patient is gradually recovering from the side effects. Admitted with the right upper extremity swelling and evidence of DVT as well as the right lower lobe PE. CT angiogram with bilateral infiltrates/atelectasis. Dr. Cruz did a bronchoscopy with washings bilaterally. Patient had evidence of significant mucus plugging which was washed out. He is on broad-spectrum antibiotics with meropenem and vancomycin. Preliminary cultures showing abundant Gram positive cocci and fungal elements. He is continuing on heparin with no significant bleeding. Labs monitored today with hemoglobin stable and normal renal function. Significant SOB last night and hypoxia. Patient agitated this AM. Oxygen saturation in 70's. Started on vapotherm with sats in the mid 90s. Will start on Diflucan IV daily. Also add solumedrol 62.5 mg IV every 6 hours because of respiratory distress. Improve nutrition with supplements. Continue DNR. If necessary will add morphine 2 mg IV as needed for respiratory distress. LAVERNE SUNSHINE Apr 01, 2018 11:32
--- NOTE | 2018-04-01 11:48 | Progress Note-Hospitalist ---
Subjective HPI/CC On Admission Date Seen by Provider: Apr 01, 2018 Time Seen by Provider: 11:00 Subjective/Events-last exam Patient having more respiratory issues O2 sat was 79 percent so he was placed on 15 L then placed on Vapotherm IV steroids will be given and maintained on Vapotherm Antifungal will be started due to suspected fungal bronchitis Overall poor prognosis Review of Systems Pulmonary: Dyspnea Objective Exam Vital Signs Vital Signs Date Time Temp Pulse Resp B/P (MAP) Pulse Ox O2 Delivery O2 Flow Rate FiO2 04/01/18 11:09 Vapotherm 27.00 100 04/01/18 08:00 96.9 125 24 127/71 (89) 90 Capillary Refill : Less Than 3 Seconds General Appearance: WD/WN, Chronically ill, Moderate Distress (Due to tachypnea ) Respiratory: Accessory Muscle Use, Crackles, Decreased Breath Sounds, Rales, Respiratory Distress, Wheezing Cardiovascular: Regular Rate, Rhythm, No Edema, No Gallop, No JVD, No Murmur, Normal Peripheral Pulses Neurologic/Psychiatric: Alert, Oriented x3, No Motor/Sensory Deficits, Normal Mood/Affect Results/Procedures Lab Laboratory Tests 04/01/18 03:20 Patient resulted labs reviewed. Assessment/Plan Assessment and Plan Assess & Plan/Chief Complaint Per PCP: PULMONARY EMBOLISM RIGHT UPPER EXTREMITY DEEP VEIN THROMBOSIS PNEUMONIA ANEMIA BLADDER CANCER HYPERTENSION ATRIAL FIBRILLATION Acute respiratory failure requiring Vapotherm Presumed fungal bronchitis Plan: Heparin drip Pain control if occurs Prognosis guarded Vapotherm Fungal coverage Diagnosis/Problems Diagnosis/Problems (1) Respiratory insufficiency Status: Acute (2) Pneumonia Status: Acute Qualifiers: Pneumonia type: due to unspecified organism Laterality: right Lung location: lower lobe of lung Qualified Codes: J18.1 - Lobar pneumonia, unspecified organism (3) Deep venous thrombosis of right upper extremity Status: Acute Qualifiers: Affected thrombotic vein of extremity: unspecified vein of extremity Chronicity: acute Qualified Codes: I82.621 - Acute embolism and thrombosis of deep veins of right upper extremity (4) Anemia Status: Chronic Qualifiers: Anemia type: unspecified type Qualified Codes: D64.9 - Anemia, unspecified (5) Pulmonary embolism Status: Acute Qualifiers: Pulmonary embolism type: other Chronicity: acute Acute cor pulmonale presence: without acute cor pulmonale Qualified Codes: I26.99 - Other pulmonary embolism without acute cor pulmonale (6) Lung cancer Status: Chronic Qualifiers: Lung location: unspecified part of lung (7) Bladder cancer Status: Chronic Qualifiers: Bladder location: unspecified site Qualified Codes: C67.9 - Malignant neoplasm of bladder, unspecified (8) Poor prognosis Status: Chronic (9) DNR (do not resuscitate) Status: Chronic (10) Hypertension Status: Chronic Qualifiers: Hypertension type: essential hypertension Qualified Codes: I10 - Essential (primary) hypertension Clinical Quality Measures DVT/VTE Risk/Contraindication: Risk Factor Score Per Nursin RFS Level Per Nursing on Admit: 4+=Very High MARIO BLACK DO Apr 01, 2018 11:48
[2018-04-01 12:00] VITALS: BP 141/87
--- NOTE | 2018-04-01 12:12 | Physical Therapy Progress Note ---
Therapy Progress Note 0841am attempted visit, pt refused PT at this time, feeling very exhausted. Per nsg, pt just got settled and is now on vapotherm. Pt states he may be able to try therapy later today. 1200pm attempted visit, pt again refused PT, family present in room. Pt states he is still having too hard of a time breathing and does not feel he can handle anymore movement at this time. Pt is still on vapotherm.Will attempt visit again tomorrow SHERIE ARANDA [employer] [employer] Apr 01, 2018 12:12
[2018-04-01] MEDS: methylPREDNISolone 125 MG (Solu-MEDROL) VIAL IVP SCH ×2 (12:13→17:37)
[2018-04-01] MEDS: FLUCONAZOLE 200 MG/100 ML 50 ML, EMPTY IV BAG (PVC) 1 EA IV SCH ×2 (13:29)
--- NOTE | 2018-04-01 14:45 | Cardiology Progress Note ---
Cardiology SOAP Progress Note Subjective: Significant shortness of breath overnight. On Vapotherm when I saw the patient. In respiratory distress. Objective: I&O/Vital Signs 04/01/18 04/01/18 04/01/18 04/01/18 04:10 07:29 07:46 08:00 Temp 98.6 96.9 Pulse 125 125 Resp 22 24 B/P (MAP) 147/80 (102) 127/71 (89) Pulse Ox 89 65 89 90 O2 Delivery Nasal Cannula High Flow N/C Nasal Cannula O2 Flow Rate 7.00 15.00 6.00 04/01/18 04/01/18 04/01/18 11:09 12:00 14:53 Temp 97.5 Pulse 125 Resp 24 B/P (MAP) 141/87 (105) Pulse Ox 93 95 O2 Delivery Vapotherm Nasal Cannula Vapotherm O2 Flow Rate 27.00 27.00 FiO2 100 100 04/01/18 00:00 Intake Total 1160 ml Output Total 450 ml Balance 710 ml Weight (Pounds): 151 Weight (Ounces): 8.0 Weight (Calculated Kilograms): 68.734980 Constitutional: appears stated age, AAO x 3, apparent distress, well-developed , well-nourished Respiratory: accessory muscle use, respiratory distress, chest is bilaterally symmetric, other (Poor air entry bilaterally.) Cardiovascular: regular rate-rhythm, S1 and S2, systolic murmur Gastrointestional: No tender, No soft, No round, No distended, No pulsatile mass, No organomegaly, No guarding, No rebound, No tenderness, No hernia, No mass, No audible bowel sounds, No abnormal bowel sounds, No abdominal bruits, No spleenomegaly, No other Extremities: No normal range of motion, No non-tender, No normal inspection, No pedal edema, No calf tenderness, No normal capillary refill, No pelvis stable , No calf tenderness, No inflammation, No pedal edema, No slow capillary refill , No swelling, No other, No abrasion, No clubbing, No cyanosis, No ecchymosis, No laceration, No no lower extremity edema bilateral, No significant edema, No tenderness, No wound Neurologic/Psychiatric: no motor/sensory deficits, alert, normal mood/affect, oriented x 3, power is 5/5 both on sides Skin: No normal color, No warm/dry, No cyanosis, No cool, No diaphoresis, No damp, No ecchymosis, No jaundice, No mottled, No pallor, No rash, No tattoos/ piercings, No ulcerations, No rash on exposed areas, No ulcerations on exposed areas, No other Results/Procedures: Labs Laboratory Tests 03/31/18 20:05: Activated Partial Thromboplast Time 67H 04/01/18 03:20: Activated Partial Thromboplast Time 61H, White Blood Count 9.7, Red Blood Count 3.15L, Hemoglobin 9.2L, Hematocrit 28L, Mean Corpuscular Volume 90, Mean Corpuscular Hemoglobin 29, Mean Corpuscular Hemoglobin Concent 33, Red Cell Distribution Width 19.2H, Platelet Count 258, Mean Platelet Volume 9.7, Prothrombin Time 17.7H, INR Comment 1.5H, Sodium Level 140, Potassium Level 3.6 , Chloride Level 108H, Carbon Dioxide Level 21, Anion Gap 11, Blood Urea Nitrogen 18, Creatinine 0.94, Estimat Glomerular Filtration Rate > 60, BUN/ Creatinine Ratio 19, Glucose Level 109H, Calcium Level 8.0L 04/01/18 11:07: Activated Partial Thromboplast Time 142*H Microbiology 03/30/18 Mycobacterial Culture - Preliminary, Resulted A/P: Assessment/Dx: Bladder cancer, squamous cell lung cancer, Hematuria, Anemia, Right upper extremity DVT, Possible right PE, Worsening Respiratory failure, CAD/CABG, Paroxysmal atrial fibrillation Plan: Bladder cancer, squamous cell lung cancer, deferred to Dr. Borja. Hematuria, and mild hematuria. Anemia, Right upper extremity DVT, on heparin. Possible right PE, and heparin. Respiratory failure, improved initially; however and respiratory distress overnight. Sepsis due to lung source; likely fungal involvement as well. status post bronchoscopy by Dr. Cruz. Numerous mucous plugs were removed. CAD/CABG, no antiplatelet therapy due to anemia and bleeding. Paroxysmal atrial fibrillation, regular pulse. Likely sinus rhythm. On Channel Anusha. No Oral Anticoagulation Due To Significant Hematuria Previously and Anemia. Oral Anticoagulation with Eliquis or Xarelto Is Recommended for DVT/PE/ Paroxysmal Atrial Fibrillation; However Starting Oral Anticoagulation, the Risk of Bleeding Needs to Be Considered. For Now Continue Heparin. Poor prognosis. Thank you for your consultation. Please call me if you have any questions. Liban Brandon MD, FACP, FACC, FSCAI, FHRS, CCDS Interventional Cardiology Cardiac Electrophysiology Vascular Medicine and Endovascular Interventions Charles BRANDON MD Apr 01, 2018 2:45 pm
[2018-04-01] MEDS: HEParin DRIP 25000 UNIT/500ML 500 ML IV SCH (15:02)
[2018-04-01 16:00] VITALS: BP 137/72
[2018-04-01] MEDS: morphine INJ 4 MG/ML 1 ML (VIAL/SYRINGE) IVP PRN ×2 (16:35→23:23)
[2018-04-01 19:22] VITALS: BP 152/78
[2018-04-01] MEDS: MELATONIN 3 MG TABLET PO SCH (21:01)
[2018-04-02] VITALS (7 sets, daily range): BP systolic 123–141; BP diastolic 73–78
[2018-04-02] MEDS: methylPREDNISolone 125 MG (Solu-MEDROL) VIAL IVP SCH ×4 (00:26→18:07)
[2018-04-02] MEDS: NYSTATIN ORAL SUSP 5 ML UDC PO SCH ×4 (00:26→18:08)
[2018-04-02] MEDS: MEROPENEM 500 MG in NS (IVPB) 100 ML IV SCH ×5 (00:27→23:49)
[2018-04-02] MEDS: ALPRAZolam 0.5 MG (XANAX) TAB PO PRN ×2 (02:41→17:32)
[2018-04-02] MEDS: RT-ALBUTEROL/IPRATROPIUM 3 ML (DUONEB) VIAL INH SCH ×6 (02:41→22:27)
[2018-04-02] MEDS: NS IV 1000 ML 1,000 ML IV SCH (04:15)
[2018-04-02] MEDS: HYDROcodone/APAP 5 MG/325 MG (LORTAB) TAB PO SCH ×4 (05:16→23:48)
[2018-04-02] MEDS: PANTOPRAZOLE 40 MG (PROTONIX) TAB PO SCH (06:39)
[2018-04-02] MEDS: CATHETER FLUSH 10 ML SYR IV SCH ×3 (06:40→22:01)
[2018-04-02] MEDS: aCETylcysteine 20% (MUCOMYST) 30ML SOLN VIAL INH SCH ×3 (07:41→22:27)
[2018-04-02 08:17] LABS: BASOPHILS % (AUTO) 0 % (0-10); EOSINOPHILS % (AUTO) 0 % (0-10); HEMATOCRIT 29 % (40-54); HEMOGLOBIN 9.4 G/DL (13.3-17.7); LYMPHOCYTES # (AUTO) 0.2 X 10^3 (1.0-4.0); LYMPHOCYTES % (AUTO) 3 % (12-44); MEAN CORPUSCULAR HEMOGLOBIN 29 PG (25-34); MEAN CORPUSCULAR HGB CONC 32 G/DL (32-36); MEAN CORPUSCULAR VOLUME 89 FL (80-99); MEAN PLATELET VOLUME 10.1 FL (7.4-10.4); MONOCYTES # (AUTO) 0.2 X 10^3 (0.0-1.0); MONOCYTES % (AUTO) 2 % (0-12); NEUTROPHILS # (AUTO) 7.5 X 10^3 (1.8-7.8); NEUTROPHILS % (AUTO) 95 % (42-75); PLATELET COUNT 305 10^3/uL (130-400); RED BLOOD COUNT 3.25 10^6/uL (4.35-5.85); RED CELL DISTRIBUTION WIDTH 19.3 % (10.0-14.5); WHITE BLOOD COUNT 7.9 10^3/uL (4.3-11.0)
[2018-04-02 08:23] LABS: INR 1.4 (0.8-1.4); PROTHROMBIN TIME PATIENT 16.8 SEC (12.2-14.7)
[2018-04-02 08:31] LABS: BUN/CREATININE RATIO 22; CALCIUM 8.5 MG/DL (8.5-10.1); CARBON DIOXIDE 20 MMOL/L (21-32); CHLORIDE 106 MMOL/L (98-107); CREATININE SERUM 0.97 MG/DL (0.60-1.30); GFR ESTIMATED > 60; GLUCOSE 127 MG/DL (70-105); POTASSIUM 3.4 MMOL/L (3.6-5.0); SODIUM 139 MMOL/L (135-145)
[2018-04-02] MEDS ORDERED: TROUGH ORDER-PHARMACY XX NR (09:00)
[2018-04-02 09:06] LABS: BAND NEUTROPHILS 1 %; LYMPHOCYTES % (MANUAL) 2 %; MONOCYTES % (MANUAL) 1 %; NEUTROPHILS % (MANUAL) 96 %; PLATELET CLUMPS OCCASIONAL; RBC MORPH NORMAL
[2018-04-02] MEDS: DILTIAZEM 120 MG (CARDIZEM CD) CAP PO SCH (10:20)
[2018-04-02] MEDS: LACTOBACILLUS ACIDOPHILUS (PROBIOTIC) CAPSULE PO SCH (10:20)
[2018-04-02] MEDS: MAGNESIUM OXIDE (MAG-OX)400 MG TAB PO SCH ×2 (10:20→22:01)
[2018-04-02] MEDS: VITAMIN D3 400 UNITS (CHOLECALCIFEROL) TABLET PO SCH (10:20)
[2018-04-02] MEDS: FLUCONAZOLE 200 MG/100 ML 50 ML, EMPTY IV BAG (PVC) 1 EA IV SCH ×2 (10:32)
[2018-04-02] MEDS: VANCOMYCIN 1 GM/NS 250 ML IVPB IV SCH ×2 (11:00)
--- NOTE | 2018-04-02 11:17 | Progress Note-Standard ---
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 The patient completed 6 weeks of radiation therapy with weekly chemotherapy. Treatment held because of the significant hematuria. Patient is gradually recovering from the side effects. Admitted with the right upper extremity swelling and evidence of DVT as well as the right lower lobe PE. CT angiogram with bilateral infiltrates/atelectasis. Dr. Cruz did a bronchoscopy with washings bilaterally. Patient had evidence of significant mucus plugging which was washed out. He is on broad-spectrum antibiotics with meropenem and vancomycin. Preliminary cultures showing abundant Gram positive cocci identified as Corynebacterium striatum. Current antibiotics has good coverage against this. Fungal cultures negative so far but patient was started on Diflucan and I will continue this for now. He is continuing on heparin with no significant bleeding. Patient had a good night with only 1 episode of anxiety/shortness of breath. He had good results with the morphine 2 mg IV. He slept well and had a good breakfast this morning. Had a good bowel movement also without hematochezia or diarrhea. Overall feeling well and eating more. Lab work noted with stable hemoglobin and platelets. Continue current treatment and repeat lab work and chest x-ray tomorrow. I will decrease IV fluids to 30 mL per hour. LAVERNE SUNSHINE Apr 02, 2018 11:17
[2018-04-02] MEDS: HEParin 1000 UNIT/ML (10ML VIAL) FOR BOLUS IV SCH (11:22)
[2018-04-02] MEDS: morphine INJ 4 MG/ML 1 ML (VIAL/SYRINGE) IVP PRN ×2 (11:23→16:09)
--- NOTE | 2018-04-02 11:27 | Physical Therapy Daily Note ---
PT Daily Note-Current Subjective Pt and nursing agreeable to bed ex only this date. Pt on vapotherm and c/o SOA. Mental Status Patient Orientation: Person, Place, Time, Situation multiple lines, oxygen Transfers Functional [place] Measure 0=Not Assessed/NA 4=Minimal Assistance 1=Total Assistance 5=Supervision or Setup 2=Maximal Assistance 6=Modified [place] 3=Moderate Assistance 7=Complete IndependenceIRFPAI Quality Coding Scale 6 Independent with activity with or without an assistive device 5 Patient requires set up or clean up by helper. Patient completes activity by themselves 4 Supervision or touching assist (CGA). [place] provide cues , steadying assist 3 The helper provides less than half the effort to complete the activity 2 The helper provides more than half the effort to complete the activity 1 Dependent. The helper does all the effort to complete an activity 7 Patient refused to complete or attempt activity 9 The patient did not perform the activity before the current illness or injury 88 Not attempted due to Medical conditions or safety concerns Weight Bearing Right Lower Extremity: Right Weight Bearing/Tolerated Left Lower Extremity: Left Weight Bearing/Tolerated Exercises Supine Ex: Ankle pumps, Quad Set, Heel Slides, Short Arc Quads, Resisted flex/ ext (HS curls) Supine Reps: 15 Treatments Supine LE functional strengthening (B). Brief recovery breaks as needed. In bed with needs met, O2 in situ, nursing in room. Assessment Current Status: Poor Progress Pt tolerated exercises fair-well. OOB activity limited by SOB. PT Short Term Goals Short Term Goals Time Frame: Apr 06, 2018 Transfers (B,C,W/C) (FIM): 6 Gait (FIM): 2 Gait Distance Comment: 50' Gait Level of Assist: 6 Gait Assistive Device: FWW PT Plan Problem List Problem List: Activity Tolerance, Functional Strength, Safety, Balance, Gait, Transfer, Bed Mobility Treatment/Plan Treatment Plan: Continue Plan of Care Treatment Plan: Bed Mobility, Education, Functional Activity Sadia, Functional Strength, Gait, Safety, Therapeutic Exercise, Transfers Treatment Duration: Apr 06, 2018 Frequency: 6 times per week Estimated Hrs Per Day: .25 hour per day (15-30') Patient and/or Family Agrees t: Yes Discharge Recommendations Barriers to Progress SOB Time/GCodes Time In: 1057 Time Out: 1120 Total Billed Treatment Time: 23 Total Billed Treatment 1, EX x 23' G Codes Necessary: LUIS E Briseno DPT Apr 02, 2018 11:27
--- NOTE | 2018-04-02 12:08 | Cardiology Progress Note ---
Cardiology SOAP Progress Note Subjective: Shortness of breath. Objective: I&O/Vital Signs 04/02/18 04/02/18 04/02/18 04/02/18 02:41 04:00 07:41 08:00 Temp 96.6 97.1 Pulse 114 109 Resp 18 20 B/P (MAP) 132/73 (92) 134/74 (94) Pulse Ox 90 87 91 95 O2 Delivery Vapotherm Vapotherm Vapotherm Vapotherm O2 Flow Rate 30.00 30.00 95.00 35.00 FiO2 95 95 04/02/18 00:00 Intake Total 1900 ml Output Total 400 ml Balance 1500 ml Weight (Pounds): 151 Weight (Ounces): 8.0 Weight (Calculated Kilograms): 68.806922 Constitutional: appears stated age, AAO x 3, apparent distress, well-developed , well-nourished Respiratory: accessory muscle use, respiratory distress, chest is bilaterally symmetric, other (Poor air entry bilaterally.) Cardiovascular: regular rate-rhythm, S1 and S2, systolic murmur Gastrointestional: No tender, No soft, No round, No distended, No pulsatile mass, No organomegaly, No guarding, No rebound, No tenderness, No hernia, No mass, No audible bowel sounds, No abnormal bowel sounds, No abdominal bruits, No spleenomegaly, No other Extremities: No normal range of motion, No non-tender, No normal inspection, No pedal edema, No calf tenderness, No normal capillary refill, No pelvis stable , No calf tenderness, No inflammation, No pedal edema, No slow capillary refill , No swelling, No other, No abrasion, No clubbing, No cyanosis, No ecchymosis, No laceration, No no lower extremity edema bilateral, No significant edema, No tenderness, No wound Neurologic/Psychiatric: no motor/sensory deficits, alert, normal mood/affect, oriented x 3, power is 5/5 both on sides Skin: No normal color, No warm/dry, No cyanosis, No cool, No diaphoresis, No damp, No ecchymosis, No jaundice, No mottled, No pallor, No rash, No tattoos/ piercings, No ulcerations, No rash on exposed areas, No ulcerations on exposed areas, No other Results/Procedures: Labs Laboratory Tests 04/01/18 17:56: Activated Partial Thromboplast Time 88H 04/02/18 07:45: Activated Partial Thromboplast Time 52H, White Blood Count 7.9, Red Blood Count 3.25L, Hemoglobin 9.4L, Hematocrit 29L, Mean Corpuscular Volume 89, Mean Corpuscular Hemoglobin 29, Mean Corpuscular Hemoglobin Concent 32, Red Cell Distribution Width 19.3H, Platelet Count 305, Mean Platelet Volume 10.1, Neutrophils (%) (Auto) 95H, Lymphocytes (%) (Auto) 3L, Monocytes (%) (Auto) 2, Eosinophils (%) (Auto) 0, Basophils (%) (Auto) 0, Neutrophils # (Auto) 7.5, Lymphocytes # (Auto) 0.2L, Monocytes # (Auto) 0.2, Eosinophils # (Auto) 0.0, Basophils # (Auto) 0.0, Neutrophils % (Manual) 96, Lymphocytes % (Manual) 2, Monocytes % (Manual) 1, Band Neutrophils 1, Clumped Platelets OCCASIONAL, Blood Morphology Comment NORMAL, Prothrombin Time 16.8H, INR Comment 1.4, Sodium Level 139, Potassium Level 3.4L, Chloride Level 106, Carbon Dioxide Level 20L, Anion Gap 13, Blood Urea Nitrogen 21H, Creatinine 0.97, Estimat Glomerular Filtration Rate > 60, BUN/Creatinine Ratio 22, Glucose Level 127H, Calcium Level 8.5, Vancomycin Level Trough 13.5 Microbiology 03/30/18 Mycobacterial Culture - Preliminary, Resulted A/P: Assessment/Dx: Bladder cancer, squamous cell lung cancer, Hematuria, Anemia, Right upper extremity DVT, Possible right PE, Worsening Respiratory failure, CAD/CABG, Paroxysmal atrial fibrillation Plan: Bladder cancer, squamous cell lung cancer, deferred to Dr. Borja. Hematuria, and mild hematuria. Anemia, Right upper extremity DVT, on heparin. Possible right PE, and heparin. Respiratory failure, improved initially; however and respiratory distress overnight. Sepsis due to lung source; likely fungal involvement as well. status post bronchoscopy by Dr. Cruz. Numerous mucous plugs were removed. CAD/CABG, no antiplatelet therapy due to anemia and bleeding. Paroxysmal atrial fibrillation, regular pulse. Likely sinus rhythm. On Channel Anusha. No Oral Anticoagulation Due To Significant Hematuria Previously and Anemia. Oral Anticoagulation with Eliquis or Xarelto Is Recommended for DVT/PE/ Paroxysmal Atrial Fibrillation; However Starting Oral Anticoagulation, the Risk of Bleeding Needs to Be Considered. For Now Continue Heparin. Poor prognosis. Thank you for your consultation. Please call me if you have any questions. Liban Brandon MD, FACP, FACC, FSCAI, FHRS, CCDS Interventional Cardiology Cardiac Electrophysiology Vascular Medicine and Endovascular Interventions Charles BRANDON MD Apr 02, 2018 12:08 pm
--- NOTE | 2018-04-02 12:26 | Pulmonary Progress Note ---
Subjective Time Seen by a Provider: 12:26 Sepsis Event Evaluation Height, Weight, BMI Height: 5'9.00" Weight: 151lbs. 8.0oz. 68.899897hy; 22.4 BMI Method:Stated Exam Exam Vital Signs Date Time Temp Pulse Resp B/P (MAP) Pulse Ox O2 Delivery O2 Flow Rate FiO2 04/02/18 08:00 97.1 109 20 134/74 (94) 95 Vapotherm 95.00 35.00 04/02/18 07:41 91 Vapotherm 30.00 95 04/02/18 04:00 96.6 114 18 132/73 (92) 87 Vapotherm 04/02/18 02:41 90 Vapotherm 30.00 95 04/02/18 00:00 98.4 115 24 123/77 (92) 88 Vapotherm 6.00 04/01/18 22:13 93 Vapotherm 24.00 85 04/01/18 20:15 Vapotherm 04/01/18 19:22 96.7 117 20 152/78 (102) 96 Vapotherm 6.00 04/01/18 19:15 93 Vapotherm 24.00 90 04/01/18 16:00 98.2 117 20 137/72 (93) 96 Vapotherm 90.00 24.00 04/01/18 14:53 95 Vapotherm 27.00 100 I & O 04/02/18 07:00 Intake Total 3050 ml Output Total 900 ml Balance 2150 ml Height & Weight Height: 5'9.00" Weight: 151lbs. 8.0oz. 68.003823km; 22.4 BMI Method:Stated General Appearance: WD/WN, Chronically ill, Moderate Distress (Due to tachypnea ) HEENT: PERRL/EOMI, Normal ENT Inspection, Pharynx Normal Neck: Full Range of Motion, Non Tender, Supple Respiratory: Accessory Muscle Use, Crackles, Decreased Breath Sounds, Rales, Respiratory Distress, Wheezing Cardiovascular: Regular Rate, Rhythm, No Edema, No Gallop, No JVD, No Murmur, Normal Peripheral Pulses Capillary Refill: Less Than 3 Seconds Gastrointestinal: normal bowel sounds, non tender, soft Extremity: Pedal Edema, Other (right arm edema) Neurologic/Psychiatric: Alert, Oriented x3, No Motor/Sensory Deficits, Normal Mood/Affect Skin: Normal Color, Warm/Dry Results Lab Laboratory Tests 04/01/18 03:20 04/02/18 07:45 Assessment/Plan Assessment/Plan Diffuse bilateral infiltrates pneumonia vs lymphangitic spread -s/p bronchoscopy - vancomycin, and Merrem (pt is allergic to Amoxil) -Solumedrol SOB with hypoxia -Oxygen Mucous plugging -Start SVNs with duoneb and Mucomyst Atelectasis Acute PE and RUE DVT from PICC line -Heparin gtt 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 Lawson is following GODFREY WILL DO Apr 02, 2018 12:26
--- NOTE | 2018-04-02 12:51 | Progress Note-Hospitalist ---
Subjective HPI/CC On Admission Date Seen by Provider: Apr 02, 2018 Time Seen by Provider: 11:00 Subjective/Events-last exam Patient a little bit improved with shortness of breath Morphine helps the respiratory distress when it does occur Steroids and Diflucan seem to be helping with the bronchial radiation inflammation Talking about end-of-life Review of Systems Pulmonary: Dyspnea Objective Exam Vital Signs Vital Signs Date Time Temp Pulse Resp B/P (MAP) Pulse Ox O2 Delivery O2 Flow Rate FiO2 04/02/18 08:00 97.1 109 20 134/74 (94) 95 Vapotherm 95.00 35.00 04/02/18 07:41 95 Capillary Refill : Less Than 3 Seconds General Appearance: WD/WN, Chronically ill, Cachetic, Moderate Distress (due to tachypnea on vapotherm) Respiratory: Chest Non Tender, Accessory Muscle Use, Crackles, Decreased Breath Sounds, Rales, Wheezing Cardiovascular: Regular Rate, Rhythm, No Edema, No Gallop, No JVD, No Murmur, Normal Peripheral Pulses Neurologic/Psychiatric: Alert, Oriented x3, No Motor/Sensory Deficits, Normal Mood/Affect Skin: Normal Color, Warm/Dry Results/Procedures Lab Laboratory Tests 04/02/18 07:45 Patient resulted labs reviewed. Assessment/Plan Assessment and Plan Assess & Plan/Chief Complaint Per PCP: PULMONARY EMBOLISM RIGHT UPPER EXTREMITY DEEP VEIN THROMBOSIS PNEUMONIA ANEMIA BLADDER CANCER HYPERTENSION ATRIAL FIBRILLATION Acute respiratory failure requiring Vapotherm Presumed fungal bronchitis Plan: Heparin drip Pain control if occurs Prognosis guarded Vapotherm Fungal coverage Poor prognosis Diagnosis/Problems Diagnosis/Problems (1) Respiratory insufficiency Status: Acute (2) Pneumonia Status: Acute Qualifiers: Pneumonia type: due to unspecified organism Laterality: right Lung location: lower lobe of lung Qualified Codes: J18.1 - Lobar pneumonia, unspecified organism (3) Deep venous thrombosis of right upper extremity Status: Acute Qualifiers: Affected thrombotic vein of extremity: unspecified vein of extremity Chronicity: acute Qualified Codes: I82.621 - Acute embolism and thrombosis of deep veins of right upper extremity (4) Anemia Status: Chronic Qualifiers: Anemia type: unspecified type Qualified Codes: D64.9 - Anemia, unspecified (5) Pulmonary embolism Status: Acute Qualifiers: Pulmonary embolism type: other Chronicity: acute Acute cor pulmonale presence: without acute cor pulmonale Qualified Codes: I26.99 - Other pulmonary embolism without acute cor pulmonale (6) Lung cancer Status: Chronic Qualifiers: Lung location: unspecified part of lung (7) Bladder cancer Status: Chronic Qualifiers: Bladder location: unspecified site Qualified Codes: C67.9 - Malignant neoplasm of bladder, unspecified (8) Poor prognosis Status: Chronic (9) DNR (do not resuscitate) Status: Chronic (10) Hypertension Status: Chronic Qualifiers: Hypertension type: essential hypertension Qualified Codes: I10 - Essential (primary) hypertension Clinical Quality Measures DVT/VTE Risk/Contraindication: Risk Factor Score Per Nursin RFS Level Per Nursing on Admit: 4+=Very High MARIO BLACK DO Apr 02, 2018 12:51
[2018-04-02] MEDS ORDERED: MAGIC MOUTHWASH, ADULT 155 ML BOTTLE PO SCH (13:00)
[2018-04-02] MEDS: HEParin DRIP 25000 UNIT/500ML 500 ML IV SCH (13:40)
[2018-04-02] MEDS: MAGIC MOUTHWASH (ADULT) PO SCH ×8 (18:08→21:59)
[2018-04-02] MEDS: MELATONIN 3 MG TABLET PO SCH (22:01)
[2018-04-02] MEDS ORDERED: LEVETIRACETAM INJECTION 500 MG in NS (IVPB) 100 ML IV ONE (22:45)
[2018-04-02] MEDS ORDERED: LEVETIRACETAM 500 MG/5 ML (KEPPRA) VIAL IV ONE (22:47)
[2018-04-02] MEDS ORDERED: NS (IVPB) 100 ML ONE (22:56)
[2018-04-03] VITALS: BP 133/72
[2018-04-03] MEDS: NYSTATIN ORAL SUSP 5 ML UDC PO SCH ×4 (01:16→17:13)
[2018-04-03] MEDS: methylPREDNISolone 125 MG (Solu-MEDROL) VIAL IVP SCH ×4 (01:17→17:13)
[2018-04-03] MEDS: RT-ALBUTEROL/IPRATROPIUM 3 ML (DUONEB) VIAL INH SCH ×6 (02:30→22:45)
[2018-04-03 04:00] VITALS: BP 127/66
[2018-04-03] MEDS: HYDROcodone/APAP 5 MG/325 MG (LORTAB) TAB PO SCH ×3 (05:20→16:43)
[2018-04-03] MEDS: morphine INJ 4 MG/ML 1 ML (VIAL/SYRINGE) IVP PRN (05:20)
[2018-04-03 05:48] LABS: BASOPHILS % (AUTO) 0 % (0-10); EOSINOPHILS % (AUTO) 0 % (0-10); HEMATOCRIT 28 % (40-54); HEMOGLOBIN 8.9 G/DL (13.3-17.7); LYMPHOCYTES # (AUTO) 0.1 X 10^3 (1.0-4.0); LYMPHOCYTES % (AUTO) 2 % (12-44); MEAN CORPUSCULAR HEMOGLOBIN 29 PG (25-34); MEAN CORPUSCULAR HGB CONC 32 G/DL (32-36); MEAN CORPUSCULAR VOLUME 91 FL (80-99); MEAN PLATELET VOLUME 10.5 FL (7.4-10.4); MONOCYTES # (AUTO) 0.2 X 10^3 (0.0-1.0); MONOCYTES % (AUTO) 2 % (0-12); NEUTROPHILS # (AUTO) 8.5 X 10^3 (1.8-7.8); NEUTROPHILS % (AUTO) 96 % (42-75); PLATELET COUNT 253 10^3/uL (130-400); RED BLOOD COUNT 3.07 10^6/uL (4.35-5.85); RED CELL DISTRIBUTION WIDTH 19.1 % (10.0-14.5); WHITE BLOOD COUNT 8.8 10^3/uL (4.3-11.0)
[2018-04-03 06:18] LABS: ALANINE AMINOTRANSFERASE 13 U/L (0-55); ALBUMIN 2.2 GM/DL (3.2-4.5); ALKALINE PHOSPHATASE 132 U/L (40-136); BILIRUBIN,TOTAL 0.6 MG/DL (0.1-1.0); BUN/CREATININE RATIO 25; CALCIUM 8.2 MG/DL (8.5-10.1); CARBON DIOXIDE 20 MMOL/L (21-32); CHLORIDE 107 MMOL/L (98-107); CREATININE SERUM 1.04 MG/DL (0.60-1.30); GFR ESTIMATED > 60; GLUCOSE 161 MG/DL (70-105); POTASSIUM 3.3 MMOL/L (3.6-5.0); SODIUM 141 MMOL/L (135-145); TOTAL PROTEIN 5.8 GM/DL (6.4-8.2)
[2018-04-03] MEDS: CATHETER FLUSH 10 ML SYR IV SCH ×3 (06:26→21:33)
[2018-04-03 06:31] LABS: INR 1.5 (0.8-1.4)
[2018-04-03] MEDS: aCETylcysteine 20% (MUCOMYST) 30ML SOLN VIAL INH SCH ×2 (07:00→22:45)
[2018-04-03] MEDS: MEROPENEM 500 MG in NS (IVPB) 100 ML IV SCH ×3 (07:13→17:13)
[2018-04-03] MEDS: PANTOPRAZOLE 40 MG (PROTONIX) TAB PO SCH (07:55)
[2018-04-03 08:00] VITALS: BP 127/74
[2018-04-03] MEDS: DILTIAZEM 120 MG (CARDIZEM CD) CAP PO SCH (08:02)
[2018-04-03] MEDS: VITAMIN D3 400 UNITS (CHOLECALCIFEROL) TABLET PO SCH (08:02)
[2018-04-03] MEDS: MAGNESIUM OXIDE (MAG-OX)400 MG TAB PO SCH ×2 (08:02→21:11)
[2018-04-03] MEDS: LEVETIRACETAM 500 MG (KEPPRA) TAB PO SCH ×2 (08:02→21:11)
[2018-04-03] MEDS: LACTOBACILLUS ACIDOPHILUS (PROBIOTIC) CAPSULE PO SCH (08:02)
[2018-04-03] MEDS: MAGIC MOUTHWASH (ADULT) PO SCH ×16 (08:04→21:13)
[2018-04-03] MEDS: FLUCONAZOLE 200 MG/100 ML 50 ML, EMPTY IV BAG (PVC) 1 EA IV SCH ×2 (08:13)
--- NOTE | 2018-04-03 08:31 | Diagnostic Imaging Report ---
Indication: Pneumonia Portable chest 6:38 AM There are diffuse alveolar infiltrates in the lungs. These are unchanged from 03/29/2018. There is no effusion or pneumothorax. The patient has had prior median sternotomy. There is cardiomegaly. Impression: Diffuse pulmonary infiltrates. 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 Dictated by: Dictated on workstation # [id number]
[2018-04-03] MEDS: HEParin DRIP 25000 UNIT/500ML 500 ML IV SCH (10:21)
[2018-04-03] MEDS: VANCOMYCIN 1 GM/NS 250 ML IVPB IV SCH ×2 (11:26)
--- NOTE | 2018-04-03 11:51 | Progress Note-Hospitalist ---
Subjective HPI/CC On Admission Date Seen by Provider: Apr 03, 2018 Time Seen by Provider: 11:00 Subjective/Events-last exam Patient at the end stage of his life Hsd a seizure last night Patient on Vapotherm and lethargic Pt in need of comfort care Likely will quickly once Vapotherm is DC Review of Systems Pulmonary: Dyspnea Objective Exam Vital Signs Vital Signs Date Time Temp Pulse Resp B/P (MAP) Pulse Ox O2 Delivery O2 Flow Rate FiO2 04/03/18 14:19 89 95 75.00 04/03/18 12:00 96.5 28 142/87 (105) NIV Bilevel 04/03/18 09:00 100 Capillary Refill : Less Than 3 Seconds General Appearance: Anxious, Chronically ill, Moderate Distress (due to tachypnea) Respiratory: Decreased Breath Sounds, Wheezing Cardiovascular: Tachycardia Neurologic/Psychiatric: Alert, Disoriented Results/Procedures Lab Laboratory Tests 04/03/18 05:40 Patient resulted labs reviewed. Assessment/Plan Assessment and Plan Assess & Plan/Chief Complaint Per PCP: PULMONARY EMBOLISM RIGHT UPPER EXTREMITY DEEP VEIN THROMBOSIS PNEUMONIA ANEMIA BLADDER CANCER HYPERTENSION ATRIAL FIBRILLATION Acute respiratory failure requiring Vapotherm Presumed fungal bronchitis Acute seizure last night due to advanced stage and hypoxia Plan: Needs comfort care Poor prognosis Diagnosis/Problems Diagnosis/Problems (1) Seizure Status: Acute (2) Respiratory insufficiency Status: Acute (3) Pneumonia Status: Acute Qualifiers: Pneumonia type: due to unspecified organism Laterality: right Lung location: lower lobe of lung Qualified Codes: J18.1 - Lobar pneumonia, unspecified organism (4) Deep venous thrombosis of right upper extremity Status: Acute Qualifiers: Affected thrombotic vein of extremity: unspecified vein of extremity Chronicity: acute Qualified Codes: I82.621 - Acute embolism and thrombosis of deep veins of right upper extremity (5) Anemia Status: Chronic Qualifiers: Anemia type: unspecified type Qualified Codes: D64.9 - Anemia, unspecified (6) Pulmonary embolism Status: Acute Qualifiers: Pulmonary embolism type: other Chronicity: acute Acute cor pulmonale presence: without acute cor pulmonale Qualified Codes: I26.99 - Other pulmonary embolism without acute cor pulmonale (7) Lung cancer Status: Chronic Qualifiers: Lung location: unspecified part of lung (8) Bladder cancer Status: Chronic Qualifiers: Bladder location: unspecified site Qualified Codes: C67.9 - Malignant neoplasm of bladder, unspecified (9) Poor prognosis Status: Chronic (10) DNR (do not resuscitate) Status: Chronic (11) Hypertension Status: Chronic Qualifiers: Hypertension type: essential hypertension Qualified Codes: I10 - Essential (primary) hypertension Clinical Quality Measures DVT/VTE Risk/Contraindication: Risk Factor Score Per Nursin RFS Level Per Nursing on Admit: 4+=Very High MARIO BLACK DO Apr 03, 2018 11:51
[2018-04-03 12:00] VITALS: BP 142/87
[2018-04-03] MEDS: NS IV 1000 ML 1,000 ML IV SCH (12:11)
--- NOTE | 2018-04-03 13:19 | Cardiology Progress Note ---
Cardiology SOAP Progress Note Subjective: Shortness of breath. Objective: I&O/Vital Signs 04/03/18 04/03/18 04/03/18 04/03/18 07:00 08:00 09:00 09:25 Temp 96.6 Pulse 105 110 Resp 20 B/P (MAP) 127/74 (91) Pulse Ox 89 90 95 100 O2 Delivery Vapotherm Vapotherm Vapotherm O2 Flow Rate 40.00 100.00 40.00 100.00 40.00 FiO2 100 100 04/03/18 04/03/18 04/03/18 04/03/18 10:20 12:00 14:19 16:00 Temp 96.5 96.0 Pulse 96 111 89 97 Resp 28 20 B/P (MAP) 142/87 (105) 137/87 (104) Pulse Ox 95 93 95 97 O2 Delivery NIV Bilevel NIV Bilevel O2 Flow Rate 75.00 75.00 04/03/18 00:00 Intake Total 950 ml Balance 950 ml Weight (Pounds): 151 Weight (Ounces): 8.0 Weight (Calculated Kilograms): 68.755125 Constitutional: appears stated age, AAO x 3, apparent distress, well-developed , well-nourished Respiratory: accessory muscle use, respiratory distress, chest is bilaterally symmetric, other (Poor air entry bilaterally.) Cardiovascular: regular rate-rhythm, S1 and S2, systolic murmur Gastrointestional: No tender, No soft, No round, No distended, No pulsatile mass, No organomegaly, No guarding, No rebound, No tenderness, No hernia, No mass, No audible bowel sounds, No abnormal bowel sounds, No abdominal bruits, No spleenomegaly, No other Extremities: No normal range of motion, No non-tender, No normal inspection, No pedal edema, No calf tenderness, No normal capillary refill, No pelvis stable , No calf tenderness, No inflammation, No pedal edema, No slow capillary refill , No swelling, No other, No abrasion, No clubbing, No cyanosis, No ecchymosis, No laceration, No no lower extremity edema bilateral, No significant edema, No tenderness, No wound Neurologic/Psychiatric: no motor/sensory deficits, alert, normal mood/affect, oriented x 3, power is 5/5 both on sides Skin: No normal color, No warm/dry, No cyanosis, No cool, No diaphoresis, No damp, No ecchymosis, No jaundice, No mottled, No pallor, No rash, No tattoos/ piercings, No ulcerations, No rash on exposed areas, No ulcerations on exposed areas, No other Results/Procedures: Labs Laboratory Tests 04/02/18 18:30: Activated Partial Thromboplast Time 76H 04/03/18 00:44: Activated Partial Thromboplast Time 99H 04/03/18 05:40: Activated Partial Thromboplast Time 116*H, White Blood Count 8.8, Red Blood Count 3.07L, Hemoglobin 8.9L, Hematocrit 28L, Mean Corpuscular Volume 91, Mean Corpuscular Hemoglobin 29, Mean Corpuscular Hemoglobin Concent 32, Red Cell Distribution Width 19.1H, Platelet Count 253, Mean Platelet Volume 10.5H, Neutrophils (%) (Auto) 96H, Lymphocytes (%) (Auto) 2L, Monocytes (%) (Auto) 2, Eosinophils (%) (Auto) 0, Basophils (%) (Auto) 0, Neutrophils # (Auto) 8.5H, Lymphocytes # (Auto) 0.1L, Monocytes # (Auto) 0.2, Eosinophils # (Auto) 0.0, Basophils # (Auto) 0.0, Prothrombin Time 18.0H, INR Comment 1.5H, Sodium Level 141, Potassium Level 3.3L, Chloride Level 107, Carbon Dioxide Level 20L, Anion Gap 14, Blood Urea Nitrogen 26H, Creatinine 1.04, Estimat Glomerular Filtration Rate > 60, BUN/Creatinine Ratio 25, Glucose Level 161H, Calcium Level 8.2L, Corrected Calcium 9.6, Total Bilirubin 0.6, Aspartate Amino Transf (AST/SGOT) 28 , Alanine Aminotransferase (ALT/SGPT) 13, Alkaline Phosphatase 132, Total Protein 5.8L, Albumin 2.2L 04/03/18 13:38: Activated Partial Thromboplast Time 60H Microbiology 03/30/18 Mycobacterial Culture - Preliminary, Resulted A/P: Assessment/Dx: Bladder cancer, squamous cell lung cancer, Hematuria, Anemia, Right upper extremity DVT, Possible right PE, Worsening Respiratory failure, CAD/CABG, Paroxysmal atrial fibrillation Plan: Bladder cancer, squamous cell lung cancer, deferred to Dr. Borja. Hematuria, and mild hematuria. Anemia, Right upper extremity DVT, on heparin. Possible right PE, and heparin. Respiratory failure, improved initially; however and respiratory distress overnight. Sepsis due to lung source; likely fungal involvement as well. status post bronchoscopy by Dr. Cruz. Numerous mucous plugs were removed. CAD/CABG, no antiplatelet therapy due to anemia and bleeding. Paroxysmal atrial fibrillation, regular pulse. Likely sinus rhythm. On Channel Anusha. No Oral Anticoagulation Due To Significant Hematuria Previously and Anemia. Oral Anticoagulation with Eliquis or Xarelto Is Recommended for DVT/PE/ Paroxysmal Atrial Fibrillation; However Starting Oral Anticoagulation, the Risk of Bleeding Needs to Be Considered. For Now Continue Heparin. Poor prognosis. Thank you for your consultation. Please call me if you have any questions. Liban Brandon MD, FACP, FACC, FSCAI, FHRS, CCDS Interventional Cardiology Cardiac Electrophysiology Vascular Medicine and Endovascular Interventions Charles BRANDON MD Apr 03, 2018 1:19 pm
[2018-04-03] MEDS: HEParin 1000 UNIT/ML (10ML VIAL) FOR BOLUS IV SCH (15:06)
[2018-04-03] MEDS ORDERED: morphine INJ 4 MG/ML 1 ML (VIAL/SYRINGE) IVP PRN (15:30)
--- NOTE | 2018-04-03 15:37 | Progress Note-Standard ---
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 The patient completed 6 weeks of radiation therapy with weekly chemotherapy. Treatment held because of the significant hematuria. Patient is gradually recovering from the side effects. Admitted with the right upper extremity swelling and evidence of DVT as well as the right lower lobe PE. CT angiogram with bilateral infiltrates/atelectasis. Dr. Cruz did a bronchoscopy with washings bilaterally. Patient had evidence of significant mucus plugging which was washed out. He is on broad-spectrum antibiotics with meropenem and vancomycin. Preliminary cultures showing abundant Gram positive cocci identified as Corynebacterium striatum. Current antibiotics has good coverage against this. Fungal cultures negative so far but patient was started on Diflucan and I will continue this for now. He is continuing on heparin with no significant bleeding. Patient had a rough night. Nurse reported short seizure episode with no bowel or bladder incontinence or post ictal symptoms. Increasing SOB and oxygen requirement today. On bipap with sats in 90's. Patient weak and somnolent but arousable. oriented when awake and communicating. Not eating much today. Labs and CXR stable. Discussed with about worsening condition despite aggressive supportive management. If continuing to worsen will change to best supportive care only. Family understands and agrees. LAVERNE SUNSHINE Apr 03, 2018 15:37
[2018-04-03 16:00] VITALS: BP 137/87
[2018-04-03 19:10] VITALS: BP 134/81
[2018-04-03] MEDS: MELATONIN 3 MG TABLET PO SCH (21:11)
[2018-04-04] VITALS (7 sets, daily range): BP systolic 125–156; BP diastolic 62–85
[2018-04-04] MEDS: methylPREDNISolone 125 MG (Solu-MEDROL) VIAL IVP SCH ×5 (00:11→23:31)
[2018-04-04] MEDS: NYSTATIN ORAL SUSP 5 ML UDC PO SCH ×5 (00:11→23:31)
[2018-04-04] MEDS: MEROPENEM 500 MG in NS (IVPB) 100 ML IV SCH ×5 (00:12→23:30)
[2018-04-04] MEDS: HYDROcodone/APAP 5 MG/325 MG (LORTAB) TAB PO SCH ×5 (00:12→23:31)
[2018-04-04] MEDS: RT-ALBUTEROL/IPRATROPIUM 3 ML (DUONEB) VIAL INH SCH ×6 (02:35→22:27)
[2018-04-04 03:16] LABS: BASOPHILS % (AUTO) 0 % (0-10); EOSINOPHILS % (AUTO) 0 % (0-10); HEMATOCRIT 27 % (40-54); HEMOGLOBIN 8.6 G/DL (13.3-17.7); LYMPHOCYTES # (AUTO) 0.1 X 10^3 (1.0-4.0); LYMPHOCYTES % (AUTO) 1 % (12-44); MEAN CORPUSCULAR HEMOGLOBIN 29 PG (25-34); MEAN CORPUSCULAR HGB CONC 32 G/DL (32-36); MEAN CORPUSCULAR VOLUME 91 FL (80-99); MEAN PLATELET VOLUME 10.5 FL (7.4-10.4); MONOCYTES # (AUTO) 0.1 X 10^3 (0.0-1.0); MONOCYTES % (AUTO) 2 % (0-12); NEUTROPHILS # (AUTO) 7.9 X 10^3 (1.8-7.8); NEUTROPHILS % (AUTO) 97 % (42-75); PLATELET COUNT 250 10^3/uL (130-400); RED BLOOD COUNT 2.97 10^6/uL (4.35-5.85); RED CELL DISTRIBUTION WIDTH 19.1 % (10.0-14.5); WHITE BLOOD COUNT 8.1 10^3/uL (4.3-11.0)
[2018-04-04 03:36] LABS: BUN/CREATININE RATIO 25; CALCIUM 8.1 MG/DL (8.5-10.1); CARBON DIOXIDE 21 MMOL/L (21-32); CHLORIDE 106 MMOL/L (98-107); CREATININE SERUM 1.09 MG/DL (0.60-1.30); GFR ESTIMATED > 60; GLUCOSE 163 MG/DL (70-105); POTASSIUM 3.7 MMOL/L (3.6-5.0); SODIUM 140 MMOL/L (135-145)
[2018-04-04 03:37] LABS: INR 1.4 (0.8-1.4); PROTHROMBIN TIME PATIENT 16.9 SEC (12.2-14.7)
[2018-04-04] MEDS: CATHETER FLUSH 10 ML SYR IV SCH ×3 (06:00→20:59)
[2018-04-04] MEDS: PANTOPRAZOLE 40 MG (PROTONIX) TAB PO SCH (06:06)
[2018-04-04] MEDS: HEParin DRIP 25000 UNIT/500ML 500 ML IV SCH (06:58)
[2018-04-04] MEDS: aCETylcysteine 20% (MUCOMYST) 30ML SOLN VIAL INH SCH ×3 (07:03→22:27)
--- NOTE | 2018-04-04 08:51 | Physical Therapy Progress Note ---
Therapy Progress Note Patient is at end stage of life per physician and on BiPap. No skilled PT indicated at this time. PT to dismiss patient from services. RN notified. JAYA GUERRERO PT Apr 04, 2018 08:51
--- NOTE | 2018-04-04 08:51 | Progress Note ---
Objective Exam Last Set of Vital Signs Vital Signs Date Time Temp Pulse Resp B/P (MAP) Pulse Ox O2 Delivery O2 Flow Rate FiO2 04/04/18 07:04 92 31 97 75.00 04/04/18 04:00 97.4 127/78 (94) NIV Bilevel 04/03/18 09:00 100 Capillary Refill : Less Than 3 Seconds I&O Intake and Output 04/04/18 00:00 Intake Total 2195 ml Output Total 1575 ml Balance 620 ml Intake Oral 1240 ml IV Total 955 ml Output Urine Total 1575 ml Daily Weight Change Unsure Results Lab Laboratory Tests 04/03/18 13:38: Activated Partial Thromboplast Time 60H 04/03/18 19:30: Activated Partial Thromboplast Time 151*H 04/04/18 03:05: Activated Partial Thromboplast Time 70H, White Blood Count 8.1, Red Blood Count 2.97L, Hemoglobin 8.6L, Hematocrit 27L, Mean Corpuscular Volume 91, Mean Corpuscular Hemoglobin 29, Mean Corpuscular Hemoglobin Concent 32, Red Cell Distribution Width 19.1H, Platelet Count 250, Mean Platelet Volume 10.5H, Neutrophils (%) (Auto) 97H, Lymphocytes (%) (Auto) 1L, Monocytes (%) (Auto) 2, Eosinophils (%) (Auto) 0, Basophils (%) (Auto) 0, Neutrophils # (Auto) 7.9H, Lymphocytes # (Auto) 0.1L, Monocytes # (Auto) 0.1, Eosinophils # (Auto) 0.0, Basophils # (Auto) 0.0, Prothrombin Time 16.9H, INR Comment 1.4, Sodium Level 140, Potassium Level 3.7, Chloride Level 106, Carbon Dioxide Level 21, Anion Gap 13, Blood Urea Nitrogen 27H, Creatinine 1.09, Estimat Glomerular Filtration Rate > 60, BUN/Creatinine Ratio 25, Glucose Level 163H, Calcium Level 8.1L Microbiology 03/30/18 Mycobacterial Culture - Preliminary, Resulted Assessment/Plan Assessment/Plan Assess & Plan/Chief Complaint PULMONARY EMBOLISM RIGHT UPPER EXTREMITY DEEP VEIN THROMBOSIS PNEUMONIA ANEMIA BLADDER CANCER HYPERTENSION ATRIAL FIBRILLATION PULMONARY EMBOLISM DUE TO RIGHT UPPER EXTREMITY DEEP VEIN THROMBOSIS - PT ON HEPARIN DRIP - CONTINUE WITH TREATMENT, DEFER TO DR. SUNSHINE. PNEUMONIA - STATUS POST BRONCHOSCOPY WITH IMPROVED SYMPTOMS. ANEMIA - STABLE - WILL NEED TO CLOSELY MONITOR SYMPTOMS WE HAD TO TAKE HIM OFF OF ANTICOAGULATION DUE TO PERSISTENT HEMATURIA. BLADDER CANCER - DEFER TO DR. SUNSHINE LUNG CANCER - DEFER TO DR. SUNSHINE HYPERTENSION - RESUME DILTIAZEM ATRIAL FIBRILLATION - RESUME DILTIAZEM. Clinical Quality Measures DVT/VTE Risk/Contraindication: Risk Factor Score Per Nursin RFS Level Per Nursing on Admit: 4+=Very High CAREY CHOWDHURY MD Apr 04, 2018 08:51
[2018-04-04] MEDS: FLUCONAZOLE 200 MG/100 ML 50 ML, EMPTY IV BAG (PVC) 1 EA IV SCH ×2 (09:13)
[2018-04-04] MEDS: LEVETIRACETAM 500 MG (KEPPRA) TAB PO SCH ×2 (09:13→20:57)
[2018-04-04] MEDS: MAGNESIUM OXIDE (MAG-OX)400 MG TAB PO SCH ×2 (09:13→20:57)
[2018-04-04] MEDS: VITAMIN D3 400 UNITS (CHOLECALCIFEROL) TABLET PO SCH (09:13)
[2018-04-04] MEDS: DILTIAZEM 120 MG (CARDIZEM CD) CAP PO SCH (09:13)
[2018-04-04] MEDS: LACTOBACILLUS ACIDOPHILUS (PROBIOTIC) CAPSULE PO SCH (09:13)
[2018-04-04] MEDS: MAGIC MOUTHWASH (ADULT) PO SCH ×16 (09:14→20:58)
[2018-04-04] MEDS: ALPRAZolam 0.5 MG (XANAX) TAB PO PRN ×2 (09:38→21:22)
[2018-04-04] MEDS: ACETAMINOPHEN 325 MG TABLET PO PRN (09:39)
[2018-04-04] MEDS: VANCOMYCIN 1 GM/NS 250 ML IVPB IV SCH ×2 (11:02)
[2018-04-04] MEDS: NS IV 1000 ML 1,000 ML IV SCH ×2 (15:11→21:00)
--- NOTE | 2018-04-04 17:27 | Cardiology Progress Note ---
Cardiology SOAP Progress Note Subjective: Continues to have shortness of breath. Slightly better than yesterday. Objective: I&O/Vital Signs 04/04/18 04/04/18 04/04/18 04/04/18 07:04 08:00 08:00 09:00 Temp 98.4 Pulse 92 100 85 Resp 31 22 30 B/P (MAP) 130/62 (84) Pulse Ox 97 100 99 98 O2 Delivery NIV Bilevel Vapotherm O2 Flow Rate 75.00 40.00 100.00 75.00 40.00 04/04/18 04/04/18 04/04/18 04/04/18 12:00 12:15 15:45 15:47 Temp 96.4 97.7 Pulse 99 93 78 Resp 20 41 22 25 B/P (MAP) 154/85 (108) 132/64 (86) Pulse Ox 99 100 98 O2 Delivery Vapotherm Vapotherm O2 Flow Rate 100.00 75.00 100.00 75.00 40.00 40.00 04/03/18 23:59 Intake Total 1140 ml Output Total 1075 ml Balance 65 ml Weight (Pounds): 151 Weight (Ounces): 8.0 Weight (Calculated Kilograms): 68.135767 Constitutional: appears stated age, AAO x 3, apparent distress, well-developed , well-nourished Respiratory: accessory muscle use, respiratory distress, chest is bilaterally symmetric, other (Poor air entry bilaterally.) Cardiovascular: regular rate-rhythm, S1 and S2, systolic murmur Gastrointestional: No tender, No soft, No round, No distended, No pulsatile mass, No organomegaly, No guarding, No rebound, No tenderness, No hernia, No mass, No audible bowel sounds, No abnormal bowel sounds, No abdominal bruits, No spleenomegaly, No other Extremities: No normal range of motion, No non-tender, No normal inspection, No pedal edema, No calf tenderness, No normal capillary refill, No pelvis stable , No calf tenderness, No inflammation, No pedal edema, No slow capillary refill , No swelling, No other, No abrasion, No clubbing, No cyanosis, No ecchymosis, No laceration, No no lower extremity edema bilateral, No significant edema, No tenderness, No wound Neurologic/Psychiatric: no motor/sensory deficits, alert, normal mood/affect, oriented x 3, power is 5/5 both on sides Skin: No normal color, No warm/dry, No cyanosis, No cool, No diaphoresis, No damp, No ecchymosis, No jaundice, No mottled, No pallor, No rash, No tattoos/ piercings, No ulcerations, No rash on exposed areas, No ulcerations on exposed areas, No other Results/Procedures: Labs Laboratory Tests 04/03/18 19:30: Activated Partial Thromboplast Time 151*H 04/04/18 03:05: Activated Partial Thromboplast Time 70H, White Blood Count 8.1, Red Blood Count 2.97L, Hemoglobin 8.6L, Hematocrit 27L, Mean Corpuscular Volume 91, Mean Corpuscular Hemoglobin 29, Mean Corpuscular Hemoglobin Concent 32, Red Cell Distribution Width 19.1H, Platelet Count 250, Mean Platelet Volume 10.5H, Neutrophils (%) (Auto) 97H, Lymphocytes (%) (Auto) 1L, Monocytes (%) (Auto) 2, Eosinophils (%) (Auto) 0, Basophils (%) (Auto) 0, Neutrophils # (Auto) 7.9H, Lymphocytes # (Auto) 0.1L, Monocytes # (Auto) 0.1, Eosinophils # (Auto) 0.0, Basophils # (Auto) 0.0, Prothrombin Time 16.9H, INR Comment 1.4, Sodium Level 140, Potassium Level 3.7, Chloride Level 106, Carbon Dioxide Level 21, Anion Gap 13, Blood Urea Nitrogen 27H, Creatinine 1.09, Estimat Glomerular Filtration Rate > 60, BUN/Creatinine Ratio 25, Glucose Level 163H, Calcium Level 8.1L 04/04/18 09:05: Activated Partial Thromboplast Time 54H 04/04/18 16:10: Activated Partial Thromboplast Time 88H Microbiology 03/30/18 Mycobacterial Culture - Preliminary, Resulted A/P: Assessment/Dx: Bladder cancer, squamous cell lung cancer, Hematuria, Anemia, Right upper extremity DVT, Possible right PE, Worsening Respiratory failure, CAD/CABG, Paroxysmal atrial fibrillation Plan: Bladder cancer, squamous cell lung cancer, deferred to Dr. Borja. Hematuria, and mild hematuria. Anemia, Right upper extremity DVT, on heparin. Possible right PE, and heparin. Respiratory failure, improved initially; however and respiratory distress overnight. Sepsis due to lung source; likely fungal involvement as well. status post bronchoscopy by Dr. Cruz. Numerous mucous plugs were removed. CAD/CABG, no antiplatelet therapy due to anemia and bleeding. Paroxysmal atrial fibrillation, regular pulse. Likely sinus rhythm. On Channel Anusha. No Oral Anticoagulation Due To Significant Hematuria Previously and Anemia. Oral Anticoagulation with Eliquis or Xarelto Is Recommended for DVT/PE/ Paroxysmal Atrial Fibrillation; However Starting Oral Anticoagulation, the Risk of Bleeding Needs to Be Considered. For Now Continue Heparin. Poor prognosis. Thank you for your consultation. Please call me if you have any questions. Liban Brandon MD, FACP, FACC, FSCAI, FHRS, CCDS Interventional Cardiology Cardiac Electrophysiology Vascular Medicine and Endovascular Interventions Charles BRANDON MD Apr 04, 2018 5:27 pm
--- NOTE | 2018-04-04 17:50 | Progress Note-Standard ---
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 The patient completed 6 weeks of radiation therapy with weekly chemotherapy. Treatment held because of the significant hematuria. Patient is gradually recovering from the side effects. Admitted with the right upper extremity swelling and evidence of DVT as well as the right lower lobe PE. CT angiogram with bilateral infiltrates/atelectasis. Dr. Cruz did a bronchoscopy with washings bilaterally. Patient had evidence of significant mucus plugging which was washed out. He is on broad-spectrum antibiotics with meropenem and vancomycin. Preliminary cultures showing abundant Gram positive cocci identified as Corynebacterium striatum. Current antibiotics has good coverage against this. Fungal cultures negative so far but patient was started on Diflucan and I will continue this for now. He is continuing on heparin with no significant bleeding. Patient is somnolent but arousable. He feels better than yesterday and had a good morning. Biopsy known he feels more tired and is sleeping. Continues to be on BiPAP with oxygen saturation in the 90s. Drinking [place] Instant Breakfast and eating small amounts today. Labs stable. If his condition continues to worsen, will change to best supportive care only. Patient's and biology, daughter in room at the time of evaluation and voiced understanding. LAVERNE SUNSHINE Apr 04, 2018 17:50
[2018-04-04] MEDS: MELATONIN 3 MG TABLET PO SCH (20:57)
[2018-04-05] MEDS: RT-ALBUTEROL/IPRATROPIUM 3 ML (DUONEB) VIAL INH SCH ×7 (02:07→22:30)
[2018-04-05] MEDS: HEParin DRIP 25000 UNIT/500ML 500 ML IV SCH ×2 (04:20→23:15)
[2018-04-05 04:55] VITALS: BP 130/84
[2018-04-05] MEDS: MEROPENEM 500 MG in NS (IVPB) 100 ML IV SCH ×4 (05:23→23:05)
[2018-04-05] MEDS: methylPREDNISolone 125 MG (Solu-MEDROL) VIAL IVP SCH ×4 (05:23→23:09)
[2018-04-05] MEDS: HYDROcodone/APAP 5 MG/325 MG (LORTAB) TAB PO SCH ×4 (05:23→23:04)
[2018-04-05] MEDS: CATHETER FLUSH 10 ML SYR IV SCH ×3 (05:23→21:18)
[2018-04-05] MEDS: NYSTATIN ORAL SUSP 5 ML UDC PO SCH ×5 (05:23→23:04)
[2018-04-05] MEDS: PANTOPRAZOLE 40 MG (PROTONIX) TAB PO SCH (05:26)
[2018-04-05 05:56] LABS: INR 1.4 (0.8-1.4); PROTHROMBIN TIME PATIENT 16.7 SEC (12.2-14.7)
[2018-04-05 06:04] LABS: BUN/CREATININE RATIO 28; CALCIUM 8.3 MG/DL (8.5-10.1); CARBON DIOXIDE 20 MMOL/L (21-32); CHLORIDE 107 MMOL/L (98-107); CREATININE SERUM 1.14 MG/DL (0.60-1.30); GFR ESTIMATED > 60; GLUCOSE 143 MG/DL (70-105); POTASSIUM 4.3 MMOL/L (3.6-5.0); SODIUM 140 MMOL/L (135-145)
[2018-04-05 08:00] VITALS: BP 127/75
--- NOTE | 2018-04-05 08:06 | Diagnostic Imaging Report ---
EXAM: CHEST 1 VIEW, AP/PA ONLY INDICATION: Pneumonia. COMPARISON: Chest radiograph 04/03/2018. FINDINGS: Cardiomegaly. Central pulmonary vascularity is obscured. Sternotomy. Diffuse bilateral interstitial and airspace opacities are similar to the prior exam. No definite pleural effusion or pneumothorax. No acute osseous findings. IMPRESSION: Diffuse persistent pulmonary infiltrates are similar to the prior exam. Dictated by: Dictated on workstation # [id number]
--- NOTE | 2018-04-05 08:48 | Progress Note ---
Objective Exam Last Set of Vital Signs Vital Signs Date Time Temp Pulse Resp B/P (MAP) Pulse Ox O2 Delivery O2 Flow Rate FiO2 04/05/18 07:38 102 27 97 60.00 04/05/18 04:55 97.0 130/84 (99) NIV Bilevel 04/03/18 09:00 100 Capillary Refill : Less Than 3 Seconds I&O Intake and Output 04/05/18 00:00 Intake Total 1920 ml Output Total 700 ml Balance 1220 ml Intake Oral 920 ml IV Total 1000 ml Output Urine Total 700 ml Results Lab Laboratory Tests 04/04/18 09:05: Activated Partial Thromboplast Time 54H 04/04/18 16:10: Activated Partial Thromboplast Time 88H 04/04/18 22:10: Activated Partial Thromboplast Time 88H 04/05/18 05:15: Activated Partial Thromboplast Time 56H, Prothrombin Time 16.7H, INR Comment 1.4 , Sodium Level 140, Potassium Level 4.3, Chloride Level 107, Carbon Dioxide Level 20L, Anion Gap 13, Blood Urea Nitrogen 32H, Creatinine 1.14, Estimat Glomerular Filtration Rate > 60, BUN/Creatinine Ratio 28, Glucose Level 143H, Calcium Level 8.3L Microbiology 03/30/18 Mycobacterial Culture - Preliminary, Resulted Assessment/Plan Assessment/Plan Assess & Plan/Chief Complaint PULMONARY EMBOLISM RIGHT UPPER EXTREMITY DEEP VEIN THROMBOSIS PNEUMONIA ANEMIA BLADDER CANCER HYPERTENSION ATRIAL FIBRILLATION PULMONARY EMBOLISM DUE TO RIGHT UPPER EXTREMITY DEEP VEIN THROMBOSIS - PT ON HEPARIN DRIP - CONTINUE WITH TREATMENT, DEFER TO DR. SUNSHINE. PNEUMONIA - STATUS POST BRONCHOSCOPY WITH IMPROVED SYMPTOMS. ANEMIA - STABLE - WILL NEED TO CLOSELY MONITOR SYMPTOMS WE HAD TO TAKE HIM OFF OF ANTICOAGULATION DUE TO PERSISTENT HEMATURIA. BLADDER CANCER - DEFER TO DR. SUNSHINE LUNG CANCER - DEFER TO DR. SUNSHINE HYPERTENSION - RESUME DILTIAZEM ATRIAL FIBRILLATION - RESUME DILTIAZEM. Clinical Quality Measures DVT/VTE Risk/Contraindication: Risk Factor Score Per Nursin RFS Level Per Nursing on Admit: 4+=Very High CAREY CHOWDHURY MD Apr 05, 2018 08:48
--- NOTE | 2018-04-05 08:57 | Pulmonary Progress Note ---
Sepsis Event Evaluation Height, Weight, BMI Height: 5'9.00" Weight: 151lbs. 8.0oz. [age]yo; 22.4 BMI Method:Stated Exam Exam Vital Signs Date Time Temp Pulse Resp B/P (MAP) Pulse Ox O2 Delivery O2 Flow Rate FiO2 04/05/18 08:00 96.5 100 18 127/75 (92) 97 Vapotherm 100.00 40.00 04/05/18 07:38 102 27 97 60.00 04/05/18 05:37 89 34 93 60.00 04/05/18 04:55 97.0 94 22 130/84 (99) 97 NIV Bilevel 04/05/18 02:08 78 24 96 65.00 04/04/18 23:45 96.9 104 22 141/83 (102) 94 NIV Bilevel 04/04/18 22:27 88 27 99 70.00 04/04/18 20:00 NIV Bilevel 65.00 04/04/18 19:20 96.6 83 22 125/62 (83) 100 Vapotherm 100.00 40.00 04/04/18 18:38 98 26 99 75.00 04/04/18 15:47 78 25 98 75.00 04/04/18 15:45 97.7 93 22 132/64 (86) 100 Vapotherm 100.00 40.00 04/04/18 12:15 41 75.00 04/04/18 12:00 96.4 99 20 154/85 (108) 99 Vapotherm 100.00 40.00 04/04/18 09:00 85 30 98 75.00 I & O 04/05/18 07:00 Intake Total 1070 ml Output Total 950 ml Balance 120 ml Height & Weight Height: 5'9.00" Weight: 151lbs. 8.0oz. 68.551491pq; 22.4 BMI Method:Stated General Appearance: Anxious, Chronically ill, Moderate Distress (due to tachypnea) HEENT: PERRL/EOMI, Normal ENT Inspection, Pharynx Normal Neck: Full Range of Motion, Non Tender, Supple Respiratory: Decreased Breath Sounds, Wheezing Cardiovascular: Tachycardia Capillary Refill: Less Than 3 Seconds Gastrointestinal: normal bowel sounds, non tender, soft Extremity: Pedal Edema, Other (right arm edema) Neurologic/Psychiatric: Alert, Disoriented Skin: Normal Color, Warm/Dry Results Lab Laboratory Tests 04/04/18 03:05 04/05/18 05:15 Assessment/Plan Assessment/Plan Diffuse bilateral infiltrates pneumonia vs lymphangitic spread -s/p bronchoscopy - vancomycin, fluconazole and Merrem (pt is allergic to Amoxil) -Solumedrol SOB with hypoxia -Oxygen Mucous plugging -Start SVNs with duoneb and Mucomyst Atelectasis Acute PE and RUE DVT from PICC line -Continue anticoagulation per Dr. Lawson recs 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 Lawson is following Pt has advanced disease. Overall prognosis is poor. Pt is still requiring high flow oxygen. GODFREY WILL DO Apr 05, 2018 08:57
[2018-04-05] MEDS: FLUCONAZOLE 200 MG/100 ML 50 ML, EMPTY IV BAG (PVC) 1 EA IV SCH ×2 (09:13)
[2018-04-05] MEDS: VITAMIN D3 400 UNITS (CHOLECALCIFEROL) TABLET PO SCH (09:13)
[2018-04-05] MEDS: LACTOBACILLUS ACIDOPHILUS (PROBIOTIC) CAPSULE PO SCH (09:14)
[2018-04-05] MEDS: MAGIC MOUTHWASH (ADULT) PO SCH ×16 (09:14→21:17)
[2018-04-05] MEDS: MAGNESIUM OXIDE (MAG-OX)400 MG TAB PO SCH ×2 (09:14→21:17)
[2018-04-05] MEDS: LEVETIRACETAM 500 MG (KEPPRA) TAB PO SCH ×2 (09:14→21:17)
[2018-04-05] MEDS: DILTIAZEM 120 MG (CARDIZEM CD) CAP PO SCH (09:14)
--- NOTE | 2018-04-05 09:25 | Cardiology Progress Note ---
Cardiology SOAP Progress Note Subjective: Still significantly short of breath. However slightly better than yesterday. Objective: I&O/Vital Signs 04/05/18 04/05/18 04/05/18 04/05/18 02:08 04:55 05:37 07:38 Temp 97.0 Pulse 78 94 89 102 Resp 24 22 34 27 B/P (MAP) 130/84 (99) Pulse Ox 96 97 93 97 O2 Delivery NIV Bilevel O2 Flow Rate 65.00 60.00 60.00 04/05/18 04/05/18 04/05/18 08:00 08:00 11:26 Temp 96.5 Pulse 100 Resp 18 B/P (MAP) 127/75 (92) Pulse Ox 97 100 93 O2 Delivery Vapotherm NIV Bilevel Vapotherm O2 Flow Rate 100.00 40.00 40.00 40.00 FiO2 100 04/05/18 00:00 Intake Total 920 ml Output Total 450 ml Balance 470 ml Weight (Pounds): 151 Weight (Ounces): 8.0 Weight (Calculated Kilograms): 68.182491 Constitutional: appears stated age, AAO x 3, apparent distress, well-developed , well-nourished Respiratory: accessory muscle use, respiratory distress, chest is bilaterally symmetric, other (Poor air entry bilaterally.) Cardiovascular: regular rate-rhythm, S1 and S2, systolic murmur Gastrointestional: No tender, No soft, No round, No distended, No pulsatile mass, No organomegaly, No guarding, No rebound, No tenderness, No hernia, No mass, No audible bowel sounds, No abnormal bowel sounds, No abdominal bruits, No spleenomegaly, No other Extremities: No normal range of motion, No non-tender, No normal inspection, No pedal edema, No calf tenderness, No normal capillary refill, No pelvis stable , No calf tenderness, No inflammation, No pedal edema, No slow capillary refill , No swelling, No other, No abrasion, No clubbing, No cyanosis, No ecchymosis, No laceration, No no lower extremity edema bilateral, No significant edema, No tenderness, No wound Neurologic/Psychiatric: no motor/sensory deficits, alert, normal mood/affect, oriented x 3, power is 5/5 both on sides Skin: No normal color, No warm/dry, No cyanosis, No cool, No diaphoresis, No damp, No ecchymosis, No jaundice, No mottled, No pallor, No rash, No tattoos/ piercings, No ulcerations, No rash on exposed areas, No ulcerations on exposed areas, No other Results/Procedures: Labs Laboratory Tests 04/04/18 16:10: Activated Partial Thromboplast Time 88H 04/04/18 22:10: Activated Partial Thromboplast Time 88H 04/05/18 05:15: Activated Partial Thromboplast Time 56H, Prothrombin Time 16.7H, INR Comment 1.4 , Sodium Level 140, Potassium Level 4.3, Chloride Level 107, Carbon Dioxide Level 20L, Anion Gap 13, Blood Urea Nitrogen 32H, Creatinine 1.14, Estimat Glomerular Filtration Rate > 60, BUN/Creatinine Ratio 28, Glucose Level 143H, Calcium Level 8.3L Microbiology 03/30/18 Mycobacterial Culture - Preliminary, Resulted A/P: Assessment/Dx: Bladder cancer, squamous cell lung cancer, Hematuria, Anemia, Right upper extremity DVT, Possible right PE, Worsening Respiratory failure, CAD/CABG, Paroxysmal atrial fibrillation Plan: Bladder cancer, squamous cell lung cancer, deferred to Dr. Borja. Hematuria, and mild hematuria. Anemia, Right upper extremity DVT, on heparin. Possible right PE, and heparin. Respiratory failure, improved initially; however and respiratory distress. Sepsis due to lung source; likely fungal involvement as well. Very slow improvement. status post bronchoscopy by Dr. Cruz. Numerous mucous plugs were removed. CAD/CABG, no antiplatelet therapy due to anemia and bleeding. Paroxysmal atrial fibrillation, regular pulse. Likely sinus rhythm. On Channel Anusha. No Oral Anticoagulation Due To Significant Hematuria Previously and Anemia. Oral Anticoagulation with Eliquis or Xarelto Is Recommended for DVT/PE/ Paroxysmal Atrial Fibrillation; However Starting Oral Anticoagulation, the Risk of Bleeding Needs to Be Considered. For Now Continue Heparin. Poor prognosis. Thank you for your consultation. Please call me if you have any questions. Liban Brandon MD, FACP, FACC, FSCAI, FHRS, CCDS Interventional Cardiology Cardiac Electrophysiology Vascular Medicine and Endovascular Interventions Charles BRANDON MD Apr 05, 2018 9:25 am
[2018-04-05 12:00] VITALS: BP 118/71
[2018-04-05] MEDS: VANCOMYCIN 1 GM/NS 250 ML IVPB IV SCH ×2 (12:09)
[2018-04-05 16:00] VITALS: BP 154/68
[2018-04-05] MEDS: ALPRAZolam 0.5 MG (XANAX) TAB PO PRN (18:25)
--- NOTE | 2018-04-05 18:33 | Progress Note-Standard ---
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 The patient completed 6 weeks of radiation therapy with weekly chemotherapy. Treatment held because of the significant hematuria. Patient is gradually recovering from the side effects. Admitted with the right upper extremity swelling and evidence of DVT as well as the right lower lobe PE. CT angiogram with bilateral infiltrates/atelectasis. Dr. Cruz did a bronchoscopy with washings bilaterally. Patient had evidence of significant mucus plugging which was washed out. He is on broad-spectrum antibiotics with meropenem and vancomycin. Preliminary cultures showing abundant Gram positive cocci identified as Corynebacterium striatum. Current antibiotic treatment with the meropenem and vancomycin both of which has good coverage against this. Fungal cultures negative so far but patient was started on Diflucan and I will continue this for now. He is continuing on heparin with no significant bleeding. Patient is awake and feeling much better. He is off BiPAP machine and on Vapotherm. Oxygen saturation is in 100 percent range with 33 percent FiO2 at 40 L/m. Patient ate breakfast and lunch today and tolerated this. He denied any diarrhea. Ramirez catheter was placed because of urinary retention. This is draining pink. No new complaints of. Right upper extremity swelling has decreased over the last 48 hours. Labs showed hemoglobin fairly stable. Chest x-ray with bilateral infiltrates which is stable compared to the past 2 days. Continue current treatment and we will continue DO NOT RESUSCITATE. LAVERNE SUNSHINE Apr 05, 2018 18:33
[2018-04-05 20:00] VITALS: BP 142/75
[2018-04-05] MEDS: MELATONIN 3 MG TABLET PO SCH (21:17)
[2018-04-05] MEDS: aCETylcysteine 20% (MUCOMYST) 30ML SOLN VIAL INH SCH ×2 (22:15→23:00)
[2018-04-06] VITALS: BP 167/72
[2018-04-06] MEDS: RT-ALBUTEROL/IPRATROPIUM 3 ML (DUONEB) VIAL INH SCH ×6 (02:05→22:12)
[2018-04-06 04:00] VITALS: BP 144/75
[2018-04-06 04:49] LABS: INR 1.4 (0.8-1.4); PROTHROMBIN TIME PATIENT 16.7 SEC (12.2-14.7)
[2018-04-06 04:58] LABS: ALANINE AMINOTRANSFERASE 18 U/L (0-55); ALBUMIN 2.3 GM/DL (3.2-4.5); ALKALINE PHOSPHATASE 140 U/L (40-136); BILIRUBIN,TOTAL 0.6 MG/DL (0.1-1.0); BUN/CREATININE RATIO 29; CALCIUM 8.3 MG/DL (8.5-10.1); CARBON DIOXIDE 22 MMOL/L (21-32); CHLORIDE 107 MMOL/L (98-107); CREATININE SERUM 1.01 MG/DL (0.60-1.30); GFR ESTIMATED > 60; GLUCOSE 138 MG/DL (70-105); POTASSIUM 4.5 MMOL/L (3.6-5.0); SODIUM 141 MMOL/L (135-145)
[2018-04-06] MEDS: HYDROcodone/APAP 5 MG/325 MG (LORTAB) TAB PO SCH ×4 (05:25→21:33)
[2018-04-06] MEDS: PANTOPRAZOLE 40 MG (PROTONIX) TAB PO SCH (05:25)
[2018-04-06] MEDS: CATHETER FLUSH 10 ML SYR IV SCH ×3 (05:28→22:25)
[2018-04-06] MEDS: MEROPENEM 500 MG in NS (IVPB) 100 ML IV SCH (05:28)
[2018-04-06] MEDS: methylPREDNISolone 125 MG (Solu-MEDROL) VIAL IVP SCH ×3 (05:28→21:36)
[2018-04-06] MEDS: NS IV 1000 ML 1,000 ML IV SCH (05:35)
[2018-04-06] MEDS: aCETylcysteine 20% (MUCOMYST) 30ML SOLN VIAL INH SCH ×2 (06:14→22:12)
[2018-04-06] MEDS: HEParin 1000 UNIT/ML (10ML VIAL) FOR BOLUS IV SCH (06:26)
--- NOTE | 2018-04-06 07:27 | Pulmonary Progress Note ---
Sepsis Event Evaluation Height, Weight, BMI Height: 5'9.00" Weight: 151lbs. 8.0oz. 68.359292dw; 22.4 BMI Method:Stated Exam Exam Vital Signs Date Time Temp Pulse Resp B/P (MAP) Pulse Ox O2 Delivery O2 Flow Rate FiO2 04/06/18 06:14 93 Vapotherm 40.00 100 04/06/18 04:00 96.5 99 18 144/75 (98) 93 Vapotherm 100.00 40.00 04/06/18 02:05 96 Vapotherm 40.00 100 04/06/18 00:00 97.4 89 16 167/72 (103) 94 Vapotherm 100.00 40.00 04/05/18 22:30 90 Vapotherm 40.00 100 04/05/18 20:00 Vapotherm 40.00 04/05/18 20:00 97.8 102 18 142/75 (97) 96 Vapotherm 100.00 40.00 04/05/18 19:52 88 Vapotherm 40.00 100 04/05/18 16:00 97.6 94 20 154/68 (96) 89 Vapotherm 100.00 40.00 04/05/18 15:19 96 Vapotherm 40.00 100 04/05/18 12:00 97.1 102 18 118/71 (87) 95 Vapotherm 100.00 40.00 04/05/18 11:26 93 Vapotherm 40.00 100 04/05/18 08:00 100 NIV Bilevel 40.00 04/05/18 08:00 96.5 100 18 127/75 (92) 97 Vapotherm 100.00 40.00 04/05/18 07:38 102 27 97 60.00 I & O 04/06/18 07:00 Intake Total 2760 ml Output Total 1250 ml Balance 1510 ml Height & Weight Height: 5'9.00" Weight: 151lbs. 8.0oz. 68.330360oh; 22.4 BMI Method:Stated General Appearance: Anxious, Chronically ill, Moderate Distress (due to tachypnea) HEENT: PERRL/EOMI, Normal ENT Inspection, Pharynx Normal Neck: Full Range of Motion, Non Tender, Supple Respiratory: Decreased Breath Sounds, Wheezing Cardiovascular: Tachycardia Capillary Refill: Less Than 3 Seconds Gastrointestinal: normal bowel sounds, non tender, soft Extremity: Pedal Edema, Other (right arm edema) Neurologic/Psychiatric: Alert, Disoriented Skin: Normal Color, Warm/Dry Results Lab Laboratory Tests 04/05/18 05:15 04/06/18 04:15 Assessment/Plan Assessment/Plan Diffuse bilateral infiltrates pneumonia vs lymphangitic spread -s/p bronchoscopy - vancomycin, fluconazole and Merrem (pt is allergic to Amoxil) -Solumedrol SOB with hypoxia -Oxygen Mucous plugging -Start SVNs with duoneb and Mucomyst Atelectasis Acute PE and RUE DVT from PICC line -Continue anticoagulation per Dr. Lawson recs 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 Lawson is following Pt has advanced disease. Overall prognosis is very poor. Pt is still requiring high flow oxygen at 100%. Will give Lasix 60mg IV x 1. Comfort care should be strongly considered. GODFREY WILL DO Apr 06, 2018 07:27
[2018-04-06] MEDS ORDERED: KCL 10 MEQ TAB (MICRO K) PO NR (07:30)
[2018-04-06] MEDS ORDERED: FUROSEMIDE 40 MG/4 ML INJ (LASIX) IVP NR (07:30)
--- NOTE | 2018-04-06 08:43 | Progress Note ---
Objective Exam Last Set of Vital Signs Vital Signs Date Time Temp Pulse Resp B/P (MAP) Pulse Ox O2 Delivery O2 Flow Rate FiO2 04/06/18 06:14 93 Vapotherm 40.00 100 04/06/18 04:00 96.5 99 18 144/75 (98) Capillary Refill : Less Than 3 Seconds I&O Intake and Output 04/06/18 00:00 Intake Total 1760 ml Output Total 1750 ml Balance 10 ml Intake Oral 1660 ml IV Total 100 ml Output Urine Total 1750 ml Results Lab Laboratory Tests 04/05/18 13:39: Activated Partial Thromboplast Time 94H 04/05/18 22:05: Activated Partial Thromboplast Time 84H 04/06/18 04:15: Activated Partial Thromboplast Time 59H, Prothrombin Time 16.7H, INR Comment 1.4 , Sodium Level 141, Potassium Level 4.5, Chloride Level 107, Carbon Dioxide Level 22, Anion Gap 12, Blood Urea Nitrogen 29H, Creatinine 1.01, Estimat Glomerular Filtration Rate > 60, BUN/Creatinine Ratio 29, Glucose Level 138H, Calcium Level 8.3L, Corrected Calcium 9.7, Total Bilirubin 0.6, Aspartate Amino Transf (AST/SGOT) 20, Alanine Aminotransferase (ALT/SGPT) 18, Alkaline Phosphatase 140H, B-Type Natriuretic Peptide 714.7H, Total Protein 6.0L, Albumin 2.3L Microbiology 03/30/18 Mycobacterial Culture - Preliminary, Resulted Assessment/Plan Assessment/Plan Assess & Plan/Chief Complaint PULMONARY EMBOLISM RIGHT UPPER EXTREMITY DEEP VEIN THROMBOSIS PNEUMONIA ANEMIA BLADDER CANCER HYPERTENSION ATRIAL FIBRILLATION PULMONARY EMBOLISM DUE TO RIGHT UPPER EXTREMITY DEEP VEIN THROMBOSIS - PT ON HEPARIN DRIP - CONTINUE WITH TREATMENT, DEFER TO DR. SUNSHINE. PNEUMONIA - STATUS POST BRONCHOSCOPY WITH IMPROVED SYMPTOMS. ANEMIA - STABLE - WILL NEED TO CLOSELY MONITOR SYMPTOMS WE HAD TO TAKE HIM OFF OF ANTICOAGULATION DUE TO PERSISTENT HEMATURIA. BLADDER CANCER - DEFER TO DR. SUNSHINE LUNG CANCER - DEFER TO DR. SUNSHINE HYPERTENSION - RESUME DILTIAZEM ATRIAL FIBRILLATION - RESUME DILTIAZEM. Clinical Quality Measures DVT/VTE Risk/Contraindication: Risk Factor Score Per Nursin RFS Level Per Nursing on Admit: 4+=Very High CAREY CHOWDHURY MD Apr 06, 2018 08:43
[2018-04-06 08:50] VITALS: BP 154/85
[2018-04-06] MEDS: ALPRAZolam 0.5 MG (XANAX) TAB PO PRN ×2 (09:42→21:36)
[2018-04-06] MEDS: DILTIAZEM 120 MG (CARDIZEM CD) CAP PO SCH (09:42)
[2018-04-06] MEDS: MAGNESIUM OXIDE (MAG-OX)400 MG TAB PO SCH ×2 (09:42→21:35)
[2018-04-06] MEDS: MAGIC MOUTHWASH (ADULT) PO SCH ×16 (10:06→21:37)
--- NOTE | 2018-04-06 11:23 | Cardiology Progress Note ---
Cardiology SOAP Progress Note Subjective: Continued to be short of breath. Objective: I&O/Vital Signs 04/06/18 04/06/18 04/06/18 04/06/18 04:00 06:14 08:50 09:45 Temp 96.5 96.3 Pulse 99 119 Resp 18 26 B/P (MAP) 144/75 (98) 154/85 (108) Pulse Ox 93 93 97 O2 Delivery Vapotherm Vapotherm NIV Bilevel Vapotherm O2 Flow Rate 100.00 40.00 40.00 40.00 FiO2 100 04/06/18 04/06/18 11:16 12:09 Temp 96.9 Pulse 93 Resp 20 B/P (MAP) 158/74 (102) Pulse Ox 91 97 O2 Delivery Vapotherm NIV Bilevel O2 Flow Rate 40.00 FiO2 100 04/05/18 23:59 Intake Total 1660 ml Output Total 1250 ml Balance 410 ml Weight (Pounds): 151 Weight (Ounces): 8.0 Weight (Calculated Kilograms): 68.589327 Constitutional: appears stated age, AAO x 3, apparent distress, well-developed , well-nourished Respiratory: accessory muscle use, respiratory distress, chest is bilaterally symmetric, other (Poor air entry bilaterally.) Cardiovascular: regular rate-rhythm, S1 and S2, systolic murmur Gastrointestional: No tender, No soft, No round, No distended, No pulsatile mass, No organomegaly, No guarding, No rebound, No tenderness, No hernia, No mass, No audible bowel sounds, No abnormal bowel sounds, No abdominal bruits, No spleenomegaly, No other Extremities: No normal range of motion, No non-tender, No normal inspection, No pedal edema, No calf tenderness, No normal capillary refill, No pelvis stable , No calf tenderness, No inflammation, No pedal edema, No slow capillary refill , No swelling, No other, No abrasion, No clubbing, No cyanosis, No ecchymosis, No laceration, No no lower extremity edema bilateral, No significant edema, No tenderness, No wound Neurologic/Psychiatric: no motor/sensory deficits, alert, normal mood/affect, oriented x 3, power is 5/5 both on sides Skin: No normal color, No warm/dry, No cyanosis, No cool, No diaphoresis, No damp, No ecchymosis, No jaundice, No mottled, No pallor, No rash, No tattoos/ piercings, No ulcerations, No rash on exposed areas, No ulcerations on exposed areas, No other Results/Procedures: Labs Laboratory Tests 04/05/18 22:05: Activated Partial Thromboplast Time 84H 04/06/18 04:15: Activated Partial Thromboplast Time 59H, Prothrombin Time 16.7H, INR Comment 1.4 , Sodium Level 141, Potassium Level 4.5, Chloride Level 107, Carbon Dioxide Level 22, Anion Gap 12, Blood Urea Nitrogen 29H, Creatinine 1.01, Estimat Glomerular Filtration Rate > 60, BUN/Creatinine Ratio 29, Glucose Level 138H, Calcium Level 8.3L, Corrected Calcium 9.7, Total Bilirubin 0.6, Aspartate Amino Transf (AST/SGOT) 20, Alanine Aminotransferase (ALT/SGPT) 18, Alkaline Phosphatase 140H, B-Type Natriuretic Peptide 714.7H, Total Protein 6.0L, Albumin 2.3L 04/06/18 12:15: Activated Partial Thromboplast Time 162*H Microbiology 03/30/18 Mycobacterial Culture - Preliminary, Resulted A/P: Assessment/Dx: Bladder cancer, squamous cell lung cancer, Hematuria, Anemia, Right upper extremity DVT, Possible right PE, Worsening Respiratory failure, CAD/CABG, Paroxysmal atrial fibrillation Plan: Bladder cancer, squamous cell lung cancer, deferred to Dr. Borja. Hematuria, and mild hematuria. Anemia, Right upper extremity DVT, on heparin. Possible right PE, and heparin. Respiratory failure, improved initially; however and respiratory distress. Sepsis due to lung source; likely fungal involvement as well. Very slow improvement. status post bronchoscopy by Dr. Cruz. Numerous mucous plugs were removed. CAD/CABG, no antiplatelet therapy due to anemia and bleeding. Paroxysmal atrial fibrillation, regular pulse. Likely sinus rhythm. On Channel Anusha. No Oral Anticoagulation Due To Significant Hematuria Previously and Anemia. Oral Anticoagulation with Eliquis or Xarelto Is Recommended for DVT/PE/ Paroxysmal Atrial Fibrillation; However Starting Oral Anticoagulation, the Risk of Bleeding Needs to Be Considered. For Now Continue Heparin. Patient has decided to pursue palliative care and comfort measures only. Thank you for your consultation. Please call me if you have any questions. Liban Brandon MD, FACP, FACC, FSCAI, FHRS, CCDS Interventional Cardiology Cardiac Electrophysiology Vascular Medicine and Endovascular Interventions Charlse BRANDON MD Apr 06, 2018 11:23 am
[2018-04-06] MEDS: NYSTATIN ORAL SUSP 5 ML UDC PO SCH ×2 (11:49→17:59)
[2018-04-06] MEDS: FLUCONAZOLE 200 MG/100 ML 50 ML, EMPTY IV BAG (PVC) 1 EA IV SCH ×2 (11:57)
[2018-04-06 12:09] VITALS: BP 158/74
--- NOTE | 2018-04-06 14:47 | Progress Note-Standard ---
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 The patient completed 6 weeks of radiation therapy with weekly chemotherapy. Treatment held because of the significant hematuria. Patient is gradually recovering from the side effects. Admitted with the right upper extremity swelling and evidence of DVT as well as the right lower lobe PE. CT angiogram with bilateral infiltrates/atelectasis. Dr. Cruz did a bronchoscopy with washings bilaterally. Patient had evidence of significant mucus plugging which was washed out. He is on broad-spectrum antibiotics with meropenem and vancomycin. Preliminary cultures showing abundant Gram positive cocci identified as Corynebacterium striatum. He is continuing on heparin with no significant bleeding. Patient is awake but very weak. Had a bad night with significant shortness of breath. This morning he indicated to Dr. Ferro that he is tired and wants to be kept comfortable. Antibiotics and antifungal agents have been stopped. Continue heparin for now as Lovenox would cause more discomfort. Patient and his family understands the implications of this and wanted to continue with best supportive care. They are unable to care for him at home. Continue DO NOT RESUSCITATE. LAVERNE SUNSHINE Apr 06, 2018 14:46
[2018-04-06 16:00] VITALS: BP 138/71
[2018-04-06] MEDS: HEParin DRIP 25000 UNIT/500ML 500 ML IV SCH (19:42)
[2018-04-06 20:28] VITALS: BP 127/57
[2018-04-06] MEDS: MELATONIN 3 MG TABLET PO SCH (21:36)
[2018-04-07 00:13] VITALS: BP 112/59
[2018-04-07] MEDS: NYSTATIN ORAL SUSP 5 ML UDC PO SCH ×2 (00:28→05:21)
[2018-04-07] MEDS: RT-ALBUTEROL/IPRATROPIUM 3 ML (DUONEB) VIAL INH SCH ×3 (02:16→10:14)
[2018-04-07 03:03] LABS: INR 1.4 (0.8-1.4); PROTHROMBIN TIME PATIENT 16.9 SEC (12.2-14.7)
[2018-04-07] MEDS: methylPREDNISolone 125 MG (Solu-MEDROL) VIAL IVP SCH (05:21)
[2018-04-07] MEDS: HYDROcodone/APAP 5 MG/325 MG (LORTAB) TAB PO SCH ×4 (05:22→23:06)
[2018-04-07] MEDS: CATHETER FLUSH 10 ML SYR IV SCH ×3 (06:09→20:47)
[2018-04-07] MEDS: aCETylcysteine 20% (MUCOMYST) 30ML SOLN VIAL INH SCH (07:09)
--- NOTE | 2018-04-07 07:25 | Pulmonary Progress Note ---
Subjective Time Seen by a Provider: 11:21 Subjective/Events-last exam Pt is requiring 100% via Vapotherm and still Sp02 only 88%. He has increased WOB. is at bedside. Sepsis Event Evaluation Height, Weight, BMI Height: 5'9.00" Weight: 151lbs. 8.0oz. 68.761363jf; 22.4 BMI Method:Stated Exam Exam Vital Signs Date Time Temp Pulse Resp B/P (MAP) Pulse Ox O2 Delivery O2 Flow Rate FiO2 04/07/18 07:09 89 Vapotherm 40.00 100 04/07/18 02:16 80 Vapotherm 40.00 100 04/07/18 00:13 97.0 123 20 112/59 (76) 95 Vapotherm 100.00 40.00 04/06/18 22:12 97 Vapotherm 40.00 100 04/06/18 20:28 96.3 106 18 127/57 (80) 96 Vapotherm 100.00 40.00 04/06/18 20:15 100 Vapotherm 40.00 04/06/18 18:30 94 Vapotherm 40.00 100 04/06/18 16:00 97.0 97 22 138/71 (93) 100 Vapotherm 100.00 40.00 04/06/18 14:25 84 Vapotherm 40.00 100 04/06/18 12:09 96.9 93 20 158/74 (102) 97 NIV Bilevel 04/06/18 11:16 91 Vapotherm 40.00 100 04/06/18 09:45 Vapotherm 40.00 04/06/18 08:50 96.3 119 26 154/85 (108) 97 NIV Bilevel I & O 04/07/18 07:00 Intake Total 1680 ml Output Total 2900 ml Balance -1220 ml Height & Weight Height: 5'9.00" Weight: 151lbs. 8.0oz. 68.186889pa; 22.4 BMI Method:Stated General Appearance: Anxious, Chronically ill, Moderate Distress (due to tachypnea) HEENT: PERRL/EOMI, Normal ENT Inspection, Pharynx Normal Neck: Full Range of Motion, Non Tender, Supple Respiratory: Decreased Breath Sounds, Wheezing Cardiovascular: Tachycardia Capillary Refill: Less Than 3 Seconds Gastrointestinal: normal bowel sounds, non tender, soft Extremity: Pedal Edema, Other (right arm edema) Neurologic/Psychiatric: Alert, Disoriented Skin: Normal Color, Warm/Dry Results Lab Laboratory Tests 04/06/18 04:15 04/07/18 02:30 Assessment/Plan Assessment/Plan Diffuse bilateral infiltrates pneumonia vs lymphangitic spread -s/p bronchoscopy - vancomycin, fluconazole and Merrem (pt is allergic to Amoxil) -Solumedrol SOB with hypoxia -Oxygen Mucous plugging -Start SVNs with duoneb and Mucomyst Atelectasis Acute PE and RUE DVT from PICC line Hx squamous cell lung cancer and bladder cancer PT continues to decline and is becoming more SOB and weakness. Pt has advanced disease he is still requiring high flow oxygen at 100% however his Sp02 is only 88%. Prognosis is very poor.. I spoke with patient and regarding current medical condition and options including comfort care only. Pt voices his understanding of his declining condition. When asking patient about comfort care only he states that is what he wants. states she just wants to follow his wishes and she also understands what he is saying. Both patient and are in agreement with comfort care only. I also touched base with Dr. Ferro who also agrees and has also been talking to patient and about comfort care. I am going to place comfort care order set in place. Total time spent with patient is 60min. Advance Care discuss with: patient, family member (s) End of Life Care: Comfort Measures, Pallative Care, Hospice (Hospital), Hospice Care (Home) Advance Care Discussion: initiate discussion, clarifying prognosis, identified end-of-life goals, developed treatment plan Time spent on discussion(mins): 60 GODFREY WILL DO Apr 07, 2018 07:25
[2018-04-07 08:00] VITALS: BP 115/54
[2018-04-07] MEDS ORDERED: LORazepam INJ 2 MG/ML (ATIVAN) VIAL IV PRN (08:00)
[2018-04-07] MEDS: morphine INJ 4 MG/ML 1 ML (VIAL/SYRINGE) IVP PRN ×3 (09:10→13:49)
[2018-04-07] MEDS: MAGNESIUM OXIDE (MAG-OX)400 MG TAB PO SCH ×2 (09:10→20:47)
--- NOTE | 2018-04-07 09:38 | Progress Note ---
Objective Exam Last Set of Vital Signs Vital Signs Date Time Temp Pulse Resp B/P (MAP) Pulse Ox O2 Delivery O2 Flow Rate FiO2 04/07/18 08:00 97.1 79 22 115/54 (74) 94 Vapotherm 100.00 40.00 04/07/18 07:09 100 Capillary Refill : Less Than 3 Seconds I&O Intake and Output 04/07/18 00:00 Intake Total 2830 ml Output Total 3200 ml Balance -370 ml Intake Oral 1180 ml IV Total 1650 ml Output Urine Total 3200 ml # Bowel Movements 1 Results Lab Laboratory Tests 04/06/18 12:15: Activated Partial Thromboplast Time 162*H 04/06/18 20:14: Activated Partial Thromboplast Time 68H 04/07/18 02:30: Activated Partial Thromboplast Time 137*H, Platelet Count 295, Prothrombin Time 16.9H, INR Comment 1.4 Microbiology 03/30/18 Mycobacterial Culture - Preliminary, Resulted Assessment/Plan Assessment/Plan Assess & Plan/Chief Complaint PULMONARY EMBOLISM RIGHT UPPER EXTREMITY DEEP VEIN THROMBOSIS PNEUMONIA ANEMIA BLADDER CANCER HYPERTENSION ATRIAL FIBRILLATION PULMONARY EMBOLISM DUE TO RIGHT UPPER EXTREMITY DEEP VEIN THROMBOSIS - PT ON HEPARIN DRIP - CONTINUE WITH TREATMENT, DEFER TO DR. SUNSHINE. PNEUMONIA - STATUS POST BRONCHOSCOPY WITH IMPROVED SYMPTOMS. ANEMIA - STABLE - WILL NEED TO CLOSELY MONITOR SYMPTOMS WE HAD TO TAKE HIM OFF OF ANTICOAGULATION DUE TO PERSISTENT HEMATURIA. BLADDER CANCER - DEFER TO DR. SUNSHINE LUNG CANCER - DEFER TO DR. SUNSHINE HYPERTENSION - RESUME DILTIAZEM ATRIAL FIBRILLATION - RESUME DILTIAZEM. Clinical Quality Measures DVT/VTE Risk/Contraindication: Risk Factor Score Per Nursin RFS Level Per Nursing on Admit: 4+=Very High CAREY CHOWDHRUY MD Apr 07, 2018 09:38
[2018-04-07] MEDS ORDERED: SALIVA STIMULANT MOUTH SPRAY (BIOTENE) 1.5 OZ MM PRN (10:15)
[2018-04-07] MEDS: ALPRAZolam 0.5 MG (XANAX) TAB PO PRN ×2 (14:30→23:06)
[2018-04-07] MEDS ORDERED: KETOROLAC 30 MG/ML VIAL IVP NR (15:15)
[2018-04-07] MEDS ORDERED: NS 1000 ML IV BAG IV SCH (15:15)
[2018-04-07] MEDS ORDERED: morphine PCA 100 MG/100 ML BAG IV PRN (15:15)
[2018-04-07] MEDS ORDERED: NS IV 500 ML 500 ML IV SCH (15:30)
--- NOTE | 2018-04-07 17:24 | Progress Note-Standard ---
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 The patient completed 6 weeks of radiation therapy with weekly chemotherapy. Treatment held because of the significant hematuria. Admitted with the right upper extremity swelling and evidence of DVT as well as the right lower lobe PE. CT angiogram with bilateral infiltrates /atelectasis. Dr. Cruz did a bronchoscopy with washings bilaterally with evidence of significant mucus plugging. He was on broad-spectrum antibiotics with meropenem and vancomycin which was stopped on 04/06/2018. Preliminary cultures showing abundant Gram positive cocci identified as Corynebacterium striatum. He was on heparin with no significant bleeding which was stopped earlier today. Patient is awake but very weak. Does not appear in any acute distress. He is continuing on Vapotherm. Morphine [employer] at 1 mg/h continuous infusion with 1 mg bolus every 30 minutes is being started. Earlier today he was receiving morphine for milligram bolus every 3-4 hours. His overall prognosis is poor. Patient and his family has decided to proceed with best supportive care. We'll adjust his medications for comfort. Continue DO NOT RESUSCITATE. LAVERNE SUNSHINE Apr 07, 2018 5:24 pm
[2018-04-07] MEDS: MELATONIN 3 MG TABLET PO SCH (20:47)
[2018-04-08] MEDS: HYDROcodone/APAP 5 MG/325 MG (LORTAB) TAB PO SCH (05:44)
[2018-04-08] MEDS: CATHETER FLUSH 10 ML SYR IV SCH (05:53)
[2018-04-08] MEDS ORDERED: LORazepam INJ 2 MG/ML (ATIVAN) VIAL IV SCH (08:00)
[2018-04-08] MEDS: MAGNESIUM OXIDE (MAG-OX)400 MG TAB PO SCH (08:06)
[2018-04-08] MEDS: LORazepam INJ 2 MG/ML (ATIVAN) VIAL IV SCH ×2 (08:08→10:00)
--- NOTE | 2018-04-08 08:23 | Pulmonary Progress Note ---
Subjective Time Seen by a Provider: 08:23 Subjective/Events-last exam PT is anxious and complains of SOB. Sepsis Event Evaluation Height, Weight, BMI Height: 5'9.00" Weight: 151lbs. 8.0oz. 68.559692pp; 22.4 BMI Method:Stated Exam Exam Vital Signs Date Time Temp Pulse Resp B/P (MAP) Pulse Ox O2 Delivery O2 Flow Rate FiO2 04/08/18 02:22 90 Vapotherm 30.00 100 04/07/18 23:05 89 Vapotherm 20.00 100 04/07/18 19:50 Vapotherm 20.00 04/07/18 18:36 89 Vapotherm 20.00 100 04/07/18 14:34 Vapotherm 20.00 100 04/07/18 10:14 88 Vapotherm 30.00 100 04/07/18 08:45 100 Vapotherm 40.00 I & O 04/08/18 07:00 Intake Total 1280 ml Output Total 1200 ml Balance 80 ml Height & Weight Height: 5'9.00" Weight: 151lbs. 8.0oz. 68.420431by; 22.4 BMI Method:Stated General Appearance: Anxious, Chronically ill, Moderate Distress (due to tachypnea) HEENT: PERRL/EOMI, Normal ENT Inspection, Pharynx Normal Neck: Full Range of Motion, Non Tender, Supple Respiratory: Decreased Breath Sounds, Wheezing Cardiovascular: Tachycardia Capillary Refill: Less Than 3 Seconds Gastrointestinal: normal bowel sounds, non tender, soft Extremity: Pedal Edema, Other (right arm edema) Neurologic/Psychiatric: Alert, Disoriented Skin: Normal Color, Warm/Dry Results Lab Laboratory Tests 04/07/18 02:30 Assessment/Plan Assessment/Plan Diffuse bilateral infiltrates pneumonia vs lymphangitic spread SOB with hypoxia Mucous plugging Atelectasis Acute PE and RUE DVT from PICC line 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 He had an episode last night where he became very SOB after NC fell off. It took him a long time to recover even after placing oxygen back on. He stated he has never been so scared. I discussed with Dr. Ferro who agrees pt is not comfortable enough especilly since even this morning he appears anxious with increased WOB. After discussion with Dr. Ferro I am going to increase Morphine pump from 1 -2 mg and also schedule Ativan every 4hrs. I spent 30min discussing patient with the , RN, and Dr. Ferro. GODFREY WILL DO Apr 08, 2018 08:23
--- NOTE | 2018-04-08 10:40 | Progress Note-Standard ---
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 The patient completed 6 weeks of radiation therapy with weekly chemotherapy. Treatment held because of the significant hematuria. Admitted with the right upper extremity swelling and evidence of DVT as well as the right lower lobe PE. CT angiogram with bilateral infiltrates /atelectasis. Dr. Cruz did a bronchoscopy with washings bilaterally with evidence of significant mucus plugging. He was on broad-spectrum antibiotics with meropenem and vancomycin which was stopped on 04/06/2018. Preliminary cultures showing abundant Gram positive cocci identified as Corynebacterium striatum. He was on heparin with no significant bleeding which was stopped on 04/07/2018. Patient had an episode of panic attack and shortness of breath earlier. He required Ativan and morphine boluses and is resting at this time. Basal rate of morphine LABEL SEWER is increased to 2 mg/h with 2 mg boluses every 5 minutes as needed. He is weaker and somnolent. present at bedside. He is terminal and we will continue best supportive care. Continue DO NOT RESUSCITATE. Dr. Lloyd covering this weekend. LAVERNE SUNSHINE Apr 08, 2018 10:40
--- NOTE | 2018-04-08 11:43 | Discharge Summary ---
Diagnosis/Chief Complaint Date of Admission Mar 29, 2018 at 14:45 Date of Discharge Reason Hospital Visit PT IS A 77 Y/O MALE WHO IS KNOWN TO ME FROM CLINIC. HE PRESENTED TO [facility] WITH COMPLAINT OF SEVERE SWELLING OF THE RIGHT ARM AND SHORTNESS OF BREATH. HE WAS FOUND TO HAVE A RIGHT UPPER EXTREMITY DEEP VEIN THROMBOSIS AND ACUTE PULMONARY EMBOLISM. THIS MORNING HE STATES THAT HE IS FEELING A LOT BETTER. HE HAD BRONCHOSCOPY WITH SUCTIONING AND HE FEELS BETTER THAT ON ADMISSION. HE DENIES URINARY ISSUES/HEMATURIA. Discharge Summary Discharge Physical Examination Allergies: Coded Allergies: amoxicillin (Verified Allergy, Intermediate, HIVES, 03/04/18) nitroglycerin (Verified Allergy, Mild, DECREASED BP, 03/04/18) Vitals & I&Os Vital Signs Date Time Temp Pulse Resp B/P (MAP) Pulse Ox O2 Delivery O2 Flow Rate FiO2 04/08/18 06:50 90 Vapotherm 30.00 100 04/07/18 08:00 97.1 79 22 115/54 (74) Discharge Instructions to patient/family Please see electronic discharge instructions given to patient. Discharge Medications Reviewed and agree with Discharge Medication list on patient's Discharge Instruction sheet Clinical Quality Measures DVT/VTE Risk/Contraindication: Risk Factor Score Per Nursin RFS Level Per Nursing on Admit: 4+=Very High CAREY CHOWDHURY MD Apr 08, 2018 11:43
== END 2018-04-08 12:45 | disposition expired | DRG 314 ==
LOC: 4TH 14:45
PROVIDERS: ADMIT Internal Medicine Hematology & Oncology; ATTEND Internal Medicine Hematology & Oncology
PROC: 0BC78ZZ Extirpation of Matter from Left Main Bronchus, Via Natural or Artificial Opening Endoscopic (ICD-10-PCS; 2018-03-30)
PROC: 0BC38ZZ Extirpation of Matter from Right Main Bronchus, Via Natural or Artificial Opening Endoscopic (ICD-10-PCS; principal; 2018-03-30 07:40)
DX: T82.868A Thrombosis due to vascular prosthetic devices, implants and grafts, initial encounter (principal); I82.621 Acute embolism and thrombosis of deep veins of right upper extremity; T82.818A Embolism due to vascular prosthetic devices, implants and grafts, initial encounter; I26.99 Other pulmonary embolism without acute cor pulmonale; J96.00 Acute respiratory failure, unspecified whether with hypoxia or hypercapnia; J18.9 Pneumonia, unspecified organism; B48.8 Other specified mycoses; Z66 Do not resuscitate; Z51.5 Encounter for palliative care; C34.11 Malignant neoplasm of upper lobe, right bronchus or lung; C77.1 Secondary and unspecified malignant neoplasm of intrathoracic lymph nodes; C67.9 Malignant neoplasm of bladder, unspecified; J98.11 Atelectasis; J98.09 Other diseases of bronchus, not elsewhere classified; R06.03 Acute respiratory distress; J20.8 Acute bronchitis due to other specified organisms; I35.0 Nonrheumatic aortic (valve) stenosis; I25.10 Atherosclerotic heart disease of native coronary artery without angina pectoris; I48.0 Paroxysmal atrial fibrillation; E86.0 Dehydration; I27.20 Pulmonary hypertension, unspecified; R56.9 Unspecified convulsions; R33.9 Retention of urine, unspecified; E78.00 Pure hypercholesterolemia, unspecified; I10 Essential (primary) hypertension; G62.9 Polyneuropathy, unspecified; K44.9 Diaphragmatic hernia without obstruction or gangrene; M19.91 Primary osteoarthritis, unspecified site; Z87.891 Personal history of nicotine dependence; Z79.01 Long term (current) use of anticoagulants
CPT/HCPCS: 36415; 71045; 71275; 80048; 80053; 80202; 82274; 83880; 85007; 85025; 85027; 85049; 85610; 85730; 87015; 87070; 87077; 87101; 87116; 87205; 87206; 88112; 88305; 88312; 94640; 94660; 94760

== ENCOUNTER 2018-03-29 16:04 | Outpatient (RCR) | payer MEDICARE, OTHER ==
[2018-02-07 09:47] LABS: BASOPHILS % (AUTO) 1 % (0-10); EOSINOPHILS % (AUTO) 1 % (0-10); HEMATOCRIT 26 % (40-54); HEMOGLOBIN 9.2 G/DL (13.3-17.7); LYMPHOCYTES # (AUTO) 0.2 X 10^3 (1.0-4.0); LYMPHOCYTES % (AUTO) 8 % (12-44); MEAN CORPUSCULAR HEMOGLOBIN 27 PG (25-34); MEAN CORPUSCULAR HGB CONC 35 G/DL (32-36); MEAN CORPUSCULAR VOLUME 77 FL (80-99); MEAN PLATELET VOLUME 10.7 FL (7.4-10.4); MONOCYTES # (AUTO) 0.3 X 10^3 (0.0-1.0); MONOCYTES % (AUTO) 14 % (0-12); NEUTROPHILS # (AUTO) 1.5 X 10^3 (1.8-7.8); NEUTROPHILS % (AUTO) 76 % (42-75); PLATELET COUNT 209 10^3/uL (130-400); RED BLOOD COUNT 3.42 10^6/uL (4.35-5.85); RED CELL DISTRIBUTION WIDTH 17.8 % (10.0-14.5); WHITE BLOOD COUNT 1.9 10^3/uL (4.3-11.0)
[2018-02-07 10:06] LABS: ALBUMIN 3.4 GM/DL (3.2-4.5); CALCIUM 7.9 MG/DL (8.5-10.1); CREATININE SERUM 2.08 MG/DL (0.60-1.30); MAGNESIUM 1.2 MG/DL (1.8-2.4); POTASSIUM 3.1 MMOL/L (3.6-5.0); TOTAL PROTEIN 6.5 GM/DL (6.4-8.2)
[2018-02-14 10:24] LABS: BASOPHILS % (AUTO) 0 % (0-10); EOSINOPHILS % (AUTO) 0 % (0-10); HEMATOCRIT 29 % (40-54); HEMOGLOBIN 9.9 G/DL (13.3-17.7); LYMPHOCYTES # (AUTO) 0.3 X 10^3 (1.0-4.0); LYMPHOCYTES % (AUTO) 6 % (12-44); MEAN CORPUSCULAR HEMOGLOBIN 28 PG (25-34); MEAN CORPUSCULAR HGB CONC 34 G/DL (32-36); MEAN CORPUSCULAR VOLUME 81 FL (80-99); MEAN PLATELET VOLUME 10.3 FL (7.4-10.4); MONOCYTES # (AUTO) 0.4 X 10^3 (0.0-1.0); MONOCYTES % (AUTO) 8 % (0-12); NEUTROPHILS # (AUTO) 4.2 X 10^3 (1.8-7.8); NEUTROPHILS % (AUTO) 85 % (42-75); PLATELET COUNT 295 10^3/uL (130-400); RED BLOOD COUNT 3.57 10^6/uL (4.35-5.85); RED CELL DISTRIBUTION WIDTH 18.7 % (10.0-14.5); WHITE BLOOD COUNT 4.9 10^3/uL (4.3-11.0)
[2018-02-14 10:44] LABS: CALCIUM 7.5 MG/DL (8.5-10.1); CREATININE SERUM 1.38 MG/DL (0.60-1.30); POTASSIUM 4.5 MMOL/L (3.6-5.0)
[2018-02-18 09:02] LABS: CALCIUM 7.7 MG/DL (8.5-10.1); CREATININE SERUM 1.53 MG/DL (0.60-1.30); POTASSIUM 3.2 MMOL/L (3.6-5.0)
[2018-02-21 08:41] LABS: BASOPHILS % (AUTO) 0 % (0-10); EOSINOPHILS % (AUTO) 1 % (0-10); HEMATOCRIT 26 % (40-54); HEMOGLOBIN 8.7 G/DL (13.3-17.7); LYMPHOCYTES # (AUTO) 0.2 X 10^3 (1.0-4.0); LYMPHOCYTES % (AUTO) 6 % (12-44); MEAN CORPUSCULAR HEMOGLOBIN 27 PG (25-34); MEAN CORPUSCULAR HGB CONC 33 G/DL (32-36); MEAN CORPUSCULAR VOLUME 82 FL (80-99); MEAN PLATELET VOLUME 9.7 FL (7.4-10.4); MONOCYTES # (AUTO) 0.3 X 10^3 (0.0-1.0); MONOCYTES % (AUTO) 7 % (0-12); NEUTROPHILS # (AUTO) 3.4 X 10^3 (1.8-7.8); NEUTROPHILS % (AUTO) 85 % (42-75); PLATELET COUNT 305 10^3/uL (130-400); RED CELL DISTRIBUTION WIDTH 19.3 % (10.0-14.5); WHITE BLOOD COUNT 3.9 10^3/uL (4.3-11.0)
[2018-02-21 09:10] LABS: BUN/CREATININE RATIO 16; CALCIUM 8.4 MG/DL (8.5-10.1); CARBON DIOXIDE 24 MMOL/L (21-32); CHLORIDE 106 MMOL/L (98-107); CREATININE SERUM 1.08 MG/DL (0.60-1.30); GFR ESTIMATED > 60; GLUCOSE 120 MG/DL (70-105); MAGNESIUM 1.2 MG/DL (1.8-2.4); POTASSIUM 3.7 MMOL/L (3.6-5.0); SODIUM 141 MMOL/L (135-145)
[2018-02-21 09:26] LABS: BILIRUBIN,DIRECT 0.5 MG/DL (0.0-0.3); BILIRUBIN,INDIRECT 0.4 MG/DL; BILIRUBIN,TOTAL 0.9 MG/DL (0.1-1.0)
[2018-02-24 08:42] LABS: BASOPHILS % (AUTO) 0 % (0-10); EOSINOPHILS # (AUTO) 0.1 10^3/uL (0.0-0.3); EOSINOPHILS % (AUTO) 2 % (0-10); HEMATOCRIT 27 % (40-54); HEMOGLOBIN 8.7 G/DL (13.3-17.7); LYMPHOCYTES # (AUTO) 0.2 X 10^3 (1.0-4.0); LYMPHOCYTES % (AUTO) 5 % (12-44); MEAN CORPUSCULAR HEMOGLOBIN 27 PG (25-34); MEAN CORPUSCULAR HGB CONC 33 G/DL (32-36); MEAN CORPUSCULAR VOLUME 82 FL (80-99); MEAN PLATELET VOLUME 10.3 FL (7.4-10.4); MONOCYTES # (AUTO) 0.1 X 10^3 (0.0-1.0); MONOCYTES % (AUTO) 3 % (0-12); NEUTROPHILS # (AUTO) 2.8 X 10^3 (1.8-7.8); NEUTROPHILS % (AUTO) 90 % (42-75); PLATELET COUNT 290 10^3/uL (130-400); RED BLOOD COUNT 3.26 10^6/uL (4.35-5.85); RED CELL DISTRIBUTION WIDTH 19.7 % (10.0-14.5); WHITE BLOOD COUNT 3.1 10^3/uL (4.3-11.0)
[2018-02-24 09:03] LABS: CALCIUM 8.2 MG/DL (8.5-10.1); CREATININE SERUM 1.35 MG/DL (0.60-1.30); MAGNESIUM 1.2 MG/DL (1.8-2.4)
[2018-02-28 08:30] LABS: BASOPHILS % (AUTO) 0 % (0-10); EOSINOPHILS # (AUTO) 0.1 10^3/uL (0.0-0.3); EOSINOPHILS % (AUTO) 4 % (0-10); HEMATOCRIT 26 % (40-54); HEMOGLOBIN 8.4 G/DL (13.3-17.7); LYMPHOCYTES # (AUTO) 0.3 X 10^3 (1.0-4.0); LYMPHOCYTES % (AUTO) 9 % (12-44); MEAN CORPUSCULAR HEMOGLOBIN 27 PG (25-34); MEAN CORPUSCULAR HGB CONC 33 G/DL (32-36); MEAN CORPUSCULAR VOLUME 82 FL (80-99); MEAN PLATELET VOLUME 9.6 FL (7.4-10.4); MONOCYTES # (AUTO) 0.3 X 10^3 (0.0-1.0); MONOCYTES % (AUTO) 11 % (0-12); NEUTROPHILS # (AUTO) 2.1 X 10^3 (1.8-7.8); NEUTROPHILS % (AUTO) 75 % (42-75); PLATELET COUNT 296 10^3/uL (130-400); RED BLOOD COUNT 3.12 10^6/uL (4.35-5.85); RED CELL DISTRIBUTION WIDTH 19.8 % (10.0-14.5); WHITE BLOOD COUNT 2.8 10^3/uL (4.3-11.0)
[2018-02-28 08:47] LABS: CALCIUM 8.3 MG/DL (8.5-10.1); CREATININE SERUM 1.49 MG/DL (0.60-1.30); POTASSIUM 3.6 MMOL/L (3.6-5.0)
[2018-03-03 08:25] LABS: BASOPHILS % (AUTO) 1 % (0-10); EOSINOPHILS % (AUTO) 1 % (0-10); HEMATOCRIT 26 % (40-54); HEMOGLOBIN 8.5 G/DL (13.3-17.7); LYMPHOCYTES # (AUTO) 0.2 X 10^3 (1.0-4.0); LYMPHOCYTES % (AUTO) 10 % (12-44); MEAN CORPUSCULAR HEMOGLOBIN 27 PG (25-34); MEAN CORPUSCULAR HGB CONC 33 G/DL (32-36); MEAN CORPUSCULAR VOLUME 83 FL (80-99); MONOCYTES # (AUTO) 0.1 X 10^3 (0.0-1.0); MONOCYTES % (AUTO) 5 % (0-12); NEUTROPHILS # (AUTO) 1.9 X 10^3 (1.8-7.8); NEUTROPHILS % (AUTO) 85 % (42-75); PLATELET COUNT 275 10^3/uL (130-400); RED BLOOD COUNT 3.15 10^6/uL (4.35-5.85); WHITE BLOOD COUNT 2.2 10^3/uL (4.3-11.0)
[2018-03-03 08:42] LABS: ALBUMIN 3.1 GM/DL (3.2-4.5); BILIRUBIN,TOTAL 1.1 MG/DL (0.1-1.0); CALCIUM 8.3 MG/DL (8.5-10.1); CREATININE SERUM 1.38 MG/DL (0.60-1.30); MAGNESIUM 1.1 MG/DL (1.8-2.4); POTASSIUM 4.2 MMOL/L (3.6-5.0); TOTAL PROTEIN 6.1 GM/DL (6.4-8.2)
[2018-03-15 17:02] LABS: BASOPHILS % (AUTO) 0 % (0-10); EOSINOPHILS % (AUTO) 0 % (0-10); HEMATOCRIT 34 % (40-54); HEMOGLOBIN 11.4 G/DL (13.3-17.7); LYMPHOCYTES # (AUTO) 0.8 X 10^3 (1.0-4.0); LYMPHOCYTES % (AUTO) 12 % (12-44); MEAN CORPUSCULAR HEMOGLOBIN 29 PG (25-34); MEAN CORPUSCULAR HGB CONC 33 G/DL (32-36); MEAN CORPUSCULAR VOLUME 88 FL (80-99); MEAN PLATELET VOLUME 10.2 FL (7.4-10.4); MONOCYTES # (AUTO) 0.4 X 10^3 (0.0-1.0); MONOCYTES % (AUTO) 7 % (0-12); NEUTROPHILS # (AUTO) 5.2 X 10^3 (1.8-7.8); NEUTROPHILS % (AUTO) 81 % (42-75); PLATELET COUNT 234 10^3/uL (130-400); RED BLOOD COUNT 3.91 10^6/uL (4.35-5.85); RED CELL DISTRIBUTION WIDTH 17.7 % (10.0-14.5); WHITE BLOOD COUNT 6.5 10^3/uL (4.3-11.0)
[2018-03-15 17:29] LABS: ALANINE AMINOTRANSFERASE 21 U/L (0-55); ALBUMIN 2.9 GM/DL (3.2-4.5); ALKALINE PHOSPHATASE 132 U/L (40-136); BUN/CREATININE RATIO 14; CALCIUM 8.2 MG/DL (8.5-10.1); CARBON DIOXIDE 20 MMOL/L (21-32); CHLORIDE 106 MMOL/L (98-107); CREATININE SERUM 1.07 MG/DL (0.60-1.30); GFR ESTIMATED > 60; GLUCOSE 100 MG/DL (70-105); POTASSIUM 3.4 MMOL/L (3.6-5.0); SODIUM 139 MMOL/L (135-145); TOTAL PROTEIN 6.1 GM/DL (6.4-8.2)
[2018-03-23 14:43] LABS: BASOPHILS % (AUTO) 0 % (0-10); EOSINOPHILS % (AUTO) 1 % (0-10); HEMATOCRIT 31 % (40-54); HEMOGLOBIN 9.9 G/DL (13.3-17.7); LYMPHOCYTES # (AUTO) 0.9 X 10^3 (1.0-4.0); LYMPHOCYTES % (AUTO) 15 % (12-44); MEAN CORPUSCULAR HEMOGLOBIN 29 PG (25-34); MEAN CORPUSCULAR HGB CONC 32 G/DL (32-36); MEAN CORPUSCULAR VOLUME 89 FL (80-99); MONOCYTES # (AUTO) 0.4 X 10^3 (0.0-1.0); MONOCYTES % (AUTO) 6 % (0-12); NEUTROPHILS # (AUTO) 4.6 X 10^3 (1.8-7.8); NEUTROPHILS % (AUTO) 78 % (42-75); PLATELET COUNT 281 10^3/uL (130-400); RED BLOOD COUNT 3.44 10^6/uL (4.35-5.85); RED CELL DISTRIBUTION WIDTH 18.4 % (10.0-14.5); WHITE BLOOD COUNT 5.9 10^3/uL (4.3-11.0)
[2018-03-23 15:06] LABS: ALANINE AMINOTRANSFERASE 13 U/L (0-55); ALBUMIN 2.6 GM/DL (3.2-4.5); ALKALINE PHOSPHATASE 142 U/L (40-136); BILIRUBIN,TOTAL 0.8 MG/DL (0.1-1.0); BUN/CREATININE RATIO 15; CALCIUM 8.5 MG/DL (8.5-10.1); CARBON DIOXIDE 27 MMOL/L (21-32); CHLORIDE 103 MMOL/L (98-107); CREATININE SERUM 1.13 MG/DL (0.60-1.30); GFR ESTIMATED > 60; GLUCOSE 113 MG/DL (70-105); MAGNESIUM 1.1 MG/DL (1.8-2.4); POTASSIUM 3.8 MMOL/L (3.6-5.0); SODIUM 139 MMOL/L (135-145); TOTAL PROTEIN 6.1 GM/DL (6.4-8.2)
[~2018-03-29] VITALS: Ht 180.3 cm; Wt 78.5 kg
[2018-03-29 11:51] LABS: BASOPHILS % (AUTO) 0 % (0-10); EOSINOPHILS % (AUTO) 0 % (0-10); HEMATOCRIT 32 % (40-54); HEMOGLOBIN 10.7 G/DL (13.3-17.7); LYMPHOCYTES # (AUTO) 0.7 X 10^3 (1.0-4.0); LYMPHOCYTES % (AUTO) 10 % (12-44); MEAN CORPUSCULAR HEMOGLOBIN 30 PG (25-34); MEAN CORPUSCULAR HGB CONC 33 G/DL (32-36); MEAN CORPUSCULAR VOLUME 90 FL (80-99); MONOCYTES # (AUTO) 0.1 X 10^3 (0.0-1.0); MONOCYTES % (AUTO) 2 % (0-12); NEUTROPHILS # (AUTO) 6.7 X 10^3 (1.8-7.8); NEUTROPHILS % (AUTO) 88 % (42-75); PLATELET COUNT 265 10^3/uL (130-400); RED BLOOD COUNT 3.62 10^6/uL (4.35-5.85); RED CELL DISTRIBUTION WIDTH 18.6 % (10.0-14.5); WHITE BLOOD COUNT 7.6 10^3/uL (4.3-11.0)
[2018-03-29 12:10] LABS: CALCIUM 8.7 MG/DL (8.5-10.1); CREATININE SERUM 1.43 MG/DL (0.60-1.30); MAGNESIUM 1.5 MG/DL (1.8-2.4); POTASSIUM 3.8 MMOL/L (3.6-5.0)
[~2018-03-29 16:04] MED LIST changes: +CARBOPLATIN 160 MG in D5W 50 ML IV(CANCER CTR) 50 ML IV SCH; +CARBOPLATIN IV SCH; +D5W IV SCH; +FAMOTIDINE 20MG/2ML IV (CANCER CTR) IV SCH; +HYDR-3812 PO; +MAGN400T39 PO; +MAGNESIUM SULFATE 3 GM in NS (IVPB) CANCER CENTER 100 ML IV ONE; +MAGNESIUM SULFATE IV ONE; +NS IV 1000 ML (CANCER CTR) IV SCH; +NS IV ONE; +PACLITAXEL 80 MG in NORMAL SALINE (CANCER CENTER) 250 ML IV SCH; +PACLITAXEL 90 MG in NORMAL SALINE (CANCER CENTER) 250 ML IV SCH; +PALONOSETRON HCL 0.25 MG, DEXAMETHASONE INJECTION 10 MG in NS (IVPB) CANCER CENTER 50 ML IV SCH; +POTASSIUM CHL IV ONE; +[UNRECOGNIZED DRUG - OTHER] IV ONE; +[UNRECOGNIZED DRUG - OTHER] IV ONE; +[UNRECOGNIZED DRUG - OTHER] IV ONE; +[UNRECOGNIZED DRUG - OTHER] IV ONE; +diphenhydrAMINE 25 MG TAB (BENADRYL) CANCER CENTER PO SCH
[2018-03-30] MEDS ORDERED: NS IV 500 ML 500 ML ONE (07:35)
[2018-03-30] MEDS ORDERED: MIDAZOLAM 2 MG/2 ML (VERSED) VIAL ONE (07:36)
[2018-03-30] MEDS ORDERED: fentaNYL INJECTION 100 MCG/2 ML AMP ONE (07:36)
== END 2018-04-08 | disposition home or self-care (01) ==
LOC: ONC 16:04
PROVIDERS: ATTEND Internal Medicine Hematology & Oncology
DX: Z51.11 Encounter for antineoplastic chemotherapy (principal); C67.2 Malignant neoplasm of lateral wall of bladder; C34.11 Malignant neoplasm of upper lobe, right bronchus or lung; C77.1 Secondary and unspecified malignant neoplasm of intrathoracic lymph nodes; D50.0 Iron deficiency anemia secondary to blood loss (chronic); I25.10 Atherosclerotic heart disease of native coronary artery without angina pectoris; I11.0 Hypertensive heart disease with heart failure; I50.30 Unspecified diastolic (congestive) heart failure; I48.2 Chronic atrial fibrillation; I27.20 Pulmonary hypertension, unspecified; Z80.0 Family history of malignant neoplasm of digestive organs; Z82.49 Family history of ischemic heart disease and other diseases of the circulatory system; Z87.19 Personal history of other diseases of the digestive system; Z92.21 Personal history of antineoplastic chemotherapy; Z88.0 Allergy status to penicillin; Z79.01 Long term (current) use of anticoagulants; Z95.1 Presence of aortocoronary bypass graft; Z90.89 Acquired absence of other organs; Z79.899 Other long term (current) drug therapy
CPT/HCPCS: 36415; 36591; 77307; 77334; 77336; 77385; 77386; 77417; 80048; 80053; 80076; 83735; 85025; 96360; 96361; 96365; 96366; 96368; 96374; 96375; 96413; 96417; 99213

== ENCOUNTER → 2018-03-29 | Outpatient (CLI) | payer MEDICARE, OTHER ==
[~2018-03-29] MED LIST changes: +BETA15CR37 TP; +BO30SU PR; +DILT120C63 PO; +HYDR-3812 PO; +MAGN400T39 PO; +MELA10TA2 PO; +PANT20TA2 PO; +VALS80TA31 PO
--- NOTE | 2018-03-29 12:36 | Diagnostic Imaging Report ---
EXAMINATION: Right upper extremity venous Doppler. INDICATION: Arm edema. FINDINGS: Spectral and color-flow imaging of the deep venous system of the right upper extremity was performed. There are no prior studies available for comparison. There is extensive thrombosis of the deep venous system of the right upper extremity. Specifically, there is thrombus formation in the subclavian, axillary, and basilic veins. The remainder of the deep venous system shows fairly good blood flow and compressibility. IMPRESSION: 1. There is thrombosis of the subclavian, axillary, and basilic veins. 2. These results were called to Carrie at the [facility] by our sonologist. Critical finding Dictated by: Dictated on workstation # [id number]
== END ==
LOC: RAD 09:52
PROVIDERS: ATTEND Internal Medicine Hematology & Oncology
DX: I82.B11 Acute embolism and thrombosis of right subclavian vein (principal); I82.A11 Acute embolism and thrombosis of right axillary vein; I82.611 Acute embolism and thrombosis of superficial veins of right upper extremity

== ENCOUNTER → 2018-03-29 | Outpatient (CLI) | payer MEDICARE, OTHER ==
[~2018-03-29] MED LIST changes: +IOHEXOL 350 MG/ML 150 ML (OMNIPAQUE 350) VIAL IV ONE; +NS 250 ML (IVPB) BAG IV ONE; +RECEIVED CONTRAST (Hold Metformin) IV SCH
--- NOTE | 2018-03-29 13:39 | Diagnostic Imaging Report ---
PROCEDURE: CT angiography of the chest with contrast. TECHNIQUE: Multiple contiguous axial images were obtained through the chest after uneventful bolus administration of intravenous contrast. 2D reconstructed CTA MIP acquisitions were also performed. INDICATION: Bladder cancer, squamous cell cancer of the lung. FINDINGS: The PET/CT exam performed on 01/04/2018 noted a 3.6 cm hypermetabolic mass in the right upper lobe. That mass now measures 2.5 cm in maximum dimension. Along the superior margin of the mass, a 2.1 cm cavity has developed. The previous study also identified a hypermetabolic mass in the right hilum measuring approximately 3.6 cm. The mass now measures 3.3 cm. However, in the interval since the prior exam, a 2.4 cm subcarinal node has developed. No new adenopathy is noted otherwise. As seen on the prior exam, there are chronic pulmonary changes evident. Since the previous study, diffuse ground-glass mosaic-like densities have developed in both lungs, particularly the right lung. These findings may be secondary to pulmonary edema, pneumonia, atelectasis, or a combination of all three. Given the diffuse density throughout the right lung it would be unlikely that these findings are related to radiation pneumonitis. Also, in the interval since the prior exam, a linear defect has developed in one of the pulmonary arteries to the right lower lobe. This would be consistent with a pulmonary embolus. There is no other evidence for a pulmonary embolus. The aorta is stable in size. The heart is enlarged, and there are dense coronary artery calcifications throughout the LAD. The thyroid gland is unremarkable. The sections through the upper abdomen fail to show any sign of an acute abnormality. The calcification within the tail of the pancreas seen previously is again evident. Cholelithiasis is also again noted. The bone windows show no sign of a fracture or of a new destructive lesion. IMPRESSION: 1. The mass in the right upper lobe seen previously has diminished in size, but a new area of cavitation has developed adjacent to the mass. 2. The right hilar mass is essentially no different, but there now appears to be a 2.3 cm node in the subcarinal region. 3. Diffuse ground-glass densities have developed throughout both lungs, particularly on the right. These findings may be related to pulmonary edema, pneumonia, or atelectasis. 4. The defect in the pulmonary artery to the right lower lobe does suggest a pulmonary embolus. 5. These results were discussed with Dr. Lawson at the time of this dictation.. Critical finding Dictated by: Dictated on workstation # [id number]
== END ==
LOC: RAD 12:14
PROVIDERS: ATTEND Internal Medicine Hematology & Oncology
DX: C67.9 Malignant neoplasm of bladder, unspecified (principal); C78.00 Secondary malignant neoplasm of unspecified lung; J98.4 Other disorders of lung; R91.8 Other nonspecific abnormal finding of lung field; I82.621 Acute embolism and thrombosis of deep veins of right upper extremity
CPT/HCPCS: 71275